=== PATIENT | male | born 1950 | race Caucasian/White ===

== ENCOUNTER 2018-04-29 13:15 | Inpatient (IN) | payer MEDICARE, OTHER, SELFPAY ==
[2018-04-29] VITALS (10 sets, daily range): BP systolic 139–195; BP diastolic 71–118; PULSE 77–106; RESP 16–20; TEMP 36.7–37.1; O2SAT 97–100; BMI 25.0; BMI 25.2
--- NOTE | 2018-04-29 13:49 | DI.RAD.S_ITS ---
PROCEDURE: XR CHEST 1V INDICATIONS: chest pain TECHNIQUE: One view of the chest was acquired. COMPARISON: [facility], CHEST 1 VIEW, 02/02/2018, 17:12. [facility], CHEST 1 VIEW, 12/29/2017, 17:36. [facility], CHEST 1 VIEW, 01/01/2017, 10:48. FINDINGS: Surgical changes and devices: None. Lungs and pleura: No pleural effusions or pneumothorax. Lungs are clear. Mediastinum: Mediastinal contours appear normal. Heart size is normal. Bones and chest wall: No suspicious bony lesions. Overlying soft tissues appear unremarkable. IMPRESSION: Source of chest pain is not seen. Dictated by: Uzair Parra M.D. on 04/29/2018 at 14:18 Approved by: Uzair Parra M.D. on 04/29/2018 at 14:18
--- NOTE | 2018-04-29 13:50 | ED.WEAKNESS ---
HPI - Weakness General Chief complaint: Extremity Problem,Nontraumatic Stated complaint: Muscle cramps, SOB Time Seen by Provider: 04/29/18 13:22 Source: patient and EMS Mode of arrival: EMS Limitations: no limitations History of Present Illness HPI Narrative: 67-year-old male presents to the emergency department today with a chief complaint of muscle cramps and generalized fatigue with weakness that started last night. He was here under similar circumstances a few months ago and transferred to [facility] for non ST elevated [place] and acute kidney injury. He denies any fever or chills but admits to nausea without vomiting. MD Complaint: generalized weakness and lack of energy Onset (ago): hour(s) Duration: constant Location: generalized Migration: none Severity: moderate Related Data Home Medications Medication Instructions Recorded Confirmed oxybutynin chloride 15 mg PO QDAY #0 03/13/17 04/29/18 cholecalciferol (vitamin D3) 1,000 unit PO DAILY #0 08/13/17 04/29/18 [Vitamin D3] aspirin 81 mg PO QDAY #0 01/03/18 04/29/18 amlodipine 10 mg PO DAILY #0 03/04/18 04/29/18 ascorbic acid (vitamin C) 500 mg PO QDAY #0 03/04/18 04/29/18 Glucose: Test Strips 1 strip MISCELLANEOUS DIRECTED 04/29/18 04/29/18 glipizide 2.5 mg PO BID 04/29/18 04/29/18 losartan [Cozaar] 50 mg PO QDAY 04/29/18 04/29/18 Previous Rx's Medication Instructions Recorded duloxetine [Cymbalta] 30 mg PO BID #180 cap 10/25/17 gabapentin [Neurontin] 2 tab PO TID #180 tab 01/20/18 fluticasone 1 spray INTRANASAL BID #16 gm 03/04/18 isosorbide mononitrate 60 mg PO QAM #30 tab 03/04/18 metoprolol succinate ER 200 mg 200 mg PO QDAY #30 tab 04/04/18 tablet,extended release 24 hr Allergies Allergy/AdvReac Type Severity Reaction Status Date / Time latex Allergy Mild RASH/ITCH Verified 04/29/18 13:27 (tape) pollen extracts Allergy Mild SINUS AND Verified 04/29/18 13:27 [POLLEN EXTRACTS] CHEST CONGESTION adhesive tape [ADHESIVE TAPE] AdvReac Unknown ITCHY Verified 04/29/18 13:27 Review of Systems Review of Systems All systems reviewed & are unremarkable except as noted in HPI and below Constitutional Denies chills, Denies fever(s), Denies lethargy and Denies weakness Eyes Denies change in vision, Denies eye discharge, Denies irritation and Denies loss of vision ENT Ears, Nose, Mouth, and Throat: Denies change in voice, Denies neck pain and Denies sore throat Cardiovascular Reports chest pain, Reports chest pain at rest, Denies irregular heart rhythm, Denies lightheadedness, Denies palpitations, Reports dyspnea, Reports dyspnea on exertion and Denies orthopnea Respiratory Denies cough, Reports dyspnea, Reports dyspnea on exertion and Denies wheezing Gastrointestinal Gastrointestinal: Denies abdominal pain, Denies change in bowel habits, Denies diarrhea, Denies nausea and Denies vomiting Genitourinary Denies hematuria, Denies flank pain, Denies urinary incontinence and Denies urinary urgency Musculoskeletal Reports muscle cramps and Denies neck pain Integumentary/Breasts Denies pruritus, Denies erythema, Denies rash and Denies wounds Neurologic Denies confusion, Denies loss of vision and Denies weakness Psychiatric Denies anxiety, Denies confusion, Denies depression, Denies homicidal ideation and Denies suicidal ideation Endocrine Denies palpitations Hematologic/Lymphatic Denies easy bruising Allergic/Immunologic Denies wheezing PFSH Medical History Anxiety (Chronic Unknown) BPH (benign prostatic hyperplasia) (Chronic Unknown) Chronic pain syndrome (Chronic Unknown) Chronic renal insufficiency (Chronic Unknown) Coronary artery disease (Chronic Unknown) Depression (Chronic Unknown) Diabetes (Chronic Unknown) GERD (gastroesophageal reflux disease) (Chronic Unknown) Hyperlipemia (Chronic Unknown) Hypertension (Chronic Unknown) Low back pain (Chronic Unknown) Peripheral neuropathy (Chronic Unknown) Rheumatoid arthritis (Chronic Unknown) History of ETOH abuse (Resolved Unknown) Surgical History History of back surgery (Resolved ~2012) Status post hernia repair Status post knee surgery Family History Mother Stroke Father Cancer Social History Smoking Status: Current every day smoker Exam Narrative Exam Narrative: 67-year-old male in moderate distress, cramping and pain Initial Vital Signs Initial Vital Signs: Vital Signs Temperature 98.2 F 04/29/18 13:24 Pulse Rate 104 H 04/29/18 13:24 Respiratory Rate 20 04/29/18 13:24 Blood Pressure 160/116 H 04/29/18 13:24 Pulse Oximetry 98 04/29/18 13:24 Const General: cooperative, well developed and acute distress Nutritional Appearance: well nourished Orientation: alert, awake, oriented x3 and not confused [facility] Head: normocephalic and atraumatic Ears: external ears normal and TM's normal bilaterally Nose: external nose normal and No nasal discharge Face and sinus: sinuses nontender, face symmetric, no sinus tenderness and No dry mucous membranes Mouth: oral mucosae normal and moist mucous membranes Teeth and gingiva: dentition normal Throat: tonsils normal and uvula midline Neck Neck: normal visual inspection, trachea midline, No lymphadenopathy, No midline deformity and No JVD Lymphatic: No lymphedema Resp Effort & Inspection: normal respiratory effort, able to speak in complete sentences, no respiratory distress and no use of accessory muscles Auscultation: clear to auscultation bilaterally, no rales, no rhonchi and no wheezes GI Inspection: non-distended Palpation: soft, no hepatosplenomegaly, No guarding, No pulsatile mass and No tender Auscultation: normal bowel sounds Back/Spine/Pelvis Back: No CVA tenderness Cervical Spine: cervical ROM normal and No pain with cervical ROM Thoracic/Lumbar Spine: thoracic and lumbar spine normal to inspection Skin General: no rashes or lesions noted, No jaundice and No petechiae Neuro General: alert, oriented x3, gait normal and no focal motor deficits Speech: speech normal Psych Appearance: well kempt Mental Status: mental status grossly normal Attitude: cooperative Thought Content: normal and suicidality Judgment: judgment good Scores HEART Score Heart Score history: Slightly Suspicious Heart Score EKG: Non-Specific repolarization disturbance Heart Score Age: > or = 65 years old Heart Score risk factors: > 3 risk factors or hx of atherosclerotic disease Heart Score troponin: > 3 times normal limit Heart Score Total: 7 Course Orders Ordered: ED Orders 04/29/18 13:49 XR chest 1V Stat EKG-12 Lead Stat 04/29/18 14:05 Complete Blood Count AUTO DIFF Stat Comprehensive Metabolic Panel Stat Lipase Stat T4 Thyroxine Stat Thyroid Stimulating Hormone Stat Troponin with CK Cardiac Panel Stat Heparin Sodium/Dextrose (Heparin Drip) 25,000 unit in 500 mls @ 20.14 mls/hr IV CONT MINA; Protocol Last Admin: 04/29/18 15:02 Dose: Nitroglycerin (Nitrostat) 0.4 mg SL [id number] PRN PRN Reason: Chest Pain Last Admin: 04/29/18 14:56 Dose: 0.4 mg Discontinued Medications Aspirin (Aspirin Chew) 324 mg PO NOW ONE Stop: 04/29/18 13:49 Last Admin: 04/29/18 13:58 Dose: 324 mg Heparin Sodium (Porcine) (Heparin) 5,000 unit 60 unit/kg (5000 unit) IV NOW ONE Stop: 04/29/18 14:47 Last Admin: 04/29/18 14:57 Dose: 5,000 unit Sodium Chloride (Normal Saline 0.9%) 1,000 mls @ 1,000 mls/hr IV BOLUS ONE Stop: 04/29/18 14:49 Last Admin: 04/29/18 13:58 Dose: 1,000 mls/hr Metoprolol Tartrate (Lopressor) 50 mg PO NOW ONE Stop: 04/29/18 14:47 Last Admin: 04/29/18 15:09 Dose: Metoprolol Tartrate (Lopressor) 50 mg PO NOW ONE Stop: 04/29/18 15:05 Last Admin: 04/29/18 15:06 Dose: 50 mg Consultations Consultation #1: Dr. Odom at [facility] Cardiology returns page. Description of HPI, EKG, labs not suggestive of ischmia as etiology of symptoms Consultation #2: Dr. Santos happy to accept patient into OBS Vital Signs - 8 hr 04/29/18 13:24 04/29/18 13:40 04/29/18 14:23 Temperature 98.2 F Pulse Rate 104 H 104 H 100 H Respiratory Rate 20 19 18 Blood Pressure 160/116 H Blood Pressure [Left Arm] 155/79 H 156/71 H Pulse Oximetry 98 100 99 04/29/18 14:56 04/29/18 15:07 04/29/18 15:33 Temperature Pulse Rate 103 H 106 H 102 H Respiratory Rate 20 Blood Pressure 161/72 H 139/73 H Blood Pressure [Left Arm] 195/82 H Pulse Oximetry 100 MDM - Weakness Differential Diagnosis Differential diagnosis: Likely acute myocardial infarction, anemia, hypoglycemia, hypothyroidism, rhabdomyolysis, sepsis, dehydration and other Medical Records Attestation: I reviewed the patient's medical records. Lab Data Attestation: I reviewed the patient's lab results. Result diagrams: 04/29/18 14:05 04/29/18 14:05 Lab Results 04/29/18 04/29/18 04/29/18 Range/Units 14:05 14:05 14:05 WBC 13.2 H (4.5-11.0) X10^3/uL RBC 4.54 (4.5-5.9) X10^6/uL Hgb 15.0 (13.5-17.5) g/dL Hct 42.6 (41-53) % MCV 93.6 (80-100) fL MCH 33.1 (26-34) PG MCHC 35.3 (30-36) % RDW 14.2 (11.6-14.8) % Plt Count 176 (150-400) X10^3/uL Neut % (Auto) 69.6 (50-75) % Lymph % (Auto) 21.9 L (25-40) % [place] % (Auto) 8.2 (3-14) % Eos % (Auto) 0.0 L (2-4) % Baso % (Auto) 0.3 (0-2) % Neut # (Auto) 9200 H (1320-5702) /uL Sodium 132 L (137-145) mmol/L Potassium 4.5 (3.4-5.1) mmol/L Chloride 96 L (98-107) mmol/L Carbon Dioxide 18 L (22-32) mmol/L BUN 42 H (9-20) mg/dL Creatinine 2.20 H (0.66-1.25) mg/dL Estimated GFR 30.2 L (>60) mL/min BUN/Creatinine Ratio 19.1 (6-22) Glucose 121 H (80-110) mg/dL Calcium 8.8 (8.4-10.2) mg/dL Total Bilirubin 2.1 H (0.2-1.3) mg/dL AST 92 H (17-59) IU/L ALT 34 (21-72) IU/L Alkaline Phosphatase 94 (38-126) U/L Total Creatine Kinase 2176 H (55-170) U/L Troponin I 0.187 H* (0.01-0.034) ng/mL Total Protein 7.6 (6.3-8.2) g/dL Albumin 4.5 (3.5-5.0) g/dL Globulin 3.1 (1.7-4.1) g/dL Albumin/Globulin Ratio 1.5 (1.0-2.8) Lipase 76 (23-300) U/L TSH 1.45 (0.47-4.68) uIU/mL Thyroxine (T4) 7.28 (5.5-11.0) ug/dL Imaging Data Chest x-ray: Attestation: I personally reviewed and interpreted this imaging study as follows: Radiologist's impression: PROCEDURE: XR CHEST 1V INDICATIONS: chest pain TECHNIQUE: One view of the chest was acquired. COMPARISON: [facility], CHEST 1 VIEW, 02/02/2018, 17:12. [facility], CHEST 1 VIEW, 12/29/2017, 17:36. [facility], CHEST 1 VIEW, 01/01/2017, 10:48. FINDINGS: Surgical changes and devices: None. Lungs and pleura: No pleural effusions or pneumothorax. Lungs are clear. Mediastinum: Mediastinal contours appear normal. Heart size is normal. Bones and chest wall: No suspicious bony lesions. Overlying soft tissues appear unremarkable. IMPRESSION: Source of chest pain is not seen. Dictated by: Uzair Parra M.D. on 04/29/2018 at 14:18 Approved by: Uzair Parra M.D. on 04/29/2018 at 14:18 ECG Data Attestation: I personally reviewed and interpreted this ECG as follows: Prior ECG tracings: available for review Interpretation: Sinus tachycardia at 1:04 a.m.. Large peaked septal T-waves. No ectopy MDM Narrative Medical decision making narrative: Patient presents under similar symptoms as his last admission, with head to toe muscle cramps and generalized weakness, however bleeding into that admission he had nausea, vomiting and diarrhea but denies any gastroenteritis this time around. His pain is sharp, right anterior and reproducible. Discussion with Cardiology and we share opinion that story suggests etiology other than cardiac event Discharge Plan Departure Patient Disposition: Admitted As Inpatient Clinical Impression: Acute kidney injury, Elevated troponin Admit Date/Time: 04/29/18 16:05 Admit Provider: Lebron Santos
--- NOTE | 2018-04-29 13:53 | ED_ITS ---
HPI - Weakness General Chief complaint: Extremity Problem,Nontraumatic Stated complaint: Muscle cramps, SOB Time Seen by Provider: 04/29/18 13:22 Source: patient and EMS Mode of arrival: EMS Limitations: no limitations History of Present Illness HPI Narrative: 67-year-old male presents to the emergency department today with a chief complaint of muscle cramps and generalized fatigue with weakness that started last night. He was here under similar circumstances a few months ago and transferred to [facility] for non ST elevated [place] and acute kidney injury. He denies any fever or chills but admits to nausea without vomiting. MD Complaint: generalized weakness and lack of energy Onset (ago): hour(s) Duration: constant Location: generalized Migration: none Severity: moderate Related Data Home Medications Medication Instructions Recorded Confirmed oxybutynin chloride 15 mg PO QDAY #0 03/13/17 04/29/18 cholecalciferol (vitamin D3) 1,000 unit PO DAILY #0 08/13/17 04/29/18 [Vitamin D3] aspirin 81 mg PO QDAY #0 01/03/18 04/29/18 amlodipine 10 mg PO DAILY #0 03/04/18 04/29/18 ascorbic acid (vitamin C) 500 mg PO QDAY #0 03/04/18 04/29/18 Glucose: Test Strips 1 strip MISCELLANEOUS DIRECTED 04/29/18 04/29/18 glipizide 2.5 mg PO BID 04/29/18 04/29/18 losartan [Cozaar] 50 mg PO QDAY 04/29/18 04/29/18 Previous Rx's Medication Instructions Recorded duloxetine [Cymbalta] 30 mg PO BID #180 cap 10/25/17 gabapentin [Neurontin] 2 tab PO TID #180 tab 01/20/18 fluticasone 1 spray INTRANASAL BID #16 gm 03/04/18 isosorbide mononitrate 60 mg PO QAM #30 tab 03/04/18 metoprolol succinate ER 200 mg 200 mg PO QDAY #30 tab 04/04/18 tablet,extended release 24 hr Allergies Allergy/AdvReac Type Severity Reaction Status Date / Time latex Allergy Mild RASH/ITCH Verified 04/29/18 13:27 (tape) pollen extracts Allergy Mild SINUS AND Verified 04/29/18 13:27 [POLLEN EXTRACTS] CHEST CONGESTION adhesive tape [ADHESIVE TAPE] AdvReac Unknown ITCHY Verified 04/29/18 13:27 Review of Systems Review of Systems All systems reviewed & are unremarkable except as noted in HPI and below Constitutional Denies chills, Denies fever(s), Denies lethargy and Denies weakness Eyes Denies change in vision, Denies eye discharge, Denies irritation and Denies loss of vision ENT Ears, Nose, Mouth, and Throat: Denies change in voice, Denies neck pain and Denies sore throat Cardiovascular Reports chest pain, Reports chest pain at rest, Denies irregular heart rhythm, Denies lightheadedness, Denies palpitations, Reports dyspnea, Reports dyspnea on exertion and Denies orthopnea Respiratory Denies cough, Reports dyspnea, Reports dyspnea on exertion and Denies wheezing Gastrointestinal Gastrointestinal: Denies abdominal pain, Denies change in bowel habits, Denies diarrhea, Denies nausea and Denies vomiting Genitourinary Denies hematuria, Denies flank pain, Denies urinary incontinence and Denies urinary urgency Musculoskeletal Reports muscle cramps and Denies neck pain Integumentary/Breasts Denies pruritus, Denies erythema, Denies rash and Denies wounds Neurologic Denies confusion, Denies loss of vision and Denies weakness Psychiatric Denies anxiety, Denies confusion, Denies depression, Denies homicidal ideation and Denies suicidal ideation Endocrine Denies palpitations Hematologic/Lymphatic Denies easy bruising Allergic/Immunologic Denies wheezing PFSH Medical History Anxiety (Chronic Unknown) BPH (benign prostatic hyperplasia) (Chronic Unknown) Chronic pain syndrome (Chronic Unknown) Chronic renal insufficiency (Chronic Unknown) Coronary artery disease (Chronic Unknown) Depression (Chronic Unknown) Diabetes (Chronic Unknown) GERD (gastroesophageal reflux disease) (Chronic Unknown) Hyperlipemia (Chronic Unknown) Hypertension (Chronic Unknown) Low back pain (Chronic Unknown) Peripheral neuropathy (Chronic Unknown) Rheumatoid arthritis (Chronic Unknown) History of ETOH abuse (Resolved Unknown) Surgical History History of back surgery (Resolved ~2012) Status post hernia repair Status post knee surgery Family History Mother Stroke Father Cancer Social History Smoking Status: Current every day smoker Exam Narrative Exam Narrative: 67-year-old male in moderate distress, cramping and pain Initial Vital Signs Initial Vital Signs: Vital Signs Temperature 98.2 F 04/29/18 13:24 Pulse Rate 104 H 04/29/18 13:24 Respiratory Rate 20 04/29/18 13:24 Blood Pressure 160/116 H 04/29/18 13:24 Pulse Oximetry 98 04/29/18 13:24 Const General: cooperative, well developed and acute distress Nutritional Appearance: well nourished Orientation: alert, awake, oriented x3 and not confused [facility] Head: normocephalic and atraumatic Ears: external ears normal and TM's normal bilaterally Nose: external nose normal and No nasal discharge Face and sinus: sinuses nontender, face symmetric, no sinus tenderness and No dry mucous membranes Mouth: oral mucosae normal and moist mucous membranes Teeth and gingiva: dentition normal Throat: tonsils normal and uvula midline Neck Neck: normal visual inspection, trachea midline, No lymphadenopathy, No midline deformity and No JVD Lymphatic: No lymphedema Resp Effort & Inspection: normal respiratory effort, able to speak in complete sentences, no respiratory distress and no use of accessory muscles Auscultation: clear to auscultation bilaterally, no rales, no rhonchi and no wheezes GI Inspection: non-distended Palpation: soft, no hepatosplenomegaly, No guarding, No pulsatile mass and No tender Auscultation: normal bowel sounds Back/Spine/Pelvis Back: No CVA tenderness Cervical Spine: cervical ROM normal and No pain with cervical ROM Thoracic/Lumbar Spine: thoracic and lumbar spine normal to inspection Skin General: no rashes or lesions noted, No jaundice and No petechiae Neuro General: alert, oriented x3, gait normal and no focal motor deficits Speech: speech normal Psych Appearance: well kempt Mental Status: mental status grossly normal Attitude: cooperative Thought Content: normal and suicidality Judgment: judgment good Scores HEART Score Heart Score history: Slightly Suspicious Heart Score EKG: Non-Specific repolarization disturbance Heart Score Age: > or = 65 years old Heart Score risk factors: > 3 risk factors or hx of atherosclerotic disease Heart Score troponin: > 3 times normal limit Heart Score Total: 7 Course Orders Ordered: ED Orders 04/29/18 13:49 XR chest 1V Stat EKG-12 Lead Stat 04/29/18 14:05 Complete Blood Count AUTO DIFF Stat Comprehensive Metabolic Panel Stat Lipase Stat T4 Thyroxine Stat Thyroid Stimulating Hormone Stat Troponin with CK Cardiac Panel Stat Heparin Sodium/Dextrose (Heparin Drip) 25,000 unit in 500 mls @ 20.14 mls/hr IV CONT MINA; Protocol Last Admin: 04/29/18 15:02 Dose: Nitroglycerin (Nitrostat) 0.4 mg SL [id number] PRN PRN Reason: Chest Pain Last Admin: 04/29/18 14:56 Dose: 0.4 mg Discontinued Medications Aspirin (Aspirin Chew) 324 mg PO NOW ONE Stop: 04/29/18 13:49 Last Admin: 04/29/18 13:58 Dose: 324 mg Heparin Sodium (Porcine) (Heparin) 5,000 unit 60 unit/kg (5000 unit) IV NOW ONE Stop: 04/29/18 14:47 Last Admin: 04/29/18 14:57 Dose: 5,000 unit Sodium Chloride (Normal Saline 0.9%) 1,000 mls @ 1,000 mls/hr IV BOLUS ONE Stop: 04/29/18 14:49 Last Admin: 04/29/18 13:58 Dose: 1,000 mls/hr Metoprolol Tartrate (Lopressor) 50 mg PO NOW ONE Stop: 04/29/18 14:47 Last Admin: 04/29/18 15:09 Dose: Metoprolol Tartrate (Lopressor) 50 mg PO NOW ONE Stop: 04/29/18 15:05 Last Admin: 04/29/18 15:06 Dose: 50 mg Consultations Consultation #1: Dr. Odom at [facility] Cardiology returns page. Description of HPI , EKG, labs not suggestive of ischmia as etiology of symptoms Consultation #2: Dr. Santos happy to accept patient into OBS Vital Signs - 8 hr 04/29/18 13:24 04/29/18 13:40 04/29/18 14:23 Temperature 98.2 F Pulse Rate 104 H 104 H 100 H Respiratory Rate 20 19 18 Blood Pressure 160/116 H Blood Pressure [Left Arm] 155/79 H 156/71 H Pulse Oximetry 98 100 99 04/29/18 14:56 04/29/18 15:07 04/29/18 15:33 Temperature Pulse Rate 103 H 106 H 102 H Respiratory Rate 20 Blood Pressure 161/72 H 139/73 H Blood Pressure [Left Arm] 195/82 H Pulse Oximetry 100 MDM - Weakness Differential Diagnosis Differential diagnosis: Likely acute myocardial infarction, anemia, hypoglycemia , hypothyroidism, rhabdomyolysis, sepsis, dehydration and other Medical Records Attestation: I reviewed the patient's medical records. Lab Data Attestation: I reviewed the patient's lab results. Result diagrams: 04/29/18 14:05 04/29/18 14:05 Lab Results 04/29/18 04/29/18 04/29/18 Range/Units 14:05 14:05 14:05 WBC 13.2 H (4.5-11.0) X10^3/uL RBC 4.54 (4.5-5.9) X10^6/uL Hgb 15.0 (13.5-17.5) g/dL Hct 42.6 (41-53) % MCV 93.6 (80-100) fL MCH 33.1 (26-34) PG MCHC 35.3 (30-36) % RDW 14.2 (11.6-14.8) % Plt Count 176 (150-400) X10^3/uL Neut % (Auto) 69.6 (50-75) % Lymph % (Auto) 21.9 L (25-40) % [place] % (Auto) 8.2 (3-14) % Eos % (Auto) 0.0 L (2-4) % Baso % (Auto) 0.3 (0-2) % Neut # (Auto) 9200 H (8919-8276) /uL Sodium 132 L (137-145) mmol/L Potassium 4.5 (3.4-5.1) mmol/L Chloride 96 L (98-107) mmol/L Carbon Dioxide 18 L (22-32) mmol/L BUN 42 H (9-20) mg/dL Creatinine 2.20 H (0.66-1.25) mg/dL Estimated GFR 30.2 L (>60) mL/min BUN/Creatinine Ratio 19.1 (6-22) Glucose 121 H (80-110) mg/dL Calcium 8.8 (8.4-10.2) mg/dL Total Bilirubin 2.1 H (0.2-1.3) mg/dL AST 92 H (17-59) IU/L ALT 34 (21-72) IU/L Alkaline Phosphatase 94 (38-126) U/L Total Creatine Kinase 2176 H (55-170) U/L Troponin I 0.187 H* (0.01-0.034) ng/mL Total Protein 7.6 (6.3-8.2) g/dL Albumin 4.5 (3.5-5.0) g/dL Globulin 3.1 (1.7-4.1) g/dL Albumin/Globulin Ratio 1.5 (1.0-2.8) Lipase 76 (23-300) U/L TSH 1.45 (0.47-4.68) uIU/mL Thyroxine (T4) 7.28 (5.5-11.0) ug/dL Imaging Data Chest x-ray: Attestation: I personally reviewed and interpreted this imaging study as follows: Radiologist's impression: PROCEDURE: XR CHEST 1V INDICATIONS: chest pain TECHNIQUE: One view of the chest was acquired. COMPARISON: [facility], CHEST 1 VIEW, 02/02/2018, 17:12. [facility], CHEST 1 VIEW, 12/29/2017, 17:36. [facility], CHEST 1 VIEW, 01/01/2017, 10:48. FINDINGS: Surgical changes and devices: None. Lungs and pleura: No pleural effusions or pneumothorax. Lungs are clear. Mediastinum: Mediastinal contours appear normal. Heart size is normal. Bones and chest wall: No suspicious bony lesions. Overlying soft tissues appear unremarkable. IMPRESSION: Source of chest pain is not seen. Dictated by: Uzair Parra M.D. on 04/29/2018 at 14:18 Approved by: Uzair Parra M.D. on 04/29/2018 at 14:18 ECG Data Attestation: I personally reviewed and interpreted this ECG as follows: Prior ECG tracings: available for review Interpretation: Sinus tachycardia at 1:04 a.m.. Large peaked septal T-waves. No ectopy MDM Narrative Medical decision making narrative: Patient presents under similar symptoms as his last admission, with head to toe muscle cramps and generalized weakness, however bleeding into that admission he had nausea, vomiting and diarrhea but denies any gastroenteritis this time around. His pain is sharp, right anterior and reproducible. Discussion with Cardiology and we share opinion that story suggests etiology other than cardiac event Discharge Plan Departure Patient Disposition: Admitted As Inpatient Clinical Impression: Acute kidney injury, Elevated troponin Admit Date/Time: 04/29/18 16:05 Admit Provider: Lebron Santos
[2018-04-29] MEDS: SODIUM CHLORIDE 0.9% 1,000 ML 1000 ML IV (13:58)
[2018-04-29] MEDS: ASPIRIN 81 MG TAB 324 MG PO (13:58)
--- NOTE | 2018-04-29 14:14 | PC.NURSE ---
Pt reports severe intermittent all over cramping in the legs, arms, and chest. States chest pain feels tight and reports he becomes short of breath at this time. He reports he has had a previous episode of this cramping and was hospitalized for 4 days, but cannot recall his diagnosis at that time.
[2018-04-29 14:21] LABS: Add Manual Diff / Slide Review NO; Basophils Percent Auto 0.3 % (0-2); Hematocrit 42.6 % (41-53); Lymphocytes Percent Auto 21.9 % (25-40); Mean Corpuscular HGB Conc 35.3 % (30-36); Mean Corpuscular Hemoglobin 33.1 PG (26-34); Mean Corpuscular Volume 93.6 fL (80-100); Monocytes Percent Auto 8.2 % (3-14); Neutrophils Absolute Auto 9200 /uL (3000-5900); Neutrophils Percent Auto 69.6 % (50-75); Platelet Count 176 X10^3/uL (150-400); Red Blood Cell Count 4.54 X10^6/uL (4.5-5.9); Red Cell Distribution Width 14.2 % (11.6-14.8); White Blood Cell Count 13.2 X10^3/uL (4.5-11.0)
[2018-04-29 14:27] LABS: Alanine Aminotransferase 34 IU/L (21-72); Albumin 4.5 g/dL (3.5-5.0); Albumin Globulin Ratio 1.5 (1.0-2.8); Alkaline Phosphatase 94 U/L (38-126); Aspartate Aminotransferase 92 IU/L (17-59); BUN Creatinine Ratio 19.1 (6-22); Bilirubin Total 2.1 mg/dL (0.2-1.3); Blood Urea Nitrogen 42 mg/dL (9-20); Calcium 8.8 mg/dL (8.4-10.2); Carbon Dioxide 18 mmol/L (22-32); Chloride 96 mmol/L (98-107); Estimated Glomerular Filt Rate 30.2 mL/min (>60); Globulin 3.1 g/dL (1.7-4.1); Glucose 121 mg/dL (80-110); HEMOLYSIS 36 (0-50); Lipase 76 U/L (23-300); Potassium 4.5 mmol/L (3.4-5.1); Sodium 132 mmol/L (137-145); Total Protein 7.6 g/dL (6.3-8.2)
[2018-04-29 14:33] LABS: Creatine Kinase 2176 U/L (55-170)
[2018-04-29 14:43] LABS: Troponin I 0.187 ng/mL (0.01-0.034)
[2018-04-29 14:47] LABS: T4 Total Thyroxine 7.28 ug/dL (5.5-11.0)
[2018-04-29] MEDS: NITROGLYCERIN 0.4 MG SL TAB SL (14:56)
[2018-04-29] MEDS: HEPARIN 5,000 UNIT/ML VIAL 5000 UNIT IV (14:57)
[2018-04-29 15:01] LABS: Thyroid Stimulating Hormone 1.45 uIU/mL (0.47-4.68)
[2018-04-29] MEDS: METOPROLOL 25 MG TABLET 50 MG PO (15:06)
--- NOTE | 2018-04-29 20:17 | P.HP_ITS ---
History of Present Illness Date Patient Seen: 04/29/18 Time Patient Seen: 20:16 Chief complaint: Acute kidney injury, elevated Troponin Narrative: 67-year-old male presents with nausea intractable and muscle spasms. Symptoms started last night he started having nausea and dry heaves in good. Then developed muscle spasms throughout his whole body finally came into the emergency room today because of worsening symptoms. He was hydrated and given medication for nausea which has improved symptoms but he also complained of some chest pain is troponin was elevated. Patient had a similar presentation a couple of months ago actually ended up having an endoscopy part march at [facility] which was unremarkable. When he was here back in January with the nausea and vomiting we thought at that time it might be hyperemesis syndrome from cannabis but he says he has not had any cannabis for the past week and a half. On his previous hospitalization he had an echo showed moderate aortic stenosis and had a treadmill last about 20 years ago. He does have hypertension and has had difficult time controlling that Patient History Medical History Aortic stenosis (Chronic) Anxiety (Chronic Unknown) BPH (benign prostatic hyperplasia) (Chronic Unknown) Chronic pain syndrome (Chronic Unknown) Chronic renal insufficiency (Chronic Unknown) Depression (Chronic Unknown) Diabetes (Chronic Unknown) GERD (gastroesophageal reflux disease) (Chronic Unknown) Hyperlipemia (Chronic Unknown) Hypertension (Chronic Unknown) Low back pain (Chronic Unknown) Peripheral neuropathy (Chronic Unknown) Rheumatoid arthritis (Chronic Unknown) Coronary artery disease (Suspected Unknown) History of ETOH abuse (Resolved Unknown) Surgical History History of back surgery (Resolved ~2012) Status post hernia repair Status post knee surgery Family & Social History Social History: household members none Prior Living Arrangements House Safety & Behavioral: Feels Safe in Current Yes Environment Been Physically Hurt or No Threatened By a Person Suicidal Ideation Description None Suicide Plan Description No Plan Tobacco & Substance use: Tobacco type cannabis/marijuana Smoking Status Current every day smoker Substance Use Type marijuana Meds Home Medications Medication Instructions Recorded Confirmed Type oxybutynin chloride 15 mg PO QDAY #0 03/13/17 04/29/18 History cholecalciferol (vitamin D3) 1,000 unit PO DAILY #0 08/13/17 04/29/18 History [Vitamin D3] duloxetine [Cymbalta] 30 mg PO BID #180 cap 10/25/17 04/29/18 Rx aspirin 81 mg PO QDAY #0 01/03/18 04/29/18 History gabapentin [Neurontin] 2 tab PO TID #180 tab 01/20/18 04/29/18 Rx amlodipine 10 mg PO DAILY #0 03/04/18 04/29/18 History ascorbic acid (vitamin C) 500 mg PO QDAY #0 03/04/18 04/29/18 History fluticasone 1 spray INTRANASAL BID #16 gm 03/04/18 04/29/18 Rx isosorbide mononitrate 60 mg PO QAM #30 tab 03/04/18 04/29/18 Rx metoprolol succinate ER 200 mg 200 mg PO QDAY #30 tab 04/04/18 04/29/18 Rx tablet,extended release 24 hr Glucose: Test Strips 1 strip MISCELLANEOUS DIRECTED 04/29/18 04/29/18 History glipizide 2.5 mg PO BID 04/29/18 04/29/18 History losartan [Cozaar] 50 mg PO QDAY 04/29/18 04/29/18 History Allergies Allergy/AdvReac Type Severity Reaction Status Date / Time latex Allergy Mild RASH/ITCH Verified 04/29/18 13:27 (tape) pollen extracts Allergy Mild SINUS AND Verified 04/29/18 13:27 [POLLEN EXTRACTS] CHEST CONGESTION adhesive tape [ADHESIVE TAPE] AdvReac Unknown ITCHY Verified 04/29/18 13:27 Review of Systems Review of Systems All systems reviewed & are unremarkable except as noted in HPI and below Exam Vital Signs (past 8 hours): Vital Signs - 8 hr 3 04/29/18 13:24 04/29/18 13:40 04/29/18 14:23 Temperature 98.2 F Pulse Rate 104 H 104 H 100 H Respiratory Rate 20 18 Blood Pressure 160/116 H Blood Pressure [Left Arm] 155/79 H 156/71 H Blood Pressure [Right Arm] Pulse Oximetry 98 100 99 3 04/29/18 14:56 04/29/18 15:07 04/29/18 15:33 Temperature Pulse Rate 103 H 106 H 102 H Respiratory Rate 20 Blood Pressure 161/72 H 139/73 H Blood Pressure [Left Arm] 195/82 H Blood Pressure [Right Arm] Pulse Oximetry 100 3 04/29/18 16:31 Temperature Pulse Rate 83 Respiratory Rate 20 Blood Pressure Blood Pressure [Left Arm] Blood Pressure [Right Arm] 164/118 H Pulse Oximetry 97 Pulse Oximetry 97 Oxygen Delivery Method Room Air Narrative Exam Narrative: Pleasant male no acute distress HEENT exam unremarkable oral mucosa dry Neck is supple Heart regular rhythm He does have a systolic murmur Lungs are clear Abdomen soft nontender bowel sounds present no masses Lower extremities no edema Skin warm and dry Neuro exam awake alert oriented no focal deficits Objective Labs Result Diagrams: 04/29/18 14:05 04/29/18 14:05 Labs: Laboratory Results - last 24 hr 04/29/18 04/29/18 04/29/18 14:05 14:05 14:05 WBC 13.2 H RBC 4.54 Hgb 15.0 Hct 42.6 MCV 93.6 MCH 33.1 MCHC 35.3 RDW 14.2 Plt Count 176 Neut % (Auto) 69.6 Lymph % (Auto) 21.9 L [place] % (Auto) 8.2 Eos % (Auto) 0.0 L Baso % (Auto) 0.3 Neut # (Auto) 9200 H Sodium 132 L Potassium 4.5 Chloride 96 L Carbon Dioxide 18 L BUN 42 H Creatinine 2.20 H Estimated GFR 30.2 L BUN/Creatinine Ratio 19.1 Glucose 121 H Calcium 8.8 Total Bilirubin 2.1 H AST 92 H ALT 34 Alkaline Phosphatase 94 Total Creatine Kinase 2176 H Troponin I 0.187 H* Total Protein 7.6 Albumin 4.5 Globulin 3.1 Albumin/Globulin Ratio 1.5 Lipase 76 TSH 1.45 Thyroxine (T4) 7.28 Assessment & Plan Plan: Assessment/Plan Narrative: One. Elevated troponin and normal EKG questionable chest pain symptoms patient we placed on observation serial troponin will be checked. The elevated troponin might be from the skeletal muscle CPK that is elevated from the cramps 2. Elevated CPK possibly from the severe cramping. Plan to place him on IV fluids repeat check tick CPK the morning 3. Acute kidney injury seems to be most likely pre renal but will check urine for possible signs of rhabdomyolysis 4. Persistent intractable nausea now improved plan to use Zofran as needed 5. Chronic back pain plan to continue his current medications 6. Hypertension somewhat uncontrolled foot plan to put him back on his home blood pressure medications
[2018-04-29] MEDS: SODIUM CHLORIDE 0.9% 1,000 ML 100 ML IV (20:36)
[2018-04-29 20:41] LABS: Troponin I 0.149 ng/mL (0.01-0.034)
[2018-04-29] MEDS: diazePAM 5 MG TABLET PO (20:42)
[2018-04-29 21:16] LABS: WBC Urine None Seen (0-5/HPF)
[2018-04-29 21:18] LABS: Appearance Urine UA CLEAR; Bilirubin Urine UA NEGATIVE (NEGATIVE); Color Urine UA YELLOW; Glucose Urine UA NEGATIVE (Normal); Ketones Urine UA 1+ (NEGATIVE); Leukocyte Esterase Urine UA NEGATIVE (NEGATIVE); Nitrite Urine UA Negative (Negative); Occult Blood Urine UA 3+ (Negative); Protein Urine UA 2+ (Negative); Specific Gravity Urine UA 1.015 (1.000-1.035); Urobilinogen Urine UA 0.2 E.U./dL (0.2)
[2018-04-29 21:31] LABS: Bacteria Urine Occasional (0-1); Granular Casts Urine Few; Hyaline Casts Urine 1-5/LPF; RBC Urine 0-1/HPF (0-5/HPF)
[2018-04-29 21:32] LABS: Amorphous Sediment Urine 1+; Culture Indicated Urine Cult Not Indicated
--- NOTE | 2018-04-29 22:34 | PC.NURSE ---
Pt arrived from the Er at 1645. Has had relatively uneventful evening. Episode of muscle spasms this evening. ] Dr in to see, valioum given for good relief. IV fluids started as per MD orders. Call light w/in reach. Continue with plan of care.
[2018-04-29] MEDS: FLUTICASONE 120 SPRAY/16 GM SPRAY.SUSP NASAL (23:46)
[2018-04-29] MEDS: OXYCODONE IR 5 MG TABLET PO (23:48)
[2018-04-29] MEDS: glipiZIDE 5 MG TABLET 2.5 MG PO (23:50)
[2018-04-29] MEDS: AMLODIPINE 5 MG TABLET 10 MG PO (23:51)
[2018-04-29] MEDS: GABAPENTIN 600 MG TABLET 1200 MG PO (23:55)
[2018-04-30] VITALS (10 sets, daily range): BP systolic 116–160; BP diastolic 62–84; PULSE 63–77; RESP 15–20; TEMP 36.5–37.1; O2SAT 93–99
[2018-04-30] MEDS: diazePAM 5 MG TABLET PO (02:39)
[2018-04-30] MEDS: OXYCODONE IR 5 MG TABLET PO (05:20)
[2018-04-30] MEDS: SODIUM CHLORIDE 0.9% 1,000 ML 100 ML IV ×2 (05:55→16:46)
[2018-04-30 06:06] LABS: BUN Creatinine Ratio 22.4 (6-22); Blood Urea Nitrogen 38 mg/dL (9-20); Calcium 7.8 mg/dL (8.4-10.2); Carbon Dioxide 27 mmol/L (22-32); Chloride 100 mmol/L (98-107); Estimated Glomerular Filt Rate 40.7 mL/min (>60); Glucose 83 mg/dL (80-110); HEMOLYSIS < 15 (0-50); Potassium 3.9 mmol/L (3.4-5.1); Sodium 138 mmol/L (137-145)
[2018-04-30 06:12] LABS: Creatine Kinase 2098 U/L (55-170)
[2018-04-30 06:17] LABS: Troponin I 0.112 ng/mL (0.01-0.034)
[2018-04-30] MEDS: AMLODIPINE 5 MG TABLET 10 MG PO (09:50)
[2018-04-30] MEDS: FLUTICASONE 120 SPRAY/16 GM SPRAY.SUSP NASAL ×2 (09:50→20:28)
[2018-04-30] MEDS: ASPIRIN EC 81 MG TABLET PO (09:50)
[2018-04-30] MEDS: DULOXETINE 30 MG CAPSULE PO (09:50)
[2018-04-30] MEDS: METOPROLOL ER 50 MG TABLET 200 MG PO (09:51)
[2018-04-30] MEDS: ISOSORBIDE MONONITRATE ER 30 MG TABLET 60 MG PO (09:51)
[2018-04-30] MEDS: glipiZIDE 5 MG TABLET 2.5 MG PO ×2 (09:51→20:29)
[2018-04-30] MEDS: GABAPENTIN 600 MG TABLET 1200 MG PO ×3 (09:51→20:28)
[2018-04-30] MEDS: LOSARTAN 50 MG TABLET PO ×2 (09:51→20:30)
--- NOTE | 2018-04-30 13:05 | PM.PN.1 ---
Subjective Date Patient Seen: 04/30/18 Time Patient Seen: 13:06 Interval history: Still having intermittent muscle cramps Exam Vital Signs (past 8 hours): Vital Signs - 8 hr 04/30/18 05:15 04/30/18 07:00 04/30/18 07:35 Temperature 98.7 F 98.4 F Pulse Rate 75 77 Respiratory Rate 16 16 Blood Pressure 160/82 H 160/84 H Pulse Oximetry 96 95 95 Pulse Oximetry 95 Oxygen Delivery Method Room Air Oxygen Flow Rate 0 Narrative Exam Narrative: Resting comfortably HEENT exam unremarkable Lungs are clear Heart regular rhythm Abdomen soft nontender Lower extremities no edema Skin warm and dry Objective Labs Result Diagrams: 04/29/18 14:05 04/30/18 05:13 Labs: Laboratory Results - last 24 hr 04/29/18 04/29/18 04/29/18 14:05 14:05 14:05 WBC 13.2 H RBC 4.54 Hgb 15.0 Hct 42.6 MCV 93.6 MCH 33.1 MCHC 35.3 RDW 14.2 Plt Count 176 Neut % (Auto) 69.6 Lymph % (Auto) 21.9 L [place] % (Auto) 8.2 Eos % (Auto) 0.0 L Baso % (Auto) 0.3 Neut # (Auto) 9200 H Sodium 132 L Potassium 4.5 Chloride 96 L Carbon Dioxide 18 L BUN 42 H Creatinine 2.20 H Estimated GFR 30.2 L BUN/Creatinine Ratio 19.1 Glucose 121 H Calcium 8.8 Total Bilirubin 2.1 H AST 92 H ALT 34 Alkaline Phosphatase 94 Total Creatine Kinase 2176 H Troponin I 0.187 H* Total Protein 7.6 Albumin 4.5 Globulin 3.1 Albumin/Globulin Ratio 1.5 Lipase 76 TSH 1.45 Thyroxine (T4) 7.28 Urine Color Urine Appearance Urine pH Ur Specific [place] Urine Protein Urine Glucose (UA) Urine Ketones Urine Occult Blood Urine Nitrate Urine Bilirubin Urine Urobilinogen Ur Leukocyte Esterase Urine RBC Urine WBC Amorphous Sediment Urine Bacteria Hyaline Casts Granular Casts Ur Culture Indicated? Micro UA Comment 04/29/18 04/29/18 04/30/18 20:10 Unknown 05:13 WBC RBC Hgb Hct MCV MCH MCHC RDW Plt Count Neut % (Auto) Lymph % (Auto) [place] % (Auto) Eos % (Auto) Baso % (Auto) Neut # (Auto) Sodium 138 Potassium 3.9 Chloride 100 Carbon Dioxide 27 BUN 38 H Creatinine 1.70 H Estimated GFR 40.7 L BUN/Creatinine Ratio 22.4 H Glucose 83 Calcium 7.8 L Total Bilirubin AST ALT Alkaline Phosphatase Total Creatine Kinase 2098 H Troponin I 0.149 H* 0.112 H Total Protein Albumin Globulin Albumin/Globulin Ratio Lipase TSH Thyroxine (T4) Urine Color Yellow Urine Appearance Clear Urine pH 5.0 Ur Specific [place] 1.015 Urine Protein 2+ H Urine Glucose (UA) Negative Urine Ketones 1+ H Urine Occult Blood 3+ H Urine Nitrate Negative Urine Bilirubin Negative Urine Urobilinogen 0.2 Ur Leukocyte Esterase Negative Urine RBC 0-1/hpf Urine WBC None seen Amorphous Sediment 1+ Urine Bacteria Occasional (0-1) Hyaline Casts 1-5/lpf Granular Casts Few H Ur Culture Indicated? Cult not indicated Micro UA Comment Not Reportable Assessment & Plan Plan: Assessment/Plan Narrative: One. Elevated troponin and normal EKG questionable chest pain symptoms patient we placed on observation serial troponin will be checked. The elevated troponin might be from the skeletal muscle CPK that is elevated from the cramps. The troponins come back to normal I do not think that he had any ischemic issues this was all probably due to the skeletal muscle enzyme elevation and renal failure. 2. Acute rhabdomyolysis from severe muscle cramping. His CPK over 1999 he had blood noted in the urine without any red cells. Creatinine bumped up to 2.2 baseline about 1.2. Plan to continue saline diuresis with IV normal saline to help clear the CPK. The patient will be changed and patient is he needs further IV therapy to continue resolving the acute kidney failure. 3. Acute kidney injury seems to be most likely due to rhabdomyolysis 4. Persistent intractable nausea now improved plan to use Zofran as needed 5. Chronic back pain plan to continue his current medications 6. Hypertension somewhat uncontrolled. Plan to increase blood pressure medications
--- NOTE | 2018-04-30 16:57 | CM.DANOTE ---
DcP: assessment: case received, EMR reviewed and CM RN Miranda/d/c community planner met with pt. She introduced self and role. DCP template completed with info currently available. Pt is a 67 year old male who admitted yesterday late afternoon to care of hosptitalist team. Payer: Medicare and [facility] PCP: Yogi Cuadra. Dr. Santos is seeing pt, notes pt with similar presentation when last here at in January 2018. Full dx and POC are in process. P: DCPlan team will check in again with pt and follow for d/c issues and options as these become clearer.
[2018-05-01] VITALS (10 sets, daily range): BP systolic 114–152; BP diastolic 61–83; PULSE 55–73; RESP 12–18; TEMP 36.2–37.2; O2SAT 95–98
[2018-05-01] MEDS: SODIUM CHLORIDE 0.9% 1,000 ML 100 ML IV ×2 (01:58→11:48)
[2018-05-01 05:31] LABS: Add Manual Diff / Slide Review NO; Basophils Percent Auto 0.6 % (0-2); Eosinophils Percent Auto 2.3 % (2-4); Hemoglobin 12.8 g/dL (13.5-17.5); Lymphocytes Percent Auto 46.1 % (25-40); Mean Corpuscular HGB Conc 34.6 % (30-36); Mean Corpuscular Hemoglobin 33.4 PG (26-34); Mean Corpuscular Volume 96.4 fL (80-100); Monocytes Percent Auto 8.1 % (3-14); Neutrophils Absolute Auto 3300 /uL (3000-5900); Neutrophils Percent Auto 42.9 % (50-75); Platelet Count 120 X10^3/uL (150-400); Red Blood Cell Count 3.83 X10^6/uL (4.5-5.9); Red Cell Distribution Width 14.2 % (11.6-14.8); White Blood Cell Count 7.6 X10^3/uL (4.5-11.0)
[2018-05-01 05:41] LABS: Alanine Aminotransferase 37 IU/L (21-72); Albumin 3.5 g/dL (3.5-5.0); Albumin Globulin Ratio 1.3 (1.0-2.8); Alkaline Phosphatase 69 U/L (38-126); Aspartate Aminotransferase 75 IU/L (17-59); BUN Creatinine Ratio 22.3 (6-22); Bilirubin Total 0.9 mg/dL (0.2-1.3); Blood Urea Nitrogen 29 mg/dL (9-20); Carbon Dioxide 26 mmol/L (22-32); Chloride 107 mmol/L (98-107); Creatine Kinase 1023 U/L (55-170); Estimated Glomerular Filt Rate 55.4 mL/min (>60); Globulin 2.8 g/dL (1.7-4.1); Glucose 116 mg/dL (80-110); HEMOLYSIS < 15 (0-50); Potassium 4.1 mmol/L (3.4-5.1); Sodium 142 mmol/L (137-145); Total Protein 6.3 g/dL (6.3-8.2)
[2018-05-01 05:51] LABS: Troponin I 0.034 ng/mL (0.01-0.034)
[2018-05-01 05:56] LABS: CKMB % Relative Index 0.4 % (1.5-5.0); Creatine Kinase MB 4.44 ng/mL (<2.37)
--- NOTE | 2018-05-01 08:57 | PM.PN.1 ---
Subjective Date Patient Seen: 05/01/18 Time Patient Seen: 08:57 Interval history: Patient sitting comfortably in a bedside chair having breakfast. He denies any further cramping but continues to have muscle aches. Exam Vital Signs (past 8 hours): Vital Signs - 8 hr 05/01/18 04:00 05/01/18 07:00 05/01/18 08:00 Temperature 98.2 F 97.1 F L Pulse Rate 61 63 Respiratory Rate 16 12 Blood Pressure 140/75 H 151/75 H Pulse Oximetry 98 98 98 Pulse Oximetry 98 Oxygen Delivery Method Room Air Oxygen Flow Rate 0 Const General: cooperative, healthy appearing and comfortable Nutritional Appearance: average body habitus Orientation: alert, awake and oriented x3 HENMT Head: normal to inspection, normocephalic and atraumatic Eyes General: appearance normal, both eyes and all related structures Pupils: PERRL and pupil size bilaterally 2.0 Neck Neck: normal visual inspection Other: No neck vein distention or lymphadenopathy Chest Chest: normal inspection of the chest Resp Effort & Inspection: normal respiratory effort and able to speak in complete sentences Auscultation: clear to auscultation bilaterally Cardio Rate: regular rate Rhythm: regular rhythm Heart Sounds: S1 normal, S2 normal and murmur systolic II/ and at the right sternal border GI Inspection: normal to inspection Palpation: soft Auscultation: normal bowel sounds Other: Nontender Other: Voiding clear natty urine. no dysuria Back/Spine/Pelvis Thoracic/Lumbar Spine: thoracic and lumbar spine normal to inspection Skin General: no rashes or lesions noted, dry skin and warm Neuro General: alert, awake and oriented x3 Cognition: normal cognition Speech: speech normal Gait: normal gait Motor: muscle tone normal throughout Sensory Exam: no sensory deficits noted Extrem General: normal to inspection Other: Good pedal pulses and capillary refill is normal. Psych Appearance: grossly normal Mood: congruent mood Affect: normal affect Attitude: cooperative Thought Process: normal Thought Content: normal Judgment: judgment good Objective Labs Result Diagrams: 05/01/18 05:11 05/01/18 05:11 Labs: Laboratory Results - last 24 hr 05/01/18 05/01/18 05:11 05:11 WBC 7.6 RBC 3.83 L Hgb 12.8 L Hct 37.0 L MCV 96.4 MCH 33.4 MCHC 34.6 RDW 14.2 Plt Count 120 L Neut % (Auto) 42.9 L D Lymph % (Auto) 46.1 H D [place] % (Auto) 8.1 Eos % (Auto) 2.3 Baso % (Auto) 0.6 Neut # (Auto) 3300 Sodium 142 Potassium 4.1 Chloride 107 Carbon Dioxide 26 BUN 29 H Creatinine 1.30 H Estimated GFR 55.4 L BUN/Creatinine Ratio 22.3 H Glucose 116 H Calcium 8.0 L Total Bilirubin 0.9 AST 75 H ALT 37 Alkaline Phosphatase 69 Total Creatine Kinase 1023 H D CK-MB (CK-2) 4.44 H CK-MB (CK-2) Rel Index 0.4 L Troponin I 0.034 Total Protein 6.3 Albumin 3.5 Globulin 2.8 Albumin/Globulin Ratio 1.3 Assessment & Plan Plan: Assessment/Plan Narrative: 1. Elevated troponin and normal EKG: He denies having any chest pain last night or this morning. His troponins are normalizing this morning's was 0.034. Previously elevated troponins might be from the skeletal muscle CPK that is elevated from the cramps. I do not think that he had any ischemic issues and that this was all probably due to the skeletal muscle enzyme elevation and renal failure. 2. Acute rhabdomyolysis from severe muscle cramping. His CPK was over 2000 on admission and is currently 1023. Creatinine initially bumped up to 2.2 over his baseline of about 1.2. Creatinine this morning is 1.3. Magnesium and phosphorus normal. I will give him 1 more day of IV saline diuresis to continue clearing the CPK and myoglobin. He has had approximately 3 L intake over the last 24, with about 3 L output. He has been afebrile, on room air with saturations running in the mid to high 90s. 3. Acute kidney injury seems to be most likely due to rhabdomyolysis. Improving with IV hydration. 4. Persistent intractable nausea: He denies any further nausea and has not required any Zofran. This appears to be resolved. 5. Chronic back pain plan to continue his current medications. 6. Hypertension somewhat uncontrolled. Losartan increased to b.i.d..
[2018-05-01] MEDS: DULOXETINE 30 MG CAPSULE PO ×2 (09:08→20:33)
[2018-05-01] MEDS: AMLODIPINE 5 MG TABLET 10 MG PO (09:08)
[2018-05-01] MEDS: ASPIRIN EC 81 MG TABLET PO (09:08)
[2018-05-01] MEDS: GABAPENTIN 600 MG TABLET 1200 MG PO ×3 (09:09→20:33)
[2018-05-01] MEDS: FLUTICASONE 120 SPRAY/16 GM SPRAY.SUSP NASAL ×2 (09:09→20:32)
[2018-05-01] MEDS: ISOSORBIDE MONONITRATE ER 30 MG TABLET 60 MG PO (09:09)
[2018-05-01] MEDS: LOSARTAN 50 MG TABLET PO (09:09)
[2018-05-01] MEDS: glipiZIDE 5 MG TABLET 2.5 MG PO ×2 (09:09→20:34)
[2018-05-01] MEDS: OXYBUTYNIN 5 MG ER TAB 15 MG PO (09:10)
[2018-05-01] MEDS: METOPROLOL ER 50 MG TABLET 200 MG PO (09:10)
[2018-05-01 09:39] LABS: Magnesium 2.3 mg/dL (1.6-2.3); Phosphorous 3.2 mg/dL (2.3-3.7)
--- NOTE | 2018-05-01 15:57 | CM.DPC ---
DC/Continued:Patient alert and oriented. Stated that he has not had the cramping like before. Discussed home resources, and patient stated that he was independent prior to hospitalization. Stated that he lives alone, but has friends that live in [place] that can check on him, and drive him from the hospital upon discharge. Care management to continue to check progress on patient and plans for discharge. Miranda Hirsch/RN/embedded case manager Discharge Planning/Care Management CM Discharge Assessment Start: 04/30/18 16:55 Freq: Status: Active Protocol: Document 04/30/18 16:55 ITV (Rec: 04/30/18 17:01 ITV [id number]) Discharge Planning Assessment History Provided By Patient Medical Record Comment here in January 2018 with similar presentation Prior Living Arrangements House Household Members none Independent with ADL's Yes Is patient alert and oriented? Yes Review Status In Process Next Review Type Continued Stay Review 04/30/18 16:57 CM Disch. Assessment Note by Radha Soriano DcP: assessment: case received, EMR reviewed and RN Miranda/d/c transit planner met with pt. She introduced self and role. DCP template completed with info currently available. Pt is a 67 year old male who admitted yesterday late afternoon to care of hosptitalist team. Payer: Medicare and [facility] PCP: Yogi Cuadra. Dr. Santos is seeing pt, notes pt with similar presentation when last here at in January 2018. Full dx and POC are in process. P: DCPlan team will check in again with pt and follow for d/c issues and options as these become clearer. Initialized on 04/30/18 16:57 - END OF NOTE
[2018-05-02 05:00] VITALS: BP 147/70; PULSE 61; RESP 16; TEMP 36.8; O2SAT 98
[2018-05-02 06:31] LABS: Add Manual Diff / Slide Review NO; Basophils Percent Auto 0.5 % (0-2); Eosinophils Percent Auto 3.3 % (2-4); Hematocrit 34.3 % (41-53); Lymphocytes Percent Auto 44.6 % (25-40); Mean Corpuscular HGB Conc 34.9 % (30-36); Mean Corpuscular Hemoglobin 33.7 PG (26-34); Mean Corpuscular Volume 96.6 fL (80-100); Monocytes Percent Auto 7.8 % (3-14); Neutrophils Absolute Auto 2800 /uL (3000-5900); Neutrophils Percent Auto 43.8 % (50-75); Platelet Count 109 X10^3/uL (150-400); Red Blood Cell Count 3.55 X10^6/uL (4.5-5.9); Red Cell Distribution Width 13.7 % (11.6-14.8); White Blood Cell Count 6.5 X10^3/uL (4.5-11.0)
[2018-05-02 06:39] LABS: Alanine Aminotransferase 44 IU/L (21-72); Albumin 3.4 g/dL (3.5-5.0); Albumin Globulin Ratio 1.2 (1.0-2.8); Alkaline Phosphatase 64 U/L (38-126); Aspartate Aminotransferase 63 IU/L (17-59); BUN Creatinine Ratio 18.3 (6-22); Bilirubin Total 0.8 mg/dL (0.2-1.3); Blood Urea Nitrogen 22 mg/dL (9-20); Calcium 8.1 mg/dL (8.4-10.2); Carbon Dioxide 24 mmol/L (22-32); Chloride 106 mmol/L (98-107); Estimated Glomerular Filt Rate > 60.0 mL/min (>60); Globulin 2.8 g/dL (1.7-4.1); Glucose 119 mg/dL (80-110); HEMOLYSIS < 15 (0-50); Potassium 4.5 mmol/L (3.4-5.1); Sodium 140 mmol/L (137-145); Total Protein 6.2 g/dL (6.3-8.2)
[2018-05-02 06:48] LABS: Troponin I 0.013 ng/mL (0.01-0.034)
[2018-05-02 09:00] VITALS: BP 160/73; PULSE 72; RESP 16; TEMP 36.2; O2SAT 95
--- NOTE | 2018-05-02 09:49 | P.DS_ITS ---
History of Present Illness Date Patient Seen: 05/02/18 Time Patient Seen: 09:30 Chief complaint: Acute kidney injury, elevated Troponin Narrative: 67-year-old male presents with nausea intractable and muscle spasms. Symptoms started last night he started having nausea and dry heaves in good. Then developed muscle spasms throughout his whole body finally came into the emergency room today because of worsening symptoms. He was hydrated and given medication for nausea which has improved symptoms but he also complained of some chest pain is troponin was elevated. Patient had a similar presentation a couple of months ago actually ended up having an endoscopy part march at [facility] which was unremarkable. When he was here back in January with the nausea and vomiting we thought at that time it might be hyperemesis syndrome from cannabis but he says he has not had any cannabis for the past week and a half. On his previous hospitalization he had an echo showed moderate aortic stenosis and had a treadmill last about 20 years ago. He does have hypertension and has had difficult time controlling that. Discharge Providers Date of admission: 04/30/18 13:04 Primary care physician: Johanny Cuadra DO Discharge provider: CAROLA Redd Summary Discharge Diagnosis: 1. Rhabdomyolysis(acute) 2. Acute kidney injury secondary to 1. 3. Hypertension (chronic) 4. Type 2 diabetes 5. Chronic fibromyalgia 6. Coronary artery disease (chronic) Hospital Course: This is a summary of a 3 day hospitalization for this 67-year- old male patient who came in with initial complaints of intractable nausea and muscle cramps. He initially presented with total CKs greater than 2000 which have been trending down to 740. His troponin I was also elevated at 0.149, and 0.112 but I have subsequently been normal x2. These elevations in troponin is primarily believed to be from his secondary muscle degeneration. Earlier this year he had an echocardiogram which showed LV ejection fraction of 75-80% with a hyperdynamic left ventricle. In December of 2017 he had a pharmacologic stress test which did not show any evidence of ischemia with normal wall motion and left ventricular systolic function. His admission urine showed 3+ occult blood and 2+ protein. He was managed with IV fluid hydration x2 days during which time his CPKs began to decrease and his renal status improved. He has not had any further nausea or cramping since admission. His losartan was increased for management of his chronic hypertension. His diabetes is well in control during this hospitalization. His chronic fibromyalgia and coronary artery disease did not appear to impact this stay. He will be continued on his routine home medications and follow up with his primary care provider in 1 week. Exam Vital Signs (past 8 hours): Vital Signs - 8 hr 3 05/02/18 05:00 05/02/18 09:00 Temperature 98.3 F 97.1 F L Pulse Rate 61 72 Respiratory Rate 16 16 Blood Pressure 147/70 H 160/73 H Pulse Oximetry 98 95 Pulse Oximetry 95 Oxygen Delivery Method Room Air Oxygen Flow Rate 0 Narrative Exam Narrative: General: cooperative, healthy appearing and comfortable Nutritional Appearance: average body habitus Orientation: alert, awake and oriented x3 HENMT Head: normal to inspection, normocephalic and atraumatic Eyes General: appearance normal, both eyes and all related structures Pupils: PERRL and pupil size bilaterally 2.0 Neck Neck: normal visual inspection Other: No neck vein distention or lymphadenopathy Chest Chest: normal inspection of the chest Resp Effort & Inspection: normal respiratory effort and able to speak in complete sentences Auscultation: clear to auscultation bilaterally Cardio Rate: regular rate Rhythm: regular rhythm Heart Sounds: S1 normal, S2 normal and murmur systolic II/ and at the right sternal border GI Inspection: normal to inspection Palpation: soft Auscultation: normal bowel sounds Other: Nontender Other: Voiding clear natty urine. no dysuria Back/Spine/Pelvis Thoracic/Lumbar Spine: thoracic and lumbar spine normal to inspection Skin General: no rashes or lesions noted, dry skin and warm Neuro General: alert, awake and oriented x3 Cognition: normal cognition Speech: speech normal Gait: normal gait Motor: muscle tone normal throughout Sensory Exam: no sensory deficits noted Extrem General: normal to inspection Other: Good pedal pulses and capillary refill is normal. Psych Appearance: grossly normal Mood: congruent mood Affect: normal affect Attitude: cooperative Thought Process: normal Thought Content: normal Judgment: judgment good Objective Labs Result Diagrams: 05/02/18 06:10 05/02/18 06:10 Labs: Laboratory Results - last 24 hr 05/01/18 05/02/18 05/02/18 05:11 06:10 06:10 WBC 6.5 RBC 3.55 L Hgb 12.0 L Hct 34.3 L MCV 96.6 MCH 33.7 MCHC 34.9 RDW 13.7 Plt Count 109 L Neut % (Auto) 43.8 L Lymph % (Auto) 44.[address] [place] % (Auto) 7.8 Eos % (Auto) 3.3 Baso % (Auto) 0.5 Neut # (Auto) 2800 L Sodium 140 Potassium 4.5 Chloride 106 Carbon Dioxide 24 BUN 22 H Creatinine 1.20 Estimated GFR > 60.0 BUN/Creatinine Ratio 18.3 Glucose 119 H Calcium 8.1 L Phosphorus 3.2 Magnesium 2.3 Total Bilirubin 0.8 AST 63 H ALT 44 Alkaline Phosphatase 64 Troponin I 0.013 Total Protein 6.2 L Albumin 3.4 L Globulin 2.8 Albumin/Globulin Ratio 1.2 Discharge Plan Discharge Plan Patient Disposition: Home, Self-Care Provider Discharge Instructions Diet: Carb-consistent/Diabetic Diet comment: Heart healthy/cardiac. Force fluids. Avoid alcoholic/sugar free beverages Activity: As tolerated. Limit heavy exertion for the next 2 weeks. Oxygen: Room air Discharge Data Primary Care Provider: Johanny Cuadra Attending Provider: Lebron Santos Admit Date/Time: 04/30/18 13:04
[2018-05-02] MEDS: OXYBUTYNIN 5 MG ER TAB 15 MG PO (09:50)
[2018-05-02] MEDS: ISOSORBIDE MONONITRATE ER 30 MG TABLET 60 MG PO (09:50)
[2018-05-02] MEDS: ASPIRIN EC 81 MG TABLET PO (09:50)
[2018-05-02] MEDS: AMLODIPINE 5 MG TABLET 10 MG PO (09:50)
[2018-05-02] MEDS: GABAPENTIN 600 MG TABLET 1200 MG PO (09:50)
[2018-05-02] MEDS: DULOXETINE 30 MG CAPSULE PO (09:50)
[2018-05-02 09:51] VITALS: BP 160/73; PULSE 72
[2018-05-02] MEDS: LOSARTAN 50 MG TABLET PO (09:51)
[2018-05-02] MEDS: FLUTICASONE 120 SPRAY/16 GM SPRAY.SUSP NASAL (09:51)
[2018-05-02] MEDS: METOPROLOL ER 50 MG TABLET 200 MG PO (09:51)
[2018-05-02] MEDS: glipiZIDE 5 MG TABLET 2.5 MG PO (09:51)
[2018-05-02 09:56] LABS: Creatine Kinase 740 U/L (55-170)
[2018-05-02 12:05] VITALS: BP 160/78; PULSE 63; RESP 16; TEMP 37.1; O2SAT 98
--- NOTE | 2018-05-02 12:11 | PC.NURSE ---
Pt ready for discharge home. Friend will be driving him home. Pt is dressed and belongings are packed up. Went over d/c instructions with Pt-discussed d/c meds, time of last dose, reviewed info on Rhabdomyalisis, encouraged Pt to drink plenty of water to flush kidneys. Pt denies further questions and is ready to be taken out when his friend arrives to drive him home.
== END 2018-05-02 12:41 | disposition home or self-care (01) | DRG 565 ==
LOC: ED 15:07 → AC 16:08
PROVIDERS: Nurse Practitioner Acute Care; Admitting Provider Internal Medicine; Emergency Provider Emergency Medicine; Family Provider Family Medicine; PCP Family Medicine; Visit Provider Internal Medicine
DX: T79.6XXA Traumatic ischemia of muscle, initial encounter (principal); N17.9 Acute kidney failure, unspecified; I12.9 Hypertensive chronic kidney disease with stage 1 through stage 4 chronic kidney disease, or unspecified chronic kidney disease; E11.22 Type 2 diabetes mellitus with diabetic chronic kidney disease; N18.9 Chronic kidney disease, unspecified; Z79.84 Long term (current) use of oral hypoglycemic drugs
CPT/HCPCS: 36415; 36591; 71045; 80048; 80053; 81001; 82550; 82553; 83690; 83735; 84100; 84436; 84443; 84484; 85025; 93005; 93010; 96360; 99283; 99285; G0378; J1644

== ENCOUNTER → 2018-09-11 11:04 | Outpatient (CLI) | payer MEDICARE, OTHER, SELFPAY ==
[2018-04-29 17:17] VITALS: BMI 25.2
--- NOTE | 2018-09-11 | DI.MRI.S_ITS ---
PROCEDURE: MR CERVICAL SPINE WO CON INDICATIONS: CERVICAL RADICULOPATHY TECHNIQUE: Noncontrast sagittal T1 spin echo and T2 fast spin echo, sagittal STIR, foraminal oblique sagittal T2 fast spin echo, and axial gradient echo or T2 fast spin echo through the cervical spine. COMPARISON: None. FINDINGS: Image quality: Excellent. Alignment and Curvature: There is trace C3-C4, C4-C5, C5-C6 and C6 on C7 retrolisthesis. Bone Marrow: Mild reactive endplate change is noted adjacent to the C3-C4, C4-C5, C5-C6 and C6-C7 discs. Spinal Cord: Visualized spinal cord has normal size and signal. No cerebellar tonsillar herniation. Paraspinous Soft Tissues: No paravertebral masses. Prevertebral soft tissues are normal in thickness. C2-C3: Loss of disc signal and slight loss of disc height. Mild, diffuse disc bulge. Mild bilateral facet hypertrophy. Mild to moderate narrowing of the central canal. Moderate right and severe left neural foraminal narrowing with flattening deformity exiting left C3 nerve root. C3-C4: Loss of disc signal and height. Moderate, diffuse disc bulge. Mild bilateral facet and uncovertebral joint hypertrophy. Severe narrowing of the central canal without deformity cervical spinal cord. Severe bilateral neural foraminal narrowing with flattening deformity exiting C4 nerve roots. C4-C5: Loss of disc signal and height. Moderate, diffuse disc bulge. Mild bilateral facet and uncovertebral joint hypertrophy. Severe narrowing of the central canal with marked flattening deformity of the cervical spinal cord. Severe bilateral neural foraminal narrowing with flattening deformity exiting C5 nerve roots. C5-C6: Loss of disc signal and height. Moderate, diffuse disc bulge. Mild bilateral facet and uncovertebral joint hypertrophy. Severe narrowing of the central canal with marked flattening deformity of the cervical spinal cord. Severe bilateral neural foraminal narrowing with flattening deformity of the exiting C6 nerve roots. C6-C7: Loss of disc signal and height. Moderate, diffuse disc bulge. Mild bilateral facet and uncovertebral joint hypertrophy. Severe central canal narrowing with marked flattening deformity cervical spinal cord. Severe bilateral neural foraminal narrowing with flattening deformity exiting C7 nerve roots. C7-T1: Loss of disc signal. Minimal, diffuse disc bulge. Mild left facet hypertrophy. No central stenosis. Mild left neural foraminal narrowing. No neural impingement. IMPRESSION: 1. Multilevel degenerative disc disease. 2. Multilevel facet arthropathy. 3. Severe C3-C4, C4-C5, C5-C6 and C6-C7 central canal narrowing. No mild to moderate normal C2-C3 central canal narrowing. 4. Severe bilateral C3-C4, C4-C5, C5-C6 and C6-C7 neural foraminal narrowing. Moderate right and severe left C2-C3 neural foraminal narrowing. Mild left C7-T1 neural foraminal narrowing. Dictated by: Connie Gasca MD, PhD on 09/11/2018 at 12:18 Approved by: Connie Gasca MD, PhD on 09/11/2018 at 13:33
== END ==
PROVIDERS: Family Provider Family Medicine; PCP Family Medicine; Visit Provider Psychiatry & Neurology Neurology
DX: M50.11 Cervical disc disorder with radiculopathy, high cervical region (principal); M47.22 Other spondylosis with radiculopathy, cervical region; M48.02 Spinal stenosis, cervical region
CPT/HCPCS: 70543; A9579

== ENCOUNTER → 2018-09-18 16:01 | Outpatient (CLI) | payer MEDICARE, OTHER, SELFPAY ==
[2018-04-29 17:17] VITALS: BMI 25.2
--- NOTE | 2018-09-18 | DI.US.S_ITS ---
PROCEDURE: US CAROTID DOPPLER BI INDICATIONS: MILD COGNITIVE IMPAIRMENT TECHNIQUE: Color and pulse Doppler interrogation was performed of both carotid systems, with image documentation and velocity measurements. COMPARISON: None. FINDINGS: Stenosis calculations are based on SRU (Society of Radiologists in Ultrasound) criteria. Right side: Brachial blood pressure: 119/61 mm Hg. Common carotid artery peak systolic velocity: 93 cm/sec. Internal carotid artery peak systolic velocity: 99 cm/sec. Internal carotid artery end diastolic velocity: 20 cm/sec. External carotid artery peak systolic velocity: 84 cm/sec. ICA/CCA peak systolic ratio: 1.1. Villavicencio scale imaging description: Moderate scattered plaque. Percent internal carotid artery stenosis: Less than 50%. Vertebral artery: Flow direction is antegrade. Left side: Brachial blood pressure: 115/66 mm Hg. Common carotid artery peak systolic velocity: 80 cm/sec. Internal carotid artery peak systolic velocity: 130 cm/sec. Internal carotid artery end diastolic velocity: 29 cm/sec. External carotid artery peak systolic velocity: 67 cm/sec. ICA/CCA peak systolic ratio: 1.6. Villavicencio scale imaging description: Moderate scattered plaque. Percent internal carotid artery stenosis: 50-69% stenosis. Vertebral artery: Flow direction is antegrade. IMPRESSION: 1. 50-69% left internal carotid artery stenosis. 2. Less than 50% right internal carotid artery stenosis. Dictated by: Luis Alfredo Paris [facility] Interpreted: Antoinette Young MD on 09/19/2018 at 9:19 Approved by: Antoinette Young M.D. on 09/19/2018 at 10:30
== END ==
PROVIDERS: Family Provider Family Medicine; PCP Family Medicine; Visit Provider Psychiatry & Neurology Neurology
DX: I65.23 Occlusion and stenosis of bilateral carotid arteries (principal); G31.84 Mild cognitive impairment of uncertain or unknown etiology
CPT/HCPCS: 93880

== ENCOUNTER 2018-09-25 19:53 | Emergency (ER) | payer MEDICARE, OTHER, SELFPAY ==
[2018-04-29 17:17] VITALS: BMI 25.2
[2018-09-25 20:14] VITALS: BP 134/77; PULSE 60; RESP 15; TEMP 37.2; O2SAT 93; BMI 27.5
--- NOTE | 2018-09-25 20:17 | ED_ITS ---
HPI - Extremity Problem General Chief complaint: Extremity Problem,Nontraumatic Stated complaint: rt hand and arm pain, then started in left arm Time Seen by Provider: 09/25/18 20:15 Source: patient Mode of arrival: ambulatory Limitations: no limitations History of Present Illness HPI Narrative: 67-year-old male here for evaluation of left hand and arm swelling and pain. He states that it has been going on the past for 5 days. Approximately 10 days ago he head nerve conduction studies in bilateral upper extremities for evaluation of carpal tunnel syndrome. He states that the studies were done by like drugs placed on the skin. He states that there were no pokes in the skin. He states that soon after he had this symptoms he had swelling and pain and redness to his right hand which lasted only a couple days and then resolved. He states that now he has the symptoms in his left hand and left arm. No fevers. Does have discomfort with closing his left hand secondary to the swelling. No trauma. Has never had anything like this before. Has not tried anything for this prior to arrival. Related Data Home Medications Medication Instructions Recorded Confirmed oxybutynin chloride 15 mg PO QDAY #0 03/13/17 08/06/18 aspirin 81 mg PO QDAY #0 01/03/18 08/06/18 Glucose: Test Strips 1 strip MISCELLANEOUS DIRECTED 04/29/18 08/06/18 Previous Rx's Medication Instructions Recorded isosorbide mononitrate 60 mg PO QAM #30 tab 03/04/18 fluticasone 50 mcg/actuation nasal 1 spray INTRANASAL BID #16 gm 05/09/18 spray,suspension gabapentin [Neurontin] 2 tab PO TID #180 tab 06/26/18 metoprolol succinate ER 200 mg 200 mg PO QDAY #30 tab 07/02/18 tablet,extended release 24 hr duloxetine 30 mg capsule,delayed 30 mg PO BID #180 cap 07/29/18 release glipizide 5 mg tablet 2.5 mg PO BID #30 tab 07/29/18 losartan 50 mg tablet 50 mg PO BID #60 tab 07/30/18 amlodipine 10 mg tablet 10 mg PO DAILY #90 tab 08/06/18 sulfamethoxazole-trimethoprim 1 tab PO BID 7 Days #14 tab 09/25/18 [Bactrim DS] Allergies Allergy/AdvReac Type Severity Reaction Status Date / Time latex Allergy Mild RASH/ITCH Verified 09/25/18 20:14 (tape) pollen extracts Allergy Mild SINUS AND Verified 09/25/18 20:14 [POLLEN EXTRACTS] CHEST CONGESTION adhesive tape [ADHESIVE TAPE] AdvReac Unknown ITCHY Verified 09/25/18 20:14 Review of Systems Constitutional Denies headache(s) ENT Ears, Nose, Mouth, and Throat: Denies headache(s) Cardiovascular Denies chest pain and Denies dyspnea Respiratory Denies dyspnea Gastrointestinal Gastrointestinal: Denies abdominal pain Musculoskeletal Reports myalgias (Left hand left forearm), Reports arthralgias (Left wrist), Reports joint swelling (Left wrist), Reports limited range of motion (Left wrist ), Denies numbness and Reports stiffness (Left hand left wrist) Integumentary/Breasts Comments: Redness the left hand Neurologic Denies headache(s) and Denies numbness Comments: Some tingling to the left fingers Hematologic/Lymphatic Denies easy bleeding and Denies easy bruising PFSH Family History Mother Stroke Father Cancer Social History household members: none Smoking Status: Former smoker Exam Initial Vital Signs Initial Vital Signs: Vital Signs Temperature 99.0 F 09/25/18 20:14 Pulse Rate 60 09/25/18 20:14 Respiratory Rate 15 09/25/18 20:14 Blood Pressure 134/77 09/25/18 20:14 Pulse Oximetry 93 09/25/18 20:14 Const General: cooperative, healthy appearing, comfortable, well developed, well groomed and No acute distress HENMT Head: normal to inspection and normocephalic Resp Effort & Inspection: normal respiratory effort Auscultation: clear to auscultation bilaterally Cardio Rate: regular rate Rhythm: regular rhythm Pulses: radial pulses present on the left Skin Other: Redness to the dorsum of the left hand extending to just proximal to the elbow. Neuro Sensory Exam: no sensory deficits noted Extrem Other: Patient with warmth and redness and swelling to the left hand to include all of the fingers. Does have some limited range of motion left fingers secondary to the swelling. Does have limited range of motion of the left wrist secondary to pain. Left elbow unremarkable. Left shoulder unremarkable. Psych Appearance: grossly normal and well kempt Course Orders Ordered: ED Orders 09/25/18 20:45 Basic Metabolic Panel Stat Complete Blood Count AUTO DIFF Stat Discontinued Medications Trimethoprim/Sulfamethoxazole (Bactrim Ds) 1 tab PO NOW ONE Stop: 09/25/18 21:54 Last Admin: 09/25/18 21:59 Dose: 1 tab Vital Signs - 8 hr 09/25/18 22:03 Pulse Rate 78 Respiratory Rate 15 Blood Pressure [Right Arm] 134/70 Pulse Oximetry 96 MDM - Extremity (Nontraumatic) Lab Data Result diagrams: 09/25/18 20:45 09/25/18 20:45 Lab Results 09/25/18 09/25/18 Range/Units 20:45 20:45 WBC 5.4 (4.5-11.0) X10^3/uL RBC 3.60 L (4.5-5.9) X10^6/uL Hgb 11.5 L (13.5-17.5) g/dL Hct 33.1 L (41-53) % MCV 91.7 (80-100) fL MCH 32.0 (26-34) PG MCHC 34.9 (30-36) % RDW 12.8 (11.6-14.8) % Plt Count 190 (150-400) X10^3/uL Neut % (Auto) 47.2 L (50-75) % Lymph % (Auto) 36.5 (25-40) % [place] % (Auto) 13.0 (3-14) % Eos % (Auto) 2.7 (2-4) % Baso % (Auto) 0.6 (0-2) % Neut # (Auto) 2600 L (2931-7088) /uL Sodium 134 L (137-145) mmol/L Potassium 3.7 (3.4-5.1) mmol/L Chloride 96 L (98-107) mmol/L Carbon Dioxide 24 (22-32) mmol/L BUN 29 H (9-20) mg/dL Creatinine 1.60 H (0.66-1.25) mg/dL Estimated GFR 43.6 L (>60) mL/min BUN/Creatinine Ratio 18.1 (6-22) Glucose 90 (80-110) mg/dL Calcium 8.6 (8.4-10.2) mg/dL MDM Narrative Medical decision making narrative: I was able to discuss the patient's case with his neurologist to perform the nerve conduction studies. She confirmed that there were no needle was placed through the skin. Patient's clinical exam is somewhat concerning for cellulitis on his left wrist. It is unusual that he had the same symptoms in his right wrist just after the nerve conduction studies and the symptoms have completely resolved. He is afebrile. Does not have an elevated white blood cell count. The neurologist seem to think that his symptoms today are unlikely related to the study that he had done several days ago. I will start the patient on antibiotics given his clinical symptoms and the concern for cellulitis. I do not feel that he needs admission to the hospital today for IV antibiotics. He was given the 1st dose of antibiotics here in the emergency department and prescription starts taking tomorrow. He was given return precautions. He expressed understanding and agreement with plan. Discharge Plan Departure Patient Disposition: Home Clinical Impression: Cellulitis Discharge Date/Time: 09/25/18 22:14 Interventions: ED Discharge Assessment Last Done: 09/25/18 22:12 Instructions: DI for Cellulitis -- Adult, How To Perform RICE (Rest, Ice, Compress, Elevate) Activity Restrictions/Additional Instructions: I started you on antibiotics today for concerns that your left hand the swelling may be caused by an infection. It could also potentially just be inflammation. I would recommend you take Tylenol for any pain. I would also recommend you keep your hand elevated and iced as much as possible. Call your neurologist tomorrow for a follow-up. Return to the emergency department for any new symptoms, fevers, worsening pain, worsening redness, worsening swelling or any other concerning symptoms Prescriptions: New sulfamethoxazole-trimethoprim [Bactrim DS] 800-160 mg tablet 1 tab PO BID 7 Days Qty: 14 RF: 0 No Action fluticasone 50 mcg/actuation spray,suspension 1 spray Intranasal BID Qty: 16 RF: 0 amlodipine 10 mg tablet 10 mg PO DAILY Qty: 90 RF: 3 oxybutynin chloride 15 MG tablet extended release 24hr 15 mg PO QDAY Qty: 0 RF: 0 aspirin 81 MG tablet,delayed release (DR/EC) 81 mg PO QDAY Qty: 0 RF: 0 isosorbide mononitrate 60 MG tablet extended release 24 hr 60 mg PO QAM Qty: 30 RF: 10 gabapentin [Neurontin] 600 mg tablet 2 tab PO TID Qty: 180 RF: 2 metoprolol succinate 200 mg tablet extended release 24 hr 200 mg PO QDAY Qty: 30 RF: 3 glipizide 5 mg tablet 2.5 mg PO BID Qty: 30 RF: 3 duloxetine [Cymbalta] 30 mg capsule,delayed release(DR/EC) 30 mg PO BID Qty: 180 RF: 0 losartan 50 mg tablet 50 mg PO BID Qty: 60 RF: 0 Glucose: Test Strips 1 strip miscellaneous DIRECTED RF: 0
[2018-09-25 21:07] LABS: Add Manual Diff / Slide Review NO; Basophils Percent Auto 0.6 % (0-2); Eosinophils Percent Auto 2.7 % (2-4); Hematocrit 33.1 % (41-53); Hemoglobin 11.5 g/dL (13.5-17.5); Lymphocytes Percent Auto 36.5 % (25-40); Mean Corpuscular HGB Conc 34.9 % (30-36); Mean Corpuscular Volume 91.7 fL (80-100); Neutrophils Absolute Auto 2600 /uL (3000-5900); Neutrophils Percent Auto 47.2 % (50-75); Platelet Count 190 X10^3/uL (150-400); Red Cell Distribution Width 12.8 % (11.6-14.8); White Blood Cell Count 5.4 X10^3/uL (4.5-11.0)
[2018-09-25 21:11] LABS: BUN Creatinine Ratio 18.1 (6-22); Blood Urea Nitrogen 29 mg/dL (9-20); Calcium 8.6 mg/dL (8.4-10.2); Carbon Dioxide 24 mmol/L (22-32); Chloride 96 mmol/L (98-107); Estimated Glomerular Filt Rate 43.6 mL/min (>60); Glucose 90 mg/dL (80-110); HEMOLYSIS 25 (0-50); Potassium 3.7 mmol/L (3.4-5.1); Sodium 134 mmol/L (137-145)
[2018-09-25] MEDS: TRIMETH/SULFA 160/800 (DS) TABLET 1 TAB PO (21:59)
[2018-09-25 22:03] VITALS: BP 134/70; PULSE 78; RESP 15; O2SAT 96
== END 2018-09-25 22:14 | disposition home or self-care (01) ==
PROVIDERS: Emergency Provider Emergency Medicine; PCP Family Medicine
DX: L03.114 Cellulitis of left upper limb (principal)
CPT/HCPCS: 36591; 80048; 85025; 99282; 99283

== ENCOUNTER → 2018-09-30 11:49 | Outpatient (CLI) | payer MEDICARE, OTHER, SELFPAY ==
[2018-04-29 17:17] VITALS: BMI 25.2
[2018-09-30 12:40] LABS: Add Manual Diff / Slide Review NO; Basophils Percent Auto 0.6 % (0-2); Eosinophils Percent Auto 3.3 % (2-4); Hematocrit 35.6 % (41-53); Hemoglobin 12.2 g/dL (13.5-17.5); Mean Corpuscular HGB Conc 34.3 % (30-36); Mean Corpuscular Hemoglobin 31.8 PG (26-34); Mean Corpuscular Volume 92.5 fL (80-100); Monocytes Percent Auto 6.6 % (3-14); Neutrophils Absolute Auto 2900 /uL (3000-5900); Neutrophils Percent Auto 49.5 % (50-75); Platelet Count 249 X10^3/uL (150-400); Red Blood Cell Count 3.85 X10^6/uL (4.5-5.9); White Blood Cell Count 5.8 X10^3/uL (4.5-11.0)
[2018-09-30 12:45] LABS: Hemoglobin A1C% w Est Avg Glu 5.9 % (4.0-6.0)
[2018-09-30 13:03] LABS: Appearance Urine UA CLEAR; Bilirubin Urine UA NEGATIVE (NEGATIVE); Color Urine UA YELLOW; Glucose Urine UA NEGATIVE (Normal); Ketones Urine UA NEGATIVE (NEGATIVE); Leukocyte Esterase Urine UA NEGATIVE (NEGATIVE); Nitrite Urine UA NEGATIVE (Negative); Occult Blood Urine UA NEGATIVE (Negative); Protein Urine UA 1+ (Negative); Urobilinogen Urine UA 0.2 E.U./dL (0.2); pH Urine UA 5.5 (4.5-8.0)
[2018-09-30 13:10] LABS: Alanine Aminotransferase 41 IU/L (21-72); Albumin 4.2 g/dL (3.5-5.0); Albumin Globulin Ratio 1.6 (1.0-2.8); Alkaline Phosphatase 112 U/L (38-126); Aspartate Aminotransferase 48 IU/L (17-59); Bilirubin Total 0.5 mg/dL (0.2-1.3); Blood Urea Nitrogen 26 mg/dL (9-20); Carbon Dioxide 25 mmol/L (22-32); Chloride 96 mmol/L (98-107); Cholesterol 183 mg/dL (140-199); Creatine Kinase 636 U/L (55-170); Estimated Glomerular Filt Rate 33.7 mL/min (>60); Globulin 2.6 g/dL (1.7-4.1); Glucose 150 mg/dL (80-110); HDL Cholesterol 41 mg/dL (40-60); HEMOLYSIS < 15 (0-50); LDL Cholesterol Calculated 113 mg/dL (<100); Sodium 138 mmol/L (137-145); Total Protein 6.8 g/dL (6.3-8.2); Triglycerides 143 mg/dL (35-150)
[2018-09-30 13:23] LABS: Thyroid Stimulating Hormone 1.02 uIU/mL (0.47-4.68)
[2018-09-30 13:28] LABS: Potassium 5.5 mmol/L (3.4-5.1)
[2018-10-01 13:44] LABS: Aldolase 6.7 U/L (< 8.2)
== END ==
PROVIDERS: PCP Family Medicine; Visit Provider Internal Medicine Cardiovascular Disease
DX: E78.5 Hyperlipidemia, unspecified (principal); E11.9 Type 2 diabetes mellitus without complications; I10 Essential (primary) hypertension
CPT/HCPCS: 36415; 80053; 80061; 81003; 82085; 82550; 83036; 84443; 85025

== ENCOUNTER → 2018-11-14 13:16 | Outpatient (CLI) | payer MEDICARE, OTHER, SELFPAY ==
[2018-04-29 17:17] VITALS: BMI 25.2
[2018-11-14 13:58] LABS: Appearance Urine UA CLEAR; Bilirubin Urine UA NEGATIVE (NEGATIVE); Color Urine UA YELLOW; Glucose Urine UA NEGATIVE (Negative); Ketones Urine UA NEGATIVE (NEGATIVE); Leukocyte Esterase Urine UA NEGATIVE (NEGATIVE); Nitrite Urine UA NEGATIVE (Negative); Occult Blood Urine UA NEGATIVE (Negative); Protein Urine UA 2+ (Negative); Urobilinogen Urine UA 0.2 E.U./dL (0.2)
[2018-11-14 14:20] LABS: Add Manual Diff / Slide Review NO; Basophils Percent Auto 0.7 % (0-2); Eosinophils Percent Auto 2.7 % (2-4); Hematocrit 37.3 % (41-53); Hemoglobin 12.6 g/dL (13.5-17.5); Lymphocytes Percent Auto 45.2 % (25-40); Mean Corpuscular HGB Conc 33.9 % (30-36); Mean Corpuscular Hemoglobin 31.4 PG (26-34); Mean Corpuscular Volume 92.8 fL (80-100); Monocytes Percent Auto 6.2 % (3-14); Neutrophils Absolute Auto 2700 /uL (1500-7000); Neutrophils Percent Auto 45.2 % (50-75); Platelet Count 213 X10^3/uL (150-400); Red Blood Cell Count 4.02 X10^6/uL (4.5-5.9); Red Cell Distribution Width 14.7 % (11.6-14.8)
[2018-11-14 14:31] LABS: Hemoglobin A1C% w Est Avg Glu 5.6 % (4.0-6.0)
[2018-11-14 14:38] LABS: Blood Urea Nitrogen 24 mg/dL (9-20); Calcium 9.4 mg/dL (8.4-10.2); Carbon Dioxide 22 mmol/L (22-32); Chloride 99 mmol/L (98-107); Estimated Glomerular Filt Rate 46.8 mL/min (>60); Glucose 106 mg/dL (80-110); HEMOLYSIS < 15 (0-50); Potassium 4.7 mmol/L (3.4-5.1); Sodium 135 mmol/L (137-145)
== END ==
PROVIDERS: PCP Family Medicine; Visit Provider Orthopaedic Surgery
DX: M47.12 Other spondylosis with myelopathy, cervical region (principal); E11.42 Type 2 diabetes mellitus with diabetic polyneuropathy
CPT/HCPCS: 36415; 80048; 81003; 83036; 85025; 86850; 86900; 86901

== ENCOUNTER 2018-12-26 14:14 | Emergency (ER) | payer MEDICARE, OTHER, SELFPAY ==
[2018-04-29 17:17] VITALS: BMI 25.2
[2018-12-26 14:21] VITALS: BP 150/87; PULSE 97; RESP 16; TEMP 36.9; O2SAT 98; BMI 25.7
--- NOTE | 2018-12-26 14:27 | ED.CHESTPAIN ---
HPI - Chest Pain General Chief Complaint: Chest Pain Stated Complaint: CHEST PAIN,SHORTNESS OF BREATH,DIZZY Time Seen by Provider: 12/26/18 14:16 Source: patient and old records reviewed Mode of arrival: ambulatory Limitations: no limitations History of Present Illness HPI narrative: This is a 68-year-old male who comes in with complaint of feeling achy all over. Patient states today he had a little bit of chest pain felt sort of lightheadedness. Patient states that he felt a discomfort and cramping in his left calf and is concerned that is going to spread everywhere. He had what he describes or sounds like rhabdomyolysis in the past with started out in a similar situation. Patient states 2 and half weeks ago he had a cervical fusion, Saturday he started having flu-like symptoms with muscle aches all over feeling warm and having a cough. States he was coughing last night. He would drink a lot of fluid which would help with any would have to get up to urinate and that would make him cough again. [place] a little lightheaded. He has continued to have crampy in that left calf he denies any fevers, states he has had greenish productive sputum. He felt short of breath. He denies any swelling in his lower extremities. He has a history of acute kidney injury, he states he has some liver problems secondary to diabetes. Related Data Home Medications Medication Instructions Recorded Confirmed oxybutynin chloride 15 mg PO DAILY #0 03/13/17 12/26/18 aspirin 81 mg PO DAILY #0 01/03/18 12/26/18 Glucose: Test Strips 1 strip MISCELLANEOUS DIRECTED 04/29/18 12/26/18 gabapentin [Neurontin] 1,200 mg PO TID 12/26/18 12/26/18 losartan 50 mg PO DAILY 12/26/18 12/26/18 metoprolol succinate 50 mg PO DAILY 12/26/18 12/26/18 tamsulosin 0.4 mg PO DAILY 12/26/18 12/26/18 Previous Rx's Medication Instructions Recorded isosorbide mononitrate 60 mg PO QAM #30 tab 03/04/18 fluticasone 50 mcg/actuation nasal 1 spray INTRANASAL BID #16 gm 05/09/18 spray,suspension glipizide 5 mg tablet 2.5 mg PO BID #30 tab 07/29/18 amlodipine 10 mg tablet 10 mg PO DAILY #90 tab 08/06/18 duloxetine 30 mg capsule,delayed 30 mg PO BID #180 cap 11/27/18 release lorazepam [Ativan] 0.5 mg PO BID-TID PRN #7 tab 12/26/18 Allergies Allergy/AdvReac Type Severity Reaction Status Date / Time latex Allergy Mild RASH/ITCH Verified 10/14/18 09:18 (tape) pollen extracts Allergy Mild SINUS AND Verified 10/14/18 09:18 [POLLEN EXTRACTS] CHEST CONGESTION adhesive tape [ADHESIVE TAPE] AdvReac Unknown ITCHY Verified 10/14/18 09:18 Review of Systems Review of Systems ROS Unobtainable: All systems reviewed & are unremarkable except as noted in HPI and below Constitutional Reports chills, Denies fever(s), Denies lethargy and Denies weakness Cardiovascular Reports chest pain, Denies diaphoresis, Denies syncope, Denies rapid heart rate, Denies edema, Denies irregular heart rhythm, Reports lightheadedness, Denies palpitations, Denies dyspnea, Denies dyspnea on exertion and Denies orthopnea Respiratory Reports change in phlegm color (Green), Reports cough, Denies dyspnea, Denies dyspnea on exertion, Denies stridor and Denies wheezing Gastrointestinal Gastrointestinal: Denies abdominal pain, Denies change in bowel habits, Denies diarrhea, Denies nausea and Denies vomiting Genitourinary Denies hematuria, Denies flank pain, Reports urinary frequency (But drinking large amounts of fluid), Denies urinary incontinence and Denies urinary urgency Musculoskeletal Reports as per HPI, Reports myalgias, Reports muscle cramps (Left calf), Denies numbness and Denies tingling Integumentary/Breasts Denies rash and Reports other (Healing surgical incision) Neurologic Denies syncope, Denies numbness, Denies tingling, Denies paresthesias and Denies weakness Endocrine Denies palpitations Allergic/Immunologic Denies wheezing FOR[facility]LY [facility] Medical History Anxiety (Chronic Unknown) Aortic stenosis (Chronic) BPH (benign prostatic hyperplasia) (Chronic Unknown) Chronic pain syndrome (Chronic Unknown) Chronic renal insufficiency (Chronic Unknown) Depression (Chronic Unknown) Diabetes (Chronic Unknown) GERD (gastroesophageal reflux disease) (Chronic Unknown) Hyperlipemia (Chronic Unknown) Hypertension (Chronic Unknown) Low back pain (Chronic Unknown) Peripheral neuropathy (Chronic Unknown) Rheumatoid arthritis (Chronic Unknown) Coronary artery disease (Suspected Unknown) History of ETOH abuse (Resolved Unknown) Surgical History S/P cervical spinal fusion (Acute) History of back surgery (Resolved ~2012) Status post hernia repair Status post knee surgery Family History Mother Stroke Father Cancer Social History household members: none Smoking Status: Former smoker Family History Mother Stroke Father Cancer Social History household members: none Smoking Status: Former smoker Exam Narrative Exam Narrative: GEN: well nourished, well appearing male, alert and oriented x 3, patient appears to be in mild distress. HEENT: Atraumatic, pupils are equal round reactive to light, extraocular movements are intact, nares are clear, TMs are clear with no fluid, there is no conjunctival pallor. Throat is clear without any exudates, erythema, tonsillar enlargement or uvular deviation, patient has Hard C-collar in place. HEART: Regular rate and rhythm without murmur, clicks, rubs. LUNGS:Lungs clear to auscultation, no wheezes, rales, crackles, chest moves symmetrically ABD:bowel sounds normal, soft, non-tender, no guarding, rebound, rigidity, no masses noted, no hepatosplenomegaly :No CVA tenderness MSCL: Non-tender, no muscle atrophy, muscles strength 5/5 upper and lower extremities, full range of motion, normal gait. Patient able to stand and move without issue. NEURO:CN 2-12 intact, sensation normal. SKIN: no rash, no signs of infection, healing incision. Initial Vital Signs Initial Vital Signs: Vital Signs Temperature 98.4 F 12/26/18 14:21 Pulse Rate 97 H 12/26/18 14:21 Respiratory Rate 16 12/26/18 14:21 Blood Pressure 150/87 H 12/26/18 14:21 Pulse Oximetry 98 12/26/18 14:21 Course Orders Ordered: ED Orders 12/26/18 14:25 Complete Blood Count AUTO DIFF Stat Comprehensive Metabolic Panel Stat Influenza A and B by PCR Rapid Stat Lipase Stat Partial Thromboplastin Time Stat Prothrombin Time INR Stat Troponin & CK Cardiac Panel Stat 12/26/18 14:29 XR chest 1V Stat 12/26/18 15:24 US periph venous low extrem lt Stat Discontinued Medications Aspirin (Aspirin Chew) 324 mg PO NOW ONE Stop: 12/26/18 14:30 Last Admin: 12/26/18 15:02 Dose: 324 mg Sodium Chloride (Normal Saline 0.9%) 1,000 mls @ 150 mls/hr IV CONT MINA Last Infusion: 12/26/18 17:28 Dose: 0 mls/hr Admin: 12/26/18 15:02 Dose: 150 mls/hr Lorazepam (Ativan) 1 mg IV NOW ONE Stop: 12/26/18 15:24 Last Admin: 12/26/18 15:43 Dose: 1 mg Vital Signs - 8 hr 12/26/18 14:21 12/26/18 15:05 12/26/18 16:43 Temperature 98.4 F Pulse Rate 97 H 88 82 Respiratory Rate 16 18 24 Blood Pressure 150/87 H Blood Pressure [Right Arm] 129/81 111/89 Pulse Oximetry 98 97 98 12/26/18 17:10 Temperature Pulse Rate 83 Respiratory Rate 22 Blood Pressure Blood Pressure [Right Arm] 133/82 Pulse Oximetry 98 MDM - Chest Pain Lab Data Attestation: I reviewed the patient's lab results. Result diagrams: 12/26/18 14:25 12/26/18 14:25 Lab Results 12/26/18 12/26/18 12/26/18 Range/Units 14:25 14:25 14:25 WBC 11.7 H (4.5-11.0) X10^3/uL RBC 3.94 L (4.5-5.9) X10^6/uL Hgb 12.1 L (13.5-17.5) g/dL Hct 35.9 L (41-53) % MCV 91.3 (80-100) fL MCH 30.8 (26-34) PG MCHC 33.7 (30-36) % RDW 15.1 H (11.6-14.8) % Plt Count 222 (150-400) X10^3/uL Neut % (Auto) 56.9 (50-75) % Lymph % (Auto) 32.6 (25-40) % [place] % (Auto) 7.6 (3-14) % Eos % (Auto) 2.4 (2-4) % Baso % (Auto) 0.5 (0-2) % Neut # (Auto) 6700 (3787-9027) /uL Lymph # (Auto) 3800 (1356-3425) /uL [place] # (Auto) 900 (0-900) /uL Eos # (Auto) 300 (0-450) /uL Baso # (Auto) 100 (0-100) /uL PT 11.9 (10.1-12.7) SECONDS INR 1.0 (0.9-1.3) APTT 27 (26.4-36.2) SECONDS Sodium 136 L (137-145) mmol/L Potassium 4.1 (3.4-5.1) mmol/L Chloride 101 (98-107) mmol/L Carbon Dioxide 21 L (22-32) mmol/L BUN 17 (9-20) mg/dL Creatinine 1.40 H (0.66-1.25) mg/dL Estimated GFR 50.7 L (>60) mL/min BUN/Creatinine Ratio 12.1 (6-22) Glucose 153 H (80-110) mg/dL Calcium 9.0 (8.4-10.2) mg/dL Total Bilirubin 1.5 H (0.2-1.3) mg/dL AST 21 (17-59) IU/L ALT 20 L (21-72) IU/L Alkaline Phosphatase 136 H (38-126) U/L Total Creatine Kinase 93 (55-170) U/L CK-MB (CK-2) TNP CK-MB (CK-2) Rel Index TNP Troponin I 0.013 (0.01-0.034) ng/mL Total Protein 7.5 (6.3-8.2) g/dL Albumin 4.3 (3.5-5.0) g/dL Globulin 3.2 (1.7-4.1) g/dL Albumin/Globulin Ratio 1.3 (1.0-2.8) Lipase 25 (23-300) U/L Influenza A & B (PCR) (Negative) 12/26/18 Range/Units 14:25 WBC (4.5-11.0) X10^3/uL RBC (4.5-5.9) X10^6/uL Hgb (13.5-17.5) g/dL Hct (41-53) % MCV (80-100) fL MCH (26-34) PG MCHC (30-36) % RDW (11.6-14.8) % Plt Count (150-400) X10^3/uL Neut % (Auto) (50-75) % Lymph % (Auto) (25-40) % [place] % (Auto) (3-14) % Eos % (Auto) (2-4) % Baso % (Auto) (0-2) % Neut # (Auto) (6441-9439) /uL Lymph # (Auto) (0559-3970) /uL [place] # (Auto) (0-900) /uL Eos # (Auto) (0-450) /uL Baso # (Auto) (0-100) /uL PT (10.1-12.7) SECONDS INR (0.9-1.3) APTT (26.4-36.2) SECONDS Sodium (137-145) mmol/L Potassium (3.4-5.1) mmol/L Chloride (98-107) mmol/L Carbon Dioxide (22-32) mmol/L BUN (9-20) mg/dL Creatinine (0.66-1.25) mg/dL Estimated GFR (>60) mL/min BUN/Creatinine Ratio (6-22) Glucose (80-110) mg/dL Calcium (8.4-10.2) mg/dL Total Bilirubin (0.2-1.3) mg/dL AST (17-59) IU/L ALT (21-72) IU/L Alkaline Phosphatase (38-126) U/L Total Creatine Kinase (55-170) U/L CK-MB (CK-2) CK-MB (CK-2) Rel Index Troponin I (0.01-0.034) ng/mL Total Protein (6.3-8.2) g/dL Albumin (3.5-5.0) g/dL Globulin (1.7-4.1) g/dL Albumin/Globulin Ratio (1.0-2.8) Lipase (23-300) U/L Influenza A & B (PCR) Negative (Negative) Imaging Data Chest x-ray: Radiologist's impression: [address] [address] XRay Report Signed Patient: Hector Harper EMR#: [id number] : 2At:[id number] Age/Sex: 68 / MDate of Service: 12/26/18 Loc: ED Accession Number: [id number] Procedure: XR chest 1V Ordering Provider: Ale Hu D.O. PROCEDURE: XR CHEST 1V INDICATIONS: chest pain, sob, cough TECHNIQUE: One view of the chest was acquired. COMPARISON: [facility], CR, CHEST 1 VIEW, 02/02/2018, 17:12. [facility], CR, XR CHEST 1V, 04/29/2018, 13:54. FINDINGS: Surgical changes and devices: None. Lungs and pleura: Lungs are clear. No pleural effusions or pneumothorax. Mediastinum: Mediastinal contours appear normal. Heart size is normal. Bones and chest wall: No suspicious bony lesions. Overlying soft tissues appear unremarkable. IMPRESSION: Chest without acute cardiopulmonary abnormalities. Dictated by: Mendoza Addison M.D. on 12/26/2018 at 14:47 Approved by: Mendoza Addison M.D. on 12/26/2018 at 14:48 Venous US: Radiologist's impression: [facility] [address] [place] [id number] Ultrasound Report Signed Patient: Hector Harper EMR#: [id number] : 2At:[id number] Age/Sex: 68 / MDate of Service: 12/26/18 Loc: ED Accession Number: [id number] Procedure: US periph venous low extrem lt Ordering Provider: Ale Hu D.O. PROCEDURE: US PERIPH VENOUS LOW EXTREM LT INDICATIONS: LEFT LEG CRAMPING, RECENT NECK SURGERY TECHNIQUE: Real-time imaging, as well as color and pulse Doppler interrogation, were performed of the lower extremity deep veins from the inguinal ligament to the popliteal fossa. COMPARISON: None. FINDINGS: The deep veins are normally compressible, and free of intraluminal thrombus. Color and pulse Doppler demonstrate normal phasic intraluminal flow. There is normal augmentation response to distal compression maneuver. IMPRESSION: No DVT in the left lower extremity. Dictated by: Antoinette Young M.D. on 12/26/2018 at 16:38 Approved by: Antoinette Young M.D. on 12/26/2018 at 16:39 ECG Data Attestation: I personally reviewed and interpreted this ECG as follows: Prior ECG tracings: available for review Interpretation: Sinus tachycardia with a rate of 100 DC of 176 QRS of 99 and QTC of 396. No ST elevation or depression. Patient has prior EKG that appears similar from 04/29/2018 MDM Narrative Medical decision making narrative: Recheck after medication, patient cramping sensation is much better and patient is more comfortable. Patient has slightly elevated white count although no clear signs of infection, hemoglobin is 12. this appears consistent with priors. Patient's electrolytes not show any major abnormalities. Patient's bilirubin is slightly elevated as well alk phos at 1:36 a.m. troponin is at 0.013. Chest Xray shows no acute process. US of lower extremity is negative for DVT. Discussed with patient and plan for d/c home as suspicion for cardiac cause with all over cramping is much less likely, as is PE with negative dvt. Patient does not show any changes consistent with rhabdo on labs work. Discharge Plan Departure Patient Disposition: Home Clinical Impression: Cramps, muscle, general, Elevated bilirubin, Atypical chest pain Discharge Date/Time: 12/26/18 17:50 Interventions: ED Discharge Assessment Last Done: 12/26/18 17:49 Instructions: DI for Atypical Chest Pain Activity Restrictions/Additional Instructions: Follow up with your physician in the next 3-5 days, call Saturday morning for an appointment. Continue your home medication as prescribed. Take ativan 1 tablet every 6-8 hours as needed for muscle cramps/spasm. This medication can make you sleepy do not drive, perform hazards activities or make any major decisions while taking it. Return to ER for fevers greater than 100.4F, shortness of breath, new chest pain, passing out, persistent vomiting, new weakness, numbness, black or bloody stools or other new or concerning symptoms. Prescriptions: New lorazepam [Ativan] 0.5 mg tablet 0.5 mg PO BID-TID PRN (Reason: muscle spasm) Qty: 7 RF: 0 No Action fluticasone 50 mcg/actuation spray,suspension 1 spray Intranasal BID Qty: 16 RF: 0 amlodipine 10 mg tablet 10 mg PO DAILY Qty: 90 RF: 3 oxybutynin chloride 15 MG tablet extended release 24hr 15 mg PO DAILY Qty: 0 RF: 0 aspirin 81 MG tablet,delayed release (DR/EC) 81 mg PO DAILY Qty: 0 RF: 0 isosorbide mononitrate 60 MG tablet extended release 24 hr 60 mg PO QAM Qty: 30 RF: 10 glipizide 5 mg tablet 2.5 mg PO BID Qty: 30 RF: 3 duloxetine [Cymbalta] 30 mg capsule,delayed release(DR/EC) 30 mg PO BID Qty: 180 RF: 0 Glucose: Test Strips 1 strip miscellaneous DIRECTED RF: 0 metoprolol succinate 100 mg tablet extended release 24 hr 50 mg PO DAILY RF: 0 tamsulosin 0.4 mg capsule 0.4 mg PO DAILY RF: 0 losartan 100 mg tablet 50 mg PO DAILY RF: 0 gabapentin [Neurontin] 600 mg tablet 1,200 mg PO TID RF: 0 Referrals: Johanny Cuadra DO [Primary Care Provider] -
--- NOTE | 2018-12-26 14:29 | DI.RAD.S_ITS ---
PROCEDURE: XR CHEST 1V INDICATIONS: chest pain, sob, cough TECHNIQUE: One view of the chest was acquired. COMPARISON: [facility], MATY, CHEST 1 VIEW, 02/02/2018, 17:12. [facility], MATY, XR CHEST 1V, 04/29/2018, 13:54. FINDINGS: Surgical changes and devices: None. Lungs and pleura: Lungs are clear. No pleural effusions or pneumothorax. Mediastinum: Mediastinal contours appear normal. Heart size is normal. Bones and chest wall: No suspicious bony lesions. Overlying soft tissues appear unremarkable. IMPRESSION: Chest without acute cardiopulmonary abnormalities. Dictated by: Mendoza Addison M.D. on 12/26/2018 at 14:47 Approved by: Mendoza Addison M.D. on 12/26/2018 at 14:48
[2018-12-26 14:42] LABS: Add Manual Diff / Slide Review NO; Basophils Absolute Auto 100 /uL (0-100); Basophils Percent Auto 0.5 % (0-2); Eosinophils Absolute Auto 300 /uL (0-450); Eosinophils Percent Auto 2.4 % (2-4); Hematocrit 35.9 % (41-53); Hemoglobin 12.1 g/dL (13.5-17.5); Lymphocytes Absolute Auto 3800 /uL (1100-4500); Lymphocytes Percent Auto 32.6 % (25-40); Mean Corpuscular HGB Conc 33.7 % (30-36); Mean Corpuscular Hemoglobin 30.8 PG (26-34); Mean Corpuscular Volume 91.3 fL (80-100); Monocytes Absolute Auto 900 /uL (0-900); Monocytes Percent Auto 7.6 % (3-14); Neutrophils Absolute Auto 6700 /uL (1500-7000); Neutrophils Percent Auto 56.9 % (50-75); Platelet Count 222 X10^3/uL (150-400); Red Blood Cell Count 3.94 X10^6/uL (4.5-5.9); Red Cell Distribution Width 15.1 % (11.6-14.8); White Blood Cell Count 11.7 X10^3/uL (4.5-11.0)
[2018-12-26 14:44] LABS: Prothrombin Time 11.9 SECONDS (10.1-12.7)
[2018-12-26 14:47] LABS: PTT Partial Thromboplastin Tim 27 SECONDS (26.4-36.2)
[2018-12-26 14:48] LABS: Alanine Aminotransferase 20 IU/L (21-72); Albumin 4.3 g/dL (3.5-5.0); Albumin Globulin Ratio 1.3 (1.0-2.8); Alkaline Phosphatase 136 U/L (38-126); Aspartate Aminotransferase 21 IU/L (17-59); BUN Creatinine Ratio 12.1 (6-22); Bilirubin Total 1.5 mg/dL (0.2-1.3); Blood Urea Nitrogen 17 mg/dL (9-20); Carbon Dioxide 21 mmol/L (22-32); Chloride 101 mmol/L (98-107); Creatine Kinase 93 U/L (55-170); Estimated Glomerular Filt Rate 50.7 mL/min (>60); Globulin 3.2 g/dL (1.7-4.1); Glucose 153 mg/dL (80-110); HEMOLYSIS < 15 (0-50); Lipase 25 U/L (23-300); Potassium 4.1 mmol/L (3.4-5.1); Sodium 136 mmol/L (137-145); Total Protein 7.5 g/dL (6.3-8.2)
[2018-12-26 14:57] LABS: Influenza A and B by PCR Rapid Negative (Negative)
[2018-12-26 14:59] LABS: Troponin I 0.013 ng/mL (0.01-0.034)
[2018-12-26] MEDS: ASPIRIN 81 MG TAB 324 MG PO (15:02)
[2018-12-26] MEDS: SODIUM CHLORIDE 0.9% 1,000 ML 150 ML IV (15:02)
[2018-12-26 15:05] VITALS: BP 129/81; PULSE 88; RESP 18; O2SAT 97
--- NOTE | 2018-12-26 15:26 | ED_ITS ---
HPI - Chest Pain General Chief Complaint: Chest Pain Stated Complaint: CHEST PAIN,SHORTNESS OF BREATH,DIZZY Time Seen by Provider: 12/26/18 14:16 Source: patient and old records reviewed Mode of arrival: ambulatory Limitations: no limitations History of Present Illness HPI narrative: This is a 68-year-old male who comes in with complaint of feeling achy all over. Patient states today he had a little bit of chest pain felt sort of lightheadedness. Patient states that he felt a discomfort and cramping in his left calf and is concerned that is going to spread everywhere. He had what he describes or sounds like rhabdomyolysis in the past with started out in a similar situation. Patient states 2 and half weeks ago he had a cervical fusion, Saturday he started having flu-like symptoms with muscle aches all over feeling warm and having a cough. States he was coughing last night. He would drink a lot of fluid which would help with any would have to get up to urinate and that would make him cough again. [place] a little lightheaded. He has continued to have crampy in that left calf he denies any fevers, states he has had greenish productive sputum. He felt short of breath. He denies any swelling in his lower extremities. He has a history of acute kidney injury, he states he has some liver problems secondary to diabetes. Related Data Home Medications Medication Instructions Recorded Confirmed oxybutynin chloride 15 mg PO DAILY #0 03/13/17 12/26/18 aspirin 81 mg PO DAILY #0 01/03/18 12/26/18 Glucose: Test Strips 1 strip MISCELLANEOUS DIRECTED 04/29/18 12/26/18 gabapentin [Neurontin] 1,200 mg PO TID 12/26/18 12/26/18 losartan 50 mg PO DAILY 12/26/18 12/26/18 metoprolol succinate 50 mg PO DAILY 12/26/18 12/26/18 tamsulosin 0.4 mg PO DAILY 12/26/18 12/26/18 Previous Rx's Medication Instructions Recorded isosorbide mononitrate 60 mg PO QAM #30 tab 03/04/18 fluticasone 50 mcg/actuation nasal 1 spray INTRANASAL BID #16 gm 05/09/18 spray,suspension glipizide 5 mg tablet 2.5 mg PO BID #30 tab 07/29/18 amlodipine 10 mg tablet 10 mg PO DAILY #90 tab 08/06/18 duloxetine 30 mg capsule,delayed 30 mg PO BID #180 cap 11/27/18 release lorazepam [Ativan] 0.5 mg PO BID-TID PRN #7 tab 12/26/18 Allergies Allergy/AdvReac Type Severity Reaction Status Date / Time latex Allergy Mild RASH/ITCH Verified 10/14/18 09:18 (tape) pollen extracts Allergy Mild SINUS AND Verified 10/14/18 09:18 [POLLEN EXTRACTS] CHEST CONGESTION adhesive tape [ADHESIVE TAPE] AdvReac Unknown ITCHY Verified 10/14/18 09:18 Review of Systems Review of Systems ROS Unobtainable: All systems reviewed & are unremarkable except as noted in HPI and below Constitutional Reports chills, Denies fever(s), Denies lethargy and Denies weakness Cardiovascular Reports chest pain, Denies diaphoresis, Denies syncope, Denies rapid heart rate, Denies edema, Denies irregular heart rhythm, Reports lightheadedness, Denies palpitations, Denies dyspnea, Denies dyspnea on exertion and Denies orthopnea Respiratory Reports change in phlegm color (Green), Reports cough, Denies dyspnea, Denies dyspnea on exertion, Denies stridor and Denies wheezing Gastrointestinal Gastrointestinal: Denies abdominal pain, Denies change in bowel habits, Denies diarrhea, Denies nausea and Denies vomiting Genitourinary Denies hematuria, Denies flank pain, Reports urinary frequency (But drinking large amounts of fluid), Denies urinary incontinence and Denies urinary urgency Musculoskeletal Reports as per HPI, Reports myalgias, Reports muscle cramps (Left calf), Denies numbness and Denies tingling Integumentary/Breasts Denies rash and Reports other (Healing surgical incision) Neurologic Denies syncope, Denies numbness, Denies tingling, Denies paresthesias and Denies weakness Endocrine Denies palpitations Allergic/Immunologic Denies wheezing [facility] Medical History Anxiety (Chronic Unknown) Aortic stenosis (Chronic) BPH (benign prostatic hyperplasia) (Chronic Unknown) Chronic pain syndrome (Chronic Unknown) Chronic renal insufficiency (Chronic Unknown) Depression (Chronic Unknown) Diabetes (Chronic Unknown) GERD (gastroesophageal reflux disease) (Chronic Unknown) Hyperlipemia (Chronic Unknown) Hypertension (Chronic Unknown) Low back pain (Chronic Unknown) Peripheral neuropathy (Chronic Unknown) Rheumatoid arthritis (Chronic Unknown) Coronary artery disease (Suspected Unknown) History of ETOH abuse (Resolved Unknown) Surgical History S/P cervical spinal fusion (Acute) History of back surgery (Resolved ~2012) Status post hernia repair Status post knee surgery Family History Mother Stroke Father Cancer Social History household members: none Smoking Status: Former smoker Family History Mother Stroke Father Cancer Social History household members: none Smoking Status: Former smoker Exam Narrative Exam Narrative: GEN: well nourished, well appearing male, alert and oriented x 3, patient appears to be in mild distress. HEENT: Atraumatic, pupils are equal round reactive to light, extraocular movements are intact, nares are clear, TMs are clear with no fluid, there is no conjunctival pallor. Throat is clear without any exudates, erythema, tonsillar enlargement or uvular deviation, patient has Hard C-collar in place. HEART: Regular rate and rhythm without murmur, clicks, rubs. LUNGS:Lungs clear to auscultation, no wheezes, rales, crackles, chest moves symmetrically ABD:bowel sounds normal, soft, non-tender, no guarding, rebound, rigidity, no masses noted, no hepatosplenomegaly :No CVA tenderness MSCL: Non-tender, no muscle atrophy, muscles strength 5/5 upper and lower extremities, full range of motion, normal gait. Patient able to stand and move without issue. NEURO:CN 2-12 intact, sensation normal. SKIN: no rash, no signs of infection, healing incision. Initial Vital Signs Initial Vital Signs: Vital Signs Temperature 98.4 F 12/26/18 14:21 Pulse Rate 97 H 12/26/18 14:21 Respiratory Rate 16 12/26/18 14:21 Blood Pressure 150/87 H 12/26/18 14:21 Pulse Oximetry 98 12/26/18 14:21 Course Orders Ordered: ED Orders 12/26/18 14:25 Complete Blood Count AUTO DIFF Stat Comprehensive Metabolic Panel Stat Influenza A and B by PCR Rapid Stat Lipase Stat Partial Thromboplastin Time Stat Prothrombin Time INR Stat Troponin & CK Cardiac Panel Stat 12/26/18 14:29 XR chest 1V Stat 12/26/18 15:24 US periph venous low extrem lt Stat Discontinued Medications Aspirin (Aspirin Chew) 324 mg PO NOW ONE Stop: 12/26/18 14:30 Last Admin: 12/26/18 15:02 Dose: 324 mg Sodium Chloride (Normal Saline 0.9%) 1,000 mls @ 150 mls/hr IV CONT MINA Last Infusion: 12/26/18 17:28 Dose: 0 mls/hr Admin: 12/26/18 15:02 Dose: 150 mls/hr Lorazepam (Ativan) 1 mg IV NOW ONE Stop: 12/26/18 15:24 Last Admin: 12/26/18 15:43 Dose: 1 mg Vital Signs - 8 hr 12/26/18 14:21 12/26/18 15:05 12/26/18 16:43 Temperature 98.4 F Pulse Rate 97 H 88 82 Respiratory Rate 16 18 24 Blood Pressure 150/87 H Blood Pressure [Right Arm] 129/81 111/89 Pulse Oximetry 98 97 98 12/26/18 17:10 Temperature Pulse Rate 83 Respiratory Rate 22 Blood Pressure Blood Pressure [Right Arm] 133/82 Pulse Oximetry 98 MDM - Chest Pain Lab Data Attestation: I reviewed the patient's lab results. Result diagrams: 12/26/18 14:25 12/26/18 14:25 Lab Results 12/26/18 12/26/18 12/26/18 Range/Units 14:25 14:25 14:25 WBC 11.7 H (4.5-11.0) X10^3/uL RBC 3.94 L (4.5-5.9) X10^6/uL Hgb 12.1 L (13.5-17.5) g/dL Hct 35.9 L (41-53) % MCV 91.3 (80-100) fL MCH 30.8 (26-34) PG MCHC 33.7 (30-36) % RDW 15.1 H (11.6-14.8) % Plt Count 222 (150-400) X10^3/uL Neut % (Auto) 56.9 (50-75) % Lymph % (Auto) 32.6 (25-40) % [place] % (Auto) 7.6 (3-14) % Eos % (Auto) 2.4 (2-4) % Baso % (Auto) 0.5 (0-2) % Neut # (Auto) 6700 (5488-7158) /uL Lymph # (Auto) 3800 (4052-1607) /uL [place] # (Auto) 900 (0-900) /uL Eos # (Auto) 300 (0-450) /uL Baso # (Auto) 100 (0-100) /uL PT 11.9 (10.1-12.7) SECONDS INR 1.0 (0.9-1.3) APTT 27 (26.4-36.2) SECONDS Sodium 136 L (137-145) mmol/L Potassium 4.1 (3.4-5.1) mmol/L Chloride 101 (98-107) mmol/L Carbon Dioxide 21 L (22-32) mmol/L BUN 17 (9-20) mg/dL Creatinine 1.40 H (0.66-1.25) mg/dL Estimated GFR 50.7 L (>60) mL/min BUN/Creatinine Ratio 12.1 (6-22) Glucose 153 H (80-110) mg/dL Calcium 9.0 (8.4-10.2) mg/dL Total Bilirubin 1.5 H (0.2-1.3) mg/dL AST 21 (17-59) IU/L ALT 20 L (21-72) IU/L Alkaline Phosphatase 136 H (38-126) U/L Total Creatine Kinase 93 (55-170) U/L CK-MB (CK-2) TNP CK-MB (CK-2) Rel Index TNP Troponin I 0.013 (0.01-0.034) ng/mL Total Protein 7.5 (6.3-8.2) g/dL Albumin 4.3 (3.5-5.0) g/dL Globulin 3.2 (1.7-4.1) g/dL Albumin/Globulin Ratio 1.3 (1.0-2.8) Lipase 25 (23-300) U/L Influenza A & B (PCR) (Negative) 12/26/18 Range/Units 14:25 WBC (4.5-11.0) X10^3/uL RBC (4.5-5.9) X10^6/uL Hgb (13.5-17.5) g/dL Hct (41-53) % MCV (80-100) fL MCH (26-34) PG MCHC (30-36) % RDW (11.6-14.8) % Plt Count (150-400) X10^3/uL Neut % (Auto) (50-75) % Lymph % (Auto) (25-40) % [place] % (Auto) (3-14) % Eos % (Auto) (2-4) % Baso % (Auto) (0-2) % Neut # (Auto) (7465-0799) /uL Lymph # (Auto) (7430-0489) /uL [place] # (Auto) (0-900) /uL Eos # (Auto) (0-450) /uL Baso # (Auto) (0-100) /uL PT (10.1-12.7) SECONDS INR (0.9-1.3) APTT (26.4-36.2) SECONDS Sodium (137-145) mmol/L Potassium (3.4-5.1) mmol/L Chloride (98-107) mmol/L Carbon Dioxide (22-32) mmol/L BUN (9-20) mg/dL Creatinine (0.66-1.25) mg/dL Estimated GFR (>60) mL/min BUN/Creatinine Ratio (6-22) Glucose (80-110) mg/dL Calcium (8.4-10.2) mg/dL Total Bilirubin (0.2-1.3) mg/dL AST (17-59) IU/L ALT (21-72) IU/L Alkaline Phosphatase (38-126) U/L Total Creatine Kinase (55-170) U/L CK-MB (CK-2) CK-MB (CK-2) Rel Index Troponin I (0.01-0.034) ng/mL Total Protein (6.3-8.2) g/dL Albumin (3.5-5.0) g/dL Globulin (1.7-4.1) g/dL Albumin/Globulin Ratio (1.0-2.8) Lipase (23-300) U/L Influenza A & B (PCR) Negative (Negative) Imaging Data Chest x-ray: Radiologist's impression: [address] [address] XRay Report Signed Patient: Hector Harper EMR#: [id number] : 2At:[id number] Age/Sex: 68 / MDate of Service: 12/26/18 Loc: ED Accession Number: [id number] Procedure: XR chest 1V Ordering Provider: Ale Hu D.O. PROCEDURE: XR CHEST 1V INDICATIONS: chest pain, sob, cough TECHNIQUE: One view of the chest was acquired. COMPARISON: [facility], CR, CHEST 1 VIEW, 02/02/2018, 17:12. [facility], CR, XR CHEST 1V, 04/29/2018, 13:54. FINDINGS: Surgical changes and devices: None. Lungs and pleura: Lungs are clear. No pleural effusions or pneumothorax. Mediastinum: Mediastinal contours appear normal. Heart size is normal. Bones and chest wall: No suspicious bony lesions. Overlying soft tissues appear unremarkable. IMPRESSION: Chest without acute cardiopulmonary abnormalities. Dictated by: Mendoza Addison M.D. on 12/26/2018 at 14:47 Approved by: Mendoza Addison M.D. on 12/26/2018 at 14:48 Venous US: Radiologist's impression: [facility] [address] [place] [id number] Ultrasound Report Signed Patient: Hector Harper EMR#: [id number] : 2At:[id number] Age/Sex: 68 / MDate of Service: 12/26/18 Loc: ED Accession Number: [id number] Procedure: US periph venous low extrem lt Ordering Provider: Ale Hu D.O. PROCEDURE: US PERIPH VENOUS LOW EXTREM LT INDICATIONS: LEFT LEG CRAMPING, RECENT NECK SURGERY TECHNIQUE: Real-time imaging, as well as color and pulse Doppler interrogation, were performed of the lower extremity deep veins from the inguinal ligament to the popliteal fossa. COMPARISON: None. FINDINGS: The deep veins are normally compressible, and free of intraluminal thrombus. Color and pulse Doppler demonstrate normal phasic intraluminal flow. There is normal augmentation response to distal compression maneuver. IMPRESSION: No DVT in the left lower extremity. Dictated by: Antoinette Young M.D. on 12/26/2018 at 16:38 Approved by: Antoinette Young M.D. on 12/26/2018 at 16:39 ECG Data Attestation: I personally reviewed and interpreted this ECG as follows: Prior ECG tracings: available for review Interpretation: Sinus tachycardia with a rate of 100 UT of 176 QRS of 99 and QTC of 396. No ST elevation or depression. Patient has prior EKG that appears similar from 04/29/2018 MDM Narrative Medical decision making narrative: Recheck after medication, patient cramping sensation is much better and patient is more comfortable. Patient has slightly elevated white count although no clear signs of infection, hemoglobin is 12. this appears consistent with priors. Patient's electrolytes not show any major abnormalities. Patient's bilirubin is slightly elevated as well alk phos at 1:36 a.m. troponin is at 0.013. Chest Xray shows no acute process. US of lower extremity is negative for DVT. Discussed with patient and plan for d/c home as suspicion for cardiac cause with all over cramping is much less likely, as is PE with negative dvt. Patient does not show any changes consistent with rhabdo on labs work. Discharge Plan Departure Patient Disposition: Home Clinical Impression: Cramps, muscle, general, Elevated bilirubin, Atypical chest pain Discharge Date/Time: 12/26/18 17:50 Interventions: ED Discharge Assessment Last Done: 12/26/18 17:49 Instructions: DI for Atypical Chest Pain Activity Restrictions/Additional Instructions: Follow up with your physician in the next 3-5 days, call Saturday morning for an appointment. Continue your home medication as prescribed. Take ativan 1 tablet every 6-8 hours as needed for muscle cramps/spasm. This medication can make you sleepy do not drive, perform hazards activities or make any major decisions while taking it. Return to ER for fevers greater than 100.4F, shortness of breath, new chest pain, passing out, persistent vomiting, new weakness, numbness, black or bloody stools or other new or concerning symptoms. Prescriptions: New lorazepam [Ativan] 0.5 mg tablet 0.5 mg PO BID-TID PRN (Reason: muscle spasm) Qty: 7 RF: 0 No Action fluticasone 50 mcg/actuation spray,suspension 1 spray Intranasal BID Qty: 16 RF: 0 amlodipine 10 mg tablet 10 mg PO DAILY Qty: 90 RF: 3 oxybutynin chloride 15 MG tablet extended release 24hr 15 mg PO DAILY Qty: 0 RF: 0 aspirin 81 MG tablet,delayed release (DR/EC) 81 mg PO DAILY Qty: 0 RF: 0 isosorbide mononitrate 60 MG tablet extended release 24 hr 60 mg PO QAM Qty: 30 RF: 10 glipizide 5 mg tablet 2.5 mg PO BID Qty: 30 RF: 3 duloxetine [Cymbalta] 30 mg capsule,delayed release(DR/EC) 30 mg PO BID Qty: 180 RF: 0 Glucose: Test Strips 1 strip miscellaneous DIRECTED RF: 0 metoprolol succinate 100 mg tablet extended release 24 hr 50 mg PO DAILY RF: 0 tamsulosin 0.4 mg capsule 0.4 mg PO DAILY RF: 0 losartan 100 mg tablet 50 mg PO DAILY RF: 0 gabapentin [Neurontin] 600 mg tablet 1,200 mg PO TID RF: 0 Referrals: Johanny Cuadra DO [Primary Care Provider] -
[2018-12-26] MEDS: LORazepam 2 MG/ML SYRINGE 1 MG IV (15:43)
[2018-12-26 16:43] VITALS: BP 111/89; PULSE 82; RESP 24; O2SAT 98
[2018-12-26 17:10] VITALS: BP 133/82; PULSE 83; RESP 22; O2SAT 98
== END 2018-12-26 17:50 | disposition home or self-care (01) ==
PROVIDERS: Emergency Provider Emergency Medicine; PCP Family Medicine
DX: R25.2 Cramp and spasm (principal); R17 Unspecified jaundice; R07.89 Other chest pain
CPT/HCPCS: 36591; 71045; 80053; 82550; 83690; 84484; 85025; 85610; 85730; 87400; 93005; 93041; 93971; 96361; 96374; 99284; 99285; J2060

== ENCOUNTER → 2018-12-30 11:33 | Outpatient (CLI) | payer MEDICARE, OTHER, SELFPAY ==
[2018-04-29 17:17] VITALS: BMI 25.2
--- NOTE | 2018-12-30 11:36 | DI.ECHO.S_ITS ---
[facility] +---------+ Hospital +---------+ : : [address] : : : : [id number] : : : : Phone: [phone]+ Echocardiogram Report + + :Name: BHASKAR QUIÑONES Study Date: 12/30/2018 Height: 72 in : :[facility] Weight: 189 lb : : Gender: Male BSA: 2.1 m2 : :: 1950 Age: 68 yrs BP: 140/68 mmHg: :Reason For Study: Aortic Stenosis : :Ordering Physician: Bhargavi : :Jarrett Performed By: Gloria Joel : :Referring: BHARGAVI NICHOLS : + + Interpretation Summary The left ventricle is normal in size. Left ventricular ejection fraction is estimated to be 65 +/- 5%. The right ventricle is normal in size and function. The aortic valve is moderately calcified. A bicuspid aortic valve cannot be excluded. Leaflet mobility is moderately reduced. The peak aortic velocity is 2.75 m/sec. The aortic valve mean gradient is 16 mmHg. The peak aortic velocity on the previous exam was 3.5 m/sec. sev ratio: 0.41 There is no hemodynamically significant valvular aortic stenosis. There is mild to moderate aortic stenosis. There is mild aortic regurgitation. Compared to the prior echo study, there has been no change in the severity of aortic regurgitation. The ascending aorta is moderately enlarged. Asc Aorta Diam: 4.5 cm. In dec 2017, it was 4.4 cm. Procedure: A two-dimensional transthoracic echocardiogram with color flow and Doppler was performed. The study quality was technically adequate. Comparison is made with the echocardiogram of 12/30/2017. The patient was in normal sinus rhythm during the exam. Left Ventricle: The left ventricle is normal in size. Left ventricular wall thickness is borderline increased. A false chord is noted (normal variant). Left ventricular ejection fraction is estimated to be 65 +/- 5%. Septal motion is consistent with conduction abnormality. MV E/A: 0.85. Right Ventricle: The right ventricle is normal in size and function. Atria: Both atria are normal in size. The left atrium has mildly decreased in size since the prior echo exam. The interatrial septum is intact with no evidence for an atrial septal defect. Mitral Valve: The mitral valve leaflets appear mildly thickened, but open well. There is mild mitral annular calcification. There is trace mitral regurgitation. Aortic Valve: The aortic valve is moderately calcified. A bicuspid aortic valve cannot be excluded. Leaflet mobility is moderately reduced. The peak aortic velocity is 2.75 m/sec. The aortic valve mean gradient is 16 mmHg. The calculated aortic valve area is 1.9 cm2. The peak aortic velocity on the previous exam was 3.5 m/sec. There is no hemodynamically significant valvular aortic stenosis. There is mild to moderate aortic stenosis. There is mild aortic regurgitation. Compared to the prior echo study, there has been no change in the severity of aortic regurgitation. Tricuspid Valve: The tricuspid valve is normal in structure and function. There is a trace or physiologic amount of tricuspid regurgitation. Pulmonary artery pressures cannot be estimated because of the lack of a measurable TR jet velocity. Pulmonic Valve: The pulmonic valve is not well seen, but is grossly normal. There is a trace or physiologic amount of pulmonic regurgitation. Great Vessels: The aortic root is mildly dilated. There is aortic root sclerosis/calcification. The ascending aorta is moderately enlarged. The IVC is of normal diameter and collapses greater than 50% with a sniff. This suggests a low right atrial pressure of 3 mm Hg. Pericardium/ Pleura There is a trivial to small pericardial effusion noted. There is no pleural effusion. MMode/2D Measurements & Calculations LVIDd: 5.6 cm LVOT diam: 2.4 cm LVIDs: 2.9 cm Ao root diam: 4.0 cm FS: 47.4 % asc Aorta Diam: 4.5 cm IVSd: 0.85 cm LVPWd: 1.1 cm LV parikh. diameter/BSA (cm/m^2): 2.7 LV sys. diameter/BSA (cm/m^2): 1.4 LA A2 area: 20.9 cm2 RA long axis: 4.9 cm LA A4 area: 13.8 cm2 RA area: 13.1 cm2 LA length (vol): 5.0 cm RA vol: 29.6 ml LA vol: 49.0 ml RA : 14.2 ml/m2 LA vol index: 23.5 ml/m2 TAPSE: 2.9 cm Doppler Measurements & Calculations Ao V2 max: 275.2 cm/sec LVOT Max Alex: 108.5 cm/sec Ao V2 mean: 181.4 cm/sec LV V1 max P.7 mmHg Ao max P.3 mmHg LV V1 VTI: 24.5 cm Ao mean P.6 mmHg ROBERTO(I,D): 1.9 cm2 Ao V2 VTI: 60.4 cm ROBERTO(V,D): 1.9 cm2 sev ratio: 0.41 ROBERTO indexed to BSA (cm^2/m^2): 0.92 MV E max alex: 75.6 cm/sec PA V2 max: 73.1 cm/sec MV A max alex: 88.5 cm/sec PA V2 mean: 50.8 cm/sec MV E/A: 0.85 PA mean P.1 mmHg MV dec time: 0.22 sec PA pr(Accel): 4.1 mmHg SV(LVOT): 115.2 ml Reading Physician:JONATHON
== END ==
PROVIDERS: PCP Family Medicine; Visit Provider Internal Medicine Cardiovascular Disease
DX: I35.2 Nonrheumatic aortic (valve) stenosis with insufficiency (principal)
CPT/HCPCS: 93306

== ENCOUNTER → 2019-03-27 07:28 | Outpatient (CLI) | payer MEDICARE, OTHER, SELFPAY ==
[2018-04-29 17:17] VITALS: BMI 25.2
[2019-03-27 08:33] LABS: Alanine Aminotransferase 29 IU/L (21-72); Albumin 4.5 g/dL (3.5-5.0); Albumin Globulin Ratio 1.6 (1.0-2.8); Alkaline Phosphatase 86 U/L (38-126); Aspartate Aminotransferase 40 IU/L (17-59); BUN Creatinine Ratio 14.3 (6-22); Bilirubin Total 1.1 mg/dL (0.2-1.3); Blood Urea Nitrogen 20 mg/dL (9-20); Calcium 9.5 mg/dL (8.4-10.2); Carbon Dioxide 25 mmol/L (22-32); Chloride 99 mmol/L (98-107); Estimated Glomerular Filt Rate 50.7 mL/min (>60); Globulin 2.9 g/dL (1.7-4.1); Glucose 141 mg/dL (80-110); HEMOLYSIS < 15 (0-50); Hemoglobin A1C% w Est Avg Glu 5.5 % (4.0-6.0); Potassium 4.2 mmol/L (3.4-5.1); Sodium 137 mmol/L (137-145); Total Protein 7.4 g/dL (6.3-8.2)
== END ==
PROVIDERS: Family Provider Student in an Organized Health Care Education/Training Program; PCP Family Medicine; Visit Provider Family Medicine
DX: E11.9 Type 2 diabetes mellitus without complications (principal); I10 Essential (primary) hypertension
CPT/HCPCS: 36415; 80053; 83036

== ENCOUNTER 2019-03-31 14:30 | Outpatient (RCR) | payer MEDICARE, OTHER, SELFPAY ==
[2018-04-29 17:17] VITALS: BMI 25.2
--- NOTE | 2018-12-30 16:58 | PT.OTN ---
Current Diagnoses Radiculopathy, cervical region (12/30/18) Arthrodesis status (12/30/18) Physical Therapy Treatment Note PT-OP-A Visit Information Start: 12/18/18 08:14 Freq: Status: Active Protocol: Document 12/30/18 09:47 SAK (Rec: 12/30/18 10:37 SAK [id number]) Out-Patient Physical Therapy Visit Information Visit Information Visit Type Treatment Note Visit Start Time 09:45 Visit Stop Time 10:35 Total Visit Minutes 50 Visit Number 2 Number of DIAMOND DRILLER HELPER Visits 0 PT-OP-B Current Condition Start: 12/18/18 08:14 Freq: Status: Active Protocol: Document 12/18/18 09:49 SAK (Rec: 12/18/18 10:00 SAK [id number]) Current Condition History of Current Condition Onset Date 12/08/18 Current Complaints pain, decreased ROM and strength of cervical spine History of Current Condition C2-5 spine surgery cleaned up and put in 4 spacers due to pain and crepitus in neck. Reports off pain med 2 days after surgery. Anticipating right shoulder surgery. Wearing rigid collar. Future Testing and Treatments Planned Goes back to surgeon Jan 07. Anticipating surgery for right shoulder in near future. Treatment Goals Patient/Caregiver Goals Regain functional use of his neck including ability to turn head for safe driving, move in all directions without pain Prior Functional Status Baseline Function- ADL's Independent Baseline Function- Mobility Independent Baseline Function- Recreation/Hobbies hiking independent Current Functional Impairments (Reported) Functional Limitations- ADL's painful Functional Limitations- Mobility/Gait slow, guarded Functional Limitations- Recreation/ limited Hobbies Personal Factors Other Personal Factors That May Effect history chronic pain Therapy/Recovery PT-OP-C Subjective Start: 12/18/18 08:14 Freq: Status: Active Protocol: Document 12/30/18 09:47 SAK (Rec: 12/30/18 16:58 SAK [id number]) OP-PT Subjective Patient Comments Patient Comments Reports has had a cold and been coughing. Reports doctor told him he could have difficulty with swallowing after his cervical surgery and he states he is. Receptive to speech therapy as recommended by PT. PT-OP-F Manual Assessment Start: 12/18/18 08:14 Freq: Status: Active Protocol: Document 12/18/18 09:49 SAK (Rec: 12/19/18 12:32 [facility] [id number]) Manual Assessments Soft Tissue Assessment Soft Tissue Mobility Assessment Decreased mobility left cervical spine, upper trap musculature. Joint Mobility Assessment Joint Mobility Assessment deferred due to surgery PT-OP-H Neuro Start: 12/18/18 08:14 Freq: Status: Active Protocol: Document 12/18/18 09:49 SAK (Rec: 12/19/18 12:32 [facility] [id number]) Sensation Evaluation Gross Sensation Sensation Description Numbness Tingling PT-OP-J Posture/Palpation/Skin Start: 12/18/18 08:14 Freq: Status: Active Protocol: Document 12/18/18 09:49 [facility] (Rec: 12/19/18 13:07 [facility] [id number]) Posture Evaluation Position Sitting Head/C-Spine Posture Extended Forward Head T-Spine Posture Increased Kyphosis Comments Posture Comments wearing rigid cervical collar. Palpation Assessment Location cervical spine Palpation Findings Soft Tissue Tightness Muscle Guarding Tenderness Palpation Details right cervical spine and upper traps Skin Assessment Incisional Assessment Incision Appearance/Comments healing well, no signs or symptoms of infection PT-OP-K Range of Motion Start: 12/18/18 08:14 Freq: Status: Active Protocol: Document 12/18/18 09:49 [facility] (Rec: 12/19/18 13:07 [facility] [id number]) Cervical Spine Range of Motion Cervical Spine Active Testing Position Sitting Flexion 35 Extension 10 Rotation Left 15 Rotation Right 15 Lateral Flexion Left 10 Lateral Flexion Right 10 ROM Limitations Soft Tissue Tightness PT-OP-M Strength Start: 12/18/18 08:14 Freq: Status: Active Protocol: Document 12/18/18 09:49 [facility] (Rec: 12/19/18 13:07 [facility] [id number]) Cervical Spine Strength Cervical Spine Manual Muscle Testing Reason Not Measured Orthopedic Precautions Shoulder Strength Shoulder Manual Muscle Testing coleen Reason Not Measured Orthopedic Precautions PT-OP-Q Treatments Start: 12/18/18 08:14 Freq: Status: Active Protocol: Document 12/30/18 09:47 [facility] (Rec: 12/30/18 16:58 [facility] [id number]) Therapeutic Exercises Supine Exercises shld blade squeeze Reps/Minutes 5x sh shrugs Reps/Minutes 5x sh ER/IR Reps/Minutes 10x shoulder hor ab/ad Reps/Minutes 10x chest press Resistance 0 Reps/Minutes 10x postural isometric Reps/Minutes 10x Manual Therapy Treatment Soft Tissue Mobilization manual pec stretch] Mobilization Type Sustained Pressure Intensity/Depth Moderate Body Position Hooklying upper traps, rhomboids, levator scap Mobilization Type Myofascial Release Rolling Sustained Pressure Intensity/Depth Moderate Body Position Hooklying Self-Care/Home Management Treatment Education Patient Education Body Mechanics Home Exercise Program Joint Protection Posture Other Education updated handout PT-OP-R Modalities Start: 12/18/18 08:14 Freq: Status: Active Protocol: Document 12/30/18 09:47 [facility] (Rec: 12/30/18 16:58 [facility] [id number]) Hot Pack/Cold Pack Treatment cervical spine Location hot pack 5 min beginning of session, ice pack 10 min at end of session Patient Position Hooklying Treatment Duration (minutes) 15 Patient Tolerance Good PT-OP-T Assessment and Plan Start: 12/18/18 08:14 Freq: Status: Active Protocol: Document 12/30/18 09:47 [facility] (Rec: 12/30/18 16:58 [facility] [id number]) Physical Therapy Assessment Goals Three Industrial Maintenance Electrician Goal (LTG) Improve soft tissue mobility in cervical spine to WNL LTG Duration 3 months Two Impairment decreased strength cervical spine Industrial Maintenance Electrician Goal (LTG) Improve cervical spine strength to WNL to improve patient's function LTG Duration 3 months One Impairment limited cervical ROM Industrial Maintenance Electrician Goal (LTG) Cervical spine ROM WNL to allow patient to turn adequately for driving and ADL 's LTG Duration 3 months Assessment Summary Assessment Good tolerance for ther ex with mod cues to perform in pain-free ROM slow, controlled speed. Physical Therapy Plan Frequency and Duration Frequency of Treatment 2x/Week Duration of Treatment 3 months Plan of Care Start Date 12/18/18 Plan of Care End Date 03/17/19 Therapeutic Interventions Therapeutic Interventions Aquatic Therapy Home Exercise Program Manual Therapy Neuromuscular Re-education Patient/Caregiver Education Self-Care/Home Management Soft Tissue Mobilization Taping Therapeutic Activities Therapeutic Exercises Modalities Cold Pack/Ice Massage Electric Stimulation Hot Packs Next Visit Focus/Plan Next Note Type Treatment Note Next Visit Plan Continue PT with emphasis on postural strengthening per physician order.
--- NOTE | 2019-01-06 11:03 | PT.OTN ---
Current Diagnoses Radiculopathy, cervical region (01/06/19) Arthrodesis status (01/06/19) Physical Therapy Treatment Note PT-OP-A Visit Information Start: 12/18/18 08:14 Freq: Status: Active Protocol: Document 01/06/19 09:56 SAK (Rec: 01/06/19 10:31 SAK [id number]) Out-Patient Physical Therapy Visit Information Visit Information Visit Type Treatment Note Visit Start Time 09:45 Visit Stop Time 10:35 Total Visit Minutes 50 Visit Number 3 PT-OP-B Current Condition Start: 12/18/18 08:14 Freq: Status: Active Protocol: Document 12/18/18 09:49 SAK (Rec: 12/18/18 10:00 SAK [id number]) Current Condition History of Current Condition Onset Date 12/08/18 Current Complaints pain, decreased ROM and strength of cervical spine History of Current Condition C2-5 spine surgery cleaned up and put in 4 spacers due to pain and crepitus in neck. Reports off pain med 2 days after surgery. Anticipating right shoulder surgery. Wearing rigid collar. Future Testing and Treatments Planned Goes back to surgeon Jan 07. Anticipating surgery for right shoulder in near future. Treatment Goals Patient/Caregiver Goals Regain functional use of his neck including ability to turn head for safe driving, move in all directions without pain Prior Functional Status Baseline Function- ADL's Independent Baseline Function- Mobility Independent Baseline Function- Recreation/Hobbies hiking independent Current Functional Impairments (Reported) Functional Limitations- ADL's painful Functional Limitations- Mobility/Gait slow, guarded Functional Limitations- Recreation/ limited Hobbies Personal Factors Other Personal Factors That May Effect history chronic pain Therapy/Recovery PT-OP-C Subjective Start: 12/18/18 08:14 Freq: Status: Active Protocol: Document 01/06/19 09:56 SAK (Rec: 01/06/19 10:31 SAK [id number]) OP-PT Subjective Patient Comments Patient Comments Massage last session got to my nerve in my neck on the right More difficulty doing shoulder shrugs since. PT-OP-F Manual Assessment Start: 12/18/18 08:14 Freq: Status: Active Protocol: Document 12/18/18 09:49 SAK (Rec: 12/19/18 12:32 [facility] [id number]) Manual Assessments Soft Tissue Assessment Soft Tissue Mobility Assessment Decreased mobility left cervical spine, upper trap musculature. Joint Mobility Assessment Joint Mobility Assessment deferred due to surgery PT-OP-H Neuro Start: 12/18/18 08:14 Freq: Status: Active Protocol: Document 12/18/18 09:49 [facility] (Rec: 12/19/18 12:32 [facility] [id number]) Sensation Evaluation Gross Sensation Sensation Description Numbness Tingling PT-OP-J Posture/Palpation/Skin Start: 12/18/18 08:14 Freq: Status: Active Protocol: Document 12/18/18 09:49 [facility] (Rec: 12/19/18 13:07 [facility] [id number]) Posture Evaluation Position Sitting Head/C-Spine Posture Extended Forward Head T-Spine Posture Increased Kyphosis Comments Posture Comments wearing rigid cervical collar. Palpation Assessment Location cervical spine Palpation Findings Soft Tissue Tightness Muscle Guarding Tenderness Palpation Details right cervical spine and upper traps Skin Assessment Incisional Assessment Incision Appearance/Comments healing well, no signs or symptoms of infection PT-OP-K Range of Motion Start: 12/18/18 08:14 Freq: Status: Active Protocol: Document 12/18/18 09:49 [facility] (Rec: 12/19/18 13:07 [facility] [id number]) Cervical Spine Range of Motion Cervical Spine Active Testing Position Sitting Flexion 35 Extension 10 Rotation Left 15 Rotation Right 15 Lateral Flexion Left 10 Lateral Flexion Right 10 ROM Limitations Soft Tissue Tightness PT-OP-M Strength Start: 12/18/18 08:14 Freq: Status: Active Protocol: Document 12/18/18 09:49 [facility] (Rec: 12/19/18 13:07 [facility] [id number]) Cervical Spine Strength Cervical Spine Manual Muscle Testing Reason Not Measured Orthopedic Precautions Shoulder Strength Shoulder Manual Muscle Testing coleen Reason Not Measured Orthopedic Precautions PT-OP-Q Treatments Start: 12/18/18 08:14 Freq: Status: Active Protocol: Document 01/06/19 09:56 SAK (Rec: 01/06/19 10:31 [facility] [id number]) Cardio Equipment Recumbent Stepper (Sci-Fit) Duration (Minutes) 5 Resistance 1 Other No UE's Therapeutic Exercises Supine Exercises bicep curl Reps/Minutes 10x serratus punch Reps/Minutes 10x shld blade squeeze Reps/Minutes 5x sh shrugs Reps/Minutes 5x sh ER/IR Reps/Minutes 10x shoulder hor ab/ad Reps/Minutes 10x chest press Resistance 0 Reps/Minutes 10x postural isometric Reps/Minutes 10x Standing Exercises wall posture Reps/Minutes 3 min Comments cues for gentle correction Manual Therapy Treatment Soft Tissue Mobilization manual pec stretch] Mobilization Type Sustained Pressure Intensity/Depth Moderate Body Position Hooklying upper traps, rhomboids, levator scap Mobilization Type Myofascial Release Rolling Intensity/Depth gentle Body Position Hooklying Self-Care/Home Management Treatment Education Patient Education Body Mechanics Joint Protection Pain Management Posture PT-OP-R Modalities Start: 12/18/18 08:14 Freq: Status: Active Protocol: Document 01/06/19 09:56 SAK (Rec: 01/06/19 11:02 [facility] [id number]) Hot Pack/Cold Pack Treatment cervical spine Patient Position Hooklying Comments coleen upper traps and periscapular area. PT-OP-T Assessment and Plan Start: 12/18/18 08:14 Freq: Status: Active Protocol: Document 01/06/19 09:56 [facility] (Rec: 01/06/19 11:02 [facility] [id number]) Physical Therapy Assessment Goals Three Senior Living Goal (LTG) Improve soft tissue mobility in cervical spine to WNL LTG Duration 3 months Two Impairment decreased strength cervical spine Chief Of Police Goal (LTG) Improve cervical spine strength to WNL to improve patient's function LTG Duration 3 months One Impairment limited cervical ROM Senior Living Goal (LTG) Cervical spine ROM WNL to allow patient to turn adequately for driving and ADL 's LTG Duration 3 months Assessment Summary Assessment Patient needs moderate postural cues, including cues to prevent overcorrection with standing postural isometric/ wall posture; better tolerance supine at this time. Physical Therapy Plan Frequency and Duration Frequency of Treatment 2x/Week Duration of Treatment 3 months Plan of Care Start Date 12/18/18 Plan of Care End Date 03/17/19 Next Visit Focus/Plan Next Note Type Treatment Note Next Visit Plan add shuttle balance on easiest setting to facilitate postural muscles, gentle progression of ex as tolerated .
--- NOTE | 2019-01-06 11:03 | PT.OTN ---
Current Diagnoses Radiculopathy, cervical region (01/06/19) Arthrodesis status (01/06/19) Physical Therapy Treatment Note PT-OP-A Visit Information Start: 12/18/18 08:14 Freq: Status: Active Protocol: Document 01/06/19 09:56 SAK (Rec: 01/06/19 10:31 SAK [id number]) Out-Patient Physical Therapy Visit Information Visit Information Visit Type Treatment Note Visit Start Time 09:45 Visit Stop Time 10:35 Total Visit Minutes 50 Visit Number 3 PT-OP-B Current Condition Start: 12/18/18 08:14 Freq: Status: Active Protocol: Document 12/18/18 09:49 SAK (Rec: 12/18/18 10:00 SAK [id number]) Current Condition History of Current Condition Onset Date 12/08/18 Current Complaints pain, decreased ROM and strength of cervical spine History of Current Condition C2-5 spine surgery cleaned up and put in 4 spacers due to pain and crepitus in neck. Reports off pain med 2 days after surgery. Anticipating right shoulder surgery. Wearing rigid collar. Future Testing and Treatments Planned Goes back to surgeon Jan 07. Anticipating surgery for right shoulder in near future. Treatment Goals Patient/Caregiver Goals Regain functional use of his neck including ability to turn head for safe driving, move in all directions without pain Prior Functional Status Baseline Function- ADL's Independent Baseline Function- Mobility Independent Baseline Function- Recreation/Hobbies hiking independent Current Functional Impairments (Reported) Functional Limitations- ADL's painful Functional Limitations- Mobility/Gait slow, guarded Functional Limitations- Recreation/ limited Hobbies Personal Factors Other Personal Factors That May Effect history chronic pain Therapy/Recovery PT-OP-C Subjective Start: 12/18/18 08:14 Freq: Status: Active Protocol: Document 01/06/19 09:56 SAK (Rec: 01/06/19 10:31 SAK [id number]) OP-PT Subjective Patient Comments Patient Comments Massage last session got to my nerve in my neck on the right More difficulty doing shoulder shrugs since. PT-OP-F Manual Assessment Start: 12/18/18 08:14 Freq: Status: Active Protocol: Document 12/18/18 09:49 SAK (Rec: 12/19/18 12:32 [facility] [id number]) Manual Assessments Soft Tissue Assessment Soft Tissue Mobility Assessment Decreased mobility left cervical spine, upper trap musculature. Joint Mobility Assessment Joint Mobility Assessment deferred due to surgery PT-OP-H Neuro Start: 12/18/18 08:14 Freq: Status: Active Protocol: Document 12/18/18 09:49 [facility] (Rec: 12/19/18 12:32 [facility] [id number]) Sensation Evaluation Gross Sensation Sensation Description Numbness Tingling PT-OP-J Posture/Palpation/Skin Start: 12/18/18 08:14 Freq: Status: Active Protocol: Document 12/18/18 09:49 [facility] (Rec: 12/19/18 13:07 [facility] [id number]) Posture Evaluation Position Sitting Head/C-Spine Posture Extended Forward Head T-Spine Posture Increased Kyphosis Comments Posture Comments wearing rigid cervical collar. Palpation Assessment Location cervical spine Palpation Findings Soft Tissue Tightness Muscle Guarding Tenderness Palpation Details right cervical spine and upper traps Skin Assessment Incisional Assessment Incision Appearance/Comments healing well, no signs or symptoms of infection PT-OP-K Range of Motion Start: 12/18/18 08:14 Freq: Status: Active Protocol: Document 12/18/18 09:49 [facility] (Rec: 12/19/18 13:07 [facility] [id number]) Cervical Spine Range of Motion Cervical Spine Active Testing Position Sitting Flexion 35 Extension 10 Rotation Left 15 Rotation Right 15 Lateral Flexion Left 10 Lateral Flexion Right 10 ROM Limitations Soft Tissue Tightness PT-OP-M Strength Start: 12/18/18 08:14 Freq: Status: Active Protocol: Document 12/18/18 09:49 [facility] (Rec: 12/19/18 13:07 [facility] [id number]) Cervical Spine Strength Cervical Spine Manual Muscle Testing Reason Not Measured Orthopedic Precautions Shoulder Strength Shoulder Manual Muscle Testing coleen Reason Not Measured Orthopedic Precautions PT-OP-Q Treatments Start: 12/18/18 08:14 Freq: Status: Active Protocol: Document 01/06/19 09:56 SAK (Rec: 01/06/19 10:31 [facility] [id number]) Cardio Equipment Recumbent Stepper (Sci-Fit) Duration (Minutes) 5 Resistance 1 Other No UE's Therapeutic Exercises Supine Exercises bicep curl Reps/Minutes 10x serratus punch Reps/Minutes 10x shld blade squeeze Reps/Minutes 5x sh shrugs Reps/Minutes 5x sh ER/IR Reps/Minutes 10x shoulder hor ab/ad Reps/Minutes 10x chest press Resistance 0 Reps/Minutes 10x postural isometric Reps/Minutes 10x Standing Exercises wall posture Reps/Minutes 3 min Comments cues for gentle correction Manual Therapy Treatment Soft Tissue Mobilization manual pec stretch] Mobilization Type Sustained Pressure Intensity/Depth Moderate Body Position Hooklying upper traps, rhomboids, levator scap Mobilization Type Myofascial Release Rolling Intensity/Depth gentle Body Position Hooklying Self-Care/Home Management Treatment Education Patient Education Body Mechanics Joint Protection Pain Management Posture PT-OP-R Modalities Start: 12/18/18 08:14 Freq: Status: Active Protocol: Document 01/06/19 09:56 SAK (Rec: 01/06/19 11:02 [facility] [id number]) Hot Pack/Cold Pack Treatment cervical spine Patient Position Hooklying Comments coleen upper traps and periscapular area. PT-OP-T Assessment and Plan Start: 12/18/18 08:14 Freq: Status: Active Protocol: Document 01/06/19 09:56 [facility] (Rec: 01/06/19 11:02 [facility] [id number]) Physical Therapy Assessment Goals Three Assisted Goal (LTG) Improve soft tissue mobility in cervical spine to WNL LTG Duration 3 months Two Impairment decreased strength cervical spine Operator Catalyst Concentration Goal (LTG) Improve cervical spine strength to WNL to improve patient's function LTG Duration 3 months One Impairment limited cervical ROM Assisted Goal (LTG) Cervical spine ROM WNL to allow patient to turn adequately for driving and ADL 's LTG Duration 3 months Assessment Summary Assessment Patient needs moderate postural cues, including cues to prevent overcorrection with standing postural isometric/ wall posture; better tolerance supine at this time. Physical Therapy Plan Frequency and Duration Frequency of Treatment 2x/Week Duration of Treatment 3 months Plan of Care Start Date 12/18/18 Plan of Care End Date 03/17/19 Next Visit Focus/Plan Next Note Type Treatment Note Next Visit Plan add shuttle balance on easiest setting to facilitate postural muscles, gentle progression of ex as tolerated .
--- NOTE | 2019-01-09 10:15 | PT.OTN ---
Current Diagnoses Radiculopathy, cervical region (01/08/19) Arthrodesis status (01/08/19) Physical Therapy Treatment Note PT-OP-A Visit Information Start: 12/18/18 08:14 Freq: Status: Active Protocol: Document 01/08/19 10:28 SAK (Rec: 01/08/19 10:40 SAK [id number]) Out-Patient Physical Therapy Visit Information Visit Information Visit Type Treatment Note Visit Start Time 09:45 Visit Stop Time 10:35 Total Visit Minutes 50 Visit Number 4 PT-OP-B Current Condition Start: 12/18/18 08:14 Freq: Status: Active Protocol: Document 12/18/18 09:49 SAK (Rec: 12/18/18 10:00 SAK [id number]) Current Condition History of Current Condition Onset Date 12/08/18 Current Complaints pain, decreased ROM and strength of cervical spine History of Current Condition C2-5 spine surgery cleaned up and put in 4 spacers due to pain and crepitus in neck. Reports off pain med 2 days after surgery. Anticipating right shoulder surgery. Wearing rigid collar. Future Testing and Treatments Planned Goes back to surgeon Jan 07. Anticipating surgery for right shoulder in near future. Treatment Goals Patient/Caregiver Goals Regain functional use of his neck including ability to turn head for safe driving, move in all directions without pain Prior Functional Status Baseline Function- ADL's Independent Baseline Function- Mobility Independent Baseline Function- Recreation/Hobbies hiking independent Current Functional Impairments (Reported) Functional Limitations- ADL's painful Functional Limitations- Mobility/Gait slow, guarded Functional Limitations- Recreation/ limited Hobbies Personal Factors Other Personal Factors That May Effect history chronic pain Therapy/Recovery PT-OP-C Subjective Start: 12/18/18 08:14 Freq: Status: Active Protocol: Document 01/08/19 10:28 SAK (Rec: 01/08/19 10:40 SAK [id number]) OP-PT Subjective Patient Comments Patient Comments No new c/o, nerve has calmed down, easier lifting UE's. PT-OP-F Manual Assessment Start: 12/18/18 08:14 Freq: Status: Active Protocol: Document 12/18/18 09:49 SAK (Rec: 12/19/18 12:32 SAK [email or web address]) Manual Assessments Soft Tissue Assessment Soft Tissue Mobility Assessment Decreased mobility left cervical spine, upper trap musculature. Joint Mobility Assessment Joint Mobility Assessment deferred due to surgery PT-OP-H Neuro Start: 12/18/18 08:14 Freq: Status: Active Protocol: Document 12/18/18 09:49 [facility] (Rec: 12/19/18 12:32 [facility] [email or web address]) Sensation Evaluation Gross Sensation Sensation Description Numbness Tingling PT-OP-J Posture/Palpation/Skin Start: 12/18/18 08:14 Freq: Status: Active Protocol: Document 12/18/18 09:49 [facility] (Rec: 12/19/18 13:07 [facility] [id number]) Posture Evaluation Position Sitting Head/C-Spine Posture Extended Forward Head T-Spine Posture Increased Kyphosis Comments Posture Comments wearing rigid cervical collar. Palpation Assessment Location cervical spine Palpation Findings Soft Tissue Tightness Muscle Guarding Tenderness Palpation Details right cervical spine and upper traps Skin Assessment Incisional Assessment Incision Appearance/Comments healing well, no signs or symptoms of infection PT-OP-K Range of Motion Start: 12/18/18 08:14 Freq: Status: Active Protocol: Document 12/18/18 09:49 [facility] (Rec: 12/19/18 13:07 [facility] [id number]) Cervical Spine Range of Motion Cervical Spine Active Testing Position Sitting Flexion 35 Extension 10 Rotation Left 15 Rotation Right 15 Lateral Flexion Left 10 Lateral Flexion Right 10 ROM Limitations Soft Tissue Tightness PT-OP-M Strength Start: 12/18/18 08:14 Freq: Status: Active Protocol: Document 12/18/18 09:49 [facility] (Rec: 12/19/18 13:07 [facility] [id number]) Cervical Spine Strength Cervical Spine Manual Muscle Testing Reason Not Measured Orthopedic Precautions Shoulder Strength Shoulder Manual Muscle Testing coleen Reason Not Measured Orthopedic Precautions PT-OP-Q Treatments Start: 12/18/18 08:14 Freq: Status: Active Protocol: Document 01/08/19 10:28 [facility] (Rec: 01/08/19 10:40 [facility] [id number]) Cardio Equipment Recumbent Stepper (Sci-Fit) Duration (Minutes) 6 Resistance 1 Other No UE's Treadmill Duration (Minutes) 10 Speed 1.3 Therapeutic Exercises Supine Exercises shoulder flex Reps/Minutes 10x bicep curl Reps/Minutes 10x serratus punch Reps/Minutes 10x shld blade squeeze Reps/Minutes 5x sh shrugs Reps/Minutes 5x sh ER/IR Reps/Minutes 10x shoulder hor ab/ad Reps/Minutes 10x chest press Resistance 0 Reps/Minutes 10x postural isometric Reps/Minutes 10x Standing Exercises rows, shoulder ext Resistance 0 Reps/Minutes 10x Manual Therapy Treatment Soft Tissue Mobilization manual pec stretch] Mobilization Type Sustained Pressure Intensity/Depth Moderate Body Position Hooklying upper traps, rhomboids, levator scap Mobilization Type Myofascial Release Rolling Intensity/Depth gentle Body Position Hooklying Self-Care/Home Management Treatment Education Patient Education Body Mechanics Joint Protection Pain Management Posture PT-OP-R Modalities Start: 12/18/18 08:14 Freq: Status: Active Protocol: Document 01/08/19 10:28 SAK (Rec: 01/08/19 10:40 SAK [id number]) Hot Pack/Cold Pack Treatment cervical spine Patient Position Hooklying Comments coleen upper traps and periscapular area. PT-OP-T Assessment and Plan Start: 12/18/18 08:14 Freq: Status: Active Protocol: Document 01/08/19 10:28 SAK (Rec: 01/08/19 10:40 [facility] [id number]) Physical Therapy Assessment Goals Three Special Needs Librarian Goal (LTG) Improve soft tissue mobility in cervical spine to WNL LTG Duration 3 months Two Impairment decreased strength cervical spine Special Needs Librarian Goal (LTG) Improve cervical spine strength to WNL to improve patient's function LTG Duration 3 months One Impairment limited cervical ROM Fci Goal (LTG) Cervical spine ROM WNL to allow patient to turn adequately for driving and ADL 's LTG Duration 3 months Assessment Summary Assessment Less pain, improved exercise tolerance, improving postural awareness. Physical Therapy Plan Frequency and Duration Frequency of Treatment 2x/Week Duration of Treatment 3 months Plan of Care Start Date 12/18/18 Plan of Care End Date 03/17/19 Therapeutic Interventions Therapeutic Interventions Aquatic Therapy Home Exercise Program Manual Therapy Neuromuscular Re-education Patient/Caregiver Education Self-Care/Home Management Soft Tissue Mobilization Taping Therapeutic Activities Therapeutic Exercises Modalities Cold Pack/Ice Massage Electric Stimulation Hot Packs Next Visit Focus/Plan Next Note Type Treatment Note Next Visit Plan Continue to progress ther ex for postural strengthening and stabilization.
--- NOTE | 2019-01-13 15:25 | PT.OTN ---
Current Diagnoses Radiculopathy, cervical region (01/13/19) Arthrodesis status (01/13/19) Physical Therapy Treatment Note PT-OP-A Visit Information Start: 12/18/18 08:14 Freq: Status: Active Protocol: Document 01/13/19 15:15 SA (Rec: 01/13/19 15:25 SA [email or web address]) Out-Patient Physical Therapy Visit Information Visit Information Visit Type Treatment Note Visit Start Time 14:30 Visit Stop Time 15:20 Total Visit Minutes 50 Visit Number 5 PT-OP-B Current Condition Start: 12/18/18 08:14 Freq: Status: Active Protocol: Document 12/18/18 09:49 SAK (Rec: 12/18/18 10:00 SAK [id number]) Current Condition History of Current Condition Onset Date 12/08/18 Current Complaints pain, decreased ROM and strength of cervical spine History of Current Condition C2-5 spine surgery cleaned up and put in 4 spacers due to pain and crepitus in neck. Reports off pain med 2 days after surgery. Anticipating right shoulder surgery. Wearing rigid collar. Future Testing and Treatments Planned Goes back to surgeon Jan 07. Anticipating surgery for right shoulder in near future. Treatment Goals Patient/Caregiver Goals Regain functional use of his neck including ability to turn head for safe driving, move in all directions without pain Prior Functional Status Baseline Function- ADL's Independent Baseline Function- Mobility Independent Baseline Function- Recreation/Hobbies hiking independent Current Functional Impairments (Reported) Functional Limitations- ADL's painful Functional Limitations- Mobility/Gait slow, guarded Functional Limitations- Recreation/ limited Hobbies Personal Factors Other Personal Factors That May Effect history chronic pain Therapy/Recovery PT-OP-C Subjective Start: 12/18/18 08:14 Freq: Status: Active Protocol: Document 01/13/19 15:15 SA (Rec: 01/13/19 15:25 SA [id number]) OP-PT Subjective Patient Comments Patient Comments Pt reports he had appointment with surgeon this AM, note in chart for MFR, Thoracic TENS, no collar at night and follow up in 6 weeks. Pt reports feeling pretty good with no new nerve pain. PT-OP-F Manual Assessment Start: 12/18/18 08:14 Freq: Status: Active Protocol: Document 12/18/18 09:49 SAK (Rec: 12/19/18 12:32 SAK [email or web address]) Manual Assessments Soft Tissue Assessment Soft Tissue Mobility Assessment Decreased mobility left cervical spine, upper trap musculature. Joint Mobility Assessment Joint Mobility Assessment deferred due to surgery PT-OP-H Neuro Start: 12/18/18 08:14 Freq: Status: Active Protocol: Document 12/18/18 09:49 SAK (Rec: 12/19/18 12:32 [facility] [id number]) Sensation Evaluation Gross Sensation Sensation Description Numbness Tingling PT-OP-J Posture/Palpation/Skin Start: 12/18/18 08:14 Freq: Status: Active Protocol: Document 12/18/18 09:49 [facility] (Rec: 12/19/18 13:07 [facility] [id number]) Posture Evaluation Position Sitting Head/C-Spine Posture Extended Forward Head T-Spine Posture Increased Kyphosis Comments Posture Comments wearing rigid cervical collar. Palpation Assessment Location cervical spine Palpation Findings Soft Tissue Tightness Muscle Guarding Tenderness Palpation Details right cervical spine and upper traps Skin Assessment Incisional Assessment Incision Appearance/Comments healing well, no signs or symptoms of infection PT-OP-K Range of Motion Start: 12/18/18 08:14 Freq: Status: Active Protocol: Document 12/18/18 09:49 [facility] (Rec: 12/19/18 13:07 [facility] [id number]) Cervical Spine Range of Motion Cervical Spine Active Testing Position Sitting Flexion 35 Extension 10 Rotation Left 15 Rotation Right 15 Lateral Flexion Left 10 Lateral Flexion Right 10 ROM Limitations Soft Tissue Tightness PT-OP-M Strength Start: 12/18/18 08:14 Freq: Status: Active Protocol: Document 12/18/18 09:49 [facility] (Rec: 12/19/18 13:07 [facility] [id number]) Cervical Spine Strength Cervical Spine Manual Muscle Testing Reason Not Measured Orthopedic Precautions Shoulder Strength Shoulder Manual Muscle Testing coleen Reason Not Measured Orthopedic Precautions PT-OP-Q Treatments Start: 12/18/18 08:14 Freq: Status: Active Protocol: Document 01/13/19 15:15 SA (Rec: 01/13/19 15:25 SA [id number]) Cardio Equipment Recumbent Stepper (Sci-Fit) Duration (Minutes) 8 Resistance 2 Other No UE's Gym Equipment Shuttle Balance chains green Details standing bal 2 min, shallow squats x 10 Comments emphasis on postural stabilization Therapeutic Exercises Supine Exercises shoulder flex Reps/Minutes 10x bicep curl Reps/Minutes 10x serratus punch Reps/Minutes 10x shld blade squeeze Reps/Minutes 5x sh shrugs Reps/Minutes 10x sh ER/IR Reps/Minutes 10x shoulder hor ab/ad Reps/Minutes 10x chest press Reps/Minutes 10x postural isometric Reps/Minutes 10x Standing Exercises rows, shoulder ext Reps/Minutes 10x wall posture Reps/Minutes 2 min Manual Therapy Treatment Soft Tissue Mobilization Interscap/Thoracic paraspinals Mobilization Type Myofascial Release Rolling Strumming Sustained Pressure Intensity/Depth Moderate Body Position Sitting manual pec stretch] Mobilization Type Sustained Pressure Intensity/Depth Moderate Body Position Hooklying PT-OP-R Modalities Start: 12/18/18 08:14 Freq: Status: Active Protocol: Document 01/13/19 15:15 SA (Rec: 01/13/19 15:25 SA [email or web address]) Electric Stimulation Electric Stimulation IFC Body Location Thoracic/Interscap Duration (Minutes) 15 Intensity 15 Contraction Type Normal Target/Sweep Sweep Patient Position Sidelying Comments Pt has TENS unit at home, not as strong as our E-stim PT-OP-T Assessment and Plan Start: 12/18/18 08:14 Freq: Status: Active Protocol: Document 01/13/19 15:15 SA (Rec: 01/13/19 15:25 SA [email or web address]) Physical Therapy Assessment Assessment Summary Assessment Pt presents with rounded shoulder posture, but improving ability to self correct posture. Decreasing symptoms overall with consistency with HEP. Physical Therapy Plan Next Visit Focus/Plan Next Note Type Treatment Note Next Visit Plan Progress postural training and strengthening program, E- stim and thoracic STM as needed.
--- NOTE | 2019-02-03 12:15 | PT.OTN ---
Current Diagnoses Radiculopathy, cervical region (02/03/19) Arthrodesis status (02/03/19) Physical Therapy Treatment Note PT-OP-A Visit Information Start: 12/18/18 08:14 Freq: Status: Active Protocol: Document 02/03/19 09:07 EA (Rec: 02/03/19 09:46 EA [id number]) Out-Patient Physical Therapy Visit Information Visit Information Visit Type Treatment Note Visit Start Time 08:15 Visit Stop Time 09:00 Visit Number 6 PT-OP-B Current Condition Start: 12/18/18 08:14 Freq: Status: Active Protocol: Document 12/18/18 09:49 SAK (Rec: 12/18/18 10:00 SAK [id number]) Current Condition History of Current Condition Onset Date 12/08/18 Current Complaints pain, decreased ROM and strength of cervical spine History of Current Condition C2-5 spine surgery cleaned up and put in 4 spacers due to pain and crepitus in neck. Reports off pain med 2 days after surgery. Anticipating right shoulder surgery. Wearing rigid collar. Future Testing and Treatments Planned Goes back to surgeon Jan 07. Anticipating surgery for right shoulder in near future. Treatment Goals Patient/Caregiver Goals Regain functional use of his neck including ability to turn head for safe driving, move in all directions without pain Prior Functional Status Baseline Function- ADL's Independent Baseline Function- Mobility Independent Baseline Function- Recreation/Hobbies hiking independent Current Functional Impairments (Reported) Functional Limitations- ADL's painful Functional Limitations- Mobility/Gait slow, guarded Functional Limitations- Recreation/ limited Hobbies Personal Factors Other Personal Factors That May Effect history chronic pain Therapy/Recovery PT-OP-C Subjective Start: 12/18/18 08:14 Freq: Status: Active Protocol: Document 02/03/19 09:07 EA (Rec: 02/03/19 09:46 EA [id number]) OP-PT Subjective Patient Comments Patient Comments Pt reports right shoulder and arm tingling and pain to right mid back at scap angle. PT-OP-F Manual Assessment Start: 12/18/18 08:14 Freq: Status: Active Protocol: Document 12/18/18 09:49 SAK (Rec: 12/19/18 12:32 SAK [id number]) Manual Assessments Soft Tissue Assessment Soft Tissue Mobility Assessment Decreased mobility left cervical spine, upper trap musculature. Joint Mobility Assessment Joint Mobility Assessment deferred due to surgery PT-OP-H Neuro Start: 12/18/18 08:14 Freq: Status: Active Protocol: Document 12/18/18 09:49 SAK (Rec: 12/19/18 12:32 SAK [email or web address]) Sensation Evaluation Gross Sensation Sensation Description Numbness Tingling PT-OP-J Posture/Palpation/Skin Start: 12/18/18 08:14 Freq: Status: Active Protocol: Document 12/18/18 09:49 SAK (Rec: 12/19/18 13:07 SAK [id number]) Posture Evaluation Position Sitting Head/C-Spine Posture Extended Forward Head T-Spine Posture Increased Kyphosis Comments Posture Comments wearing rigid cervical collar. Palpation Assessment Location cervical spine Palpation Findings Soft Tissue Tightness Muscle Guarding Tenderness Palpation Details right cervical spine and upper traps Skin Assessment Incisional Assessment Incision Appearance/Comments healing well, no signs or symptoms of infection PT-OP-K Range of Motion Start: 12/18/18 08:14 Freq: Status: Active Protocol: Document 12/18/18 09:49 SAK (Rec: 12/19/18 13:07 SAK [id number]) Cervical Spine Range of Motion Cervical Spine Active Testing Position Sitting Flexion 35 Extension 10 Rotation Left 15 Rotation Right 15 Lateral Flexion Left 10 Lateral Flexion Right 10 ROM Limitations Soft Tissue Tightness PT-OP-M Strength Start: 12/18/18 08:14 Freq: Status: Active Protocol: Document 12/18/18 09:49 SAK (Rec: 12/19/18 13:07 SAK [id number]) Cervical Spine Strength Cervical Spine Manual Muscle Testing Reason Not Measured Orthopedic Precautions Shoulder Strength Shoulder Manual Muscle Testing coleen Reason Not Measured Orthopedic Precautions PT-OP-Q Treatments Start: 12/18/18 08:14 Freq: Status: Active Protocol: Document 02/03/19 09:07 EA (Rec: 02/03/19 09:46 EA [id number]) Therapeutic Exercises Supine Exercises shoulder flex Reps/Minutes 10x bicep curl Reps/Minutes 10x serratus punch Reps/Minutes 10x shld blade squeeze Reps/Minutes 5x sh shrugs Reps/Minutes 10x sh ER/IR Reps/Minutes 10x shoulder hor ab/ad Reps/Minutes 10x chest press Reps/Minutes 10x postural isometric Reps/Minutes 10x Standing Exercises rows, shoulder ext Reps/Minutes 10x wall posture Reps/Minutes 2 min Manual Therapy Treatment Soft Tissue Mobilization Interscap/Thoracic paraspinals Mobilization Type Myofascial Release Rolling Strumming Sustained Pressure Intensity/Depth Moderate Body Position Sitting manual pec stretch] Mobilization Type Sustained Pressure Intensity/Depth Moderate Body Position Hooklying upper traps, rhomboids, levator scap Mobilization Type Myofascial Release Rolling Intensity/Depth gentle Body Position Hooklying PT-OP-R Modalities Start: 12/18/18 08:14 Freq: Status: Active Protocol: Document 02/03/19 09:07 EA (Rec: 02/03/19 09:46 EA [id number]) Hot Pack/Cold Pack Treatment cervical spine Patient Position Hooklying Patient Tolerance Good Comments coleen upper traps and periscapular area. PT-OP-T Assessment and Plan Start: 12/18/18 08:14 Freq: Status: Active Protocol: Document 02/03/19 09:07 EA (Rec: 02/03/19 09:46 EA [id number]) Physical Therapy Assessment Assessment Summary Assessment In coordinated movement with all shoulder mobility accompanied with right scapula angle discomfort; in addition scap winging is noted with fwd shoulder motion. Consider shoulder stab exercise next session. Physical Therapy Plan Next Visit Focus/Plan Next Note Type Treatment Note
--- NOTE | 2019-02-09 16:05 | PT.OTN ---
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 Reports off pain med 2 days after surgery. Anticipating right shoulder surgery. Wearing rigid collar. Future Testing and Treatments Planned Goes back to surgeon Jan 07. Anticipating surgery for right shoulder in near future. Treatment Goals Patient/Caregiver Goals Regain functional use of his neck including ability to turn head for safe driving, move in all directions without pain Prior Functional Status Baseline Function- ADL's Independent Baseline Function- Mobility Independent Baseline Function- Recreation/Hobbies hiking independent Current Functional Impairments (Reported) Functional Limitations- ADL's painful Functional Limitations- Mobility/Gait slow, guarded Functional Limitations- Recreation/ limited Hobbies Personal Factors Other Personal Factors That May Effect history chronic pain Therapy/Recovery PT-OP-C Subjective Start: 12/18/18 08:14 Freq: Status: Active Protocol: Document 02/05/19 11:15 SAK (Rec: 02/09/19 16:05 SAK [id number]) OP-PT Subjective Patient Comments Patient Comments States he is trying to take a little bit longer walks. PT-OP-F Manual Assessment Start: 12/18/18 08:14 Freq: Status: Active Protocol: Document 12/18/18 09:49 SAK (Rec: 12/19/18 12:32 SAK [id number]) Manual Assessments Soft Tissue Assessment Soft Tissue Mobility Assessment Decreased mobility left cervical spine, upper trap musculature. Joint Mobility Assessment Joint Mobility Assessment deferred due to surgery PT-OP-H Neuro Start: 12/18/18 08:14 Freq: Status: Active Protocol: Document 12/18/18 09:49 [facility] (Rec: 12/19/18 12:32 [facility] [id number]) Sensation Evaluation Gross Sensation Sensation Description Numbness Tingling PT-OP-J Posture/Palpation/Skin Start: 12/18/18 08:14 Freq: Status: Active Protocol: Document 12/18/18 09:49 [facility] (Rec: 12/19/18 13:07 [facility] [id number]) Posture Evaluation Position Sitting Head/C-Spine Posture Extended Forward Head T-Spine Posture Increased Kyphosis Comments Posture Comments wearing rigid cervical collar. Palpation Assessment Location cervical spine Palpation Findings Soft Tissue Tightness Muscle Guarding Tenderness Palpation Details right cervical spine and upper traps Skin Assessment Incisional Assessment Incision Appearance/Comments healing well, no signs or symptoms of infection PT-OP-K Range of Motion Start: 12/18/18 08:14 Freq: Status: Active Protocol: Document 12/18/18 09:49 [facility] (Rec: 12/19/18 13:07 [facility] [id number]) Cervical Spine Range of Motion Cervical Spine Active Testing Position Sitting Flexion 35 Extension 10 Rotation Left 15 Rotation Right 15 Lateral Flexion Left 10 Lateral Flexion Right 10 ROM Limitations Soft Tissue Tightness PT-OP-M Strength Start: 12/18/18 08:14 Freq: Status: Active Protocol: Document 12/18/18 09:49 [facility] (Rec: 12/19/18 13:07 [facility] [id number]) Cervical Spine Strength Cervical Spine Manual Muscle Testing Reason Not Measured Orthopedic Precautions Shoulder Strength Shoulder Manual Muscle Testing coleen Reason Not Measured Orthopedic Precautions PT-OP-Q Treatments Start: 12/18/18 08:14 Freq: Status: Active Protocol: Document 02/05/19 11:15 [facility] (Rec: 02/09/19 16:05 [facility] [id number]) Cardio Equipment Recumbent Stepper (Sci-Fit) Duration (Minutes) 8 Resistance 2 Other No UE's Treadmill Duration (Minutes) 10 Speed 1.3 Gym Equipment Shuttle Balance chains green Details standing bal 2 min, shallow squats x 10 Comments emphasis on postural stabilization Therapeutic Exercises Supine Exercises shoulder flex Reps/Minutes 10x serratus punch Reps/Minutes 10x sh ER/IR Reps/Minutes 10x chest press Reps/Minutes 10x postural isometric Reps/Minutes 10x Sitting Exercises scapular clocks Reps/Minutes 5 min Comments verbal and manual cues Standing Exercises rows, shoulder ext Reps/Minutes 10x Manual Therapy Treatment Soft Tissue Mobilization Interscap/Thoracic paraspinals Mobilization Type Myofascial Release Rolling Strumming Sustained Pressure Intensity/Depth Moderate Body Position Sitting manual pec stretch] Mobilization Type Sustained Pressure Intensity/Depth Moderate Body Position Hooklying upper traps, rhomboids, levator scap Mobilization Type Myofascial Release Rolling Intensity/Depth gentle Body Position Hooklying PT-OP-R Modalities Start: 12/18/18 08:14 Freq: Status: Active Protocol: Document 02/05/19 11:15 [facility] (Rec: 02/09/19 16:05 [facility] [id number]) Hot Pack/Cold Pack Treatment cervical spine Location trial ice Patient Position Hooklying Patient Tolerance Good Comments coleen upper traps and periscapular area. PT-OP-T Assessment and Plan Start: 12/18/18 08:14 Freq: Status: Active Protocol: Document 02/05/19 11:15 [facility] (Rec: 02/09/19 16:05 [facility] [id number]) Physical Therapy Assessment Goals Three Lawn Mower Operator Goal (LTG) Improve soft tissue mobility in cervical spine to WNL LTG Duration 3 months Two Impairment decreased strength cervical spine Usp Goal (LTG) Improve cervical spine strength to WNL to improve patient's function LTG Duration 3 months One Impairment limited cervical ROM Lawn Mower Operator Goal (LTG) Cervical spine ROM WNL to allow patient to turn adequately for driving and ADL 's LTG Duration 3 months Assessment Summary Assessment Poor scapular stabilization, improves with manual and verbal cues and repetition Physical Therapy Plan Frequency and Duration Frequency of Treatment 2x/Week Duration of Treatment 3 months Plan of Care Start Date 12/18/18 Plan of Care End Date 03/17/19 Therapeutic Interventions Therapeutic Interventions Aquatic Therapy Home Exercise Program Manual Therapy Neuromuscular Re-education Patient/Caregiver Education Self-Care/Home Management Soft Tissue Mobilization Taping Therapeutic Activities Therapeutic Exercises Modalities Cold Pack/Ice Massage Electric Stimulation Hot Packs Next Visit Focus/Plan Next Note Type Treatment Note Next Visit Plan Further scapular stabilization ex as tolerated, postural correction ex, gentle progression of activity level.
--- NOTE | 2019-02-10 14:51 | PT.OTN ---
Current Diagnoses Radiculopathy, cervical region (02/10/19) Arthrodesis status (02/10/19) Physical Therapy Treatment Note PT-OP-A Visit Information Start: 12/18/18 08:14 Freq: Status: Active Protocol: Document 02/10/19 09:53 SAK (Rec: 02/10/19 10:31 SAK [id number]) Out-Patient Physical Therapy Visit Information Visit Information Visit Type Treatment Note Visit Start Time 09:45 Visit Stop Time 10:40 Total Visit Minutes 55 Visit Number 8 Number of TYPE CUTTER Visits 0 Precautions Precautions cervical collar at all times except bedtime PT-OP-B Current Condition Start: 12/18/18 08:14 Freq: Status: Active Protocol: Document 12/18/18 09:49 SAK (Rec: 12/18/18 10:00 SAK [id number]) Current Condition History of Current Condition Onset Date 12/08/18 Current Complaints pain, decreased ROM and strength of cervical spine History of Current Condition C2-5 spine surgery cleaned up and put in 4 spacers due to pain and crepitus in neck. Reports off pain med 2 days after surgery. Anticipating right shoulder surgery. Wearing rigid collar. Future Testing and Treatments Planned Goes back to surgeon Jan 07. Anticipating surgery for right shoulder in near future. Treatment Goals Patient/Caregiver Goals Regain functional use of his neck including ability to turn head for safe driving, move in all directions without pain Prior Functional Status Baseline Function- ADL's Independent Baseline Function- Mobility Independent Baseline Function- Recreation/Hobbies hiking independent Current Functional Impairments (Reported) Functional Limitations- ADL's painful Functional Limitations- Mobility/Gait slow, guarded Functional Limitations- Recreation/ limited Hobbies Personal Factors Other Personal Factors That May Effect history chronic pain Therapy/Recovery PT-OP-C Subjective Start: 12/18/18 08:14 Freq: Status: Active Protocol: Document 02/10/19 09:53 SAK (Rec: 02/10/19 10:31 SAK [id number]) OP-PT Subjective Patient Comments Patient Comments Finley kinesiotape was helpful, a lot less pain PT-OP-F Manual Assessment Start: 12/18/18 08:14 Freq: Status: Active Protocol: Document 12/18/18 09:49 SAK (Rec: 12/19/18 12:32 SAK [id number]) Manual Assessments Soft Tissue Assessment Soft Tissue Mobility Assessment Decreased mobility left cervical spine, upper trap musculature. Joint Mobility Assessment Joint Mobility Assessment deferred due to surgery PT-OP-H Neuro Start: 12/18/18 08:14 Freq: Status: Active Protocol: Document 12/18/18 09:49 [facility] (Rec: 12/19/18 12:32 [facility] [id number]) Sensation Evaluation Gross Sensation Sensation Description Numbness Tingling PT-OP-J Posture/Palpation/Skin Start: 12/18/18 08:14 Freq: Status: Active Protocol: Document 12/18/18 09:49 [facility] (Rec: 12/19/18 13:07 [facility] [id number]) Posture Evaluation Position Sitting Head/C-Spine Posture Extended Forward Head T-Spine Posture Increased Kyphosis Comments Posture Comments wearing rigid cervical collar. Palpation Assessment Location cervical spine Palpation Findings Soft Tissue Tightness Muscle Guarding Tenderness Palpation Details right cervical spine and upper traps Skin Assessment Incisional Assessment Incision Appearance/Comments healing well, no signs or symptoms of infection PT-OP-K Range of Motion Start: 12/18/18 08:14 Freq: Status: Active Protocol: Document 12/18/18 09:49 [facility] (Rec: 12/19/18 13:07 [facility] [id number]) Cervical Spine Range of Motion Cervical Spine Active Testing Position Sitting Flexion 35 Extension 10 Rotation Left 15 Rotation Right 15 Lateral Flexion Left 10 Lateral Flexion Right 10 ROM Limitations Soft Tissue Tightness PT-OP-M Strength Start: 12/18/18 08:14 Freq: Status: Active Protocol: Document 12/18/18 09:49 [facility] (Rec: 12/19/18 13:07 [facility] [id number]) Cervical Spine Strength Cervical Spine Manual Muscle Testing Reason Not Measured Orthopedic Precautions Shoulder Strength Shoulder Manual Muscle Testing coleen Reason Not Measured Orthopedic Precautions PT-OP-Q Treatments Start: 12/18/18 08:14 Freq: Status: Active Protocol: Document 02/10/19 09:53 [facility] (Rec: 02/10/19 10:31 [facility] [id number]) Cardio Equipment Treadmill Duration (Minutes) 10 Speed 1.8 Gym Equipment Shuttle Balance chains red Details standing bal Comments emphasis on postural alignment , core stab Therapeutic Exercises Supine Exercises shoulder hor ab Reps/Minutes 10x Comments end-range stretch shoulder flex Reps/Minutes 10x Comments end range stretch after 10 bicep curl Reps/Minutes 10x serratus punch Reps/Minutes 10x chest press Reps/Minutes 10x Sitting Exercises scapular clocks Reps/Minutes 5 min Comments verbal and manual cues Standing Exercises rows, shoulder ext Resistance L1 TB Reps/Minutes 10x Manual Therapy Treatment Taping 1 Body Location between scapula for postural correction, lower trap facil Type of Tape Kinesio Tape Comments 4 I strips PT-OP-R Modalities Start: 12/18/18 08:14 Freq: Status: Active Protocol: Document 02/10/19 09:53 [facility] (Rec: 02/10/19 10:31 [facility] [id number]) Hot Pack/Cold Pack Treatment cervical spine Location trial ice Patient Position Hooklying Patient Tolerance Good Comments coleen upper traps and periscapular area. PT-OP-T Assessment and Plan Start: 12/18/18 08:14 Freq: Status: Active Protocol: Document 02/10/19 09:53 [facility] (Rec: 02/10/19 14:51 [facility] [id number]) Physical Therapy Assessment Goals Three Group Home Goal (LTG) Improve soft tissue mobility in cervical spine to WNL LTG Duration 3 months Two Impairment decreased strength cervical spine Group Home Goal (LTG) Improve cervical spine strength to WNL to improve patient's function LTG Duration 3 months One Impairment limited cervical ROM Group Home Goal (LTG) Cervical spine ROM WNL to allow patient to turn adequately for driving and ADL 's LTG Duration 3 months Assessment Summary Assessment Patient pleased with use of kinesiotape and states he has been using the photos I took of him last session as motivation for postural correction. Decreased pain today with increase tolerance for activity. Physical Therapy Plan Frequency and Duration Frequency of Treatment 2x/Week Duration of Treatment 3 months Plan of Care Start Date 12/18/18 Plan of Care End Date 03/17/19 Therapeutic Interventions Therapeutic Interventions Aquatic Therapy Home Exercise Program Manual Therapy Neuromuscular Re-education Patient/Caregiver Education Self-Care/Home Management Soft Tissue Mobilization Taping Therapeutic Activities Therapeutic Exercises Modalities Cold Pack/Ice Massage Electric Stimulation Hot Packs Next Visit Focus/Plan Next Note Type Treatment Note Next Visit Plan Continue PT forscapular stabilization ex as tolerated, postural correction ex, gentle progression of activity level as tolerated.
--- NOTE | 2019-02-13 15:18 | PT.OTN ---
Current Diagnoses Radiculopathy, cervical region (02/12/19) Arthrodesis status (02/12/19) Physical Therapy Treatment Note PT-OP-A Visit Information Start: 12/18/18 08:14 Freq: Status: Active Protocol: Document 02/12/19 09:45 SAK (Rec: 02/13/19 15:17 SAK [id number]) Out-Patient Physical Therapy Visit Information Visit Information Visit Type Treatment Note Visit Start Time 09:45 Visit Stop Time 10:40 Total Visit Minutes 55 Visit Number 9 Number of CARD GRINDER Visits 0 Evaluation Information Evaluation Date 12/18/18 Precautions Precautions cervical collar at all times except bedtime PT-OP-B Current Condition Start: 12/18/18 08:14 Freq: Status: Active Protocol: Document 12/18/18 09:49 SAK (Rec: 12/18/18 10:00 SAK [id number]) Current Condition History of Current Condition Onset Date 12/08/18 Current Complaints pain, decreased ROM and strength of cervical spine History of Current Condition C2-5 spine surgery cleaned up and put in 4 spacers due to pain and crepitus in neck. Reports off pain med 2 days after surgery. Anticipating right shoulder surgery. Wearing rigid collar. Future Testing and Treatments Planned Goes back to surgeon Jan 07. Anticipating surgery for right shoulder in near future. Treatment Goals Patient/Caregiver Goals Regain functional use of his neck including ability to turn head for safe driving, move in all directions without pain Prior Functional Status Baseline Function- ADL's Independent Baseline Function- Mobility Independent Baseline Function- Recreation/Hobbies hiking independent Current Functional Impairments (Reported) Functional Limitations- ADL's painful Functional Limitations- Mobility/Gait slow, guarded Functional Limitations- Recreation/ limited Hobbies Personal Factors Other Personal Factors That May Effect history chronic pain Therapy/Recovery PT-OP-C Subjective Start: 12/18/18 08:14 Freq: Status: Active Protocol: Document 02/12/19 09:45 SAK (Rec: 02/13/19 15:17 SAK [id number]) OP-PT Subjective Patient Comments Patient Comments No tingling into UE's, less pain with kinesiotape. States he is paying a lot more attention to his posture after PT took photos against posture grid and sent copies home for reference. PT-OP-F Manual Assessment Start: 12/18/18 08:14 Freq: Status: Active Protocol: Document 12/18/18 09:49 [facility] (Rec: 12/19/18 12:32 [facility] [id number]) Manual Assessments Soft Tissue Assessment Soft Tissue Mobility Assessment Decreased mobility left cervical spine, upper trap musculature. Joint Mobility Assessment Joint Mobility Assessment deferred due to surgery PT-OP-H Neuro Start: 12/18/18 08:14 Freq: Status: Active Protocol: Document 12/18/18 09:49 SAK (Rec: 12/19/18 12:32 [facility] [id number]) Sensation Evaluation Gross Sensation Sensation Description Numbness Tingling PT-OP-J Posture/Palpation/Skin Start: 12/18/18 08:14 Freq: Status: Active Protocol: Document 12/18/18 09:49 [facility] (Rec: 12/19/18 13:07 [facility] [id number]) Posture Evaluation Position Sitting Head/C-Spine Posture Extended Forward Head T-Spine Posture Increased Kyphosis Comments Posture Comments wearing rigid cervical collar. Palpation Assessment Location cervical spine Palpation Findings Soft Tissue Tightness Muscle Guarding Tenderness Palpation Details right cervical spine and upper traps Skin Assessment Incisional Assessment Incision Appearance/Comments healing well, no signs or symptoms of infection PT-OP-K Range of Motion Start: 12/18/18 08:14 Freq: Status: Active Protocol: Document 12/18/18 09:49 [facility] (Rec: 12/19/18 13:07 [facility] [id number]) Cervical Spine Range of Motion Cervical Spine Active Testing Position Sitting Flexion 35 Extension 10 Rotation Left 15 Rotation Right 15 Lateral Flexion Left 10 Lateral Flexion Right 10 ROM Limitations Soft Tissue Tightness PT-OP-M Strength Start: 12/18/18 08:14 Freq: Status: Active Protocol: Document 12/18/18 09:49 [facility] (Rec: 12/19/18 13:07 [facility] [id number]) Cervical Spine Strength Cervical Spine Manual Muscle Testing Reason Not Measured Orthopedic Precautions Shoulder Strength Shoulder Manual Muscle Testing coleen Reason Not Measured Orthopedic Precautions PT-OP-Q Treatments Start: 12/18/18 08:14 Freq: Status: Active Protocol: Document 02/12/19 09:45 [facility]AK (Rec: 02/13/19 15:17 SAK [id number]) Cardio Equipment Treadmill Duration (Minutes) 10 Speed 2.0 Gym Equipment Shuttle Balance chains red Details standing bal Comments emphasis on postural alignment , core stab Therapeutic Exercises Supine Exercises shoulder hor ab Reps/Minutes 10x Comments end-range stretch shoulder flex Reps/Minutes 10x Comments end range stretch after 10 serratus punch Resistance 1# weights Reps/Minutes 10x chest press Resistance 2# Reps/Minutes 10x Sitting Exercises wrist flex,ext, forearm pron/sup Equipment Used 1# weights Reps/Minutes 10x overhead press Resistance 1# weights Reps/Minutes 10x scapular clocks Reps/Minutes 5 min Comments verbal and manual cues Standing Exercises shld ext Equipment Used wand Reps/Minutes 10x bicep curl Equipment Used 1# Reps/Minutes 10x2 rows, shoulder ext Resistance L1 TB Reps/Minutes 10x Manual Therapy Treatment Soft Tissue Mobilization Interscap/Thoracic paraspinals Mobilization Type Myofascial Release Rolling Strumming Sustained Pressure Intensity/Depth Moderate Body Position Sitting manual pec stretch] Mobilization Type Sustained Pressure Intensity/Depth Moderate Body Position Hooklying upper traps, rhomboids, levator scap Mobilization Type Myofascial Release Rolling Intensity/Depth gentle Body Position Hooklying Taping 1 Body Location between scapula for postural correction, lower trap facil Type of Tape Kinesio Tape Comments 4 I strips PT-OP-R Modalities Start: 12/18/18 08:14 Freq: Status: Active Protocol: Document 02/12/19 09:45 [facility] (Rec: 02/13/19 15:17 [facility] [id number]) Hot Pack/Cold Pack Treatment cervical spine Location trial ice Patient Position Hooklying Patient Tolerance Good Comments coleen upper traps and periscapular area. PT-OP-T Assessment and Plan Start: 12/18/18 08:14 Freq: Status: Active Protocol: Document 02/12/19 09:45 [facility] (Rec: 02/13/19 15:17 [facility] [id number]) Physical Therapy Assessment Goals Three Assisted Goal (LTG) Improve soft tissue mobility in cervical spine to WNL LTG Duration 3 months Two Impairment decreased strength cervical spine Assisted Goal (LTG) Improve cervical spine strength to WNL to improve patient's function LTG Duration 3 months One Impairment limited cervical ROM Nude Model Goal (LTG) Cervical spine ROM WNL to allow patient to turn adequately for driving and ADL 's LTG Duration 3 months Assessment Summary Assessment Good progress, decreased pain, demetria increased ther ex. Kinesiotape facil for postural correction helpful. Physical Therapy Plan Frequency and Duration Frequency of Treatment 2x/Week Duration of Treatment 3 months Plan of Care Start Date 12/18/18 Plan of Care End Date 03/17/19 Therapeutic Interventions Therapeutic Interventions Aquatic Therapy Home Exercise Program Manual Therapy Neuromuscular Re-education Patient/Caregiver Education Self-Care/Home Management Soft Tissue Mobilization Taping Therapeutic Activities Therapeutic Exercises Modalities Cold Pack/Ice Massage Electric Stimulation Hot Packs Next Visit Focus/Plan Next Note Type Treatment Note Next Visit Plan Continue PT forscapular stabilization ex as tolerated, postural correction ex, gentle progression of activity level as tolerated.
--- NOTE | 2019-02-17 16:28 | PT.OTN ---
Current Diagnoses Radiculopathy, cervical region (02/17/19) Arthrodesis status (02/17/19) Physical Therapy Treatment Note PT-OP-A Visit Information Start: 12/18/18 08:14 Freq: Status: Active Protocol: Document 02/17/19 11:15 SAK (Rec: 02/17/19 12:02 SAK [id number]) Out-Patient Physical Therapy Visit Information Visit Information Visit Type Treatment Note Visit Start Time 11:15 Visit Stop Time 12:10 Total Visit Minutes 55 Visit Number 10 Number of MEDICAL TRANSPORT SPECIALIST Visits 0 Evaluation Information Evaluation Date 12/18/18 Precautions Precautions cervical collar at all times except bedtime PT-OP-B Current Condition Start: 12/18/18 08:14 Freq: Status: Active Protocol: Document 12/18/18 09:49 SAK (Rec: 12/18/18 10:00 SAK [id number]) Current Condition History of Current Condition Onset Date 12/08/18 Current Complaints pain, decreased ROM and strength of cervical spine History of Current Condition C2-5 spine surgery cleaned up and put in 4 spacers due to pain and crepitus in neck. Reports off pain med 2 days after surgery. Anticipating right shoulder surgery. Wearing rigid collar. Future Testing and Treatments Planned Goes back to surgeon Jan 07. Anticipating surgery for right shoulder in near future. Treatment Goals Patient/Caregiver Goals Regain functional use of his neck including ability to turn head for safe driving, move in all directions without pain Prior Functional Status Baseline Function- ADL's Independent Baseline Function- Mobility Independent Baseline Function- Recreation/Hobbies hiking independent Current Functional Impairments (Reported) Functional Limitations- ADL's painful Functional Limitations- Mobility/Gait slow, guarded Functional Limitations- Recreation/ limited Hobbies Personal Factors Other Personal Factors That May Effect history chronic pain Therapy/Recovery PT-OP-C Subjective Start: 12/18/18 08:14 Freq: Status: Active Protocol: Document 02/12/19 09:45 SAK (Rec: 02/13/19 15:17 SAK [id number]) OP-PT Subjective Patient Comments Patient Comments No tingling into UE's, less pain with kinesiotape. States he is paying a lot more attention to his posture after PT took photos against posture grid and sent copies home for reference. PT-OP-F Manual Assessment Start: 12/18/18 08:14 Freq: Status: Active Protocol: Document 12/18/18 09:49 [facility] (Rec: 12/19/18 12:32 [facility] [id number]) Manual Assessments Soft Tissue Assessment Soft Tissue Mobility Assessment Decreased mobility left cervical spine, upper trap musculature. Joint Mobility Assessment Joint Mobility Assessment deferred due to surgery PT-OP-H Neuro Start: 12/18/18 08:14 Freq: Status: Active Protocol: Document 12/18/18 09:49 [facility] (Rec: 12/19/18 12:32 [facility] [id number]) Sensation Evaluation Gross Sensation Sensation Description Numbness Tingling PT-OP-J Posture/Palpation/Skin Start: 12/18/18 08:14 Freq: Status: Active Protocol: Document 12/18/18 09:49 [facility] (Rec: 12/19/18 13:07 [facility] [id number]) Posture Evaluation Position Sitting Head/C-Spine Posture Extended Forward Head T-Spine Posture Increased Kyphosis Comments Posture Comments wearing rigid cervical collar. Palpation Assessment Location cervical spine Palpation Findings Soft Tissue Tightness Muscle Guarding Tenderness Palpation Details right cervical spine and upper traps Skin Assessment Incisional Assessment Incision Appearance/Comments healing well, no signs or symptoms of infection PT-OP-K Range of Motion Start: 12/18/18 08:14 Freq: Status: Active Protocol: Document 12/18/18 09:49 [facility] (Rec: 12/19/18 13:07 [facility] [id number]) Cervical Spine Range of Motion Cervical Spine Active Testing Position Sitting Flexion 35 Extension 10 Rotation Left 15 Rotation Right 15 Lateral Flexion Left 10 Lateral Flexion Right 10 ROM Limitations Soft Tissue Tightness PT-OP-M Strength Start: 12/18/18 08:14 Freq: Status: Active Protocol: Document 12/18/18 09:49 [facility] (Rec: 12/19/18 13:07 [facility] [id number]) Cervical Spine Strength Cervical Spine Manual Muscle Testing Reason Not Measured Orthopedic Precautions Shoulder Strength Shoulder Manual Muscle Testing coleen Reason Not Measured Orthopedic Precautions PT-OP-Q Treatments Start: 12/18/18 08:14 Freq: Status: Active Protocol: Document 02/17/19 11:15 [facility] (Rec: 02/17/19 12:02 [facility] [id number]) Cardio Equipment Treadmill Duration (Minutes) 10 Speed 2.0 Gym Equipment Shuttle Balance chains red Details standing bal Comments emphasis on postural alignment , core stab Therapeutic Exercises Supine Exercises shoulder hor ab Reps/Minutes 10x Comments end-range stretch shoulder flex Reps/Minutes 10x Comments end range stretch after 10 serratus punch Resistance 1# weights Reps/Minutes 2x10 shoulder hor ab/ad Reps/Minutes 10x chest press Resistance 2# Reps/Minutes 10x Sitting Exercises scapular clocks Reps/Minutes 5 min Comments verbal and manual cues Standing Exercises shoulder add Resistance L1 TB Reps/Minutes 10x shoulder ER Resistance L1 TB Reps/Minutes 10x shld ext Equipment Used wand Reps/Minutes 10x bicep curl Equipment Used 1# Reps/Minutes 10x2 rows, shoulder ext Resistance L1 TB Reps/Minutes 10x wall posture Reps/Minutes 2 min Manual Therapy Treatment Soft Tissue Mobilization Interscap/Thoracic paraspinals Mobilization Type Myofascial Release Rolling Strumming Sustained Pressure Intensity/Depth Moderate Body Position Sitting manual pec stretch] Mobilization Type Sustained Pressure Intensity/Depth Moderate Body Position Hooklying upper traps, rhomboids, levator scap Mobilization Type Myofascial Release Rolling Intensity/Depth gentle Body Position Hooklying Taping 1 Body Location between scapula for postural correction, lower trap facil Type of Tape Kinesio Tape Comments 4 I strips PT-OP-R Modalities Start: 12/18/18 08:14 Freq: Status: Active Protocol: Document 02/17/19 11:15 [facility] (Rec: 02/17/19 12:02 [facility] [id number]) Hot Pack/Cold Pack Treatment cervical spine Location MH Patient Position Hooklying Patient Tolerance Good Comments coleen upper traps and periscapular area. PT-OP-T Assessment and Plan Start: 12/18/18 08:14 Freq: Status: Active Protocol: Document 02/17/19 11:15 [facility] (Rec: 02/17/19 12:02 [facility] [id number]) Physical Therapy Assessment Goals Three Shelter Goal (LTG) Improve soft tissue mobility in cervical spine to WNL LTG Duration 3 months Two Impairment decreased strength cervical spine Landscaping Specialist Goal (LTG) Improve cervical spine strength to WNL to improve patient's function LTG Duration 3 months One Impairment limited cervical ROM Landscaping Specialist Goal (LTG) Cervical spine ROM WNL to allow patient to turn adequately for driving and ADL 's LTG Duration 3 months Assessment Summary Assessment Treatment focused highly on scapular control and stabilization, postural correction with ther ex for the same. Manual cues at scapula to facilitate more normal movement. Physical Therapy Plan Frequency and Duration Frequency of Treatment 2x/Week Duration of Treatment 3 months Plan of Care Start Date 12/18/18 Plan of Care End Date 03/17/19 Therapeutic Interventions Therapeutic Interventions Aquatic Therapy Home Exercise Program Manual Therapy Neuromuscular Re-education Patient/Caregiver Education Self-Care/Home Management Soft Tissue Mobilization Taping Therapeutic Activities Therapeutic Exercises Modalities Cold Pack/Ice Massage Electric Stimulation Hot Packs Next Visit Focus/Plan Next Note Type Treatment Note Next Visit Plan Gentle progression of ther ex as tolerated. Add gentle cervical damian
--- NOTE | 2019-02-19 13:15 | PT.OTN ---
Current Diagnoses Radiculopathy, cervical region (02/19/19) Arthrodesis status (02/19/19) Physical Therapy Treatment Note PT-OP-A Visit Information Start: 12/18/18 08:14 Freq: Status: Active Protocol: Document 02/19/19 11:14 SAK (Rec: 02/19/19 11:48 SAK [id number]) Out-Patient Physical Therapy Visit Information Visit Information Visit Type Progress Note Visit Start Time 11:15 Visit Stop Time 12:10 Total Visit Minutes 55 Visit Number 11 Number of LAN ADMINISTRATOR Visits 0 Evaluation Information Evaluation Date 12/18/18 Precautions Precautions cervical collar at all times except bedtime PT-OP-B Current Condition Start: 12/18/18 08:14 Freq: Status: Active Protocol: Document 12/18/18 09:49 SAK (Rec: 12/18/18 10:00 SAK [id number]) Current Condition History of Current Condition Onset Date 12/08/18 Current Complaints pain, decreased ROM and strength of cervical spine History of Current Condition C2-5 spine surgery cleaned up and put in 4 spacers due to pain and crepitus in neck. Reports off pain med 2 days after surgery. Anticipating right shoulder surgery. Wearing rigid collar. Future Testing and Treatments Planned Goes back to surgeon Jan 07. Anticipating surgery for right shoulder in near future. Treatment Goals Patient/Caregiver Goals Regain functional use of his neck including ability to turn head for safe driving, move in all directions without pain Prior Functional Status Baseline Function- ADL's Independent Baseline Function- Mobility Independent Baseline Function- Recreation/Hobbies hiking independent Current Functional Impairments (Reported) Functional Limitations- ADL's painful Functional Limitations- Mobility/Gait slow, guarded Functional Limitations- Recreation/ limited Hobbies Personal Factors Other Personal Factors That May Effect history chronic pain Therapy/Recovery PT-OP-C Subjective Start: 12/18/18 08:14 Freq: Status: Active Protocol: Document 02/19/19 11:14 SAK (Rec: 02/19/19 11:48 SAK [id number]) OP-PT Subjective Patient Comments Patient Comments No new c/o. Sees his doctor just prior to PT. Reports some continued swallowing difficulties. PT-OP-F Manual Assessment Start: 12/18/18 08:14 Freq: Status: Active Protocol: Document 12/18/18 09:49 SAK (Rec: 12/19/18 12:32 [facility] [id number]) Manual Assessments Soft Tissue Assessment Soft Tissue Mobility Assessment Decreased mobility left cervical spine, upper trap musculature. Joint Mobility Assessment Joint Mobility Assessment deferred due to surgery PT-OP-H Neuro Start: 12/18/18 08:14 Freq: Status: Active Protocol: Document 12/18/18 09:49 SAK (Rec: 12/19/18 12:32 [facility] [email or web address]) Sensation Evaluation Gross Sensation Sensation Description Numbness Tingling PT-OP-J Posture/Palpation/Skin Start: 12/18/18 08:14 Freq: Status: Active Protocol: Document 12/18/18 09:49 SAK (Rec: 12/19/18 13:07 [facility] [id number]) Posture Evaluation Position Sitting Head/C-Spine Posture Extended Forward Head T-Spine Posture Increased Kyphosis Comments Posture Comments wearing rigid cervical collar. Palpation Assessment Location cervical spine Palpation Findings Soft Tissue Tightness Muscle Guarding Tenderness Palpation Details right cervical spine and upper traps Skin Assessment Incisional Assessment Incision Appearance/Comments healing well, no signs or symptoms of infection PT-OP-K Range of Motion Start: 12/18/18 08:14 Freq: Status: Active Protocol: Document 02/19/19 11:14 SAK (Rec: 02/19/19 13:15 [facility] [id number]) Cervical Spine Range of Motion Cervical Spine Active Testing Position Sitting Flexion 45 Extension 10 Rotation Left 25 Rotation Right 30 Lateral Flexion Left 10 Lateral Flexion Right 10 ROM Limitations Soft Tissue Tightness Pain PT-OP-M Strength Start: 12/18/18 08:14 Freq: Status: Active Protocol: Document 02/19/19 11:14 SAK (Rec: 02/19/19 13:15 [facility] [id number]) Scapula Strength Scapula Manual Muscle Testing Right Elevation (C4) 4 Good Adduction 4- Good- Abduction 3+ Fair+ Depression 3+ Fair+ Left Elevation (C4) 4 Good Adduction 4 Good Abduction 4 Good Depression 4 Good Elbow/Forearm Strength Elbow and Forearm Manual Muscle Testing Right Flexion (C6) 4- Good- Extension (C7) 4- Good- Left Flexion (C6) 4 Good Extension (C7) 4 Good PT-OP-Q Treatments Start: 12/18/18 08:14 Freq: Status: Active Protocol: Document 02/19/19 11:14 SAK (Rec: 02/19/19 11:48 [facility] [id number]) Cardio Equipment Treadmill Duration (Minutes) 10 Speed 2.0 Gym Equipment Shuttle Balance chains red Details standing bal Comments emphasis on postural alignment , core stab Therapeutic Exercises Supine Exercises isometric cervical Supine Exercise Name ext, SB Resistance gentle manual Comments cues for gentle, pain-free shoulder hor ab Reps/Minutes 10x Comments end-range stretch shoulder flex Reps/Minutes 10x Comments end range stretch after 10 serratus punch Resistance 1# weights Reps/Minutes 2x10 Sitting Exercises scapular clocks Reps/Minutes 5 min Comments verbal and manual cues Standing Exercises Sh ER Resistance L1 TB Reps/Minutes 10x shoulder add Resistance L2 TB Reps/Minutes 10x shoulder ER Resistance L2 TB Reps/Minutes 10x shld ext Equipment Used wand Reps/Minutes 10x bicep curl Equipment Used 1# Reps/Minutes 10x2 rows, shoulder ext Resistance L2 TB Reps/Minutes 10x Manual Therapy Treatment Soft Tissue Mobilization SCM Mobilization Type Myofascial Release Rolling Strumming manual pec stretch] Mobilization Type Sustained Pressure Intensity/Depth Moderate Body Position Hooklying upper traps, rhomboids, levator scap Mobilization Type Myofascial Release Rolling Intensity/Depth gentle Body Position Hooklying Taping 1 Body Location between scapula for postural correction, lower trap facil Type of Tape Kinesio Tape Comments 4 I strips PT-OP-R Modalities Start: 12/18/18 08:14 Freq: Status: Active Protocol: Document 02/19/19 11:14 [facility] (Rec: 02/19/19 13:15 [facility] [id number]) Hot Pack/Cold Pack Treatment cervical spine Location ice pack Patient Position Hooklying Patient Tolerance Good Comments coleen upper traps and periscapular area. PT-OP-T Assessment and Plan Start: 12/18/18 08:14 Freq: Status: Active Protocol: Document 02/19/19 11:14 [facility] (Rec: 02/19/19 11:48 [facility] [id number]) Physical Therapy Assessment Goals Four Impairment poor scapular strength and stabilization right, dec coleen UE strength Short Term Goal (STG) Instruct in HEP for purposes of strengthening and scapular stabilization 02/19/19: ongoing stabilization STG Duration 4 wks Fpc Goal (LTG) Improve UE strength to at least 4+/5 to allow full functional use of UE's LTG Duration 3 months Three Weld Engineer Goal (LTG) Improve soft tissue mobility in cervical spine to WNL 02/19/19: good goal progress LTG Duration 3 months Two Impairment decreased strength cervical spine Fpc Goal (LTG) Improve cervical spine strength to WNL to improve patient's function 02/19/19: goal progress LTG Duration 3 months One Impairment limited cervical ROM Weld Engineer Goal (LTG) Cervical spine ROM WNL to allow patient to turn adequately for driving and ADL 's 02/19/19: awaiting removal of cervical collar per physician order LTG Duration 3 months Assessment Summary Assessment Feel patient would benefit from speech therapy evaluation due to ongoing swallowing difficulty. Awaiting removal of cervical collar before beginning cervical ROM ex. Patient postural alignment improving though easily slips into poor postural habits; kinesiotape helpful for this as well as assisting in right shoulder stabilization; since initiating use of kinesiotape patient reports no more tingling down right UE. He has been highly motivated and compliant with HEP. Would benefit from further PT to help patient to continue rehab s/p cervical surgery and regain full functional use of his neck and shoulders. Physical Therapy Plan Frequency and Duration Frequency of Treatment 2x/Week Duration of Treatment 3 months Plan of Care Start Date 12/18/18 Plan of Care End Date 03/17/19 Therapeutic Interventions Therapeutic Interventions Aquatic Therapy Home Exercise Program Manual Therapy Neuromuscular Re-education Patient/Caregiver Education Self-Care/Home Management Soft Tissue Mobilization Taping Therapeutic Activities Therapeutic Exercises Modalities Cold Pack/Ice Massage Electric Stimulation Hot Packs Next Visit Focus/Plan Next Note Type Treatment Note Next Visit Plan Gentle progression of ther ex as tolerated. Add gentle cervical ROM if approved by physician.
--- NOTE | 2019-02-24 12:12 | PT.OTN ---
Current Diagnoses Radiculopathy, cervical region (02/24/19) Arthrodesis status (02/24/19) Physical Therapy Treatment Note PT-OP-A Visit Information Start: 12/18/18 08:14 Freq: Status: Active Protocol: Document 02/24/19 11:26 SAK (Rec: 02/24/19 12:12 SAK [id number]) Out-Patient Physical Therapy Visit Information Visit Information Visit Type Progress Note Visit Start Time 11:15 Visit Stop Time 12:10 Total Visit Minutes 55 Visit Number 11 Number of [employer] REP Visits 0 Evaluation Information Evaluation Date 12/18/18 Precautions Precautions no further cervical collar PT-OP-B Current Condition Start: 12/18/18 08:14 Freq: Status: Active Protocol: Document 12/18/18 09:49 SAK (Rec: 12/18/18 10:00 SAK [id number]) Current Condition History of Current Condition Onset Date 12/08/18 Current Complaints pain, decreased ROM and strength of cervical spine History of Current Condition C2-5 spine surgery cleaned up and put in 4 spacers due to pain and crepitus in neck. Reports off pain med 2 days after surgery. Anticipating right shoulder surgery. Wearing rigid collar. Future Testing and Treatments Planned Goes back to surgeon Jan 07. Anticipating surgery for right shoulder in near future. Treatment Goals Patient/Caregiver Goals Regain functional use of his neck including ability to turn head for safe driving, move in all directions without pain Prior Functional Status Baseline Function- ADL's Independent Baseline Function- Mobility Independent Baseline Function- Recreation/Hobbies hiking independent Current Functional Impairments (Reported) Functional Limitations- ADL's painful Functional Limitations- Mobility/Gait slow, guarded Functional Limitations- Recreation/ limited Hobbies Personal Factors Other Personal Factors That May Effect history chronic pain Therapy/Recovery PT-OP-C Subjective Start: 12/18/18 08:14 Freq: Status: Active Protocol: Document 02/24/19 11:26 SAK (Rec: 02/24/19 12:12 SAK [id number]) OP-PT Subjective Patient Comments Patient Comments REports doctor said to take the gloves off, no restrictions PT-OP-F Manual Assessment Start: 12/18/18 08:14 Freq: Status: Active Protocol: Document 12/18/18 09:49 SAK (Rec: 12/19/18 12:32 [facility] [id number]) Manual Assessments Soft Tissue Assessment Soft Tissue Mobility Assessment Decreased mobility left cervical spine, upper trap musculature. Joint Mobility Assessment Joint Mobility Assessment deferred due to surgery PT-OP-H Neuro Start: 12/18/18 08:14 Freq: Status: Active Protocol: Document 12/18/18 09:49 SAK (Rec: 12/19/18 12:32 SAK [id number]) Sensation Evaluation Gross Sensation Sensation Description Numbness Tingling PT-OP-J Posture/Palpation/Skin Start: 12/18/18 08:14 Freq: Status: Active Protocol: Document 12/18/18 09:49 SAK (Rec: 12/19/18 13:07 [facility] [id number]) Posture Evaluation Position Sitting Head/C-Spine Posture Extended Forward Head T-Spine Posture Increased Kyphosis Comments Posture Comments wearing rigid cervical collar. Palpation Assessment Location cervical spine Palpation Findings Soft Tissue Tightness Muscle Guarding Tenderness Palpation Details right cervical spine and upper traps Skin Assessment Incisional Assessment Incision Appearance/Comments healing well, no signs or symptoms of infection PT-OP-K Range of Motion Start: 12/18/18 08:14 Freq: Status: Active Protocol: Document 02/19/19 11:14 [facility] (Rec: 02/19/19 13:15 [facility] [id number]) Cervical Spine Range of Motion Cervical Spine Active Testing Position Sitting Flexion 45 Extension 10 Rotation Left 25 Rotation Right 30 Lateral Flexion Left 10 Lateral Flexion Right 10 ROM Limitations Soft Tissue Tightness Pain PT-OP-M Strength Start: 12/18/18 08:14 Freq: Status: Active Protocol: Document 02/19/19 11:14 [facility] (Rec: 02/19/19 13:15 [facility] [id number]) Scapula Strength Scapula Manual Muscle Testing Right Elevation (C4) 4 Good Adduction 4- Good- Abduction 3+ Fair+ Depression 3+ Fair+ Left Elevation (C4) 4 Good Adduction 4 Good Abduction 4 Good Depression 4 Good Elbow/Forearm Strength Elbow and Forearm Manual Muscle Testing Right Flexion (C6) 4- Good- Extension (C7) 4- Good- Left Flexion (C6) 4 Good Extension (C7) 4 Good PT-OP-Q Treatments Start: 12/18/18 08:14 Freq: Status: Active Protocol: Document 02/24/19 11:26 SAK (Rec: 02/24/19 12:12 [facility] [id number]) Cardio Equipment Recumbent Stepper (Sci-Fit) Duration (Minutes) 10 Resistance 2 Other UE's and LE's Gym Equipment Cable Column (Body Solid) Lat pull Resistance 20# Reps/Time 10x Therapeutic Exercises Supine Exercises shoulder hor ab Reps/Minutes 10x Comments end-range stretch serratus punch Resistance 2# weights Reps/Minutes 2x10 Sidelying Exercises reach and roll Reps/Minutes 10x Comments verbal and manual cues Standing Exercises hi rows Equipment Used L2 TB Reps/Minutes 10x PNF D2 Resistance L1 TB Reps/Minutes 10x Comments encouraging gentle cervical ROM follow hand tricep ext Equipment Used L2 TB Reps/Minutes 10x Sh ER Resistance L2 TB Reps/Minutes 10x shoulder add Resistance L2 TB Reps/Minutes 10x shld ext Equipment Used wand Reps/Minutes 10x bicep curl Equipment Used L2 TB Reps/Minutes 10x rows, shoulder ext Resistance L2 TB Reps/Minutes 10x Manual Therapy Treatment Taping 1 Body Location between scapula for postural correction, lower trap facil Type of Tape Kinesio Tape Comments 4 I strips PT-OP-R Modalities Start: 12/18/18 08:14 Freq: Status: Active Protocol: Document 02/24/19 11:26 [facility] (Rec: 02/24/19 12:12 [facility] [id number]) Hot Pack/Cold Pack Treatment cervical spine Location ice pack Patient Position Hooklying Patient Tolerance Good Comments coleen upper traps and periscapular area. PT-OP-T Assessment and Plan Start: 12/18/18 08:14 Freq: Status: Active Protocol: Document 02/24/19 11:26 [facility] (Rec: 02/24/19 12:12 [facility] [id number]) Physical Therapy Assessment Goals Four Impairment poor scapular strength and stabilization right, dec coleen UE strength Short Term Goal (STG) Instruct in HEP for purposes of strengthening and scapular stabilization 02/19/19: ongoing stabilization STG Duration 4 wks [facility] Goal (LTG) Improve UE strength to at least 4+/5 to allow full functional use of UE's LTG Duration 3 months Three [facility] Goal (LTG) Improve soft tissue mobility in cervical spine to WNL 02/19/19: good goal progress LTG Duration 3 months Two Impairment decreased strength cervical spine [facility] Goal (LTG) Improve cervical spine strength to WNL to improve patient's function 02/19/19: goal progress LTG Duration 3 months One Impairment limited cervical ROM [facility] Goal (LTG) Cervical spine ROM WNL to allow patient to turn adequately for driving and ADL 's 02/19/19: awaiting removal of cervical collar per physician order LTG Duration 3 months Assessment Summary Assessment Good exercise tolerance, denied increase in pain with progression of ther ex. Improving scapular control Physical Therapy Plan Frequency and Duration Frequency of Treatment 2x/Week Duration of Treatment 3 months Plan of Care Start Date 12/18/18 Plan of Care End Date 03/17/19 Therapeutic Interventions Therapeutic Interventions Aquatic Therapy Home Exercise Program Manual Therapy Neuromuscular Re-education Patient/Caregiver Education Self-Care/Home Management Soft Tissue Mobilization Taping Therapeutic Activities Therapeutic Exercises Modalities Cold Pack/Ice Massage Electric Stimulation Hot Packs Next Visit Focus/Plan Next Note Type Treatment Note Next Visit Plan Evaluate response to last session and progress as tolerated per physician order.
--- NOTE | 2019-02-24 12:16 | PT.OTRE ---
Current Diagnoses Radiculopathy, cervical region (02/24/19) Arthrodesis status (02/24/19) Past Medical History (Last Reviewed 12/26/18 @ 16:17 by Ale Hu DO) Anxiety (Chronic Unknown) Aortic stenosis (Chronic) BPH (benign prostatic hyperplasia) (Chronic Unknown) Chronic pain syndrome (Chronic Unknown) Chronic renal insufficiency (Chronic Unknown) Depression (Chronic Unknown) Diabetes (Chronic Unknown) GERD (gastroesophageal reflux disease) (Chronic Unknown) Hyperlipemia (Chronic Unknown) Hypertension (Chronic Unknown) Low back pain (Chronic Unknown) Peripheral neuropathy (Chronic Unknown) Rheumatoid arthritis (Chronic Unknown) Coronary artery disease (Suspected Unknown) History of ETOH abuse (Resolved Unknown) Surgical History (Last Updated 12/26/18 @ 16:17 by Ale Hu DO) S/P cervical spinal fusion (Acute) History of back surgery (Resolved ~2012) Status post hernia repair Status post knee surgery Provider Visit Care Team Role Provider Type Hector Marquez orthopedic surgeon Non-Staff Specialty: Orthopedic Surgery Address: [address] [place] [address], [id number] Email: Johanny Cuadra DO Primary Care Provider Physician Specialty: Family Practice Address: [address] [place] [address], [facility] Email: [email or web address] Hector Marquez MD Attending Provider Non-Staff Specialty: Orthopedic Surgery Address: [address] [place] [address], [id number] Email: Physical Therapy Re-Evaluation PT-OP-A Visit Information Start: 12/18/18 08:14 Freq: Status: Active Protocol: Document 02/24/19 11:26 [facility] (Rec: 02/24/19 12:12 SAK [id number]) Out-Patient Physical Therapy Visit Information Visit Information Visit Type Progress Note Visit Start Time 11:15 Visit Stop Time 12:10 Total Visit Minutes 55 Visit Number 11 Number of [employer] Visits 0 Evaluation Information Evaluation Date 12/18/18 Precautions Precautions no further cervical collar PT-OP-B Current Condition Start: 12/18/18 08:14 Freq: Status: Active Protocol: Document 12/18/18 09:49 [facility] (Rec: 12/18/18 10:00 [facility] [id number]) Current Condition History of Current Condition Onset Date 12/08/18 Current Complaints pain, decreased ROM and strength of cervical spine History of Current Condition C2-5 spine surgery cleaned up and put in 4 spacers due to pain and crepitus in neck. Reports off pain med 2 days after surgery. Anticipating right shoulder surgery. Wearing rigid collar. Future Testing and Treatments Planned Goes back to surgeon Jan 07. Anticipating surgery for right shoulder in near future. Treatment Goals Patient/Caregiver Goals Regain functional use of his neck including ability to turn head for safe driving, move in all directions without pain Prior Functional Status Baseline Function- ADL's Independent Baseline Function- Mobility Independent Baseline Function- Recreation/Hobbies hiking independent Current Functional Impairments (Reported) Functional Limitations- ADL's painful Functional Limitations- Mobility/Gait slow, guarded Functional Limitations- Recreation/ limited Hobbies Personal Factors Other Personal Factors That May Effect history chronic pain Therapy/Recovery PT-OP-C Subjective Start: 12/18/18 08:14 Freq: Status: Active Protocol: Document 02/24/19 11:26 [facility] (Rec: 02/24/19 12:12 [facility] [id number]) OP-PT Subjective Patient Comments Patient Comments REports doctor said to take the gloves off, no restrictions PT-OP-F Manual Assessment Start: 12/18/18 08:14 Freq: Status: Active Protocol: Document 12/18/18 09:49 [facility] (Rec: 12/19/18 12:32 [facility] [id number]) Manual Assessments Soft Tissue Assessment Soft Tissue Mobility Assessment Decreased mobility left cervical spine, upper trap musculature. Joint Mobility Assessment Joint Mobility Assessment deferred due to surgery PT-OP-H Neuro Start: 12/18/18 08:14 Freq: Status: Active Protocol: Document 12/18/18 09:49 [facility] (Rec: 12/19/18 12:32 [facility] [id number]) Sensation Evaluation Gross Sensation Sensation Description Numbness Tingling PT-OP-J Posture/Palpation/Skin Start: 12/18/18 08:14 Freq: Status: Active Protocol: Document 12/18/18 09:49 [facility] (Rec: 12/19/18 13:07 [facility] [id number]) Posture Evaluation Position Sitting Head/C-Spine Posture Extended Forward Head T-Spine Posture Increased Kyphosis Comments Posture Comments wearing rigid cervical collar. Palpation Assessment Location cervical spine Palpation Findings Soft Tissue Tightness Muscle Guarding Tenderness Palpation Details right cervical spine and upper traps Skin Assessment Incisional Assessment Incision Appearance/Comments healing well, no signs or symptoms of infection PT-OP-K Range of Motion Start: 12/18/18 08:14 Freq: Status: Active Protocol: Document 02/19/19 11:14 [facility] (Rec: 02/19/19 13:15 [facility] [id number]) Cervical Spine Range of Motion Cervical Spine Active Testing Position Sitting Flexion 45 Extension 10 Rotation Left 25 Rotation Right 30 Lateral Flexion Left 10 Lateral Flexion Right 10 ROM Limitations Soft Tissue Tightness Pain PT-OP-M Strength Start: 12/18/18 08:14 Freq: Status: Active Protocol: Document 02/19/19 11:14 [facility] (Rec: 02/19/19 13:15 [facility] [id number]) Scapula Strength Scapula Manual Muscle Testing Right Elevation (C4) 4 Good Adduction 4- Good- Abduction 3+ Fair+ Depression 3+ Fair+ Left Elevation (C4) 4 Good Adduction 4 Good Abduction 4 Good Depression 4 Good Elbow/Forearm Strength Elbow and Forearm Manual Muscle Testing Right Flexion (C6) 4- Good- Extension (C7) 4- Good- Left Flexion (C6) 4 Good Extension (C7) 4 Good PT-OP-Q Treatments Start: 12/18/18 08:14 Freq: Status: Active Protocol: Document 02/24/19 11:26 SAK (Rec: 02/24/19 12:12 [facility] [id number]) Cardio Equipment Recumbent Stepper (Sci-Fit) Duration (Minutes) 10 Resistance 2 Other UE's and LE's Gym Equipment Cable Column (Body Solid) Lat pull Resistance 20# Reps/Time 10x Therapeutic Exercises Supine Exercises shoulder hor ab Reps/Minutes 10x Comments end-range stretch serratus punch Resistance 2# weights Reps/Minutes 2x10 Sidelying Exercises reach and roll Reps/Minutes 10x Comments verbal and manual cues Standing Exercises hi rows Equipment Used L2 TB Reps/Minutes 10x PNF D2 Resistance L1 TB Reps/Minutes 10x Comments encouraging gentle cervical ROM follow hand tricep ext Equipment Used L2 TB Reps/Minutes 10x Sh ER Resistance L2 TB Reps/Minutes 10x shoulder add Resistance L2 TB Reps/Minutes 10x shld ext Equipment Used wand Reps/Minutes 10x bicep curl Equipment Used L2 TB Reps/Minutes 10x rows, shoulder ext Resistance L2 TB Reps/Minutes 10x Manual Therapy Treatment Taping 1 Body Location between scapula for postural correction, lower trap facil Type of Tape Kinesio Tape Comments 4 I strips PT-OP-R Modalities Start: 12/18/18 08:14 Freq: Status: Active Protocol: Document 02/24/19 11:26 [facility] (Rec: 02/24/19 12:12 [facility] [id number]) Hot Pack/Cold Pack Treatment cervical spine Location ice pack Patient Position Hooklying Patient Tolerance Good Comments coleen upper traps and periscapular area. PT-OP-T Assessment and Plan Start: 12/18/18 08:14 Freq: Status: Active Protocol: Document 02/24/19 11:26 [facility] (Rec: 02/24/19 12:12 [facility] [id number]) Physical Therapy Assessment Goals Four Impairment poor scapular strength and stabilization right, dec coleen UE strength Short Term Goal (STG) Instruct in HEP for purposes of strengthening and scapular stabilization 02/19/19: ongoing stabilization STG Duration 4 wks Intermediate Goal (LTG) Improve UE strength to at least 4+/5 to allow full functional use of UE's LTG Duration 3 months Three Manager Applied Goal (LTG) Improve soft tissue mobility in cervical spine to WNL 02/19/19: good goal progress LTG Duration 3 months Two Impairment decreased strength cervical spine Manager Applied Goal (LTG) Improve cervical spine strength to WNL to improve patient's function 02/19/19: goal progress LTG Duration 3 months One Impairment limited cervical ROM Manager Applied Goal (LTG) Cervical spine ROM WNL to allow patient to turn adequately for driving and ADL 's 02/19/19: awaiting removal of cervical collar per physician order LTG Duration 3 months Assessment Summary Assessment Good exercise tolerance, denied increase in pain with progression of ther ex. Improving scapular control Physical Therapy Plan Frequency and Duration Frequency of Treatment 2x/Week Duration of Treatment 3 months Plan of Care Start Date 12/18/18 Plan of Care End Date 03/17/19 Therapeutic Interventions Therapeutic Interventions Aquatic Therapy Home Exercise Program Manual Therapy Neuromuscular Re-education Patient/Caregiver Education Self-Care/Home Management Soft Tissue Mobilization Taping Therapeutic Activities Therapeutic Exercises Modalities Cold Pack/Ice Massage Electric Stimulation Hot Packs Next Visit Focus/Plan Next Note Type Treatment Note Next Visit Plan Evaluate response to last session and progress as tolerated per physician order.
--- NOTE | 2019-02-24 12:16 | PT.OPPOC ---
Current Diagnoses Radiculopathy, cervical region (02/24/19) Arthrodesis status (02/24/19) Provider Visit Care Team Role Provider Type Hector Marquez orthopedic surgeon Non-Staff Specialty: Orthopedic Surgery Address: [address] [place] [address], [address] Email: Johanny Cuadra DO Primary Care Provider Physician Specialty: Family Practice Address: [address] [place] [address], [address] Email: [email or web address] Hector Marquez MD Attending Provider Non-Staff Specialty: Orthopedic Surgery Address: [address] [place] [address], [id number] Email: Plan Of Care PT-OP-T Assessment and Plan Start: 12/18/18 08:14 Freq: Status: Active Protocol: Document 02/24/19 11:26 SAK (Rec: 02/24/19 12:12 [facility] [id number]) Physical Therapy Assessment Goals Four Impairment poor scapular strength and stabilization right, dec coleen UE strength Short Term Goal (STG) Instruct in HEP for purposes of strengthening and scapular stabilization 02/19/19: ongoing stabilization STG Duration 4 wks [facility] Goal (LTG) Improve UE strength to at least 4+/5 to allow full functional use of UE's LTG Duration 3 months Three Combustion Analyst Goal (LTG) Improve soft tissue mobility in cervical spine to WNL 02/19/19: good goal progress LTG Duration 3 months Two Impairment decreased strength cervical spine [facility]fp Goal (LTG) Improve cervical spine strength to WNL to improve patient's function 02/19/19: goal progress LTG Duration 3 months One Impairment limited cervical ROM [facility]fp Goal (LTG) Cervical spine ROM WNL to allow patient to turn adequately for driving and ADL 's 02/19/19: awaiting removal of cervical collar per physician order LTG Duration 3 months Assessment Summary Assessment Good exercise tolerance, denied increase in pain with progression of ther ex. Improving scapular control Physical Therapy Plan Frequency and Duration Frequency of Treatment 2x/Week Duration of Treatment 3 months Plan of Care Start Date 12/18/18 Plan of Care End Date 03/17/19 Therapeutic Interventions Therapeutic Interventions Aquatic Therapy Home Exercise Program Manual Therapy Neuromuscular Re-education Patient/Caregiver Education Self-Care/Home Management Soft Tissue Mobilization Taping Therapeutic Activities Therapeutic Exercises Modalities Cold Pack/Ice Massage Electric Stimulation Hot Packs Next Visit Focus/Plan Next Note Type Treatment Note Next Visit Plan Evaluate response to last session and progress as tolerated per physician order. Plan of Care Dates Plan of Care Start Date 12/18/18 Plan of Care End Date 03/17/19 Please Sign and Return: I have reviewed this Plan of Care and certify that the skilled therapy services above are required to meet the patient?s needs. Physician Signature Date Printed Name and Credentials Clinical Instructor Signature Printed Name and Credentials
--- NOTE | 2019-02-24 16:26 | PT.OPPOC ---
Late entry for 12/18/18, POC not sent) Current Diagnoses Radiculopathy, cervical region (02/24/19) Arthrodesis status (02/24/19) Provider Visit Care Team Role Provider Type Hector Marquez orthopedic surgeon Non-Staff Specialty: Orthopedic Surgery Address: [address] [place] [address], [address] Email: Johanny Cuadra DO Primary Care Provider Physician Specialty: Family Practice Address: [address] [place] [address], [address] Email: [email or web address] Hector Marquez MD Attending Provider Non-Staff Specialty: Orthopedic Surgery Address: [address] [place] [address], [address] Email: Plan Of Care PT-OP-T Assessment and Plan Start: 12/18/18 08:14 Freq: Status: Active Protocol: Document 02/24/19 11:26 [facility] (Rec: 02/24/19 12:12 [facility] [id number]) Physical Therapy Assessment Goals Four Impairment poor scapular strength and stabilization right, dec coleen UE strength Short Term Goal (STG) Instruct in HEP for purposes of strengthening and scapular stabilization STG Duration 4 wks Usp Goal (LTG) Improve UE strength to at least 4+/5 to allow full functional use of UE's LTG Duration 3 months Three [employer] Instructor Goal (LTG) Improve soft tissue mobility in cervical spine to WNL LTG Duration 3 months Two Impairment decreased strength cervical spine Usp Goal (LTG) Improve cervical spine strength to WNL to improve patient's function LTG Duration 3 months One Impairment limited cervical ROM Usp Goal (LTG) Cervical spine ROM WNL to allow patient to turn adequately for driving and ADL 's LTG Duration 3 months Assessment Summary Assessment Patient presents to PT s/p cervical spine surgery 2 wks ago, wearing rigid cervical collar. Will benefit from PT for ROM, strengthening, and spinal stabilization per physician order to help him return to normal activities. Physical Therapy Plan Frequency and Duration Frequency of Treatment 2x/Week Duration of Treatment 3 months Plan of Care Start Date 12/18/18 Plan of Care End Date 03/17/19 Therapeutic Interventions Therapeutic Interventions Aquatic Therapy Home Exercise Program Manual Therapy Neuromuscular Re-education Patient/Caregiver Education Self-Care/Home Management Soft Tissue Mobilization Taping Therapeutic Activities Therapeutic Exercises Modalities Cold Pack/Ice Massage Electric Stimulation Hot Packs Next Visit Focus/Plan Next Note Type Treatment Note Next Visit Plan Evaluate response to last session and progress as tolerated per physician order. Plan of Care Dates Plan of Care Start Date 12/18/18 Plan of Care End Date 03/17/19 Please Sign and Return: I have reviewed this Plan of Care and certify that the skilled therapy services above are required to meet the patient?s needs. Physician Signature Date Printed Name and Credentials Clinical Instructor Signature Printed Name and Credentials
--- NOTE | 2019-02-26 10:56 | PT.OTN ---
Current Diagnoses Radiculopathy, cervical region (02/26/19) Arthrodesis status (02/26/19) Physical Therapy Treatment Note PT-OP-A Visit Information Start: 12/18/18 08:14 Freq: Status: Active Protocol: Document 02/26/19 09:02 SAK (Rec: 02/26/19 09:50 SAK [id number]) Out-Patient Physical Therapy Visit Information Visit Information Visit Type Progress Note Visit Start Time 09:00 Visit Stop Time 09:55 Total Visit Minutes 55 Visit Number 13 Number of TEST DECK SUPERVISOR Visits 0 Evaluation Information Evaluation Date 12/18/18 Precautions Precautions no further cervical collar PT-OP-B Current Condition Start: 12/18/18 08:14 Freq: Status: Active Protocol: Document 12/18/18 09:49 SAK (Rec: 12/18/18 10:00 SAK [id number]) Current Condition History of Current Condition Onset Date 12/08/18 Current Complaints pain, decreased ROM and strength of cervical spine History of Current Condition C2-5 spine surgery cleaned up and put in 4 spacers due to pain and crepitus in neck. Reports off pain med 2 days after surgery. Anticipating right shoulder surgery. Wearing rigid collar. Future Testing and Treatments Planned Goes back to surgeon Jan 07. Anticipating surgery for right shoulder in near future. Treatment Goals Patient/Caregiver Goals Regain functional use of his neck including ability to turn head for safe driving, move in all directions without pain Prior Functional Status Baseline Function- ADL's Independent Baseline Function- Mobility Independent Baseline Function- Recreation/Hobbies hiking independent Current Functional Impairments (Reported) Functional Limitations- ADL's painful Functional Limitations- Mobility/Gait slow, guarded Functional Limitations- Recreation/ limited Hobbies Personal Factors Other Personal Factors That May Effect history chronic pain Therapy/Recovery PT-OP-C Subjective Start: 12/18/18 08:14 Freq: Status: Active Protocol: Document 02/26/19 09:02 SAK (Rec: 02/26/19 09:50 SAK [id number]) OP-PT Subjective Patient Comments Patient Comments stiff, but no increase in pain PT-OP-F Manual Assessment Start: 12/18/18 08:14 Freq: Status: Active Protocol: Document 12/18/18 09:49 SAK (Rec: 12/19/18 12:32 [facility] [id number]) Manual Assessments Soft Tissue Assessment Soft Tissue Mobility Assessment Decreased mobility left cervical spine, upper trap musculature. Joint Mobility Assessment Joint Mobility Assessment deferred due to surgery PT-OP-H Neuro Start: 12/18/18 08:14 Freq: Status: Active Protocol: Document 12/18/18 09:49 SAK (Rec: 12/19/18 12:32 [facility] [id number]) Sensation Evaluation Gross Sensation Sensation Description Numbness Tingling PT-OP-J Posture/Palpation/Skin Start: 12/18/18 08:14 Freq: Status: Active Protocol: Document 12/18/18 09:49 SAK (Rec: 12/19/18 13:07 [facility] [id number]) Posture Evaluation Position Sitting Head/C-Spine Posture Extended Forward Head T-Spine Posture Increased Kyphosis Comments Posture Comments wearing rigid cervical collar. Palpation Assessment Location cervical spine Palpation Findings Soft Tissue Tightness Muscle Guarding Tenderness Palpation Details right cervical spine and upper traps Skin Assessment Incisional Assessment Incision Appearance/Comments healing well, no signs or symptoms of infection PT-OP-K Range of Motion Start: 12/18/18 08:14 Freq: Status: Active Protocol: Document 02/19/19 11:14 [facility] (Rec: 02/19/19 13:15 [facility] [id number]) Cervical Spine Range of Motion Cervical Spine Active Testing Position Sitting Flexion 45 Extension 10 Rotation Left 25 Rotation Right 30 Lateral Flexion Left 10 Lateral Flexion Right 10 ROM Limitations Soft Tissue Tightness Pain PT-OP-M Strength Start: 12/18/18 08:14 Freq: Status: Active Protocol: Document 02/19/19 11:14 [facility] (Rec: 02/19/19 13:15 [facility] [id number]) Scapula Strength Scapula Manual Muscle Testing Right Elevation (C4) 4 Good Adduction 4- Good- Abduction 3+ Fair+ Depression 3+ Fair+ Left Elevation (C4) 4 Good Adduction 4 Good Abduction 4 Good Depression 4 Good Elbow/Forearm Strength Elbow and Forearm Manual Muscle Testing Right Flexion (C6) 4- Good- Extension (C7) 4- Good- Left Flexion (C6) 4 Good Extension (C7) 4 Good PT-OP-Q Treatments Start: 12/18/18 08:14 Freq: Status: Active Protocol: Document 02/26/19 09:02 SAK (Rec: 02/26/19 09:50 [facility] [id number]) Cardio Equipment Recumbent Stepper (Sci-Fit) Duration (Minutes) 10 Resistance 2 Other UE's and LE's Gym Equipment Cable Column (Body Solid) Lat pull Resistance 20# Reps/Time 10x Therapeutic Exercises Supine Exercises shoulder hor ab Resistance 2# Reps/Minutes 10x Comments end-range stretch shoulder flex Resistance 2# Reps/Minutes 10x Comments end range stretch after 10 serratus punch Resistance 2# weights Reps/Minutes 2x10 Sidelying Exercises reach and roll Reps/Minutes 10x Comments verbal and manual cues Sitting Exercises pulleys shoulder ab Reps/Minutes 10x pulleys shoulder fle Reps/Minutes 10x Standing Exercises damian cervical ext, SB Equipment Used ball against wall Reps/Minutes 5x hi rows Equipment Used L2 TB Reps/Minutes 10x PNF D2 Resistance L2 TB Reps/Minutes 10x Comments encouraging gentle cervical ROM follow hand shoulder add Resistance L2 TB Reps/Minutes 10x shoulder ER Resistance L2 TB Reps/Minutes 10x rows, shoulder ext Resistance L2 TB Reps/Minutes 10x Manual Therapy Treatment Soft Tissue Mobilization manual pec stretch] Mobilization Type Sustained Pressure Intensity/Depth Moderate Body Position Hooklying upper traps, rhomboids, levator scap Mobilization Type Myofascial Release Rolling Intensity/Depth gentle Body Position Hooklying Self-Care/Home Management Treatment Education Patient Education Home Exercise Program Other Education updated written handout PT-OP-R Modalities Start: 12/18/18 08:14 Freq: Status: Active Protocol: Document 02/26/19 09:02 [facility] (Rec: 02/26/19 09:50 [facility] [id number]) Hot Pack/Cold Pack Treatment cervical spine Location ice pack Patient Position Hooklying Patient Tolerance Good Comments coleen upper traps and periscapular area. PT-OP-T Assessment and Plan Start: 12/18/18 08:14 Freq: Status: Active Protocol: Document 02/26/19 09:02 [facility] (Rec: 02/26/19 09:50 [facility] [id number]) Physical Therapy Assessment Goals Four Impairment poor scapular strength and stabilization right, dec coleen UE strength Short Term Goal (STG) Instruct in HEP for purposes of strengthening and scapular stabilization 02/19/19: ongoing stabilization STG Duration 4 wks Usp Goal (LTG) Improve UE strength to at least 4+/5 to allow full functional use of UE's LTG Duration 3 months Three Padded Products Inspector Trimmer Goal (LTG) Improve soft tissue mobility in cervical spine to WNL 02/19/19: good goal progress LTG Duration 3 months Two Impairment decreased strength cervical spine Padded Products Inspector Trimmer Goal (LTG) Improve cervical spine strength to WNL to improve patient's function 02/19/19: goal progress LTG Duration 3 months One Impairment limited cervical ROM Padded Products Inspector Trimmer Goal (LTG) Cervical spine ROM WNL to allow patient to turn adequately for driving and ADL 's 02/19/19: awaiting removal of cervical collar per physician order LTG Duration 3 months Assessment Summary Assessment verbal and manual cues for scapular control. Emphasis on gentle cervical contraction with isometrics. Good progress Physical Therapy Plan Frequency and Duration Frequency of Treatment 2x/Week Duration of Treatment 3 months Plan of Care Start Date 12/18/18 Plan of Care End Date 03/17/19 Therapeutic Interventions Therapeutic Interventions Aquatic Therapy Home Exercise Program Manual Therapy Neuromuscular Re-education Patient/Caregiver Education Self-Care/Home Management Soft Tissue Mobilization Taping Therapeutic Activities Therapeutic Exercises Modalities Cold Pack/Ice Massage Electric Stimulation Hot Packs Next Visit Focus/Plan Next Note Type Treatment Note Next Visit Plan Evaluate response to last session and progress as tolerated per physician order.
--- NOTE | 2019-03-03 15:34 | PT.OTN ---
Current Diagnoses Radiculopathy, cervical region (03/03/19) Arthrodesis status (03/03/19) Physical Therapy Treatment Note PT-OP-A Visit Information Start: 12/18/18 08:14 Freq: Status: Active Protocol: Document 03/03/19 09:00 SAK (Rec: 03/03/19 09:45 SAK [id number]) Out-Patient Physical Therapy Visit Information Visit Information Visit Type Progress Note Visit Start Time 09:00 Visit Stop Time 09:55 Total Visit Minutes 55 Visit Number 13 Number of FIRM ADMINISTRATOR Visits 0 Evaluation Information Evaluation Date 12/18/18 Precautions Precautions no further cervical collar PT-OP-B Current Condition Start: 12/18/18 08:14 Freq: Status: Active Protocol: Document 12/18/18 09:49 SAK (Rec: 12/18/18 10:00 SAK [id number]) Current Condition History of Current Condition Onset Date 12/08/18 Current Complaints pain, decreased ROM and strength of cervical spine History of Current Condition C2-5 spine surgery cleaned up and put in 4 spacers due to pain and crepitus in neck. Reports off pain med 2 days after surgery. Anticipating right shoulder surgery. Wearing rigid collar. Future Testing and Treatments Planned Goes back to surgeon Jan 07. Anticipating surgery for right shoulder in near future. Treatment Goals Patient/Caregiver Goals Regain functional use of his neck including ability to turn head for safe driving, move in all directions without pain Prior Functional Status Baseline Function- ADL's Independent Baseline Function- Mobility Independent Baseline Function- Recreation/Hobbies hiking independent Current Functional Impairments (Reported) Functional Limitations- ADL's painful Functional Limitations- Mobility/Gait slow, guarded Functional Limitations- Recreation/ limited Hobbies Personal Factors Other Personal Factors That May Effect history chronic pain Therapy/Recovery PT-OP-C Subjective Start: 12/18/18 08:14 Freq: Status: Active Protocol: Document 03/03/19 09:00 SAK (Rec: 03/03/19 09:45 SAK [id number]) OP-PT Subjective Patient Comments Patient Comments woke up 02/27/19 with increased neck stiffness, then low back started hurting. No ex for a few days, states was unable to lift right arm up overhead or tie flies comfortably. States he didn't put cervical collar back on as recommended if symptoms increased. PT-OP-F Manual Assessment Start: 12/18/18 08:14 Freq: Status: Active Protocol: Document 12/18/18 09:49 SAK (Rec: 12/19/18 12:32 [facility] [id number]) Manual Assessments Soft Tissue Assessment Soft Tissue Mobility Assessment Decreased mobility left cervical spine, upper trap musculature. Joint Mobility Assessment Joint Mobility Assessment deferred due to surgery PT-OP-H Neuro Start: 12/18/18 08:14 Freq: Status: Active Protocol: Document 12/18/18 09:49 SAK (Rec: 12/19/18 12:32 [facility] [id number]) Sensation Evaluation Gross Sensation Sensation Description Numbness Tingling PT-OP-J Posture/Palpation/Skin Start: 12/18/18 08:14 Freq: Status: Active Protocol: Document 12/18/18 09:49 SAK (Rec: 12/19/18 13:07 [facility] [id number]) Posture Evaluation Position Sitting Head/C-Spine Posture Extended Forward Head T-Spine Posture Increased Kyphosis Comments Posture Comments wearing rigid cervical collar. Palpation Assessment Location cervical spine Palpation Findings Soft Tissue Tightness Muscle Guarding Tenderness Palpation Details right cervical spine and upper traps Skin Assessment Incisional Assessment Incision Appearance/Comments healing well, no signs or symptoms of infection PT-OP-K Range of Motion Start: 12/18/18 08:14 Freq: Status: Active Protocol: Document 02/19/19 11:14 SAK (Rec: 02/19/19 13:15 [facility] [id number]) Cervical Spine Range of Motion Cervical Spine Active Testing Position Sitting Flexion 45 Extension 10 Rotation Left 25 Rotation Right 30 Lateral Flexion Left 10 Lateral Flexion Right 10 ROM Limitations Soft Tissue Tightness Pain PT-OP-M Strength Start: 12/18/18 08:14 Freq: Status: Active Protocol: Document 02/19/19 11:14 SAK (Rec: 02/19/19 13:15 SAK [id number]) Scapula Strength Scapula Manual Muscle Testing Right Elevation (C4) 4 Good Adduction 4- Good- Abduction 3+ Fair+ Depression 3+ Fair+ Left Elevation (C4) 4 Good Adduction 4 Good Abduction 4 Good Depression 4 Good Elbow/Forearm Strength Elbow and Forearm Manual Muscle Testing Right Flexion (C6) 4- Good- Extension (C7) 4- Good- Left Flexion (C6) 4 Good Extension (C7) 4 Good PT-OP-Q Treatments Start: 12/18/18 08:14 Freq: Status: Active Protocol: Document 03/03/19 09:00 [facility] (Rec: 03/03/19 09:45 [facility] [id number]) Cardio Equipment Recumbent Stepper (Sci-Fit) Duration (Minutes) 10 Resistance 2 Other UE's and LE's Treadmill Duration (Minutes) 10 Speed 2.0 Therapeutic Exercises Supine Exercises cervical rotation Reps/Minutes 5x shoulder hor ab Reps/Minutes 10x Comments end-range stretch shoulder flex Reps/Minutes 10x Comments end range stretch after 10 serratus punch Reps/Minutes 2x10 Sidelying Exercises reach and roll Reps/Minutes 10x Comments verbal and manual cues Sitting Exercises pulleys shoulder ab Reps/Minutes 10x pulleys shoulder fle Reps/Minutes 10x Standing Exercises rows, shoulder ext Resistance manual Reps/Minutes 10x Manual Therapy Treatment Soft Tissue Mobilization SCM Mobilization Type Myofascial Release Rolling Strumming Interscap/Thoracic paraspinals Mobilization Type Myofascial Release Rolling Strumming Sustained Pressure Intensity/Depth Moderate Body Position Sidelying manual pec stretch] Mobilization Type Sustained Pressure Intensity/Depth Moderate Body Position Hooklying upper traps, rhomboids, levator scap Mobilization Type Myofascial Release Rolling Intensity/Depth gentle Body Position Hooklying Taping 1 Body Location between scapula for postural correction, lower trap facil Type of Tape Kinesio Tape Comments 4 I strips Self-Care/Home Management Treatment Education Other Education ease off of resistance but continue with HEP PT-OP-R Modalities Start: 12/18/18 08:14 Freq: Status: Active Protocol: Document 03/03/19 09:00 [facility] (Rec: 03/03/19 09:45 [facility] [id number]) Hot Pack/Cold Pack Treatment cervical spine Location ice pack Patient Position Hooklying Patient Tolerance Good Comments coleen upper traps and periscapular area. PT-OP-T Assessment and Plan Start: 12/18/18 08:14 Freq: Status: Active Protocol: Document 03/03/19 09:00 [facility] (Rec: 03/03/19 09:45 [facility] [id number]) Physical Therapy Assessment Goals Four Impairment poor scapular strength and stabilization right, dec coleen UE strength Short Term Goal (STG) Instruct in HEP for purposes of strengthening and scapular stabilization 02/19/19: ongoing stabilization STG Duration 4 wks Assisted Goal (LTG) Improve UE strength to at least 4+/5 to allow full functional use of UE's LTG Duration 3 months Three Manager Port Goal (LTG) Improve soft tissue mobility in cervical spine to WNL 02/19/19: good goal progress LTG Duration 3 months Two Impairment decreased strength cervical spine Assisted Goal (LTG) Improve cervical spine strength to WNL to improve patient's function 02/19/19: goal progress LTG Duration 3 months One Impairment limited cervical ROM Manager Port Goal (LTG) Cervical spine ROM WNL to allow patient to turn adequately for driving and ADL 's 02/19/19: awaiting removal of cervical collar per physician order LTG Duration 3 months Assessment Summary Assessment Eliminated isometrics, dec resistance for modifications to ex due to increased soreness. Poor scapular control limiting factor in recovery. Physical Therapy Plan Frequency and Duration Frequency of Treatment 2x/Week Duration of Treatment 3 months Plan of Care Start Date 12/18/18 Plan of Care End Date 03/17/19 Therapeutic Interventions Therapeutic Interventions Aquatic Therapy Home Exercise Program Manual Therapy Neuromuscular Re-education Patient/Caregiver Education Self-Care/Home Management Soft Tissue Mobilization Taping Therapeutic Activities Therapeutic Exercises Modalities Cold Pack/Ice Massage Electric Stimulation Hot Packs Next Visit Focus/Plan Next Note Type Treatment Note Next Visit Plan assess response to today's session, gentle ther ex progression as demetria, manual therapy and modalities as needed for pain.
--- NOTE | 2019-03-05 14:27 | PT.OTN ---
Current Diagnoses Radiculopathy, cervical region (03/05/19) Arthrodesis status (03/05/19) Physical Therapy Treatment Note PT-OP-A Visit Information Start: 12/18/18 08:14 Freq: Status: Active Protocol: Document 03/05/19 09:00 SAK (Rec: 03/05/19 09:46 SAK [id number]) Out-Patient Physical Therapy Visit Information Visit Information Visit Type Treatment Note Visit Start Time 09:00 Visit Stop Time 09:55 Total Visit Minutes 55 Visit Number 15 Number of TABLEAU ADMINISTRATOR Visits 0 Evaluation Information Evaluation Date 12/18/18 Precautions Precautions no further cervical collar PT-OP-B Current Condition Start: 12/18/18 08:14 Freq: Status: Active Protocol: Document 12/18/18 09:49 SAK (Rec: 12/18/18 10:00 SAK [id number]) Current Condition History of Current Condition Onset Date 12/08/18 Current Complaints pain, decreased ROM and strength of cervical spine History of Current Condition C2-5 spine surgery cleaned up and put in 4 spacers due to pain and crepitus in neck. Reports off pain med 2 days after surgery. Anticipating right shoulder surgery. Wearing rigid collar. Future Testing and Treatments Planned Goes back to surgeon Jan 07. Anticipating surgery for right shoulder in near future. Treatment Goals Patient/Caregiver Goals Regain functional use of his neck including ability to turn head for safe driving, move in all directions without pain Prior Functional Status Baseline Function- ADL's Independent Baseline Function- Mobility Independent Baseline Function- Recreation/Hobbies hiking independent Current Functional Impairments (Reported) Functional Limitations- ADL's painful Functional Limitations- Mobility/Gait slow, guarded Functional Limitations- Recreation/ limited Hobbies Personal Factors Other Personal Factors That May Effect history chronic pain Therapy/Recovery PT-OP-C Subjective Start: 12/18/18 08:14 Freq: Status: Active Protocol: Document 03/05/19 09:00 SAK (Rec: 03/05/19 09:46 SAK [id number]) OP-PT Subjective Patient Comments Patient Comments right scapular muscles lit up in middle of night with tingling into his hand. PT-OP-F Manual Assessment Start: 12/18/18 08:14 Freq: Status: Active Protocol: Document 12/18/18 09:49 SAK (Rec: 12/19/18 12:32 SAK [id number]) Manual Assessments Soft Tissue Assessment Soft Tissue Mobility Assessment Decreased mobility left cervical spine, upper trap musculature. Joint Mobility Assessment Joint Mobility Assessment deferred due to surgery PT-OP-H Neuro Start: 12/18/18 08:14 Freq: Status: Active Protocol: Document 12/18/18 09:49 SAK (Rec: 12/19/18 12:32 [facility] [id number]) Sensation Evaluation Gross Sensation Sensation Description Numbness Tingling PT-OP-J Posture/Palpation/Skin Start: 12/18/18 08:14 Freq: Status: Active Protocol: Document 12/18/18 09:49 SAK (Rec: 12/19/18 13:07 [facility] [id number]) Posture Evaluation Position Sitting Head/C-Spine Posture Extended Forward Head T-Spine Posture Increased Kyphosis Comments Posture Comments wearing rigid cervical collar. Palpation Assessment Location cervical spine Palpation Findings Soft Tissue Tightness Muscle Guarding Tenderness Palpation Details right cervical spine and upper traps Skin Assessment Incisional Assessment Incision Appearance/Comments healing well, no signs or symptoms of infection PT-OP-K Range of Motion Start: 12/18/18 08:14 Freq: Status: Active Protocol: Document 02/19/19 11:14 [facility] (Rec: 02/19/19 13:15 [facility] [id number]) Cervical Spine Range of Motion Cervical Spine Active Testing Position Sitting Flexion 45 Extension 10 Rotation Left 25 Rotation Right 30 Lateral Flexion Left 10 Lateral Flexion Right 10 ROM Limitations Soft Tissue Tightness Pain PT-OP-M Strength Start: 12/18/18 08:14 Freq: Status: Active Protocol: Document 02/19/19 11:14 [facility] (Rec: 02/19/19 13:15 [facility] [id number]) Scapula Strength Scapula Manual Muscle Testing Right Elevation (C4) 4 Good Adduction 4- Good- Abduction 3+ Fair+ Depression 3+ Fair+ Left Elevation (C4) 4 Good Adduction 4 Good Abduction 4 Good Depression 4 Good Elbow/Forearm Strength Elbow and Forearm Manual Muscle Testing Right Flexion (C6) 4- Good- Extension (C7) 4- Good- Left Flexion (C6) 4 Good Extension (C7) 4 Good PT-OP-Q Treatments Start: 12/18/18 08:14 Freq: Status: Active Protocol: Document 03/05/19 09:00 SAK (Rec: 03/05/19 09:46 [facility] [id number]) Therapeutic Exercises Supine Exercises isometric hold Equipment Used holding 45 cm ball Reps/Minutes 2 min arm circles Reps/Minutes 10x Comments small shoulder hor ab Reps/Minutes 10x Comments end-range stretch shoulder flex Reps/Minutes 10x Comments end range stretch after 10 serratus punch Reps/Minutes 2x10 Sidelying Exercises scapular clocks Reps/Minutes 10x Comments verbal and manual cues reach and roll Reps/Minutes 10x Comments verbal and manual cues Manual Therapy Treatment Soft Tissue Mobilization SCM Mobilization Type Myofascial Release Rolling Strumming Interscap/Thoracic paraspinals Mobilization Type Myofascial Release Rolling Strumming Sustained Pressure Intensity/Depth Moderate Body Position Sidelying manual pec stretch] Mobilization Type Sustained Pressure Intensity/Depth Moderate Body Position Hooklying upper traps, rhomboids, levator scap Mobilization Type Myofascial Release Rolling Intensity/Depth gentle Body Position sidelying, supine Taping 1 Body Location between scapula for postural correction, lower trap facil Type of Tape Kinesio Tape Comments 4 I strips PT-OP-R Modalities Start: 12/18/18 08:14 Freq: Status: Active Protocol: Document 03/05/19 09:00 [facility] (Rec: 03/05/19 09:46 [facility] [id number]) Electric Stimulation Electric Stimulation IFC Body Location Thoracic/Intersncap Duration (Minutes) 15 Intensity 15 Contraction Type Normal Target/Sweep Sweep Patient Position Hooklying PT-OP-T Assessment and Plan Start: 12/18/18 08:14 Freq: Status: Active Protocol: Document 03/05/19 09:00 [facility] (Rec: 03/05/19 09:46 [facility] [id number]) Physical Therapy Assessment Goals Four Impairment poor scapular strength and stabilization right, dec coleen UE strength Short Term Goal (STG) Instruct in HEP for purposes of strengthening and scapular stabilization 02/19/19: ongoing stabilization STG Duration 4 wks Shelter Goal (LTG) Improve UE strength to at least 4+/5 to allow full functional use of UE's LTG Duration 3 months Three Shelter Goal (LTG) Improve soft tissue mobility in cervical spine to WNL 02/19/19: good goal progress LTG Duration 3 months Two Impairment decreased strength cervical spine Artillery Officer Goal (LTG) Improve cervical spine strength to WNL to improve patient's function 02/19/19: goal progress LTG Duration 3 months One Impairment limited cervical ROM Shelter Goal (LTG) Cervical spine ROM WNL to allow patient to turn adequately for driving and ADL 's 02/19/19: awaiting removal of cervical collar per physician order LTG Duration 3 months Assessment Summary Assessment responded well to re-taping, ther ex for neuromuscular control scapular reg with decreased symptoms Physical Therapy Plan Frequency and Duration Frequency of Treatment 2x/Week Duration of Treatment 3 months Plan of Care Start Date 12/18/18 Plan of Care End Date 03/17/19 Therapeutic Interventions Therapeutic Interventions Aquatic Therapy Home Exercise Program Manual Therapy Neuromuscular Re-education Patient/Caregiver Education Self-Care/Home Management Soft Tissue Mobilization Taping Therapeutic Activities Therapeutic Exercises Modalities Cold Pack/Ice Massage Electric Stimulation Hot Packs Next Visit Focus/Plan Next Note Type Treatment Note Next Visit Plan continue PT for neuromuscular control, postural correction, strengthening, modalities and manual therapy as needed for pain.
--- NOTE | 2019-03-05 16:48 | PT.OTN ---
Current Diagnoses Radiculopathy, cervical region (03/05/19) Arthrodesis status (03/05/19) Physical Therapy Treatment Note PT-OP-A Visit Information Start: 12/18/18 08:14 Freq: Status: Active Protocol: Document 03/05/19 09:00 SAK (Rec: 03/05/19 09:46 SAK [id number]) Out-Patient Physical Therapy Visit Information Visit Information Visit Type Treatment Note Visit Start Time 09:00 Visit Stop Time 09:55 Total Visit Minutes 55 Visit Number 15 Number of CAR DRIVER Visits 0 Evaluation Information Evaluation Date 12/18/18 Precautions Precautions no further cervical collar PT-OP-B Current Condition Start: 12/18/18 08:14 Freq: Status: Active Protocol: Document 12/18/18 09:49 SAK (Rec: 12/18/18 10:00 SAK [id number]) Current Condition History of Current Condition Onset Date 12/08/18 Current Complaints pain, decreased ROM and strength of cervical spine History of Current Condition C2-5 spine surgery cleaned up and put in 4 spacers due to pain and crepitus in neck. Reports off pain med 2 days after surgery. Anticipating right shoulder surgery. Wearing rigid collar. Future Testing and Treatments Planned Goes back to surgeon Jan 07. Anticipating surgery for right shoulder in near future. Treatment Goals Patient/Caregiver Goals Regain functional use of his neck including ability to turn head for safe driving, move in all directions without pain Prior Functional Status Baseline Function- ADL's Independent Baseline Function- Mobility Independent Baseline Function- Recreation/Hobbies hiking independent Current Functional Impairments (Reported) Functional Limitations- ADL's painful Functional Limitations- Mobility/Gait slow, guarded Functional Limitations- Recreation/ limited Hobbies Personal Factors Other Personal Factors That May Effect history chronic pain Therapy/Recovery PT-OP-C Subjective Start: 12/18/18 08:14 Freq: Status: Active Protocol: Document 03/05/19 09:00 SAK (Rec: 03/05/19 09:46 SAK [id number]) OP-PT Subjective Patient Comments Patient Comments right scapular muscles lit up in middle of night with tingling into his hand. PT-OP-F Manual Assessment Start: 12/18/18 08:14 Freq: Status: Active Protocol: Document 12/18/18 09:49 SAK (Rec: 12/19/18 12:32 SAK [email or web address]) Manual Assessments Soft Tissue Assessment Soft Tissue Mobility Assessment Decreased mobility left cervical spine, upper trap musculature. Joint Mobility Assessment Joint Mobility Assessment deferred due to surgery PT-OP-H Neuro Start: 12/18/18 08:14 Freq: Status: Active Protocol: Document 12/18/18 09:49 SAK (Rec: 12/19/18 12:32 [facility] [email or web address]) Sensation Evaluation Gross Sensation Sensation Description Numbness Tingling PT-OP-J Posture/Palpation/Skin Start: 12/18/18 08:14 Freq: Status: Active Protocol: Document 12/18/18 09:49 SAK (Rec: 12/19/18 13:07 [facility] [id number]) Posture Evaluation Position Sitting Head/C-Spine Posture Extended Forward Head T-Spine Posture Increased Kyphosis Comments Posture Comments wearing rigid cervical collar. Palpation Assessment Location cervical spine Palpation Findings Soft Tissue Tightness Muscle Guarding Tenderness Palpation Details right cervical spine and upper traps Skin Assessment Incisional Assessment Incision Appearance/Comments healing well, no signs or symptoms of infection PT-OP-K Range of Motion Start: 12/18/18 08:14 Freq: Status: Active Protocol: Document 02/19/19 11:14 [facility] (Rec: 02/19/19 13:15 [facility] [id number]) Cervical Spine Range of Motion Cervical Spine Active Testing Position Sitting Flexion 45 Extension 10 Rotation Left 25 Rotation Right 30 Lateral Flexion Left 10 Lateral Flexion Right 10 ROM Limitations Soft Tissue Tightness Pain PT-OP-M Strength Start: 12/18/18 08:14 Freq: Status: Active Protocol: Document 02/19/19 11:14 [facility] (Rec: 02/19/19 13:15 [facility] [id number]) Scapula Strength Scapula Manual Muscle Testing Right Elevation (C4) 4 Good Adduction 4- Good- Abduction 3+ Fair+ Depression 3+ Fair+ Left Elevation (C4) 4 Good Adduction 4 Good Abduction 4 Good Depression 4 Good Elbow/Forearm Strength Elbow and Forearm Manual Muscle Testing Right Flexion (C6) 4- Good- Extension (C7) 4- Good- Left Flexion (C6) 4 Good Extension (C7) 4 Good PT-OP-Q Treatments Start: 12/18/18 08:14 Freq: Status: Active Protocol: Document 03/05/19 09:00 SAK (Rec: 03/05/19 09:46 [facility] [id number]) Therapeutic Exercises Supine Exercises isometric hold Equipment Used holding 45 cm ball Reps/Minutes 2 min Comments set scapula arm circles Reps/Minutes 10x Comments small shoulder hor ab Reps/Minutes 10x Comments end-range stretch shoulder flex Reps/Minutes 10x Comments end range stretch after 10 serratus punch Reps/Minutes 2x10 Sidelying Exercises scapular clocks Reps/Minutes 10x Comments verbal and manual cues reach and roll Reps/Minutes 10x Comments verbal and manual cues Manual Therapy Treatment Soft Tissue Mobilization SCM Mobilization Type Myofascial Release Rolling Strumming Interscap/Thoracic paraspinals Mobilization Type Myofascial Release Rolling Strumming Sustained Pressure Intensity/Depth Moderate Body Position Sidelying manual pec stretch] Mobilization Type Sustained Pressure Intensity/Depth Moderate Body Position Hooklying upper traps, rhomboids, levator scap Mobilization Type Myofascial Release Rolling Sustained Pressure Trigger Point Release Intensity/Depth gentle Body Position sidelying, supine Taping 1 Body Location between scapula for postural correction, lower trap facil Type of Tape Kinesio Tape Comments 4 I strips PT-OP-R Modalities Start: 12/18/18 08:14 Freq: Status: Active Protocol: Document 03/05/19 09:00 [facility] (Rec: 03/05/19 09:46 [facility] [id number]) Electric Stimulation Electric Stimulation IFC Body Location Thoracic/Intersncap Duration (Minutes) 15 Intensity 15 Contraction Type Normal Target/Sweep Sweep Patient Position Hooklying Hot Pack/Cold Pack Treatment cervical spine Location ice pack Patient Position Hooklying Patient Tolerance Good Comments coleen upper traps and periscapular area. PT-OP-T Assessment and Plan Start: 12/18/18 08:14 Freq: Status: Active Protocol: Document 03/05/19 09:00 [facility] (Rec: 03/05/19 09:46 [facility] [id number]) Physical Therapy Assessment Goals Four Impairment poor scapular strength and stabilization right, dec coleen UE strength Short Term Goal (STG) Instruct in HEP for purposes of strengthening and scapular stabilization 02/19/19: ongoing stabilization STG Duration 4 wks Shelter Goal (LTG) Improve UE strength to at least 4+/5 to allow full functional use of UE's LTG Duration 3 months Three Shelter Goal (LTG) Improve soft tissue mobility in cervical spine to WNL 02/19/19: good goal progress LTG Duration 3 months Two Impairment decreased strength cervical spine Shelter Goal (LTG) Improve cervical spine strength to WNL to improve patient's function 02/19/19: goal progress LTG Duration 3 months One Impairment limited cervical ROM Boiler Mechanic Goal (LTG) Cervical spine ROM WNL to allow patient to turn adequately for driving and ADL 's 02/19/19: awaiting removal of cervical collar per physician order LTG Duration 3 months Assessment Summary Assessment responded well to re-taping, ther ex for neuromuscular control scapular reg with decreased symptoms Physical Therapy Plan Frequency and Duration Frequency of Treatment 2x/Week Duration of Treatment 3 months Plan of Care Start Date 12/18/18 Plan of Care End Date 03/17/19 Therapeutic Interventions Therapeutic Interventions Aquatic Therapy Home Exercise Program Manual Therapy Neuromuscular Re-education Patient/Caregiver Education Self-Care/Home Management Soft Tissue Mobilization Taping Therapeutic Activities Therapeutic Exercises Modalities Cold Pack/Ice Massage Electric Stimulation Hot Packs Next Visit Focus/Plan Next Note Type Treatment Note Next Visit Plan continue PT for neuromuscular control, postural correction, strengthening, modalities and manual therapy as needed for pain.
--- NOTE | 2019-03-31 16:20 | PT.OTN ---
Current Diagnoses Radiculopathy, cervical region (03/31/19) Arthrodesis status (03/31/19) Physical Therapy Treatment Note PT-OP-A Visit Information Start: 12/18/18 08:14 Freq: Status: Active Protocol: Document 03/31/19 14:30 GGD (Rec: 03/31/19 16:20 GGD [id number]) Out-Patient Physical Therapy Visit Information Visit Information Visit Type Treatment Note Visit Start Time 14:30 Visit Stop Time 15:30 Total Visit Minutes 60 Visit Number 16 Number of LEAD RELAY TESTER Visits 1 PT-OP-B Current Condition Start: 12/18/18 08:14 Freq: Status: Active Protocol: Document 12/18/18 09:49 SAK (Rec: 12/18/18 10:00 SAK [id number]) Current Condition History of Current Condition Onset Date 12/08/18 Current Complaints pain, decreased ROM and strength of cervical spine History of Current Condition C2-5 spine surgery cleaned up and put in 4 spacers due to pain and crepitus in neck. Reports off pain med 2 days after surgery. Anticipating right shoulder surgery. Wearing rigid collar. Future Testing and Treatments Planned Goes back to surgeon Jan 07. Anticipating surgery for right shoulder in near future. Treatment Goals Patient/Caregiver Goals Regain functional use of his neck including ability to turn head for safe driving, move in all directions without pain Prior Functional Status Baseline Function- ADL's Independent Baseline Function- Mobility Independent Baseline Function- Recreation/Hobbies hiking independent Current Functional Impairments (Reported) Functional Limitations- ADL's painful Functional Limitations- Mobility/Gait slow, guarded Functional Limitations- Recreation/ limited Hobbies Personal Factors Other Personal Factors That May Effect history chronic pain Therapy/Recovery PT-OP-C Subjective Start: 12/18/18 08:14 Freq: Status: Active Protocol: Document 03/31/19 14:30 GGD (Rec: 03/31/19 16:20 GGD [id number]) OP-PT Subjective Patient Comments Patient Comments Pt states he having pain on top of shoulder blade. PT-OP-F Manual Assessment Start: 12/18/18 08:14 Freq: Status: Active Protocol: Document 12/18/18 09:49 SAK (Rec: 12/19/18 12:32 SAK [id number]) Manual Assessments Soft Tissue Assessment Soft Tissue Mobility Assessment Decreased mobility left cervical spine, upper trap musculature. Joint Mobility Assessment Joint Mobility Assessment deferred due to surgery PT-OP-H Neuro Start: 12/18/18 08:14 Freq: Status: Active Protocol: Document 12/18/18 09:49 SAK (Rec: 12/19/18 12:32 [facility] [id number]) Sensation Evaluation Gross Sensation Sensation Description Numbness Tingling PT-OP-J Posture/Palpation/Skin Start: 12/18/18 08:14 Freq: Status: Active Protocol: Document 12/18/18 09:49 SAK (Rec: 12/19/18 13:07 [facility] [id number]) Posture Evaluation Position Sitting Head/C-Spine Posture Extended Forward Head T-Spine Posture Increased Kyphosis Comments Posture Comments wearing rigid cervical collar. Palpation Assessment Location cervical spine Palpation Findings Soft Tissue Tightness Muscle Guarding Tenderness Palpation Details right cervical spine and upper traps Skin Assessment Incisional Assessment Incision Appearance/Comments healing well, no signs or symptoms of infection PT-OP-K Range of Motion Start: 12/18/18 08:14 Freq: Status: Active Protocol: Document 02/19/19 11:14 [facility] (Rec: 02/19/19 13:15 [facility] [id number]) Cervical Spine Range of Motion Cervical Spine Active Testing Position Sitting Flexion 45 Extension 10 Rotation Left 25 Rotation Right 30 Lateral Flexion Left 10 Lateral Flexion Right 10 ROM Limitations Soft Tissue Tightness Pain PT-OP-M Strength Start: 12/18/18 08:14 Freq: Status: Active Protocol: Document 02/19/19 11:14 [facility] (Rec: 02/19/19 13:15 [facility] [id number]) Scapula Strength Scapula Manual Muscle Testing Right Elevation (C4) 4 Good Adduction 4- Good- Abduction 3+ Fair+ Depression 3+ Fair+ Left Elevation (C4) 4 Good Adduction 4 Good Abduction 4 Good Depression 4 Good Elbow/Forearm Strength Elbow and Forearm Manual Muscle Testing Right Flexion (C6) 4- Good- Extension (C7) 4- Good- Left Flexion (C6) 4 Good Extension (C7) 4 Good PT-OP-Q Treatments Start: 12/18/18 08:14 Freq: Status: Active Protocol: Document 03/31/19 14:30 GGD (Rec: 03/31/19 16:20 GGD [id number]) Cardio Equipment Recumbent Stepper (Sci-Fit) Duration (Minutes) 10 Resistance 2 Other UE's and LE's Therapeutic Exercises Supine Exercises arm circles Reps/Minutes 10x Comments small shoulder hor ab Reps/Minutes 10x Comments end-range stretch shoulder flex Reps/Minutes 10x Comments end range stretch after 10 serratus punch Reps/Minutes 2x10 Sidelying Exercises scapular clocks Reps/Minutes 10x Comments verbal and manual cues reach and roll Reps/Minutes 10x Comments verbal and manual cues Manual Therapy Treatment Soft Tissue Mobilization SCM Mobilization Type Myofascial Release Rolling Strumming Interscap/Thoracic paraspinals Mobilization Type Myofascial Release Rolling Strumming Sustained Pressure Intensity/Depth Moderate Body Position Sidelying manual pec stretch] Mobilization Type Sustained Pressure Intensity/Depth Moderate Body Position Hooklying upper traps, rhomboids, levator scap Mobilization Type Myofascial Release Rolling Sustained Pressure Trigger Point Release Intensity/Depth gentle Body Position sidelying, supine Taping 1 Body Location between scapula for postural correction, lower trap facil Type of Tape Kinesio Tape Comments 4 I strips PT-OP-R Modalities Start: 12/18/18 08:14 Freq: Status: Active Protocol: Document 03/31/19 14:30 GGD (Rec: 03/31/19 16:20 GGD [id number]) Electric Stimulation Electric Stimulation IFC Body Location Thoracic/Intersncap Duration (Minutes) 15 Intensity 15 Contraction Type Normal Target/Sweep Sweep Patient Position Hooklying Combined With Heat/Cold Cold Pack PT-OP-T Assessment and Plan Start: 12/18/18 08:14 Freq: Status: Active Protocol: Document 03/31/19 14:30 GGD (Rec: 03/31/19 16:20 GGD [id number]) Physical Therapy Assessment Assessment Summary Assessment Pt had decrease in pain after STM. He had good tolerance the exercise. He did need cues for posture. Physical Therapy Plan Frequency and Duration Frequency of Treatment 2x/Week Duration of Treatment 3 months Plan of Care Start Date 12/18/18 Plan of Care End Date 03/17/19 Next Visit Focus/Plan Next Note Type Treatment Note Next Visit Plan continue PT for neuromuscular control, postural correction, strengthening, modalities and manual therapy as needed for pain.
--- NOTE | 2019-04-21 08:22 | PT.OTN ---
Current Diagnoses Radiculopathy, cervical region (03/31/19) Arthrodesis status (03/31/19) Physical Therapy Treatment Note Pt cancelled 04/23/19 appointment. He has not been seen in the clinic since 03/31/19. His plan of care on 03/17/19. He cancelled or no showed the 5 visits before 03/31/19. He is currently scheduled for 04/23/19. If he does not attend therapy on 04/23/19 then he will need to be discharged.
--- NOTE | 2019-04-23 09:57 | PT.OPDS ---
Current Diagnoses Radiculopathy, cervical region (03/31/19) Arthrodesis status (03/31/19) Provider Visit Care Team Role Provider Type Hector Marquez orthopedic surgeon Non-Staff Specialty: Orthopedic Surgery Address: [address] [place] [address], [id number] Email: Johanny Cuadra DO Primary Care Provider Physician Specialty: Family Practice Address: [address] [place] [address], [id number] Email: [email or web address] Hector Marquez MD Attending Provider Non-Staff Specialty: Orthopedic Surgery Address: [address] [place] [address], [id number] Email: Visit Number Visit Number 16 Discharge Summary PT-OP-B Current Condition Start: 12/18/18 08:14 Freq: Status: Active Protocol: Document 12/18/18 09:49 SAK (Rec: 12/18/18 10:00 SAK [id number]) Current Condition History of Current Condition Onset Date 12/08/18 Current Complaints pain, decreased ROM and strength of cervical spine History of Current Condition C2-5 spine surgery cleaned up and put in 4 spacers due to pain and crepitus in neck. Reports off pain med 2 days after surgery. Anticipating right shoulder surgery. Wearing rigid collar. Future Testing and Treatments Planned Goes back to surgeon Jan 07. Anticipating surgery for right shoulder in near future. Treatment Goals Patient/Caregiver Goals Regain functional use of his neck including ability to turn head for safe driving, move in all directions without pain Prior Functional Status Baseline Function- ADL's Independent Baseline Function- Mobility Independent Baseline Function- Recreation/Hobbies hiking independent Current Functional Impairments (Reported) Functional Limitations- ADL's painful Functional Limitations- Mobility/Gait slow, guarded Functional Limitations- Recreation/ limited Hobbies Personal Factors Other Personal Factors That May Effect history chronic pain Therapy/Recovery PT-OP-C Subjective Start: 12/18/18 08:14 Freq: Status: Active Protocol: Document 03/31/19 14:30 GGD (Rec: 03/31/19 16:20 GGD [id number]) OP-PT Subjective Patient Comments Patient Comments Pt states he having pain on top of shoulder blade. PT-OP-F Manual Assessment Start: 12/18/18 08:14 Freq: Status: Active Protocol: Document 12/18/18 09:49 SAK (Rec: 12/19/18 12:32 SAK [id number]) Manual Assessments Soft Tissue Assessment Soft Tissue Mobility Assessment Decreased mobility left cervical spine, upper trap musculature. Joint Mobility Assessment Joint Mobility Assessment deferred due to surgery PT-OP-H Neuro Start: 12/18/18 08:14 Freq: Status: Active Protocol: Document 12/18/18 09:49 SAK (Rec: 12/19/18 12:32 SAK [id number]) Sensation Evaluation Gross Sensation Sensation Description Numbness Tingling PT-OP-J Posture/Palpation/Skin Start: 12/18/18 08:14 Freq: Status: Active Protocol: Document 12/18/18 09:49 SAK (Rec: 12/19/18 13:07 SAK [id number]) Posture Evaluation Position Sitting Head/C-Spine Posture Extended Forward Head T-Spine Posture Increased Kyphosis Comments Posture Comments wearing rigid cervical collar. Palpation Assessment Location cervical spine Palpation Findings Soft Tissue Tightness Muscle Guarding Tenderness Palpation Details right cervical spine and upper traps Skin Assessment Incisional Assessment Incision Appearance/Comments healing well, no signs or symptoms of infection PT-OP-K Range of Motion Start: 12/18/18 08:14 Freq: Status: Active Protocol: Document 02/19/19 11:14 SAK (Rec: 02/19/19 13:15 SAK [id number]) Cervical Spine Range of Motion Cervical Spine Active Testing Position Sitting Flexion 45 Extension 10 Rotation Left 25 Rotation Right 30 Lateral Flexion Left 10 Lateral Flexion Right 10 ROM Limitations Soft Tissue Tightness Pain PT-OP-M Strength Start: 12/18/18 08:14 Freq: Status: Active Protocol: Document 02/19/19 11:14 SAK (Rec: 02/19/19 13:15 SAK [id number]) Scapula Strength Scapula Manual Muscle Testing Right Elevation (C4) 4 Good Adduction 4- Good- Abduction 3+ Fair+ Depression 3+ Fair+ Left Elevation (C4) 4 Good Adduction 4 Good Abduction 4 Good Depression 4 Good Elbow/Forearm Strength Elbow and Forearm Manual Muscle Testing Right Flexion (C6) 4- Good- Extension (C7) 4- Good- Left Flexion (C6) 4 Good Extension (C7) 4 Good PT-OP-T Assessment and Plan Start: 12/18/18 08:14 Freq: Status: Active Protocol: Document 04/23/19 09:55 DLM (Rec: 04/23/19 09:57 DLM [id number]) Physical Therapy Assessment Goals Four Impairment poor scapular strength and stabilization right, dec coleen UE strength Short Term Goal (STG) Instruct in HEP for purposes of strengthening and scapular stabilization 02/19/19: ongoing stabilization STG Duration 4 wks Hopper Attendant Goal (LTG) Improve UE strength to at least 4+/5 to allow full functional use of UE's LTG Duration 3 months Three Hopper Attendant Goal (LTG) Improve soft tissue mobility in cervical spine to WNL 02/19/19: good goal progress LTG Duration 3 months Two Impairment decreased strength cervical spine Correction Goal (LTG) Improve cervical spine strength to WNL to improve patient's function 02/19/19: goal progress LTG Duration 3 months One Impairment limited cervical ROM Correction Goal (LTG) Cervical spine ROM WNL to allow patient to turn adequately for driving and ADL 's 02/19/19: awaiting removal of cervical collar per physician order LTG Duration 3 months Progress Towards Goals Progress Comments unable to determine status of goals due to lack of attendance Assessment Summary Assessment Pt is no longer attending physical therapy. He has no showed or cancelled his last 3 appointments. He has only attended therapy once on since 03/05/19. Physical Therapy Plan Discharge Physical Therapy Discharge Reasons No Longer Attending PT Discharge Comments Phoned pt and left message informing him of his discharge
== END 2019-05-08 11:32 | disposition home or self-care (01) ==
LOC: PHYS 14:30
PROVIDERS: PCP Family Medicine; Visit Provider Orthopaedic Surgery
DX: M54.12 Radiculopathy, cervical region (principal); Z98.1 Arthrodesis status
CPT/HCPCS: 97010; 97014; 97110; 97140; 97162; 97535; G0283

== ENCOUNTER → 2019-04-03 16:38 | Outpatient (CLI) | payer MEDICARE, OTHER, SELFPAY ==
[2018-04-29 17:17] VITALS: BMI 25.2
[2019-04-03 18:12] LABS: Cholesterol 120 mg/dL (140-199); HDL Cholesterol 54 mg/dL (40-60); LDL Cholesterol Calculated 50 mg/dL (<100); Triglycerides 82 mg/dL (35-150)
== END ==
PROVIDERS: PCP Family Medicine; Visit Provider Family Medicine
DX: E78.5 Hyperlipidemia, unspecified (principal)
CPT/HCPCS: 36415; 80061

== ENCOUNTER → 2019-05-08 13:00 | Outpatient (CLI) | payer MEDICARE, OTHER, SELFPAY ==
[2018-04-29 17:17] VITALS: BMI 25.2
--- NOTE | 2019-05-08 | DI.RAD.S_ITS ---
PROCEDURE: FL BARIUM SWALLOW W SPEECH INDICATIONS: Other dysphagia TECHNIQUE: Examination was conducted in conjunction with speech pathology per standard protocol. In the lateral projection, filming was performed of the patient swallowing. AP projection filming may also be performed with patient swallowing. COMPARISON: None. FINDINGS: Function: The oral preparatory phase appears normal, with proper containment. The subsequent oral propulsive phase, pharyngeal phase, and esophageal phase of swallowing also appear normal with all proffered substances. No laryngotracheal penetration or aspiration. No pathologic vallecular pooling. Morphology: No cricopharyngeal bar is identified. No cervical esophageal webs. No Zenker's diverticulum. No strictures. IMPRESSION: Normal examination. Please also refer to the dedicated speech therapy report which will be independently generated. Dictated by: Uzair Parra M.D. on 05/08/2019 at 14:09 Approved by: Uzair Parra M.D. on 05/08/2019 at 14:09
--- NOTE | 2019-05-08 15:32 | ST.SWALLOW ---
Care Team Visit Care Team Role Provider Type Johanny Cuadra DO Primary Care Provider Physician Specialty: Family Practice Address: [address] [place] [address], [phone] Email: [email or web address] Hector Marquez MD Attending Provider Non-Staff Specialty: Orthopedic Surgery Address: [address] [place] [address], [phone] Email: Modified Barium Swallow Study FILM MASKER Modified Barium Swallow Study Start: 05/08/19 14:09 Freq: Status: Active Protocol: Document 05/08/19 14:09 TLC (Rec: 05/08/19 14:27 TLC [id number]) Modified Barium Swallow Study Total Time Visit Start Time 13:30 Visit Stop Time 13:50 Total Visit Minutes [address] 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 He complains of difficulty swallowing both with liquids and solids and two episodes of choking on solids requiring the Heimleich maneuver. He also reports dysphonia and aphonia after some period of talking. He is currently receiving Physical Therapy for neck pain which radiates down his arms with pain and numbness to the thumbs bilaterally. 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 Lino from on 01/30/18 . Subjective Observations Mr. Harper arrived on time and was cooperative during the test. Patient Positioning Position View Lateral Imaging Lateral View Textures Administered Trials Presented Thin Liquid via Spoon Thin Liquid via Cup Rockwall Liquid via Spoon Honey Liquid via Spoon Pudding Thick Liquid via Spoon Regular Textures Oral Phase Source: MBSIMP (TM) (C) Bolus Specific Scoring Grid Lip Closure No Impairment (WNL) Tongue Control During Bolus Hold No Impairment (WNL) Bolus Prep/Mastication No Impairment (WNL) Bolus Transport/Lingual Motion No Impairment (WNL) Oral Residue Minimal Impairment Additional Oral Phase Observations No labial escape of bolus observed during the test. Tongue control during bolus hold and bolus preparation and mastication were within normal limits. Tongue motions during bolus transport was brisk. A collection of thickened liquids and regular textures resided on the tongue after swallow. Initiation of pharyngeal swallow was mildly impaired with first brisk movement once bolus head reached valleculae. Pharyngeal Phase Source: MBSIMP (TM) (C) Bolus Specific Scoring Grid Soft Palate Elevation No Impairment (WNL) Laryngeal Elevation Mild Impairment Anterior Hyoid Movement No Impairment (WNL) Epiglottic Range of Motion No Impairment (WNL) Vallecular Residue Yes Upper Esophageal Sphincter Opening Mild Impairment Residue in the Pyriform Sinuses Yes Additional Pharyngeal Phase Observations No impairment in soft palate elevation. Early laryngeal elevation was incomplete; however, laryngeal vestibular closure was complete at the height of the swallow. No penetration or aspiration observed during the study. Anterior hyoid excursion and epiglottic movement were complete. Pharyngeal stripping wave was diminished and pharyngoesophageal segment duration of opening was partial in duration resulting in collection of pyriform residue with trial of cookie. Observed trace vallecular residue following consecutive cup sips increasing to a collection of vallecular residue with coating on posterior laryngeal surface of epiglottis as study progressed. No impairments in tongue base retraction observed. A/P View Esophageal Observations Esophageal Function Not observed in A-P position however, no esophageal retention or backflow observed in lateral imaging. Clinical Impressions Findings Mild pharyngeal dysphagia characterized by oral and pharyngeal residue. No penetration or aspiration observed during the study. No significant impairments which explain patient's history of choking. Recommend: continue current diet, small bites/sips and extra swallows to clear residue. Recommend ENT referral given presence of dysphonia. Rehabilitation Potential Excellent Recommendations Diet Liquids Order Thin Diet Order Regular Medication Recommendation As Tolerated Aspiration Precautions Recommended Precautions Alternate Liquids/Solids Small Bites/Sips Double Swallow Treatment Plan Therapy Recommendations Compensatory Strategy Education Additional Therapy Recommendations F/u 1-2x in the outpatient clinic for education/training in strategies Recommended Referrals ENT Consult
== END ==
PROVIDERS: PCP Family Medicine; Visit Provider Orthopaedic Surgery
DX: R13.19 Other dysphagia (principal)
CPT/HCPCS: 74230; 92611

== ENCOUNTER 2019-06-18 12:11 | Outpatient (RCR) | payer MEDICARE, OTHER, SELFPAY ==
[2018-04-29 17:17] VITALS: BMI 25.2
--- NOTE | 2019-06-18 12:30 | ST.OPTN ---
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 Treatment Note FUEL SYSTEM MAINTENANCE SUPERVISOR Treatment Note Start: 06/18/19 15:43 Freq: Status: Active Protocol: Document 06/18/19 15:44 [facility] (Rec: 06/18/19 15:52 [facility] [id number]) Speech Pathology Treatment Note Session Time Visit Start Time 12:30 Visit Stop Time 13:05 Total Visit Minutes 35 Visit Information Visit Number 1 Plan of Care Dates 06/18/19-06/19/19 Insurance Information Medicare Setting Treatment Setting Acute Care Visit Type Note Type Treatment Note Next Note Type Next Note Type Discharge Summary General Information General Information Hector has a hx of dysphagia s/p ACDF surgery at the beginning of the year. He had a Modified Barium Swallow Study on 05/08/19 which revealed mild pharyngeal dysphagia characterized by oral and pharyngeal residue. Curently, Hector reports he has occasional choking with water and implements the following strategies: cuts food into small bites, chews each bite of food well before swallowing. Subjective Identification Type Name Observations/Patient Presentation Hector arrived on time. He was cooperative during the session. Chief Complaint(s) Swallowing Objective Treatment Activities Provided verbal education on general swallowing anatomy and results of MBSS including presence of oral and pharyngeal residue. Discussed recommendations for small bites/sips and slow rate with double swallow as compensatory strategies to be used during meals for patient safety. Discussed potential for exercises; however, I do feel his issues are more related to structural changes related to his ACDF and the focus of treatment is compensatory (vs. rehabilitative). We briefly discussed his chronic throat clearing and vocal changes and for this I recommended he see an ENT for evaluation through laryngoscopy. Assessment Impairments Identified Dysphagia Vocal Quality Progress Towards Goals Good Progress Assessment of Improvement Hector is currently implementing compensatory strategies stated above. He verbalized understanding of recommendations today. No further treatment necessary at this time. Discharge from [facility] Amount of Therapy Recommended No Further Therapy Frequency of Treatment No Further Therapy Therapeutic Contents Client Education Provided Patient/Caregiver Instruction Home Exercise Program Questions/Concerns Therapy Recommendations Discharge from Speech Therapy Suggested Referral ENT
== END 2019-06-24 15:02 | disposition home or self-care (01) ==
LOC: SP 12:11
PROVIDERS: PCP Family Medicine; Visit Provider Orthopaedic Surgery
DX: R13.19 Other dysphagia (principal)
CPT/HCPCS: 92526

== ENCOUNTER → 2019-06-23 06:42 | Outpatient (CLI) | payer MEDICARE, OTHER, SELFPAY ==
[2018-04-29 17:17] VITALS: BMI 25.2
[2019-06-23 07:47] LABS: Appearance Urine UA CLEAR; Bilirubin Urine UA NEGATIVE (NEGATIVE); Color Urine UA YELLOW; Glucose Urine UA NEGATIVE (Negative); Ketones Urine UA NEGATIVE (NEGATIVE); Leukocyte Esterase Urine UA NEGATIVE (NEGATIVE); Nitrite Urine UA NEGATIVE (Negative); Occult Blood Urine UA NEGATIVE (Negative); Protein Urine UA 2+ (Negative); Urobilinogen Urine UA 0.2 E.U./dL (0.2); pH Urine UA 5.5 (4.5-8.0)
[2019-06-23 07:59] LABS: Alanine Aminotransferase 27 IU/L (21-72); Albumin 4.6 g/dL (3.5-5.0); Albumin Globulin Ratio 1.6 (1.0-2.8); Alkaline Phosphatase 83 U/L (38-126); Aspartate Aminotransferase 37 IU/L (17-59); BUN Creatinine Ratio 12.9 (6-22); Bilirubin Total 1.1 mg/dL (0.2-1.3); Blood Urea Nitrogen 18 mg/dL (9-20); Calcium 9.8 mg/dL (8.4-10.2); Carbon Dioxide 29 mmol/L (22-32); Chloride 99 mmol/L (98-107); Cholesterol 115 mg/dL (140-199); Estimated Glomerular Filt Rate 50.7 mL/min (>60); Globulin 2.9 g/dL (1.7-4.1); Glucose 145 mg/dL (80-110); HDL Cholesterol 48 mg/dL (40-60); HEMOLYSIS < 15 (0-50); LDL Cholesterol Calculated 40 mg/dL (<100); Potassium 4.5 mmol/L (3.4-5.1); Sodium 139 mmol/L (137-145); Total Protein 7.5 g/dL (6.3-8.2); Triglycerides 134 mg/dL (35-150)
[2019-06-23 08:00] LABS: Hemoglobin A1C% w Est Avg Glu 5.7 % (4.0-6.0)
[2019-06-23 08:46] LABS: Thyroid Stimulating Hormone 2.81 uIU/mL (0.47-4.68)
[2019-06-23 15:01] LABS: Prostate Specific Antigen Scrn 1.39 ng/mL (0.1-4.0)
== END ==
PROVIDERS: PCP Family Medicine; Visit Provider Family Medicine
DX: E11.9 Type 2 diabetes mellitus without complications (principal); I10 Essential (primary) hypertension; E78.5 Hyperlipidemia, unspecified; Z12.5 Encounter for screening for malignant neoplasm of prostate
CPT/HCPCS: 36415; 80053; 80061; 81003; 83036; 84443; G0103

== ENCOUNTER → 2019-07-09 13:43 | Outpatient (CLI) | payer MEDICARE, OTHER, SELFPAY ==
[2018-04-29 17:17] VITALS: BMI 25.2
--- NOTE | 2019-07-09 | DI.CT.S_ITS ---
PROCEDURE: CT LUMBAR SPINE WO CON INDICATIONS: LOW BACK PAIN TECHNIQUE: Noncontrast 3 mm thick sections acquired from the T12 level to the sacrum. Sagittal and coronal reformats were constructed. For radiation dose reduction, the following was used: automated exposure control. COMPARISON: [facility], CT chest, abdomen and pelvis 02/02/2018. CT, L-SPINE WITHOUT CONTRAST, 02/18/2015, 9:05. FINDINGS: Image quality: Excellent. Bones: Minimal scoliosis and loss of lumbar spine lordosis. Stable appearance of the lumbar spine fixation hardware. Pedicle screws at L3, L4, L5. Intervertebral body spacer at L3-L4 and L4-L5 graft. There is moderate to severe or lumbar spine degenerative change. No acute vertebral body compression fractures. No suspicious lytic or blastic bony lesions. Central spinal caliber is of normal overall caliber. Bone island in the left iliac wing. T12-L1: No bony encroachment of the canal or significant neuroforaminal narrowing. L1-L2: No bony encroachment of the canal or significant neuroforaminal narrowing. L2-L3: Mild broad-based disc bulge. No significant bony encroachment of the canal or neuroforaminal narrowing. Severe intervertebral body space height loss. L3-L4: Intervertebral body spacer at this level. No significant bony encroachment of the canal. Mild bilateral neural foraminal narrowing. L4-L5: Mild right subarticular calcification. Intervertebral body graft at this level. No significant bony encroachment of the canal. Mild bilateral neural foraminal narrowing. L5-S1: Mild broad-based disc bulge. No significant bony encroachment of the canal. Mild bilateral neural foraminal narrowing. Severe intervertebral body space height loss. Soft tissues: No retroperitoneal masses or hematomas. Visualized aorta is normal in caliber. Moderate calcified atherosclerotic plaque. IMPRESSION: 1. No acute fracture or dislocation. Lumbar spine hardware is intact. 2. Moderate to severe or lumbar spine degenerative change which is slightly progressed compared to January 2018. Dictated by: Sohail Roy M.D. on 07/09/2019 at 16:55 Approved by: Sohail Roy M.D. on 07/09/2019 at 17:11
== END ==
PROVIDERS: PCP Family Medicine; Visit Provider Orthopaedic Surgery Orthopaedic Surgery of the Spine
DX: M54.5 Low back pain (principal)
CPT/HCPCS: 72131

== ENCOUNTER 2019-08-05 08:15 | Outpatient (RCR) | payer MEDICARE, OTHER, SELFPAY ==
[2018-04-29 17:17] VITALS: BMI 25.2
--- NOTE | 2019-05-28 08:14 | PT.OIE ---
Current Diagnoses Radiculopathy, cervical region (06/02/19) Low back pain (06/02/19) Past Medical History (Last Reviewed 04/03/19 @ 16:03 by Johanny Cuadra DO) Anxiety (Chronic Unknown) Aortic stenosis (Chronic) BPH (benign prostatic hyperplasia) (Chronic Unknown) Chronic pain syndrome (Chronic Unknown) Chronic renal insufficiency (Chronic Unknown) Depression (Chronic Unknown) Diabetes (Chronic Unknown) GERD (gastroesophageal reflux disease) (Chronic Unknown) Hyperlipemia (Chronic Unknown) Hypertension (Chronic Unknown) Low back pain (Chronic Unknown) Peripheral neuropathy (Chronic Unknown) Rheumatoid arthritis (Chronic Unknown) Coronary artery disease (Suspected Unknown) History of ETOH abuse (Resolved Unknown) Past Surgical History (Last Reviewed 04/03/19 @ 16:03 by Johanny Cuadra DO) S/P cervical spinal fusion (Acute) History of back surgery (Resolved ~2012) Status post hernia repair Status post knee surgery Provider Visit Care Team Role Provider Type Johanny Cuadra DO Attending Provider Physician Primary Care Provider Specialty: [facility] Address: [address] [place] [address] Email: [email or web address] Physical Therapy Initial Evaluation PT-OP-A Visit Information Start: 05/28/19 08:00 Freq: Status: Active Protocol: Document 05/28/19 08:14 [facility] (Rec: 05/28/19 09:02 [facility] [id number]) Out-Patient Physical Therapy Visit Information Visit Information Visit Type Initial Evaluation Visit Start Time 08:20 Visit Stop Time 09:10 Total Visit Minutes 50 Visit Number 1 Number of RETAIL WIRELESS ASSOCIATE Visits 0 Precautions Precautions cervical fusion PT-OP-B Current Condition Start: 05/28/19 08:00 Freq: Status: Active Protocol: Document 05/28/19 08:14 [facility] (Rec: 05/28/19 09:02 [facility] [id number]) Current Condition History of Current Condition Onset Date 2 months Current Complaints increase in neck and right shoulder pain and weakness, LBP History of Current Condition Discharged from physical therapy following surgical fusion in March 2019 due to multiple missed appointments per PT attendance policy while this PT gone on extended vacation. Reports severe increase in pain in right scapular region right as well as an increase in his previous low back pain since therapy discontinued. Seeing Dr. Alma soon to address LBP; states he can't even bend over or take walks especially uphill. Reports increased pain in neck and decreased function of his right UE since last seen in PT. Prior Treatments and Tests cervical spine fusion Future Testing and Treatments Planned Is scheduled to see Dr. Marquez this week regarding LBP.A Treatment Goals Patient/Caregiver Goals Decrease pain, regain functional use of right UE Prior Functional Status Baseline Function- ADL's Independent Baseline Function- Mobility Independent Baseline Function- Gait Independent without device Baseline Function- Work/School disabled Baseline Function- Recreation/Hobbies walking his dog Current Functional Impairments (Reported) Functional Limitations- ADL's independent but painful Functional Limitations- Mobility/Gait independent but limited to short distances due to pain Functional Limitations- Work/School disabled Functional Limitations- Recreation/ has been unable to take his Hobbies dog for walks Personal Factors Other Personal Factors That May Effect cognitive impairment including Therapy/Recovery decreased short term memory since recent c/s fusion surgery PT-OP-C Subjective Start: 05/28/19 08:00 Freq: Status: Active Protocol: Document 05/28/19 08:14 [facility] (Rec: 06/01/19 16:52 [facility] [id number]) Patient Questionnaires Neck Disability Index NDI Score 54 Oswestry Low Back Index Oswestry Score 68 Quick Dash- Upper Extremity Quick Dash UE Score 95 OP-PT Pain Assessment Pain Assessment Grid Paper Pain Assessment Grid Completed Yes Location lumbar spine Intensity 7 right scapula Intensity 7 cervical spine Intensity 2 Pain Behaviors Pain Behaviors Facial Grimacing Guarding Restlessness Wincing PT-OP-K Range of Motion Start: 05/28/19 08:00 Freq: Status: Active Protocol: Document 05/28/19 08:14 [facility] (Rec: 06/01/19 16:52 [facility] [id number]) Cervical Spine Range of Motion Cervical Spine Active Flexion 47 Extension 5 Rotation Left 42 Rotation Right 37 Lateral Flexion Left 12 Lateral Flexion Right 7 ROM Limitations Soft Tissue Tightness Bony Restriction Pain Lumbar Spine Range of Motion Lumbar Spine Active ROM Limitations Soft Tissue Tightness Pain Comments moderate decrease all motions with c/o pain Shoulder Goniometric Range of Motion Shoulder Right Active Shoulder ROM WFL No Testing Position Sitting Flexion 142 Extension 20 Abduction 130 External Rotation at 45 degrees 55 Abduction Internal Rotation Behind Back (text) T10 Left Active Shoulder ROM WFL Yes Internal Rotation Behind Back (text) T7 Shoulder ROM Limitations Comments slow, uncoordinated movement of right shoulder with winging of scapula noted with elevation Elbow/Forearm Range of Motion Elbow/Forearm coleen Elbow/Forearm ROM WFL Yes PT-OP-Q Treatments Start: 05/28/19 08:00 Freq: Status: Active Protocol: Document 05/28/19 08:14 [facility] (Rec: 06/01/19 16:52 [facility] [id number]) Manual Therapy Treatment Taping 1 Body Location between scapula for postural correction, lower trap facil Type of Tape Kinesio Tape Comments I strip PT-OP-R Modalities Start: 05/28/19 08:00 Freq: Status: Active Protocol: Document 05/28/19 08:14 [facility] (Rec: 06/01/19 16:52 [facility] [id number]) Hot Pack/Cold Pack Treatment cervical spine Location ice pack Patient Position Hooklying Comments coleen upper traps and periscapular area. PT-OP-T Assessment and Plan Start: 05/28/19 08:00 Freq: Status: Active Protocol: Document 05/28/19 08:14 [facility] (Rec: 06/01/19 16:52 [facility] [id number]) Physical Therapy Assessment Rehab Potential Rehabilitation Potential Good Evaluation Complexity Number of Personal Factors/Comorbidities 3 or More Number of Body Systems Impaired 3 Clinical Presentation at Evaluation Evolving Impairments Impairments Activity Tolerance Pain Posture Strength Goals Five Impairment QuickDash UE disability index score 95% Short Term Goal (STG) Decrease Quickdash UE disability index score to no greater than 60% STG Duration 06/28/19 Eligibility Manager Goal (LTG) Decrease Quickdash UE disability index score to no greater than 30% including able to reach overhead and behind his back for ADL's and usual daily activities without difficulty LTG Duration 08/28/19 Four Impairment poor scapular strength and stabilization right, dec coleen UE strength Short Term Goal (STG) Instruct in HEP for purposes of strengthening and scapular stabilization STG Duration 06/28/19 Eligibility Manager Goal (LTG) Improve UE strength to at least 4+/5 to allow full functional use of UE's LTG Duration 08/28/19 Three Impairment pain neck, low back, right scapular region 7/10 Short Term Goal (STG) Decrease pain to no greater than 4/10 STG Duration 06/28/19 Eligibility Manager Goal (LTG) Decrease pain LTG Duration 08/28/19 Two Impairment activity tolerance: Neck disability index score 54% Short Term Goal (STG) Decrease NDI to no greater than 40% STG Duration 06/28/19 Eligibility Manager Goal (LTG) Decrease NDI to no greater than 20% with patient able to resume all usual activities LTG Duration 08/28/19 One Impairment activity tolerance: Oswestry disability index score 68% Short Term Goal (STG) Decrease DEBORA to no greater than 50% STG Duration 06/28/19 Eligibility Manager Goal (LTG) Decrease DEBORA to no greater than 20% with patient able to resume all usual activities including going for walks and hikes with dog LTG Duration 08/28/19 Assessment Summary Assessment Patient presents with worsening symptoms of neck pain and shoulder girdle pain as well as LBP with high scores on 3 disability index scores. Is tolerating minimal activity due to the pain as well as signs and symptoms of nerve damage causing right UE weakness and dysfunction including discoordinated movements and poor scapular control. Would benefit from both land and aquatic-based PT to address his impairments and help him return to an active lifestyle. Physical Therapy Plan Frequency and Duration Frequency of Treatment 2x/Week Duration of Treatment 2 months Plan of Care Start Date 05/28/19 Plan of Care End Date 07/29/19 Therapeutic Interventions Therapeutic Interventions Aquatic Therapy Home Exercise Program Manual Therapy Neuromuscular Re-education Patient/Caregiver Education Self-Care/Home Management Soft Tissue Mobilization Taping Therapeutic Activities Therapeutic Exercises Modalities Cold Pack/Ice Massage Hot Packs Next Visit Focus/Plan Next Note Type Treatment Note Next Visit Plan Therapeutic exercises for neuromuscular control, postural correction, strengthening, and 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 Modalities and manual therapy as needed for pain.
--- NOTE | 2019-05-28 08:15 | PT.OPPOC ---
Current Diagnoses Radiculopathy, cervical region (06/02/19) Low back pain (06/02/19) Provider Visit Care Team Role Provider Type Johanny Cuadra DO Attending Provider Physician Primary Care Provider Specialty: Family Practice Address: [address] [place] [address], [id number] Email: [email or web address] Plan Of Care PT-OP-T Assessment and Plan Start: 05/28/19 08:00 Freq: Status: Active Protocol: Document 05/28/19 08:14 SAK (Rec: 06/01/19 16:52 SAK [id number]) Physical Therapy Assessment Rehab Potential Rehabilitation Potential Good Evaluation Complexity Number of Personal Factors/Comorbidities 3 or More Number of Body Systems Impaired 3 Clinical Presentation at Evaluation Evolving Impairments Impairments Activity Tolerance Pain Posture Strength Goals Five Impairment QuickDash UE disability index score 95% Short Term Goal (STG) Decrease Quickdash UE disability index score to no greater than 60% STG Duration 06/28/19 Penitentiary Goal (LTG) Decrease Quickdash UE disability index score to no greater than 30% including able to reach overhead and behind his back for ADL's and usual daily activities without difficulty LTG Duration 08/28/19 Four Impairment poor scapular strength and stabilization right, dec coleen UE strength Short Term Goal (STG) Instruct in HEP for purposes of strengthening and scapular stabilization STG Duration 06/28/19 Penitentiary Goal (LTG) Improve UE strength to at least 4+/5 to allow full functional use of UE's LTG Duration 08/28/19 Three Impairment pain neck, low back, right scapular region 7/10 Short Term Goal (STG) Decrease pain to no greater than 4/10 STG Duration 06/28/19 Forest Fire Specialist Supervisor Goal (LTG) Decrease pain LTG Duration 08/28/19 Two Impairment activity tolerance: Neck disability index score 54% Short Term Goal (STG) Decrease NDI to no greater than 40% STG Duration 06/28/19 Forest Fire Specialist Supervisor Goal (LTG) Decrease NDI to no greater than 20% with patient able to resume all usual activities LTG Duration 08/28/19 One Impairment activity tolerance: Oswestry disability index score 68% Short Term Goal (STG) Decrease DEBORA to no greater than 50% STG Duration 06/28/19 Forest Fire Specialist Supervisor Goal (LTG) Decrease DEBORA to no greater than 20% with patient able to resume all usual activities including going for walks and hikes with dog LTG Duration 08/28/19 Assessment Summary Assessment Patient presents with worsening symptoms of neck pain and shoulder girdle pain as well as LBP with high scores on 3 disability index scores. Is tolerating minimal activity due to the pain as well as signs and symptoms of nerve damage causing right UE weakness and dysfunction including discoordinated movements and poor scapular control. Would benefit from both land and aquatic-based PT to address his impairments and help him return to an active lifestyle. Physical Therapy Plan Frequency and Duration Frequency of Treatment 2x/Week Duration of Treatment 2 months Plan of Care Start Date 05/28/19 Plan of Care End Date 07/29/19 Therapeutic Interventions Therapeutic Interventions Aquatic Therapy Home Exercise Program Manual Therapy Neuromuscular Re-education Patient/Caregiver Education Self-Care/Home Management Soft Tissue Mobilization Taping Therapeutic Activities Therapeutic Exercises Modalities Cold Pack/Ice Massage Hot Packs Next Visit Focus/Plan Next Note Type Treatment Note Next Visit Plan Therapeutic exercises for neuromuscular control, postural correction, strengthening, and 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 Modalities and manual therapy as needed for pain. Plan of Care Dates Plan of Care Start Date 05/28/19 Plan of Care End Date 07/29/19 Please Sign and Return: I have reviewed this Plan of Care and certify that the skilled therapy services above are required to meet the patient?s needs. Physician Signature Date Printed Name and Credentials Clinical Instructor Signature Printed Name and Credentials
--- NOTE | 2019-06-04 08:14 | PT.OTN ---
Current Diagnoses Radiculopathy, cervical region (06/02/19) Low back pain (06/02/19) Physical Therapy Treatment Note PT-OP-A Visit Information Start: 05/28/19 08:00 Freq: Status: Active Protocol: Document 06/02/19 09:45 SAK (Rec: 06/04/19 08:14 SAK [id number]) Out-Patient Physical Therapy Visit Information Visit Information Visit Type Treatment Note Visit Start Time 09:45 Visit Stop Time 10:40 Total Visit Minutes 55 Visit Number 2 Number of DENT REMOVER Visits 0 Precautions Precautions cervical fusion PT-OP-B Current Condition Start: 05/28/19 08:00 Freq: Status: Active Protocol: Document 05/28/19 08:14 SAK (Rec: 05/28/19 09:02 SAK [id number]) Current Condition History of Current Condition Onset Date 2 months Current Complaints increase in neck and right shoulder pain and weakness, LBP History of Current Condition Discharged from physical therapy following surgical fusion in March 2019 due to multiple missed appointments per PT attendance policy while this PT gone on extended vacation. Reports severe increase in pain in right scapular region right as well as an increase in his previous low back pain since therapy discontinued. Seeing Dr. Marquez soon to address LBP; states he can't even bend over or take walks especially uphill. Reports increased pain in neck and decreased function of his right UE since last seen in PT. Prior Treatments and Tests cervical spine fusion Future Testing and Treatments Planned Is scheduled to see Dr. Marquez this week regarding LBP.A Treatment Goals Patient/Caregiver Goals Decrease pain, regain functional use of right UE Prior Functional Status Baseline Function- ADL's Independent Baseline Function- Mobility Independent Baseline Function- Gait Independent without device Baseline Function- Work/School disabled Baseline Function- Recreation/Hobbies walking his dog Current Functional Impairments (Reported) Functional Limitations- ADL's independent but painful Functional Limitations- Mobility/Gait independent but limited to short distances due to pain Functional Limitations- Work/School disabled Functional Limitations- Recreation/ has been unable to take his Hobbies dog for walks Personal Factors Other Personal Factors That May Effect cognitive impairment including Therapy/Recovery decreased short term memory since recent c/s fusion surgery PT-OP-C Subjective Start: 05/28/19 08:00 Freq: Status: Active Protocol: Document 06/02/19 09:45 SAK (Rec: 06/04/19 08:14 [facility] [id number]) OP-PT Subjective Patient Comments Patient Comments Tape helpful, went to pool on own 1x. PT-OP-K Range of Motion Start: 05/28/19 08:00 Freq: Status: Active Protocol: Document 05/28/19 08:14 SAK (Rec: 06/01/19 16:52 SAK [id number]) Cervical Spine Range of Motion Cervical Spine Active Flexion 47 Extension 5 Rotation Left 42 Rotation Right 37 Lateral Flexion Left 12 Lateral Flexion Right 7 ROM Limitations Soft Tissue Tightness Bony Restriction Pain Lumbar Spine Range of Motion Lumbar Spine Active ROM Limitations Soft Tissue Tightness Pain Comments moderate decrease all motions with c/o pain Shoulder Goniometric Range of Motion Shoulder Right Active Shoulder ROM WFL No Testing Position Sitting Flexion 142 Extension 20 Abduction 130 External Rotation at 45 degrees 55 Abduction Internal Rotation Behind Back (text) T10 Left Active Shoulder ROM WFL Yes Internal Rotation Behind Back (text) T7 Shoulder ROM Limitations Comments slow, uncoordinated movement of right shoulder with winging of scapula noted with elevation Elbow/Forearm Range of Motion Elbow/Forearm ocleen Elbow/Forearm ROM WFL Yes PT-OP-Q Treatments Start: 05/28/19 08:00 Freq: Status: Active Protocol: Document 06/02/19 09:45 [facility] (Rec: 06/04/19 08:14 [facility] [id number]) Therapeutic Exercises Supine Exercises isometric hold Equipment Used holding 45 cm ball Reps/Minutes 2 min Comments set scapula shoulder hor ab Reps/Minutes 10x Comments end-range stretch after 10 shoulder flex Reps/Minutes 10x Comments end range stretch after 10 serratus punch Reps/Minutes 2x10 sh ER/IR Reps/Minutes 10x Sitting Exercises scapular clocks Reps/Minutes 5 min Comments verbal and manual cues Standing Exercises Sh ER Resistance L1 TB Reps/Minutes 10x shld ext Reps/Minutes 10x rows, shoulder ext Resistance L1 TB Reps/Minutes 10x Manual Therapy Treatment Soft Tissue Mobilization manual pec stretch] Mobilization Type Sustained Pressure Intensity/Depth Moderate Body Position Hooklying upper traps, rhomboids, levator scap Mobilization Type Myofascial Release Rolling Sustained Pressure Trigger Point Release Intensity/Depth gentle Body Position sidelying, supine Taping 1 Body Location between scapula for postural correction, lower trap facil Type of Tape Kinesio Tape Comments I strip Self-Care/Home Management Treatment Education Patient Education Home Exercise Program Pain Management Posture PT-OP-R Modalities Start: 05/28/19 08:00 Freq: Status: Active Protocol: Document 06/02/19 09:45 [facility] (Rec: 06/04/19 08:14 [facility] [id number]) Hot Pack/Cold Pack Treatment cervical spine Location ice pack Patient Position Hooklying Comments coleen upper traps and periscapular area. PT-OP-T Assessment and Plan Start: 05/28/19 08:00 Freq: Status: Active Protocol: Document 06/02/19 09:45 [facility] (Rec: 06/04/19 08:14 [facility] [id number]) Physical Therapy Assessment Goals Five Impairment QuickDash UE disability index score 95% Short Term Goal (STG) Decrease Quickdash UE disability index score to no greater than 60% STG Duration 06/28/19 Intermediate Goal (LTG) Decrease Quickdash UE disability index score to no greater than 30% including able to reach overhead and behind his back for ADL's and usual daily activities without difficulty LTG Duration 08/28/19 Four Impairment poor scapular strength and stabilization right, dec coleen UE strength Short Term Goal (STG) Instruct in HEP for purposes of strengthening and scapular stabilization STG Duration 06/28/19 Scrap Breaker Goal (LTG) Improve UE strength to at least 4+/5 to allow full functional use of UE's LTG Duration 08/28/19 Three Impairment pain neck, low back, right scapular region 710 Short Term Goal (STG) Decrease pain to no greater than 4/10 STG Duration 06/28/19 Scrap Breaker Goal (LTG) Decrease pain LTG Duration 08/28/19 Two Impairment activity tolerance: Neck disability index score 54% Short Term Goal (STG) Decrease NDI to no greater than 40% STG Duration 06/28/19 Scrap Breaker Goal (LTG) Decrease NDI to no greater than 20% with patient able to resume all usual activities LTG Duration 08/28/19 One Impairment activity tolerance: Oswestry disability index score 68% Short Term Goal (STG) Decrease DEBORA to no greater than 50% STG Duration 06/28/19 Intermediate Goal (LTG) Decrease DEBORA to no greater than 20% with patient able to resume all usual activities including going for walks and hikes with dog LTG Duration 08/28/19 Assessment Summary Assessment requires moderate cues for scapular movement and stabilization with all ther ex . Decreased pain with kinesiotape, manual treatment, ice. Physical Therapy Plan Frequency and Duration Frequency of Treatment 2x/Week Duration of Treatment 2 months Plan of Care Start Date 05/28/19 Plan of Care End Date 07/29/19 Therapeutic Interventions Therapeutic Interventions Aquatic Therapy Home Exercise Program Manual Therapy Neuromuscular Re-education Patient/Caregiver Education Self-Care/Home Management Soft Tissue Mobilization Taping Therapeutic Activities Therapeutic Exercises Modalities Cold Pack/Ice Massage Hot Packs Next Visit Focus/Plan Next Note Type Treatment Note Next Visit Plan Continue gentle ther ex progression, manual therapy and modalities as needed for pain.
--- NOTE | 2019-06-04 09:53 | PT.OTN ---
Current Diagnoses Radiculopathy, cervical region (06/04/19) Low back pain (06/04/19) Physical Therapy Treatment Note PT-OP-A Visit Information Start: 05/28/19 08:00 Freq: Status: Active Protocol: Document 06/04/19 09:01 SAK (Rec: 06/04/19 09:51 [facility] [id number]) Out-Patient Physical Therapy Visit Information Visit Information Visit Type Treatment Note Visit Start Time 09:45 Visit Stop Time 10:40 Total Visit Minutes 55 Visit Number 3 Number of WRAPPER CASER Visits 0 Precautions Precautions cervical fusion PT-OP-B Current Condition Start: 05/28/19 08:00 Freq: Status: Active Protocol: Document 05/28/19 08:14 SAK (Rec: 05/28/19 09:02 SAK [id number]) Current Condition History of Current Condition Onset Date 2 months Current Complaints increase in neck and right shoulder pain and weakness, LBP History of Current Condition Discharged from physical therapy following surgical fusion in March 2019 due to multiple missed appointments per PT attendance policy while this PT gone on extended vacation. Reports severe increase in pain in right scapular region right as well as an increase in his previous low back pain since therapy discontinued. Seeing Dr. Marquez soon to address LBP; states he can't even bend over or take walks especially uphill. Reports increased pain in neck and decreased function of his right UE since last seen in PT. Prior Treatments and Tests cervical spine fusion Future Testing and Treatments Planned Is scheduled to see Dr. Marquez this week regarding LBP.A Treatment Goals Patient/Caregiver Goals Decrease pain, regain functional use of right UE Prior Functional Status Baseline Function- ADL's Independent Baseline Function- Mobility Independent Baseline Function- Gait Independent without device Baseline Function- Work/School disabled Baseline Function- Recreation/Hobbies walking his dog Current Functional Impairments (Reported) Functional Limitations- ADL's independent but painful Functional Limitations- Mobility/Gait independent but limited to short distances due to pain Functional Limitations- Work/School disabled Functional Limitations- Recreation/ has been unable to take his Hobbies dog for walks Personal Factors Other Personal Factors That May Effect cognitive impairment including Therapy/Recovery decreased short term memory since recent c/s fusion surgery PT-OP-C Subjective Start: 05/28/19 08:00 Freq: Status: Active Protocol: Document 06/04/19 09:01 SAK (Rec: 06/04/19 09:51 [facility] [id number]) OP-PT Subjective Patient Comments Patient Comments Reports improved sleep last night, relates this to kinesiotape of shoulder. PT-OP-K Range of Motion Start: 05/28/19 08:00 Freq: Status: Active Protocol: Document 05/28/19 08:14 [facility] (Rec: 06/01/19 16:52 [facility] [id number]) Cervical Spine Range of Motion Cervical Spine Active Flexion 47 Extension 5 Rotation Left 42 Rotation Right 37 Lateral Flexion Left 12 Lateral Flexion Right 7 ROM Limitations Soft Tissue Tightness Bony Restriction Pain Lumbar Spine Range of Motion Lumbar Spine Active ROM Limitations Soft Tissue Tightness Pain Comments moderate decrease all motions with c/o pain Shoulder Goniometric Range of Motion Shoulder Right Active Shoulder ROM WFL No Testing Position Sitting Flexion 142 Extension 20 Abduction 130 External Rotation at 45 degrees 55 Abduction Internal Rotation Behind Back (text) T10 Left Active Shoulder ROM WFL Yes Internal Rotation Behind Back (text) T7 Shoulder ROM Limitations Comments slow, uncoordinated movement of right shoulder with winging of scapula noted with elevation Elbow/Forearm Range of Motion Elbow/Forearm coleen Elbow/Forearm ROM WFL Yes PT-OP-Q Treatments Start: 05/28/19 08:00 Freq: Status: Active Protocol: Document 06/04/19 09:01 [facility] (Rec: 06/04/19 09:51 [facility] [id number]) Cardio Equipment Recumbent Stepper (Sci-Fit) Duration (Minutes) 8 Resistance 2.0 Seat Position 13 Therapeutic Exercises Supine Exercises shoulder hor ab Reps/Minutes 10x Comments end-range stretch after 10 shoulder flex Reps/Minutes 10x Comments end range stretch after 10 serratus punch Reps/Minutes 2x10 sh ER/IR Reps/Minutes 10x Sitting Exercises pulleys shoulder ab Reps/Minutes 10x pulleys shoulder fle Reps/Minutes 10x Standing Exercises Body blade Standing Exercise Name coleen, unil (elbows bent) Reps/Minutes 30, 30 Sh ER Resistance L1 TB Reps/Minutes 10x rows, shoulder ext Resistance L1 TB Reps/Minutes 10x wall posture Reps/Minutes 2 min Manual Therapy Treatment Soft Tissue Mobilization manual pec stretch] Mobilization Type Sustained Pressure Intensity/Depth Moderate Body Position Hooklying upper traps, rhomboids, levator scap Mobilization Type Myofascial Release Rolling Sustained Pressure Trigger Point Release Intensity/Depth gentle Body Position sidelying, supine Taping 1 Body Location between scapula for postural correction, lower trap facil Type of Tape Kinesio Tape Comments I strip Self-Care/Home Management Treatment Education Patient Education Home Exercise Program Pain Management Posture PT-OP-R Modalities Start: 05/28/19 08:00 Freq: Status: Active Protocol: Document 06/04/19 09:01 [facility] (Rec: 06/04/19 09:51 [facility] [id number]) Electric Stimulation Electric Stimulation IFC Body Location Thoracic/Intersncap Duration (Minutes) 15 Intensity 15 Contraction Type Normal Target/Sweep Sweep Patient Position Hooklying Combined With Heat/Cold Cold Pack PT-OP-T Assessment and Plan Start: 05/28/19 08:00 Freq: Status: Active Protocol: Document 06/04/19 09:01 [facility] (Rec: 06/04/19 09:51 [facility] [id number]) Physical Therapy Assessment Goals Five Impairment QuickDash UE disability index score 95% Short Term Goal (STG) Decrease Quickdash UE disability index score to no greater than 60% STG Duration 06/28/19 [facility] Goal (LTG) Decrease Quickdash UE disability index score to no greater than 30% including able to reach overhead and behind his back for ADL's and usual daily activities without difficulty LTG Duration 08/28/19 Four Impairment poor scapular strength and stabilization right, dec coleen UE strength Short Term Goal (STG) Instruct in HEP for purposes of strengthening and scapular stabilization STG Duration 06/28/19 Masonry Installer Goal (LTG) Improve UE strength to at least 4+/5 to allow full functional use of UE's LTG Duration 08/28/19 Three Impairment pain neck, low back, right scapular region 7/10 Short Term Goal (STG) Decrease pain to no greater than 4/10 STG Duration 06/28/19 [facility]sp Goal (LTG) Decrease pain LTG Duration 08/28/19 Two Impairment activity tolerance: Neck disability index score 54% Short Term Goal (STG) Decrease NDI to no greater than 40% STG Duration 06/28/19 [facility] Goal (LTG) Decrease NDI to no greater than 20% with patient able to resume all usual activities LTG Duration 08/28/19 One Impairment activity tolerance: Oswestry disability index score 68% Short Term Goal (STG) Decrease DEBORA to no greater than 50% STG Duration 06/28/19 [facility]sp Goal (LTG) Decrease DEBORA to no greater than 20% with patient able to resume all usual activities including going for walks and hikes with dog LTG Duration 08/28/19 Assessment Summary Assessment Improved exercise tolerance, tape still intact. Decreased pain with treatment. Physical Therapy Plan Frequency and Duration Frequency of Treatment 2x/Week Duration of Treatment 2 months Plan of Care Start Date 05/28/19 Plan of Care End Date 07/29/19 Therapeutic Interventions Therapeutic Interventions Aquatic Therapy Home Exercise Program Manual Therapy Neuromuscular Re-education Patient/Caregiver Education Self-Care/Home Management Soft Tissue Mobilization Taping Therapeutic Activities Therapeutic Exercises Modalities Cold Pack/Ice Massage Hot Packs Next Visit Focus/Plan Next Note Type Treatment Note
--- NOTE | 2019-06-11 11:54 | PT.OTN ---
Current Diagnoses Radiculopathy, cervical region (06/11/19) Low back pain (06/11/19) Physical Therapy Treatment Note PT-OP-A Visit Information Start: 05/28/19 08:00 Freq: Status: Active Protocol: Document 06/11/19 08:22 [facility] (Rec: 06/11/19 09:05 [facility] [id number]) Out-Patient Physical Therapy Visit Information Visit Information Visit Type Treatment Note Visit Start Time 08:15 Visit Stop Time 09:10 Total Visit Minutes 55 Visit Number 4 Number of GAGE DESIGNER Visits 0 Evaluation Information Evaluation Date 12/18/18 Precautions Precautions cervical fusion PT-OP-B Current Condition Start: 05/28/19 08:00 Freq: Status: Active Protocol: Document 05/28/19 08:14 [facility] (Rec: 05/28/19 09:02 [facility] [id number]) Current Condition History of Current Condition Onset Date 2 months Current Complaints increase in neck and right shoulder pain and weakness, LBP History of Current Condition Discharged from physical therapy following surgical fusion in March 2019 due to multiple missed appointments per PT attendance policy while this PT gone on extended vacation. Reports severe increase in pain in right scapular region right as well as an increase in his previous low back pain since therapy discontinued. Seeing Dr. Marquez soon to address LBP; states he can't even bend over or take walks especially uphill. Reports increased pain in neck and decreased function of his right UE since last seen in PT. Prior Treatments and Tests cervical spine fusion Future Testing and Treatments Planned Is scheduled to see Dr. Marquez this week regarding LBP.A Treatment Goals Patient/Caregiver Goals Decrease pain, regain functional use of right UE Prior Functional Status Baseline Function- ADL's Independent Baseline Function- Mobility Independent Baseline Function- Gait Independent without device Baseline Function- Work/School disabled Baseline Function- Recreation/Hobbies walking his dog Current Functional Impairments (Reported) Functional Limitations- ADL's independent but painful Functional Limitations- Mobility/Gait independent but limited to short distances due to pain Functional Limitations- Work/School disabled Functional Limitations- Recreation/ has been unable to take his Hobbies dog for walks Personal Factors Other Personal Factors That May Effect cognitive impairment including Therapy/Recovery decreased short term memory since recent c/s fusion surgery PT-OP-C Subjective Start: 05/28/19 08:00 Freq: Status: Active Protocol: Document 06/11/19 08:22 [facility] (Rec: 06/11/19 09:05 [facility] [id number]) OP-PT Subjective Patient Comments Patient Comments Increased pain without tape. Compliant to HEP except painful without the tape past couple days. PT-OP-K Range of Motion Start: 05/28/19 08:00 Freq: Status: Active Protocol: Document 05/28/19 08:14 [facility] (Rec: 06/01/19 16:52 [facility] [id number]) Cervical Spine Range of Motion Cervical Spine Active Flexion 47 Extension 5 Rotation Left 42 Rotation Right 37 Lateral Flexion Left 12 Lateral Flexion Right 7 ROM Limitations Soft Tissue Tightness Bony Restriction Pain Lumbar Spine Range of Motion Lumbar Spine Active ROM Limitations Soft Tissue Tightness Pain Comments moderate decrease all motions with c/o pain Shoulder Goniometric Range of Motion Shoulder Right Active Shoulder ROM WFL No Testing Position Sitting Flexion 142 Extension 20 Abduction 130 External Rotation at 45 degrees 55 Abduction Internal Rotation Behind Back (text) T10 Left Active Shoulder ROM WFL Yes Internal Rotation Behind Back (text) T7 Shoulder ROM Limitations Comments slow, uncoordinated movement of right shoulder with winging of scapula noted with elevation Elbow/Forearm Range of Motion Elbow/Forearm coleen Elbow/Forearm ROM WFL Yes PT-OP-Q Treatments Start: 05/28/19 08:00 Freq: Status: Active Protocol: Document 06/11/19 08:22 [facility] (Rec: 06/11/19 09:05 [facility] [id number]) Cardio Equipment Recumbent Stepper (Sci-Fit) Duration (Minutes) 8 Resistance 2.0 Seat Position 13 Gym Equipment Cable Column (Body Solid) Lat pull Resistance 20# Reps/Time 10x Therapeutic Exercises Supine Exercises shoulder hor ab Resistance 1# Reps/Minutes 10x Comments end-range stretch after 10 shoulder flex Resistance 1# Reps/Minutes 10x Comments end range stretch after 10 serratus punch Reps/Minutes 2x10 Sitting Exercises shoulder flex Side bilateral Reps/Minutes 5x Comments manual cues for right scapula pulleys shoulder ab Reps/Minutes 10x pulleys shoulder fle Reps/Minutes 10x scapular clocks Reps/Minutes 5 min Comments verbal and manual cues Standing Exercises Body blade Standing Exercise Name coleen, unil (elbows bent) Reps/Minutes 30, 30 Sh ER Resistance L1 TB Reps/Minutes 10x rows, shoulder ext Resistance L1 TB Reps/Minutes 10x wall posture Reps/Minutes 2 min Manual Therapy Treatment Soft Tissue Mobilization manual pec stretch] Mobilization Type Sustained Pressure Intensity/Depth Moderate Body Position Hooklying upper traps, rhomboids, levator scap Mobilization Type Myofascial Release Rolling Sustained Pressure Trigger Point Release Intensity/Depth gentle Body Position sidelying, supine Taping 1 Body Location between scapula for postural correction, lower trap facil Type of Tape Kinesio Tape Comments I strip PT-OP-R Modalities Start: 05/28/19 08:00 Freq: Status: Active Protocol: Document 06/04/19 09:01 [facility] (Rec: 06/04/19 09:51 [facility] [id number]) Electric Stimulation Electric Stimulation IFC Body Location Thoracic/Intersncap Duration (Minutes) 15 Intensity 15 Contraction Type Normal Target/Sweep Sweep Patient Position Hooklying Combined With Heat/Cold Cold Pack PT-OP-T Assessment and Plan Start: 05/28/19 08:00 Freq: Status: Active Protocol: Document 06/11/19 08:22 [facility] (Rec: 06/11/19 09:05 [facility] [id number]) Physical Therapy Assessment Goals Five Impairment QuickDash UE disability index score 95% Short Term Goal (STG) Decrease Quickdash UE disability index score to no greater than 60% STG Duration 06/28/19 Long-Term Goal (LTG) Decrease Quickdash UE disability index score to no greater than 30% including able to reach overhead and behind his back for ADL's and usual daily activities without difficulty LTG Duration 08/28/19 Four Impairment poor scapular strength and stabilization right, dec coleen UE strength Short Term Goal (STG) Instruct in HEP for purposes of strengthening and scapular stabilization STG Duration 06/28/19 Candy Rolling Machine Operator Goal (LTG) Improve UE strength to at least 4+/5 to allow full functional use of UE's LTG Duration 08/28/19 Three Impairment pain neck, low back, right scapular region 7/10 Short Term Goal (STG) Decrease pain to no greater than 4/10 STG Duration 06/28/19 Candy Rolling Machine Operator Goal (LTG) Decrease pain LTG Duration 08/28/19 Two Impairment activity tolerance: Neck disability index score 54% Short Term Goal (STG) Decrease NDI to no greater than 40% STG Duration 06/28/19 Candy Rolling Machine Operator Goal (LTG) Decrease NDI to no greater than 20% with patient able to resume all usual activities LTG Duration 08/28/19 One Impairment activity tolerance: Oswestry disability index score 68% Short Term Goal (STG) Decrease DEBORA to no greater than 50% STG Duration 06/28/19 Long-Term Goal (LTG) Decrease DEBORA to no greater than 20% with patient able to resume all usual activities including going for walks and hikes with dog LTG Duration 08/28/19 Assessment Summary Assessment Improving scapular control with right shoulder elevation, assisted with kinesiotape. REsponds well to verbal and manual cues. Physical Therapy Plan Frequency and Duration Frequency of Treatment 2x/Week Duration of Treatment 2 months Plan of Care Start Date 05/28/19 Plan of Care End Date 07/29/19 Therapeutic Interventions Therapeutic Interventions Aquatic Therapy Home Exercise Program Manual Therapy Neuromuscular Re-education Patient/Caregiver Education Self-Care/Home Management Soft Tissue Mobilization Taping Therapeutic Activities Therapeutic Exercises Modalities Cold Pack/Ice Massage Hot Packs Next Visit Focus/Plan Next Note Type Treatment Note Next Visit Plan Trial prone ther ex for scapular strengthening.
--- NOTE | 2019-06-16 09:43 | PT.OTN ---
Current Diagnoses Radiculopathy, cervical region (06/15/19) Low back pain (06/15/19) Physical Therapy Treatment Note PT-OP-A Visit Information Start: 05/28/19 08:00 Freq: Status: Active Protocol: Document 06/15/19 11:30 [facility] (Rec: 06/16/19 09:42 [facility] [id number]) Out-Patient Physical Therapy Visit Information Visit Information Visit Type Aquatic Treatment Note Visit Start Time 11:30 Visit Stop Time 12:15 Total Visit Minutes 45 Visit Number 5 Number of EXECUTIVE HOUSEKEEPER Visits 0 Evaluation Information Evaluation Date 05/28/19 Precautions Precautions cervical fusion PT-OP-B Current Condition Start: 05/28/19 08:00 Freq: Status: Active Protocol: Document 05/28/19 08:14 [facility] (Rec: 05/28/19 09:02 [facility] [id number]) Current Condition History of Current Condition Onset Date 2 months Current Complaints increase in neck and right shoulder pain and weakness, LBP History of Current Condition Discharged from physical therapy following surgical fusion in March 2019 due to multiple missed appointments per PT attendance policy while this PT gone on extended vacation. Reports severe increase in pain in right scapular region right as well as an increase in his previous low back pain since therapy discontinued. Seeing Dr. Marquez soon to address LBP; states he can't even bend over or take walks especially uphill. Reports increased pain in neck and decreased function of his right UE since last seen in PT. Prior Treatments and Tests cervical spine fusion Future Testing and Treatments Planned Is scheduled to see Dr. Marquez this week regarding LBP.A Treatment Goals Patient/Caregiver Goals Decrease pain, regain functional use of right UE Prior Functional Status Baseline Function- ADL's Independent Baseline Function- Mobility Independent Baseline Function- Gait Independent without device Baseline Function- Work/School disabled Baseline Function- Recreation/Hobbies walking his dog Current Functional Impairments (Reported) Functional Limitations- ADL's independent but painful Functional Limitations- Mobility/Gait independent but limited to short distances due to pain Functional Limitations- Work/School disabled Functional Limitations- Recreation/ has been unable to take his Hobbies dog for walks Personal Factors Other Personal Factors That May Effect cognitive impairment including Therapy/Recovery decreased short term memory since recent c/s fusion surgery PT-OP-C Subjective Start: 05/28/19 08:00 Freq: Status: Active Protocol: Document 06/15/19 11:30 [facility] (Rec: 06/16/19 09:42 [facility] [id number]) OP-PT Subjective Patient Comments Patient Comments Good compliance to HEP PT-OP-K Range of Motion Start: 05/28/19 08:00 Freq: Status: Active Protocol: Document 05/28/19 08:14 [facility] (Rec: 06/01/19 16:52 [facility] [id number]) Cervical Spine Range of Motion Cervical Spine Active Flexion 47 Extension 5 Rotation Left 42 Rotation Right 37 Lateral Flexion Left 12 Lateral Flexion Right 7 ROM Limitations Soft Tissue Tightness Bony Restriction Pain Lumbar Spine Range of Motion Lumbar Spine Active ROM Limitations Soft Tissue Tightness Pain Comments moderate decrease all motions with c/o pain Shoulder Goniometric Range of Motion Shoulder Right Active Shoulder ROM WFL No Testing Position Sitting Flexion 142 Extension 20 Abduction 130 External Rotation at 45 degrees 55 Abduction Internal Rotation Behind Back (text) T10 Left Active Shoulder ROM WFL Yes Internal Rotation Behind Back (text) T7 Shoulder ROM Limitations Comments slow, uncoordinated movement of right shoulder with winging of scapula noted with elevation Elbow/Forearm Range of Motion Elbow/Forearm coleen Elbow/Forearm ROM WFL Yes PT-OP-Q Treatments Start: 05/28/19 08:00 Freq: Status: Active Protocol: Document 06/11/19 08:22 [facility] (Rec: 06/11/19 09:05 [facility] [id number]) Cardio Equipment Recumbent Stepper (Sci-Fit) Duration (Minutes) 8 Resistance 2.0 Seat Position 13 Gym Equipment Cable Column (Body Solid) Lat pull Resistance 20# Reps/Time 10x Therapeutic Exercises Supine Exercises shoulder hor ab Resistance 1# Reps/Minutes 10x Comments end-range stretch after 10 shoulder flex Resistance 1# Reps/Minutes 10x Comments end range stretch after 10 serratus punch Reps/Minutes 2x10 Sitting Exercises shoulder flex Side bilateral Reps/Minutes 5x Comments manual cues for right scapula pulleys shoulder ab Reps/Minutes 10x pulleys shoulder fle Reps/Minutes 10x scapular clocks Reps/Minutes 5 min Comments verbal and manual cues Standing Exercises Body blade Standing Exercise Name coleen, unil (elbows bent) Reps/Minutes 30, 30 Sh ER Resistance L1 TB Reps/Minutes 10x rows, shoulder ext Resistance L1 TB Reps/Minutes 10x wall posture Reps/Minutes 2 min Manual Therapy Treatment Soft Tissue Mobilization manual pec stretch] Mobilization Type Sustained Pressure Intensity/Depth Moderate Body Position Hooklying upper traps, rhomboids, levator scap Mobilization Type Myofascial Release Rolling Sustained Pressure Trigger Point Release Intensity/Depth gentle Body Position sidelying, supine Taping 1 Body Location between scapula for postural correction, lower trap facil Type of Tape Kinesio Tape Comments I strip PT-OP-R Modalities Start: 05/28/19 08:00 Freq: Status: Active Protocol: Document 06/04/19 09:01 [facility] (Rec: 06/04/19 09:51 [facility] [id number]) Electric Stimulation Electric Stimulation IFC Body Location Thoracic/Intersncap Duration (Minutes) 15 Intensity 15 Contraction Type Normal Target/Sweep Sweep Patient Position Hooklying Combined With Heat/Cold Cold Pack PT-OP-S Aquatic Treatment Start: 05/28/19 08:00 Freq: Status: Active Protocol: Document 06/15/19 11:30 [facility] (Rec: 06/16/19 09:42 [facility] [id number]) Aquatics Treatment Pool Entry/Exit Pool Entry/Exit Method Stairs Assistance Independent Water Walking sideways with shoulder stab Comments with elbows bent at 90 deg Sideways Water Level Chest Level Level of Assistance Verbal Cues Comments with shoulder ab/ad backward with reverse breastroke UE's Water Level Chest Level Level of Assistance Verbal Cues forward with breastroke UE's Water Level Chest Level Level of Assistance Verbal Cues [place] Activities [place] Activities Bicycle Bicycle Backwards [place] Other Activities with emphasis on UE movements, scapular stab also forward bicycle holding barbell down/back behind buttocks pendulums side, fwd/bck Equipment flotation belt, long barbell, large barbells Manual Techniques Aquatic Joint Mobilizations supine gentle mid thoracic PA' s Aquatic Massage periscapular region PT-OP-T Assessment and Plan Start: 05/28/19 08:00 Freq: Status: Active Protocol: Document 06/15/19 11:30 [facility] (Rec: 06/16/19 09:42 [facility] [id number]) Physical Therapy Assessment Goals Five Impairment QuickDash UE disability index score 95% Short Term Goal (STG) Decrease Quickdash UE disability index score to no greater than 60% STG Duration 06/28/19 Long-Term Goal (LTG) Decrease Quickdash UE disability index score to no greater than 30% including able to reach overhead and behind his back for ADL's and usual daily activities without difficulty LTG Duration 08/28/19 Four Impairment poor scapular strength and stabilization right, dec coleen UE strength Short Term Goal (STG) Instruct in HEP for purposes of strengthening and scapular stabilization STG Duration 06/28/19 Occupational Health Nurse Goal (LTG) Improve UE strength to at least 4+/5 to allow full functional use of UE's LTG Duration 08/28/19 Three Impairment pain neck, low back, right scapular region 05/20 Short Term Goal (STG) Decrease pain to no greater than 4/10 STG Duration 06/28/19 Occupational Health Nurse Goal (LTG) Decrease pain LTG Duration 08/28/19 Two Impairment activity tolerance: Neck disability index score 54% Short Term Goal (STG) Decrease NDI to no greater than 40% STG Duration 06/28/19 Long-Term Goal (LTG) Decrease NDI to no greater than 20% with patient able to resume all usual activities LTG Duration 08/28/19 One Impairment activity tolerance: Oswestry disability index score 68% Short Term Goal (STG) Decrease DEBORA to no greater than 50% STG Duration 06/28/19 Occupational Health Nurse Goal (LTG) Decrease DEBORA to no greater than 20% with patient able to resume all usual activities including going for walks and hikes with dog LTG Duration 08/28/19 Assessment Summary Assessment good tolerance for aquatic therapy session today, verbal and manual cues for right scapular stabilization Physical Therapy Plan Frequency and Duration Frequency of Treatment 2x/Week Duration of Treatment 2 months Plan of Care Start Date 05/28/19 Plan of Care End Date 07/29/19 Therapeutic Interventions Therapeutic Interventions Aquatic Therapy Home Exercise Program Manual Therapy Neuromuscular Re-education Patient/Caregiver Education Self-Care/Home Management Soft Tissue Mobilization Taping Therapeutic Activities Therapeutic Exercises Modalities Cold Pack/Ice Massage Hot Packs Next Visit Focus/Plan Next Note Type Treatment Note Next Visit Plan Trial prone ther ex for scapular strengthening and stabilization. Re-tape with kinesiotape.
--- NOTE | 2019-06-24 08:14 | PT.OTN ---
Current Diagnoses Radiculopathy, cervical region (06/24/19) Low back pain (06/24/19) Physical Therapy Treatment Note PT-OP-A Visit Information Start: 05/28/19 08:00 Freq: Status: Active Protocol: Document 06/24/19 08:14 SAK (Rec: 06/24/19 09:01 SAK [id number]) Out-Patient Physical Therapy Visit Information Visit Information Visit Type Treatment Note Visit Start Time 08:15 Visit Stop Time 09:10 Total Visit Minutes 55 Visit Number 6 Evaluation Information Evaluation Date 05/28/19 Precautions Precautions cervical fusion PT-OP-B Current Condition Start: 05/28/19 08:00 Freq: Status: Active Protocol: Document 05/28/19 08:14 SAK (Rec: 05/28/19 09:02 SAK [id number]) Current Condition History of Current Condition Onset Date 2 months Current Complaints increase in neck and right shoulder pain and weakness, LBP History of Current Condition Discharged from physical therapy following surgical fusion in March 2019 due to multiple missed appointments per PT attendance policy while this PT gone on extended vacation. Reports severe increase in pain in right scapular region right as well as an increase in his previous low back pain since therapy discontinued. Seeing Dr. Marquez soon to address LBP; states he can't even bend over or take walks especially uphill. Reports increased pain in neck and decreased function of his right UE since last seen in PT. Prior Treatments and Tests cervical spine fusion Future Testing and Treatments Planned Is scheduled to see Dr. Marquez this week regarding LBP.A Treatment Goals Patient/Caregiver Goals Decrease pain, regain functional use of right UE Prior Functional Status Baseline Function- ADL's Independent Baseline Function- Mobility Independent Baseline Function- Gait Independent without device Baseline Function- Work/School disabled Baseline Function- Recreation/Hobbies walking his dog Current Functional Impairments (Reported) Functional Limitations- ADL's independent but painful Functional Limitations- Mobility/Gait independent but limited to short distances due to pain Functional Limitations- Work/School disabled Functional Limitations- Recreation/ has been unable to take his Hobbies dog for walks Personal Factors Other Personal Factors That May Effect cognitive impairment including Therapy/Recovery decreased short term memory since recent c/s fusion surgery PT-OP-C Subjective Start: 05/28/19 08:00 Freq: Status: Active Protocol: Document 06/24/19 08:14 SAK (Rec: 08/14/19 08:19 [facility] [id number]) OP-PT Subjective Patient Comments Patient Comments Feels he is making progress, putting pillow under right arm for support as recommended helpful PT-OP-K Range of Motion Start: 05/28/19 08:00 Freq: Status: Active Protocol: Document 05/28/19 08:14 [facility] (Rec: 06/01/19 16:52 [facility] [id number]) Cervical Spine Range of Motion Cervical Spine Active Flexion 47 Extension 5 Rotation Left 42 Rotation Right 37 Lateral Flexion Left 12 Lateral Flexion Right 7 ROM Limitations Soft Tissue Tightness Bony Restriction Pain Lumbar Spine Range of Motion Lumbar Spine Active ROM Limitations Soft Tissue Tightness Pain Comments moderate decrease all motions with c/o pain Shoulder Goniometric Range of Motion Shoulder Right Active Shoulder ROM WFL No Testing Position Sitting Flexion 142 Extension 20 Abduction 130 External Rotation at 45 degrees 55 Abduction Internal Rotation Behind Back (text) T10 Left Active Shoulder ROM WFL Yes Internal Rotation Behind Back (text) T7 Shoulder ROM Limitations Comments slow, uncoordinated movement of right shoulder with winging of scapula noted with elevation Elbow/Forearm Range of Motion Elbow/Forearm coleen Elbow/Forearm ROM WFL Yes PT-OP-Q Treatments Start: 05/28/19 08:00 Freq: Status: Active Protocol: Document 06/24/19 08:14 [facility] (Rec: 06/24/19 09:01 [facility] [id number]) Cardio Equipment Recumbent Stepper (Sci-Fit) Duration (Minutes) 10 Resistance 2.0 Seat Position 13 Gym Equipment Cable Column (Body Solid) Lat pull Resistance 20# Reps/Time 10x Therapeutic Exercises Supine Exercises shoulder hor ab Resistance 1# Reps/Minutes 10x Comments end-range stretch after 10 shoulder flex Resistance 1# Reps/Minutes 10x Comments end range stretch after 10 serratus punch Resistance 1# Reps/Minutes 2x10 Prone Exercises Shldd ext Reps/Minutes 10x Shlld hor ab Reps/Minutes 10x Sitting Exercises shoulder flex Side bilateral Reps/Minutes 5x Comments manual cues for right scapula pulleys shoulder ab Reps/Minutes 10x pulleys shoulder fle Reps/Minutes 10x scapular clocks Reps/Minutes 5 min Comments verbal and manual cues Standing Exercises Sh ER Resistance L2 Reps/Minutes 10x rows, shoulder ext Resistance L2 TB Reps/Minutes 10x wall posture Reps/Minutes 2 min Manual Therapy Treatment Soft Tissue Mobilization manual pec stretch] Mobilization Type Sustained Pressure Intensity/Depth Moderate Body Position Hooklying upper traps, rhomboids, levator scap Mobilization Type Myofascial Release Rolling Sustained Pressure Trigger Point Release Intensity/Depth gentle Body Position sidelying, supine Taping 1 Body Location between scapula for postural correction, lower trap facil Type of Tape Kinesio Tape Comments I strip PT-OP-R Modalities Start: 05/28/19 08:00 Freq: Status: Active Protocol: Document 06/24/19 08:14 [facility] (Rec: 06/26/19 15:22 [facility] [id number]) Electric Stimulation Electric Stimulation IFC Body Location Thoracic/Intersncap Duration (Minutes) 15 Intensity 15 Contraction Type Normal Target/Sweep Sweep Patient Position Hooklying Combined With Heat/Cold Cold Pack PT-OP-S Aquatic Treatment Start: 05/28/19 08:00 Freq: Status: Active Protocol: Document 06/15/19 11:30 [facility] (Rec: 06/16/19 09:42 [facility] [id number]) Aquatics Treatment Pool Entry/Exit Pool Entry/Exit Method Stairs Assistance Independent Water Walking sideways with shoulder stab Comments with elbows bent at 90 deg Sideways Water Level Chest Level Level of Assistance Verbal Cues Comments with shoulder ab/ad backward with reverse breastroke UE's Water Level Chest Level Level of Assistance Verbal Cues forward with breastroke UE's Water Level Chest Level Level of Assistance Verbal Cues [place] Activities [place] Activities Bicycle Bicycle Backwards [place] Other Activities with emphasis on UE movements, scapular stab also forward bicycle holding barbell down/back behind buttocks pendulums side, fwd/bck Equipment flotation belt, long barbell, large barbells Manual Techniques Aquatic Joint Mobilizations supine gentle mid thoracic PA' s Aquatic Massage periscapular region PT-OP-T Assessment and Plan Start: 05/28/19 08:00 Freq: Status: Active Protocol: Document 06/24/19 08:14 [facility] (Rec: 06/24/19 09:01 [facility] [id number]) Physical Therapy Assessment Goals Five Impairment QuickDash UE disability index score 95% Short Term Goal (STG) Decrease Quickdash UE disability index score to no greater than 60% STG Duration 06/28/19 Counterintelligence Agent Goal (LTG) Decrease Quickdash UE disability index score to no greater than 30% including able to reach overhead and behind his back for ADL's and usual daily activities without difficulty LTG Duration 08/28/19 Four Impairment poor scapular strength and stabilization right, dec coleen UE strength Short Term Goal (STG) Instruct in HEP for purposes of strengthening and scapular stabilization STG Duration 06/28/19 Shelter Goal (LTG) Improve UE strength to at least 4+/5 to allow full functional use of UE's LTG Duration 08/28/19 Three Impairment pain neck, low back, right scapular region 05/20 Short Term Goal (STG) Decrease pain to no greater than 4/10 STG Duration 06/28/19 Counterintelligence Agent Goal (LTG) Decrease pain LTG Duration 08/28/19 Two Impairment activity tolerance: Neck disability index score 54% Short Term Goal (STG) Decrease NDI to no greater than 40% STG Duration 06/28/19 Shelter Goal (LTG) Decrease NDI to no greater than 20% with patient able to resume all usual activities LTG Duration 08/28/19 One Impairment activity tolerance: Oswestry disability index score 68% Short Term Goal (STG) Decrease DEBORA to no greater than 50% STG Duration 06/28/19 Shelter Goal (LTG) Decrease DEBORA to no greater than 20% with patient able to resume all usual activities including going for walks and hikes with dog LTG Duration 08/28/19 Assessment Summary Assessment Good tolerance for progression to L2 TB and addition of prone ther ex. Decreased symptoms. Physical Therapy Plan Frequency and Duration Frequency of Treatment 2x/Week Duration of Treatment 2 months Plan of Care Start Date 05/28/19 Plan of Care End Date 07/29/19 Next Visit Focus/Plan Next Note Type Treatment Note Next Visit Plan Continue progression of ther ex, manual therapy, modalities PRN, aquatic therapy to decrease pain and improve function s/p cervical fusion
--- NOTE | 2019-06-29 15:42 | PT.OTN ---
Current Diagnoses Radiculopathy, cervical region (06/24/19) Low back pain (06/24/19) Physical Therapy Treatment Note PT-OP-A Visit Information Start: 05/28/19 08:00 Freq: Status: Active Protocol: Document 06/29/19 12:15 LJ (Rec: 06/29/19 15:42 LJ [id number]) Out-Patient Physical Therapy Visit Information Visit Information Visit Type Aquatic Treatment Note Visit Start Time 12:15 Visit Stop Time 13:00 Total Visit Minutes 45 Visit Number 7 Number of SKIP PITMAN Visits 1 Precautions Precautions cervical fusion PT-OP-B Current Condition Start: 05/28/19 08:00 Freq: Status: Active Protocol: Document 05/28/19 08:14 SAK (Rec: 05/28/19 09:02 SAK [id number]) Current Condition History of Current Condition Onset Date 2 months Current Complaints increase in neck and right shoulder pain and weakness, LBP History of Current Condition Discharged from physical therapy following surgical fusion in March 2019 due to multiple missed appointments per PT attendance policy while this PT gone on extended vacation. Reports severe increase in pain in right scapular region right as well as an increase in his previous low back pain since therapy discontinued. Seeing Dr. Marquez soon to address LBP; states he can't even bend over or take walks especially uphill. Reports increased pain in neck and decreased function of his right UE since last seen in PT. Prior Treatments and Tests cervical spine fusion Future Testing and Treatments Planned Is scheduled to see Dr. Marquez this week regarding LBP.A Treatment Goals Patient/Caregiver Goals Decrease pain, regain functional use of right UE Prior Functional Status Baseline Function- ADL's Independent Baseline Function- Mobility Independent Baseline Function- Gait Independent without device Baseline Function- Work/School disabled Baseline Function- Recreation/Hobbies walking his dog Current Functional Impairments (Reported) Functional Limitations- ADL's independent but painful Functional Limitations- Mobility/Gait independent but limited to short distances due to pain Functional Limitations- Work/School disabled Functional Limitations- Recreation/ has been unable to take his Hobbies dog for walks Personal Factors Other Personal Factors That May Effect cognitive impairment including Therapy/Recovery decreased short term memory since recent c/s fusion surgery PT-OP-C Subjective Start: 05/28/19 08:00 Freq: Status: Active Protocol: Document 06/29/19 12:15 LJ (Rec: 06/29/19 15:42 LJ [id number]) OP-PT Subjective Patient Comments Patient Comments Arrived 45 min early to warm up prior to therapy PT-OP-K Range of Motion Start: 05/28/19 08:00 Freq: Status: Active Protocol: Document 05/28/19 08:14 SAK (Rec: 06/01/19 16:52 SAK [id number]) Cervical Spine Range of Motion Cervical Spine Active Flexion 47 Extension 5 Rotation Left 42 Rotation Right 37 Lateral Flexion Left 12 Lateral Flexion Right 7 ROM Limitations Soft Tissue Tightness Bony Restriction Pain Lumbar Spine Range of Motion Lumbar Spine Active ROM Limitations Soft Tissue Tightness Pain Comments moderate decrease all motions with c/o pain Shoulder Goniometric Range of Motion Shoulder Right Active Shoulder ROM WFL No Testing Position Sitting Flexion 142 Extension 20 Abduction 130 External Rotation at 45 degrees 55 Abduction Internal Rotation Behind Back (text) T10 Left Active Shoulder ROM WFL Yes Internal Rotation Behind Back (text) T7 Shoulder ROM Limitations Comments slow, uncoordinated movement of right shoulder with winging of scapula noted with elevation Elbow/Forearm Range of Motion Elbow/Forearm coleen Elbow/Forearm ROM WFL Yes PT-OP-Q Treatments Start: 05/28/19 08:00 Freq: Status: Active Protocol: Document 06/24/19 08:14 [facility]IQUIS (Rec: 06/24/19 09:01 SAK [id number]) Cardio Equipment Recumbent Stepper (Sci-Fit) Duration (Minutes) 10 Resistance 2.0 Seat Position 13 Gym Equipment Cable Column (Body Solid) Lat pull Resistance 20# Reps/Time 10x Therapeutic Exercises Supine Exercises shoulder hor ab Resistance 1# Reps/Minutes 10x Comments end-range stretch after 10 shoulder flex Resistance 1# Reps/Minutes 10x Comments end range stretch after 10 serratus punch Resistance 1# Reps/Minutes 2x10 Prone Exercises Shldd ext Reps/Minutes 10x Shlld hor ab Reps/Minutes 10x Sitting Exercises shoulder flex Side bilateral Reps/Minutes 5x Comments manual cues for right scapula pulleys shoulder ab Reps/Minutes 10x pulleys shoulder fle Reps/Minutes 10x scapular clocks Reps/Minutes 5 min Comments verbal and manual cues Standing Exercises Sh ER Resistance L2 Reps/Minutes 10x rows, shoulder ext Resistance L2 TB Reps/Minutes 10x wall posture Reps/Minutes 2 min Manual Therapy Treatment Soft Tissue Mobilization manual pec stretch] Mobilization Type Sustained Pressure Intensity/Depth Moderate Body Position Hooklying upper traps, rhomboids, levator scap Mobilization Type Myofascial Release Rolling Sustained Pressure Trigger Point Release Intensity/Depth gentle Body Position sidelying, supine Taping 1 Body Location between scapula for postural correction, lower trap facil Type of Tape Kinesio Tape Comments I strip PT-OP-R Modalities Start: 05/28/19 08:00 Freq: Status: Active Protocol: Document 06/24/19 08:14 SAK (Rec: 06/26/19 15:22 SAK [id number]) Electric Stimulation Electric Stimulation IFC Body Location Thoracic/Intersncap Duration (Minutes) 15 Intensity 15 Contraction Type Normal Target/Sweep Sweep Patient Position Hooklying Combined With Heat/Cold Cold Pack PT-OP-S Aquatic Treatment Start: 05/28/19 08:00 Freq: Status: Active Protocol: Document 06/29/19 12:15 [facility] (Rec: 06/29/19 15:42 FLORENCIA [id number]) Aquatics Treatment Pool Entry/Exit Pool Entry/Exit Method Stairs Assistance Independent Water Walking sideways with shoulder stab Comments with elbows bent at 90 deg Sideways Water Level Chest Level Level of Assistance Verbal Cues Comments with shoulder ab/ad backward with reverse breastroke UE's Water Level Chest Level Level of Assistance Verbal Cues forward with breastroke UE's Water Level Chest Level Level of Assistance Verbal Cues Upper Extremity Exercises ab,ad,fl,ex, hor ab/ad Body Position Standing Water Level Chest Level Equipment sm hand bells Reps/Duration [address] Comments emphasis on scap stabilization Upper Extremity Stretches pec stretch Body Position Standing Water Level Chest Level Equipment UE paddles Reps/Duration 10 each side Comments scap contract while turning body wall angles with chin retraction Body Position Standing Water Level Neck Level Reps/Duration x10 Comments sm movement [place] Activities [place] Activities Bicycle [place] Hip Abduction/Adduction Other Activities with emphasis on UE movements, scapular stab Equipment floatation belt Manual Techniques Aquatic Joint Mobilizations supine gentle mid thoracic PA' s Aquatic Massage periscapular region PT-OP-T Assessment and Plan Start: 05/28/19 08:00 Freq: Status: Active Protocol: Document 06/29/19 12:15 [facility]ORENC[facility] (Rec: 06/29/19 15:42 LJ [id number]) Physical Therapy Assessment Goals Five Impairment QuickDash UE disability index score 95% Short Term Goal (STG) Decrease Quickdash UE disability index score to no greater than 60% STG Duration 06/28/19 Penitentiary Goal (LTG) Decrease Quickdash UE disability index score to no greater than 30% including able to reach overhead and behind his back for ADL's and usual daily activities without difficulty LTG Duration 08/28/19 Four Impairment poor scapular strength and stabilization right, dec coleen UE strength Short Term Goal (STG) Instruct in HEP for purposes of strengthening and scapular stabilization STG Duration 06/28/19 Electroencephalographic Technologist Goal (LTG) Improve UE strength to at least 4+/5 to allow full functional use of UE's LTG Duration 08/28/19 Three Impairment pain neck, low back, right scapular region 05/20 Short Term Goal (STG) Decrease pain to no greater than 4/10 STG Duration 06/28/19 Electroencephalographic Technologist Goal (LTG) Decrease pain LTG Duration 08/28/19 Two Impairment activity tolerance: Neck disability index score 54% Short Term Goal (STG) Decrease NDI to no greater than 40% STG Duration 06/28/19 Electroencephalographic Technologist Goal (LTG) Decrease NDI to no greater than 20% with patient able to resume all usual activities LTG Duration 08/28/19 One Impairment activity tolerance: Oswestry disability index score 68% Short Term Goal (STG) Decrease DEBORA to no greater than 50% STG Duration 06/28/19 Electroencephalographic Technologist Goal (LTG) Decrease DEBORA to no greater than 20% with patient able to resume all usual activities including going for walks and hikes with dog LTG Duration 08/28/19 Assessment Summary Assessment Pt with good scap control during exercises. Req'd cueing initially. Good tolerance for new stretches and addition of hand bells Physical Therapy Plan Frequency and Duration Frequency of Treatment 2x/Week Duration of Treatment 2 months Plan of Care Start Date 05/28/19 Plan of Care End Date 07/29/19 Therapeutic Interventions Therapeutic Interventions Aquatic Therapy Home Exercise Program Manual Therapy Neuromuscular Re-education Patient/Caregiver Education Self-Care/Home Management Soft Tissue Mobilization Taping Therapeutic Activities Therapeutic Exercises Modalities Cold Pack/Ice Massage Hot Packs Next Visit Focus/Plan Next Note Type Treatment Note Next Visit Plan Continue progression of ther ex, manual therapy, modalities PRN, aquatic therapy to decrease pain and improve function s/p cervical fusion
--- NOTE | 2019-07-02 09:04 | PT.OTN ---
Current Diagnoses Radiculopathy, cervical region (07/02/19) Low back pain (07/02/19) Physical Therapy Treatment Note PT-OP-A Visit Information Start: 05/28/19 08:00 Freq: Status: Active Protocol: Document 07/02/19 08:15 SAK (Rec: 07/02/19 09:03 SAK [id number]) Out-Patient Physical Therapy Visit Information Visit Information Visit Type Treatment Note Visit Start Time 08:15 Visit Stop Time 09:14 Total Visit Minutes 59 Visit Number 8 Evaluation Information Evaluation Date 05/28/19 Precautions Precautions cervical fusion PT-OP-B Current Condition Start: 05/28/19 08:00 Freq: Status: Active Protocol: Document 05/28/19 08:14 SAK (Rec: 05/28/19 09:02 SAK [id number]) Current Condition History of Current Condition Onset Date 2 months Current Complaints increase in neck and right shoulder pain and weakness, LBP History of Current Condition Discharged from physical therapy following surgical fusion in March 2019 due to multiple missed appointments per PT attendance policy while this PT gone on extended vacation. Reports severe increase in pain in right scapular region right as well as an increase in his previous low back pain since therapy discontinued. Seeing Dr. Marquez soon to address LBP; states he can't even bend over or take walks especially uphill. Reports increased pain in neck and decreased function of his right UE since last seen in PT. Prior Treatments and Tests cervical spine fusion Future Testing and Treatments Planned Is scheduled to see Dr. Marquez this week regarding LBP.A Treatment Goals Patient/Caregiver Goals Decrease pain, regain functional use of right UE Prior Functional Status Baseline Function- ADL's Independent Baseline Function- Mobility Independent Baseline Function- Gait Independent without device Baseline Function- Work/School disabled Baseline Function- Recreation/Hobbies walking his dog Current Functional Impairments (Reported) Functional Limitations- ADL's independent but painful Functional Limitations- Mobility/Gait independent but limited to short distances due to pain Functional Limitations- Work/School disabled Functional Limitations- Recreation/ has been unable to take his Hobbies dog for walks Personal Factors Other Personal Factors That May Effect cognitive impairment including Therapy/Recovery decreased short term memory since recent c/s fusion surgery PT-OP-C Subjective Start: 05/28/19 08:00 Freq: Status: Active Protocol: Document 07/02/19 08:15 SAK (Rec: 08/22/19 09:03 [facility] [id number]) OP-PT Subjective Patient Comments Patient Comments Reports sees Dr. Fernando tolentino am. Feeling less pain, improved motion in neck. PT-OP-K Range of Motion Start: 05/28/19 08:00 Freq: Status: Active Protocol: Document 05/28/19 08:14 SAK (Rec: 06/01/19 16:52 [facility] [id number]) Cervical Spine Range of Motion Cervical Spine Active Flexion 47 Extension 5 Rotation Left 42 Rotation Right 37 Lateral Flexion Left 12 Lateral Flexion Right 7 ROM Limitations Soft Tissue Tightness Bony Restriction Pain Lumbar Spine Range of Motion Lumbar Spine Active ROM Limitations Soft Tissue Tightness Pain Comments moderate decrease all motions with c/o pain Shoulder Goniometric Range of Motion Shoulder Right Active Shoulder ROM WFL No Testing Position Sitting Flexion 142 Extension 20 Abduction 130 External Rotation at 45 degrees 55 Abduction Internal Rotation Behind Back (text) T10 Left Active Shoulder ROM WFL Yes Internal Rotation Behind Back (text) T7 Shoulder ROM Limitations Comments slow, uncoordinated movement of right shoulder with winging of scapula noted with elevation Elbow/Forearm Range of Motion Elbow/Forearm coleen Elbow/Forearm ROM WFL Yes PT-OP-Q Treatments Start: 05/28/19 08:00 Freq: Status: Active Protocol: Document 07/02/19 08:15 CHIQUIS (Rec: 07/02/19 09:03 [facility] [id number]) Cardio Equipment Recumbent Stepper (Sci-Fit) Duration (Minutes) 10 Resistance 2.0 Seat Position 13 Gym Equipment Cable Column (Body Solid) Lat pull Resistance 20# Reps/Time 10x Therapeutic Exercises Supine Exercises shoulder hor ab Resistance 1# Reps/Minutes 10x Comments end-range stretch after 10 shoulder flex Resistance 1# Reps/Minutes 10x Comments end range stretch after 10 Prone Exercises Shldd ext Reps/Minutes 10x Shlld hor ab Reps/Minutes 10x Sitting Exercises shoulder flex Side bilateral Reps/Minutes 5x Comments manual cues for right scapula pulleys shoulder ab Reps/Minutes 10x pulleys shoulder fle Reps/Minutes 10x scapular clocks Reps/Minutes 5 min Comments verbal and manual cues Standing Exercises Body blade Standing Exercise Name coleen, unil (elbows bent) Reps/Minutes 30, 30 rows, shoulder ext Resistance L2 TB Reps/Minutes 10x wall posture Reps/Minutes 2 min Manual Therapy Treatment Soft Tissue Mobilization manual pec stretch] Mobilization Type Sustained Pressure Intensity/Depth Moderate Body Position Hooklying upper traps, rhomboids, levator scap Mobilization Type Myofascial Release Rolling Sustained Pressure Trigger Point Release Intensity/Depth gentle Body Position sidelying, supine Taping 1 Body Location between scapula for postural correction, lower trap facil Type of Tape Kinesio Tape Comments I strip PT-OP-R Modalities Start: 05/28/19 08:00 Freq: Status: Active Protocol: Document 07/02/19 08:15 SAK (Rec: 07/02/19 09:03 SAK [id number]) Electric Stimulation Electric Stimulation IFC Body Location Thoracic/Intersncap Duration (Minutes) 15 Intensity 15 Contraction Type Normal Target/Sweep Sweep Patient Position Hooklying Combined With Heat/Cold Cold Pack PT-OP-S Aquatic Treatment Start: 05/28/19 08:00 Freq: Status: Active Protocol: Document 06/29/19 12:15 LJ (Rec: 06/29/19 15:42 LJ [id number]) Aquatics Treatment Pool Entry/Exit Pool Entry/Exit Method Stairs Assistance Independent Water Walking sideways with shoulder stab Comments with elbows bent at 90 deg Sideways Water Level Chest Level Level of Assistance Verbal Cues Comments with shoulder ab/ad backward with reverse breastroke UE's Water Level Chest Level Level of Assistance Verbal Cues forward with breastroke UE's Water Level Chest Level Level of Assistance Verbal Cues Upper Extremity Exercises ab,ad,fl,ex, hor ab/ad Body Position Standing Water Level Chest Level Equipment sm hand bells Reps/Duration [address] Comments emphasis on scap stabilization Upper Extremity Stretches pec stretch Body Position Standing Water Level Chest Level Equipment UE paddles Reps/Duration 10 each side Comments scap contract while turning body wall angles with chin retraction Body Position Standing Water Level Neck Level Reps/Duration x10 Comments sm movement [place]ons Activities [place]ons Activities Bicycle Cross [place] Hip Abduction/Adduction Other Activities with emphasis on UE movements, scapular stab Equipment floatation belt Manual Techniques Aquatic Joint Mobilizations supine gentle mid thoracic PA' s Aquatic Massage periscapular region PT-OP-T Assessment and Plan Start: 05/28/19 08:00 Freq: Status: Active Protocol: Document 07/02/19 08:15 SAK (Rec: 07/02/19 09:03 SAK [id number]) Physical Therapy Assessment Goals Five Impairment QuickDash UE disability index score 95% Short Term Goal (STG) Decrease Quickdash UE disability index score to no greater than 60% STG Duration 06/28/19 Residential Goal (LTG) Decrease Quickdash UE disability index score to no greater than 30% including able to reach overhead and behind his back for ADL's and usual daily activities without difficulty LTG Duration 08/28/19 Four Impairment poor scapular strength and stabilization right, dec coleen UE strength Short Term Goal (STG) Instruct in HEP for purposes of strengthening and scapular stabilization STG Duration 06/28/19 Waterway Traffic Checker Goal (LTG) Improve UE strength to at least 4+/5 to allow full functional use of UE's LTG Duration 08/28/19 Three Impairment pain neck, low back, right scapular region 05/20 Short Term Goal (STG) Decrease pain to no greater than 4/10 STG Duration 06/28/19 Waterway Traffic Checker Goal (LTG) Decrease pain LTG Duration 08/28/19 Two Impairment activity tolerance: Neck disability index score 54% Short Term Goal (STG) Decrease NDI to no greater than 40% STG Duration 06/28/19 Residential Goal (LTG) Decrease NDI to no greater than 20% with patient able to resume all usual activities LTG Duration 08/28/19 One Impairment activity tolerance: Oswestry disability index score 68% Short Term Goal (STG) Decrease DEBORA to no greater than 50% STG Duration 06/28/19 Waterway Traffic Checker Goal (LTG) Decrease DEBORA to no greater than 20% with patient able to resume all usual activities including going for walks and hikes with dog LTG Duration 08/28/19 Assessment Summary Assessment Mod cues for head/neck positioning; tendency toward forward head. Took pictures for patient reference during wall posture exercise Physical Therapy Plan Frequency and Duration Frequency of Treatment 2x/Week Duration of Treatment 2 months Plan of Care Start Date 05/28/19 Plan of Care End Date 07/29/19 Therapeutic Interventions Therapeutic Interventions Aquatic Therapy Home Exercise Program Manual Therapy Neuromuscular Re-education Patient/Caregiver Education Self-Care/Home Management Soft Tissue Mobilization Taping Therapeutic Activities Therapeutic Exercises Modalities Cold Pack/Ice Massage Hot Packs Next Visit Focus/Plan Next Note Type Treatment Note Next Visit Plan Continue PT per POC pending outcome of appointment with Dr Sylvester King today.
--- NOTE | 2019-07-06 15:12 | PT.OTN ---
Current Diagnoses Radiculopathy, cervical region (07/06/19) Low back pain (07/06/19) Physical Therapy Treatment Note PT-OP-A Visit Information Start: 05/28/19 08:00 Freq: Status: Active Protocol: Document 07/06/19 11:30 LJ (Rec: 07/06/19 15:12 LJ [id number]) Out-Patient Physical Therapy Visit Information Visit Information Visit Type Aquatic Treatment Note Visit Start Time 11:30 Visit Stop Time 12:15 Total Visit Minutes 45 Visit Number 9 Number of SPECIAL POPULATION PARAPROFESSIONAL Visits 1 Precautions Precautions cervical fusion PT-OP-B Current Condition Start: 05/28/19 08:00 Freq: Status: Active Protocol: Document 05/28/19 08:14 SAK (Rec: 05/28/19 09:02 SAK [id number]) Current Condition History of Current Condition Onset Date 2 months Current Complaints increase in neck and right shoulder pain and weakness, LBP History of Current Condition Discharged from physical therapy following surgical fusion in March 2019 due to multiple missed appointments per PT attendance policy while this PT gone on extended vacation. Reports severe increase in pain in right scapular region right as well as an increase in his previous low back pain since therapy discontinued. Seeing Dr. Marquez soon to address LBP; states he can't even bend over or take walks especially uphill. Reports increased pain in neck and decreased function of his right UE since last seen in PT. Prior Treatments and Tests cervical spine fusion Future Testing and Treatments Planned Is scheduled to see Dr. Marquez this week regarding LBP.A Treatment Goals Patient/Caregiver Goals Decrease pain, regain functional use of right UE Prior Functional Status Baseline Function- ADL's Independent Baseline Function- Mobility Independent Baseline Function- Gait Independent without device Baseline Function- Work/School disabled Baseline Function- Recreation/Hobbies walking his dog Current Functional Impairments (Reported) Functional Limitations- ADL's independent but painful Functional Limitations- Mobility/Gait independent but limited to short distances due to pain Functional Limitations- Work/School disabled Functional Limitations- Recreation/ has been unable to take his Hobbies dog for walks Personal Factors Other Personal Factors That May Effect cognitive impairment including Therapy/Recovery decreased short term memory since recent c/s fusion surgery PT-OP-C Subjective Start: 05/28/19 08:00 Freq: Status: Active Protocol: Document 07/06/19 11:30 LJ (Rec: 07/06/19 15:12 LJ [email or web address]) OP-PT Subjective Patient Comments Patient Comments Went fishing on the weekend and is sore from that PT-OP-K Range of Motion Start: 05/28/19 08:00 Freq: Status: Active Protocol: Document 05/28/19 08:14 SAK (Rec: 06/01/19 16:52 SAK [id number]) Cervical Spine Range of Motion Cervical Spine Active Flexion 47 Extension 5 Rotation Left 42 Rotation Right 37 Lateral Flexion Left 12 Lateral Flexion Right 7 ROM Limitations Soft Tissue Tightness Bony Restriction Pain Lumbar Spine Range of Motion Lumbar Spine Active ROM Limitations Soft Tissue Tightness Pain Comments moderate decrease all motions with c/o pain Shoulder Goniometric Range of Motion Shoulder Right Active Shoulder ROM WFL No Testing Position Sitting Flexion 142 Extension 20 Abduction 130 External Rotation at 45 degrees 55 Abduction Internal Rotation Behind Back (text) T10 Left Active Shoulder ROM WFL Yes Internal Rotation Behind Back (text) T7 Shoulder ROM Limitations Comments slow, uncoordinated movement of right shoulder with winging of scapula noted with elevation Elbow/Forearm Range of Motion Elbow/Forearm coleen Elbow/Forearm ROM WFL Yes PT-OP-Q Treatments Start: 05/28/19 08:00 Freq: Status: Active Protocol: Document 07/02/19 08:15 SAK (Rec: 07/02/19 09:03 SAK [id number]) Cardio Equipment Recumbent Stepper (Sci-Fit) Duration (Minutes) 10 Resistance 2.0 Seat Position 13 Gym Equipment Cable Column (Body Solid) Lat pull Resistance 20# Reps/Time 10x Therapeutic Exercises Supine Exercises shoulder hor ab Resistance 1# Reps/Minutes 10x Comments end-range stretch after 10 shoulder flex Resistance 1# Reps/Minutes 10x Comments end range stretch after 10 Prone Exercises Shldd ext Reps/Minutes 10x Shlld hor ab Reps/Minutes 10x Sitting Exercises shoulder flex Side bilateral Reps/Minutes 5x Comments manual cues for right scapula pulleys shoulder ab Reps/Minutes 10x pulleys shoulder fle Reps/Minutes 10x scapular clocks Reps/Minutes 5 min Comments verbal and manual cues Standing Exercises Body blade Standing Exercise Name coleen, unil (elbows bent) Reps/Minutes 30, 30 rows, shoulder ext Resistance L2 TB Reps/Minutes 10x wall posture Reps/Minutes 2 min Manual Therapy Treatment Soft Tissue Mobilization manual pec stretch] Mobilization Type Sustained Pressure Intensity/Depth Moderate Body Position Hooklying upper traps, rhomboids, levator scap Mobilization Type Myofascial Release Rolling Sustained Pressure Trigger Point Release Intensity/Depth gentle Body Position sidelying, supine Taping 1 Body Location between scapula for postural correction, lower trap facil Type of Tape Kinesio Tape Comments I strip PT-OP-R Modalities Start: 05/28/19 08:00 Freq: Status: Active Protocol: Document 07/02/19 08:15 SAK (Rec: 07/02/19 09:03 SAK [id number]) Electric Stimulation Electric Stimulation IFC Body Location Thoracic/Intersncap Duration (Minutes) 15 Intensity 15 Contraction Type Normal Target/Sweep Sweep Patient Position Hooklying Combined With Heat/Cold Cold Pack PT-OP-S Aquatic Treatment Start: 05/28/19 08:00 Freq: Status: Active Protocol: Document 07/06/19 11:30 LJ (Rec: 07/06/19 15:12 LJ [id number]) Aquatics Treatment Pool Entry/Exit Pool Entry/Exit Method Stairs Assistance Independent Water Walking sideways with shoulder stab Comments with elbows bent at 90 deg Sideways Water Level Chest Level Level of Assistance Verbal Cues Comments with shoulder ab/ad backward with reverse breastroke UE's Water Level Chest Level Level of Assistance Verbal Cues forward with breastroke UE's Water Level Chest Level Level of Assistance Verbal Cues Upper Extremity Exercises forward punch Body Position Standing Water Level Chest Level Equipment stretch cords Reps/Duration 15 bilat Comments cues for posture IR/ER Body Position Standing Water Level Chest Level Equipment stretch cords Reps/Duration 15 Comments cues for shoulder retraction lat pull downs Body Position Standing Water Level Chest Level Equipment stretch cords Reps/Duration 15 Comments cues for scap stab and posture ab,ad,fl,ex, hor ab/ad Body Position Standing Water Level Chest Level Equipment UE paddles Reps/Duration [address] Comments emphasis on scap stabilization Upper Extremity Stretches upper traps, cervical spine Body Position Standing Water Level Neck Level Comments small ROM all directions pec stretch Body Position Standing Water Level Chest Level Equipment UE paddles Reps/Duration 10 each side Comments scap contract while turning body wall angles with chin retraction Body Position Standing Water Level Neck Level Reps/Duration x10 Comments larger movement PT-OP-T Assessment and Plan Start: 05/28/19 08:00 Freq: Status: Active Protocol: Document 07/06/19 11:30 FLORENCIA (Rec: 07/06/19 15:12 FLORENCIA [email or web address]) Physical Therapy Assessment Goals Five Impairment QuickDash UE disability index score 95% Short Term Goal (STG) Decrease Quickdash UE disability index score to no greater than 60% STG Duration 06/28/19 Cafeteria Clerk Goal (LTG) Decrease Quickdash UE disability index score to no greater than 30% including able to reach overhead and behind his back for ADL's and usual daily activities without difficulty LTG Duration 08/28/19 Four Impairment poor scapular strength and stabilization right, dec coleen UE strength Short Term Goal (STG) Instruct in HEP for purposes of strengthening and scapular stabilization STG Duration 06/28/19 Intermediate Goal (LTG) Improve UE strength to at least 4+/5 to allow full functional use of UE's LTG Duration 08/28/19 Three Impairment pain neck, low back, right scapular region 05/20 Short Term Goal (STG) Decrease pain to no greater than 4/10 STG Duration 06/28/19 Intermediate Goal (LTG) Decrease pain LTG Duration 08/28/19 Two Impairment activity tolerance: Neck disability index score 54% Short Term Goal (STG) Decrease NDI to no greater than 40% STG Duration 06/28/19 Intermediate Goal (LTG) Decrease NDI to no greater than 20% with patient able to resume all usual activities LTG Duration 08/28/19 One Impairment activity tolerance: Oswestry disability index score 68% Short Term Goal (STG) Decrease DEBORA to no greater than 50% STG Duration 06/28/19 Cafeteria Clerk Goal (LTG) Decrease DEBORA to no greater than 20% with patient able to resume all usual activities including going for walks and hikes with dog LTG Duration 08/28/19 Assessment Summary Assessment Cues for posture but pt was able to self correct. Toward end of tx pt experienced foot and calf cramping and spent the rest of session trying to release cramps. Pt tolerated new exercises well and reported he enjoyed them. Physical Therapy Plan Frequency and Duration Frequency of Treatment 2x/Week Duration of Treatment 2 months Plan of Care Start Date 05/28/19 Plan of Care End Date 07/29/19 Therapeutic Interventions Therapeutic Interventions Aquatic Therapy Home Exercise Program Manual Therapy Neuromuscular Re-education Patient/Caregiver Education Self-Care/Home Management Soft Tissue Mobilization Taping Therapeutic Activities Therapeutic Exercises Modalities Cold Pack/Ice Massage Hot Packs Next Visit Focus/Plan Next Note Type Treatment Note Next Visit Plan Continue PT per POC.
--- NOTE | 2019-07-09 11:59 | PT.OTN ---
Current Diagnoses Radiculopathy, cervical region (07/09/19) Low back pain (07/09/19) Physical Therapy Treatment Note PT-OP-A Visit Information Start: 05/28/19 08:00 Freq: Status: Active Protocol: Document 07/09/19 08:15 SAK (Rec: 07/09/19 08:48 SAK [id number]) Out-Patient Physical Therapy Visit Information Visit Information Visit Type Treatment Note Visit Start Time 08:16 Visit Stop Time 09:14 Total Visit Minutes 58 Visit Number 10 Number of PIPE CAULKER Visits 0 Precautions Precautions no further cervical collar PT-OP-B Current Condition Start: 05/28/19 08:00 Freq: Status: Active Protocol: Document 05/28/19 08:14 SAK (Rec: 05/28/19 09:02 SAK [id number]) Current Condition History of Current Condition Onset Date 2 months Current Complaints increase in neck and right shoulder pain and weakness, LBP History of Current Condition Discharged from physical therapy following surgical fusion in March 2019 due to multiple missed appointments per PT attendance policy while this PT gone on extended vacation. Reports severe increase in pain in right scapular region right as well as an increase in his previous low back pain since therapy discontinued. Seeing Dr. Marquez soon to address LBP; states he can't even bend over or take walks especially uphill. Reports increased pain in neck and decreased function of his right UE since last seen in PT. Prior Treatments and Tests cervical spine fusion Future Testing and Treatments Planned Is scheduled to see Dr. Marquez this week regarding LBP.A Treatment Goals Patient/Caregiver Goals Decrease pain, regain functional use of right UE Prior Functional Status Baseline Function- ADL's Independent Baseline Function- Mobility Independent Baseline Function- Gait Independent without device Baseline Function- Work/School disabled Baseline Function- Recreation/Hobbies walking his dog Current Functional Impairments (Reported) Functional Limitations- ADL's independent but painful Functional Limitations- Mobility/Gait independent but limited to short distances due to pain Functional Limitations- Work/School disabled Functional Limitations- Recreation/ has been unable to take his Hobbies dog for walks Personal Factors Other Personal Factors That May Effect cognitive impairment including Therapy/Recovery decreased short term memory since recent c/s fusion surgery PT-OP-C Subjective Start: 05/28/19 08:00 Freq: Status: Active Protocol: Document 07/09/19 08:15 SAK (Rec: 07/09/19 08:48 [facility] [id number]) OP-PT Subjective Patient Comments Patient Comments No new c/o. Feeling stronger, having CT of low back today. PT-OP-K Range of Motion Start: 05/28/19 08:00 Freq: Status: Active Protocol: Document 05/28/19 08:14 [facility] (Rec: 06/01/19 16:52 [facility] [id number]) Cervical Spine Range of Motion Cervical Spine Active Flexion 47 Extension 5 Rotation Left 42 Rotation Right 37 Lateral Flexion Left 12 Lateral Flexion Right 7 ROM Limitations Soft Tissue Tightness,Bony Restriction,Pain Lumbar Spine Range of Motion Lumbar Spine Active ROM Limitations Soft Tissue Tightness,Pain Comments moderate decrease all motions with c/o pain Shoulder Goniometric Range of Motion Shoulder Right Active Shoulder ROM WFL No Testing Position Sitting Flexion 142 Extension 20 Abduction 130 External Rotation at 45 degrees 55 Abduction Internal Rotation Behind Back (text) T10 Left Active Shoulder ROM WFL Yes Internal Rotation Behind Back (text) T7 Shoulder ROM Limitations Comments slow, uncoordinated movement of right shoulder with winging of scapula noted with elevation Elbow/Forearm Range of Motion Elbow/Forearm coleen Elbow/Forearm ROM WFL Yes PT-OP-Q Treatments Start: 05/28/19 08:00 Freq: Status: Active Protocol: Document 07/09/19 08:15 [facility] (Rec: 07/09/19 08:48 [facility] [id number]) Cardio Equipment Recumbent Stepper (Sci-Fit) Duration (Minutes) 10 Resistance 2.0 Seat Position 13 Gym Equipment Cable Column (Body Solid) lat machine scap inf glide Resistance 20# Reps/Time 10x Lat pull Resistance 20# Reps/Time 10x Therapeutic Exercises Supine Exercises cervical rotation Reps/Minutes 5x shoulder hor ab Resistance 1# Reps/Minutes 10x Comments end-range stretch after 10 shoulder flex Resistance 1# Reps/Minutes 10x Comments end range stretch after 10 Prone Exercises Shldd ext Reps/Minutes 10x Shlld hor ab Reps/Minutes 10x Standing Exercises horizontal ab Resistance L1 TB Reps/Minutes 10x Body blade Standing Exercise Name coleen, unil (elbows bent) Reps/Minutes 30, 30 shoulder ER Resistance L2 TB Reps/Minutes 10x rows, shoulder ext Resistance L2 TB Reps/Minutes 10x Manual Therapy Treatment Soft Tissue Mobilization manual pec stretch] Mobilization Type Sustained Pressure Intensity/Depth Moderate Body Position Hooklying upper traps, rhomboids, levator scap Mobilization Type Myofascial Release,Rolling, Sustained Pressure,Trigger Point Release Intensity/Depth gentle Body Position sidelying, supine Taping 1 Body Location between scapula for postural correction, lower trap facil Type of Tape Kinesio Tape Comments I strip PT-OP-R Modalities Start: 05/28/19 08:00 Freq: Status: Active Protocol: Document 07/09/19 08:15 SAK (Rec: 07/09/19 08:48 SAK [id number]) Electric Stimulation Electric Stimulation IFC Body Location Thoracic/Intersncap Duration (Minutes) 15 Intensity 15 Contraction Type Normal Target/Sweep Sweep Patient Position Hooklying Combined With Heat/Cold Cold Pack PT-OP-S Aquatic Treatment Start: 05/28/19 08:00 Freq: Status: Active Protocol: Document 07/06/19 11:30 LJ (Rec: 07/06/19 15:12 LJ [id number]) Aquatics Treatment Pool Entry/Exit Pool Entry/Exit Method Stairs Assistance Independent Water Walking sideways with shoulder stab Comments with elbows bent at 90 deg Sideways Water Level Chest Level Level of Assistance Verbal Cues Comments with shoulder ab/ad backward with reverse breastroke UE's Water Level Chest Level Level of Assistance Verbal Cues forward with breastroke UE's Water Level Chest Level Level of Assistance Verbal Cues Upper Extremity Exercises forward punch Body Position Standing Water Level Chest Level Equipment stretch cords Reps/Duration 15 bilat Comments cues for posture IR/ER Body Position Standing Water Level Chest Level Equipment stretch cords Reps/Duration 15 Comments cues for shoulder retraction lat pull downs Body Position Standing Water Level Chest Level Equipment stretch cords Reps/Duration 15 Comments cues for scap stab and posture ab,ad,fl,ex, hor ab/ad Body Position Standing Water Level Chest Level Equipment UE paddles Reps/Duration [address] Comments emphasis on scap stabilization Upper Extremity Stretches upper traps, cervical spine Body Position Standing Water Level Neck Level Comments small ROM all directions pec stretch Body Position Standing Water Level Chest Level Equipment UE paddles Reps/Duration 10 each side Comments scap contract while turning body wall angles with chin retraction Body Position Standing Water Level Neck Level Reps/Duration x10 Comments larger movement PT-OP-T Assessment and Plan Start: 05/28/19 08:00 Freq: Status: Active Protocol: Document 07/09/19 08:15 SAK (Rec: 07/09/19 08:48 [facility] [id number]) Physical Therapy Assessment Goals Five Impairment QuickDash UE disability index score 95% Short Term Goal (STG) Decrease Quickdash UE disability index score to no greater than 60% STG Duration 06/28/19 Nursing Home Goal (LTG) Decrease Quickdash UE disability index score to no greater than 30% including able to reach overhead and behind his back for ADL's and usual daily activities without difficulty LTG Duration 08/28/19 Four Impairment poor scapular strength and stabilization right, dec coleen UE strength Short Term Goal (STG) Instruct in HEP for purposes of strengthening and scapular stabilization STG Duration 06/28/19 Photograph Mounter Goal (LTG) Improve UE strength to at least 4+/5 to allow full functional use of UE's LTG Duration 08/28/19 Three Impairment pain neck, low back, right scapular region 05/20 Short Term Goal (STG) Decrease pain to no greater than 4/10 STG Duration 06/28/19 Photograph Mounter Goal (LTG) Decrease pain LTG Duration 08/28/19 Two Impairment activity tolerance: Neck disability index score 54% Short Term Goal (STG) Decrease NDI to no greater than 40% STG Duration 06/28/19 Photograph Mounter Goal (LTG) Decrease NDI to no greater than 20% with patient able to resume all usual activities LTG Duration 08/28/19 One Impairment activity tolerance: Oswestry disability index score 68% Short Term Goal (STG) Decrease DEBORA to no greater than 50% STG Duration 06/28/19 Nursing Home Goal (LTG) Decrease DEBORA to no greater than 20% with patient able to resume all usual activities including going for walks and hikes with dog LTG Duration 08/28/19 Assessment Summary Assessment Improving scapular control, frequent cues for chin tuck for postural alignment with all ther ex. Physical Therapy Plan Frequency and Duration Frequency of Treatment 2x/Week Duration of Treatment 2 months Plan of Care Start Date 05/28/19 Plan of Care End Date 07/29/19 Therapeutic Interventions Therapeutic Interventions Aquatic Therapy,Home Exercise Program,Manual Therapy, Neuromuscular Re-education, Patient/Caregiver Education, Self-Care/Home Management,Soft Tissue Mobilization,Taping, Therapeutic Activities, Therapeutic Exercises Modalities Cold Pack/Ice Massage,Hot Packs Next Visit Focus/Plan Next Note Type Treatment Note
--- NOTE | 2019-07-16 09:13 | PT.OTN ---
Current Diagnoses Radiculopathy, cervical region (07/16/19) Low back pain (07/16/19) Physical Therapy Treatment Note PT-OP-A Visit Information Start: 05/28/19 08:00 Freq: Status: Active Protocol: Document 07/16/19 08:18 SAK (Rec: 07/16/19 09:05 [facility] [id number]) Out-Patient Physical Therapy Visit Information Visit Information Visit Type Treatment Note Visit Start Time 08:13 Visit Stop Time 09:14 Total Visit Minutes 62 Visit Number 11 Number of RADIO STATION MANAGER Visits 0 Precautions Precautions no further cervical collar PT-OP-B Current Condition Start: 05/28/19 08:00 Freq: Status: Active Protocol: Document 05/28/19 08:14 SAK (Rec: 05/28/19 09:02 SAK [id number]) Current Condition History of Current Condition Onset Date 2 months Current Complaints increase in neck and right shoulder pain and weakness, LBP History of Current Condition Discharged from physical therapy following surgical fusion in March 2019 due to multiple missed appointments per PT attendance policy while this PT gone on extended vacation. Reports severe increase in pain in right scapular region right as well as an increase in his previous low back pain since therapy discontinued. Seeing Dr. Marquez soon to address LBP; states he can't even bend over or take walks especially uphill. Reports increased pain in neck and decreased function of his right UE since last seen in PT. Prior Treatments and Tests cervical spine fusion Future Testing and Treatments Planned Is scheduled to see Dr. Marquez this week regarding LBP.A Treatment Goals Patient/Caregiver Goals Decrease pain, regain functional use of right UE Prior Functional Status Baseline Function- ADL's Independent Baseline Function- Mobility Independent Baseline Function- Gait Independent without device Baseline Function- Work/School disabled Baseline Function- Recreation/Hobbies walking his dog Current Functional Impairments (Reported) Functional Limitations- ADL's independent but painful Functional Limitations- Mobility/Gait independent but limited to short distances due to pain Functional Limitations- Work/School disabled Functional Limitations- Recreation/ has been unable to take his Hobbies dog for walks Personal Factors Other Personal Factors That May Effect cognitive impairment including Therapy/Recovery decreased short term memory since recent c/s fusion surgery PT-OP-C Subjective Start: 05/28/19 08:00 Freq: Status: Active Protocol: Document 07/16/19 08:18 [facility] (Rec: 07/16/19 09:05 [facility] [id number]) OP-PT Subjective Patient Comments Patient Comments Feels right shoulder improving . Sees Dr. King regarding LBP this afternoon. PT-OP-K Range of Motion Start: 05/28/19 08:00 Freq: Status: Active Protocol: Document 05/28/19 08:14 [facility] (Rec: 06/01/19 16:52 [facility] [id number]) Cervical Spine Range of Motion Cervical Spine Active Flexion 47 Extension 5 Rotation Left 42 Rotation Right 37 Lateral Flexion Left 12 Lateral Flexion Right 7 ROM Limitations Soft Tissue Tightness,Bony Restriction,Pain Lumbar Spine Range of Motion Lumbar Spine Active ROM Limitations Soft Tissue Tightness,Pain Comments moderate decrease all motions with c/o pain Shoulder Goniometric Range of Motion Shoulder Right Active Shoulder ROM WFL No Testing Position Sitting Flexion 142 Extension 20 Abduction 130 External Rotation at 45 degrees 55 Abduction Internal Rotation Behind Back (text) T10 Left Active Shoulder ROM WFL Yes Internal Rotation Behind Back (text) T7 Shoulder ROM Limitations Comments slow, uncoordinated movement of right shoulder with winging of scapula noted with elevation Elbow/Forearm Range of Motion Elbow/Forearm coleen Elbow/Forearm ROM WFL Yes PT-OP-Q Treatments Start: 05/28/19 08:00 Freq: Status: Active Protocol: Document 07/16/19 08:18 [facility] (Rec: 07/16/19 09:05 [facility] [id number]) Cardio Equipment Recumbent Stepper (Sci-Fit) Duration (Minutes) 10 Resistance 2.0 Seat Position 13 Gym Equipment Cable Column (Body Solid) lat machine scap inf glide Resistance 30# Reps/Time 10x Lat pull Resistance 30# Reps/Time 10x Therapeutic Exercises Prone Exercises Shlld hor ab Resistance 1# Reps/Minutes 10x Sitting Exercises shoulder abd Resistance 1# Reps/Minutes 10x overhead press Resistance 1#, 2# weights Reps/Minutes 10x2 Standing Exercises horizontal ab Resistance L2 TB Reps/Minutes 10x Body blade Standing Exercise Name unil, elbows bent Reps/Minutes 30, 30 Comments fwd/bck, IR/ER Sh ER Resistance L2 TB Reps/Minutes 10x rows, shoulder ext Resistance L2 TB Reps/Minutes 10x Manual Therapy Treatment Taping 1 Body Location between scapula for postural correction, lower trap facil Type of Tape Kinesio Tape Comments I strips: 3 squares long (2), 6 squares long (2) PT-OP-R Modalities Start: 05/28/19 08:00 Freq: Status: Active Protocol: Document 07/16/19 08:18 SAK (Rec: 07/16/19 09:13 SAK [id number]) Electric Stimulation Electric Stimulation IFC Body Location right scap Duration (Minutes) 15 Intensity 15 Contraction Type Normal Target/Sweep Sweep Patient Position Hooklying Combined With Heat/Cold Cold Pack PT-OP-S Aquatic Treatment Start: 05/28/19 08:00 Freq: Status: Active Protocol: Document 07/06/19 11:30 LJ (Rec: 07/06/19 15:12 LJ [id number]) Aquatics Treatment Pool Entry/Exit Pool Entry/Exit Method Stairs Assistance Independent Water Walking sideways with shoulder stab Comments with elbows bent at 90 deg Sideways Water Level Chest Level Level of Assistance Verbal Cues Comments with shoulder ab/ad backward with reverse breastroke UE's Water Level Chest Level Level of Assistance Verbal Cues forward with breastroke UE's Water Level Chest Level Level of Assistance Verbal Cues Upper Extremity Exercises forward punch Body Position Standing Water Level Chest Level Equipment stretch cords Reps/Duration 15 bilat Comments cues for posture IR/ER Body Position Standing Water Level Chest Level Equipment stretch cords Reps/Duration 15 Comments cues for shoulder retraction lat pull downs Body Position Standing Water Level Chest Level Equipment stretch cords Reps/Duration 15 Comments cues for scap stab and posture ab,ad,fl,ex, hor ab/ad Body Position Standing Water Level Chest Level Equipment UE paddles Reps/Duration [address] Comments emphasis on scap stabilization Upper Extremity Stretches upper traps, cervical spine Body Position Standing Water Level Neck Level Comments small ROM all directions pec stretch Body Position Standing Water Level Chest Level Equipment UE paddles Reps/Duration 10 each side Comments scap contract while turning body wall angles with chin retraction Body Position Standing Water Level Neck Level Reps/Duration x10 Comments larger movement PT-OP-T Assessment and Plan Start: 05/28/19 08:00 Freq: Status: Active Protocol: Document 07/16/19 08:18 SAK (Rec: 07/16/19 09:05 SAK [id number]) Physical Therapy Assessment Goals Five Impairment QuickDash UE disability index score 95% Short Term Goal (STG) Decrease Quickdash UE disability index score to no greater than 60% STG Duration 06/28/19 Fish Hatchery Specialist Goal (LTG) Decrease Quickdash UE disability index score to no greater than 30% including able to reach overhead and behind his back for ADL's and usual daily activities without difficulty LTG Duration 08/28/19 Four Impairment poor scapular strength and stabilization right, dec coleen UE strength Short Term Goal (STG) Instruct in HEP for purposes of strengthening and scapular stabilization STG Duration 06/28/19 Fish Hatchery Specialist Goal (LTG) Improve UE strength to at least 4+/5 to allow full functional use of UE's LTG Duration 08/28/19 Three Impairment pain neck, low back, right scapular region 05/20 Short Term Goal (STG) Decrease pain to no greater than 4/10 STG Duration 06/28/19 Fish Hatchery Specialist Goal (LTG) Decrease pain LTG Duration 08/28/19 Two Impairment activity tolerance: Neck disability index score 54% Short Term Goal (STG) Decrease NDI to no greater than 40% STG Duration 06/28/19 Detention Goal (LTG) Decrease NDI to no greater than 20% with patient able to resume all usual activities LTG Duration 08/28/19 One Impairment activity tolerance: Oswestry disability index score 68% Short Term Goal (STG) Decrease DEBORA to no greater than 50% STG Duration 06/28/19 Detention Goal (LTG) Decrease DEBORA to no greater than 20% with patient able to resume all usual activities including going for walks and hikes with dog LTG Duration 08/28/19 Assessment Summary Assessment Tolerated progression of ex well, scapular control continues to improve right with patient reporting less pain. Fatigued with ex progression. Physical Therapy Plan Frequency and Duration Frequency of Treatment 2x/Week Duration of Treatment 2 months Plan of Care Start Date 05/28/19 Plan of Care End Date 07/29/19 Therapeutic Interventions Therapeutic Interventions Aquatic Therapy,Home Exercise Program,Manual Therapy, Neuromuscular Re-education, Patient/Caregiver Education, Self-Care/Home Management,Soft Tissue Mobilization,Taping, Therapeutic Activities, Therapeutic Exercises Modalities Cold Pack/Ice Massage,Hot Packs
--- NOTE | 2019-07-23 14:41 | PT-OP ANOTE ---
DNS for PT appointment
--- NOTE | 2019-07-27 16:25 | PT.OTN ---
Current Diagnoses Radiculopathy, cervical region (07/27/19) Low back pain (07/27/19) Physical Therapy Treatment Note PT-OP-A Visit Information Start: 05/28/19 08:00 Freq: Status: Active Protocol: Document 07/27/19 15:01 [facility] (Rec: 07/27/19 15:09 [facility] [id number]) Out-Patient Physical Therapy Visit Information Visit Information Visit Type Aquatic Treatment Note Visit Start Time 12:30 Visit Stop Time 13:15 Total Visit Minutes 45 Visit Number 12 Number of CAN VACUUM TESTER Visits 0 Evaluation Information Evaluation Date 05/28/19 Precautions Precautions no further cervical collar PT-OP-B Current Condition Start: 05/28/19 08:00 Freq: Status: Active Protocol: Document 05/28/19 08:14 [facility] (Rec: 05/28/19 09:02 [facility] [id number]) Current Condition History of Current Condition Onset Date 2 months Current Complaints increase in neck and right shoulder pain and weakness, LBP History of Current Condition Discharged from physical therapy following surgical fusion in March 2019 due to multiple missed appointments per PT attendance policy while this PT gone on extended vacation. Reports severe increase in pain in right scapular region right as well as an increase in his previous low back pain since therapy discontinued. Seeing Dr. Marquez soon to address LBP; states he can't even bend over or take walks especially uphill. Reports increased pain in neck and decreased function of his right UE since last seen in PT. Prior Treatments and Tests cervical spine fusion Future Testing and Treatments Planned Is scheduled to see Dr. Marquez this week regarding LBP.A Treatment Goals Patient/Caregiver Goals Decrease pain, regain functional use of right UE Prior Functional Status Baseline Function- ADL's Independent Baseline Function- Mobility Independent Baseline Function- Gait Independent without device Baseline Function- Work/School disabled Baseline Function- Recreation/Hobbies walking his dog Current Functional Impairments (Reported) Functional Limitations- ADL's independent but painful Functional Limitations- Mobility/Gait independent but limited to short distances due to pain Functional Limitations- Work/School disabled Functional Limitations- Recreation/ has been unable to take his Hobbies dog for walks Personal Factors Other Personal Factors That May Effect cognitive impairment including Therapy/Recovery decreased short term memory since recent c/s fusion surgery PT-OP-C Subjective Start: 05/28/19 08:00 Freq: Status: Active Protocol: Document 07/27/19 15:01 [facility] (Rec: 07/27/19 15:09 [facility] [id number]) OP-PT Subjective Patient Comments Patient Comments Sees Dr. King again in October , consider further fusion T-S. PT-OP-K Range of Motion Start: 05/28/19 08:00 Freq: Status: Active Protocol: Document 05/28/19 08:14 [facility] (Rec: 06/01/19 16:52 [facility] [id number]) Cervical Spine Range of Motion Cervical Spine Active Flexion 47 Extension 5 Rotation Left 42 Rotation Right 37 Lateral Flexion Left 12 Lateral Flexion Right 7 ROM Limitations Soft Tissue Tightness,Bony Restriction,Pain Lumbar Spine Range of Motion Lumbar Spine Active ROM Limitations Soft Tissue Tightness,Pain Comments moderate decrease all motions with c/o pain Shoulder Goniometric Range of Motion Shoulder Right Active Shoulder ROM WFL No Testing Position Sitting Flexion 142 Extension 20 Abduction 130 External Rotation at 45 degrees 55 Abduction Internal Rotation Behind Back (text) T10 Left Active Shoulder ROM WFL Yes Internal Rotation Behind Back (text) T7 Shoulder ROM Limitations Comments slow, uncoordinated movement of right shoulder with winging of scapula noted with elevation Elbow/Forearm Range of Motion Elbow/Forearm coleen Elbow/Forearm ROM WFL Yes PT-OP-Q Treatments Start: 05/28/19 08:00 Freq: Status: Active Protocol: Document 07/16/19 08:18 [facility] (Rec: 07/16/19 09:05 [facility] [id number]) Cardio Equipment Recumbent Stepper (Sci-Fit) Duration (Minutes) 10 Resistance 2.0 Seat Position 13 Gym Equipment Cable Column (Body Solid) lat machine scap inf glide Resistance 30# Reps/Time 10x Lat pull Resistance 30# Reps/Time 10x Therapeutic Exercises Prone Exercises Shlld hor ab Resistance 1# Reps/Minutes 10x Sitting Exercises shoulder abd Resistance 1# Reps/Minutes 10x overhead press Resistance 1#, 2# weights Reps/Minutes 10x2 Standing Exercises horizontal ab Resistance L2 TB Reps/Minutes 10x Body blade Standing Exercise Name unil, elbows bent Reps/Minutes 30, 30 Comments fwd/bck, IR/ER Sh ER Resistance L2 TB Reps/Minutes 10x rows, shoulder ext Resistance L2 TB Reps/Minutes 10x Manual Therapy Treatment Taping 1 Body Location between scapula for postural correction, lower trap facil Type of Tape Kinesio Tape Comments I strips: 3 squares long (2), 6 squares long (2) PT-OP-R Modalities Start: 05/28/19 08:00 Freq: Status: Active Protocol: Document 07/16/19 08:18 [facility] (Rec: 07/16/19 09:13 [facility] [id number]) Electric Stimulation Electric Stimulation IFC Body Location right scap Duration (Minutes) 15 Intensity 15 Contraction Type Normal Target/Sweep Sweep Patient Position Hooklying Combined With Heat/Cold Cold Pack PT-OP-S Aquatic Treatment Start: 05/28/19 08:00 Freq: Status: Active Protocol: Document 07/27/19 15:01 [facility] (Rec: 07/27/19 15:09 [facility] [id number]) Aquatics Treatment Pool Entry/Exit Pool Entry/Exit Method Stairs Assistance Independent Water Walking march kick Water Level Chest Level Walking Equipment UE paddles Level of Assistance Verbal Cues Comments UE held stationary march Water Level Chest Level Walking Equipment UE paddles Level of Assistance Verbal Cues Comments UE held stationary sideways with shoulder stab Walking Equipment UE paddles Comments with elbows bent at 90 deg Sideways Water Level Chest Level Walking Equipment UE paddles Level of Assistance Verbal Cues Comments paddles held stationary backward with reverse breastroke UE's Water Level Chest Level Walking Equipment UE paddles Level of Assistance Verbal Cues Comments UE held stationary forward with breastroke UE's Water Level Chest Level Walking Equipment UE paddles Level of Assistance Verbal Cues Comments UE held stationary Upper Extremity Exercises D1 PNF Details with visual tracking Body Position Standing Water Level Chest Level IR/ER Body Position Standing Water Level Chest Level Equipment stretch cords Reps/Duration 15 Comments cues for shoulder retraction ab,ad,fl,ex, hor ab/ad Body Position Standing Water Level Chest Level Equipment UE paddles Reps/Duration [address] Comments emphasis on scap stabilization Upper Extremity Stretches upper traps, cervical spine Body Position Standing Water Level Neck Level Comments small ROM all directions pec stretch Details walk with UE drag Body Position Standing [place] Activities [place] Activities Bicycle,Cross Country,Hip Abduction/Adduction Other Activities with emphasis on UE movements, scapular stab Equipment floatation belt Other Deep water pull downs Body Position Standing Water Level [place] Equipment small barbells Reps/Duration 10x PT-OP-T Assessment and Plan Start: 05/28/19 08:00 Freq: Status: Active Protocol: Document 07/27/19 15:01 [facility] (Rec: 07/27/19 15:09 [facility] [id number]) Physical Therapy Assessment Goals Five Impairment QuickDash UE disability index score 95% Short Term Goal (STG) Decrease Quickdash UE disability index score to no greater than 60% STG Duration 06/28/19 [facility] Living Goal (LTG) Decrease Quickdash UE disability index score to no greater than 30% including able to reach overhead and behind his back for ADL's and usual daily activities without difficulty LTG Duration 08/28/19 Four Impairment poor scapular strength and stabilization right, dec coleen UE strength Short Term Goal (STG) Instruct in HEP for purposes of strengthening and scapular stabilization STG Duration 06/28/19 [facility] Living Goal (LTG) Improve UE strength to at least 4+/5 to allow full functional use of UE's LTG Duration 08/28/19 Three Impairment pain neck, low back, right scapular region 7/10 Short Term Goal (STG) Decrease pain to no greater than 4/10 STG Duration 06/28/19 [facility] Living Goal (LTG) Decrease pain LTG Duration 08/28/19 Two Impairment activity tolerance: Neck disability index score 54% Short Term Goal (STG) Decrease NDI to no greater than 40% STG Duration 06/28/19 [facility] Specialist Goal (LTG) Decrease NDI to no greater than 20% with patient able to resume all usual activities LTG Duration 08/28/19 One Impairment activity tolerance: Oswestry disability index score 68% Short Term Goal (STG) Decrease DEBORA to no greater than 50% STG Duration 06/28/19 Seo Specialist Goal (LTG) Decrease DEBORA to no greater than 20% with patient able to resume all usual activities including going for walks and hikes with dog LTG Duration 08/28/19 Assessment Summary Assessment [place] to progress aquatic ex with addition of paddles for resistance, UE PNF with cervical rotation. Physical Therapy Plan Frequency and Duration Frequency of Treatment 2x/Week Duration of Treatment 2 months Plan of Care Start Date 05/28/19 Plan of Care End Date 07/29/19 Therapeutic Interventions Therapeutic Interventions Aquatic Therapy,Home Exercise Program,Manual Therapy, Neuromuscular Re-education, Patient/Caregiver Education, Self-Care/Home Management,Soft Tissue Mobilization,Taping, Therapeutic Activities, Therapeutic Exercises Modalities Cold Pack/Ice Massage,Hot Packs Next Visit Focus/Plan Next Note Type Treatment Note Next Visit Plan Continue to progress as tolerated with ROM, strengthening, stabilization.
--- NOTE | 2019-07-30 08:15 | PT.OTN ---
Current Diagnoses Radiculopathy, cervical region (07/30/19) Low back pain (07/30/19) Physical Therapy Treatment Note PT-OP-A Visit Information Start: 05/28/19 08:00 Freq: Status: Active Protocol: Document 07/30/19 08:16 [facility] (Rec: 07/30/19 09:04 [facility] [id number]) Out-Patient Physical Therapy Visit Information Visit Information Visit Type Re-Evaluation Visit Start Time 08:15 Visit Stop Time 09:11 Total Visit Minutes 56 Visit Number 13 Number of [employer] Visits 0 Evaluation Information Evaluation Date 05/28/19 Precautions Precautions no further cervical collar PT-OP-B Current Condition Start: 05/28/19 08:00 Freq: Status: Active Protocol: Document 05/28/19 08:14 [facility] (Rec: 05/28/19 09:02 [facility] [id number]) Current Condition History of Current Condition Onset Date 2 months Current Complaints increase in neck and right shoulder pain and weakness, LBP History of Current Condition Discharged from physical therapy following surgical fusion in March 2019 due to multiple missed appointments per PT attendance policy while this PT gone on extended vacation. Reports severe increase in pain in right scapular region right as well as an increase in his previous low back pain since therapy discontinued. Seeing Dr. Marquez soon to address LBP; states he can't even bend over or take walks especially uphill. Reports increased pain in neck and decreased function of his right UE since last seen in PT. Prior Treatments and Tests cervical spine fusion Future Testing and Treatments Planned Is scheduled to see Dr. Marquez this week regarding LBP.A Treatment Goals Patient/Caregiver Goals Decrease pain, regain functional use of right UE Prior Functional Status Baseline Function- ADL's Independent Baseline Function- Mobility Independent Baseline Function- Gait Independent without device Baseline Function- Work/School disabled Baseline Function- Recreation/Hobbies walking his dog Current Functional Impairments (Reported) Functional Limitations- ADL's independent but painful Functional Limitations- Mobility/Gait independent but limited to short distances due to pain Functional Limitations- Work/School disabled Functional Limitations- Recreation/ has been unable to take his Hobbies dog for walks Personal Factors Other Personal Factors That May Effect cognitive impairment including Therapy/Recovery decreased short term memory since recent c/s fusion surgery PT-OP-C Subjective Start: 05/28/19 08:00 Freq: Status: Active Protocol: Document 07/30/19 08:16 [facility] (Rec: 07/30/19 09:04 [facility] [id number]) OP-PT Subjective Patient Comments Patient Comments Reports an exercise in aquatic PT last session work up some muscles in a good way. States he avoids doing any activities that might increase his LBP such as gardening, mowing lawn, riding bike. Nerve pain right scapula improved but still spikes up to a 6. Left wrist pain persists with patient reports poorly functional without use of brace; may request order for PT or order to address wrist. PT-OP-K Range of Motion Start: 05/28/19 08:00 Freq: Status: Active Protocol: Document 07/30/19 08:16 [facility] (Rec: 07/30/19 09:04 [facility] [id number]) Cervical Spine Range of Motion Cervical Spine Active Flexion 54 Extension 27 Rotation Left 58 Rotation Right 54 Lateral Flexion Left 14 Lateral Flexion Right 20 ROM Limitations Soft Tissue Tightness,Bony Restriction,Pain Lumbar Spine Range of Motion Lumbar Spine Active Testing Position Standing Flexion 40 Extension 0 Rotation Left 15 Rotation Right 25 Lateral Flexion Left 28 Lateral Flexion Right 34 ROM Limitations Soft Tissue Tightness,Pain Comments pain endraing Shoulder Goniometric Range of Motion Shoulder Right Active Shoulder ROM WFL No Testing Position Sitting Flexion 154 Extension 32 Abduction 142 External Rotation at 45 degrees 55 Abduction Internal Rotation Behind Back (text) T9 Left Active Shoulder ROM WFL Yes Internal Rotation Behind Back (text) T7 PT-OP-Q Treatments Start: 05/28/19 08:00 Freq: Status: Active Protocol: Document 07/30/19 08:16 [facility] (Rec: 07/30/19 09:04 [facility] [id number]) Cardio Equipment Recumbent Stepper (Sci-Fit) Duration (Minutes) 10 Resistance 2.0 Seat Position 13 Therapeutic Exercises Supine Exercises TrA with ball squeeze Reps/Minutes 10x TrA Reps/Minutes 10x cervical rotation Reps/Minutes 5x shoulder hor ab Resistance 1# Reps/Minutes 10x Comments end-range stretch after 10 shoulder flex Resistance 1# Reps/Minutes 10x Comments end range stretch after 10 serratus punch Resistance 1# Reps/Minutes 2x10 Prone Exercises Shldd ext Reps/Minutes 10x Shlld hor ab Resistance 1# Reps/Minutes 10x Manual Therapy Treatment Other Other Manual Treatments reassessment: ROM, strength PT-OP-R Modalities Start: 05/28/19 08:00 Freq: Status: Active Protocol: Document 07/30/19 08:16 [facility] (Rec: 07/30/19 09:04 [facility] [id number]) Electric Stimulation Electric Stimulation IFC Body Location right scap Duration (Minutes) 15 Intensity 15 Contraction Type Normal Target/Sweep Sweep Patient Position Hooklying Combined With Heat/Cold Hot Pack PT-OP-S Aquatic Treatment Start: 05/28/19 08:00 Freq: Status: Active Protocol: Document 07/27/19 15:01 [facility] (Rec: 07/27/19 15:09 [facility] [id number]) Aquatics Treatment Pool Entry/Exit Pool Entry/Exit Method Stairs Assistance Independent Water Walking january kick Water Level Chest Level Walking Equipment UE paddles Level of Assistance Verbal Cues Comments UE held stationary march Water Level Chest Level Walking Equipment UE paddles Level of Assistance Verbal Cues Comments UE held stationary sideways with shoulder stab Walking Equipment UE paddles Comments with elbows bent at 90 deg Sideways Water Level Chest Level Walking Equipment UE paddles Level of Assistance Verbal Cues Comments paddles held stationary backward with reverse breastroke UE's Water Level Chest Level Walking Equipment UE paddles Level of Assistance Verbal Cues Comments UE held stationary forward with breastroke UE's Water Level Chest Level Walking Equipment UE paddles Level of Assistance Verbal Cues Comments UE held stationary Upper Extremity Exercises D1 PNF Details with visual tracking Body Position Standing Water Level Chest Level IR/ER Body Position Standing Water Level Chest Level Equipment stretch cords Reps/Duration 15 Comments cues for shoulder retraction ab,ad,fl,ex, hor ab/ad Body Position Standing Water Level Chest Level Equipment UE paddles Reps/Duration [address] Comments emphasis on scap stabilization Upper Extremity Stretches upper traps, cervical spine Body Position Standing Water Level Neck Level Comments small ROM all directions pec stretch Details walk with UE drag Body Position Standing [place] Activities [place] Activities Bicycle,Cross [place],Hip Abduction/Adduction Other Activities with emphasis on UE movements, scapular stab Equipment floatation belt Other Deep water pull downs Body Position Standing Water Level [place] Equipment small barbells Reps/Duration 10x PT-OP-T Assessment and Plan Start: 05/28/19 08:00 Freq: Status: Active Protocol: Document 07/30/19 08:16 [facility] (Rec: 07/27/19 15:09 [facility] [id number]) Physical Therapy Assessment Goals Five Impairment QuickDash UE disability index score 95% Short Term Goal (STG) Decrease Quickdash UE disability index score to no greater than 60% 07/30/19: good goal progress STG Duration [facility] Goal (LTG) Decrease Quickdash UE disability index score to no greater than 30% including able to reach overhead and behind his back for ADL's and usual daily activities without difficulty 07/30/19: good goal progress LTG Duration 08/28/19 Four Impairment poor scapular strength and stabilization right, dec coleen UE strength Short Term Goal (STG) Instruct in HEP for purposes of strengthening and scapular stabilization 07/30/19:Tolerating continued progression of ther ex STG Duration GOAL MET Disability Rater Goal (LTG) Improve UE strength to at least 4+/5 to allow full functional use of UE's 07/30/19: good progress LTG Duration 08/28/19 Three Impairment pain neck, low back, right scapular region 05/20 Short Term Goal (STG) Decrease pain to no greater than 4/10 07/30/19: neck pain 3/10, scapular pain 3-6/10, LBP 3-7/ 10 STG Duration 06/28/19 Nursing Home Goal (LTG) Decrease pain to no greater than 2/10 07/30/19: neck pain 3/10, scapular pain 3-6/10, LBP 3-7/ 10 LTG Duration 08/28/19 Two Impairment activity tolerance: Neck disability index score 54% Short Term Goal (STG) Decrease NDI to no greater than 40% 07/30/19: decreased to 42% STG Duration 06/28/19 Disability Rater Goal (LTG) Decrease NDI to no greater than 20% with patient able to resume all usual activities LTG Duration 08/28/19 One Impairment activity tolerance: Oswestry disability index score 68% Short Term Goal (STG) Decrease DEBORA to no greater than 50% 07/30/19: DEBORA STG Duration 06/28/19 Disability Rater Goal (LTG) Decrease DEBORA to no greater than 20% with patient able to resume all usual activities including going for walks and hikes with dog LTG Duration 08/28/19 Assessment Summary Assessment Patient continues to progress with shoulder and scapular strength and stabilization, decreased neck pain, and increased range of motion in cervical spine. Increasing focus on LBP as it remains limiting factor, though pain decreases after PT. Would benefit from further PT to help him fully achieve the above goals and return to a more active lifestyle. He is highly motivated. Physical Therapy Plan Frequency and Duration Frequency of Treatment 2x/Week Duration of Treatment 2 months Plan of Care Start Date 07/30/19 Plan of Care End Date 08/28/19 Therapeutic Interventions Therapeutic Interventions Aquatic Therapy,Home Exercise Program,Manual Therapy, Neuromuscular Re-education, Patient/Caregiver Education, Self-Care/Home Management,Soft Tissue Mobilization,Taping, Therapeutic Activities, Therapeutic Exercises Modalities Cold Pack/Ice Massage,Hot Packs Next Visit Focus/Plan Next Note Type Treatment Note Next Visit Plan Continue to progress as tolerated with ROM, strengthening, stabilization; land and aquatic-based Pain management with manual therapy and modalities as indicated
--- NOTE | 2019-07-30 09:34 | PT.OTRE ---
Current Diagnoses Radiculopathy, cervical region (07/30/19) Low back pain (07/30/19) Past Medical History (Last Reviewed 04/03/19 @ 16:03 by Johanny Cuadra DO) Anxiety (Chronic Unknown) Aortic stenosis (Chronic) BPH (benign prostatic hyperplasia) (Chronic Unknown) Chronic pain syndrome (Chronic Unknown) Chronic renal insufficiency (Chronic Unknown) Coronary artery disease (Suspected Unknown) Depression (Chronic Unknown) Diabetes (Chronic Unknown) GERD (gastroesophageal reflux disease) (Chronic Unknown) History of ETOH abuse (Resolved Unknown) Hyperlipemia (Chronic Unknown) Hypertension (Chronic Unknown) Low back pain (Chronic Unknown) Peripheral neuropathy (Chronic Unknown) Rheumatoid arthritis (Chronic Unknown) Surgical History (Last Reviewed 04/03/19 @ 16:03 by Johanny Cuadra DO) History of back surgery (Resolved ~2012) S/P cervical spinal fusion (Acute) Status post hernia repair Status post knee surgery Visit Care Team Role Provider Type Johanny Cuadra DO Attending Provider Physician Primary Care Provider Specialty: [facility] Address: [address] [place] [address], [address], [facility] Email: [email or web address] Physical Therapy Re-Evaluation PT-OP-A Visit Information Start: 05/28/19 08:00 Freq: Status: Active Protocol: Document 07/30/19 08:16 [facility]IQUIS (Rec: 07/30/19 09:04 [facility] [id number]) Out-Patient Physical Therapy Visit Information Visit Information Visit Type Re-Evaluation Visit Start Time 08:15 Visit Stop Time 09:11 Total Visit Minutes 56 Visit Number 13 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 Reports severe increase in pain in right scapular region right as well as an increase in his previous low back pain since therapy discontinued. Seeing Dr. Marquez soon to address LBP; states he can't even bend over or take walks especially uphill. Reports increased pain in neck and decreased function of his right UE since last seen in PT. Prior Treatments and Tests cervical spine fusion Future Testing and Treatments Planned Is scheduled to see Dr. Marquez this week regarding LBP.A Treatment Goals Patient/Caregiver Goals Decrease pain, regain functional use of right UE Prior Functional Status Baseline Function- ADL's Independent Baseline Function- Mobility Independent Baseline Function- Gait Independent without device Baseline Function- Work/School disabled Baseline Function- Recreation/Hobbies walking his dog Current Functional Impairments (Reported) Functional Limitations- ADL's independent but painful Functional Limitations- Mobility/Gait independent but limited to short distances due to pain Functional Limitations- Work/School disabled Functional Limitations- Recreation/ has been unable to take his Hobbies dog for walks Personal Factors Other Personal Factors That May Effect cognitive impairment including Therapy/Recovery decreased short term memory since recent c/s fusion surgery PT-OP-C Subjective Start: 05/28/19 08:00 Freq: Status: Active Protocol: Document 07/30/19 08:16 [facility] (Rec: 07/30/19 09:04 [facility] [id number]) OP-PT Subjective Patient Comments Patient Comments Reports an exercise in aquatic PT last session work up some muscles in a good way. States he avoids doing any activities that might increase his LBP such as gardening, mowing lawn, riding bike. Nerve pain right scapula improved but still spikes up to a 6. Left wrist pain persists with patient reports poorly functional without use of brace; may request order for PT or order to address wrist. PT-OP-K Range of Motion Start: 05/28/19 08:00 Freq: Status: Active Protocol: Document 07/30/19 08:16 [facility] (Rec: 07/30/19 09:04 [facility] [id number]) Cervical Spine Range of Motion Cervical Spine Active Flexion 54 Extension 27 Rotation Left 58 Rotation Right 54 Lateral Flexion Left 14 Lateral Flexion Right 20 ROM Limitations Soft Tissue Tightness,Bony Restriction,Pain Lumbar Spine Range of Motion Lumbar Spine Active Testing Position Standing Flexion 40 Extension 0 Rotation Left 15 Rotation Right 25 Lateral Flexion Left 28 Lateral Flexion Right 34 ROM Limitations Soft Tissue Tightness,Pain Comments pain endraing Shoulder Goniometric Range of Motion Shoulder Measured in Degrees Right Active Shoulder ROM WFL No Testing Position Sitting Flexion 154 Extension 32 Abduction 142 External Rotation at 45 degrees 55 Abduction Internal Rotation Behind Back (text) T9 Left Active Shoulder ROM WFL Yes Internal Rotation Behind Back (text) T7 PT-OP-Q Treatments Start: 05/28/19 08:00 Freq: Status: Active Protocol: Document 07/30/19 08:16 [facility] (Rec: 07/30/19 09:04 [facility] [id number]) Cardio Equipment Recumbent Stepper (Sci-Fit) Duration (Minutes) 10 Resistance 2.0 Seat Position 13 Therapeutic Exercises Supine Exercises TrA with ball squeeze Reps/Minutes 10x TrA Reps/Minutes 10x cervical rotation Reps/Minutes 5x shoulder hor ab Resistance 1# Reps/Minutes 10x Comments end-range stretch after 10 shoulder flex Resistance 1# Reps/Minutes 10x Comments end range stretch after 10 serratus punch Resistance 1# Reps/Minutes 2x10 Prone Exercises Shldd ext Reps/Minutes 10x Shlld hor ab Resistance 1# Reps/Minutes 10x Manual Therapy Treatment Other Other Manual Treatments reassessment: ROM, strength PT-OP-R Modalities Start: 05/28/19 08:00 Freq: Status: Active Protocol: Document 07/30/19 08:16 [facility] (Rec: 07/30/19 09:04 [facility] [id number]) Electric Stimulation Electric Stimulation IFC Body Location right scap Duration (Minutes) 15 Intensity 15 Contraction Type Normal Target/Sweep Sweep Patient Position Hooklying Combined With Heat/Cold Hot Pack PT-OP-T Assessment and Plan Start: 05/28/19 08:00 Freq: Status: Active Protocol: Document 07/30/19 08:16 [facility] (Rec: 07/27/19 15:09 [facility] [id number]) Physical Therapy Assessment Goals Five Impairment QuickDash UE disability index score 95% Short Term Goal (STG) Decrease Quickdash UE disability index score to no greater than 60% 07/30/19: good goal progress STG Duration MET Focuser Goal (LTG) Decrease Quickdash UE disability index score to no greater than 30% including able to reach overhead and behind his back for ADL's and usual daily activities without difficulty 07/30/19: good goal progress LTG Duration 08/28/19 Four Impairment poor scapular strength and stabilization right, dec coleen UE strength Short Term Goal (STG) Instruct in HEP for purposes of strengthening and scapular stabilization 07/30/19:Tolerating continued progression of ther ex STG Duration GOAL MET Jail Goal (LTG) Improve UE strength to at least 4+/5 to allow full functional use of UE's 07/30/19: good progress LTG Duration 08/28/19 Three Impairment pain neck, low back, right scapular region 05/20 Short Term Goal (STG) Decrease pain to no greater than 4/10 07/30/19: neck pain 3/10, scapular pain 3-6/10, LBP 3-7/ 10 STG Duration 06/28/19 Jail Goal (LTG) Decrease pain to no greater than 2/10 07/30/19: neck pain 3/10, scapular pain 3-6/10, LBP 3-7/ 10 LTG Duration 08/28/19 Two Impairment activity tolerance: Neck disability index score 54% Short Term Goal (STG) Decrease NDI to no greater than 40% 07/30/19: decreased to 42% STG Duration 06/28/19 Focuser Goal (LTG) Decrease NDI to no greater than 20% with patient able to resume all usual activities LTG Duration 08/28/19 One Impairment activity tolerance: Oswestry disability index score 68% Short Term Goal (STG) Decrease DEBORA to no greater than 50% 07/30/19: DEBORA STG Duration 06/28/19 Focuser Goal (LTG) Decrease DEBORA to no greater than 20% with patient able to resume all usual activities including going for walks and hikes with dog LTG Duration 08/28/19 Assessment Summary Assessment Patient continues to progress with shoulder and scapular strength and stabilization, decreased neck pain, and increased range of motion in cervical spine. Increasing focus on LBP as it remains limiting factor, though pain decreases after PT. Would benefit from further PT to help him fully achieve the above goals and return to a more active lifestyle. He is highly motivated. Physical Therapy Plan Frequency and Duration Frequency of Treatment 2x/Week Duration of Treatment 2 months Plan of Care Start Date 07/30/19 Plan of Care End Date 08/28/19 Therapeutic Interventions Therapeutic Interventions Aquatic Therapy,Home Exercise Program,Manual Therapy, Neuromuscular Re-education, Patient/Caregiver Education, Self-Care/Home Management,Soft Tissue Mobilization,Taping, Therapeutic Activities, Therapeutic Exercises Modalities Cold Pack/Ice Massage,Hot Packs Next Visit Focus/Plan Next Note Type Treatment Note Next Visit Plan Continue to progress as tolerated with ROM, strengthening, stabilization; land and aquatic-based Pain management with manual therapy and modalities as indicated
--- NOTE | 2019-08-03 13:15 | PT.OTN ---
Current Diagnoses Radiculopathy, cervical region (08/03/19) Low back pain (08/03/19) Physical Therapy Treatment Note PT-OP-A Visit Information Start: 05/28/19 08:00 Freq: Status: Active Protocol: Document 08/03/19 12:30 CLB (Rec: 08/03/19 15:48 CLB [id number]) Out-Patient Physical Therapy Visit Information Visit Information Visit Type Aquatic Treatment Note Visit Start Time 12:30 Visit Stop Time 13:15 Total Visit Minutes 45 Visit Number 14 Number of FORENSIC SOCIAL WORKER Visits 1 PT-OP-B Current Condition Start: 05/28/19 08:00 Freq: Status: Active Protocol: Document 05/28/19 08:14 SAK (Rec: 05/28/19 09:02 SAK [id number]) Current Condition History of Current Condition Onset Date 2 months Current Complaints increase in neck and right shoulder pain and weakness, LBP History of Current Condition Discharged from physical therapy following surgical fusion in March 2019 due to multiple missed appointments per PT attendance policy while this PT gone on extended vacation. Reports severe increase in pain in right scapular region right as well as an increase in his previous low back pain since therapy discontinued. Seeing Dr. Marquez soon to address LBP; states he can't even bend over or take walks especially uphill. Reports increased pain in neck and decreased function of his right UE since last seen in PT. Prior Treatments and Tests cervical spine fusion Future Testing and Treatments Planned Is scheduled to see Dr. Marquez this week regarding LBP.A Treatment Goals Patient/Caregiver Goals Decrease pain, regain functional use of right UE Prior Functional Status Baseline Function- ADL's Independent Baseline Function- Mobility Independent Baseline Function- Gait Independent without device Baseline Function- Work/School disabled Baseline Function- Recreation/Hobbies walking his dog Current Functional Impairments (Reported) Functional Limitations- ADL's independent but painful Functional Limitations- Mobility/Gait independent but limited to short distances due to pain Functional Limitations- Work/School disabled Functional Limitations- Recreation/ has been unable to take his Hobbies dog for walks Personal Factors Other Personal Factors That May Effect cognitive impairment including Therapy/Recovery decreased short term memory since recent c/s fusion surgery PT-OP-C Subjective Start: 05/28/19 08:00 Freq: Status: Active Protocol: Document 08/03/19 12:30 CLB (Rec: 08/03/19 15:48 CLB [id number]) OP-PT Subjective Patient Comments Patient Comments Pt reports not doing much over the weekend and he is very stiff today. PT-OP-K Range of Motion Start: 05/28/19 08:00 Freq: Status: Active Protocol: Document 07/30/19 08:16 SAK (Rec: 07/30/19 09:04 SAK [id number]) Cervical Spine Range of Motion Cervical Spine Active Flexion 54 Extension 27 Rotation Left 58 Rotation Right 54 Lateral Flexion Left 14 Lateral Flexion Right 20 ROM Limitations Soft Tissue Tightness,Bony Restriction,Pain Lumbar Spine Range of Motion Lumbar Spine Active Testing Position Standing Flexion 40 Extension 0 Rotation Left 15 Rotation Right 25 Lateral Flexion Left 28 Lateral Flexion Right 34 ROM Limitations Soft Tissue Tightness,Pain Comments pain endraing Shoulder Goniometric Range of Motion Shoulder Right Active Shoulder ROM WFL No Testing Position Sitting Flexion 154 Extension 32 Abduction 142 External Rotation at 45 degrees 55 Abduction Internal Rotation Behind Back (text) T9 Left Active Shoulder ROM WFL Yes Internal Rotation Behind Back (text) T7 PT-OP-Q Treatments Start: 05/28/19 08:00 Freq: Status: Active Protocol: Document 07/30/19 08:16 SAK (Rec: 07/30/19 09:04 SAK [id number]) Cardio Equipment Recumbent Stepper (Sci-Fit) Duration (Minutes) 10 Resistance 2.0 Seat Position 13 Therapeutic Exercises Supine Exercises TrA with ball squeeze Reps/Minutes 10x TrA Reps/Minutes 10x cervical rotation Reps/Minutes 5x shoulder hor ab Resistance 1# Reps/Minutes 10x Comments end-range stretch after 10 shoulder flex Resistance 1# Reps/Minutes 10x Comments end range stretch after 10 serratus punch Resistance 1# Reps/Minutes 2x10 Prone Exercises Shldd ext Reps/Minutes 10x Shlld hor ab Resistance 1# Reps/Minutes 10x Manual Therapy Treatment Other Other Manual Treatments reassessment: ROM, strength PT-OP-R Modalities Start: 05/28/19 08:00 Freq: Status: Active Protocol: Document 07/30/19 08:16 SAK (Rec: 07/30/19 09:04 SAK [id number]) Electric Stimulation Electric Stimulation IFC Body Location right scap Duration (Minutes) 15 Intensity 15 Contraction Type Normal Target/Sweep Sweep Patient Position Hooklying Combined With Heat/Cold Hot Pack PT-OP-S Aquatic Treatment Start: 05/28/19 08:00 Freq: Status: Active Protocol: Document 08/03/19 12:30 CLB (Rec: 08/03/19 15:48 CLB [id number]) Aquatics Treatment Pool Entry/Exit Pool Entry/Exit Method Stairs Assistance Independent Water Walking march kick Water Level Chest Level Walking Equipment UE paddles Level of Assistance Verbal Cues Comments UE held stationary january Water Level Chest Level Walking Equipment UE paddles Level of Assistance Verbal Cues Comments UE held stationary sideways with shoulder stab Walking Equipment UE paddles Comments with elbows bent at 90 deg Sideways Water Level Chest Level Walking Equipment UE paddles Level of Assistance Verbal Cues Comments paddles held stationary backward with reverse breastroke UE's Water Level Chest Level Walking Equipment UE paddles Level of Assistance Verbal Cues Comments UE held stationary forward with breastroke UE's Water Level Chest Level Walking Equipment UE paddles Level of Assistance Verbal Cues Comments UE held stationary Upper Extremity Exercises D1 PNF Details with visual tracking Body Position Standing Water Level Chest Level forward punch Body Position Standing Water Level Chest Level Equipment stretch cords Reps/Duration 15 bilat Comments cues for posture IR/ER Body Position Standing Water Level Chest Level Equipment stretch cords Reps/Duration 15 Comments cues for shoulder retraction lat pull downs Body Position Standing Water Level Chest Level Equipment stretch cords Reps/Duration 15 Comments cues for scap stab and posture ab,ad,fl,ex, hor ab/ad Body Position Standing Water Level Chest Level Equipment UE paddles Reps/Duration [address] Comments emphasis on scap stabilization Upper Extremity Stretches upper traps, cervical spine Body Position Standing Water Level Neck Level Comments small ROM all directions [place] Activities [place] Activities Bicycle,Cross Country,Hip Abduction/Adduction Other Activities with emphasis on UE movements, scapular stab Equipment floatation belt Other Deep water pull downs Body Position Standing Water Level [place] Equipment small barbells Reps/Duration 10x PT-OP-T Assessment and Plan Start: 05/28/19 08:00 Freq: Status: Active Protocol: Document 08/03/19 12:30 CLB (Rec: 08/03/19 15:48 CLB [id number]) Physical Therapy Assessment Goals Five Impairment QuickDash UE disability index score 95% Short Term Goal (STG) Decrease Quickdash UE disability index score to no greater than 60% 07/30/19: good goal progress STG Duration MET Marketing Information Analyst Goal (LTG) Decrease Quickdash UE disability index score to no greater than 30% including able to reach overhead and behind his back for ADL's and usual daily activities without difficulty 07/30/19: good goal progress LTG Duration 08/28/19 Four Impairment poor scapular strength and stabilization right, dec coleen UE strength Short Term Goal (STG) Instruct in HEP for purposes of strengthening and scapular stabilization 07/30/19:Tolerating continued progression of ther ex STG Duration GOAL MET Marketing Information Analyst Goal (LTG) Improve UE strength to at least 4+/5 to allow full functional use of UE's 07/30/19: good progress LTG Duration 08/28/19 Three Impairment pain neck, low back, right scapular region 05/20 Short Term Goal (STG) Decrease pain to no greater than 4/10 07/30/19: neck pain 3/10, scapular pain 3-6/10, LBP 3-7/ 10 STG Duration 06/28/19 Senior Care Goal (LTG) Decrease pain to no greater than 2/10 07/30/19: neck pain 3/10, scapular pain 3-6/10, LBP 3-7/ 10 LTG Duration 08/28/19 Two Impairment activity tolerance: Neck disability index score 54% Short Term Goal (STG) Decrease NDI to no greater than 40% 07/30/19: decreased to 42% STG Duration 06/28/19 Marketing Information Analyst Goal (LTG) Decrease NDI to no greater than 20% with patient able to resume all usual activities LTG Duration 08/28/19 One Impairment activity tolerance: Oswestry disability index score 68% Short Term Goal (STG) Decrease DEBORA to no greater than 50% 07/30/19: DEBORA STG Duration 06/28/19 Senior Care Goal (LTG) Decrease DEBORA to no greater than 20% with patient able to resume all usual activities including going for walks and hikes with dog LTG Duration 08/28/19 Assessment Summary Assessment Pt arrived to pool early to loosen up before tx session. Pt had increased pain on lower back with deep water hip abd/ add requiring cues for small pain free movements. Physical Therapy Plan Frequency and Duration Frequency of Treatment 2x/Week Duration of Treatment 2 months Plan of Care Start Date 07/30/19 Plan of Care End Date 08/28/19 Next Visit Focus/Plan Next Visit Plan Continue to progress as tolerated with ROM, strengthening, stabilization; land and aquatic-based Pain management with manual therapy and modalities as indicated
--- NOTE | 2019-08-05 17:26 | PT.OTN ---
Current Diagnoses Radiculopathy, cervical region (08/05/19) Low back pain (08/05/19) Physical Therapy Treatment Note PT-OP-A Visit Information Start: 05/28/19 08:00 Freq: Status: Active Protocol: Document 08/05/19 17:01 LJ (Rec: 08/05/19 17:26 LJ [id number]) Out-Patient Physical Therapy Visit Information Visit Information Visit Type Treatment Note Visit Start Time 08:15 Visit Stop Time 09:00 Total Visit Minutes 45 Visit Number 15 Number of TUBE TURNER Visits 2 PT-OP-B Current Condition Start: 05/28/19 08:00 Freq: Status: Active Protocol: Document 05/28/19 08:14 SAK (Rec: 05/28/19 09:02 SAK [id number]) Current Condition History of Current Condition Onset Date 2 months Current Complaints increase in neck and right shoulder pain and weakness, LBP History of Current Condition Discharged from physical therapy following surgical fusion in March 2019 due to multiple missed appointments per PT attendance policy while this PT gone on extended vacation. Reports severe increase in pain in right scapular region right as well as an increase in his previous low back pain since therapy discontinued. Seeing Dr. Marquez soon to address LBP; states he can't even bend over or take walks especially uphill. Reports increased pain in neck and decreased function of his right UE since last seen in PT. Prior Treatments and Tests cervical spine fusion Future Testing and Treatments Planned Is scheduled to see Dr. Marquez this week regarding LBP.A Treatment Goals Patient/Caregiver Goals Decrease pain, regain functional use of right UE Prior Functional Status Baseline Function- ADL's Independent Baseline Function- Mobility Independent Baseline Function- Gait Independent without device Baseline Function- Work/School disabled Baseline Function- Recreation/Hobbies walking his dog Current Functional Impairments (Reported) Functional Limitations- ADL's independent but painful Functional Limitations- Mobility/Gait independent but limited to short distances due to pain Functional Limitations- Work/School disabled Functional Limitations- Recreation/ has been unable to take his Hobbies dog for walks Personal Factors Other Personal Factors That May Effect cognitive impairment including Therapy/Recovery decreased short term memory since recent c/s fusion surgery PT-OP-C Subjective Start: 05/28/19 08:00 Freq: Status: Active Protocol: Document 08/05/19 17:01 LJ (Rec: 08/05/19 17:26 LJ [email or web address]) OP-PT Subjective Patient Comments Patient Comments Pt came in with wrist brace on LLE. States he was opening a jar and strained his wrist too much and now his elbow hurts. PT-OP-K Range of Motion Start: 05/28/19 08:00 Freq: Status: Active Protocol: Document 07/30/19 08:16 SAK (Rec: 07/30/19 09:04 SAK [id number]) Cervical Spine Range of Motion Cervical Spine Active Flexion 54 Extension 27 Rotation Left 58 Rotation Right 54 Lateral Flexion Left 14 Lateral Flexion Right 20 ROM Limitations Soft Tissue Tightness,Bony Restriction,Pain Lumbar Spine Range of Motion Lumbar Spine Active Testing Position Standing Flexion 40 Extension 0 Rotation Left 15 Rotation Right 25 Lateral Flexion Left 28 Lateral Flexion Right 34 ROM Limitations Soft Tissue Tightness,Pain Comments pain endraing Shoulder Goniometric Range of Motion Shoulder Right Active Shoulder ROM WFL No Testing Position Sitting Flexion 154 Extension 32 Abduction 142 External Rotation at 45 degrees 55 Abduction Internal Rotation Behind Back (text) T9 Left Active Shoulder ROM WFL Yes Internal Rotation Behind Back (text) T7 PT-OP-Q Treatments Start: 05/28/19 08:00 Freq: Status: Active Protocol: Document 08/05/19 17:01 FLORENCIA (Rec: 08/05/19 17:26 [email or web address]) Cardio Equipment Recumbent Stepper (Sci-Fit) Duration (Minutes) 10 Resistance 2.0 Seat Position 13 Therapeutic Exercises Supine Exercises bridges w/level 1 band Reps/Minutes 10 Comments cues for segmental lifting and lowering shoulder hor ab Resistance 1# Reps/Minutes 10x Comments end-range stretch after 10 Sidelying Exercises clamshells w/ levle 1 band Reps/Minutes 10 bilat Comments pt fatigued-unable to do another set reach and roll Reps/Minutes 10x Comments verbal and manual cues Standing Exercises lat pull down with level 2 band Reps/Minutes 12 bilat Comments wt shifting to opp leg w/toe touch balance stnading opposite arm leg lift Reps/Minutes 12 bilat Comments against wall lifting opposite UE and LE off wall PT-OP-R Modalities Start: 05/28/19 08:00 Freq: Status: Active Protocol: Document 07/30/19 08:16 SAK (Rec: 07/30/19 09:04 SAK [id number]) Electric Stimulation Electric Stimulation IFC Body Location right scap Duration (Minutes) 15 Intensity 15 Contraction Type Normal Target/Sweep Sweep Patient Position Hooklying Combined With Heat/Cold Hot Pack PT-OP-S Aquatic Treatment Start: 05/28/19 08:00 Freq: Status: Active Protocol: Document 08/03/19 12:30 CLB (Rec: 08/03/19 15:48 CLB [id number]) Aquatics Treatment Pool Entry/Exit Pool Entry/Exit Method Stairs Assistance Independent Water Walking march kick Water Level Chest Level Walking Equipment UE paddles Level of Assistance Verbal Cues Comments UE held stationary march Water Level Chest Level Walking Equipment UE paddles Level of Assistance Verbal Cues Comments UE held stationary sideways with shoulder stab Walking Equipment UE paddles Comments with elbows bent at 90 deg Sideways Water Level Chest Level Walking Equipment UE paddles Level of Assistance Verbal Cues Comments paddles held stationary backward with reverse breastroke UE's Water Level Chest Level Walking Equipment UE paddles Level of Assistance Verbal Cues Comments UE held stationary forward with breastroke UE's Water Level Chest Level Walking Equipment UE paddles Level of Assistance Verbal Cues Comments UE held stationary Upper Extremity Exercises D1 PNF Details with visual tracking Body Position Standing Water Level Chest Level forward punch Body Position Standing Water Level Chest Level Equipment stretch cords Reps/Duration 15 bilat Comments cues for posture IR/ER Body Position Standing Water Level Chest Level Equipment stretch cords Reps/Duration 15 Comments cues for shoulder retraction lat pull downs Body Position Standing Water Level Chest Level Equipment stretch cords Reps/Duration 15 Comments cues for scap stab and posture ab,ad,fl,ex, hor ab/ad Body Position Standing Water Level Chest Level Equipment UE paddles Reps/Duration [address] Comments emphasis on scap stabilization Upper Extremity Stretches upper traps, cervical spine Body Position Standing Water Level Neck Level Comments small ROM all directions [place] Activities [place] Activities Bicycle,Cross Country,Hip Abduction/Adduction Other Activities with emphasis on UE movements, scapular stab Equipment floatation belt Other Deep water pull downs Body Position Standing Water Level [place] Equipment small barbells Reps/Duration 10x PT-OP-T Assessment and Plan Start: 05/28/19 08:00 Freq: Status: Active Protocol: Document 08/05/19 17:01 LJ (Rec: 08/05/19 17:26 LJ [id number]) Physical Therapy Assessment Goals Five Impairment QuickDash UE disability index score 95% Short Term Goal (STG) Decrease Quickdash UE disability index score to no greater than 60% 07/30/19: good goal progress STG Duration MET Retirement Goal (LTG) Decrease Quickdash UE disability index score to no greater than 30% including able to reach overhead and behind his back for ADL's and usual daily activities without difficulty 07/30/19: good goal progress LTG Duration 08/28/19 Four Impairment poor scapular strength and stabilization right, dec coleen UE strength Short Term Goal (STG) Instruct in HEP for purposes of strengthening and scapular stabilization 07/30/19:Tolerating continued progression of ther ex STG Duration GOAL MET Ramp Manager Goal (LTG) Improve UE strength to at least 4+/5 to allow full functional use of UE's 07/30/19: good progress LTG Duration 08/28/19 Three Impairment pain neck, low back, right scapular region 05/20 Short Term Goal (STG) Decrease pain to no greater than 4/10 07/30/19: neck pain 3/10, scapular pain 3-6/10, LBP 3-7/ 10 STG Duration 06/28/19 Retirement Goal (LTG) Decrease pain to no greater than 2/10 07/30/19: neck pain 3/10, scapular pain 3-6/10, LBP 3-7/ 10 LTG Duration 08/28/19 Two Impairment activity tolerance: Neck disability index score 54% Short Term Goal (STG) Decrease NDI to no greater than 40% 07/30/19: decreased to 42% STG Duration 06/28/19 Retirement Goal (LTG) Decrease NDI to no greater than 20% with patient able to resume all usual activities LTG Duration 08/28/19 One Impairment activity tolerance: Oswestry disability index score 68% Short Term Goal (STG) Decrease DEBORA to no greater than 50% 07/30/19: DEBORA STG Duration 06/28/19 Retirement Goal (LTG) Decrease DEBORA to no greater than 20% with patient able to resume all usual activities including going for walks and hikes with dog LTG Duration 08/28/19 Assessment Summary Assessment Pt fatigued with bridging and clamshell exercises. Showed significant difficulty with banance, strength and coordination with standing opposite leg arm lifting off wall and lat pulldown Physical Therapy Plan Frequency and Duration Frequency of Treatment 2x/Week Duration of Treatment 2 months Plan of Care Start Date 07/30/19 Plan of Care End Date 08/28/19 Therapeutic Interventions Therapeutic Interventions Aquatic Therapy,Home Exercise Program,Manual Therapy, Neuromuscular Re-education, Patient/Caregiver Education, Self-Care/Home Management,Soft Tissue Mobilization,Taping, Therapeutic Activities, Therapeutic Exercises Modalities Cold Pack/Ice Massage,Hot Packs Next Visit Focus/Plan Next Visit Plan Continue to progress as tolerated with ROM, strengthening, coordination, and stabilization; land and aquatic-based Pain management with manual therapy and modalities as indicated
--- NOTE | 2019-10-05 07:58 | PT.OPDS ---
Current Diagnoses Radiculopathy, cervical region (08/05/19) Low back pain (08/05/19) Visit Care Team Role Provider Type Johanny Cuadra DO Attending Provider Physician Primary Care Provider Specialty: Family Practice Address: [address] [place] [address], [address], [facility] Email: [email or web address] Visit Number Visit Number 15 Discharge Summary PT-OP-B Current Condition Start: 05/28/19 08:00 Freq: Status: Active Protocol: Document 05/28/19 08:14 SAK (Rec: 05/28/19 09:02 SAK [id number]) Current Condition History of Current Condition Onset Date 2 months Current Complaints increase in neck and right shoulder pain and weakness, LBP History of Current Condition Discharged from physical therapy following surgical fusion in March 2019 due to multiple missed appointments per PT attendance policy while this PT gone on extended vacation. Reports severe increase in pain in right scapular region right as well as an increase in his previous low back pain since therapy discontinued. Seeing Dr. Marquez soon to address LBP; states he can't even bend over or take walks especially uphill. Reports increased pain in neck and decreased function of his right UE since last seen in PT. Prior Treatments and Tests cervical spine fusion Future Testing and Treatments Planned Is scheduled to see Dr. Marquez this week regarding LBP.A Treatment Goals Patient/Caregiver Goals Decrease pain, regain functional use of right UE Prior Functional Status Baseline Function- ADL's Independent Baseline Function- Mobility Independent Baseline Function- Gait Independent without device Baseline Function- Work/School disabled Baseline Function- Recreation/Hobbies walking his dog Current Functional Impairments (Reported) Functional Limitations- ADL's independent but painful Functional Limitations- Mobility/Gait independent but limited to short distances due to pain Functional Limitations- Work/School disabled Functional Limitations- Recreation/ has been unable to take his Hobbies dog for walks Personal Factors Other Personal Factors That May Effect cognitive impairment including Therapy/Recovery decreased short term memory since recent c/s fusion surgery PT-OP-C Subjective Start: 05/28/19 08:00 Freq: Status: Active Protocol: Document 08/05/19 17:01 LJ (Rec: 08/05/19 17:26 LJ [id number]) OP-PT Subjective Patient Comments Patient Comments Pt came in with wrist brace on LLE. States he was opening a jar and strained his wrist too much and now his elbow hurts. PT-OP-K Range of Motion Start: 05/28/19 08:00 Freq: Status: Active Protocol: Document 07/30/19 08:16 [facility] (Rec: 07/30/19 09:04 [facility] [id number]) Cervical Spine Range of Motion Cervical Spine Active Flexion 54 Extension 27 Rotation Left 58 Rotation Right 54 Lateral Flexion Left 14 Lateral Flexion Right 20 ROM Limitations Soft Tissue Tightness,Bony Restriction,Pain Lumbar Spine Range of Motion Lumbar Spine Active Testing Position Standing Flexion 40 Extension 0 Rotation Left 15 Rotation Right 25 Lateral Flexion Left 28 Lateral Flexion Right 34 ROM Limitations Soft Tissue Tightness,Pain Comments pain endraing Shoulder Goniometric Range of Motion Shoulder Right Active Shoulder ROM WFL No Testing Position Sitting Flexion 154 Extension 32 Abduction 142 External Rotation at 45 degrees 55 Abduction Internal Rotation Behind Back (text) T9 Left Active Shoulder ROM WFL Yes Internal Rotation Behind Back (text) T7 PT-OP-T Assessment and Plan Start: 05/28/19 08:00 Freq: Status: Active Protocol: Document 10/05/19 07:56 [facility] (Rec: 10/05/19 07:58 [facility] [id number]) Physical Therapy Plan Discharge Physical Therapy Discharge Reasons No Longer Attending PT
== END 2019-10-13 12:35 ==
LOC: PHYS 08:15
PROVIDERS: PCP Family Medicine; Visit Provider Family Medicine
DX: M54.12 Radiculopathy, cervical region (principal); M54.5 Low back pain
CPT/HCPCS: 95992; 97010; 97014; 97110; 97112; 97113; 97140; 97162; 97535; G0283

== ENCOUNTER → 2019-12-21 09:32 | Outpatient (CLI) | payer MEDICARE, OTHER, SELFPAY ==
[2018-04-29 17:17] VITALS: BMI 25.2
[2019-12-21 10:39] LABS: Hematocrit 33.3 % (41-53); Hemoglobin 11.3 g/dL (13.5-17.5); Mean Corpuscular HGB Conc 34.1 % (30-36); Mean Corpuscular Hemoglobin 31.5 PG (26-34); Mean Corpuscular Volume 92.5 fL (80-100); Platelet Count 150 X10^3/uL (150-400); Red Cell Distribution Width 13.4 % (11.6-14.8); White Blood Cell Count 4.9 X10^3/uL (4.5-11.0)
[2019-12-21 10:43] LABS: Hemoglobin A1C% w Est Avg Glu 5.9 % (4.0-6.0)
[2019-12-21 11:16] LABS: Alanine Aminotransferase 36 IU/L (<50); Albumin 4.3 g/dL (3.5-5.0); Albumin Globulin Ratio 1.6 (1.0-2.8); Alkaline Phosphatase 90 U/L (38-126); Aspartate Aminotransferase 44 IU/L (17-59); BUN Creatinine Ratio 27.5 (6-22); Bilirubin Total 0.5 mg/dL (0.2-1.3); Blood Urea Nitrogen 33 mg/dL (9-20); Calcium 9.3 mg/dL (8.4-10.2); Carbon Dioxide 27 mmol/L (22-32); Chloride 99 mmol/L (98-107); Cholesterol 131 mg/dL (140-199); Estimated Glomerular Filt Rate > 60.0 mL/min (>60); Globulin 2.7 g/dL (1.7-4.1); Glucose 144 mg/dL (80-110); HDL Cholesterol 70 mg/dL (40-60); HEMOLYSIS < 15 (0-50); LDL Cholesterol Calculated 49 mg/dL (<100); Potassium 5.5 mmol/L (3.4-5.1); Sodium 135 mmol/L (137-145); Triglycerides 58 mg/dL (35-150)
[2019-12-21 11:19] LABS: Rheumatoid Factor 17.8 IU/mL (<12.0)
[2019-12-21 11:54] LABS: Neutrophils Absolute Manual 2009 /uL (3000-5900); RBC Morphology Normal Morphology; Total Cells Counted 100
== END ==
PROVIDERS: PCP Family Medicine; Referring Provider Nurse Practitioner; Visit Provider Nurse Practitioner
DX: Z51.81 Encounter for therapeutic drug level monitoring (principal); I10 Essential (primary) hypertension; E11.42 Type 2 diabetes mellitus with diabetic polyneuropathy; I77.810 Thoracic aortic ectasia; Q23.1 Congenital insufficiency of aortic valve; I65.23 Occlusion and stenosis of bilateral carotid arteries
CPT/HCPCS: 36415; 80053; 80061; 83036; 85025; 86430

== ENCOUNTER → 2019-12-25 06:57 | Outpatient (CLI) | payer MEDICARE, OTHER, SELFPAY ==
[2018-04-29 17:17] VITALS: BMI 25.2
[2019-12-25 08:28] LABS: BUN Creatinine Ratio 21.8 (6-22); Blood Urea Nitrogen 24 mg/dL (9-20); Calcium 9.2 mg/dL (8.4-10.2); Carbon Dioxide 26 mmol/L (22-32); Chloride 101 mmol/L (98-107); Estimated Glomerular Filt Rate > 60.0 mL/min (>60); Glucose 154 mg/dL (80-110); HEMOLYSIS < 15 (0-50); Potassium 4.5 mmol/L (3.4-5.1); Sodium 135 mmol/L (137-145)
== END ==
PROVIDERS: PCP Family Medicine; Referring Provider Nurse Practitioner; Visit Provider Nurse Practitioner
DX: I10 Essential (primary) hypertension (principal)
CPT/HCPCS: 36415; 80048

== ENCOUNTER 2019-12-28 15:15 | Outpatient (RCR) | payer MEDICARE, OTHER, SELFPAY ==
[2018-04-29 17:17] VITALS: BMI 25.2
--- NOTE | 2019-10-05 09:07 | PT.OIE ---
Current Diagnoses Radiculopathy, cervical region (10/12/19) Low back pain (10/12/19) Past Medical History (Last Reviewed 04/03/19 @ 16:03 by Johanny Cuadra DO) Anxiety (Chronic Unknown) Aortic stenosis (Chronic) BPH (benign prostatic hyperplasia) (Chronic Unknown) Chronic pain syndrome (Chronic Unknown) Chronic renal insufficiency (Chronic Unknown) Coronary artery disease (Suspected Unknown) Depression (Chronic Unknown) Diabetes (Chronic Unknown) GERD (gastroesophageal reflux disease) (Chronic Unknown) History of ETOH abuse (Resolved Unknown) Hyperlipemia (Chronic Unknown) Hypertension (Chronic Unknown) Low back pain (Chronic Unknown) Peripheral neuropathy (Chronic Unknown) Rheumatoid arthritis (Chronic Unknown) Past Surgical History (Last Reviewed 04/03/19 @ 16:03 by Johanny Cuadra DO) History of back surgery (Resolved ~2012) S/P cervical spinal fusion (Acute) Status post hernia repair Status post knee surgery Visit Care Team Role Provider Type Johanny Cuadra DO Attending Provider Physician Primary Care Provider Specialty: [facility] Address: [address] [place] [address], [address], [facility] Email: [email or web address] Physical Therapy Initial Evaluation PT-OP-A Visit Information Start: 10/05/19 09:06 Freq: Status: Active Protocol: Document 10/05/19 09:07 [facility] (Rec: 10/07/19 09:12 [facility] [id number]) Out-Patient Physical Therapy Visit Information Visit Information Visit Type Initial Evaluation Visit Start Time 09:00 Visit Stop Time 09:45 Total Visit Minutes 45 Visit Number 1 Number of TREE TOPPER Visits 0 Evaluation Information Evaluation Date 10/05/19 Precautions Precautions prior lumbar and cervical fusions PT-OP-B Current Condition Start: 10/05/19 09:06 Freq: Status: Active Protocol: Document 10/05/19 09:07 [facility] (Rec: 10/05/19 09:43 SAK [id number]) Current Condition History of Current Condition Onset Date years Current Complaints LBP History of Current Condition Patient reports he took a break from PT due to having a hard time attending PT consistently. Reports neck has recovered well, but returns to PT with c/o LBP. Reports severe pain especially with standing, walking, prolonged sitting. Only decreases with laying down. Reports also sharp pain into left scapular region. Is anticipating lumbar surgery. Prior Treatments and Tests Spinal fusion, LBP, cervical fusion Future Testing and Treatments Planned Sees Dr. King 10/16/19 to discuss back surgery Treatment Goals Patient/Caregiver Goals Decrease pain, be able to do usual activities without pain. Prior Functional Status Baseline Function- ADL's Independent Baseline Function- Mobility Independent Baseline Function- Gait independent, no pain Baseline Function- Recreation/Hobbies fishing without pain Current Functional Impairments (Reported) Functional Limitations- ADL's painful Functional Limitations- Mobility/Gait decreased distance, painful Functional Limitations- Recreation/ Painful to sit and tie flies, Hobbies fish PT-OP-C Subjective Start: 10/05/19 09:06 Freq: Status: Active Protocol: Document 10/05/19 09:07 [facility] (Rec: 10/12/19 14:11 [facility] [id number]) Patient Questionnaires Neck Disability Index Neck Disability Index Impairment 40 to 59% Impaired (Score 20- 29) Oswestry Low Back Index Oswestry Score 58 OP-PT Pain Assessment Pain Assessment Grid Paper Pain Assessment Grid Completed Yes Location bilateral lumbar spine Description Aching,Burning,Pressure, Radiating,Tender,Tightness Frequency Frequent Pain Aggravating Factors Activity,Standing,Sitting, Bending,Lifting Pain Alleviating Factors Inactivity,Lying Supine,Aqua Therapy PT-OP-G Mobility & Gait Start: 10/05/19 09:06 Freq: Status: Active Protocol: Document 10/05/19 09:07 [facility] (Rec: 10/12/19 14:11 [facility] [id number]) OP Mobility Evaluation Bed Mobility Rolling log roll reviewed Functional Movements Lifting and Carrying not tested today due to high pain level Squats poor body mechanics PT-OP-J Posture/Palpation/Skin Start: 10/05/19 09:06 Freq: Status: Active Protocol: Document 10/05/19 09:07 [facility] (Rec: 10/12/19 14:11 [facility] [id number]) Posture Evaluation Position Sitting Head/C-Spine Posture C-Spine Flattened T-Spine Posture Increased Kyphosis L-Spine Posture Increased Lordosis Shoulder Posture (L) Rounded,(R) Rounded,(L) Forward,(R) Forward,(R) Elevated Scapula Posture (R) Protracted,(R) Elevated Palpation Assessment Location cervical spine Palpation Findings Soft Tissue Tightness, Tenderness Palpation Details decreased muscle bulk left thoracolumbar spine as compared to right. PT-OP-K Range of Motion Start: 10/05/19 09:06 Freq: Status: Active Protocol: Document 10/05/19 09:07 [facility] (Rec: 10/12/19 14:11 [facility] [id number]) Lumbar Spine Range of Motion Lumbar Spine Active Testing Position Standing ROM Limitations Soft Tissue Tightness,Pain Comments moderate decrease all motions with c/o pain Hip Goniometric Range of Motion Hip coleen Hip ROM WFL No Testing Position Supine Flexion w/Knee Flexed 100 Straight Leg Raise 55 Extension 0 Internal Rotation 20 External Rotation 45 Hip ROM Limitations Hip ROM Limitations Soft Tissue Tightness,Muscle Weakness PT-OP-L Special Tests Start: 10/05/19 09:06 Freq: Status: Active Protocol: Document 10/05/19 09:07 [facility] (Rec: 10/12/19 14:11 [facility] [id number]) Special Tests Lumbar Spine Special Tests Straight Leg Raise Test Results negative Prone Press Up Test Results negative Slump Test Results negative PT-OP-M Strength Start: 10/05/19 09:06 Freq: Status: Active Protocol: Document 10/05/19 09:07 [facility] (Rec: 10/12/19 14:11 [facility] [id number]) Trunk Strength Trunk Manual Muscle Testing Flexion 4- Good- Extension 4- Good- Hip Strength Hip Manual Muscle Testing Right Flexion (L2) 4- Good- Extension (S1) 3+ Fair+ Abduction 4 Good External Rotation 3+ Fair+ Internal Rotation 4- Good- Left Flexion (L2) 4- Good- Extension (S1) 3+ Fair+ Abduction 4- Good- External Rotation 3+ Fair+ Internal Rotation 4- Good- Knee Strength Knee Manual Muscle Testing coleen Flexion (S2) 5 Normal Extension (L3) 4 Good Ankle/Foot Strength Ankle and Foot Manual Muscle Testing Right Dorsiflexion (L4) 4- Good- Plantarflexion (S1) 4 Good Left Dorsiflexion (L4) 4 Good Plantarflexion (S1) 4 Good PT-OP-Q Treatments Start: 10/05/19 09:06 Freq: Status: Active Protocol: Document 10/05/19 09:07 [facility] (Rec: 10/12/19 14:11 [facility] [id number]) Self-Care/Home Management Treatment Education Patient Education Body Mechanics,Home Exercise Program,Posture PT-OP-T Assessment and Plan Start: 10/05/19 09:06 Freq: Status: Active Protocol: Document 10/05/19 09:07 [facility] (Rec: 10/07/19 09:47 [facility] [id number]) Physical Therapy Assessment Rehab Potential Rehabilitation Potential Good Evaluation Complexity Number of Personal Factors/Comorbidities 1-2 Number of Body Systems Impaired 3 Clinical Presentation at Evaluation Evolving Impairments Impairments Activity Tolerance,Pain, Posture,Strength Goals Three Impairment LBP 7/10 Short Term Goal (STG) Decrease LBP to no greater than 5/10 with usual activities STG Duration 11/16/19 Residential Goal (LTG) Decrease LBP to no greater than 3/10 with usual activities LTG Duration 01/05/10 Two Impairment decreased activity tolerance Oswestry 58% Short Term Goal (STG) Decrease Oswestry Score to no greater than 45% STG Duration 11/16/19 Residential Goal (LTG) Decrease Osweestry Score to no greater than 25% LTG Duration 01/05/20 One Impairment weakness LE's and core Short Term Goal (STG) Patient able to tolerate 45 min land-based exercises for the purpose of strengthening and core stabilization without an increase in pain or c/o excess fatigue STG Duration 11/16/19 Educational Speech Language Clinician Goal (LTG) Patient to be independent and compliant with HEP LTG Duration 01/05/20 Assessment Summary Assessment Patient presents with function -limiting LBP with weakness throughout his core and LE's. His functional activity tolerance has decreased as a result. He would benefit from physical therapy for strengthening, pain management , manual therapy and modalities as needed to decrease his pain, improve his strength and core stabilization, and return him to a more active lifestyle including the ability to do his household tasks, sit and tie flies and the ability to return to fishing. Physical Therapy Plan Frequency and Duration Frequency of Treatment 2x/Week Duration of Treatment 12 wks Plan of Care Start Date 10/05/19 Therapeutic Interventions Therapeutic Interventions Aquatic Therapy,Home Exercise Program,Manual Therapy, Neuromuscular Re-education, Patient/Caregiver Education, Self-Care/Home Management,Soft Tissue Mobilization,Taping, Therapeutic Activities, Therapeutic Exercises Modalities Cold Pack/Ice Massage,Electric Stimulation,Hot Packs, Ultrasound Next Visit Focus/Plan Next Note Type Treatment Note Next Visit Plan Review HEP, progress with ther ex for core stabilization, strengthening, flexibility
--- NOTE | 2019-10-05 09:07 | PT.OPPOC ---
Current Diagnoses Radiculopathy, cervical region (10/12/19) Low back pain (10/12/19) Visit Care Team Role Provider Type Johanny Cuadra DO Attending Provider Physician Primary Care Provider Specialty: Family Practice Address: [address] [place] [address], [address], [address] Email: [email or web address] Plan Of Care PT-OP-T Assessment and Plan Start: 10/05/19 09:06 Freq: Status: Active Protocol: Document 10/05/19 09:07 CHIQUIS (Rec: 10/07/19 09:47 [facility] [id number]) Physical Therapy Assessment Rehab Potential Rehabilitation Potential Good Evaluation Complexity Number of Personal Factors/Comorbidities 1-2 Number of Body Systems Impaired 3 Clinical Presentation at Evaluation Evolving Impairments Impairments Activity Tolerance,Pain, Posture,Strength Goals Three Impairment LBP 7/10 Short Term Goal (STG) Decrease LBP to no greater than 5/10 with usual activities STG Duration 11/16/19 Bridal Stylist Sales Consultant Goal (LTG) Decrease LBP to no greater than 3/10 with usual activities LTG Duration 01/05/10 Two Impairment decreased activity tolerance Oswestry 58% Short Term Goal (STG) Decrease Oswestry Score to no greater than 45% STG Duration 11/16/19 Bridal Stylist Sales Consultant Goal (LTG) Decrease Osweestry Score to no greater than 25% LTG Duration 01/05/20 One Impairment weakness LE's and core Short Term Goal (STG) Patient able to tolerate 45 min land-based exercises for the purpose of strengthening and core stabilization without an increase in pain or c/o excess fatigue STG Duration 11/16/19 Prison Goal (LTG) Patient to be independent and compliant with HEP LTG Duration 01/05/20 Assessment Summary Assessment Patient presents with function -limiting LBP with weakness throughout his core and LE's. His functional activity tolerance has decreased as a result. He would benefit from physical therapy for strengthening, pain management , manual therapy and modalities as needed to decrease his pain, improve his strength and core stabilization, and return him to a more active lifestyle including the ability to do his household tasks, sit and tie flies and the ability to return to fishing. Physical Therapy Plan Frequency and Duration Frequency of Treatment 2x/Week Duration of Treatment 12 wks Plan of Care Start Date 10/05/19 Therapeutic Interventions Therapeutic Interventions Aquatic Therapy,Home Exercise Program,Manual Therapy, Neuromuscular Re-education, Patient/Caregiver Education, Self-Care/Home Management,Soft Tissue Mobilization,Taping, Therapeutic Activities, Therapeutic Exercises Modalities Cold Pack/Ice Massage,Electric Stimulation,Hot Packs, Ultrasound Next Visit Focus/Plan Next Note Type Treatment Note Next Visit Plan Review HEP, progress with ther ex for core stabilization, strengthening, flexibility Plan of Care Dates Plan of Care Start Date 10/05/19 Plan of Care End Date 08/28/19
--- NOTE | 2019-10-12 14:23 | PT.OTN ---
Current Diagnoses Radiculopathy, cervical region (10/12/19) Low back pain (10/12/19) Physical Therapy Treatment Note PT-OP-A Visit Information Start: 10/05/19 09:06 Freq: Status: Active Protocol: Document 10/07/19 09:00 [facility] (Rec: 10/12/19 14:23 [facility] [id number]) Out-Patient Physical Therapy Visit Information Visit Information Visit Type Treatment Note Visit Start Time 09:00 Visit Stop Time 09:45 Total Visit Minutes 45 Visit Number 20 Evaluation Information Evaluation Date 10/05/19 Precautions Precautions prior lumbar and cervical fusions PT-OP-B Current Condition Start: 10/05/19 09:06 Freq: Status: Active Protocol: Document 10/05/19 09:07 SAK (Rec: 10/05/19 09:43 SAK [id number]) Current Condition History of Current Condition Onset Date years Current Complaints LBP History of Current Condition Patient reports he took a break from PT due to having a hard time attending PT consistently. Reports neck has recovered well, but returns to PT with c/o LBP. Reports severe pain especially with standing, walking, prolonged sitting. Only decreases with laying down. Reports also sharp pain into left scapular region. Is anticipating lumbar surgery. Prior Treatments and Tests Spinal fusion, LBP, cervical fusion Future Testing and Treatments Planned Sees Dr. King 10/16/19 to discuss back surgery Treatment Goals Patient/Caregiver Goals Decrease pain, be able to do usual activities without pain. Prior Functional Status Baseline Function- ADL's Independent Baseline Function- Mobility Independent Baseline Function- Gait independent, no pain Baseline Function- Recreation/Hobbies fishing without pain Current Functional Impairments (Reported) Functional Limitations- ADL's painful Functional Limitations- Mobility/Gait decreased distance, painful Functional Limitations- Recreation/ Painful to sit and tie flies, Hobbies fish PT-OP-C Subjective Start: 10/05/19 09:06 Freq: Status: Active Protocol: Document 10/07/19 09:00 SAK (Rec: 10/12/19 14:23 [facility] [id number]) OP-PT Subjective Patient Comments Patient Comments No new c/o. Reports he has an apppointment with Dr. King next week 10/16/19. PT-OP-G Mobility & Gait Start: 10/05/19 09:06 Freq: Status: Active Protocol: Document 10/05/19 09:07 [facility] (Rec: 10/12/19 14:11 [facility] [id number]) OP Mobility Evaluation Bed Mobility Rolling log roll reviewed Functional Movements Lifting and Carrying not tested today due to high pain level Squats poor body mechanics PT-OP-J Posture/Palpation/Skin Start: 10/05/19 09:06 Freq: Status: Active Protocol: Document 10/05/19 09:07 [facility] (Rec: 10/12/19 14:11 [facility] [id number]) Posture Evaluation Position Sitting Head/C-Spine Posture C-Spine Flattened T-Spine Posture Increased Kyphosis L-Spine Posture Increased Lordosis Shoulder Posture (L) Rounded,(R) Rounded,(L) Forward,(R) Forward,(R) Elevated Scapula Posture (R) Protracted,(R) Elevated Palpation Assessment Location cervical spine Palpation Findings Soft Tissue Tightness, Tenderness Palpation Details decreased muscle bulk left thoracolumbar spine as compared to right. PT-OP-K Range of Motion Start: 10/05/19 09:06 Freq: Status: Active Protocol: Document 10/05/19 09:07 [facility] (Rec: 10/12/19 14:11 [facility] [id number]) Lumbar Spine Range of Motion Lumbar Spine Active Testing Position Standing ROM Limitations Soft Tissue Tightness,Pain Comments moderate decrease all motions with c/o pain Hip Goniometric Range of Motion Hip coleen Hip ROM WFL No Testing Position Supine Flexion w/Knee Flexed 100 Straight Leg Raise 55 Extension 0 Internal Rotation 20 External Rotation 45 Hip ROM Limitations Hip ROM Limitations Soft Tissue Tightness,Muscle Weakness PT-OP-L Special Tests Start: 10/05/19 09:06 Freq: Status: Active Protocol: Document 10/05/19 09:07 [facility] (Rec: 10/12/19 14:11 [facility] [id number]) Special Tests Lumbar Spine Special Tests Straight Leg Raise Test Results negative Prone Press Up Test Results negative Slump Test Results negative PT-OP-M Strength Start: 10/05/19 09:06 Freq: Status: Active Protocol: Document 10/05/19 09:07 [facility] (Rec: 10/12/19 14:11 [facility] [id number]) Trunk Strength Trunk Manual Muscle Testing Flexion 4- Good- Extension 4- Good- Hip Strength Hip Manual Muscle Testing Right Flexion (L2) 4- Good- Extension (S1) 3+ Fair+ Abduction 4 Good External Rotation 3+ Fair+ Internal Rotation 4- Good- Left Flexion (L2) 4- Good- Extension (S1) 3+ Fair+ Abduction 4- Good- External Rotation 3+ Fair+ Internal Rotation 4- Good- Knee Strength Knee Manual Muscle Testing coleen Flexion (S2) 5 Normal Extension (L3) 4 Good Ankle/Foot Strength Ankle and Foot Manual Muscle Testing Right Dorsiflexion (L4) 4- Good- Plantarflexion (S1) 4 Good Left Dorsiflexion (L4) 4 Good Plantarflexion (S1) 4 Good PT-OP-Q Treatments Start: 10/05/19 09:06 Freq: Status: Active Protocol: Document 10/07/19 09:00 [facility] (Rec: 10/12/19 14:23 [facility] [id number]) Cardio Equipment Recumbent Stepper (Sci-Fit) Duration (Minutes) 10 Resistance 1 Seat Position 13 Gym Equipment Shuttle Recovery Bilateral Squats Resistance 62 Shuttle Recovery Platform Stable Shuttle Balance chains green Details standing bal 2 min Comments emphasis on postural stabilization Sport Cord forward Cord/Resistance green Reps/Duration 5x Therapeutic Exercises Supine Exercises pec stretch Reps/Minutes 2x30 SKTC Reps/Minutes 2x30 HS stretch Reps/Minutes 2 x 30 Comments manual Prone Exercises plank Reps/Minutes 5x5 Sidelying Exercises clamshells w/ levle 1 band Reps/Minutes 10 bilat Comments pt fatigued-unable to do another set Neuro Re-Education Treatment Movement Re-Education Movement Re-education Activities sit to and from stand with neutral spine PT-OP-T Assessment and Plan Start: 10/05/19 09:06 Freq: Status: Active Protocol: Document 10/07/19 09:00 [facility] (Rec: 10/12/19 14:23 [facility] [id number]) Physical Therapy Assessment Goals Three Impairment LBP 7/10 Short Term Goal (STG) Decrease LBP to no greater than 5/10 with usual activities STG Duration 11/16/19 Shore Working Supervisor Goal (LTG) Decrease LBP to no greater than 3/10 with usual activities LTG Duration 01/05/10 Two Impairment decreased activity tolerance Oswestry 58% Short Term Goal (STG) Decrease Oswestry Score to no greater than 45% STG Duration 11/16/19 Usp Goal (LTG) Decrease Osweestry Score to no greater than 25% LTG Duration 01/05/20 One Impairment weakness LE's and core Short Term Goal (STG) Patient able to tolerate 45 min land-based exercises for the purpose of strengthening and core stabilization without an increase in pain or c/o excess fatigue STG Duration 11/16/19 Usp Goal (LTG) Patient to be independent and compliant with HEP LTG Duration 01/05/20 Assessment Summary Assessment Patient demonstrated imroved understanding of neutral postural alignment with functional tasks around the house and community. Will need further review next session to assure retention and follow through. Physical Therapy Plan Frequency and Duration Frequency of Treatment 2x/Week Duration of Treatment 12 wks Plan of Care Start Date 10/05/19 Therapeutic Interventions Therapeutic Interventions Aquatic Therapy,Home Exercise Program,Manual Therapy, Neuromuscular Re-education, Patient/Caregiver Education, Self-Care/Home Management,Soft Tissue Mobilization,Taping, Therapeutic Activities, Therapeutic Exercises Modalities Cold Pack/Ice Massage,Electric Stimulation,Hot Packs, Ultrasound Next Visit Focus/Plan Next Note Type Treatment Note Next Visit Plan Continue to progress as tolerated.
--- NOTE | 2019-10-12 15:36 | PT.OTN ---
Current Diagnoses Radiculopathy, cervical region (10/12/19) Low back pain (10/12/19) Physical Therapy Treatment Note PT-OP-A Visit Information Start: 10/05/19 09:06 Freq: Status: Active Protocol: Document 10/12/19 14:29 SAK (Rec: 10/12/19 15:23 SAK [id number]) Out-Patient Physical Therapy Visit Information Visit Information Visit Type Treatment Note Visit Start Time 14:30 Visit Stop Time 09:45 Total Visit Minutes 45 Visit Number 3 Number of SAS ADMINISTRATOR Visits 0 PT-OP-B Current Condition Start: 10/05/19 09:06 Freq: Status: Active Protocol: Document 10/05/19 09:07 SAK (Rec: 10/05/19 09:43 SAK [id number]) Current Condition History of Current Condition Onset Date years Current Complaints LBP History of Current Condition Patient reports he took a break from PT due to having a hard time attending PT consistently. Reports neck has recovered well, but returns to PT with c/o LBP. Reports severe pain especially with standing, walking, prolonged sitting. Only decreases with laying down. Reports also sharp pain into left scapular region. Is anticipating lumbar surgery. Prior Treatments and Tests Spinal fusion, LBP, cervical fusion Future Testing and Treatments Planned Sees Dr. King 10/16/19 to discuss back surgery Treatment Goals Patient/Caregiver Goals Decrease pain, be able to do usual activities without pain. Prior Functional Status Baseline Function- ADL's Independent Baseline Function- Mobility Independent Baseline Function- Gait independent, no pain Baseline Function- Recreation/Hobbies fishing without pain Current Functional Impairments (Reported) Functional Limitations- ADL's painful Functional Limitations- Mobility/Gait decreased distance, painful Functional Limitations- Recreation/ Painful to sit and tie flies, Hobbies fish PT-OP-C Subjective Start: 10/05/19 09:06 Freq: Status: Active Protocol: Document 10/12/19 14:29 SAK (Rec: 10/12/19 15:23 SAK [id number]) OP-PT Subjective Patient Comments Patient Comments Patient reports had to walk uphill due to forgetting his keys:I found some muscles I haven't had. PT-OP-G Mobility & Gait Start: 10/05/19 09:06 Freq: Status: Active Protocol: Document 10/05/19 09:07 SAK (Rec: 10/12/19 14:11 [facility] [id number]) OP Mobility Evaluation Bed Mobility Rolling log roll reviewed Functional Movements Lifting and Carrying not tested today due to high pain level Squats poor body mechanics PT-OP-J Posture/Palpation/Skin Start: 10/05/19 09:06 Freq: Status: Active Protocol: Document 10/05/19 09:07 [facility] (Rec: 10/12/19 14:11 [facility] [id number]) Posture Evaluation Position Sitting Head/C-Spine Posture C-Spine Flattened T-Spine Posture Increased Kyphosis L-Spine Posture Increased Lordosis Shoulder Posture (L) Rounded,(R) Rounded,(L) Forward,(R) Forward,(R) Elevated Scapula Posture (R) Protracted,(R) Elevated Palpation Assessment Location cervical spine Palpation Findings Soft Tissue Tightness, Tenderness Palpation Details decreased muscle bulk left thoracolumbar spine as compared to right. PT-OP-K Range of Motion Start: 10/05/19 09:06 Freq: Status: Active Protocol: Document 10/05/19 09:07 [facility] (Rec: 10/12/19 14:11 [facility] [id number]) Lumbar Spine Range of Motion Lumbar Spine Active Testing Position Standing ROM Limitations Soft Tissue Tightness,Pain Comments moderate decrease all motions with c/o pain Hip Goniometric Range of Motion Hip coleen Hip ROM WFL No Testing Position Supine Flexion w/Knee Flexed 100 Straight Leg Raise 55 Extension 0 Internal Rotation 20 External Rotation 45 Hip ROM Limitations Hip ROM Limitations Soft Tissue Tightness,Muscle Weakness PT-OP-L Special Tests Start: 10/05/19 09:06 Freq: Status: Active Protocol: Document 10/05/19 09:07 [facility] (Rec: 10/12/19 14:11 [facility] [id number]) Special Tests Lumbar Spine Special Tests Straight Leg Raise Test Results negative Prone Press Up Test Results negative Slump Test Results negative PT-OP-M Strength Start: 10/05/19 09:06 Freq: Status: Active Protocol: Document 10/05/19 09:07 [facility] (Rec: 10/12/19 14:11 [facility] [id number]) Trunk Strength Trunk Manual Muscle Testing Flexion 4- Good- Extension 4- Good- Hip Strength Hip Manual Muscle Testing Right Flexion (L2) 4- Good- Extension (S1) 3+ Fair+ Abduction 4 Good External Rotation 3+ Fair+ Internal Rotation 4- Good- Left Flexion (L2) 4- Good- Extension (S1) 3+ Fair+ Abduction 4- Good- External Rotation 3+ Fair+ Internal Rotation 4- Good- Knee Strength Knee Manual Muscle Testing coleen Flexion (S2) 5 Normal Extension (L3) 4 Good Ankle/Foot Strength Ankle and Foot Manual Muscle Testing Right Dorsiflexion (L4) 4- Good- Plantarflexion (S1) 4 Good Left Dorsiflexion (L4) 4 Good Plantarflexion (S1) 4 Good PT-OP-Q Treatments Start: 10/05/19 09:06 Freq: Status: Active Protocol: Document 10/12/19 14:29 [facility] (Rec: 10/12/19 15:23 [facility] [id number]) Cardio Equipment Recumbent Stepper (Sci-Fit) Duration (Minutes) 10 Resistance 1.5 Seat Position 13 Gym Equipment Shuttle Recovery Unilateral Squats Resistance 50 Shuttle Recovery Platform Stable Bilateral Squats Resistance 62 Shuttle Recovery Platform Stable Shuttle Balance chains red Details standing bal Comments emphasis on postural alignment , core stab Sport Cord sideways Cord/Resistance green Reps/Duration 5x backward Cord/Resistance green Reps/Duration 5x forward Cord/Resistance green Reps/Duration 5x Therapeutic Exercises Supine Exercises DKTC Reps/Minutes 1x30 bicycling Reps/Minutes 3' Comments cues for core stab SKTC Reps/Minutes 2x30 HS stretch Reps/Minutes 2 x 30 Comments manual Neuro Re-Education Treatment Movement Re-Education Movement Re-education Activities seated postural positioning, trial use of pillow, towel roll at back. PT-OP-T Assessment and Plan Start: 10/05/19 09:06 Freq: Status: Active Protocol: Document 10/12/19 14:29 [facility] (Rec: 10/12/19 15:23 [facility] [id number]) Physical Therapy Assessment Goals Three Impairment LBP 7/10 Short Term Goal (STG) Decrease LBP to no greater than 5/10 with usual activities STG Duration 11/16/19 Snf Goal (LTG) Decrease LBP to no greater than 3/10 with usual activities LTG Duration 01/05/10 Two Impairment decreased activity tolerance Oswestry 58% Short Term Goal (STG) Decrease Oswestry Score to no greater than 45% STG Duration 11/16/19 Snf Goal (LTG) Decrease Osweestry Score to no greater than 25% LTG Duration 01/05/20 One Impairment weakness LE's and core Short Term Goal (STG) Patient able to tolerate 45 min land-based exercises for the purpose of strengthening and core stabilization without an increase in pain or c/o excess fatigue STG Duration 11/16/19 Snf Goal (LTG) Patient to be independent and compliant with HEP LTG Duration 01/05/20 Assessment Summary Assessment Continues to demonstrate improvement in postural understanding and core stabilization ability. Physical Therapy Plan Frequency and Duration Frequency of Treatment 2x/Week Duration of Treatment 12 wks Plan of Care Start Date 10/05/19 Plan of Care End Date 01/05/20 Therapeutic Interventions Therapeutic Interventions Aquatic Therapy,Home Exercise Program,Manual Therapy, Neuromuscular Re-education, Patient/Caregiver Education, Self-Care/Home Management,Soft Tissue Mobilization,Taping, Therapeutic Activities, Therapeutic Exercises Modalities Cold Pack/Ice Massage,Electric Stimulation,Hot Packs, Ultrasound Next Visit Focus/Plan Next Note Type Treatment Note Next Visit Plan Continue to progress as tolerated. Emphasis on postural alignment and core stabilization.
--- NOTE | 2019-10-14 16:09 | PT.OTN ---
Current Diagnoses Radiculopathy, cervical region (10/14/19) Low back pain (10/14/19) Physical Therapy Treatment Note PT-OP-A Visit Information Start: 10/05/19 09:06 Freq: Status: Active Protocol: Document 10/14/19 15:22 SAK (Rec: 10/14/19 16:08 [facility] [id number]) Out-Patient Physical Therapy Visit Information Visit Information Visit Type Treatment Note Visit Start Time 15:15 Visit Stop Time 16:02 Total Visit Minutes 47 Visit Number 4 Number of MOBILE UI/UX DESIGNER Visits 0 Evaluation Information Evaluation Date 10/05/19 Precautions Precautions prior lumbar and cervical fusions PT-OP-B Current Condition Start: 10/05/19 09:06 Freq: Status: Active Protocol: Document 10/05/19 09:07 SAK (Rec: 10/05/19 09:43 SAK [id number]) Current Condition History of Current Condition Onset Date years Current Complaints LBP History of Current Condition Patient reports he took a break from PT due to having a hard time attending PT consistently. Reports neck has recovered well, but returns to PT with c/o LBP. Reports severe pain especially with standing, walking, prolonged sitting. Only decreases with laying down. Reports also sharp pain into left scapular region. Is anticipating lumbar surgery. Prior Treatments and Tests Spinal fusion, LBP, cervical fusion Future Testing and Treatments Planned Sees Dr. King 10/16/19 to discuss back surgery Treatment Goals Patient/Caregiver Goals Decrease pain, be able to do usual activities without pain. Prior Functional Status Baseline Function- ADL's Independent Baseline Function- Mobility Independent Baseline Function- Gait independent, no pain Baseline Function- Recreation/Hobbies fishing without pain Current Functional Impairments (Reported) Functional Limitations- ADL's painful Functional Limitations- Mobility/Gait decreased distance, painful Functional Limitations- Recreation/ Painful to sit and tie flies, Hobbies fish PT-OP-C Subjective Start: 10/05/19 09:06 Freq: Status: Active Protocol: Document 10/14/19 15:22 SAK (Rec: 10/14/19 16:08 [facility] [id number]) OP-PT Subjective Patient Comments Patient Comments 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 Poor sleep last night. Sees Dr. King tomorrow am. PT-OP-G Mobility & Gait Start: 10/05/19 09:06 Freq: Status: Active Protocol: Document 10/05/19 09:07 [facility] (Rec: 10/12/19 14:11 [facility] [id number]) OP Mobility Evaluation Bed Mobility Rolling log roll reviewed Functional Movements Lifting and Carrying not tested today due to high pain level Squats poor body mechanics PT-OP-J Posture/Palpation/Skin Start: 10/05/19 09:06 Freq: Status: Active Protocol: Document 10/05/19 09:07 [facility] (Rec: 10/12/19 14:11 [facility] [id number]) Posture Evaluation Position Sitting Head/C-Spine Posture C-Spine Flattened T-Spine Posture Increased Kyphosis L-Spine Posture Increased Lordosis Shoulder Posture (L) Rounded,(R) Rounded,(L) Forward,(R) Forward,(R) Elevated Scapula Posture (R) Protracted,(R) Elevated Palpation Assessment Location cervical spine Palpation Findings Soft Tissue Tightness, Tenderness Palpation Details decreased muscle bulk left thoracolumbar spine as compared to right. PT-OP-K Range of Motion Start: 10/05/19 09:06 Freq: Status: Active Protocol: Document 10/05/19 09:07 [facility] (Rec: 10/12/19 14:11 [facility] [id number]) Lumbar Spine Range of Motion Lumbar Spine Active Testing Position Standing ROM Limitations Soft Tissue Tightness,Pain Comments moderate decrease all motions with c/o pain Hip Goniometric Range of Motion Hip coleen Hip ROM WFL No Testing Position Supine Flexion w/Knee Flexed 100 Straight Leg Raise 55 Extension 0 Internal Rotation 20 External Rotation 45 Hip ROM Limitations Hip ROM Limitations Soft Tissue Tightness,Muscle Weakness PT-OP-L Special Tests Start: 10/05/19 09:06 Freq: Status: Active Protocol: Document 10/05/19 09:07 [facility] (Rec: 10/12/19 14:11 [facility] [id number]) Special Tests Lumbar Spine Special Tests Straight Leg Raise Test Results negative Prone Press Up Test Results negative Slump Test Results negative PT-OP-M Strength Start: 10/05/19 09:06 Freq: Status: Active Protocol: Document 10/05/19 09:07 [facility] (Rec: 10/12/19 14:11 [facility] [id number]) Trunk Strength Trunk Manual Muscle Testing Flexion 4- Good- Extension 4- Good- Hip Strength Hip Manual Muscle Testing Right Flexion (L2) 4- Good- Extension (S1) 3+ Fair+ Abduction 4 Good External Rotation 3+ Fair+ Internal Rotation 4- Good- Left Flexion (L2) 4- Good- Extension (S1) 3+ Fair+ Abduction 4- Good- External Rotation 3+ Fair+ Internal Rotation 4- Good- Knee Strength Knee Manual Muscle Testing coleen Flexion (S2) 5 Normal Extension (L3) 4 Good Ankle/Foot Strength Ankle and Foot Manual Muscle Testing Right Dorsiflexion (L4) 4- Good- Plantarflexion (S1) 4 Good Left Dorsiflexion (L4) 4 Good Plantarflexion (S1) 4 Good PT-OP-Q Treatments Start: 10/05/19 09:06 Freq: Status: Active Protocol: Document 10/14/19 15:22 [facility] (Rec: 10/14/19 16:08 [facility] [id number]) Cardio Equipment Recumbent Stepper (Sci-Fit) Duration (Minutes) 10 Resistance 2.0 Seat Position 13 Gym Equipment Shuttle Recovery Unilateral Squats Resistance 50 Shuttle Recovery Platform Stable Bilateral Squats Resistance 62 Shuttle Recovery Platform Stable Shuttle Balance chains red Details standing bal Comments emphasis on postural alignment , core stab Sport Cord sideways Cord/Resistance green Reps/Duration 5x backward Cord/Resistance green Reps/Duration 5x forward Cord/Resistance green Reps/Duration 5x Therapeutic Exercises Supine Exercises DKTC Reps/Minutes 1x30 bicycling Reps/Minutes 3' Comments cues for core stab pec stretch Reps/Minutes 2x30 SKTC Reps/Minutes 2x30 HS stretch Reps/Minutes 2 x 30 Comments manual Neuro Re-Education Treatment Movement Re-Education Movement Re-education Activities sit to stand and back with neutral lumbar spine. PT-OP-T Assessment and Plan Start: 10/05/19 09:06 Freq: Status: Active Protocol: Document 10/14/19 15:22 [facility] (Rec: 10/14/19 16:08 [facility] [id number]) Physical Therapy Assessment Goals Five Impairment QuickDash UE disability index score 95% Short Term Goal (STG) Decrease Quickdash UE disability index score to no greater than 60% 07/30/19: good goal progress STG Duration MET Manager Labor Relations Goal (LTG) Decrease Quickdash UE disability index score to no greater than 30% including able to reach overhead and behind his back for ADL's and usual daily activities without difficulty 07/30/19: good goal progress LTG Duration 08/28/19 Four Impairment poor scapular strength and stabilization right, dec coleen UE strength Short Term Goal (STG) Instruct in HEP for purposes of strengthening and scapular stabilization 07/30/19:Tolerating continued progression of ther ex STG Duration GOAL MET Fpc Goal (LTG) Improve UE strength to at least 4+/5 to allow full functional use of UE's 07/30/19: good progress LTG Duration 08/28/19 Three Impairment LBP / Short Term Goal (STG) Decrease LBP to no greater than 5/10 with usual activities STG Duration 11/16/19 Fpc Goal (LTG) Decrease LBP to no greater than 3/10 with usual activities LTG Duration 01/05/10 Two Impairment decreased activity tolerance Oswestry 58% Short Term Goal (STG) Decrease Oswestry Score to no greater than 45% STG Duration 11/16/19 Manager Labor Relations Goal (LTG) Decrease Osweestry Score to no greater than 25% LTG Duration 01/05/20 One Impairment weakness LE's and core Short Term Goal (STG) Patient able to tolerate 45 min land-based exercises for the purpose of strengthening and core stabilization without an increase in pain or c/o excess fatigue STG Duration 11/16/19 Fpc Goal (LTG) Patient to be independent and compliant with HEP LTG Duration 01/05/20 Assessment Summary Assessment Patient denies pain with PT ther ex. Needs mod cues for postural alignment and core stab Physical Therapy Plan Frequency and Duration Frequency of Treatment 2x/Week Duration of Treatment 12 wks Plan of Care Start Date 10/05/19 Plan of Care End Date 01/05/20 Therapeutic Interventions Therapeutic Interventions Aquatic Therapy,Home Exercise Program,Manual Therapy, Neuromuscular Re-education, Patient/Caregiver Education, Self-Care/Home Management,Soft Tissue Mobilization,Taping, Therapeutic Activities, Therapeutic Exercises Modalities Cold Pack/Ice Massage,Electric Stimulation,Hot Packs, Ultrasound Next Visit Focus/Plan Next Note Type Treatment Note Next Visit Plan Continue PT pending outcome from physician appointment.
--- NOTE | 2019-10-19 16:53 | PT.OTN ---
Current Diagnoses Radiculopathy, cervical region (10/19/19) Low back pain (10/19/19) Physical Therapy Treatment Note PT-OP-A Visit Information Start: 10/05/19 09:06 Freq: Status: Active Protocol: Document 10/19/19 08:22 SAK (Rec: 10/19/19 09:05 [facility] [id number]) Out-Patient Physical Therapy Visit Information Visit Information Visit Type Treatment Note Visit Start Time 08:15 Visit Stop Time 09:08 Total Visit Minutes 53 Visit Number 5 Number of RAG CUTTING MACHINE TENDER Visits 0 Precautions Precautions prior lumbar and cervical fusions PT-OP-B Current Condition Start: 10/05/19 09:06 Freq: Status: Active Protocol: Document 10/05/19 09:07 SAK (Rec: 10/05/19 09:43 SAK [id number]) Current Condition History of Current Condition Onset Date years Current Complaints LBP History of Current Condition Patient reports he took a break from PT due to having a hard time attending PT consistently. Reports neck has recovered well, but returns to PT with c/o LBP. Reports severe pain especially with standing, walking, prolonged sitting. Only decreases with laying down. Reports also sharp pain into left scapular region. Is anticipating lumbar surgery. Prior Treatments and Tests Spinal fusion, LBP, cervical fusion Future Testing and Treatments Planned Sees Dr. King 10/16/19 to discuss back surgery Treatment Goals Patient/Caregiver Goals Decrease pain, be able to do usual activities without pain. Prior Functional Status Baseline Function- ADL's Independent Baseline Function- Mobility Independent Baseline Function- Gait independent, no pain Baseline Function- Recreation/Hobbies fishing without pain Current Functional Impairments (Reported) Functional Limitations- ADL's painful Functional Limitations- Mobility/Gait decreased distance, painful Functional Limitations- Recreation/ Painful to sit and tie flies, Hobbies fish PT-OP-C Subjective Start: 10/05/19 09:06 Freq: Status: Active Protocol: Document 10/19/19 08:22 SAK (Rec: 10/19/19 09:05 SAK [id number]) OP-PT Subjective Patient Comments Patient Comments Reports increased pain since last Saturday, may have overdone it with HEP at home. Saw Dr. King , paperwork being put in for surgery. PT-OP-G Mobility & Gait Start: 10/05/19 09:06 Freq: Status: Active Protocol: Document 10/05/19 09:07 [facility] (Rec: 10/12/19 14:11 [facility] [id number]) OP Mobility Evaluation Bed Mobility Rolling log roll reviewed Functional Movements Lifting and Carrying not tested today due to high pain level Squats poor body mechanics PT-OP-J Posture/Palpation/Skin Start: 10/05/19 09:06 Freq: Status: Active Protocol: Document 10/05/19 09:07 [facility] (Rec: 10/12/19 14:11 [facility] [id number]) Posture Evaluation Position Sitting Head/C-Spine Posture C-Spine Flattened T-Spine Posture Increased Kyphosis L-Spine Posture Increased Lordosis Shoulder Posture (L) Rounded,(R) Rounded,(L) Forward,(R) Forward,(R) Elevated Scapula Posture (R) Protracted,(R) Elevated Palpation Assessment Location cervical spine Palpation Findings Soft Tissue Tightness, Tenderness Palpation Details decreased muscle bulk left thoracolumbar spine as compared to right. PT-OP-K Range of Motion Start: 10/05/19 09:06 Freq: Status: Active Protocol: Document 10/05/19 09:07 [facility] (Rec: 10/12/19 14:11 [facility] [id number]) Lumbar Spine Range of Motion Lumbar Spine Active Testing Position Standing ROM Limitations Soft Tissue Tightness,Pain Comments moderate decrease all motions with c/o pain Hip Goniometric Range of Motion Hip coleen Hip ROM WFL No Testing Position Supine Flexion w/Knee Flexed 100 Straight Leg Raise 55 Extension 0 Internal Rotation 20 External Rotation 45 Hip ROM Limitations Hip ROM Limitations Soft Tissue Tightness,Muscle Weakness PT-OP-L Special Tests Start: 10/05/19 09:06 Freq: Status: Active Protocol: Document 10/05/19 09:07 [facility] (Rec: 10/12/19 14:11 [facility] [id number]) Special Tests Lumbar Spine Special Tests Straight Leg Raise Test Results negative Prone Press Up Test Results negative Slump Test Results negative PT-OP-M Strength Start: 10/05/19 09:06 Freq: Status: Active Protocol: Document 10/05/19 09:07 [facility] (Rec: 10/12/19 14:11 [facility] [id number]) Trunk Strength Trunk Manual Muscle Testing Flexion 4- Good- Extension 4- Good- Hip Strength Hip Manual Muscle Testing Right Flexion (L2) 4- Good- Extension (S1) 3+ Fair+ Abduction 4 Good External Rotation 3+ Fair+ Internal Rotation 4- Good- Left Flexion (L2) 4- Good- Extension (S1) 3+ Fair+ Abduction 4- Good- External Rotation 3+ Fair+ Internal Rotation 4- Good- Knee Strength Knee Manual Muscle Testing coleen Flexion (S2) 5 Normal Extension (L3) 4 Good Ankle/Foot Strength Ankle and Foot Manual Muscle Testing Right Dorsiflexion (L4) 4- Good- Plantarflexion (S1) 4 Good Left Dorsiflexion (L4) 4 Good Plantarflexion (S1) 4 Good PT-OP-Q Treatments Start: 10/05/19 09:06 Freq: Status: Active Protocol: Document 10/19/19 08:22 [facility] (Rec: 10/19/19 09:05 [facility] [id number]) Cardio Equipment Recumbent Stepper (Sci-Fit) Duration (Minutes) 10 Resistance 1.5 Seat Position 13 Gym Equipment Shuttle Recovery Bilateral Squats Resistance 62 Shuttle Recovery Platform Stable Therapeutic Exercises Supine Exercises LTR Reps/Minutes 10x Comments gentle with manual guidance DKTC Reps/Minutes 1x30 SKTC Reps/Minutes 2x30 Comments manual HS stretch Reps/Minutes 2 x 30 Comments manual Manual Therapy Treatment Soft Tissue Mobilization lumbar spine Mobilization Type Myofascial Release,Strumming Body Position left sidelying PT-OP-T Assessment and Plan Start: 10/05/19 09:06 Freq: Status: Active Protocol: Document 10/19/19 08:22 [facility] (Rec: 10/19/19 09:05 [facility] [id number]) Physical Therapy Assessment Goals Five Impairment QuickDash UE disability index score 95% Short Term Goal (STG) Decrease Quickdash UE disability index score to no greater than 60% 07/30/19: good goal progress STG Duration MET Fdc Goal (LTG) Decrease Quickdash UE disability index score to no greater than 30% including able to reach overhead and behind his back for ADL's and usual daily activities without difficulty 07/30/19: good goal progress LTG Duration 08/28/19 Four Impairment poor scapular strength and stabilization right, dec coleen UE strength Short Term Goal (STG) Instruct in HEP for purposes of strengthening and scapular stabilization 07/30/19:Tolerating continued progression of ther ex STG Duration GOAL MET Fdc Goal (LTG) Improve UE strength to at least 4+/5 to allow full functional use of UE's 07/30/19: good progress LTG Duration 08/28/19 Three Impairment LBP 7/10 Short Term Goal (STG) Decrease LBP to no greater than 5/10 with usual activities STG Duration 11/16/19 Assistant Passenger Locomotive Engineer Goal (LTG) Decrease LBP to no greater than 3/10 with usual activities LTG Duration 01/05/10 Two Impairment decreased activity tolerance Oswestry 58% Short Term Goal (STG) Decrease Oswestry Score to no greater than 45% STG Duration 11/16/19 Fdc Goal (LTG) Decrease Osweestry Score to no greater than 25% LTG Duration 01/05/20 One Impairment weakness LE's and core Short Term Goal (STG) Patient able to tolerate 45 min land-based exercises for the purpose of strengthening and core stabilization without an increase in pain or c/o excess fatigue STG Duration 11/16/19 Fdc Goal (LTG) Patient to be independent and compliant with HEP LTG Duration 01/05/20 Assessment Summary Assessment Decreased exercise tolerance today, guarded movements. Reported decreased pain after treatment. Gait more upright with increased speed after treatment. Physical Therapy Plan Frequency and Duration Frequency of Treatment 2x/Week Duration of Treatment 12 wks Plan of Care Start Date 10/05/19 Plan of Care End Date 01/05/20 Therapeutic Interventions Therapeutic Interventions Aquatic Therapy,Home Exercise Program,Manual Therapy, Neuromuscular Re-education, Patient/Caregiver Education, Self-Care/Home Management,Soft Tissue Mobilization,Taping, Therapeutic Activities, Therapeutic Exercises Modalities Cold Pack/Ice Massage,Electric Stimulation,Hot Packs, Ultrasound Next Visit Focus/Plan Next Note Type Treatment Note Next Visit Plan Increase ther ex component as tolerated, modification to more supine exercises as needed based on symptoms.
--- NOTE | 2019-10-21 10:04 | PT.OTN ---
Current Diagnoses Radiculopathy, cervical region (10/21/19) Low back pain (10/21/19) Physical Therapy Treatment Note PT-OP-A Visit Information Start: 10/05/19 09:06 Freq: Status: Active Protocol: Document 10/21/19 08:14 SAK (Rec: 10/21/19 08:58 SAK [id number]) Out-Patient Physical Therapy Visit Information Visit Information Visit Type Treatment Note Visit Start Time 08:15 Visit Stop Time 09:10 Total Visit Minutes 55 Visit Number 6 Number of RING STAMPER Visits 0 Precautions Precautions prior lumbar and cervical fusions PT-OP-B Current Condition Start: 10/05/19 09:06 Freq: Status: Active Protocol: Document 10/05/19 09:07 SAK (Rec: 10/05/19 09:43 SAK [id number]) Current Condition History of Current Condition Onset Date years Current Complaints LBP History of Current Condition Patient reports he took a break from PT due to having a hard time attending PT consistently. Reports neck has recovered well, but returns to PT with c/o LBP. Reports severe pain especially with standing, walking, prolonged sitting. Only decreases with laying down. Reports also sharp pain into left scapular region. Is anticipating lumbar surgery. Prior Treatments and Tests Spinal fusion, LBP, cervical fusion Future Testing and Treatments Planned Sees Dr. King 10/16/19 to discuss back surgery Treatment Goals Patient/Caregiver Goals Decrease pain, be able to do usual activities without pain. Prior Functional Status Baseline Function- ADL's Independent Baseline Function- Mobility Independent Baseline Function- Gait independent, no pain Baseline Function- Recreation/Hobbies fishing without pain Current Functional Impairments (Reported) Functional Limitations- ADL's painful Functional Limitations- Mobility/Gait decreased distance, painful Functional Limitations- Recreation/ Painful to sit and tie flies, Hobbies fish PT-OP-C Subjective Start: 10/05/19 09:06 Freq: Status: Active Protocol: Document 10/21/19 08:14 SAK (Rec: 10/21/19 08:58 SAK [id number]) OP-PT Subjective Patient Comments Patient Comments [place] better after PT last session, hurting more again this am. States am usually the best for him. PT-OP-G Mobility & Gait Start: 10/05/19 09:06 Freq: Status: Active Protocol: Document 10/05/19 09:07 SAK (Rec: 10/12/19 14:11 [facility] [id number]) OP Mobility Evaluation Bed Mobility Rolling log roll reviewed Functional Movements Lifting and Carrying not tested today due to high pain level Squats poor body mechanics PT-OP-J Posture/Palpation/Skin Start: 10/05/19 09:06 Freq: Status: Active Protocol: Document 10/05/19 09:07 [facility] (Rec: 10/12/19 14:11 [facility] [id number]) Posture Evaluation Position Sitting Head/C-Spine Posture C-Spine Flattened T-Spine Posture Increased Kyphosis L-Spine Posture Increased Lordosis Shoulder Posture (L) Rounded,(R) Rounded,(L) Forward,(R) Forward,(R) Elevated Scapula Posture (R) Protracted,(R) Elevated Palpation Assessment Location cervical spine Palpation Findings Soft Tissue Tightness, Tenderness Palpation Details decreased muscle bulk left thoracolumbar spine as compared to right. PT-OP-K Range of Motion Start: 10/05/19 09:06 Freq: Status: Active Protocol: Document 10/05/19 09:07 [facility] (Rec: 10/12/19 14:11 [facility] [id number]) Lumbar Spine Range of Motion Lumbar Spine Active Testing Position Standing ROM Limitations Soft Tissue Tightness,Pain Comments moderate decrease all motions with c/o pain Hip Goniometric Range of Motion Hip coleen Hip ROM WFL No Testing Position Supine Flexion w/Knee Flexed 100 Straight Leg Raise 55 Extension 0 Internal Rotation 20 External Rotation 45 Hip ROM Limitations Hip ROM Limitations Soft Tissue Tightness,Muscle Weakness PT-OP-L Special Tests Start: 10/05/19 09:06 Freq: Status: Active Protocol: Document 10/05/19 09:07 [facility] (Rec: 10/12/19 14:11 [facility] [id number]) Special Tests Lumbar Spine Special Tests Straight Leg Raise Test Results negative Prone Press Up Test Results negative Slump Test Results negative PT-OP-M Strength Start: 10/05/19 09:06 Freq: Status: Active Protocol: Document 10/05/19 09:07 [facility] (Rec: 10/12/19 14:11 [facility] [id number]) Trunk Strength Trunk Manual Muscle Testing Flexion 4- Good- Extension 4- Good- Hip Strength Hip Manual Muscle Testing Right Flexion (L2) 4- Good- Extension (S1) 3+ Fair+ Abduction 4 Good External Rotation 3+ Fair+ Internal Rotation 4- Good- Left Flexion (L2) 4- Good- Extension (S1) 3+ Fair+ Abduction 4- Good- External Rotation 3+ Fair+ Internal Rotation 4- Good- Knee Strength Knee Manual Muscle Testing coleen Flexion (S2) 5 Normal Extension (L3) 4 Good Ankle/Foot Strength Ankle and Foot Manual Muscle Testing Right Dorsiflexion (L4) 4- Good- Plantarflexion (S1) 4 Good Left Dorsiflexion (L4) 4 Good Plantarflexion (S1) 4 Good PT-OP-Q Treatments Start: 10/05/19 09:06 Freq: Status: Active Protocol: Document 10/21/19 08:14 [facility] (Rec: 10/21/19 08:58 [facility] [id number]) Cardio Equipment Recumbent Stepper (Sci-Fit) Duration (Minutes) 10 Resistance 1.7 Seat Position 13 Treadmill Duration (Minutes) 10 Speed 1.5-1.7 Gym Equipment Shuttle Recovery Unilateral Squats Resistance 50 Shuttle Recovery Platform Stable Bilateral Squats Resistance 62 Shuttle Recovery Platform Stable Shuttle Balance chains red Details standing bal Comments emphasis on postural alignment , core stab Therapeutic Exercises Supine Exercises LTR Reps/Minutes 10x Comments gentle with manual guidance SKTC Reps/Minutes 2x30 Comments manual HS stretch Reps/Minutes 2 x 30 Comments manual Manual Therapy Treatment Taping 1 Body Location thoracolumbar paraspinals Treatment Focus inhibition, pain management Type of Tape kinesiotape Skin Inspection intact Comments 2 I strips PT-OP-T Assessment and Plan Start: 10/05/19 09:06 Freq: Status: Active Protocol: Document 10/21/19 08:14 [facility] (Rec: 10/21/19 08:58 [facility] [id number]) Physical Therapy Assessment Goals Five Impairment QuickDash UE disability index score 95% Short Term Goal (STG) Decrease Quickdash UE disability index score to no greater than 60% 07/30/19: good goal progress STG Duration MET Halfway Goal (LTG) Decrease Quickdash UE disability index score to no greater than 30% including able to reach overhead and behind his back for ADL's and usual daily activities without difficulty 07/30/19: good goal progress LTG Duration 08/28/19 Four Impairment poor scapular strength and stabilization right, dec coleen UE strength Short Term Goal (STG) Instruct in HEP for purposes of strengthening and scapular stabilization 07/30/19:Tolerating continued progression of ther ex STG Duration GOAL MET Director Of Accounts Receivable Goal (LTG) Improve UE strength to at least 4+/5 to allow full functional use of UE's 07/30/19: good progress LTG Duration 08/28/19 Three Impairment LBP 7/10 Short Term Goal (STG) Decrease LBP to no greater than 5/10 with usual activities STG Duration 11/16/19 Director Of Accounts Receivable Goal (LTG) Decrease LBP to no greater than 3/10 with usual activities LTG Duration 01/05/10 Two Impairment decreased activity tolerance Oswestry 58% Short Term Goal (STG) Decrease Oswestry Score to no greater than 45% STG Duration 11/16/19 Director Of Accounts Receivable Goal (LTG) Decrease Osweestry Score to no greater than 25% LTG Duration 01/05/20 One Impairment weakness LE's and core Short Term Goal (STG) Patient able to tolerate 45 min land-based exercises for the purpose of strengthening and core stabilization without an increase in pain or c/o excess fatigue STG Duration 11/16/19 Halfway Goal (LTG) Patient to be independent and compliant with HEP LTG Duration 01/05/20 Assessment Summary Assessment Tolerated increased exercise today and reported gradually a little better throughout session. Trial kinesiotape to thoracolumbar paraspinals today for 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 Physical Therapy Plan Frequency and Duration Frequency of Treatment 2x/Week Duration of Treatment 12 wks Plan of Care Start Date 10/05/19 Plan of Care End Date 01/05/20 Therapeutic Interventions Therapeutic Interventions Aquatic Therapy,Home Exercise Program,Manual Therapy, Neuromuscular Re-education, Patient/Caregiver Education, Self-Care/Home Management,Soft Tissue Mobilization,Taping, Therapeutic Activities, Therapeutic Exercises Modalities Cold Pack/Ice Massage,Electric Stimulation,Hot Packs, Ultrasound Next Visit Focus/Plan Next Note Type Treatment Note Next Visit Plan Continue to progress ther ex as tolerated. Modalities and manual therapy as needed for pain. Assess response to kinesiotape.
--- NOTE | 2019-10-28 16:19 | PT.OTN ---
Current Diagnoses Radiculopathy, cervical region (10/28/19) Low back pain (10/28/19) Physical Therapy Treatment Note PT-OP-A Visit Information Start: 10/05/19 09:06 Freq: Status: Active Protocol: Document 10/28/19 08:12 SAK (Rec: 10/28/19 08:58 SAK [id number]) Out-Patient Physical Therapy Visit Information Visit Information Visit Type Treatment Note Visit Start Time 08:15 Visit Stop Time 09:10 Total Visit Minutes 55 Visit Number 7 Number of FUELER Visits 0 Precautions Precautions prior lumbar and cervical fusions PT-OP-B Current Condition Start: 10/05/19 09:06 Freq: Status: Active Protocol: Document 10/05/19 09:07 SAK (Rec: 10/05/19 09:43 SAK [id number]) Current Condition History of Current Condition Onset Date years Current Complaints LBP History of Current Condition Patient reports he took a break from PT due to having a hard time attending PT consistently. Reports neck has recovered well, but returns to PT with c/o LBP. Reports severe pain especially with standing, walking, prolonged sitting. Only decreases with laying down. Reports also sharp pain into left scapular region. Is anticipating lumbar surgery. Prior Treatments and Tests Spinal fusion, LBP, cervical fusion Future Testing and Treatments Planned Sees Dr. King 10/16/19 to discuss back surgery Treatment Goals Patient/Caregiver Goals Decrease pain, be able to do usual activities without pain. Prior Functional Status Baseline Function- ADL's Independent Baseline Function- Mobility Independent Baseline Function- Gait independent, no pain Baseline Function- Recreation/Hobbies fishing without pain Current Functional Impairments (Reported) Functional Limitations- ADL's painful Functional Limitations- Mobility/Gait decreased distance, painful Functional Limitations- Recreation/ Painful to sit and tie flies, Hobbies fish PT-OP-C Subjective Start: 10/05/19 09:06 Freq: Status: Active Protocol: Document 10/28/19 08:12 SAK (Rec: 10/28/19 08:58 SAK [id number]) OP-PT Subjective Patient Comments Patient Comments Waiting for Medicare to approve surgery. Dr. King states thinking end of November . Reports use of pillow behind his back helped with back pain with tying flies. Hands painful, has referral to channel business manager. Working hard on awareness of postural alignment and positioning. PT-OP-G Mobility & Gait Start: 10/05/19 09:06 Freq: Status: Active Protocol: Document 10/05/19 09:07 SAK (Rec: 10/12/19 14:11 [facility] [id number]) OP Mobility Evaluation Bed Mobility Rolling log roll reviewed Functional Movements Lifting and Carrying not tested today due to high pain level Squats poor body mechanics PT-OP-J Posture/Palpation/Skin Start: 10/05/19 09:06 Freq: Status: Active Protocol: Document 10/05/19 09:07 SAK (Rec: 10/12/19 14:11 [facility] [id number]) Posture Evaluation Position Sitting Head/C-Spine Posture C-Spine Flattened T-Spine Posture Increased Kyphosis L-Spine Posture Increased Lordosis Shoulder Posture (L) Rounded,(R) Rounded,(L) Forward,(R) Forward,(R) Elevated Scapula Posture (R) Protracted,(R) Elevated Palpation Assessment Location cervical spine Palpation Findings Soft Tissue Tightness, Tenderness Palpation Details decreased muscle bulk left thoracolumbar spine as compared to right. PT-OP-K Range of Motion Start: 10/05/19 09:06 Freq: Status: Active Protocol: Document 10/05/19 09:07 [facility] (Rec: 10/12/19 14:11 [facility] [id number]) Lumbar Spine Range of Motion Lumbar Spine Active Testing Position Standing ROM Limitations Soft Tissue Tightness,Pain Comments moderate decrease all motions with c/o pain Hip Goniometric Range of Motion Hip coleen Hip ROM WFL No Testing Position Supine Flexion w/Knee Flexed 100 Straight Leg Raise 55 Extension 0 Internal Rotation 20 External Rotation 45 Hip ROM Limitations Hip ROM Limitations Soft Tissue Tightness,Muscle Weakness PT-OP-L Special Tests Start: 10/05/19 09:06 Freq: Status: Active Protocol: Document 10/05/19 09:07 SAK (Rec: 10/12/19 14:11 [facility] [id number]) Special Tests Lumbar Spine Special Tests Straight Leg Raise Test Results negative Prone Press Up Test Results negative Slump Test Results negative PT-OP-M Strength Start: 10/05/19 09:06 Freq: Status: Active Protocol: Document 10/05/19 09:07 SAK (Rec: 10/12/19 14:11 [facility] [id number]) Trunk Strength Trunk Manual Muscle Testing Flexion 4- Good- Extension 4- Good- Hip Strength Hip Manual Muscle Testing Right Flexion (L2) 4- Good- Extension (S1) 3+ Fair+ Abduction 4 Good External Rotation 3+ Fair+ Internal Rotation 4- Good- Left Flexion (L2) 4- Good- Extension (S1) 3+ Fair+ Abduction 4- Good- External Rotation 3+ Fair+ Internal Rotation 4- Good- Knee Strength Knee Manual Muscle Testing coleen Flexion (S2) 5 Normal Extension (L3) 4 Good Ankle/Foot Strength Ankle and Foot Manual Muscle Testing Right Dorsiflexion (L4) 4- Good- Plantarflexion (S1) 4 Good Left Dorsiflexion (L4) 4 Good Plantarflexion (S1) 4 Good PT-OP-Q Treatments Start: 10/05/19 09:06 Freq: Status: Active Protocol: Document 10/28/19 08:12 [facility] (Rec: 10/28/19 08:58 [facility] [id number]) Cardio Equipment Recumbent Stepper (Sci-Fit) Duration (Minutes) 10 Resistance 1.7 Seat Position 13 Treadmill Duration (Minutes) 10 Speed 1.5-1.7 Gym Equipment Shuttle Recovery Unilateral Squats Resistance 50 Shuttle Recovery Platform Stable Bilateral Squats Resistance 75 Shuttle Recovery Platform Stable Reps/Time 2x10 Shuttle Balance chains red Details standing bal feet parallel, stride Comments emphasis on postural alignment , core stab Therapeutic Exercises Supine Exercises LTR Reps/Minutes 10x Comments gentle with manual guidance SKTC Reps/Minutes 2x30 Comments manual HS stretch Reps/Minutes 2 x 30 Comments manual Manual Therapy Treatment Taping 2 Body Location right scapula Treatment Focus facilitation for scapular stabilization and postural alignment Comments 2 I strips between scapulae, 1 Y strip for lower trap facil (taping last session not helpful for LBP) PT-OP-R Modalities Start: 10/05/19 09:06 Freq: Status: Active Protocol: Document 10/28/19 08:12 [facility] (Rec: 10/28/19 16:07 [facility] [id number]) Hot Pack/Cold Pack Treatment lumbar spine Patient Position Hooklying Treatment Duration (minutes) 15 Patient Tolerance Good PT-OP-T Assessment and Plan Start: 10/05/19 09:06 Freq: Status: Active Protocol: Document 10/28/19 08:12 SAK (Rec: 10/28/19 08:58 [facility] [id number]) Physical Therapy Assessment Goals Five Impairment QuickDash UE disability index score 95% Short Term Goal (STG) Decrease Quickdash UE disability index score to no greater than 60% 07/30/19: good goal progress STG Duration MET Welfare Adviser Goal (LTG) Decrease Quickdash UE disability index score to no greater than 30% including able to reach overhead and behind his back for ADL's and usual daily activities without difficulty 07/30/19: good goal progress LTG Duration 08/28/19 Four Impairment poor scapular strength and stabilization right, dec coleen UE strength Short Term Goal (STG) Instruct in HEP for purposes of strengthening and scapular stabilization 07/30/19:Tolerating continued progression of ther ex STG Duration GOAL MET Retirement Goal (LTG) Improve UE strength to at least 4+/5 to allow full functional use of UE's 07/30/19: good progress LTG Duration 08/28/19 Three Impairment LBP 7/10 Short Term Goal (STG) Decrease LBP to no greater than 5/10 with usual activities STG Duration 11/16/19 Welfare Adviser Goal (LTG) Decrease LBP to no greater than 3/10 with usual activities LTG Duration 01/05/10 Two Impairment decreased activity tolerance Oswestry 58% Short Term Goal (STG) Decrease Oswestry Score to no greater than 45% STG Duration 11/16/19 Retirement Goal (LTG) Decrease Osweestry Score to no greater than 25% LTG Duration 01/05/20 One Impairment weakness LE's and core Short Term Goal (STG) Patient able to tolerate 45 min land-based exercises for the purpose of strengthening and core stabilization without an increase in pain or c/o excess fatigue STG Duration 11/16/19 Retirement Goal (LTG) Patient to be independent and compliant with HEP LTG Duration 01/05/20 Assessment Summary Assessment Kinesiotape to thoracolumbar paraspinals not helpful but requested previous taping for posture and scapular stabilization as has found very helpful. Fair tolerance for ther ex today. Has not gone to pool for independent aquatic exercise due to financial reasons. Physical Therapy Plan Frequency and Duration Frequency of Treatment 2x/Week Duration of Treatment 12 wks Plan of Care Start Date 10/05/19 Plan of Care End Date 01/05/20 Therapeutic Interventions Therapeutic Interventions Aquatic Therapy,Home Exercise Program,Manual Therapy, Neuromuscular Re-education, Patient/Caregiver Education, Self-Care/Home Management,Soft Tissue Mobilization,Taping, Therapeutic Activities, Therapeutic Exercises Modalities Cold Pack/Ice Massage,Electric Stimulation,Hot Packs, Ultrasound Next Visit Focus/Plan Next Note Type Treatment Note Next Visit Plan Progress ther ex as tolerated. Trial manual traction to l/s
--- NOTE | 2019-11-03 12:14 | PT.OTN ---
Current Diagnoses Radiculopathy, cervical region (11/03/19) Low back pain (11/03/19) Physical Therapy Treatment Note PT-OP-A Visit Information Start: 10/05/19 09:06 Freq: Status: Active Protocol: Document 11/03/19 12:06 SAK (Rec: 11/03/19 12:13 SAK [id number]) Out-Patient Physical Therapy Visit Information Visit Information Visit Type Treatment Note Visit Start Time 11:15 Visit Stop Time 12:14 Total Visit Minutes 59 Visit Number 8 Number of MANUFACTURING COORDINATOR Visits 0 Precautions Precautions prior lumbar and cervical fusions PT-OP-B Current Condition Start: 10/05/19 09:06 Freq: Status: Active Protocol: Document 10/05/19 09:07 SAK (Rec: 10/05/19 09:43 SAK [id number]) Current Condition History of Current Condition Onset Date years Current Complaints LBP History of Current Condition Patient reports he took a break from PT due to having a hard time attending PT consistently. Reports neck has recovered well, but returns to PT with c/o LBP. Reports severe pain especially with standing, walking, prolonged sitting. Only decreases with laying down. Reports also sharp pain into left scapular region. Is anticipating lumbar surgery. Prior Treatments and Tests Spinal fusion, LBP, cervical fusion Future Testing and Treatments Planned Sees Dr. King 10/16/19 to discuss back surgery Treatment Goals Patient/Caregiver Goals Decrease pain, be able to do usual activities without pain. Prior Functional Status Baseline Function- ADL's Independent Baseline Function- Mobility Independent Baseline Function- Gait independent, no pain Baseline Function- Recreation/Hobbies fishing without pain Current Functional Impairments (Reported) Functional Limitations- ADL's painful Functional Limitations- Mobility/Gait decreased distance, painful Functional Limitations- Recreation/ Painful to sit and tie flies, Hobbies fish PT-OP-C Subjective Start: 10/05/19 09:06 Freq: Status: Active Protocol: Document 11/03/19 12:06 SAK (Rec: 11/03/19 12:13 SAK [id number]) OP-PT Subjective Patient Comments Patient Comments Reports lumbar surgery will be January 06 PT-OP-G Mobility & Gait Start: 10/05/19 09:06 Freq: Status: Active Protocol: Document 10/05/19 09:07 SAK (Rec: 10/12/19 14:11 SAK [id number]) OP Mobility Evaluation Bed Mobility Rolling log roll reviewed Functional Movements Lifting and Carrying not tested today due to high pain level Squats poor body mechanics PT-OP-J Posture/Palpation/Skin Start: 10/05/19 09:06 Freq: Status: Active Protocol: Document 10/05/19 09:07 [facility] (Rec: 10/12/19 14:11 [facility] [id number]) Posture Evaluation Position Sitting Head/C-Spine Posture C-Spine Flattened T-Spine Posture Increased Kyphosis L-Spine Posture Increased Lordosis Shoulder Posture (L) Rounded,(R) Rounded,(L) Forward,(R) Forward,(R) Elevated Scapula Posture (R) Protracted,(R) Elevated Palpation Assessment Location cervical spine Palpation Findings Soft Tissue Tightness, Tenderness Palpation Details decreased muscle bulk left thoracolumbar spine as compared to right. PT-OP-K Range of Motion Start: 10/05/19 09:06 Freq: Status: Active Protocol: Document 10/05/19 09:07 [facility] (Rec: 10/12/19 14:11 [facility] [id number]) Lumbar Spine Range of Motion Lumbar Spine Active Testing Position Standing ROM Limitations Soft Tissue Tightness,Pain Comments moderate decrease all motions with c/o pain Hip Goniometric Range of Motion Hip coleen Hip ROM WFL No Testing Position Supine Flexion w/Knee Flexed 100 Straight Leg Raise 55 Extension 0 Internal Rotation 20 External Rotation 45 Hip ROM Limitations Hip ROM Limitations Soft Tissue Tightness,Muscle Weakness PT-OP-L Special Tests Start: 10/05/19 09:06 Freq: Status: Active Protocol: Document 10/05/19 09:07 [facility] (Rec: 10/12/19 14:11 [facility] [id number]) Special Tests Lumbar Spine Special Tests Straight Leg Raise Test Results negative Prone Press Up Test Results negative Slump Test Results negative PT-OP-M Strength Start: 10/05/19 09:06 Freq: Status: Active Protocol: Document 10/05/19 09:07 [facility] (Rec: 10/12/19 14:11 [facility] [id number]) Trunk Strength Trunk Manual Muscle Testing Flexion 4- Good- Extension 4- Good- Hip Strength Hip Manual Muscle Testing Right Flexion (L2) 4- Good- Extension (S1) 3+ Fair+ Abduction 4 Good External Rotation 3+ Fair+ Internal Rotation 4- Good- Left Flexion (L2) 4- Good- Extension (S1) 3+ Fair+ Abduction 4- Good- External Rotation 3+ Fair+ Internal Rotation 4- Good- Knee Strength Knee Manual Muscle Testing coleen Flexion (S2) 5 Normal Extension (L3) 4 Good Ankle/Foot Strength Ankle and Foot Manual Muscle Testing Right Dorsiflexion (L4) 4- Good- Plantarflexion (S1) 4 Good Left Dorsiflexion (L4) 4 Good Plantarflexion (S1) 4 Good PT-OP-Q Treatments Start: 10/05/19 09:06 Freq: Status: Active Protocol: Document 11/03/19 12:06 [facility] (Rec: 11/03/19 12:13 [facility] [id number]) Cardio Equipment Recumbent Stepper (Sci-Fit) Duration (Minutes) 12 Resistance 2.0 Seat Position 13 Gym Equipment Shuttle Recovery Unilateral Squats Resistance 50 Shuttle Recovery Platform Stable Bilateral Squats Resistance 75 Shuttle Recovery Platform Stable Reps/Time 2x10 Shuttle Balance chains red Details standing bal feet parallel, stride Comments emphasis on postural alignment , core stab Sport Cord sideways Cord/Resistance green Reps/Duration 5x backward Cord/Resistance green Reps/Duration 5x forward Cord/Resistance green Reps/Duration 5x Therapeutic Exercises Supine Exercises piriformis stretch Reps/Minutes 2x30 SKTC Reps/Minutes 2x30 Comments manual HS stretch Reps/Minutes 2 x 30 Comments manual Standing Exercises rows, shoulder ext Resistance L2 TB Reps/Minutes 10x Manual Therapy Treatment Taping 2 Body Location right scapula Treatment Focus facilitation for scapular stabilization and postural alignment Comments 2 I strips between scapulae, 1 Y strip for lower trap facil (taping last session not helpful for LBP) PT-OP-R Modalities Start: 10/05/19 09:06 Freq: Status: Active Protocol: Document 11/03/19 12:06 [facility] (Rec: 11/03/19 12:13 [facility] [id number]) Hot Pack/Cold Pack Treatment lumbar spine Patient Position Hooklying Treatment Duration (minutes) 15 Patient Tolerance Good PT-OP-T Assessment and Plan Start: 10/05/19 09:06 Freq: Status: Active Protocol: Document 11/03/19 12:06 [facility] (Rec: 11/03/19 12:13 [facility] [id number]) Physical Therapy Assessment Goals Five Impairment QuickDash UE disability index score 95% Short Term Goal (STG) Decrease Quickdash UE disability index score to no greater than 60% 9/19/19: good goal progress STG Duration MET Halfway Goal (LTG) Decrease Quickdash UE disability index score to no greater than 30% including able to reach overhead and behind his back for ADL's and usual daily activities without difficulty 07/30/19: good goal progress LTG Duration 08/28/19 Four Impairment poor scapular strength and stabilization right, dec coleen UE strength Short Term Goal (STG) Instruct in HEP for purposes of strengthening and scapular stabilization 07/30/19:Tolerating continued progression of ther ex STG Duration GOAL MET Aircraft Shipping Checker Goal (LTG) Improve UE strength to at least 4+/5 to allow full functional use of UE's 07/30/19: good progress LTG Duration 08/28/19 Three Impairment LBP 7/10 Short Term Goal (STG) Decrease LBP to no greater than 5/10 with usual activities STG Duration 11/16/19 Halfway Goal (LTG) Decrease LBP to no greater than 3/10 with usual activities LTG Duration 01/05/10 Two Impairment decreased activity tolerance Oswestry 58% Short Term Goal (STG) Decrease Oswestry Score to no greater than 45% STG Duration 11/16/19 Aircraft Shipping Checker Goal (LTG) Decrease Osweestry Score to no greater than 25% LTG Duration 01/05/20 One Impairment weakness LE's and core Short Term Goal (STG) Patient able to tolerate 45 min land-based exercises for the purpose of strengthening and core stabilization without an increase in pain or c/o excess fatigue STG Duration 11/16/19 Halfway Goal (LTG) Patient to be independent and compliant with HEP LTG Duration 01/05/20 Assessment Summary Assessment Patient reported minimal pain today, able to progress with ther ex. No manual traction today due to no need. Discussed probable discharge within a few visits prior to his back surgery, with anticipated PT after surgery. Physical Therapy Plan Frequency and Duration Frequency of Treatment 2x/Week Duration of Treatment 12 wks Plan of Care Start Date 10/05/19 Plan of Care End Date 01/05/20 Therapeutic Interventions Therapeutic Interventions Aquatic Therapy,Home Exercise Program,Manual Therapy, Neuromuscular Re-education, Patient/Caregiver Education, Self-Care/Home Management,Soft Tissue Mobilization,Taping, Therapeutic Activities, Therapeutic Exercises Modalities Cold Pack/Ice Massage,Electric Stimulation,Hot Packs, Ultrasound Next Visit Focus/Plan Next Note Type Treatment Note Next Visit Plan Continue to progress with ther ex as tolerated with emphasis on core stabilization. Modalities and manual therapy as indicated. Consider 1 aquatic therapy session to review patient program in preparation for discharge. Discuss POC further.
--- NOTE | 2019-11-06 15:58 | PT.OTN ---
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 Reports neck has recovered well, but returns to PT with c/o LBP. Reports severe pain especially with standing, walking, prolonged sitting. Only decreases with laying down. Reports also sharp pain into left scapular region. Is anticipating lumbar surgery. Prior Treatments and Tests Spinal fusion, LBP, cervical fusion Future Testing and Treatments Planned Sees Dr. King 10/16/19 to discuss back surgery Treatment Goals Patient/Caregiver Goals Decrease pain, be able to do usual activities without pain. Prior Functional Status Baseline Function- ADL's Independent Baseline Function- Mobility Independent Baseline Function- Gait independent, no pain Baseline Function- Recreation/Hobbies fishing without pain Current Functional Impairments (Reported) Functional Limitations- ADL's painful Functional Limitations- Mobility/Gait decreased distance, painful Functional Limitations- Recreation/ Painful to sit and tie flies, Hobbies fish PT-OP-C Subjective Start: 10/05/19 09:06 Freq: Status: Active Protocol: Document 11/06/19 12:30 LJ (Rec: 11/06/19 15:58 LJ [id number]) OP-PT Subjective Patient Comments Patient Comments Pt arrived at 11:12 and began standing stretches. Got out of pool for several minutes then returned. Pt states he intends to visit the pool on his own and would like some exercises to do on his own in the pool. PT-OP-G Mobility & Gait Start: 10/05/19 09:06 Freq: Status: Active Protocol: Document 10/05/19 09:07 [facility] (Rec: 10/12/19 14:11 [facility] [id number]) OP Mobility Evaluation Bed Mobility Rolling log roll reviewed Functional Movements Lifting and Carrying not tested today due to high pain level Squats poor body mechanics PT-OP-J Posture/Palpation/Skin Start: 10/05/19 09:06 Freq: Status: Active Protocol: Document 10/05/19 09:07 [facility] (Rec: 10/12/19 14:11 [facility] [id number]) Posture Evaluation Position Sitting Head/C-Spine Posture C-Spine Flattened T-Spine Posture Increased Kyphosis L-Spine Posture Increased Lordosis Shoulder Posture (L) Rounded,(R) Rounded,(L) Forward,(R) Forward,(R) Elevated Scapula Posture (R) Protracted,(R) Elevated Palpation Assessment Location cervical spine Palpation Findings Soft Tissue Tightness, Tenderness Palpation Details decreased muscle bulk left thoracolumbar spine as compared to right. PT-OP-K Range of Motion Start: 10/05/19 09:06 Freq: Status: Active Protocol: Document 10/05/19 09:07 [facility] (Rec: 10/12/19 14:11 [facility] [id number]) Lumbar Spine Range of Motion Lumbar Spine Active Testing Position Standing ROM Limitations Soft Tissue Tightness,Pain Comments moderate decrease all motions with c/o pain Hip Goniometric Range of Motion Hip coleen Hip ROM WFL No Testing Position Supine Flexion w/Knee Flexed 100 Straight Leg Raise 55 Extension 0 Internal Rotation 20 External Rotation 45 Hip ROM Limitations Hip ROM Limitations Soft Tissue Tightness,Muscle Weakness PT-OP-L Special Tests Start: 10/05/19 09:06 Freq: Status: Active Protocol: Document 10/05/19 09:07 [facility] (Rec: 10/12/19 14:11 [facility] [id number]) Special Tests Lumbar Spine Special Tests Straight Leg Raise Test Results negative Prone Press Up Test Results negative Slump Test Results negative PT-OP-M Strength Start: 10/05/19 09:06 Freq: Status: Active Protocol: Document 10/05/19 09:07 SAK (Rec: 10/12/19 14:11 [facility] [id number]) Trunk Strength Trunk Manual Muscle Testing Flexion 4- Good- Extension 4- Good- Hip Strength Hip Manual Muscle Testing Right Flexion (L2) 4- Good- Extension (S1) 3+ Fair+ Abduction 4 Good External Rotation 3+ Fair+ Internal Rotation 4- Good- Left Flexion (L2) 4- Good- Extension (S1) 3+ Fair+ Abduction 4- Good- External Rotation 3+ Fair+ Internal Rotation 4- Good- Knee Strength Knee Manual Muscle Testing coleen Flexion (S2) 5 Normal Extension (L3) 4 Good Ankle/Foot Strength Ankle and Foot Manual Muscle Testing Right Dorsiflexion (L4) 4- Good- Plantarflexion (S1) 4 Good Left Dorsiflexion (L4) 4 Good Plantarflexion (S1) 4 Good PT-OP-Q Treatments Start: 10/05/19 09:06 Freq: Status: Active Protocol: Document 11/03/19 12:06 [facility] (Rec: 11/03/19 12:13 SAK [id number]) Cardio Equipment Recumbent Stepper (Sci-Fit) Duration (Minutes) 12 Resistance 2.0 Seat Position 13 Gym Equipment Shuttle Recovery Unilateral Squats Resistance 50 Shuttle Recovery Platform Stable Bilateral Squats Resistance 75 Shuttle Recovery Platform Stable Reps/Time 2x10 Shuttle Balance chains red Details standing bal feet parallel, stride Comments emphasis on postural alignment , core stab Sport Cord sideways Cord/Resistance green Reps/Duration 5x backward Cord/Resistance green Reps/Duration 5x forward Cord/Resistance green Reps/Duration 5x Therapeutic Exercises Supine Exercises piriformis stretch Reps/Minutes 2x30 SKTC Reps/Minutes 2x30 Comments manual HS stretch Reps/Minutes 2 x 30 Comments manual Standing Exercises rows, shoulder ext Resistance L2 TB Reps/Minutes 10x Manual Therapy Treatment Taping 2 Body Location right scapula Treatment Focus facilitation for scapular stabilization and postural alignment Comments 2 I strips between scapulae, 1 Y strip for lower trap facil (taping last session not helpful for LBP) PT-OP-R Modalities Start: 10/05/19 09:06 Freq: Status: Active Protocol: Document 11/03/19 12:06 [facility] (Rec: 11/03/19 12:13 SAK [id number]) Hot Pack/Cold Pack Treatment lumbar spine Patient Position Hooklying Treatment Duration (minutes) 15 Patient Tolerance Good PT-OP-S Aquatic Treatment Start: 10/05/19 09:06 Freq: Status: Active Protocol: Document 11/06/19 12:30 LJ (Rec: 11/06/19 15:58 LJ [id number]) Aquatics Treatment Pool Entry/Exit Pool Entry/Exit Method Stairs Assistance Independent Water Walking Backwards Water Level Chest Level Comments forward BS Coleman Water Level Chest Level Gregory January Water Level Chest Level Comments arms HABD/ADD january Water Level Chest Level Level of Assistance Verbal Cues Comments UE reverse BS sideways with shoulder stab Comments with elbows bent at 90 deg Sideways Water Level Chest Level Level of Assistance Verbal Cues Comments ab/ad arms backward with reverse breastroke UE's Water Level Chest Level Level of Assistance Verbal Cues forward with breastroke UE's Water Level Chest Level Level of Assistance Verbal Cues Upper Extremity Exercises Unilateral pull downs Body Position Standing Water Level Chest Level Equipment Large Noodle Reps/Duration 12x2 bilat Comments cues for core stabilization lat pull downs Body Position Standing Water Level Chest Level Equipment Large Noodle Reps/Duration 15x2 Comments cues for scap stab and posture Upper Extremity Stretches pec stretch Details walk with UE drag Body Position Standing Harvard Activities Harvard Activities Bicycle,Cross [place],Hip Abduction/Adduction Other Activities pendulum forward backward rolls plank flutter kick Equipment floatation belt, med BBs Manual Techniques Aquatic Manual Traction Deep water hang #4, sm Blue float 6 min PT-OP-T Assessment and Plan Start: 10/05/19 09:06 Freq: Status: Active Protocol: Document 11/06/19 12:30 [facility] (Rec: 11/06/19 15:58 [facility] [id number]) Physical Therapy Assessment Rehab Potential Rehabilitation Potential Good Impairments Impairments Activity Tolerance,Pain, Posture,Strength Goals Five Impairment QuickDash UE disability index score 95% Short Term Goal (STG) Decrease Quickdash UE disability index score to no greater than 60% 07/30/19: good goal progress STG Duration MET Bobbin Sorter Goal (LTG) Decrease Quickdash UE disability index score to no greater than 30% including able to reach overhead and behind his back for ADL's and usual daily activities without difficulty 07/30/19: good goal progress LTG Duration 08/28/19 Four Impairment poor scapular strength and stabilization right, dec coleen UE strength Short Term Goal (STG) Instruct in HEP for purposes of strengthening and scapular stabilization 07/30/19:Tolerating continued progression of ther ex STG Duration GOAL MET Skilled Nursing Goal (LTG) Improve UE strength to at least 4+/5 to allow full functional use of UE's 07/30/19: good progress LTG Duration 08/28/19 Three Impairment LBP 7/10 Short Term Goal (STG) Decrease LBP to no greater than 5/10 with usual activities STG Duration 11/16/19 Bobbin Sorter Goal (LTG) Decrease LBP to no greater than 3/10 with usual activities LTG Duration 01/05/10 Two Impairment decreased activity tolerance Oswestry 58% Short Term Goal (STG) Decrease Oswestry Score to no greater than 45% STG Duration 11/16/19 Skilled Nursing Goal (LTG) Decrease Osweestry Score to no greater than 25% LTG Duration 01/05/20 One Impairment weakness LE's and core Short Term Goal (STG) Patient able to tolerate 45 min land-based exercises for the purpose of strengthening and core stabilization without an increase in pain or c/o excess fatigue STG Duration 11/16/19 Bobbin Sorter Goal (LTG) Patient to be independent and compliant with HEP LTG Duration 01/05/20 Assessment Summary Assessment Pt kvng was challenged with some of the walking exercises and required several cues for coordination. Able to perform deep water exercises w/o complaint of pain. Physical Therapy Plan Frequency and Duration Frequency of Treatment 2x/Week Duration of Treatment 12 wks Plan of Care Start Date 10/05/19 Plan of Care End Date 01/05/20 Therapeutic Interventions Therapeutic Interventions Aquatic Therapy,Home Exercise Program,Manual Therapy, Neuromuscular Re-education, Patient/Caregiver Education, Self-Care/Home Management,Soft Tissue Mobilization,Taping, Therapeutic Activities, Therapeutic Exercises Modalities Cold Pack/Ice Massage,Electric Stimulation,Hot Packs, Ultrasound Next Visit Focus/Plan Next Note Type Treatment Note Next Visit Plan Continue to progress with ther ex as tolerated with emphasis on core stabilization. Modalities and manual therapy as indicated. Provide aquatic HEP for independent pool exercise. Discuss POC further.
--- NOTE | 2019-11-09 16:45 | PT.OTN ---
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 Reports neck has recovered well, but returns to PT with c/o LBP. Reports severe pain especially with standing, walking, prolonged sitting. Only decreases with laying down. Reports also sharp pain into left scapular region. Is anticipating lumbar surgery. Prior Treatments and Tests Spinal fusion, LBP, cervical fusion Future Testing and Treatments Planned Sees Dr. King 10/16/19 to discuss back surgery Treatment Goals Patient/Caregiver Goals Decrease pain, be able to do usual activities without pain. Prior Functional Status Baseline Function- ADL's Independent Baseline Function- Mobility Independent Baseline Function- Gait independent, no pain Baseline Function- Recreation/Hobbies fishing without pain Current Functional Impairments (Reported) Functional Limitations- ADL's painful Functional Limitations- Mobility/Gait decreased distance, painful Functional Limitations- Recreation/ Painful to sit and tie flies, Hobbies fish PT-OP-C Subjective Start: 10/05/19 09:06 Freq: Status: Active Protocol: Document 11/09/19 08:13 SAK (Rec: 11/09/19 09:00 SAK [id number]) OP-PT Subjective Patient Comments Patient Comments Patient reports aquatic therapy went well, plans to do aquatic exercise on his own. Reports feeling stronger, improved compliance to HEP. States LBP sometimes still takes his breath away. PT-OP-G Mobility & Gait Start: 10/05/19 09:06 Freq: Status: Active Protocol: Document 10/05/19 09:07 [facility] (Rec: 10/12/19 14:11 [facility] [id number]) OP Mobility Evaluation Bed Mobility Rolling log roll reviewed Functional Movements Lifting and Carrying not tested today due to high pain level Squats poor body mechanics PT-OP-J Posture/Palpation/Skin Start: 10/05/19 09:06 Freq: Status: Active Protocol: Document 10/05/19 09:07 [facility] (Rec: 10/12/19 14:11 [facility] [id number]) Posture Evaluation Position Sitting Head/C-Spine Posture C-Spine Flattened T-Spine Posture Increased Kyphosis L-Spine Posture Increased Lordosis Shoulder Posture (L) Rounded,(R) Rounded,(L) Forward,(R) Forward,(R) Elevated Scapula Posture (R) Protracted,(R) Elevated Palpation Assessment Location cervical spine Palpation Findings Soft Tissue Tightness, Tenderness Palpation Details decreased muscle bulk left thoracolumbar spine as compared to right. PT-OP-K Range of Motion Start: 10/05/19 09:06 Freq: Status: Active Protocol: Document 10/05/19 09:07 [facility] (Rec: 10/12/19 14:11 [facility] [id number]) Lumbar Spine Range of Motion Lumbar Spine Active Testing Position Standing ROM Limitations Soft Tissue Tightness,Pain Comments moderate decrease all motions with c/o pain Hip Goniometric Range of Motion Hip coleen Hip ROM WFL No Testing Position Supine Flexion w/Knee Flexed 100 Straight Leg Raise 55 Extension 0 Internal Rotation 20 External Rotation 45 Hip ROM Limitations Hip ROM Limitations Soft Tissue Tightness,Muscle Weakness PT-OP-L Special Tests Start: 10/05/19 09:06 Freq: Status: Active Protocol: Document 10/05/19 09:07 [facility] (Rec: 10/12/19 14:11 [facility] [id number]) Special Tests Lumbar Spine Special Tests Straight Leg Raise Test Results negative Prone Press Up Test Results negative Slump Test Results negative PT-OP-M Strength Start: 10/05/19 09:06 Freq: Status: Active Protocol: Document 10/05/19 09:07 [facility] (Rec: 10/12/19 14:11 [facility] [id number]) Trunk Strength Trunk Manual Muscle Testing Flexion 4- Good- Extension 4- Good- Hip Strength Hip Manual Muscle Testing Right Flexion (L2) 4- Good- Extension (S1) 3+ Fair+ Abduction 4 Good External Rotation 3+ Fair+ Internal Rotation 4- Good- Left Flexion (L2) 4- Good- Extension (S1) 3+ Fair+ Abduction 4- Good- External Rotation 3+ Fair+ Internal Rotation 4- Good- Knee Strength Knee Manual Muscle Testing coleen Flexion (S2) 5 Normal Extension (L3) 4 Good Ankle/Foot Strength Ankle and Foot Manual Muscle Testing Right Dorsiflexion (L4) 4- Good- Plantarflexion (S1) 4 Good Left Dorsiflexion (L4) 4 Good Plantarflexion (S1) 4 Good PT-OP-Q Treatments Start: 10/05/19 09:06 Freq: Status: Active Protocol: Document 11/09/19 08:13 [facility]AK (Rec: 11/09/19 09:00 [facility]AK [id number]) Cardio Equipment Recumbent Stepper (Sci-Fit) Duration (Minutes) 10 Resistance 2.0 Seat Position 13 Gym Equipment Shuttle Recovery Unilateral Squats Resistance 62 Shuttle Recovery Platform Stable Bilateral Squats Resistance 87 Shuttle Recovery Platform Stable Reps/Time 2x10 Shuttle Balance chains red Details standing bal feet parallel, stride, side/side Comments emphasis on postural alignment , core stab Sport Cord backward Cord/Resistance green Reps/Duration 5x forward Cord/Resistance green Reps/Duration 5x Therapeutic Exercises Supine Exercises SKTC Reps/Minutes 2x30 Comments manual HS stretch Reps/Minutes 2 x 30 Comments manual Standing Exercises sidestepping Resistance L2 TB Reps/Minutes 10x Comments emphasis on core stabilization Manual Therapy Treatment Taping 2 Body Location right scapula Treatment Focus facilitation for scapular stabilization and postural alignment Comments 2 I strips between scapulae, 1 Y strip for lower trap facil (taping last session not helpful for LBP) PT-OP-R Modalities Start: 10/05/19 09:06 Freq: Status: Active Protocol: Document 11/09/19 08:13 [facility] (Rec: 11/09/19 16:45 [facility]AK [id number]) Hot Pack/Cold Pack Treatment lumbar spine Patient Position Hooklying Treatment Duration (minutes) 15 Patient Tolerance Good PT-OP-S Aquatic Treatment Start: 10/05/19 09:06 Freq: Status: Active Protocol: Document 11/06/19 12:30 [facility] (Rec: 11/06/19 15:58 [facility] [id number]) Aquatics Treatment Pool Entry/Exit Pool Entry/Exit Method Stairs Assistance Independent Water Walking Backwards Water Level Chest Level Comments forward BS [place] Water Level Chest Level [place] January Water Level Chest Level Comments arms HABD/ADD january Water Level Chest Level Level of Assistance Verbal Cues Comments UE reverse BS sideways with shoulder stab Comments with elbows bent at 90 deg Sideways Water Level Chest Level Level of Assistance Verbal Cues Comments ab/ad arms backward with reverse breastroke UE's Water Level Chest Level Level of Assistance Verbal Cues forward with breastroke UE's Water Level Chest Level Level of Assistance Verbal Cues Upper Extremity Exercises Unilateral pull downs Body Position Standing Water Level Chest Level Equipment Large Noodle Reps/Duration 12x2 bilat Comments cues for core stabilization lat pull downs Body Position Standing Water Level Chest Level Equipment Large Noodle Reps/Duration 15x2 Comments cues for scap stab and posture Upper Extremity Stretches pec stretch Details walk with UE drag Body Position Standing [place] Activities [place] Activities Bicycle,Cross [place],Hip Abduction/Adduction Other Activities pendulum forward backward rolls plank flutter kick Equipment floatation belt, med BBs Manual Techniques Aquatic Manual Traction Deep water hang #4, sm Blue float 6 min PT-OP-T Assessment and Plan Start: 10/05/19 09:06 Freq: Status: Active Protocol: Document 11/09/19 08:13 [facility] (Rec: 11/09/19 09:00 [facility] [id number]) Physical Therapy Assessment Goals Five Impairment QuickDash UE disability index score 95% Short Term Goal (STG) Decrease Quickdash UE disability index score to no greater than 60% 07/30/19: good goal progress STG Duration MET Swift Tender Goal (LTG) Decrease Quickdash UE disability index score to no greater than 30% including able to reach overhead and behind his back for ADL's and usual daily activities without difficulty 07/30/19: good goal progress LTG Duration 08/28/19 Four Impairment poor scapular strength and stabilization right, dec coleen UE strength Short Term Goal (STG) Instruct in HEP for purposes of strengthening and scapular stabilization 07/30/19:Tolerating continued progression of ther ex STG Duration GOAL MET Swift Tender Goal (LTG) Improve UE strength to at least 4+/5 to allow full functional use of UE's 07/30/19: good progress LTG Duration 08/28/19 Three Impairment LBP 7/10 Short Term Goal (STG) Decrease LBP to no greater than 5/10 with usual activities STG Duration 11/16/19 Swift Tender Goal (LTG) Decrease LBP to no greater than 3/10 with usual activities LTG Duration 01/05/10 Two Impairment decreased activity tolerance Oswestry 58% Short Term Goal (STG) Decrease Oswestry Score to no greater than 45% STG Duration 11/16/19 [facility] Goal (LTG) Decrease Osweestry Score to no greater than 25% LTG Duration 01/05/20 One Impairment weakness LE's and core Short Term Goal (STG) Patient able to tolerate 45 min land-based exercises for the purpose of strengthening and core stabilization without an increase in pain or c/o excess fatigue STG Duration 11/16/19 Swift Tender Goal (LTG) Patient to be independent and compliant with HEP LTG Duration 01/05/20 Assessment Summary Assessment Improving activity tolerance overall though reports back pain persists, will be having surgery in December. Agreeable to transition to independent aquatic ex program and HEP within a few visits. Anticipate furthre PT after his surgery. Physical Therapy Plan Frequency and Duration Frequency of Treatment 2x/Week Duration of Treatment 12 wks Plan of Care Start Date 10/05/19 Plan of Care End Date 01/05/20 Therapeutic Interventions Therapeutic Interventions Aquatic Therapy,Home Exercise Program,Manual Therapy, Neuromuscular Re-education, Patient/Caregiver Education, Self-Care/Home Management,Soft Tissue Mobilization,Taping, Therapeutic Activities, Therapeutic Exercises Modalities Cold Pack/Ice Massage,Electric Stimulation,Hot Packs, Ultrasound Next Visit Focus/Plan Next Note Type Treatment Note Next Visit Plan Continue to progress with ther ex as tolerated with emphasis on core stabilization. Modalities and manual therapy as indicated.
--- NOTE | 2019-11-17 12:09 | PT.OTN ---
Current Diagnoses Radiculopathy, cervical region (11/17/19) Low back pain (11/17/19) Physical Therapy Treatment Note PT-OP-A Visit Information Start: 10/05/19 09:06 Freq: Status: Active Protocol: Document 11/17/19 08:08 [facility]AK (Rec: 11/17/19 09:00 SAK [id number]) Out-Patient Physical Therapy Visit Information Visit Information Visit Type Treatment Note Visit Start Time 08:05 Visit Stop Time 09:05 Total Visit Minutes 60 Visit Number 10 Number of CHAIN HOIST OPERATOR Visits 0 Precautions Precautions prior lumbar and cervical fusions PT-OP-B Current Condition Start: 10/05/19 09:06 Freq: Status: Active Protocol: Document 10/05/19 09:07 [facility]AK (Rec: 10/05/19 09:43 SAK [id number]) Current Condition History of Current Condition Onset Date years Current Complaints LBP History of Current Condition Patient reports he took a break from PT due to having a hard time attending PT consistently. Reports neck has recovered well, but returns to PT with c/o LBP. Reports severe pain especially with standing, walking, prolonged sitting. Only decreases with laying down. Reports also sharp pain into left scapular region. Is anticipating lumbar surgery. Prior Treatments and Tests Spinal fusion, LBP, cervical fusion Future Testing and Treatments Planned Sees Dr. King 10/16/19 to discuss back surgery Treatment Goals Patient/Caregiver Goals Decrease pain, be able to do usual activities without pain. Prior Functional Status Baseline Function- ADL's Independent Baseline Function- Mobility Independent Baseline Function- Gait independent, no pain Baseline Function- Recreation/Hobbies fishing without pain Current Functional Impairments (Reported) Functional Limitations- ADL's painful Functional Limitations- Mobility/Gait decreased distance, painful Functional Limitations- Recreation/ Painful to sit and tie flies, Hobbies fish PT-OP-C Subjective Start: 10/05/19 09:06 Freq: Status: Active Protocol: Document 11/17/19 08:08 [facility] (Rec: 11/17/19 09:00 [facility]AK [id number]) OP-PT Subjective Patient Comments Patient Comments Reports since having his flu shot 11/10/20 his back blew up, body was achy, stomache upset, nerve lateral lower leg painful. States LBP 7-8/10, difficulty tying shoes this am , poor sleep. Pressure pain in LB. PT-OP-G Mobility & Gait Start: 10/05/19 09:06 Freq: Status: Active Protocol: Document 10/05/19 09:07 [facility] (Rec: 10/12/19 14:11 [facility] [id number]) OP Mobility Evaluation Bed Mobility Rolling log roll reviewed Functional Movements Lifting and Carrying not tested today due to high pain level Squats poor body mechanics PT-OP-J Posture/Palpation/Skin Start: 10/05/19 09:06 Freq: Status: Active Protocol: Document 10/05/19 09:07 [facility] (Rec: 10/12/19 14:11 [facility] [id number]) Posture Evaluation Position Sitting Head/C-Spine Posture C-Spine Flattened T-Spine Posture Increased Kyphosis L-Spine Posture Increased Lordosis Shoulder Posture (L) Rounded,(R) Rounded,(L) Forward,(R) Forward,(R) Elevated Scapula Posture (R) Protracted,(R) Elevated Palpation Assessment Location cervical spine Palpation Findings Soft Tissue Tightness, Tenderness Palpation Details decreased muscle bulk left thoracolumbar spine as compared to right. PT-OP-K Range of Motion Start: 10/05/19 09:06 Freq: Status: Active Protocol: Document 10/05/19 09:07 [facility] (Rec: 10/12/19 14:11 [facility] [id number]) Lumbar Spine Range of Motion Lumbar Spine Active Testing Position Standing ROM Limitations Soft Tissue Tightness,Pain Comments moderate decrease all motions with c/o pain Hip Goniometric Range of Motion Hip coleen Hip ROM WFL No Testing Position Supine Flexion w/Knee Flexed 100 Straight Leg Raise 55 Extension 0 Internal Rotation 20 External Rotation 45 Hip ROM Limitations Hip ROM Limitations Soft Tissue Tightness,Muscle Weakness PT-OP-L Special Tests Start: 10/05/19 09:06 Freq: Status: Active Protocol: Document 10/05/19 09:07 [facility] (Rec: 10/12/19 14:11 [facility] [id number]) Special Tests Lumbar Spine Special Tests Straight Leg Raise Test Results negative Prone Press Up Test Results negative Slump Test Results negative PT-OP-M Strength Start: 10/05/19 09:06 Freq: Status: Active Protocol: Document 10/05/19 09:07 [facility] (Rec: 10/12/19 14:11 [facility] [id number]) Trunk Strength Trunk Manual Muscle Testing Flexion 4- Good- Extension 4- Good- Hip Strength Hip Manual Muscle Testing Right Flexion (L2) 4- Good- Extension (S1) 3+ Fair+ Abduction 4 Good External Rotation 3+ Fair+ Internal Rotation 4- Good- Left Flexion (L2) 4- Good- Extension (S1) 3+ Fair+ Abduction 4- Good- External Rotation 3+ Fair+ Internal Rotation 4- Good- Knee Strength Knee Manual Muscle Testing coleen Flexion (S2) 5 Normal Extension (L3) 4 Good Ankle/Foot Strength Ankle and Foot Manual Muscle Testing Right Dorsiflexion (L4) 4- Good- Plantarflexion (S1) 4 Good Left Dorsiflexion (L4) 4 Good Plantarflexion (S1) 4 Good PT-OP-Q Treatments Start: 10/05/19 09:06 Freq: Status: Active Protocol: Document 11/17/19 08:08 [facility] (Rec: 11/17/19 09:00 [facility] [id number]) Cardio Equipment Recumbent Stepper (Sci-Fit) Duration (Minutes) 4 Resistance 1.0 Seat Position 13 Therapeutic Exercises Supine Exercises piriformis stretch Reps/Minutes 2x30 LTR Reps/Minutes 10x Comments gentle with manual guidance pec stretch Reps/Minutes 2x30 SKTC Reps/Minutes 2x30 Comments manual HS stretch Reps/Minutes 2 x 30 Comments manual TrA with ball squeeze Reps/Minutes 10x TrA Reps/Minutes 10x shoulder hor ab Reps/Minutes 10x Comments end-range stretch after 10 Manual Therapy Treatment Soft Tissue Mobilization lumbar spine Mobilization Type Myofascial Release,Strumming Body Position left sidelying Manual Traction Lumbar Body Position Hooklying Reps/Duration 5 min, strap PT-OP-R Modalities Start: 10/05/19 09:06 Freq: Status: Active Protocol: Document 11/17/19 08:08 [facility] (Rec: 11/17/19 09:00 [facility] [id number]) Hot Pack/Cold Pack Treatment lumbar spine Patient Position Hooklying Treatment Duration (minutes) 15 Patient Tolerance Good PT-OP-S Aquatic Treatment Start: 10/05/19 09:06 Freq: Status: Active Protocol: Document 11/06/19 12:30 [facility] (Rec: 11/06/19 15:58 [facility] [id number]) Aquatics Treatment Pool Entry/Exit Pool Entry/Exit Method Stairs Assistance Independent Water Walking Backwards Water Level Chest Level Comments forward BS [place] Water Level Chest Level [place] January Water Level Chest Level Comments arms HABD/ADD january Water Level Chest Level Level of Assistance Verbal Cues Comments UE reverse BS sideways with shoulder stab Comments with elbows bent at 90 deg Sideways Water Level Chest Level Level of Assistance Verbal Cues Comments ab/ad arms backward with reverse breastroke UE's Water Level Chest Level Level of Assistance Verbal Cues forward with breastroke UE's Water Level Chest Level Level of Assistance Verbal Cues Upper Extremity Exercises Unilateral pull downs Body Position Standing Water Level Chest Level Equipment Large Noodle Reps/Duration 12x2 bilat Comments cues for core stabilization lat pull downs Body Position Standing Water Level Chest Level Equipment Large Noodle Reps/Duration 15x2 Comments cues for scap stab and posture Upper Extremity Stretches pec stretch Details walk with UE drag Body Position Standing [place] Activities [place] Activities Bicycle,Cross [place],Hip Abduction/Adduction Other Activities pendulum forward backward rolls plank flutter kick Equipment floatation belt, med BBs Manual Techniques Aquatic Manual Traction Deep water hang #4, sm Blue float 6 min PT-OP-T Assessment and Plan Start: 10/05/19 09:06 Freq: Status: Active Protocol: Document 11/17/19 08:08 [facility] (Rec: 11/17/19 09:00 [facility] [id number]) Physical Therapy Assessment Impairments Impairments Activity Tolerance,Pain, Posture,Strength Goals Five Impairment QuickDash UE disability index score 95% Short Term Goal (STG) Decrease Quickdash UE disability index score to no greater than 60% 07/30/19: good goal progress STG Duration MET In Store Banker Goal (LTG) Decrease Quickdash UE disability index score to no greater than 30% including able to reach overhead and behind his back for ADL's and usual daily activities without difficulty 07/30/19: good goal progress LTG Duration 08/28/19 Four Impairment poor scapular strength and stabilization right, dec coleen UE strength Short Term Goal (STG) Instruct in HEP for purposes of strengthening and scapular stabilization 07/30/19:Tolerating continued progression of ther ex STG Duration GOAL MET Residential Goal (LTG) Improve UE strength to at least 4+/5 to allow full functional use of UE's 07/30/19: good progress LTG Duration 08/28/19 Three Impairment LBP 05/20 Short Term Goal (STG) Decrease LBP to no greater than 5/10 with usual activities STG Duration 11/16/19 Residential Goal (LTG) Decrease LBP to no greater than 3/10 with usual activities LTG Duration 01/05/10 Two Impairment decreased activity tolerance Oswestry 58% Short Term Goal (STG) Decrease Oswestry Score to no greater than 45% STG Duration 11/16/19 In Store Banker Goal (LTG) Decrease Osweestry Score to no greater than 25% LTG Duration 01/05/20 One Impairment weakness LE's and core Short Term Goal (STG) Patient able to tolerate 45 min land-based exercises for the purpose of strengthening and core stabilization without an increase in pain or c/o excess fatigue STG Duration 11/16/19 In Store Banker Goal (LTG) Patient to be independent and compliant with HEP LTG Duration 01/05/20 Assessment Summary Assessment Patient demonstrated poor tolerance to ther ex today; appears to have developed flu symtoms following shot with overall pain. Encouraged to continue with moist heat and gentle exercise at home. Physical Therapy Plan Frequency and Duration Frequency of Treatment 2x/Week Duration of Treatment 12 wks Plan of Care Start Date 10/05/19 Plan of Care End Date 01/05/20 Therapeutic Interventions Therapeutic Interventions Aquatic Therapy,Home Exercise Program,Manual Therapy, Neuromuscular Re-education, Patient/Caregiver Education, Self-Care/Home Management,Soft Tissue Mobilization,Taping, Therapeutic Activities, Therapeutic Exercises Modalities Cold Pack/Ice Massage,Electric Stimulation,Hot Packs, Ultrasound Next Visit Focus/Plan Next Note Type Treatment Note Next Visit Plan Progress as tolerated. Further manual traction if indicated; patient had good response today.
--- NOTE | 2019-11-23 10:07 | PT.OTN ---
Current Diagnoses Radiculopathy, cervical region (11/23/19) Low back pain (11/23/19) Physical Therapy Treatment Note PT-OP-A Visit Information Start: 10/05/19 09:06 Freq: Status: Active Protocol: Document 11/23/19 08:17 SAK (Rec: 11/23/19 08:45 SAK [id number]) Out-Patient Physical Therapy Visit Information Visit Information Visit Type Treatment Note Visit Start Time 08:15 Visit Stop Time 09:15 Total Visit Minutes 60 Visit Number 11 Number of CHIROPRACTIC TEACHER Visits 0 Precautions Precautions prior lumbar and cervical fusions PT-OP-B Current Condition Start: 10/05/19 09:06 Freq: Status: Active Protocol: Document 10/05/19 09:07 SAK (Rec: 10/05/19 09:43 SAK [id number]) Current Condition History of Current Condition Onset Date years Current Complaints LBP History of Current Condition Patient reports he took a break from PT due to having a hard time attending PT consistently. Reports neck has recovered well, but returns to PT with c/o LBP. Reports severe pain especially with standing, walking, prolonged sitting. Only decreases with laying down. Reports also sharp pain into left scapular region. Is anticipating lumbar surgery. Prior Treatments and Tests Spinal fusion, LBP, cervical fusion Future Testing and Treatments Planned Sees Dr. King 10/16/19 to discuss back surgery Treatment Goals Patient/Caregiver Goals Decrease pain, be able to do usual activities without pain. Prior Functional Status Baseline Function- ADL's Independent Baseline Function- Mobility Independent Baseline Function- Gait independent, no pain Baseline Function- Recreation/Hobbies fishing without pain Current Functional Impairments (Reported) Functional Limitations- ADL's painful Functional Limitations- Mobility/Gait decreased distance, painful Functional Limitations- Recreation/ Painful to sit and tie flies, Hobbies fish PT-OP-C Subjective Start: 10/05/19 09:06 Freq: Status: Active Protocol: Document 11/23/19 08:17 SAK (Rec: 11/23/19 08:45 SAK [id number]) OP-PT Subjective Patient Comments Patient Comments I was in good shape when I left here, not doing well today. Decreased tolerance to sitting. Reports he liked the manual traction trialed last session. PT-OP-G Mobility & Gait Start: 10/05/19 09:06 Freq: Status: Active Protocol: Document 10/05/19 09:07 [facility] (Rec: 10/12/19 14:11 [facility] [id number]) OP Mobility Evaluation Bed Mobility Rolling log roll reviewed Functional Movements Lifting and Carrying not tested today due to high pain level Squats poor body mechanics PT-OP-J Posture/Palpation/Skin Start: 10/05/19 09:06 Freq: Status: Active Protocol: Document 10/05/19 09:07 [facility] (Rec: 10/12/19 14:11 [facility] [id number]) Posture Evaluation Position Sitting Head/C-Spine Posture C-Spine Flattened T-Spine Posture Increased Kyphosis L-Spine Posture Increased Lordosis Shoulder Posture (L) Rounded,(R) Rounded,(L) Forward,(R) Forward,(R) Elevated Scapula Posture (R) Protracted,(R) Elevated Palpation Assessment Location cervical spine Palpation Findings Soft Tissue Tightness, Tenderness Palpation Details decreased muscle bulk left thoracolumbar spine as compared to right. PT-OP-K Range of Motion Start: 10/05/19 09:06 Freq: Status: Active Protocol: Document 10/05/19 09:07 [facility] (Rec: 10/12/19 14:11 [facility] [id number]) Lumbar Spine Range of Motion Lumbar Spine Active Testing Position Standing ROM Limitations Soft Tissue Tightness,Pain Comments moderate decrease all motions with c/o pain Hip Goniometric Range of Motion Hip coleen Hip ROM WFL No Testing Position Supine Flexion w/Knee Flexed 100 Straight Leg Raise 55 Extension 0 Internal Rotation 20 External Rotation 45 Hip ROM Limitations Hip ROM Limitations Soft Tissue Tightness,Muscle Weakness PT-OP-L Special Tests Start: 10/05/19 09:06 Freq: Status: Active Protocol: Document 10/05/19 09:07 [facility] (Rec: 10/12/19 14:11 [facility] [id number]) Special Tests Lumbar Spine Special Tests Straight Leg Raise Test Results negative Prone Press Up Test Results negative Slump Test Results negative PT-OP-M Strength Start: 10/05/19 09:06 Freq: Status: Active Protocol: Document 10/05/19 09:07 [facility] (Rec: 10/12/19 14:11 [facility] [id number]) Trunk Strength Trunk Manual Muscle Testing Flexion 4- Good- Extension 4- Good- Hip Strength Hip Manual Muscle Testing Right Flexion (L2) 4- Good- Extension (S1) 3+ Fair+ Abduction 4 Good External Rotation 3+ Fair+ Internal Rotation 4- Good- Left Flexion (L2) 4- Good- Extension (S1) 3+ Fair+ Abduction 4- Good- External Rotation 3+ Fair+ Internal Rotation 4- Good- Knee Strength Knee Manual Muscle Testing coleen Flexion (S2) 5 Normal Extension (L3) 4 Good Ankle/Foot Strength Ankle and Foot Manual Muscle Testing Right Dorsiflexion (L4) 4- Good- Plantarflexion (S1) 4 Good Left Dorsiflexion (L4) 4 Good Plantarflexion (S1) 4 Good PT-OP-Q Treatments Start: 10/05/19 09:06 Freq: Status: Active Protocol: Document 11/23/19 08:17 SAK (Rec: 11/23/19 08:45 SAK [id number]) Cardio Equipment Recumbent Stepper (Sci-Fit) Duration (Minutes) 7 Resistance 2.0 Seat Position 13 Treadmill Duration (Minutes) 5 Speed 1.9 Gym Equipment Shuttle Recovery Unilateral Squats Resistance 62 Shuttle Recovery Platform Stable Bilateral Squats Resistance 87 Shuttle Recovery Platform Stable Reps/Time 2x10 Shuttle Balance chains red Details standing bal feet parallel, stride, side/side Comments emphasis on postural alignment , core stab Therapeutic Exercises Supine Exercises piriformis stretch Reps/Minutes 2x30 LTR Reps/Minutes 10x Comments gentle with manual guidance pec stretch Reps/Minutes 2x30 SKTC Reps/Minutes 2x30 Comments manual Standing Exercises HC stretch Equipment Used ORLIN Reps/Minutes 2x hip flex stretch Reps/Minutes 2x Comments stair lunge HS stretch Reps/Minutes 2x Manual Therapy Treatment Manual Traction Lumbar Body Position Hooklying Reps/Duration 10 min, strap PT-OP-R Modalities Start: 10/05/19 09:06 Freq: Status: Active Protocol: Document 11/23/19 08:17 SAK (Rec: 11/23/19 08:45 [facility] [id number]) Hot Pack/Cold Pack Treatment lumbar spine Patient Position Hooklying Treatment Duration (minutes) 15 Patient Tolerance Good PT-OP-S Aquatic Treatment Start: 10/05/19 09:06 Freq: Status: Active Protocol: Document 11/06/19 12:30 LJ (Rec: 11/06/19 15:58 LJ [id number]) Aquatics Treatment Pool Entry/Exit Pool Entry/Exit Method Stairs Assistance Independent Water Walking Backwards Water Level Chest Level Comments forward BS [place] Water Level Chest Level [place] January Water Level Chest Level Comments arms HABD/ADD january Water Level Chest Level Level of Assistance Verbal Cues Comments UE reverse BS sideways with shoulder stab Comments with elbows bent at 90 deg Sideways Water Level Chest Level Level of Assistance Verbal Cues Comments ab/ad arms backward with reverse breastroke UE's Water Level Chest Level Level of Assistance Verbal Cues forward with breastroke UE's Water Level Chest Level Level of Assistance Verbal Cues Upper Extremity Exercises Unilateral pull downs Body Position Standing Water Level Chest Level Equipment Large Noodle Reps/Duration 12x2 bilat Comments cues for core stabilization lat pull downs Body Position Standing Water Level Chest Level Equipment Large Noodle Reps/Duration 15x2 Comments cues for scap stab and posture Upper Extremity Stretches pec stretch Details walk with UE drag Body Position Standing [place] Activities [place] Activities Bicycle,Cross [place],Hip Abduction/Adduction Other Activities pendulum forward backward rolls plank flutter kick Equipment floatation belt, med BBs Manual Techniques Aquatic Manual Traction Deep water hang #4, sm Blue float 6 min PT-OP-T Assessment and Plan Start: 10/05/19 09:06 Freq: Status: Active Protocol: Document 11/23/19 08:17 SAK (Rec: 11/23/19 08:45 [facility] [id number]) Physical Therapy Assessment Impairments Impairments Activity Tolerance,Pain, Posture,Strength Goals Five Impairment QuickDash UE disability index score 95% Short Term Goal (STG) Decrease Quickdash UE disability index score to no greater than 60% 07/30/19: good goal progress STG Duration MET Detention Goal (LTG) Decrease Quickdash UE disability index score to no greater than 30% including able to reach overhead and behind his back for ADL's and usual daily activities without difficulty 07/30/19: good goal progress LTG Duration 08/28/19 Four Impairment poor scapular strength and stabilization right, dec coleen UE strength Short Term Goal (STG) Instruct in HEP for purposes of strengthening and scapular stabilization 07/30/19:Tolerating continued progression of ther ex STG Duration GOAL MET Detention Goal (LTG) Improve UE strength to at least 4+/5 to allow full functional use of UE's 07/30/19: good progress LTG Duration 08/28/19 Three Impairment LBP 05/20 Short Term Goal (STG) Decrease LBP to no greater than 5/10 with usual activities STG Duration 11/16/19 Firmware Architect Goal (LTG) Decrease LBP to no greater than 3/10 with usual activities LTG Duration 01/05/10 Two Impairment decreased activity tolerance Oswestry 58% Short Term Goal (STG) Decrease Oswestry Score to no greater than 45% STG Duration 11/16/19 Firmware Architect Goal (LTG) Decrease Osweestry Score to no greater than 25% LTG Duration 01/05/20 One Impairment weakness LE's and core Short Term Goal (STG) Patient able to tolerate 45 min land-based exercises for the purpose of strengthening and core stabilization without an increase in pain or c/o excess fatigue STG Duration 11/16/19 Detention Goal (LTG) Patient to be independent and compliant with HEP LTG Duration 01/05/20 Physical Therapy Plan Frequency and Duration Frequency of Treatment 2x/Week Duration of Treatment 12 wks Plan of Care Start Date 10/05/19 Plan of Care End Date 01/05/20 Therapeutic Interventions Therapeutic Interventions Aquatic Therapy,Home Exercise Program,Manual Therapy, Neuromuscular Re-education, Patient/Caregiver Education, Self-Care/Home Management,Soft Tissue Mobilization,Taping, Therapeutic Activities, Therapeutic Exercises Modalities Cold Pack/Ice Massage,Electric Stimulation,Hot Packs, Ultrasound Next Visit Focus/Plan Next Note Type Treatment Note Next Visit Plan Progress strengthening and core stabilization as possible . Patient to restart aquatic exercise as previously instructed.
--- NOTE | 2019-12-07 15:16 | PT.OTN ---
Current Diagnoses Radiculopathy, cervical region (12/07/19) Low back pain (12/07/19) Physical Therapy Treatment Note PT-OP-A Visit Information Start: 10/05/19 09:06 Freq: Status: Active Protocol: Document 12/07/19 14:15 LJ (Rec: 12/07/19 15:15 LJ [id number]) Out-Patient Physical Therapy Visit Information Visit Information Visit Type Treatment Note Visit Start Time 14:15 Visit Stop Time 15:00 Total Visit Minutes 45 Visit Number 12 Number of LEADER WRITER Visits 1 Precautions Precautions prior lumbar and cervical fusions PT-OP-B Current Condition Start: 10/05/19 09:06 Freq: Status: Active Protocol: Document 10/05/19 09:07 SAK (Rec: 10/05/19 09:43 SAK [id number]) Current Condition History of Current Condition Onset Date years Current Complaints LBP History of Current Condition Patient reports he took a break from PT due to having a hard time attending PT consistently. Reports neck has recovered well, but returns to PT with c/o LBP. Reports severe pain especially with standing, walking, prolonged sitting. Only decreases with laying down. Reports also sharp pain into left scapular region. Is anticipating lumbar surgery. Prior Treatments and Tests Spinal fusion, LBP, cervical fusion Future Testing and Treatments Planned Sees Dr. King 10/16/19 to discuss back surgery Treatment Goals Patient/Caregiver Goals Decrease pain, be able to do usual activities without pain. Prior Functional Status Baseline Function- ADL's Independent Baseline Function- Mobility Independent Baseline Function- Gait independent, no pain Baseline Function- Recreation/Hobbies fishing without pain Current Functional Impairments (Reported) Functional Limitations- ADL's painful Functional Limitations- Mobility/Gait decreased distance, painful Functional Limitations- Recreation/ Painful to sit and tie flies, Hobbies fish PT-OP-C Subjective Start: 10/05/19 09:06 Freq: Status: Active Protocol: Document 12/07/19 14:15 LJ (Rec: 12/07/19 15:15 LJ [id number]) OP-PT Subjective Patient Comments Patient Comments Pt arrived 45 min early. Stated he looked at the clock wrong. Pt speaking of how much weight he has lost. Also complaining of how poor his balance is. As he was walking into the gym he lost his balance x2 and self recovered. PT-OP-G Mobility & Gait Start: 10/05/19 09:06 Freq: Status: Active Protocol: Document 10/05/19 09:07 [facility] (Rec: 10/12/19 14:11 [facility] [id number]) OP Mobility Evaluation Bed Mobility Rolling log roll reviewed Functional Movements Lifting and Carrying not tested today due to high pain level Squats poor body mechanics PT-OP-J Posture/Palpation/Skin Start: 10/05/19 09:06 Freq: Status: Active Protocol: Document 10/05/19 09:07 [facility] (Rec: 10/12/19 14:11 [facility] [id number]) Posture Evaluation Position Sitting Head/C-Spine Posture C-Spine Flattened T-Spine Posture Increased Kyphosis L-Spine Posture Increased Lordosis Shoulder Posture (L) Rounded,(R) Rounded,(L) Forward,(R) Forward,(R) Elevated Scapula Posture (R) Protracted,(R) Elevated Palpation Assessment Location cervical spine Palpation Findings Soft Tissue Tightness, Tenderness Palpation Details decreased muscle bulk left thoracolumbar spine as compared to right. PT-OP-K Range of Motion Start: 10/05/19 09:06 Freq: Status: Active Protocol: Document 10/05/19 09:07 [facility] (Rec: 10/12/19 14:11 [facility] [id number]) Lumbar Spine Range of Motion Lumbar Spine Active Testing Position Standing ROM Limitations Soft Tissue Tightness,Pain Comments moderate decrease all motions with c/o pain Hip Goniometric Range of Motion Hip coleen Hip ROM WFL No Testing Position Supine Flexion w/Knee Flexed 100 Straight Leg Raise 55 Extension 0 Internal Rotation 20 External Rotation 45 Hip ROM Limitations Hip ROM Limitations Soft Tissue Tightness,Muscle Weakness PT-OP-L Special Tests Start: 10/05/19 09:06 Freq: Status: Active Protocol: Document 10/05/19 09:07 [facility] (Rec: 10/12/19 14:11 [facility] [id number]) Special Tests Lumbar Spine Special Tests Straight Leg Raise Test Results negative Prone Press Up Test Results negative Slump Test Results negative PT-OP-M Strength Start: 10/05/19 09:06 Freq: Status: Active Protocol: Document 10/05/19 09:07 SAK (Rec: 10/12/19 14:11 [facility] [id number]) Trunk Strength Trunk Manual Muscle Testing Flexion 4- Good- Extension 4- Good- Hip Strength Hip Manual Muscle Testing Right Flexion (L2) 4- Good- Extension (S1) 3+ Fair+ Abduction 4 Good External Rotation 3+ Fair+ Internal Rotation 4- Good- Left Flexion (L2) 4- Good- Extension (S1) 3+ Fair+ Abduction 4- Good- External Rotation 3+ Fair+ Internal Rotation 4- Good- Knee Strength Knee Manual Muscle Testing coleen Flexion (S2) 5 Normal Extension (L3) 4 Good Ankle/Foot Strength Ankle and Foot Manual Muscle Testing Right Dorsiflexion (L4) 4- Good- Plantarflexion (S1) 4 Good Left Dorsiflexion (L4) 4 Good Plantarflexion (S1) 4 Good PT-OP-Q Treatments Start: 10/05/19 09:06 Freq: Status: Active Protocol: Document 12/07/19 14:15 [facility] (Rec: 12/07/19 15:15 LJ [id number]) Cardio Equipment Recumbent Stepper (Sci-Fit) Duration (Minutes) 10 Resistance 2.0 Seat Position 15 Treadmill Duration (Minutes) 5 Speed 1.8 Gym Equipment Shuttle Balance chains red Details standing bal feet parallel, stride, side/side Comments emphasis on postural alignment , core stab Therapeutic Exercises Standing Exercises hip extension Side bilateral Equipment Used #3 band Reps/Minutes 8 hip abduction Side bilateral Equipment Used #3 band Reps/Minutes 12 Comments pt fatigued and needed rest break. Continued to perform in seated position PT-OP-R Modalities Start: 10/05/19 09:06 Freq: Status: Active Protocol: Document 11/23/19 08:17 SAK (Rec: 11/23/19 08:45 SAK [id number]) Hot Pack/Cold Pack Treatment lumbar spine Patient Position Hooklying Treatment Duration (minutes) 15 Patient Tolerance Good PT-OP-S Aquatic Treatment Start: 10/05/19 09:06 Freq: Status: Active Protocol: Document 11/06/19 12:30 LJ (Rec: 11/06/19 15:58 LJ [id number]) Aquatics Treatment Pool Entry/Exit Pool Entry/Exit Method Stairs Assistance Independent Water Walking Backwards Water Level Chest Level Comments forward [place] Water Level Chest Level [place] January Water Level Chest Level Comments arms HABD/ADD [place] Water Level Chest Level Level of Assistance Verbal Cues Comments UE reverse BS sideways with shoulder stab Comments with elbows bent at 90 deg Sideways Water Level Chest Level Level of Assistance Verbal Cues Comments ab/ad arms backward with reverse breastroke UE's Water Level Chest Level Level of Assistance Verbal Cues forward with breastroke UE's Water Level Chest Level Level of Assistance Verbal Cues Upper Extremity Exercises Unilateral pull downs Body Position Standing Water Level Chest Level Equipment Large Noodle Reps/Duration 12x2 bilat Comments cues for core stabilization lat pull downs Body Position Standing Water Level Chest Level Equipment Large Noodle Reps/Duration 15x2 Comments cues for scap stab and posture Upper Extremity Stretches pec stretch Details walk with UE drag Body Position Standing [place] Activities [place] Activities Bicycle,Cross [place],Hip Abduction/Adduction Other Activities pendulum forward backward rolls plank flutter kick Equipment floatation belt, med BBs Manual Techniques Aquatic Manual Traction Deep water hang #4, sm Blue float 6 min PT-OP-T Assessment and Plan Start: 10/05/19 09:06 Freq: Status: Active Protocol: Document 12/07/19 14:15 [facility] (Rec: 12/07/19 15:15 [facility] [id number]) Physical Therapy Assessment Impairments Impairments Activity Tolerance,Balance, Coordination,Gait,Pain,Posture ,Strength Other Impairments possible cognition Goals Five Impairment QuickDash UE disability index score 95% Short Term Goal (STG) Decrease Quickdash UE disability index score to no greater than 60% 07/30/19: good goal progress STG Duration MET Halfway Goal (LTG) Decrease Quickdash UE disability index score to no greater than 30% including able to reach overhead and behind his back for ADL's and usual daily activities without difficulty 07/30/19: good goal progress LTG Duration 08/28/19 Four Impairment poor scapular strength and stabilization right, dec coleen UE strength Short Term Goal (STG) Instruct in HEP for purposes of strengthening and scapular stabilization 07/30/19:Tolerating continued progression of ther ex STG Duration GOAL MET Halfway Goal (LTG) Improve UE strength to at least 4+/5 to allow full functional use of UE's 07/30/19: good progress LTG Duration 08/28/19 Three Impairment LBP 7/10 Short Term Goal (STG) Decrease LBP to no greater than 5/10 with usual activities STG Duration 11/16/19 Halfway Goal (LTG) Decrease LBP to no greater than 3/10 with usual activities LTG Duration 01/05/10 Two Impairment decreased activity tolerance Oswestry 58% Short Term Goal (STG) Decrease Oswestry Score to no greater than 45% STG Duration 11/16/19 Lead Generation Specialist Goal (LTG) Decrease Osweestry Score to no greater than 25% LTG Duration 01/05/20 One Impairment weakness LE's and core Short Term Goal (STG) Patient able to tolerate 45 min land-based exercises for the purpose of strengthening and core stabilization without an increase in pain or c/o excess fatigue STG Duration 11/16/19 Halfway Goal (LTG) Patient to be independent and compliant with HEP LTG Duration 01/05/20 Assessment Summary Assessment Pt had poor tolerance for exercises today. Also appeared to be confused as he repeatedly said he had sessions set up in the pool. HE performed poorly on the treadmill losing his balance multiple times and unable to continue consistant foot placement. HE fatigued with the band exercises after several repetitions. Physical Therapy Plan Frequency and Duration Frequency of Treatment 2x/Week Duration of Treatment 12 wks Plan of Care Start Date 10/05/19 Plan of Care End Date 01/05/20 Therapeutic Interventions Therapeutic Interventions Aquatic Therapy,Home Exercise Program,Manual Therapy, Neuromuscular Re-education, Patient/Caregiver Education, Self-Care/Home Management,Soft Tissue Mobilization,Taping, Therapeutic Activities, Therapeutic Exercises Modalities Cold Pack/Ice Massage,Electric Stimulation,Hot Packs, Ultrasound
--- NOTE | 2019-12-24 09:02 | PT.OTN ---
Current Diagnoses Radiculopathy, cervical region (12/24/19) Low back pain (12/24/19) Physical Therapy Treatment Note PT-OP-A Visit Information Start: 10/05/19 09:06 Freq: Status: Active Protocol: Document 12/24/19 08:16 HH (Rec: 12/24/19 09:02 HH [id number]) Out-Patient Physical Therapy Visit Information Visit Information Visit Type Treatment Note Visit Start Time 08:16 Visit Stop Time 09:00 Total Visit Minutes 44 Visit Number 13 Number of MACHINE TOOL DESIGNER Visits 0 PT-OP-B Current Condition Start: 10/05/19 09:06 Freq: Status: Active Protocol: Document 10/05/19 09:07 SAK (Rec: 10/05/19 09:43 SAK [id number]) Current Condition History of Current Condition Onset Date years Current Complaints LBP History of Current Condition Patient reports he took a break from PT due to having a hard time attending PT consistently. Reports neck has recovered well, but returns to PT with c/o LBP. Reports severe pain especially with standing, walking, prolonged sitting. Only decreases with laying down. Reports also sharp pain into left scapular region. Is anticipating lumbar surgery. Prior Treatments and Tests Spinal fusion, LBP, cervical fusion Future Testing and Treatments Planned Sees Dr. King 10/16/19 to discuss back surgery Treatment Goals Patient/Caregiver Goals Decrease pain, be able to do usual activities without pain. Prior Functional Status Baseline Function- ADL's Independent Baseline Function- Mobility Independent Baseline Function- Gait independent, no pain Baseline Function- Recreation/Hobbies fishing without pain Current Functional Impairments (Reported) Functional Limitations- ADL's painful Functional Limitations- Mobility/Gait decreased distance, painful Functional Limitations- Recreation/ Painful to sit and tie flies, Hobbies fish PT-OP-C Subjective Start: 10/05/19 09:06 Freq: Status: Active Protocol: Document 12/24/19 08:16 HH (Rec: 12/24/19 09:02 HH [id number]) OP-PT Subjective Patient Comments Patient Comments Saniya been doing all my exercises. I only feel stiff in the morning but it gets better once i start moving more. My surgery is going to be on the and they have to adjust my BP medication since my HR is only 41. I havent been going to the pool 2 times a week. PT-OP-G Mobility & Gait Start: 10/05/19 09:06 Freq: Status: Active Protocol: Document 10/05/19 09:07 [facility] (Rec: 10/12/19 14:11 [facility] [id number]) OP Mobility Evaluation Bed Mobility Rolling log roll reviewed Functional Movements Lifting and Carrying not tested today due to high pain level Squats poor body mechanics PT-OP-J Posture/Palpation/Skin Start: 10/05/19 09:06 Freq: Status: Active Protocol: Document 10/05/19 09:07 [facility] (Rec: 10/12/19 14:11 [facility] [id number]) Posture Evaluation Position Sitting Head/C-Spine Posture C-Spine Flattened T-Spine Posture Increased Kyphosis L-Spine Posture Increased Lordosis Shoulder Posture (L) Rounded,(R) Rounded,(L) Forward,(R) Forward,(R) Elevated Scapula Posture (R) Protracted,(R) Elevated Palpation Assessment Location cervical spine Palpation Findings Soft Tissue Tightness, Tenderness Palpation Details decreased muscle bulk left thoracolumbar spine as compared to right. PT-OP-K Range of Motion Start: 10/05/19 09:06 Freq: Status: Active Protocol: Document 10/05/19 09:07 [facility] (Rec: 10/12/19 14:11 [facility] [id number]) Lumbar Spine Range of Motion Lumbar Spine Active Testing Position Standing ROM Limitations Soft Tissue Tightness,Pain Comments moderate decrease all motions with c/o pain Hip Goniometric Range of Motion Hip coleen Hip ROM WFL No Testing Position Supine Flexion w/Knee Flexed 100 Straight Leg Raise 55 Extension 0 Internal Rotation 20 External Rotation 45 Hip ROM Limitations Hip ROM Limitations Soft Tissue Tightness,Muscle Weakness PT-OP-L Special Tests Start: 10/05/19 09:06 Freq: Status: Active Protocol: Document 10/05/19 09:07 [facility] (Rec: 10/12/19 14:11 [facility] [id number]) Special Tests Lumbar Spine Special Tests Straight Leg Raise Test Results negative Prone Press Up Test Results negative Slump Test Results negative PT-OP-M Strength Start: 10/05/19 09:06 Freq: Status: Active Protocol: Document 10/05/19 09:07 SAK (Rec: 10/12/19 14:11 [facility] [id number]) Trunk Strength Trunk Manual Muscle Testing Flexion 4- Good- Extension 4- Good- Hip Strength Hip Manual Muscle Testing Right Flexion (L2) 4- Good- Extension (S1) 3+ Fair+ Abduction 4 Good External Rotation 3+ Fair+ Internal Rotation 4- Good- Left Flexion (L2) 4- Good- Extension (S1) 3+ Fair+ Abduction 4- Good- External Rotation 3+ Fair+ Internal Rotation 4- Good- Knee Strength Knee Manual Muscle Testing coleen Flexion (S2) 5 Normal Extension (L3) 4 Good Ankle/Foot Strength Ankle and Foot Manual Muscle Testing Right Dorsiflexion (L4) 4- Good- Plantarflexion (S1) 4 Good Left Dorsiflexion (L4) 4 Good Plantarflexion (S1) 4 Good PT-OP-Q Treatments Start: 10/05/19 09:06 Freq: Status: Active Protocol: Document 12/24/19 08:16 HH (Rec: 12/24/19 09:02 HH [id number]) Cardio Equipment Recumbent Stepper (Sci-Fit) Duration (Minutes) 10 Resistance 2.0 Seat Position 15 Treadmill Duration (Minutes) 5 Speed 1.8 Gym Equipment Shuttle Recovery Unilateral Squats Resistance R= 62, L =50 Shuttle Recovery Platform Stable Reps/Time 8 x2 Therapeutic Exercises Supine Exercises bridge Reps/Minutes 8 x2 SLR Supine Exercise Name R= full SLR, L= with knee bend Reps/Minutes 6 x 2 Comments cues on engagement of abdominal LTR Reps/Minutes 10x Comments gentle with manual guidance Standing Exercises HS stretch Reps/Minutes 4 mins PT-OP-R Modalities Start: 10/05/19 09:06 Freq: Status: Active Protocol: Document 11/23/19 08:17 SAK (Rec: 11/23/19 08:45 SAK [id number]) Hot Pack/Cold Pack Treatment lumbar spine Patient Position Hooklying Treatment Duration (minutes) 15 Patient Tolerance Good PT-OP-S Aquatic Treatment Start: 10/05/19 09:06 Freq: Status: Active Protocol: Document 11/06/19 12:30 LJ (Rec: 11/06/19 15:58 LJ [id number]) Aquatics Treatment Pool Entry/Exit Pool Entry/Exit Method Stairs Assistance Independent Water Walking Backwards Water Level Chest Level Comments forward BS [place] Water Level Chest Level [place] March Water Level Chest Level Comments arms HABD/ADD march Water Level Chest Level Level of Assistance Verbal Cues Comments UE reverse BS sideways with shoulder stab Comments with elbows bent at 90 deg Sideways Water Level Chest Level Level of Assistance Verbal Cues Comments ab/ad arms backward with reverse breastroke UE's Water Level Chest Level Level of Assistance Verbal Cues forward with breastroke UE's Water Level Chest Level Level of Assistance Verbal Cues Upper Extremity Exercises Unilateral pull downs Body Position Standing Water Level Chest Level Equipment Large Noodle Reps/Duration 12x2 bilat Comments cues for core stabilization lat pull downs Body Position Standing Water Level Chest Level Equipment Large Noodle Reps/Duration 15x2 Comments cues for scap stab and posture Upper Extremity Stretches pec stretch Details walk with UE drag Body Position Standing [place] Activities [place] Activities Bicycle,Cross Country,Hip Abduction/Adduction Other Activities pendulum forward backward rolls plank flutter kick Equipment floatation belt, med BBs Manual Techniques Aquatic Manual Traction Deep water hang #4, sm Blue float 6 min PT-OP-T Assessment and Plan Start: 10/05/19 09:06 Freq: Status: Active Protocol: Document 12/24/19 08:16 (Rec: 12/24/19 09:02 [id number]) Physical Therapy Assessment Goals Five Impairment QuickDash UE disability index score 95% Short Term Goal (STG) Decrease Quickdash UE disability index score to no greater than 60% 07/30/19: good goal progress STG Duration MET Media Intern Goal (LTG) Decrease Quickdash UE disability index score to no greater than 30% including able to reach overhead and behind his back for ADL's and usual daily activities without difficulty 07/30/19: good goal progress LTG Duration 08/28/19 Four Impairment poor scapular strength and stabilization right, dec coleen UE strength Short Term Goal (STG) Instruct in HEP for purposes of strengthening and scapular stabilization 07/30/19:Tolerating continued progression of ther ex STG Duration GOAL MET Media Intern Goal (LTG) Improve UE strength to at least 4+/5 to allow full functional use of UE's 07/30/19: good progress LTG Duration 08/28/19 Three Impairment LBP 7/10 Short Term Goal (STG) Decrease LBP to no greater than 5/10 with usual activities STG Duration 11/16/19 Media Intern Goal (LTG) Decrease LBP to no greater than 3/10 with usual activities LTG Duration 01/05/10 Two Impairment decreased activity tolerance Oswestry 58% Short Term Goal (STG) Decrease Oswestry Score to no greater than 45% STG Duration 11/16/19 Assisted Goal (LTG) Decrease Osweestry Score to no greater than 25% LTG Duration 01/05/20 One Impairment weakness LE's and core Short Term Goal (STG) Patient able to tolerate 45 min land-based exercises for the purpose of strengthening and core stabilization without an increase in pain or c/o excess fatigue STG Duration 11/16/19 Media Intern Goal (LTG) Patient to be independent and compliant with HEP LTG Duration 01/05/20 Assessment Summary Assessment Pt requested to measure his HR today. Resting =51 and after TM = 65, after leg press = 65. Pt demetria tx well today and feel improved overall mobility afterwards. Pt's last appt is 12/28 before his 3rd back sx. Physical Therapy Plan Next Visit Focus/Plan Next Note Type Treatment Note Next Visit Plan Progress strengthening and core stabilization as possible . Patient to restart aquatic exercise as previously instructed.
--- NOTE | 2019-12-28 16:25 | PT.OTN ---
Current Diagnoses Radiculopathy, cervical region (12/28/19) Low back pain (12/28/19) Physical Therapy Treatment Note PT-OP-A Visit Information Start: 10/05/19 09:06 Freq: Status: Active Protocol: Document 12/28/19 15:15 SAK (Rec: 12/28/19 16:12 SAK [id number]) Out-Patient Physical Therapy Visit Information Visit Information Visit Type Treatment Note Visit Start Time 15:16 Visit Stop Time 16:04 Total Visit Minutes 48 Visit Number 14 Number of BUSINESS APPLICATIONS DEVELOPER Visits 0 Precautions Precautions prior lumbar and cervical fusions PT-OP-B Current Condition Start: 10/05/19 09:06 Freq: Status: Active Protocol: Document 10/05/19 09:07 SAK (Rec: 10/05/19 09:43 SAK [id number]) Current Condition History of Current Condition Onset Date years Current Complaints LBP History of Current Condition Patient reports he took a break from PT due to having a hard time attending PT consistently. Reports neck has recovered well, but returns to PT with c/o LBP. Reports severe pain especially with standing, walking, prolonged sitting. Only decreases with laying down. Reports also sharp pain into left scapular region. Is anticipating lumbar surgery. Prior Treatments and Tests Spinal fusion, LBP, cervical fusion Future Testing and Treatments Planned Sees Dr. King 10/16/19 to discuss back surgery Treatment Goals Patient/Caregiver Goals Decrease pain, be able to do usual activities without pain. Prior Functional Status Baseline Function- ADL's Independent Baseline Function- Mobility Independent Baseline Function- Gait independent, no pain Baseline Function- Recreation/Hobbies fishing without pain Current Functional Impairments (Reported) Functional Limitations- ADL's painful Functional Limitations- Mobility/Gait decreased distance, painful Functional Limitations- Recreation/ Painful to sit and tie flies, Hobbies fish PT-OP-C Subjective Start: 10/05/19 09:06 Freq: Status: Active Protocol: Document 12/28/19 15:15 SAK (Rec: 12/28/19 16:12 SAK [id number]) OP-PT Subjective Patient Comments Patient Comments Just diagnosed with RA, started on medication, halved BP medication, HR has still been. Hasn't been back to the pool because c/o not clean enough, has not discussed with pool staff. Back surgery scheduled 01/06/20. Agreeable to discharge from PT this date , anticipating PT after his back surgery. PT-OP-G Mobility & Gait Start: 10/05/19 09:06 Freq: Status: Active Protocol: Document 10/05/19 09:07 [facility] (Rec: 10/12/19 14:11 [facility] [id number]) OP Mobility Evaluation Bed Mobility Rolling log roll reviewed Functional Movements Lifting and Carrying not tested today due to high pain level Squats poor body mechanics PT-OP-J Posture/Palpation/Skin Start: 10/05/19 09:06 Freq: Status: Active Protocol: Document 10/05/19 09:07 [facility] (Rec: 10/12/19 14:11 [facility] [id number]) Posture Evaluation Position Sitting Head/C-Spine Posture C-Spine Flattened T-Spine Posture Increased Kyphosis L-Spine Posture Increased Lordosis Shoulder Posture (L) Rounded,(R) Rounded,(L) Forward,(R) Forward,(R) Elevated Scapula Posture (R) Protracted,(R) Elevated Palpation Assessment Location cervical spine Palpation Findings Soft Tissue Tightness, Tenderness Palpation Details decreased muscle bulk left thoracolumbar spine as compared to right. PT-OP-K Range of Motion Start: 10/05/19 09:06 Freq: Status: Active Protocol: Document 10/05/19 09:07 [facility] (Rec: 10/12/19 14:11 [facility] [id number]) Lumbar Spine Range of Motion Lumbar Spine Active Testing Position Standing ROM Limitations Soft Tissue Tightness,Pain Comments moderate decrease all motions with c/o pain Hip Goniometric Range of Motion Hip coleen Hip ROM WFL No Testing Position Supine Flexion w/Knee Flexed 100 Straight Leg Raise 55 Extension 0 Internal Rotation 20 External Rotation 45 Hip ROM Limitations Hip ROM Limitations Soft Tissue Tightness,Muscle Weakness PT-OP-L Special Tests Start: 10/05/19 09:06 Freq: Status: Active Protocol: Document 10/05/19 09:07 SAK (Rec: 10/12/19 14:11 [facility] [id number]) Special Tests Lumbar Spine Special Tests Straight Leg Raise Test Results negative Prone Press Up Test Results negative Slump Test Results negative PT-OP-M Strength Start: 10/05/19 09:06 Freq: Status: Active Protocol: Document 10/05/19 09:07 SAK (Rec: 10/12/19 14:11 [facility] [id number]) Trunk Strength Trunk Manual Muscle Testing Flexion 4- Good- Extension 4- Good- Hip Strength Hip Manual Muscle Testing Right Flexion (L2) 4- Good- Extension (S1) 3+ Fair+ Abduction 4 Good External Rotation 3+ Fair+ Internal Rotation 4- Good- Left Flexion (L2) 4- Good- Extension (S1) 3+ Fair+ Abduction 4- Good- External Rotation 3+ Fair+ Internal Rotation 4- Good- Knee Strength Knee Manual Muscle Testing coleen Flexion (S2) 5 Normal Extension (L3) 4 Good Ankle/Foot Strength Ankle and Foot Manual Muscle Testing Right Dorsiflexion (L4) 4- Good- Plantarflexion (S1) 4 Good Left Dorsiflexion (L4) 4 Good Plantarflexion (S1) 4 Good PT-OP-Q Treatments Start: 10/05/19 09:06 Freq: Status: Active Protocol: Document 12/28/19 15:15 SAK (Rec: 12/28/19 16:12 SAK [id number]) Cardio Equipment Recumbent Stepper (Sci-Fit) Duration (Minutes) 10 Resistance 2.0 Seat Position 15 Treadmill Duration (Minutes) 5 Speed 1.8 Gym Equipment Shuttle Recovery Unilateral Squats Resistance R= 62, L =50 Shuttle Recovery Platform Stable Reps/Time 8 x2 Shuttle Balance chains red Details standing bal feet parallel, stride, side/side Comments emphasis on postural alignment , core stab Therapeutic Exercises Supine Exercises SKTC Reps/Minutes 2x30 Comments manual HS stretch Reps/Minutes 2 x 30 Comments manual Manual Therapy Treatment Other Other Manual Treatments MMT coleen LE's PT-OP-R Modalities Start: 10/05/19 09:06 Freq: Status: Active Protocol: Document 11/23/19 08:17 SAK (Rec: 11/23/19 08:45 SAK [id number]) Hot Pack/Cold Pack Treatment lumbar spine Patient Position Hooklying Treatment Duration (minutes) 15 Patient Tolerance Good PT-OP-S Aquatic Treatment Start: 10/05/19 09:06 Freq: Status: Active Protocol: Document 11/06/19 12:30 [facility] (Rec: 11/06/19 15:58 LJ [id number]) Aquatics Treatment Pool Entry/Exit Pool Entry/Exit Method Stairs Assistance Independent Water Walking Backwards Water Level Chest Level Comments forward BS [place] Water Level Chest Level [place] January Water Level Chest Level Comments arms HABD/ADD march Water Level Chest Level Level of Assistance Verbal Cues Comments UE reverse BS sideways with shoulder stab Comments with elbows bent at 90 deg Sideways Water Level Chest Level Level of Assistance Verbal Cues Comments ab/ad arms backward with reverse breastroke UE's Water Level Chest Level Level of Assistance Verbal Cues forward with breastroke UE's Water Level Chest Level Level of Assistance Verbal Cues Upper Extremity Exercises Unilateral pull downs Body Position Standing Water Level Chest Level Equipment Large Noodle Reps/Duration 12x2 bilat Comments cues for core stabilization lat pull downs Body Position Standing Water Level Chest Level Equipment Large Noodle Reps/Duration 15x2 Comments cues for scap stab and posture Upper Extremity Stretches pec stretch Details walk with UE drag Body Position Standing [place] Activities [place] Activities Bicycle,Cross [place],Hip Abduction/Adduction Other Activities pendulum forward backward rolls plank flutter kick Equipment floatation belt, med BBs Manual Techniques Aquatic Manual Traction Deep water hang #4, sm Blue float 6 min PT-OP-T Assessment and Plan Start: 10/05/19 09:06 Freq: Status: Active Protocol: Document 12/28/19 15:15 [facility] (Rec: 12/28/19 16:12 [facility] [id number]) Physical Therapy Assessment Impairments Impairments Activity Tolerance,Balance, Coordination,Gait,Pain,Posture ,Strength Other Impairments possible cognition Goals Five Impairment QuickDash UE disability index score 95% Short Term Goal (STG) Decrease Quickdash UE disability index score to no greater than 60% 07/30/19: good goal progress STG Duration MET Skilled Nursing Goal (LTG) Decrease Quickdash UE disability index score to no greater than 30% including able to reach overhead and behind his back for ADL's and usual daily activities without difficulty 07/30/19: good goal progress LTG Duration 08/28/19 Four Impairment poor scapular strength and stabilization right, dec coleen UE strength Short Term Goal (STG) Instruct in HEP for purposes of strengthening and scapular stabilization 07/30/19:Tolerating continued progression of ther ex STG Duration GOAL MET Skilled Nursing Goal (LTG) Improve UE strength to at least 4+/5 to allow full functional use of UE's 07/30/19: good progress LTG Duration 08/28/19 Three Impairment LBP 7/10 Short Term Goal (STG) Decrease LBP to no greater than 5/10 with usual activities STG Duration 11/16/19 District Administrator Goal (LTG) Decrease LBP to no greater than 3/10 with usual activities LTG Duration 01/05/10 Two Impairment decreased activity tolerance Oswestry 58% Short Term Goal (STG) Decrease Oswestry Score to no greater than 45% STG Duration 11/16/19 Skilled Nursing Goal (LTG) Decrease Osweestry Score to no greater than 25% LTG Duration 01/05/20 One Impairment weakness LE's and core Short Term Goal (STG) Patient able to tolerate 45 min land-based exercises for the purpose of strengthening and core stabilization without an increase in pain or c/o excess fatigue STG Duration 11/16/19 District Administrator Goal (LTG) Patient to be independent and compliant with HEP LTG Duration 01/05/20 Assessment Summary Assessment Patient tolerated treatment well, pain variable and intermittant, increases with sittting with coleen LBP with radiation into buttocks. Compliant with HEP. Will continue until his surgery. Ready for discharge from PT at this time. Physical Therapy Plan Frequency and Duration Frequency of Treatment 2x/Week Duration of Treatment 12 wks Plan of Care Start Date 10/05/19 Plan of Care End Date 01/05/20 Therapeutic Interventions Therapeutic Interventions Aquatic Therapy,Home Exercise Program,Manual Therapy, Neuromuscular Re-education, Patient/Caregiver Education, Self-Care/Home Management,Soft Tissue Mobilization,Taping, Therapeutic Activities, Therapeutic Exercises Modalities Cold Pack/Ice Massage,Electric Stimulation,Hot Packs, Ultrasound Discharge Physical Therapy Discharge Reasons Goals Met Discharge Comments Indep with HEP Having back surgery
--- NOTE | 2020-02-15 10:18 | PT.OPPOC ---
Physical, Occupational & Speech Therapy At [facility] Current Diagnoses Radiculopathy, cervical region (12/28/19) Low back pain (12/28/19) Visit Care Team Role Provider Type Johanny Cuadra DO Attending Provider Physician Primary Care Provider Specialty: Family Practice Address: [address] [place] [address], [address], [facility] Email: [email or web address] Plan of Care Dates Plan of Care Start Date 11/17/19 Plan of Care End Date 01/05/20 Electronically Signed by: Simin Mahan, PT 02/15/20 1018 Please Sign and Return: I have reviewed this Plan of Care and certify that the skilled therapy services above are required to meet the patient?s needs. Physician Signature Date Printed Name and Credentials Clinical Instructor Signature Printed Name and Credentials
== END 2019-12-29 09:36 | disposition home or self-care (01) ==
LOC: PHYS 15:15
PROVIDERS: PCP Family Medicine; Visit Provider Family Medicine
DX: M54.5 Low back pain (principal); M54.12 Radiculopathy, cervical region
CPT/HCPCS: 97010; 97110; 97112; 97113; 97140; 97162; 97535

== ENCOUNTER 2020-01-06 06:15 | Inpatient (IN) | payer MEDICARE, OTHER, SELFPAY ==
[2018-04-29 17:17] VITALS: BMI 25.2
[2019-12-23 08:35] VITALS: BMI 24.9
[2020-01-06] VITALS (29 sets, daily range): BP systolic 113–178; BP diastolic 47–86; PULSE 59–98; RESP 5–95; TEMP 36.2–37.3; O2SAT 2–100; BMI 23.6
--- NOTE | 2020-01-06 | DI.RAD.S_ITS ---
PROCEDURE: XR LUMBAR SPINE 2-3V INDICATIONS: L2-3 , L5-S1 TLIF TECHNIQUE: 4 views of the lumbar spine were acquired. COMPARISON: [facility], CT, CT LUMBAR SPINE WO CON, 07/09/2019, 14:31. [facility], CR, L-SPINE 2-3 VIEWS, 03/15/2017, 8:46. [facility], CR, L-SPINE 2-3 VIEWS, 05/16/2016, 10:11. FINDINGS: Bones: There has been revision spine fusion along the lumbosacral spine with prior fusion extending from L3-L5 and current fusion extending from L2-S1. Interbody cage disc prosthesis devices are seen at L5 S1 and L2-L3. Alignment is normal. Soft tissues: Overlying bowel gas pattern is normal. No suspicious soft tissue calcifications. IMPRESSION: Normal alignment established after revision spine fusion comprise the transverse pedicle screws and vertical fixation rods crossing from L2-S1 with interbody disc prosthesis devices as discussed (cage type L2-L3 and L5-S1, and interbody prosthesis (non-cage type) at L4-L5). Dictated by: Uzair Parra M.D. on 01/06/2020 at 14:32 Approved by: Uzair Parra M.D. on 01/06/2020 at 14:36
[2020-01-06] MEDS: LACTATED RINGERS 1,000 ML 42 ML IV ×3 (06:47→11:06)
--- NOTE | 2020-01-06 07:44 | PM.PREOP ---
Pre-operative Note Interval Note History & Physical reviewed/Exam performed by Physician: Yes Changes to H&P: No
[2020-01-06] MEDS: CEFAZOLIN 2 GM/100 ML FROZ.PIGGY IV ×2 (08:02→17:45)
[2020-01-06] MEDS: ACETAMINOPHEN IV 1,000 MG/100 ML VIAL 400 MG IV (08:05)
--- NOTE | 2020-01-06 08:31 | SUR.OPER ---
Prone on spine table, head in foam head support, padded chest and pelvic supports, gel pad at knees, lower legs supported by pillows; nipples, genitalia and toes free of pressure, arms secured on foam padded arm boards at <90 degrees abduction. Tape over blanket at thigh secured to table.
[2020-01-06] MEDS: BUPIVACAINE 0.25% W/ EPI 30 ML VIAL INJ (08:40)
[2020-01-06] MEDS: BUPIVACAINE LIPOSOME 266 MG/20 ML VIAL INJ (08:41)
--- NOTE | 2020-01-06 13:20 | P.OP_ITS ---
Operative Date/Time/Diagnoses Date of procedure: 01/06/20 Time of procedure: 07:51 Pre-op diagnosis: 1. L2-3, L3-4, L4-5, L5-S1 spinal stenosis 2. Hx of L3-4, L4-5 lumbar fusion 3. Lumbar spondylosis with radiculopathy Post-op diagnosis: same Procedure & Clinicians Procedure: 1. L2-3, L5-S1 posterolateral and posterior interbody fusion 2. L2-3, L5-S1 posterior interbody cage placement 3. L3-4. L4-5 posterior segmental instrumentation removal 4. L3-4, L4-5 revision laminectomy with exploration of fusion 5. L2-3, L3-4, L4-5, L5-S1 posterior segmental instrumentation with pedicle screw placement 6. L4-5 posterolatearl fusion 7. [place] of bone marrow from iliac crest through a separate incision 8. Utilization of microsurgical technique and operating microscope Same procedure as scheduled: Yes Indications: Patient has been having chronic back pain and worsening lumbar radiculopathy. Patient had a prior fusion with [facility] which progressively worsening back pain and leg pain and weakness. Patient failed multiple conservative management with worsening pain weakness and numbness in her lower extremity. Patient has been having difficulty performing activity of daily living. After discussing risks benefits of treatment options, patient elected proceed with surgery. Surgeon: Lashonda Cain [employer] Manager: Savita Severino Click Yes if Unassisted: No Anesthesia Type: General Operative Notes Closure Type: primary Specimen(s): none sent Prosthetic devices, grafts, tissues, transplants, or devices: Globus revolve screws, Rise cages Applied: catheter Estimated Blood Loss (mL): 500 Blood products transfused: none Procedure in detail: Patient was seen in the preoperative area. Risks and benefits of the surgery was discussed with the patient. Informed consent was obtained from the patient and placed in the chart. Surgical site was marked. Patient was taken to the operative room. General anesthesia was administered. Prophylactic antibiotic was given to the patient less than 30 min before the incision was made. Patient was placed into a prone position on the Solitario table. Patient's back was then prepped and draped in the sterile fashion. Time- out was performed at this time. Using patient's previous scar incision was made over the L2-3, L3-4, L4-5, L5-S1 interval on the right side. Fascia was incised in line with skin incision. Patient's previously placed hardware over the L3-4 L4-5 level was identified by dissecting down to the level the hardware using a Bovie and a Hwang. The locking caps which was removed using globus screwdriver. The locking mellissa was then brandie tino from the t[place]ips of the pedicle screws using a José Miguel. The pedicle screws were then removed using the screwdriver. The screws were found to have good purchase. The Globus and MARS retractors was then placed into the wound and docked onto the L2 and L5 lamina using C-arm guidance. Using microsurgical technique and operating microscope a laminectomy facetectomy was performed by removing the L2 and L5 lamina and the L2-3 and L5-S1 facet. The disc space at L2-3 L5-S1 level was identified next. And a total diskectomy was performed at L2-3 L5-S1 level. The endplates were decorticated using a rasp and shaver. The total diskectomy and decortication was performed at L2-3 L5-S1 level in order to to accomplish a L2-3 L5-S1 interbody fusion. The local bone from the laminectomy and facetect raymond was saved for local bone grafting. After the total diskectomy and decortication was completed, Bio4 bone graft material was combined with local bone that was harvested earlier. At this time, a separate skin is incision was made over the iliac crest. A Jamshidi needle was inserted into the iliac crest through a separate skin incision. 5 cc of bone marrow aspiration was obtained through the separate skin incision using a Jamshidi needle from the iliac crest. The bone marrow aspiration was combined with local bone and the via cell bone grafting material. The bone grafting material was placed into the [] interbody space along with a expandable cage. The cage was expanded to its maximum height using the torque limiting screwdriver. At this time a mirror image incision was made on the left side. The fascia was incised in line with the skin incision. Patient's previously placed hardware on the left side was then removed in the same fashion as it was on the right side. The hardware was also found to have good purchase. The fusion mass on the left side was exposed by performing a left-sided hemilaminectomy at L3-4, L4-5 level. The hemilaminectomy was performed using the Kerrison rongeur to undercut the lamina as well removing additional epidural scar tissue for purpose of decompressing the epidural space. The fusion mass was explored. The L3-4 level was found to have solid fusion with no motion and the L4-5 level was found have visible motion indicating pseudoarthrosis. Globus MARS retractor was inserted and docked onto the L2-3 L4-5 L5-S1 posterolateral gutter. Using the power drill, posterior-lateral decortication was performed at L2-3 L4-5 L5-S1 level until bleeding cortical bone was identified. The remaining bone grafting material was placed into the L2-3 L4-5 L5-S1 posterior lateral gutter he order to accomplish posterolateral fusion at the L2-3 L4-5 L5-S1 level. Using the double C-arm technique, pedicle screws were placed into the L2-L3-L4-L5 and S1 pedicles bilaterally. This was done by placing the Jamshidi needle into the pedicles, then placing the guidewires over the Jamshidi needle, and finally placing the cannulated screws over the guidewires bilaterally. After the pedicle screws were placed, 2 titanium rods was locked into the heads of the pedicle screws using locking caps and torque limiting screwdriver. After all the hardware was placed, and confirmed with AP and lateral C-arm imaging, the wound was then irrigated with sterile normal saline and packed with Ray-Frantz gauze for 3 min to accomplish hemostasis. After the gauze was removed the deep fascia was closed with #1 Vicryl suture. The subcutaneous layer was closed with 2-0 Vicryl. The skin was closed with skin giovanni. Patient tolerated the procedure well. There were no complications. Complications: none Post-operative Condition: stable Disposition: PACU Plan for aftercare: Admit to inpatient hospital
--- NOTE | 2020-01-06 14:08 | SUR.PHASEI ---
verbal report to Dr. marsh at bedside
--- NOTE | 2020-01-06 14:18 | SUR.PHASEI ---
patient open eyes to loud verbal stimuli, no response to instructions to open mouth. Dr. Dorsey at bedside will continue LMA until patient more awake and responding to verbal instructions. Tolerating LMA with gag or caugh at this time.
[2020-01-06] MEDS: HYDROMORPHONE 2 MG INJ IV (14:39)
[2020-01-06] MEDS: SODIUM CHLORIDE 0.9% 1,000 ML 100 ML IV (17:41)
[2020-01-06] MEDS: HYDROMORPHONE 0.5 MG INJ IV (18:21)
--- NOTE | 2020-01-06 20:22 | PC.NURSE ---
Patient's skin is mostly dry except for bleeding out of wound on lower back. Confined to bed still since it's post op day 0 and he is heavily medicated. Able to move slightly but in severe pain. Is presenting with signs of sleep apnea but oxygen is staying mostly above 94. Was given dinner but expressed no interest in food.
--- NOTE | 2020-01-06 20:35 | PC.NURSE ---
Addendum entered by Justyna Marks R.N. 01/06/20 23:47: Dressing inspected and reinforced due to sanguinous drainage and peeling off from movement. No active bleeding noted. Original Note: Sejal shift note: Received patient from PACU S/P posterior spinal fusion, awake, and cooperative. Received on O2 at 2L via NC. SCD in place. Drainage noted to lower back, marked. Oriented to room, environment, and plan of care. Discussed importance of mobility restrictions. High fall risk precautions, call light within reach.
[2020-01-06] MEDS: OXYCODONE IR 5 MG TABLET 10 MG PO (22:44)
[2020-01-06] MEDS: SENNOSIDES 8.6 MG TABLET 17.2 MG PO (22:47)
[2020-01-06] MEDS: DOCUSATE 100 MG CAPSULE PO (22:49)
[2020-01-06] MEDS: DULOXETINE 30 MG CAPSULE PO (22:50)
[2020-01-06] MEDS: GABAPENTIN 600 MG TABLET 1800 MG PO (22:51)
[2020-01-06] MEDS: METOPROLOL ER 50 MG TABLET PO (22:55)
[2020-01-06] MEDS: glipiZIDE 5 MG TABLET 2.5 MG PO (23:01)
[2020-01-07] VITALS (16 sets, daily range): BP systolic 73–134; BP diastolic 40–72; PULSE 67–86; RESP 14–20; TEMP 36.8–38.7; O2SAT 94–100
[2020-01-07] MEDS: CEFAZOLIN 2 GM/100 ML FROZ.PIGGY IV
[2020-01-07] MEDS: hydrOXYzine pamoate 25 MG CAPSULE PO ×4 (00:01→19:03)
[2020-01-07] MEDS: HYDROMORPHONE 0.5 MG INJ IV ×3 (00:01→22:08)
[2020-01-07] MEDS: ACETAMINOPHEN 325 MG TABLET 650 MG PO ×2 (01:17→06:31)
[2020-01-07] MEDS: OXYCODONE IR 5 MG TABLET 10 MG PO ×4 (03:32→12:07)
[2020-01-07] MEDS: SODIUM CHLORIDE 0.9% 1,000 ML 100 ML IV (05:15)
[2020-01-07] MEDS: ISOSORBIDE MONONITRATE ER 30 MG TABLET PO (06:31)
[2020-01-07 07:06] LABS: Hemoglobin 7.7 g/dL (13.5-17.5)
[2020-01-07 07:07] LABS: Hematocrit 22.1 % (41-53)
[2020-01-07] MEDS: METOPROLOL ER 50 MG TABLET PO (09:21)
[2020-01-07] MEDS: GABAPENTIN 600 MG TABLET 1800 MG PO ×2 (09:21→22:04)
[2020-01-07] MEDS: DOCUSATE 100 MG CAPSULE PO ×2 (09:22→22:04)
[2020-01-07] MEDS: ATORVASTATIN 20 MG TABLET PO (09:22)
[2020-01-07] MEDS: AMLODIPINE 5 MG TABLET PO (09:22)
[2020-01-07] MEDS: glipiZIDE 5 MG TABLET 2.5 MG PO ×2 (09:22→22:07)
[2020-01-07] MEDS: DULOXETINE 30 MG CAPSULE PO ×2 (09:23→22:07)
[2020-01-07] MEDS: OXYBUTYNIN 5 MG ER TAB PO (09:46)
--- NOTE | 2020-01-07 11:20 | PC.NURSE ---
Day shift: Per ILEANA Catherine Pt to get the rest of IV fluids (750ml) at 500ml/hr for low BP. Pt tolerating well. Pt asleep in bed. No s/s of pain or discomfort. Bed alarm is on and call light in reach.
--- NOTE | 2020-01-07 11:25 | PT.IIE ---
Current Diagnoses Other spondylosis with radiculopathy, lumbosacral region (01/06/20) Spinal stenosis, lumbar region without neurogenic claudication (01/06/20) Arthrodesis status (01/06/20) Surgery Performed Operation Date: 01/06/20 07:45 Actual Procedures p L2-3, L5-S1 TLIf, L3-5 HWR, L2-S1 PSF instrumentation - Lashonda Cain MD Surgical History (Last Updated 12/23/19 @ 09:54 by Myra Sow RN) History of back surgery (Resolved ~2012) History of surgery (Acute) History of surgical removal of skin lesion (Acute) Hx of cholecystectomy (Acute) S/P cervical spinal fusion (Acute) Status post hernia repair Status post knee surgery Medical History (Last Updated 12/28/19 @ 09:53 by Cesar Bar DO) Anxiety (Chronic Unknown) Aortic stenosis (Chronic) Ascending aorta dilatation (Acute) Bilateral carotid artery disease (Acute ~09/2018) Bilateral carpal tunnel syndrome (Acute) BPH (benign prostatic hyperplasia) (Chronic Unknown) Chronic back pain (Acute) Chronic kidney disease (Acute) Chronic pain syndrome (Chronic Unknown) Chronic renal insufficiency (Chronic Unknown) Coronary artery disease (Suspected Unknown) Depression (Chronic Unknown) Diabetes (Chronic Unknown) GERD (gastroesophageal reflux disease) (Chronic Unknown) History of ETOH abuse (Resolved Unknown) Hyperlipemia (Chronic Unknown) Hypertension (Chronic Unknown) Low back pain (Chronic Unknown) Pancreatitis (Acute) Peripheral neuropathy (Chronic Unknown) Rheumatoid arthritis (Chronic Unknown) Rheumatoid arthritis (Acute) Physical Therapy Inpatient Evaluation/Re-Eval M1 PT/OT-IP Prior Functional Status Start: 01/07/20 08:29 Freq: NEEDED Status: Active Protocol: Document 01/07/20 10:55 AW (Rec: 01/07/20 11:25 AW [id number]) Medical Review Prior Functional Status Medical History Reviewed Yes Diet/Fluid Consistency Regular Communication WFL. Able to make needs known Mobility and Gait Pt occasionally uses a single trekking pole to assist with balance. He is otherwise independent with mobility but reports a 100 yard limitation in ambulation distance due to pain. Activities of Daily Living and IADL's Independent Prior Functional Level (Other details) Pt reports no falls in the past year. Social History Household Members none Living Arrangements House Number of Floors (Floors) One Floor Number of Stairs To Enter/Railing? 2 DUYEN without railing but pt is able to contact the house siding for support. Home Environment High Toilet,Tub/Shower Home Equipment Front Wheel Walker,Straight Cane,Shower Seat without Backrest Additional Social History Comment Pt lives alone and tends to sleep on a couch. He has a dog and neighbors who check on him regularly but he has no daily assistance. M2 PT-IP Current Condition Start: 01/07/20 08:29 Freq: NEEDED Status: Active Protocol: Document 01/07/20 10:55 AW (Rec: 01/07/20 11:25 AW [id number]) Physical Therapy Current Condition Current Condition Evaluation Date 01/07/20 Treatment Diagnosis L2-L5 TLIF, impaired mobility Onset Date 01/06/20 Precautions Lumbar Precautions Log Roll,No Twisting,Limit Bending,Lifting Restriction of 10 lbs,Gait Belt above Incisional Area Weight Bearing Status Weight Bearing Status Full Weight Bearing M3 PT-IP Subjective Start: 01/07/20 08:29 Freq: NEEDED Status: Active Protocol: Document 01/07/20 10:55 AW (Rec: 01/07/20 11:25 AW [id number]) Subjective Physical Therapy Visit Type Type Initial Evaluation Visit Start Time 09:51 Visit Stop Time 10:22 Total Visit Minutes 31 Number of VISUAL COMMUNICATIONS INSTRUCTOR Visits 0 Physical Therapy Visit Comments Patient Comments Pt willing to mobilize with PT Patient Goals Pt hopes to return to active lifestyle, fishing. Therapy Pain Assessment Pain When Pain Assessed During Mobility Location back Intensity 4 Scale Used Numeric (1 - 10) Pain Management Techniques Distraction,Re-positioning, Timing of Activity with Medications M4 PT-IP Mobility and Gait Start: 01/07/20 08:29 Freq: NEEDED Status: Active Protocol: Document 01/07/20 10:55 AW (Rec: 01/07/20 11:25 AW [id number]) PT-Bed Mobility Assessment Rolling Type of Rolling Log Rolling Level of Assist Standby Assistance Supine to Sit Supine to Sit Standby Assistance,1 Person Assistance Scooting Scooting to Edge of Bed Standby Assistance PT-Transfer Assessment Sit to and From Stand Sit to and from Stand Standby Assistance Equipment Transfer Assistive Device Gait Belt,Front Wheeled Walker Orthotic/Prosthetic Devices or Brace: No Transfers Transfer Destination Chair Transfer Technique pt ambulated with FWW Transfer Ability Level of Assist Standby Assistance Comments Mobility Comments Pt sitting up in bed upon PT arrival. He completed log roll to his right side from a flattened bed and supine to sit SBA with good attention to maintaining neutral posture. He completed sit to stand with FWW SBA and ambulated in the carvajal before returning to the room where he transferred to the chair SBA. Pt dressing had copious drainage. RN inspected the site and is aware. Pt was positioned in the chair with call light and needs within reach, CAN FILLING AND CLOSING MACHINE TENDER attending. Discussed need for chair alarm with CAN FILLING AND CLOSING MACHINE TENDER but none were available. Door was left open. Gait Assessment Gait Gait Assistance Required: Contact Guard Assist Distance (Feet) 75 Able to Maintain Weight Bearing Status Yes During Gait Assistive Devices Assistive Device Gait Belt,Front Wheeled Walker Orthotic/Prosthetic Devices or Brace: No Gait Deviations General Gait Pattern Antalgic,Decreased Stride Length,Decreased Feet Clearance,Flexed Trunk,Step-to Gait Factors Limiting Gait Function Factors Limiting Gait Function Decreased Sensation,Decreased Strength,Difficulty Following Directions,Limited Range of Motion,Pain,Poor Safety Awareness Comments Gait Comments After donning pt's own shoes with orthotics, pt ambulated in the halls with FWW CGA, requiring cues to avoid twisting. He was unable to recall all of his back precautions and required frequent reorientation to same . Pt moved slowly but deliberately. Stair Climbing Assessment Comments Stair Climbing Comments Not assessed. PT-Balance Assessment Sitting Balance and Reactions Static Sitting Balance Ability Good Dynamic Sitting Balance Ability Good Standing Balance and Reactions Static Standing Balance Ability Good Dynamic Standing Balance Ability Good Device Used FWW M5 PT-IP Objective Assessments Start: 01/07/20 08:29 Freq: NEEDED Status: Active Protocol: Document 01/07/20 10:55 AW (Rec: 01/07/20 11:25 AW [id number]) Orientation Orientation/Cognition Level of Alertness Alert Orientation Name,Day of Week,Place, Situation Language Function Ability No Deficits Noted Safety Awareness Decreased Safety Awareness Memory Description Short Term Impaired Comments Pt unable to recall all of his back precautions in spite of previous spine surgery and reminders of same. Recommend possible cognitive testing Gross Range of Motion Lower Extremity ROM Assessment Within Functional Limits Strength Lower Extremity Strength Assessment Bilaterally Impaired Hip 4-/5 Knee 4/5 Ankle 4-/5 Coordination Assessment Gross Coordination Gross Coordination WNL Sensation Assessment Sensation Gross Sensation Right LE Impaired,Left LE Impaired Comments Sensation Comments Diabetic neuropathy affecting bilateral lower legs in gaiter distribution. Pt reports extremely dull sensation especially in dorsal and plantar feet. Muscle Tone Muscle Tone WNL No M6 PT-IP Treatment Start: 01/07/20 08:29 Freq: NEEDED Status: Active Protocol: Document 01/07/20 10:55 AW (Rec: 01/07/20 11:25 AW [id number]) Physical Therapy Treatment Education Education Provided Precautions,Weight Bearing Status,Post-Op Packet,Safety Other Treatments Other Treatment Performed Provided education on role of PT, plan of care, spinal precautions, and safe use of FWW. M7 PT-IP Assessment and Plan Start: 01/07/20 08:29 Freq: NEEDED Status: Active Protocol: Document 01/07/20 10:55 AW (Rec: 01/07/20 11:25 AW [id number]) PT Summary Assessment and Plan Potential Rehabilitation Potential Good Status of Condition at Evaluation Evolving Summary Impairments Pain,ROM,Strength,Sensation, Cognition,Bed Mobility, Transfers,Gait,Activity Tolerance Assessment Summary Kirk is a 69 yo man seen for PT evaluation on POD1 following L2-5 TLIF. At baseline, he reports independence with functional mobility, occasionally using a single trekking pole for balance. He has been limited to ~100 yards ambulation distance due to increasing back pain. On evaluation, pt required SBA to CGA for all mobilities and frequent reorientation to spinal precautions - especially related to twisting. Pt has no assistance at home and this therapist has some concern about his safety at home mostly due to possible cognitive involvement. Will continue to assess for safety. Goals Bed Mobility Goal Independent Transfer Goal Independent,Front Wheeled Walker Gait Goal Independent,Front Wheel Walker Gait Distance 250 Other Goals - up/down 2 steps with unilateral rail independent Days to Meet Goals 3 Frequency of Treatment Frequency Of Treatment Twice a Day Treatment Plan Physical Therapy Treatment Plan Bed Mobility Training,Transfer Training,Gait Training, Therapeutic Exercise,Balance Retraining,Post Op Education, Discharge Planning,Hot or Cold Pack,Neuromuscular Re-ed, Coordination Retraining,Manual Therapy Other Recommendations and Next Treatment review spinal precautions, Focus assess safety on stairs. Recommendations To Nursing Amount of Assist Needed Standby Assistance Discharge Recommendations PT Discharge Recommendations Home with Assistance Transportation Needs at Discharge Private Vehicle
--- NOTE | 2020-01-07 13:19 | P.PN_ITS ---
Subjective Subjective Date Patient Seen: 01/07/20 Time Patient Seen: 07:00 Interval history: POD #1 s/p L2-3, L5-S1 TLIf, L3-5 HWR, L2-S1 PSF instrumentation with Dr. Cain H/H 7.7/22.9 BP 82/50, asymptomatic Patient complains of moderate pain in lower back. Pain controlled with oxycodone 10mg and tylenol. Muscle spasms controlled with vistaril. Mobilizing with PT, r ecommends home health. Voiding with avalos cathether, hx of BPH. Denies fever, chills, dizziness, chest pain, shortness of breath Exam Vital Signs (past 8 hours): /- 01/07/20 06:28 01/07/20 06:31 01/07/20 06:32 Temperature 99.9 F H 99.9 F H Pulse Rate 75 Respiratory Rate Blood Pressure 111/57 L Pulse Oximetry 01/07/20 07:54 01/07/20 08:16 01/07/20 10:39 Temperature 98.4 F Pulse Rate 67 77 Respiratory Rate 16 Blood Pressure 126/60 82/50 L Pulse Oximetry 98 100 01/07/20 10:44 01/07/20 10:50 01/07/20 12:09 Temperature 99.0 F Pulse Rate 82 78 73 Respiratory Rate 16 Blood Pressure 73/40 L 102/60 113/57 L Pulse Oximetry 94 Oxygen Delivery Method Nasal Cannula Oxygen Flow Rate 0 Narrative Exam Narrative: 69 yo M is sitting comfortably in bed, in no apparent distress. A&Ox3. Dressing saturated, serosanguineous. Unable to express drainage from wound. Incision dry, well approximated with giovanni. Able to actively dorsiflex/plantar flex BL. Sensory function grossly intact to light touch in LE BL. Dorsalis pedis 2+ BL. Calves warm, soft, compressible, non tender to palpation. Objective Labs Result Diagrams: 01/07/20 06:43 Labs: Laboratory Results - last 24 hr 01/07/20 06:43 Hgb 7.7 L Hct 22.1 L Assessment & Plan Post-op Postoperative Procedures: Procedures Operation Date: 01/06/20 07:45 Actual Procedures Side Surgeon p L2-3, L5-S1 TLIf, L3-5 HWR, L2-S1 PSF instrumentation Lashonda Cain MD Postoperative plan narrative: Hypotension - Bolus 500 mL NS (total 750 mL), ordered H/H for tomorrow AM Replaced cover site dressing Pain management - scheduled tylenol, added order for oxycodone 5mg PRN (attempt to step down meds) Continue SCDs Continue mobilizing with PT Likely discharge home tomorrow with home health assistance Time Spent With Patient Time with patient: less than 15 minutes
--- NOTE | 2020-01-07 14:00 | OT.IP.EVAL ---
Current Diagnoses Other spondylosis with radiculopathy, lumbosacral region (01/06/20) Spinal stenosis, lumbar region without neurogenic claudication (01/06/20) Arthrodesis status (01/06/20) Surgery Performed Operation Date: 01/06/20 07:45 Actual Procedures p L2-3, L5-S1 TLIf, L3-5 HWR, L2-S1 PSF instrumentation - Lashonda Cain MD Past Medical History (Last Updated 12/28/19 @ 09:53 by Cesar Bar DO) Anxiety (Chronic Unknown) Aortic stenosis (Chronic) Ascending aorta dilatation (Acute) Bilateral carotid artery disease (Acute ~09/2018) Bilateral carpal tunnel syndrome (Acute) BPH (benign prostatic hyperplasia) (Chronic Unknown) Chronic back pain (Acute) Chronic kidney disease (Acute) Chronic pain syndrome (Chronic Unknown) Chronic renal insufficiency (Chronic Unknown) Coronary artery disease (Suspected Unknown) Depression (Chronic Unknown) Diabetes (Chronic Unknown) GERD (gastroesophageal reflux disease) (Chronic Unknown) History of ETOH abuse (Resolved Unknown) Hyperlipemia (Chronic Unknown) Hypertension (Chronic Unknown) Low back pain (Chronic Unknown) Pancreatitis (Acute) Peripheral neuropathy (Chronic Unknown) Rheumatoid arthritis (Chronic Unknown) Rheumatoid arthritis (Acute) Surgical History (Last Updated 12/23/19 @ 09:54 by Myra Sow RN) History of back surgery (Resolved ~2012) History of surgery (Acute) History of surgical removal of skin lesion (Acute) Hx of cholecystectomy (Acute) S/P cervical spinal fusion (Acute) Status post hernia repair Status post knee surgery Occupational Therapy Inpatient Evaluation/Re-Eval M1 PT/OT-IP Prior Functional Status Start: 01/07/20 08:29 Freq: NEEDED Status: Active Protocol: Document 01/07/20 14:00 HEAVENLY (Rec: 01/07/20 15:14 PJMarcellus [id number]) Medical Review Prior Functional Status Medical History Reviewed Yes Diet/Fluid Consistency Regular Communication WFL. Able to make needs known Mobility and Gait Pt states he occasionally uses a single trekking pole to assist with balance. He is otherwise independent with mobility but reports a 100 yard limitation in ambulation distance due to pain. Activities of Daily Living and IADL's Pt lives alone and states he is independent with all ADLS including caring for his large dog (Labrador). He reports that he has 30% short term memory loss based on testing done at 2 years ago. He states all his bills are paid automatically and his medications are bubble packed. He denies any difficulties with hot meal preparation and states he still drives (days only). Prior Functional Level (Other details) Pt reports no falls in the past year. He reports supportive neighbors can assist with meals, grocery shopping and transport after d/c. Social History Household Members none Living Arrangements House Number of Floors (Floors) One Floor Number of Stairs To Enter/Railing? 2 stairs to enter, no rails Home Environment High Toilet,Tub/Shower Home Equipment Four Wheel Walker,Straight Cane,Long Handled Shoe Horn, Television News Reporter Employment Status Retired Additional Social History Comment Friend is caring for dog while pt here. M2 OT-IP Current Condition Start: 01/07/20 14:35 Freq: Status: Active Protocol: Document 01/07/20 14:00 PJ (Rec: 01/07/20 15:14 [email or web address] [id number]) Occupational Therapy Current Condition Current Condition Evaluation Date 01/07/20 Treatment Diagnosis decreased self care, mobility s/p L3-5 lami's with PLIF Diagnosis Onset Date 01/06/20 Post Operative Precautions Lumbar Precautions Log Roll,No Twisting,Limit Bending,Lifting Restriction of 10 lbs,Gait Belt above Incisional Area Other Precautions monitor orthostatics, pt hypotensive 01/07/20 EOB 93/55 HR 81 EOB 5 min- 105/50 HR 79 EOB 12 min-87/44 HR 81 standing- 78/41 HR 103 M3 OT- IP Subjective and Pain Start: 01/07/20 14:35 Freq: Status: Active Protocol: Document 01/07/20 14:00 PJM (Rec: 01/07/20 15:14 PJ [id number]) OT- Subjective Occupational Therapy Visit Type Type Initial Evaluation Visit Start Time 13:05 Visit Stop Time 14:00 Total Visit Minutes 55 Notes Pt's friend, Jb, here at end of session. Occupational Therapy Visit Comments Patient Comments I can't remember those rules. I don't have any been if I don't move. Patient/Caregiver Goals to go home and see his dog, be able to walk on the beach and fish OT Pain Assessment Pain When Pain Assessed After Treatment Pain Present Pain Present Pain Reported Location back Intensity 5 Description Aching,Acute,With Movement Pain Behaviors Facial Grimacing,Guarding Management Techniques Distraction,Re-positioning, Timing of Activity with Medications M4 OT- IP ADL's Start: 01/07/20 14:35 Freq: Status: Active Protocol: Document 01/07/20 14:00 PJM (Rec: 01/07/20 15:14 PJ [id number]) OT [id number] General Evaluation Self-Feeding Ability Independent OT ADL-Grooming Comments OT Grooming Comments did not occur this session, to be assessed OT ADL-Oral Care Comments Oral Care Comments did not occur this session OT ADL-Dressing General Eval Upper Body Dressing Ability Standby Assistance Lower Body Dressing Ability Minimal Assistance Areas Needing Assistance Socks Assistive Devices Dressing Assistive Devices Long Handled Shoe Horn,Television News Reporter ,Sock Aid Comments OT Dressing Comments Began education re: use of saw tailer and sock aid for lower body dressing within lumbar precautions. Sock aid provided ; pt has saw tailer and long shoe horn. Pt's sandals with orthotics are difficult to apply due to multiple straps. OT ADL-Toileting General Evaluation Toileting Ability Total Assistance Comments OT Toileting Comments avalos still in place OT ADL-Bathing Comments OT Bathing Comments Began education re: bathroom safety equipment. Pt had planned to sit on round wooden kitchen stool in tub shower combo. Provided education re: potential safety issues with this plan. Recommend shower seat and pt's friend, Jb, will borrow one from [employer] tomorrow. M5 OT- IP IADL's Start: 01/07/20 14:35 Freq: Status: Active Protocol: Document 01/07/20 14:00 PJM (Rec: 01/07/20 15:14 PJ [id number]) OT-Instrumental Activities of Daily Living Deficits IADL Deficits Identified Deficits Home Safety Awareness Awareness of Need for Assistance at Home Decreased Awareness Home Safety Comments Pt has significant short term memory deficits that could interfere with home safety and driving. Medication Management Medication Management Comments Pt states meds are bubble packed. Recommend close supervision for any post op pain medications. Discussed with Alan Money Management Money Management Comments Pt states he has his bills paid automatically. Recommend supervision Meal Preparation Meal Preparation Comments Pt states he does not use microwave often. Provided education re: use of timer to remind pt to shit stove off. Recommend home health OT followup for further safety assessment. Prosthetic Aides Teacher Prosthetic Aides Teacher Comments Pt will need assist until MD approves increased activity Driving Driving Comments Pt's short term memory deficits raise some concern about driving safety. M6 OT- IP Functional Cognition Start: 01/07/20 14:35 Freq: Status: Active Protocol: Document 01/07/20 14:00 PJM (Rec: 01/07/20 15:14 PJM [id number]) Cognitive Factors Limiting Selfcare Function Cognitive Ability Level of Alertness Alert Patient Orientation Name,Month,Year,Place, Situation Attention Span Ability Capable of Focused Attention, Capable of Sustained Attention Ability to Follow Commands Able to Follow One Step Commands Memory Description Short Term Impaired Safety Awareness Decreased Recall of Precautions,Decreased Ability to Apply Precautions, Underestimates Need for Assistance Problem Solving Ability Unable to Identify Errors, Needs Assist to Identify Solutions Executive Function Ability Unable to Remember Details Cognitive Comments Cognitive Assessment Comments Pt has significant short term memory deficits and unable to recall lumbar precautions despite previous education by P.T. Posted several large signs in room to remind pt of precautions including one on bedside table. OT- Vision and Hearing OT- Hearing Assessment OT- Hearing Assessment WFL OT- Vision Assessment Visual Acuity WFL,Glasses For Reading Vision Assessment Comments Pt states he lost his prescription glasses and now is using reading glasses only. M7 OT- IP Mobility and Balance Start: 01/07/20 14:35 Freq: Status: Active Protocol: Document 01/07/20 14:00 PJM (Rec: 01/07/20 15:14 PJ [id number]) OT- Bed Mobility Assessment Rolling Level of Assistance Contact Guard Assistance Supine to Sit Supine to Sit Assist Standby Assistance Scooting Scooting to Edge of Bed Standby Assistance OT-Transfer Assessment Sit to and From Stand Sit to and from Stand Contact Guard Assistance Comments Mobility Comments did not transfer pt to bed due to hypotension OT- Gait Assessment Comments Gait Ability Comments did not occur this session due to hypotension OT- Balance Assessment Sitting Balance and Reactions Static Sitting Balance Ability Good Dynamic Sitting Balance Ability Good M8 OT- IP Objective Assessments Start: 01/07/20 14:35 Freq: Status: Active Protocol: Document 01/07/20 14:00 PJM (Rec: 01/07/20 15:14 PJ [id number]) OT Gross Range of Motion Upper Extremity Range of Motion Assessment Within Functional Limits OT Strength Upper Extremity Strength Assessment Within Functional Limits OT- Coordination Assessment Comments Coordination Comments Pt has hx of B carpal tunnel syndrome and normally wears leather L wrist cock up splint. Pt unable to wear splint at present due to IV in dorsum of hand. Pt has sensory deficits in thumb, index, middle fingers of both hands which interferes with fine dexterity . OT-Muscle Tone Assessment Muscle Tone WNL Yes OT Sensation Assessment Comments Summary Comments Median nerve distribution numbness in fingertips of B hands. Edema Edema Absent M9 OT- IP Assessment and Plan Start: 01/07/20 14:35 Freq: Status: Active Protocol: Document 01/07/20 14:00 PJM (Rec: 01/07/20 15:14 PJM [id number]) OT Summary Assessment and Plan Potential Analytic Complexity at Evaluation Low Summary OT Impairments Balance,Functional Cognition, Functional Mobility,Grooming, Dressing,Toileting,Bathing, Toilet Transfers,Shower Transfers,Activity Tolerance Assessment Summary Low complexity OT assessment completed on this 69 yr old male admitted for L3-5 lami's with PLIF with significant post op anemia and orthostatic hypotension. PMHX includes significant short term memory deficits and pt not able to recall lumbar spine precautions. Multiple signs posted in pt's room as prompts for precautions. Pt's primary performance deficit at present is decreased activity tolerance limited by orthostatic hypotension. He was unable to ambulate this afternoon due to low BP. Pt's cognitive deficits interfere with safe completion of mobility and self care tasks. Pt also has performance deficits in lower body dressing, bathing, toileting and standing grooming. Note that pt lives alone. Pt currently needs assist during all waking hours to recall and follow lumbar precautions. Will provide OT services here to address the goals below. Recommend SNF at present for safety as pt needs much repetition of new information for learning. If pt makes significant improvement in his ability to recall and follow spine precautions, he may be able to d/c home with HH OT/PT and intermittent daily assist from supportive neighbors. Goals Grooming Goal Independent Dressing Goal Independent,Long Handled Shoe Horn,Television News Reporter,Sock Aid Toileting Goal Independent Bathing Goal Standby Assistance,Long Handled Sponge or [place] Toilet Transfer Goal Independent,ADA High Toilet Shower Transfer Goal Standby Assistance,Tub/Shower Combination,Shower Chair Patient/Caregiver Education Goal Demonstrate Post-Op Precautions,Demonstrate Energy Conservation and Pacing, Caregiver Independent Assisting Patient OT-Other Goals Grooming to be done standing at sink with good body mechanics and safety awareness . Days to Meet Goals 5 Frequency of Treatment Frequency Of Treatment Once a Day Treatment Plan OT Treatment Plan ADL Training,Functional Cognition Training,Functional Mobility,Patient/Family Education,Discharge Planning Discharge Recommendations OT Discharge Recommendations SNF Rehab Other Discharge Recommendations vs home with HH OT/PT and assist from neighbors pending progress here Home Equipment Needs shower seat Transportation Needs at Discharge Wheelchair/Cabulance
--- NOTE | 2020-01-07 14:05 | CM.IDA ---
Initial DCP Assessment Note: Pt is a 69 yo male, resident of [facility]. Pt is POD#1 from spinal surgery w/ Dr Cain. PCP: Cesar Bar Payer: BERNICE/Chele Reviewed chart, spoke w/ Isabell PT. Pt has been cleared to return home from a functional standpoint, although concern has been documented about pt's difficulty in following precautions, possible cognitive deficit (see notes from PT/OT). Met w/pt to explain SW role and review DCP. Pt is noticeably groggy, continues to shut his eyes but is A+O for our conversation. Pt states he feels grateful to be a part of his [facility] where people have offered meals, to assist w/ his lab, check in on him and assist w/transport to doctor's/therapy appts as needed. Discussed home health and pt was not against this idea but wondered if he needed it ? This AUTOMATIC CHIEF suggested continued collaboration between DC planning team and therapy team, need for home health could be discussed upon DC, likely tomorrow. Pt agreeable and appreciative of the visit. Later discussed DCP w/ OT Elizabeth and Bhavik Tate PA; pt will stay the night as an observation status, plan will be home tomorrow, likely w/HH if pt agreeable. ROBERT Henao Discharge Planning/Care Management Protocol: Document 01/07/20 14:00 MAIKEL (Rec: 01/07/20 14:05 [id number]) Discharge Planning Assessment Assigned Vitreo Retinal Surgeon ROBERT Copeland DPOA/Assigned Designee Name True Abreu, friend , Kane (Friend) Contact Information [phone], Advance Directives? Yes Advance Directives on File No History Provided By Patient,Medical Record Prior Living Arrangements House Household Members none Type of transporation used prior to Drives own vehicle admit Independent with ADL's Yes Is patient alert and oriented? No: Mild dementia, short term memory loss Barriers to Discharge Yes Comment Short term memory loss Discharge Plan Home Transportation Arrangement Friend Additional Comment R/o HH upon DC Whiteboard Updated in Patient Room with Yes name and ext. # of Vitreo Retinal Surgeon Review Status In Process
[2020-01-07] MEDS: ACETAMINOPHEN 325 MG TABLET 975 MG PO ×2 (14:37→22:03)
--- NOTE | 2020-01-07 14:51 | PT.IPTN ---
Current Diagnoses Other spondylosis with radiculopathy, lumbosacral region (01/06/20) Spinal stenosis, lumbar region without neurogenic claudication (01/06/20) Arthrodesis status (01/06/20) Surgery Performed Operation Date: 01/06/20 07:45 Actual Procedures p L2-3, L5-S1 TLIf, L3-5 HWR, L2-S1 PSF instrumentation - Lashonda Cain MD Physical Therapy Treatment Note M2 PT-IP Current Condition Start: 01/07/20 08:29 Freq: NEEDED Status: Active Protocol: Document 01/07/20 10:55 AW (Rec: 01/07/20 11:25 AW [id number]) Physical Therapy Current Condition Current Condition Evaluation Date 01/07/20 Treatment Diagnosis L2-L5 TLIF, impaired mobility Onset Date 01/06/20 Precautions Lumbar Precautions Log Roll,No Twisting,Limit Bending,Lifting Restriction of 10 lbs,Gait Belt above Incisional Area Weight Bearing Status Weight Bearing Status Full Weight Bearing M3 PT-IP Subjective Start: 01/07/20 08:29 Freq: NEEDED Status: Active Protocol: Document 01/07/20 14:37 AW (Rec: 01/07/20 14:51 AW [id number]) Subjective Physical Therapy Visit Type Type Treatment Note Visit Start Time 13:55 Visit Stop Time 14:15 Total Visit Minutes 20 Number of SOW FARM BARN TECHNICIAN Visits 0 Physical Therapy Visit Comments Patient Comments Pt willing to mobilize with PT Therapy Pain Assessment Pain When Pain Assessed At Rest Pain Present Pain Present Pain Reported Location Bilateral Hand Intensity 4 Scale Used Numeric (1 - 10) Pain Management Techniques Timing of Activity with Medications M4 PT-IP Mobility and Gait Start: 01/07/20 08:29 Freq: NEEDED Status: Active Protocol: Document 01/07/20 14:37 AW (Rec: 01/07/20 14:51 AW [id number]) PT-Bed Mobility Assessment Rolling Type of Rolling Log Rolling Level of Assist Standby Assistance Sit to Supine Sit to Supine Standby Assistance Scooting Scooting to Edge of Bed Standby Assistance PT-Transfer Assessment Sit to and From Stand Sit to and from Stand Standby Assistance Equipment Transfer Assistive Device Gait Belt,Front Wheeled Walker Comments Mobility Comments Pt sitting up EOB with OT upon PT arrival. Supine BP prior to PT arrival was 105/50 HR 79 . BP sitting EOB was 93/55 HR 81 with pt reporting mild dizziness. Dizzy sensation increased in standing with pt reporting reduction in peripheral vision - BP 78/41 HR 103. Pt was assisted to sit EOB and then completed sit to supine with log roll SBA. Pt was able to sequence sit to supine appropriately. After 3 minutes supine, pt's BP was 87 /44 HR 81. Gait Assessment Comments Gait Comments Unsafe to ambulate at this time due to symptomatic hypotension. Stair Climbing Assessment Comments Stair Climbing Comments Not assessed. M5 PT-IP Objective Assessments Start: 01/07/20 08:29 Freq: NEEDED Status: Active Protocol: Document 01/07/20 10:55 AW (Rec: 01/07/20 11:25 AW [id number]) Orientation Orientation/Cognition Level of Alertness Alert Orientation Name,Day of Week,Place, Situation Language Function Ability No Deficits Noted Safety Awareness Decreased Safety Awareness Memory Description Short Term Impaired Comments Pt unable to recall all of his back precautions in spite of previous spine surgery and reminders of same. Recommend possible cognitive testing Gross Range of Motion Lower Extremity ROM Assessment Within Functional Limits Strength Lower Extremity Strength Assessment Bilaterally Impaired Hip 4-/5 Knee 4/5 Ankle 4-/5 Coordination Assessment Gross Coordination Gross Coordination WNL Sensation Assessment Sensation Gross Sensation Right LE Impaired,Left LE Impaired Comments Sensation Comments Diabetic neuropathy affecting bilateral lower legs in gaiter distribution. Pt reports extremely dull sensation especially in dorsal and plantar feet. Muscle Tone Muscle Tone WNL No M6 PT-IP Treatment Start: 01/07/20 08:29 Freq: NEEDED Status: Active Protocol: Document 01/07/20 14:37 AW (Rec: 01/07/20 14:51 AW [id number]) Physical Therapy Treatment Education Education Provided Precautions,Safety Other Treatments Other Treatment Performed Pt's friend, Jb, arrived to visit during PT treatment. Discussed the possibility of Jb going to [facility] in the morning to procure a shower seat for Kirk. Jb agreed he could do so. Continued to educate pt on spinal precautions but he was unable to recall any of them. Signs were posted around the room spelling out all precautions but pt indicated he was trying to remember the precautions without looking at the signs. PT encouraged the pt to use the signs as reminders as often as needed. M7 PT-IP Assessment and Plan Start: 01/07/20 08:29 Freq: NEEDED Status: Active Protocol: Document 01/07/20 14:37 AW (Rec: 01/07/20 14:51 AW [id number]) PT Summary Assessment and Plan Summary Impairments Pain,ROM,Strength,Sensation, Cognition,Bed Mobility, Transfers,Gait,Activity Tolerance Progress Towards Goals Slow Progress due to Medical Issues Assessment Summary Treatment limited this afternoon secondary to symptomatic hypotension. Pt's friend, Jb, states he will go to [facility] in the morning to procure a shower seat for the pt. Pt was frustrated with his inability to recall his spinal precautions; PT encouraged him to use signs posted around his environment to remind himself. Conversation with OT revealed that the pt has had cognition testing at that was suggestive of early onset dementia. PT strongly recommends home health at discharge for this pt in order to continue educating on spinal precautions and memory aids to assist in remembering them. Goals Bed Mobility Goal Independent Transfer Goal Independent,Front Wheeled Walker Gait Goal Independent,Front Wheel Walker Gait Distance 250 Other Goals - up/down 2 steps with unilateral rail independent Days to Meet Goals 3 Frequency of Treatment Frequency Of Treatment Twice a Day Treatment Plan Physical Therapy Treatment Plan Bed Mobility Training,Transfer Training,Gait Training, Therapeutic Exercise,Balance Retraining,Post Op Education, Discharge Planning,Hot or Cold Pack,Neuromuscular Re-ed, Coordination Retraining,Manual Therapy Other Recommendations and Next Treatment review spinal precautions and Focus encourage use of signs posted around the room, assess safety on stairs, progress gait distance Recommendations To Nursing Amount of Assist Needed Standby Assistance Discharge Recommendations PT Discharge Recommendations Home with Assistance,Home Health
[2020-01-07] MEDS: TAMSULOSIN 0.4 MG CAPSULE 0.8 MG PO (18:12)
--- NOTE | 2020-01-07 20:10 | PC.NURSE ---
Pt slept most of evening shift. HH from 0643 was low (7.7, 22.1). BP has been low (102/58 taken at 1930). Other vitals within normal range. Last BS was 115 taken at 1940. Has not yet ambulated during this shift, but ambulated during morning shift. I&Os stable.
[2020-01-07] MEDS: SENNOSIDES 8.6 MG TABLET 17.2 MG PO (22:04)
--- NOTE | 2020-01-07 23:47 | PC.NURSE ---
Sejal shift note: Patient alert and oriented, cooperative. Up out of bed to chair, shadow to dressing, unchanged from start of shift. Adequate pain control with ordered meds. Declined Metoprolol at HS due to low BP, oncoming RN aware. BP 102/58, hr 80, NO dizziness. High fall risk precautions, calls appropriately for staff assistance.
[2020-01-08] VITALS (15 sets, daily range): BP systolic 108–136; BP diastolic 52–78; PULSE 62–79; RESP 12–18; TEMP 36.4–38; O2SAT 95–100
[2020-01-08] MEDS: OXYCODONE IR 10 MG TABLET PO ×3 (03:20→14:58)
[2020-01-08] MEDS: HYDROMORPHONE 0.5 MG INJ IV (04:41)
--- NOTE | 2020-01-08 05:00 | PC.NURSE ---
Patient awoke to pain in his fingers. C/O pain 10/10. Percolone 10 mg given, repositioned, reinforced dressing. Patient able to rest for a while. Then again C/O pain 10/10, gave dilaudid, repositioned, placed ice to lumbar area, and to right foot. Had hands elevated, also tried hands lowered.
[2020-01-08 06:48] LABS: Hemoglobin 6.9 g/dL (13.5-17.5)
[2020-01-08 06:49] LABS: Hematocrit 20.1 % (41-53)
--- NOTE | 2020-01-08 08:03 | PC.NURSE ---
Attempting to reach Dr. Cain. Got disconnected from person I was asking to have Dr. Cain contact me at the hospital for critical lab value and pain 08/20 Attempted call again, and was able to reach person, who gave me to Darius who stated he will relay message to Dr. Cain regarding pain 08/20, and critical lab value today H6.07/31.1. States will have him call here and speak with day nurse Trudy.
[2020-01-08] MEDS: ISOSORBIDE MONONITRATE ER 30 MG TABLET PO (08:09)
[2020-01-08] MEDS: ACETAMINOPHEN 325 MG TABLET 975 MG PO ×3 (08:09→20:41)
[2020-01-08] MEDS: AMLODIPINE 5 MG TABLET PO (08:10)
[2020-01-08] MEDS: ATORVASTATIN 20 MG TABLET PO (08:10)
[2020-01-08] MEDS: DOCUSATE 100 MG CAPSULE PO ×2 (08:10→20:42)
[2020-01-08] MEDS: DULOXETINE 30 MG CAPSULE PO ×2 (08:10→20:42)
[2020-01-08] MEDS: glipiZIDE 5 MG TABLET 2.5 MG PO ×2 (08:11→20:41)
[2020-01-08] MEDS: GABAPENTIN 600 MG TABLET 1800 MG PO ×2 (08:11→20:42)
[2020-01-08] MEDS: hydrOXYzine pamoate 25 MG CAPSULE PO ×2 (08:12→14:58)
[2020-01-08] MEDS: METOPROLOL ER 50 MG TABLET PO ×2 (08:18→20:42)
[2020-01-08] MEDS: OXYBUTYNIN 5 MG ER TAB PO (08:18)
--- NOTE | 2020-01-08 12:00 | OT.IPNOTE ---
Pt getting blood transfusion and therefore check on pt tomorrow for OT treatment.
--- NOTE | 2020-01-08 12:27 | PC.NURSE ---
Capillary refill <2, pt denies SOB, O2 RA=95%, skin pink; blood transfusing; VSS Pt reports 5/10 pain to bl hands/wrists R>L; PO medication administered;c/m/s to blle positive; PPP; Barton draining to gravity
--- NOTE | 2020-01-08 12:56 | PT-IP ANOTE ---
Attempted to treat patient several times this am. Informed by nursing that he is receiving a blood transfusion and would be best to see pt after this is done. Transfusion performed late morning. Will check with pt in the pm.
--- NOTE | 2020-01-08 15:05 | PM.PN.1 ---
Subjective Subjective Date Patient Seen: 01/08/20 Time Patient Seen: 15:05 Interval history: POD #2 s/p L2-3, L5-S1 TLIF, L3-5 HWR, L2-S1 PSF instrumentation with Dr. Cain. Patient hypotensive with H/H today of 6.9/20.2. 2 units of PRBC ordered. Has not mobilized today due to this. Pain has been moderate, pain medications not given due to hypotension. Exam Vital Signs (past 8 hours): - 01/08/20 07:30 01/08/20 08:18 01/08/20 11:10 Temperature 97.6 F 99.7 F H Pulse Rate 75 74 70 Respiratory Rate 14 14 Blood Pressure 123/58 L 123/58 L 119/53 L Pulse Oximetry 98 01/08/20 11:31 01/08/20 11:39 01/08/20 12:00 Temperature 99.1 F 98.8 F Pulse Rate 67 67 74 Respiratory Rate 16 15 Blood Pressure 121/57 L 121/57 L 113/58 L Pulse Oximetry 97 01/08/20 14:48 Temperature Pulse Rate 65 Respiratory Rate 12 Blood Pressure 132/78 Pulse Oximetry Oxygen Delivery Method Nasal Cannula Oxygen Flow Rate 0 Narrative Exam Narrative: 69 year old male in bed in moderate discomfort. Alert and oriented. Patient being transfused with first unit of PRBC at time of exam. Dressing overlying lumbar spine removed. Some saturation of underlying 4x4s without penetration to outer layers of the dressing. Moderate bruising about the right incision with underlying fluctuance consistent with postop hematoma. 4/5 throughout BLE. Sensation intact to light touch except at lateral surface of distal right foot. Objective Labs Result Diagrams: 01/08/20 06:00 Labs: Laboratory Results - last 24 hr 01/08/20 01/08/20 06:00 09:05 Hgb 6.9 L* Hct 20.1 L* Blood Type B Positive Antibody Screen Negative Crossmatch See Detail Assessment & Plan Assessment & Plan narrative: Patient with postoperative anemia secondary to blood loss, with possible hematoma formation. Patient has no changes in his neurologic exam at this time. Only anticoagulation is ASA which was discontinued 7 days preop. Discussed with Dr. Cain whose recommendation it to trend H/H. 2 units PRBC ordered today with H/H to follow. Will trend H/H daily. He may continue to work with PT as his hypotension resolves. No changes to pain management at this time. Likely discharge to home with home health when medically stable.
--- NOTE | 2020-01-08 15:11 | PT.IPTN ---
Current Diagnoses Other spondylosis with radiculopathy, lumbosacral region (01/06/20) Spinal stenosis, lumbar region without neurogenic claudication (01/06/20) Arthrodesis status (01/06/20) Surgery Performed Operation Date: 01/06/20 07:45 Actual Procedures p L2-3, L5-S1 TLIf, L3-5 HWR, L2-S1 PSF instrumentation - Lashonda Cain MD Physical Therapy Treatment Note M2 PT-IP Current Condition Start: 01/07/20 08:29 Freq: NEEDED Status: Active Protocol: Document 01/08/20 14:26 NFW (Rec: 01/08/20 15:11 NF [id number]) Physical Therapy Current Condition Precautions Lumbar Precautions Log Roll,No Twisting,Limit Bending,Lifting Restriction of 10 lbs,Gait Belt above Incisional Area Weight Bearing Status Weight Bearing Status Full Weight Bearing M3 PT-IP Subjective Start: 01/07/20 08:29 Freq: NEEDED Status: Active Protocol: Document 01/08/20 14:26 NFW (Rec: 01/08/20 15:11 NFW [id number]) Subjective Physical Therapy Visit Type Type Treatment Note Visit Start Time 14:26 Visit Stop Time 14:56 Total Visit Minutes 30 Number of SCENERY BUILDER Visits 0 Physical Therapy Visit Comments Patient Comments Pt anxious to move. Currently receiving blood infusion. Pt does appear groggy. Required repetition of instructions as he would fade and fall asleep . Therapy Pain Assessment Pain When Pain Assessed At Rest Pain Present Pain Present Pain Reported M4 PT-IP Mobility and Gait Start: 01/07/20 08:29 Freq: NEEDED Status: Active Protocol: Document 01/08/20 14:26 NFW (Rec: 01/08/20 15:11 NFW [id number]) PT-Bed Mobility Assessment Rolling Type of Rolling Log Rolling Level of Assist Standby Assistance Supine to Sit Supine to Sit Contact Guard Assistance,1 Person Assistance Scooting Scooting to Edge of Bed Contact Guard Assistance PT-Transfer Assessment Sit to and From Stand Sit to and from Stand Contact Guard Assistance,1 Person Assistance,Use of Upper Extremities Equipment Transfer Assistive Device Gait Belt,Front Wheeled Walker Orthotic/Prosthetic Devices or Brace: No Transfers Transfer Destination Chair Transfer Technique pt ambulated with FWW Transfer Ability Level of Assist Contact Guard Assistance,1 Person Assistance Comments Mobility Comments Had pt log roll to right several times for nursing to check incision and change bandaging. Supine BP 132/78, pulse 65, O2 98. Sitting BP dropped to 73/65, pulse 84. Had pt remaining sitting for 3 minutes. BP rechecked at 117 /59, pulse 70. Pt transfered to chair with FWW, CGA. BP 133/63, pulse 70. No complaints of dizziness. His main concern is pain in his right ankle. Gait Assessment Gait Gait Assistance Required: Contact Guard Assist Distance (Feet) 5 Able to Maintain Weight Bearing Status Yes During Gait Assistive Devices Assistive Device Gait Belt,Front Wheeled Walker Orthotic/Prosthetic Devices or Brace: No Comments Gait Comments Limited activity to transfer from bed to chair by request of nursing. Pt receiving second blood infusion. Stair Climbing Assessment Comments Stair Climbing Comments Not assessed. PT-Balance Assessment Sitting Balance and Reactions Static Sitting Balance Ability Good Dynamic Sitting Balance Ability Good Standing Balance and Reactions Static Standing Balance Ability Good Device Used FWW M5 PT-IP Objective Assessments Start: 01/07/20 08:29 Freq: NEEDED Status: Active Protocol: Document 01/07/20 10:55 AW (Rec: 01/07/20 11:25 AW [id number]) Orientation Orientation/Cognition Level of Alertness Alert Orientation Name,Day of Week,Place, Situation Language Function Ability No Deficits Noted Safety Awareness Decreased Safety Awareness Memory Description Short Term Impaired Comments Pt unable to recall all of his back precautions in spite of previous spine surgery and reminders of same. Recommend possible cognitive testing Gross Range of Motion Lower Extremity ROM Assessment Within Functional Limits Strength Lower Extremity Strength Assessment Bilaterally Impaired Hip 4-/5 Knee 4/5 Ankle 4-/5 Coordination Assessment Gross Coordination Gross Coordination WNL Sensation Assessment Sensation Gross Sensation Right LE Impaired,Left LE Impaired Comments Sensation Comments Diabetic neuropathy affecting bilateral lower legs in gaiter distribution. Pt reports extremely dull sensation especially in dorsal and plantar feet. Muscle Tone Muscle Tone WNL No M6 PT-IP Treatment Start: 01/07/20 08:29 Freq: NEEDED Status: Active Protocol: Document 01/08/20 14:26 NFW (Rec: 01/08/20 15:11 NFW [id number]) Physical Therapy Treatment Education Education Provided Precautions,Safety M7 PT-IP Assessment and Plan Start: 01/07/20 08:29 Freq: NEEDED Status: Active Protocol: Document 01/08/20 14:26 NFW (Rec: 01/08/20 15:11 NFW [id number]) PT Summary Assessment and Plan Potential Rehabilitation Potential Good Status of Condition at Evaluation Evolving Summary Impairments Pain,ROM,Strength,Sensation, Cognition,Bed Mobility, Transfers,Gait,Activity Tolerance Assessment Summary Pt groggy throughout treatment but willing to follow through with treatment. In the process of receiving second blood transfusion. Required CGA with transfers due to BP drops, grogginess, pain in right foot and increase pain in LB rated at 7/10. Goals Bed Mobility Goal Independent Transfer Goal Independent,Front Wheeled Walker Gait Goal Independent,Front Wheel Walker Gait Distance 250 Other Goals - up/down 2 steps with unilateral rail independent Days to Meet Goals 3 Treatment Plan Physical Therapy Treatment Plan Bed Mobility Training,Transfer Training,Gait Training, Therapeutic Exercise,Balance Retraining,Post Op Education, Discharge Planning,Hot or Cold Pack,Neuromuscular Re-ed, Coordination Retraining,Manual Therapy Other Recommendations and Next Treatment Continual review of spinal Focus precautions. Recommendations To Nursing Amount of Assist Needed Standby Assistance,1 Person Assist Discharge Recommendations PT Discharge Recommendations Home with Assistance,Home Health
[2020-01-08] MEDS: TAMSULOSIN 0.4 MG CAPSULE 0.8 MG PO (18:09)
[2020-01-08 20:33] LABS: Hematocrit 24.6 % (41-53); Hemoglobin 8.6 g/dL (13.5-17.5)
[2020-01-08] MEDS: SENNOSIDES 8.6 MG TABLET 17.2 MG PO (20:42)
[2020-01-08] MEDS: SODIUM CHLORIDE 0.9% 1,000 ML 100 ML IV (22:25)
[2020-01-09] VITALS (9 sets, daily range): BP systolic 123–155; BP diastolic 66–80; PULSE 67–78; RESP 16–20; TEMP 36.9–37.3; O2SAT 96–99
[2020-01-09] MEDS: OXYCODONE IR 10 MG TABLET PO ×2 (00:52→12:48)
[2020-01-09] MEDS: OXYCODONE IR 5 MG TABLET PO ×3 (04:03→19:28)
[2020-01-09 05:49] LABS: Hemoglobin 8.8 g/dL (13.5-17.5)
[2020-01-09] MEDS: ISOSORBIDE MONONITRATE ER 30 MG TABLET PO (07:05)
--- NOTE | 2020-01-09 08:49 | PM.PNPO.1 ---
Subjective Subjective Date Patient Seen: 01/09/20 Time Patient Seen: 08:49 Interval history: Pain moderate. Denies fever chills. Patient does live alone. Exam Vital Signs (past 8 hours): - 01/09/20 04:00 Temperature 99.2 F Pulse Rate 73 Respiratory Rate 18 Blood Pressure 154/73 H Pulse Oximetry 98 Oxygen Delivery Method Room Air Oxygen Flow Rate 0 Narrative Exam Narrative: 69-year-old male resting comfortably in bed in no apparent distress. Mild swelling generally about the incision. The dressing is clean, dry and intact. Sensation grossly intact to light touch bilateral lower extremities. Motor functions intact bilateral lower extremities. Both legs are warm and dry. Objective Labs Result Diagrams: 01/09/20 05:30 Labs: Laboratory Results - last 24 hr 01/08/20 01/08/20 01/09/20 09:05 20:24 05:30 Hgb 8.6 L 8.8 L Hct 24.6 L 25.0 L Blood Type B Positive Antibody Screen Negative Crossmatch See Detail Assessment & Plan Post-op Postoperative Procedures: Procedures Operation Date: 01/06/20 07:45 Actual Procedures Side Surgeon p L2-3, L5-S1 TLIf, L3-5 HWR, L2-S1 PSF instrumentation Lashonda Cain MD Postop day 3 status post lumbar fusion. Patient was hypotensive and had postop anemia secondary to blood loss during surgery. Received 2 units of packed red blood cells yesterday. Patient overall improving. Mobilize with physical therapy. Limit bending, twisting, lifting. If patient remains stable likely discharge home tomorrow.
[2020-01-09] MEDS: ACETAMINOPHEN 325 MG TABLET 975 MG PO ×3 (09:15→21:23)
[2020-01-09] MEDS: hydrOXYzine pamoate 25 MG CAPSULE PO (09:16)
[2020-01-09] MEDS: DULOXETINE 30 MG CAPSULE PO ×2 (09:17→21:24)
[2020-01-09] MEDS: GABAPENTIN 600 MG TABLET 1800 MG PO ×2 (09:17→21:23)
[2020-01-09] MEDS: METOPROLOL ER 50 MG TABLET PO ×2 (09:17→22:14)
[2020-01-09] MEDS: DOCUSATE 100 MG CAPSULE PO ×2 (09:17→21:25)
[2020-01-09] MEDS: ATORVASTATIN 20 MG TABLET PO (09:17)
[2020-01-09] MEDS: AMLODIPINE 5 MG TABLET PO (09:17)
[2020-01-09] MEDS: glipiZIDE 5 MG TABLET 2.5 MG PO ×2 (09:17→21:25)
[2020-01-09] MEDS: HYDROMORPHONE 0.5 MG INJ IV (09:22)
[2020-01-09] MEDS: OXYBUTYNIN 5 MG ER TAB PO (09:31)
--- NOTE | 2020-01-09 09:33 | PT.IPTN ---
Current Diagnoses Other spondylosis with radiculopathy, lumbosacral region (01/06/20) Spinal stenosis, lumbar region without neurogenic claudication (01/06/20) Arthrodesis status (01/06/20) Surgery Performed Operation Date: 01/06/20 07:45 Actual Procedures p L2-3, L5-S1 TLIf, L3-5 HWR, L2-S1 PSF instrumentation - Lashonda Cain MD Physical Therapy Treatment Note M2 PT-IP Current Condition Start: 01/07/20 08:29 Freq: NEEDED Status: Active Protocol: Document 01/08/20 14:26 NFW (Rec: 01/08/20 15:11 NFW [id number]) Physical Therapy Current Condition Precautions Lumbar Precautions Log Roll,No Twisting,Limit Bending,Lifting Restriction of 10 lbs,Gait Belt above Incisional Area Weight Bearing Status Weight Bearing Status Full Weight Bearing M3 PT-IP Subjective Start: 01/07/20 08:29 Freq: NEEDED Status: Active Protocol: Document 01/09/20 09:33 AB (Rec: 01/09/20 13:23 AB [id number]) Subjective Physical Therapy Visit Type Type Treatment Note Visit Start Time 09:33 Visit Stop Time 10:09 Total Visit Minutes 36 Number of AUTOMATIC CORN GRINDER OPERATOR Visits 0 Physical Therapy Visit Comments Patient Comments pt agreeable to do PT Therapy Pain Assessment Pain When Pain Assessed At Rest Pain Present Pain Present Pain Reported Location Bilateral Hand Intensity 9 Scale Used Numeric (1 - 10) Pain Management Techniques Distraction,Re-positioning, Timing of Activity with Medications M4 PT-IP Mobility and Gait Start: 01/07/20 08:29 Freq: NEEDED Status: Active Protocol: Document 01/09/20 09:33 AB (Rec: 01/09/20 13:23 AB [id number]) PT-Bed Mobility Assessment Rolling Type of Rolling Log Rolling Level of Assist Standby Assistance Supine to Sit Supine to Sit Standby Assistance Scooting Scooting to Edge of Bed Standby Assistance PT-Transfer Assessment Sit to and From Stand Sit to and from Stand Minimal Assistance,1 Person Assistance,Use of Upper Extremities Equipment Transfer Assistive Device Gait Belt,Front Wheeled Walker Orthotic/Prosthetic Devices or Brace: No Transfers Transfer Destination Chair Transfer Technique ambulated using FWW Transfer Ability Level of Assist Minimal Assistance,1 Person Assistance,Use of Upper Extremities Comments Mobility Comments pt agreed to do PT. completed supine to sit log roll SBA. completed sit to stand min A and cues. ambulated in room using FWW~ 10 ft min A and cues and requested to put his shoes and underwear on. instructed pt to sit on the chair. completed stand to sit min A and cues for controlle descent. assisted pt with donning of brief/shoes. was able to maintain standing min A using FWW for support while assisted with brief management . pt agreed to do more ambulation and completed in room ~ 40 ft using FWW min A and cues. pt presents with very slow tasha, step to gait. agreed to sit up on chair. positioned on chair. call light and table placed within reach. Gait Assessment Gait Gait Assistance Required: Minimum Assistance,Maximum Assistance Distance (Feet) 40 Able to Maintain Weight Bearing Status Yes During Gait Assistive Devices Assistive Device Gait Belt,Front Wheeled Walker Orthotic/Prosthetic Devices or Brace: No Gait Deviations General Gait Pattern Antalgic,Decreased Stride Length,Decreased Feet Clearance Factors Limiting Gait Function Factors Limiting Gait Function Decreased Activity Tolerance, Decreased Strength,Difficulty Following Directions,Limited Range of Motion,Pain,Poor Balance,Poor Safety Awareness PT-Balance Assessment Sitting Balance and Reactions Static Sitting Balance Ability Good Dynamic Sitting Balance Ability Good Standing Balance and Reactions Static Standing Balance Ability Fair Dynamic Standing Balance Ability Fair Device Used FWW M5 PT-IP Objective Assessments Start: 01/07/20 08:29 Freq: NEEDED Status: Active Protocol: Document 01/07/20 10:55 AW (Rec: 01/07/20 11:25 AW [id number]) Orientation Orientation/Cognition Level of Alertness Alert Orientation Name,Day of Week,Place, Situation Language Function Ability No Deficits Noted Safety Awareness Decreased Safety Awareness Memory Description Short Term Impaired Comments Pt unable to recall all of his back precautions in spite of previous spine surgery and reminders of same. Recommend possible cognitive testing Gross Range of Motion Lower Extremity ROM Assessment Within Functional Limits Strength Lower Extremity Strength Assessment Bilaterally Impaired Hip 4-/5 Knee 4/5 Ankle 4-/5 Coordination Assessment Gross Coordination Gross Coordination WNL Sensation Assessment Sensation Gross Sensation Right LE Impaired,Left LE Impaired Comments Sensation Comments Diabetic neuropathy affecting bilateral lower legs in gaiter distribution. Pt reports extremely dull sensation especially in dorsal and plantar feet. Muscle Tone Muscle Tone WNL No M6 PT-IP Treatment Start: 01/07/20 08:29 Freq: NEEDED Status: Active Protocol: Document 01/09/20 09:33 AB (Rec: 01/09/20 13:23 AB [id number]) Physical Therapy Treatment Education Education Provided Precautions,Safety M7 PT-IP Assessment and Plan Start: 01/07/20 08:29 Freq: NEEDED Status: Active Protocol: Document 01/09/20 09:33 AB (Rec: 01/09/20 13:23 AB [id number]) PT Summary Assessment and Plan Potential Rehabilitation Potential Good Summary Impairments Pain,ROM,Strength,Balance, Coordination,Sensation,Tone, Cognition,Bed Mobility, Transfers,Gait,Activity Tolerance Progress Towards Goals Slow Progress due to Pain Assessment Summary pt requiring min A with mobility and will need assistance at home. pt lives alone and stated that he has friend/neighbors that's lined up to assist him. d/c plan depending on progress. will continue to assess progress. Goals Bed Mobility Goal Independent Transfer Goal Independent,Front Wheeled Walker Gait Goal Independent,Front Wheel Walker Gait Distance 250 Other Goals - up/down 2 steps with SPC Days to Meet Goals 3 Frequency of Treatment Frequency Of Treatment Twice a Day Treatment Plan Physical Therapy Treatment Plan Bed Mobility Training,Transfer Training,Gait Training, Therapeutic Exercise,Balance Retraining,Post Op Education, Discharge Planning,Hot or Cold Pack,Neuromuscular Re-ed, Coordination Retraining,Manual Therapy Other Recommendations and Next Treatment Continual review of spinal Focus precautions. Recommendations To Nursing Amount of Assist Needed 1 Person Assist Discharge Recommendations PT Discharge Recommendations Home with Assistance,Home Health
--- NOTE | 2020-01-09 14:04 | PT.IPTN ---
Current Diagnoses Other spondylosis with radiculopathy, lumbosacral region (01/06/20) Spinal stenosis, lumbar region without neurogenic claudication (01/06/20) Arthrodesis status (01/06/20) Surgery Performed Operation Date: 01/06/20 07:45 Actual Procedures p L2-3, L5-S1 TLIf, L3-5 HWR, L2-S1 PSF instrumentation - Lashonda Cain MD Physical Therapy Treatment Note M2 PT-IP Current Condition Start: 01/07/20 08:29 Freq: NEEDED Status: Active Protocol: Document 01/08/20 14:26 NFW (Rec: 01/08/20 15:11 NFW [id number]) Physical Therapy Current Condition Precautions Lumbar Precautions Log Roll,No Twisting,Limit Bending,Lifting Restriction of 10 lbs,Gait Belt above Incisional Area Weight Bearing Status Weight Bearing Status Full Weight Bearing M3 PT-IP Subjective Start: 01/07/20 08:29 Freq: NEEDED Status: Active Protocol: Document 01/09/20 13:34 KS (Rec: 01/09/20 15:39 KS [id number]) Subjective Physical Therapy Visit Type Type Treatment Note Visit Start Time 13:34 Visit Stop Time 14:04 Total Visit Minutes 30 Number of BODY SERVICE TEAM MEMBER Visits 1 Physical Therapy Visit Comments Patient Comments pt agreeable to do PT Therapy Pain Assessment Pain When Pain Assessed At Rest Pain Present Pain Present Pain Reported M4 PT-IP Mobility and Gait Start: 01/07/20 08:29 Freq: NEEDED Status: Active Protocol: Document 01/09/20 13:34 KS (Rec: 01/09/20 15:39 KS [id number]) PT-Bed Mobility Assessment Rolling Type of Rolling Log Rolling Level of Assist Standby Assistance Supine to Sit Supine to Sit Standby Assistance Scooting Scooting to Edge of Bed Standby Assistance PT-Transfer Assessment Sit to and From Stand Sit to and from Stand Contact Guard Assistance,1 Person Assistance,Use of Upper Extremities Equipment Transfer Assistive Device Gait Belt,Front Wheeled Walker Orthotic/Prosthetic Devices or Brace: No Transfers Transfer Destination Chair Transfer Technique ambulated using FWW Transfer Ability Level of Assist Contact Guard Assistance,1 Person Assistance,Use of Upper Extremities Comments Mobility Comments Pt in bed upon arrival from therapy and willing to participate. Pts BP sup:116/61 . Pt performed logroll to R side SBA needing cues to roll fully on side to avoid twisting. SBA for sidelying<> sit EOB. Pt then stoof w/ FWW and ambulated to toilet, after using bathroom pts BP was 127 /63 in standing. PT then ambulated ~[address] and reported slight dizziness and needed 1 min standing rest break, but then stated dizziness had gone away. Pt demonstrated proper use of FWW and was CGA during ambulation . Pt ambulated slow w/ decreased stride length. Pt returned to room and sat EOB CGA, pt then had visitor arrive and stood back up from bed CGA and transfered to chair w/ FWW, stand<>sit CGA w / cues to reach back for chair and slowly lower down. Pt left in room w/ all needs in reach. Gait Assessment Gait Gait Assistance Required: Contact Guard Assist,1 Person Assist Distance (Feet) 80 Able to Maintain Weight Bearing Status Yes During Gait Assistive Devices Assistive Device Gait Belt,Front Wheeled Walker Orthotic/Prosthetic Devices or Brace: No Gait Deviations General Gait Pattern Antalgic,Decreased Stride Length,Decreased Feet Clearance Factors Limiting Gait Function Factors Limiting Gait Function Decreased Activity Tolerance, Decreased Strength,Difficulty Following Directions,Limited Range of Motion,Pain,Poor Balance,Poor Safety Awareness Comments Gait Comments Please refer to mobility section for details. Stair Climbing Assessment Comments Stair Climbing Comments Not assessed. PT-Balance Assessment Sitting Balance and Reactions Static Sitting Balance Ability Good Dynamic Sitting Balance Ability Good Standing Balance and Reactions Static Standing Balance Ability Fair Dynamic Standing Balance Ability Fair Device Used FWW M5 PT-IP Objective Assessments Start: 01/07/20 08:29 Freq: NEEDED Status: Active Protocol: Document 01/07/20 10:55 AW (Rec: 01/07/20 11:25 AW [id number]) Orientation Orientation/Cognition Level of Alertness Alert Orientation Name,Day of Week,Place, Situation Language Function Ability No Deficits Noted Safety Awareness Decreased Safety Awareness Memory Description Short Term Impaired Comments Pt unable to recall all of his back precautions in spite of previous spine surgery and reminders of same. Recommend possible cognitive testing Gross Range of Motion Lower Extremity ROM Assessment Within Functional Limits Strength Lower Extremity Strength Assessment Bilaterally Impaired Hip 4-/5 Knee 4/5 Ankle 4-/5 Coordination Assessment Gross Coordination Gross Coordination WNL Sensation Assessment Sensation Gross Sensation Right LE Impaired,Left LE Impaired Comments Sensation Comments Diabetic neuropathy affecting bilateral lower legs in gaiter distribution. Pt reports extremely dull sensation especially in dorsal and plantar feet. Muscle Tone Muscle Tone WNL No M6 PT-IP Treatment Start: 01/07/20 08:29 Freq: NEEDED Status: Active Protocol: Document 01/09/20 13:34 KS (Rec: 01/09/20 15:39 KS [id number]) Physical Therapy Treatment Education Education Provided Precautions,Safety M7 PT-IP Assessment and Plan Start: 01/07/20 08:29 Freq: NEEDED Status: Active Protocol: Document 01/09/20 13:34 KS (Rec: 01/09/20 15:39 KS [id number]) PT Summary Assessment and Plan Potential Rehabilitation Potential Good Summary Impairments Pain,ROM,Strength,Balance, Coordination,Sensation,Tone, Cognition,Bed Mobility, Transfers,Gait,Activity Tolerance Assessment Summary Pt is SBA to CGA for bed mobility and min cues for proper log roll. CGA for sit<> stand and ambulation w/ FWW. Pts BP stable, but reported slight dizziness after ~60 ft ambulation, which subside after 1 min standing rest break. Did not assess stairs today d/t pts reported dizziness. Goals Bed Mobility Goal Independent Transfer Goal Independent,Front Wheeled Walker Gait Goal Independent,Front Wheel Walker Gait Distance 250 Other Goals - up/down 2 steps with SPC Days to Meet Goals 3 Frequency of Treatment Frequency Of Treatment Twice a Day Treatment Plan Physical Therapy Treatment Plan Bed Mobility Training,Transfer Training,Gait Training, Therapeutic Exercise,Balance Retraining,Post Op Education, Discharge Planning,Hot or Cold Pack,Neuromuscular Re-ed, Coordination Retraining,Manual Therapy Other Recommendations and Next Treatment Continual review of spinal Focus precautions, further ambulation, stair traning. Recommendations To Nursing Amount of Assist Needed 1 Person Assist Discharge Recommendations PT Discharge Recommendations Home with Assistance,Home Health
--- NOTE | 2020-01-09 14:52 | OT.IP.TRT ---
Current Diagnoses Other spondylosis with radiculopathy, lumbosacral region (01/06/20) Spinal stenosis, lumbar region without neurogenic claudication (01/06/20) Arthrodesis status (01/06/20) Surgery Performed Operation Date: 01/06/20 07:45 Actual Procedures p L2-3, L5-S1 TLIf, L3-5 HWR, L2-S1 PSF instrumentation - Lashonda Cain MD Occupational Therapy Treatment Note M2 OT-IP Current Condition Start: 01/07/20 14:35 Freq: Status: Active Protocol: Document 01/07/20 14:00 PJM (Rec: 01/07/20 15:14 PJM [id number]) Occupational Therapy Current Condition Current Condition Evaluation Date 01/07/20 Treatment Diagnosis decreased self care, mobility s/p L3-5 lami's with PLIF Diagnosis Onset Date 01/06/20 Post Operative Precautions Lumbar Precautions Log Roll,No Twisting,Limit Bending,Lifting Restriction of 10 lbs,Gait Belt above Incisional Area Other Precautions monitor orthostatics, pt hypotensive 01/07/20 EOB 93/55 HR 81 EOB 5 min- 105/50 HR 79 EOB 12 min-87/44 HR 81 standing- 78/41 HR 103 M3 OT- IP Subjective and Pain Start: 01/07/20 14:35 Freq: Status: Active Protocol: Document 01/09/20 18:02 CGR (Rec: 01/09/20 18:09 CGR [id number]) OT- Subjective Occupational Therapy Visit Type Type Treatment Note Visit Start Time 11:40 Visit Stop Time 11:51 Total Visit Minutes 30 Notes Second treatment [id number] OT Pain Assessment Pain When Pain Assessed During Mobility Pain Present Pain Present Denied Pain M4 OT- IP ADL's Start: 01/07/20 14:35 Freq: Status: Active Protocol: Document 01/09/20 18:02 CGR (Rec: 01/09/20 18:09 CGR [id number]) OT [id number] Comments OT Self-Feeding Comments Not meal time OT ADL-Grooming General Evaluation Grooming Ability Standby Assistance Areas Needing Assistance Combing/Brushing Hair,Face Washing Comments OT Grooming Comments In first session pt performed seated in bed OT ADL-Oral Care General Eval Oral Care Ability Standby Assistance Areas of Assistance Brushing Teeth,Retrieving/Set- Up of Items Comments Oral Care Comments In first session pt performed seated in bed OT ADL-Dressing General Eval Lower Body Dressing Ability Minimal Assistance Areas Needing Assistance Socks Comments OT Dressing Comments Pt needed mod VC for use of equipment to perform LB dressing OT ADL-Toileting General Evaluation Toileting Ability Standby Assistance Devices Toileting Assistive Devices Grab Bars,Raised Toilet Seat OT ADL-Bathing Comments OT Bathing Comments Not performed in this session. M5 OT- IP IADL's Start: 01/07/20 14:35 Freq: Status: Active Protocol: Document 01/07/20 14:00 PJM (Rec: 01/07/20 15:14 [facility] [id number]) OT-Instrumental Activities of Daily Living Deficits IADL Deficits Identified Deficits Home Safety Awareness Awareness of Need for Assistance at Home Decreased Awareness Home Safety Comments Pt has significant short term memory deficits that could interfere with home safety and driving. Medication Management Medication Management Comments Pt states meds are bubble packed. Recommend close supervision for any post op pain medications. Discussed with Alan Money Management Money Management Comments Pt states he has his bills paid automatically. Recommend supervision Meal Preparation Meal Preparation Comments Pt states he does not use microwave often. Provided education re: use of timer to remind pt to shit stove off. Recommend home health OT followup for further safety assessment. 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 M6 OT- IP Functional Cognition Start: 01/07/20 14:35 Freq: Status: Active Protocol: Document 01/07/20 14:00 PJ (Rec: 01/07/20 15:14 [facility] [id number]) Cognitive Factors Limiting Selfcare Function Cognitive Ability Level of Alertness Alert Patient Orientation Name,Month,Year,Place, Situation Attention Span Ability Capable of Focused Attention, Capable of Sustained Attention Ability to Follow Commands Able to Follow One Step Commands Memory Description Short Term Impaired Safety Awareness Decreased Recall of Precautions,Decreased Ability to Apply Precautions, Underestimates Need for Assistance Problem Solving Ability Unable to Identify Errors, Needs Assist to Identify Solutions Executive Function Ability Unable to Remember Details Cognitive Comments Cognitive Assessment Comments Pt has significant short term memory deficits and unable to recall lumbar precautions despite previous education by P.T. Posted several large signs in room to remind pt of precautions including one on bedside table. OT- Vision and Hearing OT- Hearing Assessment OT- Hearing Assessment WFL OT- Vision Assessment Visual Acuity WFL,Glasses For Reading Vision Assessment Comments Pt states he lost his prescription glasses and now is using reading glasses only. M7 OT- IP Mobility and Balance Start: 01/07/20 14:35 Freq: Status: Active Protocol: Document 01/09/20 18:02 CGR (Rec: 01/09/20 18:09 CGR [id number]) OT- Bed Mobility Assessment Rolling Type of Rolling Roll to Left Level of Assistance Standby Assistance Sit to Supine Sit to Supine Assist Standby Assistance Scooting Scooting Up and Down in Bed Standby Assistance OT-Transfer Assessment Sit to and From Stand Sit to and from Stand Standby Assistance Transfers Transfer Ability Standby Assistance Technique Transfer Destination Bed,Chair Transfer Technique Stand Step Pivot Devices Transfer Assistive Devices Gait Belt,Front Wheeled Walker OT- Balance Assessment Sitting Balance and Reactions Static Sitting Balance Ability Good Dynamic Sitting Balance Ability Fair M8 OT- IP Objective Assessments Start: 01/07/20 14:35 Freq: Status: Active Protocol: Document 01/07/20 14:00 PJM (Rec: 01/07/20 15:14 PJM [id number]) OT Gross Range of Motion Upper Extremity Range of Motion Assessment Within Functional Limits OT Strength Upper Extremity Strength Assessment Within Functional Limits OT- Coordination Assessment Comments Coordination Comments Pt has hx of B carpal tunnel syndrome and normally wears leather L wrist cock up splint . Pt unable to wear it at present due to IV in dorsum of hand. Pt has sensory deficits in thumb, index, middle fingers of both hands which interferes with fine dexterity . OT-Muscle Tone Assessment Muscle Tone WNL Yes OT Sensation Assessment Comments Summary Comments Median nerve distribution numbness in fingertips of B hands. Edema Edema Absent M9 OT- IP Assessment and Plan Start: 01/07/20 14:35 Freq: Status: Active Protocol: Document 01/09/20 18:02 CGR (Rec: 01/09/20 18:09 CGR [id number]) OT Summary Assessment and Plan Potential Rehabilitation Potential Good Analytic Complexity at Evaluation Low Summary OT Impairments Balance,Functional Cognition, Functional Mobility,Grooming, Dressing,Toileting,Bathing, Toilet Transfers,Shower Transfers,Activity Tolerance Progress Towards Goals Slow Progress due to Cognition Assessment Summary Pt is s/p back sx with hx of STM deficits. Pt is able to recall 1/3 back precautions when asked wtihout looking at his sheet. Pt needed mod VC to use dressing equipment for LB dressing. Pt appears to have fair safety awareness but poor recall of precautions. Pt will benefit from continued OT services as repetition is likely to assist with his ability to recall precautions and use of equipment. Goals Grooming Goal Independent Dressing Goal Independent,Long Handled Shoe Horn,Plant Operator Helper,Sock Aid Toileting Goal Independent Bathing Goal Standby Assistance,Long Handled Sponge or Mullan Toilet Transfer Goal Independent,ADA High Toilet Shower Transfer Goal Standby Assistance,Tub/Shower Combination,Shower Chair Patient/Caregiver Education Goal Demonstrate Post-Op Precautions,Demonstrate Energy Conservation and Pacing, Caregiver Independent Assisting Patient OT-Other Goals Grooming to be done standing at sink with good body mechanics and safety awareness . Days to Meet Goals 5 Frequency of Treatment Frequency Of Treatment Once a Day Treatment Plan OT Treatment Plan ADL Training,Functional Cognition Training,Functional Mobility,Patient/Family Education,Discharge Planning Other Treatment Recommendations and Next shower Treatment Focus Discharge Recommendations OT Discharge Recommendations SNF Rehab Other Discharge Recommendations vs home with HH OT/PT and assist from neighbors pending progress here Home Equipment Needs shower seat Transportation Needs at Discharge Wheelchair/Cabulance
--- NOTE | 2020-01-09 15:31 | PC.NURSE ---
Addendum entered by Franchesca Jose R.N. 01/09/20 15:36: entered note on wrong patient; disregard Original Note: Patient BP in the low 100s; per discussion w/ and patient--MS contin is a new prescription which he filled just prior to being admitted. MD notified and MS contin Decreased to 15mg TID- see new orders. Also per MD hold Metoprolol for SBP<100. Discussed with oncoming RN. Patient remains on 2 L NC and has brought patiet's CPAP now in room.
--- NOTE | 2020-01-09 15:55 | CM.DPNOTE ---
DCP continued: CM/RN met with patient and disscussed HH as an option for going home patient stated he would be open to HH services and CM/Rn gave patient the medicaid preferred list to review. Patient chose [facility]. CM/RN called and left message for [facility] and faxed clinicals for them to review. Face to face is needed. [place] RN
[2020-01-09] MEDS: TAMSULOSIN 0.4 MG CAPSULE 0.8 MG PO (16:15)
[2020-01-09] MEDS: SENNOSIDES 8.6 MG TABLET 17.2 MG PO (21:25)
--- NOTE | 2020-01-09 23:19 | PC.NURSE ---
EVENING SHIFT Report received, care assumed. Pt. answers all orientation questions appropriately; however, he does make strange statement (ie, asking if his eye color has changed, insisting that another patient's visitor is his friend Jb); I can't determine whether he's trying to be funny or whether he's confused. Sometimes c/o pain, has difficult rating the pain. Got OOB to bathroom but declined to sit up in chair. Has dressing covering incision(s) of lower back. Significant bruising, firm to touch, around dressing. Refused SCD's throughout shift. Education provided.
[2020-01-10] MEDS: OXYCODONE IR 10 MG TABLET PO (03:06)
[2020-01-10 04:10] VITALS: BP 136/70; PULSE 68; RESP 16; TEMP 36.9; O2SAT 96
[2020-01-10 05:45] LABS: Hematocrit 26.8 % (41-53); Hemoglobin 9.4 g/dL (13.5-17.5)
[2020-01-10] MEDS: OXYCODONE IR 5 MG TABLET PO ×2 (06:25→13:35)
[2020-01-10] MEDS: ISOSORBIDE MONONITRATE ER 30 MG TABLET PO (06:26)
[2020-01-10 07:26] VITALS: BP 180/92; PULSE 66; RESP 16; TEMP 37; O2SAT 96
[2020-01-10 08:00] VITALS: BP 149/78; PULSE 66; TEMP 37.1
--- NOTE | 2020-01-10 08:25 | P.DS_ITS ---
History of Present Illness History of Present Illness Date Patient Seen: 01/10/20 Time Patient Seen: 08:25 Chief complaint: Translaminar Interbody Fusion/Laminotomy Narrative: Postop day 4 L2-3, L5-S1 TLIf, L3-5 HWR, L2-S1 PSF instrumentation with Dr. Cain. Patient had transfusion 2 units red cells for postoperative acute blood loss anemia. Stabilized on the floor. Work with physical therapy. Cleared for home discharge with home health. Feeling well today. Vital signs stable. Pain control Discharge Providers Provider Date of admission: 01/06/20 06:15 Discharge Date: 01/10/20 Primary care physician: Cesar Bar DO Consults: 01/06/20 16:26 Consult to Occupational Therapy Evaluate & Treat Comment: Physician Instructions: Evaluate and treat Consult to Physical Therapy Evaluate & Treat Comment: Physician Instructions: Evaluate and Treat 01/10/20 08:24 Consult to Home Health Routine Comment: Reason For Exam: Home health PT OT status post spine surgery. Discharge provider: Corrina Rowan MD Summary Hospital Course Discharge Diagnosis: Chronic back pain s/p L2-3, L5-S1 TLIf, L3-5 HWR, L2-S1 PSF instrumentation Acute blood loss anemia Hospital Course: Patient was admitted to the hospital postoperatively. On postop day 1 he had acute blood loss anemia he received 2 units of transfused cells. His hemoglobin increased appropriately for the transfusion. Pain was controlled on oral medications. Was able to ambulate with physical therapy. Vital signs were stable. Pain was controlled tolerating oral diet and worked well with physical therapy before discharge. Was cleared for home [facility] on postoperative day 4. Status at Discharge Cognitive/behavioral status at discharge: oriented Functional status at discharge: uses cane/walker Overall status at discharge: patient is progressing back to baseline Time Spent with Patient Time spent: Less than 30 minutes Time spent discussing smoking cessation with patient: 3 to 10 minutes Exam Vital Signs (past 8 hours): - 01/10/20 04:10 01/10/20 07:26 01/10/20 08:00 Temperature 98.5 F 98.6 F 98.7 F Pulse Rate 68 66 66 Respiratory Rate 16 16 Blood Pressure 136/70 180/92 H 149/78 H Pulse Oximetry 96 96 Oxygen Delivery Method Room Air Oxygen Flow Rate 0 Narrative Exam Narrative: Alert oriented male in no acute distress. Sitting up in bed eating breakfast Respiratory breathing unlabored on room air Cardiac exam regular rate rhythm Musculoskeletal exam moving all extremities. 5/5 dorsiflexion plantar flexion. Calf soft. Sensation grossly intact. Lumbar incisions with clean and dry dressings. Mild ecchymosis lumbar. No redness Objective Labs Result Diagrams: 01/10/20 05:35 Labs: Laboratory Results - last 24 hr 01/10/20 05:35 Hgb 9.4 L Hct 26.8 L Discharge Plan Discharge Plan Patient Disposition: Home Health Service Discharge orders & Medications Prescriptions: New acetaminophen 325 mg Tablet 975 mg PO TID Qty: 40 RF: 0 docusate sodium [DOK] 100 mg Capsule 100 mg PO BID Qty: 40 RF: 0 hydroxyzine pamoate 25 mg Capsule 25 mg PO Q4HR PRN (Reason: Nausea And Vomiting) Qty: 20 RF: 0 oxycodone 10 mg tablet 10 mg PO Q4H PRN (Reason: pain) Qty: 42 RF: 0 Continued gabapentin 600 mg tablet See Rx Instructions .ROUTE .COMPLEX Qty: 180 RF: 1 amlodipine 10 mg tablet See Rx Instructions .ROUTE .COMPLEX Qty: 90 RF: 1 glipizide 5 mg tablet See Rx Instructions .ROUTE .COMPLEX Qty: 90 RF: 1 isosorbide mononitrate 60 mg tablet extended release 24 hr See Rx Instructions .ROUTE .COMPLEX Qty: 90 RF: 1 oxybutynin chloride 15 mg tablet extended release 24hr See Rx Instructions .ROUTE .COMPLEX Qty: 90 RF: 1 duloxetine 30 mg capsule,delayed release(DR/EC) See Rx Instructions .ROUTE .COMPLEX Qty: 90 RF: 1 atorvastatin 20 mg tablet 20 mg PO DAILY RF: 0 Glucose: Test Strips 1 strip miscellaneous DIRECTED RF: 0 metoprolol succinate 100 mg tablet extended release 24 hr 50 mg PO BID RF: 0 tamsulosin 0.4 mg capsule 0.8 mg PO QPM RF: 0 Discontinued aspirin 81 MG tablet,delayed release (DR/EC) 81 mg PO DAILY Qty: 0 RF: 0 Follow up/Referrals: Lashonda Cain MD [Physician] - Diet/Activity/Treatments Diet: Diet as Tolerated Activity: No bending, lifting, or twisting. Cold/Heat Therapy: Ice packs as needed. Skin/Wound/Dressing Care Report to your healthcare provider any signs of infection, such as:: chills, fever, night sweats, unusual drainage and unusual redness Dressing: Dressing is to remain in place until your 2 week postop visit. Please call the office if this becomes saturated or soiled. Visit Report/Discharge Packet Instructions: DI for Transforaminal Lumbar Interbody Fusion Discharge Data Primary Care Provider: Cesar Bar VTE Deep Vein Thrombosis/Pulmonary Embolism Present on Admission: No
[2020-01-10] MEDS: DULOXETINE 30 MG CAPSULE PO (09:41)
[2020-01-10] MEDS: METOPROLOL ER 50 MG TABLET PO (09:41)
[2020-01-10] MEDS: ACETAMINOPHEN 325 MG TABLET 975 MG PO (09:42)
[2020-01-10] MEDS: OXYBUTYNIN 5 MG ER TAB PO (09:42)
[2020-01-10] MEDS: AMLODIPINE 5 MG TABLET PO (09:42)
[2020-01-10] MEDS: glipiZIDE 5 MG TABLET 2.5 MG PO (09:42)
[2020-01-10] MEDS: ATORVASTATIN 20 MG TABLET PO (09:42)
[2020-01-10] MEDS: GABAPENTIN 600 MG TABLET 1800 MG PO (09:42)
--- NOTE | 2020-01-10 10:07 | CM.DPC ---
DCP cONT: Patient is to be discharged home today, with [facility]. Called [facility] and let them know that discharge was happening today, H&P was already sent. Let them know that patient would need P.T/O.T. Faxed face sheet, face to face, orders, and DC summary to [facility]. P: Patient is discharging home with [facility]. Miranda Hirsch RN/Customer Solutions Architect
--- NOTE | 2020-01-10 11:30 | PT.IPTN ---
Current Diagnoses Other spondylosis with radiculopathy, lumbosacral region (01/06/20) Spinal stenosis, lumbar region without neurogenic claudication (01/06/20) Arthrodesis status (01/06/20) Surgery Performed Operation Date: 01/06/20 07:45 Actual Procedures p L2-3, L5-S1 TLIf, L3-5 HWR, L2-S1 PSF instrumentation - Lashonda Cain MD Physical Therapy Treatment Note M2 PT-IP Current Condition Start: 01/07/20 08:29 Freq: NEEDED Status: Active Protocol: Document 01/08/20 14:26 NFW (Rec: 01/08/20 15:11 NFW [id number]) Physical Therapy Current Condition Precautions Lumbar Precautions Log Roll,No Twisting,Limit Bending,Lifting Restriction of 10 lbs,Gait Belt above Incisional Area Weight Bearing Status Weight Bearing Status Full Weight Bearing M3 PT-IP Subjective Start: 01/07/20 08:29 Freq: NEEDED Status: Active Protocol: Document 01/10/20 11:52 AW (Rec: 01/10/20 12:05 AW [id number]) Subjective Physical Therapy Visit Type Type Treatment Note Visit Start Time 09:58 Visit Stop Time 10:22 Total Visit Minutes 24 Number of COAT PADDER Visits 0 Physical Therapy Visit Comments Patient Comments Pt willing to participate with PT Therapy Pain Assessment Pain When Pain Assessed During Mobility Pain Present Pain Present Pain Reported Location back Intensity 5 Scale Used Numeric (1 - 10) M4 PT-IP Mobility and Gait Start: 01/07/20 08:29 Freq: NEEDED Status: Active Protocol: Document 01/10/20 11:52 AW (Rec: 01/10/20 12:05 AW [id number]) PT-Bed Mobility Assessment Rolling Type of Rolling Roll to Left Level of Assist Standby Assistance Supine to Sit Supine to Sit Standby Assistance Scooting Scooting to Edge of Bed Standby Assistance PT-Transfer Assessment Sit to and From Stand Sit to and from Stand Standby Assistance,Use of Upper Extremities Equipment Transfer Assistive Device Gait Belt,Front Wheeled Walker Orthotic/Prosthetic Devices or Brace: No Transfers Transfer Destination Bed Transfer Technique Stand Step Pivot Transfer Ability Level of Assist Standby Assistance,Use of Upper Extremities Comments Mobility Comments Pt sitting up in bed upon PT arrival. He completed supine to sit SBA with good sequencing and good attention to spinal precautions. After gait training, pt returned to bed SBA Gait Assessment Gait Gait Assistance Required: Standby Assistance Distance (Feet) 210 Able to Maintain Weight Bearing Status Yes During Gait Assistive Devices Assistive Device Gait Belt,Front Wheeled Walker Orthotic/Prosthetic Devices or Brace: No Gait Deviations General Gait Pattern Antalgic,Decreased Stride Length,Decreased Feet Clearance Factors Limiting Gait Function Factors Limiting Gait Function Decreased Activity Tolerance, Decreased Strength,Difficulty Following Directions,Limited Range of Motion,Pain,Poor Balance,Poor Safety Awareness Comments Gait Comments Pt ambulated in the halls with FWW and no need for reminders to avoid twisting, requiring no more than SBA Stair Climbing Assessment Evaluation Level of Assist On Stairs Standby Assistance,Contact Guard Assistance Devices Stair Climbing Assistive Devices Left Railing Technique/Endurance Stair Climbing Direction Ascend and Descend Stair Climbing Technique Step to Step Number of Steps Climbed 3 Stair Climbing Set # Repetitions (reps) 2 Comments Stair Climbing Comments Pt navigated stairs using light touch on left rail ascending to mimic home environment. Cued pt for leading with stronger leg (L) ascending and weaker leg descending. M5 PT-IP Objective Assessments Start: 01/07/20 08:29 Freq: NEEDED Status: Active Protocol: Document 01/07/20 10:55 AW (Rec: 01/07/20 11:25 AW [id number]) Orientation Orientation/Cognition Level of Alertness Alert Orientation Name,Day of Week,Place, Situation Language Function Ability No Deficits Noted Safety Awareness Decreased Safety Awareness Memory Description Short Term Impaired Comments Pt unable to recall all of his back precautions in spite of previous spine surgery and reminders of same. Recommend possible cognitive testing Gross Range of Motion Lower Extremity ROM Assessment Within Functional Limits Strength Lower Extremity Strength Assessment Bilaterally Impaired Hip 4-/5 Knee 4/5 Ankle 4-/5 Coordination Assessment Gross Coordination Gross Coordination WNL Sensation Assessment Sensation Gross Sensation Right LE Impaired,Left LE Impaired Comments Sensation Comments Diabetic neuropathy affecting bilateral lower legs in gaiter distribution. Pt reports extremely dull sensation especially in dorsal and plantar feet. Muscle Tone Muscle Tone WNL No M6 PT-IP Treatment Start: 01/07/20 08:29 Freq: NEEDED Status: Active Protocol: Document 01/10/20 11:52 AW (Rec: 01/10/20 12:05 AW [id number]) Physical Therapy Treatment Education Education Provided Precautions,Safety Other Treatments Other Treatment Performed Pt able to recall all spinal precautions today. M7 PT-IP Assessment and Plan Start: 01/07/20 08:29 Freq: NEEDED Status: Active Protocol: Document 01/10/20 11:52 AW (Rec: 01/10/20 12:05 AW [id number]) PT Summary Assessment and Plan Potential Rehabilitation Potential Good Status of Condition at Evaluation Stable Summary Impairments Pain,ROM,Strength,Balance, Coordination,Sensation,Tone, Cognition,Bed Mobility, Transfers,Gait,Activity Tolerance Progress Towards Goals Progressing Toward Goals Assessment Summary Pt was SBA for all mobilities and able to recall all spinal precautions without external cues this date. Goals Bed Mobility Goal Independent Transfer Goal Independent,Front Wheeled Walker Gait Goal Independent,Front Wheel Walker Gait Distance 250 Other Goals - up/down 2 steps with SPC Days to Meet Goals 1 Frequency of Treatment Frequency Of Treatment Twice a Day Treatment Plan Physical Therapy Treatment Plan Bed Mobility Training,Transfer Training,Gait Training, Therapeutic Exercise,Balance Retraining,Post Op Education, Discharge Planning,Hot or Cold Pack,Neuromuscular Re-ed, Coordination Retraining,Manual Therapy Other Recommendations and Next Treatment Continual review of spinal Focus precautions, further ambulation, stair traning. Recommendations To Nursing Amount of Assist Needed Standby Assistance Discharge Recommendations PT Discharge Recommendations Home with Assistance,Home Health
[2020-01-10 12:00] VITALS: BP 157/82; PULSE 71; TEMP 37.2
--- NOTE | 2020-01-10 14:28 | PC.NURSE ---
Discharge Pt states pain controlled with oxy and tylenol this shift. up with SBA. Some issues remembering spinal precautions but able to move with FWW. Dressing was clean and dry but reinforced to make intact. PIV removed without issue. D/c instructions provided to pt and friends who came to pick him up. Discussion with SW and provided pt senior resources book. Pt aware to contact Dr Cain with any additional questions as well as for f/u apt. left in w/c with [employer] escort and states he took all belongings with him.
--- NOTE | 2020-01-13 15:28 | CM.DPC ---
DCP Cont: Received a call from Renetta at [facility] stating that she had received a signed F2F Encounter form dated 01/07/20 but she did not have any visit notes to match that date. She asked that I fax the 01/07/20 progress note to her at fax # [phone]. Progress note faxed and confirmation scanned in. Janis Mendoza, Care Client Server Developer
== END 2020-01-10 13:55 | disposition home health service (06) | DRG 454 ==
PROVIDERS: Physician Assistant; Physician Assistant Medical; Physician Assistant Surgical; Admitting Provider Orthopaedic Surgery Orthopaedic Surgery of the Spine; PCP Family Medicine; Referring Provider Orthopaedic Surgery Orthopaedic Surgery of the Spine; Visit Provider Orthopaedic Surgery Orthopaedic Surgery of the Spine
PROC: 0SG00AJ Fusion of Lumbar Vertebral Joint with Interbody Fusion Device, Posterior Approach, Anterior Column, Open Approach (ICD-10-PCS; principal; 2020-01-06 07:45)
DX: M47.27 Other spondylosis with radiculopathy, lumbosacral region (principal); M96.0 Pseudarthrosis after fusion or arthrodesis; D62 Acute posthemorrhagic anemia; I95.9 Hypotension, unspecified; M48.061 Spinal stenosis, lumbar region without neurogenic claudication; I25.10 Atherosclerotic heart disease of native coronary artery without angina pectoris; E11.9 Type 2 diabetes mellitus without complications; E78.5 Hyperlipidemia, unspecified; I35.0 Nonrheumatic aortic (valve) stenosis; Z87.891 Personal history of nicotine dependence; Z79.84 Long term (current) use of oral hypoglycemic drugs; Z98.1 Arthrodesis status
CPT/HCPCS: 36415; 36430; 72100; 76000; 82962; 85014; 85018; 86850; 86900; 86901; 94760; 97116; 97161; 97165; 97530; 97535; C1776; P9016; C9290; J0131; J0330; J0690; J1170; J2704; J3010

== ENCOUNTER 2020-02-10 17:32 | Emergency (ER) | payer MEDICARE, OTHER, SELFPAY ==
[2020-01-06 18:24] VITALS: BMI 23.6
[2020-02-10 17:41] VITALS: BP 144/70; PULSE 66; RESP 17; TEMP 36.5; O2SAT 99; BMI 23.6
[2020-02-10 18:06] VITALS: BP 130/65; PULSE 70; RESP 18; O2SAT 97
--- NOTE | 2020-02-10 18:06 | ED.MALEGU ---
HPI - Male Genitourinary <CAROLA Velázquez - Last Filed: 02/10/20 20:51> General Chief complaint: Urogenital-Male Stated complaint: thinks blocked kidney Time Seen by Provider: 02/10/20 17:42 Source: patient Mode of arrival: Wheelchair Limitations: no limitations History of Present Illness HPI Narrative: This is a 69-year-old male, former smoker, who presents to ED with chief complain of blocked kidney. Patient reports 10/10 right flank pain for last 2 days and no urine output after he voided once when he woke up this morning. Patient reports at that time his urine looked clear yellow without hematuria. Patient reports he is unable to find comfortable position and pain aggravates with standing and sitting. Patient reports pain was so severe that he could barely walk coming into ED. Patient has been hydrating well and had drank about 64 oz of water and 4 cups of coffee. Patient denies fever and chills but felt nauseous and vomited once before coming into ED. Patient reports decreased appetite today. Patient's sees at [facility] urology clinic for urinary dribbles but denies known BPH. Patient also states he had lumbar fusion surgery done in 01/06/20 by due to severe lumbar arthritis. Patient had follow-up after back surgery about 2 weeks ago. Patient reports he had postsurgical swelling on the right side lumbar region and according to Dr. Bar's report the patient informed some dark fluid has drained by surgeon and he felt better. Patient has been taking Advil for discomfort after he had dental procedure done for dental abscess. Related Data Home Medications Medication Instructions Recorded Confirmed Glucose: Test Strips 1 strip MISCELLANEOUS DIRECTED 04/29/18 02/10/20 atorvastatin 20 mg tablet 20 mg PO DAILY 04/03/19 02/10/20 metoprolol succinate 100 mg 50 mg PO BID tab 04/03/19 02/10/20 tablet,extended release 24 hr tamsulosin 0.8 mg PO QPM 12/23/19 02/10/20 Previous Rx's Medication Instructions Recorded amlodipine 10 mg tablet See Rx Instructions .ROUTE 12/07/19 .COMPLEX #90 tablet duloxetine 30 mg capsule,delayed See Rx Instructions .ROUTE 12/07/19 release .COMPLEX #90 cap glipizide 5 mg tablet See Rx Instructions .ROUTE 12/07/19 .COMPLEX #90 tablet isosorbide mononitrate 60 mg See Rx Instructions .ROUTE 12/07/19 tablet,extended release 24 hr .COMPLEX #90 tablet oxybutynin chloride 15 mg See Rx Instructions .ROUTE 12/07/19 tablet,extended release 24 hr .COMPLEX #90 tablet acetaminophen 975 mg PO TID #40 tab 01/08/20 acetaminophen 500 mg PO Q6H PRN #30 cap 01/10/20 hydroxyzine pamoate 25 mg PO Q4HR PRN #20 cap 01/10/20 gabapentin 600 mg tablet See Rx Instructions .ROUTE 02/08/20 .COMPLEX #180 tablet lidocaine 1 patch TOP DAILY #30 each 02/10/20 tramadol 50 mg PO BID PRN #7 tab 02/10/20 Allergies Allergy/AdvReac Type Severity Reaction Status Date / Time latex Allergy Mild RASH/ITCH Verified 02/10/20 08:56 (tape) pollen extracts Allergy Mild SINUS AND Verified 02/10/20 08:56 [POLLEN EXTRACTS] CHEST CONGESTION adhesive tape [ADHESIVE TAPE] AdvReac Unknown ITCHY Verified 02/10/20 08:56 Review of Systems <CAROLA Velázquez - Last Filed: 02/10/20 20:51> Review of Systems Narrative: General: Denies fever, chills, fatigue, malaise, sweats. HEENT: Denies sinus pain, ear pain, sore throat, difficulty swallowing, dizziness. Respiratory: Denies dyspnea, cough, wheezing, hemoptysis, sputum. Cardiovascular: Denies chest pain, palpitations, orthopnea, edema. Gastrointestinal: Denies (+) nausea, (+) vomiting x1, abdominal pain, diarrhea, constipation, melena. : See HPI Musculoskeletal: Denies weakness, joint pain, (+) right flank pain or bony pain. Skin: Denies rash, skin lesions, or other. Neurologic: Denies weakness, headache, numbness, change in speech, confusion, seizures, incoordination. Psychiatric: No concerning psychosocial issues. 12-point review of systems is negative except for those stated above. Patient History <CAROLA Velázquez - Last Filed: 02/10/20 20:51> Medical History Anxiety (Chronic Unknown) Aortic stenosis (Chronic) Ascending aorta dilatation (Acute) Bilateral carotid artery disease (Acute ~09/2018) Bilateral carpal tunnel syndrome (Acute) BPH (benign prostatic hyperplasia) (Chronic Unknown) Cervical somatic dysfunction (Acute) Chronic back pain (Acute) Chronic kidney disease (Acute) Chronic pain syndrome (Chronic Unknown) Chronic renal insufficiency (Chronic Unknown) Coronary artery disease (Suspected Unknown) Depression (Chronic Unknown) Diabetes (Chronic Unknown) Edema of left lower extremity (Acute) GERD (gastroesophageal reflux disease) (Chronic Unknown) History of ETOH abuse (Resolved Unknown) Hyperlipemia (Chronic Unknown) Hypertension (Chronic Unknown) Low back pain (Chronic Unknown) Moderate right ankle sprain (Acute) Pancreatitis (Acute) Peripheral neuropathy (Chronic Unknown) Rheumatoid arthritis (Chronic Unknown) Rheumatoid arthritis (Acute) Seroma after procedure (Acute) Somatic dysfunction of right lower extremity (Acute) Stiff neck (Acute) Surgical History History of back surgery (Resolved ~2012) History of surgery (Acute) History of surgical removal of skin lesion (Acute) Hx of cholecystectomy (Acute) S/P cervical spinal fusion (Acute) Status post hernia repair Status post knee surgery Family History Mother Stroke Father Cancer Social History household members: none Smoking Status: Former smoker alcohol intake: current Smoking Status: Former smoker alcohol intake frequency: holidays/special occasions only Substance Use Type: marijuana Exam <CAROLA Velázquez - Last Filed: 02/10/20 20:51> Narrative Exam Narrative: GEN: Alert, oriented x 3, pale appearing and well nourished, and in moderate distress from pain. Head: Normal cephalic, atraumatic. No scalp or temporal tenderness, palpable mass or rash. EYES: Pupils are equal, round, and reactive to light and accommodation. Extraocular muscles are intact bilaterally. There is no subconjunctival hemorrhage, exudate and sclera non-icteric. ENT: Hearing grossly intact. Nose without bleeding, purulent discharge. Mucous membrane moist, no mucosal lesion. Throat without erythema, tonsillar hypertrophy or exudate. Uvula in midline, airway patent. Neck: Trachea in midline. No JVD, non-tender without lymphadenopathy. No masses or thyroid megaly. Supple, non-tender and no meningeal signs. CARDIAC: Normal regular rate and rhythm with murmurs. No gallops, or rubs. No chest wall tenderness. No peripheral edema, cyanosis or pallor. Capillary refill is less than 2 seconds. RESPIRATORY: Lungs are clear to auscultate bilaterally. No cough, wheezes, rales, or rhonchi. No stridor, respiratory distress, increase work of breathing, or accessary muscle used. ABD: Abdomen soft, nontender and non-distended. No guarding or rebound tenderness to palpate. Bowel sounds are normal in all 4 quadrants. There is no palpable masses or organomegaly. EXT: Full painless ROM of all extremities with no loss of sensation, strength, effusion or edema. SKIN: Warm, dry,mildy pale for patient. No erythema, lesions or rash over visible areas. BACK: Nontender without deformity or crepitance. To vertical post up incisions in bilateral paraspinal region. Right surgical site in lumbar recent with mild swelling with fluctuance. No erythema, warmth to palpate. No purulent discharge noted and surgical site appears to be clean, dry intact. Right flank pain tenderness to percuss NEUROLOGICAL: Alert and oriented to place, time and person. Sensation and motor function intact bilaterally. No facial droops, dysphasia. PSYCHIATRIC: Good judgement and reason, without hallucinations, abnormal affect or abnormal behaviors during the examination. Initial Vital Signs Initial Vital Signs: Vital Signs Temperature 97.7 F 02/10/20 17:41 Pulse Rate 66 02/10/20 17:41 Respiratory Rate 17 02/10/20 17:41 Blood Pressure 144/70 H 02/10/20 17:41 Pulse Oximetry 99 02/10/20 17:41 <Jesús Hooper DO - Last Filed: 02/10/20 23:00> Initial Vital Signs Initial Vital Signs: Vital Signs Temperature 97.7 F 02/10/20 17:41 Pulse Rate 66 02/10/20 17:41 Respiratory Rate 17 02/10/20 17:41 Blood Pressure 144/70 H 02/10/20 17:41 Pulse Oximetry 99 02/10/20 17:41 Scores <CAROLA Velázquez - Last Filed: 02/10/20 20:51> GCS Jackson coma scale eye opening: Spontaneous Salvador coma scale verbal response: Orientated Salvador coma scale motor response: Obey commands Jackson coma scale total score: 15 Course <Brian SommerCarineEdCAROLA morris - Last Filed: 02/10/20 20:51> Orders Ordered: ED Orders 02/10/20 18:00 C-Reactive Protein Quant Stat Complete Blood Count AUTO DIFF Stat Comprehensive Metabolic Panel Stat Erythrocyte Sedimentation Rate Stat Lactate (Lactic Acid) Stat 02/10/20 18:12 CT abdomen pelvis w con Stat Discontinued Medications Sodium Chloride (Normal Saline 0.9%) 500 mls @ 1,000 mls/hr IV BOLUS ONE Stop: 02/10/20 18:52 Last Admin: 02/10/20 19:03 Dose: 1,000 mls/hr Documented by: LORE Lidocaine (Lidoderm) 1 each TOP NOW ONE Stop: 02/10/20 20:27 Morphine Sulfate (Morphine) 4 mg IV NOW ONE Stop: 02/10/20 18:24 Last Admin: 02/10/20 18:30 Dose: 4 mg Documented by: GEN Ondansetron HCl (Zofran) 4 mg IV NOW ONE Stop: 02/10/20 18:24 Last Admin: 02/10/20 18:30 Dose: 4 mg Documented by: GNE Reevaluation(s) Reevaluation #1: The patient reports pain improved after the Morphine. Receiving IVF infusion, reports unable to provide urine at this time. Time: 19:10 Vital Signs Vital signs: Vital Signs - 8 hr 02/10/20 17:41 02/10/20 18:06 02/10/20 21:00 Temperature 97.7 F Pulse Rate 66 70 62 Respiratory Rate 17 18 18 Blood Pressure 144/70 H 129/64 Blood Pressure [Right Arm] 130/65 Pulse Oximetry 99 97 99 <Jesús Hooper DO - Last Filed: 02/10/20 23:00> Orders Ordered: ED Orders 02/10/20 18:00 C-Reactive Protein Quant Stat Complete Blood Count AUTO DIFF Stat Comprehensive Metabolic Panel Stat Erythrocyte Sedimentation Rate Stat Lactate (Lactic Acid) Stat 02/10/20 18:12 CT abdomen pelvis w con Stat Discontinued Medications Sodium Chloride (Normal Saline 0.9%) 500 mls @ 1,000 mls/hr IV BOLUS ONE Stop: 02/10/20 18:52 Last Admin: 02/10/20 19:03 Dose: 1,000 mls/hr Documented by: LORE Lidocaine (Lidoderm) 1 each TOP NOW ONE Stop: 02/10/20 20:27 Morphine Sulfate (Morphine) 4 mg IV NOW ONE Stop: 02/10/20 18:24 Last Admin: 02/10/20 18:30 Dose: 4 mg Documented by: GEN Ondansetron HCl (Zofran) 4 mg IV NOW ONE Stop: 02/10/20 18:24 Last Admin: 02/10/20 18:30 Dose: 4 mg Documented by: GEN Vital Signs Vital signs: Vital Signs - 8 hr 02/10/20 17:41 02/10/20 18:06 02/10/20 21:00 Temperature 97.7 F Pulse Rate 66 70 62 Respiratory Rate 17 18 18 Blood Pressure 144/70 H 129/64 Blood Pressure [Right Arm] 130/65 Pulse Oximetry 99 97 99 MDM - Male Genitourinary <CAROLA Velázquez - Last Filed: 02/10/20 20:51> Differential Diagnosis Differential diagnosis: Likely other (Kidney infection, kidney stone, seroma on left lumbar surgical site, bleeding on left lumbar surgical site, infection on left lumbar surgical site.) Medical Records Attestation: I reviewed the patient's medical records. Lab Data Attestation: I reviewed the patient's lab results. Result diagrams: 02/10/20 18:00 02/10/20 18:00 Labs: Lab Results 02/10/20 02/10/20 02/10/20 Range/Units 18:00 18:00 18:00 WBC 5.9 (4.5-11.0) X10^3/uL RBC 3.48 L (4.5-5.9) X10^6/uL Hgb 10.2 L (13.5-17.5) g/dL Hct 30.6 L (41-53) % MCV 87.9 (80-100) fL MCH 29.4 (26-34) PG MCHC 33.5 (30-36) % RDW 14.6 (11.6-14.8) % Plt Count 209 (150-400) X10^3/uL Neut % (Auto) 48.9 L (50-75) % Lymph % (Auto) 42.2 H (25-40) % [place] % (Auto) 6.7 (3-14) % Eos % (Auto) 1.7 L (2-4) % Baso % (Auto) 0.5 (0-2) % Neut # (Auto) 2900 (5817-9942) /uL Lymph # (Auto) 2500 (9285-3121) /uL [place] # (Auto) 400 (0-900) /uL Eos # (Auto) 100 (0-450) /uL Baso # (Auto) 0 (0-100) /uL ESR 41 H (0-15) MM/HR Sodium 134 L (137-145) mmol/L Potassium 4.1 (3.4-5.1) mmol/L Chloride 101 (98-107) mmol/L Carbon Dioxide 24 (22-32) mmol/L BUN 21 H (9-20) mg/dL Creatinine 1.05 (0.66-1.25) mg/dL Estimated GFR > 60.0 (>60) mL/min BUN/Creatinine Ratio 20.0 (6-22) Glucose 149 H (80-110) mg/dL Lactate 1.4 (0.7-2.1) mmol/L Calcium 9.3 (8.4-10.2) mg/dL Total Bilirubin 0.4 (0.2-1.3) mg/dL AST 34 (17-59) IU/L ALT 23 (<50) IU/L Alkaline Phosphatase 136 H (38-126) U/L C-Reactive Protein < 0.5 (<1.0) mg/dL Total Protein 7.5 (6.3-8.2) g/dL Albumin 4.2 (3.5-5.0) g/dL Globulin 3.3 (1.7-4.1) g/dL Albumin/Globulin Ratio 1.3 (1.0-2.8) Urine Dip Bedside Urine Glucose Negative Bedside Urine Bilirubin - Negative Bedside Urine Ketone - Negative Urine Specific Leland 1.015 Bedside Urine Occult Blood - Negative Bedside Urine pH 6.0 Bedside Urine Protein ++ 100 Bedside Urine Urobilinogen - Negative Bedside Urine Nitrite - Negative Bedside Urine Leukocytes - Negative Esterase Imaging Data CT scan - abdomen/pelvis: Radiologist's Impression: [address] [address] [address] Scan Report Signed Patient: Hector Harper EMR#: [id number] : 2Acct:[id number] Age/Sex: 69 / MDate of Service: 02/10/20 Loc: ED Accession Number: [id number] Procedure: CT abdomen pelvis w con Ordering Provider: Brian Schrader PROCEDURE: CT ABDOMEN PELVIS W CON INDICATIONS: c/o R low back/flank pain, s/p lumbar fusion op 01/10/20 TECHNIQUE: After the administration of intravenous contrast, 5 mm thick sections acquired from the diaphragm to the symphysis. 5 mm coronal and sagittal reformats were acquired. For radiation dose reduction, the following was used: automated exposure control, adjustment of mA and/or kV according to patient size. COMPARISON: [facility], CT, ANGIO CHEST ABDOMEN PELVIS, 02/02/2018, 17:46. [facility], CT, CT LUMBAR SPINE WO CON, 07/09/2019, 14:31. [facility], CT, ABDOMEN/PELVIS WITH CONTRAST, 04/12/2016, 20:32. FINDINGS: Image quality: Excellent. ABDOMEN: Lung bases: Lung bases are clear. Heart size is normal. Solid organs: Liver is normal in size and enhancement. Gallbladder has been removed. Biliary system is non dilated. Pancreas enhances normally. Spleen is normal in size and enhancement. No adrenal nodules. Kidneys demonstrate normal size and enhancement, without hydronephrosis. Bilateral renal cysts are present. Peritoneum and bowel: Bowel loops demonstrate normal wall thickness and caliber. No free fluid or air. Moderate stool is present. Nodes and vessels: No retroperitoneal or mesenteric adenopathy by size criteria. Aorta and inferior vena cava are normal in size. Miscellaneous: No ventral hernias. PELVIS: Genitourinary: Bladder wall thickness is normal. Miscellaneous: No inguinal hernias or adenopathy. Bones: No suspicious bony lesions. No vertebral body compression fractures. Posterior lumbar fusion is present from L2-S1. There is mild adjacent prominence of the paraspinous soft tissues. There is inflammatory change within the subcutaneous fat. A focal fluid collection with rim enhancement is identified from the level of L3-S1 measuring 14 mm AP by 49 mm transverse by 117 mm craniocaudal. IMPRESSION: 1. L2-S1 lumbar fusion with mild prominence of the paraspinous soft tissues. In addition, rim enhancing fluid is noted within the subcutaneous fat as above. While this could represent a postoperative seroma, given surrounding inflammatory change in rim-enhancing, subcutaneous abscess should be considered. Dictated by: Leena Cadena M.D. on 02/10/2020 at 19:02 Approved by: Leena Cadena M.D. on 02/10/2020 at 19:12 [facility] Narrative Medical decision making narrative: This is a 69-year-old male who presents to ED with right flank pain for 2 days with nausea and vomiting times once. He denies fever, chills. Patient had lumbar fusion in L2-3, L5-S1 posterolateral and posterioral interbody fusion and posterior interbody cage placement, L4-5 post lateral fusion, revision of laminectomy, L2-3 through L5-S1 posterior segment instrumentation with pedicle screw placement secondary to chronic low back pain and worsening lumbar radiculopathy by Dr. Cain on 01/06/20. The patient developed seroma around 2 weeks after postop and this has been drained by orthopedic surgeon and his symptoms remove approved. Patient is afebrile with a normotensive and non tachycardia while in ED. patient denied fever or chills. Lumbar spine surgical site has mild swelling and fluctuance but without warmth or redness. Patient's pain is slightly lateral to surgical incision site right flank region. Patient states he was unable to void after initial urine output this morning. Patient had just over 300 mL urine in bladder scanner before void. No leukocytosis today. ESR was 41 and slightly increased, given patient had recent surgical procedure this is expected. Normal CRP and Normal lactate level. Chemistry test were unremarkable with normal kidney function exam mildly elevated alkaline phosphatase of 136 and serum glucose level of 149. Patient received normal saline infusion of 500 mL. He was able to provide urine sample and voided about 350 mL. No indications of infection with negative urine nitrite and urine leukocyte esterase but 2+ urine protein. Patient has history of decreased kidney function in the past. CT scan of abdomen pelvis with IV contrast was obtained to rule out kidney stone versus postsurgical abscess in lumbar region. CT scan does not show kidney stones. Incidental findings of bilateral renal cyst without hydronephrosis. L2 through S1 lumbar fusion with mild prominence of paraspinous soft tissue with rim enhancing fluid is noted in the subcutaneous fat which is likely from inflammatory changes and there is also a focal fluid collection with rim enhancement in L3-S1 region. This could be another seroma but given surrounding inflammatory changes in rim enhancing it was reported to consider subcutaneous abscess. However, patient has normal vital signs with no leukocytosis, normal CRP, with mildly elevated ESR after recent back surgery, it is likely patient developing another seroma. At 2019, Dr Rowan was contacted and discussed the findings and consulted. She recommended that Patient to decreased activity next couple of days and to use cool packs on affected site and to monitor worsening symptoms. Patient advised to continue to use NSAID and discharged to home with prepack of tramadol for some severe pain. Patient provided lidocaine patch on affected site for 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 Return precautions were discussed with the patient and advised to follow with the back surgeon for sooner follow-up scheduled appointment in 2 weeks. Patient verbalized understanding and in agreement with the treatment plan. <Jesús Hooper, DO - Last Filed: 02/10/20 23:00> Lab Data Labs: Lab Results 02/10/20 02/10/20 02/10/20 Range/Units 18:00 18:00 18:00 WBC 5.9 (4.5-11.0) X10^3/uL RBC 3.48 L (4.5-5.9) X10^6/uL Hgb 10.2 L (13.5-17.5) g/dL Hct 30.6 L (41-53) % MCV 87.9 (80-100) fL MCH 29.4 (26-34) PG MCHC 33.5 (30-36) % RDW 14.6 (11.6-14.8) % Plt Count 209 (150-400) X10^3/uL Neut % (Auto) 48.9 L (50-75) % Lymph % (Auto) 42.2 H (25-40) % [place] % (Auto) 6.7 (3-14) % Eos % (Auto) 1.7 L (2-4) % Baso % (Auto) 0.5 (0-2) % Neut # (Auto) 2900 (1284-3455) /uL Lymph # (Auto) 2500 (3246-4809) /uL [place] # (Auto) 400 (0-900) /uL Eos # (Auto) 100 (0-450) /uL Baso # (Auto) 0 (0-100) /uL ESR 41 H (0-15) MM/HR Sodium 134 L (137-145) mmol/L Potassium 4.1 (3.4-5.1) mmol/L Chloride 101 (98-107) mmol/L Carbon Dioxide 24 (22-32) mmol/L BUN 21 H (9-20) mg/dL Creatinine 1.05 (0.66-1.25) mg/dL Estimated GFR > 60.0 (>60) mL/min BUN/Creatinine Ratio 20.0 (6-22) Glucose 149 H (80-110) mg/dL Lactate 1.4 (0.7-2.1) mmol/L Calcium 9.3 (8.4-10.2) mg/dL Total Bilirubin 0.4 (0.2-1.3) mg/dL AST 34 (17-59) IU/L ALT 23 (<50) IU/L Alkaline Phosphatase 136 H (38-126) U/L C-Reactive Protein < 0.5 (<1.0) mg/dL Total Protein 7.5 (6.3-8.2) g/dL Albumin 4.2 (3.5-5.0) g/dL Globulin 3.3 (1.7-4.1) g/dL Albumin/Globulin Ratio 1.3 (1.0-2.8) Urine Dip Bedside Urine Glucose Negative Bedside Urine Bilirubin - Negative Bedside Urine Ketone - Negative Urine Specific Leland 1.015 Bedside Urine Occult Blood - Negative Bedside Urine pH 6.0 Bedside Urine Protein ++ 100 Bedside Urine Urobilinogen - Negative Bedside Urine Nitrite - Negative Bedside Urine Leukocytes - Negative Esterase Discharge Plan Departure Patient Disposition: Home Clinical Impression: Seroma after procedure Right lumbar pain Qualifiers: Chronicity: acute Sciatica presence: without sciatica Qualified Code(s): M54.5 - Low back pain Discharge Date/Time: 02/10/20 21:00 Instructions: DI for Low Back Pain Activity Restrictions/Additional Instructions: You have been diagnosed with [postsurgical right side low back pain, flank pain. Seroma development in right-sided lumbar region. There is no indication of significant infection per today's blood test. You do not have fever and vital signs are within normal limits. Urine test does not indicate infection. You were medicated with morphine and Zofran while in ED which helped your symptoms. CT scan shows no kidney stones, no urine packed up in kidney. It shows some inflammatory changes in the with right-sided lumbar region and fluid collection within the subcutaneous fat which is likely a postoperative seroma at this time.]. What to do: *Take your medications as directed. Please use lidocaine patch for pain which stays on for 12 hours and off for 12 hours. You can remove the current lidocaine patch at 8:00 a.m. tomorrow. Please continue to take Advil 400 mg up to 3 times a day as needed for pain with food. You can take 650-1000 mg Tylenol to 3 times a day as needed for discomfort. For severe pain you can take tramadol as needed scan cause drowsiness so please take precautions not to drive, drink alcohol or operate heavy equipments. He can cause constipation as well. *Follow up with your primary care provider/Dr. Cain in 2-3 days, call for an appointment. Let them know you were seen in the ED and that we asked you to be seen in follow up. *Return to ED if you have any new, worsening, or concerning symptoms, such as [fever, increasing pain, drainage from surgical site, warmth/redness developing on surgical site, chest pain, breathing difficulty, unable to tolerate fluids, difficulty with urination or any acute concerns]. Prescriptions: New lidocaine 5 % adhesive patch,medicated 1 patch TOP DAILY Qty: 30 RF: 0 tramadol 50 mg tablet 50 mg PO BID PRN (Reason: pain) Qty: 7 RF: 0 No Action amlodipine 10 mg tablet See Rx Instructions .ROUTE .COMPLEX Qty: 90 RF: 1 glipizide 5 mg tablet See Rx Instructions .ROUTE .COMPLEX Qty: 90 RF: 1 isosorbide mononitrate 60 mg tablet extended release 24 hr See Rx Instructions .ROUTE .COMPLEX Qty: 90 RF: 1 oxybutynin chloride 15 mg tablet extended release 24hr See Rx Instructions .ROUTE .COMPLEX Qty: 90 RF: 1 duloxetine 30 mg capsule,delayed release(DR/EC) See Rx Instructions .ROUTE .COMPLEX Qty: 90 RF: 1 gabapentin 600 mg tablet See Rx Instructions .ROUTE .COMPLEX Qty: 180 RF: 1 atorvastatin 20 mg tablet 20 mg PO DAILY RF: 0 Glucose: Test Strips 1 strip miscellaneous DIRECTED RF: 0 metoprolol succinate 100 mg tablet extended release 24 hr 50 mg PO BID RF: 0 tamsulosin 0.4 mg capsule 0.8 mg PO QPM RF: 0 acetaminophen 325 mg Tablet 975 mg PO TID Qty: 40 RF: 0 hydroxyzine pamoate 25 mg Capsule 25 mg PO Q4HR PRN (Reason: Nausea And Vomiting) Qty: 20 RF: 0 acetaminophen 500 mg capsule 500 mg PO Q6H PRN (Reason: pain) Qty: 30 RF: 0 Referrals: Lashonda Cain MD [Physician] - Cesar Bar DO [Primary Care Provider] - <Jesús Hooper DO - Last Filed: 02/10/20 23:00> Cosign ED Attending Harriet Attestation: I was immediately available in the department for consultation. This documentation has been reviewed and I agree with assessment and plan. Supervised by Jesús Hooper DO
[2020-02-10 18:12] LABS: Add Manual Diff / Slide Review NO; Basophils Absolute Auto 0 /uL (0-100); Basophils Percent Auto 0.5 % (0-2); Eosinophils Absolute Auto 100 /uL (0-450); Eosinophils Percent Auto 1.7 % (2-4); Hematocrit 30.6 % (41-53); Hemoglobin 10.2 g/dL (13.5-17.5); Lymphocytes Absolute Auto 2500 /uL (1100-4500); Lymphocytes Percent Auto 42.2 % (25-40); Mean Corpuscular HGB Conc 33.5 % (30-36); Mean Corpuscular Hemoglobin 29.4 PG (26-34); Mean Corpuscular Volume 87.9 fL (80-100); Monocytes Absolute Auto 400 /uL (0-900); Monocytes Percent Auto 6.7 % (3-14); Neutrophils Absolute Auto 2900 /uL (1500-7000); Neutrophils Percent Auto 48.9 % (50-75); Platelet Count 209 X10^3/uL (150-400); Red Blood Cell Count 3.48 X10^6/uL (4.5-5.9); Red Cell Distribution Width 14.6 % (11.6-14.8); White Blood Cell Count 5.9 X10^3/uL (4.5-11.0)
--- NOTE | 2020-02-10 18:12 | DI.CT.S_ITS ---
PROCEDURE: CT ABDOMEN PELVIS W CON INDICATIONS: c/o R low back/flank pain, s/p lumbar fusion op 01/10/20 TECHNIQUE: After the administration of intravenous contrast, 5 mm thick sections acquired from the diaphragm to the symphysis. 5 mm coronal and sagittal reformats were acquired. For radiation dose reduction, the following was used: automated exposure control, adjustment of mA and/or kV according to patient size. COMPARISON: [facility], CT, ANGIO CHEST ABDOMEN PELVIS, 02/02/2018, 17:46. [facility], CT, CT LUMBAR SPINE WO CON, 07/09/2019, 14:31. [facility], CT, ABDOMEN/PELVIS WITH CONTRAST, 04/12/2016, 20:32. FINDINGS: Image quality: Excellent. ABDOMEN: Lung bases: Lung bases are clear. Heart size is normal. Solid organs: Liver is normal in size and enhancement. Gallbladder has been removed. Biliary system is non dilated. Pancreas enhances normally. Spleen is normal in size and enhancement. No adrenal nodules. Kidneys demonstrate normal size and enhancement, without hydronephrosis. Bilateral renal cysts are present. Peritoneum and bowel: Bowel loops demonstrate normal wall thickness and caliber. No free fluid or air. Moderate stool is present. Nodes and vessels: No retroperitoneal or mesenteric adenopathy by size criteria. Aorta and inferior vena cava are normal in size. Miscellaneous: No ventral hernias. PELVIS: Genitourinary: Bladder wall thickness is normal. Miscellaneous: No inguinal hernias or adenopathy. Bones: No suspicious bony lesions. No vertebral body compression fractures. Posterior lumbar fusion is present from L2-S1. There is mild adjacent prominence of the paraspinous soft tissues. There is inflammatory change within the subcutaneous fat. A focal fluid collection with rim enhancement is identified from the level of L3-S1 measuring 14 mm AP by 49 mm transverse by 117 mm craniocaudal. IMPRESSION: 1. L2-S1 lumbar fusion with mild prominence of the paraspinous soft tissues. In addition, rim enhancing fluid is noted within the subcutaneous fat as above. While this could represent a postoperative seroma, given surrounding inflammatory change in rim-enhancing, subcutaneous abscess should be considered. Dictated by: Leena Cadena M.D. on 02/10/2020 at 19:02 Approved by: Leena Cadena M.D. on 02/10/2020 at 19:12
[2020-02-10 18:30] LABS: Lactate (Lactic Acid) 1.4 mmol/L (0.7-2.1)
[2020-02-10] MEDS: ONDANSETRON 4 MG/2 ML INJ IV (18:30)
[2020-02-10] MEDS: MORPHINE 4 MG/ML INJ IV (18:30)
[2020-02-10 18:34] LABS: Alanine Aminotransferase 23 IU/L (<50); Albumin 4.2 g/dL (3.5-5.0); Albumin Globulin Ratio 1.3 (1.0-2.8); Alkaline Phosphatase 136 U/L (38-126); Aspartate Aminotransferase 34 IU/L (17-59); Bilirubin Total 0.4 mg/dL (0.2-1.3); Blood Urea Nitrogen 21 mg/dL (9-20); Calcium 9.3 mg/dL (8.4-10.2); Carbon Dioxide 24 mmol/L (22-32); Chloride 101 mmol/L (98-107); Estimated Glomerular Filt Rate > 60.0 mL/min (>60); Globulin 3.3 g/dL (1.7-4.1); Glucose 149 mg/dL (80-110); HEMOLYSIS < 15 (0-50); Potassium 4.1 mmol/L (3.4-5.1); Sodium 134 mmol/L (137-145); Total Protein 7.5 g/dL (6.3-8.2)
[2020-02-10 18:49] LABS: C-Reactive Protein Quant < 0.5 mg/dL (<1.0)
[2020-02-10 18:53] LABS: Erythrocyte Sedimentation Rate 41 MM/HR (0-15)
[2020-02-10] MEDS: SODIUM CHLORIDE 0.9% 500 ML 1000 ML IV (19:03)
[2020-02-10 21:00] VITALS: BP 129/64; PULSE 62; RESP 18; O2SAT 99
--- NOTE | 2020-03-01 13:18 | PC.NURSE ---
Per Stefan BENNETT, patient's Normal Saline IV stopped at 1950 on 02/10/2020 with 1000mL infused
== END 2020-02-10 21:00 | disposition home or self-care (01) ==
PROVIDERS: Emergency Provider Nurse Practitioner Family; PCP Family Medicine
DX: M96.843 Postprocedural seroma of a musculoskeletal structure following other procedure (principal); M54.5 Low back pain; R10.9 Unspecified abdominal pain
CPT/HCPCS: 36415; 51798; 74177; 80053; 81003; 83605; 85025; 85651; 86140; 96361; 96374; 96375; 99284; J2270; J2405; Q9967

== ENCOUNTER 2020-02-16 11:02 | Emergency (ER) | payer MEDICARE, OTHER, SELFPAY ==
[2020-01-06 18:24] VITALS: BMI 23.6
[2020-02-16] VITALS (8 sets, daily range): BP systolic 139–184; BP diastolic 68–99; PULSE 54–62; RESP 16–18; TEMP 36.9; O2SAT 97–98; BMI 23.0
--- NOTE | 2020-02-16 11:32 | ED_ITS ---
HPI - Back Pain/Injury <CAROLA Velázquez - Last Filed: 02/16/20 18:31> General Chief Complaint: Back Pain/Injury Stated Complaint: low back pain x30 days Time Seen by Provider: 02/16/20 11:08 Source: patient Limitations: no limitations History of Present Illness HPI Narrative: This is a 69-year-old male, former smoker, who presents to ED with chief complain of right flank/low back pain. Patient reports his pain is 20/10 and constant throbbing and aching pain. Patient denies fever, chills, vomiting but has been dry heaving due to severe pain. Patient reports he could hardly walk due to severe back pain. Patient denies urinary symptoms such as urgency, dysuria, hematuria. Patient was evaluated by his PCP, Dr. Bar and ED on 02/10/20 and patient had surgery lumbar fusion and revision of previous back surgery secondary to severe lumbar arthritis on 01/06/[address] Cain. He had follow-up appointment 2 weeks after the surgery and he had postsurgical swelling on right side lumbar region according to Dr. Bar's EHR and had drained seroma. Patient reports he has been taking Tylenol 1500 mg to 3 times a day for his pain. Patient is not currently taking antibiotic medication. Patient has a history of atypical chest pain, acute kidney injury, hypertension, depression, opioid type dependence in remission, NSTEMI, anxiety, controlled type 2 diabetes mellitus, alcohol abuse, CAD, rheumatoid arthritis, GERD. When patient was evaluated on 02/10/2020 in ED patient had lab tests done including CRP and ESR, CBC , CMP, abdomen/pelvis CT with IV contrast, urine test. There was no leukocytosis but slightly elevated of ESR of 41 with normal CRP. Urine did not exhibit signs of infection. CT test showed L2 through S1 lumbar fusion with mild prominence of paraspinous soft tissue. It was noted rim enhancing fluid within the subcutaneous fat indicating inflammatory changes and a focal fluid collection with rim enhancement in L3-S1 region. Patient was discharged to home with instruction of decrease physical activity for next few days and use cool pack on affected site with strict return precautions indicating infection or increasing pain. Patient reports attempted to contact Dr. Cain at [facility] orthopedic office but was unable to hear back from Dr. Cain. Related Data Home Medications Medication Instructions Recorded Confirmed Glucose: Test Strips 1 strip MISCELLANEOUS DIRECTED 04/29/18 02/10/20 atorvastatin 20 mg tablet 20 mg PO DAILY 04/03/19 02/10/20 metoprolol succinate 100 mg 50 mg PO BID tab 04/03/19 02/10/20 tablet,extended release 24 hr tamsulosin 0.8 mg PO QPM 12/23/19 02/10/20 Previous Rx's Medication Instructions Recorded amlodipine 10 mg tablet See Rx Instructions .ROUTE 12/07/19 .COMPLEX #90 tablet duloxetine 30 mg capsule,delayed See Rx Instructions .ROUTE 12/07/19 release .COMPLEX #90 cap glipizide 5 mg tablet See Rx Instructions .ROUTE 12/07/19 .COMPLEX #90 tablet isosorbide mononitrate 60 mg See Rx Instructions .ROUTE 12/07/19 tablet,extended release 24 hr .COMPLEX #90 tablet oxybutynin chloride 15 mg See Rx Instructions .ROUTE 12/07/19 tablet,extended release 24 hr .COMPLEX #90 tablet acetaminophen 975 mg PO TID #40 tab 01/08/20 acetaminophen 500 mg PO Q6H PRN #30 cap 01/10/20 hydroxyzine pamoate 25 mg PO Q4HR PRN #20 cap 01/10/20 gabapentin 600 mg tablet See Rx Instructions .ROUTE 02/08/20 .COMPLEX #180 tablet lidocaine 1 patch TOP DAILY #30 each 02/10/20 tramadol 50 mg PO BID PRN #7 tab 02/10/20 methylprednisolone [Medrol (Ptaric)] See Rx Instructions .ROUTE 02/16/20 .COMPLEX #21 each omeprazole 20 mg PO DAILY 14 Days #14 cap 02/16/20 oxycodone-acetaminophen [Percocet] 1 tab PO Q6H PRN #14 tab 02/16/20 Allergies Allergy/AdvReac Type Severity Reaction Status Date / Time latex Allergy Mild RASH/ITCH Verified 02/16/20 11:14 (tape) pollen extracts Allergy Mild SINUS AND Verified 02/16/20 11:14 [POLLEN EXTRACTS] CHEST CONGESTION adhesive tape [ADHESIVE TAPE] AdvReac Unknown ITCHY Verified 02/16/20 11:14 Review of Systems <CAROLA Velázquez - Last Filed: 02/16/20 18:31> Review of Systems Narrative: General: Denies fever, chills, fatigue, malaise, sweats. HEENT: Denies sinus pain, ear pain, sore throat, difficulty swallowing, dizziness. Respiratory: Denies dyspnea, cough, wheezing, hemoptysis, sputum. Cardiovascular: Denies chest pain, palpitations, orthopnea, edema. Gastrointestinal: Denies (+) nausea, vomiting, abdominal pain, diarrhea, constipation, melena. : Denies dysuria, frequency, incontinence, hematuria, urinary retention. Musculoskeletal: See HPI Skin: Denies rash, skin lesions, or other. Neurologic: Denies weakness, headache, numbness, change in speech, confusion, seizures, incoordination. Psychiatric: No concerning psychosocial issues. 12-point review of systems is negative except for those stated above. Patient History <CAROLA Velázquez - Last Filed: 02/16/20 18:31> Medical History Anxiety (Chronic Unknown) Aortic stenosis (Chronic) Ascending aorta dilatation (Acute) Bilateral carotid artery disease (Acute ~09/2018) Bilateral carpal tunnel syndrome (Acute) BPH (benign prostatic hyperplasia) (Chronic Unknown) Cervical somatic dysfunction (Acute) Chronic back pain (Acute) Chronic kidney disease (Acute) Chronic pain syndrome (Chronic Unknown) Chronic renal insufficiency (Chronic Unknown) Coronary artery disease (Suspected Unknown) Depression (Chronic Unknown) Diabetes (Chronic Unknown) Edema of left lower extremity (Acute) GERD (gastroesophageal reflux disease) (Chronic Unknown) History of ETOH abuse (Resolved Unknown) Hyperlipemia (Chronic Unknown) Hypertension (Chronic Unknown) Low back pain (Chronic Unknown) Moderate right ankle sprain (Acute) Pancreatitis (Acute) Peripheral neuropathy (Chronic Unknown) Rheumatoid arthritis (Chronic Unknown) Rheumatoid arthritis (Acute) Seroma after procedure (Acute) Somatic dysfunction of right lower extremity (Acute) Stiff neck (Acute) Surgical History History of back surgery (Resolved ~2012) History of surgery (Acute) History of surgical removal of skin lesion (Acute) Hx of cholecystectomy (Acute) S/P cervical spinal fusion (Acute) Status post hernia repair Status post knee surgery Family History Mother Stroke Father Cancer Social History household members: none Smoking Status: Former smoker alcohol intake: current Smoking Status: Former smoker alcohol intake frequency: holidays/special occasions only Alcohol type: beer and wine Substance Use Type: marijuana Exam <CAROLA Velázquez - Last Filed: 02/16/20 18:31> Narrative Exam Narrative: GEN: Alert, oriented x 3, thin appearing and in moderate distress. Head: Normal cephalic, atraumatic. No scalp or temporal tenderness, palpable mass or rash. EYES: Pupils are equal, round, and reactive to light and accommodation. Extraocular muscles are intact bilaterally. There is no subconjunctival hemorrhage, exudate and sclera non-icteric. ENT: Bilateral auditory canals and tympanic membranes clear. Hearing grossly intact. Nose without bleeding, purulent discharge or deviation. Facial sinuses nontender to palpate. Mucous membrane moist, . Throat without erythema, tonsillar hypertrophy or exudate. Uvula in midline, airway patent. Neck: Trachea in midline. No JVD, non-tender without lymphadenopathy. No masses or thyroid megaly. Supple, non-tender and no meningeal signs. CARDIAC: Normal regular rate and rhythm without murmurs, gallops, or rubs. No chest wall tenderness. No peripheral edema, cyanosis or pallor. Capillary refill is less than 2 seconds. RESPIRATORY: Lungs are clear to auscultate bilaterally. No cough, wheezes, rales, or rhonchi. No stridor, respiratory distress, increase work of breathing, or accessary muscle used. ABD: Abdomen soft, nontender and non-distended. No guarding or rebound tenderness to palpate. Bowel sounds are normal in all 4 quadrants. There is no palpable masses or organomegaly. EXT: No loss of sensation, strength in bilateral lower extremities equal, effusion or edema. SKIN: Warm, dry, mildly pale color for patient. No erythema, lesions or rash over visible areas. BACK: Vertical postop incision in bilateral paraspinal region intact without drainage, redness, warmth to touch. Tender to palpate right flank region. Mild swelling and fluctuance to right lumbar region. No deformity or crepitance. NEUROLOGICAL: Alert and oriented to place, time and person. Sensation and motor function intact bilaterally. No facial droops, dysphasia. PSYCHIATRIC: Good judgement and reason, without hallucinations, abnormal affect or abnormal behaviors during the examination. Initial Vital Signs Initial Vital Signs: Vital Signs Temperature 98.4 F 02/16/20 11:04 Pulse Rate 56 L 02/16/20 11:04 Respiratory Rate 16 02/16/20 11:04 Blood Pressure 184/81 H 02/16/20 11:04 Pulse Oximetry 97 02/16/20 11:04 <Ale Hu DO - Last Filed: 02/19/20 19:14> Initial Vital Signs Initial Vital Signs: Vital Signs Temperature 98.4 F 02/16/20 11:04 Pulse Rate 56 L 02/16/20 11:04 Respiratory Rate 16 02/16/20 11:04 Blood Pressure 184/81 H 02/16/20 11:04 Pulse Oximetry 97 02/16/20 11:04 Scores <CAROLA Velázquez - Last Filed: 02/16/20 18:31> GCS [place] coma scale eye opening: Spontaneous [place] coma scale verbal response: Orientated [place] coma scale motor response: Obey commands [place] coma scale total score: 15 Course <CAROLA Velázquez - Last Filed: 02/16/20 18:31> Orders Ordered: Discontinued Medications Hydromorphone HCl (Dilaudid) 1 mg IV NOW ONE Stop: 02/16/20 12:27 Last Admin: 02/16/20 12:59 Dose: 1 mg Documented by: PATELSENKalpana Hydromorphone HCl (Dilaudid) 0.5 mg IV NOW ONE Stop: 02/16/20 16:35 Last Admin: 02/16/20 16:49 Dose: 0.5 mg Documented by: PATELSENKalpana Sodium Chloride (Normal Saline 0.9%) 500 mls @ 1,000 mls/hr IV BOLUS ONE Stop: 02/16/20 12:55 Last Infusion: 02/16/20 13:48 Dose: 0 mls/hr Documented by: Admin: 02/16/20 12:59 Dose: 1,000 mls/hr Documented by: PATELSENKalpana Morphine Sulfate (Morphine) 4 mg IV NOW ONE Stop: 02/16/20 11:48 Last Admin: 02/16/20 12:10 Dose: 4 mg Documented by: PATELSENKalpana Ondansetron HCl (Zofran) 4 mg IV NOW ONE Stop: 02/16/20 11:48 Last Admin: 02/16/20 12:10 Dose: 4 mg Documented by: PHILL Oxycodone/Acetaminophen (Percocet 5/325) 1 tab PO NOW ONE Stop: 02/16/20 17:54 Last Admin: 02/16/20 18:02 Dose: 1 tab Documented by: TYLER Prednisone (Deltasone) 40 mg PO NOW ONE Stop: 02/16/20 17:54 Last Admin: 02/16/20 18:02 Dose: 40 mg Documented by: TYLER Reevaluation(s) Reevaluation #1: Improved back pain after the Dilaudid Time: 13:20 Reevaluation #2: Returned from MRI. Pain about 710. Able to void w/o difficulty-light, clear urine Time: 15:20 Reevaluation #3: Medicated the patient with 0.5 mg of Dilaudid before ambulation. Patient ambulated around nursing carvajal with a walker in stable gait. Time: 17:07 Consultations Consultation #1: Dr. Camacho and Dr. Cain with physical, lab and MRI/CT findings and recommendation Time: 16:55 Vital Signs Vital signs: Vital Signs - 8 hr 02/16/20 11:04 02/16/20 11:40 02/16/20 13:10 Temperature 98.4 F Pulse Rate 56 L 57 L 60 Respiratory Rate 16 18 18 Blood Pressure 184/81 H Blood Pressure [Right Arm] 171/79 H 139/68 Pulse Oximetry 97 98 98 02/16/20 15:22 02/16/20 15:30 02/16/20 16:00 Temperature Pulse Rate 62 Respiratory Rate 18 Blood Pressure Blood Pressure [Right Arm] 147/74 H 145/69 H 149/70 H Pulse Oximetry 98 02/16/20 16:30 02/16/20 18:18 Temperature Pulse Rate 54 L Respiratory Rate Blood Pressure 154/99 H Blood Pressure [Right Arm] 173/78 H Pulse Oximetry 97 <Ale Hu DO - Last Filed: 02/19/20 19:14> Orders Ordered: Discontinued Medications Hydromorphone HCl (Dilaudid) 1 mg IV NOW ONE Stop: 02/16/20 12:27 Last Admin: 02/16/20 12:59 Dose: 1 mg Documented by: PHILL Hydromorphone HCl (Dilaudid) 0.5 mg IV NOW ONE Stop: 02/16/20 16:35 Last Admin: 02/16/20 16:49 Dose: 0.5 mg Documented by: PHILL Sodium Chloride (Normal Saline 0.9%) 500 mls @ 1,000 mls/hr IV BOLUS ONE Stop: 02/16/20 12:55 Last Infusion: 02/16/20 13:48 Dose: 0 mls/hr Documented by: Admin: 02/16/20 12:59 Dose: 1,000 mls/hr Documented by: PHILL Morphine Sulfate (Morphine) 4 mg IV NOW ONE Stop: 02/16/20 11:48 Last Admin: 02/16/20 12:10 Dose: 4 mg Documented by: PHILL Ondansetron HCl (Zofran) 4 mg IV NOW ONE Stop: 02/16/20 11:48 Last Admin: 02/16/20 12:10 Dose: 4 mg Documented by: PHILL Oxycodone/Acetaminophen (Percocet 5/325) 1 tab PO NOW ONE Stop: 02/16/20 17:54 Last Admin: 02/16/20 18:02 Dose: 1 tab Documented by: TYLER Prednisone (Deltasone) 40 mg PO NOW ONE Stop: 02/16/20 17:54 Last Admin: 02/16/20 18:02 Dose: 40 mg Documented by: TYLER Vital Signs Vital signs: Vital Signs - 8 hr 02/16/20 11:04 02/16/20 11:40 02/16/20 13:10 Temperature 98.4 F Pulse Rate 56 L 57 L 60 Respiratory Rate 16 18 18 Blood Pressure 184/81 H Blood Pressure [Right Arm] 171/79 H 139/68 Pulse Oximetry 97 98 98 02/16/20 15:22 02/16/20 15:30 02/16/20 16:00 Temperature Pulse Rate 62 Respiratory Rate 18 Blood Pressure Blood Pressure [Right Arm] 147/74 H 145/69 H 149/70 H Pulse Oximetry 98 02/16/20 16:30 02/16/20 18:18 Temperature Pulse Rate 54 L Respiratory Rate Blood Pressure 154/99 H Blood Pressure [Right Arm] 173/78 H Pulse Oximetry 97 MDM - Back Pain/Injury <Brian Novoa-Oralexnadra, SIZING END BANDER - Last Filed: 02/16/20 18:31> Differential Diagnosis Differential diagnosis: Likely other (Lumbar postop abscess, seroma, postop pain, kidney infection) Medical Records Attestation: I reviewed the patient's medical records. Lab Data Attestation: I reviewed the patient's lab results. Result diagrams: 02/16/20 11:30 02/16/20 11:30 Labs: Lab Results 02/16/20 02/16/20 02/16/20 Range/Units 11:30 11:30 11:30 WBC 5.8 (4.5-11.0) X10^3/uL RBC 3.57 L (4.5-5.9) X10^6/uL Hgb 10.6 L (13.5-17.5) g/dL Hct 31.2 L (41-53) % MCV 87.5 (80-100) fL MCH 29.8 (26-34) PG MCHC 34.1 (30-36) % RDW 14.8 (11.6-14.8) % Plt Count 212 (150-400) X10^3/uL Neut % (Auto) 54.9 (50-75) % Lymph % (Auto) 39.3 (25-40) % [place] % (Auto) 4.4 (3-14) % Eos % (Auto) 1.0 L (2-4) % Baso % (Auto) 0.4 (0-2) % Neut # (Auto) 3200 (4261-3929) /uL Lymph # (Auto) 2300 (2950-0920) /uL [place] # (Auto) 300 (0-900) /uL Eos # (Auto) 100 (0-450) /uL Baso # (Auto) 0 (0-100) /uL ESR 35 H (0-15) MM/HR Sodium 132 L (137-145) mmol/L Potassium 4.6 (3.4-5.1) mmol/L Chloride 97 L (98-107) mmol/L Carbon Dioxide 26 (22-32) mmol/L BUN 29 H (9-20) mg/dL Creatinine 1.06 (0.66-1.25) mg/dL Estimated GFR > 60.0 (>60) mL/min BUN/Creatinine Ratio 27.4 H (6-22) Glucose 156 H (80-110) mg/dL Lactate (0.7-2.1) mmol/L Calcium 9.3 (8.4-10.2) mg/dL C-Reactive Protein < 0.5 (<1.0) mg/dL Procalcitonin < 0.05 (<0.5) ng/mL 02/16/20 Range/Units 11:30 WBC (4.5-11.0) X10^3/uL RBC (4.5-5.9) X10^6/uL Hgb (13.5-17.5) g/dL Hct (41-53) % MCV (80-100) fL MCH (26-34) PG MCHC (30-36) % RDW (11.6-14.8) % Plt Count (150-400) X10^3/uL Neut % (Auto) (50-75) % Lymph % (Auto) (25-40) % [place] % (Auto) (3-14) % Eos % (Auto) (2-4) % Baso % (Auto) (0-2) % Neut # (Auto) (0254-2100) /uL Lymph # (Auto) (4776-9903) /uL [place] # (Auto) (0-900) /uL Eos # (Auto) (0-450) /uL Baso # (Auto) (0-100) /uL ESR (0-15) MM/HR Sodium (137-145) mmol/L Potassium (3.4-5.1) mmol/L Chloride (98-107) mmol/L Carbon Dioxide (22-32) mmol/L BUN (9-20) mg/dL Creatinine (0.66-1.25) mg/dL Estimated GFR (>60) mL/min BUN/Creatinine Ratio (6-22) Glucose (80-110) mg/dL Lactate 1.0 (0.7-2.1) mmol/L Calcium (8.4-10.2) mg/dL C-Reactive Protein (<1.0) mg/dL Procalcitonin (<0.5) ng/mL Urine Dip Bedside Urine Glucose Negative Bedside Urine Bilirubin - Negative Bedside Urine Ketone - Negative Urine Specific [place] 1.020 Bedside Urine Occult Blood - Negative Bedside Urine pH 6.5 Bedside Urine Protein +++ 300 Bedside Urine Urobilinogen - Negative Bedside Urine Nitrite - Negative Bedside Urine Leukocytes - Negative Esterase Imaging Data MRI-Lumbar w/ and w/o contrast: Radiologist's Impression: [address] [address] Magnetic Resonance Report Signed Patient: Hector Harper EMR#: [id number] : 2Acct:[id number] Age/Sex: 69 / MDate of Service: 02/16/20 Loc: ED Accession Number: [id number] Procedure: MR lumbar spine wo/w con Ordering Provider: Brian Schrader PROCEDURE: MR LUMBAR SPINE WO/W CON INDICATIONS: s/p lumbar fusion surgery end of Dec 31, pain and swelling TECHNIQUE: Noncontrast sagittal T1 spin echo and T2 fast spin echo, sagittal STIR, axial T1 and T2 fast spin echo through the lumbar spine. In cases with scoliosis, additional coronal T2 fast spin echo may be performed. After the administration of contrast, sagittal and axial T1 spin echo with fat saturation through the lumbar spine. COMPARISON: [facility], CT, CT LUMBAR SPINE WO CON, 07/09/2019, 14:31. [facility], CR, XR LUMBAR SPINE 2-3V, 01/06/2020, 9:22. [facility], CT, CT ABDOMEN PELVIS W CON, 02/10/2020, 18:15. FINDINGS: Image quality: Excellent. Alignment and curvature: There is normal bony alignment. Marrow: Marrow is of normal overall signal. Scattered foci are seen, which are hyperintense on T1-weighted and T2-weighted imaging, which are most consistent with benign vertebral body hemangiomas. No acute vertebral body compression fractures. No suspicious marrow enhancement. Spinal cord: Conus medullaris terminates at the L1 level. Visualized spinal cord demonstrates normal signal, without suspicious enhancement. Paraspinous soft tissues: No paravertebral masses are seen. Rim-enhancing fluid collections are seen within the postoperative subcutaneous fat on both sides. The larger of these is seen on the right side and measures 11.5 cm craniocaudal, with a maximum axial extent of 1.1 x 3.4 cm. There is a smaller left-sided rim-enhancing fluid collection seen that measures 5.7 cm craniocaudal by 1.8 x 0.5 cm in greatest axial dimension. Postoperative changes are seen, with bilateral pedicle screws seen from L2-S1. The L2 screws are superiorly angulated, with the tips seen near the superior endplates, which are better seen on the recent prior CT examination. Vertical fixation rods are seen. Disc spacers are seen at the postoperative region. There is associated susceptibility artifact. There has been removal of portions of the posterior elements. T12-L1: No significant abnormality is seen. L1-L2: The disc height and disc signal are relatively well-preserved. Mild generalized disc bulge is seen. Moderate facet joint hypertrophy is seen. Moderate bilateral neural foraminal narrowing is seen. Mild central canal narrowing is seen. These degenerative changes appear more prominent than on the prior CT. L2-L3: Moderate to severe loss of disc height is seen. Moderate generalized disc bulge is seen. Moderate facet joint hypertrophy is seen. Moderate bilateral neural foraminal narrowing is seen. Moderate central canal narrowing is seen. L3-L4: Moderate loss of disc height is seen. Mild to moderate disc bulge is seen. There is moderate right-sided and at least moderate left-sided neural foraminal narrowing seen. The central canal is widely patent. L4-L5: Moderate loss of disc height is seen. Moderate disc bulge is seen, with a mild central disc protrusion. Moderate bilateral neural foraminal narrowing is seen. The central canal is widely patent. L5-S1: Mild to moderate loss of disc height and disc signal are seen. Moderate disc seen, which is eccentric the right. The central disc protrusion, as on series 5 image 32. Moderate bilateral neural foraminal narrowing is seen. Moderate central canal narrowing is seen. IMPRESSION: Rim-enhancing fluid collections can be seen within the subcutaneous fat posteriorly on both sides, right larger than left and most likely be related to benign postoperative fluid collections such as seromas. Differential diagnosis would also include abscess. Please correlate with patient presentation, laboratory values, and physical examination findings. Extensive lumbosacral postoperative changes are seen, with pedicle screws extending L2-S1. Extensive degenerative changes are noted. Dictated by: Vikas Adam M.D. on 02/16/2020 at 14:22 Approved by: Vikas Adam M.D. on 02/16/2020 at 14:33 MDM Narrative Medical decision making narrative: This is a 69-year-old gentleman who return to ED with severe right-sided low back pain. He was in ED 1 week ago with same chief complain and discharged to home with small dose of tramadol and advised to take Tylenol/Motrin and cool pack for seroma and strict return precautions. Patient had lumbar fusion, revision of laminectomy, and addict pedicle screw from L2-3 thru L5-S1 in 01/06/[address] Cain. Patient developed post-op seroma which was drained. Patient denies fever, chills, vomiting but nausea from severe pain. Patient reports constant ache in throbbing pain in right lumbar region adjacent to postop incision site and rates as 20/10. Patient reports limited range of motion and ambulation due to pain. Postop site on low back without erythema, warmth, drainage. There is small swelling on right lumbar reg ion with fluctuance. Repeated blood test and there is no leukocytosis. ESR was 35 from 45 a week ago. Normal CRP which was < 0.5 and negative procalcitonin of <0.05 with normal lactate of 1.0. Patient is afebrile. No obvious signs of infection per urine test. MRI test was obtained to rule out postop abscess or bleed and it again indicates rim enhancing fluid collection within the subcutaneous fat posteriorly in both site which is worse on right most likely due to benign postoperative fluid collection such as seroma. There is extensive lumbosacral postoperative changes with pedicle screws extending L2 through S1. There is also extensive degenerative changes noted. Patient was medicated a few times with morphine 4 mg, Dilaudid 1 mg and repeated with 0.5 mg IV. Patient was able to ambulate from room 11 and around the nursing carvajal with a walker in stable gait. Dr. Buchanan and Dr. Cain was consulted over the phone with physical findings, lab test and imaging tests. Since patient was able to ambulate without much difficulty with a walker and is able to get help at home and patient is willing to follow up with Dr. Cain out patiently. He was recommended to discharge patient with pain medication and Medrol pack. 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 before discharged to home. Patient discharged to home with Medrol pack to start tomorrow, oxycodone as needed pain medication. Patient advised to use Tylenol and ibuprofen as first- line 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 Patient also discharged to home with omeprazole to protect GI with steroids and and states. Patient was discharged to home with lidocaine patch from previous visit and advised continue to use this medication. Patient advised to follow-up with Dr. Bar and Dr. Cain and patient verbalized understanding and in agreement with the treatment plan after return precautions discussed. <Ale Hu, DO - Last Filed: 02/19/20 19:14> Lab Data Attestation: I reviewed the patient's lab results. Labs: Lab Results 02/16/20 02/16/20 02/16/20 Range/Units 11:30 11:30 11:30 WBC 5.8 (4.5-11.0) X10^3/uL RBC 3.57 L (4.5-5.9) X10^6/uL Hgb 10.6 L (13.5-17.5) g/dL Hct 31.2 L (41-53) % MCV 87.5 (80-100) fL MCH 29.8 (26-34) PG MCHC 34.1 (30-36) % RDW 14.8 (11.6-14.8) % Plt Count 212 (150-400) X10^3/uL Neut % (Auto) 54.9 (50-75) % Lymph % (Auto) 39.3 (25-40) % [place] % (Auto) 4.4 (3-14) % Eos % (Auto) 1.0 L (2-4) % Baso % (Auto) 0.4 (0-2) % Neut # (Auto) 3200 (5165-2863) /uL Lymph # (Auto) 2300 (8931-5318) /uL [place] # (Auto) 300 (0-900) /uL Eos # (Auto) 100 (0-450) /uL Baso # (Auto) 0 (0-100) /uL ESR 35 H (0-15) MM/HR Sodium 132 L (137-145) mmol/L Potassium 4.6 (3.4-5.1) mmol/L Chloride 97 L (98-107) mmol/L Carbon Dioxide 26 (22-32) mmol/L BUN 29 H (9-20) mg/dL Creatinine 1.06 (0.66-1.25) mg/dL Estimated GFR > 60.0 (>60) mL/min BUN/Creatinine Ratio 27.4 H (6-22) Glucose 156 H (80-110) mg/dL Lactate (0.7-2.1) mmol/L Calcium 9.3 (8.4-10.2) mg/dL C-Reactive Protein < 0.5 (<1.0) mg/dL Procalcitonin < 0.05 (<0.5) ng/mL 02/16/20 Range/Units 11:30 WBC (4.5-11.0) X10^3/uL RBC (4.5-5.9) X10^6/uL Hgb (13.5-17.5) g/dL Hct (41-53) % MCV (80-100) fL MCH (26-34) PG MCHC (30-36) % RDW (11.6-14.8) % Plt Count (150-400) X10^3/uL Neut % (Auto) (50-75) % Lymph % (Auto) (25-40) % [place] % (Auto) (3-14) % Eos % (Auto) (2-4) % Baso % (Auto) (0-2) % Neut # (Auto) (2132-5324) /uL Lymph # (Auto) (5415-4415) /uL [place] # (Auto) (0-900) /uL Eos # (Auto) (0-450) /uL Baso # (Auto) (0-100) /uL ESR (0-15) MM/HR Sodium (137-145) mmol/L Potassium (3.4-5.1) mmol/L Chloride (98-107) mmol/L Carbon Dioxide (22-32) mmol/L BUN (9-20) mg/dL Creatinine (0.66-1.25) mg/dL Estimated GFR (>60) mL/min BUN/Creatinine Ratio (6-22) Glucose (80-110) mg/dL Lactate 1.0 (0.7-2.1) mmol/L Calcium (8.4-10.2) mg/dL C-Reactive Protein (<1.0) mg/dL Procalcitonin (<0.5) ng/mL Urine Dip Bedside Urine Glucose Negative Bedside Urine Bilirubin - Negative Bedside Urine Ketone - Negative Urine Specific [place] 1.020 Bedside Urine Occult Blood - Negative Bedside Urine pH 6.5 Bedside Urine Protein +++ 300 Bedside Urine Urobilinogen - Negative Bedside Urine Nitrite - Negative Bedside Urine Leukocytes - Negative Esterase MDM Narrative Medical decision making narrative: Patient case was discussed. MRI was ordered. ESR is elevated, CRP is not. Patient ambulated through department several times and was visualized by myself. Dr. Buchanan and patient's personal surgeon Dr. Cain were consulted and will follow up with patient for fluid collection but not highly suspicious of for infection at this time. Discharge Plan Departure Patient Disposition: Home Clinical Impression: Seroma Low back pain Qualifiers: Chronicity: unspecified Back pain laterality: right Sciatica presence: without sciatica Qualified Code(s): M54.5 - Low back pain Discharge Date/Time: 02/16/20 18:18 Instructions: DI for Low Back Pain Activity Restrictions/Additional Instructions: You have been diagnosed with [right lumbar pain. Lab test and MRI tests are reassuring today. There is no indication of significant infection. MRI test without much changes from [address] test[address] You were medicated with several doses of narcotic IV/oral medications while in ED and prednisone 40 mg while in ED.]. What to do: *Take your medications as directed. Please start your Medrol pack tomorrow titrating dose. You can take Tylenol 650 mg 3 to 4 times a day as needed for discomfort. You should have lidocaine patch from previous visit. Please use this. Ibuprofen 400 mg up to 3 times a day as needed for pain and please take this with food to decrease GI upset and to prevent stomach ulcer. Oxycodone 1 tab up to 3 times a day as needed for severe pain and this is narcotic medication so please take precaution not driving, drinking alcohol or operating heavy equipments. Please take omeprazole daily to protect your stomach while your taking steroids and ibuprofen/Motrin. Oxycodone, Medrol pack, omeprazole have been transmitted to [facility]. *Follow up with your primary care provider/Dr. Cain in 2-3 days, call for an appointment. Please contact [facility]opedic office tomorrow. Let them know you were seen in the ED and that we asked you to be seen in follow up. *Return to ED if you have any new, worsening, or concerning symptoms, such as [severe pain, weakness/tingling/numbness to lower extremities, fever/redness/ warmth, drainage from her back, incontinence, numbness to her groin or any acute concerns]. Prescriptions: New methylprednisolone [Medrol (Patric)] 4 mg tablets,dose pack See Rx Instructions .ROUTE .COMPLEX Qty: 21 RF: 0 omeprazole 20 mg capsule,delayed release(DR/EC) 20 mg PO DAILY 14 Days Qty: 14 RF: 0 oxycodone-acetaminophen [Percocet] 5-325 mg tablet 1 tab PO Q6H PRN (Reason: pain) Qty: 14 RF: 0 No Action amlodipine 10 mg tablet See Rx Instructions .ROUTE .COMPLEX Qty: 90 RF: 1 glipizide 5 mg tablet See Rx Instructions .ROUTE .COMPLEX Qty: 90 RF: 1 isosorbide mononitrate 60 mg tablet extended release 24 hr See Rx Instructions .ROUTE .COMPLEX Qty: 90 RF: 1 oxybutynin chloride 15 mg tablet extended release 24hr See Rx Instructions .ROUTE .COMPLEX Qty: 90 RF: 1 duloxetine 30 mg capsule,delayed release(DR/EC) See Rx Instructions .ROUTE .COMPLEX Qty: 90 RF: 1 gabapentin 600 mg tablet See Rx Instructions .ROUTE .COMPLEX Qty: 180 RF: 1 atorvastatin 20 mg tablet 20 mg PO DAILY RF: 0 Glucose: Test Strips 1 strip miscellaneous DIRECTED RF: 0 metoprolol succinate 100 mg tablet extended release 24 hr 50 mg PO BID RF: 0 lidocaine 5 % adhesive patch,medicated 1 patch TOP DAILY Qty: 30 RF: 0 tramadol 50 mg tablet 50 mg PO BID PRN (Reason: pain) Qty: 7 RF: 0 tamsulosin 0.4 mg capsule 0.8 mg PO QPM RF: 0 acetaminophen 325 mg Tablet 975 mg PO TID Qty: 40 RF: 0 hydroxyzine pamoate 25 mg Capsule 25 mg PO Q4HR PRN (Reason: Nausea And Vomiting) Qty: 20 RF: 0 acetaminophen 500 mg capsule 500 mg PO Q6H PRN (Reason: pain) Qty: 30 RF: 0 Referrals: Lashonda Cain MD [Physician] - Cesar Bar DO [Primary Care Provider] -
[2020-02-16 11:46] LABS: Add Manual Diff / Slide Review NO; Basophils Absolute Auto 0 /uL (0-100); Basophils Percent Auto 0.4 % (0-2); Eosinophils Absolute Auto 100 /uL (0-450); Hematocrit 31.2 % (41-53); Hemoglobin 10.6 g/dL (13.5-17.5); Lymphocytes Absolute Auto 2300 /uL (1100-4500); Lymphocytes Percent Auto 39.3 % (25-40); Mean Corpuscular HGB Conc 34.1 % (30-36); Mean Corpuscular Hemoglobin 29.8 PG (26-34); Mean Corpuscular Volume 87.5 fL (80-100); Monocytes Absolute Auto 300 /uL (0-900); Monocytes Percent Auto 4.4 % (3-14); Neutrophils Absolute Auto 3200 /uL (1500-7000); Neutrophils Percent Auto 54.9 % (50-75); Platelet Count 212 X10^3/uL (150-400); Red Blood Cell Count 3.57 X10^6/uL (4.5-5.9); Red Cell Distribution Width 14.8 % (11.6-14.8); White Blood Cell Count 5.8 X10^3/uL (4.5-11.0)
--- NOTE | 2020-02-16 11:48 | DI.MRI.S_ITS ---
PROCEDURE: MR LUMBAR SPINE WO/W CON INDICATIONS: s/p lumbar fusion surgery end of Dec 31, pain and swelling TECHNIQUE: Noncontrast sagittal T1 spin echo and T2 fast spin echo, sagittal STIR, axial T1 and T2 fast spin echo through the lumbar spine. In cases with scoliosis, additional coronal T2 fast spin echo may be performed. After the administration of contrast, sagittal and axial T1 spin echo with fat saturation through the lumbar spine. COMPARISON: [facility], CT, CT LUMBAR SPINE WO CON, 07/09/2019, 14:31. [facility], CR, XR LUMBAR SPINE 2-3V, 01/06/2020, 9:22. [facility], CT, CT ABDOMEN PELVIS W CON, 02/10/2020, 18:15. FINDINGS: Image quality: Excellent. Alignment and curvature: There is normal bony alignment. Marrow: Marrow is of normal overall signal. Scattered foci are seen, which are hyperintense on T1-weighted and T2-weighted imaging, which are most consistent with benign vertebral body hemangiomas. No acute vertebral body compression fractures. No suspicious marrow enhancement. Spinal cord: Conus medullaris terminates at the L1 level. Visualized spinal cord demonstrates normal signal, without suspicious enhancement. Paraspinous soft tissues: No paravertebral masses are seen. Rim-enhancing fluid collections are seen within the postoperative subcutaneous fat on both sides. The larger of these is seen on the right side and measures 11.5 cm craniocaudal, with a maximum axial extent of 1.1 x 3.4 cm. There is a smaller left-sided rim-enhancing fluid collection seen that measures 5.7 cm craniocaudal by 1.8 x 0.5 cm in greatest axial dimension. Postoperative changes are seen, with bilateral pedicle screws seen from L2-S1. The L2 screws are superiorly angulated, with the tips seen near the superior endplates, which are better seen on the recent prior CT examination. Vertical fixation rods are seen. Disc spacers are seen at the postoperative region. There is associated susceptibility artifact. There has been removal of portions of the posterior elements. T12-L1: No significant abnormality is seen. L1-L2: The disc height and disc signal are relatively well-preserved. Mild generalized disc bulge is seen. Moderate facet joint hypertrophy is seen. Moderate bilateral neural foraminal narrowing is seen. Mild central canal narrowing is seen. These degenerative changes appear more prominent than on the prior CT. L2-L3: Moderate to severe loss of disc height is seen. Moderate generalized disc bulge is seen. Moderate facet joint hypertrophy is seen. Moderate bilateral neural foraminal narrowing is seen. Moderate central canal narrowing is seen. L3-L4: Moderate loss of disc height is seen. Mild to moderate disc bulge is seen. There is moderate right-sided and at least moderate left-sided neural foraminal narrowing seen. The central canal is widely patent. L4-L5: Moderate loss of disc height is seen. Moderate disc bulge is seen, with a mild central disc protrusion. Moderate bilateral neural foraminal narrowing is seen. The central canal is widely patent. L5-S1: Mild to moderate loss of disc height and disc signal are seen. Moderate disc seen, which is eccentric the right. The central disc protrusion, as on series 5 image 32. Moderate bilateral neural foraminal narrowing is seen. Moderate central canal narrowing is seen. IMPRESSION: Rim-enhancing fluid collections can be seen within the subcutaneous fat posteriorly on both sides, right larger than left and most likely be related to benign postoperative fluid collections such as seromas. Differential diagnosis would also include abscess. Please correlate with patient presentation, laboratory values, and physical examination findings. Extensive lumbosacral postoperative changes are seen, with pedicle screws extending L2-S1. Extensive degenerative changes are noted. Dictated by: Vikas Adam M.D. on 02/16/2020 at 14:22 Approved by: Vikas Adam M.D. on 02/16/2020 at 14:33
[2020-02-16 12:06] LABS: BUN Creatinine Ratio 27.4 (6-22); Blood Urea Nitrogen 29 mg/dL (9-20); Calcium 9.3 mg/dL (8.4-10.2); Carbon Dioxide 26 mmol/L (22-32); Chloride 97 mmol/L (98-107); Estimated Glomerular Filt Rate > 60.0 mL/min (>60); Glucose 156 mg/dL (80-110); HEMOLYSIS < 15 (0-50); Potassium 4.6 mmol/L (3.4-5.1); Sodium 132 mmol/L (137-145)
[2020-02-16 12:07] LABS: C-Reactive Protein Quant < 0.5 mg/dL (<1.0)
[2020-02-16] MEDS: MORPHINE 4 MG/ML INJ IV (12:10)
[2020-02-16] MEDS: ONDANSETRON 4 MG/2 ML INJ IV (12:10)
[2020-02-16 12:14] LABS: Erythrocyte Sedimentation Rate 35 MM/HR (0-15)
[2020-02-16 12:19] LABS: Procalcitonin < 0.05 ng/mL (<0.5)
[2020-02-16] MEDS: SODIUM CHLORIDE 0.9% 500 ML 1000 ML IV (12:59)
[2020-02-16] MEDS: HYDROMORPHONE 1 MG INJ IV (12:59)
[2020-02-16] MEDS: HYDROMORPHONE 0.5 MG INJ IV (16:49)
--- NOTE | 2020-02-16 17:03 | PC.NURSE ---
tolerated well, with steady gait.
[2020-02-16] MEDS: OXYCODONE/ACETAMINOPHEN 5/325 TABLET 1 TAB PO (18:02)
[2020-02-16] MEDS: predniSONE 20 MG TABLET 40 MG PO (18:02)
== END 2020-02-16 18:18 | disposition home or self-care (01) ==
PROVIDERS: Emergency Provider Nurse Practitioner Family; PCP Family Medicine
DX: L76.34 Postprocedural seroma of skin and subcutaneous tissue following other procedure (principal); M54.5 Low back pain
CPT/HCPCS: 36415; 72158; 80048; 81003; 83605; 84145; 85025; 85651; 86140; 96361; 96374; 96375; 96376; 99284; J1170; J2270; J2405

== ENCOUNTER → 2020-02-23 06:51 | Outpatient (CLI) | payer MEDICARE, OTHER, SELFPAY ==
[2020-01-06 18:24] VITALS: BMI 23.6
[2020-02-23 08:08] LABS: Hematocrit 32.7 % (41-53); Hemoglobin 11.1 g/dL (13.5-17.5); Mean Corpuscular Hemoglobin 30.5 PG (26-34); Mean Corpuscular Volume 89.8 fL (80-100); Platelet Count 209 X10^3/uL (150-400); Red Blood Cell Count 3.64 X10^6/uL (4.5-5.9); Red Cell Distribution Width 15.8 % (11.6-14.8); White Blood Cell Count 9.1 X10^3/uL (4.5-11.0)
[2020-02-23 08:28] LABS: Alanine Aminotransferase 27 IU/L (<50); Albumin 4.3 g/dL (3.5-5.0); Albumin Globulin Ratio 1.4 (1.0-2.8); Alkaline Phosphatase 161 U/L (38-126); Aspartate Aminotransferase 32 IU/L (17-59); BUN Creatinine Ratio 20.9 (6-22); Bilirubin Total 0.4 mg/dL (0.2-1.3); Blood Urea Nitrogen 23 mg/dL (9-20); Calcium 9.2 mg/dL (8.4-10.2); Carbon Dioxide 29 mmol/L (22-32); Chloride 100 mmol/L (98-107); Cholesterol 138 mg/dL (140-199); Estimated Glomerular Filt Rate > 60.0 mL/min (>60); Globulin 3.1 g/dL (1.7-4.1); Glucose 154 mg/dL (80-110); HDL Cholesterol 70 mg/dL (40-60); HEMOLYSIS < 15 (0-50); LDL Cholesterol Calculated 50 mg/dL (<100); Potassium 4.2 mmol/L (3.4-5.1); Sodium 137 mmol/L (137-145); Total Protein 7.4 g/dL (6.3-8.2); Triglycerides 89 mg/dL (35-150)
[2020-02-23 08:30] LABS: Hemoglobin A1C% w Est Avg Glu 6.1 % (4.0-6.0)
[2020-02-23 08:43] LABS: Vitamin D 25 Hydroxy (D3) 26.3 ng/mL (30.0-100.0)
[2020-02-23 08:57] LABS: TSH w/ Reflex to FT4 3.62 uIU/mL (0.47-4.68)
[2020-02-23 08:58] LABS: Prostate Specific Antigen 1.28 ng/mL (0.10-4.00)
[2020-02-23 09:05] LABS: Neutrophils Absolute Manual 5369 /uL (3000-5900); Total Cells Counted 100
[2020-02-23 09:06] LABS: RBC Morphology Normal Morphology
== END ==
PROVIDERS: PCP Family Medicine; Referring Provider Family Medicine; Visit Provider Family Medicine
DX: Z12.5 Encounter for screening for malignant neoplasm of prostate (principal); Z13.29 Encounter for screening for other suspected endocrine disorder; E11.9 Type 2 diabetes mellitus without complications; E55.9 Vitamin D deficiency, unspecified
CPT/HCPCS: 36415; 80053; 80061; 82306; 83036; 84153; 84443; 85025; G0103

== ENCOUNTER → 2020-05-04 11:24 | Outpatient (CLI) | payer MEDICARE, OTHER, SELFPAY ==
[2020-01-06 18:24] VITALS: BMI 23.6
--- NOTE | 2020-05-04 11:31 | DI.CT.S_ITS ---
PROCEDURE: CT LUMBAR SPINE WO CON INDICATIONS: SPINAL STENOSIS TECHNIQUE: Noncontrast 3 mm thick sections acquired from the T12 level to the sacrum. Sagittal and coronal reformats were constructed. For radiation dose reduction, the following was used: automated exposure control. COMPARISON: [facility], CR, XR LUMBAR SPINE 2-3V, 01/06/2020, 9:22. FINDINGS: There are postsurgical changes of L2-S1 posterior fixation by means of bilateral rods and pedicle screws, along with interbody devices at the operative levels. There is no abnormal lucency surrounding the hardware to indicate loosening. Hardware is intact with no evidence of fracture. There is otherwise no evidence of an acute complicating hardware feature. Vertebral body heights are normal. There is no listhesis. There straightening of usual lordosis at the operative levels. Prevertebral and paraspinous soft tissues are within normal limits. T12-L1: No spinal canal or neural foraminal stenosis. No significant degenerative changes. L1-L2: Calcified thickening of the ligamentum flavum combined with trace foraminal disc bulge a to produce mild bilateral neural foraminal stenosis. L2-L3: Disc bulge and a superimposed broad-based posterior disc protrusion flatten and indent the ventral thecal sac. There is no osseous spinal canal stenosis. Foraminal components of the disc bulge combined with neural foraminal height loss to produce moderate bilateral foraminal stenosis. L3-L4: Disc bulge flattens the ventral thecal sac. There is no osseous spinal canal stenosis. Posterior osteophytic ridging and calcified disc material are present within the neural foramina bilaterally, contribute to mild left and moderate neural foraminal stenosis. L4-L5: Shallow calcified disc bulge and posterior osteophytic ridging flatten the ventral thecal sac. The spinal canal is widely decompressed by laminectomies. Foraminal components of the disc bulge and facet hypertrophy combine to produce mild neuroforaminal narrowing on the right. There is no neural foraminal stenosis on the left, status post wide partial facetectomy. L5-S1: Diffuse disc bulge and a superimposed broad-based posterior disc protrusion with calcified annulus flattens the ventral thecal sac. There is no definite evidence of significant there appears to be at least mild subarticular zone stenosis bilaterally. Foraminal components of the disc bulge and facet hypertrophy combine to produce mild bilateral neural foraminal stenosis. IMPRESSION: 1. Status post L2-S1 posterior fixation with no acute pelvic and hardware feature. No definite evidence of osseous spinal canal stenosis, although there is probable at least mild subarticular zone stenosis at L5-S1 due to disc material. Very degrees of neural foraminal stenosis up to moderate. Dictated by: Keith Raya M.D. on 05/04/2020 at 12:45 Approved by: Keith Raya M.D. on 05/04/2020 at 12:53
== END ==
PROVIDERS: PCP Family Medicine; Referring Provider Orthopaedic Surgery Orthopaedic Surgery of the Spine; Visit Provider Orthopaedic Surgery Orthopaedic Surgery of the Spine
DX: M48.061 Spinal stenosis, lumbar region without neurogenic claudication (principal); M51.27 Other intervertebral disc displacement, lumbosacral region; M51.26 Other intervertebral disc displacement, lumbar region; Z98.1 Arthrodesis status
CPT/HCPCS: 72131

== ENCOUNTER → 2020-06-10 06:31 | Outpatient (CLI) | payer MEDICARE, OTHER, SELFPAY ==
[2020-01-06 18:24] VITALS: BMI 23.6
[2020-06-10 08:05] LABS: Hemoglobin A1C% w Est Avg Glu 6.5 % (4.0-6.0)
[2020-06-10 08:14] LABS: Alanine Aminotransferase 34 IU/L (<50); Albumin 4.2 g/dL (3.5-5.0); Albumin Globulin Ratio 1.6 (1.0-2.8); Alkaline Phosphatase 97 U/L (38-126); Aspartate Aminotransferase 55 IU/L (17-59); BUN Creatinine Ratio 27.6 (6-22); Bilirubin Total 0.7 mg/dL (0.2-1.3); Blood Urea Nitrogen 35 mg/dL (9-20); Calcium 9.5 mg/dL (8.4-10.2); Carbon Dioxide 28 mmol/L (22-32); Chloride 102 mmol/L (98-107); Cholesterol 114 mg/dL (140-199); Estimated Glomerular Filt Rate 56.6 mL/min (>60); Globulin 2.7 g/dL (1.7-4.1); Glucose 149 mg/dL (80-110); HDL Cholesterol 64 mg/dL (40-60); HEMOLYSIS < 15 (0-50); LDL Cholesterol Calculated 39 mg/dL (<100); Sodium 136 mmol/L (137-145); Total Protein 6.9 g/dL (6.3-8.2); Triglycerides 55 mg/dL (35-150)
== END ==
PROVIDERS: PCP Family Medicine; Referring Provider Family Medicine; Visit Provider Family Medicine
DX: E11.9 Type 2 diabetes mellitus without complications (principal); I10 Essential (primary) hypertension; Z51.81 Encounter for therapeutic drug level monitoring
CPT/HCPCS: 36415; 80053; 80061; 83036

== ENCOUNTER 2020-08-23 07:15 | Emergency (ER) | payer MEDICARE, OTHER, SELFPAY ==
[2020-01-06 18:24] VITALS: BMI 23.6
[2020-08-23 07:38] VITALS: BP 153/82; PULSE 77; RESP 15; TEMP 36.8; O2SAT 96; BMI 23.7
--- NOTE | 2020-08-23 07:48 | DI.RAD.S_ITS ---
PROCEDURE: XR FOOT RT MIN 3V INDICATIONS: foot and ankle pain TECHNIQUE: 3 views of the foot were acquired. COMPARISON: [facility] [place], [place], XR ANKLE 3+ VIEWS RIGHT, 01/28/2020, 9:20. [facility], CR, XR ANKLE RT MIN 3V, 08/23/2020, 8:11. FINDINGS: Bones: No acute fractures or dislocations. 2 small corticated ossicles are demonstrated distal to the medial and lateral malleoli compatible with prior avulsion injuries. 2 surgical screws are redemonstrated within the visualized distal tibia anteriorly. There is mild to moderate degeneration of the tibiotalar joint. Mild degeneration is demonstrated at the 1st metatarsophalangeal joint. No suspicious bony lesions. Soft tissues: There is a probable small tibiotalar joint effusion. Achilles tendon intact. Scattered vascular calcifications are noted. There is mild soft tissue swelling dorsally in the forefoot. Periarticular soft tissue swelling is also demonstrated at the ankle. IMPRESSION: 1. No definite acute fracture or dislocation. 2. 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 3. Probable small tibiotalar joint effusion. Dictated by: Leena Cadena M.D. on 08/23/2020 at 8:56 Approved by: Leena Cadena M.D. on 08/23/2020 at 8:59
--- NOTE | 2020-08-23 07:48 | DI.RAD.S_ITS ---
PROCEDURE: XR ANKLE RT MIN 3V INDICATIONS: foot and ankle pain TECHNIQUE: 3 views of the ankle were acquired. COMPARISON: [facility] With [facility], , ANKLE 3 VIEWS RIGHT, 09/04/2016, 13:27. FINDINGS: Bones: No acute fractures or dislocations. There are 2 surgical screws redemonstrated within the anterior tibia distally. These appear intact and unchanged in alignment without new suspicious lucencies. Ankle mortise is normally aligned. There is mild to moderate degeneration along the tibiotalar joint with osteophytosis and subchondral sclerosis. No suspicious bony lesions. Soft tissues: There is periarticular soft tissue swelling. Achilles tendon appears intact. IMPRESSION: 1. No acute fracture or dislocation. 2. Mley-fk-xlufeiwu degeneration along the tibiotalar joint. Dictated by: Leena Cadena M.D. on 08/23/2020 at 8:52 Approved by: Leena Cadena M.D. on 08/23/2020 at 8:56
--- NOTE | 2020-08-23 08:45 | ED_ITS ---
HPI - Extremity Injury (Lower) General Chief Complaint: Extremity Injury, Lower Stated Complaint: 'ankle has blown out again' can't walk/sleep Time Seen by Provider: 08/23/20 08:19 Source: patient Mode of arrival: Wheelchair Limitations: no limitations History of Present Illness HPI Narrative: No known injury. Patient has chronic right ankle foot pain since December 2019. Patient states the ankle foot was strained after his low back surgery. Since then has had problems with off and on swelling of the ankle and foot. Uses a walker at home. Getting physical therapy for lower back as well as ankle. dr gutierrez was [facility] and continues to follow him. No immediate orthopedic surgeon following for the ankle. Surgery was done at [facility] years ago. Patient drove himself here Related Data Home Medications Medication Instructions Recorded Confirmed Glucose: Test Strips 1 strip MISCELLANEOUS DIRECTED 04/29/18 08/10/20 atorvastatin 20 mg tablet 20 mg PO DAILY 04/03/19 08/10/20 metoprolol succinate 100 mg 50 mg PO BID tab 04/03/19 08/10/20 tablet,extended release 24 hr aspirin 81 mg tablet,delayed 81 mg PO DAILY 05/20/20 08/10/20 release Previous Rx's Medication Instructions Recorded oxybutynin chloride 15 mg See Rx Instructions .ROUTE 12/07/19 tablet,extended release 24 hr .COMPLEX #90 tablet acetaminophen 975 mg PO TID #40 tab 01/08/20 hydroxyzine pamoate 25 mg PO Q4HR PRN #20 cap 01/10/20 lidocaine 1 patch TOP DAILY #30 each 02/10/20 duloxetine 30 mg capsule,delayed See Rx Instructions .ROUTE 05/19/20 release .COMPLEX #90 capsule amlodipine 10 mg tablet See Rx Instructions .ROUTE 06/08/20 .COMPLEX #90 tablet glipizide 5 mg tablet See Rx Instructions .ROUTE 06/08/20 .COMPLEX #90 tablet isosorbide mononitrate 60 mg See Rx Instructions .ROUTE 06/08/20 tablet,extended release 24 hr .COMPLEX #90 tablet tamsulosin 0.4 mg capsule 0.8 mg PO QPM #90 cap 06/08/20 gabapentin 600 mg tablet See Rx Instructions .ROUTE 07/04/20 .COMPLEX #540 tab cyclobenzaprine 10 mg tablet 10 mg PO BID PRN #60 tab 07/07/20 tadalafil 10 mg tablet 10 mg PO DAILY PRN #15 tab 08/16/20 hydrocodone-acetaminophen [[place]] 1 tab PO Q8H PRN #14 tab 08/23/20 ondansetron 4 mg PO Q8H PRN #10 tab 08/23/20 Allergies Allergy/AdvReac Type Severity Reaction Status Date / Time latex Allergy Mild RASH/ITCH Verified 08/10/20 07:51 (tape) pollen extracts Allergy Mild SINUS AND Verified 08/10/20 07:51 [POLLEN EXTRACTS] CHEST CONGESTION adhesive tape [ADHESIVE TAPE] AdvReac Unknown ITCHY Verified 08/10/20 07:51 Review of Systems Review of Systems Narrative: GENERAL: Denies chills, fatigue, malaise, fever, sweats. HEENT: Denies sinus pain, ear pain, sore throat, difficulty swallowing RESPIRATORY: Denies dyspnea, cough CARDIOVASCULAR: Denies chest pain, palpitations, edema, GASTROINTESTINAL: Denies nausea, vomiting, abdominal pain, diarrhea, constipation, melena. : Denies dysuria, frequency, hematuria MUSCULOSKELETAL: denies muscle complains of bony pain SKIN: Denies rash, skin lesions NEUROLOGIC: Denies weakness, headache, numbness, change in speech, confusion PSYCHIATRIC: No SI or HI or hallucinations ROS Unobtainable: All systems reviewed & are unremarkable except as noted in HPI and below Patient History Medical History Ankle fracture (Acute) Anxiety (Chronic Unknown) Aortic stenosis (Chronic) Ascending aorta dilatation (Acute) Bilateral carotid artery disease (Acute ~09/2018) Bilateral carpal tunnel syndrome (Acute) BPH (benign prostatic hyperplasia) (Chronic Unknown) BPH w urinary obs/LUTS (Acute) Cervical somatic dysfunction (Acute) Chronic back pain (Acute) Chronic kidney disease (Acute) Chronic pain syndrome (Chronic Unknown) Chronic renal insufficiency (Chronic Unknown) Coronary artery disease (Suspected Unknown) Depression (Chronic Unknown) Diabetes (Chronic Unknown) Diabetic neuropathy associated with type 2 diabetes mellitus (Acute) Edema of left lower extremity (Acute) Enlarged prostate (Acute) Erectile dysfunction (Acute) Erectile dysfunction (Acute) GERD (gastroesophageal reflux disease) (Chronic Unknown) History of ETOH abuse (Resolved Unknown) Hyperlipemia (Chronic Unknown) Hypertension (Chronic Unknown) Leg cramps, sleep related (Acute) Low back pain (Chronic Unknown) Lumbar back pain with radiculopathy affecting right lower extremity (Acute) Moderate right ankle sprain (Acute) Nonallopathic lesion of lumbar region, not elsewhere classified (Acute) Pancreatitis (Acute) Pelvic somatic dysfunction (Acute) Peripheral neuropathy (Chronic Unknown) Rheumatoid arthritis (Chronic Unknown) Rheumatoid arthritis (Acute) Sacral region somatic dysfunction (Acute) Salivary gland swelling (Acute) Seasonal allergic rhinitis (Acute) Seroma after procedure (Acute) Somatic dysfunction of right lower extremity (Acute) Stiff neck (Acute) Urine retention (Acute) Surgical History History of back surgery (Resolved ~2012) History of surgery (Acute) History of surgical removal of skin lesion (Acute) Hx of cholecystectomy (Acute) S/P cervical spinal fusion (Acute) Status post hernia repair Status post knee surgery Vasectomy status (Acute) Family History Mother Stroke Father Cancer Social History household members: none Smoking Status: Former smoker alcohol intake: current Smoking Status: Former smoker alcohol intake frequency: holidays/special occasions only Alcohol type: beer and wine Substance Use Type: marijuana Exam Narrative Exam Narrative: GENERAL: patient appears stated age. Well-nourished, well- developed patient, in no distress, not toxic not dyspneic HEAD: Normocephalic. EXTREMITIES: Examination right lower extremity. Nontender proximal tib-fib. There is circumferential edema of the ankle and top of the foot. This is chronic. No skin breakdown. No erythema. No induration. Light touch intact to foot and toes. Diffuse tenderness of the ankle. Limited range of motion due to pain. Wiggles toes. Patient uses a walker. NEURO: AOx4. SKIN: Warm and dry PSYCH: Not anxious, is cooperative Initial Vital Signs Initial Vital Signs: Vital Signs Temperature 98.2 F 08/23/20 07:38 Pulse Rate 77 08/23/20 07:38 Respiratory Rate 15 08/23/20 07:38 Blood Pressure 153/82 H 08/23/20 07:38 Pulse Oximetry 96 08/23/20 07:38 Procedures Orthopedic Splinting/Casting Injury #1: Side: right Lower Extremity Injury Location: ankle Lower Extremity Immobilizer: AirCast Other Orthopedic Equipment: crutches Post splinting neuro exam: intact Post splinting vascular exam: intact Placed by: Nursing Course Orders Ordered: ED Orders 08/23/20 07:48 XR ankle RT min 3V Stat XR foot RT min 3V Stat Reevaluation(s) Reevaluation #1: Reviewed x-rays with patient. Needs to follow up with Orthopedics. Referral given. Crutches and splint for ankle given. Patient drove here. Reviewed renal function and avoiding NSAIDs. Time: 09:07 Vital Signs Vital signs: Vital Signs - 8 hr 08/23/20 07:38 Temperature 98.2 F Pulse Rate 77 Respiratory Rate 15 Blood Pressure 153/82 H Pulse Oximetry 96 MDM - Extremity Injury (Lower) Imaging Data X-ray right ankle: Radiologist's Impression: [address] [address] XRay Report Signed Patient: Hector Harper EMR#: [id number] : 2Acct:[id number] Age/Sex: 69 / MDate of Service: 08/23/20 Loc: ED Accession Number: [id number] Procedure: XR ankle RT min 3V Ordering Provider: Ray Bruno MD PROCEDURE: XR ANKLE RT MIN 3V INDICATIONS: foot and ankle pain TECHNIQUE: 3 views of the ankle were acquired. COMPARISON: [facility], , ANKLE 3 VIEWS RIGHT, 09/04/2016, 13:27. FINDINGS: Bones: No acute fractures or dislocations. There are 2 surgical screws redemonstrated within the anterior tibia distally. These appear intact and unchanged in alignment without new suspicious lucencies. Ankle mortise is normally aligned. There is mild to moderate degeneration along the tibiotalar joint with osteophytosis and subchondral sclerosis. No suspicious bony lesions. Soft tissues: There is periarticular soft tissue swelling. Achilles tendon appears intact. IMPRESSION: 1. No acute fracture or dislocation. 2. Mgdl-hg-gzgppawi degeneration along the tibiotalar joint. Dictated by: Leena Cadena M.D. on 08/23/2020 at 8:52 Approved by: Leena Cadena M.D. on 08/23/2020 at 8:56 X-ray right foot: Radiologist's Impression: [address] [address] XRay Report Signed Patient: Hector Harper EMR#: [id number] : 2Acct:[id number] Age/Sex: 69 / MDate of Service: 08/23/20 Loc: ED Accession Number: [id number] Procedure: XR foot RT min 3V Ordering Provider: Ray Bruno MD PROCEDURE: XR FOOT RT MIN 3V INDICATIONS: foot and ankle pain TECHNIQUE: 3 views of the foot were acquired. COMPARISON: [facility], CR, XR ANKLE 3+ VIEWS RIGHT, 01/28/2020, 9:20. [facility], CR, XR ANKLE RT MIN 3V, 08/23/2020, 8:11. FINDINGS: Bones: No acute fractures or dislocations. 2 small corticated ossicles are demonstrated distal to the medial and lateral malleoli compatible with prior avulsion injuries. 2 surgical screws are redemonstrated within the visualized distal tibia anteriorly. There is mild to moderate degeneration of the tibiotalar joint. Mild degeneration is demonstrated at the 1st metatarsophalangeal joint. No suspicious bony lesions. Soft tissues: There is a probable small tibiotalar joint effusion. Achilles tendon intact. Scattered vascular calcifications are noted. There is mild soft tissue swelling dorsally in the forefoot. Periarticular soft tissue swelling is also demonstrated at the ankle. IMPRESSION: 1. No definite acute fracture or dislocation. 2. 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 3. Probable small tibiotalar joint effusion. Dictated by: Leena Cadena M.D. on 08/23/2020 at 8:56 Approved by: Leena Cadena M.D. on 08/23/2020 at 8:59 [facility] Narrative Medical decision making narrative: Appropriate for discharge home. Patient does have physical therapy as well as primary care following for his chronic pain. As well as [facility]. Not toxic Discharge Plan Departure Patient Disposition: Home Clinical Impression: Ankle pain, chronic Qualifiers: Laterality: right Qualified Code(s): M25.571 - Pain in right ankle and joints of right foot Discharge Date/Time: 08/23/20 09:50 Instructions: How to Use Crutches, DI for Ankle Pain Activity Restrictions/Additional Instructions: Call provide orthopedic office today for office recheck of your ankle. Continue physical therapy. No operating machinery with prescribed pain medication. Use splint and crutches when ambulating/walking. Return if worse or if any questions or concerns. Prescriptions: New hydrocodone-acetaminophen [[place]] 7.5-325 mg tablet 1 tab PO Q8H PRN (Reason: pain) Qty: 14 RF: 0 ondansetron 4 mg tablet,disintegrating 4 mg PO Q8H PRN (Reason: nausea and vomiting) Qty: 10 RF: 0 No Action oxybutynin chloride 15 mg tablet extended release 24hr See Rx Instructions .ROUTE .COMPLEX Qty: 90 RF: 1 duloxetine 30 mg capsule,delayed release(DR/EC) See Rx Instructions .ROUTE .COMPLEX Qty: 90 RF: 0 aspirin [Adult Aspirin Regimen] 81 mg tablet,delayed release (DR/EC) 81 mg PO DAILY RF: 0 amlodipine 10 mg tablet See Rx Instructions .ROUTE .COMPLEX Qty: 90 RF: 1 isosorbide mononitrate 60 mg tablet extended release 24 hr See Rx Instructions .ROUTE .COMPLEX Qty: 90 RF: 1 glipizide 5 mg tablet See Rx Instructions .ROUTE .COMPLEX Qty: 90 RF: 1 tamsulosin 0.4 mg capsule 0.8 mg PO QPM Qty: 90 RF: 1 gabapentin 600 mg tablet See Rx Instructions .ROUTE .COMPLEX Qty: 540 RF: 1 tadalafil 10 mg tablet 10 mg PO DAILY PRN (Reason: sexual activity) Qty: 15 RF: 0 atorvastatin 20 mg tablet 20 mg PO DAILY RF: 0 cyclobenzaprine 10 mg tablet 10 mg PO BID PRN (Reason: muscle spasm) Qty: 60 RF: 0 Glucose: Test Strips 1 strip miscellaneous DIRECTED RF: 0 metoprolol succinate 100 mg tablet extended release 24 hr 50 mg PO BID RF: 0 lidocaine 5 % adhesive patch,medicated 1 patch TOP DAILY Qty: 30 RF: 0 acetaminophen 325 mg Tablet 975 mg PO TID Qty: 40 RF: 0 hydroxyzine pamoate 25 mg Capsule 25 mg PO Q4HR PRN (Reason: Nausea And Vomiting) Qty: 20 RF: 0 Referrals: Darion Lofton DPM [Physician] - Cesar Bar DO [Primary Care Provider] -
[2020-08-23 09:40] VITALS: BP 168/76; PULSE 79; RESP 16; O2SAT 97
== END 2020-08-23 09:50 | disposition home or self-care (01) ==
PROVIDERS: Emergency Provider Emergency Medicine; PCP Family Medicine
DX: M25.571 Pain in right ankle and joints of right foot (principal)
CPT/HCPCS: 73610; 73630; 99283

== ENCOUNTER → 2020-09-02 08:02 | Outpatient (CLI) | payer MEDICARE, OTHER, SELFPAY ==
[2020-01-06 18:24] VITALS: BMI 23.6
--- NOTE | 2020-09-02 08:04 | DI.MRI.S_ITS ---
PROCEDURE: MR FOOT RT WO CON INDICATIONS: pain TECHNIQUE: Noncontrast sagittal T1 spin echo and T2 fast spin echo with fat saturation, long-axis T1 spin echo and T2 fast spin echo with fat saturation, short-axis T1 spin echo and T2 fast spin echo with fat saturation through the forefoot. COMPARISON: [facility], CR, XR ANKLE RT MIN 3V, 08/23/2020, 8:11. FINDINGS: Image quality: Diagnostic. Susceptibility artifacts are noted in distal tibial shaft from surgical hardware. Bones and joints: Significant susceptibility artifacts are noted in distal tibial shaft partially limits evaluation. Osteoarthritic changes are noted in tibiotalar joint and subtalar joint. Edema is likely present in visualized distal tibia and fibular as well as adjacent talus. No discrete fracture line is seen. Suggestion of small osteochondral lesion is noted involving medial periphery of talar dome weight-bearing portion measures 1.2 x 0.5 x 0.5 cm in size. There is also suggestion of osteochondral lesion in lateral periphery of talar dome weight-bearing portion measures 6 x 4 x 4 mm in size. No other area of abnormal marrow signal is seen. Soft tissue swelling and edema surrounding ankle joint is seen extending to dorsal aspect of midfoot and hindfoot. There is moderate amount of tibiotalar joint effusion. Suggestion of intra-articular loose body in anterior aspect of tibiotalar joint measures 1 x 0.6 cm in size is seen. Soft tissues: There is suggestion of posterior tibialis tendinosis at the level of medial malleolus. Rest of the flexor tendons and extensor tendons are intact. Peroneus tendons are intact. Achilles tendon is intact. Deltoid ligament and the spring ligament complex are grossly intact. There is suggestion of moderate grade sprain/partial-thickness tear involving anterior and posterior talofibular ligaments and calcaneofibular ligament. Anterior and posterior tibial fibular ligaments are intact. Lisfranc ligament and joint is intact. Plantar aponeurosis is within normal limits. 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 IMPRESSION: 1. Diffuse ankle soft tissue swelling extending to dorsal aspect of hindfoot and midfoot. 2. Post fixation changes seen in distal tibial shaft with [address]. There is suggestion of edema throughout visualized distal tibia and fibular as well as talus. No discrete fracture line is seen. Finding likely represent stress related changes. New line 3. Osteoarthritic changes in tibiotalar joint with suggestion of osteochondral lesions involving medial and lateral periphery of talar dome weight-bearing portion. Moderate amount of joint effusion with suggestion of anterior intra-articular loose body as above. 4. Tendinosis involving posterior tibialis tendon at the level of medial malleolus. Rest of the ankle tendons are intact. 5. Sprain/moderate grade partial-thickness tear involving lateral ankle ligaments as above. Dictated by: Marek Sands M.D. on 09/02/2020 at 9:45 Approved by: Marek Sands M.D. on 09/02/2020 at 10:36
== END ==
PROVIDERS: PCP Family Medicine; Referring Provider Family Medicine; Visit Provider Family Medicine
DX: M25.571 Pain in right ankle and joints of right foot (principal); S93.491A Sprain of other ligament of right ankle, initial encounter; M79.89 Other specified soft tissue disorders; M25.461 Effusion, right knee; G89.29 Other chronic pain
CPT/HCPCS: 73718

== ENCOUNTER 2020-09-08 08:15 | Outpatient (RCR) | payer MEDICARE, OTHER, SELFPAY ==
[2018-04-29 17:17] VITALS: BMI 25.2
[2020-01-06 18:24] VITALS: BMI 23.6
--- NOTE | 2020-05-17 17:12 | PT.OIE ---
Current Diagnoses Post-traumatic osteoarthritis, right ankle and foot (05/17/20) Other spondylosis with radiculopathy, lumbosacral region (05/17/20) Spinal stenosis, lumbar region without neurogenic claudication (05/17/20) Abnormal posture (05/17/20) Weakness (05/17/20) Past Medical History (Last Updated 03/04/20 @ 10:08 by Cesar Bar DO) Anxiety (Chronic Unknown) Aortic stenosis (Chronic) Ascending aorta dilatation (Acute) Bilateral carotid artery disease (Acute ~09/2018) Bilateral carpal tunnel syndrome (Acute) BPH (benign prostatic hyperplasia) (Chronic Unknown) Cervical somatic dysfunction (Acute) Chronic back pain (Acute) Chronic kidney disease (Acute) Chronic pain syndrome (Chronic Unknown) Chronic renal insufficiency (Chronic Unknown) Coronary artery disease (Suspected Unknown) Depression (Chronic Unknown) Diabetes (Chronic Unknown) Edema of left lower extremity (Acute) GERD (gastroesophageal reflux disease) (Chronic Unknown) History of ETOH abuse (Resolved Unknown) Hyperlipemia (Chronic Unknown) Hypertension (Chronic Unknown) Low back pain (Chronic Unknown) Lumbar back pain with radiculopathy affecting right lower extremity (Acute) Moderate right ankle sprain (Acute) Nonallopathic lesion of lumbar region, not elsewhere classified (Acute) Pancreatitis (Acute) Peripheral neuropathy (Chronic Unknown) Rheumatoid arthritis (Chronic Unknown) Rheumatoid arthritis (Acute) Salivary gland swelling (Acute) Seroma after procedure (Acute) Somatic dysfunction of right lower extremity (Acute) Stiff neck (Acute) Past Surgical History (Last Reviewed 02/16/20 @ 14:00 by CAROLA Velázquez) History of back surgery (Resolved ~2012) History of surgery (Acute) History of surgical removal of skin lesion (Acute) Hx of cholecystectomy (Acute) S/P cervical spinal fusion (Acute) Status post hernia repair Status post knee surgery Visit Care Team Role Provider Type Cesar Bar DO Primary Care Provider Physician Specialty: Family Practice Address: [address] [place] [address], [id number] Email: Lashonda Cain MD Attending Provider Physician Referring Provider Specialty: Orthopedic Surgery Address: [address] [place] [address], [id number] Email: [email or web address] Therapy Initial Evaluation PT-OP-A Visit Information Start: 05/17/20 08:18 Freq: Status: Active Protocol: Document 05/17/20 08:58 [facility] (Rec: 05/17/20 09:42 [facility] [id number]) Out-Patient Physical Therapy Visit Information Visit Information Visit Type Initial Evaluation Visit Start Time 09:00 Visit Stop Time 09:57 Total Visit Minutes 57 Visit Number 1 Evaluation Information Evaluation Date 05/17/20 Precautions Precautions PMH: peripheral neuropathy, RA , HTN, DM, anxiety, chronic back pain, depression, memory dysfunction PT-OP-B Current Condition Start: 05/17/20 08:18 Freq: Status: Active Protocol: Document 05/17/20 08:58 [facility] (Rec: 05/17/20 09:42 [facility] [id number]) Current Condition History of Current Condition Onset Date 01/06/20 Current Complaints Perisistent, function-limiting LBP s/p surgeryt. History of Current Condition Extensive lumbar surgery with fusion, required 2 transfusions of blood during recovery. 4 days in hospital, discharged home with home health. To ER 2x due to severe pain. Had seroma drained. Saw Dr. Cain 1 week ago, CT showed everything looked good. See him again in July. Reports disappointment; haven't been able to do the things he wants to do. Pain low at rest, increases with activity to high level at least 8/10. Doing dishes painful. Sitting in car painful. Usual ADL's painful. Blood pressure under control. Trying to go for walks but very limited distance due to pain. Hasn't been able to do other exercises. States he recently helped a neighbor with tiling his floor because he needed money. Wearing back brace most of the time when up; extends into thoracic spine in back. Rheumatology referral but hasn 't gone yet. Patient states he injured his right foot/ ankle while in hospital for surgery when he was assisted up in bed. Has been using heat for some pain control. Denies N/T in LE's. 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 Prior Treatments and Tests Procedure: 1. L2-3, L5-S1 posterolateral and posterior interbody fusion 2. L2-3, L5-S1 posterior interbody cage placement 3. L3-4. L4-5 posterior segmental instrumentation removal 4. L3-4, L4-5 revision laminectomy with exploration of fusion 5. L2-3, L3-4, L4-5, L5-S1 posterior segmental instrumentation with pedicle screw placement 6. L4-5 posterolatearl fusion 7. [place] of bone marrow from iliac crest through a separate incision 8. Utilization of microsurgical technique and operating microscope CT after surgery normal post- op changes. Wearing LSO brace. Future Testing and Treatments Planned Aquatic PT and land-based PT recommended, aquatic PT not open at this time due to Covid19; not opening until Phase 3 in [facility]. Treatment Goals Patient/Caregiver Goals Resume being able to take usual walks and do usual activities without pain. long term goal is to be able to kayak again. PT-OP-C Subjective Start: 05/17/20 08:18 Freq: Status: Active Protocol: Document 05/17/20 08:58 [facility] (Rec: 05/17/20 17:00 [facility] [id number]) Patient Questionnaires Oswestry Low Back Index Oswestry Score 58 OP-PT Pain Assessment Pain Assessment Grid Paper Pain Assessment Grid Completed Yes Location back Pain Location Details lumbar spine, buttocks coleen Intensity 8 Scale Used Numeric (0 - 10) Description Aching,Burning,Pressure,Tender ,With Movement Pain Aggravating Factors Activity Pain Alleviating Factors Inactivity PT-OP-G Mobility & Gait Start: 05/17/20 08:18 Freq: Status: Active Protocol: Document 05/17/20 08:58 [facility] (Rec: 05/17/20 17:00 [facility] [id number]) OP Mobility Evaluation Bed Mobility Rolling indep Supine to and from Sit indep with log roll Transfers Sit to Stand independent with use of hands OP Gait Assessment Gait Gait Assistance Required: Independent Distance (Feet) 100 Assistive Devices Assistive Device None Gait Deviations General Gait Pattern Antalgic,Decreased Stride Length,Decreased Feet Clearance,Flexed Trunk Factors Limiting Gait Function Factors Limiting Gait Function Decreased Activity Tolerance, Decreased Strength,Pain PT-OP-J Posture/Palpation/Skin Start: 05/17/20 08:18 Freq: Status: Active Protocol: Document 05/17/20 08:58 [facility] (Rec: 05/17/20 17:00 [facility] [id number]) Posture Evaluation Position Sitting Head/C-Spine Posture Forward Head T-Spine Posture Increased Kyphosis L-Spine Posture Flattened Shoulder Posture (L) Rounded,(R) Rounded Scapula Posture (L) Protracted,(R) Protracted Palpation Assessment Location cervical spine Palpation Location bilateral lumbar spine Palpation Findings Muscle Guarding,Tenderness Skin Assessment Incisional Assessment Incision Appearance/Comments well healed, no signs of symptoms of infection, good scar mobility PT-OP-K Range of Motion Start: 05/17/20 08:18 Freq: Status: Active Protocol: Document 05/17/20 08:58 [facility] (Rec: 05/17/20 17:00 [facility] [id number]) Lumbar Spine Range of Motion Lumbar Spine Active Comments deferred to do spinal precautions, high pain level Hip Goniometric Range of Motion Hip coleen Hip ROM WFL No Testing Position Supine Straight Leg Raise 55 Extension 0 Internal Rotation 25 External Rotation 60 Hip ROM Limitations Hip ROM Limitations Soft Tissue Tightness Knee Goniometric Range of Motion Knee coleen Knee ROM WFL Yes Ankle and Foot Goniometric Range of Motion Ankle and Foot coleen Ankle/Foot ROM WFL Yes PT-OP-L Special Tests Start: 05/17/20 08:18 Freq: Status: Active Protocol: Document 05/17/20 08:58 [facility] (Rec: 05/17/20 17:00 [facility] [id number]) Special Tests Lumbar Spine Special Tests Straight Leg Raise Comments unable, painful PT-OP-M Strength Start: 05/17/20 08:18 Freq: Status: Active Protocol: Document 05/17/20 08:58 [facility] (Rec: 05/17/20 17:00 [facility] [id number]) Hip Strength Hip Manual Muscle Testing coleen Comments deferred due to high pain level Knee Strength Knee Manual Muscle Testing coleen Flexion (S2) 4 Good Extension (L3) 4 Good Ankle/Foot Strength Ankle and Foot Manual Muscle Testing Right Dorsiflexion (L4) 4- Good- Plantarflexion (S1) 4- Good- Comments painful Left Dorsiflexion (L4) 4+ Good+ Plantarflexion (S1) 4+ Good+ Toe Strength Toe Manual Muscle Testing Right Great Toe Flexion 4- Good- Extension 4- Good- Left Great Toe Flexion 5 Normal Extension 5 Normal PT-OP-Q Treatments Start: 05/17/20 08:18 Freq: Status: Active Protocol: Document 05/17/20 08:58 [facility] (Rec: 05/17/20 17:00 [facility] [id number]) Self-Care/Home Management Treatment Education Patient Education Home Exercise Program,Pain Management Other Education bring prior HEP handouts PT-OP-R Modalities Start: 05/17/20 08:18 Freq: Status: Active Protocol: Document 05/17/20 08:58 [facility] (Rec: 05/17/20 17:00 [facility] [id number]) Hot Pack/Cold Pack Treatment lumbar spine Patient Position Hooklying Treatment Duration (minutes) 15 Patient Tolerance Good PT-OP-T Assessment and Plan Start: 05/17/20 08:18 Freq: Status: Active Protocol: Document 05/17/20 08:58 [facility] (Rec: 05/17/20 17:11 [facility] [id number]) Physical Therapy Assessment Rehab Potential Rehabilitation Potential Good Evaluation Complexity Number of Personal Factors/Comorbidities 1-2 Number of Body Systems Impaired 3 Clinical Presentation at Evaluation Evolving Impairments Impairments Activity Tolerance,Pain, Posture,ROM,Strength Goals Four Impairment Decreased flexibility in bilateral hips Senior Care Goal (LTG) Improve PSLR to at least 75 degrees, hip ER to 70 and hip IR to 45 to improve overall function LTG Duration 08/15/20 Three Impairment LBP 8/10 Short Term Goal (STG) Decrease LBP to no greater than 5/10 with usual ADL's in the home STG Duration 06/24/20 Program Clinician Goal (LTG) Decrease LBP to no greater than 3/10 with usual activities including walks with his dog of at least 1 mile LTG Duration 08/15/20 Two Impairment decreased activity tolerance Oswestry 58% Short Term Goal (STG) Decrease Oswestry Score to no greater than 45% STG Duration 06/24/20 Senior Care Goal (LTG) Improve activity tolerance as evidenced by a decrease Oswestry Score to no greater than 25% LTG Duration 08/15/20 One Impairment weakness LE's and core Short Term Goal (STG) Patient able to tolerate 45 min land-based exercises for the purpose of strengthening and core stabilization without an increase in pain or c/o excess fatigue STG Duration 06/24/20 Senior Care Goal (LTG) Patient to be independent and compliant with HEP and aquatic exercise program 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 LTG Duration 08/15/20 Assessment Summary Assessment Patient presents with function -limiting pain following extensive lumbar spine surgery . Additionally he c/o right ankle pain due to twisting injury that he reports he sustained during a transfer while hospitalized. He would benefit from physical therapy to help him improve his strength and core stabilization, ROM, activity tolerance to help him return to a more active lifestyle he previously enjoyed. He has benefited highly from aquatic therapy in the past but currently we are not providing aquatic therapy until Phase III re-opening in [facility]. We will do exclusively land-based PT until then Physical Therapy Plan Frequency and Duration Frequency of Treatment 2x/Week Duration of Treatment 12 weeks Plan of Care Start Date 05/17/20 Plan of Care End Date 08/15/20 Therapeutic Interventions Therapeutic Interventions Aquatic Therapy,Home Exercise Program,Manual Therapy, Neuromuscular Re-education, Patient/Caregiver Education, Self-Care/Home Management,Soft Tissue Mobilization,Taping, Therapeutic Activities, Therapeutic Exercises Modalities Cold Pack/Ice Massage,Electric Stimulation,Hot Packs Next Visit Focus/Plan Next Note Type Treatment Note Next Visit Plan Review HEP, progress ther ex with emphasis on core stabilization, LE strengthening to help patient return to prior level of function.
--- NOTE | 2020-05-17 17:12 | PT.OPPOC ---
Physical, Occupational & Speech Therapy At [facility] Current Diagnoses Post-traumatic osteoarthritis, right ankle and foot (05/17/20) Other spondylosis with radiculopathy, lumbosacral region (05/17/20) Spinal stenosis, lumbar region without neurogenic claudication (05/17/20) Abnormal posture (05/17/20) Weakness (05/17/20) Visit Care Team Role Provider Type Cesar Bar DO Primary Care Provider Physician Specialty: Family Practice Address: [address] [place] [address], [id number] Email: Lashonda Cain MD Attending Provider Physician Referring Provider Specialty: Orthopedic Surgery Address: [address] [place] [address], [phone] Email: [email or web address] Plan Of Care PT-OP-T Assessment and Plan Start: 05/17/20 08:18 Freq: Status: Active Protocol: Document 05/17/20 08:58 [facility] (Rec: 05/17/20 17:11 [facility] [id number]) Physical Therapy Assessment Rehab Potential Rehabilitation Potential Good Evaluation Complexity Number of Personal Factors/Comorbidities 1-2 Number of Body Systems Impaired 3 Clinical Presentation at Evaluation Evolving Impairments Impairments Activity Tolerance,Pain, Posture,ROM,Strength Goals Four Impairment Decreased flexibility in bilateral hips Lumber Grader Goal (LTG) Improve PSLR to at least 75 degrees, hip ER to 70 and hip IR to 45 to improve overall function LTG Duration 08/15/20 Three Impairment LBP 8/10 Short Term Goal (STG) Decrease LBP to no greater than 5/10 with usual ADL's in the home STG Duration 06/24/20 Correction Goal (LTG) Decrease LBP to no greater than 3/10 with usual activities including walks with his dog of at least 1 mile LTG Duration 08/15/20 Two Impairment decreased activity tolerance Oswestry 58% Short Term Goal (STG) Decrease Oswestry Score to no greater than 45% STG Duration 06/24/20 Correction Goal (LTG) Improve activity tolerance as evidenced by a decrease Oswestry Score to no greater than 25% LTG Duration 08/15/20 One Impairment weakness LE's and core Short Term Goal (STG) Patient able to tolerate 45 min land-based exercises for the purpose of strengthening and core stabilization without an increase in pain or c/o excess fatigue STG Duration 06/24/20 Correction Goal (LTG) Patient to be independent and compliant with HEP and aquatic exercise program for 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 LTG Duration 08/15/20 Assessment Summary Assessment Patient presents with function -limiting pain following extensive lumbar spine surgery . Additionally he c/o right ankle pain due to twisting injury that he reports he sustained during a transfer while hospitalized. He would benefit from physical therapy to help him improve his strength and core stabilization, ROM, activity tolerance to help him return to a more active lifestyle he previously enjoyed. He has benefited highly from aquatic therapy in the past but currently we are not providing aquatic therapy until Phase III re-opening in [facility]. We will do exclusively land-based PT until then Physical Therapy Plan Frequency and Duration Frequency of Treatment 2x/Week Duration of Treatment 12 weeks Plan of Care Start Date 05/17/20 Plan of Care End Date 08/15/20 Therapeutic Interventions Therapeutic Interventions Aquatic Therapy,Home Exercise Program,Manual Therapy, Neuromuscular Re-education, Patient/Caregiver Education, Self-Care/Home Management,Soft Tissue Mobilization,Taping, Therapeutic Activities, Therapeutic Exercises Modalities Cold Pack/Ice Massage,Electric Stimulation,Hot Packs Next Visit Focus/Plan Next Note Type Treatment Note Next Visit Plan Review HEP, progress ther ex with emphasis on core stabilization, LE strengthening to help patient return to prior level of function. Plan of Care Dates Plan of Care Start Date 05/17/20 Plan of Care End Date 08/15/20 Electronically Signed by: Simin Mahan, PT 05/17/20 2640 Please Sign and Return: I have reviewed this Plan of Care and certify that the skilled therapy services above are required to meet the patient?s needs. Physician Signature Date Printed Name and Credentials Clinical Instructor Signature Printed Name and Credentials
--- NOTE | 2020-05-19 09:00 | PT.OTN ---
Current Diagnoses Post-traumatic osteoarthritis, right ankle and foot (05/19/20) Other spondylosis with radiculopathy, lumbosacral region (05/19/20) Spinal stenosis, lumbar region without neurogenic claudication (05/19/20) Abnormal posture (05/19/20) Weakness (05/19/20) Physical Therapy Treatment Note PT-OP-A Visit Information Start: 05/17/20 08:18 Freq: Status: Active Protocol: Document 05/19/20 08:14 SP (Rec: 05/19/20 09:01 SP [id number]) Out-Patient Physical Therapy Visit Information Visit Information Visit Type Treatment Note Visit Start Time 08:15 Visit Stop Time 09:00 Total Visit Minutes 45 Visit Number 2 Number of WELDING LEAD BURNER Visits 1 PT-OP-B Current Condition Start: 05/17/20 08:18 Freq: Status: Active Protocol: Document 05/17/20 08:58 SAK (Rec: 05/17/20 09:42 SAK [id number]) Current Condition History of Current Condition Onset Date 01/06/20 Current Complaints Perisistent, function-limiting LBP s/p surgeryt. History of Current Condition Extensive lumbar surgery with fusion, required 2 transfusions of blood during recovery. 4 days in hospital, discharged home with home health. To ER 2x due to severe pain. Had seroma drained. Saw Dr. Cain 1 week ago, CT showed everything looked good. See him again in July. Reports disappointment; haven't been able to do the things he wants to do. Pain low at rest, increases with activity to high level at least 8/10. Doing dishes painful. Sitting in car painful. Usual ADL's painful. Blood pressure under control. Trying to go for walks but very limited distance due to pain. Hasn't been able to do other exercises. States he recently helped a neighbor with tiling his floor because he needed money. Wearing back brace most of the time when up; extends into thoracic spine in back. Rheumatology referral but hasn 't gone yet. Patient states he injured his right foot/ ankle while in hospital for surgery when he was assisted up in bed. Has been using heat for some pain control. Denies N/T in LE's. 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 Prior Treatments and Tests Procedure: 1. L2-3, L5-S1 posterolateral and posterior interbody fusion 2. L2-3, L5-S1 posterior interbody cage placement 3. L3-4. L4-5 posterior segmental instrumentation removal 4. L3-4, L4-5 revision laminectomy with exploration of fusion 5. L2-3, L3-4, L4-5, L5-S1 posterior segmental instrumentation with pedicle screw placement 6. L4-5 posterolatearl fusion 7. [place] of bone marrow from iliac crest through a separate incision 8. Utilization of microsurgical technique and operating microscope CT after surgery normal post- op changes. Wearing LSO brace. Future Testing and Treatments Planned Aquatic PT and land-based PT recommended, aquatic PT not open at this time due to Covid19; not opening until Phase 3 in [facility]. Treatment Goals Patient/Caregiver Goals Resume being able to take usual walks and do usual activities without pain. 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 PT-OP-C Subjective Start: 05/17/20 08:18 Freq: Status: Active Protocol: Document 05/19/20 08:14 SP (Rec: 05/19/20 09:01 SP [id number]) OP-PT Subjective Patient Comments Patient Comments Pt arrived back brace donned, report LBP today, started some of his exercises and walked . 25 miles yesterday before fatigued and stopped when felt per PT discussion. Little sore but feel is helping. Pt brought copies of [place] [employer] land and pool, in chart. PT-OP-G Mobility & Gait Start: 05/17/20 08:18 Freq: Status: Active Protocol: Document 05/17/20 08:58 [facility] (Rec: 05/17/20 17:00 [facility] [id number]) OP Mobility Evaluation Bed Mobility Rolling indep Supine to and from Sit indep with log roll Transfers Sit to Stand independent with use of hands OP Gait Assessment Gait Gait Assistance Required: Independent Distance (Feet) 100 Assistive Devices Assistive Device None Gait Deviations General Gait Pattern Antalgic,Decreased Stride Length,Decreased Feet Clearance,Flexed Trunk Factors Limiting Gait Function Factors Limiting Gait Function Decreased Activity Tolerance, Decreased Strength,Pain PT-OP-J Posture/Palpation/Skin Start: 05/17/20 08:18 Freq: Status: Active Protocol: Document 05/17/20 08:58 [facility] (Rec: 05/17/20 17:00 [facility] [id number]) Posture Evaluation Position Sitting Head/C-Spine Posture Forward Head T-Spine Posture Increased Kyphosis L-Spine Posture Flattened Shoulder Posture (L) Rounded,(R) Rounded Scapula Posture (L) Protracted,(R) Protracted Palpation Assessment Location cervical spine Palpation Location bilateral lumbar spine Palpation Findings Muscle Guarding,Tenderness Skin Assessment Incisional Assessment Incision Appearance/Comments well healed, no signs of symptoms of infection, good scar mobility PT-OP-K Range of Motion Start: 05/17/20 08:18 Freq: Status: Active Protocol: Document 05/17/20 08:58 [facility] (Rec: 05/17/20 17:00 [facility] [id number]) Lumbar Spine Range of Motion Lumbar Spine Active Comments deferred to do spinal precautions, high pain level Hip Goniometric Range of Motion Hip coleen Hip ROM WFL No Testing Position Supine Straight Leg Raise 55 Extension 0 Internal Rotation 25 External Rotation 60 Hip ROM Limitations Hip ROM Limitations Soft Tissue Tightness Knee Goniometric Range of Motion Knee coleen Knee ROM WFL Yes Ankle and Foot Goniometric Range of Motion Ankle and Foot coleen Ankle/Foot ROM WFL Yes PT-OP-L Special Tests Start: 05/17/20 08:18 Freq: Status: Active Protocol: Document 05/17/20 08:58 [facility] (Rec: 05/17/20 17:00 [facility] [id number]) Special Tests Lumbar Spine Special Tests Straight Leg Raise Comments unable, painful PT-OP-M Strength Start: 05/17/20 08:18 Freq: Status: Active Protocol: Document 05/17/20 08:58 [facility] (Rec: 05/17/20 17:00 [facility] [id number]) Hip Strength Hip Manual Muscle Testing coleen Comments deferred due to high pain level Knee Strength Knee Manual Muscle Testing coleen Flexion (S2) 4 Good Extension (L3) 4 Good Ankle/Foot Strength Ankle and Foot Manual Muscle Testing Right Dorsiflexion (L4) 4- Good- Plantarflexion (S1) 4- Good- Comments painful Left Dorsiflexion (L4) 4+ Good+ Plantarflexion (S1) 4+ Good+ Toe Strength Toe Manual Muscle Testing Right Great Toe Flexion 4- Good- Extension 4- Good- Left Great Toe Flexion 5 Normal Extension 5 Normal PT-OP-Q Treatments Start: 05/17/20 08:18 Freq: Status: Active Protocol: Document 05/19/20 08:14 SP (Rec: 05/19/20 09:01 SP [id number]) Cardio Equipment Recumbent Elliptical (Biodex) Duration (Minutes) 6 Resistance 3 Seat Position 10 Therapeutic Exercises Supine Exercises bicycling Supine Exercise Name modified sequencial alternating january Reps/Minutes x10 SKTC Reps/Minutes 2x30 Comments instruction self HS stretch Reps/Minutes 2 x 30 Comments instruction self TrA with ball squeeze Supine Exercise Name small blue ball Reps/Minutes 10x TrA Reps/Minutes 10x isometric hold Supine Exercise Name hip abd Resistance L2 band Reps/Minutes x10 Standing Exercises rows, shoulder ext Resistance L2 TB Reps/Minutes 10x PT-OP-R Modalities Start: 05/17/20 08:18 Freq: Status: Active Protocol: Document 05/17/20 08:58 SAK (Rec: 05/17/20 17:00 SAK [id number]) Hot Pack/Cold Pack Treatment lumbar spine Patient Position Hooklying Treatment Duration (minutes) 15 Patient Tolerance Good PT-OP-T Assessment and Plan Start: 05/17/20 08:18 Freq: Status: Active Protocol: Document 05/19/20 08:14 SP (Rec: 05/19/20 09:01 SP [id number]) Physical Therapy Assessment Goals Five Impairment QuickDash UE disability index score 95% Short Term Goal (STG) Decrease Quickdash UE disability index score to no greater than 60% 07/30/19: good goal progress STG Duration MET Material Manager Goal (LTG) Decrease Quickdash UE disability index score to no greater than 30% including able to reach overhead and behind his back for ADL's and usual daily activities without difficulty 07/30/19: good goal progress LTG Duration 08/28/19 Four Impairment Decreased flexibility in bilateral hips Intermediate Goal (LTG) Improve PSLR to at least 75 degrees, hip ER to 70 and hip IR to 45 to improve overall function LTG Duration 08/15/20 Three Impairment LBP 8/ Short Term Goal (STG) Decrease LBP to no greater than 5/10 with usual ADL's in the home STG Duration 06/24/20 Intermediate Goal (LTG) Decrease LBP to no greater than 3/10 with usual activities including walks with his dog of at least 1 mile LTG Duration 08/15/20 Two Impairment decreased activity tolerance Oswestry 58% Short Term Goal (STG) Decrease Oswestry Score to no greater than 45% STG Duration 06/24/20 Material Manager Goal (LTG) Improve activity tolerance as evidenced by a decrease Oswestry Score to no greater than 25% LTG Duration 08/15/20 One Impairment weakness LE's and core Short Term Goal (STG) Patient able to tolerate 45 min land-based exercises for the purpose of strengthening and core stabilization without an increase in pain or c/o excess fatigue STG Duration 06/24/20 Material Manager Goal (LTG) Patient to be independent and compliant with HEP and aquatic exercise program for the purposes of [facility] fitness and 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 LTG Duration 08/15/20 Assessment Summary Assessment Pt tolerant to biodex warm up, supine and standing ther ex and flexibility HEP review cuing required for set up, posture and proper form to facilitate spinal stabilization and decrease LB recruitment. Pt unable to perform bridge at this time, modified core march with one LE contact table due to bilateral to uncomfortable to LB. Pt reported positive feedback to tx today. Physical Therapy Plan Frequency and Duration Frequency of Treatment 2x/Week Duration of Treatment 12 weeks Plan of Care Start Date 05/17/20 Plan of Care End Date 08/15/20 Therapeutic Interventions Therapeutic Interventions Aquatic Therapy,Home Exercise Program,Manual Therapy, Neuromuscular Re-education, Patient/Caregiver Education, Self-Care/Home Management,Soft Tissue Mobilization,Taping, Therapeutic Activities, Therapeutic Exercises Modalities Cold Pack/Ice Massage,Electric Stimulation,Hot Packs Next Visit Focus/Plan Next Note Type Treatment Note Next Visit Plan Assess response to last tx. Next tx assess use of upright bike for home use if tolerant. Review HEP, progress ther ex with emphasis on core stabilization, LE strengthening to help patient return to prior level of function.
--- NOTE | 2020-05-23 10:07 | PT-OP ANOTE ---
Pt cancelled early am left messate, feeling under the weather.
--- NOTE | 2020-06-02 07:39 | PT-OP ANOTE ---
Pt cancelled same day appt 0501: stated feeling under the weather, has been coughing and decreased clear voice, has lab work ordered this week and appt with PCP follow up. May cancel next appt as well 06/06/20 depending on how feeling. TECHNICAL DATA ANALYST recommended to call >24 hr in advance.
--- NOTE | 2020-06-06 08:30 | PT-OP ANOTE ---
Pt did not show for today's appt, voicemail has not been set up so couldn't leave a message regarding missed appt and next is 06/09 with his primary PT. Discussed with his PT, Simin conversations with patient prior to today of missed previous appts but that sounded like medical concerns but recommended cancelling >24 hrs in advance if couldn't attend.
--- NOTE | 2020-06-09 16:16 | PT.OTN ---
Current Diagnoses Post-traumatic osteoarthritis, right ankle and foot (06/09/20) Other spondylosis with radiculopathy, lumbosacral region (06/09/20) Spinal stenosis, lumbar region without neurogenic claudication (06/09/20) Abnormal posture (06/09/20) Weakness (06/09/20) Physical Therapy Treatment Note PT-OP-A Visit Information Start: 05/17/20 08:18 Freq: Status: Active Protocol: Document 06/09/20 15:16 [facility] (Rec: 06/09/20 16:06 [facility] [id number]) Out-Patient Physical Therapy Visit Information Visit Information Visit Type Treatment Note Visit Start Time 15:17 Visit Stop Time 16:14 Total Visit Minutes 57 Visit Number 3 Precautions Precautions PMH: peripheral neuropathy, RA , HTN, DM, anxiety, chronic back pain, depression, memory dysfunction PT-OP-B Current Condition Start: 05/17/20 08:18 Freq: Status: Active Protocol: Document 05/17/20 08:58 SAK (Rec: 05/17/20 09:42 SAK [id number]) Current Condition History of Current Condition Onset Date 01/06/20 Current Complaints Perisistent, function-limiting LBP s/p surgeryt. History of Current Condition Extensive lumbar surgery with fusion, required 2 transfusions of blood during recovery. 4 days in hospital, discharged home with home health. To ER 2x due to severe pain. Had seroma drained. Saw Dr. Cain 1 week ago, CT showed everything looked good. See him again in July. Reports disappointment; haven't been able to do the things he wants to do. Pain low at rest, increases with activity to high level at least 8/10. Doing dishes painful. Sitting in car painful. Usual ADL's painful. Blood pressure under control. Trying to go for walks but very limited distance due to pain. Hasn't been able to do other exercises. States he recently helped a neighbor with tiling his floor because he needed money. Wearing back brace most of the time when up; extends into thoracic spine in back. Rheumatology referral but hasn 't gone yet. Patient states he injured his right foot/ ankle while in hospital for surgery when he was assisted up in bed. Has been using heat for some pain control. Denies N/T in LE's. 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 Prior Treatments and Tests Procedure: 1. L2-3, L5-S1 posterolateral and posterior interbody fusion 2. L2-3, L5-S1 posterior interbody cage placement 3. L3-4. L4-5 posterior segmental instrumentation removal 4. L3-4, L4-5 revision laminectomy with exploration of fusion 5. L2-3, L3-4, L4-5, L5-S1 posterior segmental instrumentation with pedicle screw placement 6. L4-5 posterolatearl fusion 7. [place] of bone marrow from iliac crest through a separate incision 8. Utilization of microsurgical technique and operating microscope CT after surgery normal post- op changes. Wearing LSO brace. Future Testing and Treatments Planned Aquatic PT and land-based PT recommended, aquatic PT not open at this time due to Covid19; not opening until Phase 3 in [facility]. Treatment Goals Patient/Caregiver Goals Resume being able to take usual walks and do usual activities without pain. senior care goal is to be able to kayak again. PT-OP-C Subjective Start: 05/17/20 08:18 Freq: Status: Active Protocol: Document 06/09/20 15:16 [facility] (Rec: 06/09/20 16:06 [facility] [id number]) OP-PT Subjective Patient Comments Patient Comments Can't sleep, doesn't see Dr. King until July 21. Can 't do lap at park, has to go from bench to bench. Constant pain 6-05/20. Sees Dr. Bar next Saturday. PT-OP-G Mobility & Gait Start: 05/17/20 08:18 Freq: Status: Active Protocol: Document 05/17/20 08:58 [facility] (Rec: 05/17/20 17:00 [facility] [id number]) OP Mobility Evaluation Bed Mobility Rolling indep Supine to and from Sit indep with log roll Transfers Sit to Stand independent with use of hands OP Gait Assessment Gait Gait Assistance Required: Independent Distance (Feet) 100 Assistive Devices Assistive Device None Gait Deviations General Gait Pattern Antalgic,Decreased Stride Length,Decreased Feet Clearance,Flexed Trunk Factors Limiting Gait Function Factors Limiting Gait Function Decreased Activity Tolerance, Decreased Strength,Pain PT-OP-J Posture/Palpation/Skin Start: 05/17/20 08:18 Freq: Status: Active Protocol: Document 05/17/20 08:58 [facility] (Rec: 05/17/20 17:00 [facility] [id number]) Posture Evaluation Position Sitting Head/C-Spine Posture Forward Head T-Spine Posture Increased Kyphosis L-Spine Posture Flattened Shoulder Posture (L) Rounded,(R) Rounded Scapula Posture (L) Protracted,(R) Protracted Palpation Assessment Location cervical spine Palpation Location bilateral lumbar spine Palpation Findings Muscle Guarding,Tenderness Skin Assessment Incisional Assessment Incision Appearance/Comments well healed, no signs of symptoms of infection, good scar mobility PT-OP-K Range of Motion Start: 05/17/20 08:18 Freq: Status: Active Protocol: Document 05/17/20 08:58 [facility] (Rec: 05/17/20 17:00 [facility] [id number]) Lumbar Spine Range of Motion Lumbar Spine Active Comments deferred to do spinal precautions, high pain level Hip Goniometric Range of Motion Hip coleen Hip ROM WFL No Testing Position Supine Straight Leg Raise 55 Extension 0 Internal Rotation 25 External Rotation 60 Hip ROM Limitations Hip ROM Limitations Soft Tissue Tightness Knee Goniometric Range of Motion Knee coleen Knee ROM WFL Yes Ankle and Foot Goniometric Range of Motion Ankle and Foot coleen Ankle/Foot ROM WFL Yes PT-OP-L Special Tests Start: 05/17/20 08:18 Freq: Status: Active Protocol: Document 05/17/20 08:58 [facility] (Rec: 05/17/20 17:00 [facility] [id number]) Special Tests Lumbar Spine Special Tests Straight Leg Raise Comments unable, painful PT-OP-M Strength Start: 05/17/20 08:18 Freq: Status: Active Protocol: Document 05/17/20 08:58 [facility] (Rec: 05/17/20 17:00 [facility] [id number]) Hip Strength Hip Manual Muscle Testing coleen Comments deferred due to high pain level Knee Strength Knee Manual Muscle Testing coleen Flexion (S2) 4 Good Extension (L3) 4 Good Ankle/Foot Strength Ankle and Foot Manual Muscle Testing Right Dorsiflexion (L4) 4- Good- Plantarflexion (S1) 4- Good- Comments painful Left Dorsiflexion (L4) 4+ Good+ Plantarflexion (S1) 4+ Good+ Toe Strength Toe Manual Muscle Testing Right Great Toe Flexion 4- Good- Extension 4- Good- Left Great Toe Flexion 5 Normal Extension 5 Normal PT-OP-Q Treatments Start: 05/17/20 08:18 Freq: Status: Active Protocol: Document 06/09/20 15:16 [facility] (Rec: 06/09/20 16:06 [facility]AK [id number]) Cardio Equipment Recumbent Stepper (Sci-Fit) Duration (Minutes) 10 Resistance 2.0 Seat Position 14 Gym Equipment Shuttle Recovery Bilateral Squats Resistance 75 Shuttle Recovery Platform Stable Reps/Time 2x10 Therapeutic Exercises Supine Exercises bicycling Supine Exercise Name modified sequencial alternating march Reps/Minutes x10 SKTC Reps/Minutes 2x30 HS stretch Reps/Minutes 2 x 30 Comments manual TrA with ball squeeze Supine Exercise Name small blue ball Reps/Minutes 10x isometric hold Supine Exercise Name hip abd Resistance L2 band Reps/Minutes x10 Manual Therapy Treatment Soft Tissue Mobilization lumbar spine Body Location coleen lumbar paraspinals Mobilization Type Myofascial Release,Strumming Body Position left sidelying PT-OP-R Modalities Start: 05/17/20 08:18 Freq: Status: Active Protocol: Document 05/17/20 08:58 [facility] (Rec: 05/17/20 17:00 [facility] [id number]) Hot Pack/Cold Pack Treatment lumbar spine Patient Position Hooklying Treatment Duration (minutes) 15 Patient Tolerance Good PT-OP-T Assessment and Plan Start: 05/17/20 08:18 Freq: Status: Active Protocol: Document 06/09/20 15:16 [facility] (Rec: 06/09/20 16:06 [facility] [id number]) Physical Therapy Assessment Goals Five Impairment QuickDash UE disability index score 95% Short Term Goal (STG) Decrease Quickdash UE disability index score to no greater than 60% 07/30/19: good goal progress STG Duration MET Prison Goal (LTG) Decrease Quickdash UE disability index score to no greater than 30% including able to reach overhead and behind his back for ADL's and usual daily activities without difficulty 07/30/19: good goal progress LTG Duration 08/28/19 Four Impairment Decreased flexibility in bilateral hips Prison Goal (LTG) Improve PSLR to at least 75 degrees, hip ER to 70 and hip IR to 45 to improve overall function LTG Duration 08/15/20 Three Impairment LBP 06/20 Short Term Goal (STG) Decrease LBP to no greater than 5/10 with usual ADL's in the home STG Duration 06/24/20 Insurance Claims Processor Goal (LTG) Decrease LBP to no greater than 3/10 with usual activities including walks with his dog of at least 1 mile LTG Duration 08/15/20 Two Impairment decreased activity tolerance Oswestry 58% Short Term Goal (STG) Decrease Oswestry Score to no greater than 45% STG Duration 06/24/20 Insurance Claims Processor Goal (LTG) Improve activity tolerance as evidenced by a decrease Oswestry Score to no greater than 25% LTG Duration 08/15/20 One Impairment weakness LE's and core Short Term Goal (STG) Patient able to tolerate 45 min land-based exercises for the purpose of strengthening and core stabilization without an increase in pain or c/o excess fatigue STG Duration 06/24/20 Insurance Claims Processor Goal (LTG) Patient to be independent and compliant with HEP and aquatic exercise program for the purposes of correction fitness and 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 LTG Duration 08/15/20 Assessment Summary Assessment Patient reporting high pain levels, tolerated gentle ther ex well with emphasis on postural alignment and core stabilization with all activities. Continue to educate on pain neuroscience, high potential for increased stress above and below areas of spinal fusion. Education for dep breathing, muscle relaxation. Decreased muscle tension after sesion. Physical Therapy Plan Frequency and Duration Frequency of Treatment 2x/Week Duration of Treatment 12 weeks Plan of Care Start Date 05/17/20 Plan of Care End Date 08/15/20 Therapeutic Interventions Therapeutic Interventions Aquatic Therapy,Home Exercise Program,Manual Therapy, Neuromuscular Re-education, Patient/Caregiver Education, Self-Care/Home Management,Soft Tissue Mobilization,Taping, Therapeutic Activities, Therapeutic Exercises Modalities Cold Pack/Ice Massage,Electric Stimulation,Hot Packs Next Visit Focus/Plan Next Note Type Treatment Note Next Visit Plan Continue ther ex, if recumbant elliptical tolerated ok 10 min today, try upright exercise bike.
--- NOTE | 2020-06-13 10:35 | PT.OTN ---
Current Diagnoses Post-traumatic osteoarthritis, right ankle and foot (06/13/20) Other spondylosis with radiculopathy, lumbosacral region (06/13/20) Spinal stenosis, lumbar region without neurogenic claudication (06/13/20) Abnormal posture (06/13/20) Weakness (06/13/20) Physical Therapy Treatment Note PT-OP-A Visit Information Start: 05/17/20 08:18 Freq: Status: Active Protocol: Document 06/13/20 09:52 SP (Rec: 06/13/20 10:36 SP [id number]) Out-Patient Physical Therapy Visit Information Visit Information Visit Type Treatment Note Visit Note SENIOR MASTER SCHEDULER brought pt back late. Visit Start Time 09:52 Visit Stop Time 10:35 Total Visit Minutes 43 Visit Number 4 Number of SENIOR MASTER SCHEDULER Visits 1 PT-OP-B Current Condition Start: 05/17/20 08:18 Freq: Status: Active Protocol: Document 05/17/20 08:58 SAK (Rec: 05/17/20 09:42 SAK [id number]) Current Condition History of Current Condition Onset Date 01/06/20 Current Complaints Perisistent, function-limiting LBP s/p surgeryt. History of Current Condition Extensive lumbar surgery with fusion, required 2 transfusions of blood during recovery. 4 days in hospital, discharged home with home health. To ER 2x due to severe pain. Had seroma drained. Saw Dr. Cain 1 week ago, CT showed everything looked good. See him again in July. Reports disappointment; haven't been able to do the things he wants to do. Pain low at rest, increases with activity to high level at least 8/10. Doing dishes painful. Sitting in car painful. Usual ADL's painful. Blood pressure under control. Trying to go for walks but very limited distance due to pain. Hasn't been able to do other exercises. States he recently helped a neighbor with tiling his floor because he needed money. Wearing back brace most of the time when up; extends into thoracic spine in back. Rheumatology referral but hasn 't gone yet. Patient states he injured his right foot/ ankle while in hospital for surgery when he was assisted up in bed. Has been using heat for some pain control. Denies N/T in LE's. 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 Prior Treatments and Tests Procedure: 1. L2-3, L5-S1 posterolateral and posterior interbody fusion 2. L2-3, L5-S1 posterior interbody cage placement 3. L3-4. L4-5 posterior segmental instrumentation removal 4. L3-4, L4-5 revision laminectomy with exploration of fusion 5. L2-3, L3-4, L4-5, L5-S1 posterior segmental instrumentation with pedicle screw placement 6. L4-5 posterolatearl fusion 7. [place] of bone marrow from iliac crest through a separate incision 8. Utilization of microsurgical technique and operating microscope CT after surgery normal post- op changes. Wearing LSO brace. Future Testing and Treatments Planned Aquatic PT and land-based PT recommended, aquatic PT not open at this time due to Covid19; not opening until Phase 3 in [facility]. Treatment Goals Patient/Caregiver Goals Resume being able to take usual walks and do usual activities without pain. senior living goal is to be able to kayak again. PT-OP-C Subjective Start: 05/17/20 08:18 Freq: Status: Active Protocol: Document 06/13/20 09:52 SP (Rec: 06/13/20 10:36 SP [id number]) OP-PT Subjective Patient Comments Patient Comments Pt stated having electrifying R more than L LB SI area most when laying down to long and rolling when starts and at times getting up to fast. Has seen Dr Cain to help with pain mgt with follow up next week, will see Dr Bar tomorrow. PT-OP-G Mobility & Gait Start: 05/17/20 08:18 Freq: Status: Active Protocol: Document 05/17/20 08:58 [facility] (Rec: 05/17/20 17:00 [facility] [id number]) OP Mobility Evaluation Bed Mobility Rolling indep Supine to and from Sit indep with log roll Transfers Sit to Stand independent with use of hands OP Gait Assessment Gait Gait Assistance Required: Independent Distance (Feet) 100 Assistive Devices Assistive Device None Gait Deviations General Gait Pattern Antalgic,Decreased Stride Length,Decreased Feet Clearance,Flexed Trunk Factors Limiting Gait Function Factors Limiting Gait Function Decreased Activity Tolerance, Decreased Strength,Pain PT-OP-J Posture/Palpation/Skin Start: 05/17/20 08:18 Freq: Status: Active Protocol: Document 05/17/20 08:58 [facility] (Rec: 05/17/20 17:00 [facility] [id number]) Posture Evaluation Position Sitting Head/C-Spine Posture Forward Head T-Spine Posture Increased Kyphosis L-Spine Posture Flattened Shoulder Posture (L) Rounded,(R) Rounded Scapula Posture (L) Protracted,(R) Protracted Palpation Assessment Location cervical spine Palpation Location bilateral lumbar spine Palpation Findings Muscle Guarding,Tenderness Skin Assessment Incisional Assessment Incision Appearance/Comments well healed, no signs of symptoms of infection, good scar mobility PT-OP-K Range of Motion Start: 05/17/20 08:18 Freq: Status: Active Protocol: Document 05/17/20 08:58 [facility] (Rec: 05/17/20 17:00 [facility] [id number]) Lumbar Spine Range of Motion Lumbar Spine Active Comments deferred to do spinal precautions, high pain level Hip Goniometric Range of Motion Hip coleen Hip ROM WFL No Testing Position Supine Straight Leg Raise 55 Extension 0 Internal Rotation 25 External Rotation 60 Hip ROM Limitations Hip ROM Limitations Soft Tissue Tightness Knee Goniometric Range of Motion Knee coleen Knee ROM WFL Yes Ankle and Foot Goniometric Range of Motion Ankle and Foot coleen Ankle/Foot ROM WFL Yes PT-OP-L Special Tests Start: 05/17/20 08:18 Freq: Status: Active Protocol: Document 05/17/20 08:58 [facility] (Rec: 05/17/20 17:00 [facility] [id number]) Special Tests Lumbar Spine Special Tests Straight Leg Raise Comments unable, painful PT-OP-M Strength Start: 05/17/20 08:18 Freq: Status: Active Protocol: Document 05/17/20 08:58 [facility] (Rec: 05/17/20 17:00 [facility] [id number]) Hip Strength Hip Manual Muscle Testing coleen Comments deferred due to high pain level Knee Strength Knee Manual Muscle Testing coleen Flexion (S2) 4 Good Extension (L3) 4 Good Ankle/Foot Strength Ankle and Foot Manual Muscle Testing Right Dorsiflexion (L4) 4- Good- Plantarflexion (S1) 4- Good- Comments painful Left Dorsiflexion (L4) 4+ Good+ Plantarflexion (S1) 4+ Good+ Toe Strength Toe Manual Muscle Testing Right Great Toe Flexion 4- Good- Extension 4- Good- Left Great Toe Flexion 5 Normal Extension 5 Normal PT-OP-Q Treatments Start: 05/17/20 08:18 Freq: Status: Active Protocol: Document 06/13/20 09:52 SP (Rec: 06/13/20 10:36 SP [id number]) Therapeutic Exercises Supine Exercises SKTC Reps/Minutes 3x30 Comments review with instructoin on self HS stretch Reps/Minutes 2 x 30 Comments review with instruction on self Standing Exercises self STMS all wall piriformis/glut med Comments instruction on self STM at wall Manual Therapy Treatment Soft Tissue Mobilization lumbar spine Body Location Glut med, piriformis, proximal HS Mobilization Type Myofascial Release,Strumming Intensity/Depth Moderate Body Position Prone Comments R more than L tightness PT-OP-R Modalities Start: 05/17/20 08:18 Freq: Status: Active Protocol: Document 05/17/20 08:58 SAK (Rec: 05/17/20 17:00 SAK [id number]) Hot Pack/Cold Pack Treatment lumbar spine Patient Position Hooklying Treatment Duration (minutes) 15 Patient Tolerance Good PT-OP-T Assessment and Plan Start: 05/17/20 08:18 Freq: Status: Active Protocol: Document 06/13/20 09:52 SP (Rec: 06/13/20 10:36 SP [id number]) Physical Therapy Assessment Goals Five Impairment QuickDash UE disability index score 95% Short Term Goal (STG) Decrease Quickdash UE disability index score to no greater than 60% 07/30/19: good goal progress STG Duration MET Fdc Goal (LTG) Decrease Quickdash UE disability index score to no greater than 30% including able to reach overhead and behind his back for ADL's and usual daily activities without difficulty 07/30/19: good goal progress LTG Duration 08/28/19 Four Impairment Decreased flexibility in bilateral hips Rehabilitation Aide Goal (LTG) Improve PSLR to at least 75 degrees, hip ER to 70 and hip IR to 45 to improve overall function LTG Duration 08/15/20 Three Impairment LBP 8/10 Short Term Goal (STG) Decrease LBP to no greater than 5/10 with usual ADL's in the home STG Duration 06/24/20 Fdc Goal (LTG) Decrease LBP to no greater than 3/10 with usual activities including walks with his dog of at least 1 mile LTG Duration 08/15/20 Two Impairment decreased activity tolerance Oswestry 58% Short Term Goal (STG) Decrease Oswestry Score to no greater than 45% STG Duration 06/24/20 Fdc Goal (LTG) Improve activity tolerance as evidenced by a decrease Oswestry Score to no greater than 25% LTG Duration 08/15/20 One Impairment weakness LE's and core Short Term Goal (STG) Patient able to tolerate 45 min land-based exercises for the purpose of strengthening and core stabilization without an increase in pain or c/o excess fatigue STG Duration 06/24/20 Rehabilitation Aide Goal (LTG) Patient to be independent and compliant with HEP and aquatic exercise program for the purposes of press tender long goods fitness and 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 LTG Duration 08/15/20 Assessment Summary Assessment Tx focused on decreased pain, review HEP flexibility and instruction of self STMs of PF and gluts at wall to allow for funcitonal mobilty with decreased electrifying pain with good results, no pain leaving. I feel so much more loosened up. Physical Therapy Plan Frequency and Duration Frequency of Treatment 2x/Week Duration of Treatment 12 weeks Plan of Care Start Date 05/17/20 Plan of Care End Date 08/15/20 Therapeutic Interventions Therapeutic Interventions Aquatic Therapy,Home Exercise Program,Manual Therapy, Neuromuscular Re-education, Patient/Caregiver Education, Self-Care/Home Management,Soft Tissue Mobilization,Taping, Therapeutic Activities, Therapeutic Exercises Modalities Cold Pack/Ice Massage,Electric Stimulation,Hot Packs Next Visit Focus/Plan Next Note Type Treatment Note Next Visit Plan Assess reponse to last tx: flexibillity focus and decreased pain: stretching and ball wall self STMs. Continue ther ex, if recumbant elliptical tolerated ok 10 min today, try upright exercise bike.
--- NOTE | 2020-06-17 08:15 | PT.OTN ---
Current Diagnoses Post-traumatic osteoarthritis, right ankle and foot (06/17/20) Other spondylosis with radiculopathy, lumbosacral region (06/17/20) Spinal stenosis, lumbar region without neurogenic claudication (06/17/20) Abnormal posture (06/17/20) Weakness (06/17/20) Physical Therapy Treatment Note PT-OP-A Visit Information Start: 05/17/20 08:18 Freq: Status: Active Protocol: Document 06/17/20 07:31 SP (Rec: 06/17/20 08:18 SP [id number]) Out-Patient Physical Therapy Visit Information Visit Information Visit Type Treatment Note Visit Start Time 07:32 Visit Stop Time 08:15 Total Visit Minutes 43 Visit Number 5 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 History of Current Condition Extensive lumbar surgery with fusion, required 2 transfusions of blood during recovery. 4 days in hospital, discharged home with home health. To ER 2x due to severe pain. Had seroma drained. Saw Dr. Cain 1 week ago, CT showed everything looked good. See him again in July. Reports disappointment; haven't been able to do the things he wants to do. Pain low at rest, increases with activity to high level at least 8/10. Doing dishes painful. Sitting in car painful. Usual ADL's painful. Blood pressure under control. Trying to go for walks but very limited distance due to pain. Hasn't been able to do other exercises. States he recently helped a neighbor with tiling his floor because he needed money. Wearing back brace most of the time when up; extends into thoracic spine in back. Rheumatology referral but hasn 't gone yet. Patient states he injured his right foot/ ankle while in hospital for surgery when he was assisted up in bed. Has been using heat for some pain control. Denies N/T in LE's. 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 Prior Treatments and Tests Procedure: 1. L2-3, L5-S1 posterolateral and posterior interbody fusion 2. L2-3, L5-S1 posterior interbody cage placement 3. L3-4. L4-5 posterior segmental instrumentation removal 4. L3-4, L4-5 revision laminectomy with exploration of fusion 5. L2-3, L3-4, L4-5, L5-S1 posterior segmental instrumentation with pedicle screw placement 6. L4-5 posterolatearl fusion 7. [place] of bone marrow from iliac crest through a separate incision 8. Utilization of microsurgical technique and operating microscope CT after surgery normal post- op changes. Wearing LSO brace. Future Testing and Treatments Planned Aquatic PT and land-based PT recommended, aquatic PT not open at this time due to Covid19; not opening until Phase 3 in [facility]. Treatment Goals Patient/Caregiver Goals Resume being able to take usual walks and do usual activities without pain. 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 PT-OP-C Subjective Start: 05/17/20 08:18 Freq: Status: Active Protocol: Document 06/17/20 07:31 SP (Rec: 06/17/20 08:18 SP [id number]) OP-PT Subjective Patient Comments Patient Comments Pt reported back feeling good mostly tightness and sleeping better. He saw Dr Bar and perscribed muscle relaxers. The ball rolling to posterior hip has helped alot. Also his shoulder had been hurting and is now gone not expect but pleased. Is walking up/down inclines in [facility] approx 1 miles. PT-OP-G Mobility & Gait Start: 05/17/20 08:18 Freq: Status: Active Protocol: Document 05/17/20 08:58 [facility] (Rec: 05/17/20 17:00 [facility] [id number]) OP Mobility Evaluation Bed Mobility Rolling indep Supine to and from Sit indep with log roll Transfers Sit to Stand independent with use of hands OP Gait Assessment Gait Gait Assistance Required: Independent Distance (Feet) 100 Assistive Devices Assistive Device None Gait Deviations General Gait Pattern Antalgic,Decreased Stride Length,Decreased Feet Clearance,Flexed Trunk Factors Limiting Gait Function Factors Limiting Gait Function Decreased Activity Tolerance, Decreased Strength,Pain PT-OP-J Posture/Palpation/Skin Start: 05/17/20 08:18 Freq: Status: Active Protocol: Document 05/17/20 08:58 [facility] (Rec: 05/17/20 17:00 [facility] [id number]) Posture Evaluation Position Sitting Head/C-Spine Posture Forward Head T-Spine Posture Increased Kyphosis L-Spine Posture Flattened Shoulder Posture (L) Rounded,(R) Rounded Scapula Posture (L) Protracted,(R) Protracted Palpation Assessment Location cervical spine Palpation Location bilateral lumbar spine Palpation Findings Muscle Guarding,Tenderness Skin Assessment Incisional Assessment Incision Appearance/Comments well healed, no signs of symptoms of infection, good scar mobility PT-OP-K Range of Motion Start: 05/17/20 08:18 Freq: Status: Active Protocol: Document 05/17/20 08:58 [facility] (Rec: 05/17/20 17:00 [facility] [id number]) Lumbar Spine Range of Motion Lumbar Spine Active Comments deferred to do spinal precautions, high pain level Hip Goniometric Range of Motion Hip coleen Hip ROM WFL No Testing Position Supine Straight Leg Raise 55 Extension 0 Internal Rotation 25 External Rotation 60 Hip ROM Limitations Hip ROM Limitations Soft Tissue Tightness Knee Goniometric Range of Motion Knee coleen Knee ROM WFL Yes Ankle and Foot Goniometric Range of Motion Ankle and Foot coleen Ankle/Foot ROM WFL Yes PT-OP-L Special Tests Start: 05/17/20 08:18 Freq: Status: Active Protocol: Document 05/17/20 08:58 [facility] (Rec: 05/17/20 17:00 [facility] [id number]) Special Tests Lumbar Spine Special Tests Straight Leg Raise Comments unable, painful PT-OP-M Strength Start: 05/17/20 08:18 Freq: Status: Active Protocol: Document 05/17/20 08:58 [facility] (Rec: 05/17/20 17:00 [facility] [id number]) Hip Strength Hip Manual Muscle Testing coleen Comments deferred due to high pain level Knee Strength Knee Manual Muscle Testing coleen Flexion (S2) 4 Good Extension (L3) 4 Good Ankle/Foot Strength Ankle and Foot Manual Muscle Testing Right Dorsiflexion (L4) 4- Good- Plantarflexion (S1) 4- Good- Comments painful Left Dorsiflexion (L4) 4+ Good+ Plantarflexion (S1) 4+ Good+ Toe Strength Toe Manual Muscle Testing Right Great Toe Flexion 4- Good- Extension 4- Good- Left Great Toe Flexion 5 Normal Extension 5 Normal PT-OP-Q Treatments Start: 05/17/20 08:18 Freq: Status: Active Protocol: Document 06/17/20 07:31 SP (Rec: 06/17/20 08:18 SP [id number]) Cardio Equipment Bicycle (Upright) Duration (Minutes) 8 Resistance 4 Seat Position 4 Gym Equipment Shuttle Balance chains red Reps/Duration 4 min Comments WBOS, NBOS: slight head turns Therapeutic Exercises Sidelying Exercises seated SKTC stretch Side bilateral Reps/Minutes 30 sec x2 Standing Exercises sit to stands timed Reps/Minutes 5 reps in 44.19 sec band walk Resistance Lv 1 band Reps/Minutes 10 ft Neuro Re-Education Treatment Balance Activities high knee stepping Details cued COG over MATTHEW Surface stable floor Equipment mirror for support Comments Min A for balance PT-OP-R Modalities Start: 05/17/20 08:18 Freq: Status: Active Protocol: Document 05/17/20 08:58 SAK (Rec: 05/17/20 17:00 SAK [id number]) Hot Pack/Cold Pack Treatment lumbar spine Patient Position Hooklying Treatment Duration (minutes) 15 Patient Tolerance Good PT-OP-T Assessment and Plan Start: 05/17/20 08:18 Freq: Status: Active Protocol: Document 06/17/20 07:31 SP (Rec: 06/17/20 08:18 SP [id number]) Physical Therapy Assessment Goals Five Impairment QuickDash UE disability index score 95% Short Term Goal (STG) Decrease Quickdash UE disability index score to no greater than 60% 07/30/19: good goal progress STG Duration MET Furnishings Conservator Goal (LTG) Decrease Quickdash UE disability index score to no greater than 30% including able to reach overhead and behind his back for ADL's and usual daily activities without difficulty 07/30/19: good goal progress LTG Duration 08/28/19 Four Impairment Decreased flexibility in bilateral hips Half-Way Goal (LTG) Improve PSLR to at least 75 degrees, hip ER to 70 and hip IR to 45 to improve overall function LTG Duration 08/15/20 Three Impairment LBP 8 Short Term Goal (STG) Decrease LBP to no greater than 5/10 with usual ADL's in the home STG Duration 06/24/20 Half-Way Goal (LTG) Decrease LBP to no greater than 3/10 with usual activities including walks with his dog of at least 1 mile LTG Duration 08/15/20 Two Impairment decreased activity tolerance Oswestry 58% Short Term Goal (STG) Decrease Oswestry Score to no greater than 45% STG Duration 06/24/20 Furnishings Conservator Goal (LTG) Improve activity tolerance as evidenced by a decrease Oswestry Score to no greater than 25% LTG Duration 08/15/20 One Impairment weakness LE's and core Short Term Goal (STG) Patient able to tolerate 45 min land-based exercises for the purpose of strengthening and core stabilization without an increase in pain or c/o excess fatigue STG Duration 06/24/20 Half-Way Goal (LTG) Patient to be independent and compliant with HEP and aquatic exercise program for 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 LTG Duration 08/15/20 Assessment Summary Assessment Tx focused on hip strengthening and balance with COG over MATTHEW with upright posture cuing, responded well with my R> L hips are weak but therapy has been helping my back stronger. Physical Therapy Plan Frequency and Duration Frequency of Treatment 2x/Week Duration of Treatment 12 weeks Plan of Care Start Date 05/17/20 Plan of Care End Date 08/15/20 Therapeutic Interventions Therapeutic Interventions Aquatic Therapy,Home Exercise Program,Manual Therapy, Neuromuscular Re-education, Patient/Caregiver Education, Self-Care/Home Management,Soft Tissue Mobilization,Taping, Therapeutic Activities, Therapeutic Exercises Modalities Cold Pack/Ice Massage,Electric Stimulation,Hot Packs Next Visit Focus/Plan Next Note Type Treatment Note Next Visit Plan Assess reponse to last tx: flexibillity focus and decreased pain: stretching and ball wall self STMs. Continue ther ex, if recumbant elliptical tolerated ok 10 min today, try upright exercise bike.
--- NOTE | 2020-06-20 08:15 | PT.OTN ---
Current Diagnoses Post-traumatic osteoarthritis, right ankle and foot (06/20/20) Other spondylosis with radiculopathy, lumbosacral region (06/20/20) Spinal stenosis, lumbar region without neurogenic claudication (06/20/20) Abnormal posture (06/20/20) Weakness (06/20/20) Physical Therapy Treatment Note PT-OP-A Visit Information Start: 05/17/20 08:18 Freq: Status: Active Protocol: Document 06/20/20 07:32 SP (Rec: 06/20/20 08:34 SP [id number]) Out-Patient Physical Therapy Visit Information Visit Information Visit Type Treatment Note Visit Start Time 07:32 Visit Stop Time 08:15 Total Visit Minutes 43 Visit 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 History of Current Condition Extensive lumbar surgery with fusion, required 2 transfusions of blood during recovery. 4 days in hospital, discharged home with home health. To ER 2x due to severe pain. Had seroma drained. Saw Dr. Cain 1 week ago, CT showed everything looked good. See him again in July. Reports disappointment; haven't been able to do the things he wants to do. Pain low at rest, increases with activity to high level at least 8/10. Doing dishes painful. Sitting in car painful. Usual ADL's painful. Blood pressure under control. Trying to go for walks but very limited distance due to pain. Hasn't been able to do other exercises. States he recently helped a neighbor with tiling his floor because he needed money. Wearing back brace most of the time when up; extends into thoracic spine in back. Rheumatology referral but hasn 't gone yet. Patient states he injured his right foot/ ankle while in hospital for surgery when he was assisted up in bed. Has been using heat for some pain control. Denies N/T in LE's. 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 Prior Treatments and Tests Procedure: 1. L2-3, L5-S1 posterolateral and posterior interbody fusion 2. L2-3, L5-S1 posterior interbody cage placement 3. L3-4. L4-5 posterior segmental instrumentation removal 4. L3-4, L4-5 revision laminectomy with exploration of fusion 5. L2-3, L3-4, L4-5, L5-S1 posterior segmental instrumentation with pedicle screw placement 6. L4-5 posterolatearl fusion 7. [employer] of bone marrow from iliac crest through a separate incision 8. Utilization of microsurgical technique and operating microscope CT after surgery normal post- op changes. Wearing LSO brace. Future Testing and Treatments Planned Aquatic PT and land-based PT recommended, aquatic PT not open at this time due to Covid19; not opening until Phase [address] [facility]. Treatment Goals Patient/Caregiver Goals Resume being able to take usual walks and do usual activities without pain. 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 PT-OP-C Subjective Start: 05/17/20 08:18 Freq: Status: Active Protocol: Document 06/20/20 07:32 SP (Rec: 06/20/20 08:34 SP [id number]) OP-PT Subjective Patient Comments Patient Comments Pt reports B gluts were sore later in day after last tx and into the weekend but a good thing, working muscles haven't use in a while. PT-OP-G Mobility & Gait Start: 05/17/20 08:18 Freq: Status: Active Protocol: Document 05/17/20 08:58 SAK (Rec: 05/17/20 17:00 SAK [id number]) OP Mobility Evaluation Bed Mobility Rolling indep Supine to and from Sit indep with log roll Transfers Sit to Stand independent with use of hands OP Gait Assessment Gait Gait Assistance Required: Independent Distance (Feet) 100 Assistive Devices Assistive Device None Gait Deviations General Gait Pattern Antalgic,Decreased Stride Length,Decreased Feet Clearance,Flexed Trunk Factors Limiting Gait Function Factors Limiting Gait Function Decreased Activity Tolerance, Decreased Strength,Pain PT-OP-J Posture/Palpation/Skin Start: 05/17/20 08:18 Freq: Status: Active Protocol: Document 05/17/20 08:58 SAK (Rec: 05/17/20 17:00 SAK [id number]) Posture Evaluation Position Sitting Head/C-Spine Posture Forward Head T-Spine Posture Increased Kyphosis L-Spine Posture Flattened Shoulder Posture (L) Rounded,(R) Rounded Scapula Posture (L) Protracted,(R) Protracted Palpation Assessment Location cervical spine Palpation Location bilateral lumbar spine Palpation Findings Muscle Guarding,Tenderness Skin Assessment Incisional Assessment Incision Appearance/Comments well healed, no signs of symptoms of infection, good scar mobility PT-OP-K Range of Motion Start: 05/17/20 08:18 Freq: Status: Active Protocol: Document 05/17/20 08:58 [facility] (Rec: 05/17/20 17:00 [facility] [id number]) Lumbar Spine Range of Motion Lumbar Spine Active Comments deferred to do spinal precautions, high pain level Hip Goniometric Range of Motion Hip coleen Hip ROM WFL No Testing Position Supine Straight Leg Raise 55 Extension 0 Internal Rotation 25 External Rotation 60 Hip ROM Limitations Hip ROM Limitations Soft Tissue Tightness Knee Goniometric Range of Motion Knee coleen Knee ROM WFL Yes Ankle and Foot Goniometric Range of Motion Ankle and Foot coleen Ankle/Foot ROM WFL Yes PT-OP-L Special Tests Start: 05/17/20 08:18 Freq: Status: Active Protocol: Document 05/17/20 08:58 [facility] (Rec: 05/17/20 17:00 [facility] [id number]) Special Tests Lumbar Spine Special Tests Straight Leg Raise Comments unable, painful PT-OP-M Strength Start: 05/17/20 08:18 Freq: Status: Active Protocol: Document 05/17/20 08:58 [facility] (Rec: 05/17/20 17:00 [facility] [id number]) Hip Strength Hip Manual Muscle Testing coleen Comments deferred due to high pain level Knee Strength Knee Manual Muscle Testing coleen Flexion (S2) 4 Good Extension (L3) 4 Good Ankle/Foot Strength Ankle and Foot Manual Muscle Testing Right Dorsiflexion (L4) 4- Good- Plantarflexion (S1) 4- Good- Comments painful Left Dorsiflexion (L4) 4+ Good+ Plantarflexion (S1) 4+ Good+ Toe Strength Toe Manual Muscle Testing Right Great Toe Flexion 4- Good- Extension 4- Good- Left Great Toe Flexion 5 Normal Extension 5 Normal PT-OP-Q Treatments Start: 05/17/20 08:18 Freq: Status: Active Protocol: Document 06/20/20 07:32 SP (Rec: 06/20/20 08:34 SP [id number]) Cardio Equipment Treadmill Duration (Minutes) 7 Speed 1.7 Incline 0-2% Other good stride, occasional cuing for more space between feet for balance [employer] Equipment Shuttle Balance chains red Reps/Duration 4 min Comments WBOS, NBOS: slight head turns, EC approx 8 sec; stagger stance COG over MATTHEW and wt shift only Neuro Re-Education Treatment Balance Activities SLS Surface stable Reps/Duration 6 sec on R, 4 sec on L Comments cued elevated ribcage, level pelvis, glut facilitation for improved COG over MATTHEW on stationary leg high knee stepping Details over hurdles Surface floor and uneven oval cushions Equipment mirror for support Comments CGA-Min A for balance recovery with and without walking stick to assimulate beach uneven ground on walks (walks dog on leash why used 1 stick) cued slow pacing and foot clearance PT-OP-R Modalities Start: 05/17/20 08:18 Freq: Status: Active Protocol: Document 05/17/20 08:58 SAK (Rec: 05/17/20 17:00 SAK [id number]) Hot Pack/Cold Pack Treatment lumbar spine Patient Position Hooklying Treatment Duration (minutes) 15 Patient Tolerance Good PT-OP-T Assessment and Plan Start: 05/17/20 08:18 Freq: Status: Active Protocol: Document 06/20/20 07:32 SP (Rec: 06/20/20 08:34 SP [id number]) Physical Therapy Assessment Goals Five Impairment QuickDash UE disability index score 95% Short Term Goal (STG) Decrease Quickdash UE disability index score to no greater than 60% 07/30/19: good goal progress STG Duration MET Fdc Goal (LTG) Decrease Quickdash UE disability index score to no greater than 30% including able to reach overhead and behind his back for ADL's and usual daily activities without difficulty 07/30/19: good goal progress LTG Duration 08/28/19 Four Impairment Decreased flexibility in bilateral hips Fdc Goal (LTG) Improve PSLR to at least 75 degrees, hip ER to 70 and hip IR to 45 to improve overall function LTG Duration 08/15/20 Three Impairment LBP 06/20 Short Term Goal (STG) Decrease LBP to no greater than 5/10 with usual ADL's in the home STG Duration 06/24/20 Bindery Operator Goal (LTG) Decrease LBP to no greater than 3/10 with usual activities including walks with his dog of at least 1 mile LTG Duration 08/15/20 Two Impairment decreased activity tolerance Oswestry 58% Short Term Goal (STG) Decrease Oswestry Score to no greater than 45% STG Duration 06/24/20 Bindery Operator Goal (LTG) Improve activity tolerance as evidenced by a decrease Oswestry Score to no greater than 25% LTG Duration 08/15/20 One Impairment weakness LE's and core Short Term Goal (STG) Patient able to tolerate 45 min land-based exercises for the purpose of strengthening and core stabilization without an increase in pain or c/o excess fatigue STG Duration 06/24/20 Bindery Operator Goal (LTG) Patient to be independent and compliant with HEP and aquatic exercise program 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 LTG Duration 08/15/20 Assessment Summary Assessment Tx focused on glut facilitation while incorporating balance to assist safety during walks with dog on uneven terrain and back health. Educated slow pacing, upright posture and safety use of walking stick while improving LE strength. Physical Therapy Plan Frequency and Duration Frequency of Treatment 2x/Week Duration of Treatment 12 weeks Plan of Care Start Date 05/17/20 Plan of Care End Date 08/15/20 Therapeutic Interventions Therapeutic Interventions Aquatic Therapy,Home Exercise Program,Manual Therapy, Neuromuscular Re-education, Patient/Caregiver Education, Self-Care/Home Management,Soft Tissue Mobilization,Taping, Therapeutic Activities, Therapeutic Exercises Modalities Cold Pack/Ice Massage,Electric Stimulation,Hot Packs Next Visit Focus/Plan Next Note Type Treatment Note Next Visit Plan Assess reponse to last tx: Balance, dynamic strengthening ang balance with uneven surfaces today. Next tx reassess for with stretching and ball wall self STMs and continue strengthening, functional activities.
--- NOTE | 2020-06-23 08:12 | PT-OP ANOTE ---
cancelled PT appointment due to reported injury per front office staff, no details known
--- NOTE | 2020-06-27 08:18 | PT.OTN ---
Current Diagnoses Post-traumatic osteoarthritis, right ankle and foot (06/27/20) Other spondylosis with radiculopathy, lumbosacral region (06/27/20) Spinal stenosis, lumbar region without neurogenic claudication (06/27/20) Abnormal posture (06/27/20) Weakness (06/27/20) Physical Therapy Treatment Note PT-OP-A Visit Information Start: 05/17/20 08:18 Freq: Status: Active Protocol: Document 06/27/20 07:33 SP (Rec: 06/27/20 08:27 SP [id number]) Out-Patient Physical Therapy Visit Information Visit Information Visit Type Treatment Note Visit Start Time 07:33 Visit Stop Time 08:18 Total Visit Minutes 46 Visit Number 7 Number of PICKING BELT OPERATOR Visits 4 PT-OP-B Current Condition Start: 05/17/20 08:18 Freq: Status: Active Protocol: Document 05/17/20 08:58 SAK (Rec: 05/17/20 09:42 SAK [id number]) Current Condition History of Current Condition Onset Date 01/06/20 Current Complaints Perisistent, function-limiting LBP s/p surgeryt. History of Current Condition Extensive lumbar surgery with fusion, required 2 transfusions of blood during recovery. 4 days in hospital, discharged home with home health. To ER 2x due to severe pain. Had seroma drained. Saw Dr. Cain 1 week ago, CT showed everything looked good. See him again in July. Reports disappointment; haven't been able to do the things he wants to do. Pain low at rest, increases with activity to high level at least 8/10. Doing dishes painful. Sitting in car painful. Usual ADL's painful. Blood pressure under control. Trying to go for walks but very limited distance due to pain. Hasn't been able to do other exercises. States he recently helped a neighbor with tiling his floor because he needed money. Wearing back brace most of the time when up; extends into thoracic spine in back. Rheumatology referral but hasn 't gone yet. Patient states he injured his right foot/ ankle while in hospital for surgery when he was assisted up in bed. Has been using heat for some pain control. Denies N/T in LE's. 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 Prior Treatments and Tests Procedure: 1. L2-3, L5-S1 posterolateral and posterior interbody fusion 2. L2-3, L5-S1 posterior interbody cage placement 3. L3-4. L4-5 posterior segmental instrumentation removal 4. L3-4, L4-5 revision laminectomy with exploration of fusion 5. L2-3, L3-4, L4-5, L5-S1 posterior segmental instrumentation with pedicle screw placement 6. L4-5 posterolatearl fusion 7. [employer] of bone marrow from iliac crest through a separate incision 8. Utilization of microsurgical technique and operating microscope CT after surgery normal post- op changes. Wearing LSO brace. Future Testing and Treatments Planned Aquatic PT and land-based PT recommended, aquatic PT not open at this time due to Covid19; not opening until Phase 3 in [facility]. Treatment Goals Patient/Caregiver Goals Resume being able to take usual walks and do usual activities without pain. rn long term care goal is to be able to kayak again. PT-OP-C Subjective Start: 05/17/20 08:18 Freq: Status: Active Protocol: Document 06/27/20 07:33 SP (Rec: 06/27/20 08:27 SP [id number]) OP-PT Subjective Patient Comments Patient Comments Pt reported has been thinking about last tx on the balance shuttle and very suprised how bad his balance is and notices same at home if trying to stand on one leg and if closes his eyes someone would have to be there to catch me because I think I'd fall. I do alot of stretching with HS and LB to help decrease tightness has which helps but doesn't take care of it all. PT-OP-G Mobility & Gait Start: 05/17/20 08:18 Freq: Status: Active Protocol: Document 05/17/20 08:58 [facility] (Rec: 05/17/20 17:00 SAK [id number]) OP Mobility Evaluation Bed Mobility Rolling indep Supine to and from Sit indep with log roll Transfers Sit to Stand independent with use of hands OP Gait Assessment Gait Gait Assistance Required: Independent Distance (Feet) 100 Assistive Devices Assistive Device None Gait Deviations General Gait Pattern Antalgic,Decreased Stride Length,Decreased Feet Clearance,Flexed Trunk Factors Limiting Gait Function Factors Limiting Gait Function Decreased Activity Tolerance, Decreased Strength,Pain PT-OP-J Posture/Palpation/Skin Start: 05/17/20 08:18 Freq: Status: Active Protocol: Document 05/17/20 08:58 [facility] (Rec: 05/17/20 17:00 [facility] [id number]) Posture Evaluation Position Sitting Head/C-Spine Posture Forward Head T-Spine Posture Increased Kyphosis L-Spine Posture Flattened Shoulder Posture (L) Rounded,(R) Rounded Scapula Posture (L) Protracted,(R) Protracted Palpation Assessment Location cervical spine Palpation Location bilateral lumbar spine Palpation Findings Muscle Guarding,Tenderness Skin Assessment Incisional Assessment Incision Appearance/Comments well healed, no signs of symptoms of infection, good scar mobility PT-OP-K Range of Motion Start: 05/17/20 08:18 Freq: Status: Active Protocol: Document 05/17/20 08:58 [facility] (Rec: 05/17/20 17:00 [facility] [id number]) Lumbar Spine Range of Motion Lumbar Spine Active Comments deferred to do spinal precautions, high pain level Hip Goniometric Range of Motion Hip coleen Hip ROM WFL No Testing Position Supine Straight Leg Raise 55 Extension 0 Internal Rotation 25 External Rotation 60 Hip ROM Limitations Hip ROM Limitations Soft Tissue Tightness Knee Goniometric Range of Motion Knee coleen Knee ROM WFL Yes Ankle and Foot Goniometric Range of Motion Ankle and Foot coleen Ankle/Foot ROM WFL Yes PT-OP-L Special Tests Start: 05/17/20 08:18 Freq: Status: Active Protocol: Document 05/17/20 08:58 [facility] (Rec: 05/17/20 17:00 [facility] [id number]) Special Tests Lumbar Spine Special Tests Straight Leg Raise Comments unable, painful PT-OP-M Strength Start: 05/17/20 08:18 Freq: Status: Active Protocol: Document 05/17/20 08:58 [facility] (Rec: 05/17/20 17:00 [facility] [id number]) Hip Strength Hip Manual Muscle Testing coleen Comments deferred due to high pain level Knee Strength Knee Manual Muscle Testing coleen Flexion (S2) 4 Good Extension (L3) 4 Good Ankle/Foot Strength Ankle and Foot Manual Muscle Testing Right Dorsiflexion (L4) 4- Good- Plantarflexion (S1) 4- Good- Comments painful Left Dorsiflexion (L4) 4+ Good+ Plantarflexion (S1) 4+ Good+ Toe Strength Toe Manual Muscle Testing Right Great Toe Flexion 4- Good- Extension 4- Good- Left Great Toe Flexion 5 Normal Extension 5 Normal PT-OP-Q Treatments Start: 05/17/20 08:18 Freq: Status: Active Protocol: Document 06/27/20 07:33 SP (Rec: 06/27/20 08:27 SP [id number]) Therapeutic Exercises Supine Exercises piriformis stretch Side right Reps/Minutes 2x30 HS stretch Side right Reps/Minutes 2 x 30 Comments review with instruction on self TrA Supine Exercise Name PPT Reps/Minutes 5 sec multiple Comments cued tuck tailbone, core facilitation to decrease lumbar arch Sidelying Exercises clamshells w/ levle 1 band Reps/Minutes 10 bilat Comments pt fatigued-unable to do another set Sitting Exercises self STMS rolling stick/roller Sitting Exercise Name HS, calves, quads ITB PT-OP-R Modalities Start: 05/17/20 08:18 Freq: Status: Active Protocol: Document 05/17/20 08:58 SAK (Rec: 05/17/20 17:00 SAK [id number]) Hot Pack/Cold Pack Treatment lumbar spine Patient Position Hooklying Treatment Duration (minutes) 15 Patient Tolerance Good PT-OP-T Assessment and Plan Start: 05/17/20 08:18 Freq: Status: Active Protocol: Document 06/27/20 07:33 SP (Rec: 06/27/20 08:27 SP [id number]) Physical Therapy Assessment Goals Five Impairment QuickDash UE disability index score 95% Short Term Goal (STG) Decrease Quickdash UE disability index score to no greater than 60% 07/30/19: good goal progress STG Duration MET Nurse Consultant Goal (LTG) Decrease Quickdash UE disability index score to no greater than 30% including able to reach overhead and behind his back for ADL's and usual daily activities without difficulty 07/30/19: good goal progress LTG Duration 08/28/19 Four Impairment Decreased flexibility in bilateral hips Fdc Goal (LTG) Improve PSLR to at least 75 degrees, hip ER to 70 and hip IR to 45 to improve overall function LTG Duration 08/15/20 Three Impairment LBP 8 Short Term Goal (STG) Decrease LBP to no greater than 5/10 with usual ADL's in the home STG Duration 06/24/20 Nurse Consultant Goal (LTG) Decrease LBP to no greater than 3/10 with usual activities including walks with his dog of at least 1 mile LTG Duration 08/15/20 Two Impairment decreased activity tolerance Oswestry 58% Short Term Goal (STG) Decrease Oswestry Score to no greater than 45% STG Duration 06/24/20 Nurse Consultant Goal (LTG) Improve activity tolerance as evidenced by a decrease Oswestry Score to no greater than 25% LTG Duration 08/15/20 One Impairment weakness LE's and core Short Term Goal (STG) Patient able to tolerate 45 min land-based exercises for the purpose of strengthening and core stabilization without an increase in pain or c/o excess fatigue STG Duration 06/24/20 Nurse Consultant Goal (LTG) Patient to be independent and compliant with HEP and aquatic exercise program for 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 LTG Duration 08/15/20 Assessment Summary Assessment Pt tolerated introduction of hs rolling with stick but felt foam roller was more effective. Needed to WB on fists for more support (no wrist brace donned today and in past tx's). Then R hip and hs stretching to increase length with good result feedback. Pt difficult activating trans ab and PPT, spent extra time on performance to decrease LS arch in supine. Pt reported feels better end of tx. Physical Therapy Plan Frequency and Duration Frequency of Treatment 2x/Week Duration of Treatment 12 weeks Plan of Care Start Date 05/17/20 Plan of Care End Date 08/15/20 Therapeutic Interventions Therapeutic Interventions Aquatic Therapy,Home Exercise Program,Manual Therapy, Neuromuscular Re-education, Patient/Caregiver Education, Self-Care/Home Management,Soft Tissue Mobilization,Taping, Therapeutic Activities, Therapeutic Exercises Modalities Cold Pack/Ice Massage,Electric Stimulation,Hot Packs Next Visit Focus/Plan Next Note Type Treatment Note Next Visit Plan Assess reponse to last tx: stretching, self STMs to HS, LB to decreased LB tightness and reivew PPT and trans ab to decrease LB recruitment. Next tx core, R hip strengthening and functional activities.
--- NOTE | 2020-07-05 16:30 | PT.OTN ---
Current Diagnoses Post-traumatic osteoarthritis, right ankle and foot (07/05/20) Other spondylosis with radiculopathy, lumbosacral region (07/05/20) Spinal stenosis, lumbar region without neurogenic claudication (07/05/20) Abnormal posture (07/05/20) Weakness (07/05/20) Physical Therapy Treatment Note PT-OP-A Visit Information Start: 05/17/20 08:18 Freq: Status: Active Protocol: Document 07/05/20 08:14 [facility] (Rec: 07/05/20 09:01 [facility] [id number]) Out-Patient Physical Therapy Visit Information Visit Information Visit Type Treatment Note Visit Start Time 08:15 Visit Stop Time 09:00 Total Visit Minutes 45 Visit Number 8 Number of DOORSHAKER Visits 5 PT-OP-B Current Condition Start: 05/17/20 08:18 Freq: Status: Active Protocol: Document 05/17/20 08:58 [facility] (Rec: 05/17/20 09:42 [facility]AK [id number]) Current Condition History of Current Condition Onset Date 01/06/20 Current Complaints Perisistent, function-limiting LBP s/p surgeryt. History of Current Condition Extensive lumbar surgery with fusion, required 2 transfusions of blood during recovery. 4 days in hospital, discharged home with home health. To ER 2x due to severe pain. Had seroma drained. Saw Dr. Cain 1 week ago, CT showed everything looked good. See him again in July. Reports disappointment; haven't been able to do the things he wants to do. Pain low at rest, increases with activity to high level at least 8/10. Doing dishes painful. Sitting in car painful. Usual ADL's painful. Blood pressure under control. Trying to go for walks but very limited distance due to pain. Hasn't been able to do other exercises. States he recently helped a neighbor with tiling his floor because he needed money. Wearing back brace most of the time when up; extends into thoracic spine in back. Rheumatology referral but hasn 't gone yet. Patient states he injured his right foot/ ankle while in hospital for surgery when he was assisted up in bed. Has been using heat for some pain control. Denies N/T in LE's. 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 Prior Treatments and Tests Procedure: 1. L2-3, L5-S1 posterolateral and posterior interbody fusion 2. L2-3, L5-S1 posterior interbody cage placement 3. L3-4. L4-5 posterior segmental instrumentation removal 4. L3-4, L4-5 revision laminectomy with exploration of fusion 5. L2-3, L3-4, L4-5, L5-S1 posterior segmental instrumentation with pedicle screw placement 6. L4-5 posterolatearl fusion 7. [place] of bone marrow from iliac crest through a separate incision 8. Utilization of microsurgical technique and operating microscope CT after surgery normal post- op changes. Wearing LSO brace. Future Testing and Treatments Planned Aquatic PT and land-based PT recommended, aquatic PT not open at this time due to Covid19; not opening until Phase 3 in [facility]. Treatment Goals Patient/Caregiver Goals Resume being able to take usual walks and do usual activities without pain. 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 PT-OP-C Subjective Start: 05/17/20 08:18 Freq: Status: Active Protocol: Document 07/05/20 08:14 [facility] (Rec: 07/05/20 09:01 [facility] [id number]) OP-PT Subjective Patient Comments Patient Comments Stiff this am, trying to do more stretching at home. Still very concerned about his balance. PT-OP-G Mobility & Gait Start: 05/17/20 08:18 Freq: Status: Active Protocol: Document 05/17/20 08:58 [facility] (Rec: 05/17/20 17:00 [facility] [id number]) OP Mobility Evaluation Bed Mobility Rolling indep Supine to and from Sit indep with log roll Transfers Sit to Stand independent with use of hands OP Gait Assessment Gait Gait Assistance Required: Independent Distance (Feet) 100 Assistive Devices Assistive Device None Gait Deviations General Gait Pattern Antalgic,Decreased Stride Length,Decreased Feet Clearance,Flexed Trunk Factors Limiting Gait Function Factors Limiting Gait Function Decreased Activity Tolerance, Decreased Strength,Pain PT-OP-J Posture/Palpation/Skin Start: 05/17/20 08:18 Freq: Status: Active Protocol: Document 05/17/20 08:58 [facility] (Rec: 05/17/20 17:00 [facility] [id number]) Posture Evaluation Position Sitting Head/C-Spine Posture Forward Head T-Spine Posture Increased Kyphosis L-Spine Posture Flattened Shoulder Posture (L) Rounded,(R) Rounded Scapula Posture (L) Protracted,(R) Protracted Palpation Assessment Location cervical spine Palpation Location bilateral lumbar spine Palpation Findings Muscle Guarding,Tenderness Skin Assessment Incisional Assessment Incision Appearance/Comments well healed, no signs of symptoms of infection, good scar mobility PT-OP-K Range of Motion Start: 05/17/20 08:18 Freq: Status: Active Protocol: Document 05/17/20 08:58 [facility] (Rec: 05/17/20 17:00 [facility] [id number]) Lumbar Spine Range of Motion Lumbar Spine Active Comments deferred to do spinal precautions, high pain level Hip Goniometric Range of Motion Hip coleen Hip ROM WFL No Testing Position Supine Straight Leg Raise 55 Extension 0 Internal Rotation 25 External Rotation 60 Hip ROM Limitations Hip ROM Limitations Soft Tissue Tightness Knee Goniometric Range of Motion Knee coleen Knee ROM WFL Yes Ankle and Foot Goniometric Range of Motion Ankle and Foot coleen Ankle/Foot ROM WFL Yes PT-OP-L Special Tests Start: 05/17/20 08:18 Freq: Status: Active Protocol: Document 05/17/20 08:58 [facility] (Rec: 05/17/20 17:00 [facility] [id number]) Special Tests Lumbar Spine Special Tests Straight Leg Raise Comments unable, painful PT-OP-M Strength Start: 05/17/20 08:18 Freq: Status: Active Protocol: Document 05/17/20 08:58 [facility] (Rec: 05/17/20 17:00 [facility] [id number]) Hip Strength Hip Manual Muscle Testing coleen Comments deferred due to high pain level Knee Strength Knee Manual Muscle Testing coleen Flexion (S2) 4 Good Extension (L3) 4 Good Ankle/Foot Strength Ankle and Foot Manual Muscle Testing Right Dorsiflexion (L4) 4- Good- Plantarflexion (S1) 4- Good- Comments painful Left Dorsiflexion (L4) 4+ Good+ Plantarflexion (S1) 4+ Good+ Toe Strength Toe Manual Muscle Testing Right Great Toe Flexion 4- Good- Extension 4- Good- Left Great Toe Flexion 5 Normal Extension 5 Normal PT-OP-Q Treatments Start: 05/17/20 08:18 Freq: Status: Active Protocol: Document 07/05/20 08:14 [facility] (Rec: 07/05/20 09:01 [facility] [id number]) Cardio Equipment Recumbent Stepper (Sci-Fit) Duration (Minutes) 10 Resistance 3.0 Seat Position 13 Gym Equipment Shuttle Recovery Bilateral Squats Resistance 75 Shuttle Recovery Platform Stable Reps/Time 2x10 Shuttle Balance chains red Details bal and wt shift Reps/Duration 5 min Comments emphasis on core activation and stabilization Therapeutic Exercises Supine Exercises piriformis stretch Side right Reps/Minutes 2x30 Comments raquetball for muscle release HS stretch Side right Reps/Minutes 2 x 30 TrA Supine Exercise Name PPT Reps/Minutes 5 sec multiple Comments cued tuck tailbone, core facilitation to decrease lumbar arch Manual Therapy Treatment Soft Tissue Mobilization hamstrings Comments foam roller Neuro Re-Education Treatment Balance Activities Eyes closed Reps/Duration 2 min SLS Surface stable Reps/Duration 6 sec on R, 4 sec on L Comments cued elevated ribcage, level pelvis, glut facilitation for improved COG over MATTHEW on stationary leg PT-OP-R Modalities Start: 05/17/20 08:18 Freq: Status: Active Protocol: Document 05/17/20 08:58 [facility] (Rec: 05/17/20 17:00 [facility] [id number]) Hot Pack/Cold Pack Treatment lumbar spine Patient Position Hooklying Treatment Duration (minutes) 15 Patient Tolerance Good PT-OP-T Assessment and Plan Start: 05/17/20 08:18 Freq: Status: Active Protocol: Document 07/05/20 08:14 [facility] (Rec: 07/05/20 09:01 [facility] [id number]) Physical Therapy Assessment Goals Five Impairment QuickDash UE disability index score 95% Short Term Goal (STG) Decrease Quickdash UE disability index score to no greater than 60% 07/30/19: good goal progress STG Duration MET Life Consultant Goal (LTG) Decrease Quickdash UE disability index score to no greater than 30% including able to reach overhead and behind his back for ADL's and usual daily activities without difficulty 07/30/19: good goal progress LTG Duration 08/28/19 Four Impairment Decreased flexibility in bilateral hips Shelter Goal (LTG) Improve PSLR to at least 75 degrees, hip ER to 70 and hip IR to 45 to improve overall function LTG Duration 08/15/20 Three Impairment LBP 8/ Short Term Goal (STG) Decrease LBP to no greater than 5/10 with usual ADL's in the home STG Duration 06/24/20 Life Consultant Goal (LTG) Decrease LBP to no greater than 3/10 with usual activities including walks with his dog of at least 1 mile LTG Duration 08/15/20 Two Impairment decreased activity tolerance Oswestry 58% Short Term Goal (STG) Decrease Oswestry Score to no greater than 45% STG Duration 06/24/20 Shelter Goal (LTG) Improve activity tolerance as evidenced by a decrease Oswestry Score to no greater than 25% LTG Duration 08/15/20 One Impairment weakness LE's and core Short Term Goal (STG) Patient able to tolerate 45 min land-based exercises for the purpose of strengthening and core stabilization without an increase in pain or c/o excess fatigue STG Duration 06/24/20 Life Consultant Goal (LTG) Patient to be independent and compliant with HEP and aquatic exercise program for the purposes of residential fitness and 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 LTG Duration 08/15/20 Assessment Summary Assessment Decreased pain and stiffness after treatment, refused hot pack reporting no need. Patient needs moderate cues for core muscle activation. Physical Therapy Plan Frequency and Duration Frequency of Treatment 2x/Week Duration of Treatment 12 weeks Plan of Care Start Date 05/17/20 Plan of Care End Date 08/15/20 Therapeutic Interventions Therapeutic Interventions Aquatic Therapy,Home Exercise Program,Manual Therapy, Neuromuscular Re-education, Patient/Caregiver Education, Self-Care/Home Management,Soft Tissue Mobilization,Taping, Therapeutic Activities, Therapeutic Exercises Modalities Cold Pack/Ice Massage,Electric Stimulation,Hot Packs Next Visit Focus/Plan Next Note Type Treatment Note Next Visit Plan Continue progression of core and LE strengthening and stabilization
--- NOTE | 2020-07-07 09:02 | PT.OTN ---
Current Diagnoses Post-traumatic osteoarthritis, right ankle and foot (07/07/20) Other spondylosis with radiculopathy, lumbosacral region (07/07/20) Spinal stenosis, lumbar region without neurogenic claudication (07/07/20) Abnormal posture (07/07/20) Weakness (07/07/20) Physical Therapy Treatment Note PT-OP-A Visit Information Start: 05/17/20 08:18 Freq: Status: Active Protocol: Document 07/07/20 08:14 [facility] (Rec: 07/07/20 09:02 [facility] [id number]) Out-Patient Physical Therapy Visit Information Visit Information Visit Type Treatment Note Visit Start Time 08:15 Visit Stop Time 09:12 Total Visit Minutes 57 Visit Number 9 Number of MEDIUM CYCLE SALESPERSON Visits 0 Evaluation Information Evaluation Date 05/17/20 Precautions Precautions PMH: peripheral neuropathy, RA , HTN, DM, anxiety, chronic back pain, depression, memory dysfunction PT-OP-B Current Condition Start: 05/17/20 08:18 Freq: Status: Active Protocol: Document 05/17/20 08:58 [facility] (Rec: 05/17/20 09:42 [facility] [id number]) Current Condition History of Current Condition Onset Date 01/06/20 Current Complaints Perisistent, function-limiting LBP s/p surgeryt. History of Current Condition Extensive lumbar surgery with fusion, required 2 transfusions of blood during recovery. 4 days in hospital, discharged home with home health. To ER 2x due to severe pain. Had seroma drained. Saw Dr. Cain 1 week ago, CT showed everything looked good. See him again in July. Reports disappointment; haven't been able to do the things he wants to do. Pain low at rest, increases with activity to high level at least 8/10. Doing dishes painful. Sitting in car painful. Usual ADL's painful. Blood pressure under control. Trying to go for walks but very limited distance due to pain. Hasn't been able to do other exercises. States he recently helped a neighbor with tiling his floor because he needed money. Wearing back brace most of the time when up; extends into thoracic spine in back. Rheumatology referral but hasn 't gone yet. Patient states he injured his right foot/ ankle while in hospital for surgery when he was assisted up in bed. Has been using heat for some pain control. Denies N/T in LE's. 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 Prior Treatments and Tests Procedure: 1. L2-3, L5-S1 posterolateral and posterior interbody fusion 2. L2-3, L5-S1 posterior interbody cage placement 3. L3-4. L4-5 posterior segmental instrumentation removal 4. L3-4, L4-5 revision laminectomy with exploration of fusion 5. L2-3, L3-4, L4-5, L5-S1 posterior segmental instrumentation with pedicle screw placement 6. L4-5 posterolatearl fusion 7. [place] of bone marrow from iliac crest through a separate incision 8. Utilization of microsurgical technique and operating microscope CT after surgery normal post- op changes. Wearing LSO brace. Future Testing and Treatments Planned Aquatic PT and land-based PT recommended, aquatic PT not open at this time due to Covid19; not opening until Phase 3 in [facility]. Treatment Goals Patient/Caregiver Goals Resume being able to take usual walks and do usual activities without pain. correction goal is to be able to kayak again. PT-OP-C Subjective Start: 05/17/20 08:18 Freq: Status: Active Protocol: Document 07/07/20 08:14 [facility] (Rec: 07/07/20 09:02 [facility] [id number]) OP-PT Subjective Patient Comments Patient Comments Having a hard time straightening up PT-OP-G Mobility & Gait Start: 05/17/20 08:18 Freq: Status: Active Protocol: Document 05/17/20 08:58 [facility] (Rec: 05/17/20 17:00 [facility] [id number]) OP Mobility Evaluation Bed Mobility Rolling indep Supine to and from Sit indep with log roll Transfers Sit to Stand independent with use of hands OP Gait Assessment Gait Gait Assistance Required: Independent Distance (Feet) 100 Assistive Devices Assistive Device None Gait Deviations General Gait Pattern Antalgic,Decreased Stride Length,Decreased Feet Clearance,Flexed Trunk Factors Limiting Gait Function Factors Limiting Gait Function Decreased Activity Tolerance, Decreased Strength,Pain PT-OP-J Posture/Palpation/Skin Start: 05/17/20 08:18 Freq: Status: Active Protocol: Document 05/17/20 08:58 [facility] (Rec: 05/17/20 17:00 [facility] [id number]) Posture Evaluation Position Sitting Head/C-Spine Posture Forward Head T-Spine Posture Increased Kyphosis L-Spine Posture Flattened Shoulder Posture (L) Rounded,(R) Rounded Scapula Posture (L) Protracted,(R) Protracted Palpation Assessment Location cervical spine Palpation Location bilateral lumbar spine Palpation Findings Muscle Guarding,Tenderness Skin Assessment Incisional Assessment Incision Appearance/Comments well healed, no signs of symptoms of infection, good scar mobility PT-OP-K Range of Motion Start: 05/17/20 08:18 Freq: Status: Active Protocol: Document 05/17/20 08:58 [facility] (Rec: 05/17/20 17:00 [facility] [id number]) Lumbar Spine Range of Motion Lumbar Spine Active Comments deferred to do spinal precautions, high pain level Hip Goniometric Range of Motion Hip coleen Hip ROM WFL No Testing Position Supine Straight Leg Raise 55 Extension 0 Internal Rotation 25 External Rotation 60 Hip ROM Limitations Hip ROM Limitations Soft Tissue Tightness Knee Goniometric Range of Motion Knee coleen Knee ROM WFL Yes Ankle and Foot Goniometric Range of Motion Ankle and Foot coleen Ankle/Foot ROM WFL Yes PT-OP-L Special Tests Start: 05/17/20 08:18 Freq: Status: Active Protocol: Document 05/17/20 08:58 [facility] (Rec: 05/17/20 17:00 [facility] [id number]) Special Tests Lumbar Spine Special Tests Straight Leg Raise Comments unable, painful PT-OP-M Strength Start: 05/17/20 08:18 Freq: Status: Active Protocol: Document 05/17/20 08:58 [facility] (Rec: 05/17/20 17:00 [facility] [id number]) Hip Strength Hip Manual Muscle Testing coleen Comments deferred due to high pain level Knee Strength Knee Manual Muscle Testing coleen Flexion (S2) 4 Good Extension (L3) 4 Good Ankle/Foot Strength Ankle and Foot Manual Muscle Testing Right Dorsiflexion (L4) 4- Good- Plantarflexion (S1) 4- Good- Comments painful Left Dorsiflexion (L4) 4+ Good+ Plantarflexion (S1) 4+ Good+ Toe Strength Toe Manual Muscle Testing Right Great Toe Flexion 4- Good- Extension 4- Good- Left Great Toe Flexion 5 Normal Extension 5 Normal PT-OP-Q Treatments Start: 05/17/20 08:18 Freq: Status: Active Protocol: Document 07/07/20 08:14 [facility] (Rec: 07/07/20 09:02 [facility] [id number]) Cardio Equipment Recumbent Stepper (Sci-Fit) Duration (Minutes) 10 Resistance 3.0 Seat Position 13 Therapeutic Exercises Supine Exercises TrA with glut and quad set Reps/Minutes 10x2 TrA with glut set Reps/Minutes 10x Comments with breath bridge Reps/Minutes 8 x2 Comments segmental piriformis stretch Side right Reps/Minutes 2x30 Comments raquetball for muscle release SKTC Reps/Minutes 3x30 Comments review with instructoin on self HS stretch Side right Reps/Minutes 2 x 30 TrA Supine Exercise Name PPT Reps/Minutes 5 sec multiple Comments cued tuck tailbone, core facilitation to decrease lumbar arch Self-Care/Home Management Treatment Education Patient Education Home Exercise Program,Posture Other Education Reviewed muscle activation, correct TrA activation due to patient difficulty. Used pictures of patient for postural education. PT-OP-R Modalities Start: 05/17/20 08:18 Freq: Status: Active Protocol: Document 05/17/20 08:58 [facility] (Rec: 05/17/20 17:00 [facility] [id number]) Hot Pack/Cold Pack Treatment lumbar spine Patient Position Hooklying Treatment Duration (minutes) 15 Patient Tolerance Good PT-OP-T Assessment and Plan Start: 05/17/20 08:18 Freq: Status: Active Protocol: Document 07/07/20 08:14 [facility] (Rec: 07/07/20 09:02 [facility] [id number]) Physical Therapy Assessment Goals Five Impairment QuickDash UE disability index score 95% Short Term Goal (STG) Decrease Quickdash UE disability index score to no greater than 60% 07/30/19: good goal progress STG Duration MET Alf Goal (LTG) Decrease Quickdash UE disability index score to no greater than 30% including able to reach overhead and behind his back for ADL's and usual daily activities without difficulty 07/30/19: good goal progress LTG Duration 08/28/19 Four Impairment Decreased flexibility in bilateral hips Alf Goal (LTG) Improve PSLR to at least 75 degrees, hip ER to 70 and hip IR to 45 to improve overall function LTG Duration 08/15/20 Three Impairment LBP 8 Short Term Goal (STG) Decrease LBP to no greater than 5/10 with usual ADL's in the home STG Duration 06/24/20 Mail Manager Goal (LTG) Decrease LBP to no greater than 3/10 with usual activities including walks with his dog of at least 1 mile LTG Duration 08/15/20 Two Impairment decreased activity tolerance Oswestry 58% Short Term Goal (STG) Decrease Oswestry Score to no greater than 45% STG Duration 06/24/20 Mail Manager Goal (LTG) Improve activity tolerance as evidenced by a decrease Oswestry Score to no greater than 25% LTG Duration 08/15/20 One Impairment weakness LE's and core Short Term Goal (STG) Patient able to tolerate 45 min land-based exercises for the purpose of strengthening and core stabilization without an increase in pain or c/o excess fatigue STG Duration 06/24/20 Mail Manager Goal (LTG) Patient to be independent and compliant with HEP and aquatic exercise program for the purposes of retirement fitness and 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 LTG Duration 08/15/20 Assessment Summary Assessment Patient having difficulty with correct TrA activation, improved with intense focus and addition of breath for muscle activation. Use of photos helpful for postural education with much improvement by the end of session. Physical Therapy Plan Frequency and Duration Frequency of Treatment 2x/Week Duration of Treatment 12 weeks Plan of Care Start Date 05/17/20 Plan of Care End Date 08/15/20 Therapeutic Interventions Therapeutic Interventions Aquatic Therapy,Home Exercise Program,Manual Therapy, Neuromuscular Re-education, Patient/Caregiver Education, Self-Care/Home Management,Soft Tissue Mobilization,Taping, Therapeutic Activities, Therapeutic Exercises Modalities Cold Pack/Ice Massage,Electric Stimulation,Hot Packs Next Visit Focus/Plan Next Note Type Treatment Note Next Visit Plan Continue progression of core and LE strengthening and stabilization
--- NOTE | 2020-07-12 09:01 | PT.OTN ---
Current Diagnoses Post-traumatic osteoarthritis, right ankle and foot (07/12/20) Other spondylosis with radiculopathy, lumbosacral region (07/12/20) Spinal stenosis, lumbar region without neurogenic claudication (07/12/20) Abnormal posture (07/12/20) Weakness (07/12/20) Physical Therapy Treatment Note PT-OP-A Visit Information Start: 05/17/20 08:18 Freq: Status: Active Protocol: Document 07/12/20 08:18 [facility] (Rec: 07/12/20 09:00 SAK [id number]) Out-Patient Physical Therapy Visit Information Visit Information Visit Type Treatment Note Visit Start Time 08:15 Visit Stop Time 09:00 Total Visit Minutes 45 Visit Number 10 Number of ADMISSIONS CLINICIAN Visits 0 Evaluation Information Evaluation Date 05/17/20 Precautions Precautions PMH: peripheral neuropathy, RA , HTN, DM, anxiety, chronic back pain, depression, memory dysfunction PT-OP-B Current Condition Start: 05/17/20 08:18 Freq: Status: Active Protocol: Document 05/17/20 08:58 [facility] (Rec: 05/17/20 09:42 [facility] [id number]) Current Condition History of Current Condition Onset Date 01/06/20 Current Complaints Perisistent, function-limiting LBP s/p surgeryt. History of Current Condition Extensive lumbar surgery with fusion, required 2 transfusions of blood during recovery. 4 days in hospital, discharged home with home health. To ER 2x due to severe pain. Had seroma drained. Saw Dr. Cain 1 week ago, CT showed everything looked good. See him again in July. Reports disappointment; haven't been able to do the things he wants to do. Pain low at rest, increases with activity to high level at least 8/10. Doing dishes painful. Sitting in car painful. Usual ADL's painful. Blood pressure under control. Trying to go for walks but very limited distance due to pain. Hasn't been able to do other exercises. States he recently helped a neighbor with tiling his floor because he needed money. Wearing back brace most of the time when up; extends into thoracic spine in back. Rheumatology referral but hasn 't gone yet. Patient states he injured his right foot/ ankle while in hospital for surgery when he was assisted up in bed. Has been using heat for some pain control. Denies N/T in LE's. 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 Prior Treatments and Tests Procedure: 1. L2-3, L5-S1 posterolateral and posterior interbody fusion 2. L2-3, L5-S1 posterior interbody cage placement 3. L3-4. L4-5 posterior segmental instrumentation removal 4. L3-4, L4-5 revision laminectomy with exploration of fusion 5. L2-3, L3-4, L4-5, L5-S1 posterior segmental instrumentation with pedicle screw placement 6. L4-5 posterolatearl fusion 7. [place] of bone marrow from iliac crest through a separate incision 8. Utilization of microsurgical technique and operating microscope CT after surgery normal post- op changes. Wearing LSO brace. Future Testing and Treatments Planned Aquatic PT and land-based PT recommended, aquatic PT not open at this time due to Covid19; not opening until Phase 3 in [facility]. Treatment Goals Patient/Caregiver Goals Resume being able to take usual walks and do usual activities without pain. long term care social worker goal is to be able to kayak again. PT-OP-C Subjective Start: 05/17/20 08:18 Freq: Status: Active Protocol: Document 07/12/20 08:18 [facility] (Rec: 07/12/20 09:00 [facility] [id number]) OP-PT Subjective Patient Comments Patient Comments Reports he battled cramping in his whole body last need, hardly slept. Possibly related to [employer]. PT-OP-G Mobility & Gait Start: 05/17/20 08:18 Freq: Status: Active Protocol: Document 05/17/20 08:58 [facility] (Rec: 05/17/20 17:00 [facility] [id number]) OP Mobility Evaluation Bed Mobility Rolling indep Supine to and from Sit indep with log roll Transfers Sit to Stand independent with use of hands OP Gait Assessment Gait Gait Assistance Required: Independent Distance (Feet) 100 Assistive Devices Assistive Device None Gait Deviations General Gait Pattern Antalgic,Decreased Stride Length,Decreased Feet Clearance,Flexed Trunk Factors Limiting Gait Function Factors Limiting Gait Function Decreased Activity Tolerance, Decreased Strength,Pain PT-OP-J Posture/Palpation/Skin Start: 05/17/20 08:18 Freq: Status: Active Protocol: Document 05/17/20 08:58 [facility] (Rec: 05/17/20 17:00 [facility] [id number]) Posture Evaluation Position Sitting Head/C-Spine Posture Forward Head T-Spine Posture Increased Kyphosis L-Spine Posture Flattened Shoulder Posture (L) Rounded,(R) Rounded Scapula Posture (L) Protracted,(R) Protracted Palpation Assessment Location cervical spine Palpation Location bilateral lumbar spine Palpation Findings Muscle Guarding,Tenderness Skin Assessment Incisional Assessment Incision Appearance/Comments well healed, no signs of symptoms of infection, good scar mobility PT-OP-K Range of Motion Start: 05/17/20 08:18 Freq: Status: Active Protocol: Document 05/17/20 08:58 [facility] (Rec: 05/17/20 17:00 [facility] [id number]) Lumbar Spine Range of Motion Lumbar Spine Active Comments deferred to do spinal precautions, high pain level Hip Goniometric Range of Motion Hip coleen Hip ROM WFL No Testing Position Supine Straight Leg Raise 55 Extension 0 Internal Rotation 25 External Rotation 60 Hip ROM Limitations Hip ROM Limitations Soft Tissue Tightness Knee Goniometric Range of Motion Knee coleen Knee ROM WFL Yes Ankle and Foot Goniometric Range of Motion Ankle and Foot coleen Ankle/Foot ROM WFL Yes PT-OP-L Special Tests Start: 05/17/20 08:18 Freq: Status: Active Protocol: Document 05/17/20 08:58 [facility] (Rec: 05/17/20 17:00 [facility] [id number]) Special Tests Lumbar Spine Special Tests Straight Leg Raise Comments unable, painful PT-OP-M Strength Start: 05/17/20 08:18 Freq: Status: Active Protocol: Document 05/17/20 08:58 [facility] (Rec: 05/17/20 17:00 [facility] [id number]) Hip Strength Hip Manual Muscle Testing coleen Comments deferred due to high pain level Knee Strength Knee Manual Muscle Testing coleen Flexion (S2) 4 Good Extension (L3) 4 Good Ankle/Foot Strength Ankle and Foot Manual Muscle Testing Right Dorsiflexion (L4) 4- Good- Plantarflexion (S1) 4- Good- Comments painful Left Dorsiflexion (L4) 4+ Good+ Plantarflexion (S1) 4+ Good+ Toe Strength Toe Manual Muscle Testing Right Great Toe Flexion 4- Good- Extension 4- Good- Left Great Toe Flexion 5 Normal Extension 5 Normal PT-OP-Q Treatments Start: 05/17/20 08:18 Freq: Status: Active Protocol: Document 07/12/20 08:18 [facility] (Rec: 07/12/20 09:00 [facility] [id number]) Cardio Equipment Recumbent Stepper (Sci-Fit) Duration (Minutes) 10 Resistance 3.0 Seat Position 13 Gym Equipment Shuttle Recovery Bilateral Squats Resistance 75 Shuttle Recovery Platform Stable Reps/Time 2x10 Shuttle Balance chains red Details bal and wt shift Reps/Duration 5 min Comments emphasis on core activation and stabilization Sport Cord forward Cord/Resistance green Reps/Duration 6x Comments ues for upright posture, core muscle activation, gluteal activation Therapeutic Exercises Supine Exercises TrA with glut and quad set Reps/Minutes 10x2 TrA with glut set Reps/Minutes 10x Comments with breath SKTC Reps/Minutes 3x30 Comments review with instructoin on self HS stretch Side bilateral Reps/Minutes 2 x 30 Sitting Exercises piriformis stretch Reps/Minutes 2x 30 Standing Exercises HC stretch Equipment Used ORLIN Reps/Minutes 2x Self-Care/Home Management Treatment Education Patient Education Body Mechanics Other Education body mechanics for wood activities, lifting PT-OP-R Modalities Start: 05/17/20 08:18 Freq: Status: Active Protocol: Document 05/17/20 08:58 [facility] (Rec: 05/17/20 17:00 [facility] [id number]) Hot Pack/Cold Pack Treatment lumbar spine Patient Position Hooklying Treatment Duration (minutes) 15 Patient Tolerance Good PT-OP-T Assessment and Plan Start: 05/17/20 08:18 Freq: Status: Active Protocol: Document 07/12/20 08:18 [facility] (Rec: 07/12/20 09:00 [facility] [id number]) Physical Therapy Assessment Goals Five Impairment QuickDash UE disability index score 95% Short Term Goal (STG) Decrease Quickdash UE disability index score to no greater than 60% 07/30/19: good goal progress STG Duration MET Snf Goal (LTG) Decrease Quickdash UE disability index score to no greater than 30% including able to reach overhead and behind his back for ADL's and usual daily activities without difficulty 07/30/19: good goal progress LTG Duration 08/28/19 Four Impairment Decreased flexibility in bilateral hips Snf Goal (LTG) Improve PSLR to at least 75 degrees, hip ER to 70 and hip IR to 45 to improve overall function LTG Duration 08/15/20 Three Impairment LBP 8/10 Short Term Goal (STG) Decrease LBP to no greater than 5/10 with usual ADL's in the home STG Duration 06/24/20 Snf Goal (LTG) Decrease LBP to no greater than 3/10 with usual activities including walks with his dog of at least 1 mile LTG Duration 08/15/20 Two Impairment decreased activity tolerance Oswestry 58% Short Term Goal (STG) Decrease Oswestry Score to no greater than 45% STG Duration 06/24/20 Leadership Development Instructor Goal (LTG) Improve activity tolerance as evidenced by a decrease Oswestry Score to no greater than 25% LTG Duration 08/15/20 One Impairment weakness LE's and core Short Term Goal (STG) Patient able to tolerate 45 min land-based exercises for the purpose of strengthening and core stabilization without an increase in pain or c/o excess fatigue STG Duration 06/24/20 Leadership Development Instructor Goal (LTG) Patient to be independent and compliant with HEP and aquatic exercise program for the purposes of [facility] fitness and 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 LTG Duration 08/15/20 Assessment Summary Assessment Patient needed body mechanics re-education for lifting as was doing improperly with wood project at home. Improved postural correction today but needs cues. Physical Therapy Plan Frequency and Duration Frequency of Treatment 2x/Week Duration of Treatment 12 weeks Plan of Care Start Date 05/17/20 Plan of Care End Date 08/15/20 Therapeutic Interventions Therapeutic Interventions Aquatic Therapy,Home Exercise Program,Manual Therapy, Neuromuscular Re-education, Patient/Caregiver Education, Self-Care/Home Management,Soft Tissue Mobilization,Taping, Therapeutic Activities, Therapeutic Exercises Modalities Cold Pack/Ice Massage,Electric Stimulation,Hot Packs Next Visit Focus/Plan Next Note Type Treatment Note Next Visit Plan Incoroporate gentle yoga per patient request.
--- NOTE | 2020-07-12 12:10 | PT.OPPN ---
Current Diagnoses Post-traumatic osteoarthritis, right ankle and foot (07/12/20) Other spondylosis with radiculopathy, lumbosacral region (07/12/20) Spinal stenosis, lumbar region without neurogenic claudication (07/12/20) Abnormal posture (07/12/20) Weakness (07/12/20) Physical Therapy Progress Note PT-OP-A Visit Information Start: 05/17/20 08:18 Freq: Status: Active Protocol: Document 07/12/20 08:18 [facility] (Rec: 07/12/20 09:00 SAK [id number]) Out-Patient Physical Therapy Visit Information Visit Information Visit Type Treatment Note Visit Start Time 08:15 Visit Stop Time 09:00 Total Visit Minutes 45 Visit Number 10 Number of PHYSICIAN SCRIBE Visits 0 Evaluation Information Evaluation Date 05/17/20 Precautions Precautions PMH: peripheral neuropathy, RA , HTN, DM, anxiety, chronic back pain, depression, memory dysfunction PT-OP-B Current Condition Start: 05/17/20 08:18 Freq: Status: Active Protocol: Document 05/17/20 08:58 [facility] (Rec: 05/17/20 09:42 [facility] [id number]) Current Condition History of Current Condition Onset Date 01/06/20 Current Complaints Perisistent, function-limiting LBP s/p surgeryt. History of Current Condition Extensive lumbar surgery with fusion, required 2 transfusions of blood during recovery. 4 days in hospital, discharged home with home health. To ER 2x due to severe pain. Had seroma drained. Saw Dr. Cain 1 week ago, CT showed everything looked good. See him again in July. Reports disappointment; haven't been able to do the things he wants to do. Pain low at rest, increases with activity to high level at least 8/10. Doing dishes painful. Sitting in car painful. Usual ADL's painful. Blood pressure under control. Trying to go for walks but very limited distance due to pain. Hasn't been able to do other exercises. States he recently helped a neighbor with tiling his floor because he needed money. Wearing back brace most of the time when up; extends into thoracic spine in back. Rheumatology referral but hasn 't gone yet. Patient states he injured his right foot/ ankle while in hospital for surgery when he was assisted up in bed. Has been using heat for some pain control. Denies N/T in LE's. 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 Prior Treatments and Tests Procedure: 1. L2-3, L5-S1 posterolateral and posterior interbody fusion 2. L2-3, L5-S1 posterior interbody cage placement 3. L3-4. L4-5 posterior segmental instrumentation removal 4. L3-4, L4-5 revision laminectomy with exploration of fusion 5. L2-3, L3-4, L4-5, L5-S1 posterior segmental instrumentation with pedicle screw placement 6. L4-5 posterolatearl fusion 7. [place] of bone marrow from iliac crest through a separate incision 8. Utilization of microsurgical technique and operating microscope CT after surgery normal post- op changes. Wearing LSO brace. Future Testing and Treatments Planned Aquatic PT and land-based PT recommended, aquatic PT not open at this time due to Covid19; not opening until Phase 3 in [facility]. Treatment Goals Patient/Caregiver Goals Resume being able to take usual walks and do usual activities without pain. 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 PT-OP-C Subjective Start: 05/17/20 08:18 Freq: Status: Active Protocol: Document 07/12/20 08:18 [facility] (Rec: 07/12/20 09:00 [facility] [id number]) OP-PT Subjective Patient Comments Patient Comments Reports he battled cramping in his whole body last need, hardly slept. Possibly related to [employer]. PT-OP-G Mobility & Gait Start: 05/17/20 08:18 Freq: Status: Active Protocol: Document 05/17/20 08:58 [facility] (Rec: 05/17/20 17:00 [facility] [id number]) OP Mobility Evaluation Bed Mobility Rolling indep Supine to and from Sit indep with log roll Transfers Sit to Stand independent with use of hands OP Gait Assessment Gait Gait Assistance Required: Independent Distance (Feet) 100 Assistive Devices Assistive Device None Gait Deviations General Gait Pattern Antalgic,Decreased Stride Length,Decreased Feet Clearance,Flexed Trunk Factors Limiting Gait Function Factors Limiting Gait Function Decreased Activity Tolerance, Decreased Strength,Pain PT-OP-J Posture/Palpation/Skin Start: 05/17/20 08:18 Freq: Status: Active Protocol: Document 05/17/20 08:58 [facility] (Rec: 05/17/20 17:00 [facility] [id number]) Posture Evaluation Position Sitting Head/C-Spine Posture Forward Head T-Spine Posture Increased Kyphosis L-Spine Posture Flattened Shoulder Posture (L) Rounded,(R) Rounded Scapula Posture (L) Protracted,(R) Protracted Palpation Assessment Location cervical spine Palpation Location bilateral lumbar spine Palpation Findings Muscle Guarding,Tenderness Skin Assessment Incisional Assessment Incision Appearance/Comments well healed, no signs of symptoms of infection, good scar mobility PT-OP-K Range of Motion Start: 05/17/20 08:18 Freq: Status: Active Protocol: Document 05/17/20 08:58 [facility] (Rec: 05/17/20 17:00 [facility] [id number]) Lumbar Spine Range of Motion Lumbar Spine Active Comments deferred to do spinal precautions, high pain level Hip Goniometric Range of Motion Hip Measured in Degrees coleen Hip ROM WFL No Testing Position Supine Straight Leg Raise 55 Extension 0 Internal Rotation 25 External Rotation 60 Hip ROM Limitations Hip ROM Limitations Soft Tissue Tightness Knee Goniometric Range of Motion Knee Measured in Degrees coleen Knee ROM WFL Yes Ankle and Foot Goniometric Range of Motion Ankle and Foot Measured in Degrees coleen Ankle/Foot ROM WFL Yes PT-OP-L Special Tests Start: 05/17/20 08:18 Freq: Status: Active Protocol: Document 05/17/20 08:58 [facility] (Rec: 05/17/20 17:00 [facility] [id number]) Special Tests Lumbar Spine Special Tests Straight Leg Raise Comments unable, painful PT-OP-M Strength Start: 05/17/20 08:18 Freq: Status: Active Protocol: Document 05/17/20 08:58 [facility] (Rec: 05/17/20 17:00 [facility] [id number]) Hip Strength Hip Manual Muscle Testing coleen Comments deferred due to high pain level Knee Strength Knee Manual Muscle Testing coleen Flexion (S2) 4 Good Extension (L3) 4 Good Ankle/Foot Strength Ankle and Foot Manual Muscle Testing Right Dorsiflexion (L4) 4- Good- Plantarflexion (S1) 4- Good- Comments painful Left Dorsiflexion (L4) 4+ Good+ Plantarflexion (S1) 4+ Good+ Toe Strength Toe Manual Muscle Testing Right Great Toe Flexion 4- Good- Extension 4- Good- Left Great Toe Flexion 5 Normal Extension 5 Normal PT-OP-T Assessment and Plan Start: 05/17/20 08:18 Freq: Status: Active Protocol: Document 07/12/20 08:18 [facility] (Rec: 07/12/20 09:00 SAK [id number]) Physical Therapy Assessment Goals Five Impairment QuickDash UE disability index score 95% Short Term Goal (STG) Decrease Quickdash UE disability index score to no greater than 60% 07/30/19: good goal progress STG Duration MET Payroll Associate Goal (LTG) Decrease Quickdash UE disability index score to no greater than 30% including able to reach overhead and behind his back for ADL's and usual daily activities without difficulty 07/30/19: good goal progress LTG Duration 08/28/19 Four Impairment Decreased flexibility in bilateral hips Payroll Associate Goal (LTG) Improve PSLR to at least 75 degrees, hip ER to 70 and hip IR to 45 to improve overall function 07/12/20: good goal progress LTG Duration 08/15/20 Three Impairment LBP 06/20 Short Term Goal (STG) Decrease LBP to no greater than 5/10 with usual ADL's in the home 07/12/20 good goal progress STG Duration 06/24/20 Group Home Goal (LTG) Decrease LBP to no greater than 3/10 with usual activities including walks with his dog of at least 1 mile LTG Duration 08/15/20 Two Impairment decreased activity tolerance Oswestry 58% Short Term Goal (STG) Decrease Oswestry Score to no greater than 45% 07/12/20: good goal progress STG Duration 06/24/20 Payroll Associate Goal (LTG) Improve activity tolerance as evidenced by a decrease Oswestry Score to no greater than 25% LTG Duration 08/15/20 One Impairment weakness LE's and core Short Term Goal (STG) Patient able to tolerate 45 min land-based exercises for the purpose of strengthening and core stabilization without an increase in pain or c/o excess fatigue 07/12/20: good goal progress STG Duration 06/24/20 Payroll Associate Goal (LTG) Patient to be independent and compliant with HEP and aquatic exercise program for the purposes of [facility] fitness and 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 LTG Duration 08/15/20 Assessment Summary Assessment Patient needed body mechanics re-education for lifting as was doing improperly with wood project at home. Improved postural correction today but needs cues. Physical Therapy Plan Frequency and Duration Frequency of Treatment 2x/Week Duration of Treatment 12 weeks Plan of Care Start Date 05/17/20 Plan of Care End Date 08/15/20 Therapeutic Interventions Therapeutic Interventions Aquatic Therapy,Home Exercise Program,Manual Therapy, Neuromuscular Re-education, Patient/Caregiver Education, Self-Care/Home Management,Soft Tissue Mobilization,Taping, Therapeutic Activities, Therapeutic Exercises Modalities Cold Pack/Ice Massage,Electric Stimulation,Hot Packs Next Visit Focus/Plan Next Note Type Treatment Note Next Visit Plan Incoroporate gentle yoga per patient request.
--- NOTE | 2020-07-14 09:05 | PT.OTN ---
Current Diagnoses Post-traumatic osteoarthritis, right ankle and foot (07/14/20) Other spondylosis with radiculopathy, lumbosacral region (07/14/20) Spinal stenosis, lumbar region without neurogenic claudication (07/14/20) Abnormal posture (07/14/20) Weakness (07/14/20) Physical Therapy Treatment Note PT-OP-A Visit Information Start: 05/17/20 08:18 Freq: Status: Active Protocol: Document 07/14/20 08:17 [facility] (Rec: 07/14/20 08:40 [facility] [id number]) Out-Patient Physical Therapy Visit Information Visit Information Visit Type Treatment Note Visit Start Time 08:15 Visit Stop Time 09:00 Total Visit Minutes 45 Visit Number 11 Number of ACCESSIONER Visits 0 Evaluation Information Evaluation Date 05/17/20 Precautions Precautions PMH: peripheral neuropathy, RA , HTN, DM, anxiety, chronic back pain, depression, memory dysfunction PT-OP-B Current Condition Start: 05/17/20 08:18 Freq: Status: Active Protocol: Document 05/17/20 08:58 [facility] (Rec: 05/17/20 09:42 [facility] [id number]) Current Condition History of Current Condition Onset Date 01/06/20 Current Complaints Perisistent, function-limiting LBP s/p surgeryt. History of Current Condition Extensive lumbar surgery with fusion, required 2 transfusions of blood during recovery. 4 days in hospital, discharged home with home health. To ER 2x due to severe pain. Had seroma drained. Saw Dr. Cain 1 week ago, CT showed everything looked good. See him again in July. Reports disappointment; haven't been able to do the things he wants to do. Pain low at rest, increases with activity to high level at least 8/10. Doing dishes painful. Sitting in car painful. Usual ADL's painful. Blood pressure under control. Trying to go for walks but very limited distance due to pain. Hasn't been able to do other exercises. States he recently helped a neighbor with tiling his floor because he needed money. Wearing back brace most of the time when up; extends into thoracic spine in back. Rheumatology referral but hasn 't gone yet. Patient states he injured his right foot/ ankle while in hospital for surgery when he was assisted up in bed. Has been using heat for some pain control. Denies N/T in LE's. 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 Prior Treatments and Tests Procedure: 1. L2-3, L5-S1 posterolateral and posterior interbody fusion 2. L2-3, L5-S1 posterior interbody cage placement 3. L3-4. L4-5 posterior segmental instrumentation removal 4. L3-4, L4-5 revision laminectomy with exploration of fusion 5. L2-3, L3-4, L4-5, L5-S1 posterior segmental instrumentation with pedicle screw placement 6. L4-5 posterolatearl fusion 7. [place] of bone marrow from iliac crest through a separate incision 8. Utilization of microsurgical technique and operating microscope CT after surgery normal post- op changes. Wearing LSO brace. Future Testing and Treatments Planned Aquatic PT and land-based PT recommended, aquatic PT not open at this time due to Covid19; not opening until Phase 3 in [facility]. Treatment Goals Patient/Caregiver Goals Resume being able to take usual walks and do usual activities without pain. 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 PT-OP-C Subjective Start: 05/17/20 08:18 Freq: Status: Active Protocol: Document 07/14/20 08:17 [facility] (Rec: 07/14/20 08:40 [facility] [id number]) OP-PT Subjective Patient Comments Patient Comments Saw Dr. Calhoun yesterday, had his ankle worked on. PT-OP-G Mobility & Gait Start: 05/17/20 08:18 Freq: Status: Active Protocol: Document 05/17/20 08:58 [facility] (Rec: 05/17/20 17:00 [facility] [id number]) OP Mobility Evaluation Bed Mobility Rolling indep Supine to and from Sit indep with log roll Transfers Sit to Stand independent with use of hands OP Gait Assessment Gait Gait Assistance Required: Independent Distance (Feet) 100 Assistive Devices Assistive Device None Gait Deviations General Gait Pattern Antalgic,Decreased Stride Length,Decreased Feet Clearance,Flexed Trunk Factors Limiting Gait Function Factors Limiting Gait Function Decreased Activity Tolerance, Decreased Strength,Pain PT-OP-J Posture/Palpation/Skin Start: 05/17/20 08:18 Freq: Status: Active Protocol: Document 05/17/20 08:58 [facility] (Rec: 05/17/20 17:00 [facility] [id number]) Posture Evaluation Position Sitting Head/C-Spine Posture Forward Head T-Spine Posture Increased Kyphosis L-Spine Posture Flattened Shoulder Posture (L) Rounded,(R) Rounded Scapula Posture (L) Protracted,(R) Protracted Palpation Assessment Location cervical spine Palpation Location bilateral lumbar spine Palpation Findings Muscle Guarding,Tenderness Skin Assessment Incisional Assessment Incision Appearance/Comments well healed, no signs of symptoms of infection, good scar mobility PT-OP-K Range of Motion Start: 05/17/20 08:18 Freq: Status: Active Protocol: Document 05/17/20 08:58 [facility] (Rec: 05/17/20 17:00 [facility] [id number]) Lumbar Spine Range of Motion Lumbar Spine Active Comments deferred to do spinal precautions, high pain level Hip Goniometric Range of Motion Hip coleen Hip ROM WFL No Testing Position Supine Straight Leg Raise 55 Extension 0 Internal Rotation 25 External Rotation 60 Hip ROM Limitations Hip ROM Limitations Soft Tissue Tightness Knee Goniometric Range of Motion Knee coleen Knee ROM WFL Yes Ankle and Foot Goniometric Range of Motion Ankle and Foot coleen Ankle/Foot ROM WFL Yes PT-OP-L Special Tests Start: 05/17/20 08:18 Freq: Status: Active Protocol: Document 05/17/20 08:58 [facility] (Rec: 05/17/20 17:00 [facility] [id number]) Special Tests Lumbar Spine Special Tests Straight Leg Raise Comments unable, painful PT-OP-M Strength Start: 05/17/20 08:18 Freq: Status: Active Protocol: Document 05/17/20 08:58 [facility] (Rec: 05/17/20 17:00 [facility] [id number]) Hip Strength Hip Manual Muscle Testing colene Comments deferred due to high pain level Knee Strength Knee Manual Muscle Testing coleen Flexion (S2) 4 Good Extension (L3) 4 Good Ankle/Foot Strength Ankle and Foot Manual Muscle Testing Right Dorsiflexion (L4) 4- Good- Plantarflexion (S1) 4- Good- Comments painful Left Dorsiflexion (L4) 4+ Good+ Plantarflexion (S1) 4+ Good+ Toe Strength Toe Manual Muscle Testing Right Great Toe Flexion 4- Good- Extension 4- Good- Left Great Toe Flexion 5 Normal Extension 5 Normal PT-OP-Q Treatments Start: 05/17/20 08:18 Freq: Status: Active Protocol: Document 07/14/20 08:17 [facility] (Rec: 07/14/20 08:40 [facility] [id number]) Cardio Equipment Recumbent Stepper (Sci-Fit) Duration (Minutes) 8 Resistance 3.0 Seat Position 13 Gym Equipment Sport Cord sideways Cord/Resistance green Reps/Duration 5x backward Cord/Resistance green Reps/Duration 5x forward Cord/Resistance green Reps/Duration 6x Comments ues for upright posture, core muscle activation, gluteal activation Therapeutic Exercises Sitting Exercises TrA with LE unweighting Reps/Minutes 5x ea Comments push through opposite leg SKTC Reps/Minutes 2x30 IT band stretch Equipment Used stool Reps/Minutes 2x30 HS stretch Equipment Used stool Reps/Minutes 2x30 piriformis stretch Reps/Minutes 2x 30 Standing Exercises HC stretch Equipment Used ORLIN Reps/Minutes 2x hip flex stretch Reps/Minutes 2x Comments stair lunge Self-Care/Home Management Treatment Education Patient Education Home Exercise Program Other Education emphasis on stretches he can do [place] plus standing lunge stretch PT-OP-R Modalities Start: 05/17/20 08:18 Freq: Status: Active Protocol: Document 05/17/20 08:58 [facility] (Rec: 05/17/20 17:00 [facility] [id number]) Hot Pack/Cold Pack Treatment lumbar spine Patient Position Hooklying Treatment Duration (minutes) 15 Patient Tolerance Good PT-OP-T Assessment and Plan Start: 05/17/20 08:18 Freq: Status: Active Protocol: Document 07/14/20 08:17 [facility] (Rec: 07/14/20 08:40 [facility] [id number]) Physical Therapy Assessment Goals Five Impairment QuickDash UE disability index score 95% Short Term Goal (STG) Decrease Quickdash UE disability index score to no greater than 60% 07/30/19: good goal progress STG Duration MET Supervisor Maintenance And Custodians Goal (LTG) Decrease Quickdash UE disability index score to no greater than 30% including able to reach overhead and behind his back for ADL's and usual daily activities without difficulty 07/30/19: good goal progress LTG Duration 08/28/19 Four Impairment Decreased flexibility in bilateral hips Supervisor Maintenance And Custodians Goal (LTG) Improve PSLR to at least 75 degrees, hip ER to 70 and hip IR to 45 to improve overall function 07/12/20: good goal progress LTG Duration 08/15/20 Three Impairment LBP 06/20 Short Term Goal (STG) Decrease LBP to no greater than 5/10 with usual ADL's in the home 07/12/20 good goal progress STG Duration 06/24/20 Half-Way Goal (LTG) Decrease LBP to no greater than 3/10 with usual activities including walks with his dog of at least 1 mile LTG Duration 08/15/20 Two Impairment decreased activity tolerance Oswestry 58% Short Term Goal (STG) Decrease Oswestry Score to no greater than 45% 07/12/20: good goal progress STG Duration 06/24/20 Half-Way Goal (LTG) Improve activity tolerance as evidenced by a decrease Oswestry Score to no greater than 25% LTG Duration 08/15/20 One Impairment weakness LE's and core Short Term Goal (STG) Patient able to tolerate 45 min land-based exercises for the purpose of strengthening and core stabilization without an increase in pain or c/o excess fatigue 07/12/20: good goal progress STG Duration 06/24/20 Half-Way Goal (LTG) Patient to be independent and compliant with HEP and aquatic exercise program for the purposes of fdc fitness and 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 LTG Duration 08/15/20 Assessment Summary Assessment Patient demonstrated good understanding of seated ex, states he found helpful for being able towork into his day . Physical Therapy Plan Frequency and Duration Frequency of Treatment 2x/Week Duration of Treatment 12 weeks Plan of Care Start Date 05/17/20 Plan of Care End Date 08/15/20 Therapeutic Interventions Therapeutic Interventions Aquatic Therapy,Home Exercise Program,Manual Therapy, Neuromuscular Re-education, Patient/Caregiver Education, Self-Care/Home Management,Soft Tissue Mobilization,Taping, Therapeutic Activities, Therapeutic Exercises Modalities Cold Pack/Ice Massage,Electric Stimulation,Hot Packs Next Visit Focus/Plan Next Note Type Treatment Note Next Visit Plan Continue PT to improve core strength, flexibility, decrease pain, improve activity tolerance.
--- NOTE | 2020-08-02 09:00 | PT.OTN ---
Current Diagnoses Post-traumatic osteoarthritis, right ankle and foot (08/02/20) Other spondylosis with radiculopathy, lumbosacral region (08/02/20) Spinal stenosis, lumbar region without neurogenic claudication (08/02/20) Abnormal posture (08/02/20) Weakness (08/02/20) Physical Therapy Treatment Note PT-OP-A Visit Information Start: 05/17/20 08:18 Freq: Status: Active Protocol: Document 08/02/20 08:20 [facility] (Rec: 08/02/20 10:08 [facility] [id number]) Out-Patient Physical Therapy Visit Information Visit Information Visit Type Treatment Note Visit Start Time 08:20 Visit Stop Time 09:00 Total Visit Minutes 40 Visit Number 12 Number of JAVA USER INTERFACE DEVELOPER Visits 1 PT-OP-B Current Condition Start: 05/17/20 08:18 Freq: Status: Active Protocol: Document 05/17/20 08:58 [facility] (Rec: 05/17/20 09:42 [facility] [id number]) Current Condition History of Current Condition Onset Date 01/06/20 Current Complaints Perisistent, function-limiting LBP s/p surgeryt. History of Current Condition Extensive lumbar surgery with fusion, required 2 transfusions of blood during recovery. 4 days in hospital, discharged home with home health. To ER 2x due to severe pain. Had seroma drained. Saw Dr. Cain 1 week ago, CT showed everything looked good. See him again in July. Reports disappointment; haven't been able to do the things he wants to do. Pain low at rest, increases with activity to high level at least 8/10. Doing dishes painful. Sitting in car painful. Usual ADL's painful. Blood pressure under control. Trying to go for walks but very limited distance due to pain. Hasn't been able to do other exercises. States he recently helped a neighbor with tiling his floor because he needed money. Wearing back brace most of the time when up; extends into thoracic spine in back. Rheumatology referral but hasn 't gone yet. Patient states he injured his right foot/ ankle while in hospital for surgery when he was assisted up in bed. Has been using heat for some pain control. Denies N/T in LE's. 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 Prior Treatments and Tests Procedure: 1. L2-3, L5-S1 posterolateral and posterior interbody fusion 2. L2-3, L5-S1 posterior interbody cage placement 3. L3-4. L4-5 posterior segmental instrumentation removal 4. L3-4, L4-5 revision laminectomy with exploration of fusion 5. L2-3, L3-4, L4-5, L5-S1 posterior segmental instrumentation with pedicle screw placement 6. L4-5 posterolatearl fusion 7. [place] of bone marrow from iliac crest through a separate incision 8. Utilization of microsurgical technique and operating microscope CT after surgery normal post- op changes. Wearing LSO brace. Future Testing and Treatments Planned Aquatic PT and land-based PT recommended, aquatic PT not open at this time due to Covid19; not opening until Phase 3 in [facility]. Treatment Goals Patient/Caregiver Goals Resume being able to take usual walks and do usual activities without pain. 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 PT-OP-C Subjective Start: 05/17/20 08:18 Freq: Status: Active Protocol: Document 08/02/20 08:20 [facility] (Rec: 08/02/20 10:08 [facility] [id number]) OP-PT Subjective Patient Comments Patient Comments Pt arrived very lathargic, guarding L wrist, reported woke up this am with extreme pain and applied old wrist brace for comfort. R ankle hurting alot today to WB through a PT-OP-G Mobility & Gait Start: 05/17/20 08:18 Freq: Status: Active Protocol: Document 05/17/20 08:58 [facility] (Rec: 05/17/20 17:00 [facility] [id number]) OP Mobility Evaluation Bed Mobility Rolling indep Supine to and from Sit indep with log roll Transfers Sit to Stand independent with use of hands OP Gait Assessment Gait Gait Assistance Required: Independent Distance (Feet) 100 Assistive Devices Assistive Device None Gait Deviations General Gait Pattern Antalgic,Decreased Stride Length,Decreased Feet Clearance,Flexed Trunk Factors Limiting Gait Function Factors Limiting Gait Function Decreased Activity Tolerance, Decreased Strength,Pain PT-OP-J Posture/Palpation/Skin Start: 05/17/20 08:18 Freq: Status: Active Protocol: Document 05/17/20 08:58 [facility] (Rec: 05/17/20 17:00 [facility] [id number]) Posture Evaluation Position Sitting Head/C-Spine Posture Forward Head T-Spine Posture Increased Kyphosis L-Spine Posture Flattened Shoulder Posture (L) Rounded,(R) Rounded Scapula Posture (L) Protracted,(R) Protracted Palpation Assessment Location cervical spine Palpation Location bilateral lumbar spine Palpation Findings Muscle Guarding,Tenderness Skin Assessment Incisional Assessment Incision Appearance/Comments well healed, no signs of symptoms of infection, good scar mobility PT-OP-K Range of Motion Start: 05/17/20 08:18 Freq: Status: Active Protocol: Document 05/17/20 08:58 [facility] (Rec: 05/17/20 17:00 [facility] [id number]) Lumbar Spine Range of Motion Lumbar Spine Active Comments deferred to do spinal precautions, high pain level Hip Goniometric Range of Motion Hip coleen Hip ROM WFL No Testing Position Supine Straight Leg Raise 55 Extension 0 Internal Rotation 25 External Rotation 60 Hip ROM Limitations Hip ROM Limitations Soft Tissue Tightness Knee Goniometric Range of Motion Knee coleen Knee ROM WFL Yes Ankle and Foot Goniometric Range of Motion Ankle and Foot coleen Ankle/Foot ROM WFL Yes PT-OP-L Special Tests Start: 05/17/20 08:18 Freq: Status: Active Protocol: Document 05/17/20 08:58 [facility] (Rec: 05/17/20 17:00 [facility] [id number]) Special Tests Lumbar Spine Special Tests Straight Leg Raise Comments unable, painful PT-OP-M Strength Start: 05/17/20 08:18 Freq: Status: Active Protocol: Document 05/17/20 08:58 [facility] (Rec: 05/17/20 17:00 [facility] [id number]) Hip Strength Hip Manual Muscle Testing coleen Comments deferred due to high pain level Knee Strength Knee Manual Muscle Testing coleen Flexion (S2) 4 Good Extension (L3) 4 Good Ankle/Foot Strength Ankle and Foot Manual Muscle Testing Right Dorsiflexion (L4) 4- Good- Plantarflexion (S1) 4- Good- Comments painful Left Dorsiflexion (L4) 4+ Good+ Plantarflexion (S1) 4+ Good+ Toe Strength Toe Manual Muscle Testing Right Great Toe Flexion 4- Good- Extension 4- Good- Left Great Toe Flexion 5 Normal Extension 5 Normal PT-OP-Q Treatments Start: 05/17/20 08:18 Freq: Status: Active Protocol: Document 08/02/20 08:20 [facility] (Rec: 08/02/20 10:08 [facility] [id number]) Cardio Equipment Recumbent Stepper (Sci-Fit) Duration (Minutes) 8 Resistance 3.0 Seat Position 11 Gym Equipment Sport Cord sideways Cord/Resistance green Reps/Duration 5x Comments cues for upright posture, core muscle activation, gluteal activation backward Cord/Resistance green Reps/Duration 5x Comments cues for upright posture, core muscle activation, gluteal activation forward Cord/Resistance green Reps/Duration 6x Comments cues for upright posture, core muscle activation, gluteal activation Therapeutic Exercises Supine Exercises PPT tailbone tuck Reps/Minutes 5 sec hold x10 TrA with ball squeeze Supine Exercise Name small blue ball Reps/Minutes 5 sec hold x5 PT-OP-R Modalities Start: 05/17/20 08:18 Freq: Status: Active Protocol: Document 05/17/20 08:58 [facility] (Rec: 05/17/20 17:00 [facility] [id number]) Hot Pack/Cold Pack Treatment lumbar spine Patient Position Hooklying Treatment Duration (minutes) 15 Patient Tolerance Good PT-OP-T Assessment and Plan Start: 05/17/20 08:18 Freq: Status: Active Protocol: Document 08/02/20 08:20 [facility] (Rec: 08/02/20 10:08 [facility] [id number]) Physical Therapy Assessment Goals Five Impairment QuickDash UE disability index score 95% Short Term Goal (STG) Decrease Quickdash UE disability index score to no greater than 60% 07/30/19: good goal progress STG Duration MET [facility] Goal (LTG) Decrease Quickdash UE disability index score to no greater than 30% including able to reach overhead and behind his back for ADL's and usual daily activities without difficulty 07/30/19: good goal progress LTG Duration 08/28/19 Four Impairment Decreased flexibility in bilateral hips [facility] Goal (LTG) Improve PSLR to at least 75 degrees, hip ER to 70 and hip IR to 45 to improve overall function 07/12/20: good goal progress LTG Duration 08/15/20 Three Impairment LBP 8 Short Term Goal (STG) Decrease LBP to no greater than 5/10 with usual ADL's in the home 07/12/20 good goal progress STG Duration 06/24/20 Permanent Waver Goal (LTG) Decrease LBP to no greater than 3/10 with usual activities including walks with his dog of at least 1 mile LTG Duration 08/15/20 Two Impairment decreased activity tolerance Oswestry 58% Short Term Goal (STG) Decrease Oswestry Score to no greater than 45% 07/12/20: good goal progress STG Duration 06/24/20 [facility] Goal (LTG) Improve activity tolerance as evidenced by a decrease Oswestry Score to no greater than 25% LTG Duration 08/15/20 One Impairment weakness LE's and core Short Term Goal (STG) Patient able to tolerate 45 min land-based exercises for the purpose of strengthening and core stabilization without an increase in pain or c/o excess fatigue 07/12/20: good goal progress STG Duration 06/24/20 Permanent Waver Goal (LTG) Patient to be independent and compliant with HEP and aquatic exercise program for the purposes of senior care fitness and 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 LTG Duration 08/15/20 Assessment Summary Assessment Pt arrived with L wrist pain and donned wrist stabilier brace had to help, holding over chest, provided bandaging for sling to allow L arm relax during standing exericises to give comfort, good results and improved posture. Pt also reported R ankle pain during WB so modified reps during standing sport cord today. Pt over recruiting TA in standing, cuing required for posterior pelvic tilt tailbone tuck initially, moved to supine to further reinforce small range/ engagement application then adding TA then adductor slow layering together sequencially with good results. Discussed not over global glut, abdominal firing and posture is important awareness to decrease LBP over recruitment with response wow I didn't realize how much I was over using and still not aware of posture as much as thinks is. Physical Therapy Plan Frequency and Duration Frequency of Treatment 2x/Week Duration of Treatment 12 weeks Plan of Care Start Date 05/17/20 Plan of Care End Date 08/15/20 Therapeutic Interventions Therapeutic Interventions Aquatic Therapy,Home Exercise Program,Manual Therapy, Neuromuscular Re-education, Patient/Caregiver Education, Self-Care/Home Management,Soft Tissue Mobilization,Taping, Therapeutic Activities, Therapeutic Exercises Modalities Cold Pack/Ice Massage,Electric Stimulation,Hot Packs Next Visit Focus/Plan Next Note Type Treatment Note Next Visit Plan Assess response to last tx: PPT, TA, posture and modifications due to L wrist and R ankle pain today. Continue PT to improve core strength, flexibility, decrease pain, improve activity tolerance.
--- NOTE | 2020-08-04 09:05 | PT.OTN ---
Addendum entered and electronically signed by Hoa Ba, REFINING ENGINEER 08/04/20 09:25: PN pre POC exp 08/15/20. Original Note: Current Diagnoses Post-traumatic osteoarthritis, right ankle and foot (08/04/20) Other spondylosis with radiculopathy, lumbosacral region (08/04/20) Spinal stenosis, lumbar region without neurogenic claudication (08/04/20) Abnormal posture (08/04/20) Weakness (08/04/20) Physical Therapy Treatment Note PT-OP-A Visit Information Start: 05/17/20 08:18 Freq: Status: Active Protocol: Document 08/04/20 08:19 SP (Rec: 08/04/20 09:24 SP [id number]) Out-Patient Physical Therapy Visit Information Visit Information Visit Type Treatment Note Visit Start Time 08:19 Visit Stop Time 09:05 Total Visit Minutes 46 Visit Number 13 Number of REFINING ENGINEER Visits 2 PT-OP-B Current Condition Start: 05/17/20 08:18 Freq: Status: Active Protocol: Document 05/17/20 08:58 SAK (Rec: 05/17/20 09:42 SAK [id number]) Current Condition History of Current Condition Onset Date 01/06/20 Current Complaints Perisistent, function-limiting LBP s/p surgeryt. History of Current Condition Extensive lumbar surgery with fusion, required 2 transfusions of blood during recovery. 4 days in hospital, discharged home with home health. To ER 2x due to severe pain. Had seroma drained. Saw Dr. Cain 1 week ago, CT showed everything looked good. See him again in July. Reports disappointment; haven't been able to do the things he wants to do. Pain low at rest, increases with activity to high level at least 8/10. Doing dishes painful. Sitting in car painful. Usual ADL's painful. Blood pressure under control. Trying to go for walks but very limited distance due to pain. Hasn't been able to do other exercises. States he recently helped a neighbor with tiling his floor because he needed money. Wearing back brace most of the time when up; extends into thoracic spine in back. Rheumatology referral but hasn 't gone yet. Patient states he injured his right foot/ ankle while in hospital for surgery when he was assisted up in bed. Has been using heat for some pain control. Denies N/T in LE's. 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 Prior Treatments and Tests Procedure: 1. L2-3, L5-S1 posterolateral and posterior interbody fusion 2. L2-3, L5-S1 posterior interbody cage placement 3. L3-4. L4-5 posterior segmental instrumentation removal 4. L3-4, L4-5 revision laminectomy with exploration of fusion 5. L2-3, L3-4, L4-5, L5-S1 posterior segmental instrumentation with pedicle screw placement 6. L4-5 posterolatearl fusion 7. [place] of bone marrow from iliac crest through a separate incision 8. Utilization of microsurgical technique and operating microscope CT after surgery normal post- op changes. Wearing LSO brace. Future Testing and Treatments Planned Aquatic PT and land-based PT recommended, aquatic PT not open at this time due to Covid19; not opening until Phase 3 in [facility]. Treatment Goals Patient/Caregiver Goals Resume being able to take usual walks and do usual activities without pain. [facility] goal is to be able to kayak again. PT-OP-C Subjective Start: 05/17/20 08:18 Freq: Status: Active Protocol: Document 08/04/20 08:19 SP (Rec: 08/04/20 09:24 SP [id number]) OP-PT Subjective Patient Comments Patient Comments Pt reported feeling and moving alot better today. He stated filled a muscle relaxer prescription and stronger tylenol 500 cc for assistance with pain and is making a big difference. Sees Dr Bar about Aug 17 then 3 Wed in row. PT-OP-G Mobility & Gait Start: 05/17/20 08:18 Freq: Status: Active Protocol: Document 05/17/20 08:58 SAK (Rec: 05/17/20 17:00 SAK [id number]) OP Mobility Evaluation Bed Mobility Rolling indep Supine to and from Sit indep with log roll Transfers Sit to Stand independent with use of hands OP Gait Assessment Gait Gait Assistance Required: Independent Distance (Feet) 100 Assistive Devices Assistive Device None Gait Deviations General Gait Pattern Antalgic,Decreased Stride Length,Decreased Feet Clearance,Flexed Trunk Factors Limiting Gait Function Factors Limiting Gait Function Decreased Activity Tolerance, Decreased Strength,Pain PT-OP-J Posture/Palpation/Skin Start: 05/17/20 08:18 Freq: Status: Active Protocol: Document 05/17/20 08:58 [facility] (Rec: 05/17/20 17:00 [facility] [id number]) Posture Evaluation Position Sitting Head/C-Spine Posture Forward Head T-Spine Posture Increased Kyphosis L-Spine Posture Flattened Shoulder Posture (L) Rounded,(R) Rounded Scapula Posture (L) Protracted,(R) Protracted Palpation Assessment Location cervical spine Palpation Location bilateral lumbar spine Palpation Findings Muscle Guarding,Tenderness Skin Assessment Incisional Assessment Incision Appearance/Comments well healed, no signs of symptoms of infection, good scar mobility PT-OP-K Range of Motion Start: 05/17/20 08:18 Freq: Status: Active Protocol: Document 05/17/20 08:58 [facility] (Rec: 05/17/20 17:00 [facility] [id number]) Lumbar Spine Range of Motion Lumbar Spine Active Comments deferred to do spinal precautions, high pain level Hip Goniometric Range of Motion Hip coleen Hip ROM WFL No Testing Position Supine Straight Leg Raise 55 Extension 0 Internal Rotation 25 External Rotation 60 Hip ROM Limitations Hip ROM Limitations Soft Tissue Tightness Knee Goniometric Range of Motion Knee coleen Knee ROM WFL Yes Ankle and Foot Goniometric Range of Motion Ankle and Foot coleen Ankle/Foot ROM WFL Yes PT-OP-L Special Tests Start: 05/17/20 08:18 Freq: Status: Active Protocol: Document 05/17/20 08:58 [facility] (Rec: 05/17/20 17:00 [facility] [id number]) Special Tests Lumbar Spine Special Tests Straight Leg Raise Comments unable, painful PT-OP-M Strength Start: 05/17/20 08:18 Freq: Status: Active Protocol: Document 05/17/20 08:58 [facility] (Rec: 05/17/20 17:00 [facility] [id number]) Hip Strength Hip Manual Muscle Testing coleen Comments deferred due to high pain level Knee Strength Knee Manual Muscle Testing coleen Flexion (S2) 4 Good Extension (L3) 4 Good Ankle/Foot Strength Ankle and Foot Manual Muscle Testing Right Dorsiflexion (L4) 4- Good- Plantarflexion (S1) 4- Good- Comments painful Left Dorsiflexion (L4) 4+ Good+ Plantarflexion (S1) 4+ Good+ Toe Strength Toe Manual Muscle Testing Right Great Toe Flexion 4- Good- Extension 4- Good- Left Great Toe Flexion 5 Normal Extension 5 Normal PT-OP-Q Treatments Start: 05/17/20 08:18 Freq: Status: Active Protocol: Document 08/04/20 08:19 SP (Rec: 08/04/20 09:24 SP [id number]) Cardio Equipment Recumbent Bicycle Duration (Minutes) 8 Resistance 8 x 2 Min>6 x3 min >7 3 min Seat Position 7 Gym Equipment Shuttle Balance chains red Details WBOS, NBOS Reps/Duration 5 min Comments emphasis on core activation and stabilization, cuing for body corrections alignment btn BLE 1. COG over MATTHEW 2. wt shift 3. head turns 4. EC Neuro Re-Education Treatment Balance Activities uneven obstacle course Equipment hurdles, oval cushions, bal beam Comments CGA- low Min A Assist as needed for LOB Cued glut and core facilitation COG over MATTHEW pre step for stability/safety. Eyes closed Details NBOS, stagger, tandem (EO only in PT) see HO. Equipment back to corner, chair front Comments 1. COG over MATTHEW foot triangle BLE 2. head turns 3. EC PT-OP-R Modalities Start: 05/17/20 08:18 Freq: Status: Active Protocol: Document 05/17/20 08:58 SAK (Rec: 05/17/20 17:00 SAK [id number]) Hot Pack/Cold Pack Treatment lumbar spine Patient Position Hooklying Treatment Duration (minutes) 15 Patient Tolerance Good PT-OP-T Assessment and Plan Start: 05/17/20 08:18 Freq: Status: Active Protocol: Document 08/04/20 08:19 SP (Rec: 08/04/20 09:24 SP [id number]) Physical Therapy Assessment Goals Five Impairment QuickDash UE disability index score 95% Short Term Goal (STG) Decrease Quickdash UE disability index score to no greater than 60% 07/30/19: good goal progress STG Duration MET Human Resources Trainer Goal (LTG) Decrease Quickdash UE disability index score to no greater than 30% including able to reach overhead and behind his back for ADL's and usual daily activities without difficulty 07/30/19: good goal progress LTG Duration 08/28/19 Four Impairment Decreased flexibility in bilateral hips Fdc Goal (LTG) Improve PSLR to at least 75 degrees, hip ER to 70 and hip IR to 45 to improve overall function 07/12/20: good goal progress LTG Duration 08/15/20 Three Impairment LBP 8 Short Term Goal (STG) Decrease LBP to no greater than 5/10 with usual ADL's in the home 07/12/20 good goal progress STG Duration 06/24/20 Human Resources Trainer Goal (LTG) Decrease LBP to no greater than 3/10 with usual activities including walks with his dog of at least 1 mile LTG Duration 08/15/20 Two Impairment decreased activity tolerance Oswestry 58% Short Term Goal (STG) Decrease Oswestry Score to no greater than 45% 07/12/20: good goal progress STG Duration 06/24/20 Human Resources Trainer Goal (LTG) Improve activity tolerance as evidenced by a decrease Oswestry Score to no greater than 25% LTG Duration 08/15/20 One Impairment weakness LE's and core Short Term Goal (STG) Patient able to tolerate 45 min land-based exercises for the purpose of strengthening and core stabilization without an increase in pain or c/o excess fatigue 07/12/20: good goal progress STG Duration 06/24/20 Human Resources Trainer Goal (LTG) Patient to be independent and compliant with HEP and aquatic exercise program for the purposes of group home fitness and 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 LTG Duration 08/15/20 Assessment Summary Assessment Pt responded well to last tx and reported did have to fill meds to assist pain control with good results. Just muscle soreness pre PT today upon arrival. Tx focused on glut/ core stabilization and posture COG over MATTHEW between BLE. Progressed with uneven surfaces and added level surface HEP safe corner at home after performed in PT. Educated tandem EO only in PT due to LOB requiring Min A for safe recovery, pt understood and agreed. PRovided handouts for self recall and set up. Pt responded well to tx I feel like got a good core and hip work out, no pain. I am seeing gains of strength able to do more activities at home, walking inclines easier while walking the dog. Instructed patient to perform stretching if needed later, didn't have time in tx. Physical Therapy Plan Frequency and Duration Frequency of Treatment 2x/Week Duration of Treatment 12 weeks Plan of Care Start Date 05/17/20 Plan of Care End Date 08/15/20 Therapeutic Interventions Therapeutic Interventions Aquatic Therapy,Home Exercise Program,Manual Therapy, Neuromuscular Re-education, Patient/Caregiver Education, Self-Care/Home Management,Soft Tissue Mobilization,Taping, Therapeutic Activities, Therapeutic Exercises Modalities Cold Pack/Ice Massage,Electric Stimulation,Hot Packs Next Visit Focus/Plan Next Note Type Treatment Note Next Visit Plan Assess response to last tx: Shuttle bal, uneven obstacle course, added balance stance to HEP. Continue PT to improve core strength, flexibility, decrease pain, improve activity tolerance.
--- NOTE | 2020-08-09 09:05 | PT.OTN ---
Current Diagnoses Post-traumatic osteoarthritis, right ankle and foot (08/09/20) Other spondylosis with radiculopathy, lumbosacral region (08/09/20) Spinal stenosis, lumbar region without neurogenic claudication (08/09/20) Abnormal posture (08/09/20) Weakness (08/09/20) Physical Therapy Treatment Note PT-OP-A Visit Information Start: 05/17/20 08:18 Freq: Status: Active Protocol: Document 08/09/20 08:12 SAK (Rec: 08/09/20 09:03 SAK [id number]) Out-Patient Physical Therapy Visit Information Visit Information Visit Type Treatment Note Visit Start Time 08:15 Visit Stop Time 09:02 Total Visit Minutes 47 Visit Number 13 Number of HEBREW TEACHER Visits 0 PT-OP-B Current Condition Start: 05/17/20 08:18 Freq: Status: Active Protocol: Document 05/17/20 08:58 SAK (Rec: 05/17/20 09:42 SAK [id number]) Current Condition History of Current Condition Onset Date 01/06/20 Current Complaints Perisistent, function-limiting LBP s/p surgeryt. History of Current Condition Extensive lumbar surgery with fusion, required 2 transfusions of blood during recovery. 4 days in hospital, discharged home with home health. To ER 2x due to severe pain. Had seroma drained. Saw Dr. Cain 1 week ago, CT showed everything looked good. See him again in July. Reports disappointment; haven't been able to do the things he wants to do. Pain low at rest, increases with activity to high level at least 8/10. Doing dishes painful. Sitting in car painful. Usual ADL's painful. Blood pressure under control. Trying to go for walks but very limited distance due to pain. Hasn't been able to do other exercises. States he recently helped a neighbor with tiling his floor because he needed money. Wearing back brace most of the time when up; extends into thoracic spine in back. Rheumatology referral but hasn 't gone yet. Patient states he injured his right foot/ ankle while in hospital for surgery when he was assisted up in bed. Has been using heat for some pain control. Denies N/T in LE's. 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 Prior Treatments and Tests Procedure: 1. L2-3, L5-S1 posterolateral and posterior interbody fusion 2. L2-3, L5-S1 posterior interbody cage placement 3. L3-4. L4-5 posterior segmental instrumentation removal 4. L3-4, L4-5 revision laminectomy with exploration of fusion 5. L2-3, L3-4, L4-5, L5-S1 posterior segmental instrumentation with pedicle screw placement 6. L4-5 posterolatearl fusion 7. [place] of bone marrow from iliac crest through a separate incision 8. Utilization of microsurgical technique and operating microscope CT after surgery normal post- op changes. Wearing LSO brace. Future Testing and Treatments Planned Aquatic PT and land-based PT recommended, aquatic PT not open at this time due to Covid19; not opening until Phase 3 in [facility]. Treatment Goals Patient/Caregiver Goals Resume being able to take usual walks and do usual activities without pain. [facility] goal is to be able to kayak again. PT-OP-C Subjective Start: 05/17/20 08:18 Freq: Status: Active Protocol: Document 08/09/20 08:12 [facility] (Rec: 08/09/20 09:03 [facility] [id number]) OP-PT Subjective Patient Comments Patient Comments Didn't take muscle relaxant today, doesn't want to hide symptoms PT-OP-G Mobility & Gait Start: 05/17/20 08:18 Freq: Status: Active Protocol: Document 05/17/20 08:58 [facility] (Rec: 05/17/20 17:00 [facility] [id number]) OP Mobility Evaluation Bed Mobility Rolling indep Supine to and from Sit indep with log roll Transfers Sit to Stand independent with use of hands OP Gait Assessment Gait Gait Assistance Required: Independent Distance (Feet) 100 Assistive Devices Assistive Device None Gait Deviations General Gait Pattern Antalgic,Decreased Stride Length,Decreased Feet Clearance,Flexed Trunk Factors Limiting Gait Function Factors Limiting Gait Function Decreased Activity Tolerance, Decreased Strength,Pain PT-OP-J Posture/Palpation/Skin Start: 05/17/20 08:18 Freq: Status: Active Protocol: Document 05/17/20 08:58 [facility] (Rec: 05/17/20 17:00 [facility] [id number]) Posture Evaluation Position Sitting Head/C-Spine Posture Forward Head T-Spine Posture Increased Kyphosis L-Spine Posture Flattened Shoulder Posture (L) Rounded,(R) Rounded Scapula Posture (L) Protracted,(R) Protracted Palpation Assessment Location cervical spine Palpation Location bilateral lumbar spine Palpation Findings Muscle Guarding,Tenderness Skin Assessment Incisional Assessment Incision Appearance/Comments well healed, no signs of symptoms of infection, good scar mobility PT-OP-K Range of Motion Start: 05/17/20 08:18 Freq: Status: Active Protocol: Document 05/17/20 08:58 [facility] (Rec: 05/17/20 17:00 [facility] [id number]) Lumbar Spine Range of Motion Lumbar Spine Active Comments deferred to do spinal precautions, high pain level Hip Goniometric Range of Motion Hip coleen Hip ROM WFL No Testing Position Supine Straight Leg Raise 55 Extension 0 Internal Rotation 25 External Rotation 60 Hip ROM Limitations Hip ROM Limitations Soft Tissue Tightness Knee Goniometric Range of Motion Knee coleen Knee ROM WFL Yes Ankle and Foot Goniometric Range of Motion Ankle and Foot coleen Ankle/Foot ROM WFL Yes PT-OP-L Special Tests Start: 05/17/20 08:18 Freq: Status: Active Protocol: Document 05/17/20 08:58 [facility] (Rec: 05/17/20 17:00 [facility] [id number]) Special Tests Lumbar Spine Special Tests Straight Leg Raise Comments unable, painful PT-OP-M Strength Start: 05/17/20 08:18 Freq: Status: Active Protocol: Document 05/17/20 08:58 [facility] (Rec: 05/17/20 17:00 [facility] [id number]) Hip Strength Hip Manual Muscle Testing coleen Comments deferred due to high pain level Knee Strength Knee Manual Muscle Testing coleen Flexion (S2) 4 Good Extension (L3) 4 Good Ankle/Foot Strength Ankle and Foot Manual Muscle Testing Right Dorsiflexion (L4) 4- Good- Plantarflexion (S1) 4- Good- Comments painful Left Dorsiflexion (L4) 4+ Good+ Plantarflexion (S1) 4+ Good+ Toe Strength Toe Manual Muscle Testing Right Great Toe Flexion 4- Good- Extension 4- Good- Left Great Toe Flexion 5 Normal Extension 5 Normal PT-OP-Q Treatments Start: 05/17/20 08:18 Freq: Status: Active Protocol: Document 08/09/20 08:12 [facility] (Rec: 08/09/20 09:03 [facility] [id number]) Cardio Equipment Recumbent Bicycle Duration (Minutes) 8 Resistance 6x3', 7x3', 8x4', 6x1' Seat Position 7 Gym Equipment Shuttle Balance chains red Details WBOS, NBOS Reps/Duration 5 min Comments emphasis on core activation and stabilization, cuing for body corrections alignment btn BLE 1. COG over MATTHEW 2. wt shift 3. head turns 4. EC Therapeutic Exercises Supine Exercises PPT tailbone tuck Reps/Minutes 5 sec hold x10 SKTC Reps/Minutes 3x30 Comments review with instructoin on self Neuro Re-Education Treatment Balance Activities uneven obstacle course Equipment hurdles, oval cushions, bal beam Comments CGA- low Min A Assist as needed for LOB Cued glut and core facilitation COG over MATTHEW pre step for stability/safety. Eyes closed Details NBOS, stagger, tandem (EO only in PT) see HO. Equipment back to corner, chair front Comments 1. COG over MATTHEW foot triangle BLE 2. head turns 3. EC PT-OP-R Modalities Start: 05/17/20 08:18 Freq: Status: Active Protocol: Document 05/17/20 08:58 [facility] (Rec: 05/17/20 17:00 [facility] [id number]) Hot Pack/Cold Pack Treatment lumbar spine Patient Position Hooklying Treatment Duration (minutes) 15 Patient Tolerance Good PT-OP-T Assessment and Plan Start: 05/17/20 08:18 Freq: Status: Active Protocol: Document 08/09/20 08:12 [facility] (Rec: 08/09/20 09:03 [facility] [id number]) Physical Therapy Assessment Goals Five Impairment QuickDash UE disability index score 95% Short Term Goal (STG) Decrease Quickdash UE disability index score to no greater than 60% 07/30/19: good goal progress STG Duration MET [facility] Goal (LTG) Decrease Quickdash UE disability index score to no greater than 30% including able to reach overhead and behind his back for ADL's and usual daily activities without difficulty 07/30/19: good goal progress LTG Duration 08/28/19 Four Impairment Decreased flexibility in bilateral hips Administration Physician Goal (LTG) Improve PSLR to at least 75 degrees, hip ER to 70 and hip IR to 45 to improve overall function 07/12/20: good goal progress LTG Duration 08/15/20 Three Impairment LBP 06/20 Short Term Goal (STG) Decrease LBP to no greater than 5/10 with usual ADL's in the home 07/12/20 good goal progress STG Duration 06/24/20 Administration Physician Goal (LTG) Decrease LBP to no greater than 3/10 with usual activities including walks with his dog of at least 1 mile LTG Duration 08/15/20 Two Impairment decreased activity tolerance Oswestry 58% Short Term Goal (STG) Decrease Oswestry Score to no greater than 45% 07/12/20: good goal progress STG Duration 06/24/20 Administration Physician Goal (LTG) Improve activity tolerance as evidenced by a decrease Oswestry Score to no greater than 25% LTG Duration 08/15/20 One Impairment weakness LE's and core Short Term Goal (STG) Patient able to tolerate 45 min land-based exercises for the purpose of strengthening and core stabilization without an increase in pain or c/o excess fatigue 07/12/20: good goal progress STG Duration 06/24/20 [facility]sp Goal (LTG) Patient to be independent and compliant with HEP and aquatic exercise program for the purposes of [facility] fitness and 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 LTG Duration 08/15/20 Assessment Summary Assessment Manuela PT session well, some fatigue but no increase in pain. Continue to emphasize neutral alignment, core stab, gluteal activation. Physical Therapy Plan Frequency and Duration Frequency of Treatment 2x/Week Duration of Treatment 12 weeks Plan of Care Start Date 05/17/20 Plan of Care End Date 08/15/20 Therapeutic Interventions Therapeutic Interventions Aquatic Therapy,Home Exercise Program,Manual Therapy, Neuromuscular Re-education, Patient/Caregiver Education, Self-Care/Home Management,Soft Tissue Mobilization,Taping, Therapeutic Activities, Therapeutic Exercises Modalities Cold Pack/Ice Massage,Electric Stimulation,Hot Packs Next Visit Focus/Plan Next Note Type Re-Evaluation Next Visit Plan Continue to progress ther ex with core stab, facilitation of postural correction, flexibility.
--- NOTE | 2020-08-11 11:00 | PT.OTRE ---
Current Diagnoses Post-traumatic osteoarthritis, right ankle and foot (08/11/20) Other spondylosis with radiculopathy, lumbosacral region (08/11/20) Spinal stenosis, lumbar region without neurogenic claudication (08/11/20) Abnormal posture (08/11/20) Weakness (08/11/20) Past Medical History (Last Updated 08/10/20 @ 09:09 by Emily Gudino MD) Ankle fracture (Acute) Anxiety (Chronic Unknown) Aortic stenosis (Chronic) Ascending aorta dilatation (Acute) Bilateral carotid artery disease (Acute ~09/2018) Bilateral carpal tunnel syndrome (Acute) BPH (benign prostatic hyperplasia) (Chronic Unknown) BPH w urinary obs/LUTS (Acute) Cervical somatic dysfunction (Acute) Chronic back pain (Acute) Chronic kidney disease (Acute) Chronic pain syndrome (Chronic Unknown) Chronic renal insufficiency (Chronic Unknown) Coronary artery disease (Suspected Unknown) Depression (Chronic Unknown) Diabetes (Chronic Unknown) Diabetic neuropathy associated with type 2 diabetes mellitus (Acute) Edema of left lower extremity (Acute) Enlarged prostate (Acute) Erectile dysfunction (Acute) Erectile dysfunction (Acute) GERD (gastroesophageal reflux disease) (Chronic Unknown) History of ETOH abuse (Resolved Unknown) Hyperlipemia (Chronic Unknown) Hypertension (Chronic Unknown) Leg cramps, sleep related (Acute) Low back pain (Chronic Unknown) Lumbar back pain with radiculopathy affecting right lower extremity (Acute) Moderate right ankle sprain (Acute) Nonallopathic lesion of lumbar region, not elsewhere classified (Acute) Pancreatitis (Acute) Pelvic somatic dysfunction (Acute) Peripheral neuropathy (Chronic Unknown) Rheumatoid arthritis (Chronic Unknown) Rheumatoid arthritis (Acute) Sacral region somatic dysfunction (Acute) Salivary gland swelling (Acute) Seasonal allergic rhinitis (Acute) Seroma after procedure (Acute) Somatic dysfunction of right lower extremity (Acute) Stiff neck (Acute) Urine retention (Acute) Surgical History (Last Reviewed 08/10/20 @ 09:08 by Emily Gudino MD) History of back surgery (Resolved ~2012) History of surgery (Acute) History of surgical removal of skin lesion (Acute) Hx of cholecystectomy (Acute) S/P cervical spinal fusion (Acute) Status post hernia repair Status post knee surgery Vasectomy status (Acute) Visit Care Team Role Provider Type Cesar Bar DO Primary Care Provider Physician Specialty: [facility] Practice Address: [address] [place] [address], [id number] Email: Lashonda Cain MD Attending Provider Physician Referring Provider Specialty: Orthopedic Surgery Address: [address] [place] [address], [place], [address] Email: [email or web address] Re-Evaluation PT-OP-A Visit Information Start: 05/17/20 08:18 Freq: Status: Active Protocol: Document 08/11/20 08:15 SAK (Rec: 08/11/20 09:00 SAK [id number]) Out-Patient Physical Therapy Visit Information Visit Information Visit Type Treatment Note Visit Start Time 08:00 Visit Stop Time 09:00 Total Visit Minutes 60 Visit Number 14 Number of STRESS TEST TECHNICIAN Visits 0 PT-OP-B Current Condition Start: 05/17/20 08:18 Freq: Status: Active Protocol: Document 05/17/20 08:58 SAK (Rec: 05/17/20 09:42 SAK [id number]) Current Condition History of Current Condition Onset Date 01/06/20 Current Complaints Perisistent, function-limiting LBP s/p surgeryt. History of Current Condition Extensive lumbar surgery with fusion, required 2 transfusions of blood during recovery. 4 days in hospital, discharged home with home health. To ER 2x due to severe pain. Had seroma drained. Saw Dr. Cain 1 week ago, CT showed everything looked good. See him again in July. Reports disappointment; haven't been able to do the things he wants to do. Pain low at rest, increases with activity to high level at least 8/10. Doing dishes painful. Sitting in car painful. Usual ADL's painful. Blood pressure under control. Trying to go for walks but very limited distance due to pain. Hasn't been able to do other exercises. States he recently helped a neighbor with tiling his floor because he needed money. Wearing back brace most of the time when up; extends into thoracic spine in back. Rheumatology referral but hasn 't gone yet. Patient states he injured his right foot/ ankle while in hospital for surgery when he was assisted up in bed. Has been using heat for some pain control. Denies N/T in LE's. 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 Prior Treatments and Tests Procedure: 1. L2-3, L5-S1 posterolateral and posterior interbody fusion 2. L2-3, L5-S1 posterior interbody cage placement 3. L3-4. L4-5 posterior segmental instrumentation removal 4. L3-4, L4-5 revision laminectomy with exploration of fusion 5. L2-3, L3-4, L4-5, L5-S1 posterior segmental instrumentation with pedicle screw placement 6. L4-5 posterolatearl fusion 7. [place] of bone marrow from iliac crest through a separate incision 8. Utilization of microsurgical technique and operating microscope CT after surgery normal post- op changes. Wearing LSO brace. Future Testing and Treatments Planned Aquatic PT and land-based PT recommended, aquatic PT not open at this time due to Covid19; not opening until Phase 3 in [facility]. Treatment Goals Patient/Caregiver Goals Resume being able to take usual walks and do usual activities without pain. USP goal is to be able to kayak again. PT-OP-C Subjective Start: 05/17/20 08:18 Freq: Status: Active Protocol: Document 08/09/20 08:12 [facility] (Rec: 08/09/20 09:03 [facility] [id number]) OP-PT Subjective Patient Comments Patient Comments Didn't take muscle relaxant today, doesn't want to hide symptoms PT-OP-G Mobility & Gait Start: 05/17/20 08:18 Freq: Status: Active Protocol: Document 05/17/20 08:58 [facility] (Rec: 05/17/20 17:00 [facility] [id number]) OP Mobility Evaluation Bed Mobility Rolling indep Supine to and from Sit indep with log roll Transfers Sit to Stand independent with use of hands OP Gait Assessment Gait Gait Assistance Required: Independent Distance (Feet) 100 Assistive Devices Assistive Device None Gait Deviations General Gait Pattern Antalgic,Decreased Stride Length,Decreased Feet Clearance,Flexed Trunk Factors Limiting Gait Function Factors Limiting Gait Function Decreased Activity Tolerance, Decreased Strength,Pain PT-OP-J Posture/Palpation/Skin Start: 05/17/20 08:18 Freq: Status: Active Protocol: Document 05/17/20 08:58 [facility] (Rec: 05/17/20 17:00 [facility] [id number]) Posture Evaluation Position Sitting Head/C-Spine Posture Forward Head T-Spine Posture Increased Kyphosis L-Spine Posture Flattened Shoulder Posture (L) Rounded,(R) Rounded Scapula Posture (L) Protracted,(R) Protracted Palpation Assessment Location cervical spine Palpation Location bilateral lumbar spine Palpation Findings Muscle Guarding,Tenderness Skin Assessment Incisional Assessment Incision Appearance/Comments well healed, no signs of symptoms of infection, good scar mobility PT-OP-K Range of Motion Start: 05/17/20 08:18 Freq: Status: Active Protocol: Document 05/17/20 08:58 [facility] (Rec: 05/17/20 17:00 [facility] [id number]) Lumbar Spine Range of Motion Lumbar Spine Active Comments deferred to do spinal precautions, high pain level Hip Goniometric Range of Motion Hip Measured in Degrees coleen Hip ROM WFL No Testing Position Supine Straight Leg Raise 55 Extension 0 Internal Rotation 25 External Rotation 60 Hip ROM Limitations Hip ROM Limitations Soft Tissue Tightness Knee Goniometric Range of Motion Knee Measured in Degrees coleen Knee ROM WFL Yes Ankle and Foot Goniometric Range of Motion Ankle and Foot Measured in Degrees coleen Ankle/Foot ROM WFL Yes PT-OP-L Special Tests Start: 05/17/20 08:18 Freq: Status: Active Protocol: Document 05/17/20 08:58 [facility] (Rec: 05/17/20 17:00 [facility] [id number]) Special Tests Lumbar Spine Special Tests Straight Leg Raise Comments unable, painful PT-OP-M Strength Start: 05/17/20 08:18 Freq: Status: Active Protocol: Document 05/17/20 08:58 [facility] (Rec: 05/17/20 17:00 [facility] [id number]) Hip Strength Hip Manual Muscle Testing coleen Comments deferred due to high pain level Knee Strength Knee Manual Muscle Testing coleen Flexion (S2) 4 Good Extension (L3) 4 Good Ankle/Foot Strength Ankle and Foot Manual Muscle Testing Right Dorsiflexion (L4) 4- Good- Plantarflexion (S1) 4- Good- Comments painful Left Dorsiflexion (L4) 4+ Good+ Plantarflexion (S1) 4+ Good+ Toe Strength Toe Manual Muscle Testing Right Great Toe Flexion 4- Good- Extension 4- Good- Left Great Toe Flexion 5 Normal Extension 5 Normal PT-OP-Q Treatments Start: 05/17/20 08:18 Freq: Status: Active Protocol: Document 08/11/20 08:15 [facility] (Rec: 08/11/20 09:00 [facility] [id number]) Cardio Equipment Recumbent Stepper (Sci-Fit) Duration (Minutes) 15 Resistance 3.0 Seat Position 11 Gym Equipment Shuttle Balance chains red Details WBOS, NBOS Reps/Duration 5 min Comments emphasis on core activation and stabilization, cuing for body corrections alignment btn BLE 1. COG over MATTHEW 2. wt shift 3. head turns 4. EC Therapeutic Exercises Supine Exercises lat stretch Reps/Minutes 2x30 pec stretch Reps/Minutes 2x30 Sitting Exercises HS stretch Reps/Minutes 2x30 Comments cues for erect posture Standing Exercises wall posture Reps/Minutes 5x Comments cues for abdominal activation, ribs down, shoulders down and back, chin tuc HC stretch Equipment Used ORLIN Reps/Minutes 2x30 passive, 10x active Neuro Re-Education Treatment Balance Activities uneven obstacle course Details CG to min assist, LOB x 6; with assist patient able to step off safely Equipment hurdles, oval cushions, bal beam, boxes, pods Comments CGA- low Min A Assist as needed for LOB Cued glut and core facilitation COG over MATTHEW pre step for stability/safety. Eyes closed Details NBOS, stagger, tandem (EO only in PT) see HO. Equipment back to corner, chair front Comments 1. COG over MATTHEW foot triangle BLE 2. head turns 3. EC PT-OP-R Modalities Start: 05/17/20 08:18 Freq: Status: Active Protocol: Document 05/17/20 08:58 [facility] (Rec: 05/17/20 17:00 [facility] [id number]) Hot Pack/Cold Pack Treatment lumbar spine Patient Position Hooklying Treatment Duration (minutes) 15 Patient Tolerance Good PT-OP-T Assessment and Plan Start: 05/17/20 08:18 Freq: Status: Active Protocol: Document 08/11/20 08:15 [facility] (Rec: 08/11/20 09:00 [facility] [id number]) Physical Therapy Assessment Goals Six Impairment balance dysfunction SLS 4 sec, tandem 12sesc Group Home Goal (LTG) Patient will improve SLS to 10 sec coleen and tandem stand to at least 20 sec to improve safety witn mobility Five Impairment QuickDash UE disability index score 95% Short Term Goal (STG) Decrease Quickdash UE disability index score to no greater than 60% 07/30/19: good goal progress STG Duration MET Striper Goal (LTG) Decrease Quickdash UE disability index score to no greater than 30% including able to reach overhead and behind his back for ADL's and usual daily activities without difficulty 07/30/19: good goal progress 08/11/20: decreased to 43%. LTG Duration 08/28/19 Four Impairment Decreased flexibility in bilateral hips Group Home Goal (LTG) Improve PSLR to at least 75 degrees, hip ER to 70 and hip IR to 45 to improve overall function 07/12/20: good goal progress 08/11/20: PSLR increased to 65, ER to 60, IR to 30. LTG Duration 09/10/20 Three Impairment LBP 06/20 Short Term Goal (STG) Decrease LBP to no greater than 5/10 with usual ADL's in the home 07/12/20 good goal progress STG Duration goal met 08/11/20 Striper Goal (LTG) Decrease LBP to no greater than 3/10 with usual activities including walks with his dog of at least 1 mile 08/11/20: currently 3/10, occasional exacerbation with walks but patient reports improving. LTG Duration 09/10/20 Two Impairment decreased activity tolerance Oswestry 58% Short Term Goal (STG) Decrease Oswestry Score to no greater than 45% 07/12/20: good goal progress STG Duration goal met 08/11/20 Striper Goal (LTG) Improve activity tolerance as evidenced by a decrease Oswestry Score to no greater than25% 08/11/20: good progress, decreased to 26% LTG Duration 09/10/20 One Impairment weakness LE's and core Short Term Goal (STG) Patient able to tolerate 45 min land-based exercises for the purpose of strengthening and core stabilization without an increase in pain or c/o excess fatigue 07/12/20: good goal progress STG Duration goal met 08/11/20 Group Home Goal (LTG) Patient to be independent and compliant with HEP and aquatic exercise program for the 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 08/11/20: continue to progress HEP, unable to do aquatic therapy due to pandemic. LTG Duration 09/10/20 Assessment Summary Assessment Patient making good progress toward all PT goals. Updated goals include new goal for balance due to patient c/o. Patient highly motivated with more challenging obstacle course today, reported feeling muscles I haven't felt in a long time, and demonstrates improving core activation with all functional tasks. Cues for postural awareness and correction; has difficulty with wall posture ex. Recommend continued skilled PT to help patient fully achieve his goals and return to his prior level of function. Physical Therapy Plan Frequency and Duration Frequency of Treatment 2x/Week Duration of Treatment 4 weeks. Plan of Care Start Date 08/11/20 Plan of Care End Date 09/10/20 Therapeutic Interventions Therapeutic Interventions Aquatic Therapy,Home Exercise Program,Manual Therapy, Neuromuscular Re-education, Patient/Caregiver Education, Self-Care/Home Management,Soft Tissue Mobilization,Taping, Therapeutic Activities, Therapeutic Exercises Modalities Cold Pack/Ice Massage,Electric Stimulation,Hot Packs Next Visit Focus/Plan Next Note Type Treatment Note Next Visit Plan Continue to progress ther ex with core stab, facilitation of postural correction, flexibility, balance retraining.
--- NOTE | 2020-08-11 11:01 | PT.OPPOC ---
Physical, Occupational & Speech Therapy At [facility] Current Diagnoses Post-traumatic osteoarthritis, right ankle and foot (08/11/20) Other spondylosis with radiculopathy, lumbosacral region (08/11/20) Spinal stenosis, lumbar region without neurogenic claudication (08/11/20) Abnormal posture (08/11/20) Weakness (08/11/20) Visit Care Team Role Provider Type Cesar Bar DO Primary Care Provider Physician Specialty: Family Practice Address: [address] [place] [address], [id number] Email: Lashonda Cain MD Attending Provider Physician Referring Provider Specialty: Orthopedic Surgery Address: [address] [place] [address], [phone] Email: [email or web address] PT-OP-T Assessment and Plan Start: 05/17/20 08:18 Freq: Status: Active Protocol: Document 08/11/20 08:15 SAK (Rec: 08/11/20 09:00 SAK [id number]) Physical Therapy Assessment Goals Six Impairment balance dysfunction SLS 4 sec, tandem 12sesc [facility]iary Goal (LTG) Patient will improve SLS to 10 sec coleen and tandem stand to at least 20 sec to improve safety witn mobility Five Impairment QuickDash UE disability index score 95% Short Term Goal (STG) Decrease Quickdash UE disability index score to no greater than 60% 07/30/19: good goal progress STG Duration MET [facility] Goal (LTG) Decrease Quickdash UE disability index score to no greater than 30% including able to reach overhead and behind his back for ADL's and usual daily activities without difficulty 07/30/19: good goal progress 08/11/20: decreased to 43%. LTG Duration 08/28/19 Four Impairment Decreased flexibility in bilateral hips [facility]itentiary Goal (LTG) Improve PSLR to at least 75 degrees, hip ER to 70 and hip IR to 45 to improve overall function 07/12/20: good goal progress 08/11/20: PSLR increased to 65, ER to 60, IR to 30. LTG Duration 09/10/20 Three Impairment LBP 8/10 Short Term Goal (STG) Decrease LBP to no greater than 5/10 with usual ADL's in the home 07/12/20 good goal progress STG Duration goal met 08/11/20 Information Technology Security Analyst Goal (LTG) Decrease LBP to no greater than 3/10 with usual activities including walks with his dog of at least 1 mile 08/11/20: currently 3/10, occasional exacerbation with walks but patient reports improving. LTG Duration 09/10/20 Two Impairment decreased activity tolerance Oswestry 58% Short Term Goal (STG) Decrease Oswestry Score to no greater than 45% 07/12/20: good goal progress STG Duration goal met 08/11/20 Penitentiary Goal (LTG) Improve activity tolerance as evidenced by a decrease Oswestry Score to no greater than25% 08/11/20: good progress, decreased to 26% LTG Duration 09/10/20 One Impairment weakness LE's and core Short Term Goal (STG) Patient able to tolerate 45 min land-based exercises for the purpose of strengthening and core stabilization without an increase in pain or c/o excess fatigue 07/12/20: good goal progress STG Duration goal met 08/11/20 [facility]iary Goal (LTG) Patient to be independent and compliant with HEP and aquatic exercise program for the purposes of skilled nursing fitness and 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 08/11/20: continue to progress HEP, unable to do aquatic therapy due to pandemic. LTG Duration 09/10/20 Assessment Summary Assessment Patient making good progress toward all PT goals. Updated goals include new goal for balance due to patient c/o. Patient highly motivated with more challenging obstacle course today, reported feeling muscles I haven't felt in a long time, and demonstrates improving core activation with all functional tasks. Cues for postural awareness and correction; has difficulty with wall posture ex. Recommend continued skilled PT to help patient fully achieve his goals and return to his prior level of function. Physical Therapy Plan Frequency and Duration Frequency of Treatment 2x/Week Duration of Treatment 4 weeks. Plan of Care Start Date 08/11/20 Plan of Care End Date 09/10/20 Therapeutic Interventions Therapeutic Interventions Aquatic Therapy,Home Exercise Program,Manual Therapy, Neuromuscular Re-education, Patient/Caregiver Education, Self-Care/Home Management,Soft Tissue Mobilization,Taping, Therapeutic Activities, Therapeutic Exercises Modalities Cold Pack/Ice Massage,Electric Stimulation,Hot Packs Next Visit Focus/Plan Next Note Type Treatment Note Next Visit Plan Continue to progress ther ex with core stab, facilitation of postural correction, flexibility, balance retraining. Plan of Care Dates Plan of Care Start Date 08/11/20 Plan of Care End Date 09/10/20 Electronically Signed by: Simin Mahan, PT 08/11/20 1101 Please Sign and Return: I have reviewed this Plan of Care and certify that the skilled therapy services above are required to meet the patient?s needs. Physician Signature Date Printed Name and Credentials Clinical Instructor Signature Printed Name and Credentials
--- NOTE | 2020-08-17 10:08 | PT.OTN ---
Current Diagnoses Post-traumatic osteoarthritis, right ankle and foot (08/17/20) Other spondylosis with radiculopathy, lumbosacral region (08/17/20) Spinal stenosis, lumbar region without neurogenic claudication (08/17/20) Abnormal posture (08/17/20) Weakness (08/17/20) Physical Therapy Treatment Note PT-OP-A Visit Information Start: 05/17/20 08:18 Freq: Status: Active Protocol: Document 08/17/20 09:05 [facility] (Rec: 08/17/20 09:52 [facility] [id number]) Out-Patient Physical Therapy Visit Information Visit Information Visit Type Treatment Note Visit Start Time 09:00 Visit Stop Time 09:45 Total Visit Minutes 60 Visit Number 15 Number of CONING MACHINE OPERATOR Visits 0 PT-OP-B Current Condition Start: 05/17/20 08:18 Freq: Status: Active Protocol: Document 05/17/20 08:58 [facility] (Rec: 05/17/20 09:42 [facility] [id number]) Current Condition History of Current Condition Onset Date 01/06/20 Current Complaints Perisistent, function-limiting LBP s/p surgeryt. History of Current Condition Extensive lumbar surgery with fusion, required 2 transfusions of blood during recovery. 4 days in hospital, discharged home with home health. To ER 2x due to severe pain. Had seroma drained. Saw Dr. Cain 1 week ago, CT showed everything looked good. See him again in July. Reports disappointment; haven't been able to do the things he wants to do. Pain low at rest, increases with activity to high level at least 8/10. Doing dishes painful. Sitting in car painful. Usual ADL's painful. Blood pressure under control. Trying to go for walks but very limited distance due to pain. Hasn't been able to do other exercises. States he recently helped a neighbor with tiling his floor because he needed money. Wearing back brace most of the time when up; extends into thoracic spine in back. Rheumatology referral but hasn 't gone yet. Patient states he injured his right foot/ ankle while in hospital for surgery when he was assisted up in bed. Has been using heat for some pain control. Denies N/T in LE's. 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 Prior Treatments and Tests Procedure: 1. L2-3, L5-S1 posterolateral and posterior interbody fusion 2. L2-3, L5-S1 posterior interbody cage placement 3. L3-4. L4-5 posterior segmental instrumentation removal 4. L3-4, L4-5 revision laminectomy with exploration of fusion 5. L2-3, L3-4, L4-5, L5-S1 posterior segmental instrumentation with pedicle screw placement 6. L4-5 posterolatearl fusion 7. [place] of bone marrow from iliac crest through a separate incision 8. Utilization of microsurgical technique and operating microscope CT after surgery normal post- op changes. Wearing LSO brace. Future Testing and Treatments Planned Aquatic PT and land-based PT recommended, aquatic PT not open at this time due to Covid19; not opening until Phase 3 in [facility]. Treatment Goals Patient/Caregiver Goals Resume being able to take usual walks and do usual activities without pain. halfway goal is to be able to kayak again. PT-OP-C Subjective Start: 05/17/20 08:18 Freq: Status: Active Protocol: Document 08/17/20 09:05 [facility] (Rec: 08/17/20 09:52 [facility] [id number]) OP-PT Subjective Patient Comments Patient Comments Ready for a workout PT-OP-G Mobility & Gait Start: 05/17/20 08:18 Freq: Status: Active Protocol: Document 05/17/20 08:58 [facility] (Rec: 05/17/20 17:00 [facility] [id number]) OP Mobility Evaluation Bed Mobility Rolling indep Supine to and from Sit indep with log roll Transfers Sit to Stand independent with use of hands OP Gait Assessment Gait Gait Assistance Required: Independent Distance (Feet) 100 Assistive Devices Assistive Device None Gait Deviations General Gait Pattern Antalgic,Decreased Stride Length,Decreased Feet Clearance,Flexed Trunk Factors Limiting Gait Function Factors Limiting Gait Function Decreased Activity Tolerance, Decreased Strength,Pain PT-OP-J Posture/Palpation/Skin Start: 05/17/20 08:18 Freq: Status: Active Protocol: Document 05/17/20 08:58 [facility] (Rec: 05/17/20 17:00 [facility] [id number]) Posture Evaluation Position Sitting Head/C-Spine Posture Forward Head T-Spine Posture Increased Kyphosis L-Spine Posture Flattened Shoulder Posture (L) Rounded,(R) Rounded Scapula Posture (L) Protracted,(R) Protracted Palpation Assessment Location cervical spine Palpation Location bilateral lumbar spine Palpation Findings Muscle Guarding,Tenderness Skin Assessment Incisional Assessment Incision Appearance/Comments well healed, no signs of symptoms of infection, good scar mobility PT-OP-K Range of Motion Start: 05/17/20 08:18 Freq: Status: Active Protocol: Document 05/17/20 08:58 [facility] (Rec: 05/17/20 17:00 [facility] [id number]) Lumbar Spine Range of Motion Lumbar Spine Active Comments deferred to do spinal precautions, high pain level Hip Goniometric Range of Motion Hip coleen Hip ROM WFL No Testing Position Supine Straight Leg Raise 55 Extension 0 Internal Rotation 25 External Rotation 60 Hip ROM Limitations Hip ROM Limitations Soft Tissue Tightness Knee Goniometric Range of Motion Knee coleen Knee ROM WFL Yes Ankle and Foot Goniometric Range of Motion Ankle and Foot coleen Ankle/Foot ROM WFL Yes PT-OP-L Special Tests Start: 05/17/20 08:18 Freq: Status: Active Protocol: Document 05/17/20 08:58 [facility] (Rec: 05/17/20 17:00 [facility] [id number]) Special Tests Lumbar Spine Special Tests Straight Leg Raise Comments unable, painful PT-OP-M Strength Start: 05/17/20 08:18 Freq: Status: Active Protocol: Document 05/17/20 08:58 [facility] (Rec: 05/17/20 17:00 [facility] [id number]) Hip Strength Hip Manual Muscle Testing coleen Comments deferred due to high pain level Knee Strength Knee Manual Muscle Testing coleen Flexion (S2) 4 Good Extension (L3) 4 Good Ankle/Foot Strength Ankle and Foot Manual Muscle Testing Right Dorsiflexion (L4) 4- Good- Plantarflexion (S1) 4- Good- Comments painful Left Dorsiflexion (L4) 4+ Good+ Plantarflexion (S1) 4+ Good+ Toe Strength Toe Manual Muscle Testing Right Great Toe Flexion 4- Good- Extension 4- Good- Left Great Toe Flexion 5 Normal Extension 5 Normal PT-OP-Q Treatments Start: 05/17/20 08:18 Freq: Status: Active Protocol: Document 08/17/20 09:05 [facility] (Rec: 08/17/20 09:52 [facility] [id number]) Cardio Equipment Recumbent Stepper (Sci-Fit) Duration (Minutes) 15 Resistance 3.0 Seat Position 11 Therapeutic Exercises Standing Exercises modified side plank Reps/Minutes 5x ea Comments counter modified bird dog Reps/Minutes 5x 10 Comments holding treadmill bar wall posture Reps/Minutes 5x Comments cues for abdominal activation, ribs down, shoulders down and back, chin tuc HC stretch Equipment Used ORLIN Reps/Minutes 2x30 passive, 10x active Gait Training Gait Activity 1 Description level surface Device Used none Level of Assistance verbal cues Distance/Duration 100' Treatment Focus upright posture, core and gluteal activation Comments mackey bag on head after wall posture exercise Neuro Re-Education Treatment Balance Activities uneven obstacle course Details CG to min assist, LOB x 6; with assist patient able to step off safely Equipment hurdles, oval cushions, bal beam, boxes, pods Comments CGA- low Min A Assist as needed for LOB Cued glut and core facilitation COG over MATTHEW pre step for stability/safety. SLS Surface stable Reps/Duration 6 sec on R, 4 sec on L Comments cued elevated ribcage, level pelvis, glut facilitation for improved COG over MATTHEW on stationary leg mirror for visual feedback PT-OP-R Modalities Start: 05/17/20 08:18 Freq: Status: Active Protocol: Document 05/17/20 08:58 [facility] (Rec: 05/17/20 17:00 [facility] [id number]) Hot Pack/Cold Pack Treatment lumbar spine Patient Position Hooklying Treatment Duration (minutes) 15 Patient Tolerance Good PT-OP-T Assessment and Plan Start: 05/17/20 08:18 Freq: Status: Active Protocol: Document 08/17/20 09:05 [facility] (Rec: 08/17/20 09:52 [facility] [id number]) Physical Therapy Assessment Goals Six Impairment balance dysfunction SLS 4 sec, tandem 12sesc Regional Coordinator Goal (LTG) Patient will improve SLS to 10 sec coleen and tandem stand to at least 20 sec to improve safety witn mobility Five Impairment QuickDash UE disability index score 95% Short Term Goal (STG) Decrease Quickdash UE disability index score to no greater than 60% 07/30/19: good goal progress STG Duration MET Alf Goal (LTG) Decrease Quickdash UE disability index score to no greater than 30% including able to reach overhead and behind his back for ADL's and usual daily activities without difficulty 07/30/19: good goal progress 08/11/20: decreased to 43%. LTG Duration 08/28/19 Four Impairment Decreased flexibility in bilateral hips Alf Goal (LTG) Improve PSLR to at least 75 degrees, hip ER to 70 and hip IR to 45 to improve overall function 07/12/20: good goal progress 08/11/20: PSLR increased to 65, ER to 60, IR to 30. LTG Duration 09/10/20 Three Impairment LBP 06/20 Short Term Goal (STG) Decrease LBP to no greater than 5/10 with usual ADL's in the home 07/12/20 good goal progress STG Duration goal met 08/11/20 Alf Goal (LTG) Decrease LBP to no greater than 3/10 with usual activities including walks with his dog of at least 1 mile 08/11/20: currently 3/, occasional exacerbation with walks but patient reports improving. LTG Duration 09/10/20 Two Impairment decreased activity tolerance Oswestry 58% Short Term Goal (STG) Decrease Oswestry Score to no greater than 45% 07/12/20: good goal progress STG Duration goal met 08/11/20 Alf Goal (LTG) Improve activity tolerance as evidenced by a decrease Oswestry Score to no greater than25% 08/11/20: good progress, decreased to 26% LTG Duration 09/10/20 One Impairment weakness LE's and core Short Term Goal (STG) Patient able to tolerate 45 min land-based exercises for the purpose of strengthening and core stabilization without an increase in pain or c/o excess fatigue 07/12/20: good goal progress STG Duration goal met 08/11/20 Regional Coordinator Goal (LTG) Patient to be independent and compliant with HEP and aquatic exercise program for the purposes of fdc fitness and 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 08/11/20: continue to progress HEP, unable to do aquatic therapy due to pandemic. LTG Duration 09/10/20 Assessment Summary Assessment With single leg stance and modified bird dog, patient unable to stabilize adequately through core and hip; verbal, manual, and visual cues used for correction. Physical Therapy Plan Frequency and Duration Frequency of Treatment 2x/Week Duration of Treatment 4 weeks. Plan of Care Start Date 08/11/20 Plan of Care End Date 09/10/20 Therapeutic Interventions Therapeutic Interventions Aquatic Therapy,Home Exercise Program,Manual Therapy, Neuromuscular Re-education, Patient/Caregiver Education, Self-Care/Home Management,Soft Tissue Mobilization,Taping, Therapeutic Activities, Therapeutic Exercises Modalities Cold Pack/Ice Massage,Electric Stimulation,Hot Packs Next Visit Focus/Plan Next Note Type Treatment Note Next Visit Plan Continue to progress ther ex with core stab, facilitation of postural correction, flexibility, balance retraining. Add lunges. Issue written instructions for modified side plank and bird dog if able to perform after further instruction and review .
--- NOTE | 2020-08-23 08:07 | PT-OP ANOTE ---
Patient cancelled due to in ER, reason not known at this time
--- NOTE | 2020-08-30 08:59 | PT.OTN ---
Current Diagnoses Post-traumatic osteoarthritis, right ankle and foot (08/30/20) Other spondylosis with radiculopathy, lumbosacral region (08/30/20) Spinal stenosis, lumbar region without neurogenic claudication (08/30/20) Abnormal posture (08/30/20) Weakness (08/30/20) Physical Therapy Treatment Note PT-OP-A Visit Information Start: 05/17/20 08:18 Freq: Status: Active Protocol: Document 08/30/20 08:17 [facility] (Rec: 08/30/20 08:57 [facility] [id number]) Out-Patient Physical Therapy Visit Information Visit Information Visit Type Treatment Note Visit Start Time 08:15 Total Visit Minutes 60 Visit Number 17 Number of DIGITAL CAMERA TECHNICIAN Visits 0 PT-OP-B Current Condition Start: 05/17/20 08:18 Freq: Status: Active Protocol: Document 05/17/20 08:58 [facility] (Rec: 05/17/20 09:42 [facility] [id number]) Current Condition History of Current Condition Onset Date 01/06/20 Current Complaints Perisistent, function-limiting LBP s/p surgeryt. History of Current Condition Extensive lumbar surgery with fusion, required 2 transfusions of blood during recovery. 4 days in hospital, discharged home with home health. To ER 2x due to severe pain. Had seroma drained. Saw Dr. Cain 1 week ago, CT showed everything looked good. See him again in July. Reports disappointment; haven't been able to do the things he wants to do. Pain low at rest, increases with activity to high level at least 8/10. Doing dishes painful. Sitting in car painful. Usual ADL's painful. Blood pressure under control. Trying to go for walks but very limited distance due to pain. Hasn't been able to do other exercises. States he recently helped a neighbor with tiling his floor because he needed money. Wearing back brace most of the time when up; extends into thoracic spine in back. Rheumatology referral but hasn 't gone yet. Patient states he injured his right foot/ ankle while in hospital for surgery when he was assisted up in bed. Has been using heat for some pain control. Denies N/T in LE's. 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 Prior Treatments and Tests Procedure: 1. L2-3, L5-S1 posterolateral and posterior interbody fusion 2. L2-3, L5-S1 posterior interbody cage placement 3. L3-4. L4-5 posterior segmental instrumentation removal 4. L3-4, L4-5 revision laminectomy with exploration of fusion 5. L2-3, L3-4, L4-5, L5-S1 posterior segmental instrumentation with pedicle screw placement 6. L4-5 posterolatearl fusion 7. [place] of bone marrow from iliac crest through a separate incision 8. Utilization of microsurgical technique and operating microscope CT after surgery normal post- op changes. Wearing LSO brace. Future Testing and Treatments Planned Aquatic PT and land-based PT recommended, aquatic PT not open at this time due to Covid19; not opening until Phase 3 in [facility]. Treatment Goals Patient/Caregiver Goals Resume being able to take usual walks and do usual activities without pain. alf goal is to be able to kayak again. PT-OP-C Subjective Start: 05/17/20 08:18 Freq: Status: Active Protocol: Document 08/30/20 08:17 [facility] (Rec: 08/30/20 08:57 [facility] [id number]) OP-PT Subjective Patient Comments Patient Comments No MRI scheduled yet, continues use of crutches and wearing boot, NWB right LE. Sees Dr. Bar tomorrow. PT-OP-G Mobility & Gait Start: 05/17/20 08:18 Freq: Status: Active Protocol: Document 05/17/20 08:58 [facility] (Rec: 05/17/20 17:00 [facility] [id number]) OP Mobility Evaluation Bed Mobility Rolling indep Supine to and from Sit indep with log roll Transfers Sit to Stand independent with use of hands OP Gait Assessment Gait Gait Assistance Required: Independent Distance (Feet) 100 Assistive Devices Assistive Device None Gait Deviations General Gait Pattern Antalgic,Decreased Stride Length,Decreased Feet Clearance,Flexed Trunk Factors Limiting Gait Function Factors Limiting Gait Function Decreased Activity Tolerance, Decreased Strength,Pain PT-OP-J Posture/Palpation/Skin Start: 05/17/20 08:18 Freq: Status: Active Protocol: Document 05/17/20 08:58 [facility] (Rec: 05/17/20 17:00 [facility] [id number]) Posture Evaluation Position Sitting Head/C-Spine Posture Forward Head T-Spine Posture Increased Kyphosis L-Spine Posture Flattened Shoulder Posture (L) Rounded,(R) Rounded Scapula Posture (L) Protracted,(R) Protracted Palpation Assessment Location cervical spine Palpation Location bilateral lumbar spine Palpation Findings Muscle Guarding,Tenderness Skin Assessment Incisional Assessment Incision Appearance/Comments well healed, no signs of symptoms of infection, good scar mobility PT-OP-K Range of Motion Start: 05/17/20 08:18 Freq: Status: Active Protocol: Document 05/17/20 08:58 [facility] (Rec: 05/17/20 17:00 [facility] [id number]) Lumbar Spine Range of Motion Lumbar Spine Active Comments deferred to do spinal precautions, high pain level Hip Goniometric Range of Motion Hip coleen Hip ROM WFL No Testing Position Supine Straight Leg Raise 55 Extension 0 Internal Rotation 25 External Rotation 60 Hip ROM Limitations Hip ROM Limitations Soft Tissue Tightness Knee Goniometric Range of Motion Knee coleen Knee ROM WFL Yes Ankle and Foot Goniometric Range of Motion Ankle and Foot coleen Ankle/Foot ROM WFL Yes PT-OP-L Special Tests Start: 05/17/20 08:18 Freq: Status: Active Protocol: Document 05/17/20 08:58 [facility] (Rec: 05/17/20 17:00 [facility] [id number]) Special Tests Lumbar Spine Special Tests Straight Leg Raise Comments unable, painful PT-OP-M Strength Start: 05/17/20 08:18 Freq: Status: Active Protocol: Document 05/17/20 08:58 [facility] (Rec: 05/17/20 17:00 [facility] [id number]) Hip Strength Hip Manual Muscle Testing coleen Comments deferred due to high pain level Knee Strength Knee Manual Muscle Testing coleen Flexion (S2) 4 Good Extension (L3) 4 Good Ankle/Foot Strength Ankle and Foot Manual Muscle Testing Right Dorsiflexion (L4) 4- Good- Plantarflexion (S1) 4- Good- Comments painful Left Dorsiflexion (L4) 4+ Good+ Plantarflexion (S1) 4+ Good+ Toe Strength Toe Manual Muscle Testing Right Great Toe Flexion 4- Good- Extension 4- Good- Left Great Toe Flexion 5 Normal Extension 5 Normal PT-OP-Q Treatments Start: 05/17/20 08:18 Freq: Status: Active Protocol: Document 08/30/20 08:17 [facility] (Rec: 08/30/20 08:57 [facility] [id number]) Therapeutic Exercises Sitting Exercises LAQ Reps/Minutes 10x2 Comments With roll under knees, small bridge to neutral spine pull down Sitting Exercise Name facing away from bands Resistance L2 TB Reps/Minutes 10x hip ab/ER Resistance L2 TB Reps/Minutes 10x glut set Reps/Minutes 10x ball squeeze Reps/Minutes 10x shoulder extension Resistance L2 TB Reps/Minutes 10x2 row Resistance L2 TB Reps/Minutes 10x2 Self-Care/Home Management Treatment Education Other Education importance of continuing with HEP with modifications to sitting and supine as done today. Add pull down with theraband. PT-OP-R Modalities Start: 05/17/20 08:18 Freq: Status: Active Protocol: Document 08/30/20 08:17 [facility] (Rec: 08/30/20 08:59 [facility] [id number]) Hot Pack/Cold Pack Treatment right foot/ankle Patient Position Hooklying Treatment Duration (minutes) 10 Comments cryocuff lumbar spine Patient Position Hooklying Treatment Duration (minutes) 15 Patient Tolerance Good Comments hot pack PT-OP-T Assessment and Plan Start: 05/17/20 08:18 Freq: Status: Active Protocol: Document 08/30/20 08:17 [facility] (Rec: 08/30/20 08:57 [facility] [id number]) Physical Therapy Assessment Goals Six Impairment balance dysfunction SLS 4 sec, tandem 12sesc Pecan Cleaner Goal (LTG) Patient will improve SLS to 10 sec coleen and tandem stand to at least 20 sec to improve safety witn mobility Five Impairment QuickDash UE disability index score 95% Short Term Goal (STG) Decrease Quickdash UE disability index score to no greater than 60% 07/30/19: good goal progress STG Duration MET Pecan [employer]er Goal (LTG) Decrease Quickdash UE disability index score to no greater than 30% including able to reach overhead and behind his back for ADL's and usual daily activities without difficulty 07/30/19: good goal progress 08/11/20: decreased to 43%. LTG Duration 08/28/19 Four Impairment Decreased flexibility in bilateral hips Senior Living Goal (LTG) Improve PSLR to at least 75 degrees, hip ER to 70 and hip IR to 45 to improve overall function 07/12/20: good goal progress 08/11/20: PSLR increased to 65, ER to 60, IR to 30. LTG Duration 09/10/20 Three Impairment LBP 06/20 Short Term Goal (STG) Decrease LBP to no greater than 5/10 with usual ADL's in the home 07/12/20 good goal progress STG Duration goal met 08/11/20 Senior Living Goal (LTG) Decrease LBP to no greater than 3/10 with usual activities including walks with his dog of at least 1 mile 08/11/20: currently 3/10, occasional exacerbation with walks but patient reports improving. LTG Duration 09/10/20 Two Impairment decreased activity tolerance Oswestry 58% Short Term Goal (STG) Decrease Oswestry Score to no greater than 45% 07/12/20: good goal progress STG Duration goal met 08/11/20 Pecan Cleaner Goal (LTG) Improve activity tolerance as evidenced by a decrease Oswestry Score to no greater than25% 08/11/20: good progress, decreased to 26% LTG Duration 09/10/20 One Impairment weakness LE's and core Short Term Goal (STG) Patient able to tolerate 45 min land-based exercises for the purpose of strengthening and core stabilization without an increase in pain or c/o excess fatigue 07/12/20: good goal progress STG Duration goal met 08/11/20 Pecan [employer]er Goal (LTG) Patient to be independent and compliant with HEP and aquatic exercise program 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 08/11/20: continue to progress HEP, unable to do aquatic therapy due to pandemic. LTG Duration 09/10/20 Assessment Summary Assessment Demonstrated good understanding of modified HEP for sitting and supine. Good core activation with combination SAQ and mini bridge. Patient awaiting approval for MRI for right ankle. Physical Therapy Plan Frequency and Duration Frequency of Treatment 2x/Week Duration of Treatment 4 weeks. Plan of Care Start Date 08/11/20 Plan of Care End Date 09/10/20 Therapeutic Interventions Therapeutic Interventions Aquatic Therapy,Home Exercise Program,Manual Therapy, Neuromuscular Re-education, Patient/Caregiver Education, Self-Care/Home Management,Soft Tissue Mobilization,Taping, Therapeutic Activities, Therapeutic Exercises Modalities Cold Pack/Ice Massage,Electric Stimulation,Hot Packs Next Visit Focus/Plan Next Note Type Treatment Note Next Visit Plan Continue progression of core exercises in modified position , to continue strengthening and stabilization especially for back protection with modified gait due to foot/ ankle injury.
--- NOTE | 2020-09-01 08:58 | PT.OTN ---
Current Diagnoses Post-traumatic osteoarthritis, right ankle and foot (09/01/20) Other spondylosis with radiculopathy, lumbosacral region (09/01/20) Spinal stenosis, lumbar region without neurogenic claudication (09/01/20) Abnormal posture (09/01/20) Weakness (09/01/20) Physical Therapy Treatment Note PT-OP-A Visit Information Start: 05/17/20 08:18 Freq: Status: Active Protocol: Document 09/01/20 08:14 [facility] (Rec: 09/01/20 08:55 [facility] [id number]) Out-Patient Physical Therapy Visit Information Visit Information Visit Type Treatment Note Visit Start Time 08:15 Visit Stop Time 09:15 Total Visit Minutes 60 Visit Number 18 Number of GEOGRAPHY INSTRUCTOR Visits 0 Evaluation Information Evaluation Date 05/17/20 Precautions Precautions PMH: peripheral neuropathy, RA , HTN, DM, anxiety, chronic back pain, depression, memory dysfunction PT-OP-B Current Condition Start: 05/17/20 08:18 Freq: Status: Active Protocol: Document 05/17/20 08:58 [facility] (Rec: 05/17/20 09:42 [facility] [id number]) Current Condition History of Current Condition Onset Date 01/06/20 Current Complaints Perisistent, function-limiting LBP s/p surgeryt. History of Current Condition Extensive lumbar surgery with fusion, required 2 transfusions of blood during recovery. 4 days in hospital, discharged home with home health. To ER 2x due to severe pain. Had seroma drained. Saw Dr. Cain 1 week ago, CT showed everything looked good. See him again in July. Reports disappointment; haven't been able to do the things he wants to do. Pain low at rest, increases with activity to high level at least 8/10. Doing dishes painful. Sitting in car painful. Usual ADL's painful. Blood pressure under control. Trying to go for walks but very limited distance due to pain. Hasn't been able to do other exercises. States he recently helped a neighbor with tiling his floor because he needed money. Wearing back brace most of the time when up; extends into thoracic spine in back. Rheumatology referral but hasn 't gone yet. Patient states he injured his right foot/ ankle while in hospital for surgery when he was assisted up in bed. Has been using heat for some pain control. Denies N/T in LE's. 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 Prior Treatments and Tests Procedure: 1. L2-3, L5-S1 posterolateral and posterior interbody fusion 2. L2-3, L5-S1 posterior interbody cage placement 3. L3-4. L4-5 posterior segmental instrumentation removal 4. L3-4, L4-5 revision laminectomy with exploration of fusion 5. L2-3, L3-4, L4-5, L5-S1 posterior segmental instrumentation with pedicle screw placement 6. L4-5 posterolatearl fusion 7. [facility] of bone marrow from iliac crest through a separate incision 8. Utilization of microsurgical technique and operating microscope CT after surgery normal post- op changes. Wearing LSO brace. Future Testing and Treatments Planned Aquatic PT and land-based PT recommended, aquatic PT not open at this time due to Covid19; not opening until Phase 3 in [facility]. Treatment Goals Patient/Caregiver Goals Resume being able to take usual walks and do usual activities without pain. 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 PT-OP-C Subjective Start: 05/17/20 08:18 Freq: Status: Active Protocol: Document 09/01/20 08:14 [facility] (Rec: 09/01/20 08:55 [facility] [id number]) OP-PT Subjective Patient Comments Patient Comments No new c/o, saw Dr. Bar yesterday for dry needling, decreased pain Has MRI tomorrow. PT-OP-G Mobility & Gait Start: 05/17/20 08:18 Freq: Status: Active Protocol: Document 05/17/20 08:58 [facility] (Rec: 05/17/20 17:00 [facility] [id number]) OP Mobility Evaluation Bed Mobility Rolling indep Supine to and from Sit indep with log roll Transfers Sit to Stand independent with use of hands OP Gait Assessment Gait Gait Assistance Required: Independent Distance (Feet) 100 Assistive Devices Assistive Device None Gait Deviations General Gait Pattern Antalgic,Decreased Stride Length,Decreased Feet Clearance,Flexed Trunk Factors Limiting Gait Function Factors Limiting Gait Function Decreased Activity Tolerance, Decreased Strength,Pain PT-OP-J Posture/Palpation/Skin Start: 05/17/20 08:18 Freq: Status: Active Protocol: Document 05/17/20 08:58 [facility] (Rec: 05/17/20 17:00 [facility] [id number]) Posture Evaluation Position Sitting Head/C-Spine Posture Forward Head T-Spine Posture Increased Kyphosis L-Spine Posture Flattened Shoulder Posture (L) Rounded,(R) Rounded Scapula Posture (L) Protracted,(R) Protracted Palpation Assessment Location cervical spine Palpation Location bilateral lumbar spine Palpation Findings Muscle Guarding,Tenderness Skin Assessment Incisional Assessment Incision Appearance/Comments well healed, no signs of symptoms of infection, good scar mobility PT-OP-K Range of Motion Start: 05/17/20 08:18 Freq: Status: Active Protocol: Document 05/17/20 08:58 [facility] (Rec: 05/17/20 17:00 [facility] [id number]) Lumbar Spine Range of Motion Lumbar Spine Active Comments deferred to do spinal precautions, high pain level Hip Goniometric Range of Motion Hip coleen Hip ROM WFL No Testing Position Supine Straight Leg Raise 55 Extension 0 Internal Rotation 25 External Rotation 60 Hip ROM Limitations Hip ROM Limitations Soft Tissue Tightness Knee Goniometric Range of Motion Knee coleen Knee ROM WFL Yes Ankle and Foot Goniometric Range of Motion Ankle and Foot coleen Ankle/Foot ROM WFL Yes PT-OP-L Special Tests Start: 05/17/20 08:18 Freq: Status: Active Protocol: Document 05/17/20 08:58 [facility] (Rec: 05/17/20 17:00 [facility] [id number]) Special Tests Lumbar Spine Special Tests Straight Leg Raise Comments unable, painful PT-OP-M Strength Start: 05/17/20 08:18 Freq: Status: Active Protocol: Document 05/17/20 08:58 [facility] (Rec: 05/17/20 17:00 [facility] [id number]) Hip Strength Hip Manual Muscle Testing coleen Comments deferred due to high pain level Knee Strength Knee Manual Muscle Testing coleen Flexion (S2) 4 Good Extension (L3) 4 Good Ankle/Foot Strength Ankle and Foot Manual Muscle Testing Right Dorsiflexion (L4) 4- Good- Plantarflexion (S1) 4- Good- Comments painful Left Dorsiflexion (L4) 4+ Good+ Plantarflexion (S1) 4+ Good+ Toe Strength Toe Manual Muscle Testing Right Great Toe Flexion 4- Good- Extension 4- Good- Left Great Toe Flexion 5 Normal Extension 5 Normal PT-OP-Q Treatments Start: 05/17/20 08:18 Freq: Status: Active Protocol: Document 09/01/20 08:14 [facility] (Rec: 09/01/20 08:55 [facility] [id number]) Cardio Equipment Upper Body Ergometer (UBE) Duration (Minutes) 6 RPM 90 Seat Position 10 Height 3 Therapeutic Exercises Supine Exercises bridge Reps/Minutes 10x2 Comments knees on foam roller pec stretch Reps/Minutes 2x30 Sitting Exercises sh ER with ball squeeze Resistance L2 TB, ball Reps/Minutes 10x crunch Comments with neutral spine, hip hinge pull down Sitting Exercise Name facing away from bands Resistance L2 TB Reps/Minutes 10x hip ab/ER Resistance L2 TB Reps/Minutes 10x ball squeeze Reps/Minutes 10x shoulder extension Resistance L2 TB Reps/Minutes 10x2 row Resistance L2 TB Reps/Minutes 10x2 Comments lo and hi rows PT-OP-R Modalities Start: 05/17/20 08:18 Freq: Status: Active Protocol: Document 09/01/20 08:14 [facility] (Rec: 09/01/20 08:58 [facility] [id number]) Hot Pack/Cold Pack Treatment right foot/ankle Patient Position Hooklying Treatment Duration (minutes) 10 Comments cryocuff lumbar spine Patient Position Hooklying Treatment Duration (minutes) 15 Patient Tolerance Good Comments hot pack PT-OP-T Assessment and Plan Start: 05/17/20 08:18 Freq: Status: Active Protocol: Document 09/01/20 08:14 [facility] (Rec: 09/01/20 08:55 [facility] [id number]) Physical Therapy Assessment Impairments Impairments Activity Tolerance,Pain, Posture,ROM,Strength Assessment Summary Assessment Continue to progress with modified ex for core strengthening, no c/o increased back pain with crutch walking. Needed review on neutral postural alignment and correct use of crutches. Physical Therapy Plan Frequency and Duration Frequency of Treatment 2x/Week Duration of Treatment 4 weeks. Plan of Care Start Date 08/11/20 Plan of Care End Date 09/10/20 Therapeutic Interventions Therapeutic Interventions Aquatic Therapy,Home Exercise Program,Manual Therapy, Neuromuscular Re-education, Patient/Caregiver Education, Self-Care/Home Management,Soft Tissue Mobilization,Taping, Therapeutic Activities, Therapeutic Exercises Modalities Cold Pack/Ice Massage,Electric Stimulation,Hot Packs Next Visit Focus/Plan Next Note Type Treatment Note Next Visit Plan Continue progression of core exercises in modified position , to continue strengthening and stabilization especially for back protection with modified gait due to foot/ ankle injury.
--- NOTE | 2020-09-06 08:59 | PT.OTN ---
Current Diagnoses Post-traumatic osteoarthritis, right ankle and foot (09/06/20) Other spondylosis with radiculopathy, lumbosacral region (09/06/20) Spinal stenosis, lumbar region without neurogenic claudication (09/06/20) Abnormal posture (09/06/20) Weakness (09/06/20) Physical Therapy Treatment Note PT-OP-A Visit Information Start: 05/17/20 08:18 Freq: Status: Active Protocol: Document 09/06/20 08:15 [facility] (Rec: 09/06/20 08:59 [facility] [id number]) Out-Patient Physical Therapy Visit Information Visit Information Visit Type Treatment Note Visit Start Time 08:15 Visit Stop Time 09:13 Total Visit Minutes 58 Visit Number [id number] Number of UNIVERSITY DEMONSTRATOR Visits 0 Precautions Precautions PMH: peripheral neuropathy, RA , HTN, DM, anxiety, chronic back pain, depression, memory dysfunction PT-OP-B Current Condition Start: 05/17/20 08:18 Freq: Status: Active Protocol: Document 05/17/20 08:58 SAK (Rec: 05/17/20 09:42 SAK [id number]) Current Condition History of Current Condition Onset Date 01/06/20 Current Complaints Perisistent, function-limiting LBP s/p surgeryt. History of Current Condition Extensive lumbar surgery with fusion, required 2 transfusions of blood during recovery. 4 days in hospital, discharged home with home health. To ER 2x due to severe pain. Had seroma drained. Saw Dr. Cain 1 week ago, CT showed everything looked good. See him again in July. Reports disappointment; haven't been able to do the things he wants to do. Pain low at rest, increases with activity to high level at least 8/10. Doing dishes painful. Sitting in car painful. Usual ADL's painful. Blood pressure under control. Trying to go for walks but very limited distance due to pain. Hasn't been able to do other exercises. States he recently helped a neighbor with tiling his floor because he needed money. Wearing back brace most of the time when up; extends into thoracic spine in back. Rheumatology referral but hasn 't gone yet. Patient states he injured his right foot/ ankle while in hospital for surgery when he was assisted up in bed. Has been using heat for some pain control. Denies N/T in LE's. 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 Prior Treatments and Tests Procedure: 1. L2-3, L5-S1 posterolateral and posterior interbody fusion 2. L2-3, L5-S1 posterior interbody cage placement 3. L3-4. L4-5 posterior segmental instrumentation removal 4. L3-4, L4-5 revision laminectomy with exploration of fusion 5. L2-3, L3-4, L4-5, L5-S1 posterior segmental instrumentation with pedicle screw placement 6. L4-5 posterolatearl fusion 7. [place] of bone marrow from iliac crest through a separate incision 8. Utilization of microsurgical technique and operating microscope CT after surgery normal post- op changes. Wearing LSO brace. Future Testing and Treatments Planned Aquatic PT and land-based PT recommended, aquatic PT not open at this time due to Covid19; not opening until Phase 3 in [facility]. Treatment Goals Patient/Caregiver Goals Resume being able to take usual walks and do usual activities without pain. alf goal is to be able to kayak again. PT-OP-C Subjective Start: 05/17/20 08:18 Freq: Status: Active Protocol: Document 09/06/20 08:15 [facility] (Rec: 09/06/20 08:59 [facility] [id number]) OP-PT Subjective Patient Comments Patient Comments Had MRI, no results yet. Not wearing boot, using crutches, or cane due to late for PT. Reports pain decreased in ankle but still has. Continueal, low grade irritation in low back due to limping. PT-OP-G Mobility & Gait Start: 05/17/20 08:18 Freq: Status: Active Protocol: Document 05/17/20 08:58 [facility] (Rec: 05/17/20 17:00 [facility] [id number]) OP Mobility Evaluation Bed Mobility Rolling indep Supine to and from Sit indep with log roll Transfers Sit to Stand independent with use of hands OP Gait Assessment Gait Gait Assistance Required: Independent Distance (Feet) 100 Assistive Devices Assistive Device None Gait Deviations General Gait Pattern Antalgic,Decreased Stride Length,Decreased Feet Clearance,Flexed Trunk Factors Limiting Gait Function Factors Limiting Gait Function Decreased Activity Tolerance, Decreased Strength,Pain PT-OP-J Posture/Palpation/Skin Start: 05/17/20 08:18 Freq: Status: Active Protocol: Document 05/17/20 08:58 [facility] (Rec: 05/17/20 17:00 [facility] [id number]) Posture Evaluation Position Sitting Head/C-Spine Posture Forward Head T-Spine Posture Increased Kyphosis L-Spine Posture Flattened Shoulder Posture (L) Rounded,(R) Rounded Scapula Posture (L) Protracted,(R) Protracted Palpation Assessment Location cervical spine Palpation Location bilateral lumbar spine Palpation Findings Muscle Guarding,Tenderness Skin Assessment Incisional Assessment Incision Appearance/Comments well healed, no signs of symptoms of infection, good scar mobility PT-OP-K Range of Motion Start: 05/17/20 08:18 Freq: Status: Active Protocol: Document 05/17/20 08:58 [facility] (Rec: 05/17/20 17:00 [facility] [id number]) Lumbar Spine Range of Motion Lumbar Spine Active Comments deferred to do spinal precautions, high pain level Hip Goniometric Range of Motion Hip coleen Hip ROM WFL No Testing Position Supine Straight Leg Raise 55 Extension 0 Internal Rotation 25 External Rotation 60 Hip ROM Limitations Hip ROM Limitations Soft Tissue Tightness Knee Goniometric Range of Motion Knee coleen Knee ROM WFL Yes Ankle and Foot Goniometric Range of Motion Ankle and Foot coleen Ankle/Foot ROM WFL Yes PT-OP-L Special Tests Start: 05/17/20 08:18 Freq: Status: Active Protocol: Document 05/17/20 08:58 [facility] (Rec: 05/17/20 17:00 [facility] [id number]) Special Tests Lumbar Spine Special Tests Straight Leg Raise Comments unable, painful PT-OP-M Strength Start: 05/17/20 08:18 Freq: Status: Active Protocol: Document 05/17/20 08:58 [facility] (Rec: 05/17/20 17:00 [facility] [id number]) Hip Strength Hip Manual Muscle Testing coleen Comments deferred due to high pain level Knee Strength Knee Manual Muscle Testing coleen Flexion (S2) 4 Good Extension (L3) 4 Good Ankle/Foot Strength Ankle and Foot Manual Muscle Testing Right Dorsiflexion (L4) 4- Good- Plantarflexion (S1) 4- Good- Comments painful Left Dorsiflexion (L4) 4+ Good+ Plantarflexion (S1) 4+ Good+ Toe Strength Toe Manual Muscle Testing Right Great Toe Flexion 4- Good- Extension 4- Good- Left Great Toe Flexion 5 Normal Extension 5 Normal PT-OP-Q Treatments Start: 05/17/20 08:18 Freq: Status: Active Protocol: Document 09/06/20 08:15 [facility] (Rec: 09/06/20 08:59 [facility] [id number]) Cardio Equipment Upper Body Ergometer (UBE) Duration (Minutes) 10 RPM 60 Seat Position 10 Height 3 Therapeutic Exercises Supine Exercises bridge Reps/Minutes 10x2 Comments knees on foam roller SLR Resistance 2# left, walking boot right Reps/Minutes 6 x 2 Comments cues on engagement of abdominals, bend knee as needed pec stretch Reps/Minutes 2x30 Sidelying Exercises hip abd Reps/Minutes 8x Comments to fatigue Sitting Exercises sh ER with ball squeeze Resistance L2 TB, ball Reps/Minutes 10x crunch Sitting Exercise Name seated lean back Comments with neutral spine, hip hinge, ball between knees LAQ Reps/Minutes 10x2 Comments With roll under knees, small bridge to neutral spine pull down Sitting Exercise Name facing away from bands Resistance L2 TB Reps/Minutes 10x hip ab/ER Resistance L2 TB Reps/Minutes 10x shoulder extension Resistance L2 TB Reps/Minutes 10x2 row Resistance L2 TB Reps/Minutes 10x2 Comments lo and hi rows piriformis stretch Reps/Minutes 2x 30 pulleys shoulder ab Reps/Minutes 10x pulleys shoulder fle Reps/Minutes 10x wrist flex,ext, forearm pron/sup Equipment Used 1# weights Reps/Minutes 10x overhead press Resistance 1#, 2# weights Reps/Minutes 10x2 PT-OP-R Modalities Start: 05/17/20 08:18 Freq: Status: Active Protocol: Document 09/06/20 08:15 [facility] (Rec: 09/06/20 08:59 [facility] [id number]) Hot Pack/Cold Pack Treatment right foot/ankle Patient Position Hooklying Treatment Duration (minutes) 10 Comments cryocuff lumbar spine Patient Position Hooklying Treatment Duration (minutes) 15 Patient Tolerance Good Comments hot pack PT-OP-T Assessment and Plan Start: 05/17/20 08:18 Freq: Status: Active Protocol: Document 09/06/20 08:15 [facility] (Rec: 09/06/20 08:59 [facility] [id number]) Physical Therapy Assessment Goals Six Impairment balance dysfunction SLS 4 sec, tandem 12sesc Maintainer Operator Goal (LTG) Patient will improve SLS to 10 sec coleen and tandem stand to at least 20 sec to improve safety witn mobility Five Impairment QuickDash UE disability index score 95% Short Term Goal (STG) Decrease Quickdash UE disability index score to no greater than 60% 07/30/19: good goal progress STG Duration MET Maintainer Operator Goal (LTG) Decrease Quickdash UE disability index score to no greater than 30% including able to reach overhead and behind his back for ADL's and usual daily activities without difficulty 07/30/19: good goal progress 08/11/20: decreased to 43%. LTG Duration 08/28/19 Four Impairment Decreased flexibility in bilateral hips Residential Goal (LTG) Improve PSLR to at least 75 degrees, hip ER to 70 and hip IR to 45 to improve overall function 07/12/20: good goal progress 08/11/20: PSLR increased to 65, ER to 60, IR to 30. LTG Duration 09/10/20 Three Impairment LBP 8/10 Short Term Goal (STG) Decrease LBP to no greater than 5/10 with usual ADL's in the home 07/12/20 good goal progress STG Duration goal met 08/11/20 Maintainer Operator Goal (LTG) Decrease LBP to no greater than 3/10 with usual activities including walks with his dog of at least 1 mile 08/11/20: currently 3/10, occasional exacerbation with walks but patient reports improving. LTG Duration 09/10/20 Two Impairment decreased activity tolerance Oswestry 58% Short Term Goal (STG) Decrease Oswestry Score to no greater than 45% 07/12/20: good goal progress STG Duration goal met 08/11/20 Residential Goal (LTG) Improve activity tolerance as evidenced by a decrease Oswestry Score to no greater than25% 08/11/20: good progress, decreased to 26% LTG Duration 09/10/20 One Impairment weakness LE's and core Short Term Goal (STG) Patient able to tolerate 45 min land-based exercises for the purpose of strengthening and core stabilization without an increase in pain or c/o excess fatigue 07/12/20: good goal progress STG Duration goal met 08/11/20 Residential Goal (LTG) Patient to be independent and compliant with HEP and aquatic exercise program for the 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 08/11/20: continue to progress HEP, unable to do aquatic therapy due to pandemic. LTG Duration 09/10/20 Assessment Summary Assessment use of ball squeeze for increased abdominal activation with all seated exercises with good tolerance. Cues for correct form and ankle protection with SLR, S/L hip abduction. Awaiting results of MRI, patient may benefit from PT for ankle pending results and physician recomendation. Physical Therapy Plan Frequency and Duration Frequency of Treatment 2x/Week Duration of Treatment 4 weeks. Plan of Care Start Date 08/11/20 Plan of Care End Date 09/10/20 Therapeutic Interventions Therapeutic Interventions Aquatic Therapy,Home Exercise Program,Manual Therapy, Neuromuscular Re-education, Patient/Caregiver Education, Self-Care/Home Management,Soft Tissue Mobilization,Taping, Therapeutic Activities, Therapeutic Exercises Modalities Cold Pack/Ice Massage,Electric Stimulation,Hot Packs Next Visit Focus/Plan Next Note Type Treatment Note Next Visit Plan Continue progression of core exercises in modified position , to continue strengthening and stabilization especially for back protection with modified gait due to foot/ ankle injury.
--- NOTE | 2020-09-08 08:59 | PT.OTN ---
Current Diagnoses Post-traumatic osteoarthritis, right ankle and foot (09/08/20) Other spondylosis with radiculopathy, lumbosacral region (09/08/20) Spinal stenosis, lumbar region without neurogenic claudication (09/08/20) Abnormal posture (09/08/20) Weakness (09/08/20) Physical Therapy Treatment Note PT-OP-A Visit Information Start: 05/17/20 08:18 Freq: Status: Active Protocol: Document 09/08/20 08:13 [facility] (Rec: 09/08/20 08:59 [facility] [id number]) Out-Patient Physical Therapy Visit Information Visit Information Visit Type Treatment Note Visit Start Time 08:15 Visit Stop Time 09:13 Total Visit Minutes 58 Visit Number 20 Evaluation Information Evaluation Date 05/17/20 Precautions Precautions PMH: peripheral neuropathy, RA , HTN, DM, anxiety, chronic back pain, depression, memory dysfunction PT-OP-B Current Condition Start: 05/17/20 08:18 Freq: Status: Active Protocol: Document 05/17/20 08:58 [facility] (Rec: 05/17/20 09:42 [facility] [id number]) Current Condition History of Current Condition Onset Date 01/06/20 Current Complaints Perisistent, function-limiting LBP s/p surgeryt. History of Current Condition Extensive lumbar surgery with fusion, required 2 transfusions of blood during recovery. 4 days in hospital, discharged home with home health. To ER 2x due to severe pain. Had seroma drained. Saw Dr. Cain 1 week ago, CT showed everything looked good. See him again in July. Reports disappointment; haven't been able to do the things he wants to do. Pain low at rest, increases with activity to high level at least 8/10. Doing dishes painful. Sitting in car painful. Usual ADL's painful. Blood pressure under control. Trying to go for walks but very limited distance due to pain. Hasn't been able to do other exercises. States he recently helped a neighbor with tiling his floor because he needed money. Wearing back brace most of the time when up; extends into thoracic spine in back. Rheumatology referral but hasn 't gone yet. Patient states he injured his right foot/ ankle while in hospital for surgery when he was assisted up in bed. Has been using heat for some pain control. Denies N/T in LE's. 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 Prior Treatments and Tests Procedure: 1. L2-3, L5-S1 posterolateral and posterior interbody fusion 2. L2-3, L5-S1 posterior interbody cage placement 3. L3-4. L4-5 posterior segmental instrumentation removal 4. L3-4, L4-5 revision laminectomy with exploration of fusion 5. L2-3, L3-4, L4-5, L5-S1 posterior segmental instrumentation with pedicle screw placement 6. L4-5 posterolatearl fusion 7. [place] of bone marrow from iliac crest through a separate incision 8. Utilization of microsurgical technique and operating microscope CT after surgery normal post- op changes. Wearing LSO brace. Future Testing and Treatments Planned Aquatic PT and land-based PT recommended, aquatic PT not open at this time due to Covid19; not opening until Phase 3 in [facility]. Treatment Goals Patient/Caregiver Goals Resume being able to take usual walks and do usual activities without pain. [facility] goal is to be able to kayak again. PT-OP-C Subjective Start: 05/17/20 08:18 Freq: Status: Active Protocol: Document 09/08/20 08:13 [facility] (Rec: 09/08/20 08:59 [facility] [id number]) OP-PT Subjective Patient Comments Patient Comments Staill waiting to get MRI results from Dr. Cain. Patient wearing walking boot, using 1 crutch. PT-OP-G Mobility & Gait Start: 05/17/20 08:18 Freq: Status: Active Protocol: Document 05/17/20 08:58 [facility] (Rec: 05/17/20 17:00 [facility] [id number]) OP Mobility Evaluation Bed Mobility Rolling indep Supine to and from Sit indep with log roll Transfers Sit to Stand independent with use of hands OP Gait Assessment Gait Gait Assistance Required: Independent Distance (Feet) 100 Assistive Devices Assistive Device None Gait Deviations General Gait Pattern Antalgic,Decreased Stride Length,Decreased Feet Clearance,Flexed Trunk Factors Limiting Gait Function Factors Limiting Gait Function Decreased Activity Tolerance, Decreased Strength,Pain PT-OP-J Posture/Palpation/Skin Start: 05/17/20 08:18 Freq: Status: Active Protocol: Document 05/17/20 08:58 [facility] (Rec: 05/17/20 17:00 [facility] [id number]) Posture Evaluation Position Sitting Head/C-Spine Posture Forward Head T-Spine Posture Increased Kyphosis L-Spine Posture Flattened Shoulder Posture (L) Rounded,(R) Rounded Scapula Posture (L) Protracted,(R) Protracted Palpation Assessment Location cervical spine Palpation Location bilateral lumbar spine Palpation Findings Muscle Guarding,Tenderness Skin Assessment Incisional Assessment Incision Appearance/Comments well healed, no signs of symptoms of infection, good scar mobility PT-OP-K Range of Motion Start: 05/17/20 08:18 Freq: Status: Active Protocol: Document 05/17/20 08:58 [facility] (Rec: 05/17/20 17:00 [facility] [id number]) Lumbar Spine Range of Motion Lumbar Spine Active Comments deferred to do spinal precautions, high pain level Hip Goniometric Range of Motion Hip coleen Hip ROM WFL No Testing Position Supine Straight Leg Raise 55 Extension 0 Internal Rotation 25 External Rotation 60 Hip ROM Limitations Hip ROM Limitations Soft Tissue Tightness Knee Goniometric Range of Motion Knee coleen Knee ROM WFL Yes Ankle and Foot Goniometric Range of Motion Ankle and Foot coleen Ankle/Foot ROM WFL Yes PT-OP-L Special Tests Start: 05/17/20 08:18 Freq: Status: Active Protocol: Document 05/17/20 08:58 [facility] (Rec: 05/17/20 17:00 [facility] [id number]) Special Tests Lumbar Spine Special Tests Straight Leg Raise Comments unable, painful PT-OP-M Strength Start: 05/17/20 08:18 Freq: Status: Active Protocol: Document 05/17/20 08:58 [facility] (Rec: 05/17/20 17:00 [facility] [id number]) Hip Strength Hip Manual Muscle Testing coleen Comments deferred due to high pain level Knee Strength Knee Manual Muscle Testing coleen Flexion (S2) 4 Good Extension (L3) 4 Good Ankle/Foot Strength Ankle and Foot Manual Muscle Testing Right Dorsiflexion (L4) 4- Good- Plantarflexion (S1) 4- Good- Comments painful Left Dorsiflexion (L4) 4+ Good+ Plantarflexion (S1) 4+ Good+ Toe Strength Toe Manual Muscle Testing Right Great Toe Flexion 4- Good- Extension 4- Good- Left Great Toe Flexion 5 Normal Extension 5 Normal PT-OP-Q Treatments Start: 05/17/20 08:18 Freq: Status: Active Protocol: Document 09/08/20 08:13 [facility] (Rec: 09/08/20 08:59 [facility] [id number]) Cardio Equipment Upper Body Ergometer (UBE) Duration (Minutes) 10 RPM 60 Seat Position 10 Height 3 Therapeutic Exercises Supine Exercises hip flexor stretch Reps/Minutes 2x 30 bridge Reps/Minutes 10x2 Comments knees on foam roller SLR Resistance 2# left, walking boot right Reps/Minutes 6 x 2 Comments cues on engagement of abdominals, bend knee as needed pec stretch Reps/Minutes 2x30 Sitting Exercises sh ER with ball squeeze Resistance L2 TB, ball Reps/Minutes 10x crunch Sitting Exercise Name seated lean back Comments with neutral spine, hip hinge, ball between knees LAQ Reps/Minutes 10x2 Comments With roll under knees, small bridge to neutral spine pull down Sitting Exercise Name facing away from bands Resistance L2 TB Reps/Minutes 10x hip ab/ER Resistance L2 TB Reps/Minutes 10x shoulder extension Resistance L2 TB Reps/Minutes 10x2 Comments with ball squeeze row Resistance L2 TB Reps/Minutes 10x2 Comments lo and hi rows PT-OP-R Modalities Start: 05/17/20 08:18 Freq: Status: Active Protocol: Document 09/08/20 08:13 [facility] (Rec: 09/08/20 08:59 [facility] [id number]) Hot Pack/Cold Pack Treatment right foot/ankle Patient Position Hooklying Treatment Duration (minutes) 10 Comments cryocuff lumbar spine Patient Position Hooklying Treatment Duration (minutes) 15 Patient Tolerance Good Comments hot pack PT-OP-T Assessment and Plan Start: 05/17/20 08:18 Freq: Status: Active Protocol: Document 09/08/20 08:13 [facility] (Rec: 09/08/20 08:59 [facility] [id number]) Physical Therapy Assessment Goals Six Impairment balance dysfunction SLS 4 sec, tandem 12sesc Wire Winder Goal (LTG) Patient will improve SLS to 10 sec coleen and tandem stand to at least 20 sec to improve safety witn mobility Five Impairment QuickDash UE disability index score 95% Short Term Goal (STG) Decrease Quickdash UE disability index score to no greater than 60% 07/30/19: good goal progress STG Duration MET Snf Goal (LTG) Decrease Quickdash UE disability index score to no greater than 30% including able to reach overhead and behind his back for ADL's and usual daily activities without difficulty 07/30/19: good goal progress 08/11/20: decreased to 43%. LTG Duration 08/28/19 Four Impairment Decreased flexibility in bilateral hips Wire Winder Goal (LTG) Improve PSLR to at least 75 degrees, hip ER to 70 and hip IR to 45 to improve overall function 07/12/20: good goal progress 08/11/20: PSLR increased to 65, ER to 60, IR to 30. LTG Duration 09/10/20 Three Impairment LBP 06/20 Short Term Goal (STG) Decrease LBP to no greater than 5/10 with usual ADL's in the home 07/12/20 good goal progress STG Duration goal met 08/11/20 Snf Goal (LTG) Decrease LBP to no greater than 3/10 with usual activities including walks with his dog of at least 1 mile 08/11/20: currently 3/10, occasional exacerbation with walks but patient reports improving. LTG Duration 09/10/20 Two Impairment decreased activity tolerance Oswestry 58% Short Term Goal (STG) Decrease Oswestry Score to no greater than 45% 07/12/20: good goal progress STG Duration goal met 08/11/20 Wire Winder Goal (LTG) Improve activity tolerance as evidenced by a decrease Oswestry Score to no greater than25% 08/11/20: good progress, decreased to 26% LTG Duration 09/10/20 One Impairment weakness LE's and core Short Term Goal (STG) Patient able to tolerate 45 min land-based exercises for the purpose of strengthening and core stabilization without an increase in pain or c/o excess fatigue 07/12/20: good goal progress STG Duration goal met 08/11/20 Wire Winder Goal (LTG) Patient to be independent and compliant with HEP and aquatic exercise program for the purposes of fci fitness and 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 08/11/20: continue to progress HEP, unable to do aquatic therapy due to pandemic. LTG Duration 09/10/20 Assessment Summary Assessment Good tolerance for core ex modified due to foot injury. Updated HEP handout. Rready for discharge from PT for low back. Anticipate PT for foot/ ankle soon. Physical Therapy Plan Frequency and Duration Frequency of Treatment 2x/Week Duration of Treatment 4 weeks. Plan of Care Start Date 08/11/20 Plan of Care End Date 09/10/20 Therapeutic Interventions Therapeutic Interventions Aquatic Therapy,Home Exercise Program,Manual Therapy, Neuromuscular Re-education, Patient/Caregiver Education, Self-Care/Home Management,Soft Tissue Mobilization,Taping, Therapeutic Activities, Therapeutic Exercises Modalities Cold Pack/Ice Massage,Electric Stimulation,Hot Packs Discharge Physical Therapy Discharge Reasons Goals Met
--- NOTE | 2020-09-08 14:20 | PT.OTN ---
Current Diagnoses Post-traumatic osteoarthritis, right ankle and foot (09/08/20) Other spondylosis with radiculopathy, lumbosacral region (09/08/20) Spinal stenosis, lumbar region without neurogenic claudication (09/08/20) Abnormal posture (09/08/20) Weakness (09/08/20) Physical Therapy Treatment Note PT-OP-A Visit Information Start: 05/17/20 08:18 Freq: Status: Active Protocol: Document 09/08/20 08:13 [facility] (Rec: 09/08/20 08:59 [facility] [id number]) Out-Patient Physical Therapy Visit Information Visit Information Visit Type Treatment Note Visit Start Time 08:15 Visit Stop Time 09:13 Total Visit Minutes 58 Visit Number 20 Evaluation Information Evaluation Date 05/17/20 Precautions Precautions PMH: peripheral neuropathy, RA , HTN, DM, anxiety, chronic back pain, depression, memory dysfunction PT-OP-B Current Condition Start: 05/17/20 08:18 Freq: Status: Active Protocol: Document 05/17/20 08:58 [facility] (Rec: 05/17/20 09:42 [facility] [id number]) Current Condition History of Current Condition Onset Date 01/06/20 Current Complaints Perisistent, function-limiting LBP s/p surgeryt. History of Current Condition Extensive lumbar surgery with fusion, required 2 transfusions of blood during recovery. 4 days in hospital, discharged home with home health. To ER 2x due to severe pain. Had seroma drained. Saw Dr. Cain 1 week ago, CT showed everything looked good. See him again in July. Reports disappointment; haven't been able to do the things he wants to do. Pain low at rest, increases with activity to high level at least 8/10. Doing dishes painful. Sitting in car painful. Usual ADL's painful. Blood pressure under control. Trying to go for walks but very limited distance due to pain. Hasn't been able to do other exercises. States he recently helped a neighbor with tiling his floor because he needed money. Wearing back brace most of the time when up; extends into thoracic spine in back. Rheumatology referral but hasn 't gone yet. Patient states he injured his right foot/ ankle while in hospital for surgery when he was assisted up in bed. Has been using heat for some pain control. Denies N/T in LE's. 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 Prior Treatments and Tests Procedure: 1. L2-3, L5-S1 posterolateral and posterior interbody fusion 2. L2-3, L5-S1 posterior interbody cage placement 3. L3-4. L4-5 posterior segmental instrumentation removal 4. L3-4, L4-5 revision laminectomy with exploration of fusion 5. L2-3, L3-4, L4-5, L5-S1 posterior segmental instrumentation with pedicle screw placement 6. L4-5 posterolatearl fusion 7. [place] of bone marrow from iliac crest through a separate incision 8. Utilization of microsurgical technique and operating microscope CT after surgery normal post- op changes. Wearing LSO brace. Future Testing and Treatments Planned Aquatic PT and land-based PT recommended, aquatic PT not open at this time due to Covid19; not opening until Phase 3 in [facility]. Treatment Goals Patient/Caregiver Goals Resume being able to take usual walks and do usual activities without pain. longterm goal is to be able to kayak again. PT-OP-C Subjective Start: 05/17/20 08:18 Freq: Status: Active Protocol: Document 09/08/20 08:13 [facility] (Rec: 09/08/20 08:59 [facility] [id number]) OP-PT Subjective Patient Comments Patient Comments Staill waiting to get MRI results from Dr. Cain. Patient wearing walking boot, using 1 crutch. PT-OP-G Mobility & Gait Start: 05/17/20 08:18 Freq: Status: Active Protocol: Document 05/17/20 08:58 [facility] (Rec: 05/17/20 17:00 [facility] [id number]) OP Mobility Evaluation Bed Mobility Rolling indep Supine to and from Sit indep with log roll Transfers Sit to Stand independent with use of hands OP Gait Assessment Gait Gait Assistance Required: Independent Distance (Feet) 100 Assistive Devices Assistive Device None Gait Deviations General Gait Pattern Antalgic,Decreased Stride Length,Decreased Feet Clearance,Flexed Trunk Factors Limiting Gait Function Factors Limiting Gait Function Decreased Activity Tolerance, Decreased Strength,Pain PT-OP-J Posture/Palpation/Skin Start: 05/17/20 08:18 Freq: Status: Active Protocol: Document 05/17/20 08:58 [facility] (Rec: 05/17/20 17:00 [facility] [id number]) Posture Evaluation Position Sitting Head/C-Spine Posture Forward Head T-Spine Posture Increased Kyphosis L-Spine Posture Flattened Shoulder Posture (L) Rounded,(R) Rounded Scapula Posture (L) Protracted,(R) Protracted Palpation Assessment Location cervical spine Palpation Location bilateral lumbar spine Palpation Findings Muscle Guarding,Tenderness Skin Assessment Incisional Assessment Incision Appearance/Comments well healed, no signs of symptoms of infection, good scar mobility PT-OP-K Range of Motion Start: 05/17/20 08:18 Freq: Status: Active Protocol: Document 05/17/20 08:58 [facility] (Rec: 05/17/20 17:00 [facility] [id number]) Lumbar Spine Range of Motion Lumbar Spine Active Comments deferred to do spinal precautions, high pain level Hip Goniometric Range of Motion Hip coleen Hip ROM WFL No Testing Position Supine Straight Leg Raise 55 Extension 0 Internal Rotation 25 External Rotation 60 Hip ROM Limitations Hip ROM Limitations Soft Tissue Tightness Knee Goniometric Range of Motion Knee coleen Knee ROM WFL Yes Ankle and Foot Goniometric Range of Motion Ankle and Foot coleen Ankle/Foot ROM WFL Yes PT-OP-L Special Tests Start: 05/17/20 08:18 Freq: Status: Active Protocol: Document 05/17/20 08:58 [facility] (Rec: 05/17/20 17:00 [facility] [id number]) Special Tests Lumbar Spine Special Tests Straight Leg Raise Comments unable, painful PT-OP-M Strength Start: 05/17/20 08:18 Freq: Status: Active Protocol: Document 05/17/20 08:58 [facility] (Rec: 05/17/20 17:00 [facility] [id number]) Hip Strength Hip Manual Muscle Testing coleen Comments deferred due to high pain level Knee Strength Knee Manual Muscle Testing coleen Flexion (S2) 4 Good Extension (L3) 4 Good Ankle/Foot Strength Ankle and Foot Manual Muscle Testing Right Dorsiflexion (L4) 4- Good- Plantarflexion (S1) 4- Good- Comments painful Left Dorsiflexion (L4) 4+ Good+ Plantarflexion (S1) 4+ Good+ Toe Strength Toe Manual Muscle Testing Right Great Toe Flexion 4- Good- Extension 4- Good- Left Great Toe Flexion 5 Normal Extension 5 Normal PT-OP-Q Treatments Start: 05/17/20 08:18 Freq: Status: Active Protocol: Document 09/08/20 08:13 [facility] (Rec: 09/08/20 08:59 [facility] [id number]) Cardio Equipment Upper Body Ergometer (UBE) Duration (Minutes) 10 RPM 60 Seat Position 10 Height 3 Therapeutic Exercises Supine Exercises hip flexor stretch Reps/Minutes 2x 30 bridge Reps/Minutes 10x2 Comments knees on foam roller SLR Resistance 2# left, walking boot right Reps/Minutes 6 x 2 Comments cues on engagement of abdominals, bend knee as needed pec stretch Reps/Minutes 2x30 Sitting Exercises sh ER with ball squeeze Resistance L2 TB, ball Reps/Minutes 10x crunch Sitting Exercise Name seated lean back Comments with neutral spine, hip hinge, ball between knees LAQ Reps/Minutes 10x2 Comments With roll under knees, small bridge to neutral spine pull down Sitting Exercise Name facing away from bands Resistance L2 TB Reps/Minutes 10x hip ab/ER Resistance L2 TB Reps/Minutes 10x shoulder extension Resistance L2 TB Reps/Minutes 10x2 Comments with ball squeeze row Resistance L2 TB Reps/Minutes 10x2 Comments lo and hi rows PT-OP-R Modalities Start: 05/17/20 08:18 Freq: Status: Active Protocol: Document 09/08/20 08:13 [facility] (Rec: 09/08/20 08:59 [facility] [id number]) Hot Pack/Cold Pack Treatment right foot/ankle Patient Position Hooklying Treatment Duration (minutes) 10 Comments cryocuff lumbar spine Patient Position Hooklying Treatment Duration (minutes) 15 Patient Tolerance Good Comments hot pack PT-OP-T Assessment and Plan Start: 05/17/20 08:18 Freq: Status: Active Protocol: Document 09/08/20 08:13 [facility] (Rec: 09/08/20 08:59 [facility] [id number]) Physical Therapy Assessment Goals Six Impairment balance dysfunction SLS 4 sec, tandem 12sesc Infusion Nurse Goal (LTG) Patient will improve SLS to 10 sec coleen and tandem stand to at least 20 sec to improve safety witn mobility LTG Duration goal abandoned due to foot/ ankle injury Five Impairment QuickDash UE disability index score 95% Short Term Goal (STG) Decrease Quickdash UE disability index score to no greater than 60% 07/30/19: good goal progress STG Duration MET Infusion Nurse Goal (LTG) Decrease Quickdash UE disability index score to no greater than 30% including able to reach overhead and behind his back for ADL's and usual daily activities without difficulty 07/30/19: good goal progress 08/11/20: decreased to 43%. LTG Duration Goal met Four Impairment Decreased flexibility in bilateral hips Residential Goal (LTG) Improve PSLR to at least 75 degrees, hip ER to 70 and hip IR to 45 to improve overall function 07/12/20: good goal progress 08/11/20: PSLR increased to 65, ER to 60, IR to 30. LTG Duration Goal met Three Impairment LBP 06/20 Short Term Goal (STG) Decrease LBP to no greater than 5/10 with usual ADL's in the home 07/12/20 good goal progress STG Duration goal met 08/11/20 Residential Goal (LTG) Decrease LBP to no greater than 3/10 with usual activities including walks with his dog of at least 1 mile 08/11/20: currently 3/10, occasional exacerbation with walks but patient reports improving. LTG Duration goal met Two Impairment decreased activity tolerance Oswestry 58% Short Term Goal (STG) Decrease Oswestry Score to no greater than 45% 07/12/20: good goal progress STG Duration goal met 08/11/20 Infusion Nurse Goal (LTG) Improve activity tolerance as evidenced by a decrease Oswestry Score to no greater than25% 08/11/20: good progress, decreased to 26% LTG Duration goal met One Impairment weakness LE's and core Short Term Goal (STG) Patient able to tolerate 45 min land-based exercises for the purpose of strengthening and core stabilization without an increase in pain or c/o excess fatigue 07/12/20: good goal progress STG Duration goal met 08/11/20 Infusion Nurse Goal (LTG) Patient to be independent and compliant with HEP and aquatic exercise program for the purposes of technician terminal and repeater fitness and 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 08/11/20: continue to progress HEP, unable to do aquatic therapy due to pandemic. LTG Duration goal met except no aquatic PT available. Assessment Summary Assessment Good tolerance for core ex modified due to foot injury. Updated HEP handout. Rready for discharge from PT for low back. Anticipate PT for foot/ ankle soon. Physical Therapy Plan Frequency and Duration Frequency of Treatment 2x/Week Duration of Treatment 4 weeks. Plan of Care Start Date 08/11/20 Plan of Care End Date 10/31/20 Therapeutic Interventions Therapeutic Interventions Aquatic Therapy,Home Exercise Program,Manual Therapy, Neuromuscular Re-education, Patient/Caregiver Education, Self-Care/Home Management,Soft Tissue Mobilization,Taping, Therapeutic Activities, Therapeutic Exercises Modalities Cold Pack/Ice Massage,Electric Stimulation,Hot Packs Discharge Physical Therapy Discharge Reasons Goals Met
== END 2020-09-23 13:18 | disposition home or self-care (01) ==
LOC: PHYS 08:15
PROVIDERS: PCP Family Medicine; Referring Provider Orthopaedic Surgery Orthopaedic Surgery of the Spine; Visit Provider Orthopaedic Surgery Orthopaedic Surgery of the Spine
DX: M47.27 Other spondylosis with radiculopathy, lumbosacral region (principal); M19.171 Post-traumatic osteoarthritis, right ankle and foot; M48.061 Spinal stenosis, lumbar region without neurogenic claudication; R53.1 Weakness; R29.3 Abnormal posture
CPT/HCPCS: 97010; 97110; 97112; 97140; 97162; 97535

== ENCOUNTER 2020-09-20 10:47 | Emergency (ER) | payer MEDICARE, OTHER, SELFPAY ==
[2020-01-06 18:24] VITALS: BMI 23.6
[2020-09-20] VITALS (10 sets, daily range): BP systolic 129–162; BP diastolic 62–83; PULSE 52–87; RESP 16; TEMP 37; O2SAT 96–99; BMI 23.7
--- NOTE | 2020-09-20 11:06 | ED.LOWEXIN ---
HPI - Extremity Injury (Lower) General Chief Complaint: Extremity Injury, Lower Stated Complaint: BLOOD INFECTION Time Seen by Provider: 09/20/20 10:54 Source: patient Mode of arrival: Wheelchair Limitations: no limitations History of Present Illness HPI Narrative: 69-year-old male with multiple chronic orthopedic issues was sent over from his primary doctor's office for potential concern of a cellulitis/septic joint of his right knee. Patient states that for the past several days he has had increasing pain in his right knee. He went to his primary doctor today for an evaluation. He was stated that his knee was warm and tender and red and there was concern for an infection so he was sent to the emergency department for further evaluation. Patient states that his knee does hurt. He has had a prior medial compartment replacement. Also has had issues with his right ankle in no seem to be baseline for him. He also has left wrist issues and neck issues which are baseline for him as well. No fevers. No new traumas. Related Data Home Medications Medication Instructions Recorded Confirmed Glucose: Test Strips 1 strip MISCELLANEOUS DIRECTED 04/29/18 09/20/20 atorvastatin 20 mg tablet 20 mg PO DAILY 04/03/19 09/20/20 metoprolol succinate 100 mg 50 mg PO BID tab 04/03/19 09/20/20 tablet,extended release 24 hr aspirin 81 mg tablet,delayed 81 mg PO DAILY 05/20/20 09/20/20 release Previous Rx's Medication Instructions Recorded oxybutynin chloride 15 mg See Rx Instructions .ROUTE 12/07/19 tablet,extended release 24 hr .COMPLEX #90 tablet acetaminophen 975 mg PO TID #40 tab 01/08/20 hydroxyzine pamoate 25 mg PO Q4HR PRN #20 cap 01/10/20 lidocaine 1 patch TOP DAILY #30 each 02/10/20 amlodipine 10 mg tablet See Rx Instructions .ROUTE 06/08/20 .COMPLEX #90 tablet glipizide 5 mg tablet See Rx Instructions .ROUTE 06/08/20 .COMPLEX #90 tablet isosorbide mononitrate 60 mg See Rx Instructions .ROUTE 06/08/20 tablet,extended release 24 hr .COMPLEX #90 tablet gabapentin 600 mg tablet See Rx Instructions .ROUTE 07/04/20 .COMPLEX #540 tab tadalafil 10 mg tablet 10 mg PO DAILY PRN #15 tab 08/16/20 hydrocodone-acetaminophen [Parksley] 1 tab PO Q8H PRN #14 tab 08/23/20 ondansetron 4 mg PO Q8H PRN #10 tab 08/23/20 cyclobenzaprine 10 mg tablet 10 mg PO BID PRN #60 tab 08/24/20 duloxetine 30 mg capsule,delayed See Rx Instructions .ROUTE 08/25/20 release .COMPLEX #90 capsule tamsulosin 0.4 mg capsule 0.8 mg PO QPM #90 cap 08/25/20 cephalexin [Keflex] 500 mg PO QID 7 Days #28 cap 09/20/20 Allergies Allergy/AdvReac Type Severity Reaction Status Date / Time latex Allergy Mild RASH/ITCH Verified 09/20/20 10:00 (tape) pollen extracts Allergy Mild SINUS AND Verified 09/20/20 10:00 [POLLEN EXTRACTS] CHEST CONGESTION adhesive tape [ADHESIVE TAPE] AdvReac Unknown ITCHY Verified 09/20/20 10:00 Review of Systems Constitutional Constitutional: Denies fever(s) ENT Ears, Nose, Mouth, and Throat: Denies vertigo, Denies dizziness and Denies disequilibrium Cardiovascular Cardiovascular: Denies chest pain and Denies dyspnea Respiratory Respiratory: Denies dyspnea Gastrointestinal Gastrointestinal: Denies abdominal pain Musculoskeletal Comments: Right knee pain Integumentary/Breasts Comments: Redness the right knee Neurologic Neurologic: Denies confusion, Denies vertigo, Denies dizziness and Denies disequilibrium Psychiatric Psychiatric: Denies confusion Hematologic/Lymphatic Hematologic/Lymphatic: Denies easy bleeding and Denies easy bruising Allergic/Immunologic Allergic/Immunologic: Denies urticaria Patient History Medical History Acute ankle pain (Acute) Ankle fracture (Acute) Anxiety (Chronic Unknown) Aortic stenosis (Chronic) Ascending aorta dilatation (Acute) Bilateral carotid artery disease (Acute ~09/2018) Bilateral carpal tunnel syndrome (Acute) BPH (benign prostatic hyperplasia) (Chronic Unknown) BPH w urinary obs/LUTS (Acute) Cervical somatic dysfunction (Acute) Chronic back pain (Acute) Chronic kidney disease (Acute) Chronic pain syndrome (Chronic Unknown) Chronic renal insufficiency (Chronic Unknown) Coronary artery disease (Suspected Unknown) Depression (Chronic Unknown) Diabetes (Chronic Unknown) Diabetic neuropathy associated with type 2 diabetes mellitus (Acute) Edema of left lower extremity (Acute) Enlarged prostate (Acute) Erectile dysfunction (Acute) Erectile dysfunction (Acute) GERD (gastroesophageal reflux disease) (Chronic Unknown) History of ETOH abuse (Resolved Unknown) Hyperlipemia (Chronic Unknown) Hypertension (Chronic Unknown) Leg cramps, sleep related (Acute) Low back pain (Chronic Unknown) Lumbar back pain with radiculopathy affecting right lower extremity (Acute) Moderate right ankle sprain (Acute) Nonallopathic lesion of lumbar region, not elsewhere classified (Acute) Pancreatitis (Acute) Pelvic somatic dysfunction (Acute) Peripheral neuropathy (Chronic Unknown) Rheumatoid arthritis (Chronic Unknown) Rheumatoid arthritis (Acute) Sacral region somatic dysfunction (Acute) Salivary gland swelling (Acute) Seasonal allergic rhinitis (Acute) Segmental and somatic dysfunction of rib cage (Acute) Seroma after procedure (Acute) Somatic dysfunction of right lower extremity (Acute) Stiff neck (Acute) Urine retention (Acute) Surgical History History of back surgery (Resolved ~2012) History of surgery (Acute) History of surgical removal of skin lesion (Acute) Hx of cholecystectomy (Acute) S/P cervical spinal fusion (Acute) Status post hernia repair Status post knee surgery Vasectomy status (Acute) Family History Mother Stroke Father Cancer Social History household members: none Smoking Status: Former smoker alcohol intake: current Smoking Status: Former smoker alcohol intake frequency: holidays/special occasions only Alcohol type: beer and wine Substance Use Type: marijuana Exam Initial Vital Signs Initial Vital Signs: Vital Signs Temperature 98.6 F 09/20/20 10:56 Pulse Rate 67 09/20/20 10:56 Respiratory Rate 16 09/20/20 10:56 Blood Pressure 129/63 09/20/20 10:56 Pulse Oximetry 98 09/20/20 10:56 Const General: cooperative, comfortable and well developed Limitations: mental status not altered HENMT Head: normal to inspection and normocephalic Resp Effort & Inspection: normal respiratory effort Cardio Rate: regular rate Skin Other: Patient has somewhat dark skin so it is difficult to completely evaluate erythema the right knee however does appear to be more red compared to the left. There are no open sores. Neuro General: patient alert, patient awake and patient oriented x3 Sensory Exam: no sensory deficits noted Extrem Other: Patient has a well-healed surgical scar to his right knee consistent with stated history. Same with his right ankle. The right knee does have an effusion compared to the left. It is tender to palpation and just about every area that I touch to include anterior lateral medial and posterior. He has discomfort with bending his knee secondary to pain. Psych Appearance: grossly normal and well kempt Procedures Joint Aspiration Joint Asp./Inject. 1: Time Out Performed: Yes Side of body: right Joint Aspirated: knee Ultrasound Guidance: No Skin Prep: Povidone-Iodine1% Local Anesthetic: lidocaine 1% and with bicarb Amount of anesthesia used (mL): 3 Needle Size Used: 18G Total fluid obtained (mL): 0 Patient Tolerated Procedure: Well Complications: unable to obtain fluid Course Orders Ordered: ED Orders 09/20/20 11:05 XR knee RT 3V Stat 09/20/20 11:25 Basic Metabolic Panel Stat C-Reactive Protein Quant Stat Complete Blood Count AUTO DIFF Stat Erythrocyte Sedimentation Rate Stat Lactate (Lactic Acid) Stat Procalcitonin Stat Uric Acid Stat 09/20/20 11:39 Blood Culture Stat 09/20/20 13:43 Cell Count w Diff Body Fluid Stat 09/20/20 13:45 Body Fluid Culture Stat 09/20/20 14:20 Consult to Orthopedic Surgery Stat Discontinued Medications Lidocaine/Sodium Bicarbonate (Buffered Lidocaine 10 Ml Syr) 10 ml INJ NOW ONE Stop: 09/20/20 12:42 Last Admin: 09/20/20 12:51 Dose: 10 ml Documented by: WING Vital Signs Vital signs: Vital Signs - 8 hr 09/20/20 10:56 09/20/20 12:51 09/20/20 13:58 Temperature 98.6 F Pulse Rate 67 87 55 L Respiratory Rate 16 16 Blood Pressure 129/63 134/83 Pulse Oximetry 98 99 96 09/20/20 13:59 09/20/20 14:00 09/20/20 14:05 Temperature Pulse Rate 52 L 59 L Respiratory Rate Blood Pressure 130/62 Pulse Oximetry 96 97 09/20/20 14:30 09/20/20 14:31 09/20/20 15:00 Temperature Pulse Rate 53 L 53 L 55 L Respiratory Rate Blood Pressure 162/72 H 141/69 H Pulse Oximetry 97 97 98 09/20/20 18:05 Temperature Pulse Rate 60 Respiratory Rate 16 Blood Pressure 155/72 H Pulse Oximetry 96 MDM - Extremity Injury (Lower) Lab Data Attestation: I reviewed the patient's lab results. Result diagrams: 09/20/20 11:09/20/20 11:25 Labs: Lab Results 09/20/20 09/20/20 09/20/20 Range/Units 11: 11:25 11:25 WBC 6.7 (4.5-11.0) X10^3/uL RBC 3.57 L (4.5-5.9) X10^6/uL Hgb 10.8 L (13.5-17.5) g/dL Hct 32.3 L (41-53) % MCV 90.3 (80-100) fL MCH 30.3 (26-34) PG MCHC 33.5 (30-36) % RDW 13.9 (11.6-14.8) % Plt Count 199 (150-400) X10^3/uL Neut % (Auto) 58.8 (50-75) % Lymph % (Auto) 30.5 (25-40) % [place] % (Auto) 8.1 (3-14) % Eos % (Auto) 2.1 (2-4) % Baso % (Auto) 0.5 (0-2) % Neut # (Auto) 3900 (0141-9781) /uL Lymph # (Auto) 2000 (1156-5294) /uL [place] # (Auto) 500 (0-900) /uL Eos # (Auto) 100 (0-450) /uL Baso # (Auto) 0 (0-100) /uL ESR 58 H (0-15) MM/HR Sodium 135 L (137-145) mmol/L Potassium 4.3 (3.4-5.1) mmol/L Chloride 101 (98-107) mmol/L Carbon Dioxide 28 (22-32) mmol/L BUN 39 H (9-20) mg/dL Creatinine 1.17 (0.66-1.25) mg/dL Estimated GFR > 60.0 (>60) mL/min BUN/Creatinine Ratio 33.3 H (6-22) Glucose 149 H (80-110) mg/dL Lactate (0.7-2.1) mmol/L Uric Acid 8.2 (3.5-8.5) mg/dL Calcium 9.1 (8.4-10.2) mg/dL C-Reactive Protein 5.3 H (<1.0) mg/dL Procalcitonin < 0.05 (<0.5) ng/mL Fluid Color Fluid Appearance Fluid RBC /uL Fld Tot Nucleated Cell /uL Body Fluid Clot 09/20/20 09/20/20 09/20/20 Range/Units 11:25 11:25 13:43 WBC (4.5-11.0) X10^3/uL RBC (4.5-5.9) X10^6/uL Hgb (13.5-17.5) g/dL Hct (41-53) % MCV (80-100) fL MCH (26-34) PG MCHC (30-36) % RDW (11.6-14.8) % Plt Count (150-400) X10^3/uL Neut % (Auto) (50-75) % Lymph % (Auto) (25-40) % [place] % (Auto) (3-14) % Eos % (Auto) (2-4) % Baso % (Auto) (0-2) % Neut # (Auto) (0204-2745) /uL Lymph # (Auto) (2067-3505) /uL [place] # (Auto) (0-900) /uL Eos # (Auto) (0-450) /uL Baso # (Auto) (0-100) /uL ESR (0-15) MM/HR Sodium (137-145) mmol/L Potassium (3.4-5.1) mmol/L Chloride (98-107) mmol/L Carbon Dioxide (22-32) mmol/L BUN (9-20) mg/dL Creatinine (0.66-1.25) mg/dL Estimated GFR (>60) mL/min BUN/Creatinine Ratio (6-22) Glucose (80-110) mg/dL Lactate 0.8 (0.7-2.1) mmol/L Uric Acid Cancelled (3.5-8.5) mg/dL Calcium (8.4-10.2) mg/dL C-Reactive Protein (<1.0) mg/dL Procalcitonin (<0.5) ng/mL Fluid Color Colorless Fluid Appearance Slightly cloudy Fluid RBC 1094 /uL Fld Tot Nucleated Cell 346 /uL Body Fluid Clot No clots present Imaging Data Extremity x-ray #1: Radiologist's Impression: [address] [address] XRay Report Signed Patient: Hector Harper EMR#: [id number] : 2Acct:[id number] Age/Sex: 69 / MDate of Service: 09/20/20 Loc: ED Accession Number: [id number] Procedure: XR knee RT 3V Ordering Provider: Orion Francois D.O. PROCEDURE: XR KNEE RT 3V INDICATIONS: past arthroplasty, possible infection TECHNIQUE: 3 views of the knee were acquired. COMPARISON: None. FINDINGS: Bones: Patient is status post prior medial femoral tibial compartment arthroplasty. Increased lucency along lateral periphery of prosthesis within proximal tibia is seen, loosening or infection cannot be excluded. No other area of abnormal density. No acute fracture or dislocation. No suspicious bony lesions. Soft tissues: No significant joint effusion. Thickened distal quadriceps tendon is. No suspicious soft tissue calcifications. IMPRESSION: 1. Prior medial femoral tibial compartment arthroplasty. Questionable increased lucency along lateral periphery of proximal tibial prosthesis, loosening or infection cannot be excluded. No acute fracture or dislocation. 2. No significant joint effusion. Distal quadriceps tendon thickening and anterior right knee soft tissue swelling. Dictated by: Marek Sands M.D. on 09/20/2020 at 10:34 Approved by: Marek Sands M.D. on 09/20/2020 at 10:37 MDM Narrative Medical decision making narrative: Patient was seen in the emergency department by Dr. López. I was unable to obtain any synovial fluid however his joint was aspirated by Dr. lópez and a small amount of fluid was obtained. It was sent for cell count and culture. There was a delay in getting the results secondary to maintenance on the machine that is needed to run the test results. The patient was kept updated regarding timeframes. I did discuss the results of the synovial fluid with Dr. lópez. He feels that it is unlikely that this is a septic joint. Patient does have a red warm skin over the joint so we will treat him as a cellulitis. Informed the patient he did need to follow-up with orthopedics since there were 2 attempts at obtaining synovial fluid another concern is potentially causing infection of the knee. He was given contact information regarding this. He was given antibiotics. Patient was given return precautions. He expressed understanding and agreement. Discharge Plan Departure Patient Disposition: Home Clinical Impression: Cellulitis Qualifiers: Site of cellulitis: extremity Site of cellulitis of extremity: lower extremity Laterality: right Qualified Code(s): L03.115 - Cellulitis of right lower limb Instructions: Cellulitis Activity Restrictions/Additional Instructions: Recommend you take the antibiotics as directed. Contact your primary provider for follow-up. I did discuss your case today with Dr. López and he did see you in the emergency department. He was the orthopedic surgeon who performed the knee tap. He would like you to contact his office at the [facility] at [phone] for a follow-up. Return to the emergency department for any new or worsening symptoms Prescriptions: New cephalexin [Keflex] 500 mg capsule 500 mg PO QID 7 Days Qty: 28 RF: 0 No Action oxybutynin chloride 15 mg tablet extended release 24hr See Rx Instructions .ROUTE .COMPLEX Qty: 90 RF: 1 aspirin [Adult Aspirin Regimen] 81 mg tablet,delayed release (DR/EC) 81 mg PO DAILY RF: 0 amlodipine 10 mg tablet See Rx Instructions .ROUTE .COMPLEX Qty: 90 RF: 1 isosorbide mononitrate 60 mg tablet extended release 24 hr See Rx Instructions .ROUTE .COMPLEX Qty: 90 RF: 1 glipizide 5 mg tablet See Rx Instructions .ROUTE .COMPLEX Qty: 90 RF: 1 gabapentin 600 mg tablet See Rx Instructions .ROUTE .COMPLEX Qty: 540 RF: 1 tadalafil 10 mg tablet 10 mg PO DAILY PRN (Reason: sexual activity) Qty: 15 RF: 0 tamsulosin 0.4 mg capsule 0.8 mg PO QPM Qty: 90 RF: 1 duloxetine 30 mg capsule,delayed release(DR/EC) See Rx Instructions .ROUTE .COMPLEX Qty: 90 RF: 0 atorvastatin 20 mg tablet 20 mg PO DAILY RF: 0 cyclobenzaprine 10 mg tablet 10 mg PO BID PRN (Reason: muscle spasm) Qty: 60 RF: 0 Glucose: Test Strips 1 strip miscellaneous DIRECTED RF: 0 metoprolol succinate 100 mg tablet extended release 24 hr 50 mg PO BID RF: 0 lidocaine 5 % adhesive patch,medicated 1 patch TOP DAILY Qty: 30 RF: 0 hydrocodone-acetaminophen [Parks[place]] 7.5-325 mg tablet 1 tab PO Q8H PRN (Reason: pain) Qty: 14 RF: 0 ondansetron 4 mg tablet,disintegrating 4 mg PO Q8H PRN (Reason: nausea and vomiting) Qty: 10 RF: 0 acetaminophen 325 mg Tablet 975 mg PO TID Qty: 40 RF: 0 hydroxyzine pamoate 25 mg Capsule 25 mg PO Q4HR PRN (Reason: Nausea And Vomiting) Qty: 20 RF: 0 Referrals: Cesar Bar DO [Primary Care Provider] -
[2020-09-20 11:39] LABS: Add Manual Diff / Slide Review NO; Basophils Absolute Auto 0 /uL (0-100); Basophils Percent Auto 0.5 % (0-2); Eosinophils Absolute Auto 100 /uL (0-450); Eosinophils Percent Auto 2.1 % (2-4); Hematocrit 32.3 % (41-53); Hemoglobin 10.8 g/dL (13.5-17.5); Lymphocytes Absolute Auto 2000 /uL (1100-4500); Lymphocytes Percent Auto 30.5 % (25-40); Mean Corpuscular HGB Conc 33.5 % (30-36); Mean Corpuscular Hemoglobin 30.3 PG (26-34); Mean Corpuscular Volume 90.3 fL (80-100); Monocytes Absolute Auto 500 /uL (0-900); Monocytes Percent Auto 8.1 % (3-14); Neutrophils Absolute Auto 3900 /uL (1500-7000); Neutrophils Percent Auto 58.8 % (50-75); Platelet Count 199 X10^3/uL (150-400); Red Blood Cell Count 3.57 X10^6/uL (4.5-5.9); Red Cell Distribution Width 13.9 % (11.6-14.8); White Blood Cell Count 6.7 X10^3/uL (4.5-11.0)
[2020-09-20 11:46] LABS: Lactate (Lactic Acid) 0.8 mmol/L (0.7-2.1)
[2020-09-20 11:49] LABS: BUN Creatinine Ratio 33.3 (6-22); Blood Urea Nitrogen 39 mg/dL (9-20); C-Reactive Protein Quant 5.3 mg/dL (<1.0); Calcium 9.1 mg/dL (8.4-10.2); Carbon Dioxide 28 mmol/L (22-32); Chloride 101 mmol/L (98-107); Estimated Glomerular Filt Rate > 60.0 mL/min (>60); Glucose 149 mg/dL (80-110); HEMOLYSIS < 15 (0-50); Potassium 4.3 mmol/L (3.4-5.1); Sodium 135 mmol/L (137-145); Uric Acid 8.2 mg/dL (3.5-8.5)
[2020-09-20 12:01] LABS: Procalcitonin < 0.05 ng/mL (<0.5)
[2020-09-20 12:10] LABS: Erythrocyte Sedimentation Rate 58 MM/HR (0-15)
[2020-09-20] MEDS: LIDO 1%/SOD BICARB 8.4% (10ML) 10 ML SYRINGE INJ (12:51)
[2020-09-20 17:38] LABS: Body Fluid Red Blood Cells 1094 /uL; Body Fluid Tot Nucleated Cells 346 /uL
[2020-09-20 17:49] LABS: Body Fluid Appearance SLIGHTLY CLOUDY; Body Fluid Clotted? NO CLOTS PRESENT; Body Fluid Color COLORLESS
[2020-09-20] MEDS: IBUPROFEN 400 MG TABLET 800 MG PO (18:44)
[2020-09-20] MEDS: cephALEXin 250 MG CAPSULE 500 MG PO (18:44)
[2020-09-20 18:52] LABS: Eosinophils Body Fluid 0 %; Mononuclear WBC Body Fluid 82 %; Other Cells Body Fluid 16 %; Polynuclear WBC Body Fluid 2 %
== END 2020-09-20 18:55 | disposition home or self-care (01) ==
PROVIDERS: Emergency Provider Emergency Medicine; Family Provider Family Medicine; PCP Family Medicine
DX: L03.115 Cellulitis of right lower limb (principal)
CPT/HCPCS: 20610; 36415; 73562; 80048; 83605; 84145; 84550; 85025; 85651; 86140; 87040; 87070; 87075; 89051; 99284

== ENCOUNTER 2021-02-01 14:30 | Outpatient (RCR) | payer MEDICARE, OTHER, SELFPAY ==
[2020-01-06 18:24] VITALS: BMI 23.6
--- NOTE | 2020-09-28 15:13 | PT.OIE ---
Current Diagnoses Other chronic pain (09/28/20) Pain in unspecified ankle and joints of unspecified foot (09/28/20) Difficulty in walking, not elsewhere classified (09/28/20) Past Medical History (Last Updated 09/23/20 @ 09:03 by Cesar Bar DO) Acute ankle pain Ankle fracture Anxiety (Unknown) Aortic stenosis Ascending aorta dilatation Bilateral carotid artery disease (~09/2018) Bilateral carpal tunnel syndrome BPH (benign prostatic hyperplasia) (Unknown) BPH w urinary obs/LUTS Cervical somatic dysfunction Chronic back pain Chronic kidney disease Chronic pain syndrome (Unknown) Chronic renal insufficiency (Unknown) Coronary artery disease (Unknown) Depression (Unknown) Diabetes (Unknown) Diabetic neuropathy associated with type 2 diabetes mellitus Edema of left lower extremity Enlarged prostate Erectile dysfunction Erectile dysfunction GERD (gastroesophageal reflux disease) (Unknown) History of ETOH abuse (Unknown) Hyperlipemia (Unknown) Hypertension (Unknown) Leg cramps, sleep related Low back pain (Unknown) Lumbar back pain with radiculopathy affecting right lower extremity Moderate right ankle sprain Nonallopathic lesion of lumbar region, not elsewhere classified Pain in knee region after replacement of knee joint Pancreatitis Pelvic somatic dysfunction Peripheral neuropathy (Unknown) Rheumatoid arthritis (Unknown) Rheumatoid arthritis Sacral region somatic dysfunction Salivary gland swelling Seasonal allergic rhinitis Segmental and somatic dysfunction of abdomen and other regions Segmental and somatic dysfunction of rib cage Seroma after procedure Somatic dysfunction of lower extremity Somatic dysfunction of right lower extremity Stiff neck Swelling of knee joint, right Urine retention Past Surgical History (Last Reviewed 08/23/20 @ 09:13 by Ray Bruno MD) History of back surgery (~2012) History of surgery History of surgical removal of skin lesion Hx of cholecystectomy S/P cervical spinal fusion Status post hernia repair Status post knee surgery Vasectomy status Visit Care Team Role Provider Type Cesar Bar DO Attending Provider Physician Family Provider Primary Care Provider Referring Provider Specialty: Family Practice Address: [address] [place] [address], [facility] Email: Physical Therapy Initial Evaluation PT-OP-A Visit Information Start: 09/28/20 08:18 Freq: Status: Active Protocol: Document 09/28/20 09:01 [facility] (Rec: 09/28/20 09:54 [facility] [id number]) Out-Patient Physical Therapy Visit Information Visit Information Visit Type Initial Evaluation Visit Start Time 09:00 Visit Stop Time 10:05 Total Visit Minutes 65 Visit Number 1 Evaluation Information Evaluation Date 09/28/20 Precautions Precautions PMH: prior right distal tib/ fib fracture with ORIF, partial right TKA, carpal tunnel, lumbar surgery, cervical surgery, cellulitis right knee PT-OP-B Current Condition Start: 09/28/20 08:18 Freq: Status: Active Protocol: Document 09/28/20 09:01 [facility] (Rec: 09/28/20 09:54 [facility] [id number]) Current Condition History of Current Condition Onset Date 3 months Current Complaints acute onset right foot and ankle History of Current Condition No known cause for onset pain, using axillary crutches, has had to severely limit his activity. Patient has complicated medical history with neck surgery, back surgery, carpal tunnel syndrome, right knee pain. Was being seen for rehab of lumbar spine surgery recently, completed that rehab but has had this ongoing right ankle/ foot pain. Physician hasn't reviewed his MRI of his foot taken one month ago because when seen last week having severe right knee pain and went to ER. Diagnosed with cellulitis, finishing antibiotics today, pain decreased but persists. Prior distal tib/fib fracture requiring ORIF right ankle 1994. Prior Treatments and Tests MRI 09/05/20: posterior tibialis tendinosis, sinus tarsi syndrome Treatment Goals Patient/Caregiver Goals Decrease pain and swelling and be able to ambulate without assitive devicde Prior Functional Status Baseline Function- ADL's Independent Baseline Function- Mobility Independent Baseline Function- Gait independent no device Baseline Function- Recreation/Hobbies going to the beach with dog for walks, fishing Current Functional Impairments (Reported) Functional Limitations- ADL's has to use crutches Functional Limitations- Mobility/Gait limited due to use of crutches Functional Limitations- Work/School retired/disabled Functional Limitations- Recreation/ unable to take walks or go Hobbies fishing due to ankle dysfunction Personal Factors Other Personal Factors That May Effect multiple comorbidities Therapy/Recovery PT-OP-C Subjective Start: 09/28/20 08:18 Freq: Status: Active Protocol: Document 09/28/20 09:01 [facility] (Rec: 09/28/20 09:54 [facility] [id number]) OP-PT Pain Assessment Location foot and ankle Pain Location Details right Intensity 6 Scale Used Numeric (0 - 10) Description Aching,Burning,Pressure,With Movement Frequency Frequent Pain Aggravating Factors Changing Position,Standing, Walking Pain Alleviating Factors None Other Pain Alleviating Factors dry needling by Dr. Bar Pain Behaviors Pain Behaviors Facial Grimacing,Guarding, Wincing PT-OP-F Manual Assessment Start: 09/28/20 08:18 Freq: Status: Active Protocol: Document 09/28/20 09:01 [facility] (Rec: 09/28/20 12:57 [facility] [id number]) Manual Assessments Joint Mobility Assessment Joint Mobility Assessment unable to assess due to high pain level PT-OP-G Mobility & Gait Start: 09/28/20 08:18 Freq: Status: Active Protocol: Document 09/28/20 09:01 [facility] (Rec: 09/28/20 12:57 [facility] [id number]) OP Gait Assessment Gait Gait Assistance Required: Independent Assistive Devices Assistive Device Axillary Crutches Gait Deviations General Gait Pattern Within Normal Limits Factors Limiting Gait Function Factors Limiting Gait Function Pain PT-OP-H Neuro Start: 09/28/20 08:18 Freq: Status: Active Protocol: Document 09/28/20 09:01 [facility] (Rec: 09/28/20 12:57 [facility] [id number]) Sensation Evaluation Gross Sensation Gross Sensation WNL PT-OP-J Posture/Palpation/Skin Start: 09/28/20 08:18 Freq: Status: Active Protocol: Document 09/28/20 09:01 [facility] (Rec: 09/28/20 12:57 [facility] [id number]) Skin Assessment Edema Assessment right foot and ankle Edema Type Pitting Edema Degree 3+ Edema Appearance Taut Subjective Edema Description Pain,Tightness Circumference Measurement 4 Location 10 cm proximal malleoli Comments left 24.8, right 27.1 3 Location 5 cm proximal malleoli Comments left 23.3, right 25.2 2 Location malleolar Comments left 28.0, right 34.2 1 Location midfoot Comments left 24.4, right 24.8 PT-OP-K Range of Motion Start: 09/28/20 08:18 Freq: Status: Active Protocol: Document 09/28/20 09:01 [facility] (Rec: 09/28/20 12:57 [facility] [id number]) Knee Goniometric Range of Motion Knee coleen Knee ROM WFL Yes Ankle and Foot Goniometric Range of Motion Ankle and Foot Right Ankle/Foot ROM WFL No Testing Position Sitting Dorsiflexion with Knee Flexed 0 Plantarflexion 35 Inversion 25 Eversion 30 Left Ankle/Foot ROM WFL Yes Ankle and Foot ROM Limitations ROM Limitations Pain,Swelling PT-OP-M Strength Start: 09/28/20 08:18 Freq: Status: Active Protocol: Document 09/28/20 09:01 [facility] (Rec: 09/28/20 12:57 [facility] [id number]) Ankle/Foot Strength Ankle and Foot Manual Muscle Testing Left Dorsiflexion (L4) 5 Normal Plantarflexion (S1) 5 Normal Inversion 5 Normal Eversion (S1) 5 Normal Right Comments not tested due to pain PT-OP-Q Treatments Start: 09/28/20 08:18 Freq: Status: Active Protocol: Document 09/28/20 09:01 [facility] (Rec: 09/28/20 10:28 [facility] [id number]) Manual Therapy Treatment Taping 2 Body Location right foot and ankle Treatment Focus pain reduction, edema reduction, inhibition of posterior tibialis, arch sup Type of Tape Kinesio Tape Comments 2 fan strips for redema reduction, 1 Y strip for posterior tibialis inhibition, 1 I strip for arch support Self-Care/Home Management Treatment Education Patient Education Pain Management Other Education edema management; ice, elevate , don't fold socks over as they were today, wear compression stockings (patient has) Lymphedema Treatment Manual Lymphatic Drainage Location right ankle Duration 5 min Comments for edema reduction PT-OP-R Modalities Start: 09/28/20 08:18 Freq: Status: Active Protocol: Document 09/28/20 09:01 [facility] (Rec: 09/28/20 10:28 [facility] [id number]) Electric Stimulation Electric Stimulation IFC Body Location right foot/ankle Duration (Minutes) 10 Intensity 65 Target/Sweep Sweep High/Low High Patient Position Hooklying Combined With Heat/Cold Cold Pack Comments cryocuff PT-OP-T Assessment and Plan Start: 09/28/20 08:18 Freq: Status: Active Protocol: Document 09/28/20 09:01 [facility] (Rec: 09/28/20 10:28 [facility] [id number]) Physical Therapy Assessment Rehab Potential Rehabilitation Potential Good Evaluation Complexity Number of Personal Factors/Comorbidities 3 or More Number of Body Systems Impaired 4 or More Clinical Presentation at Evaluation Evolving Impairments Impairments Edema,Functional Activities, Gait,Pain Goals Three Impairment gait dysfunction; requires use of crutches, unable to tolerate wt.-bearing Short Term Goal (STG) Decrease pain sufficient to allow patient to ambulate with full weight-bearing for short houshold distances with no increase in pain and no limp STG Duration 11/25/20 Longterm Goal (LTG) Patient able to ambulate without assistive device all usual distances without an increase in pain and no limp LTG Duration 01/06/21 Two Impairment moderate edema right foot/ ankle Short Term Goal (STG) Decrease edema right foot and ankle by at least 2 cm circumferential measurements STG Duration 10/30/20 Ergonomics Consultant Goal (LTG) Decrease swelling right foot and ankle to mild, with patient to demonstrate appropriate self-management to include elevation, ice, and use of compression. LTG Duration 01/06/21 One Impairment pain right foot/ankle 6/10 Short Term Goal (STG) Decrease pain to no greater than 4/10 right foot/ankle Longterm Goal (LTG) Patient able to tolerate usual activities including ADL's and IADl's without pain greater than 2/10 on pain scale LTG Duration 01/06/21 Assessment Summary Assessment Patient presents with function -limiting pain right foot and ankle with unknown cause. Patient has history of prior tib/fib fracture with ORIF fixation. MRI showed: 1. Diffuse ankle soft tissue swelling extending to dorsal aspect of hindfoot and midfoot . 2. Post fixation changes seen in distal tibial shaft with [address]. There is suggestion of edema throughout visualized distal tibia and fibular as well as talus. No discrete fracture line is seen. Finding likely represent stress related changes. New line 3. 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 Moderate amount of joint effusion with suggestion of anterior intra-articular loose body as above. 4. Tendinosis involving posterior tibialis tendon at the level of medial malleolus. Rest of the ankle tendons are intact. 5. Sprain/moderate grade partial-thickness tear involving lateral ankle ligaments as above. Feel patient will benefit from physical therapy to decrease his pain and swelling, and improve his ability to ambulate and do all other usual weight-bearing activities and return to his prior level of function as able. Physical Therapy Plan Frequency and Duration Frequency of Treatment 2x/wk Duration of Treatment 12 weeks Plan of Care Start Date 09/28/20 Plan of Care End Date 12/27/20 Therapeutic Interventions Therapeutic Interventions Gait Training,Home Exercise Program,Manual Therapy,Patient /Caregiver Education,Self-Care /Home Management,Taping, Therapeutic Activities, Therapeutic Exercises Modalities Cold Pack/Ice Massage,Electric Stimulation,Hot Packs, Infrared Therapy,Iontophoresis Other Therapeutic Interventions No ultrasound due to pins from prior fracture Next Visit Focus/Plan Next Note Type Treatment Note Next Visit Plan Cold laser, MLD, gentle ther ex as tolerated, kinesiotape, IFES with ice, continue patient education for self- management.
--- NOTE | 2020-09-28 15:13 | PT.OPPOC ---
Physical, Occupational & Speech Therapy At [facility] Current Diagnoses Other chronic pain (09/28/20) Pain in unspecified ankle and joints of unspecified foot (09/28/20) Difficulty in walking, not elsewhere classified (09/28/20) Visit Care Team Role Provider Type Cesar Bar DO Attending Provider Physician Family Provider Primary Care Provider Referring Provider Specialty: [facility] Practice Address: [address] [place] [address], [facility] Email: Plan Of Care PT-OP-T Assessment and Plan Start: 09/28/20 08:18 Freq: Status: Active Protocol: Document 09/28/20 09:01 [facility] (Rec: 09/28/20 10:28 [facility] [id number]) Physical Therapy Assessment Rehab Potential Rehabilitation Potential Good Evaluation Complexity Number of Personal Factors/Comorbidities 3 or More Number of Body Systems Impaired 4 or More Clinical Presentation at Evaluation Evolving Impairments Impairments Edema,Functional Activities, Gait,Pain Goals Three Impairment gait dysfunction; requires use of crutches, unable to tolerate wt.-bearing Short Term Goal (STG) Decrease pain sufficient to allow patient to ambulate with full weight-bearing for short houshold distances with no increase in pain and no limp STG Duration 11/25/20 Long-Term Goal (LTG) Patient able to ambulate without assistive device all usual distances without an increase in pain and no limp LTG Duration 01/06/21 Two Impairment moderate edema right foot/ ankle Short Term Goal (STG) Decrease edema right foot and ankle by at least 2 cm circumferential measurements STG Duration 10/30/20 Mail Officer Goal (LTG) Decrease swelling right foot and ankle to mild, with patient to demonstrate appropriate self-management to include elevation, ice, and use of compression. LTG Duration 01/06/21 One Impairment pain right foot/ankle 6/10 Short Term Goal (STG) Decrease pain to no greater than 4/10 right foot/ankle Long-Term Goal (LTG) Patient able to tolerate usual activities including ADL's and IADl's without pain greater than 2/10 on pain scale LTG Duration 01/06/21 Assessment Summary Assessment Patient presents with function -limiting pain right foot and ankle with unknown cause. Patient has history of prior tib/fib fracture with ORIF fixation. MRI showed: 1. Diffuse ankle soft tissue swelling extending to dorsal aspect of hindfoot and midfoot . 2. Post fixation changes seen in distal tibial shaft with [address]. There is suggestion of edema throughout visualized distal tibia and fibular as well as talus. No discrete fracture line is seen. Finding likely represent stress related changes. New line 3. 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 Moderate amount of joint effusion with suggestion of anterior intra-articular loose body as above. 4. Tendinosis involving posterior tibialis tendon at the level of medial malleolus. Rest of the ankle tendons are intact. 5. Sprain/moderate grade partial-thickness tear involving lateral ankle ligaments as above. Feel patient will benefit from physical therapy to decrease his pain and swelling, and improve his ability to ambulate and do all other usual weight-bearing activities and return to his prior level of function as able. Physical Therapy Plan Frequency and Duration Frequency of Treatment 2x/wk Duration of Treatment 12 weeks Plan of Care Start Date 09/28/20 Plan of Care End Date 12/27/20 Therapeutic Interventions Therapeutic Interventions Gait Training,Home Exercise Program,Manual Therapy,Patient /Caregiver Education,Self-Care /Home Management,Taping, Therapeutic Activities, Therapeutic Exercises Modalities Cold Pack/Ice Massage,Electric Stimulation,Hot Packs, Infrared Therapy,Iontophoresis Other Therapeutic Interventions No ultrasound due to pins from prior fracture Next Visit Focus/Plan Next Note Type Treatment Note Next Visit Plan Cold laser, MLD, gentle ther ex as tolerated, kinesiotape, IFES with ice, continue patient education for self- management. Plan of Care Dates Plan of Care Start Date 09/28/20 Plan of Care End Date 12/27/20 Electronically Signed by: Simin Mahan, PT 09/28/20 7330 Please Sign and Return: I have reviewed this Plan of Care and certify that the skilled therapy services above are required to meet the patient?s needs. Physician Signature Date Printed Name and Credentials Clinical Instructor Signature Printed Name and Credentials
--- NOTE | 2020-09-30 14:26 | PT.OTN ---
Current Diagnoses Other chronic pain (09/30/20) Pain in unspecified ankle and joints of unspecified foot (09/30/20) Difficulty in walking, not elsewhere classified (09/30/20) Physical Therapy Treatment Note PT-OP-A Visit Information Start: 09/28/20 08:18 Freq: Status: Active Protocol: Document 09/30/20 13:58 MA (Rec: 09/30/20 14:09 MA [email or web address]) Out-Patient Physical Therapy Visit Information Visit Information Visit Type Treatment Note Visit Start Time 13:10 Visit Stop Time 13:58 Total Visit Minutes 48 Visit Number 2 Number of RADIATION TECHNICIAN Visits 1 PT-OP-B Current Condition Start: 09/28/20 08:18 Freq: Status: Active Protocol: Document 09/28/20 09:01 SAK (Rec: 09/28/20 09:54 SAK [id number]) Current Condition History of Current Condition Onset Date 3 months Current Complaints acute onset right foot and ankle History of Current Condition No known cause for onset pain, using axillary crutches, has had to severely limit his activity. Patient has complicated medical history with neck surgery, back surgery, carpal tunnel syndrome, right knee pain. Was being seen for rehab of lumbar spine surgery recently, completed that rehab but has had this ongoing right ankle/ foot pain. Physician hasn't reviewed his MRI of his foot taken one month ago because when seen last week having severe right knee pain and went to ER. Diagnosed with cellulitis, finishing antibiotics today, pain decreased but persists. Prior distal tib/fib fracture requiring ORIF right ankle 1994. Prior Treatments and Tests MRI 09/05/20: posterior tibialis tendinosis, sinus tarsi syndrome Treatment Goals Patient/Caregiver Goals Decrease pain and swelling and be able to ambulate without assitive devicde Prior Functional Status Baseline Function- ADL's Independent Baseline Function- Mobility Independent Baseline Function- Gait independent no device Baseline Function- Recreation/Hobbies going to the beach with dog for walks, fishing Current Functional Impairments (Reported) Functional Limitations- ADL's has to use crutches Functional Limitations- Mobility/Gait limited due to use of crutches Functional Limitations- Work/School retired/disabled Functional Limitations- Recreation/ unable to take walks or go Hobbies fishing due to ankle dysfunction Personal Factors Other Personal Factors That May Effect multiple comorbidities Therapy/Recovery PT-OP-C Subjective Start: 09/28/20 08:18 Freq: Status: Active Protocol: Document 09/30/20 13:58 MA (Rec: 09/30/20 14:09 MA [email or web address]) OP-PT Subjective Patient Comments Patient Comments Pt states taping helped the swelling go down. He has been standing with light pressure on foot while cooking and doing dishes. PT-OP-F Manual Assessment Start: 09/28/20 08:18 Freq: Status: Active Protocol: Document 09/28/20 09:01 SAK (Rec: 09/28/20 12:57 SAK [id number]) Manual Assessments Joint Mobility Assessment Joint Mobility Assessment unable to assess due to high pain level PT-OP-G Mobility & Gait Start: 09/28/20 08:18 Freq: Status: Active Protocol: Document 09/28/20 09:01 SAK (Rec: 09/28/20 12:57 SAK [id number]) OP Gait Assessment Gait Gait Assistance Required: Independent Assistive Devices Assistive Device Axillary Crutches Gait Deviations General Gait Pattern Within Normal Limits Factors Limiting Gait Function Factors Limiting Gait Function Pain PT-OP-H Neuro Start: 09/28/20 08:18 Freq: Status: Active Protocol: Document 09/28/20 09:01 SAK (Rec: 09/28/20 12:57 [facility] [id number]) Sensation Evaluation Gross Sensation Gross Sensation WNL PT-OP-J Posture/Palpation/Skin Start: 09/28/20 08:18 Freq: Status: Active Protocol: Document 09/28/20 09:01 SAK (Rec: 09/28/20 12:57 SAK [id number]) Skin Assessment Edema Assessment right foot and ankle Edema Type Pitting Edema Degree 3+ Edema Appearance Taut Subjective Edema Description Pain,Tightness Circumference Measurement 4 Location 10 cm proximal malleoli Comments left 24.8, right 27.1 3 Location 5 cm proximal malleoli Comments left 23.3, right 25.2 2 Location malleolar Comments left 28.0, right 34.2 1 Location midfoot Comments left 24.4, right 24.8 PT-OP-K Range of Motion Start: 09/28/20 08:18 Freq: Status: Active Protocol: Document 09/28/20 09:01 SAK (Rec: 09/28/20 12:57 SAK [id number]) Knee Goniometric Range of Motion Knee coleen Knee ROM WFL Yes Ankle and Foot Goniometric Range of Motion Ankle and Foot Right Ankle/Foot ROM WFL No Testing Position Sitting Dorsiflexion with Knee Flexed 0 Plantarflexion 35 Inversion 25 Eversion 30 Left Ankle/Foot ROM WFL Yes Ankle and Foot ROM Limitations ROM Limitations Pain,Swelling PT-OP-M Strength Start: 09/28/20 08:18 Freq: Status: Active Protocol: Document 09/28/20 09:01 SAK (Rec: 09/28/20 12:57 SAK [id number]) Ankle/Foot Strength Ankle and Foot Manual Muscle Testing Left Dorsiflexion (L4) 5 Normal Plantarflexion (S1) 5 Normal Inversion 5 Normal Eversion (S1) 5 Normal Right Comments not tested due to pain PT-OP-Q Treatments Start: 09/28/20 08:18 Freq: Status: Active Protocol: Document 09/30/20 13:58 MA (Rec: 09/30/20 14:09 MA [email or web address]) Therapeutic Exercises Supine Exercises Ankle Pumps Side right Reps/Minutes 10x Comments decreased ROM due to swelling Manual Therapy Treatment Taping 2 Body Location right foot and ankle Treatment Focus pain reduction, edema reduction, inhibition of posterior tibialis, arch sup Type of Tape Kinesio Tape Comments 2 fan strips for redema reduction, 1 Y strip for posterior tibialis inhibition, 1 I strip for arch support PT-OP-R Modalities Start: 09/28/20 08:18 Freq: Status: Active Protocol: Document 09/30/20 13:58 MA (Rec: 09/30/20 14:09 MA [email or web address]) Electric Stimulation Electric Stimulation IFC Body Location right foot/ankle Duration (Minutes) 10 Intensity 46 Target/Sweep Sweep High/Low High Patient Position Hooklying Combined With Heat/Cold Cold Pack Comments Cold pack around ankle Infrared Treatment Treatment Cold Laser Duration (Minutes) 6 Body Position Supine Comments Pulsed Other Unlisted Modality Treatment Cold Laser Parameters pulsed PT-OP-T Assessment and Plan Start: 09/28/20 08:18 Freq: Status: Active Protocol: Document 09/30/20 13:58 MA (Rec: 09/30/20 14:09 MA [email or web address]) Physical Therapy Assessment Goals Three Impairment gait dysfunction; requires use of crutches, unable to tolerate wt.-bearing Short Term Goal (STG) Decrease pain sufficient to allow patient to ambulate with full weight-bearing for short houshold distances with no increase in pain and no limp STG Duration 11/25/20 Underground Production Foreperson Goal (LTG) Patient able to ambulate without assistive device all usual distances without an increase in pain and no limp LTG Duration 01/06/21 Two Impairment moderate edema right foot/ ankle Short Term Goal (STG) Decrease edema right foot and ankle by at least 2 cm circumferential measurements STG Duration 10/30/20 Longterm Goal (LTG) Decrease swelling right foot and ankle to mild, with patient to demonstrate appropriate self-management to include elevation, ice, and use of compression. LTG Duration 01/06/21 One Impairment pain right foot/ankle 6/10 Short Term Goal (STG) Decrease pain to no greater than 4/10 right foot/ankle Underground Production Foreperson Goal (LTG) Patient able to tolerate usual activities including ADL's and IADl's without pain greater than 2/10 on pain scale LTG Duration 01/06/21 Assessment Summary Assessment Taped pt for continued decrease of edema in R ankle. Cold jorge luis and IFC R ankle for pain management and edema control Physical Therapy Plan Frequency and Duration Frequency of Treatment 2x/wk Duration of Treatment 12 weeks Plan of Care Start Date 09/28/20 Plan of Care End Date 12/27/20 Therapeutic Interventions Therapeutic Interventions Gait Training,Home Exercise Program,Manual Therapy,Patient /Caregiver Education,Self-Care /Home Management,Taping, Therapeutic Activities, Therapeutic Exercises Modalities Cold Pack/Ice Massage,Electric Stimulation,Hot Packs, Infrared Therapy,Iontophoresis Other Therapeutic Interventions No ultrasound due to pins from prior fracture Next Visit Focus/Plan Next Note Type Treatment Note Next Visit Plan Cold laser, MLD, gentle ther ex as tolerated, kinesiotape, IFES with ice, continue patient education for self- management.
--- NOTE | 2020-10-04 13:31 | PT.OTN ---
Current Diagnoses Other chronic pain (10/04/20) Pain in unspecified ankle and joints of unspecified foot (10/04/20) Difficulty in walking, not elsewhere classified (10/04/20) Physical Therapy Treatment Note PT-OP-A Visit Information Start: 09/28/20 08:18 Freq: Status: Active Protocol: Document 10/04/20 13:18 MA (Rec: 10/04/20 13:31 MA [email or web address]) Out-Patient Physical Therapy Visit Information Visit Information Visit Type Treatment Note Visit Start Time 12:14 Visit Stop Time 13:15 Total Visit Minutes 61 Visit Number 3 Number of RECOVERY ASSISTANT Visits 2 PT-OP-B Current Condition Start: 09/28/20 08:18 Freq: Status: Active Protocol: Document 09/28/20 09:01 SAK (Rec: 09/28/20 09:54 SAK [id number]) Current Condition History of Current Condition Onset Date 3 months Current Complaints acute onset right foot and ankle History of Current Condition No known cause for onset pain, using axillary crutches, has had to severely limit his activity. Patient has complicated medical history with neck surgery, back surgery, carpal tunnel syndrome, right knee pain. Was being seen for rehab of lumbar spine surgery recently, completed that rehab but has had this ongoing right ankle/ foot pain. Physician hasn't reviewed his MRI of his foot taken one month ago because when seen last week having severe right knee pain and went to ER. Diagnosed with cellulitis, finishing antibiotics today, pain decreased but persists. Prior distal tib/fib fracture requiring ORIF right ankle 1994. Prior Treatments and Tests MRI 09/05/20: posterior tibialis tendinosis, sinus tarsi syndrome Treatment Goals Patient/Caregiver Goals Decrease pain and swelling and be able to ambulate without assitive devicde Prior Functional Status Baseline Function- ADL's Independent Baseline Function- Mobility Independent Baseline Function- Gait independent no device Baseline Function- Recreation/Hobbies going to the beach with dog for walks, fishing Current Functional Impairments (Reported) Functional Limitations- ADL's has to use crutches Functional Limitations- Mobility/Gait limited due to use of crutches Functional Limitations- Work/School retired/disabled Functional Limitations- Recreation/ unable to take walks or go Hobbies fishing due to ankle dysfunction Personal Factors Other Personal Factors That May Effect multiple comorbidities Therapy/Recovery PT-OP-C Subjective Start: 09/28/20 08:18 Freq: Status: Active Protocol: Document 10/04/20 13:18 MA (Rec: 10/04/20 13:31 MA [email or web address]) OP-PT Subjective Patient Comments Patient Comments Pt arrived with cane instead of crutches stating the crutches were hurting his shoulders so he switched on Saturday to the cane. PT-OP-F Manual Assessment Start: 09/28/20 08:18 Freq: Status: Active Protocol: Document 09/28/20 09:01 SAK (Rec: 09/28/20 12:57 [facility] [id number]) Manual Assessments Joint Mobility Assessment Joint Mobility Assessment unable to assess due to high pain level PT-OP-G Mobility & Gait Start: 09/28/20 08:18 Freq: Status: Active Protocol: Document 09/28/20 09:01 SAK (Rec: 09/28/20 12:57 [facility] [id number]) OP Gait Assessment Gait Gait Assistance Required: Independent Assistive Devices Assistive Device Axillary Crutches Gait Deviations General Gait Pattern Within Normal Limits Factors Limiting Gait Function Factors Limiting Gait Function Pain PT-OP-H Neuro Start: 09/28/20 08:18 Freq: Status: Active Protocol: Document 09/28/20 09:01 SAK (Rec: 09/28/20 12:57 [facility] [id number]) Sensation Evaluation Gross Sensation Gross Sensation WNL PT-OP-J Posture/Palpation/Skin Start: 09/28/20 08:18 Freq: Status: Active Protocol: Document 09/28/20 09:01 SAK (Rec: 09/28/20 12:57 [facility] [id number]) Skin Assessment Edema Assessment right foot and ankle Edema Type Pitting Edema Degree 3+ Edema Appearance Taut Subjective Edema Description Pain,Tightness Circumference Measurement 4 Location 10 cm proximal malleoli Comments left 24.8, right 27.1 3 Location 5 cm proximal malleoli Comments left 23.3, right 25.2 2 Location malleolar Comments left 28.0, right 34.2 1 Location midfoot Comments left 24.4, right 24.8 PT-OP-K Range of Motion Start: 09/28/20 08:18 Freq: Status: Active Protocol: Document 09/28/20 09:01 SAK (Rec: 09/28/20 12:57 SAK [id number]) Knee Goniometric Range of Motion Knee coleen Knee ROM WFL Yes Ankle and Foot Goniometric Range of Motion Ankle and Foot Right Ankle/Foot ROM WFL No Testing Position Sitting Dorsiflexion with Knee Flexed 0 Plantarflexion 35 Inversion 25 Eversion 30 Left Ankle/Foot ROM WFL Yes Ankle and Foot ROM Limitations ROM Limitations Pain,Swelling PT-OP-M Strength Start: 09/28/20 08:18 Freq: Status: Active Protocol: Document 09/28/20 09:01 [facility] (Rec: 09/28/20 12:57 [facility] [id number]) Ankle/Foot Strength Ankle and Foot Manual Muscle Testing Left Dorsiflexion (L4) 5 Normal Plantarflexion (S1) 5 Normal Inversion 5 Normal Eversion (S1) 5 Normal Right Comments not tested due to pain PT-OP-Q Treatments Start: 09/28/20 08:18 Freq: Status: Active Protocol: Document 10/04/20 13:18 MA (Rec: 10/04/20 13:31 MA [email or web address]) Therapeutic Exercises Supine Exercises Ankle Pumps Side right Reps/Minutes 10x Comments decreased ROM due to swelling Manual Therapy Treatment Taping 2 Body Location right foot and ankle Treatment Focus pain reduction, edema reduction, inhibition of posterior tibialis, arch sup Type of Tape Kinesio Tape Comments 2 fan strips for redema reduction, 1 Y strip for posterior tibialis inhibition, 1 I strip for arch support PT-OP-R Modalities Start: 09/28/20 08:18 Freq: Status: Active Protocol: Document 10/04/20 13:18 MA (Rec: 10/04/20 13:31 MA [email or web address]) Electric Stimulation Electric Stimulation IFC Body Location right foot/ankle Duration (Minutes) 10 Intensity 65 Target/Sweep Sweep High/Low High Patient Position Hooklying Combined With Heat/Cold Cold Pack Comments Cold pack around ankle Infrared Treatment Treatment Cold Laser Duration (Minutes) 6 Body Position Supine Comments Pulsed PT-OP-T Assessment and Plan Start: 09/28/20 08:18 Freq: Status: Active Protocol: Document 10/04/20 13:18 MA (Rec: 10/04/20 13:31 MA [email or web address]) Physical Therapy Assessment Goals Three Impairment gait dysfunction; requires use of crutches, unable to tolerate wt.-bearing Short Term Goal (STG) Decrease pain sufficient to allow patient to ambulate with full weight-bearing for short houshold distances with no increase in pain and no limp STG Duration 11/25/20 Snf Goal (LTG) Patient able to ambulate without assistive device all usual distances without an increase in pain and no limp LTG Duration 01/06/21 Two Impairment moderate edema right foot/ ankle Short Term Goal (STG) Decrease edema right foot and ankle by at least 2 cm circumferential measurements STG Duration 10/30/20 Patient Relations Liaison Goal (LTG) Decrease swelling right foot and ankle to mild, with patient to demonstrate appropriate self-management to include elevation, ice, and use of compression. LTG Duration 01/06/21 One Impairment pain right foot/ankle 6/10 Short Term Goal (STG) Decrease pain to no greater than 4/10 right foot/ankle Patient Relations Liaison Goal (LTG) Patient able to tolerate usual activities including ADL's and IADl's without pain greater than 2/10 on pain scale LTG Duration 01/06/21 Assessment Summary Assessment Pt continues to have swelling concentrating mainly around medial malleolus. Cold laser applied to 4 spots around medial and lateral malleoli. Pt able to DF L 12, R 3 degrees; PF L 35, R26 degrees. Instructed pt to continue ankle pumps and icing at home. Pt would continue to benefit from skilled therapy to decrease swelling and increase ankle ROM. Physical Therapy Plan Frequency and Duration Frequency of Treatment 2x/wk Duration of Treatment 12 weeks Plan of Care Start Date 09/28/20 Plan of Care End Date 12/27/20 Therapeutic Interventions Therapeutic Interventions Gait Training,Home Exercise Program,Manual Therapy,Patient /Caregiver Education,Self-Care /Home Management,Taping, Therapeutic Activities, Therapeutic Exercises Modalities Cold Pack/Ice Massage,Electric Stimulation,Hot Packs, Infrared Therapy,Iontophoresis Other Therapeutic Interventions No ultrasound due to pins from prior fracture Next Visit Focus/Plan Next Note Type Treatment Note Next Visit Plan Practice gait with cane. Cold laser, MLD, gentle ther ex as tolerated, kinesiotape, IFES with ice, continue patient education for self- management.
--- NOTE | 2020-10-10 12:16 | PT.OTN ---
Current Diagnoses Other chronic pain (10/10/20) Pain in unspecified ankle and joints of unspecified foot (10/10/20) Difficulty in walking, not elsewhere classified (10/10/20) Physical Therapy Treatment Note PT-OP-A Visit Information Start: 09/28/20 08:18 Freq: Status: Active Protocol: Document 10/10/20 08:22 SAK (Rec: 10/10/20 08:36 SAK [id number]) Out-Patient Physical Therapy Visit Information Visit Information Visit Type Treatment Note Visit Start Time 08:15 Visit Stop Time 09:08 Total Visit Minutes 57 Visit Number 4 Number of SHANK TURNER Visits 3 PT-OP-B Current Condition Start: 09/28/20 08:18 Freq: Status: Active Protocol: Document 09/28/20 09:01 SAK (Rec: 09/28/20 09:54 SAK [id number]) Current Condition History of Current Condition Onset Date 3 months Current Complaints acute onset right foot and ankle History of Current Condition No known cause for onset pain, using axillary crutches, has had to severely limit his activity. Patient has complicated medical history with neck surgery, back surgery, carpal tunnel syndrome, right knee pain. Was being seen for rehab of lumbar spine surgery recently, completed that rehab but has had this ongoing right ankle/ foot pain. Physician hasn't reviewed his MRI of his foot taken one month ago because when seen last week having severe right knee pain and went to ER. Diagnosed with cellulitis, finishing antibiotics today, pain decreased but persists. Prior distal tib/fib fracture requiring ORIF right ankle 1994. Prior Treatments and Tests MRI 09/05/20: posterior tibialis tendinosis, sinus tarsi syndrome Treatment Goals Patient/Caregiver Goals Decrease pain and swelling and be able to ambulate without assitive devicde Prior Functional Status Baseline Function- ADL's Independent Baseline Function- Mobility Independent Baseline Function- Gait independent no device Baseline Function- Recreation/Hobbies going to the beach with dog for walks, fishing Current Functional Impairments (Reported) Functional Limitations- ADL's has to use crutches Functional Limitations- Mobility/Gait limited due to use of crutches Functional Limitations- Work/School retired/disabled Functional Limitations- Recreation/ unable to take walks or go Hobbies fishing due to ankle dysfunction Personal Factors Other Personal Factors That May Effect multiple comorbidities Therapy/Recovery PT-OP-C Subjective Start: 09/28/20 08:18 Freq: Status: Active Protocol: Document 10/10/20 08:22 SAK (Rec: 10/10/20 08:36 [facility] [id number]) OP-PT Subjective Patient Comments Patient Comments Patient reports he doesn't trust his right ankle, pain variable. Swelling some improved but persists. PT-OP-F Manual Assessment Start: 09/28/20 08:18 Freq: Status: Active Protocol: Document 09/28/20 09:01 [facility] (Rec: 09/28/20 12:57 [facility] [id number]) Manual Assessments Joint Mobility Assessment Joint Mobility Assessment unable to assess due to high pain level PT-OP-G Mobility & Gait Start: 09/28/20 08:18 Freq: Status: Active Protocol: Document 09/28/20 09:01 [facility] (Rec: 09/28/20 12:57 [facility] [id number]) OP Gait Assessment Gait Gait Assistance Required: Independent Assistive Devices Assistive Device Axillary Crutches Gait Deviations General Gait Pattern Within Normal Limits Factors Limiting Gait Function Factors Limiting Gait Function Pain PT-OP-H Neuro Start: 09/28/20 08:18 Freq: Status: Active Protocol: Document 09/28/20 09:01 [facility] (Rec: 09/28/20 12:57 [facility] [id number]) Sensation Evaluation Gross Sensation Gross Sensation WNL PT-OP-J Posture/Palpation/Skin Start: 09/28/20 08:18 Freq: Status: Active Protocol: Document 09/28/20 09:01 [facility] (Rec: 09/28/20 12:57 [facility] [id number]) Skin Assessment Edema Assessment right foot and ankle Edema Type Pitting Edema Degree 3+ Edema Appearance Taut Subjective Edema Description Pain,Tightness Circumference Measurement 4 Location 10 cm proximal malleoli Comments left 24.8, right 27.1 3 Location 5 cm proximal malleoli Comments left 23.3, right 25.2 2 Location malleolar Comments left 28.0, right 34.2 1 Location midfoot Comments left 24.4, right 24.8 PT-OP-K Range of Motion Start: 09/28/20 08:18 Freq: Status: Active Protocol: Document 09/28/20 09:01 SAK (Rec: 09/28/20 12:57 [facility] [id number]) Knee Goniometric Range of Motion Knee coleen Knee ROM WFL Yes Ankle and Foot Goniometric Range of Motion Ankle and Foot Right Ankle/Foot ROM WFL No Testing Position Sitting Dorsiflexion with Knee Flexed 0 Plantarflexion 35 Inversion 25 Eversion 30 Left Ankle/Foot ROM WFL Yes Ankle and Foot ROM Limitations ROM Limitations Pain,Swelling PT-OP-M Strength Start: 09/28/20 08:18 Freq: Status: Active Protocol: Document 09/28/20 09:01 [facility] (Rec: 09/28/20 12:57 [facility] [id number]) Ankle/Foot Strength Ankle and Foot Manual Muscle Testing Left Dorsiflexion (L4) 5 Normal Plantarflexion (S1) 5 Normal Inversion 5 Normal Eversion (S1) 5 Normal Right Comments not tested due to pain PT-OP-Q Treatments Start: 09/28/20 08:18 Freq: Status: Active Protocol: Document 10/10/20 08:22 [facility] (Rec: 10/10/20 08:36 [facility] [id number]) Cardio Equipment Recumbent Elliptical (Meiyou) Duration (Minutes) 10 Resistance 1 Seat Position 10 Other 5 min UE's and LE's, 5 min LE' s only Gym Equipment Shuttle Balance chains red Details WBOS Reps/Duration 1 min Comments balance front/back Therapeutic Exercises Supine Exercises Ankle Pumps Side right Reps/Minutes 10x Manual Therapy Treatment Taping 2 Body Location right foot and ankle Treatment Focus pain reduction, edema reduction, inhibition of posterior tibialis, arch sup Type of Tape Kinesio Tape Comments 2 fan strips for redema reduction, 1 Y strip for posterior tibialis inhibition, 1 I strip for arch support PT-OP-R Modalities Start: 09/28/20 08:18 Freq: Status: Active Protocol: Document 10/10/20 08:22 [facility] (Rec: 10/10/20 08:36 [facility] [id number]) Electric Stimulation Electric Stimulation IFC Body Location right foot/ankle Duration (Minutes) 10 Intensity 65 Target/Sweep Sweep High/Low High Patient Position Hooklying Combined With Heat/Cold Cold Pack Comments Cold pack around ankle Infrared Treatment Treatment Cold Laser Duration (Minutes) 6 Body Position Supine Comments Pulsed PT-OP-T Assessment and Plan Start: 09/28/20 08:18 Freq: Status: Active Protocol: Document 10/10/20 08:22 [facility] (Rec: 10/10/20 08:36 SAK [id number]) Physical Therapy Assessment Goals Three Impairment gait dysfunction; requires use of crutches, unable to tolerate wt.-bearing Short Term Goal (STG) Decrease pain sufficient to allow patient to ambulate with full weight-bearing for short houshold distances with no increase in pain and no limp STG Duration 11/25/20 Prison Goal (LTG) Patient able to ambulate without assistive device all usual distances without an increase in pain and no limp LTG Duration 01/06/21 Two Impairment moderate edema right foot/ ankle Short Term Goal (STG) Decrease edema right foot and ankle by at least 2 cm circumferential measurements STG Duration 10/30/20 Chief Electrician Goal (LTG) Decrease swelling right foot and ankle to mild, with patient to demonstrate appropriate self-management to include elevation, ice, and use of compression. LTG Duration 01/06/21 One Impairment pain right foot/ankle 6/10 Short Term Goal (STG) Decrease pain to no greater than 4/10 right foot/ankle Prison Goal (LTG) Patient able to tolerate usual activities including ADL's and IADl's without pain greater than 2/10 on pain scale LTG Duration 01/06/21 Assessment Summary Assessment Improved swelling noted today, pain variable throughout the day, increases with increase in weight-bearing. Denied increase in pain with Biodex or shuttle balance. Physical Therapy Plan Frequency and Duration Frequency of Treatment 2x/wk Duration of Treatment 12 weeks Plan of Care Start Date 09/28/20 Plan of Care End Date 12/27/20 Therapeutic Interventions Therapeutic Interventions Gait Training,Home Exercise Program,Manual Therapy,Patient /Caregiver Education,Self-Care /Home Management,Taping, Therapeutic Activities, Therapeutic Exercises Modalities Cold Pack/Ice Massage,Electric Stimulation,Hot Packs, Infrared Therapy,Iontophoresis Other Therapeutic Interventions No ultrasound due to pins from prior fracture Next Visit Focus/Plan Next Note Type Treatment Note Next Visit Plan Add BAPS board. Continue PT per POC
--- NOTE | 2020-10-13 10:59 | PT.OTN ---
Current Diagnoses Other chronic pain (10/13/20) Pain in unspecified ankle and joints of unspecified foot (10/13/20) Difficulty in walking, not elsewhere classified (10/13/20) Physical Therapy Treatment Note PT-OP-A Visit Information Start: 09/28/20 08:18 Freq: Status: Active Protocol: Document 10/13/20 08:12 SAK (Rec: 10/13/20 08:31 SAK [id number]) Out-Patient Physical Therapy Visit Information Visit Information Visit Type Treatment Note Visit Start Time 08:15 Visit Stop Time 09:12 Total Visit Minutes 57 Visit Number 5 Number of ELECTRIC BLASTING CAP ASSEMBLER Visits 0 PT-OP-B Current Condition Start: 09/28/20 08:18 Freq: Status: Active Protocol: Document 09/28/20 09:01 SAK (Rec: 09/28/20 09:54 SAK [id number]) Current Condition History of Current Condition Onset Date 3 months Current Complaints acute onset right foot and ankle History of Current Condition No known cause for onset pain, using axillary crutches, has had to severely limit his activity. Patient has complicated medical history with neck surgery, back surgery, carpal tunnel syndrome, right knee pain. Was being seen for rehab of lumbar spine surgery recently, completed that rehab but has had this ongoing right ankle/ foot pain. Physician hasn't reviewed his MRI of his foot taken one month ago because when seen last week having severe right knee pain and went to ER. Diagnosed with cellulitis, finishing antibiotics today, pain decreased but persists. Prior distal tib/fib fracture requiring ORIF right ankle 1994. Prior Treatments and Tests MRI 09/05/20: posterior tibialis tendinosis, sinus tarsi syndrome Treatment Goals Patient/Caregiver Goals Decrease pain and swelling and be able to ambulate without assitive devicde Prior Functional Status Baseline Function- ADL's Independent Baseline Function- Mobility Independent Baseline Function- Gait independent no device Baseline Function- Recreation/Hobbies going to the beach with dog for walks, fishing Current Functional Impairments (Reported) Functional Limitations- ADL's has to use crutches Functional Limitations- Mobility/Gait limited due to use of crutches Functional Limitations- Work/School retired/disabled Functional Limitations- Recreation/ unable to take walks or go Hobbies fishing due to ankle dysfunction Personal Factors Other Personal Factors That May Effect multiple comorbidities Therapy/Recovery PT-OP-C Subjective Start: 09/28/20 08:18 Freq: Status: Active Protocol: Document 10/13/20 08:12 SAK (Rec: 10/13/20 08:31 [facility] [id number]) OP-PT Subjective Patient Comments Patient Comments Reports decreased pain after last session, thinks laser helpful. Has been doing more walking. Patient Reported Progress Improving PT-OP-F Manual Assessment Start: 09/28/20 08:18 Freq: Status: Active Protocol: Document 09/28/20 09:01 SAK (Rec: 09/28/20 12:57 [facility] [id number]) Manual Assessments Joint Mobility Assessment Joint Mobility Assessment unable to assess due to high pain level PT-OP-G Mobility & Gait Start: 09/28/20 08:18 Freq: Status: Active Protocol: Document 09/28/20 09:01 SAK (Rec: 09/28/20 12:57 [facility] [id number]) OP Gait Assessment Gait Gait Assistance Required: Independent Assistive Devices Assistive Device Axillary Crutches Gait Deviations General Gait Pattern Within Normal Limits Factors Limiting Gait Function Factors Limiting Gait Function Pain PT-OP-H Neuro Start: 09/28/20 08:18 Freq: Status: Active Protocol: Document 09/28/20 09:01 [facility] (Rec: 09/28/20 12:57 [facility] [id number]) Sensation Evaluation Gross Sensation Gross Sensation WNL PT-OP-J Posture/Palpation/Skin Start: 09/28/20 08:18 Freq: Status: Active Protocol: Document 09/28/20 09:01 SAK (Rec: 09/28/20 12:57 [facility] [id number]) Skin Assessment Edema Assessment right foot and ankle Edema Type Pitting Edema Degree 3+ Edema Appearance Taut Subjective Edema Description Pain,Tightness Circumference Measurement 4 Location 10 cm proximal malleoli Comments left 24.8, right 27.1 3 Location 5 cm proximal malleoli Comments left 23.3, right 25.2 2 Location malleolar Comments left 28.0, right 34.2 1 Location midfoot Comments left 24.4, right 24.8 PT-OP-K Range of Motion Start: 09/28/20 08:18 Freq: Status: Active Protocol: Document 09/28/20 09:01 SAK (Rec: 09/28/20 12:57 [facility] [id number]) Knee Goniometric Range of Motion Knee coleen Knee ROM WFL Yes Ankle and Foot Goniometric Range of Motion Ankle and Foot Right Ankle/Foot ROM WFL No Testing Position Sitting Dorsiflexion with Knee Flexed 0 Plantarflexion 35 Inversion 25 Eversion 30 Left Ankle/Foot ROM WFL Yes Ankle and Foot ROM Limitations ROM Limitations Pain,Swelling PT-OP-M Strength Start: 09/28/20 08:18 Freq: Status: Active Protocol: Document 09/28/20 09:01 [facility] (Rec: 09/28/20 12:57 [facility] [id number]) Ankle/Foot Strength Ankle and Foot Manual Muscle Testing Left Dorsiflexion (L4) 5 Normal Plantarflexion (S1) 5 Normal Inversion 5 Normal Eversion (S1) 5 Normal Right Comments not tested due to pain PT-OP-Q Treatments Start: 09/28/20 08:18 Freq: Status: Active Protocol: Document 10/13/20 08:12 [facility] (Rec: 10/13/20 08:31 [facility] [id number]) Cardio Equipment Recumbent Elliptical (Evolver) Duration (Minutes) 10 Resistance 1 Seat Position 10 Other 5 min UE's and LE's, 5 min LE' s only Gym Equipment Shuttle Balance chains red Details WBOS Reps/Duration 3 min Comments balance and weight shift front /back Therapeutic Exercises Supine Exercises ankle inv/ev Reps/Minutes 10x Ankle Pumps Side right Reps/Minutes 10x Sitting Exercises BAPS Sitting Exercise Name df/pf/inv/ev Equipment Used L4 Manual Therapy Treatment Taping 2 Body Location right foot and ankle Treatment Focus pain reduction, edema reduction, inhibition of posterior tibialis, arch sup Type of Tape Kinesio Tape Comments 2 fan strips for redema reduction, 1 Y strip for posterior tibialis inhibition, 1 I strip for arch support PT-OP-R Modalities Start: 09/28/20 08:18 Freq: Status: Active Protocol: Document 10/13/20 08:12 [facility] (Rec: 10/13/20 08:31 [facility] [id number]) Electric Stimulation Electric Stimulation IFC Body Location right foot/ankle Duration (Minutes) 10 Intensity 65 Target/Sweep Sweep High/Low High Patient Position Hooklying Combined With Heat/Cold Cold Pack Comments Cold pack around ankle Infrared Treatment Treatment Cold Laser Duration (Minutes) 6 Body Position Supine Continuous/Pulsed pulsed Program or Protocal Pulsed chronic joint pain and stiffness PT-OP-T Assessment and Plan Start: 09/28/20 08:18 Freq: Status: Active Protocol: Document 10/13/20 08:12 [facility] (Rec: 10/13/20 08:31 [facility] [id number]) Physical Therapy Assessment Goals Three Impairment gait dysfunction; requires use of crutches, unable to tolerate wt.-bearing Short Term Goal (STG) Decrease pain sufficient to allow patient to ambulate with full weight-bearing for short houshold distances with no increase in pain and no limp STG Duration 11/25/20 Prison Goal (LTG) Patient able to ambulate without assistive device all usual distances without an increase in pain and no limp LTG Duration 01/06/21 Two Impairment moderate edema right foot/ ankle Short Term Goal (STG) Decrease edema right foot and ankle by at least 2 cm circumferential measurements STG Duration 10/30/20 Plant Control Operator Goal (LTG) Decrease swelling right foot and ankle to mild, with patient to demonstrate appropriate self-management to include elevation, ice, and use of compression. LTG Duration 01/06/21 One Impairment pain right foot/ankle 6/10 Short Term Goal (STG) Decrease pain to no greater than 4/10 right foot/ankle Plant Control Operator Goal (LTG) Patient able to tolerate usual activities including ADL's and IADl's without pain greater than 2/10 on pain scale LTG Duration 01/06/21 Assessment Summary Assessment Decrease in pain, patient able to walk on some uneven ground Physical Therapy Plan Frequency and Duration Frequency of Treatment 2x/wk Duration of Treatment 12 weeks Plan of Care Start Date 09/28/20 Plan of Care End Date 12/27/20 Therapeutic Interventions Therapeutic Interventions Gait Training,Home Exercise Program,Manual Therapy,Patient /Caregiver Education,Self-Care /Home Management,Taping, Therapeutic Activities, Therapeutic Exercises Modalities Cold Pack/Ice Massage,Electric Stimulation,Hot Packs, Infrared Therapy,Iontophoresis Other Therapeutic Interventions No ultrasound due to pins from prior fracture Next Visit Focus/Plan Next Note Type Treatment Note Next Visit Plan Continue to gently introduce closed chain exercises as tolerated.
--- NOTE | 2020-10-17 11:54 | PT.OTN ---
Current Diagnoses Other chronic pain (10/17/20) Pain in unspecified ankle and joints of unspecified foot (10/17/20) Difficulty in walking, not elsewhere classified (10/17/20) Physical Therapy Treatment Note PT-OP-A Visit Information Start: 09/28/20 08:18 Freq: Status: Active Protocol: Document 10/17/20 08:12 [facility] (Rec: 10/17/20 09:01 [facility] [id number]) Out-Patient Physical Therapy Visit Information Visit Information Visit Type Treatment Note Visit Start Time 08:15 Visit Stop Time 09:04 Total Visit Minutes 49 Visit Number 6 Number of SILK SCREEN REPAIRER Visits 0 PT-OP-B Current Condition Start: 09/28/20 08:18 Freq: Status: Active Protocol: Document 09/28/20 09:01 SAK (Rec: 09/28/20 09:54 SAK [id number]) Current Condition History of Current Condition Onset Date 3 months Current Complaints acute onset right foot and ankle History of Current Condition No known cause for onset pain, using axillary crutches, has had to severely limit his activity. Patient has complicated medical history with neck surgery, back surgery, carpal tunnel syndrome, right knee pain. Was being seen for rehab of lumbar spine surgery recently, completed that rehab but has had this ongoing right ankle/ foot pain. Physician hasn't reviewed his MRI of his foot taken one month ago because when seen last week having severe right knee pain and went to ER. Diagnosed with cellulitis, finishing antibiotics today, pain decreased but persists. Prior distal tib/fib fracture requiring ORIF right ankle 1994. Prior Treatments and Tests MRI 09/05/20: posterior tibialis tendinosis, sinus tarsi syndrome Treatment Goals Patient/Caregiver Goals Decrease pain and swelling and be able to ambulate without assitive devicde Prior Functional Status Baseline Function- ADL's Independent Baseline Function- Mobility Independent Baseline Function- Gait independent no device Baseline Function- Recreation/Hobbies going to the beach with dog for walks, fishing Current Functional Impairments (Reported) Functional Limitations- ADL's has to use crutches Functional Limitations- Mobility/Gait limited due to use of crutches Functional Limitations- Work/School retired/disabled Functional Limitations- Recreation/ unable to take walks or go Hobbies fishing due to ankle dysfunction Personal Factors Other Personal Factors That May Effect multiple comorbidities Therapy/Recovery PT-OP-C Subjective Start: 09/28/20 08:18 Freq: Status: Active Protocol: Document 10/17/20 08:12 [facility] (Rec: 10/17/20 09:01 [facility] [id number]) OP-PT Subjective Patient Comments Patient Comments Increase in pain to point patient has put walking boot back on, having more difficulty walking. Increase in pain started Dec 4, missed appointment with Dr. Bar. ( overslept). Possibly due to increase in walking or standing, went to grocery store. PT-OP-F Manual Assessment Start: 09/28/20 08:18 Freq: Status: Active Protocol: Document 09/28/20 09:01 [facility] (Rec: 09/28/20 12:57 [facility] [id number]) Manual Assessments Joint Mobility Assessment Joint Mobility Assessment unable to assess due to high pain level PT-OP-G Mobility & Gait Start: 09/28/20 08:18 Freq: Status: Active Protocol: Document 09/28/20 09:01 [facility] (Rec: 09/28/20 12:57 [facility] [id number]) OP Gait Assessment Gait Gait Assistance Required: Independent Assistive Devices Assistive Device Axillary Crutches Gait Deviations General Gait Pattern Within Normal Limits Factors Limiting Gait Function Factors Limiting Gait Function Pain PT-OP-H Neuro Start: 09/28/20 08:18 Freq: Status: Active Protocol: Document 09/28/20 09:01 [facility] (Rec: 09/28/20 12:57 [facility] [id number]) Sensation Evaluation Gross Sensation Gross Sensation WNL PT-OP-J Posture/Palpation/Skin Start: 09/28/20 08:18 Freq: Status: Active Protocol: Document 09/28/20 09:01 [facility] (Rec: 09/28/20 12:57 [facility] [id number]) Skin Assessment Edema Assessment right foot and ankle Edema Type Pitting Edema Degree 3+ Edema Appearance Taut Subjective Edema Description Pain,Tightness Circumference Measurement 4 Location 10 cm proximal malleoli Comments left 24.8, right 27.1 3 Location 5 cm proximal malleoli Comments left 23.3, right 25.2 2 Location malleolar Comments left 28.0, right 34.2 1 Location midfoot Comments left 24.4, right 24.8 PT-OP-K Range of Motion Start: 09/28/20 08:18 Freq: Status: Active Protocol: Document 09/28/20 09:01 [facility] (Rec: 09/28/20 12:57 [facility] [id number]) Knee Goniometric Range of Motion Knee coleen Knee ROM WFL Yes Ankle and Foot Goniometric Range of Motion Ankle and Foot Right Ankle/Foot ROM WFL No Testing Position Sitting Dorsiflexion with Knee Flexed 0 Plantarflexion 35 Inversion 25 Eversion 30 Left Ankle/Foot ROM WFL Yes Ankle and Foot ROM Limitations ROM Limitations Pain,Swelling PT-OP-M Strength Start: 09/28/20 08:18 Freq: Status: Active Protocol: Document 09/28/20 09:01 [facility] (Rec: 09/28/20 12:57 [facility] [id number]) Ankle/Foot Strength Ankle and Foot Manual Muscle Testing Left Dorsiflexion (L4) 5 Normal Plantarflexion (S1) 5 Normal Inversion 5 Normal Eversion (S1) 5 Normal Right Comments not tested due to pain PT-OP-Q Treatments Start: 09/28/20 08:18 Freq: Status: Active Protocol: Document 10/17/20 08:12 [facility] (Rec: 10/17/20 09:01 [facility] [id number]) Manual Therapy Treatment Soft Tissue Mobilization right ankle Mobilization Type Manual Lymphatic Drainage Comments for edema reduction Taping 2 Body Location right foot and ankle Treatment Focus pain reduction, edema reduction, inhibition of posterior tibialis, arch sup Type of Tape Kinesio Tape Comments 2 fan strips for redema reduction, 1 Y strip for posterior tibialis inhibition, 1 I strip for arch support Self-Care/Home Management Treatment Education Patient Education Pain Management Other Education decrease activity level PT-OP-R Modalities Start: 09/28/20 08:18 Freq: Status: Active Protocol: Document 10/17/20 08:12 [facility] (Rec: 10/17/20 09:01 [facility] [id number]) Electric Stimulation Electric Stimulation IFC Body Location right foot/ankle Duration (Minutes) 10 Intensity 65 Target/Sweep Sweep High/Low High Patient Position Hooklying Combined With Heat/Cold Hot Pack Infrared Treatment Treatment Cold Laser Duration (Minutes) 6 Body Position Supine Continuous/Pulsed pulsed Program or Protocal Pulsed chronic joint pain and stiffness PT-OP-T Assessment and Plan Start: 09/28/20 08:18 Freq: Status: Active Protocol: Document 10/17/20 08:12 [facility] (Rec: 10/17/20 09:01 [facility] [id number]) Physical Therapy Assessment Goals Three Impairment gait dysfunction; requires use of crutches, unable to tolerate wt.-bearing Short Term Goal (STG) Decrease pain sufficient to allow patient to ambulate with full weight-bearing for short houshold distances with no increase in pain and no limp STG Duration 11/25/20 Senior Living Goal (LTG) Patient able to ambulate without assistive device all usual distances without an increase in pain and no limp LTG Duration 01/06/21 Two Impairment moderate edema right foot/ ankle Short Term Goal (STG) Decrease edema right foot and ankle by at least 2 cm circumferential measurements STG Duration 10/30/20 Ged Instructor Goal (LTG) Decrease swelling right foot and ankle to mild, with patient to demonstrate appropriate self-management to include elevation, ice, and use of compression. LTG Duration 01/06/21 One Impairment pain right foot/ankle 6/10 Short Term Goal (STG) Decrease pain to no greater than 4/10 right foot/ankle Ged Instructor Goal (LTG) Patient able to tolerate usual activities including ADL's and IADl's without pain greater than 2/10 on pain scale LTG Duration 01/06/21 Assessment Summary Assessment Appears patient may have overdone standing and walking, increased pain past few days, missed appointment with Dr. Bar but sees him tomorrow. urged to progress activity more slowly. Physical Therapy Plan Frequency and Duration Frequency of Treatment 2x/wk Duration of Treatment 12 weeks Plan of Care Start Date 09/28/20 Plan of Care End Date 12/27/20 Therapeutic Interventions Therapeutic Interventions Gait Training,Home Exercise Program,Manual Therapy,Patient /Caregiver Education,Self-Care /Home Management,Taping, Therapeutic Activities, Therapeutic Exercises Modalities Cold Pack/Ice Massage,Electric Stimulation,Hot Packs, Infrared Therapy,Iontophoresis Other Therapeutic Interventions No ultrasound due to pins from prior fracture Next Visit Focus/Plan Next Note Type Treatment Note Next Visit Plan Continue PT with manual techniques and modalities as needed for pain and swelling, gentle ther ex. Continue to encourage patient to progress activity more slowly when feeling good.
--- NOTE | 2020-10-20 15:59 | PT.OTN ---
Current Diagnoses Other chronic pain (10/20/20) Pain in unspecified ankle and joints of unspecified foot (10/20/20) Difficulty in walking, not elsewhere classified (10/20/20) Physical Therapy Treatment Note PT-OP-A Visit Information Start: 09/28/20 08:18 Freq: Status: Active Protocol: Document 10/20/20 08:11 [facility] (Rec: 10/20/20 08:22 [facility] [id number]) Out-Patient Physical Therapy Visit Information Visit Information Visit Type Treatment Note Visit Start Time 08:15 Visit Stop Time 09:03 Total Visit Minutes 48 Visit Number 7 Number of OIL SPREADER OPERATOR Visits 0 PT-OP-B Current Condition Start: 09/28/20 08:18 Freq: Status: Active Protocol: Document 09/28/20 09:01 [facility] (Rec: 09/28/20 09:54 [facility] [id number]) Current Condition History of Current Condition Onset Date 3 months Current Complaints acute onset right foot and ankle History of Current Condition No known cause for onset pain, using axillary crutches, has had to severely limit his activity. Patient has complicated medical history with neck surgery, back surgery, carpal tunnel syndrome, right knee pain. Was being seen for rehab of lumbar spine surgery recently, completed that rehab but has had this ongoing right ankle/ foot pain. Physician hasn't reviewed his MRI of his foot taken one month ago because when seen last week having severe right knee pain and went to ER. Diagnosed with cellulitis, finishing antibiotics today, pain decreased but persists. Prior distal tib/fib fracture requiring ORIF right ankle 1994. Prior Treatments and Tests MRI 09/05/20: posterior tibialis tendinosis, sinus tarsi syndrome Treatment Goals Patient/Caregiver Goals Decrease pain and swelling and be able to ambulate without assitive devicde Prior Functional Status Baseline Function- ADL's Independent Baseline Function- Mobility Independent Baseline Function- Gait independent no device Baseline Function- Recreation/Hobbies going to the beach with dog for walks, fishing Current Functional Impairments (Reported) Functional Limitations- ADL's has to use crutches Functional Limitations- Mobility/Gait limited due to use of crutches Functional Limitations- Work/School retired/disabled Functional Limitations- Recreation/ unable to take walks or go Hobbies fishing due to ankle dysfunction Personal Factors Other Personal Factors That May Effect multiple comorbidities Therapy/Recovery PT-OP-C Subjective Start: 09/28/20 08:18 Freq: Status: Active Protocol: Document 10/20/20 08:11 [facility]AK (Rec: 10/20/20 15:57 [facility] [id number]) OP-PT Subjective Patient Comments Patient Comments Patient reports woke late, no time to put on walking boot. Sees Dr. Bar tomorrow. Also c/o pain distal right thigh and knee unknown reason. Denies fall or other injury. Reports increase in warmth. PT-OP-F Manual Assessment Start: 09/28/20 08:18 Freq: Status: Active Protocol: Document 09/28/20 09:01 [facility] (Rec: 09/28/20 12:57 [facility] [id number]) Manual Assessments Joint Mobility Assessment Joint Mobility Assessment unable to assess due to high pain level PT-OP-G Mobility & Gait Start: 09/28/20 08:18 Freq: Status: Active Protocol: Document 09/28/20 09:01 [facility] (Rec: 09/28/20 12:57 [facility] [id number]) OP Gait Assessment Gait Gait Assistance Required: Independent Assistive Devices Assistive Device Axillary Crutches Gait Deviations General Gait Pattern Within Normal Limits Factors Limiting Gait Function Factors Limiting Gait Function Pain PT-OP-H Neuro Start: 09/28/20 08:18 Freq: Status: Active Protocol: Document 09/28/20 09:01 [facility] (Rec: 09/28/20 12:57 [facility] [id number]) Sensation Evaluation Gross Sensation Gross Sensation WNL PT-OP-J Posture/Palpation/Skin Start: 09/28/20 08:18 Freq: Status: Active Protocol: Document 09/28/20 09:01 [facility] (Rec: 09/28/20 12:57 [facility] [id number]) Skin Assessment Edema Assessment right foot and ankle Edema Type Pitting Edema Degree 3+ Edema Appearance Taut Subjective Edema Description Pain,Tightness Circumference Measurement 4 Location 10 cm proximal malleoli Comments left 24.8, right 27.1 3 Location 5 cm proximal malleoli Comments left 23.3, right 25.2 2 Location malleolar Comments left 28.0, right 34.2 1 Location midfoot Comments left 24.4, right 24.8 PT-OP-K Range of Motion Start: 09/28/20 08:18 Freq: Status: Active Protocol: Document 09/28/20 09:01 [facility] (Rec: 09/28/20 12:57 [facility] [id number]) Knee Goniometric Range of Motion Knee coleen Knee ROM WFL Yes Ankle and Foot Goniometric Range of Motion Ankle and Foot Right Ankle/Foot ROM WFL No Testing Position Sitting Dorsiflexion with Knee Flexed 0 Plantarflexion 35 Inversion 25 Eversion 30 Left Ankle/Foot ROM WFL Yes Ankle and Foot ROM Limitations ROM Limitations Pain,Swelling PT-OP-M Strength Start: 09/28/20 08:18 Freq: Status: Active Protocol: Document 09/28/20 09:01 [facility] (Rec: 09/28/20 12:57 [facility] [id number]) Ankle/Foot Strength Ankle and Foot Manual Muscle Testing Left Dorsiflexion (L4) 5 Normal Plantarflexion (S1) 5 Normal Inversion 5 Normal Eversion (S1) 5 Normal Right Comments not tested due to pain PT-OP-Q Treatments Start: 09/28/20 08:18 Freq: Status: Active Protocol: Document 10/20/20 08:11 [facility] (Rec: 10/20/20 08:22 [facility] [id number]) Therapeutic Exercises Supine Exercises ankle inv/ev Resistance right Reps/Minutes 10x Ankle Pumps Side right Reps/Minutes 10x Manual Therapy Treatment Soft Tissue Mobilization right ankle Mobilization Type Manual Lymphatic Drainage Comments for edema reduction Taping 2 Comments Not done due to patient seeing Dr. Bar tomorrow PT-OP-R Modalities Start: 09/28/20 08:18 Freq: Status: Active Protocol: Document 10/20/20 08:11 [facility] (Rec: 10/20/20 08:22 [facility] [id number]) Electric Stimulation Electric Stimulation IFC Body Location right foot/ankle Duration (Minutes) 10 Intensity 65 Target/Sweep Sweep High/Low High Patient Position Hooklying Combined With Heat/Cold Cold Pack Infrared Treatment Treatment Cold Laser Duration (Minutes) 6 Body Position Supine Continuous/Pulsed pulsed Program or Protocal Pulsed chronic joint pain and stiffness PT-OP-T Assessment and Plan Start: 09/28/20 08:18 Freq: Status: Active Protocol: Document 10/20/20 08:11 [facility] (Rec: 10/20/20 08:22 [facility] [id number]) Physical Therapy Assessment Goals Three Impairment gait dysfunction; requires use of crutches, unable to tolerate wt.-bearing Short Term Goal (STG) Decrease pain sufficient to allow patient to ambulate with full weight-bearing for short houshold distances with no increase in pain and no limp STG Duration 11/25/20 Planning Aide Goal (LTG) Patient able to ambulate without assistive device all usual distances without an increase in pain and no limp LTG Duration 01/06/21 Two Impairment moderate edema right foot/ ankle Short Term Goal (STG) Decrease edema right foot and ankle by at least 2 cm circumferential measurements STG Duration 10/30/20 Planning Aide Goal (LTG) Decrease swelling right foot and ankle to mild, with patient to demonstrate appropriate self-management to include elevation, ice, and use of compression. LTG Duration 01/06/21 One Impairment pain right foot/ankle 6/10 Short Term Goal (STG) Decrease pain to no greater than 4/10 right foot/ankle Usp Goal (LTG) Patient able to tolerate usual activities including ADL's and IADl's without pain greater than 2/10 on pain scale LTG Duration 01/06/21 Assessment Summary Assessment Increased swelling in ankle today, patient did not wear walking boot due to waking late, time constraints. Using crutches today. No kinesiotape due to seeing Dr. Bar tomorrow. Decreased pain after treatment, but edema persists. Fit with size G Tubigrip for compression at ankle to decreased edema as patient unable to afford purchasing compression stocking as recommended. Right knee mildly warm, no redness or swelling. Tender to palpation distal right thigh and knee. Physical Therapy Plan Frequency and Duration Frequency of Treatment 2x/wk Duration of Treatment 12 weeks Plan of Care Start Date 09/28/20 Plan of Care End Date 12/27/20 Therapeutic Interventions Therapeutic Interventions Gait Training,Home Exercise Program,Manual Therapy,Patient /Caregiver Education,Self-Care /Home Management,Taping, Therapeutic Activities, Therapeutic Exercises Modalities Cold Pack/Ice Massage,Electric Stimulation,Hot Packs, Infrared Therapy,Iontophoresis Other Therapeutic Interventions No ultrasound due to pins from prior fracture Next Visit Focus/Plan Next Note Type Treatment Note Next Visit Plan Continue PT per POC, nding any further recommendations from Dr. Bar after patient sees tomorrow.
--- NOTE | 2020-10-24 10:10 | PT.OTN ---
Current Diagnoses Other chronic pain (10/24/20) Pain in unspecified ankle and joints of unspecified foot (10/24/20) Difficulty in walking, not elsewhere classified (10/24/20) Physical Therapy Treatment Note PT-OP-A Visit Information Start: 09/28/20 08:18 Freq: Status: Active Protocol: Document 10/24/20 08:16 SAK (Rec: 10/24/20 08:32 SAK [id number]) Out-Patient Physical Therapy Visit Information Visit Information Visit Type Treatment Note Visit Start Time 08:15 Visit Stop Time 09:09 Total Visit Minutes 54 Visit Number 7 Number of ANESTHESIA TECHNICIAN Visits 0 PT-OP-B Current Condition Start: 09/28/20 08:18 Freq: Status: Active Protocol: Document 09/28/20 09:01 SAK (Rec: 09/28/20 09:54 SAK [id number]) Current Condition History of Current Condition Onset Date 3 months Current Complaints acute onset right foot and ankle History of Current Condition No known cause for onset pain, using axillary crutches, has had to severely limit his activity. Patient has complicated medical history with neck surgery, back surgery, carpal tunnel syndrome, right knee pain. Was being seen for rehab of lumbar spine surgery recently, completed that rehab but has had this ongoing right ankle/ foot pain. Physician hasn't reviewed his MRI of his foot taken one month ago because when seen last week having severe right knee pain and went to ER. Diagnosed with cellulitis, finishing antibiotics today, pain decreased but persists. Prior distal tib/fib fracture requiring ORIF right ankle 1994. Prior Treatments and Tests MRI 09/05/20: posterior tibialis tendinosis, sinus tarsi syndrome Treatment Goals Patient/Caregiver Goals Decrease pain and swelling and be able to ambulate without assitive devicde Prior Functional Status Baseline Function- ADL's Independent Baseline Function- Mobility Independent Baseline Function- Gait independent no device Baseline Function- Recreation/Hobbies going to the beach with dog for walks, fishing Current Functional Impairments (Reported) Functional Limitations- ADL's has to use crutches Functional Limitations- Mobility/Gait limited due to use of crutches Functional Limitations- Work/School retired/disabled Functional Limitations- Recreation/ unable to take walks or go Hobbies fishing due to ankle dysfunction Personal Factors Other Personal Factors That May Effect multiple comorbidities Therapy/Recovery PT-OP-C Subjective Start: 09/28/20 08:18 Freq: Status: Active Protocol: Document 10/24/20 08:16 [facility] (Rec: 10/24/20 08:32 [facility] [id number]) OP-PT Subjective Patient Comments Patient Comments Can't get the swelling to stay down. Was decreased after appointment seeing Dr. Bar, but didn't stay down; as soon as upright. Feels better after PT sessions also though he had a bad reaction to the Tubigrip and couldn't wear. Dr. Bar's note reports patient will be starting on another round of Keflex due to not feeling cellulitis fully gone but patient doesn't have a memory of this. Patient to check with pharmacy to get antibiotic prescription. Agreeable to consult with Huyen at [facility] regarding a compression stocking for his right foot and ankle ( previously has said he has one , but nothing he has worn to PT has been an actual compression stocking). PT-OP-F Manual Assessment Start: 09/28/20 08:18 Freq: Status: Active Protocol: Document 09/28/20 09:01 [facility] (Rec: 09/28/20 12:57 [facility] [id number]) Manual Assessments Joint Mobility Assessment Joint Mobility Assessment unable to assess due to high pain level PT-OP-G Mobility & Gait Start: 09/28/20 08:18 Freq: Status: Active Protocol: Document 09/28/20 09:01 [facility] (Rec: 09/28/20 12:57 [facility] [id number]) OP Gait Assessment Gait Gait Assistance Required: Independent Assistive Devices Assistive Device Axillary Crutches Gait Deviations General Gait Pattern Within Normal Limits Factors Limiting Gait Function Factors Limiting Gait Function Pain PT-OP-H Neuro Start: 09/28/20 08:18 Freq: Status: Active Protocol: Document 09/28/20 09:01 [facility] (Rec: 09/28/20 12:57 [facility] [id number]) Sensation Evaluation Gross Sensation Gross Sensation WNL PT-OP-J Posture/Palpation/Skin Start: 09/28/20 08:18 Freq: Status: Active Protocol: Document 09/28/20 09:01 [facility] (Rec: 09/28/20 12:57 [facility] [id number]) Skin Assessment Edema Assessment right foot and ankle Edema Type Pitting Edema Degree 3+ Edema Appearance Taut Subjective Edema Description Pain,Tightness Circumference Measurement 4 Location 10 cm proximal malleoli Comments left 24.8, right 27.1 3 Location 5 cm proximal malleoli Comments left 23.3, right 25.2 2 Location malleolar Comments left 28.0, right 34.2 1 Location midfoot Comments left 24.4, right 24.8 PT-OP-K Range of Motion Start: 09/28/20 08:18 Freq: Status: Active Protocol: Document 09/28/20 09:01 [facility] (Rec: 09/28/20 12:57 [facility] [id number]) Knee Goniometric Range of Motion Knee coleen Knee ROM WFL Yes Ankle and Foot Goniometric Range of Motion Ankle and Foot Right Ankle/Foot ROM WFL No Testing Position Sitting Dorsiflexion with Knee Flexed 0 Plantarflexion 35 Inversion 25 Eversion 30 Left Ankle/Foot ROM WFL Yes Ankle and Foot ROM Limitations ROM Limitations Pain,Swelling PT-OP-M Strength Start: 09/28/20 08:18 Freq: Status: Active Protocol: Document 09/28/20 09:01 [facility] (Rec: 09/28/20 12:57 [facility] [id number]) Ankle/Foot Strength Ankle and Foot Manual Muscle Testing Left Dorsiflexion (L4) 5 Normal Plantarflexion (S1) 5 Normal Inversion 5 Normal Eversion (S1) 5 Normal Right Comments not tested due to pain PT-OP-Q Treatments Start: 09/28/20 08:18 Freq: Status: Active Protocol: Document 10/24/20 08:16 [facility] (Rec: 10/24/20 08:32 [facility] [id number]) Therapeutic Exercises Sitting Exercises BAPS Sitting Exercise Name df/pf/inv/ev Equipment Used L3 Manual Therapy Treatment Soft Tissue Mobilization right ankle Mobilization Type Manual Lymphatic Drainage Comments for edema reduction Taping 2 Body Location right foot and ankle Treatment Focus pain reduction, edema reduction, inhibition of posterior tibialis, arch sup Type of Tape Kinesio Tape Comments Not done due to patient seeing Dr. Bar tomorrow PT-OP-R Modalities Start: 09/28/20 08:18 Freq: Status: Active Protocol: Document 10/24/20 08:16 [facility] (Rec: 10/24/20 08:32 [facility] [id number]) Electric Stimulation Electric Stimulation IFC Body Location right foot/ankle Duration (Minutes) 10 Intensity 65 Target/Sweep Sweep High/Low High Patient Position Hooklying Combined With Heat/Cold Cold Pack Comments cryocuff Infrared Treatment Treatment Cold Laser Duration (Minutes) 6 Body Position Supine Continuous/Pulsed pulsed Program or Protocal Pulsed chronic joint pain and stiffness Comments 6 locations right foot/ankle PT-OP-T Assessment and Plan Start: 09/28/20 08:18 Freq: Status: Active Protocol: Document 10/24/20 08:16 [facility] (Rec: 10/24/20 08:32 [facility] [id number]) Physical Therapy Assessment Goals Three Impairment gait dysfunction; requires use of crutches, unable to tolerate wt.-bearing Short Term Goal (STG) Decrease pain sufficient to allow patient to ambulate with full weight-bearing for short houshold distances with no increase in pain and no limp STG Duration 11/25/20 Shelter Goal (LTG) Patient able to ambulate without assistive device all usual distances without an increase in pain and no limp LTG Duration 01/06/21 Two Impairment moderate edema right foot/ ankle Short Term Goal (STG) Decrease edema right foot and ankle by at least 2 cm circumferential measurements STG Duration 10/30/20 Energy And Sustainability Manager Goal (LTG) Decrease swelling right foot and ankle to mild, with patient to demonstrate appropriate self-management to include elevation, ice, and use of compression. LTG Duration 01/06/21 One Impairment pain right foot/ankle 6/10 Short Term Goal (STG) Decrease pain to no greater than 4/10 right foot/ankle Energy And Sustainability Manager Goal (LTG) Patient able to tolerate usual activities including ADL's and IADl's without pain greater than 2/10 on pain scale LTG Duration 01/06/21 Assessment Summary Assessment Decreased edema, increased ROM and decreased pain after PT sessions but not maintained; patient requires the use of compression stocking. He agrees to go to [facility] today to obtain compression stocking. Physical Therapy Plan Frequency and Duration Frequency of Treatment 2x/wk Duration of Treatment 12 weeks Plan of Care Start Date 09/28/20 Plan of Care End Date 12/27/20 Therapeutic Interventions Therapeutic Interventions Gait Training,Home Exercise Program,Manual Therapy,Patient /Caregiver Education,Self-Care /Home Management,Taping, Therapeutic Activities, Therapeutic Exercises Modalities Cold Pack/Ice Massage,Electric Stimulation,Hot Packs, Infrared Therapy,Iontophoresis Other Therapeutic Interventions No ultrasound due to pins from prior fracture Next Visit Focus/Plan Next Note Type Treatment Note Next Visit Plan Patient to consult with [facility] regartding compression stocking. Gentle ther ex, manual techniques, modalities to decrease pain and imnprove his mobility and function
--- NOTE | 2020-10-27 10:57 | PT.OTN ---
Current Diagnoses Other chronic pain (10/27/20) Pain in unspecified ankle and joints of unspecified foot (10/27/20) Difficulty in walking, not elsewhere classified (10/27/20) Physical Therapy Treatment Note PT-OP-A Visit Information Start: 09/28/20 08:18 Freq: Status: Active Protocol: Document 10/27/20 08:11 SAK (Rec: 10/27/20 08:19 SAK [id number]) Out-Patient Physical Therapy Visit Information Visit Information Visit Type Treatment Note Visit Start Time 08:15 Visit Stop Time 09:09 Total Visit Minutes 54 Visit Number 8 Number of MANAGER LAND Visits 0 PT-OP-B Current Condition Start: 09/28/20 08:18 Freq: Status: Active Protocol: Document 09/28/20 09:01 SAK (Rec: 09/28/20 09:54 SAK [id number]) Current Condition History of Current Condition Onset Date 3 months Current Complaints acute onset right foot and ankle History of Current Condition No known cause for onset pain, using axillary crutches, has had to severely limit his activity. Patient has complicated medical history with neck surgery, back surgery, carpal tunnel syndrome, right knee pain. Was being seen for rehab of lumbar spine surgery recently, completed that rehab but has had this ongoing right ankle/ foot pain. Physician hasn't reviewed his MRI of his foot taken one month ago because when seen last week having severe right knee pain and went to ER. Diagnosed with cellulitis, finishing antibiotics today, pain decreased but persists. Prior distal tib/fib fracture requiring ORIF right ankle 1994. Prior Treatments and Tests MRI 09/05/20: posterior tibialis tendinosis, sinus tarsi syndrome Treatment Goals Patient/Caregiver Goals Decrease pain and swelling and be able to ambulate without assitive devicde Prior Functional Status Baseline Function- ADL's Independent Baseline Function- Mobility Independent Baseline Function- Gait independent no device Baseline Function- Recreation/Hobbies going to the beach with dog for walks, fishing Current Functional Impairments (Reported) Functional Limitations- ADL's has to use crutches Functional Limitations- Mobility/Gait limited due to use of crutches Functional Limitations- Work/School retired/disabled Functional Limitations- Recreation/ unable to take walks or go Hobbies fishing due to ankle dysfunction Personal Factors Other Personal Factors That May Effect multiple comorbidities Therapy/Recovery PT-OP-C Subjective Start: 09/28/20 08:18 Freq: Status: Active Protocol: Document 10/27/20 08:11 SAK (Rec: 10/27/20 08:19 [facility] [id number]) OP-PT Subjective Patient Comments Patient Comments Tried to get compression stocking, will do right after PT today. Swelling has been down in AM past couple days but increases as soon as he stands or walks. PT-OP-F Manual Assessment Start: 09/28/20 08:18 Freq: Status: Active Protocol: Document 09/28/20 09:01 SAK (Rec: 09/28/20 12:57 [facility] [id number]) Manual Assessments Joint Mobility Assessment Joint Mobility Assessment unable to assess due to high pain level PT-OP-G Mobility & Gait Start: 09/28/20 08:18 Freq: Status: Active Protocol: Document 09/28/20 09:01 SAK (Rec: 09/28/20 12:57 [facility] [id number]) OP Gait Assessment Gait Gait Assistance Required: Independent Assistive Devices Assistive Device Axillary Crutches Gait Deviations General Gait Pattern Within Normal Limits Factors Limiting Gait Function Factors Limiting Gait Function Pain PT-OP-H Neuro Start: 09/28/20 08:18 Freq: Status: Active Protocol: Document 09/28/20 09:01 SAK (Rec: 09/28/20 12:57 [facility] [id number]) Sensation Evaluation Gross Sensation Gross Sensation WNL PT-OP-J Posture/Palpation/Skin Start: 09/28/20 08:18 Freq: Status: Active Protocol: Document 09/28/20 09:01 SAK (Rec: 09/28/20 12:57 [facility] [id number]) Skin Assessment Edema Assessment right foot and ankle Edema Type Pitting Edema Degree 3+ Edema Appearance Taut Subjective Edema Description Pain,Tightness Circumference Measurement 4 Location 10 cm proximal malleoli Comments left 24.8, right 27.1 3 Location 5 cm proximal malleoli Comments left 23.3, right 25.2 2 Location malleolar Comments left 28.0, right 34.2 1 Location midfoot Comments left 24.4, right 24.8 PT-OP-K Range of Motion Start: 09/28/20 08:18 Freq: Status: Active Protocol: Document 09/28/20 09:01 SAK (Rec: 09/28/20 12:57 [facility] [id number]) Knee Goniometric Range of Motion Knee coleen Knee ROM WFL Yes Ankle and Foot Goniometric Range of Motion Ankle and Foot Right Ankle/Foot ROM WFL No Testing Position Sitting Dorsiflexion with Knee Flexed 0 Plantarflexion 35 Inversion 25 Eversion 30 Left Ankle/Foot ROM WFL Yes Ankle and Foot ROM Limitations ROM Limitations Pain,Swelling PT-OP-M Strength Start: 09/28/20 08:18 Freq: Status: Active Protocol: Document 09/28/20 09:01 [facility] (Rec: 09/28/20 12:57 [facility] [id number]) Ankle/Foot Strength Ankle and Foot Manual Muscle Testing Left Dorsiflexion (L4) 5 Normal Plantarflexion (S1) 5 Normal Inversion 5 Normal Eversion (S1) 5 Normal Right Comments not tested due to pain PT-OP-Q Treatments Start: 09/28/20 08:18 Freq: Status: Active Protocol: Document 10/27/20 08:11 [facility] (Rec: 10/27/20 08:19 [facility] [id number]) Therapeutic Exercises Sitting Exercises BAPS Sitting Exercise Name df/pf/inv/ev Equipment Used L3 Manual Therapy Treatment Soft Tissue Mobilization right ankle Mobilization Type Manual Lymphatic Drainage Comments for edema reduction Taping 2 Body Location right foot and ankle Treatment Focus pain reduction, edema reduction, inhibition of posterior tibialis, arch sup Type of Tape Kinesio Tape Comments Not done due to patient seeing Dr. Bar tomorrow PT-OP-R Modalities Start: 09/28/20 08:18 Freq: Status: Active Protocol: Document 10/27/20 08:11 [facility] (Rec: 10/27/20 08:19 [facility] [id number]) Electric Stimulation Electric Stimulation IFC Body Location right foot/ankle Duration (Minutes) 10 Intensity 65 Target/Sweep Sweep High/Low High Patient Position Hooklying Combined With Heat/Cold Cold Pack Comments cryocuff Infrared Treatment Treatment Cold Laser Duration (Minutes) 6 Body Position Supine Continuous/Pulsed pulsed Program or Protocal Pulsed chronic joint pain and stiffness Comments 6 locations right foot/ankle PT-OP-T Assessment and Plan Start: 09/28/20 08:18 Freq: Status: Active Protocol: Document 10/27/20 08:11 [facility] (Rec: 10/27/20 08:19 [facility] [id number]) Physical Therapy Assessment Goals Three Impairment gait dysfunction; requires use of crutches, unable to tolerate wt.-bearing Short Term Goal (STG) Decrease pain sufficient to allow patient to ambulate with full weight-bearing for short houshold distances with no increase in pain and no limp STG Duration 11/25/20 Skilled Nursing Goal (LTG) Patient able to ambulate without assistive device all usual distances without an increase in pain and no limp LTG Duration 01/06/21 Two Impairment moderate edema right foot/ ankle Short Term Goal (STG) Decrease edema right foot and ankle by at least 2 cm circumferential measurements STG Duration 10/30/20 Medical Technologist Blood Bank Goal (LTG) Decrease swelling right foot and ankle to mild, with patient to demonstrate appropriate self-management to include elevation, ice, and use of compression. LTG Duration 01/06/21 One Impairment pain right foot/ankle 6/10 Short Term Goal (STG) Decrease pain to no greater than 4/10 right foot/ankle Medical Technologist Blood Bank Goal (LTG) Patient able to tolerate usual activities including ADL's and IADl's without pain greater than 2/10 on pain scale LTG Duration 01/06/21 Assessment Summary Assessment Decreased edema and pain, still wearing walking boot. Going to get compression stocking right after PT today; was wearing Tricofix and tubigrip as issued by PT but demonstrates good understanding of need for compression stocking. Physical Therapy Plan Frequency and Duration Frequency of Treatment 2x/wk Duration of Treatment 12 weeks Plan of Care Start Date 09/28/20 Plan of Care End Date 12/27/20 Therapeutic Interventions Therapeutic Interventions Gait Training,Home Exercise Program,Manual Therapy,Patient /Caregiver Education,Self-Care /Home Management,Taping, Therapeutic Activities, Therapeutic Exercises Modalities Cold Pack/Ice Massage,Electric Stimulation,Hot Packs, Infrared Therapy,Iontophoresis Other Therapeutic Interventions No ultrasound due to pins from prior fracture Next Visit Focus/Plan Next Note Type Treatment Note Next Visit Plan Patient to get compression stocking today; evaluate response. Continue gentle ther ex, manual techniques, and modalities to address PT goals.
--- NOTE | 2020-10-31 10:15 | PT.OTN ---
Current Diagnoses Other chronic pain (10/31/20) Pain in unspecified ankle and joints of unspecified foot (10/31/20) Difficulty in walking, not elsewhere classified (10/31/20) Physical Therapy Treatment Note PT-OP-A Visit Information Start: 09/28/20 08:18 Freq: Status: Active Protocol: Document 10/31/20 11:14 MA (Rec: 10/31/20 11:29 MA [id number]) Out-Patient Physical Therapy Visit Information Visit Information Visit Type Treatment Note Visit Start Time 09:25 Visit Stop Time 10:10 Total Visit Minutes 45 Visit Number 9 Number of [employer] SPECIALIST Visits 1 PT-OP-B Current Condition Start: 09/28/20 08:18 Freq: Status: Active Protocol: Document 09/28/20 09:01 SAK (Rec: 09/28/20 09:54 SAK [id number]) Current Condition History of Current Condition Onset Date 3 months Current Complaints acute onset right foot and ankle History of Current Condition No known cause for onset pain, using axillary crutches, has had to severely limit his activity. Patient has complicated medical history with neck surgery, back surgery, carpal tunnel syndrome, right knee pain. Was being seen for rehab of lumbar spine surgery recently, completed that rehab but has had this ongoing right ankle/ foot pain. Physician hasn't reviewed his MRI of his foot taken one month ago because when seen last week having severe right knee pain and went to ER. Diagnosed with cellulitis, finishing antibiotics today, pain decreased but persists. Prior distal tib/fib fracture requiring ORIF right ankle 1994. Prior Treatments and Tests MRI 09/05/20: posterior tibialis tendinosis, sinus tarsi syndrome Treatment Goals Patient/Caregiver Goals Decrease pain and swelling and be able to ambulate without assitive devicde Prior Functional Status Baseline Function- ADL's Independent Baseline Function- Mobility Independent Baseline Function- Gait independent no device Baseline Function- Recreation/Hobbies going to the beach with dog for walks, fishing Current Functional Impairments (Reported) Functional Limitations- ADL's has to use crutches Functional Limitations- Mobility/Gait limited due to use of crutches Functional Limitations- Work/School retired/disabled Functional Limitations- Recreation/ unable to take walks or go Hobbies fishing due to ankle dysfunction Personal Factors Other Personal Factors That May Effect multiple comorbidities Therapy/Recovery PT-OP-C Subjective Start: 09/28/20 08:18 Freq: Status: Active Protocol: Document 10/31/20 11:14 MA (Rec: 10/31/20 11:29 MA [id number]) OP-PT Subjective Patient Comments Patient Comments Compression stocking ordered, but will not arrive until Nov 13. Saturday visit with showed no tears or breaks on MRI. Sees 11/02 again and hopes he will do acupuncture again. PT-OP-F Manual Assessment Start: 09/28/20 08:18 Freq: Status: Active Protocol: Document 09/28/20 09:01 SAK (Rec: 09/28/20 12:57 SAK [id number]) Manual Assessments Joint Mobility Assessment Joint Mobility Assessment unable to assess due to high pain level PT-OP-G Mobility & Gait Start: 09/28/20 08:18 Freq: Status: Active Protocol: Document 09/28/20 09:01 SAK (Rec: 09/28/20 12:57 SAK [id number]) OP Gait Assessment Gait Gait Assistance Required: Independent Assistive Devices Assistive Device Axillary Crutches Gait Deviations General Gait Pattern Within Normal Limits Factors Limiting Gait Function Factors Limiting Gait Function Pain PT-OP-H Neuro Start: 09/28/20 08:18 Freq: Status: Active Protocol: Document 09/28/20 09:01 SAK (Rec: 09/28/20 12:57 SAK [id number]) Sensation Evaluation Gross Sensation Gross Sensation WNL PT-OP-J Posture/Palpation/Skin Start: 09/28/20 08:18 Freq: Status: Active Protocol: Document 09/28/20 09:01 SAK (Rec: 09/28/20 12:57 SAK [id number]) Skin Assessment Edema Assessment right foot and ankle Edema Type Pitting Edema Degree 3+ Edema Appearance Taut Subjective Edema Description Pain,Tightness Circumference Measurement 4 Location 10 cm proximal malleoli Comments left 24.8, right 27.1 3 Location 5 cm proximal malleoli Comments left 23.3, right 25.2 2 Location malleolar Comments left 28.0, right 34.2 1 Location midfoot Comments left 24.4, right 24.8 PT-OP-K Range of Motion Start: 09/28/20 08:18 Freq: Status: Active Protocol: Document 09/28/20 09:01 SAK (Rec: 09/28/20 12:57 [facility] [id number]) Knee Goniometric Range of Motion Knee coleen Knee ROM WFL Yes Ankle and Foot Goniometric Range of Motion Ankle and Foot Right Ankle/Foot ROM WFL No Testing Position Sitting Dorsiflexion with Knee Flexed 0 Plantarflexion 35 Inversion 25 Eversion 30 Left Ankle/Foot ROM WFL Yes Ankle and Foot ROM Limitations ROM Limitations Pain,Swelling PT-OP-M Strength Start: 09/28/20 08:18 Freq: Status: Active Protocol: Document 09/28/20 09:01 [facility] (Rec: 09/28/20 12:57 [facility] [id number]) Ankle/Foot Strength Ankle and Foot Manual Muscle Testing Left Dorsiflexion (L4) 5 Normal Plantarflexion (S1) 5 Normal Inversion 5 Normal Eversion (S1) 5 Normal Right Comments not tested due to pain PT-OP-Q Treatments Start: 09/28/20 08:18 Freq: Status: Active Protocol: Document 10/31/20 11:14 MA (Rec: 10/31/20 11:29 MA [email or web address]) Therapeutic Exercises Supine Exercises Ankle Pumps Side bilateral Reps/Minutes 10x Comments decreased ROM due to swelling Sitting Exercises BAPS Sitting Exercise Name df/pf/inv/ev Equipment Used BOSU Comments bosu used today due to BAPS unavailable Manual Therapy Treatment Soft Tissue Mobilization right ankle Body Location R ankle and plantar fascia Mobilization Type Rolling,Sustained Pressure, Trigger Point Release Intensity/Depth Deep Body Position Supine Comments R posterior tibialis, gastroc, plantar fascia. Added using a tennis ball under arch of foot while seated to HEP PT-OP-R Modalities Start: 09/28/20 08:18 Freq: Status: Active Protocol: Document 10/31/20 11:14 MA (Rec: 10/31/20 11:29 MA [email or web address]) Hot Pack/Cold Pack Treatment right foot/ankle Location R medial/lateral distal malleolus and up posterior tib Patient Position Hooklying Treatment Duration (minutes) 10 Comments Ice Massage PT-OP-T Assessment and Plan Start: 09/28/20 08:18 Freq: Status: Active Protocol: Document 10/31/20 11:14 MA (Rec: 10/31/20 11:29 MA [email or web address]) Physical Therapy Assessment Goals Three Impairment gait dysfunction; requires use of crutches, unable to tolerate wt.-bearing Short Term Goal (STG) Decrease pain sufficient to allow patient to ambulate with full weight-bearing for short houshold distances with no increase in pain and no limp STG Duration 11/25/20 [facility] Goal (LTG) Patient able to ambulate without assistive device all usual distances without an increase in pain and no limp LTG Duration 01/06/21 Two Impairment moderate edema right foot/ ankle Short Term Goal (STG) Decrease edema right foot and ankle by at least 2 cm circumferential measurements STG Duration 10/30/20 [employer] Worker Goal (LTG) Decrease swelling right foot and ankle to mild, with patient to demonstrate appropriate self-management to include elevation, ice, and use of compression. LTG Duration 01/06/21 One Impairment pain right foot/ankle 6/10 Short Term Goal (STG) Decrease pain to no greater than 4/10 right foot/ankle Campaign Worker Goal (LTG) Patient able to tolerate usual activities including ADL's and IADl's without pain greater than 2/10 on pain scale LTG Duration 01/06/21 Assessment Summary Assessment Pt arrived wearing walking boot and using crutches. Open wound medial ankle- pt states it's due to scratching where the tape was. Pt had some pain /soreness when initially starting PF/DF on bosu today. Pain decreased as muscles stretched out with movement. Added rolling of plantar fascia over tennis ball to HEP due to complaints of pain under foot with good results. R calf warm to touch today. Performed ice massage over areas with swelling since cold laser is under maintenance. Physical Therapy Plan Frequency and Duration Frequency of Treatment 2x/wk Duration of Treatment 12 weeks Plan of Care Start Date 09/28/20 Plan of Care End Date 12/27/20 Therapeutic Interventions Therapeutic Interventions Gait Training,Home Exercise Program,Manual Therapy,Patient /Caregiver Education,Self-Care /Home Management,Taping, Therapeutic Activities, Therapeutic Exercises Modalities Cold Pack/Ice Massage,Electric Stimulation,Hot Packs, Infrared Therapy,Iontophoresis Other Therapeutic Interventions No ultrasound due to pins from prior fracture Next Visit Focus/Plan Next Note Type Treatment Note Next Visit Plan Evaluate reponse to compression stocking when pt receives it. Continue gentle ther ex, manual techniques, and modalities to address PT goals.
--- NOTE | 2020-11-08 08:42 | PT-OP ANOTE ---
DNS for 8:15 PT appointment
--- NOTE | 2020-11-08 15:13 | PT.OTN ---
Current Diagnoses Other chronic pain (11/08/20) Pain in unspecified ankle and joints of unspecified foot (11/08/20) Difficulty in walking, not elsewhere classified (11/08/20) Physical Therapy Treatment Note PT-OP-A Visit Information Start: 09/28/20 08:18 Freq: Status: Active Protocol: Document 11/08/20 11:18 SAK (Rec: 11/08/20 12:02 SAK [id number]) Out-Patient Physical Therapy Visit Information Visit Information Visit Type Treatment Note Visit Start Time 11:18 Visit Stop Time 12:12 Total Visit Minutes 54 Visit Number 10 PT-OP-B Current Condition Start: 09/28/20 08:18 Freq: Status: Active Protocol: Document 09/28/20 09:01 SAK (Rec: 09/28/20 09:54 SAK [id number]) Current Condition History of Current Condition Onset Date 3 months Current Complaints acute onset right foot and ankle History of Current Condition No known cause for onset pain, using axillary crutches, has had to severely limit his activity. Patient has complicated medical history with neck surgery, back surgery, carpal tunnel syndrome, right knee pain. Was being seen for rehab of lumbar spine surgery recently, completed that rehab but has had this ongoing right ankle/ foot pain. Physician hasn't reviewed his MRI of his foot taken one month ago because when seen last week having severe right knee pain and went to ER. Diagnosed with cellulitis, finishing antibiotics today, pain decreased but persists. Prior distal tib/fib fracture requiring ORIF right ankle 1994. Prior Treatments and Tests MRI 09/05/20: posterior tibialis tendinosis, sinus tarsi syndrome Treatment Goals Patient/Caregiver Goals Decrease pain and swelling and be able to ambulate without assitive devicde Prior Functional Status Baseline Function- ADL's Independent Baseline Function- Mobility Independent Baseline Function- Gait independent no device Baseline Function- Recreation/Hobbies going to the beach with dog for walks, fishing Current Functional Impairments (Reported) Functional Limitations- ADL's has to use crutches Functional Limitations- Mobility/Gait limited due to use of crutches Functional Limitations- Work/School retired/disabled Functional Limitations- Recreation/ unable to take walks or go Hobbies fishing due to ankle dysfunction Personal Factors Other Personal Factors That May Effect multiple comorbidities Therapy/Recovery PT-OP-C Subjective Start: 09/28/20 08:18 Freq: Status: Active Protocol: Document 11/08/20 11:18 [facility] (Rec: 11/08/20 12:02 [facility] [id number]) OP-PT Subjective Patient Comments Patient Comments Swelling down, pain down 2-3/ 10, trying to walk without walking boot or crutches. Feels weak. Doing ankle ROM. States his back has been cranky from walking with crutches so trying to take it easy walking without device or boot. PT-OP-F Manual Assessment Start: 09/28/20 08:18 Freq: Status: Active Protocol: Document 09/28/20 09:01 [facility] (Rec: 09/28/20 12:57 [facility] [id number]) Manual Assessments Joint Mobility Assessment Joint Mobility Assessment unable to assess due to high pain level PT-OP-G Mobility & Gait Start: 09/28/20 08:18 Freq: Status: Active Protocol: Document 09/28/20 09:01 [facility] (Rec: 09/28/20 12:57 [facility] [id number]) OP Gait Assessment Gait Gait Assistance Required: Independent Assistive Devices Assistive Device Axillary Crutches Gait Deviations General Gait Pattern Within Normal Limits Factors Limiting Gait Function Factors Limiting Gait Function Pain PT-OP-H Neuro Start: 09/28/20 08:18 Freq: Status: Active Protocol: Document 09/28/20 09:01 [facility] (Rec: 09/28/20 12:57 [facility] [id number]) Sensation Evaluation Gross Sensation Gross Sensation WNL PT-OP-J Posture/Palpation/Skin Start: 09/28/20 08:18 Freq: Status: Active Protocol: Document 09/28/20 09:01 [facility] (Rec: 09/28/20 12:57 [facility] [id number]) Skin Assessment Edema Assessment right foot and ankle Edema Type Pitting Edema Degree 3+ Edema Appearance Taut Subjective Edema Description Pain,Tightness Circumference Measurement 4 Location 10 cm proximal malleoli Comments left 24.8, right 27.1 3 Location 5 cm proximal malleoli Comments left 23.3, right 25.2 2 Location malleolar Comments left 28.0, right 34.2 1 Location midfoot Comments left 24.4, right 24.8 PT-OP-K Range of Motion Start: 09/28/20 08:18 Freq: Status: Active Protocol: Document 09/28/20 09:01 [facility] (Rec: 09/28/20 12:57 [facility] [id number]) Knee Goniometric Range of Motion Knee coleen Knee ROM WFL Yes Ankle and Foot Goniometric Range of Motion Ankle and Foot Right Ankle/Foot ROM WFL No Testing Position Sitting Dorsiflexion with Knee Flexed 0 Plantarflexion 35 Inversion 25 Eversion 30 Left Ankle/Foot ROM WFL Yes Ankle and Foot ROM Limitations ROM Limitations Pain,Swelling PT-OP-M Strength Start: 09/28/20 08:18 Freq: Status: Active Protocol: Document 09/28/20 09:01 [facility] (Rec: 09/28/20 12:57 [facility] [id number]) Ankle/Foot Strength Ankle and Foot Manual Muscle Testing Left Dorsiflexion (L4) 5 Normal Plantarflexion (S1) 5 Normal Inversion 5 Normal Eversion (S1) 5 Normal Right Comments not tested due to pain PT-OP-Q Treatments Start: 09/28/20 08:18 Freq: Status: Active Protocol: Document 11/08/20 11:18 [facility] (Rec: 11/08/20 12:02 [facility] [id number]) Cardio Equipment Recumbent Elliptical (BiodAlmashopping) Duration (Minutes) 10 Resistance 1 Seat Position 11 Other 5 min UE's and LE's, 5 min LE' s only Therapeutic Exercises Sitting Exercises BAPS Sitting Exercise Name df/pf/inv/ev Equipment Used L3 Gait Training Gait Activity 1 Description level surface Device Used none Level of Assistance verbal cues Distance/Duration 50x2 Treatment Focus upright posture, small steps Manual Therapy Treatment Soft Tissue Mobilization right ankle Body Location R ankle and plantar fascia Mobilization Type Rolling,Sustained Pressure, Trigger Point Release Intensity/Depth Deep Body Position Supine Comments R posterior tibialis, gastroc, plantar fascia. Added using a tennis ball under arch of foot while seated to HEP PT-OP-R Modalities Start: 09/28/20 08:18 Freq: Status: Active Protocol: Document 11/08/20 11:18 [facility] (Rec: 11/08/20 12:02 [facility] [id number]) Electric Stimulation Electric Stimulation IFC Body Location right foot/ankle Duration (Minutes) 10 Intensity 65 Target/Sweep Sweep High/Low High Patient Position Hooklying Combined With Heat/Cold Cold Pack Comments cryocuff PT-OP-T Assessment and Plan Start: 09/28/20 08:18 Freq: Status: Active Protocol: Document 11/08/20 11:18 [facility] (Rec: 11/08/20 12:02 SAK [id number]) Physical Therapy Assessment Goals Three Impairment gait dysfunction; requires use of crutches, unable to tolerate wt.-bearing Short Term Goal (STG) Decrease pain sufficient to allow patient to ambulate with full weight-bearing for short houshold distances with no increase in pain and no limp STG Duration 11/25/20 [employer] Worker Goal (LTG) Patient able to ambulate without assistive device all usual distances without an increase in pain and no limp LTG Duration 01/06/21 Two Impairment moderate edema right foot/ ankle Short Term Goal (STG) Decrease edema right foot and ankle by at least 2 cm circumferential measurements STG Duration 10/30/20 [employer] Work[employer] Goal (LTG) Decrease swelling right foot and ankle to mild, with patient to demonstrate appropriate self-management to include elevation, ice, and use of compression. LTG Duration 01/06/21 One Impairment pain right foot/ankle 6/10 Short Term Goal (STG) Decrease pain to no greater than 4/10 right foot/ankle [employer] Worker Goal (LTG) Patient able to tolerate usual activities including ADL's and IADl's without pain greater than 2/10 on pain scale LTG Duration 01/06/21 Physical Therapy Plan Frequency and Duration Frequency of Treatment 2x/wk Duration of Treatment 12 weeks Plan of Care Start Date 09/28/20 Plan of Care End Date 12/27/20 Therapeutic Interventions Therapeutic Interventions Gait Training,Home Exercise Program,Manual Therapy,Patient /Caregiver Education,Self-Care /Home Management,Taping, Therapeutic Activities, Therapeutic Exercises Modalities Cold Pack/Ice Massage,Electric Stimulation,Hot Packs, Infrared Therapy,Iontophoresis Other Therapeutic Interventions No ultrasound due to pins from prior fracture Next Visit Focus/Plan Next Note Type Treatment Note
--- NOTE | 2020-11-08 16:39 | PT.OPPN ---
Current Diagnoses Other chronic pain (11/08/20) Pain in unspecified ankle and joints of unspecified foot (11/08/20) Difficulty in walking, not elsewhere classified (11/08/20) Physical Therapy Progress Note PT-OP-A Visit Information Start: 09/28/20 08:18 Freq: Status: Active Protocol: Document 11/08/20 11:18 SAK (Rec: 11/08/20 12:02 SAK [id number]) Out-Patient Physical Therapy Visit Information Visit Information Visit Type Treatment Note Visit Start Time 11:18 Visit Stop Time 12:12 Total Visit Minutes 54 Visit Number 10 PT-OP-B Current Condition Start: 09/28/20 08:18 Freq: Status: Active Protocol: Document 09/28/20 09:01 SAK (Rec: 09/28/20 09:54 SAK [id number]) Current Condition History of Current Condition Onset Date 3 months Current Complaints acute onset right foot and ankle History of Current Condition No known cause for onset pain, using axillary crutches, has had to severely limit his activity. Patient has complicated medical history with neck surgery, back surgery, carpal tunnel syndrome, right knee pain. Was being seen for rehab of lumbar spine surgery recently, completed that rehab but has had this ongoing right ankle/ foot pain. Physician hasn't reviewed his MRI of his foot taken one month ago because when seen last week having severe right knee pain and went to ER. Diagnosed with cellulitis, finishing antibiotics today, pain decreased but persists. Prior distal tib/fib fracture requiring ORIF right ankle 1994. Prior Treatments and Tests MRI 09/05/20: posterior tibialis tendinosis, sinus tarsi syndrome Treatment Goals Patient/Caregiver Goals Decrease pain and swelling and be able to ambulate without assitive devicde Prior Functional Status Baseline Function- ADL's Independent Baseline Function- Mobility Independent Baseline Function- Gait independent no device Baseline Function- Recreation/Hobbies going to the beach with dog for walks, fishing Current Functional Impairments (Reported) Functional Limitations- ADL's has to use crutches Functional Limitations- Mobility/Gait limited due to use of crutches Functional Limitations- Work/School retired/disabled Functional Limitations- Recreation/ unable to take walks or go Hobbies fishing due to ankle dysfunction Personal Factors Other Personal Factors That May Effect multiple comorbidities Therapy/Recovery PT-OP-C Subjective Start: 09/28/20 08:18 Freq: Status: Active Protocol: Document 11/08/20 11:18 [facility] (Rec: 11/08/20 12:02 [facility] [id number]) OP-PT Subjective Patient Comments Patient Comments Swelling down, pain down 2-3/ 10, trying to walk without walking boot or crutches. Feels weak. Doing ankle ROM. States his back has been cranky from walking with crutches so trying to take it easy walking without device or boot. PT-OP-F Manual Assessment Start: 09/28/20 08:18 Freq: Status: Active Protocol: Document 09/28/20 09:01 [facility] (Rec: 09/28/20 12:57 [facility] [id number]) Manual Assessments Joint Mobility Assessment Joint Mobility Assessment unable to assess due to high pain level PT-OP-G Mobility & Gait Start: 09/28/20 08:18 Freq: Status: Active Protocol: Document 09/28/20 09:01 [facility] (Rec: 09/28/20 12:57 [facility] [id number]) OP Gait Assessment Gait Gait Assistance Required: Independent Assistive Devices Assistive Device Axillary Crutches Gait Deviations General Gait Pattern Within Normal Limits Factors Limiting Gait Function Factors Limiting Gait Function Pain PT-OP-H Neuro Start: 09/28/20 08:18 Freq: Status: Active Protocol: Document 09/28/20 09:01 [facility] (Rec: 09/28/20 12:57 [facility] [id number]) Sensation Evaluation Gross Sensation Gross Sensation WNL PT-OP-J Posture/Palpation/Skin Start: 09/28/20 08:18 Freq: Status: Active Protocol: Document 09/28/20 09:01 [facility] (Rec: 09/28/20 12:57 [facility] [id number]) Skin Assessment Edema Assessment right foot and ankle Edema Type Pitting Edema Degree 3+ Edema Appearance Taut Subjective Edema Description Pain,Tightness Circumference Measurement 4 Location 10 cm proximal malleoli Comments left 24.8, right 27.1 3 Location 5 cm proximal malleoli Comments left 23.3, right 25.2 2 Location malleolar Comments left 28.0, right 34.2 1 Location midfoot Comments left 24.4, right 24.8 PT-OP-K Range of Motion Start: 09/28/20 08:18 Freq: Status: Active Protocol: Document 09/28/20 09:01 [facility] (Rec: 09/28/20 12:57 [facility] [id number]) Knee Goniometric Range of Motion Knee Measured in Degrees coleen Knee ROM WFL Yes Ankle and Foot Goniometric Range of Motion Ankle and Foot Measured in Degrees Right Ankle/Foot ROM WFL No Testing Position Sitting Dorsiflexion with Knee Flexed 0 Plantarflexion 35 Inversion 25 Eversion 30 Left Ankle/Foot ROM WFL Yes Ankle and Foot ROM Limitations ROM Limitations Pain,Swelling PT-OP-M Strength Start: 09/28/20 08:18 Freq: Status: Active Protocol: Document 09/28/20 09:01 [facility] (Rec: 09/28/20 12:57 [facility] [id number]) Ankle/Foot Strength Ankle and Foot Manual Muscle Testing Left Dorsiflexion (L4) 5 Normal Plantarflexion (S1) 5 Normal Inversion 5 Normal Eversion (S1) 5 Normal Right Comments not tested due to pain PT-OP-T Assessment and Plan Start: 09/28/20 08:18 Freq: Status: Active Protocol: Document 11/08/20 11:18 [facility] (Rec: 11/08/20 12:02 [facility] [id number]) Physical Therapy Assessment Goals Three Impairment gait dysfunction; requires use of crutches, unable to tolerate wt.-bearing Short Term Goal (STG) Decrease pain sufficient to allow patient to ambulate with full weight-bearing for short houshold distances with no increase in pain and no limp 11/08/20: good goal progress, mostly achieved, ambulating today with no device, short distances, mild limp. Slow, careful gait. STG Duration 11/25/20 [place]agger Goal (LTG) Patient able to ambulate without assistive device all usual distances without an increase in pain and no limp 11/08/20: not able to ambulate usual distances at this time, has just weaned off using his walking boot and assistive device. LTG Duration 01/06/21 Two Impairment moderate edema right foot/ ankle Short Term Goal (STG) Decrease edema right foot and ankle by at least 2 cm circumferential measurements 11/08/20: good goal progress, and patient has ordered compression stockings STG Duration 10/30/20 Penitentiary Goal (LTG) Decrease swelling right foot and ankle to mild, with patient to demonstrate appropriate self-management to include elevation, ice, and use of compression. 11/08/20: good goal progress. LTG Duration 01/06/21 One Impairment pain right foot/ankle 6/10 Short Term Goal (STG) Decrease pain to no greater than 4/10 right foot/ankle 11/08/20: goal met STG Duration MET Shagger Goal (LTG) Patient able to tolerate usual activities including ADL's and IADl's without pain greater than 2/10 on pain scale 11/08/20: pain 4/10 at this time. LTG Duration 01/06/21 Assessment Summary Assessment Patient demonstrates good progress with decreased swelling and pain, improved function with ability to ambulate short distances slowly and carefully without use of assistive device or walking boot. Will benefit from further PT to help him fully achieve his PT goals and return to [facility]. Physical Therapy Plan Frequency and Duration Frequency of Treatment 2x/wk Duration of Treatment 12 weeks Plan of Care Start Date 09/28/20 Plan of Care End Date 12/27/20 Therapeutic Interventions Therapeutic Interventions Gait Training,Home Exercise Program,Manual Therapy,Patient /Caregiver Education,Self-Care /Home Management,Taping, Therapeutic Activities, Therapeutic Exercises Modalities Cold Pack/Ice Massage,Electric Stimulation,Hot Packs, Infrared Therapy,Iontophoresis Other Therapeutic Interventions No ultrasound due to pins from prior fracture Next Visit Focus/Plan Next Note Type Treatment Note
--- NOTE | 2020-11-10 16:47 | PT.OTN ---
Current Diagnoses Other chronic pain (11/10/20) Pain in unspecified ankle and joints of unspecified foot (11/10/20) Difficulty in walking, not elsewhere classified (11/10/20) Physical Therapy Treatment Note PT-OP-A Visit Information Start: 09/28/20 08:18 Freq: Status: Active Protocol: Document 11/10/20 11:16 SAK (Rec: 11/10/20 11:44 SAK [id number]) Out-Patient Physical Therapy Visit Information Visit Information Visit Type Treatment Note Visit Start Time 11:15 Visit Stop Time 12:09 Total Visit Minutes 54 Visit Number 11 PT-OP-B Current Condition Start: 09/28/20 08:18 Freq: Status: Active Protocol: Document 09/28/20 09:01 SAK (Rec: 09/28/20 09:54 SAK [id number]) Current Condition History of Current Condition Onset Date 3 months Current Complaints acute onset right foot and ankle History of Current Condition No known cause for onset pain, using axillary crutches, has had to severely limit his activity. Patient has complicated medical history with neck surgery, back surgery, carpal tunnel syndrome, right knee pain. Was being seen for rehab of lumbar spine surgery recently, completed that rehab but has had this ongoing right ankle/ foot pain. Physician hasn't reviewed his MRI of his foot taken one month ago because when seen last week having severe right knee pain and went to ER. Diagnosed with cellulitis, finishing antibiotics today, pain decreased but persists. Prior distal tib/fib fracture requiring ORIF right ankle 1994. Prior Treatments and Tests MRI 09/05/20: posterior tibialis tendinosis, sinus tarsi syndrome Treatment Goals Patient/Caregiver Goals Decrease pain and swelling and be able to ambulate without assitive devicde Prior Functional Status Baseline Function- ADL's Independent Baseline Function- Mobility Independent Baseline Function- Gait independent no device Baseline Function- Recreation/Hobbies going to the beach with dog for walks, fishing Current Functional Impairments (Reported) Functional Limitations- ADL's has to use crutches Functional Limitations- Mobility/Gait limited due to use of crutches Functional Limitations- Work/School retired/disabled Functional Limitations- Recreation/ unable to take walks or go Hobbies fishing due to ankle dysfunction Personal Factors Other Personal Factors That May Effect multiple comorbidities Therapy/Recovery PT-OP-C Subjective Start: 09/28/20 08:18 Freq: Status: Active Protocol: Document 11/10/20 11:16 SAK (Rec: 11/10/20 11:44 SAK [id number]) OP-PT Subjective Patient Comments Patient Comments Patient reports had dry needling on both feet and low back yesterday, feeling better today. PT-OP-F Manual Assessment Start: 09/28/20 08:18 Freq: Status: Active Protocol: Document 09/28/20 09:01 SAK (Rec: 09/28/20 12:57 [facility] [id number]) Manual Assessments Joint Mobility Assessment Joint Mobility Assessment unable to assess due to high pain level PT-OP-G Mobility & Gait Start: 09/28/20 08:18 Freq: Status: Active Protocol: Document 09/28/20 09:01 SAK (Rec: 09/28/20 12:57 [facility] [id number]) OP Gait Assessment Gait Gait Assistance Required: Independent Assistive Devices Assistive Device Axillary Crutches Gait Deviations General Gait Pattern Within Normal Limits Factors Limiting Gait Function Factors Limiting Gait Function Pain PT-OP-H Neuro Start: 09/28/20 08:18 Freq: Status: Active Protocol: Document 09/28/20 09:01 [facility] (Rec: 09/28/20 12:57 [facility] [id number]) Sensation Evaluation Gross Sensation Gross Sensation WNL PT-OP-J Posture/Palpation/Skin Start: 09/28/20 08:18 Freq: Status: Active Protocol: Document 09/28/20 09:01 SAK (Rec: 09/28/20 12:57 [facility] [id number]) Skin Assessment Edema Assessment right foot and ankle Edema Type Pitting Edema Degree 3+ Edema Appearance Taut Subjective Edema Description Pain,Tightness Circumference Measurement 4 Location 10 cm proximal malleoli Comments left 24.8, right 27.1 3 Location 5 cm proximal malleoli Comments left 23.3, right 25.2 2 Location malleolar Comments left 28.0, right 34.2 1 Location midfoot Comments left 24.4, right 24.8 PT-OP-K Range of Motion Start: 09/28/20 08:18 Freq: Status: Active Protocol: Document 09/28/20 09:01 SAK (Rec: 09/28/20 12:57 [facility] [id number]) Knee Goniometric Range of Motion Knee coleen Knee ROM WFL Yes Ankle and Foot Goniometric Range of Motion Ankle and Foot Right Ankle/Foot ROM WFL No Testing Position Sitting Dorsiflexion with Knee Flexed 0 Plantarflexion 35 Inversion 25 Eversion 30 Left Ankle/Foot ROM WFL Yes Ankle and Foot ROM Limitations ROM Limitations Pain,Swelling PT-OP-M Strength Start: 09/28/20 08:18 Freq: Status: Active Protocol: Document 09/28/20 09:01 [facility] (Rec: 09/28/20 12:57 [facility] [id number]) Ankle/Foot Strength Ankle and Foot Manual Muscle Testing Left Dorsiflexion (L4) 5 Normal Plantarflexion (S1) 5 Normal Inversion 5 Normal Eversion (S1) 5 Normal Right Comments not tested due to pain PT-OP-Q Treatments Start: 09/28/20 08:18 Freq: Status: Active Protocol: Document 11/10/20 11:16 [facility] (Rec: 11/10/20 11:44 [facility] [id number]) Cardio Equipment Recumbent Elliptical ([place]) Duration (Minutes) 10 Resistance 1 Seat Position 11 Other LE's only Gym Equipment Shuttle Recovery Bilateral Squats Resistance 50 Shuttle Recovery Platform Stable Reps/Time 2x10 Therapeutic Exercises Sitting Exercises BAPS Sitting Exercise Name df/pf/inv/ev Equipment Used L4 Reps/Minutes 10x ea Gait Training Gait Activity 1 Description level surface Device Used none Level of Assistance verbal cues Distance/Duration 50x2 Treatment Focus upright posture, small steps Manual Therapy Treatment Soft Tissue Mobilization right ankle Body Location R ankle and plantar fascia Mobilization Type Rolling,Sustained Pressure, Trigger Point Release Intensity/Depth Deep Body Position Supine Comments R posterior tibialis, gastroc, plantar fascia. Added using a tennis ball under arch of foot while seated to HEP Self-Care/Home Management Treatment Education Other Education gradual progression of activity, walking. PT-OP-R Modalities Start: 09/28/20 08:18 Freq: Status: Active Protocol: Document 11/10/20 11:16 [facility] (Rec: 11/10/20 11:44 [facility] [id number]) Electric Stimulation Electric Stimulation IFC Body Location right foot/ankle Duration (Minutes) 10 Intensity 65 Target/Sweep Sweep High/Low High Patient Position Hooklying Combined With Heat/Cold Cold Pack Comments cryocuff PT-OP-T Assessment and Plan Start: 09/28/20 08:18 Freq: Status: Active Protocol: Document 11/10/20 11:16 [facility] (Rec: 11/10/20 11:44 [facility] [id number]) Physical Therapy Assessment Goals Three Impairment gait dysfunction; requires use of crutches, unable to tolerate wt.-bearing Short Term Goal (STG) Decrease pain sufficient to allow patient to ambulate with full weight-bearing for short houshold distances with no increase in pain and no limp 11/08/20: good goal progress, mostly achieved, ambulating today with no device, short distances, mild limp. Slow, careful gait. STG Duration 11/25/20 [facility]entiary Goal (LTG) Patient able to ambulate without assistive device all usual distances without an increase in pain and no limp 11/08/20: not able to ambulate usual distances at this time, has just weaned off using his walking boot and assistive device. LTG Duration 01/06/21 Two Impairment moderate edema right foot/ ankle Short Term Goal (STG) Decrease edema right foot and ankle by at least 2 cm circumferential measurements 11/08/20: good goal progress, and patient has ordered compression stockings STG Duration 10/30/20 [facility]her [employer] [place] Goal (LTG) Decrease swelling right foot and ankle to mild, with patient to demonstrate appropriate self-management to include elevation, ice, and use of compression. 11/08/20: good goal progress. LTG Duration 01/06/21 One Impairment pain right foot/ankle 6/10 Short Term Goal (STG) Decrease pain to no greater than 4/10 right foot/ankle 11/08/20: goal met STG Duration MET [facility]iary Goal (LTG) Patient able to tolerate usual activities including ADL's and IADl's without pain greater than 2/10 on pain scale 11/08/20: pain 4/10 at this time. LTG Duration 01/06/21 Progress Towards Goals Progress Towards Goals Progressing Toward Goals Assessment Summary Assessment Able to progress to L4 on BAPS , good tolerance for shuttle leg press with 50#. Physical Therapy Plan Frequency and Duration Frequency of Treatment 2x/wk Duration of Treatment 12 weeks Plan of Care Start Date 09/28/20 Plan of Care End Date 12/27/20 Therapeutic Interventions Therapeutic Interventions Gait Training,Home Exercise Program,Manual Therapy,Patient /Caregiver Education,Self-Care /Home Management,Taping, Therapeutic Activities, Therapeutic Exercises Modalities Cold Pack/Ice Massage,Electric Stimulation,Hot Packs, Infrared Therapy,Iontophoresis Other Therapeutic Interventions No ultrasound due to pins from prior fracture Next Visit Focus/Plan Next Note Type Treatment Note Next Visit Plan Gradual progression of ankle ROM, strengthening, gait training, balance retraining.
--- NOTE | 2020-11-15 11:54 | PT.OTN ---
Current Diagnoses Other chronic pain (11/15/20) Pain in unspecified ankle and joints of unspecified foot (11/15/20) Difficulty in walking, not elsewhere classified (11/15/20) Physical Therapy Treatment Note PT-OP-A Visit Information Start: 09/28/20 08:18 Freq: Status: Active Protocol: Document 11/15/20 09:43 SAK (Rec: 11/15/20 10:12 SAK [id number]) Out-Patient Physical Therapy Visit Information Visit Information Visit Type Treatment Note Visit Start Time 09:45 Visit Stop Time 10:40 Total Visit Minutes 55 Visit Number 12 PT-OP-B Current Condition Start: 09/28/20 08:18 Freq: Status: Active Protocol: Document 09/28/20 09:01 SAK (Rec: 09/28/20 09:54 SAK [id number]) Current Condition History of Current Condition Onset Date 3 months Current Complaints acute onset right foot and ankle History of Current Condition No known cause for onset pain, using axillary crutches, has had to severely limit his activity. Patient has complicated medical history with neck surgery, back surgery, carpal tunnel syndrome, right knee pain. Was being seen for rehab of lumbar spine surgery recently, completed that rehab but has had this ongoing right ankle/ foot pain. Physician hasn't reviewed his MRI of his foot taken one month ago because when seen last week having severe right knee pain and went to ER. Diagnosed with cellulitis, finishing antibiotics today, pain decreased but persists. Prior distal tib/fib fracture requiring ORIF right ankle 1994. Prior Treatments and Tests MRI 09/05/20: posterior tibialis tendinosis, sinus tarsi syndrome Treatment Goals Patient/Caregiver Goals Decrease pain and swelling and be able to ambulate without assitive devicde Prior Functional Status Baseline Function- ADL's Independent Baseline Function- Mobility Independent Baseline Function- Gait independent no device Baseline Function- Recreation/Hobbies going to the beach with dog for walks, fishing Current Functional Impairments (Reported) Functional Limitations- ADL's has to use crutches Functional Limitations- Mobility/Gait limited due to use of crutches Functional Limitations- Work/School retired/disabled Functional Limitations- Recreation/ unable to take walks or go Hobbies fishing due to ankle dysfunction Personal Factors Other Personal Factors That May Effect multiple comorbidities Therapy/Recovery PT-OP-C Subjective Start: 09/28/20 08:18 Freq: Status: Active Protocol: Document 11/15/20 09:43 SAK (Rec: 11/15/20 10:12 [facility] [id number]) OP-PT Subjective Patient Comments Patient Comments arch sore up to 02/18. Getting compression stocking today after PT. PT-OP-F Manual Assessment Start: 09/28/20 08:18 Freq: Status: Active Protocol: Document 09/28/20 09:01 SAK (Rec: 09/28/20 12:57 [facility] [id number]) Manual Assessments Joint Mobility Assessment Joint Mobility Assessment unable to assess due to high pain level PT-OP-G Mobility & Gait Start: 09/28/20 08:18 Freq: Status: Active Protocol: Document 09/28/20 09:01 SAK (Rec: 09/28/20 12:57 [facility] [id number]) OP Gait Assessment Gait Gait Assistance Required: Independent Assistive Devices Assistive Device Axillary Crutches Gait Deviations General Gait Pattern Within Normal Limits Factors Limiting Gait Function Factors Limiting Gait Function Pain PT-OP-H Neuro Start: 09/28/20 08:18 Freq: Status: Active Protocol: Document 09/28/20 09:01 [facility] (Rec: 09/28/20 12:57 [facility] [id number]) Sensation Evaluation Gross Sensation Gross Sensation WNL PT-OP-J Posture/Palpation/Skin Start: 09/28/20 08:18 Freq: Status: Active Protocol: Document 09/28/20 09:01 SAK (Rec: 09/28/20 12:57 [facility] [id number]) Skin Assessment Edema Assessment right foot and ankle Edema Type Pitting Edema Degree 3+ Edema Appearance Taut Subjective Edema Description Pain,Tightness Circumference Measurement 4 Location 10 cm proximal malleoli Comments left 24.8, right 27.1 3 Location 5 cm proximal malleoli Comments left 23.3, right 25.2 2 Location malleolar Comments left 28.0, right 34.2 1 Location midfoot Comments left 24.4, right 24.8 PT-OP-K Range of Motion Start: 09/28/20 08:18 Freq: Status: Active Protocol: Document 09/28/20 09:01 SAK (Rec: 09/28/20 12:57 [facility] [id number]) Knee Goniometric Range of Motion Knee coleen Knee ROM WFL Yes Ankle and Foot Goniometric Range of Motion Ankle and Foot Right Ankle/Foot ROM WFL No Testing Position Sitting Dorsiflexion with Knee Flexed 0 Plantarflexion 35 Inversion 25 Eversion 30 Left Ankle/Foot ROM WFL Yes Ankle and Foot ROM Limitations ROM Limitations Pain,Swelling PT-OP-M Strength Start: 09/28/20 08:18 Freq: Status: Active Protocol: Document 09/28/20 09:01 [facility] (Rec: 09/28/20 12:57 [facility] [id number]) Ankle/Foot Strength Ankle and Foot Manual Muscle Testing Left Dorsiflexion (L4) 5 Normal Plantarflexion (S1) 5 Normal Inversion 5 Normal Eversion (S1) 5 Normal Right Comments not tested due to pain PT-OP-Q Treatments Start: 09/28/20 08:18 Freq: Status: Active Protocol: Document 11/15/20 09:43 [facility] (Rec: 11/15/20 10:12 [facility] [id number]) Cardio Equipment Recumbent Elliptical ([place]) Duration (Minutes) 10 Resistance 2 Seat Position 11 Other LE's only Gym Equipment Shuttle Recovery Bilateral Squats Resistance 50 Shuttle Recovery Platform Stable Reps/Time 2x10 Therapeutic Exercises Sitting Exercises BAPS Sitting Exercise Name df/pf/inv/ev Equipment Used L4 Reps/Minutes 10x ea Standing Exercises sidestepping Reps/Minutes 10'x2 Comments small steps Gait Training Gait Activity 1 Description level surface Device Used none Level of Assistance verbal cues Distance/Duration 50x2 Treatment Focus upright posture, small steps Manual Therapy Treatment Soft Tissue Mobilization right ankle Body Location R ankle and plantar fascia Mobilization Type Rolling,Sustained Pressure, Trigger Point Release Intensity/Depth Deep Body Position Supine Comments R posterior tibialis, gastroc, plantar fascia. PT-OP-R Modalities Start: 09/28/20 08:18 Freq: Status: Active Protocol: Document 11/15/20 09:43 SAK (Rec: 11/15/20 10:12 [facility] [id number]) Electric Stimulation Electric Stimulation IFC Body Location right foot/ankle Duration (Minutes) 10 Intensity 65 Target/Sweep Sweep High/Low High Patient Position Hooklying Combined With Heat/Cold Cold Pack Comments cryocuff PT-OP-T Assessment and Plan Start: 09/28/20 08:18 Freq: Status: Active Protocol: Document 11/15/20 09:43 [facility] (Rec: 11/15/20 10:12 [facility] [id number]) Physical Therapy Assessment Goals Three Impairment gait dysfunction; requires use of crutches, unable to tolerate wt.-bearing Short Term Goal (STG) Decrease pain sufficient to allow patient to ambulate with full weight-bearing for short houshold distances with no increase in pain and no limp 11/08/20: good goal progress, mostly achieved, ambulating today with no device, short distances, mild limp. Slow, careful gait. STG Duration 11/25/20 [employer] Goal (LTG) Patient able to ambulate without assistive device all usual distances without an increase in pain and no limp 11/08/20: not able to ambulate usual distances at this time, has just weaned off using his walking boot and assistive device. LTG Duration 01/06/21 Two Impairment moderate edema right foot/ ankle Short Term Goal (STG) Decrease edema right foot and ankle by at least 2 cm circumferential measurements 11/08/20: good goal progress, and patient has ordered compression stockings STG Duration 10/30/20 [facility] Goal (LTG) Decrease swelling right foot and ankle to mild, with patient to demonstrate appropriate self-management to include elevation, ice, and use of compression. 11/08/20: good goal progress. LTG Duration 01/06/21 One Impairment pain right foot/ankle 6/10 Short Term Goal (STG) Decrease pain to no greater than 4/10 right foot/ankle 11/08/20: goal met STG Duration MET [facility] Goal (LTG) Patient able to tolerate usual activities including ADL's and IADl's without pain greater than 2/10 on pain scale 11/08/20: pain 4/10 at this time. LTG Duration 01/06/21 Progress Towards Goals Progress Towards Goals Progressing Toward Goals Assessment Summary Assessment Progressed to level 2 on Sci- Fit, tolerating gradual increase in walking. Added sidestepping for closed chain ex. Physical Therapy Plan Frequency and Duration Frequency of Treatment 2x/wk Duration of Treatment 12 weeks Plan of Care Start Date 09/28/20 Plan of Care End Date 12/27/20 Therapeutic Interventions Therapeutic Interventions Gait Training,Home Exercise Program,Manual Therapy,Patient /Caregiver Education,Self-Care /Home Management,Taping, Therapeutic Activities, Therapeutic Exercises Modalities Cold Pack/Ice Massage,Electric Stimulation,Hot Packs, Infrared Therapy,Iontophoresis Other Therapeutic Interventions No ultrasound due to pins from prior fracture Next Visit Focus/Plan Next Note Type Progress Note Next Visit Plan Add shuttle balance with chains green. Assess response to compression stocking. Continue PT per POC.
--- NOTE | 2020-11-17 16:17 | PT.OTN ---
Current Diagnoses Other chronic pain (11/17/20) Pain in unspecified ankle and joints of unspecified foot (11/17/20) Difficulty in walking, not elsewhere classified (11/17/20) Physical Therapy Treatment Note PT-OP-A Visit Information Start: 09/28/20 08:18 Freq: Status: Active Protocol: Document 11/17/20 10:33 SAK (Rec: 11/17/20 11:15 [facility] [id number]) Out-Patient Physical Therapy Visit Information Visit Information Visit Type Treatment Note Visit Note 11 min late Visit Start Time 10:41 Visit Stop Time 11:25 Total Visit Minutes 44 Visit Number 13 PT-OP-B Current Condition Start: 09/28/20 08:18 Freq: Status: Active Protocol: Document 09/28/20 09:01 SAK (Rec: 09/28/20 09:54 [facility]AK [id number]) Current Condition History of Current Condition Onset Date 3 months Current Complaints acute onset right foot and ankle History of Current Condition No known cause for onset pain, using axillary crutches, has had to severely limit his activity. Patient has complicated medical history with neck surgery, back surgery, carpal tunnel syndrome, right knee pain. Was being seen for rehab of lumbar spine surgery recently, completed that rehab but has had this ongoing right ankle/ foot pain. Physician hasn't reviewed his MRI of his foot taken one month ago because when seen last week having severe right knee pain and went to ER. Diagnosed with cellulitis, finishing antibiotics today, pain decreased but persists. Prior distal tib/fib fracture requiring ORIF right ankle 1994. Prior Treatments and Tests MRI 09/05/20: posterior tibialis tendinosis, sinus tarsi syndrome Treatment Goals Patient/Caregiver Goals Decrease pain and swelling and be able to ambulate without assitive devicde Prior Functional Status Baseline Function- ADL's Independent Baseline Function- Mobility Independent Baseline Function- Gait independent no device Baseline Function- Recreation/Hobbies going to the beach with dog for walks, fishing Current Functional Impairments (Reported) Functional Limitations- ADL's has to use crutches Functional Limitations- Mobility/Gait limited due to use of crutches Functional Limitations- Work/School retired/disabled Functional Limitations- Recreation/ unable to take walks or go Hobbies fishing due to ankle dysfunction Personal Factors Other Personal Factors That May Effect multiple comorbidities Therapy/Recovery PT-OP-C Subjective Start: 09/28/20 08:18 Freq: Status: Active Protocol: Document 11/17/20 10:33 SAK (Rec: 11/17/20 11:15 [facility] [id number]) OP-PT Subjective Patient Comments Patient Comments Got compression stocking, couldn't tolerate due to itching his skin, reports increase in swelling due to irritation of skin, was scratching upper guillaume. States worst swelling he's had for quite awhile. Agreed to contact compression sock fitter to problem-solve. PT-OP-F Manual Assessment Start: 09/28/20 08:18 Freq: Status: Active Protocol: Document 09/28/20 09:01 [facility] (Rec: 09/28/20 12:57 [facility] [id number]) Manual Assessments Joint Mobility Assessment Joint Mobility Assessment unable to assess due to high pain level PT-OP-G Mobility & Gait Start: 09/28/20 08:18 Freq: Status: Active Protocol: Document 09/28/20 09:01 [facility] (Rec: 09/28/20 12:57 [facility] [id number]) OP Gait Assessment Gait Gait Assistance Required: Independent Assistive Devices Assistive Device Axillary Crutches Gait Deviations General Gait Pattern Within Normal Limits Factors Limiting Gait Function Factors Limiting Gait Function Pain PT-OP-H Neuro Start: 09/28/20 08:18 Freq: Status: Active Protocol: Document 09/28/20 09:01 [facility] (Rec: 09/28/20 12:57 [facility] [id number]) Sensation Evaluation Gross Sensation Gross Sensation WNL PT-OP-J Posture/Palpation/Skin Start: 09/28/20 08:18 Freq: Status: Active Protocol: Document 09/28/20 09:01 [facility] (Rec: 09/28/20 12:57 [facility] [id number]) Skin Assessment Edema Assessment right foot and ankle Edema Type Pitting Edema Degree 3+ Edema Appearance Taut Subjective Edema Description Pain,Tightness Circumference Measurement 4 Location 10 cm proximal malleoli Comments left 24.8, right 27.1 3 Location 5 cm proximal malleoli Comments left 23.3, right 25.2 2 Location malleolar Comments left 28.0, right 34.2 1 Location midfoot Comments left 24.4, right 24.8 PT-OP-K Range of Motion Start: 09/28/20 08:18 Freq: Status: Active Protocol: Document 09/28/20 09:01 [facility] (Rec: 09/28/20 12:57 [facility] [id number]) Knee Goniometric Range of Motion Knee coleen Knee ROM WFL Yes Ankle and Foot Goniometric Range of Motion Ankle and Foot Right Ankle/Foot ROM WFL No Testing Position Sitting Dorsiflexion with Knee Flexed 0 Plantarflexion 35 Inversion 25 Eversion 30 Left Ankle/Foot ROM WFL Yes Ankle and Foot ROM Limitations ROM Limitations Pain,Swelling PT-OP-M Strength Start: 09/28/20 08:18 Freq: Status: Active Protocol: Document 09/28/20 09:01 [facility] (Rec: 09/28/20 12:57 [facility] [id number]) Ankle/Foot Strength Ankle and Foot Manual Muscle Testing Left Dorsiflexion (L4) 5 Normal Plantarflexion (S1) 5 Normal Inversion 5 Normal Eversion (S1) 5 Normal Right Comments not tested due to pain PT-OP-Q Treatments Start: 09/28/20 08:18 Freq: Status: Active Protocol: Document 11/17/20 10:33 [facility] (Rec: 11/17/20 11:15 [facility] [id number]) Cardio Equipment Recumbent Elliptical ([employer]) Duration (Minutes) 10 Resistance 2-4 Seat Position 11 Other LE's only Gym Equipment Shuttle Recovery Bilateral Squats Resistance 62 Shuttle Recovery Platform Stable Reps/Time 2x10 Shuttle Balance chains blue Details bal and weight shift: fwd/bck, side Comments EO Therapeutic Exercises Standing Exercises HC stretch Side right Equipment Used ORLIN Reps/Minutes 2x30 passive sidestepping Reps/Minutes 10'x2 Comments small steps Gait Training Gait Activity 1 Description level surface Device Used none Level of Assistance verbal cues Distance/Duration 50x2 Treatment Focus upright posture, small steps, heel/toe gait Manual Therapy Treatment Soft Tissue Mobilization right ankle Comments no time due to patient late PT-OP-R Modalities Start: 09/28/20 08:18 Freq: Status: Active Protocol: Document 11/17/20 10:33 [facility] (Rec: 11/17/20 11:15 [facility] [id number]) Electric Stimulation Electric Stimulation IFC Body Location right foot/ankle Duration (Minutes) 10 Intensity 65 Target/Sweep Sweep High/Low High Patient Position Hooklying Combined With Heat/Cold Cold Pack Comments cryocuff PT-OP-T Assessment and Plan Start: 09/28/20 08:18 Freq: Status: Active Protocol: Document 11/17/20 10:33 SAK (Rec: 11/17/20 11:15 [facility]AK [id number]) Physical Therapy Assessment Goals Three Impairment gait dysfunction; requires use of crutches, unable to tolerate wt.-bearing Short Term Goal (STG) Decrease pain sufficient to allow patient to ambulate with full weight-bearing for short houshold distances with no increase in pain and no limp 11/08/20: good goal progress, mostly achieved, ambulating today with no device, short distances, mild limp. Slow, careful gait. STG Duration 11/25/20 [employer] Goal (LTG) Patient able to ambulate without assistive device all usual distances without an increase in pain and no limp 11/08/20: not able to ambulate usual distances at this time, has just weaned off using his walking boot and assistive device. LTG Duration 01/06/21 Two Impairment moderate edema right foot/ ankle Short Term Goal (STG) Decrease edema right foot and ankle by at least 2 cm circumferential measurements 11/08/20: good goal progress, and patient has ordered compression stockings STG Duration 10/30/20 [facility] Goal (LTG) Decrease swelling right foot and ankle to mild, with patient to demonstrate appropriate self-management to include elevation, ice, and use of compression. 11/08/20: good goal progress. LTG Duration 01/06/21 One Impairment pain right foot/ankle 6/10 Short Term Goal (STG) Decrease pain to no greater than 4/10 right foot/ankle 11/08/20: goal met STG Duration MET [employer] Goal (LTG) Patient able to tolerate usual activities including ADL's and IADl's without pain greater than 2/10 on pain scale 11/08/20: pain 4/10 at this time. LTG Duration 01/06/21 Progress Towards Goals Progress Towards Goals Progressing Toward Goals Assessment Summary Assessment Treatment modified due to patient late. Was able to increase resistance of leg press and add shuttle balance today. Poor tolerance for compression sock with itching irritation and increased swelling per patient report. Physical Therapy Plan Frequency and Duration Frequency of Treatment 2x/wk Duration of Treatment 12 weeks Plan of Care Start Date 09/28/20 Plan of Care End Date 12/27/20 Therapeutic Interventions Therapeutic Interventions Gait Training,Home Exercise Program,Manual Therapy,Patient /Caregiver Education,Self-Care /Home Management,Taping, Therapeutic Activities, Therapeutic Exercises Modalities Cold Pack/Ice Massage,Electric Stimulation,Hot Packs, Infrared Therapy,Iontophoresis Other Therapeutic Interventions No ultrasound due to pins from prior fracture Next Visit Focus/Plan Next Note Type Progress Note Next Visit Plan Add shuttle balance with chains green. Assess response to compression stocking. Continue PT per POC.
--- NOTE | 2020-11-21 10:32 | PT.OTN ---
Current Diagnoses Other chronic pain (11/21/20) Pain in unspecified ankle and joints of unspecified foot (11/21/20) Difficulty in walking, not elsewhere classified (11/21/20) Physical Therapy Treatment Note PT-OP-A Visit Information Start: 09/28/20 08:18 Freq: Status: Active Protocol: Document 11/21/20 09:32 MA (Rec: 11/21/20 10:31 MA [id number]) Out-Patient Physical Therapy Visit Information Visit Information Visit Type Treatment Note Visit Start Time 09:30 Visit Stop Time 10:23 Total Visit Minutes 53 Visit Number 14 Number of LOSS PREVENTION RESEARCH ENGINEER Visits 1 Precautions Precautions PMH: prior right distal tib/ fib fracture with ORIF, partial right TKA, carpal tunnel, lumbar surgery, cervical surgery, cellulitis right knee PT-OP-B Current Condition Start: 09/28/20 08:18 Freq: Status: Active Protocol: Document 09/28/20 09:01 SAK (Rec: 09/28/20 09:54 SAK [id number]) Current Condition History of Current Condition Onset Date 3 months Current Complaints acute onset right foot and ankle History of Current Condition No known cause for onset pain, using axillary crutches, has had to severely limit his activity. Patient has complicated medical history with neck surgery, back surgery, carpal tunnel syndrome, right knee pain. Was being seen for rehab of lumbar spine surgery recently, completed that rehab but has had this ongoing right ankle/ foot pain. Physician hasn't reviewed his MRI of his foot taken one month ago because when seen last week having severe right knee pain and went to ER. Diagnosed with cellulitis, finishing antibiotics today, pain decreased but persists. Prior distal tib/fib fracture requiring ORIF right ankle 1994. Prior Treatments and Tests MRI 09/05/20: posterior tibialis tendinosis, sinus tarsi syndrome Treatment Goals Patient/Caregiver Goals Decrease pain and swelling and be able to ambulate without assitive devicde Prior Functional Status Baseline Function- ADL's Independent Baseline Function- Mobility Independent Baseline Function- Gait independent no device Baseline Function- Recreation/Hobbies going to the beach with dog for walks, fishing Current Functional Impairments (Reported) Functional Limitations- ADL's has to use crutches Functional Limitations- Mobility/Gait limited due to use of crutches Functional Limitations- Work/School retired/disabled Functional Limitations- Recreation/ unable to take walks or go Hobbies fishing due to ankle dysfunction Personal Factors Other Personal Factors That May Effect multiple comorbidities Therapy/Recovery PT-OP-C Subjective Start: 09/28/20 08:18 Freq: Status: Active Protocol: Document 11/21/20 09:32 MA (Rec: 11/21/20 10:31 MA [id number]) OP-PT Subjective Patient Comments Patient Comments Pt states I am allergic to the compression stocking. PT-OP-F Manual Assessment Start: 09/28/20 08:18 Freq: Status: Active Protocol: Document 09/28/20 09:01 SAK (Rec: 09/28/20 12:57 SAK [id number]) Manual Assessments Joint Mobility Assessment Joint Mobility Assessment unable to assess due to high pain level PT-OP-G Mobility & Gait Start: 09/28/20 08:18 Freq: Status: Active Protocol: Document 09/28/20 09:01 SAK (Rec: 09/28/20 12:57 SAK [id number]) OP Gait Assessment Gait Gait Assistance Required: Independent Assistive Devices Assistive Device Axillary Crutches Gait Deviations General Gait Pattern Within Normal Limits Factors Limiting Gait Function Factors Limiting Gait Function Pain PT-OP-H Neuro Start: 09/28/20 08:18 Freq: Status: Active Protocol: Document 09/28/20 09:01 SAK (Rec: 09/28/20 12:57 [facility] [id number]) Sensation Evaluation Gross Sensation Gross Sensation WNL PT-OP-J Posture/Palpation/Skin Start: 09/28/20 08:18 Freq: Status: Active Protocol: Document 09/28/20 09:01 SAK (Rec: 09/28/20 12:57 [facility] [id number]) Skin Assessment Edema Assessment right foot and ankle Edema Type Pitting Edema Degree 3+ Edema Appearance Taut Subjective Edema Description Pain,Tightness Circumference Measurement 4 Location 10 cm proximal malleoli Comments left 24.8, right 27.1 3 Location 5 cm proximal malleoli Comments left 23.3, right 25.2 2 Location malleolar Comments left 28.0, right 34.2 1 Location midfoot Comments left 24.4, right 24.8 PT-OP-K Range of Motion Start: 09/28/20 08:18 Freq: Status: Active Protocol: Document 09/28/20 09:01 SAK (Rec: 09/28/20 12:57 [facility] [id number]) Knee Goniometric Range of Motion Knee coleen Knee ROM WFL Yes Ankle and Foot Goniometric Range of Motion Ankle and Foot Right Ankle/Foot ROM WFL No Testing Position Sitting Dorsiflexion with Knee Flexed 0 Plantarflexion 35 Inversion 25 Eversion 30 Left Ankle/Foot ROM WFL Yes Ankle and Foot ROM Limitations ROM Limitations Pain,Swelling PT-OP-M Strength Start: 09/28/20 08:18 Freq: Status: Active Protocol: Document 09/28/20 09:01 [facility] (Rec: 09/28/20 12:57 [facility] [id number]) Ankle/Foot Strength Ankle and Foot Manual Muscle Testing Left Dorsiflexion (L4) 5 Normal Plantarflexion (S1) 5 Normal Inversion 5 Normal Eversion (S1) 5 Normal Right Comments not tested due to pain PT-OP-Q Treatments Start: 09/28/20 08:18 Freq: Status: Active Protocol: Document 11/21/20 09:32 MA (Rec: 11/21/20 10:31 MA [id number]) Cardio Equipment Recumbent Elliptical (Bouf) Duration (Minutes) 10 Resistance 2-4 Seat Position 11 Other LE's only Gym Equipment Shuttle Recovery Bilateral Squats Resistance 62 Shuttle Recovery Platform Stable Reps/Time 2x10 Shuttle Balance chains blue Details bal and weight shift: fwd/bck, side Comments EO; Blue for balance, red for fwd/bkwd Therapeutic Exercises Supine Exercises ankle inv/ev Resistance right Reps/Minutes 10x Ankle Pumps Side bilateral Reps/Minutes 5x Standing Exercises HC stretch Side right Equipment Used ORLIN Reps/Minutes 2x30 passive Gait Training Gait Activity 1 Description level surface Device Used none Level of Assistance verbal cues Distance/Duration 50x2 Treatment Focus upright posture, small steps, heel/toe gait Manual Therapy Treatment Soft Tissue Mobilization right ankle Body Location R ankle and plantar fascia Mobilization Type Rolling,Sustained Pressure, Trigger Point Release Intensity/Depth Deep Body Position Supine Comments R posterior tibialis, gastroc, plantar fascia. PT-OP-R Modalities Start: 09/28/20 08:18 Freq: Status: Active Protocol: Document 11/21/20 10:32 MA (Rec: 11/21/20 10:32 MA [id number]) Electric Stimulation Electric Stimulation IFC Body Location right foot/ankle Duration (Minutes) 10 Intensity 65 Target/Sweep Sweep High/Low High Patient Position Hooklying Combined With Heat/Cold Cold Pack Comments Intensity at 35 today - cryocuff PT-OP-T Assessment and Plan Start: 09/28/20 08:18 Freq: Status: Active Protocol: Document 11/21/20 09:32 MA (Rec: 11/21/20 10:31 MA [id number]) Physical Therapy Assessment Goals Three Impairment gait dysfunction; requires use of crutches, unable to tolerate wt.-bearing Short Term Goal (STG) Decrease pain sufficient to allow patient to ambulate with full weight-bearing for short houshold distances with no increase in pain and no limp 11/08/20: good goal progress, mostly achieved, ambulating today with no device, short distances, mild limp. Slow, careful gait. STG Duration 11/25/20 Animal Nutrition Consultant Goal (LTG) Patient able to ambulate without assistive device all usual distances without an increase in pain and no limp 11/08/20: not able to ambulate usual distances at this time, has just weaned off using his walking boot and assistive device. LTG Duration 01/06/21 Two Impairment moderate edema right foot/ ankle Short Term Goal (STG) Decrease edema right foot and ankle by at least 2 cm circumferential measurements 11/08/20: good goal progress, and patient has ordered compression stockings STG Duration 10/30/20 Intermediate Goal (LTG) Decrease swelling right foot and ankle to mild, with patient to demonstrate appropriate self-management to include elevation, ice, and use of compression. 11/08/20: good goal progress. LTG Duration 01/06/21 One Impairment pain right foot/ankle 6/10 Short Term Goal (STG) Decrease pain to no greater than 4/10 right foot/ankle 11/08/20: goal met STG Duration MET Intermediate Goal (LTG) Patient able to tolerate usual activities including ADL's and IADl's without pain greater than 2/10 on pain scale 11/08/20: pain 4/10 at this time. LTG Duration 01/06/21 Assessment Summary Assessment Pt has been wearing his ski socks for compression since he is allergic to compression stocking. He arrived limping off of RLE, but after stretching on ORLIN and working on anterior/posterior weight shifts on [employer] [place], pt was able to have better R ankle ROM during gait work. Worked on heel strike and increasing RLE stance time during gait training today. Physical Therapy Plan Frequency and Duration Frequency of Treatment 2x/wk Duration of Treatment 12 weeks Plan of Care Start Date 09/28/20 Plan of Care End Date 12/27/20 Therapeutic Interventions Therapeutic Interventions Gait Training,Home Exercise Program,Manual Therapy,Patient /Caregiver Education,Self-Care /Home Management,Taping, Therapeutic Activities, Therapeutic Exercises Modalities Cold Pack/Ice Massage,Electric Stimulation,Hot Packs, Infrared Therapy,Iontophoresis Other Therapeutic Interventions No ultrasound due to pins from prior fracture Next Visit Focus/Plan Next Note Type Treatment Note Next Visit Plan Continue working on balance, increasing stance time on RLE and ending session with IFC.
--- NOTE | 2020-11-29 14:23 | PT.OTN ---
Current Diagnoses Other chronic pain (11/29/20) Pain in unspecified ankle and joints of unspecified foot (11/29/20) Difficulty in walking, not elsewhere classified (11/29/20) Physical Therapy Treatment Note PT-OP-A Visit Information Start: 09/28/20 08:18 Freq: Status: Active Protocol: Document 11/29/20 10:28 SAK (Rec: 11/29/20 11:18 SAK [id number]) Out-Patient Physical Therapy Visit Information Visit Information Visit Type Treatment Note Visit Start Time 10:30 Visit Stop Time 11:25 Total Visit Minutes 55 Visit Number 15 Number of CLINICAL INFORMATICS PHYSICIAN Visits 0 Precautions Precautions PMH: prior right distal tib/ fib fracture with ORIF, partial right TKA, carpal tunnel, lumbar surgery, cervical surgery, cellulitis right knee PT-OP-B Current Condition Start: 09/28/20 08:18 Freq: Status: Active Protocol: Document 09/28/20 09:01 CHIQUIS (Rec: 09/28/20 09:54 SAK [id number]) Current Condition History of Current Condition Onset Date 3 months Current Complaints acute onset right foot and ankle History of Current Condition No known cause for onset pain, using axillary crutches, has had to severely limit his activity. Patient has complicated medical history with neck surgery, back surgery, carpal tunnel syndrome, right knee pain. Was being seen for rehab of lumbar spine surgery recently, completed that rehab but has had this ongoing right ankle/ foot pain. Physician hasn't reviewed his MRI of his foot taken one month ago because when seen last week having severe right knee pain and went to ER. Diagnosed with cellulitis, finishing antibiotics today, pain decreased but persists. Prior distal tib/fib fracture requiring ORIF right ankle 1994. Prior Treatments and Tests MRI 09/05/20: posterior tibialis tendinosis, sinus tarsi syndrome Treatment Goals Patient/Caregiver Goals Decrease pain and swelling and be able to ambulate without assitive devicde Prior Functional Status Baseline Function- ADL's Independent Baseline Function- Mobility Independent Baseline Function- Gait independent no device Baseline Function- Recreation/Hobbies going to the beach with dog for walks, fishing Current Functional Impairments (Reported) Functional Limitations- ADL's has to use crutches Functional Limitations- Mobility/Gait limited due to use of crutches Functional Limitations- Work/School retired/disabled Functional Limitations- Recreation/ unable to take walks or go Hobbies fishing due to ankle dysfunction Personal Factors Other Personal Factors That May Effect multiple comorbidities Therapy/Recovery PT-OP-C Subjective Start: 09/28/20 08:18 Freq: Status: Active Protocol: Document 11/29/20 10:28 [facility] (Rec: 11/29/20 11:18 [facility] [id number]) OP-PT Subjective Patient Comments Patient Comments Walked about 1/2 mile yesterday, toward the end felt ankle lock up. Limping a bit more today. Has started doing some self-massage for his ankle as has been done with PT. PT-OP-F Manual Assessment Start: 09/28/20 08:18 Freq: Status: Active Protocol: Document 09/28/20 09:01 [facility] (Rec: 09/28/20 12:57 [facility] [id number]) Manual Assessments Joint Mobility Assessment Joint Mobility Assessment unable to assess due to high pain level PT-OP-G Mobility & Gait Start: 09/28/20 08:18 Freq: Status: Active Protocol: Document 09/28/20 09:01 [facility] (Rec: 09/28/20 12:57 [facility] [id number]) OP Gait Assessment Gait Gait Assistance Required: Independent Assistive Devices Assistive Device Axillary Crutches Gait Deviations General Gait Pattern Within Normal Limits Factors Limiting Gait Function Factors Limiting Gait Function Pain PT-OP-H Neuro Start: 09/28/20 08:18 Freq: Status: Active Protocol: Document 09/28/20 09:01 [facility] (Rec: 09/28/20 12:57 [facility] [id number]) Sensation Evaluation Gross Sensation Gross Sensation WNL PT-OP-J Posture/Palpation/Skin Start: 09/28/20 08:18 Freq: Status: Active Protocol: Document 09/28/20 09:01 [facility] (Rec: 09/28/20 12:57 [facility] [id number]) Skin Assessment Edema Assessment right foot and ankle Edema Type Pitting Edema Degree 3+ Edema Appearance Taut Subjective Edema Description Pain,Tightness Circumference Measurement 4 Location 10 cm proximal malleoli Comments left 24.8, right 27.1 3 Location 5 cm proximal malleoli Comments left 23.3, right 25.2 2 Location malleolar Comments left 28.0, right 34.2 1 Location midfoot Comments left 24.4, right 24.8 PT-OP-K Range of Motion Start: 09/28/20 08:18 Freq: Status: Active Protocol: Document 09/28/20 09:01 [facility] (Rec: 09/28/20 12:57 [facility] [id number]) Knee Goniometric Range of Motion Knee coleen Knee ROM WFL Yes Ankle and Foot Goniometric Range of Motion Ankle and Foot Right Ankle/Foot ROM WFL No Testing Position Sitting Dorsiflexion with Knee Flexed 0 Plantarflexion 35 Inversion 25 Eversion 30 Left Ankle/Foot ROM WFL Yes Ankle and Foot ROM Limitations ROM Limitations Pain,Swelling PT-OP-M Strength Start: 09/28/20 08:18 Freq: Status: Active Protocol: Document 09/28/20 09:01 [facility] (Rec: 09/28/20 12:57 [facility] [id number]) Ankle/Foot Strength Ankle and Foot Manual Muscle Testing Left Dorsiflexion (L4) 5 Normal Plantarflexion (S1) 5 Normal Inversion 5 Normal Eversion (S1) 5 Normal Right Comments not tested due to pain PT-OP-Q Treatments Start: 09/28/20 08:18 Freq: Status: Active Protocol: Document 11/29/20 10:28 SAK (Rec: 11/29/20 11:18 [facility] [id number]) Cardio Equipment Recumbent Elliptical ([employer]) Duration (Minutes) 10 Resistance 2-4 Seat Position 11 Other LE's only Gym Equipment Shuttle Balance chains blue Details bal and weight shift: fwd/bck, side Comments EO; Blue for balance, red for fwd/bkwd Therapeutic Exercises Sitting Exercises ankle df, inv, ev Side right Resistance L2 TB Reps/Minutes 10x ea Comments issued written handout BAPS Sitting Exercise Name df/pf/inv/ev Equipment Used L4 Reps/Minutes 10x ea Standing Exercises tandem stand Equipment Used corner, chair Reps/Minutes 5 min HC stretch Side right Equipment Used ORLIN Reps/Minutes 2x30 passive Manual Therapy Treatment Soft Tissue Mobilization right ankle Body Location R ankle and plantar fascia Mobilization Type Rolling,Sustained Pressure, Trigger Point Release Intensity/Depth Deep Body Position Supine Comments R posterior tibialis, gastroc, plantar fascia. PT-OP-R Modalities Start: 09/28/20 08:18 Freq: Status: Active Protocol: Document 11/29/20 10:28 SAK (Rec: 11/29/20 11:18 [facility] [id number]) Electric Stimulation Electric Stimulation IFC Body Location right foot/ankle Duration (Minutes) 10 Intensity 65 Target/Sweep Sweep High/Low High Patient Position Hooklying Combined With Heat/Cold Cold Pack Comments Intensity at 35 today - cryocuff PT-OP-T Assessment and Plan Start: 09/28/20 08:18 Freq: Status: Active Protocol: Document 11/29/20 10:28 [facility] (Rec: 11/29/20 11:18 [facility] [id number]) Physical Therapy Assessment Goals Three Impairment gait dysfunction; requires use of crutches, unable to tolerate wt.-bearing Short Term Goal (STG) Decrease pain sufficient to allow patient to ambulate with full weight-bearing for short houshold distances with no increase in pain and no limp 11/08/20: good goal progress, mostly achieved, ambulating today with no device, short distances, mild limp. Slow, careful gait. STG Duration 11/25/20 Engineer Second Assistant Goal (LTG) Patient able to ambulate without assistive device all usual distances without an increase in pain and no limp 11/08/20: not able to ambulate usual distances at this time, has just weaned off using his walking boot and assistive device. LTG Duration 01/06/21 Two Impairment moderate edema right foot/ ankle Short Term Goal (STG) Decrease edema right foot and ankle by at least 2 cm circumferential measurements 11/08/20: good goal progress, and patient has ordered compression stockings STG Duration 10/30/20 Skilled Nursing Goal (LTG) Decrease swelling right foot and ankle to mild, with patient to demonstrate appropriate self-management to include elevation, ice, and use of compression. 11/08/20: good goal progress. LTG Duration 01/06/21 One Impairment pain right foot/ankle 6/10 Short Term Goal (STG) Decrease pain to no greater than 4/10 right foot/ankle 11/08/20: goal met STG Duration MET Skilled Nursing Goal (LTG) Patient able to tolerate usual activities including ADL's and IADl's without pain greater than 2/10 on pain scale 11/08/20: pain 4/10 at this time. LTG Duration 01/06/21 Assessment Summary Assessment Decreased swelling, improved ankle mobility and gait today. Patient reported when I came in today I didn't feel like I could hardly walk, feel much better now, good day! Demonstrated good understanding of theraband and tandem stand additions to HEP Physical Therapy Plan Frequency and Duration Frequency of Treatment 2x/wk Duration of Treatment 12 weeks Plan of Care Start Date 09/28/20 Plan of Care End Date 12/27/20 Therapeutic Interventions Therapeutic Interventions Gait Training,Home Exercise Program,Manual Therapy,Patient /Caregiver Education,Self-Care /Home Management,Taping, Therapeutic Activities, Therapeutic Exercises Modalities Cold Pack/Ice Massage,Electric Stimulation,Hot Packs, Infrared Therapy,Iontophoresis Other Therapeutic Interventions No ultrasound due to pins from prior fracture Next Visit Focus/Plan Next Note Type Treatment Note Next Visit Plan Continue working on balance, increasing stance time on RLE and ending session with IFC and cryocuff
--- NOTE | 2020-12-01 09:24 | PT.OTN ---
Current Diagnoses Other chronic pain (12/01/20) Pain in unspecified ankle and joints of unspecified foot (12/01/20) Difficulty in walking, not elsewhere classified (12/01/20) Physical Therapy Treatment Note PT-OP-A Visit Information Start: 09/28/20 08:18 Freq: Status: Active Protocol: Document 12/01/20 08:15 SP (Rec: 12/01/20 09:23 SP [id number]) Out-Patient Physical Therapy Visit Information Visit Information Visit Type Treatment Note Visit Start Time 08:15 Visit Stop Time 09:24 Total Visit Minutes 49 Visit Number 16 Number of DRAFTER (CAD) ELECTRICAL Visits 1 PT-OP-B Current Condition Start: 09/28/20 08:18 Freq: Status: Active Protocol: Document 09/28/20 09:01 SAK (Rec: 09/28/20 09:54 SAK [id number]) Current Condition History of Current Condition Onset Date 3 months Current Complaints acute onset right foot and ankle History of Current Condition No known cause for onset pain, using axillary crutches, has had to severely limit his activity. Patient has complicated medical history with neck surgery, back surgery, carpal tunnel syndrome, right knee pain. Was being seen for rehab of lumbar spine surgery recently, completed that rehab but has had this ongoing right ankle/ foot pain. Physician hasn't reviewed his MRI of his foot taken one month ago because when seen last week having severe right knee pain and went to ER. Diagnosed with cellulitis, finishing antibiotics today, pain decreased but persists. Prior distal tib/fib fracture requiring ORIF right ankle 1994. Prior Treatments and Tests MRI 09/05/20: posterior tibialis tendinosis, sinus tarsi syndrome Treatment Goals Patient/Caregiver Goals Decrease pain and swelling and be able to ambulate without assitive devicde Prior Functional Status Baseline Function- ADL's Independent Baseline Function- Mobility Independent Baseline Function- Gait independent no device Baseline Function- Recreation/Hobbies going to the beach with dog for walks, fishing Current Functional Impairments (Reported) Functional Limitations- ADL's has to use crutches Functional Limitations- Mobility/Gait limited due to use of crutches Functional Limitations- Work/School retired/disabled Functional Limitations- Recreation/ unable to take walks or go Hobbies fishing due to ankle dysfunction Personal Factors Other Personal Factors That May Effect multiple comorbidities Therapy/Recovery PT-OP-C Subjective Start: 09/28/20 08:18 Freq: Status: Active Protocol: Document 12/01/20 08:15 SP (Rec: 12/01/20 09:23 SP [id number]) OP-PT Subjective Patient Comments Patient Comments Pt stated ankle swollen after had his coffee. At times has brief shooting range up med/ lat tib/fib f/b during IV/ DF range unsure why. PT-OP-F Manual Assessment Start: 09/28/20 08:18 Freq: Status: Active Protocol: Document 09/28/20 09:01 SAK (Rec: 09/28/20 12:57 SAK [id number]) Manual Assessments Joint Mobility Assessment Joint Mobility Assessment unable to assess due to high pain level PT-OP-G Mobility & Gait Start: 09/28/20 08:18 Freq: Status: Active Protocol: Document 09/28/20 09:01 SAK (Rec: 09/28/20 12:57 SAK [id number]) OP Gait Assessment Gait Gait Assistance Required: Independent Assistive Devices Assistive Device Axillary Crutches Gait Deviations General Gait Pattern Within Normal Limits Factors Limiting Gait Function Factors Limiting Gait Function Pain PT-OP-H Neuro Start: 09/28/20 08:18 Freq: Status: Active Protocol: Document 09/28/20 09:01 SAK (Rec: 09/28/20 12:57 SAK [id number]) Sensation Evaluation Gross Sensation Gross Sensation WNL PT-OP-J Posture/Palpation/Skin Start: 09/28/20 08:18 Freq: Status: Active Protocol: Document 09/28/20 09:01 SAK (Rec: 09/28/20 12:57 SAK [id number]) Skin Assessment Edema Assessment right foot and ankle Edema Type Pitting Edema Degree 3+ Edema Appearance Taut Subjective Edema Description Pain,Tightness Circumference Measurement 4 Location 10 cm proximal malleoli Comments left 24.8, right 27.1 3 Location 5 cm proximal malleoli Comments left 23.3, right 25.2 2 Location malleolar Comments left 28.0, right 34.2 1 Location midfoot Comments left 24.4, right 24.8 PT-OP-K Range of Motion Start: 09/28/20 08:18 Freq: Status: Active Protocol: Document 09/28/20 09:01 SAK (Rec: 09/28/20 12:57 SAK [id number]) Knee Goniometric Range of Motion Knee coleen Knee ROM WFL Yes Ankle and Foot Goniometric Range of Motion Ankle and Foot Right Ankle/Foot ROM WFL No Testing Position Sitting Dorsiflexion with Knee Flexed 0 Plantarflexion 35 Inversion 25 Eversion 30 Left Ankle/Foot ROM WFL Yes Ankle and Foot ROM Limitations ROM Limitations Pain,Swelling PT-OP-M Strength Start: 09/28/20 08:18 Freq: Status: Active Protocol: Document 09/28/20 09:01 SAK (Rec: 09/28/20 12:57 [facility] [id number]) Ankle/Foot Strength Ankle and Foot Manual Muscle Testing Left Dorsiflexion (L4) 5 Normal Plantarflexion (S1) 5 Normal Inversion 5 Normal Eversion (S1) 5 Normal Right Comments not tested due to pain PT-OP-Q Treatments Start: 09/28/20 08:18 Freq: Status: Active Protocol: Document 12/01/20 08:15 SP (Rec: 12/01/20 09:23 SP [id number]) Cardio Equipment Recumbent Elliptical (Biodex) Duration (Minutes) 10 Resistance 4 Seat Position 11 Other LE's only, SPM Gym Equipment Shuttle Balance chains red Details WBOS Reps/Duration 4 min Comments balance and weight shift front /back, added head turns CG- low min assist, EO 10 sec unsteady Min A hover hands Therapeutic Exercises Sitting Exercises ankle df, inv, ev Sitting Exercise Name HEP review Side right Resistance L2 TB Reps/Minutes 10x ea Comments cued slow controlled movement BAPS Sitting Exercise Name df/pf/inv/ev/CW/CCW Equipment Used L4 Reps/Minutes 10x ea, added CW/ CCW x3 each Comments cued keep 1st MTP contact on board Manual Therapy Treatment Soft Tissue Mobilization right ankle Body Location R ankle and plantar fascia Mobilization Type Myofascial Release,Other Intensity/Depth Deep Body Position Supine Comments R anterior tibialis, peroneals , extensor digitorium, extensor hallucis longus. PT-OP-R Modalities Start: 09/28/20 08:18 Freq: Status: Active Protocol: Document 12/01/20 08:15 SP (Rec: 12/01/20 09:23 SP [id number]) Electric Stimulation Electric Stimulation IFC Body Location right foot/ankle Duration (Minutes) 10 Intensity 36 Target/Sweep Sweep High/Low High Patient Position Hooklying Combined With Heat/Cold Cold Pack Comments Intensity at 36 today w/ cryocuff *Pt states has neuropathy and cant really feel much. PT-OP-T Assessment and Plan Start: 09/28/20 08:18 Freq: Status: Active Protocol: Document 12/01/20 08:15 SP (Rec: 12/01/20 09:23 SP [id number]) Physical Therapy Assessment Goals Six Impairment balance dysfunction SLS 4 sec, tandem 12sesc Longterm Goal (LTG) Patient will improve SLS to 10 sec coleen and tandem stand to at least 20 sec to improve safety witn mobility LTG Duration goal abandoned due to foot/ ankle injury Five Impairment QuickDash UE disability index score 95% Short Term Goal (STG) Decrease Quickdash UE disability index score to no greater than 60% 07/30/19: good goal progress STG Duration MET Manager Medical Writing Goal (LTG) Decrease Quickdash UE disability index score to no greater than 30% including able to reach overhead and behind his back for ADL's and usual daily activities without difficulty 07/30/19: good goal progress 08/11/20: decreased to 43%. LTG Duration Goal met Four Impairment Decreased flexibility in bilateral hips Manager Medical Writing Goal (LTG) Improve PSLR to at least 75 degrees, hip ER to 70 and hip IR to 45 to improve overall function 07/12/20: good goal progress 08/11/20: PSLR increased to 65, ER to 60, IR to 30. LTG Duration Goal met Three Impairment gait dysfunction; requires use of crutches, unable to tolerate wt.-bearing Short Term Goal (STG) Decrease pain sufficient to allow patient to ambulate with full weight-bearing for short houshold distances with no increase in pain and no limp 11/08/20: good goal progress, mostly achieved, ambulating today with no device, short distances, mild limp. Slow, careful gait. STG Duration 11/25/20 Manager Medical Writing Goal (LTG) Patient able to ambulate without assistive device all usual distances without an increase in pain and no limp 11/08/20: not able to ambulate usual distances at this time, has just weaned off using his walking boot and assistive device. LTG Duration 01/06/21 Two Impairment moderate edema right foot/ ankle Short Term Goal (STG) Decrease edema right foot and ankle by at least 2 cm circumferential measurements 11/08/20: good goal progress, and patient has ordered compression stockings STG Duration 10/30/20 Manager Medical Writing Goal (LTG) Decrease swelling right foot and ankle to mild, with patient to demonstrate appropriate self-management to include elevation, ice, and use of compression. 11/08/20: good goal progress. LTG Duration 01/06/21 One Impairment pain right foot/ankle 6/10 Short Term Goal (STG) Decrease pain to no greater than 4/10 right foot/ankle 11/08/20: goal met STG Duration MET Longterm Goal (LTG) Patient able to tolerate usual activities including ADL's and IADl's without pain greater than 2/10 on pain scale 11/08/20: pain 4/10 at this time. LTG Duration 01/06/21 Assessment Summary Assessment Pt tolerated tx well, extra time spend on quality slow ankle movement for muscular control and increased ROM. Adjusted Tb positioning and good more focused movement in tarsals, good feedback. Manual retro grade and IFC/ cryocuff combo end of tx for swelling assist. Physical Therapy Plan Frequency and Duration Frequency of Treatment 2x/wk Duration of Treatment 12 weeks Plan of Care Start Date 09/28/20 Plan of Care End Date 12/27/20 Therapeutic Interventions Therapeutic Interventions Gait Training,Home Exercise Program,Manual Therapy,Patient /Caregiver Education,Self-Care /Home Management,Taping, Therapeutic Activities, Therapeutic Exercises Modalities Cold Pack/Ice Massage,Electric Stimulation,Hot Packs, Infrared Therapy,Iontophoresis Other Therapeutic Interventions No ultrasound due to pins from prior fracture Next Visit Focus/Plan Next Note Type Treatment Note Next Visit Plan Continue working on balance, increasing stance time on RLE and ending session with IFC and cryocuff
--- NOTE | 2020-12-06 09:15 | PT.OTN ---
Current Diagnoses Other chronic pain (12/06/20) Pain in unspecified ankle and joints of unspecified foot (12/06/20) Difficulty in walking, not elsewhere classified (12/06/20) Physical Therapy Treatment Note PT-OP-A Visit Information Start: 09/28/20 08:18 Freq: Status: Active Protocol: Document 12/06/20 08:20 LD (Rec: 12/06/20 12:23 LD [id number]) Out-Patient Physical Therapy Visit Information Visit Information Visit Type Treatment Note Visit Note COTY Felton Led the treatment with supervision of YAMILA Camara . Visit Start Time 08:20 Visit Stop Time 09:15 Total Visit Minutes 55 Visit Number 17 Number of RESPIRATORY THERAPIST ASSISTANT Visits 2 PT-OP-B Current Condition Start: 09/28/20 08:18 Freq: Status: Active Protocol: Document 09/28/20 09:01 SAK (Rec: 09/28/20 09:54 SAK [id number]) Current Condition History of Current Condition Onset Date 3 months Current Complaints acute onset right foot and ankle History of Current Condition No known cause for onset pain, using axillary crutches, has had to severely limit his activity. Patient has complicated medical history with neck surgery, back surgery, carpal tunnel syndrome, right knee pain. Was being seen for rehab of lumbar spine surgery recently, completed that rehab but has had this ongoing right ankle/ foot pain. Physician hasn't reviewed his MRI of his foot taken one month ago because when seen last week having severe right knee pain and went to ER. Diagnosed with cellulitis, finishing antibiotics today, pain decreased but persists. Prior distal tib/fib fracture requiring ORIF right ankle 1994. Prior Treatments and Tests MRI 09/05/20: posterior tibialis tendinosis, sinus tarsi syndrome Treatment Goals Patient/Caregiver Goals Decrease pain and swelling and be able to ambulate without assitive devicde Prior Functional Status Baseline Function- ADL's Independent Baseline Function- Mobility Independent Baseline Function- Gait independent no device Baseline Function- Recreation/Hobbies going to the beach with dog for walks, fishing Current Functional Impairments (Reported) Functional Limitations- ADL's has to use crutches Functional Limitations- Mobility/Gait limited due to use of crutches Functional Limitations- Work/School retired/disabled Functional Limitations- Recreation/ unable to take walks or go Hobbies fishing due to ankle dysfunction Personal Factors Other Personal Factors That May Effect multiple comorbidities Therapy/Recovery PT-OP-C Subjective Start: 09/28/20 08:18 Freq: Status: Active Protocol: Document 12/06/20 08:20 LD (Rec: 12/06/20 12:23 LD [id number]) OP-PT Subjective Patient Comments Patient Comments Pt reports ankle is doing better, decreased swelling with increased mobility with therapy and Dr Crain Is performing self manual and HEP , noticing gains in ROM incline, decline and stability in walking on the sand in the [facility]. Patient Reported Progress Improving PT-OP-F Manual Assessment Start: 09/28/20 08:18 Freq: Status: Active Protocol: Document 09/28/20 09:01 SAK (Rec: 09/28/20 12:57 SAK [id number]) Manual Assessments Joint Mobility Assessment Joint Mobility Assessment unable to assess due to high pain level PT-OP-G Mobility & Gait Start: 09/28/20 08:18 Freq: Status: Active Protocol: Document 09/28/20 09:01 SAK (Rec: 09/28/20 12:57 [facility] [id number]) OP Gait Assessment Gait Gait Assistance Required: Independent Assistive Devices Assistive Device Axillary Crutches Gait Deviations General Gait Pattern Within Normal Limits Factors Limiting Gait Function Factors Limiting Gait Function Pain PT-OP-H Neuro Start: 09/28/20 08:18 Freq: Status: Active Protocol: Document 09/28/20 09:01 SAK (Rec: 09/28/20 12:57 [facility] [id number]) Sensation Evaluation Gross Sensation Gross Sensation WNL PT-OP-J Posture/Palpation/Skin Start: 09/28/20 08:18 Freq: Status: Active Protocol: Document 09/28/20 09:01 SAK (Rec: 09/28/20 12:57 SAK [id number]) Skin Assessment Edema Assessment right foot and ankle Edema Type Pitting Edema Degree 3+ Edema Appearance Taut Subjective Edema Description Pain,Tightness Circumference Measurement 4 Location 10 cm proximal malleoli Comments left 24.8, right 27.1 3 Location 5 cm proximal malleoli Comments left 23.3, right 25.2 2 Location malleolar Comments left 28.0, right 34.2 1 Location midfoot Comments left 24.4, right 24.8 PT-OP-K Range of Motion Start: 09/28/20 08:18 Freq: Status: Active Protocol: Document 09/28/20 09:01 SAK (Rec: 09/28/20 12:57 SAK [id number]) Knee Goniometric Range of Motion Knee coleen Knee ROM WFL Yes Ankle and Foot Goniometric Range of Motion Ankle and Foot Right Ankle/Foot ROM WFL No Testing Position Sitting Dorsiflexion with Knee Flexed 0 Plantarflexion 35 Inversion 25 Eversion 30 Left Ankle/Foot ROM WFL Yes Ankle and Foot ROM Limitations ROM Limitations Pain,Swelling PT-OP-M Strength Start: 09/28/20 08:18 Freq: Status: Active Protocol: Document 09/28/20 09:01 SAK (Rec: 09/28/20 12:57 SAK [id number]) Ankle/Foot Strength Ankle and Foot Manual Muscle Testing Left Dorsiflexion (L4) 5 Normal Plantarflexion (S1) 5 Normal Inversion 5 Normal Eversion (S1) 5 Normal Right Comments not tested due to pain PT-OP-Q Treatments Start: 09/28/20 08:18 Freq: Status: Active Protocol: Document 12/06/20 08:20 LD (Rec: 12/06/20 12:23 LD [id number]) Cardio Equipment Recumbent Elliptical ([employer]) Duration (Minutes) 10 Resistance 4 Seat Position 11 Other LE's only, SPM Gym Equipment Shuttle Balance chains red Details WBOS, NBOS, Stagger Reps/Duration 5 min Comments balance, weight shift front/ back, added head turns, CG- low min assist, EO 7 sec staggered w/ L foot in back, 5 sec w/ R foot in back unsteady Min A. Therapeutic Exercises Standing Exercises tandem stand Standing Exercise Name HEP reiew Equipment Used corner, chair Reps/Minutes 5 min Comments tandem unsteady -> staggered safe for home Manual Therapy Treatment Soft Tissue Mobilization right ankle Body Location R ankle Mobilization Type Myofascial Release,Other Intensity/Depth Deep Body Position Supine Comments R anterior tibialis, extensor digitorium, extensor hallucis longus. PT-OP-R Modalities Start: 09/28/20 08:18 Freq: Status: Active Protocol: Document 12/06/20 08:20 LD (Rec: 12/06/20 12:23 LD [id number]) Electric Stimulation Electric Stimulation Biphasic [place] Body Location R upper calf and guillaume Duration (Minutes) 10 Intensity 76 soleus, 82 ant fib Contraction Type Reciprocal Target/Sweep Target Cycle 10/10 Ramp 2.0 Patient Position Hooklying Combined With Heat/Cold Cold Pack Comments Muscle facilitation to increase ROM dorsiflexion. w/ crycuff. PT-OP-T Assessment and Plan Start: 09/28/20 08:18 Freq: Status: Active Protocol: Document 12/06/20 08:20 LD (Rec: 12/06/20 12:23 LD [id number]) Physical Therapy Assessment Goals Six Impairment balance dysfunction SLS 4 sec, tandem 12sesc [employer] Job [employer]les Goal (LTG) Patient will improve SLS to 10 sec coleen and tandem stand to at least 20 sec to improve safety witn mobility LTG Duration goal abandoned due to foot/ ankle injury Five Impairment QuickDash UE disability index score 95% Short Term Goal (STG) Decrease Quickdash UE disability index score to no greater than 60% 07/30/19: good goal progress STG Duration MET [employer] Job Titles Goal (LTG) Decrease Quickdash UE disability index score to no greater than 30% including able to reach overhead and behind his back for ADL's and usual daily activities without difficulty 07/30/19: good goal progress 08/11/20: decreased to 43%. LTG Duration Goal met Four Impairment Decreased flexibility in bilateral hips [facility] Goal (LTG) Improve PSLR to at least 75 degrees, hip ER to 70 and hip IR to 45 to improve overall function 07/12/20: good goal progress 08/11/20: PSLR increased to 65, ER to 60, IR to 30. LTG Duration Goal met Three Impairment gait dysfunction; requires use of crutches, unable to tolerate wt.-bearing Short Term Goal (STG) Decrease pain sufficient to allow patient to ambulate with full weight-bearing for short houshold distances with no increase in pain and no limp 11/08/20: good goal progress, mostly achieved, ambulating today with no device, short distances, mild limp. Slow, careful gait. STG Duration 11/25/20 [facility] Goal (LTG) Patient able to ambulate without assistive device all usual distances without an increase in pain and no limp 11/08/20: not able to ambulate usual distances at this time, has just weaned off using his walking boot and assistive device. LTG Duration 01/06/21 Two Impairment moderate edema right foot/ ankle Short Term Goal (STG) Decrease edema right foot and ankle by at least 2 cm circumferential measurements 11/08/20: good goal progress, and patient has ordered compression stockings STG Duration 10/30/20 Non [employer]fit Job Titles Goal (LTG) Decrease swelling right foot and ankle to mild, with patient to demonstrate appropriate self-management to include elevation, ice, and use of compression. 11/08/20: good goal progress. LTG Duration 01/06/21 One Impairment pain right foot/ankle 6/10 Short Term Goal (STG) Decrease pain to no greater than 4/10 right foot/ankle 11/08/20: goal met STG Duration MET [facility] Goal (LTG) Patient able to tolerate usual activities including ADL's and IADl's without pain greater than 2/10 on pain scale 11/08/20: pain 4/10 at this time. LTG Duration 01/06/21 Progress Towards Goals Progress Towards Goals Progressing Toward Goals Assessment Summary Assessment Pt noted and is ready for discharge, 2 appts left. Pt challenged by staggered stance w/ eyes closed on shuttle balance. Decrease of swelling in ankle after doing self massage at home and from Dr. Shen. Great feedback with active DF and PF, [place]er Estim, feels better movement in dorsiflexion after ambulating. Physical Therapy Plan Frequency and Duration Frequency of Treatment 2x/wk Duration of Treatment 12 weeks Plan of Care Start Date 09/28/20 Plan of Care End Date 12/27/20 Therapeutic Interventions Therapeutic Interventions Gait Training,Home Exercise Program,Manual Therapy,Patient /Caregiver Education,Self-Care /Home Management,Taping, Therapeutic Activities, Therapeutic Exercises Modalities Cold Pack/Ice Massage,Electric Stimulation,Hot Packs, Infrared Therapy,Iontophoresis Other Therapeutic Interventions No ultrasound due to pins from prior fracture Next Visit Focus/Plan Next Note Type Treatment Note Next Visit Plan Continue working on balance, increasing stance time on RLE and ending session with [place]er Estim and cryocuff if needed/preferred.
--- NOTE | 2020-12-12 16:34 | PT.OTN ---
Current Diagnoses Other chronic pain (12/08/20) Pain in unspecified ankle and joints of unspecified foot (12/08/20) Difficulty in walking, not elsewhere classified (12/08/20) Physical Therapy Treatment Note PT-OP-A Visit Information Start: 09/28/20 08:18 Freq: Status: Active Protocol: Document 12/08/20 08:15 LD (Rec: 12/08/20 09:02 LD [id number]) Out-Patient Physical Therapy Visit Information Visit Information Visit Type Treatment Note Visit Note COTY Felton led/co treat tx w/ supervision of PT Simin. Visit Start Time 08:15 Visit Stop Time 09:10 Total Visit Minutes 55 Visit Number 18 Number of [employer]OL [employer] Visits 3 PT-OP-B Current Condition Start: 09/28/20 08:18 Freq: Status: Active Protocol: Document 09/28/20 09:01 SAK (Rec: 09/28/20 09:54 SAK [id number]) Current Condition History of Current Condition Onset Date 3 months Current Complaints acute onset right foot and ankle History of Current Condition No known cause for onset pain, using axillary crutches, has had to severely limit his activity. Patient has complicated medical history with neck surgery, back surgery, carpal tunnel syndrome, right knee pain. Was being seen for rehab of lumbar spine surgery recently, completed that rehab but has had this ongoing right ankle/ foot pain. Physician hasn't reviewed his MRI of his foot taken one month ago because when seen last week having severe right knee pain and went to ER. Diagnosed with cellulitis, finishing antibiotics today, pain decreased but persists. Prior distal tib/fib fracture requiring ORIF right ankle 1994. Prior Treatments and Tests MRI 09/05/20: posterior tibialis tendinosis, sinus tarsi syndrome Treatment Goals Patient/Caregiver Goals Decrease pain and swelling and be able to ambulate without assitive devicde Prior Functional Status Baseline Function- ADL's Independent Baseline Function- Mobility Independent Baseline Function- Gait independent no device Baseline Function- Recreation/Hobbies going to the beach with dog for walks, fishing Current Functional Impairments (Reported) Functional Limitations- ADL's has to use crutches Functional Limitations- Mobility/Gait limited due to use of crutches Functional Limitations- Work/School retired/disabled Functional Limitations- Recreation/ unable to take walks or go Hobbies fishing due to ankle dysfunction Personal Factors Other Personal Factors That May Effect multiple comorbidities Therapy/Recovery PT-OP-C Subjective Start: 09/28/20 08:18 Freq: Status: Active Protocol: Document 12/08/20 08:15 LD (Rec: 12/08/20 09:02 LD [id number]) OP-PT Subjective Patient Comments Patient Comments Pt reports ankle mobility is contiuously improving, no pain or swelling, 'I feel like I can trust my right ankle more' . Patient Reported Progress Improving PT-OP-F Manual Assessment Start: 09/28/20 08:18 Freq: Status: Active Protocol: Document 09/28/20 09:01 SAK (Rec: 09/28/20 12:57 SAK [id number]) Manual Assessments Joint Mobility Assessment Joint Mobility Assessment unable to assess due to high pain level PT-OP-G Mobility & Gait Start: 09/28/20 08:18 Freq: Status: Active Protocol: Document 09/28/20 09:01 SAK (Rec: 09/28/20 12:57 SAK [id number]) OP Gait Assessment Gait Gait Assistance Required: Independent Assistive Devices Assistive Device Axillary Crutches Gait Deviations General Gait Pattern Within Normal Limits Factors Limiting Gait Function Factors Limiting Gait Function Pain PT-OP-H Neuro Start: 09/28/20 08:18 Freq: Status: Active Protocol: Document 09/28/20 09:01 SAK (Rec: 09/28/20 12:57 [facility] [id number]) Sensation Evaluation Gross Sensation Gross Sensation WNL PT-OP-J Posture/Palpation/Skin Start: 09/28/20 08:18 Freq: Status: Active Protocol: Document 09/28/20 09:01 SAK (Rec: 09/28/20 12:57 SAK [id number]) Skin Assessment Edema Assessment right foot and ankle Edema Type Pitting Edema Degree 3+ Edema Appearance Taut Subjective Edema Description Pain,Tightness Circumference Measurement 4 Location 10 cm proximal malleoli Comments left 24.8, right 27.1 3 Location 5 cm proximal malleoli Comments left 23.3, right 25.2 2 Location malleolar Comments left 28.0, right 34.2 1 Location midfoot Comments left 24.4, right 24.8 PT-OP-K Range of Motion Start: 09/28/20 08:18 Freq: Status: Active Protocol: Document 09/28/20 09:01 [facility] (Rec: 09/28/20 12:57 [facility] [id number]) Knee Goniometric Range of Motion Knee coleen Knee ROM WFL Yes Ankle and Foot Goniometric Range of Motion Ankle and Foot Right Ankle/Foot ROM WFL No Testing Position Sitting Dorsiflexion with Knee Flexed 0 Plantarflexion 35 Inversion 25 Eversion 30 Left Ankle/Foot ROM WFL Yes Ankle and Foot ROM Limitations ROM Limitations Pain,Swelling PT-OP-M Strength Start: 09/28/20 08:18 Freq: Status: Active Protocol: Document 09/28/20 09:01 [facility] (Rec: 09/28/20 12:57 [facility] [id number]) Ankle/Foot Strength Ankle and Foot Manual Muscle Testing Left Dorsiflexion (L4) 5 Normal Plantarflexion (S1) 5 Normal Inversion 5 Normal Eversion (S1) 5 Normal Right Comments not tested due to pain PT-OP-Q Treatments Start: 09/28/20 08:18 Freq: Status: Active Protocol: Document 12/08/20 08:15 LD (Rec: 12/08/20 09:02 LD [id number]) Cardio Equipment Recumbent Elliptical (Biodex) Duration (Minutes) 10 Resistance 4 Seat Position 11 Gym Equipment Shuttle Balance chains red Details WBOS, NBOS, Stagger Reps/Duration 5 min Comments Balance, head turns, eyes closed, CG-low min A, EO 14 sec staggered w/ L foot in back, 10 sec w/ R foot in back , w/ better control low min A. Therapeutic Exercises Standing Exercises Gastroc stretch Side right Reps/Minutes 2x30 sec tandem stand Standing Exercise Name HEP reiew Side bilateral Equipment Used corner, chair Reps/Minutes 5 min Comments tandem is improving, able to hold for 20 sec R foot behind, 30 sec L behind Manual Therapy Treatment Soft Tissue Mobilization right ankle Body Location R ankle Mobilization Type Myofascial Release,Other Intensity/Depth Deep Body Position Supine Comments R anterior tibialis, extensor digitorium, extensor hallucis longus. PT-OP-R Modalities Start: 09/28/20 08:18 Freq: Status: Active Protocol: Document 12/08/20 08:15 LD (Rec: 12/08/20 09:02 LD [id number]) Electric Stimulation Electric Stimulation Biphasic Citizen Of [place] Body Location R upper calf and guillaume Duration (Minutes) 10 Intensity 72 soleus, 88 ant fib Contraction Type Reciprocal Target/Sweep Target Cycle 10/10 Ramp 2.0 Patient Position Hooklying Combined With Heat/Cold Cold Pack Comments Muscle facilitation to increase ROM dorsiflexion. w/ crycuff. PT-OP-T Assessment and Plan Start: 09/28/20 08:18 Freq: Status: Active Protocol: Document 12/08/20 08:15 LD (Rec: 12/08/20 09:02 LD [id number]) Physical Therapy Assessment Rehab Potential Rehabilitation Potential Good Evaluation Complexity Number of Personal Factors/Comorbidities 3 or More Number of Body Systems Impaired 4 or More Clinical Presentation at Evaluation Evolving Impairments Impairments Edema,Functional Activities, Gait,Pain Goals Six Impairment balance dysfunction SLS 4 sec, tandem 12sesc Loading Inspector Goal (LTG) Patient will improve SLS to 10 sec coleen and tandem stand to at least 20 sec to improve safety witn mobility LTG Duration goal abandoned due to foot/ ankle injury Five Impairment QuickDash UE disability index score 95% Short Term Goal (STG) Decrease Quickdash UE disability index score to no greater than 60% 07/30/19: good goal progress STG Duration MET Loading Inspector Goal (LTG) Decrease Quickdash UE disability index score to no greater than 30% including able to reach overhead and behind his back for ADL's and usual daily activities without difficulty 07/30/19: good goal progress 08/11/20: decreased to 43%. LTG Duration Goal met Four Impairment Decreased flexibility in bilateral hips Loading Inspector Goal (LTG) Improve PSLR to at least 75 degrees, hip ER to 70 and hip IR to 45 to improve overall function 07/12/20: good goal progress 08/11/20: PSLR increased to 65, ER to 60, IR to 30. LTG Duration Goal met Three Impairment gait dysfunction; requires use of crutches, unable to tolerate wt.-bearing Short Term Goal (STG) Decrease pain sufficient to allow patient to ambulate with full weight-bearing for short houshold distances with no increase in pain and no limp 11/08/20: good goal progress, mostly achieved, ambulating today with no device, short distances, mild limp. Slow, careful gait. STG Duration 11/25/20 Loading Inspector Goal (LTG) Patient able to ambulate without assistive device all usual distances without an increase in pain and no limp 11/08/20: not able to ambulate usual distances at this time, has just weaned off using his walking boot and assistive device. LTG Duration 01/06/21 Two Impairment moderate edema right foot/ ankle Short Term Goal (STG) Decrease edema right foot and ankle by at least 2 cm circumferential measurements 11/08/20: good goal progress, and patient has ordered compression stockings STG Duration 10/30/20 Loading Inspector Goal (LTG) Decrease swelling right foot and ankle to mild, with patient to demonstrate appropriate self-management to include elevation, ice, and use of compression. 11/08/20: good goal progress. LTG Duration 01/06/21 One Impairment pain right foot/ankle 6/10 Short Term Goal (STG) Decrease pain to no greater than 4/10 right foot/ankle 11/08/20: goal met STG Duration MET Group Home Goal (LTG) Patient able to tolerate usual activities including ADL's and IADl's without pain greater than 2/10 on pain scale 11/08/20: pain 4/10 at this time. LTG Duration 01/06/21 Progress Towards Goals Progress Towards Goals Progressing Toward Goals Assessment Summary Assessment Pt balance is improving, more controlled on shuttle balance and tandem corner. Improved ankle mobility and gait. Pt noted that weight shift is almost the same on each side, '45% on R and 55% on L'. No additional increase in swelling. Physical Therapy Plan Frequency and Duration Frequency of Treatment 2x/wk Duration of Treatment 12 weeks Plan of Care Start Date 09/28/20 Plan of Care End Date 12/27/20 Therapeutic Interventions Therapeutic Interventions Gait Training,Home Exercise Program,Manual Therapy,Patient /Caregiver Education,Self-Care /Home Management,Taping, Therapeutic Activities, Therapeutic Exercises Modalities Cold Pack/Ice Massage,Electric Stimulation,Hot Packs, Infrared Therapy,Iontophoresis Other Therapeutic Interventions No ultrasound due to pins from prior fracture Next Visit Focus/Plan Next Note Type Treatment Note Next Visit Plan Continue working on balance, increasing stance time on RLE and ending session with Citizen [place] Estim and cryocuff.
--- NOTE | 2020-12-13 09:12 | PT.OTN ---
Current Diagnoses Other chronic pain (12/13/20) Pain in unspecified ankle and joints of unspecified foot (12/13/20) Difficulty in walking, not elsewhere classified (12/13/20) Physical Therapy Treatment Note PT-OP-A Visit Information Start: 09/28/20 08:18 Freq: Status: Active Protocol: Document 12/13/20 08:15 LD (Rec: 12/13/20 09:31 LD [id number]) Out-Patient Physical Therapy Visit Information Visit Information Visit Type Treatment Note Visit Note COTY Felton co-led tx w/ supervision of YAMILA Camara. 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 Patient has complicated medical history with neck surgery, back surgery, carpal tunnel syndrome, right knee pain. Was being seen for rehab of lumbar spine surgery recently, completed that rehab but has had this ongoing right ankle/ foot pain. Physician hasn't reviewed his MRI of his foot taken one month ago because when seen last week having severe right knee pain and went to ER. Diagnosed with cellulitis, finishing antibiotics today, pain decreased but persists. Prior distal tib/fib fracture requiring ORIF right ankle 1994. Prior Treatments and Tests MRI 09/05/20: posterior tibialis tendinosis, sinus tarsi syndrome Treatment Goals Patient/Caregiver Goals Decrease pain and swelling and be able to ambulate without assitive devicde Prior Functional Status Baseline Function- ADL's Independent Baseline Function- Mobility Independent Baseline Function- Gait independent no device Baseline Function- Recreation/Hobbies going to the beach with dog for walks, fishing Current Functional Impairments (Reported) Functional Limitations- ADL's has to use crutches Functional Limitations- Mobility/Gait limited due to use of crutches Functional Limitations- Work/School retired/disabled Functional Limitations- Recreation/ unable to take walks or go Hobbies fishing due to ankle dysfunction Personal Factors Other Personal Factors That May Effect multiple comorbidities Therapy/Recovery PT-OP-C Subjective Start: 09/28/20 08:18 Freq: Status: Active Protocol: Document 12/13/20 08:15 LD (Rec: 12/13/20 09:31 LD [id number]) OP-PT Subjective Patient Comments Patient Comments Pt reports that he has a knot medial top R ankle, has to dissipate before walking. States had a difficult time walking the beach, usually walks a mile around the [place] but couldn't do it. Pt noted is on the waiting list for self aquatic exercises at the pool until therapy can return. Patient Reported Progress Improving PT-OP-F Manual Assessment Start: 09/28/20 08:18 Freq: Status: Active Protocol: Document 09/28/20 09:01 [facility] (Rec: 09/28/20 12:57 [facility] [id number]) Manual Assessments Joint Mobility Assessment Joint Mobility Assessment unable to assess due to high pain level PT-OP-G Mobility & Gait Start: 09/28/20 08:18 Freq: Status: Active Protocol: Document 09/28/20 09:01 SAK (Rec: 09/28/20 12:57 [facility] [id number]) OP Gait Assessment Gait Gait Assistance Required: Independent Assistive Devices Assistive Device Axillary Crutches Gait Deviations General Gait Pattern Within Normal Limits Factors Limiting Gait Function Factors Limiting Gait Function Pain PT-OP-H Neuro Start: 09/28/20 08:18 Freq: Status: Active Protocol: Document 09/28/20 09:01 SAK (Rec: 09/28/20 12:57 [facility] [id number]) Sensation Evaluation Gross Sensation Gross Sensation WNL PT-OP-J Posture/Palpation/Skin Start: 09/28/20 08:18 Freq: Status: Active Protocol: Document 09/28/20 09:01 SAK (Rec: 09/28/20 12:57 SAK [id number]) Skin Assessment Edema Assessment right foot and ankle Edema Type Pitting Edema Degree 3+ Edema Appearance Taut Subjective Edema Description Pain,Tightness Circumference Measurement 4 Location 10 cm proximal malleoli Comments left 24.8, right 27.1 3 Location 5 cm proximal malleoli Comments left 23.3, right 25.2 2 Location malleolar Comments left 28.0, right 34.2 1 Location midfoot Comments left 24.4, right 24.8 PT-OP-K Range of Motion Start: 09/28/20 08:18 Freq: Status: Active Protocol: Document 09/28/20 09:01 SAK (Rec: 09/28/20 12:57 SAK [id number]) Knee Goniometric Range of Motion Knee coleen Knee ROM WFL Yes Ankle and Foot Goniometric Range of Motion Ankle and Foot Right Ankle/Foot ROM WFL No Testing Position Sitting Dorsiflexion with Knee Flexed 0 Plantarflexion 35 Inversion 25 Eversion 30 Left Ankle/Foot ROM WFL Yes Ankle and Foot ROM Limitations ROM Limitations Pain,Swelling PT-OP-M Strength Start: 09/28/20 08:18 Freq: Status: Active Protocol: Document 09/28/20 09:01 [facility] (Rec: 09/28/20 12:57 [facility] [id number]) Ankle/Foot Strength Ankle and Foot Manual Muscle Testing Left Dorsiflexion (L4) 5 Normal Plantarflexion (S1) 5 Normal Inversion 5 Normal Eversion (S1) 5 Normal Right Comments not tested due to pain PT-OP-Q Treatments Start: 09/28/20 08:18 Freq: Status: Active Protocol: Document 12/13/20 08:15 LD (Rec: 12/13/20 09:31 LD [id number]) Cardio Equipment Recumbent Elliptical (BiodFlashtalking) Duration (Minutes) 10 Resistance 5 Seat Position 11 Other 782 SPM Gym Equipment Shuttle Balance chains red Details WBOS, NBOS, Stagger Reps/Duration 5 min Comments Balance, head turns, EC. EC staggered: L- 17'' R- 13'' Therapeutic Exercises Sitting Exercises self STMS rolling stick/roller Sitting Exercise Name calves Side right Equipment Used roller Reps/Minutes 5 min Comments Released knot in mid calf while roll/rock/pin MWM PF/DF. Good response. Standing Exercises tandem stand Standing Exercise Name HEP review Side bilateral Equipment Used corner, chair Reps/Minutes 5 min Comments tandem improving, 24 sec R foot behind w/recovery, 30 sec L behind-unsteady Manual Therapy Treatment Joint Mobilizations Posterior [place] Joint Talocrural, talocalcaneal jts, PA of med/ lat malleolus Direction Posterior Grade I Body Position Sitting Reps/Duration 3 min Comments Posterior glide of tibia and fibula, med/ lat rotation calcaneous and cuboids. Taping Calcaneous Body Location R calcaneous Treatment Focus Heel support and pain relief Type of Tape Yaneht Skin Inspection intact and normal flesh color Comments instructed to remove if any adverse affects: redness, tingling, etc. otherwise can wear in shower until next tx. When removingn gentle for skin remain intact. PT-OP-R Modalities Start: 09/28/20 08:18 Freq: Status: Active Protocol: Document 12/13/20 08:15 LD (Rec: 12/13/20 09:31 LD [id number]) Electric Stimulation Electric Stimulation Biphasic [place] Body Location R upper calf and guillaume Duration (Minutes) 10 Intensity 66 soleus, 70 ant fib Contraction Type Reciprocal Target/Sweep Target Cycle 10/10 Ramp 2.0 Patient Position Hooklying Combined With Heat/Cold Cold Pack Comments Muscle facilitation to increase ROM dorsiflexion. w/ crycuff. PT-OP-T Assessment and Plan Start: 09/28/20 08:18 Freq: Status: Active Protocol: Document 12/13/20 08:15 LD (Rec: 12/13/20 09:31 LD [id number]) Physical Therapy Assessment Goals Six Impairment balance dysfunction SLS 4 sec, tandem 12sesc Custodial Goal (LTG) Patient will improve SLS to 10 sec coleen and tandem stand to at least 20 sec to improve safety witn mobility LTG Duration goal abandoned due to foot/ ankle injury Five Impairment QuickDash UE disability index score 95% Short Term Goal (STG) Decrease Quickdash UE disability index score to no greater than 60% 07/30/19: good goal progress STG Duration MET Automotive Leasing Sales Representative Goal (LTG) Decrease Quickdash UE disability index score to no greater than 30% including able to reach overhead and behind his back for ADL's and usual daily activities without difficulty 07/30/19: good goal progress 08/11/20: decreased to 43%. LTG Duration Goal met Four Impairment Decreased flexibility in bilateral hips Custodial Goal (LTG) Improve PSLR to at least 75 degrees, hip ER to 70 and hip IR to 45 to improve overall function 07/12/20: good goal progress 08/11/20: PSLR increased to 65, ER to 60, IR to 30. LTG Duration Goal met Three Impairment gait dysfunction; requires use of crutches, unable to tolerate wt.-bearing Short Term Goal (STG) Decrease pain sufficient to allow patient to ambulate with full weight-bearing for short houshold distances with no increase in pain and no limp 11/08/20: good goal progress, mostly achieved, ambulating today with no device, short distances, mild limp. Slow, careful gait. STG Duration 11/25/20 Automotive Leasing Sales Representative Goal (LTG) Patient able to ambulate without assistive device all usual distances without an increase in pain and no limp 11/08/20: not able to ambulate usual distances at this time, has just weaned off using his walking boot and assistive device. LTG Duration 01/06/21 Two Impairment moderate edema right foot/ ankle Short Term Goal (STG) Decrease edema right foot and ankle by at least 2 cm circumferential measurements 11/08/20: good goal progress, and patient has ordered compression stockings STG Duration 10/30/20 Automotive Leasing Sales Representative Goal (LTG) Decrease swelling right foot and ankle to mild, with patient to demonstrate appropriate self-management to include elevation, ice, and use of compression. 11/08/20: good goal progress. LTG Duration 01/06/21 One Impairment pain right foot/ankle 6/10 Short Term Goal (STG) Decrease pain to no greater than 4/10 right foot/ankle 11/08/20: goal met STG Duration MET Custodial Goal (LTG) Patient able to tolerate usual activities including ADL's and IADl's without pain greater than 2/10 on pain scale 11/08/20: pain 4/10 at this time. LTG Duration 01/06/21 Assessment Summary Assessment Pt presented w/ posterior and inferior calcaneal fat pad irritation at distal achilles attachment today. Challenged by tandem corner, balance and stability improved after posterior glides R ankle to increase DF and educating pt self STM, rolling stick R calf to release tension. Great feedback from patient on rolling stick. Provided R calcaneous taping for support and pain relief. Ended tx estim w/ cryocuff. Physical Therapy Plan Frequency and Duration Frequency of Treatment 2x/wk Duration of Treatment 12 weeks Plan of Care Start Date 09/28/20 Plan of Care End Date 12/27/20 Therapeutic Interventions Therapeutic Interventions Gait Training,Home Exercise Program,Manual Therapy,Patient /Caregiver Education,Self-Care /Home Management,Taping, Therapeutic Activities, Therapeutic Exercises Modalities Cold Pack/Ice Massage,Electric Stimulation,Hot Packs, Infrared Therapy,Iontophoresis Other Therapeutic Interventions No ultrasound due to pins from prior fracture Next Visit Focus/Plan Next Note Type Treatment Note Next Visit Plan Assess response to taping, self STM. Next tx assess posterior glide of ankle mobility using TB in standing anchored in door. Continue working on balance, increasing stance time on RLE and ending session with Filipino Estim and cryocuff.
--- NOTE | 2020-12-15 08:08 | PT-OP ANOTE ---
cancelled PT due to not feeling well
--- NOTE | 2020-12-20 16:34 | PT.OTN ---
Current Diagnoses Other chronic pain (12/20/20) Pain in unspecified ankle and joints of unspecified foot (12/20/20) Difficulty in walking, not elsewhere classified (12/20/20) Physical Therapy Treatment Note PT-OP-A Visit Information Start: 09/28/20 08:18 Freq: Status: Active Protocol: Document 12/20/20 08:18 SAK (Rec: 12/20/20 08:44 SAK [id number]) Out-Patient Physical Therapy Visit Information Visit Information Visit Type Treatment Note Visit Start Time 08:15 Visit Stop Time 09:12 Total Visit Minutes 57 Visit Number 20 Number of CORRESPONDENCE COORDINATOR Visits 0 Evaluation Information Evaluation Date 09/28/20 Precautions Precautions PMH: prior right distal tib/ fib fracture with ORIF, partial right TKA, carpal tunnel, lumbar surgery, cervical surgery, cellulitis right knee PT-OP-B Current Condition Start: 09/28/20 08:18 Freq: Status: Active Protocol: Document 09/28/20 09:01 SAK (Rec: 09/28/20 09:54 SAK [id number]) Current Condition History of Current Condition Onset Date 3 months Current Complaints acute onset right foot and ankle History of Current Condition No known cause for onset pain, using axillary crutches, has had to severely limit his activity. Patient has complicated medical history with neck surgery, back surgery, carpal tunnel syndrome, right knee pain. Was being seen for rehab of lumbar spine surgery recently, completed that rehab but has had this ongoing right ankle/ foot pain. Physician hasn't reviewed his MRI of his foot taken one month ago because when seen last week having severe right knee pain and went to ER. Diagnosed with cellulitis, finishing antibiotics today, pain decreased but persists. Prior distal tib/fib fracture requiring ORIF right ankle 1994. Prior Treatments and Tests MRI 09/05/20: posterior tibialis tendinosis, sinus tarsi syndrome Treatment Goals Patient/Caregiver Goals Decrease pain and swelling and be able to ambulate without assitive devicde Prior Functional Status Baseline Function- ADL's Independent Baseline Function- Mobility Independent Baseline Function- Gait independent no device Baseline Function- Recreation/Hobbies going to the beach with dog for walks, fishing Current Functional Impairments (Reported) Functional Limitations- ADL's has to use crutches Functional Limitations- Mobility/Gait limited due to use of crutches Functional Limitations- Work/School retired/disabled Functional Limitations- Recreation/ unable to take walks or go Hobbies fishing due to ankle dysfunction Personal Factors Other Personal Factors That May Effect multiple comorbidities Therapy/Recovery PT-OP-C Subjective Start: 09/28/20 08:18 Freq: Status: Active Protocol: Document 12/20/20 08:18 [facility] (Rec: 12/20/20 08:44 [facility] [id number]) OP-PT Subjective Patient Comments Patient Comments Reports he feels very stiff in am, has do do exercises every day to loosen up. Was sick with the crud last week. Feeling fine today. Patient Reported Progress Improving OP-PT Pain Assessment Location foot and ankle Pain Location Details right Intensity 6 Scale Used Numeric (0 - 10) Description Aching,Burning,Pressure,With Movement Frequency Frequent Pain Aggravating Factors Changing Position,Standing, Walking Pain Alleviating Factors None Other Pain Alleviating Factors dry needling by Dr. Bar PT-OP-F Manual Assessment Start: 09/28/20 08:18 Freq: Status: Active Protocol: Document 09/28/20 09:01 [facility] (Rec: 09/28/20 12:57 [facility] [id number]) Manual Assessments Joint Mobility Assessment Joint Mobility Assessment unable to assess due to high pain level PT-OP-G Mobility & Gait Start: 09/28/20 08:18 Freq: Status: Active Protocol: Document 09/28/20 09:01 [facility] (Rec: 09/28/20 12:57 [facility] [id number]) OP Gait Assessment Gait Gait Assistance Required: Independent Assistive Devices Assistive Device Axillary Crutches Gait Deviations General Gait Pattern Within Normal Limits Factors Limiting Gait Function Factors Limiting Gait Function Pain PT-OP-H Neuro Start: 09/28/20 08:18 Freq: Status: Active Protocol: Document 09/28/20 09:01 [facility] (Rec: 09/28/20 12:57 [facility] [id number]) Sensation Evaluation Gross Sensation Gross Sensation WNL PT-OP-J Posture/Palpation/Skin Start: 09/28/20 08:18 Freq: Status: Active Protocol: Document 09/28/20 09:01 [facility] (Rec: 09/28/20 12:57 [facility] [id number]) Skin Assessment Edema Assessment right foot and ankle Edema Type Pitting Edema Degree 3+ Edema Appearance Taut Subjective Edema Description Pain,Tightness Circumference Measurement 4 Location 10 cm proximal malleoli Comments left 24.8, right 27.1 3 Location 5 cm proximal malleoli Comments left 23.3, right 25.2 2 Location malleolar Comments left 28.0, right 34.2 1 Location midfoot Comments left 24.4, right 24.8 PT-OP-K Range of Motion Start: 09/28/20 08:18 Freq: Status: Active Protocol: Document 09/28/20 09:01 [facility] (Rec: 09/28/20 12:57 [facility] [id number]) Knee Goniometric Range of Motion Knee coleen Knee ROM WFL Yes Ankle and Foot Goniometric Range of Motion Ankle and Foot Right Ankle/Foot ROM WFL No Testing Position Sitting Dorsiflexion with Knee Flexed 0 Plantarflexion 35 Inversion 25 Eversion 30 Left Ankle/Foot ROM WFL Yes Ankle and Foot ROM Limitations ROM Limitations Pain,Swelling PT-OP-M Strength Start: 09/28/20 08:18 Freq: Status: Active Protocol: Document 09/28/20 09:01 [facility] (Rec: 09/28/20 12:57 [facility] [id number]) Ankle/Foot Strength Ankle and Foot Manual Muscle Testing Left Dorsiflexion (L4) 5 Normal Plantarflexion (S1) 5 Normal Inversion 5 Normal Eversion (S1) 5 Normal Right Comments not tested due to pain PT-OP-Q Treatments Start: 09/28/20 08:18 Freq: Status: Active Protocol: Document 12/20/20 08:18 [facility] (Rec: 12/20/20 08:44 [facility] [id number]) Cardio Equipment Recumbent Elliptical (Biodex) Duration (Minutes) 10 Resistance 5 Seat Position 11 Other 782 [employer] Gym Equipment Shuttle Balance chains red Details WBOS, NBOS, Stagger Reps/Duration 5 min Comments Balance, head turns, EC. EC staggered: L- 17'' R- 13'' Manual Therapy Treatment Joint Mobilizations Posterior Noti Joint Talocrural, talocalcaneal jts, PA of med/ lat malleolus Direction Posterior Grade I Body Position Sitting Reps/Duration 3 min Comments Posterior glide of tibia and fibula, med/ lat rotation calcaneous and cuboids. PT-OP-R Modalities Start: 09/28/20 08:18 Freq: Status: Active Protocol: Document 12/20/20 08:18 [facility] (Rec: 12/20/20 16:34 [facility] [id number]) Electric Stimulation Electric Stimulation Biphasic Cypriot Body Location R upper calf and guillaume Duration (Minutes) 10 Intensity 66 soleus, 70 ant fib Contraction Type Reciprocal Target/Sweep Target Cycle 10 Ramp 2.0 Patient Position Hooklying Combined With Heat/Cold Cold Pack Comments Muscle facilitation to increase ROM dorsiflexion. w/ crycuff. PT-OP-T Assessment and Plan Start: 09/28/20 08:18 Freq: Status: Active Protocol: Document 12/20/20 08:18 [facility] (Rec: 12/20/20 08:44 [facility] [id number]) Physical Therapy Assessment Goals Six Impairment balance dysfunction SLS 4 sec, tandem 12sesc Fpc Goal (LTG) Patient will improve SLS to 10 sec coleen and tandem stand to at least 20 sec to improve safety witn mobility LTG Duration goal abandoned due to foot/ ankle injury Five Impairment QuickDash UE disability index score 95% Short Term Goal (STG) Decrease Quickdash UE disability index score to no greater than 60% 07/30/19: good goal progress STG Duration MET Fpc Goal (LTG) Decrease Quickdash UE disability index score to no greater than 30% including able to reach overhead and behind his back for ADL's and usual daily activities without difficulty 07/30/19: good goal progress 08/11/20: decreased to 43%. LTG Duration Goal met Four Impairment Decreased flexibility in bilateral hips Fpc Goal (LTG) Improve PSLR to at least 75 degrees, hip ER to 70 and hip IR to 45 to improve overall function 07/12/20: good goal progress 08/11/20: PSLR increased to 65, ER to 60, IR to 30. LTG Duration Goal met Three Impairment gait dysfunction; requires use of crutches, unable to tolerate wt.-bearing Short Term Goal (STG) Decrease pain sufficient to allow patient to ambulate with full weight-bearing for short houshold distances with no increase in pain and no limp 11/08/20: good goal progress, mostly achieved, ambulating today with no device, short distances, mild limp. Slow, careful gait. STG Duration 11/25/20 Fpc Goal (LTG) Patient able to ambulate without assistive device all usual distances without an increase in pain and no limp 11/08/20: not able to ambulate usual distances at this time, has just weaned off using his walking boot and assistive device. LTG Duration 01/06/21 Two Impairment moderate edema right foot/ ankle Short Term Goal (STG) Decrease edema right foot and ankle by at least 2 cm circumferential measurements 11/08/20: good goal progress, and patient has ordered compression stockings STG Duration 10/30/20 Fpc Goal (LTG) Decrease swelling right foot and ankle to mild, with patient to demonstrate appropriate self-management to include elevation, ice, and use of compression. 11/08/20: good goal progress. LTG Duration 01/06/21 One Impairment pain right foot/ankle 6/10 Short Term Goal (STG) Decrease pain to no greater than 4/10 right foot/ankle 11/08/20: goal met STG Duration MET Fpc Goal (LTG) Patient able to tolerate usual activities including ADL's and IADl's without pain greater than 2/10 on pain scale 11/08/20: pain 4/10 at this time. LTG Duration 01/06/21 Assessment Summary Assessment No kinesiotape today as patient reports not helpful. Very stiff in am but improved with ther ex and manual techniques today. Improving activity tolerance. Swelling continues to be an issue, poor tolerance for compression but patient now able to do self- massage for edema reduction. Continues to improve with PT intervention Physical Therapy Plan Frequency and Duration Frequency of Treatment 2x/wk Duration of Treatment 12 weeks Plan of Care Start Date 09/28/20 Plan of Care End Date 12/27/20 Therapeutic Interventions Therapeutic Interventions Gait Training,Home Exercise Program,Manual Therapy,Patient /Caregiver Education,Self-Care /Home Management,Taping, Therapeutic Activities, Therapeutic Exercises Modalities Cold Pack/Ice Massage,Electric Stimulation,Hot Packs, Infrared Therapy,Iontophoresis Other Therapeutic Interventions No ultrasound due to pins from prior fracture Next Visit Focus/Plan Next Note Type Re-Evaluation Next Visit Plan Continue PT for strengthening, gait, balance, ROM.
--- NOTE | 2020-12-20 16:42 | PT.OPPN ---
Current Diagnoses Other chronic pain (12/20/20) Pain in unspecified ankle and joints of unspecified foot (12/20/20) Difficulty in walking, not elsewhere classified (12/20/20) Physical Therapy Progress Note PT-OP-A Visit Information Start: 09/28/20 08:18 Freq: Status: Active Protocol: Document 12/20/20 08:18 SAK (Rec: 12/20/20 08:44 SAK [id number]) Out-Patient Physical Therapy Visit Information Visit Information Visit Type Treatment Note Visit Start Time 08:15 Visit Stop Time 09:12 Total Visit Minutes 57 Visit Number 20 Number of SCRIPT WRITER Visits 0 Evaluation Information Evaluation Date 09/28/20 Precautions Precautions PMH: prior right distal tib/ fib fracture with ORIF, partial right TKA, carpal tunnel, lumbar surgery, cervical surgery, cellulitis right knee PT-OP-B Current Condition Start: 09/28/20 08:18 Freq: Status: Active Protocol: Document 09/28/20 09:01 SAK (Rec: 09/28/20 09:54 SAK [id number]) Current Condition History of Current Condition Onset Date 3 months Current Complaints acute onset right foot and ankle History of Current Condition No known cause for onset pain, using axillary crutches, has had to severely limit his activity. Patient has complicated medical history with neck surgery, back surgery, carpal tunnel syndrome, right knee pain. Was being seen for rehab of lumbar spine surgery recently, completed that rehab but has had this ongoing right ankle/ foot pain. Physician hasn't reviewed his MRI of his foot taken one month ago because when seen last week having severe right knee pain and went to ER. Diagnosed with cellulitis, finishing antibiotics today, pain decreased but persists. Prior distal tib/fib fracture requiring ORIF right ankle 1994. Prior Treatments and Tests MRI 09/05/20: posterior tibialis tendinosis, sinus tarsi syndrome Treatment Goals Patient/Caregiver Goals Decrease pain and swelling and be able to ambulate without assitive devicde Prior Functional Status Baseline Function- ADL's Independent Baseline Function- Mobility Independent Baseline Function- Gait independent no device Baseline Function- Recreation/Hobbies going to the beach with dog for walks, fishing Current Functional Impairments (Reported) Functional Limitations- ADL's has to use crutches Functional Limitations- Mobility/Gait limited due to use of crutches Functional Limitations- Work/School retired/disabled Functional Limitations- Recreation/ unable to take walks or go Hobbies fishing due to ankle dysfunction Personal Factors Other Personal Factors That May Effect multiple comorbidities Therapy/Recovery PT-OP-C Subjective Start: 09/28/20 08:18 Freq: Status: Active Protocol: Document 12/20/20 08:18 [facility] (Rec: 12/20/20 08:44 [facility] [id number]) OP-PT Subjective Patient Comments Patient Comments Reports he feels very stiff in am, has do do exercises every day to loosen up. Was sick with the crud last week. Feeling fine today. Patient Reported Progress Improving OP-PT Pain Assessment Location foot and ankle Pain Location Details right Intensity 6 Scale Used Numeric (0 - 10) Description Aching,Burning,Pressure,With Movement Frequency Frequent Pain Aggravating Factors Changing Position,Standing, Walking Pain Alleviating Factors None Other Pain Alleviating Factors dry needling by Dr. Bar PT-OP-F Manual Assessment Start: 09/28/20 08:18 Freq: Status: Active Protocol: Document 09/28/20 09:01 [facility] (Rec: 09/28/20 12:57 [facility] [id number]) Manual Assessments Joint Mobility Assessment Joint Mobility Assessment unable to assess due to high pain level PT-OP-G Mobility & Gait Start: 09/28/20 08:18 Freq: Status: Active Protocol: Document 09/28/20 09:01 [facility] (Rec: 09/28/20 12:57 [facility] [id number]) OP Gait Assessment Gait Gait Assistance Required: Independent Assistive Devices Assistive Device Axillary Crutches Gait Deviations General Gait Pattern Within Normal Limits Factors Limiting Gait Function Factors Limiting Gait Function Pain PT-OP-H Neuro Start: 09/28/20 08:18 Freq: Status: Active Protocol: Document 09/28/20 09:01 [facility] (Rec: 09/28/20 12:57 [facility] [id number]) Sensation Evaluation Gross Sensation Gross Sensation WNL PT-OP-J Posture/Palpation/Skin Start: 09/28/20 08:18 Freq: Status: Active Protocol: Document 09/28/20 09:01 [facility] (Rec: 09/28/20 12:57 [facility] [id number]) Skin Assessment Edema Assessment right foot and ankle Edema Type Pitting Edema Degree 3+ Edema Appearance Taut Subjective Edema Description Pain,Tightness Circumference Measurement 4 Location 10 cm proximal malleoli Comments left 24.8, right 27.1 3 Location 5 cm proximal malleoli Comments left 23.3, right 25.2 2 Location malleolar Comments left 28.0, right 34.2 1 Location midfoot Comments left 24.4, right 24.8 PT-OP-K Range of Motion Start: 09/28/20 08:18 Freq: Status: Active Protocol: Document 09/28/20 09:01 [facility] (Rec: 09/28/20 12:57 [facility] [id number]) Knee Goniometric Range of Motion Knee Measured in Degrees coleen Knee ROM WFL Yes Ankle and Foot Goniometric Range of Motion Ankle and Foot Measured in Degrees Right Ankle/Foot ROM WFL No Testing Position Sitting Dorsiflexion with Knee Flexed 0 Plantarflexion 35 Inversion 25 Eversion 30 Left Ankle/Foot ROM WFL Yes Ankle and Foot ROM Limitations ROM Limitations Pain,Swelling PT-OP-M Strength Start: 09/28/20 08:18 Freq: Status: Active Protocol: Document 09/28/20 09:01 [facility] (Rec: 09/28/20 12:57 [facility] [id number]) Ankle/Foot Strength Ankle and Foot Manual Muscle Testing Left Dorsiflexion (L4) 5 Normal Plantarflexion (S1) 5 Normal Inversion 5 Normal Eversion (S1) 5 Normal Right Comments not tested due to pain PT-OP-T Assessment and Plan Start: 09/28/20 08:18 Freq: Status: Active Protocol: Document 12/20/20 08:18 [facility] (Rec: 12/20/20 08:44 [facility] [id number]) Physical Therapy Assessment Goals Six Impairment balance dysfunction SLS 4 sec, tandem 12sesc [employer] Goal (LTG) Patient will improve SLS to 10 sec coleen and tandem stand to at least 20 sec to improve safety witn mobility LTG Duration goal abandoned due to foot/ ankle injury Five Impairment QuickDash UE disability index score 95% Short Term Goal (STG) Decrease Quickdash UE disability index score to no greater than 60% 07/30/19: good goal progress STG Duration MET [employer] Goal (LTG) Decrease Quickdash UE disability index score to no greater than 30% including able to reach overhead and behind his back for ADL's and usual daily activities without difficulty 07/30/19: good goal progress 08/11/20: decreased to 43%. LTG Duration Goal met Four Impairment Decreased flexibility in bilateral hips Fdc Goal (LTG) Improve PSLR to at least 75 degrees, hip ER to 70 and hip IR to 45 to improve overall function 07/12/20: good goal progress 08/11/20: PSLR increased to 65, ER to 60, IR to 30. LTG Duration Goal met Three Impairment gait dysfunction; requires use of crutches, unable to tolerate wt.-bearing Short Term Goal (STG) Decrease pain sufficient to allow patient to ambulate with full weight-bearing for short houshold distances with no increase in pain and no limp 11/08/20: good goal progress, mostly achieved, ambulating today with no device, short distances, mild limp. Slow, careful gait. STG Duration 11/25/20 Fdc Goal (LTG) Patient able to ambulate without assistive device all usual distances without an increase in pain and no limp 11/08/20: not able to ambulate usual distances at this time, has just weaned off using his walking boot and assistive device. 12/20/20: good progress, now not ambulating with boot or assistive device. Has been able to resume ambulation [place] LTG Duration 01/06/21 Two Impairment moderate edema right foot/ ankle Short Term Goal (STG) Decrease edema right foot and ankle by at least 2 cm circumferential measurements 11/08/20: good goal progress, and patient has ordered compression stockings STG Duration 10/30/20 Fdc Goal (LTG) Decrease swelling right foot and ankle to mild, with patient to demonstrate appropriate self-management to include elevation, ice, and use of compression. 11/08/20: good goal progress. 12/20/20: patient unable to tolerate compression stocking but is using ice and elevation as well as self-massage as instructed. Mostly achieved LTG Duration 01/06/21 One Impairment pain right foot/ankle 6/10 Short Term Goal (STG) Decrease pain to no greater than 4/10 right foot/ankle 11/08/20: goal met STG Duration MET Fdc Goal (LTG) Patient able to tolerate usual activities including ADL's and IADl's without pain greater than 2/10 on pain scale 11/08/20: pain 4/10 at this time. 12/20/20: pain 3-4/10 LTG Duration 01/06/21 Assessment Summary Assessment No kinesiotape today as patient reports not helpful. Very stiff in am but improved with ther ex and manual techniques today. Improving activity tolerance. Swelling continues to be an issue, poor tolerance for compression but patient now able to do self- massage for edema reduction. Continues to improve with PT intervention Physical Therapy Plan Frequency and Duration Frequency of Treatment 2x/wk Duration of Treatment 12 weeks Plan of Care Start Date 09/28/20 Plan of Care End Date 12/27/20 Therapeutic Interventions Therapeutic Interventions Gait Training,Home Exercise Program,Manual Therapy,Patient /Caregiver Education,Self-Care /Home Management,Taping, Therapeutic Activities, Therapeutic Exercises Modalities Cold Pack/Ice Massage,Electric Stimulation,Hot Packs, Infrared Therapy,Iontophoresis Other Therapeutic Interventions No ultrasound due to pins from prior fracture Next Visit Focus/Plan Next Note Type Re-Evaluation Next Visit Plan Continue PT for strengthening, gait, balance, ROM.
--- NOTE | 2020-12-22 13:41 | PT.OTN ---
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 Evaluation Information Evaluation Date 09/28/20 Precautions Precautions PMH: prior right distal tib/ fib fracture with ORIF, partial right TKA, carpal tunnel, lumbar surgery, cervical surgery, cellulitis right knee PT-OP-B Current Condition Start: 09/28/20 08:18 Freq: Status: Active Protocol: Document 09/28/20 09:01 [facility] (Rec: 09/28/20 09:54 [facility] [id number]) Current Condition History of Current Condition Onset Date 3 months Current Complaints acute onset right foot and ankle History of Current Condition No known cause for onset pain, using axillary crutches, has had to severely limit his activity. Patient has complicated medical history with neck surgery, back surgery, carpal tunnel syndrome, right knee pain. Was being seen for rehab of lumbar spine surgery recently, completed that rehab but has had this ongoing right ankle/ foot pain. Physician hasn't reviewed his MRI of his foot taken one month ago because when seen last week having severe right knee pain and went to ER. Diagnosed with cellulitis, finishing antibiotics today, pain decreased but persists. Prior distal tib/fib fracture requiring ORIF right ankle 1994. Prior Treatments and Tests MRI 09/05/20: posterior tibialis tendinosis, sinus tarsi syndrome Treatment Goals Patient/Caregiver Goals Decrease pain and swelling and be able to ambulate without assitive devicde Prior Functional Status Baseline Function- ADL's Independent Baseline Function- Mobility Independent Baseline Function- Gait independent no device Baseline Function- Recreation/Hobbies going to the beach with dog for walks, fishing Current Functional Impairments (Reported) Functional Limitations- ADL's has to use crutches Functional Limitations- Mobility/Gait limited due to use of crutches Functional Limitations- Work/School retired/disabled Functional Limitations- Recreation/ unable to take walks or go Hobbies fishing due to ankle dysfunction Personal Factors Other Personal Factors That May Effect multiple comorbidities Therapy/Recovery PT-OP-C Subjective Start: 09/28/20 08:18 Freq: Status: Active Protocol: Document 12/22/20 08:14 [facility] (Rec: 12/22/20 09:02 [facility] [id number]) OP-PT Subjective Patient Comments Patient Comments No new c/o, reports he is starting the day by doing ankle exercises and self- massaging. States he couldn't hardly walk on his heel yesterday morning, gradually went away. Missed his dry needling appointment yesterday ; slelpt through it. PT-OP-F Manual Assessment Start: 09/28/20 08:18 Freq: Status: Active Protocol: Document 09/28/20 09:01 [facility] (Rec: 09/28/20 12:57 [facility] [id number]) Manual Assessments Joint Mobility Assessment Joint Mobility Assessment unable to assess due to high pain level PT-OP-G Mobility & Gait Start: 09/28/20 08:18 Freq: Status: Active Protocol: Document 09/28/20 09:01 [facility] (Rec: 09/28/20 12:57 [facility] [id number]) OP Gait Assessment Gait Gait Assistance Required: Independent Assistive Devices Assistive Device Axillary Crutches Gait Deviations General Gait Pattern Within Normal Limits Factors Limiting Gait Function Factors Limiting Gait Function Pain PT-OP-H Neuro Start: 09/28/20 08:18 Freq: Status: Active Protocol: Document 09/28/20 09:01 [facility] (Rec: 09/28/20 12:57 [facility] [id number]) Sensation Evaluation Gross Sensation Gross Sensation WNL PT-OP-J Posture/Palpation/Skin Start: 09/28/20 08:18 Freq: Status: Active Protocol: Document 09/28/20 09:01 [facility] (Rec: 09/28/20 12:57 [facility] [id number]) Skin Assessment Edema Assessment right foot and ankle Edema Type Pitting Edema Degree 3+ Edema Appearance Taut Subjective Edema Description Pain,Tightness Circumference Measurement 4 Location 10 cm proximal malleoli Comments left 24.8, right 27.1 3 Location 5 cm proximal malleoli Comments left 23.3, right 25.2 2 Location malleolar Comments left 28.0, right 34.2 1 Location midfoot Comments left 24.4, right 24.8 PT-OP-K Range of Motion Start: 09/28/20 08:18 Freq: Status: Active Protocol: Document 09/28/20 09:01 [facility] (Rec: 09/28/20 12:57 [facility] [id number]) Knee Goniometric Range of Motion Knee coleen Knee ROM WFL Yes Ankle and Foot Goniometric Range of Motion Ankle and Foot Right Ankle/Foot ROM WFL No Testing Position Sitting Dorsiflexion with Knee Flexed 0 Plantarflexion 35 Inversion 25 Eversion 30 Left Ankle/Foot ROM WFL Yes Ankle and Foot ROM Limitations ROM Limitations Pain,Swelling PT-OP-M Strength Start: 09/28/20 08:18 Freq: Status: Active Protocol: Document 12/22/20 08:14 [facility] (Rec: 12/22/20 09:02 [facility] [id number]) Ankle/Foot Strength Ankle and Foot Manual Muscle Testing Left Dorsiflexion (L4) 5 Normal Plantarflexion (S1) 5 Normal Inversion 5 Normal Eversion (S1) 5 Normal Right Comments not tested due to pain PT-OP-Q Treatments Start: 09/28/20 08:18 Freq: Status: Active Protocol: Document 12/22/20 08:14 [facility] (Rec: 12/22/20 09:02 [facility] [id number]) Cardio Equipment Recumbent Elliptical (Biodex) Duration (Minutes) 10 Resistance 5 Seat Position 11 Gym Equipment Shuttle Balance chains red Details WBOS, NBOS, Stagger Reps/Duration 5 min Comments Balance, head turns, EC. EC staggered: Therapeutic Exercises Sitting Exercises BAPS Sitting Exercise Name df/pf/inv/ev/CW/CCW Equipment Used L4 Comments cued keep 1st MTP contact on board Manual Therapy Treatment Joint Mobilizations Posterior [place] Joint Talocrural, talocalcaneal jts, PA of med/ lat malleolus Direction Posterior Grade I Body Position Sitting Reps/Duration 3 min Comments Posterior glide of tibia and fibula, med/ lat rotation calcaneous and cuboids. PT-OP-R Modalities Start: 09/28/20 08:18 Freq: Status: Active Protocol: Document 12/22/20 08:14 [facility] (Rec: 12/22/20 09:02 [facility] [id number]) Electric Stimulation Electric Stimulation Biphasic [place] Body Location R upper calf and guillaume Duration (Minutes) 10 Intensity 66 soleus, 70 ant fib Contraction Type Reciprocal Target/Sweep Target Cycle 10 Ramp 2.0 Patient Position Hooklying Combined With Heat/Cold Cold Pack Comments Muscle facilitation to increase ROM dorsiflexion. w/ crycuff. PT-OP-T Assessment and Plan Start: 09/28/20 08:18 Freq: Status: Active Protocol: Document 12/22/20 08:14 [facility] (Rec: 12/22/20 09:02 [facility] [id number]) Physical Therapy Assessment Goals Six Impairment balance dysfunction SLS 4 sec, tandem 12sesc Longterm Goal (LTG) Patient will improve SLS to 10 sec coleen and tandem stand to at least 20 sec to improve safety witn mobility LTG Duration goal abandoned due to foot/ ankle injury Five Impairment QuickDash UE disability index score 95% Short Term Goal (STG) Decrease Quickdash UE disability index score to no greater than 60% 07/30/19: good goal progress STG Duration MET Longterm Goal (LTG) Decrease Quickdash UE disability index score to no greater than 30% including able to reach overhead and behind his back for ADL's and usual daily activities without difficulty 07/30/19: good goal progress 08/11/20: decreased to 43%. LTG Duration Goal met Four Impairment Decreased flexibility in bilateral hips Longterm Goal (LTG) Improve PSLR to at least 75 degrees, hip ER to 70 and hip IR to 45 to improve overall function 07/12/20: good goal progress 08/11/20: PSLR increased to 65, ER to 60, IR to 30. LTG Duration Goal met Three Impairment gait dysfunction; requires use of crutches, unable to tolerate wt.-bearing Short Term Goal (STG) Decrease pain sufficient to allow patient to ambulate with full weight-bearing for short houshold distances with no increase in pain and no limp 11/08/20: good goal progress, mostly achieved, ambulating today with no device, short distances, mild limp. Slow, careful gait. STG Duration 11/25/20 Biochemistry Technician Goal (LTG) Patient able to ambulate without assistive device all usual distances without an increase in pain and no limp 11/08/20: not able to ambulate usual distances at this time, has just weaned off using his walking boot and assistive device. 12/20/20: good progress, now not ambulating with boot or assistive device. Has been able to resume ambulation on gently uneven surface [place] LTG Duration 01/06/21 Two Impairment moderate edema right foot/ ankle Short Term Goal (STG) Decrease edema right foot and ankle by at least 2 cm circumferential measurements 11/08/20: good goal progress, and patient has ordered compression stockings STG Duration 10/30/20 Longterm Goal (LTG) Decrease swelling right foot and ankle to mild, with patient to demonstrate appropriate self-management to include elevation, ice, and use of compression. 11/08/20: good goal progress. 12/20/20: patient unable to tolerate compression stocking but is using ice and elevation as well as self-massage as instructed. Mostly achieved LTG Duration 01/06/21 One Impairment pain right foot/ankle 6/10 Short Term Goal (STG) Decrease pain to no greater than 4/10 right foot/ankle 11/08/20: goal met STG Duration MET Biochemistry Technician Goal (LTG) Patient able to tolerate usual activities including ADL's and IADl's without pain greater than 2/10 on pain scale 11/08/20: pain 4/10 at this time. 12/20/20: pain 3-4/10 LTG Duration 01/06/21
--- NOTE | 2020-12-27 09:35 | PT.OTRE ---
Current Diagnoses Other chronic pain (12/27/20) Pain in unspecified ankle and joints of unspecified foot (12/27/20) Difficulty in walking, not elsewhere classified (12/27/20) Past Medical History (Last Updated 12/07/20 @ 17:35 by Cesar Bar DO) Acute ankle pain Ankle fracture Anxiety (Unknown) Aortic stenosis Ascending aorta dilatation Bilateral carotid artery disease (~09/2018) Bilateral carpal tunnel syndrome BPH (benign prostatic hyperplasia) (Unknown) BPH w urinary obs/LUTS Cervical somatic dysfunction Chronic back pain Chronic kidney disease Chronic pain of right ankle Chronic pain syndrome (Unknown) Chronic renal insufficiency (Unknown) Coronary artery disease (Unknown) Cranial somatic dysfunction Depression (Unknown) Diabetes (Unknown) Diabetic neuropathy associated with type 2 diabetes mellitus Edema of left lower extremity Enlarged prostate Erectile dysfunction Erectile dysfunction GERD (gastroesophageal reflux disease) (Unknown) History of ETOH abuse (Unknown) Hyperlipemia (Unknown) Hypertension (Unknown) Leg cramps, sleep related Low back pain (Unknown) Lumbar back pain with radiculopathy affecting right lower extremity Moderate right ankle sprain Nonallopathic lesion of lumbar region, not elsewhere classified Pain in knee region after replacement of knee joint Pancreatitis Pelvic somatic dysfunction Peripheral neuropathy (Unknown) Plantar fasciitis of left foot Rheumatoid arthritis (Unknown) Rheumatoid arthritis Right ankle swelling Sacral region somatic dysfunction Salivary gland swelling Seasonal allergic rhinitis Segmental and somatic dysfunction of abdomen and other regions Segmental and somatic dysfunction of rib cage Seroma after procedure Somatic dysfunction of lower extremity Somatic dysfunction of right lower extremity Stiff neck Swelling of knee joint, right Thoracic region somatic dysfunction Urine retention Surgical History (Last Reviewed 08/23/20 @ 09:13 by Ray Bruno MD) History of back surgery (~2012) History of surgery History of surgical removal of skin lesion Hx of cholecystectomy S/P cervical spinal fusion Status post hernia repair Status post knee surgery Vasectomy status Visit Care Team Role Provider Type Cesar Bar DO Attending Provider Physician Family Provider Primary Care Provider Referring Provider Specialty: Family Practice Address: [address] [place] [address], [facility] Email: Physical Therapy Re-Evaluation PT-OP-A Visit Information Start: 09/28/20 08:18 Freq: Status: Active Protocol: Document 12/27/20 08:17 [facility] (Rec: 12/27/20 08:31 [facility]AK [id number]) Out-Patient Physical Therapy Visit Information Visit Information Visit Type Treatment Note Visit Start Time 08:15 Visit Stop Time 09:12 Total Visit Minutes 57 Visit Number 22 Number of [employer] Visits 0 Evaluation Information Evaluation Date 09/28/20 Precautions Precautions PMH: prior right distal tib/ fib fracture with ORIF, partial right TKA, carpal tunnel, lumbar surgery, cervical surgery, cellulitis right knee PT-OP-B Current Condition Start: 09/28/20 08:18 Freq: Status: Active Protocol: Document 09/28/20 09:01 [facility] (Rec: 09/28/20 09:54 [facility] [id number]) Current Condition History of Current Condition Onset Date 3 months Current Complaints acute onset right foot and ankle History of Current Condition No known cause for onset pain, using axillary crutches, has had to severely limit his activity. Patient has complicated medical history with neck surgery, back surgery, carpal tunnel syndrome, right knee pain. Was being seen for rehab of lumbar spine surgery recently, completed that rehab but has had this ongoing right ankle/ foot pain. Physician hasn't reviewed his MRI of his foot taken one month ago because when seen last week having severe right knee pain and went to ER. Diagnosed with cellulitis, finishing antibiotics today, pain decreased but persists. Prior distal tib/fib fracture requiring ORIF right ankle 1994. Prior Treatments and Tests MRI 09/05/20: posterior tibialis tendinosis, sinus tarsi syndrome Treatment Goals Patient/Caregiver Goals Decrease pain and swelling and be able to ambulate without assitive devicde Prior Functional Status Baseline Function- ADL's Independent Baseline Function- Mobility Independent Baseline Function- Gait independent no device Baseline Function- Recreation/Hobbies going to the beach with dog for walks, fishing Current Functional Impairments (Reported) Functional Limitations- ADL's has to use crutches Functional Limitations- Mobility/Gait limited due to use of crutches Functional Limitations- Work/School retired/disabled Functional Limitations- Recreation/ unable to take walks or go Hobbies fishing due to ankle dysfunction Personal Factors Other Personal Factors That May Effect multiple comorbidities Therapy/Recovery PT-OP-C Subjective Start: 09/28/20 08:18 Freq: Status: Active Protocol: Document 12/27/20 08:17 [facility] (Rec: 12/27/20 08:31 [facility] [id number]) OP-PT Subjective Patient Comments Patient Comments Reports his heel pain is the most limiting at this time; pain is sharp and worst with weight-bearing. Doesn't see Dr. Bar until next month. PT-OP-F Manual Assessment Start: 09/28/20 08:18 Freq: Status: Active Protocol: Document 09/28/20 09:01 [facility] (Rec: 09/28/20 12:57 [facility] [id number]) Manual Assessments Joint Mobility Assessment Joint Mobility Assessment unable to assess due to high pain level PT-OP-G Mobility & Gait Start: 09/28/20 08:18 Freq: Status: Active Protocol: Document 09/28/20 09:01 [facility] (Rec: 09/28/20 12:57 [facility] [id number]) OP Gait Assessment Gait Gait Assistance Required: Independent Assistive Devices Assistive Device Axillary Crutches Gait Deviations General Gait Pattern Within Normal Limits Factors Limiting Gait Function Factors Limiting Gait Function Pain PT-OP-H Neuro Start: 09/28/20 08:18 Freq: Status: Active Protocol: Document 09/28/20 09:01 [facility] (Rec: 09/28/20 12:57 [facility] [id number]) Sensation Evaluation Gross Sensation Gross Sensation WNL PT-OP-J Posture/Palpation/Skin Start: 09/28/20 08:18 Freq: Status: Active Protocol: Document 09/28/20 09:01 [facility] (Rec: 09/28/20 12:57 [facility] [id number]) Skin Assessment Edema Assessment right foot and ankle Edema Type Pitting Edema Degree 3+ Edema Appearance Taut Subjective Edema Description Pain,Tightness Circumference Measurement 4 Location 10 cm proximal malleoli Comments left 24.8, right 27.1 3 Location 5 cm proximal malleoli Comments left 23.3, right 25.2 2 Location malleolar Comments left 28.0, right 34.2 1 Location midfoot Comments left 24.4, right 24.8 PT-OP-K Range of Motion Start: 09/28/20 08:18 Freq: Status: Active Protocol: Document 09/28/20 09:01 [facility] (Rec: 09/28/20 12:57 [facility] [id number]) Knee Goniometric Range of Motion Knee Measured in Degrees coleen Knee ROM WFL Yes Ankle and Foot Goniometric Range of Motion Ankle and Foot Measured in Degrees Right Ankle/Foot ROM WFL No Testing Position Sitting Dorsiflexion with Knee Flexed 0 Plantarflexion 35 Inversion 25 Eversion 30 Left Ankle/Foot ROM WFL Yes Ankle and Foot ROM Limitations ROM Limitations Pain,Swelling PT-OP-M Strength Start: 09/28/20 08:18 Freq: Status: Active Protocol: Document 12/22/20 08:14 [facility] (Rec: 12/22/20 09:02 [facility] [id number]) Ankle/Foot Strength Ankle and Foot Manual Muscle Testing Left Dorsiflexion (L4) 5 Normal Plantarflexion (S1) 5 Normal Inversion 5 Normal Eversion (S1) 5 Normal Right Comments not tested due to pain PT-OP-Q Treatments Start: 09/28/20 08:18 Freq: Status: Active Protocol: Document 12/27/20 08:17 [facility] (Rec: 12/27/20 08:31 [facility] [id number]) Cardio Equipment Recumbent Elliptical (Recochem) Duration (Minutes) 10 Resistance 5 Seat Position 11 Therapeutic Exercises Sitting Exercises short foot Reps/Minutes 10x2 BAPS Sitting Exercise Name df/pf/inv/ev/CW/CCW Equipment Used L4 Comments cued keep 1st MTP contact on board Standing Exercises soleus stretch Reps/Minutes 2x30 Comments ORLIN Gastroc stretch Side right Reps/Minutes 2x30 sec Comments ORLIN Manual Therapy Treatment Soft Tissue Mobilization plantar fascia Mobilization Type Strumming Intensity/Depth Deep Joint Mobilizations Posterior [place] Joint Talocrural, talocalcaneal jts, PA of med/ lat malleolus Direction Posterior Grade I Body Position Sitting Reps/Duration 3 min Comments Posterior glide of tibia and fibula, med/ lat rotation calcaneous and cuboids. Taping 2 Body Location right foot and ankle Type of Tape kinesiotape Comments I strip: heel to base of toes, and from heel proximal to calf 50% stretch I strip: arch support 50-75% stretch PT-OP-R Modalities Start: 09/28/20 08:18 Freq: Status: Active Protocol: Document 12/27/20 08:17 [facility] (Rec: 12/27/20 08:31 [facility] [id number]) Electric Stimulation Electric Stimulation Biphasic [place] Body Location R upper calf and guillaume Duration (Minutes) 10 Intensity 66 soleus, 70 ant fib Contraction Type Reciprocal Target/Sweep Target Cycle 10/10 Ramp 2.0 Patient Position Hooklying Combined With Heat/Cold Cold Pack Comments Muscle facilitation to increase ROM dorsiflexion. w/ crycuff. PT-OP-T Assessment and Plan Start: 09/28/20 08:18 Freq: Status: Active Protocol: Document 12/27/20 08:17 [facility] (Rec: 12/27/20 08:31 [facility] [id number]) Physical Therapy Assessment Goals Six Impairment balance dysfunction SLS 4 sec, tandem 12sesc Usp Goal (LTG) Patient will improve SLS to 10 sec coleen and tandem stand to at least 20 sec to improve safety witn mobility LTG Duration goal abandoned due to foot/ ankle injury Five Impairment QuickDash UE disability index score 95% Short Term Goal (STG) Decrease Quickdash UE disability index score to no greater than 60% 07/30/19: good goal progress STG Duration MET Usp Goal (LTG) Decrease Quickdash UE disability index score to no greater than 30% including able to reach overhead and behind his back for ADL's and usual daily activities without difficulty 07/30/19: good goal progress 08/11/20: decreased to 43%. LTG Duration Goal met Four Impairment Decreased flexibility in bilateral hips Usp Goal (LTG) Improve PSLR to at least 75 degrees, hip ER to 70 and hip IR to 45 to improve overall function 07/12/20: good goal progress 08/11/20: PSLR increased to 65, ER to 60, IR to 30. LTG Duration Goal met Three Impairment gait dysfunction; requires use of crutches, unable to tolerate wt.-bearing Short Term Goal (STG) Decrease pain sufficient to allow patient to ambulate with full weight-bearing for short houshold distances with no increase in pain and no limp 11/08/20: good goal progress, mostly achieved, ambulating today with no device, short distances, mild limp. Slow, careful gait. 12/27/20: Good progress after warm-up exercises in am able to ambulate with mild limp though recent exacerbation of heel pain right limiting. No use of assistive device though encouraged at this time due to heel pain. STG Duration 01/25/21 Usp Goal (LTG) Patient able to ambulate without assistive device all usual distances without an increase in pain and no limp 11/08/20: not able to ambulate usual distances at this time, has just weaned off using his walking boot and assistive device. 12/27/20: good progress, now not ambulating with boot or assistive device. Has been able to resume ambulation [place] Again more recently limited by heel pain. LTG Duration 02/25/21 Two Impairment moderate edema right foot/ ankle Short Term Goal (STG) Decrease edema right foot and ankle by at least 2 cm circumferential measurements 11/08/20: good goal progress, and patient has ordered compression stockings STG Duration 01/25/21 Usp Goal (LTG) Decrease swelling right foot and ankle to mild, with patient to demonstrate appropriate self-management to include elevation, ice, and use of compression. 11/08/20: good goal progress. 12/27/20: patient unable to tolerate compression stocking but is using ice and elevation as well as self-massage as instructed. Mostly achieved LTG Duration 02/25/21 One Impairment pain right foot/ankle 6/10 Short Term Goal (STG) Decrease pain to no greater than 4/10 right foot/ankle 11/08/20: goal met STG Duration MET Usp Goal (LTG) Patient able to tolerate usual activities including ADL's and IADl's without pain greater than 2/10 on pain scale 11/08/20: pain 4/10 at this time. 12/27/20: pain 3-4/10 LTG Duration 02/25/21 Assessment Summary Assessment Kirk has been making good progress with improving strength, ROM, gait. No longer using an assistive device and has been able to ambulate on mildly uneven ground. Unfortunately over the past week reporting limited due to heel pain right . Appears to be due to some plantar fascitis so increased emphasis on manual techniques, laser, and kinesiotape to that region of his foot. Biomechanics of foot limited by prior fracture and pinning. Swelling has been variable with patient demonstrating improving ability to self- manage, though incorrectly wearing tubigrip on his foot and ankle today which pushed swelling into his foot; reviewed correct use with patient demonstrating good understanding. He tolerated treatment well, decreased plantar fascia tension after manual treatment. Physical Therapy Plan Frequency and Duration Frequency of Treatment 2x/wk Duration of Treatment 12 weeks Plan of Care Start Date 12/27/20 Plan of Care End Date 02/25/21 Therapeutic Interventions Therapeutic Interventions Gait Training,Home Exercise Program,Manual Therapy,Patient /Caregiver Education,Self-Care /Home Management,Taping, Therapeutic Activities, Therapeutic Exercises Modalities Cold Pack/Ice Massage,Electric Stimulation,Hot Packs, Infrared Therapy,Iontophoresis Other Therapeutic Interventions No ultrasound due to pins from prior fracture Next Visit Focus/Plan Next Note Type Treatment Note Next Visit Plan Assess response to modification of treatment today. Continue to progress with pain and edema management , ROM, strengthening, and gait training right ankle.
--- NOTE | 2020-12-29 17:17 | PT.OTN ---
Current Diagnoses Other chronic pain (12/29/20) Pain in unspecified ankle and joints of unspecified foot (12/29/20) Difficulty in walking, not elsewhere classified (12/29/20) Physical Therapy Treatment Note PT-OP-A Visit Information Start: 09/28/20 08:18 Freq: Status: Active Protocol: Document 12/29/20 08:15 SAK (Rec: 12/29/20 09:03 SAK [id number]) Out-Patient Physical Therapy Visit Information Visit Information Visit Type Treatment Note Visit Start Time 08:15 Visit Stop Time 09:10 Total Visit Minutes 55 Visit Number 22 Number of BALL HOLDER Visits 0 Evaluation Information Evaluation Date 09/28/20 Precautions Precautions PMH: prior right distal tib/ fib fracture with ORIF, partial right TKA, carpal tunnel, lumbar surgery, cervical surgery, cellulitis right knee PT-OP-B Current Condition Start: 09/28/20 08:18 Freq: Status: Active Protocol: Document 09/28/20 09:01 SAK (Rec: 09/28/20 09:54 SAK [id number]) Current Condition History of Current Condition Onset Date 3 months Current Complaints acute onset right foot and ankle History of Current Condition No known cause for onset pain, using axillary crutches, has had to severely limit his activity. Patient has complicated medical history with neck surgery, back surgery, carpal tunnel syndrome, right knee pain. Was being seen for rehab of lumbar spine surgery recently, completed that rehab but has had this ongoing right ankle/ foot pain. Physician hasn't reviewed his MRI of his foot taken one month ago because when seen last week having severe right knee pain and went to ER. Diagnosed with cellulitis, finishing antibiotics today, pain decreased but persists. Prior distal tib/fib fracture requiring ORIF right ankle 1994. Prior Treatments and Tests MRI 09/05/20: posterior tibialis tendinosis, sinus tarsi syndrome Treatment Goals Patient/Caregiver Goals Decrease pain and swelling and be able to ambulate without assitive devicde Prior Functional Status Baseline Function- ADL's Independent Baseline Function- Mobility Independent Baseline Function- Gait independent no device Baseline Function- Recreation/Hobbies going to the beach with dog for walks, fishing Current Functional Impairments (Reported) Functional Limitations- ADL's has to use crutches Functional Limitations- Mobility/Gait limited due to use of crutches Functional Limitations- Work/School retired/disabled Functional Limitations- Recreation/ unable to take walks or go Hobbies fishing due to ankle dysfunction Personal Factors Other Personal Factors That May Effect multiple comorbidities Therapy/Recovery PT-OP-C Subjective Start: 09/28/20 08:18 Freq: Status: Active Protocol: Document 12/29/20 08:15 [facility] (Rec: 12/29/20 09:03 [facility] [id number]) OP-PT Subjective Patient Comments Patient Comments Reports felt better after PT last session, but increased pain after being a good [employer] and retrieving a woman's keys from down a berm, had increased heel pain. I didn't think about icing my ankle after that. PT-OP-F Manual Assessment Start: 09/28/20 08:18 Freq: Status: Active Protocol: Document 09/28/20 09:01 [facility] (Rec: 09/28/20 12:57 [facility] [id number]) Manual Assessments Joint Mobility Assessment Joint Mobility Assessment unable to assess due to high pain level PT-OP-G Mobility & Gait Start: 09/28/20 08:18 Freq: Status: Active Protocol: Document 09/28/20 09:01 [facility] (Rec: 09/28/20 12:57 [facility] [id number]) OP Gait Assessment Gait Gait Assistance Required: Independent Assistive Devices Assistive Device Axillary Crutches Gait Deviations General Gait Pattern Within Normal Limits Factors Limiting Gait Function Factors Limiting Gait Function Pain PT-OP-H Neuro Start: 09/28/20 08:18 Freq: Status: Active Protocol: Document 09/28/20 09:01 [facility] (Rec: 09/28/20 12:57 [facility] [id number]) Sensation Evaluation Gross Sensation Gross Sensation WNL PT-OP-J Posture/Palpation/Skin Start: 09/28/20 08:18 Freq: Status: Active Protocol: Document 09/28/20 09:01 [facility] (Rec: 09/28/20 12:57 [facility] [id number]) Skin Assessment Edema Assessment right foot and ankle Edema Type Pitting Edema Degree 3+ Edema Appearance Taut Subjective Edema Description Pain,Tightness Circumference Measurement 4 Location 10 cm proximal malleoli Comments left 24.8, right 27.1 3 Location 5 cm proximal malleoli Comments left 23.3, right 25.2 2 Location malleolar Comments left 28.0, right 34.2 1 Location midfoot Comments left 24.4, right 24.8 PT-OP-K Range of Motion Start: 09/28/20 08:18 Freq: Status: Active Protocol: Document 09/28/20 09:01 [facility] (Rec: 09/28/20 12:57 [facility] [id number]) Knee Goniometric Range of Motion Knee coleen Knee ROM WFL Yes Ankle and Foot Goniometric Range of Motion Ankle and Foot Right Ankle/Foot ROM WFL No Testing Position Sitting Dorsiflexion with Knee Flexed 0 Plantarflexion 35 Inversion 25 Eversion 30 Left Ankle/Foot ROM WFL Yes Ankle and Foot ROM Limitations ROM Limitations Pain,Swelling PT-OP-M Strength Start: 09/28/20 08:18 Freq: Status: Active Protocol: Document 12/22/20 08:14 [facility] (Rec: 12/22/20 09:02 [facility] [id number]) Ankle/Foot Strength Ankle and Foot Manual Muscle Testing Left Dorsiflexion (L4) 5 Normal Plantarflexion (S1) 5 Normal Inversion 5 Normal Eversion (S1) 5 Normal Right Comments not tested due to pain PT-OP-Q Treatments Start: 09/28/20 08:18 Freq: Status: Active Protocol: Document 12/29/20 08:15 SAK (Rec: 12/29/20 09:03 [facility] [id number]) Cardio Equipment Recumbent Elliptical ([employer]) Duration (Minutes) 10 Resistance 5 Seat Position 11 Therapeutic Exercises Supine Exercises ankle inv/ev Resistance right Reps/Minutes 10x Sitting Exercises short foot Reps/Minutes 10x2 Standing Exercises soleus stretch Reps/Minutes 2x30 Comments ORLIN Gastroc stretch Side right Reps/Minutes 2x30 sec Comments ORLIN Manual Therapy Treatment Soft Tissue Mobilization plantar fascia Mobilization Type Strumming Intensity/Depth Deep Joint Mobilizations Posterior [place] Joint Talocrural, talocalcaneal jts, PA of med/ lat malleolus Direction Posterior Grade I Body Position Supine Reps/Duration 3 min Comments Posterior glide of tibia and fibula, med/ lat rotation calcaneous and cuboids. Taping 2 Body Location right foot and ankle Type of Tape kinesiotape Comments I strip: heel to base of toes, and from heel proximal to calf 50% stretch I strip: arch support 50-75% stretch Self-Care/Home Management Treatment Education Patient Education Pain Management Other Education ice after activity or injury PT-OP-R Modalities Start: 09/28/20 08:18 Freq: Status: Active Protocol: Document 12/29/20 08:15 SAK (Rec: 12/29/20 09:03 SAK [id number]) Electric Stimulation Electric Stimulation Biphasic [place] Body Location R upper calf and guillaume Duration (Minutes) 10 Intensity 66 soleus, 70 ant fib Contraction Type Reciprocal Target/Sweep Target Cycle 10/10 Ramp 2.0 Patient Position Hooklying Combined With Heat/Cold Cold Pack Comments Muscle facilitation to increase ROM dorsiflexion. w/ crycuff. PT-OP-T Assessment and Plan Start: 09/28/20 08:18 Freq: Status: Active Protocol: Document 12/29/20 08:15 SAK (Rec: 12/29/20 09:03 SAK [id number]) Physical Therapy Assessment Goals Six Impairment balance dysfunction SLS 4 sec, tandem 12sesc Elevator Service Technician Goal (LTG) Patient will improve SLS to 10 sec coleen and tandem stand to at least 20 sec to improve safety witn mobility LTG Duration goal abandoned due to foot/ ankle injury Five Impairment QuickDash UE disability index score 95% Short Term Goal (STG) Decrease Quickdash UE disability index score to no greater than 60% 07/30/19: good goal progress STG Duration MET Elevator Service Technician Goal (LTG) Decrease Quickdash UE disability index score to no greater than 30% including able to reach overhead and behind his back for ADL's and usual daily activities without difficulty 07/30/19: good goal progress 08/11/20: decreased to 43%. LTG Duration Goal met Four Impairment Decreased flexibility in bilateral hips Halfway Goal (LTG) Improve PSLR to at least 75 degrees, hip ER to 70 and hip IR to 45 to improve overall function 07/12/20: good goal progress 08/11/20: PSLR increased to 65, ER to 60, IR to 30. LTG Duration Goal met Three Impairment gait dysfunction; requires use of crutches, unable to tolerate wt.-bearing Short Term Goal (STG) Decrease pain sufficient to allow patient to ambulate with full weight-bearing for short houshold distances with no increase in pain and no limp 11/08/20: good goal progress, mostly achieved, ambulating today with no device, short distances, mild limp. Slow, careful gait. 12/27/20: Good progress after warm-up exercises in am able to ambulate with mild limp though recent exacerbation of heel pain right limiting. No use of assistive device though encouraged at this time due to heel pain. STG Duration 01/25/21 Halfway Goal (LTG) Patient able to ambulate without assistive device all usual distances without an increase in pain and no limp 11/08/20: not able to ambulate usual distances at this time, has just weaned off using his walking boot and assistive device. 12/27/20: good progress, now not ambulating with boot or assistive device. Has been able to resume ambulation [place] Again more recently limited by heel pain. LTG Duration 02/25/21 Two Impairment moderate edema right foot/ ankle Short Term Goal (STG) Decrease edema right foot and ankle by at least 2 cm circumferential measurements 11/08/20: good goal progress, and patient has ordered compression stockings STG Duration 01/25/21 Halfway Goal (LTG) Decrease swelling right foot and ankle to mild, with patient to demonstrate appropriate self-management to include elevation, ice, and use of compression. 11/08/20: good goal progress. 12/27/20: patient unable to tolerate compression stocking but is using ice and elevation as well as self-massage as instructed. Mostly achieved LTG Duration 02/25/21 One Impairment pain right foot/ankle 6/10 Short Term Goal (STG) Decrease pain to no greater than 4/10 right foot/ankle 11/08/20: goal met STG Duration MET Elevator Service Technician Goal (LTG) Patient able to tolerate usual activities including ADL's and IADl's without pain greater than 2/10 on pain scale 11/08/20: pain 4/10 at this time. 12/27/20: pain 3-4/10 LTG Duration 02/25/21 Assessment Summary Assessment exacerbation after ambulation and scrambling on uneven ground. More sore but swelling improved with better applicaiton of Tubigrip. Decreased pain after treatment . Physical Therapy Plan Frequency and Duration Frequency of Treatment 2x/wk Duration of Treatment 12 weeks Plan of Care Start Date 12/27/20 Plan of Care End Date 02/25/21 Therapeutic Interventions Therapeutic Interventions Gait Training,Home Exercise Program,Manual Therapy,Patient /Caregiver Education,Self-Care /Home Management,Taping, Therapeutic Activities, Therapeutic Exercises Modalities Cold Pack/Ice Massage,Electric Stimulation,Hot Packs, Infrared Therapy,Iontophoresis Other Therapeutic Interventions No ultrasound due to pins from prior fracture Next Visit Focus/Plan Next Note Type Treatment Note Next Visit Plan Review HEP to assure correct performance, continue PT for strengthening, gait, balance. Discuss POC.
--- NOTE | 2021-01-03 11:11 | PT.OTN ---
Current Diagnoses Other chronic pain (01/03/21) Pain in unspecified ankle and joints of unspecified foot (01/03/21) Difficulty in walking, not elsewhere classified (01/03/21) Physical Therapy Treatment Note PT-OP-A Visit Information Start: 09/28/20 08:18 Freq: Status: Active Protocol: Document 01/03/21 08:10 SAK (Rec: 01/03/21 08:39 SAK [id number]) Out-Patient Physical Therapy Visit Information Visit Information Visit Type Treatment Note Visit Start Time 08:15 Visit Stop Time 09:10 Total Visit Minutes 55 Visit Number 24 Number of [employer] Visits 0 Evaluation Information Evaluation Date 09/28/20 Precautions Precautions PMH: prior right distal tib/ fib fracture with ORIF, partial right TKA, carpal tunnel, lumbar surgery, cervical surgery, cellulitis right knee PT-OP-B Current Condition Start: 09/28/20 08:18 Freq: Status: Active Protocol: Document 09/28/20 09:01 SAK (Rec: 09/28/20 09:54 SAK [id number]) Current Condition History of Current Condition Onset Date 3 months Current Complaints acute onset right foot and ankle History of Current Condition No known cause for onset pain, using axillary crutches, has had to severely limit his activity. Patient has complicated medical history with neck surgery, back surgery, carpal tunnel syndrome, right knee pain. Was being seen for rehab of lumbar spine surgery recently, completed that rehab but has had this ongoing right ankle/ foot pain. Physician hasn't reviewed his MRI of his foot taken one month ago because when seen last week having severe right knee pain and went to ER. Diagnosed with cellulitis, finishing antibiotics today, pain decreased but persists. Prior distal tib/fib fracture requiring ORIF right ankle 1994. Prior Treatments and Tests MRI 09/05/20: posterior tibialis tendinosis, sinus tarsi syndrome Treatment Goals Patient/Caregiver Goals Decrease pain and swelling and be able to ambulate without assitive devicde Prior Functional Status Baseline Function- ADL's Independent Baseline Function- Mobility Independent Baseline Function- Gait independent no device Baseline Function- Recreation/Hobbies going to the beach with dog for walks, fishing Current Functional Impairments (Reported) Functional Limitations- ADL's has to use crutches Functional Limitations- Mobility/Gait limited due to use of crutches Functional Limitations- Work/School retired/disabled Functional Limitations- Recreation/ unable to take walks or go Hobbies fishing due to ankle dysfunction Personal Factors Other Personal Factors That May Effect multiple comorbidities Therapy/Recovery PT-OP-C Subjective Start: 09/28/20 08:18 Freq: Status: Active Protocol: Document 01/03/21 08:10 [facility] (Rec: 01/03/21 08:39 [facility] [id number]) OP-PT Subjective Patient Comments Patient Comments No new c/o. No swelling all weekend. Tolerated kinesiotape well, states he feels it helped. Worked hard on stretching, less walking. Pain less, walking with less limp. PT-OP-F Manual Assessment Start: 09/28/20 08:18 Freq: Status: Active Protocol: Document 09/28/20 09:01 [facility] (Rec: 09/28/20 12:57 [facility] [id number]) Manual Assessments Joint Mobility Assessment Joint Mobility Assessment unable to assess due to high pain level PT-OP-G Mobility & Gait Start: 09/28/20 08:18 Freq: Status: Active Protocol: Document 09/28/20 09:01 [facility] (Rec: 09/28/20 12:57 [facility] [id number]) OP Gait Assessment Gait Gait Assistance Required: Independent Assistive Devices Assistive Device Axillary Crutches Gait Deviations General Gait Pattern Within Normal Limits Factors Limiting Gait Function Factors Limiting Gait Function Pain PT-OP-H Neuro Start: 09/28/20 08:18 Freq: Status: Active Protocol: Document 09/28/20 09:01 [facility] (Rec: 09/28/20 12:57 [facility] [id number]) Sensation Evaluation Gross Sensation Gross Sensation WNL PT-OP-J Posture/Palpation/Skin Start: 09/28/20 08:18 Freq: Status: Active Protocol: Document 09/28/20 09:01 [facility] (Rec: 09/28/20 12:57 [facility] [id number]) Skin Assessment Edema Assessment right foot and ankle Edema Type Pitting Edema Degree 3+ Edema Appearance Taut Subjective Edema Description Pain,Tightness Circumference Measurement 4 Location 10 cm proximal malleoli Comments left 24.8, right 27.1 3 Location 5 cm proximal malleoli Comments left 23.3, right 25.2 2 Location malleolar Comments left 28.0, right 34.2 1 Location midfoot Comments left 24.4, right 24.8 PT-OP-K Range of Motion Start: 09/28/20 08:18 Freq: Status: Active Protocol: Document 09/28/20 09:01 SAK (Rec: 09/28/20 12:57 SAK [id number]) Knee Goniometric Range of Motion Knee coleen Knee ROM WFL Yes Ankle and Foot Goniometric Range of Motion Ankle and Foot Right Ankle/Foot ROM WFL No Testing Position Sitting Dorsiflexion with Knee Flexed 0 Plantarflexion 35 Inversion 25 Eversion 30 Left Ankle/Foot ROM WFL Yes Ankle and Foot ROM Limitations ROM Limitations Pain,Swelling PT-OP-M Strength Start: 09/28/20 08:18 Freq: Status: Active Protocol: Document 12/22/20 08:14 SAK (Rec: 12/22/20 09:02 SAK [id number]) Ankle/Foot Strength Ankle and Foot Manual Muscle Testing Left Dorsiflexion (L4) 5 Normal Plantarflexion (S1) 5 Normal Inversion 5 Normal Eversion (S1) 5 Normal Right Comments not tested due to pain PT-OP-Q Treatments Start: 09/28/20 08:18 Freq: Status: Active Protocol: Document 01/03/21 08:10 SAK (Rec: 01/03/21 08:39 SAK [id number]) Cardio Equipment Recumbent Elliptical ([employer]) Duration (Minutes) 10 Resistance 5 Seat Position 11 Therapeutic Exercises Standing Exercises soleus stretch Reps/Minutes 2x30 Comments ORLIN Gastroc stretch Side right Reps/Minutes 2x30 sec Comments ORLIN Manual Therapy Treatment Soft Tissue Mobilization plantar fascia Mobilization Type Strumming Intensity/Depth Deep Joint Mobilizations Posterior [place] Joint Talocrural, talocalcaneal jts, PA of med/ lat malleolus Direction Posterior Grade I Body Position Supine Reps/Duration 3 min Comments Posterior glide of tibia and fibula, med/ lat rotation calcaneous and cuboids. Taping 2 Body Location right foot and ankle Type of Tape kinesiotape Comments I strip: heel to base of toes, and from heel proximal to calf 50% stretch I strip: arch support 50-75% stretch PT-OP-R Modalities Start: 09/28/20 08:18 Freq: Status: Active Protocol: Document 01/03/21 08:10 SAK (Rec: 01/03/21 08:39 SAK [id number]) Electric Stimulation Electric Stimulation Biphasic [facility] Body Location R upper calf and guillaume Duration (Minutes) 10 Intensity 66 soleus, 70 ant fib Contraction Type Reciprocal Target/Sweep Target Cycle 10/10 Ramp 2.0 Patient Position Hooklying Combined With Heat/Cold Cold Pack Comments Muscle facilitation to increase ROM dorsiflexion. w/ crycuff. Infrared Treatment Treatment Cold Laser Duration (Minutes) 6 Body Position Supine Continuous/Pulsed pulsed Program or Protocal Pulsed chronic joint pain and stiffness Comments 6 locations right foot/ankle PT-OP-T Assessment and Plan Start: 09/28/20 08:18 Freq: Status: Active Protocol: Document 01/03/21 08:10 [facility] (Rec: 01/03/21 08:39 [facility] [id number]) Physical Therapy Assessment Goals Six Impairment balance dysfunction SLS 4 sec, tandem 12sesc Fdc Goal (LTG) Patient will improve SLS to 10 sec coleen and tandem stand to at least 20 sec to improve safety witn mobility LTG Duration goal abandoned due to foot/ ankle injury Five Impairment QuickDash UE disability index score 95% Short Term Goal (STG) Decrease Quickdash UE disability index score to no greater than 60% 07/30/19: good goal progress STG Duration MET Target Aircraft Technician Goal (LTG) Decrease Quickdash UE disability index score to no greater than 30% including able to reach overhead and behind his back for ADL's and usual daily activities without difficulty 07/30/19: good goal progress 08/11/20: decreased to 43%. LTG Duration Goal met Four Impairment Decreased flexibility in bilateral hips Target Aircraft Technician Goal (LTG) Improve PSLR to at least 75 degrees, hip ER to 70 and hip IR to 45 to improve overall function 07/12/20: good goal progress 08/11/20: PSLR increased to 65, ER to 60, IR to 30. LTG Duration Goal met Three Impairment gait dysfunction; requires use of crutches, unable to tolerate wt.-bearing Short Term Goal (STG) Decrease pain sufficient to allow patient to ambulate with full weight-bearing for short houshold distances with no increase in pain and no limp 11/08/20: good goal progress, mostly achieved, ambulating today with no device, short distances, mild limp. Slow, careful gait. 12/27/20: Good progress after warm-up exercises in am able to ambulate with mild limp though recent exacerbation of heel pain right limiting. No use of assistive device though encouraged at this time due to heel pain. STG Duration 01/25/21 Target Aircraft Technician Goal (LTG) Patient able to ambulate without assistive device all usual distances without an increase in pain and no limp 11/08/20: not able to ambulate usual distances at this time, has just weaned off using his walking boot and assistive device. 12/27/20: good progress, now not ambulating with boot or assistive device. Has been able to resume ambulation [place] Again more recently limited by heel pain. LTG Duration 02/25/21 Two Impairment moderate edema right foot/ ankle Short Term Goal (STG) Decrease edema right foot and ankle by at least 2 cm circumferential measurements 11/08/20: good goal progress, and patient has ordered compression stockings STG Duration 01/25/21 Fdc Goal (LTG) Decrease swelling right foot and ankle to mild, with patient to demonstrate appropriate self-management to include elevation, ice, and use of compression. 11/08/20: good goal progress. 12/27/20: patient unable to tolerate compression stocking but is using ice and elevation as well as self-massage as instructed. Mostly achieved LTG Duration 02/25/21 One Impairment pain right foot/ankle 6/10 Short Term Goal (STG) Decrease pain to no greater than 4/10 right foot/ankle 11/08/20: goal met STG Duration MET Target Aircraft Technician Goal (LTG) Patient able to tolerate usual activities including ADL's and IADl's without pain greater than 2/10 on pain scale 11/08/20: pain 4/10 at this time. 12/27/20: pain 3-4/10 LTG Duration 02/25/21 Assessment Summary Assessment decreased swelling and pain, excellent compliance to HEP. Kinesiotape helpful Physical Therapy Plan Frequency and Duration Frequency of Treatment 2x/wk Duration of Treatment 12 weeks Plan of Care Start Date 12/27/20 Plan of Care End Date 02/25/21 Therapeutic Interventions Therapeutic Interventions Gait Training,Home Exercise Program,Manual Therapy,Patient /Caregiver Education,Self-Care /Home Management,Taping, Therapeutic Activities, Therapeutic Exercises Modalities Cold Pack/Ice Massage,Electric Stimulation,Hot Packs, Infrared Therapy,Iontophoresis Other Therapeutic Interventions No ultrasound due to pins from prior fracture Next Visit Focus/Plan Next Note Type Treatment Note Next Visit Plan Continue PT through end of month, then see for follow-up in 3-4 weeks to assure continued progress and no further need for PT.
--- NOTE | 2021-01-05 09:15 | PT.OTN ---
Current Diagnoses Other chronic pain (01/05/21) Pain in unspecified ankle and joints of unspecified foot (01/05/21) Difficulty in walking, not elsewhere classified (01/05/21) Physical Therapy Treatment Note PT-OP-A Visit Information Start: 09/28/20 08:18 Freq: Status: Active Protocol: Document 01/05/21 08:15 LD (Rec: 01/05/21 09:52 LD [id number]) Out-Patient Physical Therapy Visit Information Visit Information Visit Type Treatment Note Visit Note COTY Felton led tx w/ supervision of YAMILA Camara. Visit Start Time 08:15 Visit Stop Time 09:15 Total Visit Minutes 60 Visit Number 25 Number of UPHOLSTERY SEWER Visits 1 PT-OP-B Current Condition Start: 09/28/20 08:18 Freq: Status: Active Protocol: Document 09/28/20 09:01 SAK (Rec: 09/28/20 09:54 SAK [id number]) Current Condition History of Current Condition Onset Date 3 months Current Complaints acute onset right foot and ankle History of Current Condition No known cause for onset pain, using axillary crutches, has had to severely limit his activity. Patient has complicated medical history with neck surgery, back surgery, carpal tunnel syndrome, right knee pain. Was being seen for rehab of lumbar spine surgery recently, completed that rehab but has had this ongoing right ankle/ foot pain. Physician hasn't reviewed his MRI of his foot taken one month ago because when seen last week having severe right knee pain and went to ER. Diagnosed with cellulitis, finishing antibiotics today, pain decreased but persists. Prior distal tib/fib fracture requiring ORIF right ankle 1994. Prior Treatments and Tests MRI 09/05/20: posterior tibialis tendinosis, sinus tarsi syndrome Treatment Goals Patient/Caregiver Goals Decrease pain and swelling and be able to ambulate without assitive devicde Prior Functional Status Baseline Function- ADL's Independent Baseline Function- Mobility Independent Baseline Function- Gait independent no device Baseline Function- Recreation/Hobbies going to the beach with dog for walks, fishing Current Functional Impairments (Reported) Functional Limitations- ADL's has to use crutches Functional Limitations- Mobility/Gait limited due to use of crutches Functional Limitations- Work/School retired/disabled Functional Limitations- Recreation/ unable to take walks or go Hobbies fishing due to ankle dysfunction Personal Factors Other Personal Factors That May Effect multiple comorbidities Therapy/Recovery PT-OP-C Subjective Start: 09/28/20 08:18 Freq: Status: Active Protocol: Document 01/05/21 08:15 LD (Rec: 01/05/21 09:52 LD [id number]) OP-PT Subjective Patient Comments Patient Comments Pt reports went to the beach and did some gardening yesterday on an incline with ferns, pain in heal increased. PT-OP-F Manual Assessment Start: 09/28/20 08:18 Freq: Status: Active Protocol: Document 09/28/20 09:01 SAK (Rec: 09/28/20 12:57 SAK [id number]) Manual Assessments Joint Mobility Assessment Joint Mobility Assessment unable to assess due to high pain level PT-OP-G Mobility & Gait Start: 09/28/20 08:18 Freq: Status: Active Protocol: Document 09/28/20 09:01 SAK (Rec: 09/28/20 12:57 SAK [id number]) OP Gait Assessment Gait Gait Assistance Required: Independent Assistive Devices Assistive Device Axillary Crutches Gait Deviations General Gait Pattern Within Normal Limits Factors Limiting Gait Function Factors Limiting Gait Function Pain PT-OP-H Neuro Start: 09/28/20 08:18 Freq: Status: Active Protocol: Document 09/28/20 09:01 SAK (Rec: 09/28/20 12:57 SAK [id number]) Sensation Evaluation Gross Sensation Gross Sensation WNL PT-OP-J Posture/Palpation/Skin Start: 09/28/20 08:18 Freq: Status: Active Protocol: Document 09/28/20 09:01 SAK (Rec: 09/28/20 12:57 SAK [id number]) Skin Assessment Edema Assessment right foot and ankle Edema Type Pitting Edema Degree 3+ Edema Appearance Taut Subjective Edema Description Pain,Tightness Circumference Measurement 4 Location 10 cm proximal malleoli Comments left 24.8, right 27.1 3 Location 5 cm proximal malleoli Comments left 23.3, right 25.2 2 Location malleolar Comments left 28.0, right 34.2 1 Location midfoot Comments left 24.4, right 24.8 PT-OP-K Range of Motion Start: 09/28/20 08:18 Freq: Status: Active Protocol: Document 09/28/20 09:01 SAK (Rec: 09/28/20 12:57 [facility] [id number]) Knee Goniometric Range of Motion Knee coleen Knee ROM WFL Yes Ankle and Foot Goniometric Range of Motion Ankle and Foot Right Ankle/Foot ROM WFL No Testing Position Sitting Dorsiflexion with Knee Flexed 0 Plantarflexion 35 Inversion 25 Eversion 30 Left Ankle/Foot ROM WFL Yes Ankle and Foot ROM Limitations ROM Limitations Pain,Swelling PT-OP-M Strength Start: 09/28/20 08:18 Freq: Status: Active Protocol: Document 12/22/20 08:14 SAK (Rec: 12/22/20 09:02 [facility] [id number]) Ankle/Foot Strength Ankle and Foot Manual Muscle Testing Left Dorsiflexion (L4) 5 Normal Plantarflexion (S1) 5 Normal Inversion 5 Normal Eversion (S1) 5 Normal Right Comments not tested due to pain PT-OP-Q Treatments Start: 09/28/20 08:18 Freq: Status: Active Protocol: Document 01/05/21 08:15 LD (Rec: 01/05/21 09:52 LD [id number]) Cardio Equipment Recumbent Elliptical ([employer]) Duration (Minutes) 10 Resistance 5 Seat Position 11 Gym Equipment Shuttle Balance chains red Details WBOS, NBOS, Stagger Reps/Duration 5 min Comments 1. weight shift f/b 2. weight shift lateral 3. staggered, more challenge w / L LE in front. Therapeutic Exercises Standing Exercises soleus stretch Reps/Minutes 2x30 Comments ORLIN Gastroc stretch Side right Reps/Minutes 2x30 sec Comments ORLIN Manual Therapy Treatment Soft Tissue Mobilization plantar fascia Mobilization Type Strumming Intensity/Depth Deep Body Position Supine Comments Irritation medial base of heel . Joint Mobilizations Posterior [place] Joint Talocrural, talocalcaneal jts, PA of med/ lat malleolus Direction Posterior Grade I Body Position Supine Reps/Duration 3 min Comments Posterior glide of tibia and fibula, med/ lat rotation calcaneous. PT-OP-R Modalities Start: 09/28/20 08:18 Freq: Status: Active Protocol: Document 01/05/21 08:15 LD (Rec: 01/05/21 09:52 LD [id number]) Electric Stimulation Electric Stimulation Biphasic [place] Body Location R upper calf and guillaume Duration (Minutes) 10 Intensity 68 soleus, 76 ant fib Contraction Type Reciprocal Target/Sweep Target Cycle 10/10 Ramp 2.0 Patient Position Hooklying Combined With Heat/Cold Cold Pack Comments Muscle facilitation to increase ROM dorsiflexion. w/ crycuff. PT-OP-T Assessment and Plan Start: 09/28/20 08:18 Freq: Status: Active Protocol: Document 01/05/21 08:15 LD (Rec: 01/05/21 09:52 LD [id number]) Physical Therapy Assessment Goals Six Impairment balance dysfunction SLS 4 sec, tandem 12sesc Senior Living Goal (LTG) Patient will improve SLS to 10 sec coleen and tandem stand to at least 20 sec to improve safety witn mobility LTG Duration goal abandoned due to foot/ ankle injury Five Impairment QuickDash UE disability index score 95% Short Term Goal (STG) Decrease Quickdash UE disability index score to no greater than 60% 07/30/19: good goal progress STG Duration MET Bottoming Room Inspector Goal (LTG) Decrease Quickdash UE disability index score to no greater than 30% including able to reach overhead and behind his back for ADL's and usual daily activities without difficulty 07/30/19: good goal progress 08/11/20: decreased to 43%. LTG Duration Goal met Four Impairment Decreased flexibility in bilateral hips Bottoming Room Inspector Goal (LTG) Improve PSLR to at least 75 degrees, hip ER to 70 and hip IR to 45 to improve overall function 07/12/20: good goal progress 08/11/20: PSLR increased to 65, ER to 60, IR to 30. LTG Duration Goal met Three Impairment gait dysfunction; requires use of crutches, unable to tolerate wt.-bearing Short Term Goal (STG) Decrease pain sufficient to allow patient to ambulate with full weight-bearing for short houshold distances with no increase in pain and no limp 11/08/20: good goal progress, mostly achieved, ambulating today with no device, short distances, mild limp. Slow, careful gait. 12/27/20: Good progress after warm-up exercises in am able to ambulate with mild limp though recent exacerbation of heel pain right limiting. No use of assistive device though encouraged at this time due to heel pain. STG Duration 01/25/21 Bottoming Room Inspector Goal (LTG) Patient able to ambulate without assistive device all usual distances without an increase in pain and no limp 11/08/20: not able to ambulate usual distances at this time, has just weaned off using his walking boot and assistive device. 12/27/20: good progress, now not ambulating with boot or assistive device. Has been able to resume ambulation [place] Again more recently limited by heel pain. LTG Duration 02/25/21 Two Impairment moderate edema right foot/ ankle Short Term Goal (STG) Decrease edema right foot and ankle by at least 2 cm circumferential measurements 11/08/20: good goal progress, and patient has ordered compression stockings STG Duration 01/25/21 Senior Living Goal (LTG) Decrease swelling right foot and ankle to mild, with patient to demonstrate appropriate self-management to include elevation, ice, and use of compression. 11/08/20: good goal progress. 12/27/20: patient unable to tolerate compression stocking but is using ice and elevation as well as self-massage as instructed. Mostly achieved LTG Duration 02/25/21 One Impairment pain right foot/ankle 6/10 Short Term Goal (STG) Decrease pain to no greater than 4/10 right foot/ankle 11/08/20: goal met STG Duration MET Bottoming Room Inspector Goal (LTG) Patient able to tolerate usual activities including ADL's and IADl's without pain greater than 2/10 on pain scale 11/08/20: pain 4/10 at this time. 12/27/20: pain 3-4/10 LTG Duration 02/25/21 Assessment Summary Assessment Tx focus on manual mobility and dynamic strengthening. Pt tolerated shuttle balance well with lateral weight shifting. Pt states Ktape helpful with pain control, prior taping still good intact for plantar fascia support and achilles tendon. 'Tightness in calves is still there, stretching at home helps.' Ended tx w/ estim and cryocuff, with no increasing pain. Physical Therapy Plan Frequency and Duration Frequency of Treatment 2x/wk Duration of Treatment 12 weeks Plan of Care Start Date 12/27/20 Plan of Care End Date 02/25/21 Next Visit Focus/Plan Next Note Type Treatment Note Next Visit Plan Pt will continue HEP on own and follow up in 3 weeks to assure progress and if need for further PT required.
--- NOTE | 2021-02-01 17:22 | PT.OTN ---
Current Diagnoses Other chronic pain (02/01/21) Pain in unspecified ankle and joints of unspecified foot (02/01/21) Difficulty in walking, not elsewhere classified (02/01/21) Physical Therapy Treatment Note PT-OP-A Visit Information Start: 09/28/20 08:18 Freq: Status: Active Protocol: Document 02/01/21 14:25 SAK (Rec: 02/01/21 15:14 SAK [id number]) Out-Patient Physical Therapy Visit Information Visit Information Visit Type Progress Note Visit Start Time 14:30 Visit Stop Time 15:30 Total Visit Minutes 60 Visit Number 26 Number of MILK RECEIVER TANK TRUCK Visits 0 PT-OP-B Current Condition Start: 09/28/20 08:18 Freq: Status: Active Protocol: Document 09/28/20 09:01 SAK (Rec: 09/28/20 09:54 SAK [id number]) Current Condition History of Current Condition Onset Date 3 months Current Complaints acute onset right foot and ankle History of Current Condition No known cause for onset pain, using axillary crutches, has had to severely limit his activity. Patient has complicated medical history with neck surgery, back surgery, carpal tunnel syndrome, right knee pain. Was being seen for rehab of lumbar spine surgery recently, completed that rehab but has had this ongoing right ankle/ foot pain. Physician hasn't reviewed his MRI of his foot taken one month ago because when seen last week having severe right knee pain and went to ER. Diagnosed with cellulitis, finishing antibiotics today, pain decreased but persists. Prior distal tib/fib fracture requiring ORIF right ankle 1994. Prior Treatments and Tests MRI 09/05/20: posterior tibialis tendinosis, sinus tarsi syndrome Treatment Goals Patient/Caregiver Goals Decrease pain and swelling and be able to ambulate without assitive devicde Prior Functional Status Baseline Function- ADL's Independent Baseline Function- Mobility Independent Baseline Function- Gait independent no device Baseline Function- Recreation/Hobbies going to the beach with dog for walks, fishing Current Functional Impairments (Reported) Functional Limitations- ADL's has to use crutches Functional Limitations- Mobility/Gait limited due to use of crutches Functional Limitations- Work/School retired/disabled Functional Limitations- Recreation/ unable to take walks or go Hobbies fishing due to ankle dysfunction Personal Factors Other Personal Factors That May Effect multiple comorbidities Therapy/Recovery PT-OP-C Subjective Start: 09/28/20 08:18 Freq: Status: Active Protocol: Document 02/01/21 14:25 SAK (Rec: 02/01/21 15:14 [facility] [id number]) OP-PT Subjective Patient Comments Patient Comments Saw Dr. Bar this am. States he hasn't been doing well, can 't walk due to pain in his heel and inside of ankle. Some better after dry needling . Dr. Bar recommending patient see Dr. King to consider having screws removed and consider pain medication; patient prefers not to use pain meds as had to work really hard to get off of them previously. Hasn't gone to pool yet; waiting until fully vaccinated and states he had his first shot 2 days ago. Activity very limited at this time, unable to take his dog for a walk, has to sit to vacuum. OP-PT Pain Assessment Location foot and ankle Pain Location Details right Intensity 6 Scale Used Numeric (0 - 10) Description Aching,Burning,Pressure,With Movement Frequency Frequent Pain Aggravating Factors Changing Position,Standing, Walking Pain Alleviating Factors None Other Pain Alleviating Factors dry needling by Dr. Bar PT-OP-F Manual Assessment Start: 09/28/20 08:18 Freq: Status: Active Protocol: Document 09/28/20 09:01 [facility] (Rec: 09/28/20 12:57 [facility] [id number]) Manual Assessments Joint Mobility Assessment Joint Mobility Assessment unable to assess due to high pain level PT-OP-G Mobility & Gait Start: 09/28/20 08:18 Freq: Status: Active Protocol: Document 09/28/20 09:01 [facility] (Rec: 09/28/20 12:57 [facility] [id number]) OP Gait Assessment Gait Gait Assistance Required: Independent Assistive Devices Assistive Device Axillary Crutches Gait Deviations General Gait Pattern Within Normal Limits Factors Limiting Gait Function Factors Limiting Gait Function Pain PT-OP-H Neuro Start: 09/28/20 08:18 Freq: Status: Active Protocol: Document 09/28/20 09:01 [facility] (Rec: 09/28/20 12:57 [facility] [id number]) Sensation Evaluation Gross Sensation Gross Sensation WNL PT-OP-J Posture/Palpation/Skin Start: 09/28/20 08:18 Freq: Status: Active Protocol: Document 09/28/20 09:01 [facility] (Rec: 09/28/20 12:57 [facility] [id number]) Skin Assessment Edema Assessment right foot and ankle Edema Type Pitting Edema Degree 3+ Edema Appearance Taut Subjective Edema Description Pain,Tightness Circumference Measurement 4 Location 10 cm proximal malleoli Comments left 24.8, right 27.1 3 Location 5 cm proximal malleoli Comments left 23.3, right 25.2 2 Location malleolar Comments left 28.0, right 34.2 1 Location midfoot Comments left 24.4, right 24.8 PT-OP-K Range of Motion Start: 09/28/20 08:18 Freq: Status: Active Protocol: Document 09/28/20 09:01 [facility] (Rec: 09/28/20 12:57 [facility] [id number]) Knee Goniometric Range of Motion Knee coleen Knee ROM WFL Yes Ankle and Foot Goniometric Range of Motion Ankle and Foot Right Ankle/Foot ROM WFL No Testing Position Sitting Dorsiflexion with Knee Flexed 0 Plantarflexion 35 Inversion 25 Eversion 30 Left Ankle/Foot ROM WFL Yes Ankle and Foot ROM Limitations ROM Limitations Pain,Swelling PT-OP-M Strength Start: 09/28/20 08:18 Freq: Status: Active Protocol: Document 02/01/21 14:25 [facility] (Rec: 02/01/21 15:14 [facility] [id number]) Ankle/Foot Strength Ankle and Foot Manual Muscle Testing Left Dorsiflexion (L4) 5 Normal Plantarflexion (S1) 5 Normal Inversion 5 Normal Eversion (S1) 5 Normal Right Dorsiflexion (L4) 4- Good- Plantarflexion (S1) 4 Good Inversion 3+ Fair+ Eversion (S1) 3+ Fair+ Comments limited by pain as well as weakness. PT-OP-Q Treatments Start: 09/28/20 08:18 Freq: Status: Active Protocol: Document 02/01/21 14:25 [facility] (Rec: 02/01/21 15:14 [facility] [id number]) Cardio Equipment Recumbent Elliptical ([employer]) Duration (Minutes) 10 Resistance 5 Seat Position 11 Manual Therapy Treatment Taping 2 Body Location right foot and ankle Treatment Focus pain reduction, support Type of Tape kinesiotape Comments I strip: heel to base of toes, and from heel proximal to calf 50% stretch I strip: arch support 50-75% stretch Other Other Manual Treatments MMT, ROM measurements Self-Care/Home Management Treatment Education Patient Education Home Exercise Program,Pain Management PT-OP-R Modalities Start: 09/28/20 08:18 Freq: Status: Active Protocol: Document 02/01/21 14:25 [facility] (Rec: 02/01/21 17:14 [facility] [id number]) Hot Pack/Cold Pack Treatment right foot/ankle Patient Position Hooklying Treatment Duration (minutes) 10 Comments cryocuff Infrared Treatment Treatment Cold Laser Duration (Minutes) 6 Body Position Supine Continuous/Pulsed pulsed Program or Protocal Pulsed chronic joint pain and stiffness Comments 6 locations right foot/ankle PT-OP-T Assessment and Plan Start: 09/28/20 08:18 Freq: Status: Active Protocol: Document 02/01/21 14:25 [facility] (Rec: 02/01/21 15:14 [facility] [id number]) Physical Therapy Assessment Goals Six Impairment balance dysfunction SLS 4 sec, tandem 12sesc Scrap Picker Goal (LTG) Patient will improve SLS to 10 sec coleen and tandem stand to at least 20 sec to improve safety witn mobility LTG Duration goal abandoned due to foot/ ankle injury Five Impairment QuickDash UE disability index score 95% Short Term Goal (STG) Decrease Quickdash UE disability index score to no greater than 60% 07/30/19: good goal progress STG Duration MET Correction Goal (LTG) Decrease Quickdash UE disability index score to no greater than 30% including able to reach overhead and behind his back for ADL's and usual daily activities without difficulty 07/30/19: good goal progress 08/11/20: decreased to 43%. LTG Duration Goal met Four Impairment Decreased flexibility in bilateral hips Scrap Picker Goal (LTG) Improve PSLR to at least 75 degrees, hip ER to 70 and hip IR to 45 to improve overall function 07/12/20: good goal progress 08/11/20: PSLR increased to 65, ER to 60, IR to 30. LTG Duration Goal met Three Impairment gait dysfunction; requires use of crutches, unable to tolerate wt.-bearing Short Term Goal (STG) Decrease pain sufficient to allow patient to ambulate with full weight-bearing for short houshold distances with no increase in pain and no limp 11/08/20: good goal progress, mostly achieved, ambulating today with no device, short distances, mild limp. Slow, careful gait. 12/27/20: Good progress after warm-up exercises in am able to ambulate with mild limp though recent exacerbation of heel pain right limiting. No use of assistive device though encouraged at this time due to heel pain. STG Duration 01/25/21 Correction Goal (LTG) Patient able to ambulate without assistive device all usual distances without an increase in pain and no limp 11/08/20: not able to ambulate usual distances at this time, has just weaned off using his walking boot and assistive device. 12/27/20: good progress, now not ambulating with boot or assistive device. Has been able to resume ambulation [place] Again more recently limited by heel pain. 02/01/21: continues to be limited by heel pain as well as foot pain, going to schedule consult with Dr. King LTG Duration 02/25/21 Two Impairment moderate edema right foot/ ankle Short Term Goal (STG) Decrease edema right foot and ankle by at least 2 cm circumferential measurements 11/08/20: good goal progress, and patient has ordered compression stockings STG Duration goal met Scrap Picker Goal (LTG) Decrease swelling right foot and ankle to mild, with patient to demonstrate appropriate self-management to include elevation, ice, and use of compression. 11/08/20: good goal progress. 12/27/20: patient unable to tolerate compression stocking but is using ice and elevation as well as self-massage as instructed. Mostly achieved LTG Duration goal met One Impairment pain right foot/ankle 6/10 Short Term Goal (STG) Decrease pain to no greater than 4/10 right foot/ankle 11/08/20: goal met STG Duration MET Correction Goal (LTG) Patient able to tolerate usual activities including ADL's and IADl's without pain greater than 2/10 on pain scale 11/08/20: pain 4/10 at this time. 12/27/20: pain 3-4/10 02/01/21: pain has increased to 6/10 LTG Duration 02/25/21 Assessment Summary Assessment Since last seen in PT patient' s pain has increased in his heel and foot. Patient reports compliance to HEP, edema management, icing but tolerating weight-bearing activity poorly. Hasn't gone back to wearing his boot which he may need to consider. He is going to do consult with Dr Sylvester King regarding potential of having screws in foot removed. Encouraged continued HEP, was instructed in self-taping today with kinesiotape as previously benefited. Follow- up appointment in 3-4 weeks. Physical Therapy Plan Frequency and Duration Frequency of Treatment 2x/wk Duration of Treatment 12 weeks Plan of Care Start Date 12/27/20 Plan of Care End Date 02/25/21 Therapeutic Interventions Therapeutic Interventions Gait Training,Home Exercise Program,Manual Therapy,Patient /Caregiver Education,Self-Care /Home Management,Taping, Therapeutic Activities, Therapeutic Exercises Modalities Cold Pack/Ice Massage,Electric Stimulation,Hot Packs, Infrared Therapy,Iontophoresis Other Therapeutic Interventions No ultrasound due to pins from prior fracture Next Visit Focus/Plan Next Note Type Re-Evaluation Next Visit Plan May need to return to regular schedule of 2x/wk if patient continues to do poorly and no medical management helpful.
--- NOTE | 2021-02-21 11:14 | PT-OP ANOTE ---
DNS for PT appointment
--- NOTE | 2021-03-13 11:07 | PT.OTN ---
Current Diagnoses Other chronic pain (02/01/21) Pain in unspecified ankle and joints of unspecified foot (02/01/21) Difficulty in walking, not elsewhere classified (02/01/21) Physical Therapy Treatment Note PT-OP-A Visit Information Start: 09/28/20 08:18 Freq: Status: Active Protocol: Document 03/13/21 11:06 [facility] (Rec: 03/13/21 11:07 [facility] [id number]) Out-Patient Physical Therapy Visit Information Visit Information Visit Type Discharge Summary Visit Note Patient didn't show for last scheduled PT appointment, LVM and have heard nothing further . Will be discharged at this time. PT-OP-B Current Condition Start: 09/28/20 08:18 Freq: Status: Active Protocol: Document 09/28/20 09:01 [facility] (Rec: 09/28/20 09:54 [facility] [id number]) Current Condition History of Current Condition Onset Date 3 months Current Complaints acute onset right foot and ankle History of Current Condition No known cause for onset pain, using axillary crutches, has had to severely limit his activity. Patient has complicated medical history with neck surgery, back surgery, carpal tunnel syndrome, right knee pain. Was being seen for rehab of lumbar spine surgery recently, completed that rehab but has had this ongoing right ankle/ foot pain. Physician hasn't reviewed his MRI of his foot taken one month ago because when seen last week having severe right knee pain and went to ER. Diagnosed with cellulitis, finishing antibiotics today, pain decreased but persists. Prior distal tib/fib fracture requiring ORIF right ankle 1994. Prior Treatments and Tests MRI 09/05/20: posterior tibialis tendinosis, sinus tarsi syndrome Treatment Goals Patient/Caregiver Goals Decrease pain and swelling and be able to ambulate without assitive devicde Prior Functional Status Baseline Function- ADL's Independent Baseline Function- Mobility Independent Baseline Function- Gait independent no device Baseline Function- Recreation/Hobbies going to the beach with dog for walks, fishing Current Functional Impairments (Reported) Functional Limitations- ADL's has to use crutches Functional Limitations- Mobility/Gait limited due to use of crutches Functional Limitations- Work/School retired/disabled Functional Limitations- Recreation/ unable to take walks or go Hobbies fishing due to ankle dysfunction Personal Factors Other Personal Factors That May Effect multiple comorbidities Therapy/Recovery PT-OP-C Subjective Start: 09/28/20 08:18 Freq: Status: Active Protocol: Document 02/01/21 14:25 [facility] (Rec: 02/01/21 15:14 [facility] [id number]) OP-PT Subjective Patient Comments Patient Comments Saw Dr. Bar this am. States he hasn't been doing well, can 't walk due to pain in his heel and inside of ankle. Some better after dry needling . Dr. Bar recommending patient see Dr. King to consider having screws removed and consider pain medication; patient prefers not to use pain meds as had to work really hard to get off of them previously. Hasn't gone to pool yet; waiting until fully vaccinated and states he had his first shot 2 days ago. Activity very limited at this time, unable to take his dog for a walk, has to sit to vacuum. OP-PT Pain Assessment Location foot and ankle Pain Location Details right Intensity 6 Scale Used Numeric (0 - 10) Description Aching,Burning,Pressure,With Movement Frequency Frequent Pain Aggravating Factors Changing Position,Standing, Walking Pain Alleviating Factors None Other Pain Alleviating Factors dry needling by Dr. Bar PT-OP-F Manual Assessment Start: 09/28/20 08:18 Freq: Status: Active Protocol: Document 09/28/20 09:01 [facility] (Rec: 09/28/20 12:57 [facility] [id number]) Manual Assessments Joint Mobility Assessment Joint Mobility Assessment unable to assess due to high pain level PT-OP-G Mobility & Gait Start: 09/28/20 08:18 Freq: Status: Active Protocol: Document 09/28/20 09:01 [facility] (Rec: 09/28/20 12:57 [facility] [id number]) OP Gait Assessment Gait Gait Assistance Required: Independent Assistive Devices Assistive Device Axillary Crutches Gait Deviations General Gait Pattern Within Normal Limits Factors Limiting Gait Function Factors Limiting Gait Function Pain PT-OP-H Neuro Start: 09/28/20 08:18 Freq: Status: Active Protocol: Document 09/28/20 09:01 [facility] (Rec: 09/28/20 12:57 [facility] [id number]) Sensation Evaluation Gross Sensation Gross Sensation WNL PT-OP-J Posture/Palpation/Skin Start: 09/28/20 08:18 Freq: Status: Active Protocol: Document 09/28/20 09:01 [facility] (Rec: 09/28/20 12:57 [facility] [id number]) Skin Assessment Edema Assessment right foot and ankle Edema Type Pitting Edema Degree 3+ Edema Appearance Taut Subjective Edema Description Pain,Tightness Circumference Measurement 4 Location 10 cm proximal malleoli Comments left 24.8, right 27.1 3 Location 5 cm proximal malleoli Comments left 23.3, right 25.2 2 Location malleolar Comments left 28.0, right 34.2 1 Location midfoot Comments left 24.4, right 24.8 PT-OP-K Range of Motion Start: 09/28/20 08:18 Freq: Status: Active Protocol: Document 09/28/20 09:01 [facility] (Rec: 09/28/20 12:57 [facility] [id number]) Knee Goniometric Range of Motion Knee coleen Knee ROM WFL Yes Ankle and Foot Goniometric Range of Motion Ankle and Foot Right Ankle/Foot ROM WFL No Testing Position Sitting Dorsiflexion with Knee Flexed 0 Plantarflexion 35 Inversion 25 Eversion 30 Left Ankle/Foot ROM WFL Yes Ankle and Foot ROM Limitations ROM Limitations Pain,Swelling PT-OP-M Strength Start: 09/28/20 08:18 Freq: Status: Active Protocol: Document 02/01/21 14:25 [facility] (Rec: 02/01/21 15:14 [facility] [id number]) Ankle/Foot Strength Ankle and Foot Manual Muscle Testing Left Dorsiflexion (L4) 5 Normal Plantarflexion (S1) 5 Normal Inversion 5 Normal Eversion (S1) 5 Normal Right Dorsiflexion (L4) 4- Good- Plantarflexion (S1) 4 Good Inversion 3+ Fair+ Eversion (S1) 3+ Fair+ Comments limited by pain as well as weakness. PT-OP-Q Treatments Start: 09/28/20 08:18 Freq: Status: Active Protocol: Document 02/01/21 14:25 [facility] (Rec: 02/01/21 15:14 [facility] [id number]) Cardio Equipment Recumbent Elliptical (Biodex) Duration (Minutes) 10 Resistance 5 Seat Position 11 Manual Therapy Treatment Taping 2 Body Location right foot and ankle Treatment Focus pain reduction, support Type of Tape kinesiotape Comments I strip: heel to base of toes, and from heel proximal to calf 50% stretch I strip: arch support 50-75% stretch Other Other Manual Treatments MMT, ROM measurements Self-Care/Home Management Treatment Education Patient Education Home Exercise Program,Pain Management PT-OP-R Modalities Start: 09/28/20 08:18 Freq: Status: Active Protocol: Document 02/01/21 14:25 [facility] (Rec: 02/01/21 17:14 [facility] [id number]) Hot Pack/Cold Pack Treatment right foot/ankle Patient Position Hooklying Treatment Duration (minutes) 10 Comments cryocuff Infrared Treatment Treatment Cold Laser Duration (Minutes) 6 Body Position Supine Continuous/Pulsed pulsed Program or Protocal Pulsed chronic joint pain and stiffness Comments 6 locations right foot/ankle PT-OP-T Assessment and Plan Start: 09/28/20 08:18 Freq: Status: Active Protocol: Document 03/13/21 11:06 [facility] (Rec: 03/13/21 11:07 [facility] [id number]) Physical Therapy Plan Discharge Physical Therapy Discharge Reasons No Longer Attending PT
== END 2021-03-15 13:41 | disposition home or self-care (01) ==
LOC: PHYS 14:30
PROVIDERS: Family Provider Family Medicine; PCP Family Medicine; Referring Provider Family Medicine; Visit Provider Family Medicine
DX: M25.579 Pain in unspecified ankle and joints of unspecified foot (principal); G89.29 Other chronic pain; R26.2 Difficulty in walking, not elsewhere classified
CPT/HCPCS: 97010; 97014; 97032; 97110; 97112; 97116; 97140; 97162; 97535; G0283

== ENCOUNTER → 2021-02-07 10:15 | Outpatient (CLI) | payer MEDICARE, OTHER, SELFPAY ==
[2020-01-06 18:24] VITALS: BMI 23.6
[2021-02-07 11:12] LABS: Add Manual Diff / Slide Review NO; Basophils Absolute Auto 0 /uL (0-100); Basophils Percent Auto 0.6 % (0-2); Eosinophils Absolute Auto 100 /uL (0-450); Eosinophils Percent Auto 1.8 % (2-4); Hematocrit 33.8 % (41-53); Hemoglobin 11.3 g/dL (13.5-17.5); Lymphocytes Absolute Auto 2900 /uL (1100-4500); Lymphocytes Percent Auto 43.5 % (25-40); Mean Corpuscular HGB Conc 33.5 % (30-36); Mean Corpuscular Hemoglobin 30.7 PG (26-34); Mean Corpuscular Volume 91.5 fL (80-100); Monocytes Absolute Auto 400 /uL (0-900); Monocytes Percent Auto 5.6 % (3-14); Neutrophils Absolute Auto 3200 /uL (1500-7000); Neutrophils Percent Auto 48.5 % (50-75); Platelet Count 189 X10^3/uL (150-400); Red Blood Cell Count 3.69 X10^6/uL (4.5-5.9); Red Cell Distribution Width 14.4 % (11.6-14.8); White Blood Cell Count 6.6 X10^3/uL (4.5-11.0)
[2021-02-07 11:36] LABS: Alanine Aminotransferase 24 IU/L (<50); Albumin 4.2 g/dL (3.5-5.0); Albumin Globulin Ratio 1.6 (1.0-2.8); Alkaline Phosphatase 109 U/L (38-126); Aspartate Aminotransferase 36 IU/L (17-59); BUN Creatinine Ratio 24.4 (6-22); Bilirubin Total 0.4 mg/dL (0.2-1.3); Blood Urea Nitrogen 31 mg/dL (9-20); Calcium 9.4 mg/dL (8.4-10.2); Carbon Dioxide 26 mmol/L (22-32); Chloride 102 mmol/L (98-107); Cholesterol 115 mg/dL (140-199); Estimated Glomerular Filt Rate 56.4 mL/min (>60); Globulin 2.6 g/dL (1.7-4.1); Glucose 139 mg/dL (80-110); HDL Cholesterol 60 mg/dL (40-60); HEMOLYSIS < 15 (0-50); LDL Cholesterol Calculated 44 mg/dL (<100); Potassium 4.9 mmol/L (3.4-5.1); Sodium 135 mmol/L (137-145); Total Protein 6.8 g/dL (6.3-8.2); Triglycerides 56 mg/dL (35-150)
[2021-02-07 11:44] LABS: Hemoglobin A1C% w Est Avg Glu 6.3 % (4.0-6.0)
[2021-02-07 12:06] LABS: Prostate Specific Antigen Scrn 1.69 ng/mL (0.1-4.0)
== END ==
PROVIDERS: Family Provider Family Medicine; PCP Family Medicine; Referring Provider Internal Medicine; Visit Provider Nurse Practitioner
DX: E11.42 Type 2 diabetes mellitus with diabetic polyneuropathy (principal); I10 Essential (primary) hypertension; Z12.5 Encounter for screening for malignant neoplasm of prostate
CPT/HCPCS: 36415; 80053; 80061; 83036; 85025; G0103

== ENCOUNTER → 2021-03-30 15:44 | Outpatient (CLI) | payer MEDICARE, OTHER, SELFPAY ==
[2020-01-06 18:24] VITALS: BMI 23.6
--- NOTE | 2021-03-30 | DI.ECHO.S_ITS ---
[facility] +---------+ [facility] +---------+ : : [address] [address] : : : : [id number] : : : : Phone: [phone]---------+ Echocardiogram Report + + :Name: BHASKAR QUIÑONES Study Date: 03/30/2021 Height: 72 in : :[facility] ReadingLocation: Weight: 175 lb : : Gender: Male BSA: 2.0 m2 : :: 1950 Age: 70 yrs BP: 130/68 mmHg: :Reason For Study: THORACIC AORTIC ECTASIA : :Ordering Physician: MILVIA, : :ANJU Day Performed By: Karina Damico : :Referring: ANJU STEEL : + + Interpretation Summary The left ventricle is normal in size. The ejection fraction is estimated to be 60-65%. There has been no significant change in LVEF since the previous exam. The right ventricle is normal in size and function. A bicuspid aortic valve cannot be excluded. The aortic valve is moderately calcified. The peak aortic velocity is 3.6 m/sec. The aortic valve mean gradient is 28 mmHg. The peak aortic velocity on the previous exam was 2.75 m/sec. 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 Overall moderate aortic stenosis. It has increased from the previous study. There is mild to moderate aortic regurgitation. The ascending aorta is mildly enlarged. Ascending aorta 4.0 cm in diameter. Previously it was 4.5 cm. Likely it was measured more proximally than last time. Consider CT aortogram for true assessment of ascending aorta dilatation. The IVC is of normal diameter and collapses greater than 50% with a sniff. This suggests a low right atrial pressure of 3 mm Hg. Procedure: A two-dimensional transthoracic echocardiogram with color flow and Doppler was performed. The study quality was technically adequate. Comparison is made with the echocardiogram of 12/30/2018. The patient was in sinus bradycardia with heart rates between 50-60 bpm during the exam. Left Ventricle: The left ventricle is normal in size. There is mild concentric left ventricular hypertrophy. There is no thrombus. A false chord is noted (normal variant). The ejection fraction is estimated to be 60-65%. There has been no significant change since the previous exam. Septal motion is consistent with conduction abnormality. Diastolic parameters suggest a relaxation abnormality of the left ventricle, consistent with probable normal filling pressures. Right Ventricle: The right ventricle is normal in size and function. Atria: The left atrial size is normal. Both atria have remained unchanged in size since the prior echo exam. Right atrial size is normal. There is no Doppler evidence for an interatrial shunt. Mitral Valve: The mitral valve leaflets appear mildly thickened, but open well. There is mild to moderate mitral annular calcification. There is trace mitral regurgitation. Aortic Valve: A bicuspid aortic valve cannot be excluded. The aortic valve is moderately calcified. The peak aortic velocity is 3.6 m/sec. The aortic valve mean gradient is 28 mmHg. The peak aortic velocity on the previous exam was 2.75 m/sec. There is mild to moderate aortic regurgitation. Tricuspid Valve: The tricuspid valve is normal. There is mild tricuspid regurgitation. Pulmonary artery pressures cannot be estimated because of the lack of a measurable TR jet velocity but the IVC suggests a CVP of around 3 mmHg. Pulmonic Valve: The pulmonic valve is not well visualized. There is trace pulmonic regurgitation. Great Vessels: The aortic root is normal size. The ascending aorta is mildly enlarged. The IVC is of normal diameter and collapses greater than 50% with a sniff. This suggests a low right atrial pressure of 3 mm Hg. Pericardium/ Pleura There is no pericardial effusion. There is no pleural effusion. MMode/2D Measurements & Calculations LVIDd: 5.0 cm LVOT diam: 2.1 cm LVIDs: 3.0 cm Ao root diam: 3.9 cm FS: 38.8 % asc Aorta Diam: 4.0 cm EPSS: 0.63 cm IVSd: 1.1 cm LVPWd: 1.1 cm LV parikh. diameter/BSA (cm/m^2): 2.5 LV sys. diameter/BSA (cm/m^2): 1.5 LA A2 area: 21.6 cm2 RA long axis: 4.7 cm LA A4 area: 17.0 cm2 RA area: 12.6 cm2 LA length (vol): 4.8 cm RA vol: 29.2 ml LA vol: 65.3 ml RA : 14.5 ml/m2 LA vol index: 32.5 ml/m2 IVC diam: 1.6 cm RVD1 (basal): 2.9 cm TAPSE: 1.9 cm Doppler Measurements & Calculations Ao V2 max: 361.6 cm/sec LVOT Max Alex: 109.8 cm/sec Ao V2 mean: 252.5 cm/sec LV V1 max P.8 mmHg Ao max P.3 mmHg LV V1 VTI: 26.6 cm Ao mean P.3 mmHg ROBERTO(I,D): 1.0 cm2 Ao V2 VTI: 90.8 cm ROBERTO(V,D): 1.1 cm2 sev ratio: 0.29 ROBERTO indexed to BSA (cm^2/m^2): 0.51 AI P1/2t: 645.1 msec AI dec slope: 181.9 cm/sec2 MV E max alex: 74.6 cm/sec PA pr(Accel): 12.2 mmHg MV A max alex: 90.1 cm/sec MV E/A: 0.83 Med Peak E' Alex: 5.3 cm/sec E/E' med: 14.1 Lat Peak E' Alex: 7.4 cm/sec E/E' lat: 10.1 E/e' average: 12.1 MV dec time: 0.21 sec SV(LVOT): 93.9 ml Reading Physician:12:57 PM
== END ==
PROVIDERS: Family Provider Family Medicine; PCP Family Medicine; Referring Provider Nurse Practitioner; Visit Provider Nurse Practitioner
DX: I08.2 Rheumatic disorders of both aortic and tricuspid valves (principal); I77.810 Thoracic aortic ectasia; R01.1 Cardiac murmur, unspecified
CPT/HCPCS: 93306

== ENCOUNTER → 2021-04-07 11:29 | Outpatient (CLI) | payer MEDICARE, OTHER, SELFPAY ==
[2020-01-06 18:24] VITALS: BMI 23.6
[2021-04-07 13:08] LABS: Blood Urea Nitrogen 20 mg/dL (9-20); Calcium 9.6 mg/dL (8.4-10.2); Carbon Dioxide 27 mmol/L (22-32); Chloride 100 mmol/L (98-107); Estimated Glomerular Filt Rate 57.4 mL/min (>60); Glucose 144 mg/dL (80-110); HEMOLYSIS 19 (0-50); Potassium 4.3 mmol/L (3.4-5.1); Sodium 135 mmol/L (137-145)
== END ==
PROVIDERS: Family Provider Family Medicine; PCP Family Medicine; Referring Provider Nurse Practitioner; Visit Provider Nurse Practitioner
DX: I10 Essential (primary) hypertension (principal)
CPT/HCPCS: 36415; 80048

== ENCOUNTER 2021-05-13 14:34 | Emergency (ER) | payer MEDICARE, OTHER, SELFPAY ==
[2021-04-11 08:55] VITALS: BMI 23.6
[2021-05-13] VITALS (44 sets, daily range): BP systolic 184–228; BP diastolic 85–131; PULSE 79–114; RESP 9–37; TEMP 37.3; O2SAT 88–100; BMI 23.0
--- NOTE | 2021-05-13 14:39 | DI.CT.S_ITS ---
PROCEDURE: CT HEAD/BRAIN WO CON INDICATIONS: speech changes, hypertension, generalized weakness TECHNIQUE: Noncontrast 4.5 mm thick angled axial sections acquired from the foramen magnum to the vertex, with coronal and sagittal reformats. For radiation dose reduction, the following was used: automated exposure control, adjustment of mA and/or kV according to patient size. COMPARISON: [facility], CT, HEAD WITHOUT CONTRAST, 02/02/2018, 20:53. FINDINGS: Image quality: Excellent. CSF spaces: Basal cisterns are patent. No extra-axial fluid collections. The ventricles are symmetric in size and shape. Brain: No intracranial bleeds or masses. There is cerebral volume loss for age, with resultant ventricular and sulcal prominence. There are ilme-[id number]-kwkpyugh periventricular and deep white matter chronic small vessel ischemic changes. There is intracranial internal carotid artery atherosclerosis. Skull and face: Calvarium and visualized facial bones appear intact, without suspicious lesions. Sinuses: Visualized sinuses and mastoids are clear. IMPRESSION: 1. Age related volume loss and [id number] small vessel ischemic change. 2. No evidence acute stroke, hemorrhage, or mass. Dictated by: Garry Middleton M.D. on 05/13/2021 at 14:34 Approved by: Garry Middleton M.D. on 05/13/2021 at 14:39
--- NOTE | 2021-05-13 15:05 | DI.RAD.S_ITS ---
PROCEDURE: XR CHEST 1V INDICATIONS: chest pain TECHNIQUE: One view of the chest was acquired. COMPARISON: [facility], CR, XR CHEST 1V, 12/26/2018, 14:35. FINDINGS: Surgical changes and devices: Lower cervical fusion hardware. Lungs and pleura: Lungs are clear. No pleural effusions or pneumothorax. Mediastinum: Mediastinal contours appear normal. Heart size is normal. Bones and chest wall: No suspicious bony lesions. Overlying soft tissues appear unremarkable. IMPRESSION: No evidence acute pulmonary process. Dictated by: Garry Middleton M.D. on 05/13/2021 at 14:50 Approved by: Garry Middleton M.D. on 05/13/2021 at 14:52
--- NOTE | 2021-05-13 15:09 | PC.NURSE ---
patient states that he feel like hes having a hard time getting words out but does not sound like he is slurring. he has neuropathy and has diminished feeling in his right ankle. He has a shake in his right hand but has dynamic flexion and extension in the elbow and shoulder. He says shake started in his wrist started in the EMS on the way here.
[2021-05-13 15:25] LABS: Add Manual Diff / Slide Review NO; Basophils Absolute Auto 0 /uL (0-100); Basophils Percent Auto 0.3 % (0-2); Eosinophils Absolute Auto 0 /uL (0-450); Hematocrit 42.8 % (41-53); Hemoglobin 14.3 g/dL (13.5-17.5); Lymphocytes Absolute Auto 2200 /uL (1100-4500); Lymphocytes Percent Auto 24.6 % (25-40); Mean Corpuscular HGB Conc 33.5 % (30-36); Mean Corpuscular Hemoglobin 30.5 PG (26-34); Mean Corpuscular Volume 91.2 fL (80-100); Monocytes Absolute Auto 400 /uL (0-900); Monocytes Percent Auto 4.6 % (3-14); Neutrophils Absolute Auto 6200 /uL (1500-7000); Neutrophils Percent Auto 70.5 % (50-75); Platelet Count 229 X10^3/uL (150-400); Red Blood Cell Count 4.69 X10^6/uL (4.5-5.9); Red Cell Distribution Width 14.1 % (11.6-14.8); White Blood Cell Count 8.8 X10^3/uL (4.5-11.0)
--- NOTE | 2021-05-13 15:43 | ED.NEUROSD ---
HPI - Neuro Symptoms/Deficit <Sammi Chavo, DO - Last Filed: 05/14/21 14:24> General Chief Complaint: Neuro Symptoms/Deficit Stated Complaint: n/v Time Seen by Provider: 05/13/21 15:29 Source: EMS Mode of arrival: EMS History of Present Illness HPI Narrative: Patient is a 70-year-old male with history of hypertension, non STEMI, rheumatoid arthritis, chronic back pain type 2 diabetes presenting with generalized weakness nausea vomiting mild headache. He is also complaining of some back pain. He feels like both legs are weak. He said yesterday he was doing fine however this morning he woke up and was having severe nausea. He is currently dry heaving not actively vomiting. Complaining of mid low back pain. He is noted to be quite hypertensive. Stating that he could not take his blood pressure medications because he was unable to keep them down. He denies any chest pain or palpitations. On Anticoagulants: No (baby asa) Related Data Home Medications Medication Instructions Recorded Confirmed Glucose: Test Strips 1 strip MISCELLANEOUS DIRECTED 04/29/18 05/10/21 atorvastatin 20 mg tablet 20 mg PO DAILY 04/03/19 05/13/21 aspirin 81 mg tablet,delayed 81 mg PO DAILY 05/20/20 05/13/21 release (Adult Aspirin Regimen) amlodipine 10 mg tablet mg 05/13/21 Previous Rx's Medication Instructions Recorded oxybutynin chloride 15 mg See Rx Instructions .ROUTE 12/07/19 tablet,extended release 24 hr .COMPLEX #90 tablet acetaminophen 325 mg tablet 975 mg PO TID #40 tab 01/08/20 lidocaine 5 % topical patch 1 patch TOP DAILY #30 each 02/10/20 Knee high compression stocking #2 ea 10/26/20 metoprolol succinate 50 mg See Rx Instructions .ROUTE 11/03/20 tablet,extended release 24 hr .COMPLEX #180 tab duloxetine 30 mg capsule,delayed See Rx Instructions .ROUTE 12/19/20 release .COMPLEX #90 cap glipizide 5 mg tablet See Rx Instructions .ROUTE 02/10/21 .COMPLEX #90 tab tamsulosin 0.4 mg capsule See Rx Instructions .ROUTE 02/14/21 .COMPLEX #180 cap amlodipine 10 mg tablet See Rx Instructions .ROUTE 04/07/21 .COMPLEX #90 tab gabapentin 600 mg tablet See Rx Instructions .ROUTE 04/07/21 .COMPLEX #540 tab isosorbide mononitrate 60 mg See Rx Instructions .ROUTE 04/07/21 tablet,extended release 24 hr .COMPLEX #90 tab oxycodone 10 mg tablet 10 mg PO TID PRN #90 tab 04/21/21 Allergies Allergy/AdvReac Type Severity Reaction Status Date / Time latex Allergy Mild RASH/ITCH Verified 05/10/21 08:50 (tape) pollen extracts Allergy Mild SINUS AND Verified 05/10/21 08:50 [POLLEN EXTRACTS] CHEST CONGESTION adhesive tape [ADHESIVE TAPE] AdvReac Unknown ITCHY Verified 05/10/21 08:50 Review of Systems <Sammi Tony DO - Last Filed: 05/14/21 14:24> Constitutional Comments: GENERAL: Denies chills, fatigue, malaise, fever, sweats, travel HEENT: Denies sinus pain, ear pain, sore throat, difficulty swallowing, neck pain RESPIRATORY: Denies dyspnea, cough, wheezing, hemoptysis, sputum. CARDIOVASCULAR: Denies chest pain, palpitations, orthopnea, edema GASTROINTESTINAL: See HPI : Denies dysuria, frequency, incontinence, hematuria, urinary retention, flank pain. MUSCULOSKELETAL: Chronic back pain with back pain SKIN: No rash, no erythema, no pruritus NEUROLOGIC: Denies weakness, dizziness, headache, numbness, change in speech, confusion PSYCHIATRIC: No concerning psychosocial issues. 12 point review of systems is negative except for those stated above and HPI Hematologic/Lymphatic On Anticoagulants: No (baby asa) Patient History <Sammi Tony DO - Last Filed: 05/14/21 14:24> Medical History (Updated 05/14/21 @ 14:24 by Sammi Tony DO) Acute ankle pain Ankle fracture Anxiety (Unknown) Aortic stenosis Ascending aorta dilatation Bilateral carotid artery disease (~09/2018) Bilateral carpal tunnel syndrome BPH (benign prostatic hyperplasia) (Unknown) BPH w urinary obs/LUTS Cervical somatic dysfunction Chronic back pain Chronic kidney disease Chronic pain of right ankle Chronic pain syndrome (Unknown) Chronic renal insufficiency (Unknown) Coronary artery disease (Unknown) Cranial somatic dysfunction Depression (Unknown) Diabetes (Unknown) Diabetic neuropathy associated with type 2 diabetes mellitus Edema of left lower extremity Enlarged prostate Erectile dysfunction Erectile dysfunction GERD (gastroesophageal reflux disease) (Unknown) History of ETOH abuse (Unknown) Hyperlipemia (Unknown) Hypertension (Unknown) Hypertensive crisis Leg cramps, sleep related Low back pain (Unknown) Lumbar back pain with radiculopathy affecting right lower extremity Moderate right ankle sprain Nonallopathic lesion of lumbar region, not elsewhere classified Pain in knee region after replacement of knee joint Pancreatitis Pelvic somatic dysfunction Peripheral neuropathy (Unknown) Plantar fasciitis of left foot Rheumatoid arthritis (Unknown) Rheumatoid arthritis Right ankle swelling Sacral region somatic dysfunction Salivary gland swelling Seasonal allergic rhinitis Segmental and somatic dysfunction of abdomen and other regions Segmental and somatic dysfunction of rib cage Seroma after procedure Sleep initiation dysfunction Somatic dysfunction of lower extremity Somatic dysfunction of right lower extremity Stiff neck Swelling of knee joint, right Thoracic region somatic dysfunction Trigger finger, left ring finger Trigger finger, right ring finger Upper extremity somatic dysfunction Urine retention Surgical History History of back surgery (~2012) History of surgery History of surgical removal of skin lesion Hx of cholecystectomy S/P cervical spinal fusion Status post hernia repair Status post knee surgery Vasectomy status Family History Mother Stroke Father Cancer Social History household members: none Smoking Status: Former smoker alcohol intake: current Smoking Status: Former smoker alcohol intake frequency: holidays/special occasions only Alcohol type: beer and wine Substance Use Type: marijuana Exam <Sammi Tony DO - Last Filed: 05/14/21 14:24> Initial Vital Signs Initial Vital Signs: Vital Signs Temperature 99.2 F 05/13/21 14:49 Pulse Rate 114 H 05/13/21 14:49 Respiratory Rate 14 05/13/21 14:49 Blood Pressure 208/99 H 05/13/21 14:49 Pulse Oximetry 99 05/13/21 14:49 GENERAL: Alert will 70-year-old male dry heaving HEENT: Head atraumatic,EOMI, pupils reactive, face symmetric, [moist] mucous membranes CARDIOVASCULAR: Regular rate and rhythm without murmurs, rubs or gallops. RESPIRATORY: Breath sounds equal bilaterally, no wheezes rales or rhonchi. ABDOMEN: Soft, nontender. Normoactive bowel sounds all 4 quadrants. No guarding or rebound. EXTREMITIES: Normal range of motion, no clubbing or edema. Neurovascularly intact. Distal pedal pulses intact and equal feet are warm. right lower extremity is 1 secondary to repair NEUROLOGICAL: Alert and oriented x4.Normal gait and speech. Bilateral lower extremity weakness within past 7 active motion. 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 Good [id number]. Face is symmetric SKIN: Warm, dry, no laceration, no petechiae, no rashes or lesions. <Jesús Hooper DO - Last Filed: 05/15/21 06:33> Initial Vital Signs Initial Vital Signs: Vital Signs Temperature 99.2 F 05/13/21 14:49 Pulse Rate 114 H 05/13/21 14:49 Respiratory Rate 14 05/13/21 14:49 Blood Pressure 208/99 H 05/13/21 14:49 Pulse Oximetry 99 05/13/21 14:49 Course <Sammi Tony DO - Last Filed: 05/14/21 14:24> Orders Ordered: Discontinued Medications Amlodipine Besylate (Amlodipine 5 Mg Tablet) 7.5 mg PO NOW ONE Stop: 05/13/21 21:04 Last Admin: 05/13/21 21:30 Dose: 7.5 mg Documented by: TISHA Aspirin (Aspirin 81 Mg Chew Tab) 324 mg PO NOW ONE Stop: 05/13/21 18:11 Last Admin: 05/13/21 18:28 Dose: 324 mg Documented by: GEN Heparin Sodium (Porcine) (Heparin 5,000 Unit/Ml Vial) 4,000 unit IV NOW ONE Stop: 05/13/21 18:00 Last Admin: 05/13/21 18:07 Dose: 4,000 unit Documented by: GEN Hydromorphone HCl (Hydromorphone 1 Mg Inj) 1 mg IV NOW ONE Stop: 05/13/21 16:29 Last Admin: 05/13/21 17:09 Dose: 1 mg Documented by: GEN Sodium Chloride (Normal Saline 0.9%) 1,000 mls @ 150 mls/hr IV CONT MINA Last Admin: 05/13/21 15:48 Dose: Not Given Documented by: ELE Sodium Chloride (Normal Saline 0.9%) 1,000 mls @ 1,000 mls/hr IV BOLUS ONE Stop: 05/13/21 16:44 Last Infusion: 05/13/21 17:38 Dose: 0 mls/hr Documented by: Admin: 05/13/21 15:57 Dose: 1,000 mls/hr Documented by: GEN Sodium Chloride (Normal Saline 0.9%) 1,000 mls @ 1,000 mls/hr IV BOLUS ONE Stop: 05/13/21 18:39 Last Infusion: 05/13/21 19:09 Dose: 0 mls/hr Documented by: Admin: 05/13/21 17:42 Dose: 1,000 mls/hr Documented by: GEN Heparin Sodium/Dextrose (Heparin Drip) 25,000 unit in 500 mls @ 18.507 mls/hr IV CONT MINA; Protocol Last Titration: 05/14/21 11:38 Dose: 13.29 units/kg/hr, 20.5 mls/hr Documented by: Titration: 05/14/21 09:30 Dose: 13.94 units/kg/hr, 21.5 mls/hr Documented by: Titration: 05/14/21 06:29 Dose: 13.29 units/kg/hr, 20.5 mls/hr Documented by: Titration: 05/14/21 05:15 Dose: 12.65 units/kg/hr, 19.507 mls/hr Documented by: Admin: 05/13/21 18:10 Dose: 12 units/kg/hr, 18.507 mls/hr Documented by: GEN Nicardipine HCl 25 mg/ Sodium (Chloride) 250 mls @ 50 mls/hr IV TITRATE MINA; Protocol Last Titration: 05/14/21 04:52 Dose: 0 mg/hr, 0 mls/hr Documented by: Titration: 05/14/21 00:45 Dose: 2.5 mg/hr, 25 mls/hr Documented by: Admin: 05/13/21 23:14 Dose: 5 mg/hr, 50 mls/hr Documented by: TISHA Labetalol HCl (Labetalol 20 Mg/4 Ml Syringe) 10 mg IV NOW ONE Stop: 05/13/21 16:23 Last Admin: 05/13/21 16:30 Dose: 10 mg Documented by: GEN Metoclopramide HCl (Metoclopramide 10 Mg/2 Ml Inj) 10 mg IV NOW ONE Stop: 05/13/21 15:45 Last Admin: 05/13/21 15:57 Dose: 10 mg Documented by: GEN Metoprolol Succinate (Metoprolol Er 50 Mg Tablet) 50 mg PO NOW ONE Stop: 05/13/21 21:04 Last Admin: 05/13/21 21:30 Dose: 50 mg Documented by: TISHA Ondansetron HCl (Ondansetron 4 Mg/2 Ml Inj) 4 mg IV NOW ONE Stop: 05/13/21 15:23 Last Admin: 05/13/21 15:23 Dose: Not Given Documented by: ELE Vital Signs Vital signs: Vital Signs - 8 hr 05/14/21 06:30 05/14/21 06:45 05/14/21 07:00 Pulse Rate 76 80 84 Respiratory Rate Blood Pressure 163/79 H 177/86 H Pulse Oximetry 95 98 98 05/14/21 07:15 05/14/21 07:30 05/14/21 07:45 Pulse Rate 95 H 82 90 Respiratory Rate 14 13 Blood Pressure 196/89 H Pulse Oximetry 95 97 97 05/14/21 08:00 05/14/21 08:15 05/14/21 08:30 Pulse Rate 90 91 H 85 Respiratory Rate 21 18 22 Blood Pressure 183/88 H 182/88 H Pulse Oximetry 98 97 95 05/14/21 08:45 05/14/21 09:00 05/14/21 09:15 Pulse Rate 98 H 86 82 Respiratory Rate 23 15 21 Blood Pressure 177/86 H Pulse Oximetry 97 96 95 05/14/21 09:30 05/14/21 09:45 05/14/21 10:00 Pulse Rate 84 101 H 97 H Respiratory Rate 24 Blood Pressure 179/86 H 151/92 H Pulse Oximetry 95 96 96 05/14/21 10:15 05/14/21 10:30 05/14/21 10:45 Pulse Rate 86 81 84 Respiratory Rate 14 24 22 Blood Pressure 170/79 H Pulse Oximetry 97 95 96 05/14/21 11:00 05/14/21 11:15 05/14/21 11:30 Pulse Rate 87 85 91 H Respiratory Rate 23 19 21 Blood Pressure 165/78 H 181/85 H Pulse Oximetry 95 95 94 05/14/21 11:45 05/14/21 12:00 05/14/21 12:15 Pulse Rate 99 H 93 H 97 H Respiratory Rate 16 15 16 Blood Pressure 191/87 H Pulse Oximetry 98 99 98 05/14/21 12:30 05/14/21 12:45 05/14/21 13:00 Pulse Rate 94 H 85 94 H Respiratory Rate 17 23 15 Blood Pressure 190/90 H 171/88 H Pulse Oximetry 93 91 99 <Jesús Hooper, DO - Last Filed: 05/15/21 06:33> Course Course Narrative: Patient received in sign-out from Dr. Tony. I have performed an independent history and physical exam and agree with her assessment. Are currently awaiting call back from facilities regarding transfer due to rising troponin and inability to perform stress testing at our facility Additional Information: patient had rising BP into the 220s. He was given his routine medications and also a round of Labetalol. Decision made to give Nicardipine drip for more tight control BP well controlled and eventually down to the 110s, however it was stopped when he became a bit dizzy when walking to bathroom. Still on wait list for [facility] No beds at [place] No beds at [facility] Orders Ordered: Discontinued Medications Amlodipine Besylate (Amlodipine 5 Mg Tablet) 7.5 mg PO NOW ONE Stop: 05/13/21 21:04 Last Admin: 05/13/21 21:30 Dose: 7.5 mg Documented by: TISHA Aspirin (Aspirin 81 Mg Chew Tab) 324 mg PO NOW ONE Stop: 05/13/21 18:11 Last Admin: 05/13/21 18:28 Dose: 324 mg Documented by: GEN Heparin Sodium (Porcine) (Heparin 5,000 Unit/Ml Vial) 4,000 unit IV NOW ONE Stop: 05/13/21 18:00 Last Admin: 05/13/21 18:07 Dose: 4,000 unit Documented by: GEN Hydromorphone HCl (Hydromorphone 1 Mg Inj) 1 mg IV NOW ONE Stop: 05/13/21 16:29 Last Admin: 05/13/21 17:09 Dose: 1 mg Documented by: GEN Sodium Chloride (Normal Saline 0.9%) 1,000 mls @ 150 mls/hr IV CONT MINA Last Admin: 05/13/21 15:48 Dose: Not Given Documented by: ELE Sodium Chloride (Normal Saline 0.9%) 1,000 mls @ 1,000 mls/hr IV BOLUS ONE Stop: 05/13/21 16:44 Last Infusion: 05/13/21 17:38 Dose: 0 mls/hr Documented by: Admin: 05/13/21 15:57 Dose: 1,000 mls/hr Documented by: GEN Sodium Chloride (Normal Saline 0.9%) 1,000 mls @ 1,000 mls/hr IV BOLUS ONE Stop: 05/13/21 18:39 Last Infusion: 05/13/21 19:09 Dose: 0 mls/hr Documented by: Admin: 05/13/21 17:42 Dose: 1,000 mls/hr Documented by: GEN Heparin Sodium/Dextrose (Heparin Drip) 25,000 unit in 500 mls @ 18.507 mls/hr IV CONT MINA; Protocol Last Titration: 05/14/21 11:38 Dose: 13.29 units/kg/hr, 20.5 mls/hr Documented by: Titration: 05/14/21 09:30 Dose: 13.94 units/kg/hr, 21.5 mls/hr Documented by: Titration: 05/14/21 06:29 Dose: 13.29 units/kg/hr, 20.5 mls/hr Documented by: Titration: 05/14/21 05:15 Dose: 12.65 units/kg/hr, 19.507 mls/hr Documented by: Admin: 05/13/21 18:10 Dose: 12 units/kg/hr, 18.507 mls/hr Documented by: GEN Nicardipine HCl 25 mg/ Sodium (Chloride) 250 mls @ 50 mls/hr IV TITRATE MINA; Protocol Last Titration: 05/14/21 04:52 Dose: 0 mg/hr, 0 mls/hr Documented by: Titration: 05/14/21 00:45 Dose: 2.5 mg/hr, 25 mls/hr Documented by: Admin: 05/13/21 23:14 Dose: 5 mg/hr, 50 mls/hr Documented by: TISHA Labetalol HCl (Labetalol 20 Mg/4 Ml Syringe) 10 mg IV NOW ONE Stop: 05/13/21 16:23 Last Admin: 05/13/21 16:30 Dose: 10 mg Documented by: GEN Metoclopramide HCl (Metoclopramide 10 Mg/2 Ml Inj) 10 mg IV NOW ONE Stop: 05/13/21 15:45 Last Admin: 05/13/21 15:57 Dose: 10 mg Documented by: GEN Metoprolol Succinate (Metoprolol Er 50 Mg Tablet) 50 mg PO NOW ONE Stop: 05/13/21 21:04 Last Admin: 05/13/21 21:30 Dose: 50 mg Documented by: TISHA Ondansetron HCl (Ondansetron 4 Mg/2 Ml Inj) 4 mg IV NOW ONE Stop: 05/13/21 15:23 Last Admin: 05/13/21 15:23 Dose: Not Given Documented by: ELE Vital Signs Vital signs: Vital Signs - 8 hr 05/14/21 06:30 05/14/21 06:45 05/14/21 07:00 Pulse Rate 76 80 84 Respiratory Rate Blood Pressure 163/79 H 177/86 H Pulse Oximetry 95 98 98 05/14/21 07:15 05/14/21 07:30 05/14/21 07:45 Pulse Rate 95 H 82 90 Respiratory Rate 14 13 Blood Pressure 196/89 H Pulse Oximetry 95 97 97 05/14/21 08:00 05/14/21 08:15 05/14/21 08:30 Pulse Rate 90 91 H 85 Respiratory Rate 21 18 22 Blood Pressure 183/88 H 182/88 H Pulse Oximetry 98 97 95 05/14/21 08:45 05/14/21 09:00 05/14/21 09:15 Pulse Rate 98 H 86 82 Respiratory Rate 23 15 21 Blood Pressure 177/86 H Pulse Oximetry 97 96 95 05/14/21 09:30 05/14/21 09:45 05/14/21 10:00 Pulse Rate 84 101 H 97 H Respiratory Rate 24 Blood Pressure 179/86 H 151/92 H Pulse Oximetry 95 96 96 05/14/21 10:15 05/14/21 10:30 05/14/21 10:45 Pulse Rate 86 81 84 Respiratory Rate 14 24 22 Blood Pressure 170/79 H Pulse Oximetry 97 95 96 05/14/21 11:00 05/14/21 11:15 05/14/21 11:30 Pulse Rate 87 85 91 H Respiratory Rate 23 19 21 Blood Pressure 165/78 H 181/85 H Pulse Oximetry 95 95 94 05/14/21 11:45 05/14/21 12:00 05/14/21 12:15 Pulse Rate 99 H 93 H 97 H Respiratory Rate 16 15 16 Blood Pressure 191/87 H Pulse Oximetry 98 99 98 05/14/21 12:30 05/14/21 12:45 05/14/21 13:00 Pulse Rate 94 H 85 94 H Respiratory Rate 17 23 15 Blood Pressure 190/90 H 171/88 H Pulse Oximetry 93 91 99 MDM - Neuro Symptoms/Deficit <Sammi Tony DO - Last Filed: 05/14/21 14:24> Lab Data Result diagrams: 05/14/21 06:05 05/13/21 14:55 Labs: Lab Results 05/13/21 05/13/21 05/13/21 Range/Units 14:55 14:55 14:55 WBC 8.8 (4.5-11.0) X10^3/uL RBC 4.69 (4.5-5.9) X10^6/uL Hgb 14.3 (13.5-17.5) g/dL Hct 42.8 (41-53) % MCV 91.2 (80-100) fL MCH 30.5 (26-34) PG MCHC 33.5 (30-36) % RDW 14.1 (11.6-14.8) % Plt Count 229 (150-400) X10^3/uL Neut % (Auto) 70.5 (50-75) % Lymph % (Auto) 24.6 L (25-40) % [place] % (Auto) 4.6 (3-14) % Eos % (Auto) 0.0 L (2-4) % Baso % (Auto) 0.3 (0-2) % Neut # (Auto) 6200 (9262-6130) /uL Lymph # (Auto) 2200 (6829-9619) /uL [place] # (Auto) 400 (0-900) /uL Eos # (Auto) 0 (0-450) /uL Baso # (Auto) 0 (0-100) /uL APTT (26.4-36.2) SECONDS Sodium 138 (137-145) mmol/L Potassium 4.0 (3.4-5.1) mmol/L Chloride 103 (98-107) mmol/L Carbon Dioxide 18 L (22-32) mmol/L BUN 23 H (9-20) mg/dL Creatinine 1.17 (0.66-1.25) mg/dL Estimated GFR > 60.0 (>60) mL/min BUN/Creatinine Ratio 19.7 (6-22) Glucose 214 H (80-110) mg/dL Lactate 2.4 H (0.7-2.1) mmol/L Calcium 10.5 H (8.4-10.2) mg/dL Total Bilirubin 1.4 H (0.2-1.3) mg/dL AST 46 (17-59) IU/L ALT 26 (<50) IU/L Alkaline Phosphatase 133 H (38-126) U/L Total Creatine Kinase 305 H (55-170) U/L CK-MB (CK-2) 3.66 H (<2.37) ng/mL CK-MB (CK-2) Rel Index 1.2 L (1.5-5.0) % Troponin I 0.064 H (0.01-0.034) ng/mL Total Protein 8.8 H (6.3-8.2) g/dL Albumin 5.0 (3.5-5.0) g/dL Globulin 3.8 (1.7-4.1) g/dL Albumin/Globulin Ratio 1.3 (1.0-2.8) Lipase (23-300) U/L Urine Color Urine Appearance Urine pH (4.5-8.0) Ur Specific [place] (1.000-1.035) Urine Protein (Negative) Urine Glucose (UA) (Negative) g/dL Urine Ketones (NEGATIVE) Urine Occult Blood (Negative) Urine Nitrate (Negative) Urine Bilirubin (NEGATIVE) Urine Urobilinogen (0.2) E.U./dL Ur Leukocyte Esterase (NEGATIVE) Urine RBC (0-5/HPF) Urine WBC (0-5/HPF) Ur Squamous Epith Cells (0-5/HPF) Urine Bacteria (None) Ur Culture Indicated? U Opiates 300ng/mL cut (Negative) Ur Oxycodone Screen (Negative) Urine Methadone Screen (Negative) Ur Barbiturates Screen (Negative) U Tricyclic Antidepress (Negative) Ur Phencyclidine Scrn (Negative) Ur Amphetamines Screen (Negative) U Methamphetamines Scrn (Negative) Ur MDMA Scrn (Ecstasy) (Negative) U Benzodiazepines Scrn (Negative) Urine Cocaine Screen (Negative) U Marijuana (THC) Screen (Negative) SARS-CoV-2 (PCR) (Negative) 05/13/21 05/13/21 05/13/21 Range/Units 14:55 16:00 16:00 WBC (4.5-11.0) X10^3/uL RBC (4.5-5.9) X10^6/uL Hgb (13.5-17.5) g/dL Hct (41-53) % MCV (80-100) fL MCH (26-34) PG MCHC (30-36) % RDW (11.6-14.8) % Plt Count (150-400) X10^3/uL Neut % (Auto) (50-75) % Lymph % (Auto) (25-40) % [place] % (Auto) (3-14) % Eos % (Auto) (2-4) % Baso % (Auto) (0-2) % Neut # (Auto) (7346-0441) /uL Lymph # (Auto) (4556-5784) /uL [place] # (Auto) (0-900) /uL Eos # (Auto) (0-450) /uL Baso # (Auto) (0-100) /uL APTT 28 (26.4-36.2) SECONDS Sodium (137-145) mmol/L Potassium (3.4-5.1) mmol/L Chloride (98-107) mmol/L Carbon Dioxide (22-32) mmol/L BUN (9-20) mg/dL Creatinine (0.66-1.25) mg/dL Estimated GFR (>60) mL/min BUN/Creatinine Ratio (6-22) Glucose (80-110) mg/dL Lactate (0.7-2.1) mmol/L Calcium (8.4-10.2) mg/dL Total Bilirubin (0.2-1.3) mg/dL AST (17-59) IU/L ALT (<50) IU/L Alkaline Phosphatase (38-126) U/L Total Creatine Kinase (55-170) U/L CK-MB (CK-2) (<2.37) ng/mL CK-MB (CK-2) Rel Index (1.5-5.0) % Troponin I (0.01-0.034) ng/mL Total Protein (6.3-8.2) g/dL Albumin (3.5-5.0) g/dL Globulin (1.7-4.1) g/dL Albumin/Globulin Ratio (1.0-2.8) Lipase (23-300) U/L Urine Color Yellow Urine Appearance Clear Urine pH 7.0 (4.5-8.0) Ur Specific [place] 1.015 (1.000-1.035) Urine Protein 3+ H (Negative) Urine Glucose (UA) Trace H (Negative) g/dL Urine Ketones 2+ H (NEGATIVE) Urine Occult Blood 2+ H (Negative) Urine Nitrate Negative (Negative) Urine Bilirubin Negative (NEGATIVE) Urine Urobilinogen 0.2 (0.2) E.U./dL Ur Leukocyte Esterase Negative (NEGATIVE) Urine RBC 1-5/hpf (0-5/HPF) Urine WBC 0-1/hpf (0-5/HPF) Ur Squamous Epith Cells 0-1 /hpf (0-5/HPF) Urine Bacteria None seen (None) Ur Culture Indicated? Cult not indicated U Opiates 300ng/mL cut Negative (Negative) Ur Oxycodone Screen Negative (Negative) Urine Methadone Screen Negative (Negative) Ur Barbiturates Screen Negative (Negative) U Tricyclic Antidepress Negative (Negative) Ur Phencyclidine Scrn Negative (Negative) Ur Amphetamines Screen Negative (Negative) U Methamphetamines Scrn Negative (Negative) Ur MDMA Scrn (Ecstasy) Negative (Negative) U Benzodiazepines Scrn Negative (Negative) Urine Cocaine Screen Negative (Negative) U Marijuana (THC) Screen Positive H (Negative) SARS-CoV-2 (PCR) (Negative) 05/13/21 05/13/21 05/13/21 Range/Units 16:18 17:20 17:20 WBC (4.5-11.0) X10^3/uL RBC (4.5-5.9) X10^6/uL Hgb (13.5-17.5) g/dL Hct (41-53) % MCV (80-100) fL MCH (26-34) PG MCHC (30-36) % RDW (11.6-14.8) % Plt Count (150-400) X10^3/uL Neut % (Auto) (50-75) % Lymph % (Auto) (25-40) % [place] % (Auto) (3-14) % Eos % (Auto) (2-4) % Baso % (Auto) (0-2) % Neut # (Auto) (8326-3374) /uL Lymph # (Auto) (7873-0273) /uL [place] # (Auto) (0-900) /uL Eos # (Auto) (0-450) /uL Baso # (Auto) (0-100) /uL APTT (26.4-36.2) SECONDS Sodium (137-145) mmol/L Potassium (3.4-5.1) mmol/L Chloride (98-107) mmol/L Carbon Dioxide (22-32) mmol/L BUN (9-20) mg/dL Creatinine (0.66-1.25) mg/dL Estimated GFR (>60) mL/min BUN/Creatinine Ratio (6-22) Glucose (80-110) mg/dL Lactate (0.7-2.1) mmol/L Calcium (8.4-10.2) mg/dL Total Bilirubin (0.2-1.3) mg/dL AST (17-59) IU/L ALT (<50) IU/L Alkaline Phosphatase (38-126) U/L Total Creatine Kinase (55-170) U/L CK-MB (CK-2) (<2.37) ng/mL CK-MB (CK-2) Rel Index (1.5-5.0) % Troponin I 0.136 H* (0.01-0.034) ng/mL Total Protein (6.3-8.2) g/dL Albumin (3.5-5.0) g/dL Globulin (1.7-4.1) g/dL Albumin/Globulin Ratio (1.0-2.8) Lipase 122 (23-300) U/L Urine Color Urine Appearance Urine pH (4.5-8.0) Ur Specific [place] (1.000-1.035) Urine Protein (Negative) Urine Glucose (UA) (Negative) g/dL Urine Ketones (NEGATIVE) Urine Occult Blood (Negative) Urine Nitrate (Negative) Urine Bilirubin (NEGATIVE) Urine Urobilinogen (0.2) E.U./dL Ur Leukocyte Esterase (NEGATIVE) Urine RBC (0-5/HPF) Urine WBC (0-5/HPF) Ur Squamous Epith Cells (0-5/HPF) Urine Bacteria (None) Ur Culture Indicated? U Opiates 300ng/mL cut (Negative) Ur Oxycodone Screen (Negative) Urine Methadone Screen (Negative) Ur Barbiturates Screen (Negative) U Tricyclic Antidepress (Negative) Ur Phencyclidine Scrn (Negative) Ur Amphetamines Screen (Negative) U Methamphetamines Scrn (Negative) Ur MDMA Scrn (Ecstasy) (Negative) U Benzodiazepines Scrn (Negative) Urine Cocaine Screen (Negative) U Marijuana (THC) Screen (Negative) SARS-CoV-2 (PCR) Negative (Negative) 05/13/21 05/13/21 05/13/21 Range/Units 17:20 22:15 22:15 WBC (4.5-11.0) X10^3/uL RBC (4.5-5.9) X10^6/uL Hgb 15.2 (13.5-17.5) g/dL Hct 44.7 (41-53) % MCV (80-100) fL MCH (26-34) PG MCHC (30-36) % RDW (11.6-14.8) % Plt Count (150-400) X10^3/uL Neut % (Auto) (50-75) % Lymph % (Auto) (25-40) % [place] % (Auto) (3-14) % Eos % (Auto) (2-4) % Baso % (Auto) (0-2) % Neut # (Auto) (0195-5708) /uL Lymph # (Auto) (8351-1045) /uL [place] # (Auto) (0-900) /uL Eos # (Auto) (0-450) /uL Baso # (Auto) (0-100) /uL APTT (26.4-36.2) SECONDS Sodium (137-145) mmol/L Potassium (3.4-5.1) mmol/L Chloride (98-107) mmol/L Carbon Dioxide (22-32) mmol/L BUN (9-20) mg/dL Creatinine (0.66-1.25) mg/dL Estimated GFR (>60) mL/min BUN/Creatinine Ratio (6-22) Glucose (80-110) mg/dL Lactate 2.6 H (0.7-2.1) mmol/L Calcium (8.4-10.2) mg/dL Total Bilirubin (0.2-1.3) mg/dL AST (17-59) IU/L ALT (<50) IU/L Alkaline Phosphatase (38-126) U/L Total Creatine Kinase (55-170) U/L CK-MB (CK-2) (<2.37) ng/mL CK-MB (CK-2) Rel Index (1.5-5.0) % Troponin I 0.569 H* (0.01-0.034) ng/mL Total Protein (6.3-8.2) g/dL Albumin (3.5-5.0) g/dL Globulin (1.7-4.1) g/dL Albumin/Globulin Ratio (1.0-2.8) Lipase (23-300) U/L Urine Color Urine Appearance Urine pH (4.5-8.0) Ur Specific [place] (1.000-1.035) Urine Protein (Negative) Urine Glucose (UA) (Negative) g/dL Urine Ketones (NEGATIVE) Urine Occult Blood (Negative) Urine Nitrate (Negative) Urine Bilirubin (NEGATIVE) Urine Urobilinogen (0.2) E.U./dL Ur Leukocyte Esterase (NEGATIVE) Urine RBC (0-5/HPF) Urine WBC (0-5/HPF) Ur Squamous Epith Cells (0-5/HPF) Urine Bacteria (None) Ur Culture Indicated? U Opiates 300ng/mL cut (Negative) Ur Oxycodone Screen (Negative) Urine Methadone Screen (Negative) Ur Barbiturates Screen (Negative) U Tricyclic Antidepress (Negative) Ur Phencyclidine Scrn (Negative) Ur Amphetamines Screen (Negative) U Methamphetamines Scrn (Negative) Ur MDMA Scrn (Ecstasy) (Negative) U Benzodiazepines Scrn (Negative) Urine Cocaine Screen (Negative) U Marijuana (THC) Screen (Negative) SARS-CoV-2 (PCR) (Negative) 05/13/21 05/14/21 05/14/21 Range/Units 23:35 06:05 06:05 WBC (4.5-11.0) X10^3/uL RBC (4.5-5.9) X10^6/uL Hgb 14.8 (13.5-17.5) g/dL Hct 43.5 (41-53) % MCV (80-100) fL MCH (26-34) PG MCHC (30-36) % RDW (11.6-14.8) % Plt Count (150-400) X10^3/uL Neut % (Auto) (50-75) % Lymph % (Auto) (25-40) % [place] % (Auto) (3-14) % Eos % (Auto) (2-4) % Baso % (Auto) (0-2) % Neut # (Auto) (0339-0336) /uL Lymph # (Auto) (3116-4601) /uL [place] # (Auto) (0-900) /uL Eos # (Auto) (0-450) /uL Baso # (Auto) (0-100) /uL APTT 44 H D 43 H (26.4-36.2) SECONDS Sodium (137-145) mmol/L Potassium (3.4-5.1) mmol/L Chloride (98-107) mmol/L Carbon Dioxide (22-32) mmol/L BUN (9-20) mg/dL Creatinine (0.66-1.25) mg/dL Estimated GFR (>60) mL/min BUN/Creatinine Ratio (6-22) Glucose (80-110) mg/dL Lactate (0.7-2.1) mmol/L Calcium (8.4-10.2) mg/dL Total Bilirubin (0.2-1.3) mg/dL AST (17-59) IU/L ALT (<50) IU/L Alkaline Phosphatase (38-126) U/L Total Creatine Kinase (55-170) U/L CK-MB (CK-2) (<2.37) ng/mL CK-MB (CK-2) Rel Index (1.5-5.0) % Troponin I (0.01-0.034) ng/mL Total Protein (6.3-8.2) g/dL Albumin (3.5-5.0) g/dL Globulin (1.7-4.1) g/dL Albumin/Globulin Ratio (1.0-2.8) Lipase (23-300) U/L Urine Color Urine Appearance Urine pH (4.5-8.0) Ur Specific [place] (1.000-1.035) Urine Protein (Negative) Urine Glucose (UA) (Negative) g/dL Urine Ketones (NEGATIVE) Urine Occult Blood (Negative) Urine Nitrate (Negative) Urine Bilirubin (NEGATIVE) Urine Urobilinogen (0.2) E.U./dL Ur Leukocyte Esterase (NEGATIVE) Urine RBC (0-5/HPF) Urine WBC (0-5/HPF) Ur Squamous Epith Cells (0-5/HPF) Urine Bacteria (None) Ur Culture Indicated? U Opiates 300ng/mL cut (Negative) Ur Oxycodone Screen (Negative) Urine Methadone Screen (Negative) Ur Barbiturates Screen (Negative) U Tricyclic Antidepress (Negative) Ur Phencyclidine Scrn (Negative) Ur Amphetamines Screen (Negative) U Methamphetamines Scrn (Negative) Ur MDMA Scrn (Ecstasy) (Negative) U Benzodiazepines Scrn (Negative) Urine Cocaine Screen (Negative) U Marijuana (THC) Screen (Negative) SARS-CoV-2 (PCR) (Negative) 05/14/21 05/14/21 Range/Units 08:10 13:00 WBC (4.5-11.0) X10^3/uL RBC (4.5-5.9) X10^6/uL Hgb (13.5-17.5) g/dL Hct (41-53) % MCV (80-100) fL MCH (26-34) PG MCHC (30-36) % RDW (11.6-14.8) % Plt Count (150-400) X10^3/uL Neut % (Auto) (50-75) % Lymph % (Auto) (25-40) % [place] % (Auto) (3-14) % Eos % (Auto) (2-4) % Baso % (Auto) (0-2) % Neut # (Auto) (5081-9404) /uL Lymph # (Auto) (4715-9197) /uL [place] # (Auto) (0-900) /uL Eos # (Auto) (0-450) /uL Baso # (Auto) (0-100) /uL APTT 45 H (26.4-36.2) SECONDS Sodium (137-145) mmol/L Potassium (3.4-5.1) mmol/L Chloride (98-107) mmol/L Carbon Dioxide (22-32) mmol/L BUN (9-20) mg/dL Creatinine (0.66-1.25) mg/dL Estimated GFR (>60) mL/min BUN/Creatinine Ratio (6-22) Glucose (80-110) mg/dL Lactate (0.7-2.1) mmol/L Calcium (8.4-10.2) mg/dL Total Bilirubin (0.2-1.3) mg/dL AST (17-59) IU/L ALT (<50) IU/L Alkaline Phosphatase (38-126) U/L Total Creatine Kinase (55-170) U/L CK-MB (CK-2) (<2.37) ng/mL CK-MB (CK-2) Rel Index (1.5-5.0) % Troponin I 0.637 H* (0.01-0.034) ng/mL Total Protein (6.3-8.2) g/dL Albumin (3.5-5.0) g/dL Globulin (1.7-4.1) g/dL Albumin/Globulin Ratio (1.0-2.8) Lipase (23-300) U/L Urine Color Urine Appearance Urine pH (4.5-8.0) Ur Specific [place] (1.000-1.035) Urine Protein (Negative) Urine Glucose (UA) (Negative) g/dL Urine Ketones (NEGATIVE) Urine Occult Blood (Negative) Urine Nitrate (Negative) Urine Bilirubin (NEGATIVE) Urine Urobilinogen (0.2) E.U./dL Ur Leukocyte Esterase (NEGATIVE) Urine RBC (0-5/HPF) Urine WBC (0-5/HPF) Ur Squamous Epith Cells (0-5/HPF) Urine Bacteria (None) Ur Culture Indicated? U Opiates 300ng/mL cut (Negative) Ur Oxycodone Screen (Negative) Urine Methadone Screen (Negative) Ur Barbiturates Screen (Negative) U Tricyclic Antidepress (Negative) Ur Phencyclidine Scrn (Negative) Ur Amphetamines Screen (Negative) U Methamphetamines Scrn (Negative) Ur MDMA Scrn (Ecstasy) (Negative) U Benzodiazepines Scrn (Negative) Urine Cocaine Screen (Negative) U Marijuana (THC) Screen (Negative) SARS-CoV-2 (PCR) (Negative) Imaging Data Chest x-ray: Radiologist's Impression: PROCEDURE: XR CHEST 1V INDICATIONS: chest pain TECHNIQUE: One view of the chest was acquired. COMPARISON: [facility], CR, XR CHEST 1V, 12/26/2018, 14:35. FINDINGS: Surgical changes and devices: Lower cervical fusion hardware. Lungs and pleura: Lungs are clear. No pleural effusions or pneumothorax. Mediastinum: Mediastinal contours appear normal. Heart size is normal. Bones and chest wall: No suspicious bony lesions. Overlying soft tissues appear unremarkable. IMPRESSION: No evidence acute pulmonary process. Dictated by: Garry Middleton M.D. on 05/13/2021 at 14:50 CT scan - head: Radiologist's Impression: PROCEDURE: CT HEAD/BRAIN WO CON INDICATIONS: speech changes, hypertension, generalized weakness TECHNIQUE: Noncontrast 4.5 mm thick angled axial sections acquired from the foramen magnum to the vertex, with coronal and sagittal reformats. For radiation dose reduction, the following was used: automated exposure control, adjustment of mA and/or kV according to patient size. COMPARISON: [facility], CT, HEAD WITHOUT CONTRAST, 02/02/2018, 20:53. FINDINGS: Image quality: Excellent. CSF spaces: Basal cisterns are patent. No extra-axial fluid collections. The ventricles are symmetric in size and shape. Brain: No intracranial bleeds or masses. There is cerebral volume loss for age, with resultant ventricular and sulcal prominence. There are [id number] periventricular and deep white matter chronic small vessel ischemic changes. There is intracranial internal carotid artery atherosclerosis. Skull and face: Calvarium and visualized facial bones appear intact, without suspicious lesions. Sinuses: Visualized sinuses and mastoids are clear. IMPRESSION: 1. Age related volume loss and [id number] small vessel ischemic change. 2. No evidence acute stroke, hemorrhage, or mass. Dictated by: Garry Middleton M.D. on 05/13/2021 at 14:34 CT scan - abdomen/pelvis: Radiologist's Impression: PROCEDURE: CT ANGIO CHEST ABDOMEN PELVIS INDICATIONS: vomiting HTN, bilateral leg weakness TECHNIQUE: Precontrast 5 mm thick sections acquired from the lung apices to the iliac crests. After the administration of intravenous contrast, 2.5 mm thick sections again acquired from the lung apices to the iliac crests. Maximum intensity projection (MIP) oblique sagittal and coronal reformats were then acquired. For radiation dose reduction, the following was used: automated exposure control. COMPARISON: [facility], CT, ANGIO CHEST ABDOMEN PELVIS, 02/02/2018, 17:46. FINDINGS: Image quality: Excellent. AORTA and its attachments: Unchanged aneurysmal dilatation of the ascending aorta, measuring 4.5 cm. On the previous study it measured 4.6 cm. Classic three-vessel arch anatomy. There is a focal severe left subclavian artery calcified stenosis. The brachiocephalic artery and left common carotid artery are widely patent. No dissection. Descending thoracic aorta is of normal caliber. Abdominal aorta is of normal caliber. No significant stenosis involving the celiac and SMA. The renal arteries appear grossly patent. There is no significant stenosis involving the common iliacs are external iliacs. CHEST: Lungs and pleura: No acute airspace opacities. No pleural effusions or pneumothorax. Central and peripheral airways are patent and normal in caliber. Mediastinum: Heart size is normal. No pericardial effusion. Moderate coronary artery calcifications No mediastinal or hilar adenopathy by size criteria. Central pulmonary arteries are normal in size. Esophagus is normal in caliber. No hiatal hernias. Bones and chest wall: No axillary adenopathy by size criteria. Thyroid gland is unremarkable as visualized . No suspicious bony lesions. No vertebral body compression fractures. ABDOMEN: Vasculature: Celiac trunk and mesenteric arteries are patent. Renal arteries are also patent. Solid organs: Liver is normal in size and enhancement. Mild hepatic steatosis. Gallbladder is surgically absent. Biliary system is non dilated. Again noted is enlargement of the pancreatic head uncinate process with extensive low-density, most likely representing acute pancreatitis. There is edematous change in the body and tail and mild peripancreatic fluid. No free air or abscess cavity. Spleen is normal in size and enhancement. No adrenal nodules. Both kidneys are normal in size and enhancement, without hydronephrosis. Peritoneum and bowel: No free fluid or air. Bowel loops are normal in caliber and wall thickness. Nodes and vessels: No retroperitoneal or mesenteric adenopathy by size criteria. Inferior vena cava is normal in morphology. Miscellaneous: No ventral hernias. PELVIS: Genitourinary: Mild diffuse bladder wall thickening. Prostate is enlarged. Miscellaneous: No inguinal hernias or adenopathy. No ventral hernias. Bones: Remote L4 laminectomy and multilevel posterior lateral mellissa and pedicle screw fixation extending from L2 through S1. IMPRESSION: 1. Stable aneurysmal dilatation of the ascending aorta, measuring 4.5 cm. 2. Severe calcified proximal left subclavian artery stenosis. Question: Does this patient have any subclavian steal symptomatology? 3. Moderate coronary artery calcifications. . 4. Acute pancreatitis. Dictated by: Garry Middleton M.D. on 05/13/2021 at 15:10 Approved by: Garry Middleton M.D. on 05/13/2021 at 15:24 US - abdomen: Radiologist's Impression: PROCEDURE: US ABDOMEN LIMITED INDICATIONS: RUQ PAIN; VOMITING TECHNIQUE: Real-time focused scanning was performed of the abdomen, with image documentation. COMPARISON: None. FINDINGS: Liver is normal in size and echotexture. The main portal vein is normal in caliber and patent. The gallbladder could not be seen due to bowel gas. The common bile duct measures 7 mm, at the upper limits of normal. The pancreas visualized is normal. IMPRESSION: No acute disease found, source of current symptoms is not identified. Enteritis may explain this appearance. Depending on the clinical status follow-up by CT scanning may become necessary. Dictated by: Uzair Parra M.D. on 05/13/2021 at 18:25 ECG Data Interpretation: EKG 1. Normal sinus rhythm rate 108 T-waves do appear peaked the [address] changes no T-wave inversions EKG 2. Persistent peaked T-waves sinus rhythm rate [address] changes MDM Narrative Medical decision making narrative: Patient initially quite hypertensive with nausea vomiting pulsatile area felt in abdomen. CT angio was done which showed stable abdominal aortic aneurysm without dissection. He also has bilateral lower extremity weakness which is not consistent with stroke. Although he has no other focal deficits. Head CT was done and is negative. This may be related to his hypertension. Troponin returned initially indeterminate and then doubled and was positive. No EKG changes. Patient is feeling better after Reglan and Dilaudid. CT did show pancreatitis however lipase is normal slightly elevated bilirubin. Ultrasound does not show acute cholecystitis. She overall does not appear septic. Patient is extremely hypertensive and has been with systolics over 200. He is given 1 dose of labetalol. Troponin could also be a result of hypertensive emergency. Blood pressure responded very minimally to labetalol. Beds throughout the state are extremely limited. Patient is signed out to Dr. Hooper for further evaluation and management 05/14/21-Dr. Tony, I re-evaluated patient this morning. No events overnight. Troponin continues to rise. He continues to be on heparin drip. Apparently nifedipine drip was started for severe hypertension last night however dropped his pressure too low and he did not feel good. He has had no further abdominal pain nausea or vomiting over the evening. His lower extremity weakness has actually improved. He apparently requested a Barton catheter last night. [id number]-Dr. Galindo hospitalist at [facility] updated patient's symptoms test results and happily accepted patient for transfer <Jesús Hooper DO - Last Filed: 05/15/21 06:33> Lab Data Labs: Lab Results 05/13/21 05/13/21 05/13/21 Range/Units 14:55 14:55 14:55 WBC 8.8 (4.5-11.0) X10^3/uL RBC 4.69 (4.5-5.9) X10^6/uL Hgb 14.3 (13.5-17.5) g/dL Hct 42.8 (41-53) % MCV 91.2 (80-100) fL MCH 30.5 (26-34) PG MCHC 33.5 (30-36) % RDW 14.1 (11.6-14.8) % Plt Count 229 (150-400) X10^3/uL Neut % (Auto) 70.5 (50-75) % Lymph % (Auto) 24.6 L (25-40) % [place] % (Auto) 4.6 (3-14) % Eos % (Auto) 0.0 L (2-4) % Baso % (Auto) 0.3 (0-2) % Neut # (Auto) 6200 (0990-8382) /uL Lymph # (Auto) 2200 (1768-0578) /uL [place] # (Auto) 400 (0-900) /uL Eos # (Auto) 0 (0-450) /uL Baso # (Auto) 0 (0-100) /uL APTT (26.4-36.2) SECONDS Sodium 138 (137-145) mmol/L Potassium 4.0 (3.4-5.1) mmol/L Chloride 103 (98-107) mmol/L Carbon Dioxide 18 L (22-32) mmol/L BUN 23 H (9-20) mg/dL Creatinine 1.17 (0.66-1.25) mg/dL Estimated GFR > 60.0 (>60) mL/min BUN/Creatinine Ratio 19.7 (6-22) Glucose 214 H (80-110) mg/dL Lactate 2.4 H (0.7-2.1) mmol/L Calcium 10.5 H (8.4-10.2) mg/dL Total Bilirubin 1.4 H (0.2-1.3) mg/dL AST 46 (17-59) IU/L ALT 26 (<50) IU/L Alkaline Phosphatase 133 H (38-126) U/L Total Creatine Kinase 305 H (55-170) U/L CK-MB (CK-2) 3.66 H (<2.37) ng/mL CK-MB (CK-2) Rel Index 1.2 L (1.5-5.0) % Troponin I 0.064 H (0.01-0.034) ng/mL Total Protein 8.8 H (6.3-8.2) g/dL Albumin 5.0 (3.5-5.0) g/dL Globulin 3.8 (1.7-4.1) g/dL Albumin/Globulin Ratio 1.3 (1.0-2.8) Lipase (23-300) U/L Urine Color Urine Appearance Urine pH (4.5-8.0) Ur Specific [place] (1.000-1.035) Urine Protein (Negative) Urine Glucose (UA) (Negative) g/dL Urine Ketones (NEGATIVE) Urine Occult Blood (Negative) Urine Nitrate (Negative) Urine Bilirubin (NEGATIVE) Urine Urobilinogen (0.2) E.U./dL Ur Leukocyte Esterase (NEGATIVE) Urine RBC (0-5/HPF) Urine WBC (0-5/HPF) Ur Squamous Epith Cells (0-5/HPF) Urine Bacteria (None) Ur Culture Indicated? U Opiates 300ng/mL cut (Negative) Ur Oxycodone Screen (Negative) Urine Methadone Screen (Negative) Ur Barbiturates Screen (Negative) U Tricyclic Antidepress (Negative) Ur Phencyclidine Scrn (Negative) Ur Amphetamines Screen (Negative) U Methamphetamines Scrn (Negative) Ur MDMA Scrn (Ecstasy) (Negative) U Benzodiazepines Scrn (Negative) Urine Cocaine Screen (Negative) U Marijuana (THC) Screen (Negative) SARS-CoV-2 (PCR) (Negative) 05/13/21 05/13/21 05/13/21 Range/Units 14:55 16:00 16:00 WBC (4.5-11.0) X10^3/uL RBC (4.5-5.9) X10^6/uL Hgb (13.5-17.5) g/dL Hct (41-53) % MCV (80-100) fL MCH (26-34) PG MCHC (30-36) % RDW (11.6-14.8) % Plt Count (150-400) X10^3/uL Neut % (Auto) (50-75) % Lymph % (Auto) (25-40) % [place] % (Auto) (3-14) % Eos % (Auto) (2-4) % Baso % (Auto) (0-2) % Neut # (Auto) (3940-0825) /uL Lymph # (Auto) (1792-5081) /uL [place] # (Auto) (0-900) /uL Eos # (Auto) (0-450) /uL Baso # (Auto) (0-100) /uL APTT 28 (26.4-36.2) SECONDS Sodium (137-145) mmol/L Potassium (3.4-5.1) mmol/L Chloride (98-107) mmol/L Carbon Dioxide (22-32) mmol/L BUN (9-20) mg/dL Creatinine (0.66-1.25) mg/dL Estimated GFR (>60) mL/min BUN/Creatinine Ratio (6-22) Glucose (80-110) mg/dL Lactate (0.7-2.1) mmol/L Calcium (8.4-10.2) mg/dL Total Bilirubin (0.2-1.3) mg/dL AST (17-59) IU/L ALT (<50) IU/L Alkaline Phosphatase (38-126) U/L Total Creatine Kinase (55-170) U/L CK-MB (CK-2) (<2.37) ng/mL CK-MB (CK-2) Rel Index (1.5-5.0) % Troponin I (0.01-0.034) ng/mL Total Protein (6.3-8.2) g/dL Albumin (3.5-5.0) g/dL Globulin (1.7-4.1) g/dL Albumin/Globulin Ratio (1.0-2.8) Lipase (23-300) U/L Urine Color Yellow Urine Appearance Clear Urine pH 7.0 (4.5-8.0) Ur Specific [place] 1.015 (1.000-1.035) Urine Protein 3+ H (Negative) Urine Glucose (UA) Trace H (Negative) g/dL Urine Ketones 2+ H (NEGATIVE) Urine Occult Blood 2+ H (Negative) Urine Nitrate Negative (Negative) Urine Bilirubin Negative (NEGATIVE) Urine Urobilinogen 0.2 (0.2) E.U./dL Ur Leukocyte Esterase Negative (NEGATIVE) Urine RBC 1-5/hpf (0-5/HPF) Urine WBC 0-1/hpf (0-5/HPF) Ur Squamous Epith Cells 0-1 /hpf (0-5/HPF) Urine Bacteria None seen (None) Ur Culture Indicated? Cult not indicated U Opiates 300ng/mL cut Negative (Negative) Ur Oxycodone Screen Negative (Negative) Urine Methadone Screen Negative (Negative) Ur Barbiturates Screen Negative (Negative) U Tricyclic Antidepress Negative (Negative) Ur Phencyclidine Scrn Negative (Negative) Ur Amphetamines Screen Negative (Negative) U Methamphetamines Scrn Negative (Negative) Ur MDMA Scrn (Ecstasy) Negative (Negative) U Benzodiazepines Scrn Negative (Negative) Urine Cocaine Screen Negative (Negative) U Marijuana (THC) Screen Positive H (Negative) SARS-CoV-2 (PCR) (Negative) 05/13/21 05/13/21 05/13/21 Range/Units 16:18 17:20 17:20 WBC (4.5-11.0) X10^3/uL RBC (4.5-5.9) X10^6/uL Hgb (13.5-17.5) g/dL Hct (41-53) % MCV (80-100) fL MCH (26-34) PG MCHC (30-36) % RDW (11.6-14.8) % Plt Count (150-400) X10^3/uL Neut % (Auto) (50-75) % Lymph % (Auto) (25-40) % [place] % (Auto) (3-14) % Eos % (Auto) (2-4) % Baso % (Auto) (0-2) % Neut # (Auto) (8242-1664) /uL Lymph # (Auto) (8658-6064) /uL [place] # (Auto) (0-900) /uL Eos # (Auto) (0-450) /uL Baso # (Auto) (0-100) /uL APTT (26.4-36.2) SECONDS Sodium (137-145) mmol/L Potassium (3.4-5.1) mmol/L Chloride (98-107) mmol/L Carbon Dioxide (22-32) mmol/L BUN (9-20) mg/dL Creatinine (0.66-1.25) mg/dL Estimated GFR (>60) mL/min BUN/Creatinine Ratio (6-22) Glucose (80-110) mg/dL Lactate (0.7-2.1) mmol/L Calcium (8.4-10.2) mg/dL Total Bilirubin (0.2-1.3) mg/dL AST (17-59) IU/L ALT (<50) IU/L Alkaline Phosphatase (38-126) U/L Total Creatine Kinase (55-170) U/L CK-MB (CK-2) (<2.37) ng/mL CK-MB (CK-2) Rel Index (1.5-5.0) % Troponin I 0.136 H* (0.01-0.034) ng/mL Total Protein (6.3-8.2) g/dL Albumin (3.5-5.0) g/dL Globulin (1.7-4.1) g/dL Albumin/Globulin Ratio (1.0-2.8) Lipase 122 (23-300) U/L Urine Color Urine Appearance Urine pH (4.5-8.0) Ur Specific [place] (1.000-1.035) Urine Protein (Negative) Urine Glucose (UA) (Negative) g/dL Urine Ketones (NEGATIVE) Urine Occult Blood (Negative) Urine Nitrate (Negative) Urine Bilirubin (NEGATIVE) Urine Urobilinogen (0.2) E.U./dL Ur Leukocyte Esterase (NEGATIVE) Urine RBC (0-5/HPF) Urine WBC (0-5/HPF) Ur Squamous Epith Cells (0-5/HPF) Urine Bacteria (None) Ur Culture Indicated? U Opiates 300ng/mL cut (Negative) Ur Oxycodone Screen (Negative) Urine Methadone Screen (Negative) Ur Barbiturates Screen (Negative) U Tricyclic Antidepress (Negative) Ur Phencyclidine Scrn (Negative) Ur Amphetamines Screen (Negative) U Methamphetamines Scrn (Negative) Ur MDMA Scrn (Ecstasy) (Negative) U Benzodiazepines Scrn (Negative) Urine Cocaine Screen (Negative) U Marijuana (THC) Screen (Negative) SARS-CoV-2 (PCR) Negative (Negative) 05/13/21 05/13/21 05/13/21 Range/Units 17:20 22:15 22:15 WBC (4.5-11.0) X10^3/uL RBC (4.5-5.9) X10^6/uL Hgb 15.2 (13.5-17.5) g/dL Hct 44.7 (41-53) % MCV (80-100) fL MCH (26-34) PG MCHC (30-36) % RDW (11.6-14.8) % Plt Count (150-400) X10^3/uL Neut % (Auto) (50-75) % Lymph % (Auto) (25-40) % [place] % (Auto) (3-14) % Eos % (Auto) (2-4) % Baso % (Auto) (0-2) % Neut # (Auto) (1827-2938) /uL Lymph # (Auto) (4137-2949) /uL [place] # (Auto) (0-900) /uL Eos # (Auto) (0-450) /uL Baso # (Auto) (0-100) /uL APTT (26.4-36.2) SECONDS Sodium (137-145) mmol/L Potassium (3.4-5.1) mmol/L Chloride (98-107) mmol/L Carbon Dioxide (22-32) mmol/L BUN (9-20) mg/dL Creatinine (0.66-1.25) mg/dL Estimated GFR (>60) mL/min BUN/Creatinine Ratio (6-22) Glucose (80-110) mg/dL Lactate 2.6 H (0.7-2.1) mmol/L Calcium (8.4-10.2) mg/dL Total Bilirubin (0.2-1.3) mg/dL AST (17-59) IU/L ALT (<50) IU/L Alkaline Phosphatase (38-126) U/L Total Creatine Kinase (55-170) U/L CK-MB (CK-2) (<2.37) ng/mL CK-MB (CK-2) Rel Index (1.5-5.0) % Troponin I 0.569 H* (0.01-0.034) ng/mL Total Protein (6.3-8.2) g/dL Albumin (3.5-5.0) g/dL Globulin (1.7-4.1) g/dL Albumin/Globulin Ratio (1.0-2.8) Lipase (23-300) U/L Urine Color Urine Appearance Urine pH (4.5-8.0) Ur Specific [place] (1.000-1.035) Urine Protein (Negative) Urine Glucose (UA) (Negative) g/dL Urine Ketones (NEGATIVE) Urine Occult Blood (Negative) Urine Nitrate (Negative) Urine Bilirubin (NEGATIVE) Urine Urobilinogen (0.2) E.U./dL Ur Leukocyte Esterase (NEGATIVE) Urine RBC (0-5/HPF) Urine WBC (0-5/HPF) Ur Squamous Epith Cells (0-5/HPF) Urine Bacteria (None) Ur Culture Indicated? U Opiates 300ng/mL cut (Negative) Ur Oxycodone Screen (Negative) Urine Methadone Screen (Negative) Ur Barbiturates Screen (Negative) U Tricyclic Antidepress (Negative) Ur Phencyclidine Scrn (Negative) Ur Amphetamines Screen (Negative) U Methamphetamines Scrn (Negative) Ur MDMA Scrn (Ecstasy) (Negative) U Benzodiazepines Scrn (Negative) Urine Cocaine Screen (Negative) U Marijuana (THC) Screen (Negative) SARS-CoV-2 (PCR) (Negative) 05/13/21 05/14/21 05/14/21 Range/Units 23:35 06:05 06:05 WBC (4.5-11.0) X10^3/uL RBC (4.5-5.9) X10^6/uL Hgb 14.8 (13.5-17.5) g/dL Hct 43.5 (41-53) % MCV (80-100) fL MCH (26-34) PG MCHC (30-36) % RDW (11.6-14.8) % Plt Count (150-400) X10^3/uL Neut % (Auto) (50-75) % Lymph % (Auto) (25-40) % [place] % (Auto) (3-14) % Eos % (Auto) (2-4) % Baso % (Auto) (0-2) % Neut # (Auto) (6834-3696) /uL Lymph # (Auto) (0428-5887) /uL [place] # (Auto) (0-900) /uL Eos # (Auto) (0-450) /uL Baso # (Auto) (0-100) /uL APTT 44 H D 43 H (26.4-36.2) SECONDS Sodium (137-145) mmol/L Potassium (3.4-5.1) mmol/L Chloride (98-107) mmol/L Carbon Dioxide (22-32) mmol/L BUN (9-20) mg/dL Creatinine (0.66-1.25) mg/dL Estimated GFR (>60) mL/min BUN/Creatinine Ratio (6-22) Glucose (80-110) mg/dL Lactate (0.7-2.1) mmol/L Calcium (8.4-10.2) mg/dL Total Bilirubin (0.2-1.3) mg/dL AST (17-59) IU/L ALT (<50) IU/L Alkaline Phosphatase (38-126) U/L Total Creatine Kinase (55-170) U/L CK-MB (CK-2) (<2.37) ng/mL CK-MB (CK-2) Rel Index (1.5-5.0) % Troponin I (0.01-0.034) ng/mL Total Protein (6.3-8.2) g/dL Albumin (3.5-5.0) g/dL Globulin (1.7-4.1) g/dL Albumin/Globulin Ratio (1.0-2.8) Lipase (23-300) U/L Urine Color Urine Appearance Urine pH (4.5-8.0) Ur Specific [place] (1.000-1.035) Urine Protein (Negative) Urine Glucose (UA) (Negative) g/dL Urine Ketones (NEGATIVE) Urine Occult Blood (Negative) Urine Nitrate (Negative) Urine Bilirubin (NEGATIVE) Urine Urobilinogen (0.2) E.U./dL Ur Leukocyte Esterase (NEGATIVE) Urine RBC (0-5/HPF) Urine WBC (0-5/HPF) Ur Squamous Epith Cells (0-5/HPF) Urine Bacteria (None) Ur Culture Indicated? U Opiates 300ng/mL cut (Negative) Ur Oxycodone Screen (Negative) Urine Methadone Screen (Negative) Ur Barbiturates Screen (Negative) U Tricyclic Antidepress (Negative) Ur Phencyclidine Scrn (Negative) Ur Amphetamines Screen (Negative) U Methamphetamines Scrn (Negative) Ur MDMA Scrn (Ecstasy) (Negative) U Benzodiazepines Scrn (Negative) Urine Cocaine Screen (Negative) U Marijuana (THC) Screen (Negative) SARS-CoV-2 (PCR) (Negative) 05/14/21 05/14/21 Range/Units 08:10 13:00 WBC (4.5-11.0) X10^3/uL RBC (4.5-5.9) X10^6/uL Hgb (13.5-17.5) g/dL Hct (41-53) % MCV (80-100) fL MCH (26-34) PG MCHC (30-36) % RDW (11.6-14.8) % Plt Count (150-400) X10^3/uL Neut % (Auto) (50-75) % Lymph % (Auto) (25-40) % [place] % (Auto) (3-14) % Eos % (Auto) (2-4) % Baso % (Auto) (0-2) % Neut # (Auto) (5128-9424) /uL Lymph # (Auto) (0482-3588) /uL [place] # (Auto) (0-900) /uL Eos # (Auto) (0-450) /uL Baso # (Auto) (0-100) /uL APTT 45 H (26.4-36.2) SECONDS Sodium (137-145) mmol/L Potassium (3.4-5.1) mmol/L Chloride (98-107) mmol/L Carbon Dioxide (22-32) mmol/L BUN (9-20) mg/dL Creatinine (0.66-1.25) mg/dL Estimated GFR (>60) mL/min BUN/Creatinine Ratio (6-22) Glucose (80-110) mg/dL Lactate (0.7-2.1) mmol/L Calcium (8.4-10.2) mg/dL Total Bilirubin (0.2-1.3) mg/dL AST (17-59) IU/L ALT (<50) IU/L Alkaline Phosphatase (38-126) U/L Total Creatine Kinase (55-170) U/L CK-MB (CK-2) (<2.37) ng/mL CK-MB (CK-2) Rel Index (1.5-5.0) % Troponin I 0.637 H* (0.01-0.034) ng/mL Total Protein (6.3-8.2) g/dL Albumin (3.5-5.0) g/dL Globulin (1.7-4.1) g/dL Albumin/Globulin Ratio (1.0-2.8) Lipase (23-300) U/L Urine Color Urine Appearance Urine pH (4.5-8.0) Ur Specific [place] (1.000-1.035) Urine Protein (Negative) Urine Glucose (UA) (Negative) g/dL Urine Ketones (NEGATIVE) Urine Occult Blood (Negative) Urine Nitrate (Negative) Urine Bilirubin (NEGATIVE) Urine Urobilinogen (0.2) E.U./dL Ur Leukocyte Esterase (NEGATIVE) Urine RBC (0-5/HPF) Urine WBC (0-5/HPF) Ur Squamous Epith Cells (0-5/HPF) Urine Bacteria (None) Ur Culture Indicated? U Opiates 300ng/mL cut (Negative) Ur Oxycodone Screen (Negative) Urine Methadone Screen (Negative) Ur Barbiturates Screen (Negative) U Tricyclic Antidepress (Negative) Ur Phencyclidine Scrn (Negative) Ur Amphetamines Screen (Negative) U Methamphetamines Scrn (Negative) Ur MDMA Scrn (Ecstasy) (Negative) U Benzodiazepines Scrn (Negative) Urine Cocaine Screen (Negative) U Marijuana (THC) Screen (Negative) SARS-CoV-2 (PCR) (Negative) Critical Care Time <Sammi Tony, - Last Filed: 05/14/21 14:24> Critical Care Time Attestation: The high probability of a clinically significant, sudden or life threatening deterioration of the [cardiovascular] system(s) required my full and direct attention, intervention and personal management. The aggregate critical care time was [45] minutes. This time is in addition to time spent performing reported procedures but includes the following: [x] Data Review and interpretation [x] Patient assessment and monitoring of vital signs [x] Documentation [x] Medication orders and management Discharge Plan Departure Patient Disposition: [facility] Clinical Impression: Acute non-ST elevation myocardial infarction (NSTEMI), Hypertensive emergency Prescriptions: No Action oxybutynin chloride 15 mg tablet extended release 24hr See Rx Instructions .ROUTE .COMPLEX Qty: 90 RF: 1 aspirin [Adult Aspirin Regimen] 81 mg tablet,delayed release (DR/EC) 81 mg PO DAILY RF: 0 (DME) Knee high compression stocking See Rx Instructions .Route .MEDSUPPLY Qty: 2 RF: 0 metoprolol succinate 50 mg tablet extended release 24 hr See Rx Instructions .ROUTE .COMPLEX Qty: 180 RF: 2 duloxetine 30 mg capsule,delayed release(DR/EC) See Rx Instructions .ROUTE .COMPLEX Qty: 90 RF: 5 glipizide 5 mg tablet See Rx Instructions .ROUTE .COMPLEX Qty: 90 RF: 0 tamsulosin 0.4 mg capsule See Rx Instructions .ROUTE .COMPLEX Qty: 180 RF: 0 amlodipine 10 mg tablet See Rx Instructions .ROUTE .COMPLEX Qty: 90 RF: 0 isosorbide mononitrate 60 mg tablet extended release 24 hr See Rx Instructions .ROUTE .COMPLEX Qty: 90 RF: 0 gabapentin 600 mg tablet See Rx Instructions .ROUTE .COMPLEX Qty: 540 RF: 0 atorvastatin 20 mg tablet 20 mg PO DAILY RF: 0 oxycodone 10 mg tablet 10 mg PO TID PRN (Reason: pain) Qty: 90 RF: 0 Glucose: Test Strips 1 strip miscellaneous DIRECTED RF: 0 lidocaine 5 % adhesive patch,medicated 1 patch TOP DAILY Qty: 30 RF: 0 amlodipine 10 mg tablet RF: 0 acetaminophen 325 mg Tablet 975 mg PO TID Qty: 40 RF: 0 Referrals: Cesar Bar DO [Primary Care Provider] -
[2021-05-13] MEDS: METOCLOPRAMIDE 10 MG/2 ML INJ IV (15:57)
[2021-05-13] MEDS: SODIUM CHLORIDE 0.9% 1,000 ML 1000 ML IV ×2 (15:57→17:42)
[2021-05-13 16:03] LABS: Alanine Aminotransferase 26 IU/L (<50); Albumin Globulin Ratio 1.3 (1.0-2.8); Alkaline Phosphatase 133 U/L (38-126); Aspartate Aminotransferase 46 IU/L (17-59); BUN Creatinine Ratio 19.7 (6-22); Bilirubin Total 1.4 mg/dL (0.2-1.3); Blood Urea Nitrogen 23 mg/dL (9-20); Calcium 10.5 mg/dL (8.4-10.2); Carbon Dioxide 18 mmol/L (22-32); Chloride 103 mmol/L (98-107); Creatine Kinase 305 U/L (55-170); Estimated Glomerular Filt Rate > 60.0 mL/min (>60); Globulin 3.8 g/dL (1.7-4.1); Glucose 214 mg/dL (80-110); HEMOLYSIS < 15 (0-50); Sodium 138 mmol/L (137-145); Total Protein 8.8 g/dL (6.3-8.2)
[2021-05-13 16:04] LABS: Lactate (Lactic Acid) 2.4 mmol/L (0.7-2.1)
[2021-05-13 16:15] LABS: Troponin I 0.064 ng/mL (0.01-0.034)
[2021-05-13 16:19] LABS: Bacteria Urine None Seen
[2021-05-13 16:21] LABS: Appearance Urine UA CLEAR; Bilirubin Urine UA NEGATIVE (NEGATIVE); Color Urine UA YELLOW; Glucose Urine UA TRACE g/dL (Negative); Ketones Urine UA 2+ (NEGATIVE); Leukocyte Esterase Urine UA NEGATIVE (NEGATIVE); Nitrite Urine UA NEGATIVE (Negative); Occult Blood Urine UA 2+ (Negative); Protein Urine UA 3+ (Negative); Specific Gravity Urine UA 1.015 (1.000-1.035); Urobilinogen Urine UA 0.2 E.U./dL (0.2)
[2021-05-13] MEDS: LABETALOL 20 MG/4 ML SYRINGE 10 MG IV (16:30)
[2021-05-13 16:33] LABS: RBC Urine 1-5/HPF (0-5/HPF); WBC Urine 0-1/HPF (0-5/HPF)
[2021-05-13 16:34] LABS: Culture Indicated Urine Cult Not Indicated; Squamous Epithelial Cell Urine 0-1 /HPF (0-5/HPF); UR Morphine/Opiate cutoff 300 Negative (Negative); Ur Creatinine Normal (Normal); Ur Specific Gravity Normal (Normal); Urine Amphetamines Negative (Negative); Urine Barbiturates Negative (Negative); Urine Benzodiazepines Negative (Negative); Urine Cocaine Negative (Negative); Urine MDMA Negative (Negative); Urine Methadone Negative (Negative); Urine Methamphetamines Negative (Negative); Urine Phencyclidine Negative (Negative); Urine Tetrahydrocannabinol Positive (Negative); Urine Tricyclic Antidepressant Negative (Negative); Urine pH Normal (Normal)
[2021-05-13 16:35] LABS: Urine Oxycodone Negative (Negative)
[2021-05-13 16:54] LABS: CKMB % Relative Index 1.2 % (1.5-5.0); Creatine Kinase MB 3.66 ng/mL (<2.37)
--- NOTE | 2021-05-13 17:01 | DI.US.S_ITS ---
PROCEDURE: US ABDOMEN LIMITED INDICATIONS: RUQ PAIN; VOMITING TECHNIQUE: Real-time focused scanning was performed of the abdomen, with image documentation. COMPARISON: None. FINDINGS: Liver is normal in size and echotexture. The main portal vein is normal in caliber and patent. The gallbladder could not be seen due to bowel gas. The common bile duct measures 7 mm, at the upper limits of normal. The pancreas visualized is normal. IMPRESSION: No acute disease found, source of current symptoms is not identified. Enteritis may explain this appearance. Depending on the clinical status follow-up by CT scanning may become necessary. Dictated by: Uzair Parra M.D. on 05/13/2021 at 18:25 Approved by: Uzair Parra M.D. on 05/13/2021 at 18:57
[2021-05-13] MEDS: HYDROMORPHONE 1 MG INJ IV (17:09)
[2021-05-13 17:18] LABS: Reflexed Lactate in 2 Hours Y
[2021-05-13 17:41] LABS: COVID19 - ADMIT (NP swab/PCR) Negative (Negative)
[2021-05-13 17:41] LABS: Lipase 122 U/L (23-300)
[2021-05-13 17:42] LABS: Lactate 2HR (Lactic Acid Rflx) 2.6 mmol/L (0.7-2.1)
[2021-05-13 17:54] LABS: Troponin I 0.136 ng/mL (0.01-0.034)
[2021-05-13] MEDS: HEPARIN 5,000 UNIT/ML VIAL 4000 UNIT IV (18:07)
[2021-05-13] MEDS: HEPARIN DRIP 25,000 UNIT/500 ML IV.SOLN 18.507 UNIT IV (18:10)
[2021-05-13] MEDS: ASPIRIN 81 MG CHEW TAB 324 MG PO (18:28)
[2021-05-13 18:30] LABS: PTT Partial Thromboplastin Tim 28 SECONDS (26.4-36.2)
[2021-05-13] MEDS: METOPROLOL ER 50 MG TABLET PO (21:30)
[2021-05-13] MEDS: AMLODIPINE 5 MG TABLET 7.5 MG PO (21:30)
[2021-05-13 22:46] LABS: Troponin I 0.569 ng/mL (0.01-0.034)
[2021-05-13] MEDS: NICARDIPINE 25 MG in SODIUM CHLORIDE 0.9% 240 ML 50 ML IV (23:14)
[2021-05-13 23:49] LABS: PTT Partial Thromboplastin Tim 44 SECONDS (26.4-36.2)
[2021-05-13 23:50] LABS: Hematocrit 44.7 % (41-53); Hemoglobin 15.2 g/dL (13.5-17.5)
[2021-05-14] VITALS (88 sets, daily range): BP systolic 112–208; BP diastolic 59–102; PULSE 75–124; RESP 12–43; O2SAT 79–100
--- NOTE | 2021-05-14 04:50 | PC.NURSE ---
Pt needed to get up to the commode 3-4 times to have small BM's. On return to bed, pt was diaphoretic, martinez, SBP 112. Nicardipine stopped. Dr Hooper notified.
[2021-05-14 06:13] LABS: Hematocrit 43.5 % (41-53); Hemoglobin 14.8 g/dL (13.5-17.5)
[2021-05-14 06:19] LABS: PTT Partial Thromboplastin Tim 43 SECONDS (26.4-36.2)
[2021-05-14 08:42] LABS: Troponin I 0.637 ng/mL (0.01-0.034)
[2021-05-14 13:18] LABS: PTT Partial Thromboplastin Tim 45 SECONDS (26.4-36.2)
--- NOTE | 2021-05-14 17:05 | PC.NURSE ---
1405 hours: Heaparin drip stopped for transport of Pt.
== END 2021-05-14 14:05 | disposition short-term general hospital (02) ==
PROVIDERS: Emergency Medicine; Emergency Provider Emergency Medicine; Family Provider Family Medicine; PCP Family Medicine
DX: I21.4 Non-ST elevation (NSTEMI) myocardial infarction (principal); I16.1 Hypertensive emergency; R51.9 Headache, unspecified; R53.1 Weakness; M54.5 Low back pain; R07.9 Chest pain, unspecified; Z20.822 Contact with and (suspected) exposure to COVID-19
CPT/HCPCS: 36415; 51702; 51798; 70450; 71045; 71275; 74174; 76705; 80053; 80305; 81001; 82550; 82553; 83605; 83690; 84484; 85014; 85018; 85025; 85730; 87040; 87635; 93005; 96361; 96365; 96366; 96368; 96375; 99285; 99291; 99292; C9803; J1170; J1644; J2765; Q9967

== ENCOUNTER → 2021-07-01 09:13 | Outpatient (CLI) | payer MEDICARE, OTHER, SELFPAY ==
[2021-04-11 08:55] VITALS: BMI 23.6
[2021-07-01 10:26] LABS: COVID19 -Nasal RAPID Negative (Negative)
== END ==
PROVIDERS: Family Provider Family Medicine; PCP Family Medicine; Referring Provider Physician Assistant; Visit Provider Physician Assistant
DX: Z01.812 Encounter for preprocedural laboratory examination (principal); Z20.822 Contact with and (suspected) exposure to COVID-19
CPT/HCPCS: 87635; C9803

== ENCOUNTER → 2021-07-04 07:40 | Outpatient (CLI) | payer MEDICARE, OTHER, SELFPAY ==
[2021-04-11 08:55] VITALS: BMI 23.6
--- NOTE | 2021-07-04 07:41 | DI.NM.S_ITS ---
PROCEDURE: NM SHAVON PERF SPECT REST & STR Rest and exercise myocardial perfusion SPECT with gated imaging and ejection fraction RADIOPHARMACEUTICAL: 10.7 mCi Tc-99m sestamibi IV at rest and 25.5 mCi Tc-99m sestamibi IV at peak exercise. A one day-protocol was performed. INDICATIONS: Essential (primary) hypertension TECHNIQUE: Radiopharmaceutical was injected at peak stress test, and also at rest. SPECT images were obtained. SPECT myocardial perfusion images were displayed in short axis, horizontal long axis, and vertical long axis views. Gated images were reviewed using [employer] software. COMPARISON: None. CARDIAC STRESS: A standard Curt treadmill exercise tolerance test was performed by the patient under the supervision of an attending staff. The patient exercised for 5 minutes and 47 seconds; functional aerobic impairment (INDER) is +19%. Hemodynamic data: There is normal blood pressure and heart rate response to exercise stress. Patient achieved 92% of maximum predicted heart rate at peak exercise. Symptoms: Patient denied chest pain during exercise. EKG: No diagnostic EKG changes of ischemia; no ectopy. FINDINGS: Raw data: There is good myocardial labeling by radiotracer. No significant motion artifacts. Ndzu-cz-[id number] ratio is 0.29 (normal is less than 0.38 for sestamibi tracer, and less than 0.50 for thallium tracer). Left ventricle function: Gated images demonstrate normal left ventricle wall thickening. No segmental wall motion abnormality. No transient ischemic dilation; TID is 0.8 (normal less than 1.3). The left ventricle resting end-diastolic volume is 163 mL. Left ventricle stress ejection fraction is 75%; normal values are above 45%. Myocardial perfusion: There is a fixed inferior wall defect that resolves with prone imaging, suggesting diaphragmatic attenuation artifact than true prior infarction. No ischemia. IMPRESSION: Low risk, probably normal treadmill nuclear stress test 1) No perfusion evidence of ischemia or infarction. There is a fixed inferior wall defect that resolves with prone imaging, suggesting diaphragmatic attenuation artifact than true prior infarction. No ischemia. 2) Enlarged left ventricle (resting EDV 163cc) with normal wall motion and normal systolic function (EF post stress 75%). 3) No ECG evidence of ischemia. 4) No angina during the study. 5) Mildly reduced exercise capacity (6.5 METs, INDER +19%). 6) No prior nuclear stress test available for comparison. Dictated by: Janis Rico MD on 07/04/2021 at 16:40 Approved by: Janis Rico MD on 07/04/2021 at 16:55
== END ==
PROVIDERS: Family Provider Family Medicine; PCP Family Medicine; Referring Provider Nurse Practitioner; Visit Provider Nurse Practitioner
DX: I10 Essential (primary) hypertension (principal); R42 Dizziness and giddiness; R06.00 Dyspnea, unspecified; E78.5 Hyperlipidemia, unspecified; I35.0 Nonrheumatic aortic (valve) stenosis; R01.1 Cardiac murmur, unspecified
CPT/HCPCS: 78452; 93017; A9502

== ENCOUNTER → 2021-10-18 11:26 | Outpatient (CLI) | payer MEDICARE, OTHER, SELFPAY ==
[2021-04-11 08:55] VITALS: BMI 23.6
[2021-10-18 13:56] LABS: COVID19 -Nasal RAPID Negative (Negative)
== END ==
PROVIDERS: Family Provider Family Medicine; PCP Family Medicine; Visit Provider Physician Assistant
DX: Z20.822 Contact with and (suspected) exposure to COVID-19 (principal)
CPT/HCPCS: 87635; C9803

== ENCOUNTER 2021-10-20 06:35 | Day surgery (SDC) | payer MEDICARE, OTHER, SELFPAY ==
[2021-04-11 08:55] VITALS: BMI 23.6
[2021-10-19 08:22] VITALS: BMI 23.6
[2021-10-20] VITALS (14 sets, daily range): BP systolic 110–137; BP diastolic 53–76; PULSE 56–81; RESP 12–32; TEMP 36.6–37.1; O2SAT 93–98; BMI 23.6
--- NOTE | 2021-10-20 | DI.RAD.S_ITS ---
PROCEDURE: XR ANKLE RT 2V INDICATIONS: RIGHT ANKLE FIXATION TECHNIQUE: 3 operative C-arm views of the ankle were acquired. COMPARISON: [facility], , XR ANKLE RT MIN 3V, 08/23/2020, 8:11. FINDINGS: Bones: Imaging utilized for tibiotalar fusion surgery. Surgical hardware intact with no evidence of complications. Soft tissues: Unremarkable IMPRESSION: Imaging utilized during tibiotalar fusion surgery. Dictated by: Garry Middleton M.D. on 10/20/2021 at 11:54 Approved by: Garry Middleton M.D. on 10/20/2021 at 11:55
[2021-10-20] MEDS: LACTATED RINGERS 1,000 ML 42 ML IV ×2 (06:53→08:32)
--- NOTE | 2021-10-20 07:20 | PM.PREOP ---
Pre-operative Note COVID-19 COVID-19 status: Negative Result date/Date tested (Pos, Neg/Pending): 10/18/21 Interval Note History & Physical reviewed/Exam performed by Physician: Yes Changes to H&P: No
[2021-10-20] MEDS: fentaNYL 100 MCG/2 ML INJ 50 MCG IV (07:37)
[2021-10-20] MEDS: MIDAZOLAM 2 MG/2 ML VIAL IV (07:37)
--- NOTE | 2021-10-20 07:39 | SUR.PREOP ---
Block start time 0739[] . Monitoring initiated and maintained throughout procedure. Oxygen and medications given per anesthesiologist instructions. Patient remained stable throughout procedure, no adverse reactions noted. Block end time [0800].
--- NOTE | 2021-10-20 07:41 | SUR.PREOP ---
Versed and fentanyl given for block placement. See MAR.
[2021-10-20] MEDS: CEFAZOLIN 2 GM/20 ML SYRINGE IV (08:17)
--- NOTE | 2021-10-20 08:23 | SUR.OPER ---
Supine on padded OR bed, head on pillow, arms secured on padded arm boards at <90 degrees abduction, legs uncrossed. Right leg positioned on blankets. and secured in place with cloth tape. rolled blanklet postiioned under patient's right hip. safety belt placed on abdomen.
[2021-10-20] MEDS: BUPIVACAINE 0.25% (PF) 30 ML, EPINEPHrine 0.15 MG INJ (08:28)
--- NOTE | 2021-10-20 09:07 | PM.PROC.1 ---
Procedures Date/Time Date of procedure: 10/20/21 Time of procedure: 07:40 Nerve Block Time out performed: Yes Local anesthetic used: other (0.5% Ropivacaine (20ml) and 2% Lidocaine w/ epi (5ml)) Amount of anesthesia used (mL): 25 Nerve blocks: other (Sciatic Popliteal Block, right) Procedure successful: Yes Patient tolerated procedure: well, no complications and other (IV sedation used: Fentanyl 50mcg and midazolam 1mg) Additional comments: Consent signed. Prone position. Routine monitors and O2 per NC. Ultrasound guidance used to visualize sciatic nerve. Local skin wheal with 1% Lido, 25g needle. 22g 100mm Stimex block needle used. Negative aspiration. Total volume 25ml. Patient tolerated well with minimum sedation. Picture placed in chart. s
--- NOTE | 2021-10-20 11:26 | SUR.PHASEI ---
Patient to PACU with Dr Babcock and Reba Rn after general anesthesia and popliteal block. Pt with oral airway, chin lift by Dr Babcock and oral suctioning done by this RN. Pt with clear lungs. Nasal airway placed orally which patient maintained while sleeping until 1121 when patient awoke and removed own airway. Pt calm, clear lungs, denies pain. Leg elevated and ice applied.
--- NOTE | 2021-10-20 11:35 | SUR.PHASEI ---
SBAR report to Treva BENNETT at bedside.
[2021-10-20] MEDS: ACETAMINOPHEN 325 MG TABLET 975 MG PO (12:44)
--- NOTE | 2021-10-20 12:45 | SUR.PHASEII ---
Patient resting. Denies pain but wanted to stop ordered Tylenol for prevention.
--- NOTE | 2021-10-20 13:09 | PM.OP.1 ---
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 He has failed conservative treatment and has persistent pain and limited mobility. He also has neuropathy. He has been indicated for an ankle fusion, open approach. Will do anterior approach remove his 2 retained screws from his prior injury. The risks and benefits of the procedure have been discussed with the patient even opportunity to ask questions. The risks of surgery include but are not limited to infection, malunion, nonunion, persistence of pain, damage to nerves and blood vessels, posttraumatic arthritis, DVT, PE, cardiopulmonary complications and . The patient expressed a thorough understanding of the risks and benefits of surgery and has elected to proceed. Consent was signed. He has received medical optimization and cardiology clearance for surgery. He has no history of blood clots. No history of bleeding or coagulation disorders. During the operation, the services of a physician surgical technology instructor were medically indicated and necessary to provide the exposure of the operative site for the surgical procedure and to maintain the limb in a proper position to carry out the operation safely and efficiently. Without a qualified phlebotomist medical lab assistant being present this would extended the operative procedure and made the procedure technically more difficult to perform. Surgeon: Corrina Rowan Grape Grower: Lottie Wright Anesthesia Type: General, Peripheral nerve block and Local (0.25% Marcaine with epinephrine) Operative Notes Findings: End-stage tibiotalar arthritis with eburnated bone and spurring. Two retained large frag distal tibial screws were removed using the 3 5 screwdriver. Closure Type: primary Specimen(s): none sent Prosthetic devices, grafts, tissues, transplants, or devices: [id number] standard anterior ankle fusion plate. 4.2 locking screws in the talus. 4.5 locking and nonlocking screws in the tibia. One 7.0 headed monster screw outside the plate as a lag screw Estimated Blood Loss (mL): 30 Blood products transfused: none Tourniquet time (min): 66 Procedure in detail: Patient was seen in the preoperative area site of surgery was marked informed consent confirmed. Patient underwent a regional block with the anesthesia team for postoperative pain control. Patient was brought back to the operating room by the anesthesia team positioned supine on operative table. All bony prominences well padded. Well-padded thigh tourniquet was placed. An ipsilateral rolled bump was placed. Blankets were stacked under the operative extremity to elevate it for ease of imaging. General anesthetic was administered. The right lower extremities prepped and draped in the standard sterile fashion. A formal time-out procedure was performed confirming the patient's side and site of surgery administration of appropriate preoperative antibiotics which is 2 g of Ancef. All were in agreement. Implants were in the room accounted for. There was an old anterior incision over the ankle this curved medially at the ankle joint. The standard anterior ankle incision was marked out just lateral to the tibial crest bisecting the medial and lateral malleoli. This incorporated proximal part of the previous scar and a deviated distally in order to facilitate exposure to the level of the talonavicular joint. Esmarch was used for exsanguination the tourniquet raised on the thigh to 250 mmHg. Skin incision was made with a 15 blade. This was taken down through the skin. Care was taken with dissection subcutaneously to protect the superficial peroneal nerve. The retinaculum was opened over the EHL. The EHL was retracted laterally and the tibialis anterior within its sheath medially. Neurovascular bundle was retracted laterally with the EHL. There was copious the scar tissue from previous surgery. The distal tibia and previous hardware was exposed using the Bovie cautery. The 2 retained distal tibial screws were removed using the 3.5 hex head screwdriver. The ankle capsule was entered and the joint exposed. This was severely arthritic with eburnation and osteophytes. An osteotome was used to remove the distal edge of the tibia to help with access to the joint. Rongeur was used to remove additional spurs. At this point the ankle joint distractor was placed. Then the series of curette and osteotomes were used to remove any remaining cartilage from the tibiotalar joint and debrided down to subchondral bone. Next the bur was used to further prepare the bone surfaces to bleeding bone. This was also used to remove prominence at the talus to help with plate apposition. Once the joint surface was thoroughly debrided it was irrigated then drilled using the prep step drill. This was further fish-scaled. At this 0.5 cc of demineralized cortical fibers were placed throughout the joint with excellent fill and compression against the tibial and talar surfaces. The joint was reduced and pinned in place provisionally. This was checked on multiplanar intraoperative fluoroscopy for appropriate alignment. Next a anterior versus curved plate was placed along the joint to assess for a good fit. The standard anterior plate was selected. This was provisionally pinned in place. With the guide for a extra-articular lag screw and it was difficult to utilize the locking towers for the tibial screw holes therefore decision was made to drill for the lag screw 1st toe pin was placed through the posterior wire of the guide this was confirmed across the tibia and into the talus. This was then countersunk drilled and measured for a 65 partially threaded 7.0 headed screw. This was placed across the joint before final tightening the provisional K-wires were removed creating good compression. Next attention was returned to the plate and the guide for the lag screw removed providing access to the talar holes. Talar locking screws were placed 1st into the body of the talus and then into the neck with 4.2 screws. This provided excellent fixation. It was noted that during the screw placement the tourniquet became venous. This was let down and re-exsanguinated and inflated but became venous once again so was let down for the remainder of the case after 66 minutes. A nonlocking screw was placed in the oblong hole of the plate in the tibia this was a 4.5 screw. The remainder of the holes were filled with a locking 4.5 screws in the standard fashion. Final x-rays AP mortise and lateral were taken confirming appropriate alignment compression and screw length. The wound was irrigated. The capsule and retinaculum were closed with 2-0 Vicryl suture. Subcutaneous with 4-0 Monocryl and 3-0 nylon in the skin. Additional local anesthetic was infiltrated. Dressing was placed with Xeroform gauze Webril bulky Moreno dressing ABD pad and a posterior and U splint. Patient was woken from anesthesia and taken to recovery room in good condition. There no immediate complications from this procedure. All counts were correct. Complications: none Post-operative Condition: stable Disposition: PACU Plan for aftercare: Nonweightbearing or touchdown for balance 8 weeks. Elevate above the heart level as much as possible 1st 2 weeks to reduce swelling and help with incision healing. Will have oxycodone for pain control and Zofran for anti nausea. Will continue home gabapentin. Will utilize aspirin 325 mg b.i.d. for DVT prophylaxis. Follow-up in 2 weeks
== END 2021-10-20 13:44 | disposition home or self-care (01) ==
LOC: OR 06:37 → AC 06:39
PROVIDERS: Family Provider Family Medicine; PCP Family Medicine; Referring Provider Family Medicine; Visit Provider Orthopaedic Surgery Foot and Ankle Surgery
PROC: (CPT 27870; principal; 2021-10-20 07:45)
DX: M19.171 Post-traumatic osteoarthritis, right ankle and foot (principal); M25.771 Osteophyte, right ankle; E11.9 Type 2 diabetes mellitus without complications; Z79.84 Long term (current) use of oral hypoglycemic drugs; G62.9 Polyneuropathy, unspecified; I25.10 Atherosclerotic heart disease of native coronary artery without angina pectoris; F41.9 Anxiety disorder, unspecified; F32.9 Major depressive disorder, single episode, unspecified
CPT/HCPCS: 27870; 64450; 73600; 76000; J0171; J0690; J2250; J2405; J2704; J3010

== ENCOUNTER 2021-12-26 16:40 | Inpatient (IN) | payer MEDICARE, OTHER, SELFPAY ==
[2021-04-11 08:55] VITALS: BMI 23.6
[2021-12-26] VITALS (47 sets, daily range): BP systolic 139–259; BP diastolic 62–143; PULSE 90–124; RESP 10–40; TEMP 36.9–37.7; O2SAT 95–99; BMI 23.7; BMI 22.4
--- NOTE | 2021-12-26 16:42 | DI.RAD.S_ITS ---
PROCEDURE: XR ABDOMEN 1V INDICATIONS: severe abdominal pain, N/V TECHNIQUE: One view of the abdomen acquired. COMPARISON: [facility], , ABDOMEN 2 VIEW, 02/03/2018, 10:50. FINDINGS: Surgical changes and devices: Postsurgical changes are seen in the lumbar spine. Cholecystectomy clips are present. Bowel: The colon is mildly distended with air and stool. No dilated small bowel loops are seen. Soft tissues: No suspicious abdominal calcifications. Visualized solid organ contours appear normal in size. Bones: No suspicious bony lesions. IMPRESSION: Moderate colonic stool and colonic gas. No signs of small bowel obstruction. Dictated by: Severiano Guerrero M.D. on 12/26/2021 at 17:05 Approved by: Severiano Guerrero M.D. on 12/26/2021 at 17:07
--- NOTE | 2021-12-26 16:43 | DI.RAD.S_ITS ---
PROCEDURE: XR CHEST 1V INDICATIONS: chest / abdominal pain TECHNIQUE: One view of the chest was acquired. COMPARISON: [facility], CR, XR CHEST 1V, 05/13/2021, 15:10. FINDINGS: Surgical changes and devices: Cervical and lumbar spinal fixation hardware are partially imaged. Lungs and pleura: Lungs are clear. No pleural effusions or pneumothorax. Mediastinum: Mediastinal contours appear normal. Heart size is normal. Moderate aortic atherosclerotic calcifications. Bones and chest wall: No suspicious bony lesions. Overlying soft tissues appear unremarkable. No free air is seen into the diaphragm. IMPRESSION: No acute cardiopulmonary abnormality. Dictated by: Severiano Guerrero M.D. on 12/26/2021 at 17:04 Approved by: Severiano Guerrero M.D. on 12/26/2021 at 17:05
--- NOTE | 2021-12-26 16:54 | ED.NAVMDI ---
HPI - Nausea/Vomiting/Diarrhea General Chief complaint: Hypertension Stated complaint: Abd pain & SOB Time Seen by Provider: 12/26/21 16:42 History of Present Illness HPI Narrative: 71-year-old male former smoker with extensive cardiac history including a recent NSTEMI in May, hypertension, hyperlipidemia presents with relatively sudden onset of generalized abdominal pain nausea vomiting that is been gradually worsening since about noon. He denies any obvious provocation or palliation. Denies any chest pain it is not dizzy nor weak or lightheaded. He states that he has not had access to his medications in about 6 weeks due to insurance issues. He denies any headache or blurred vision. He denies chest pain or shortness of breath. He denies any fever or chills. EMS was activated and had given some Zofran and Phenergan and route with little success. On arrival his blood pressures in the 250s over 130s while actively vomiting. Related Data Home Medications Medication Instructions Recorded Confirmed acetaminophen 325 mg capsule 975 mg PO TID PRN 12/26/21 12/26/21 (Tylenol) duloxetine 30 mg capsule,delayed 30 mg PO BID 12/26/21 12/26/21 release isosorbide mononitrate 60 mg 60 mg PO DAILY 12/26/21 12/26/21 tablet,extended release 24 hr Previous Rx's Medication Instructions Recorded aspirin 81 mg tablet,delayed 81 mg PO DAILY #90 tab 11/29/21 release amlodipine 10 mg tablet See Rx Instructions .ROUTE 12/26/21 .COMPLEX #90 tab atorvastatin 20 mg tablet 20 mg PO DAILY #90 tab 12/26/21 gabapentin 600 mg tablet See Rx Instructions .ROUTE 12/26/21 .COMPLEX #540 tab glipizide 5 mg tablet See Rx Instructions .ROUTE 12/26/21 .COMPLEX #90 tab metoprolol succinate 50 mg See Rx Instructions .ROUTE 12/26/21 tablet,extended release 24 hr .COMPLEX #180 tab tamsulosin 0.4 mg capsule See Rx Instructions .ROUTE 12/26/21 .COMPLEX #180 cap Allergies Allergy/AdvReac Type Severity Reaction Status Date / Time latex Allergy Mild RASH/ITCH Verified 12/14/21 13:43 (tape) pollen extracts Allergy Mild SINUS AND Verified 12/14/21 13:43 [POLLEN EXTRACTS] CHEST CONGESTION adhesive tape [ADHESIVE TAPE] AdvReac Unknown ITCHY Verified 12/14/21 13:43 Review of Systems Review of Systems Narrative: GENERAL: Denies chills, fatigue, malaise, fever, sweats. HEENT: Denies sinus pain, ear pain, sore throat, difficulty swallowing, dizziness. RESPIRATORY: Denies dyspnea, cough, wheezing, hemoptysis, sputum. CARDIOVASCULAR: See HPI GASTROINTESTINAL: See HPI : Denies dysuria, frequency, incontinence, hematuria, urinary retention. MUSCULOSKELETAL: denies weakness, joint pain, or bony pain SKIN: Denies rash, skin lesions, or other NEUROLOGIC: Denies weakness, headache, numbness, change in speech, confusion, seizures, incoordination. PSYCHIATRIC: No concerning psychosocial issues. 12 point review of systems is negative except for those stated above Patient History Medical History Acute ankle pain Ankle fracture Anxiety (Unknown) Aortic stenosis Ascending aorta dilatation Bilateral carotid artery disease (~09/2018) Bilateral carpal tunnel syndrome BPH (benign prostatic hyperplasia) (Unknown) BPH w urinary obs/LUTS Cervical somatic dysfunction Chest pressure Chronic back pain Chronic kidney disease Chronic pain of right ankle Chronic pain syndrome (Unknown) Chronic renal insufficiency (Unknown) Coronary artery disease (Unknown) Cranial somatic dysfunction Depression (Unknown) Diabetes (Unknown) Diabetic neuropathy associated with type 2 diabetes mellitus Dyspnea on exertion Enlarged prostate Erectile dysfunction Erectile dysfunction GERD (gastroesophageal reflux disease) (Unknown) History of ETOH abuse (Unknown) Hyperlipemia (Unknown) Hypertension (Unknown) Hypertensive crisis Leg cramps, sleep related Low back pain (Unknown) Lumbar back pain with radiculopathy affecting right lower extremity Nonallopathic lesion of lumbar region, not elsewhere classified Pain in knee region after replacement of knee joint Pancreatitis Pancreatitis, acute Pelvic somatic dysfunction Peripheral neuropathy (Unknown) Plantar fasciitis of left foot Rheumatoid arthritis (Unknown) Rheumatoid arthritis Right ankle swelling Sacral region somatic dysfunction Salivary gland swelling Seasonal allergic rhinitis Segmental and somatic dysfunction of abdomen and other regions Segmental and somatic dysfunction of rib cage Seroma after procedure Sleep initiation dysfunction Somatic dysfunction of lower extremity Stiff neck Thoracic region somatic dysfunction Trigger finger, left ring finger Trigger finger, right ring finger Upper extremity somatic dysfunction Urine retention Surgical History History of back surgery (~2012) History of lumbar spinal fusion (01/06/20) History of surgery History of surgical removal of skin lesion Hx of cholecystectomy S/P cervical spinal fusion Status post hernia repair Status post knee surgery Vasectomy status Family History Mother Stroke Father Cancer Social History household members: none Smoking Status: Former smoker alcohol intake: current Smoking Status: Former smoker alcohol intake frequency: holidays/special occasions only Alcohol type: beer and wine Substance Use Type: marijuana Exam Narrative Exam Narrative: GENERAL: [71 year old patient appears stated age. Well-developed patient, in obvious distress, complaining of pain, actively vomiting into emesis bag HEAD: Atraumatic. Normocephalic. EYES: Pupils equal round and reactive. Extraocular motions intact. No scleral icterus. No injection or drainage. ENT: Nose without bleeding, purulent drainage. Throat without erythema, tonsillar hypertrophy or exudate. Airway patent. NECK: Trachea midline. Non tender CARDIOVASCULAR: Regular rate and rhythm without murmurs, gallops, or rubs. RESPIRATORY: Clear to auscultation. Breath sounds equal bilaterally. No wheezes, rales, or rhonchi. GASTROINTESTINAL: Abdomen soft, generalized and, nondistended. EXTREMITIES: No edema or joint tenderness. BACK: Nontender without deformity or crepitance. No flank tenderness. NEURO: AOx3. SKIN: No rash or erythema of visible areas Initial Vital Signs Initial Vital Signs: Vital Signs Blood Pressure 248/123 H 12/26/21 16:48 Course Orders Ordered: Amlodipine Besylate (Amlodipine 5 Mg Tablet) 10 mg PO DAILY [facility] Last Admin: 12/27/21 11:00 Dose: 10 mg Documented by: MARIO ALBERTOTO Aspirin (Aspirin Ec 81 Mg Tablet) 81 mg PO DAILY [facility] Last Admin: 12/27/21 11:00 Dose: 81 mg Documented by: HORTENCIA Atorvastatin Calcium (Atorvastatin 20 Mg Tablet) 20 mg PO DAILY [facility] Last Admin: 12/27/21 10:59 Dose: 20 mg Documented by: HORTENCIA Duloxetine HCl (Duloxetine 30 Mg Capsule) 30 mg PO BID [facility] Last Admin: 12/27/21 11:01 Dose: 30 mg Documented by: Admin: 12/26/21 22:16 Dose: 30 mg Documented by: TIM Enoxaparin Sodium (Enoxaparin 40 Mg/0.4 Ml Syringe) 40 mg SUBCUT DAILY [facility] Last Admin: 12/27/21 10:56 Dose: 40 mg Documented by: HORTENCIA Gabapentin (Gabapentin 600 Mg Tablet) 600 mg PO TID [facility] Last Admin: 12/27/21 14:32 Dose: 600 mg Documented by: Admin: 12/27/21 11:00 Dose: 600 mg Documented by: Admin: 12/26/21 22:15 Dose: 600 mg Documented by: TIM Insulin Human Lispro (Insulin Lispro 100 Unit/Ml 3ml Vial) 0 unit SUBCUT ACHS [facility]; Protocol Last Admin: 12/27/21 17:13 Dose: 1 unit Documented by: MARYJANE Cosigned by: LOC Admin: 12/27/21 12:32 Dose: Not Given Documented by: Admin: 12/27/21 10:33 Dose: Not Given Documented by: Admin: 12/26/21 22:15 Dose: Not Given Documented by: TIM Isosorbide Mononitrate (Isosorbide Mononitrate Er 30 Mg Tablet) 60 mg PO DAILY [facility] Last Admin: 12/27/21 10:58 Dose: 60 mg Documented by: HORTENCIA Metoclopramide HCl (Metoclopramide 10 Mg/2 Ml Inj) 10 mg IV Q6HR PRN PRN Reason: Nausea And Vomiting Metoprolol Succinate (Metoprolol Er 50 Mg Tablet) 50 mg PO BID [facility] Last Admin: 12/27/21 10:58 Dose: 50 mg Documented by: Admin: 12/26/21 23:47 Dose: 50 mg Documented by: TIM Naloxone HCl (Naloxone 0.4 Mg/Ml Vial) 0.2 mg IV Q2MIN PRN PRN Reason: Opiate Reversal Oxycodone HCl (Oxycodone Ir 10 Mg Tablet) 10 mg PO Q4HR PRN PRN Reason: Pain, Severe (7-10) Last Admin: 12/27/21 18:34 Dose: 10 mg Documented by: Admin: 12/27/21 11:01 Dose: 10 mg Documented by: Admin: 12/26/21 22:23 Dose: 10 mg Documented by: TIM Pantoprazole Sodium (Pantoprazole 40 Mg Vial) 40 mg IV DAILY [facility] Last Admin: 12/27/21 11:06 Dose: 40 mg Documented by: HORTNECIA Tamsulosin HCl (Tamsulosin 0.4 Mg Capsule) 0.4 mg PO BEDTIME [facility] Last Admin: 12/26/21 23:48 Dose: 0.4 mg Documented by: TIM Discontinued Medications Amlodipine Besylate (Amlodipine 5 Mg Tablet) 10 mg PO NOW ONE Stop: 12/26/21 18:20 Last Admin: 12/26/21 18:45 Dose: 10 mg Documented by: SANDOVAL Amlodipine Besylate (Amlodipine 5 Mg Tablet) 10 mg PO DAILY [facility] Dextrose (Dextrose 50 % In Water 25 Gm/50 Ml Syringe) 25 gm IV PRN PRN PRN Reason: Hypoglycemia Sodium Chloride (Normal Saline 0.9%) 1,000 mls @ 150 mls/hr IV CONT [facility] Last Infusion: 12/26/21 19:26 Dose: 0 mls/hr Documented by: Admin: 12/26/21 17:05 Dose: 150 mls/hr Documented by: SANDOVAL Nicardipine HCl 25 mg/ Sodium (Chloride) 250 mls @ 50 mls/hr IV TITRATE [facility]; Protocol Last Titration: 12/27/21 12:33 Dose: 0 mg/hr, 0 mls/hr Documented by: Titration: 12/27/21 00:06 Dose: 0 mg/hr, 0 mls/hr Documented by: Titration: 12/26/21 22:06 Dose: 5 mg/hr, 50 mls/hr Documented by: Admin: 12/26/21 21:20 Dose: 5 mg/hr, 50 mls/hr Documented by: Titration: 12/26/21 21:20 Dose: 5 mg/hr, 50 mls/hr Documented by: Titration: 12/26/21 19:23 Dose: 5 mg/hr, 50 mls/hr Documented by: Titration: 12/26/21 17:35 Dose: 7.5 mg/hr, 75 mls/hr Documented by: Admin: 12/26/21 17:15 Dose: 5 mg/hr, 50 mls/hr Documented by: SANDOVAL Sodium Chloride (Normal Saline 0.9%) 1,000 mls @ 100 mls/hr IV CONT [facility] Last Admin: 12/27/21 10:56 Dose: 100 mls/hr Documented by: Infusion: 12/27/21 08:21 Dose: 100 mls/hr Documented by: Admin: 12/26/21 22:21 Dose: 100 mls/hr Documented by: TIM Influenza Virus Vaccine (Influenza Hd Vaccine 0.7 Ml Syringe) 0.7 ml IM .ONCE ONE Stop: 12/27/21 09:01 Last Admin: 12/27/21 14:36 Dose: 0.7 ml Documented by: HORTENCIA Labetalol HCl (Labetalol 20 Mg/4 Ml Syringe) 20 mg IV NOW ONE Stop: 12/26/21 16:53 Last Admin: 12/26/21 17:04 Dose: Not Given Documented by: SANDOVAL Ondansetron HCl (Ondansetron 4 Mg/2 Ml Inj) 4 mg IV NOW ONE Stop: 12/26/21 16:46 Last Admin: 12/26/21 17:05 Dose: 4 mg Documented by: SANDOVAL Ondansetron HCl (Ondansetron 4 Mg/2 Ml Inj) 4 mg IV NOW ONE Stop: 12/26/21 20:54 Last Admin: 12/26/21 21:11 Dose: Not Given Documented by: SANDOVAL Ondansetron HCl (Ondansetron 4 Mg/2 Ml Inj) 4 mg IV Q6HR PRN PRN Reason: Nausea And Vomiting Oxycodone HCl (Oxycodone Ir 5 Mg Tablet) 10 mg PO Q4HR PRN PRN Reason: Pain, Severe (7-10) Oxycodone HCl (Oxycodone Ir 10 Mg Tablet) 10 mg PO Q4HR PRN PRN Reason: Pain, Severe (7-10) Vital Signs Vital signs: Vital Signs - 8 hr 12/26/21 16:48 12/26/21 16:49 12/26/21 16:50 Temperature Pulse Rate 100 H 102 H Respiratory Rate 16 20 Blood Pressure 248/123 H Pulse Oximetry 99 99 12/26/21 16:51 12/26/21 16:52 12/26/21 17:00 Temperature 98.4 F Pulse Rate 110 H 95 H 90 Respiratory Rate 22 22 21 Blood Pressure 254/143 H 248/120 H 259/120 H Pulse Oximetry 98 97 98 12/26/21 17:10 12/26/21 17:13 12/26/21 17:18 Temperature Pulse Rate 102 H 95 H 100 H Respiratory Rate 25 H 25 H 29 H Blood Pressure 253/116 H 235/109 H Pulse Oximetry 96 96 96 12/26/21 17:20 12/26/21 17:30 12/26/21 17:31 Temperature Pulse Rate 101 H 109 H 108 H Respiratory Rate 24 36 H 24 Blood Pressure 216/98 H 207/93 H Pulse Oximetry 97 98 99 12/26/21 17:40 12/26/21 17:49 12/26/21 17:50 Temperature Pulse Rate 104 H 106 H 108 H Respiratory Rate 21 34 H 30 H Blood Pressure 212/100 H 193/92 H 185/84 H Pulse Oximetry 95 97 98 12/26/21 18:00 12/26/21 18:10 12/26/21 18:20 Temperature Pulse Rate 104 H 116 H 110 H Respiratory Rate 25 H 38 H 22 Blood Pressure 185/90 H 177/88 H 185/85 H Pulse Oximetry 96 97 97 12/26/21 18:30 12/26/21 18:40 12/26/21 18:41 Temperature Pulse Rate 111 H 114 H 116 H Respiratory Rate 34 H 38 H Blood Pressure 208/80 H 170/77 H Pulse Oximetry 97 12/26/21 18:50 Temperature Pulse Rate 113 H Respiratory Rate 23 Blood Pressure 153/71 H Pulse Oximetry MDM - Nausea/Vomiting/Diarrhea Lab Data Result diagrams: 12/27/21 05:46 12/27/21 05:46 Labs: Lab Results 12/26/21 12/26/21 12/26/21 Range/Units 16:30 16:45 17:16 WBC (4.5-11.0) X10^3/uL RBC (4.5-5.9) X10^6/uL Hgb (13.5-17.5) g/dL Hct (41-53) % MCV (80-100) fL MCH (26-34) PG MCHC (30-36) % RDW (11.6-14.8) % Plt Count (150-400) X10^3/uL Neut % (Auto) (50-75) % Lymph % (Auto) (25-40) % Wolfe % (Auto) (3-14) % Eos % (Auto) (2-4) % Baso % (Auto) (0-2) % Neut # (Auto) (2640-6800) /uL Lymph # (Auto) (9817-6416) /uL Wolfe # (Auto) (0-900) /uL Eos # (Auto) (0-450) /uL Baso # (Auto) (0-100) /uL PT 11.7 (10.1-12.7) SECONDS INR 1.0 (0.9-1.3) Sodium (137-145) mmol/L Potassium (3.4-5.1) mmol/L Chloride (98-107) mmol/L Carbon Dioxide (22-32) mmol/L BUN (9-20) mg/dL Creatinine (0.66-1.25) mg/dL Estimated GFR (>60) mL/min BUN/Creatinine Ratio (6-22) Glucose (80-110) mg/dL Hemoglobin A1c (4.0-6.0) % Calcium (8.4-10.2) mg/dL Total Bilirubin (0.2-1.3) mg/dL AST (17-59) IU/L ALT (<50) IU/L Alkaline Phosphatase (38-126) U/L Total Creatine Kinase (55-170) U/L CK-MB (CK-2) (<2.37) ng/mL CK-MB (CK-2) Rel Index (1.5-5.0) % Troponin I (0.01-0.034) ng/mL NT-Pro-B Natriuret Pep 870 H (<125) pg/mL Total Protein (6.3-8.2) g/dL Albumin (3.5-5.0) g/dL Globulin (1.7-4.1) g/dL Albumin/Globulin Ratio (1.0-2.8) Lipase (23-300) U/L TSH (0.47-4.68) uIU/mL SARS-CoV-2 (PCR) Negative (Negative) 12/26/21 12/26/21 12/26/21 Range/Units 17:16 17:16 17:16 WBC 6.8 (4.5-11.0) X10^3/uL RBC 3.94 L (4.5-5.9) X10^6/uL Hgb 12.7 L (13.5-17.5) g/dL Hct 36.9 L (41-53) % MCV 93.6 (80-100) fL MCH 32.2 (26-34) PG MCHC 34.4 (30-36) % RDW 14.3 (11.6-14.8) % Plt Count 193 (150-400) X10^3/uL Neut % (Auto) 65.6 (50-75) % Lymph % (Auto) 28.0 (25-40) % Wolfe % (Auto) 5.8 (3-14) % Eos % (Auto) 0.4 L (2-4) % Baso % (Auto) 0.2 (0-2) % Neut # (Auto) 4500 (1202-2374) /uL Lymph # (Auto) 1900 (2753-0553) /uL Wolfe # (Auto) 400 (0-900) /uL Eos # (Auto) 0 (0-450) /uL Baso # (Auto) 0 (0-100) /uL PT (10.1-12.7) SECONDS INR (0.9-1.3) Sodium 137 (137-145) mmol/L Potassium 4.2 (3.4-5.1) mmol/L Chloride 103 (98-107) mmol/L Carbon Dioxide 25 (22-32) mmol/L BUN 22 H (9-20) mg/dL Creatinine 1.16 (0.66-1.25) mg/dL Estimated GFR > 60.0 (>60) mL/min BUN/Creatinine Ratio 19.0 (6-22) Glucose 156 H (80-110) mg/dL Hemoglobin A1c (4.0-6.0) % Calcium 9.0 (8.4-10.2) mg/dL Total Bilirubin 1.1 (0.2-1.3) mg/dL AST 46 (17-59) IU/L ALT 20 (<50) IU/L Alkaline Phosphatase 97 (38-126) U/L Total Creatine Kinase 174 H (55-170) U/L CK-MB (CK-2) 2.94 H (<2.37) ng/mL CK-MB (CK-2) Rel Index 1.7 (1.5-5.0) % Troponin I 0.027 (0.01-0.034) ng/mL NT-Pro-B Natriuret Pep (<125) pg/mL Total Protein 7.9 (6.3-8.2) g/dL Albumin 4.6 (3.5-5.0) g/dL Globulin 3.3 (1.7-4.1) g/dL Albumin/Globulin Ratio 1.4 (1.0-2.8) Lipase 107 (23-300) U/L TSH 1.89 (0.47-4.68) uIU/mL SARS-CoV-2 (PCR) (Negative) 12/26/21 Range/Units 17:16 WBC (4.5-11.0) X10^3/uL RBC (4.5-5.9) X10^6/uL Hgb (13.5-17.5) g/dL Hct (41-53) % MCV (80-100) fL MCH (26-34) PG MCHC (30-36) % RDW (11.6-14.8) % Plt Count (150-400) X10^3/uL Neut % (Auto) (50-75) % Lymph % (Auto) (25-40) % Wolfe % (Auto) (3-14) % Eos % (Auto) (2-4) % Baso % (Auto) (0-2) % Neut # (Auto) (4128-4262) /uL Lymph # (Auto) (7323-5098) /uL Wolfe # (Auto) (0-900) /uL Eos # (Auto) (0-450) /uL Baso # (Auto) (0-100) /uL PT (10.1-12.7) SECONDS INR (0.9-1.3) Sodium (137-145) mmol/L Potassium (3.4-5.1) mmol/L Chloride (98-107) mmol/L Carbon Dioxide (22-32) mmol/L BUN (9-20) mg/dL Creatinine (0.66-1.25) mg/dL Estimated GFR (>60) mL/min BUN/Creatinine Ratio (6-22) Glucose (80-110) mg/dL Hemoglobin A1c 5.9 (4.0-6.0) % Calcium (8.4-10.2) mg/dL Total Bilirubin (0.2-1.3) mg/dL AST (17-59) IU/L ALT (<50) IU/L Alkaline Phosphatase (38-126) U/L Total Creatine Kinase (55-170) U/L CK-MB (CK-2) (<2.37) ng/mL CK-MB (CK-2) Rel Index (1.5-5.0) % Troponin I (0.01-0.034) ng/mL NT-Pro-B Natriuret Pep (<125) pg/mL Total Protein (6.3-8.2) g/dL Albumin (3.5-5.0) g/dL Globulin (1.7-4.1) g/dL Albumin/Globulin Ratio (1.0-2.8) Lipase (23-300) U/L TSH (0.47-4.68) uIU/mL SARS-CoV-2 (PCR) (Negative) Point of Care Testing Glucose POC 179 Imaging Data Chest x-ray: Radiologist's Impression: [address] [address] XRay Report Signed Patient: Hector Harper MR#: [id number] : 1950 Acct:[id number] Age/Sex: 71 / M Date of Service: 12/26/21 Loc: ED Accession Number: [id number] ?? Procedure: XR chest 1V Ordering Provider: Jesús Hooper D.O. PROCEDURE:? XR CHEST 1V ? INDICATIONS:? chest / abdominal pain ? TECHNIQUE:? One view of the chest was acquired.? ? COMPARISON:? [facility], CR, XR CHEST 1V, 05/13/2021, 15:10. ? FINDINGS:? ? Surgical changes and devices:? Cervical and lumbar spinal fixation hardware are partially imaged. ? Lungs and pleura:? Lungs are clear.? No pleural effusions or pneumothorax.? ? Mediastinum:? Mediastinal contours appear normal.? Heart size is normal.? Moderate aortic atherosclerotic calcifications. ? Bones and chest wall:? No suspicious bony lesions.? Overlying soft tissues appear unremarkable.? No free air is seen into the diaphragm. ? IMPRESSION:? No acute cardiopulmonary abnormality. ? ? Dictated by: Severiano Guerrero M.D. on 12/26/2021 at 17:04 ? ? Approved by: Severiano Guerrero M.D. on 12/26/2021 at 17:05?? Abdominal x-ray: Radiologist's Impression: Launch?Image [address] [address] XRay Report Signed Patient: Hector Harper MR#: [id number] : 1950 Acct:[id number] Age/Sex: 71 / M Date of Service: 12/26/21 Loc: ED Accession Number: [id number] ?? Procedure: XR abdomen 1V Ordering Provider: Jesús Hooper D.O. PROCEDURE:? XR ABDOMEN 1V ? INDICATIONS:? severe abdominal pain, N/V ? TECHNIQUE:? One view of the abdomen acquired.? ? COMPARISON:? Former[facility], , ABDOMEN 2 VIEW, 02/03/2018, 10:50. ? FINDINGS:? ? Surgical changes and devices:? Postsurgical changes are seen in the lumbar spine.? Cholecystectomy clips are present. ? Bowel:? The colon is mildly distended with air and stool.? No dilated small bowel loops are seen. ? Soft tissues:? No suspicious abdominal calcifications.? Visualized solid organ contours appear normal in size.? ? Bones:? No suspicious bony lesions.? ? IMPRESSION:? Moderate colonic stool and colonic gas.? No signs of small bowel obstruction. ? ? Dictated by: Severiano Guerrreo M.D. on 12/26/2021 at 17:05 ? ? Approved by: Severiano Guerrero M.D. on 12/26/2021 at 17:07 ? MDM Narrative Medical decision making narrative: Patient with severe nausea, vomiting and abdominal pain presents with significantly elevated blood pressure. Labs and imaging have been very reassuring. Symptoms greatly improved with control of his blood pressure. Initially labetalol ordered but none is available due to a national shortage. Given severity of his symptoms and elevated blood pressure nicardipine drip ordered, 1st at 5 then advanced a 7.5 minutes with controlled blood pressure down to the 170s his symptoms have greatly improved and he is resting comfortably. Patient will require admission until he can be stabilized on oral medications and will have access to these meds at home. Discharge Plan Departure Patient Disposition: Admitted As Inpatient Clinical Impression: Hypertensive crisis Admit Date/Time: 12/26/21 20:02 Admit Provider: Gege Ruiz
[2021-12-26] MEDS: SODIUM CHLORIDE 0.9% 1,000 ML 150 ML IV (17:05)
[2021-12-26] MEDS: ONDANSETRON 4 MG/2 ML INJ IV (17:05)
[2021-12-26] MEDS: NICARDIPINE 25 MG in SODIUM CHLORIDE 0.9% 240 ML 50 ML IV ×2 (17:15→21:20)
[2021-12-26 17:25] LABS: NT-proBNP (BNP-Adult 18+) 870 pg/mL (<125)
[2021-12-26 17:29] LABS: Add Manual Diff / Slide Review NO; Basophils Absolute Auto 0 /uL (0-100); Basophils Percent Auto 0.2 % (0-2); Eosinophils Absolute Auto 0 /uL (0-450); Eosinophils Percent Auto 0.4 % (2-4); Hematocrit 36.9 % (41-53); Hemoglobin 12.7 g/dL (13.5-17.5); Lymphocytes Absolute Auto 1900 /uL (1100-4500); Mean Corpuscular HGB Conc 34.4 % (30-36); Mean Corpuscular Hemoglobin 32.2 PG (26-34); Mean Corpuscular Volume 93.6 fL (80-100); Monocytes Absolute Auto 400 /uL (0-900); Monocytes Percent Auto 5.8 % (3-14); Neutrophils Absolute Auto 4500 /uL (1500-7000); Neutrophils Percent Auto 65.6 % (50-75); Platelet Count 193 X10^3/uL (150-400); Red Blood Cell Count 3.94 X10^6/uL (4.5-5.9); Red Cell Distribution Width 14.3 % (11.6-14.8); White Blood Cell Count 6.8 X10^3/uL (4.5-11.0)
[2021-12-26 17:30] LABS: Prothrombin Time 11.7 SECONDS (10.1-12.7)
[2021-12-26 17:39] LABS: Alanine Aminotransferase 20 IU/L (<50); Albumin 4.6 g/dL (3.5-5.0); Albumin Globulin Ratio 1.4 (1.0-2.8); Alkaline Phosphatase 97 U/L (38-126); Aspartate Aminotransferase 46 IU/L (17-59); Bilirubin Total 1.1 mg/dL (0.2-1.3); Blood Urea Nitrogen 22 mg/dL (9-20); Carbon Dioxide 25 mmol/L (22-32); Chloride 103 mmol/L (98-107); Creatine Kinase 174 U/L (55-170); Estimated Glomerular Filt Rate > 60.0 mL/min (>60); Globulin 3.3 g/dL (1.7-4.1); Glucose 156 mg/dL (80-110); HEMOLYSIS 31 (0-50); Lipase 107 U/L (23-300); Potassium 4.2 mmol/L (3.4-5.1); Sodium 137 mmol/L (137-145); Total Protein 7.9 g/dL (6.3-8.2)
[2021-12-26 17:50] LABS: COVID19 -Nasal RAPID Negative (Negative)
[2021-12-26 17:51] LABS: Troponin I 0.027 ng/mL (0.01-0.034)
[2021-12-26 17:55] LABS: CKMB % Relative Index 1.7 % (1.5-5.0); Creatine Kinase MB 2.94 ng/mL (<2.37)
[2021-12-26] MEDS: AMLODIPINE 5 MG TABLET 10 MG PO (18:45)
--- NOTE | 2021-12-26 20:04 | PC.NURSE ---
On arrival pt nauseated and vomiting which started suddenly around noon today. extensive cardiac history with recent NSTEMI in may. BP 240-250/systolic on arrival. was given 324mg ASA and 12.5 phenergan in ambulance. states he has been out of all his meds x 6 weeks due to issues with his medicare however the problem was resolved and the pt had his home meds delivered today shortly before getting sick. He denies CP, SOB. Endorses mild headache and abdominal pain in the epigastric area. AAOx4, NSR-ST w/ HR 95-118. RR equal and unlabored, hypertensive and placed on nicardipine gtt at 5mg/hr with goal of BP under 180/systolic. Also given PO amlodopine per JAN. BP 158/80 at this time. Resting on stretcher attempting to sleep. appears more comfortable. remains on cardiac monitoring. NAD. Awaiting ICU admission.
[2021-12-26 20:48] LABS: Hemoglobin A1C% w Est Avg Glu 5.9 % (4.0-6.0)
[2021-12-26] MEDS: ONDANSETRON 4 MG/2 ML INJ (21:11)
[2021-12-26 21:12] LABS: Thyroid Stimulating Hormone 1.89 uIU/mL (0.47-4.68)
[2021-12-26] MEDS: GABAPENTIN 600 MG TABLET PO (22:15)
[2021-12-26] MEDS: DULOXETINE 30 MG CAPSULE PO (22:16)
[2021-12-26] MEDS: SODIUM CHLORIDE 0.9% 1,000 ML 100 ML IV (22:21)
[2021-12-26] MEDS: OXYCODONE IR 10 MG TABLET PO (22:23)
--- NOTE | 2021-12-26 22:41 | P.HP_ITS ---
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 States has not been eating for 24 hours, endorses having chills and not being able to take in a full breath. He has chronic diabetic neuropathy of both hands and feet. Denies dysurea or changes in bowel habits. He denies any obvious provocation or palliation.? Denies any chest pain, dizziness, weakness or lightheadedness.? He states that he has not had access to his medications in about 6 weeks due to insurance issues.? He denies any headache or blurred vision.? He denies chest pain or shortness of breath.? He denies any fevers.? EMS was activated and had given some Zofran and Phenergan and route with little success.? On arrival to the ED, his blood pressures were in the 250s over 130s while actively vomiting. Chest x-ray and abdominal series were ordered by the emergency department both of which were negative though the abdominal x-ray did indicate air and gas in his colon. Patient has a low-grade fever of 99.2, blood pressure 182/79, heart rate 105, respiratory rate 13, oxygen saturation of 99% on room air he weighs 75 kg with a BMI of 22.4. Is mildly anemic with a hemoglobin of 12.7 and hemato crit of 36.9 glucose is 156 with a hemoglobin A1c of 5.9, proBNP was 870, initial troponin drawn at 5:00 p.m. was within normal limits and the 2nd 1 is pending, TSH is 1.89 and COVID-19 PCR is negative. Patient History Medical History Acute ankle pain Ankle fracture Anxiety (Unknown) Aortic stenosis Ascending aorta dilatation Bilateral carotid artery disease (~09/2018) Bilateral carpal tunnel syndrome BPH (benign prostatic hyperplasia) (Unknown) BPH w urinary obs/LUTS Cervical somatic dysfunction Chest pressure Chronic back pain Chronic kidney disease Chronic pain of right ankle Chronic pain syndrome (Unknown) Chronic renal insufficiency (Unknown) Coronary artery disease (Unknown) Cranial somatic dysfunction Depression (Unknown) Diabetes (Unknown) Diabetic neuropathy associated with type 2 diabetes mellitus Dyspnea on exertion Enlarged prostate Erectile dysfunction Erectile dysfunction GERD (gastroesophageal reflux disease) (Unknown) History of ETOH abuse (Unknown) Hyperlipemia (Unknown) Hypertension (Unknown) Hypertensive crisis Leg cramps, sleep related Low back pain (Unknown) Lumbar back pain with radiculopathy affecting right lower extremity Nonallopathic lesion of lumbar region, not elsewhere classified Pain in knee region after replacement of knee joint Pancreatitis Pancreatitis, acute Pelvic somatic dysfunction Peripheral neuropathy (Unknown) Plantar fasciitis of left foot Rheumatoid arthritis (Unknown) Rheumatoid arthritis Right ankle swelling Sacral region somatic dysfunction Salivary gland swelling Seasonal allergic rhinitis Segmental and somatic dysfunction of abdomen and other regions Segmental and somatic dysfunction of rib cage Seroma after procedure Sleep initiation dysfunction Somatic dysfunction of lower extremity Stiff neck Thoracic region somatic dysfunction Trigger finger, left ring finger Trigger finger, right ring finger Upper extremity somatic dysfunction Urine retention Surgical History History of back surgery (~2012) History of lumbar spinal fusion (01/06/20) History of surgery History of surgical removal of skin lesion Hx of cholecystectomy S/P cervical spinal fusion Status post hernia repair Status post knee surgery Vasectomy status Family & Social History Family History Mother Stroke Father Cancer Social History: household members none Prior Living Arrangements House Safety & Behavioral: Feels Safe in Current Yes Environment Been Physically Hurt or No Threatened By a Person Suicidal Ideation Description None Suicide Plan Description No Plan Tobacco & Substance use: Tobacco type cannabis/marijuana Smoking Status Former smoker alcohol intake current alcohol intake frequency holiday/special occasion Substance Use Type marijuana Meds Home Medications and Allergies Home Medications Medication Instructions Recorded Confirmed Type aspirin 81 mg tablet,delayed 81 mg PO DAILY #90 tab 11/29/21 12/26/21 Rx release acetaminophen 325 mg capsule 975 mg PO TID PRN 12/26/21 12/26/21 History (Tylenol) amlodipine 10 mg tablet See Rx Instructions .ROUTE 12/26/21 12/26/21 Rx .COMPLEX #90 tab atorvastatin 20 mg tablet 20 mg PO DAILY #90 tab 12/26/21 12/26/21 Rx duloxetine 30 mg capsule,delayed 30 mg PO BID 12/26/21 12/26/21 History release gabapentin 600 mg tablet See Rx Instructions .ROUTE 12/26/21 12/26/21 Rx .COMPLEX #540 tab glipizide 5 mg tablet See Rx Instructions .ROUTE 12/26/21 12/26/21 Rx .COMPLEX #90 tab isosorbide mononitrate 60 mg 60 mg PO DAILY 12/26/21 12/26/21 History tablet,extended release 24 hr metoprolol succinate 50 mg See Rx Instructions .ROUTE 12/26/21 12/26/21 Rx tablet,extended release 24 hr .COMPLEX #180 tab tamsulosin 0.4 mg capsule See Rx Instructions .ROUTE 12/26/21 12/26/21 Rx .COMPLEX #180 cap Allergies Allergy/AdvReac Type Severity Reaction Status Date / Time latex Allergy Mild RASH/ITCH Verified 12/14/21 13:43 (tape) pollen extracts Allergy Mild SINUS AND Verified 12/14/21 13:43 [POLLEN EXTRACTS] CHEST CONGESTION adhesive tape [ADHESIVE TAPE] AdvReac Unknown ITCHY Verified 12/14/21 13:43 Review of Systems Review of Systems ROS: Yes All systems reviewed with the patient and are negative except as otherwise documented Exam Vital Signs (past 8 hours): - 12/26/21 16:48 12/26/21 16:49 12/26/21 16:50 Temperature Pulse Rate 100 H 102 H Respiratory Rate 16 20 Blood Pressure 248/123 H Pulse Oximetry 99 99 12/26/21 16:51 12/26/21 16:52 12/26/21 17:00 Temperature 98.4 F Pulse Rate 110 H 95 H 90 Respiratory Rate 22 22 21 Blood Pressure 254/143 H 248/120 H 259/120 H Pulse Oximetry 98 97 98 12/26/21 17:10 12/26/21 17:13 12/26/21 17:18 Temperature Pulse Rate 102 H 95 H 100 H Respiratory Rate 25 H 25 H 29 H Blood Pressure 253/116 H 235/109 H Pulse Oximetry 96 96 96 12/26/21 17:20 12/26/21 17:30 12/26/21 17:31 Temperature Pulse Rate 101 H 109 H 108 H Respiratory Rate 24 36 H 24 Blood Pressure 216/98 H 207/93 H Pulse Oximetry 97 98 99 12/26/21 17:40 12/26/21 17:49 12/26/21 17:50 Temperature Pulse Rate 104 H 106 H 108 H Respiratory Rate 21 34 H 30 H Blood Pressure 212/100 H 193/92 H 185/84 H Pulse Oximetry 95 97 98 12/26/21 18:00 12/26/21 18:10 12/26/21 18:20 Temperature Pulse Rate 104 H 116 H 110 H Respiratory Rate 25 H 38 H 22 Blood Pressure 185/90 H 177/88 H 185/85 H Pulse Oximetry 96 97 97 12/26/21 18:30 12/26/21 18:40 12/26/21 18:41 Temperature Pulse Rate 111 H 114 H 116 H Respiratory Rate 34 H 38 H Blood Pressure 208/80 H 170/77 H Pulse Oximetry 97 12/26/21 18:50 12/26/21 19:00 12/26/21 19:11 Temperature Pulse Rate 113 H 108 H 116 H Respiratory Rate 23 25 H 27 H Blood Pressure 153/71 H 165/72 H 155/81 H Pulse Oximetry 99 96 12/26/21 19:20 12/26/21 19:30 12/26/21 19:51 Temperature Pulse Rate 124 H 108 H 116 H Respiratory Rate 39 H 24 40 H Blood Pressure 146/76 H 186/77 H 149/77 H Pulse Oximetry 97 96 97 12/26/21 20:00 12/26/21 20:10 12/26/21 20:20 Temperature Pulse Rate 109 H 105 H 108 H Respiratory Rate 24 22 21 Blood Pressure 139/62 158/80 H 167/78 H Pulse Oximetry 96 98 97 12/26/21 20:30 12/26/21 20:40 12/26/21 20:50 Temperature Pulse Rate 108 H 115 H 107 H Respiratory Rate 28 H 26 H 15 Blood Pressure 155/87 H 160/77 H 167/79 H Pulse Oximetry 97 99 99 12/26/21 21:00 12/26/21 21:10 12/26/21 21:20 Temperature Pulse Rate 99 H 101 H 106 H Respiratory Rate 19 16 26 H Blood Pressure 174/81 H 164/77 H 162/72 H Pulse Oximetry 95 96 98 12/26/21 21:30 12/26/21 21:40 12/26/21 21:50 Temperature 99.2 F Pulse Rate 102 H 102 H 105 H Respiratory Rate 22 16 17 Blood Pressure 153/69 H 156/70 H 182/79 H Pulse Oximetry 96 95 99 12/26/21 22:00 12/26/21 22:01 Temperature Pulse Rate 106 H 105 H Respiratory Rate 20 13 Blood Pressure 182/79 H Pulse Oximetry 99 99 Oxygen Delivery Method Room Air Narrative Exam Narrative: Gen: Alert, oriented, thin 71 y.o. male, retching and dry heaving HEENT: normocephalic, atraumatic, conjunctiva clear, sclera non-icteric, oral mucosa pink and moist Neck: supple, full ROM, no JVD, trachea is midline Resp: Lungs CTA, non-labored breathing CV: RRR, no murmur or rubs Abd: soft, non-tender, normoactive BTs Skin: no lesions or rashes, dry and intact Neuro: Alert and oriented X 4 w/no focal deficits. Speech clear and coherent. Extremities: moves all 4 extremities, is ambulatory, negative Brice?s sign Psyche: normal mood and affect. Objective Labs Result Diagrams: 12/26/21 17:16 12/26/21 17:16 Labs: Laboratory Results - last 24 hr 12/26/21 12/26/21 12/26/21 16:30 16:45 17:16 WBC RBC Hgb Hct MCV MCH MCHC RDW Plt Count Neut % (Auto) Lymph % (Auto) Fannin % (Auto) Eos % (Auto) Baso % (Auto) Neut # (Auto) Lymph # (Auto) Fannin # (Auto) Eos # (Auto) Baso # (Auto) PT 11.7 INR 1.0 Sodium Potassium Chloride Carbon Dioxide BUN Creatinine Estimated GFR BUN/Creatinine Ratio Glucose Hemoglobin A1c Calcium Total Bilirubin AST ALT Alkaline Phosphatase Total Creatine Kinase CK-MB (CK-2) CK-MB (CK-2) Rel Index Troponin I NT-Pro-B Natriuret Pep 870 H Total Protein Albumin Globulin Albumin/Globulin Ratio Lipase TSH SARS-CoV-2 (PCR) Negative 12/26/21 12/26/21 12/26/21 17:16 17:16 17:16 WBC 6.8 RBC 3.94 L Hgb 12.7 L Hct 36.9 L MCV 93.6 MCH 32.2 MCHC 34.4 RDW 14.3 Plt Count 193 Neut % (Auto) 65.6 Lymph % (Auto) 28.0 Fannin % (Auto) 5.8 Eos % (Auto) 0.4 L Baso % (Auto) 0.2 Neut # (Auto) 4500 Lymph # (Auto) 1900 Fannin # (Auto) 400 Eos # (Auto) 0 Baso # (Auto) 0 PT INR Sodium 137 Potassium 4.2 Chloride 103 Carbon Dioxide 25 BUN 22 H Creatinine 1.16 Estimated GFR > 60.0 BUN/Creatinine Ratio 19.0 Glucose 156 H Hemoglobin A1c Calcium 9.0 Total Bilirubin 1.1 AST 46 ALT 20 Alkaline Phosphatase 97 Total Creatine Kinase 174 H CK-MB (CK-2) 2.94 H CK-MB (CK-2) Rel Index 1.7 Troponin I 0.027 NT-Pro-B Natriuret Pep Total Protein 7.9 Albumin 4.6 Globulin 3.3 Albumin/Globulin Ratio 1.4 Lipase 107 TSH 1.89 SARS-CoV-2 (PCR) 12/26/21 17:16 WBC RBC Hgb Hct MCV MCH MCHC RDW Plt Count Neut % (Auto) Lymph % (Auto) Fannin % (Auto) Eos % (Auto) Baso % (Auto) Neut # (Auto) Lymph # (Auto) Fannin # (Auto) Eos # (Auto) Baso # (Auto) PT INR Sodium Potassium Chloride Carbon Dioxide BUN Creatinine Estimated GFR BUN/Creatinine Ratio Glucose Hemoglobin A1c 5.9 Calcium Total Bilirubin AST ALT Alkaline Phosphatase Total Creatine Kinase CK-MB (CK-2) CK-MB (CK-2) Rel Index Troponin I NT-Pro-B Natriuret Pep Total Protein Albumin Globulin Albumin/Globulin Ratio Lipase TSH SARS-CoV-2 (PCR) Assessment & Plan Assessment & Plan narrative: Hector Harper will be admitted for hypertensive urgency likely secondary to lack of access to his medications. 1. Hypertensive urgency, acute, present on admission * Patient is currently on a nicardipine drip * Home oral high antihypertensives will be provided to the patient tomorrow, including amlodipine 10 mg, metoprolol succinate 50 mg once daily start tonight * 1st troponin was 0.027 and a 2nd one will be drawn and is pending 2. Coronary artery disease, chronic * Patient had a recent STEMI in May of 2021 * Continue home dose of aspirin 81 mg p.o. daily and isosorbide mononitrate 60 mg p.o. daily 3. Nausea and vomiting, acute, present on admission * Given that the patient may have not had access to his normal medications, it is concerning for possible opioid withdrawal * He will receive alternating doses of Reglan and Zofran for nausea and vomiting * Consider contrast CT of the abdomen of no improvement by the am 4. Diabetes type 2 well controlled with an A1c of 5.9 * Low-dose correctional scale insulin * Carb controlled diet * Holding oral medications for now 5. Hyperlipidemia, chronic * Continue home dose of atorvastatin 20 mg p.o. daily * Fasting lipid panel pending 6. Diabetic polyneuropathy, chronic * Continue home dose of duloxetine 30 mg p.o. b.i.d. and gabapentin 600 mg p.o. t.i.d. * Continue home dose of oxycodone 10 mg q.4 hours as needed for severe pain VTE Prophylaxis: Wells risk score 1.5 Enoxaparin 40 mg subQ once daily Patient is admitted to the inpatient ICU service due to the severity of disease, risks of further disease progression and this stay is expected to exceed 2 midnights. FEN: IV fluids: NS at 100 ml/hour, diet: carb controlled diet, labs: CBC, C/BMP, liver enzymes, Mag, PT/INR Clinical Veterinarian: [facility] ICU, care and involvement in the patient?s care is appreciated. Dispo: probable discharge to home Code status: DNR/DNI as discussed with the patient. [X] I have utilized all available immediate resources to obtain, update, or review of the patient's current medications COVID-19 COVID-19 status: Negative Result date/Date tested (Pos, Neg/Pending): 12/26/21 Scores Wells' Criteria for PE Clinical signs and symptoms of DVT: No PE is #1 Dx or equally likely: No Heart rate > 100: Yes Immobilization at least 3 days or surg in previous 4 weeks: No History of PE or DVT: No Hemoptysis: No Malignancy w/Treatment within 6 months or palliative: No Wells' PE Score total: 1.5 Quality VTE Deep Vein Thrombosis/Pulmonary Embolism Present on Admission: No MIPS - Admit I confirm the patient?s Advance Care Plan is present, Code status is documented, Surrogate decision maker is in patient?s record [If Yes, STOP here]: Yes MIPS - DC The patient has current or prior documentation of left ventricular ejection fraction (LVEF) less than 40%, or moderate or severely depressed left ventricular systolic function.: No
[2021-12-26] MEDS: METOPROLOL ER 50 MG TABLET PO (23:47)
[2021-12-26] MEDS: TAMSULOSIN 0.4 MG CAPSULE PO (23:48)
[2021-12-27] VITALS (26 sets, daily range): BP systolic 112–138; BP diastolic 58–76; PULSE 64–115; RESP 15–32; TEMP 36.6–36.9; O2SAT 92–99
--- NOTE | 2021-12-27 06:10 | PC.NURSE ---
Shift Note: Pt admitted with hypertensive crisis on nicardipine drip initially. After first dose of Metoprolol, Nicardipine paused then dc'd at MN. SPB in the 120's and 130s the remainder of the night. Alert and conversant, cooperative with care, denies pain or nausea at this time.
[2021-12-27 06:24] LABS: Add Manual Diff / Slide Review NO; Basophils Absolute Auto 0 /uL (0-100); Basophils Percent Auto 0.3 % (0-2); Eosinophils Absolute Auto 0 /uL (0-450); Eosinophils Percent Auto 0.4 % (2-4); Hematocrit 33.4 % (41-53); Hemoglobin 11.6 g/dL (13.5-17.5); Lymphocytes Absolute Auto 2600 /uL (1100-4500); Lymphocytes Percent Auto 37.5 % (25-40); Mean Corpuscular HGB Conc 34.7 % (30-36); Mean Corpuscular Hemoglobin 32.4 PG (26-34); Mean Corpuscular Volume 93.5 fL (80-100); Monocytes Absolute Auto 600 /uL (0-900); Monocytes Percent Auto 8.1 % (3-14); Neutrophils Absolute Auto 3700 /uL (1500-7000); Neutrophils Percent Auto 53.7 % (50-75); Platelet Count 174 X10^3/uL (150-400); Red Blood Cell Count 3.58 X10^6/uL (4.5-5.9); Red Cell Distribution Width 14.3 % (11.6-14.8)
[2021-12-27 06:36] LABS: Alanine Aminotransferase 21 IU/L (<50); Albumin 3.7 g/dL (3.5-5.0); Albumin Globulin Ratio 1.4 (1.0-2.8); Alkaline Phosphatase 71 U/L (38-126); Aspartate Aminotransferase 38 IU/L (17-59); Bilirubin Total 0.9 mg/dL (0.2-1.3); Bilirubin Unconjugated 0.9 mg/dL (0.0-1.1); Globulin 2.7 g/dL (1.7-4.1); HEMOLYSIS 19 (0-50); Total Protein 6.4 g/dL (6.3-8.2)
[2021-12-27 06:37] LABS: Cholesterol 166 mg/dL (140-199); HDL Cholesterol 67 mg/dL (40-60); LDL Cholesterol Calculated 83 mg/dL (<100); Triglycerides 82 mg/dL (35-150)
[2021-12-27 06:38] LABS: Blood Urea Nitrogen 20 mg/dL (9-20); Calcium 8.3 mg/dL (8.4-10.2); Carbon Dioxide 27 mmol/L (22-32); Chloride 105 mmol/L (98-107); Estimated Glomerular Filt Rate > 60.0 mL/min (>60); Glucose 143 mg/dL (80-110); HEMOLYSIS 19 (0-50); Magnesium 1.9 mg/dL (1.6-2.3); Potassium 4.2 mmol/L (3.4-5.1); Sodium 135 mmol/L (137-145)
[2021-12-27 07:08] LABS: Troponin I 0.057 ng/mL (0.01-0.034)
[2021-12-27] MEDS: ENOXAPARIN 40 MG/0.4 ML SYRINGE SUBCUT (10:56)
[2021-12-27] MEDS: SODIUM CHLORIDE 0.9% 1,000 ML 100 ML IV (10:56)
[2021-12-27] MEDS: METOPROLOL ER 50 MG TABLET PO ×2 (10:58→20:55)
[2021-12-27] MEDS: ISOSORBIDE MONONITRATE ER 30 MG TABLET 60 MG PO (10:58)
[2021-12-27] MEDS: ATORVASTATIN 20 MG TABLET PO (10:59)
[2021-12-27] MEDS: AMLODIPINE 5 MG TABLET 10 MG PO (11:00)
[2021-12-27] MEDS: ASPIRIN EC 81 MG TABLET PO (11:00)
[2021-12-27] MEDS: GABAPENTIN 600 MG TABLET PO ×3 (11:00→20:54)
[2021-12-27] MEDS: OXYCODONE IR 10 MG TABLET PO ×2 (11:01→18:34)
[2021-12-27] MEDS: DULOXETINE 30 MG CAPSULE PO ×2 (11:01→20:55)
[2021-12-27] MEDS: PANTOPRAZOLE 40 MG VIAL IV (11:06)
--- NOTE | 2021-12-27 11:43 | DI.ECHO.S_ITS ---
[facility]---------+ [facility] +---------+ : : [address] : : : : [id number] : : : : Phone: [phone]+ Echocardiogram Report + + :Name: BHASKAR QUIÑONES Study Date: 12/28/2021 Height: 72 in : :[facility] ReadingLocation: Weight: 165 lb : : Gender: Male BSA: 2.0 m2 : :: 1950 Age: 71 yrs BP: 131/63 mmHg: :Reason For Study: RULE OUT PE : :Ordering Physician: HOMAR JOY : : Performed By: Karina Damico : :Referring: HOMAR JOY MD : + + Interpretation Summary There is mild concentric left ventricular hypertrophy. The ejection fraction is estimated to be 65-70%. Diastolic parameters suggest probable normal left ventricular diastolic function and normal filling pressures. The right ventricle is normal in size and function. There is moderate aortic stenosis. There is mild aortic regurgitation. There is mild tricuspid regurgitation. PASP is approximately 27-31 mmHg. Compared to the prior studies dated 03/30/2021 and 05/15/2021, no significant change. Procedure: A two-dimensional transthoracic echocardiogram with color flow and Doppler was performed. The study quality was technically adequate. Comparison is made with the echocardiogram of 05/15/2021. The patient was in sinus rhythm with heart rates between 65-73 bpm during the exam. Left Ventricle: The left ventricle is normal in size. There is mild concentric left ventricular hypertrophy. The ejection fraction is estimated to be 65-70%. There is a borderline dyssynchronous contraction pattern, consistent with a conduction abnormality. Diastolic parameters suggest probable normal left ventricular diastolic function and normal filling pressures. Right Ventricle: The right ventricle is normal in size and function. Atria: The left atrial size is normal. Right atrial size is normal. There is no Doppler evidence for an interatrial shunt. Mitral Valve: There is mild mitral annular calcification. The mitral valve leaflets appear mildly thickened, but open well. There is trace mitral regurgitation. Aortic Valve: The aortic valve is moderately calcified. There is moderately reduced leaflet mobility. The peak aortic velocity is 3.5 m/sec. The aortic valve mean gradient is 27 mmHg. The calculated aortic valve area is 1.4 cm2. There is moderate aortic stenosis. There is mild aortic regurgitation. Tricuspid Valve: The tricuspid valve is normal in structure and function. There is mild tricuspid regurgitation. PASP is approximately 27-31 mmHg. Pulmonic Valve: The pulmonic valve is not well seen, but is grossly normal. There is no pulmonic valvular regurgitation. Great Vessels: The aortic root is normal size. The ascending aorta is at the upper limits of normal in size. The IVC is of normal diameter and collapses greater than 50% with a sniff. This suggests a low right atrial pressure of 3 mm Hg. Pericardium/ Pleura There is no pericardial effusion. There is no pleural effusion. MMode/2D Measurements & Calculations LVIDd: 4.7 cm LVOT diam: 2.2 cm LVIDs: 3.1 cm Ao root diam: 3.4 cm FS: 34.6 % asc Aorta Diam: 3.6 cm IVSd: 1.1 cm Ao Arch Diam (Prox Trans): 2.6 cm LVPWd: 1.0 cm LV parikh. diameter/BSA (cm/m^2): 2.4 LV sys. diameter/BSA (cm/m^2): 1.6 LA A2 area: 22.0 cm2 RA long axis: 4.5 cm LA A4 area: 15.1 cm2 RA area: 13.8 cm2 LA length (vol): 4.5 cm RA vol: 36.0 ml LA vol: 62.3 ml RA : 18.3 ml/m2 LA vol index: 31.7 ml/m2 IVC diam: 0.95 cm RVD1 (basal): 3.2 cm RVD2 (mid): 2.7 cm TAPSE: 1.9 cm Doppler Measurements & Calculations Ao V2 max: 354.3 cm/sec LVOT Max Alex: 119.0 cm/sec Ao V2 mean: 226.4 cm/sec LV V1 max P.7 mmHg Ao max P.3 mmHg LV V1 VTI: 24.5 cm Ao mean P.6 mmHg ROBERTO(I,D): 1.4 cm2 Ao V2 VTI: 67.3 cm ROBERTO(V,D): 1.3 cm2 sev ratio: 0.36 ROBERTO indexed to BSA (cm^2/m^2): 0.70 MV E max alex: 87.5 cm/sec TR max alex: 245.4 cm/sec MV A max alex: 107.7 cm/sec TR max P.1 mmHg MV E/A: 0.81 PA V2 max: 83.6 cm/sec Med Peak E' Alex: 6.1 cm/sec PA V2 mean: 60.7 cm/sec E/E' med: 14.3 PA mean P.6 mmHg Lat Peak E' Alex: 7.2 cm/sec PA pr(Accel): 34.5 mmHg E/E' lat: 12.2 E/e' average: 13.3 MV dec time: 0.21 sec SV(LVOT): 92.7 ml Reading Physician:09:00 AM
[2021-12-27] MEDS: INFLUENZA HD VACCINE 0.7 ML SYRINGE IM (14:36)
--- NOTE | 2021-12-27 15:20 | PC.NURSE ---
Pt moved from ICU at 1500, this nurse assumed care at that time. Pt is A&Ox4, no chest pain, no SOB, lungs CTA. C/o neuropathy to bilat UE and LE at baseline, with decreased sensation in fingers and toes. Wrist brace to R wrist for carpel tunnel, + radial pulses bilat. + Bowel sounds, last BM 12/26, normal per Pt. No difficulty voiding, adequate urine output. + pedal pulses, tape to R ankle. PIV L forearm, SL per MD orders. C/o chronic pain to back, pt does not want pain meds at this time. Pt oriented to new room, urinal and call light within reach. Will continue to monitor.
--- NOTE | 2021-12-27 15:20 | CM.DANOTE ---
Patient is a 71 yo male who was admitted on 12/26/21 for Abd Pain and SOB. Pt has MCR and REG [place] for insurance and his PCP is Dr. Cesar Bar at [facility]. EMR was reviewed. Per , pt with recent NSTEMI in May 2021 last year and chronic neuropathy in his feet and hands at baseline and admitted for Hypertensive Urgency. Per RN, pt was off his medications for about 6 weeks due to Medicare insurance issue but was just resolved and pt now has his medications and was just starting back on his doses when admitted to the hospital. Likely Echo and Stress test today. SW met bedside with pt and explained role and he confirms he lives in [place] alone but has very supportive neighbor friends and they all look out for each other and we help whenever needed. Pt denies any local family but states his two sons are supportive and one lives in [place] and one in [place]. 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 Pt is independent with ADL's and drives but less now since his ankle surgery. Pt does not anticipate any needs at d/c and neighbor plans to provide transport at d/c. Plan: SW to follow closely after possible stress test/echo towards confirming safe plan of home and r/o any further identified discharge planning needs. ROBERT Pearl Discharge Planning/Care Management CM Discharge Assessment Start: 12/27/21 15:19 Freq: Status: Active Protocol: Document 12/27/21 15:19 BF (Rec: 12/27/21 15:20 [id number]) Discharge Planning Assessment Assigned Brim Rounder ROBERT Eugene DPOA/Assigned Designee Name none Advance Directives? Yes Advance Directives on File No History Provided By Patient,Medical Record Has Patient been admitted in last 30 No days? Prior Living Arrangements House Household Members none Type of transporation used prior to Drives own vehicle admit Independent with ADL's Yes Is patient alert and oriented? Yes Caregiver for Another No Community Services used prior to Physical Therapy admission: DME Already Rented / Owned Other Comment knee scooter Barriers to Discharge No Comment Short term memory loss Discharge Plan Home Community Services Physical Therapy Transportation Arrangement Friend Referrals Initiated None needed Additional Comment R/o HH upon DC Whiteboard Updated in Patient Room with Yes name and ext. # of Brim Rounder Review Status In Process Please Provide Date Initial DC 12/27/21 Assessment Was Performed Next Review Type Continued Stay Review
[2021-12-27] MEDS: INSULIN LISPRO 100 UNIT/ML 3ML VIAL SUBCUT (17:13)
--- NOTE | 2021-12-27 19:26 | P.PN_ITS ---
Subjective Subjective Interval history: The patient reports general improvement of his symptoms. He does endorse recent issues with his insurance, meaning he hasn't had his BP meds in a few weeks. Exam Vital Signs (past 8 hours): - 12/27/21 12:00 12/27/21 12:21 12/27/21 17:00 Temperature 97.9 F Pulse Rate 81 115 H 72 Respiratory Rate 29 H 18 Blood Pressure 112/59 L 130/70 Pulse Oximetry 96 98 Oxygen Delivery Method Room Air Oxygen Flow Rate 0 Const Other: Sitting up in bed comfortably upon my entering the room, in no apparent acute distress Eyes Other: No scleral icterus appreciated Neck Other: No carotid bruits noted Resp Other: Lungs clear to auscultation bilaterally Cardio Other: RRR, S1 and S2 heart sounds normal, with no extra heart sounds appreciated, and faint systolic murmur heard best over left upper sternal border with no radiation GI Other: Soft, non-distended, non-tender, bowel sounds present Skin Other: No grossly abnormal skin lesions noted Extrem Other: Palpable and equally steady radial and dorsalis pedis pulses bilaterally Objective Labs Result Diagrams: 12/27/21 05:46 12/27/21 05:46 Labs: Laboratory Results - last 24 hr 12/26/21 12/26/21 12/26/21 17:16 17:16 22:00 WBC RBC Hgb Hct MCV MCH MCHC RDW Plt Count Neut % (Auto) Lymph % (Auto) [place] % (Auto) Eos % (Auto) Baso % (Auto) Neut # (Auto) Lymph # (Auto) [place] # (Auto) Eos # (Auto) Baso # (Auto) Sodium Potassium Chloride Carbon Dioxide BUN Creatinine Estimated GFR BUN/Creatinine Ratio Glucose Hemoglobin A1c 5.9 Calcium Magnesium Total Bilirubin Conjugated Bilirubin Unconjugated Bilirubin AST ALT Alkaline Phosphatase Troponin I Total Protein Albumin Globulin Albumin/Globulin Ratio Triglycerides Cholesterol LDL Cholesterol, Calc HDL Cholesterol TSH 1.89 Nasal Screen MRSA (PCR) Negative for mrsa 12/26/21 12/27/21 12/27/21 23:29 05:46 05:46 WBC 7.0 RBC 3.58 L Hgb 11.6 L Hct 33.4 L MCV 93.5 MCH 32.4 MCHC 34.7 RDW 14.3 Plt Count 174 Neut % (Auto) 53.7 Lymph % (Auto) 37.5 [place] % (Auto) 8.1 Eos % (Auto) 0.4 L Baso % (Auto) 0.3 Neut # (Auto) 3700 Lymph # (Auto) 2600 [place] # (Auto) 600 Eos # (Auto) 0 Baso # (Auto) 0 Sodium 135 L Potassium 4.2 Chloride 105 Carbon Dioxide 27 BUN 20 Creatinine 1.05 Estimated GFR > 60.0 BUN/Creatinine Ratio 19.0 Glucose 143 H Hemoglobin A1c Calcium 8.3 L Magnesium 1.9 Total Bilirubin Conjugated Bilirubin Unconjugated Bilirubin AST ALT Alkaline Phosphatase Troponin I 0.070 H Total Protein Albumin Globulin Albumin/Globulin Ratio Triglycerides Cholesterol LDL Cholesterol, Calc HDL Cholesterol TSH Nasal Screen MRSA (PCR) 12/27/21 12/27/21 12/27/21 05:46 05:46 05:46 WBC RBC Hgb Hct MCV MCH MCHC RDW Plt Count Neut % (Auto) Lymph % (Auto) [place] % (Auto) Eos % (Auto) Baso % (Auto) Neut # (Auto) Lymph # (Auto) [place] # (Auto) Eos # (Auto) Baso # (Auto) Sodium Potassium Chloride Carbon Dioxide BUN Creatinine Estimated GFR BUN/Creatinine Ratio Glucose Hemoglobin A1c Calcium Magnesium Total Bilirubin 0.9 Conjugated Bilirubin 0.0 Unconjugated Bilirubin 0.9 AST 38 ALT 21 Alkaline Phosphatase 71 Troponin I 0.057 H Total Protein 6.4 Albumin 3.7 Globulin 2.7 Albumin/Globulin Ratio 1.4 Triglycerides 82 Cholesterol 166 LDL Cholesterol, Calc 83 HDL Cholesterol 67 H TSH Nasal Screen MRSA (PCR) [facility] Medical History Acute ankle pain Ankle fracture Anxiety (Unknown) Aortic stenosis Ascending aorta dilatation Bilateral carotid artery disease (~09/2018) Bilateral carpal tunnel syndrome BPH (benign prostatic hyperplasia) (Unknown) BPH w urinary obs/LUTS Cervical somatic dysfunction Chest pressure Chronic back pain Chronic kidney disease Chronic pain of right ankle Chronic pain syndrome (Unknown) Chronic renal insufficiency (Unknown) Coronary artery disease (Unknown) Cranial somatic dysfunction Depression (Unknown) Diabetes (Unknown) Diabetic neuropathy associated with type 2 diabetes mellitus Dyspnea on exertion Enlarged prostate Erectile dysfunction Erectile dysfunction GERD (gastroesophageal reflux disease) (Unknown) History of ETOH abuse (Unknown) Hyperlipemia (Unknown) Hypertension (Unknown) Hypertensive crisis Leg cramps, sleep related Low back pain (Unknown) Lumbar back pain with radiculopathy affecting right lower extremity Nonallopathic lesion of lumbar region, not elsewhere classified Pain in knee region after replacement of knee joint Pancreatitis Pancreatitis, acute Pelvic somatic dysfunction Peripheral neuropathy (Unknown) Plantar fasciitis of left foot Rheumatoid arthritis (Unknown) Rheumatoid arthritis Right ankle swelling Sacral region somatic dysfunction Salivary gland swelling Seasonal allergic rhinitis Segmental and somatic dysfunction of abdomen and other regions Segmental and somatic dysfunction of rib cage Seroma after procedure Sleep initiation dysfunction Somatic dysfunction of lower extremity Stiff neck Thoracic region somatic dysfunction Trigger finger, left ring finger Trigger finger, right ring finger Upper extremity somatic dysfunction Urine retention Surgical History History of back surgery (~2012) History of lumbar spinal fusion (01/06/20) History of surgery History of surgical removal of skin lesion Hx of cholecystectomy S/P cervical spinal fusion Status post hernia repair Status post knee surgery Vasectomy status Family History Mother Stroke Father Cancer Social History household members: none Smoking Status: Former smoker alcohol intake: current Assessment & Plan Assessment & Plan narrative: Hector Harper will be admitted for hypertensive urgency likely secondary to lack of access to his medications. 1. Hypertensive emergency, acute, present on admission * Home oral high antihypertensives will be provided, including amlodipine 10 mg, metoprolol succinate 50 mg once daily 2. Myocardial injury * Troponin leak is likely secondary to myocardial injury due to prohibitive afterload of hypertensive emergency, rather than NSTEMI 3. Coronary artery disease, chronic * Continue home dose of aspirin 81 mg p.o. daily and isosorbide mononitrate 60 mg p.o. daily * Echocardiogram pending 4. Nausea and vomiting, acute, present on admission * Given that the patient may have not had access to his normal medications, it is concerning for possible opioid withdrawal 5. Diabetes type 2 well controlled with an A1c of 5.9 * Low-dose correctional scale insulin 6. Hyperlipidemia, chronic * Continue home dose of atorvastatin 20 mg p.o. daily 7. Diabetic polyneuropathy, chronic * Continue home dose of duloxetine 30 mg p.o. b.i.d. and gabapentin 600 mg p.o. t.i.d. * Continue home dose of oxycodone 10 mg q.4 hours as needed for severe pain VTE Prophylaxis: Lovenox 40 mg daily Code status: DNR/DNI I have utilized all available immediate resources to obtain, update, or review of the patient's current medications Time Spent With Patient Critical Care time: I spent a total of [] minutes of critical care time on this patient's care today; this time is exclusive of procedural time. Quality VTE Deep Vein Thrombosis/Pulmonary Embolism Present on Admission: No MIPS - Admit I confirm the patient?s Advance Care Plan is present, Code status is documented, Surrogate decision maker is in patient?s record [If Yes, STOP here]: Yes
[2021-12-27] MEDS: TAMSULOSIN 0.4 MG CAPSULE PO (20:55)
[2021-12-28 05:00] VITALS: BP 139/88; PULSE 70; RESP 18; TEMP 36.7; O2SAT 96
[2021-12-28] MEDS: OXYCODONE IR 10 MG TABLET PO (05:07)
[2021-12-28 06:40] LABS: Add Manual Diff / Slide Review NO; Basophils Absolute Auto 0 /uL (0-100); Basophils Percent Auto 0.4 % (0-2); Eosinophils Absolute Auto 200 /uL (0-450); Eosinophils Percent Auto 3.2 % (2-4); Hematocrit 33.6 % (41-53); Hemoglobin 11.5 g/dL (13.5-17.5); Lymphocytes Absolute Auto 2600 /uL (1100-4500); Lymphocytes Percent Auto 34.9 % (25-40); Mean Corpuscular HGB Conc 34.2 % (30-36); Mean Corpuscular Hemoglobin 32.2 PG (26-34); Monocytes Absolute Auto 500 /uL (0-900); Monocytes Percent Auto 6.7 % (3-14); Neutrophils Absolute Auto 4100 /uL (1500-7000); Neutrophils Percent Auto 54.8 % (50-75); Platelet Count 168 X10^3/uL (150-400); Red Blood Cell Count 3.57 X10^6/uL (4.5-5.9); Red Cell Distribution Width 14.3 % (11.6-14.8); White Blood Cell Count 7.5 X10^3/uL (4.5-11.0)
[2021-12-28 06:50] LABS: BUN Creatinine Ratio 17.3 (6-22); Blood Urea Nitrogen 19 mg/dL (9-20); Calcium 8.5 mg/dL (8.4-10.2); Carbon Dioxide 30 mmol/L (22-32); Chloride 102 mmol/L (98-107); Estimated Glomerular Filt Rate > 60.0 mL/min (>60); Glucose 147 mg/dL (80-110); HEMOLYSIS < 15 (0-50); Magnesium 1.7 mg/dL (1.6-2.3); Potassium 4.6 mmol/L (3.4-5.1); Sodium 133 mmol/L (137-145)
[2021-12-28 06:55] LABS: Alanine Aminotransferase 18 IU/L (<50); Albumin 3.7 g/dL (3.5-5.0); Albumin Globulin Ratio 1.3 (1.0-2.8); Alkaline Phosphatase 82 U/L (38-126); Aspartate Aminotransferase 32 IU/L (17-59); Bilirubin Total 0.9 mg/dL (0.2-1.3); Bilirubin Unconjugated 0.9 mg/dL (0.0-1.1); Globulin 2.9 g/dL (1.7-4.1); HEMOLYSIS < 15 (0-50); Total Protein 6.6 g/dL (6.3-8.2)
[2021-12-28 08:27] VITALS: BP 144/83; PULSE 65
[2021-12-28] MEDS: METOPROLOL ER 50 MG TABLET PO (08:27)
[2021-12-28] MEDS: GABAPENTIN 600 MG TABLET PO (08:27)
[2021-12-28] MEDS: ATORVASTATIN 20 MG TABLET PO (08:27)
[2021-12-28] MEDS: ASPIRIN EC 81 MG TABLET PO (08:27)
[2021-12-28] MEDS: ENOXAPARIN 40 MG/0.4 ML SYRINGE SUBCUT (08:27)
[2021-12-28] MEDS: DULOXETINE 30 MG CAPSULE PO (08:27)
[2021-12-28] MEDS: AMLODIPINE 5 MG TABLET 10 MG PO (08:29)
[2021-12-28] MEDS: ISOSORBIDE MONONITRATE ER 30 MG TABLET 60 MG PO (08:29)
[2021-12-28] MEDS: PANTOPRAZOLE 40 MG VIAL IV (08:30)
[2021-12-28] MEDS: INSULIN LISPRO 100 UNIT/ML 3ML VIAL SUBCUT (08:48)
[2021-12-28 09:00] VITALS: BP 144/83; PULSE 65; RESP 18; O2SAT 96
[2021-12-28 13:00] VITALS: BP 111/55; PULSE 74; RESP 18; TEMP 36.8; O2SAT 97
--- NOTE | 2021-12-28 13:46 | P.PN_ITS ---
Subjective Subjective Interval history: Patient reports feeling well this morning. He denies any acute complaints. He says that his home anti-HTN regimen was actually delivered to him recently, so he has his medications at home. He voices wanting to go home today. Exam Vital Signs (past 8 hours): - 12/28/21 08:27 12/28/21 09:00 12/28/21 13:00 Temperature 98.2 F Pulse Rate 65 65 74 Respiratory Rate 18 18 Blood Pressure 144/83 H 144/83 H 111/55 L Pulse Oximetry 96 97 Oxygen Delivery Method Room Air Oxygen Flow Rate 0 Narrative Exam Narrative: Const Other: Sitting up in bed comfortably upon my entering the room, in no apparent acute distress Eyes Other: No scleral icterus appreciated Neck Other: No carotid bruits noted Resp Other: Lungs clear to auscultation bilaterally Cardio Other: RRR, S1 and S2 heart sounds normal, with no extra heart sounds appreciated, and grade III/ systolic ejection murmur heard best over right upper sternal border, with no carotid radiation GI Other: Soft, non-distended, non-tender, bowel sounds present Skin Other: No grossly abnormal skin lesions noted Extrem Other: Palpable and equally steady radial and dorsalis pedis pulses bilaterally Objective Labs Result Diagrams: 12/28/21 06:14 12/28/21 06:14 Labs: Laboratory Results - last 24 hr 12/28/21 12/28/21 12/28/21 06:14 06:14 06:14 WBC 7.5 RBC 3.57 L Hgb 11.5 L Hct 33.6 L MCV 94.0 MCH 32.2 MCHC 34.2 RDW 14.3 Plt Count 168 Neut % (Auto) 54.8 Lymph % (Auto) 34.9 [place] % (Auto) 6.7 Eos % (Auto) 3.2 Baso % (Auto) 0.4 Neut # (Auto) 4100 Lymph # (Auto) 2600 [place] # (Auto) 500 Eos # (Auto) 200 Baso # (Auto) 0 Sodium 133 L Potassium 4.6 Chloride 102 Carbon Dioxide 30 BUN 19 Creatinine 1.10 Estimated GFR > 60.0 BUN/Creatinine Ratio 17.3 Glucose 147 H Calcium 8.5 Magnesium 1.7 Total Bilirubin 0.9 Conjugated Bilirubin 0.0 Unconjugated Bilirubin 0.9 AST 32 ALT 18 Alkaline Phosphatase 82 Total Protein 6.6 Albumin 3.7 Globulin 2.9 Albumin/Globulin Ratio 1.3 [facility] Medical History Acute ankle pain Ankle fracture Anxiety (Unknown) Aortic stenosis Ascending aorta dilatation Bilateral carotid artery disease (~09/2018) Bilateral carpal tunnel syndrome BPH (benign prostatic hyperplasia) (Unknown) BPH w urinary obs/LUTS Cervical somatic dysfunction Chest pressure Chronic back pain Chronic kidney disease Chronic pain of right ankle Chronic pain syndrome (Unknown) Chronic renal insufficiency (Unknown) Coronary artery disease (Unknown) Cranial somatic dysfunction Depression (Unknown) Diabetes (Unknown) Diabetic neuropathy associated with type 2 diabetes mellitus Dyspnea on exertion Enlarged prostate Erectile dysfunction Erectile dysfunction GERD (gastroesophageal reflux disease) (Unknown) History of ETOH abuse (Unknown) Hyperlipemia (Unknown) Hypertension (Unknown) Hypertensive crisis Leg cramps, sleep related Low back pain (Unknown) Lumbar back pain with radiculopathy affecting right lower extremity Nonallopathic lesion of lumbar region, not elsewhere classified Pain in knee region after replacement of knee joint Pancreatitis Pancreatitis, acute Pelvic somatic dysfunction Peripheral neuropathy (Unknown) Plantar fasciitis of left foot Rheumatoid arthritis (Unknown) Rheumatoid arthritis Right ankle swelling Sacral region somatic dysfunction Salivary gland swelling Seasonal allergic rhinitis Segmental and somatic dysfunction of abdomen and other regions Segmental and somatic dysfunction of rib cage Seroma after procedure Sleep initiation dysfunction Somatic dysfunction of lower extremity Stiff neck Thoracic region somatic dysfunction Trigger finger, left ring finger Trigger finger, right ring finger Upper extremity somatic dysfunction Urine retention Surgical History History of back surgery (~2012) History of lumbar spinal fusion (01/06/20) History of surgery History of surgical removal of skin lesion Hx of cholecystectomy S/P cervical spinal fusion Status post hernia repair Status post knee surgery Vasectomy status Family History Mother Stroke Father Cancer Social History household members: none Smoking Status: Former smoker alcohol intake: current Assessment & Plan Assessment & Plan narrative: Hector Harper is here for hypertensive emergency likely secondary to lack of access to his medications. 1. Hypertensive emergency, acute, present on admission * Home oral high antihypertensives to be continued, including amlodipine 10 mg, metoprolol succinate 50 mg once daily * Holding home Imdur on discharge given problem 2 2. Aortic stenosis, moderate * Will stop home Imdur 60 mg daily, given patient's preload-dependent state from aortic stenosis * Lisinopril can potentially be added outpatient to help with afterload, if his BP starts to increase again 3. Myocardial injury * Troponin leak is likely secondary to myocardial injury due to prohibitive afterload of hypertensive emergency, rather than NSTEMI 4. Coronary artery disease, chronic * Continue home dose of aspirin 81 mg daily and atorvastatin 20 mg daily * Echocardiogram revealed no wall motion abnormalities 5. Nausea and vomiting, acute, present on admission, resolved * Likely due to hypertensive emergency, and resolved 6. Diabetes type 2, well-controlled with an A1c of 5.9 * Low-dose correctional scale insulin 7. Hyperlipidemia, chronic * Continue home dose of atorvastatin 20 mg p.o. daily 8. Chronic pain due to multiple surgeries * Continue home dose of duloxetine 30 mg p.o. b.i.d. and gabapentin 600 mg p.o. t.i.d. * Continue home dose of oxycodone 10 mg q.4 hours as needed for severe pain 9. BPH, chronic * Continue home tamsulosin, likely having a small effect on lowering BP, too VTE Prophylaxis: Lovenox 40 mg daily Time Spent With Patient Critical Care time: I spent a total of [] minutes of critical care time on this patient's care today; this time is exclusive of procedural time. Quality VTE Deep Vein Thrombosis/Pulmonary Embolism Present on Admission: No
--- NOTE | 2021-12-28 13:53 | P.DS_ITS ---
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 States has not been eating for 24 hours, endorses having chills and not being able to take in a full breath. He has chr onic diabetic neuropathy of both hands and feet. Denies dysurea or changes in bowel habits. He denies any obvious provocation or palliation.? Denies any chest pain, dizziness, weakness or lightheadedness.? He states that he has not had access to his medications in about 6 weeks due to insurance issues.? He denies any headache or blurred vision.? He denies chest pain or shortness of breath.? He denies any fevers.? EMS was activated and had given some Zofran and Phenergan and route with little success.? On arrival to the ED, his blood pressures were in the 250s over 130s while actively vomiting. Chest x-ray and abdominal series were ordered by the emergency department both of which were negative though the abdominal x-ray did indicate air and gas in his colon.? Patient has a low-grade fever of 99.2, blood pressure 182/79, heart rate 105, respiratory rate 13, oxygen saturation of 99% on room air he weighs 75 kg with a BMI of 22.4.? Is mildly anemic with a hemoglobin of 12.7 and hematocri t of 36.9 glucose is 156 with a hemoglobin A1c of 5.9, proBNP was 870, initial troponin drawn at 5:00 p.m. was within normal limits and the 2nd 1 is pending, TSH is 1.89 and COVID-19 PCR is negative. Written by the admitting provider. Discharge Providers Provider Date of admission: 12/26/21 20:02 Discharge Date: 12/28/21 Primary care physician: Cesar Bar DO Consults: 12/26/21 20:18 Consult to Tele-natural foods clerk Routine Comment: Consulting Provider: [employer] Reason for consultation: Consumer Marketing Specialist services Has provider been notified: Yes Discharge provider: Shay Bowens MD Summary Hospital Course Discharge Diagnosis: Hector Harper is here for hypertensive emergency likely secondary to lack of access to his medications. 1. Hypertensive emergency, acute, present on admission ? Home oral high antihypertensives to be continued, including amlodipine 10 mg, metoprolol succinate 50 mg once daily ? Holding home Imdur on discharge given problem 2 2. Aortic stenosis, moderate ? Will stop home Imdur 60 mg daily, given patient's preload-dependent state from aortic stenosis ? Lisinopril can potentially be added outpatient to help with afterload, if his BP starts to increase again 3. Myocardial injury ? Troponin leak is likely secondary to myocardial injury due to prohibitive afterload of hypertensive emergency, rather than NSTEMI 4. Coronary artery disease, chronic ? Continue home dose of aspirin 81 mg daily and atorvastatin 20 mg daily ? Echocardiogram revealed no wall motion abnormalities 5. Nausea and vomiting, acute, present on admission, resolved ? Likely due to hypertensive emergency, and resolved 6. Diabetes type 2, well-controlled with an A1c of 5.9 ? Low-dose correctional scale insulin 7. Hyperlipidemia, chronic ? Continue home dose of atorvastatin 20 mg p.o. daily 8. Chronic pain due to multiple surgeries ? Continue home dose of duloxetine 30 mg p.o. b.i.d. and gabapentin 600 mg p.o. t.i.d. ? Continue home dose of oxycodone 10 mg q.4 hours as needed for severe pain 9. BPH, chronic ? Continue home tamsulosin, likely having a small effect on lowering BP, too Exam Vital Signs (past 8 hours): - 12/28/21 08:27 12/28/21 09:00 12/28/21 13:00 Temperature 98.2 F Pulse Rate 65 65 74 Respiratory Rate 18 18 Blood Pressure 144/83 H 144/83 H 111/55 L Pulse Oximetry 96 97 Oxygen Delivery Method Room Air Oxygen Flow Rate 0 Objective Labs Result Diagrams: 12/28/21 06:14 12/28/21 06:14 Labs: Laboratory Results - last 24 hr 12/28/21 12/28/21 12/28/21 06:14 06:14 06:14 WBC 7.5 RBC 3.57 L Hgb 11.5 L Hct 33.6 L MCV 94.0 MCH 32.2 MCHC 34.2 RDW 14.3 Plt Count 168 Neut % (Auto) 54.8 Lymph % (Auto) 34.9 [place] % (Auto) 6.7 Eos % (Auto) 3.2 Baso % (Auto) 0.4 Neut # (Auto) 4100 Lymph # (Auto) 2600 [place] # (Auto) 500 Eos # (Auto) 200 Baso # (Auto) 0 Sodium 133 L Potassium 4.6 Chloride 102 Carbon Dioxide 30 BUN 19 Creatinine 1.10 Estimated GFR > 60.0 BUN/Creatinine Ratio 17.3 Glucose 147 H Calcium 8.5 Magnesium 1.7 Total Bilirubin 0.9 Conjugated Bilirubin 0.0 Unconjugated Bilirubin 0.9 AST 32 ALT 18 Alkaline Phosphatase 82 Total Protein 6.6 Albumin 3.7 Globulin 2.9 Albumin/Globulin Ratio 1.3 [facility] Medical History Acute ankle pain Ankle fracture Anxiety (Unknown) Aortic stenosis Ascending aorta dilatation Bilateral carotid artery disease (~09/2018) Bilateral carpal tunnel syndrome BPH (benign prostatic hyperplasia) (Unknown) BPH w urinary obs/LUTS Cervical somatic dysfunction Chest pressure Chronic back pain Chronic kidney disease Chronic pain of right ankle Chronic pain syndrome (Unknown) Chronic renal insufficiency (Unknown) Coronary artery disease (Unknown) Cranial somatic dysfunction Depression (Unknown) Diabetes (Unknown) Diabetic neuropathy associated with type 2 diabetes mellitus Dyspnea on exertion Enlarged prostate Erectile dysfunction Erectile dysfunction GERD (gastroesophageal reflux disease) (Unknown) History of ETOH abuse (Unknown) Hyperlipemia (Unknown) Hypertension (Unknown) Hypertensive crisis Leg cramps, sleep related Low back pain (Unknown) Lumbar back pain with radiculopathy affecting right lower extremity Nonallopathic lesion of lumbar region, not elsewhere classified Pain in knee region after replacement of knee joint Pancreatitis Pancreatitis, acute Pelvic somatic dysfunction Peripheral neuropathy (Unknown) Plantar fasciitis of left foot Rheumatoid arthritis (Unknown) Rheumatoid arthritis Right ankle swelling Sacral region somatic dysfunction Salivary gland swelling Seasonal allergic rhinitis Segmental and somatic dysfunction of abdomen and other regions Segmental and somatic dysfunction of rib cage Seroma after procedure Sleep initiation dysfunction Somatic dysfunction of lower extremity Stiff neck Thoracic region somatic dysfunction Trigger finger, left ring finger Trigger finger, right ring finger Upper extremity somatic dysfunction Urine retention Surgical History History of back surgery (~2012) History of lumbar spinal fusion (01/06/20) History of surgery History of surgical removal of skin lesion Hx of cholecystectomy S/P cervical spinal fusion Status post hernia repair Status post knee surgery Vasectomy status Family History Mother Stroke Father Cancer Social History household members: none Smoking Status: Former smoker alcohol intake: current Discharge Assessment & Plan Assessment and Plan Assessment: Hector Harper is here for hypertensive emergency likely secondary to lack of access to his medications. 1. Hypertensive emergency, acute, present on admission ? Home oral high antihypertensives to be continued, including amlodipine 10 mg, metoprolol succinate 50 mg once daily ? Holding home Imdur on discharge given problem 2 2. Aortic stenosis, moderate ? Will stop home Imdur 60 mg daily, given patient's preload-dependent state from aortic stenosis ? Lisinopril can potentially be added outpatient to help with afterload, if his BP starts to increase again 3. Myocardial injury ? Troponin leak is likely secondary to myocardial injury due to prohibitive af terload of hypertensive emergency, rather than NSTEMI 4. Coronary artery disease, chronic ? Continue home dose of aspirin 81 mg daily and atorvastatin 20 mg daily ? Echocardiogram revealed no wall motion abnormalities 5. Nausea and vomiting, acute, present on admission, resolved ? Likely due to hypertensive emergency, and resolved 6. Diabetes type 2, well-controlled with an A1c of 5.9 ? Low-dose correctional scale insulin 7. Hyperlipidemia, chronic ? Continue home dose of atorvastatin 20 mg p.o. daily 8. Chronic pain due to multiple surgeries ? Continue home dose of duloxetine 30 mg p.o. b.i.d. and gabapentin 600 mg p.o. t.i.d. ? Continue home dose of oxycodone 10 mg q.4 hours as needed for severe pain 9. BPH, chronic ? Continue home tamsulosin, likely having a small effect on lowering BP, too Discharge Plan Discharge Plan Patient Disposition: Home Discharge orders & Medications Prescriptions: Continued aspirin 81 mg tablet,delayed release (DR/EC) 81 mg PO DAILY Qty: 90 3RF amlodipine 10 mg tablet See Rx Instructions .ROUTE .COMPLEX Qty: 90 0RF Dose Instruction: TAKE 1 TABLET BY MOUTH EVERY DAY Rx Instructions: TAKE 1 TABLET BY MOUTH EVERY DAY atorvastatin 20 mg tablet 20 mg PO DAILY Qty: 90 3RF gabapentin 600 mg tablet See Rx Instructions .ROUTE .COMPLEX Qty: 540 0RF Dose Instruction: TAKE 3 TABLETS BY MOUTH TWICE DAILY Rx Instructions: TAKE 3 TABLETS BY MOUTH TWICE DAILY glipizide 5 mg tablet See Rx Instructions .ROUTE .COMPLEX Qty: 90 0RF Dose Instruction: TAKE 1/2 TABLET BY MOUTH TWICE DAILY Rx Instructions: TAKE 1/2 TABLET BY MOUTH TWICE DAILY metoprolol succinate 50 mg tablet extended release 24 hr See Rx Instructions .ROUTE .COMPLEX Qty: 180 3RF Dose Instruction: TAKE 1 TABLET BY MOUTH 2 TIMES A DAY Rx Instructions: TAKE 1 TABLET BY MOUTH 2 TIMES A DAY tamsulosin 0.4 mg capsule See Rx Instructions .ROUTE .COMPLEX Qty: 180 0RF Dose Instruction: TAKE 2 CAPSULES BY MOUTH EVERY EVENING Rx Instructions: TAKE 2 CAPSULES BY MOUTH EVERY EVENING duloxetine 30 mg Capsule,Delayed Release(Dr/Ec) 30 mg PO BID 0RF acetaminophen [Tylenol] 325 mg Capsule 975 mg PO TID PRN (Reason: Pain, Moderate) 0RF Discontinued isosorbide mononitrate 60 mg tablet extended release 24 hr 60 mg PO DAILY 0RF Rx Instructions: TAKE 1 TABLET BY MOUTH EVERY MORNING Follow up/Referrals: Cesar Bar DO [Primary Care Provider] - Discharge Data Primary Care Provider: Cesar Bar Quality VTE Deep Vein Thrombosis/Pulmonary Embolism Present on Admission: No
--- NOTE | 2021-12-28 15:52 | CM.DPNOTE ---
DC Note DC home today. Dr Bowens concerned that patient cannot secure his BP meds upon DC d/t insurance coverage ? Met w/patient; reviewed DCP and reviewed Rx carrier. Patient states he signed up for a Rx plan called [employer] through an agent that I could never get a hold of. Patient states he just got his prescriptions delivered yesterday and so does not anticipate a problem in medication compliance upon DC Patient indp and active at functional baseline; states he will have a friend transport him home this afternoon, denies needs from this [employer] Later received VM from Zabrina Bradley's neighbor stating someone needs to meet with him and help him, he has really bad dementia P# [phone] This [employer] unable to discuss w/patient and/or return this call d/t caseload demands Patient gave staff no reason to question his readiness or abilities in returning home w/friends to assist as needed JW
== END 2021-12-28 14:00 | disposition home or self-care (01) | DRG 305 ==
LOC: ED 19:33 → AC 20:03 → ICU 21:44 → AC 12-27 14:22
PROVIDERS: Admitting Provider Nurse Practitioner Family; Emergency Provider Emergency Medicine; Family Provider Family Medicine; PCP Family Medicine; Referring Provider Emergency Medicine; Visit Provider Nurse Practitioner Family
DX: I16.1 Hypertensive emergency (principal); I5A Non-ischemic myocardial injury (non-traumatic); F11.20 Opioid dependence, uncomplicated; E11.42 Type 2 diabetes mellitus with diabetic polyneuropathy; T46.1X6A Underdosing of calcium-channel blockers, initial encounter; T44.7X6A Underdosing of beta-adrenoreceptor antagonists, initial encounter; T40.2X6A Underdosing of other opioids, initial encounter; I25.10 Atherosclerotic heart disease of native coronary artery without angina pectoris; E78.5 Hyperlipidemia, unspecified; I35.0 Nonrheumatic aortic (valve) stenosis; N40.0 Benign prostatic hyperplasia without lower urinary tract symptoms; G89.4 Chronic pain syndrome; F32.A Depression, unspecified; Z91.120 Patient's intentional underdosing of medication regimen due to financial hardship; Z87.891 Personal history of nicotine dependence; Z66 Do not resuscitate; Z20.822 Contact with and (suspected) exposure to COVID-19; Z79.84 Long term (current) use of oral hypoglycemic drugs; Z23 Encounter for immunization
CPT/HCPCS: 36415; 71045; 74018; 80048; 80053; 80061; 80076; 82550; 82553; 82962; 83036; 83690; 83735; 83880; 84443; 84484; 85025; 85610; 87635; 87797; 90471; 90662; 93005; 93010; 93306; 96365; 96366; 96375; 97110; 97116; 97140; 99284; C9803; C9113; J1650; J1815; J2405

== ENCOUNTER 2022-02-20 08:15 | Outpatient (RCR) | payer MEDICARE, OTHER, SELFPAY ==
[2021-04-11 08:55] VITALS: BMI 23.6
--- NOTE | 2021-12-21 10:25 | PT.OIE ---
Current Diagnoses Post-traumatic osteoarthritis, right ankle and foot (12/21/21) Past Medical History (Last Reviewed 10/20/21 @ 06:35 by Chayo Guerra, RN) Acute ankle pain Ankle fracture Anxiety (Unknown) Aortic stenosis Ascending aorta dilatation Bilateral carotid artery disease (~09/2018) Bilateral carpal tunnel syndrome BPH (benign prostatic hyperplasia) (Unknown) BPH w urinary obs/LUTS Cervical somatic dysfunction Chest pressure Chronic back pain Chronic kidney disease Chronic pain of right ankle Chronic pain syndrome (Unknown) Chronic renal insufficiency (Unknown) Coronary artery disease (Unknown) Cranial somatic dysfunction Depression (Unknown) Diabetes (Unknown) Diabetic neuropathy associated with type 2 diabetes mellitus Dyspnea on exertion Enlarged prostate Erectile dysfunction Erectile dysfunction GERD (gastroesophageal reflux disease) (Unknown) History of back surgery (~2012) History of ETOH abuse (Unknown) History of lumbar spinal fusion (01/06/20) History of surgery History of surgical removal of skin lesion Hx of cholecystectomy Hyperlipemia (Unknown) Hypertension (Unknown) Hypertensive crisis Leg cramps, sleep related Low back pain (Unknown) Lumbar back pain with radiculopathy affecting right lower extremity Nonallopathic lesion of lumbar region, not elsewhere classified Pain in knee region after replacement of knee joint Pancreatitis Pancreatitis, acute Pelvic somatic dysfunction Peripheral neuropathy (Unknown) Plantar fasciitis of left foot Rheumatoid arthritis (Unknown) Rheumatoid arthritis Right ankle swelling S/P cervical spinal fusion Sacral region somatic dysfunction Salivary gland swelling Seasonal allergic rhinitis Segmental and somatic dysfunction of abdomen and other regions Segmental and somatic dysfunction of rib cage Seroma after procedure Sleep initiation dysfunction Somatic dysfunction of lower extremity Stiff neck Thoracic region somatic dysfunction Trigger finger, left ring finger Trigger finger, right ring finger Upper extremity somatic dysfunction Urine retention Vasectomy status Past Surgical History (Last Reviewed 10/20/21 @ 06:35 by Chayo Guerra, DONALD) History of back surgery (~2012) History of lumbar spinal fusion (01/06/20) History of surgery History of surgical removal of skin lesion Hx of cholecystectomy S/P cervical spinal fusion Status post hernia repair Status post knee surgery Vasectomy status Visit Care Team Role Provider Type Cesar Bar DO Family Provider Physician Primary Care Provider Specialty: Family Practice Address: [address] [place] [address], [id number] Email: Corrina Rowan MD Attending Provider Physician Referring Provider Specialty: Orthopedics Address: [address] [place] [address], [id number] Email: [email or web address] Physical Therapy Initial Evaluation PT-OP-A Visit Information Start: 12/20/21 16:26 Freq: Status: Active Protocol: Document 12/21/21 09:00 [facility] (Rec: 12/21/21 10:25 [facility] [id number]) Out-Patient Physical Therapy Visit Information Visit Information Visit Type Initial Evaluation Visit Note 8 weeks post-op Visit Start Time 09:00 Visit Stop Time 09:56 Total Visit Minutes 56 Visit Number 1 Evaluation Information Evaluation Date 12/21/21 Precautions Precautions per protocol in EMR. PMH: Diabetic neuropathy associated with type 2 diabetes mellitus Lumbar back pain with radiculopathy affecting right lower extremity Nonallopathic lesion of lumbar region, not elsewhere classified Pain in knee region after replacement of knee joint Plantar fasciitis of left foot Rheumatoid arthritis neck pain Thoracic region somatic dysfunction Trigger finger, left ring finger Trigger finger, right ring finger carpal tunnel coleen PT-OP-B Current Condition Start: 12/20/21 16:26 Freq: Status: Active Protocol: Document 12/21/21 09:00 [facility] (Rec: 12/21/21 10:25 [facility] [id number]) Current Condition History of Current Condition Onset Date 10/20/21 Current Complaints right ankle weakness and decreased range of motion, gait difficulty History of Current Condition right ankle hardware removed and 2nd fusion. Wearing walking boot and using knee scooter. Pain currently 10. Has done partial weight- bearing both in and out of the boot. Saw Dr. Rowan last week; only doing light-walking wearing boot. Has gone to park a couple times using walking stick level surfaces. Prior Treatments and Tests prior right ankle fusion Future Testing and Treatments Planned Sees Dr. Jin 01/23 or 01/24 Prior Functional Status Baseline Function- ADL's Modified Independent Baseline Function- Gait modfied independent, difficulty using assistive device d/t pn hands and shl Baseline Function- Recreation/Hobbies fishing, fly tying, walking his dog Personal Factors Other Personal Factors That May Effect history of depression, neck Therapy/Recovery pain, shoulder pain coleen, coleen wrist pain, history TKA PT-OP-F Manual Assessment Start: 12/20/21 16:26 Freq: Status: Active Protocol: Document 12/21/21 09:00 [facility] (Rec: 12/21/21 10:25 [facility] [id number]) Manual Assessments Soft Tissue Assessment Soft Tissue Mobility Assessment decreased scar mobility right PT-OP-G Mobility & Gait Start: 12/20/21 16:26 Freq: Status: Active Protocol: Document 12/21/21 09:00 [facility] (Rec: 12/21/21 10:25 [facility] [id number]) OP Mobility Evaluation Bed Mobility Rolling indep Transfers Sit to Stand indep, wearing boot OP Gait Assessment Gait Gait Assistance Required: Independent Distance (Feet) 50 Able to Maintain Weight Bearing Status Yes During Gait Assistive Devices Assistive Device Front Wheeled Walker Orthotic/Prosthetic Devices or Brace: Yes Gait Deviations General Gait Pattern Antalgic,Decreased Stride Length,Decreased Feet Clearance Factors Limiting Gait Function Factors Limiting Gait Function Decreased Strength,Limited Range of Motion,Pain PT-OP-H Neuro Start: 12/20/21 16:26 Freq: Status: Active Protocol: Document 12/21/21 09:00 [facility] (Rec: 12/21/21 10:25 [facility] [id number]) Sensation Evaluation Gross Sensation Gross Sensation Left LE Impaired,Right LE Impaired Sensation Description Numbness Comments Summary Comments peripheral neuropathy PT-OP-J Posture/Palpation/Skin Start: 12/20/21 16:26 Freq: Status: Active Protocol: Document 12/21/21 09:00 [facility] (Rec: 12/21/21 10:25 [facility] [id number]) Palpation Assessment Location right ankle Palpation Findings Edema,Soft Tissue Tightness Palpation Details decreased scar mobility right foot/ankle PT-OP-K Range of Motion Start: 12/20/21 16:26 Freq: Status: Active Protocol: Document 12/21/21 09:00 [facility] (Rec: 12/21/21 10:25 [facility] [id number]) Ankle and Foot Goniometric Range of Motion Ankle and Foot Right Active Ankle/Foot ROM WFL No Dorsiflexion with Knee Flexed 0 Plantarflexion 12 Inversion 9 Eversion 11 Comments -5 deg with knee extended left Ankle/Foot ROM WFL Yes PT-OP-M Strength Start: 12/20/21 16:26 Freq: Status: Active Protocol: Document 12/21/21 09:00 [facility] (Rec: 12/21/21 10:25 [facility] [id number]) Ankle/Foot Strength Ankle and Foot Manual Muscle Testing Right Dorsiflexion (L4) 3+ Fair+ Plantarflexion (S1) 3+ Fair+ Inversion 3+ Fair+ Eversion (S1) 3+ Fair+ Comments limited MMT due to recentl surgery Left Dorsiflexion (L4) 5 Normal Plantarflexion (S1) 5 Normal Inversion 5 Normal Eversion (S1) 5 Normal PT-OP-Q Treatments Start: 12/20/21 16:26 Freq: Status: Active Protocol: Document 12/21/21 09:00 [facility] (Rec: 12/21/21 10:25 [facility] [id number]) Gait Training Gait Activity 1 Description level surface Device Used FWW Level of Assistance verbal cues Distance/Duration 30 Treatment Focus upright posture, small steps, heel/toe gait Manual Therapy Treatment Taping right foot and ankle Treatment Focus edema reduction Type of Tape Kinesio Tape Skin Inspection intact Comments 2 fan strips Self-Care/Home Management Treatment Education Patient Education Home Exercise Program,Joint Protection,Safety Caregiver Education post-op protocol, wear boot at all times when up, gradually increase weight-bearing as tolerated . PT-OP-R Modalities Start: 12/20/21 16:26 Freq: Status: Active Protocol: Document 12/21/21 09:00 [facility] (Rec: 12/21/21 10:25 [facility] [id number]) Hot Pack/Cold Pack Treatment right foot/ankle Patient Position Hooklying Treatment Duration (minutes) 10 Patient Tolerance Good Comments cryocuff PT-OP-T Assessment and Plan Start: 12/20/21 16:26 Freq: Status: Active Protocol: Document 12/21/21 09:00 [facility] (Rec: 12/21/21 10:25 [facility] [id number]) Physical Therapy Assessment Rehab Potential Rehabilitation Potential Good Evaluation Complexity Number of Personal Factors/Comorbidities 3 or More Number of Body Systems Impaired 3 Clinical Presentation at Evaluation Evolving Impairments Impairments Gait,ROM,Soft Tissue Mobility, Strength Goals Three Impairment decreased ROM and strength right ankle Short Term Goal (STG) patient to be independent with HEP for purposes of ROM and strengthening right ankle STG Duration 01/18/22 Personnel Arbitrator Goal (LTG) Patient ROM WFL, and strength right ankle at least 4+/5 to allow him to return to usual activities LTG Duration 03/21/22 Two Impairment swelling right foot and ankle Short Term Goal (STG) Patient to demonstrate good understanding of edema reduction to include elevation , ice, compression STG Duration 01/18/22 Assisted Goal (LTG) Decrease swelling to withing 2 cm measurements of right for improved right ankle function for all usual activities LTG Duration 03/21/22 One Impairment ambulating with walking boot, antalgic gait with walker household gait Short Term Goal (STG) Progress to full weight- bearing in boot per protocol with min to no increase in pain STG Duration 01/18/22 Assisted Goal (LTG) Patient will be able to ambulate with normal shoe with minimal to no limp with least restrictive assistive device to allow him to return to walking his dog, going fishing . LTG Duration 03/21/22 Assessment Summary Assessment Patient presents to PT s/p right ankle hardware removal and fusion (2nd fusion on that ankle). He is ambulating to PT using knee scooter NWB right LE wearing walking boot. He has been doing some walking at home wearing the boot using cane, states at night goes to the bathroom with no walking boot; urged to wear boot at all times when weight-bearing at this time per protocol. He has significant edema in his foot and ankle and was urged to elevate and ice, kinesiotape was applied today for edema reduction, and PT recommended patient obtain compression stocking for edema control. Complicating factors in his recovery will be prior ankle fusion, TKA, bilateral wrist and shoulder pain, neuropathy. He would benefit from PT to help him rehab his right ankle s/p fusion and help him return to prior level of function. Physical Therapy Plan Frequency and Duration Frequency of Treatment 2x/Week Duration of Treatment 12 weeks Plan of Care Start Date 12/21/21 Plan of Care End Date 03/21/22 Therapeutic Interventions Therapeutic Interventions Aquatic Therapy,Balance Training,Gait Training,Home Exercise Program,Manual Therapy,Neuromuscular Re- education,Patient/Caregiver Education,Self-Care/Home Management,Soft Tissue Mobilization,Taping, Therapeutic Activities, Therapeutic Exercises Modalities Cold Pack/Ice Massage Next Visit Focus/Plan Next Note Type Treatment Note Next Visit Plan Gait training, use scale for % weight-bearing education. Ex bike/recumbant elliptical. Scar mobilization, gentle ROM and strengthening.
--- NOTE | 2021-12-21 10:25 | PT.OPPOC ---
Physical, Occupational & Speech Therapy At [facility] Current Diagnoses Post-traumatic osteoarthritis, right ankle and foot (12/21/21) Visit Care Team Role Provider Type Cesar Bar DO Family Provider Physician Primary Care Provider Specialty: Family Practice Address: [address] [place] [address], [id number] Email: Corrina Rowan MD Attending Provider Physician Referring Provider Specialty: Orthopedics Address: [address] [place] [address], [id number] Email: [email or web address] Plan Of Care PT-OP-T Assessment and Plan Start: 12/20/21 16:26 Freq: Status: Active Protocol: Document 12/21/21 09:00 [facility] (Rec: 12/21/21 10:25 [facility] [id number]) Physical Therapy Assessment Rehab Potential Rehabilitation Potential Good Evaluation Complexity Number of Personal Factors/Comorbidities 3 or More Number of Body Systems Impaired 3 Clinical Presentation at Evaluation Evolving Impairments Impairments Gait,ROM,Soft Tissue Mobility, Strength Goals Three Impairment decreased ROM and strength right ankle Short Term Goal (STG) patient to be independent with HEP for purposes of ROM and strengthening right ankle STG Duration 01/18/22 Supervisor [employer] Goal (LTG) Patient ROM WFL, and strength right ankle at least 4+/5 to allow him to return to usual activities LTG Duration 03/21/22 Two Impairment swelling right foot and ankle Short Term Goal (STG) Patient to demonstrate good understanding of edema reduction to include elevation , ice, compression STG Duration 01/18/22 Supervisor [employer] Goal (LTG) Decrease swelling to withing 2 cm measurements of right for improved right ankle function for all usual activities LTG Duration 03/21/22 One Impairment ambulating with walking boot, antalgic gait with walker household gait Short Term Goal (STG) Progress to full weight- bearing in boot per protocol with min to no increase in pain STG Duration 01/18/22 Supervisor [employer] Goal (LTG) Patient will be able to ambulate with normal shoe with minimal to no limp with least restrictive assistive device to allow him to return to walking his dog, going fishing . LTG Duration 03/21/22 Assessment Summary Assessment Patient presents to PT s/p right ankle hardware removal and fusion (2nd fusion on that ankle). He is ambulating to PT using knee scooter NWB right LE wearing walking boot. He has been doing some walking at home wearing the boot using cane, states at night goes to the bathroom with no walking boot; urged to wear boot at all times when weight-bearing at this time per protocol. He has significant edema in his foot and ankle and was urged to elevate and ice, kinesiotape was applied today for edema reduction, and PT recommended patient obtain compression stocking for edema control. Complicating factors in his recovery will be prior ankle fusion, TKA, bilateral wrist and shoulder pain, neuropathy. He would benefit from PT to help him rehab his right ankle s/p fusion and help him return to prior level of function. Physical Therapy Plan Frequency and Duration Frequency of Treatment 2x/Week Duration of Treatment 12 weeks Plan of Care Start Date 12/21/21 Plan of Care End Date 03/21/22 Therapeutic Interventions Therapeutic Interventions Aquatic Therapy,Balance Training,Gait Training,Home Exercise Program,Manual Therapy,Neuromuscular Re- education,Patient/Caregiver Education,Self-Care/Home Management,Soft Tissue Mobilization,Taping, Therapeutic Activities, Therapeutic Exercises Modalities Cold Pack/Ice Massage Next Visit Focus/Plan Next Note Type Treatment Note Next Visit Plan Gait training, use scale for % weight-bearing education. Ex bike/recumbant elliptical. Scar mobilization, gentle ROM and strengthening. Plan of Care Dates Plan of Care Start Date 12/21/21 Plan of Care End Date 03/21/22 Electronically Signed by: Simin Mahan, PT 12/21/21 [id number] Please Sign and Return: I have reviewed this Plan of Care and certify that the skilled therapy services above are required to meet the patient?s needs. Physician Signature Date Printed Name and Credentials Clinical Instructor Signature Printed Name and Credentials
--- NOTE | 2021-12-26 16:34 | PT.OIE ---
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 (12/26/21) Post-traumatic osteoarthritis, right ankle and foot (12/26/21) Difficulty in walking, not elsewhere classified (12/26/21) Weakness (12/26/21) Past Medical History (Last Reviewed 10/20/21 @ 06:35 by Chayo Guerra RN) Acute ankle pain Ankle fracture Anxiety (Unknown) Aortic stenosis Ascending aorta dilatation Bilateral carotid artery disease (~09/2018) Bilateral carpal tunnel syndrome BPH (benign prostatic hyperplasia) (Unknown) BPH w urinary obs/LUTS Cervical somatic dysfunction Chest pressure Chronic back pain Chronic kidney disease Chronic pain of right ankle Chronic pain syndrome (Unknown) Chronic renal insufficiency (Unknown) Coronary artery disease (Unknown) Cranial somatic dysfunction Depression (Unknown) Diabetes (Unknown) Diabetic neuropathy associated with type 2 diabetes mellitus Dyspnea on exertion Enlarged prostate Erectile dysfunction Erectile dysfunction GERD (gastroesophageal reflux disease) (Unknown) History of back surgery (~2012) History of ETOH abuse (Unknown) History of lumbar spinal fusion (01/06/20) History of surgery History of surgical removal of skin lesion Hx of cholecystectomy Hyperlipemia (Unknown) Hypertension (Unknown) Hypertensive crisis Leg cramps, sleep related Low back pain (Unknown) Lumbar back pain with radiculopathy affecting right lower extremity Nonallopathic lesion of lumbar region, not elsewhere classified Pain in knee region after replacement of knee joint Pancreatitis Pancreatitis, acute Pelvic somatic dysfunction Peripheral neuropathy (Unknown) Plantar fasciitis of left foot Rheumatoid arthritis (Unknown) Rheumatoid arthritis Right ankle swelling S/P cervical spinal fusion Sacral region somatic dysfunction Salivary gland swelling Seasonal allergic rhinitis Segmental and somatic dysfunction of abdomen and other regions Segmental and somatic dysfunction of rib cage Seroma after procedure Sleep initiation dysfunction Somatic dysfunction of lower extremity Stiff neck Thoracic region somatic dysfunction Trigger finger, left ring finger Trigger finger, right ring finger Upper extremity somatic dysfunction Urine retention Vasectomy status Past Surgical History (Last Reviewed 10/20/21 @ 06:35 by Chayo Guerra RN) History of back surgery (~2012) History of lumbar spinal fusion (01/06/20) History of surgery History of surgical removal of skin lesion Hx of cholecystectomy S/P cervical spinal fusion Status post hernia repair Status post knee surgery Vasectomy status Visit Care Team Role Provider Type Cesar Bar DO Family Provider Physician Primary Care Provider Specialty: Family Practice Address: [address] [place] [address], [id number] Email: Corrina Rowan MD Attending Provider Physician Referring Provider Specialty: Orthopedics Address: [address] [place] [address], [place], [address] Email: [email or web address] Physical Therapy Initial Evaluation PT-OP-A Visit Information Start: 12/20/21 16:26 Freq: Status: Active Protocol: Document 12/26/21 08:10 [facility] (Rec: 12/26/21 09:02 [facility] [id number]) Out-Patient Physical Therapy Visit Information Visit Information Visit Type Treatment Note Visit Note ankle fusion 10/20/21 8 1/2 weeks post-op Visit Start Time 08:15 Visit Number 2 Evaluation Information Evaluation Date 12/21/21 Precautions Precautions per protocol in EMR. PMH: Diabetic neuropathy associated with type 2 diabetes mellitus Lumbar back pain with radiculopathy affecting right lower extremity Nonallopathic lesion of lumbar region, not elsewhere classified Pain in knee region after replacement of knee joint Plantar fasciitis of left foot Rheumatoid arthritis neck pain Thoracic region somatic dysfunction Trigger finger, left ring finger Trigger finger, right ring finger carpal tunnel coleen PT-OP-B Current Condition Start: 12/20/21 16:26 Freq: Status: Active Protocol: Document 12/26/21 08:10 [facility] (Rec: 12/26/21 09:02 [facility] [id number]) Current Condition History of Current Condition Onset Date 10/20/21 Current Complaints right ankle weakness and decreased range of motion, gait difficulty History of Current Condition right ankle hardware removed and 2nd fusion. Wearing walking boot and using knee scooter. Pain currently 01/18. Has done partial weight- bearing both in and out of the boot. Saw Dr. Rowan last week; only doing light-walking wearing boot. Has gone to park a couple times using walking stick level surfaces. Prior Treatments and Tests prior right ankle fusion Future Testing and Treatments Planned Sees Dr. Jin 01/23 or 01/24 Personal Factors Other Personal Factors That May Effect history of depression, neck Therapy/Recovery pain, shoulder pain coleen, coleen wrist pain, history TKA PT-OP-F Manual Assessment Start: 12/20/21 16:26 Freq: Status: Active Protocol: Document 12/21/21 09:00 [facility] (Rec: 12/21/21 10:25 [facility] [id number]) Manual Assessments Soft Tissue Assessment Soft Tissue Mobility Assessment decreased scar mobility right PT-OP-G Mobility & Gait Start: 12/20/21 16:26 Freq: Status: Active Protocol: Document 12/21/21 09:00 [facility] (Rec: 12/21/21 10:25 [facility] [id number]) OP Mobility Evaluation Bed Mobility Rolling indep Transfers Sit to Stand indep, wearing boot OP Gait Assessment Gait Gait Assistance Required: Independent Distance (Feet) 50 Able to Maintain Weight Bearing Status Yes During Gait Assistive Devices Assistive Device Front Wheeled Walker Orthotic/Prosthetic Devices or Brace: Yes Gait Deviations General Gait Pattern Antalgic,Decreased Stride Length,Decreased Feet Clearance Factors Limiting Gait Function Factors Limiting Gait Function Decreased Strength,Limited Range of Motion,Pain PT-OP-H Neuro Start: 12/20/21 16:26 Freq: Status: Active Protocol: Document 12/21/21 09:00 [facility] (Rec: 12/21/21 10:25 [facility] [id number]) Sensation Evaluation Gross Sensation Gross Sensation Left LE Impaired,Right LE Impaired Sensation Description Numbness Comments Summary Comments peripheral neuropathy PT-OP-J Posture/Palpation/Skin Start: 12/20/21 16:26 Freq: Status: Active Protocol: Document 12/21/21 09:00 [facility] (Rec: 12/21/21 10:25 [facility] [id number]) Palpation Assessment Location right ankle Palpation Findings Edema,Soft Tissue Tightness Palpation Details decreased scar mobility right foot/ankle PT-OP-K Range of Motion Start: 12/20/21 16:26 Freq: Status: Active Protocol: Document 12/21/21 09:00 [facility] (Rec: 12/21/21 10:25 [facility] [id number]) Ankle and Foot Goniometric Range of Motion Ankle and Foot Right Active Ankle/Foot ROM WFL No Dorsiflexion with Knee Flexed 0 Plantarflexion 12 Inversion 9 Eversion 11 Comments -5 deg with knee extended left Ankle/Foot ROM WFL Yes PT-OP-M Strength Start: 12/20/21 16:26 Freq: Status: Active Protocol: Document 12/21/21 09:00 [facility] (Rec: 12/21/21 10:25 [facility] [id number]) Ankle/Foot Strength Ankle and Foot Manual Muscle Testing Right Dorsiflexion (L4) 3+ Fair+ Plantarflexion (S1) 3+ Fair+ Inversion 3+ Fair+ Eversion (S1) 3+ Fair+ Comments limited MMT due to recentl surgery Left Dorsiflexion (L4) 5 Normal Plantarflexion (S1) 5 Normal Inversion 5 Normal Eversion (S1) 5 Normal PT-OP-Q Treatments Start: 12/20/21 16:26 Freq: Status: Active Protocol: Document 12/26/21 08:10 [facility] (Rec: 12/26/21 09:02 [facility] [id number]) Cardio Equipment Recumbent Elliptical (Biodex) Duration (Minutes) 10 Resistance 1 Seat Position 13 Gait Training Gait Activity 1 Device Used FWW with platform attachments Level of Assistance verbal cues Distance/Duration 20' Treatment Focus upright posture, small steps, heel/toe gait Comments safe use of platform Self-Care/Home Management Treatment Education Patient Education Home Exercise Program,Joint Protection,Safety Caregiver Education post-op protocol, wear boot at all times when up, gradually increase weight-bearing as tolerated . PT-OP-R Modalities Start: 12/20/21 16:26 Freq: Status: Active Protocol: Document 12/21/21 09:00 [facility] (Rec: 12/21/21 10:25 [facility] [id number]) Hot Pack/Cold Pack Treatment right foot/ankle Patient Position Hooklying Treatment Duration (minutes) 10 Patient Tolerance Good Comments cryocuff PT-OP-T Assessment and Plan Start: 12/20/21 16:26 Freq: Status: Active Protocol: Document 12/26/21 08:10 [facility] (Rec: 12/26/21 09:02 [facility] [id number]) Physical Therapy Assessment Goals Three Impairment decreased ROM and strength right ankle Short Term Goal (STG) patient to be independent with HEP for purposes of ROM and strengthening right ankle STG Duration 01/18/22 Medical Research Tech Goal (LTG) Patient ROM WFL, and strength right ankle at least 4+/5 to allow him to return to usual activities LTG Duration 03/21/22 Two Impairment swelling right foot and ankle Short Term Goal (STG) Patient to demonstrate good understanding of edema reduction to include elevation , ice, compression STG Duration 01/18/22 Medical Research Tech Goal (LTG) Decrease swelling to withing 2 cm measurements of right for improved right ankle function for all usual activities LTG Duration 03/21/22 One Impairment ambulating with walking boot, antalgic gait with walker household gait Short Term Goal (STG) Progress to full weight- bearing in boot per protocol with min to no increase in pain STG Duration 01/18/22 Medical Research Tech Goal (LTG) Patient will be able to ambulate with normal shoe with minimal to no limp with least restrictive assistive device to allow him to return to walking his dog, going fishing . LTG Duration 03/21/22 Physical Therapy Plan Frequency and Duration Frequency of Treatment 2x/Week Duration of Treatment 12 weeks Plan of Care Start Date 12/21/21 Plan of Care End Date 03/21/22 Therapeutic Interventions Therapeutic Interventions Aquatic Therapy,Balance Training,Gait Training,Home Exercise Program,Manual Therapy,Neuromuscular Re- education,Patient/Caregiver Education,Self-Care/Home Management,Soft Tissue Mobilization,Taping, Therapeutic Activities, Therapeutic Exercises Modalities Cold Pack/Ice Massage Next Visit Focus/Plan Next Note Type Treatment Note
--- NOTE | 2021-12-27 10:25 | PT-OP ANOTE ---
cancelled due to hospital admission .
--- NOTE | 2022-01-01 13:55 | PT.OTN ---
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 (01/01/22) Post-traumatic osteoarthritis, right ankle and foot (01/01/22) Difficulty in walking, not elsewhere classified (01/01/22) Weakness (01/01/22) Physical Therapy Treatment Note PT-OP-A Visit Information Start: 12/20/21 16:26 Freq: Status: Active Protocol: Document 01/01/22 08:24 [facility] (Rec: 01/01/22 09:05 [facility] [id number]) Out-Patient Physical Therapy Visit Information Visit Information Visit Type Treatment Note Visit Note 9 1/2 weeks post-op. Was in hospital due to hypertensive episode related to not having medications. Now has medications, feeling better. Follow-up appointment next month. Got platform rolling walker at [employer]. Patient not wearing boot today due to reported misunderstanding of protocol. Visit Start Time 08:15 Visit Stop Time 09:10 Total Visit Minutes 55 Visit Number 3 Evaluation Information Evaluation Date 12/21/21 Precautions Precautions per protocol in EMR. PMH: Diabetic neuropathy associated with type 2 diabetes mellitus Lumbar back pain with radiculopathy affecting right lower extremity Nonallopathic lesion of lumbar region, not elsewhere classified Pain in knee region after replacement of knee joint Plantar fasciitis of left foot Rheumatoid arthritis neck pain Thoracic region somatic dysfunction Trigger finger, left ring finger Trigger finger, right ring finger carpal tunnel coleen PT-OP-B Current Condition Start: 12/20/21 16:26 Freq: Status: Active Protocol: Document 01/01/22 08:24 SAK (Rec: 01/01/22 09:05 [facility] [id number]) Current Condition History of Current Condition Onset Date 10/20/21 Current Complaints right ankle weakness and decreased range of motion, gait difficulty History of Current Condition right ankle hardware removed and 2nd fusion. Wearing walking boot and using knee scooter. Pain currently 01/18. Has done partial weight- bearing both in and out of the boot. Saw Dr. Rowan last week; only doing light-walking wearing boot. Has gone to park a couple times using walking stick level surfaces. Prior Treatments and Tests prior right ankle fusion Future Testing and Treatments Planned Sees Dr. Jin 01/23 or 01/24 Personal Factors Other Personal Factors That May Effect history of depression, neck Therapy/Recovery pain, shoulder pain coleen, coleen wrist pain, history TKA PT-OP-C Subjective Start: 12/20/21 16:26 Freq: Status: Active Protocol: Document 01/01/22 08:24 [facility] (Rec: 01/01/22 13:55 [facility] [id number]) OP-PT Subjective Patient Comments Patient Comments 9 1/2 weeks post-op. Was in hospital due to hypertensive episode related to not having medications. Now has medications, feeling better. Follow-up appointment next month with surgeon. Got platform rolling walker at [facility]; brand new. Patient not wearing boot today due to reported misunderstanding of protocol/ forgot [ End ] PT-OP-F Manual Assessment Start: 12/20/21 16:26 Freq: Status: Active Protocol: Document 12/21/21 09:00 [facility] (Rec: 12/21/21 10:25 [facility] [id number]) Manual Assessments Soft Tissue Assessment Soft Tissue Mobility Assessment decreased scar mobility right PT-OP-G Mobility & Gait Start: 12/20/21 16:26 Freq: Status: Active Protocol: Document 12/21/21 09:00 [facility] (Rec: 12/21/21 10:25 [facility] [id number]) OP Mobility Evaluation Bed Mobility Rolling indep Transfers Sit to Stand indep, wearing boot OP Gait Assessment Gait Gait Assistance Required: Independent Distance (Feet) 50 Able to Maintain Weight Bearing Status Yes During Gait Assistive Devices Assistive Device Front Wheeled Walker Orthotic/Prosthetic Devices or Brace: Yes Gait Deviations General Gait Pattern Antalgic,Decreased Stride Length,Decreased Feet Clearance Factors Limiting Gait Function Factors Limiting Gait Function Decreased Strength,Limited Range of Motion,Pain PT-OP-H Neuro Start: 12/20/21 16:26 Freq: Status: Active Protocol: Document 12/21/21 09:00 [facility] (Rec: 12/21/21 10:25 [facility] [id number]) Sensation Evaluation Gross Sensation Gross Sensation Left LE Impaired,Right LE Impaired Sensation Description Numbness Comments Summary Comments peripheral neuropathy PT-OP-J Posture/Palpation/Skin Start: 12/20/21 16:26 Freq: Status: Active Protocol: Document 12/21/21 09:00 [facility] (Rec: 12/21/21 10:25 [facility] [id number]) Palpation Assessment Location right ankle Palpation Findings Edema,Soft Tissue Tightness Palpation Details decreased scar mobility right foot/ankle PT-OP-K Range of Motion Start: 02/09/22 16:26 Freq: Status: Active Protocol: Document 12/21/21 09:00 [facility] (Rec: 12/21/21 10:25 [facility] [id number]) Ankle and Foot Goniometric Range of Motion Ankle and Foot Right Active Ankle/Foot ROM WFL No Dorsiflexion with Knee Flexed 0 Plantarflexion 12 Inversion 9 Eversion 11 Comments -5 deg with knee extended left Ankle/Foot ROM WFL Yes PT-OP-M Strength Start: 12/20/21 16:26 Freq: Status: Active Protocol: Document 12/21/21 09:00 [facility] (Rec: 12/21/21 10:25 [facility] [id number]) Ankle/Foot Strength Ankle and Foot Manual Muscle Testing Right Dorsiflexion (L4) 3+ Fair+ Plantarflexion (S1) 3+ Fair+ Inversion 3+ Fair+ Eversion (S1) 3+ Fair+ Comments limited MMT due to recentl surgery Left Dorsiflexion (L4) 5 Normal Plantarflexion (S1) 5 Normal Inversion 5 Normal Eversion (S1) 5 Normal PT-OP-Q Treatments Start: 12/20/21 16:26 Freq: Status: Active Protocol: Document 01/01/22 08:24 [facility] (Rec: 01/01/22 09:05 [facility] [id number]) Cardio Equipment Recumbent Elliptical ([employer]) Duration (Minutes) 10 Resistance 1 Seat Position 13 Other shoe Therapeutic Exercises Supine Exercises SAQ Reps/Minutes 10x SLR Reps/Minutes 8x Comments cues for core activation/stab HC stretch Reps/Minutes 2x30 ankle pumps Reps/Minutes 10x Sidelying Exercises hip abduction Reps/Minutes 5x Comments cues for alignment, core stab Sitting Exercises BAPS Sitting Exercise Name df,pf, inv,ev Equipment Used L1 Reps/Minutes 10x ea Comments gentle, pain-free Gait Training Gait Activity 2 Description pre-gait weight shift with scale for %WB Device Used parallel bars, shoe Level of Assistance verbal cues, visual cues of scale Treatment Focus 25% weight-bearing Comments use of wood block for left LE for equal height related to scale under right LE. Brief practice then no further gait training due to patient not wearing boot today. 4WW with platform height raised up for patient height. Manual Therapy Treatment Taping right foot and ankle Treatment Focus edema reduction Type of Tape Kinesio Tape Skin Inspection intact Comments 2 fan strips + anchoring strip along ends Self-Care/Home Management Treatment Education Patient Education Home Exercise Program,Joint Protection,Safety Caregiver Education Reviewed post-op protocol, wear boot at all times when up , gradually increase weight- bearing as tolerated . PT-OP-R Modalities Start: 12/20/21 16:26 Freq: Status: Active Protocol: Document 12/26/21 08:10 [facility] (Rec: 12/26/21 16:48 [facility] [id number]) Hot Pack/Cold Pack Treatment right foot/ankle Patient Position Hooklying Treatment Duration (minutes) 10 Patient Tolerance Good Comments cryocuff PT-OP-T Assessment and Plan Start: 12/20/21 16:26 Freq: Status: Active Protocol: Document 01/01/22 08:24 [facility] (Rec: 01/01/22 09:05 [facility] [id number]) Physical Therapy Assessment Goals Three Impairment decreased ROM and strength right ankle Short Term Goal (STG) patient to be independent with HEP for purposes of ROM and strengthening right ankle STG Duration 01/18/22 Correction Goal (LTG) Patient ROM WFL, and strength right ankle at least 4+/5 to allow him to return to usual activities LTG Duration 03/21/22 Two Impairment swelling right foot and ankle Short Term Goal (STG) Patient to demonstrate good understanding of edema reduction to include elevation , ice, compression STG Duration 01/18/22 Cartoon Artist Goal (LTG) Decrease swelling to withing 2 cm measurements of right for improved right ankle function for all usual activities LTG Duration 03/21/22 One Impairment ambulating with walking boot, antalgic gait with walker household gait Short Term Goal (STG) Progress to full weight- bearing in boot per protocol with min to no increase in pain STG Duration 01/18/22 Correction Goal (LTG) Patient will be able to ambulate with normal shoe with minimal to no limp with least restrictive assistive device to allow him to return to walking his dog, going fishing . LTG Duration 03/21/22 Assessment Summary Assessment Patient not wearing boot as instructed last session to be worn at all times when standing or walking; states he misunderstood/forgot and is wearing his shoe today. Has been wearing his shoe at home, boot in the community. Reviewed post-op protocol with him, importance of wearing post-op boot when standing or walking, recommending 50% WB this week. Patient taken back to his vehicle by aide in w/c to avoid further gait without brace. Physical Therapy Plan Frequency and Duration Frequency of Treatment 2x/Week Duration of Treatment 12 weeks Plan of Care Start Date 12/21/21 Plan of Care End Date 03/21/22 Therapeutic Interventions Therapeutic Interventions Aquatic Therapy,Balance Training,Gait Training,Home Exercise Program,Manual Therapy,Neuromuscular Re- education,Patient/Caregiver Education,Self-Care/Home Management,Soft Tissue Mobilization,Taping, Therapeutic Activities, Therapeutic Exercises Modalities Cold Pack/Ice Massage Next Visit Focus/Plan Next Visit Plan Trial aquatic PT with emphasis on gait training with 25-50% weight-bearing per protocol, gentle strengthening,ROM, and balance
--- NOTE | 2022-01-03 16:23 | PT.OTN ---
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 (01/03/22) Post-traumatic osteoarthritis, right ankle and foot (01/03/22) Difficulty in walking, not elsewhere classified (01/03/22) Weakness (01/03/22) Physical Therapy Treatment Note PT-OP-A Visit Information Start: 12/20/21 16:26 Freq: Status: Active Protocol: Document 01/03/22 16:14 [facility] (Rec: 01/03/22 16:23 [facility] [id number]) Out-Patient Physical Therapy Visit Information Visit Information Visit Type Treatment Note Visit Note 9 1/2 weeks post-op. Visit Start Time 08:15 Visit Stop Time 09:10 Total Visit Minutes 55 Visit Number 4 Evaluation Information Evaluation Date 12/21/21 Precautions Precautions per protocol in EMR. PMH: Diabetic neuropathy associated with type 2 diabetes mellitus Lumbar back pain with radiculopathy affecting right lower extremity Nonallopathic lesion of lumbar region, not elsewhere classified Pain in knee region after replacement of knee joint Plantar fasciitis of left foot Rheumatoid arthritis neck pain Thoracic region somatic dysfunction Trigger finger, left ring finger Trigger finger, right ring finger carpal tunnel coleen PT-OP-B Current Condition Start: 12/20/21 16:26 Freq: Status: Active Protocol: Document 01/01/22 08:24 [facility] (Rec: 01/01/22 09:05 [facility] [id number]) Current Condition History of Current Condition Onset Date 10/20/21 Current Complaints right ankle weakness and decreased range of motion, gait difficulty History of Current Condition right ankle hardware removed and 2nd fusion. Wearing walking boot and using knee scooter. Pain currently 01/18. Has done partial weight- bearing both in and out of the boot. Saw Dr. Rowan last week; only doing light-walking wearing boot. Has gone to park a couple times using walking stick level surfaces. Prior Treatments and Tests prior right ankle fusion Future Testing and Treatments Planned Sees Dr. Jin 01/23 or 01/24 Personal Factors Other Personal Factors That May Effect history of depression, neck Therapy/Recovery pain, shoulder pain coleen, coleen wrist pain, history TKA PT-OP-C Subjective Start: 12/20/21 16:26 Freq: Status: Active Protocol: Document 01/03/22 16:14 [facility] (Rec: 01/03/22 16:23 [facility] [id number]) OP-PT Subjective Patient Comments Patient Comments To aquatic PT wearing boot all the way to aquatic lift, using 4WW platform walker. Reports has been wearing walking boot at all times when up as instructed, has been doing 25% weight-bearing. Reminded he can now do 50% weight-bearing in boot. denies pain PT-OP-F Manual Assessment Start: 12/20/21 16:26 Freq: Status: Active Protocol: Document 12/21/21 09:00 [facility] (Rec: 12/21/21 10:25 [facility] [id number]) Manual Assessments Soft Tissue Assessment Soft Tissue Mobility Assessment decreased scar mobility right PT-OP-G Mobility & Gait Start: 12/20/21 16:26 Freq: Status: Active Protocol: Document 12/21/21 09:00 [facility] (Rec: 12/21/21 10:25 [facility] [id number]) OP Mobility Evaluation Bed Mobility Rolling indep Transfers Sit to Stand indep, wearing boot OP Gait Assessment Gait Gait Assistance Required: Independent Distance (Feet) 50 Able to Maintain Weight Bearing Status Yes During Gait Assistive Devices Assistive Device Front Wheeled Walker Orthotic/Prosthetic Devices or Brace: Yes Gait Deviations General Gait Pattern Antalgic,Decreased Stride Length,Decreased Feet Clearance Factors Limiting Gait Function Factors Limiting Gait Function Decreased Strength,Limited Range of Motion,Pain PT-OP-H Neuro Start: 12/20/21 16:26 Freq: Status: Active Protocol: Document 12/21/21 09:00 [facility] (Rec: 12/21/21 10:25 [facility] [id number]) Sensation Evaluation Gross Sensation Gross Sensation Left LE Impaired,Right LE Impaired Sensation Description Numbness Comments Summary Comments peripheral neuropathy PT-OP-J Posture/Palpation/Skin Start: 12/20/21 16:26 Freq: Status: Active Protocol: Document 12/21/21 09:00 [facility] (Rec: 12/21/21 10:25 [facility] [id number]) Palpation Assessment Location right ankle Palpation Findings Edema,Soft Tissue Tightness Palpation Details decreased scar mobility right foot/ankle PT-OP-K Range of Motion Start: 12/20/21 16:26 Freq: Status: Active Protocol: Document 12/21/21 09:00 [facility] (Rec: 12/21/21 10:25 [facility] [id number]) Ankle and Foot Goniometric Range of Motion Ankle and Foot Right Active Ankle/Foot ROM WFL No Dorsiflexion with Knee Flexed 0 Plantarflexion 12 Inversion 9 Eversion 11 Comments -5 deg with knee extended left Ankle/Foot ROM WFL Yes PT-OP-M Strength Start: 12/20/21 16:26 Freq: Status: Active Protocol: Document 12/21/21 09:00 [facility] (Rec: 12/21/21 10:25 [facility] [id number]) Ankle/Foot Strength Ankle and Foot Manual Muscle Testing Right Dorsiflexion (L4) 3+ Fair+ Plantarflexion (S1) 3+ Fair+ Inversion 3+ Fair+ Eversion (S1) 3+ Fair+ Comments limited MMT due to recentl surgery Left Dorsiflexion (L4) 5 Normal Plantarflexion (S1) 5 Normal Inversion 5 Normal Eversion (S1) 5 Normal PT-OP-Q Treatments Start: 12/20/21 16:26 Freq: Status: Active Protocol: Document 01/01/22 08:24 [facility] (Rec: 01/01/22 09:05 [facility] [id number]) Cardio Equipment Recumbent Elliptical ([employer] Duration (Minutes) 10 Resistance 1 Seat Position 13 Other shoe Therapeutic Exercises Supine Exercises SAQ Reps/Minutes 10x SLR Reps/Minutes 8x Comments cues for core activation/stab HC stretch Reps/Minutes 2x30 ankle pumps Reps/Minutes 10x Sidelying Exercises hip abduction Reps/Minutes 5x Comments cues for alignment, core stab Sitting Exercises BAPS Sitting Exercise Name df,pf, inv,ev Equipment Used L1 Reps/Minutes 10x ea Comments gentle, pain-free Gait Training Gait Activity 2 Description pre-gait weight shift with scale for %WB Device Used parallel bars, shoe Level of Assistance verbal cues, visual cues of scale Treatment Focus 25% weight-bearing Comments use of wood block for left LE for equal height related to scale under right LE. Brief practice then no further gait training due to patient not wearing boot today. 4WW with platform height raised up for patient height. Manual Therapy Treatment Taping right foot and ankle Treatment Focus edema reduction Type of Tape Kinesio Tape Skin Inspection intact Comments 2 fan strips + anchoring strip along ends Self-Care/Home Management Treatment Education Patient Education Home Exercise Program,Joint Protection,Safety Caregiver Education Reviewed post-op protocol, wear boot at all times when up , gradually increase weight- bearing as tolerated . PT-OP-R Modalities Start: 12/20/21 16:26 Freq: Status: Active Protocol: Document 12/26/21 08:10 [facility] (Rec: 12/26/21 16:48 [facility] [id number]) Hot Pack/Cold Pack Treatment right foot/ankle Patient Position Hooklying Treatment Duration (minutes) 10 Patient Tolerance Good Comments cryocuff PT-OP-S Aquatic Treatment Start: 12/20/21 16:26 Freq: Status: Active Protocol: Document 01/03/22 16:14 [facility] (Rec: 01/03/22 16:23 [facility] [id number]) Aquatics Treatment Pool Entry/Exit Pool Entry/Exit Method Lift Assistance Minimal Assistance Water Walking forward Water Level Chest Level Walking Equipment Large Noodle Level of Assistance Verbal Cues Sideways Water Level Chest Level Level of Assistance Verbal Cues Comments large noodle Lower Extremity Exercises knee flex/ext Body Position Standing Water Level Chest Level Reps/Duration 10x2 ankle df/pf Body Position Standing Water Level Chest Level Reps/Duration 10x2 Upper Extremity Exercises should hor ab/ad Water Level Chest Level Reps/Duration 10x Comments cues for balance on both feet Spinal Exercises DKTC Body Position Standing Water Level [place] Equipment [place] Float Comments med barbells [place] Activities [place] Activities Bicycle,Cross [place],Hip Abduction/Adduction Equipment lower [place] float Duration 22 min Comments slow speed, encouraging full available ROM at ankle Swim Strokes Flutter Other Equipment Used lower [place] float Laps/Duration 5' Comments gentle PT-OP-T Assessment and Plan Start: 12/20/21 16:26 Freq: Status: Active Protocol: Document 01/03/22 16:14 [facility] (Rec: 01/03/22 16:23 [facility] [id number]) Physical Therapy Assessment Rehab Potential Rehabilitation Potential Good Evaluation Complexity Number of Personal Factors/Comorbidities 3 or More Number of Body Systems Impaired 3 Clinical Presentation at Evaluation Evolving Impairments Impairments Gait,ROM,Soft Tissue Mobility, Strength Goals Three Impairment decreased ROM and strength right ankle Short Term Goal (STG) patient to be independent with HEP for purposes of ROM and strengthening right ankle STG Duration 01/18/22 Usp Goal (LTG) Patient ROM WFL, and strength right ankle at least 4+/5 to allow him to return to usual activities LTG Duration 03/21/22 Two Impairment swelling right foot and ankle Short Term Goal (STG) Patient to demonstrate good understanding of edema reduction to include elevation , ice, compression STG Duration 01/18/22 Regulated Program Manager Goal (LTG) Decrease swelling to withing 2 cm measurements of right for improved right ankle function for all usual activities LTG Duration 03/21/22 One Impairment ambulating with walking boot, antalgic gait with walker household gait Short Term Goal (STG) Progress to full weight- bearing in boot per protocol with min to no increase in pain STG Duration 01/18/22 Usp Goal (LTG) Patient will be able to ambulate with normal shoe with minimal to no limp with least restrictive assistive device to allow him to return to walking his dog, going fishing . LTG Duration 03/21/22 Assessment Summary Assessment Following precautions well, denies pain. Good tolerance for gentle aquatic therapy primarily in deep water plus chest level at 25% weight- bearing. Physical Therapy Plan Frequency and Duration Frequency of Treatment 2x/Week Duration of Treatment 12 weeks Plan of Care Start Date 12/21/21 Plan of Care End Date 03/21/22 Therapeutic Interventions Therapeutic Interventions Aquatic Therapy,Balance Training,Gait Training,Home Exercise Program,Manual Therapy,Neuromuscular Re- education,Patient/Caregiver Education,Self-Care/Home Management,Soft Tissue Mobilization,Taping, Therapeutic Activities, Therapeutic Exercises Modalities Cold Pack/Ice Massage
--- NOTE | 2022-01-09 09:02 | PT.OTN ---
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 (01/09/22) Post-traumatic osteoarthritis, right ankle and foot (01/09/22) Difficulty in walking, not elsewhere classified (01/09/22) Weakness (01/09/22) Physical Therapy Treatment Note PT-OP-A Visit Information Start: 12/20/21 16:26 Freq: Status: Active Protocol: Document 01/09/22 08:13 SAK (Rec: 01/09/22 09:01 SAK [id number]) Out-Patient Physical Therapy Visit Information Visit Information Visit Type Treatment Note Visit Note 10 1/2 weeks post-op Visit Start Time 08:14 Visit Stop Time 09:10 Total Visit Minutes 56 Visit Number 5 Evaluation Information Evaluation Date 12/21/21 Precautions Precautions per protocol in EMR. PMH: Diabetic neuropathy associated with type 2 diabetes mellitus Lumbar back pain with radiculopathy affecting right lower extremity Nonallopathic lesion of lumbar region, not elsewhere classified Pain in knee region after replacement of knee joint Plantar fasciitis of left foot Rheumatoid arthritis neck pain Thoracic region somatic dysfunction Trigger finger, left ring finger Trigger finger, right ring finger carpal tunnel coleen PT-OP-B Current Condition Start: 12/20/21 16:26 Freq: Status: Active Protocol: Document 01/01/22 08:24 SAK (Rec: 01/01/22 09:05 SAK [id number]) Current Condition History of Current Condition Onset Date 10/20/21 Current Complaints right ankle weakness and decreased range of motion, gait difficulty History of Current Condition right ankle hardware removed and 2nd fusion. Wearing walking boot and using knee scooter. Pain currently 01/18. Has done partial weight- bearing both in and out of the boot. Saw Dr. Rowan last week; only doing light-walking wearing boot. Has gone to park a couple times using walking stick level surfaces. Prior Treatments and Tests prior right ankle fusion Future Testing and Treatments Planned Sees Dr. Jin 01/23 or 01/24 Personal Factors Other Personal Factors That May Effect history of depression, neck Therapy/Recovery pain, shoulder pain coleen, coleen wrist pain, history TKA PT-OP-C Subjective Start: 12/20/21 16:26 Freq: Status: Active Protocol: Document 01/09/22 08:13 SAK (Rec: 01/09/22 09:01 SAK [id number]) OP-PT Subjective Patient Comments Patient Comments Patient comes to PT not wearing his boot despite firm instruction including written per protocol to wear boot at all times when up. States he hasn't been following that guideline, forgot. Denies pain. Has been doing gentle stretching of foot and ankle without pain. Sees Dr. Rowan 01/24/22 (approx 12 weeks) PT-OP-F Manual Assessment Start: 12/20/21 16:26 Freq: Status: Active Protocol: Document 12/21/21 09:00 [facility] (Rec: 12/21/21 10:25 [facility] [id number]) Manual Assessments Soft Tissue Assessment Soft Tissue Mobility Assessment decreased scar mobility right PT-OP-G Mobility & Gait Start: 12/20/21 16:26 Freq: Status: Active Protocol: Document 12/21/21 09:00 [facility] (Rec: 12/21/21 10:25 [facility] [id number]) OP Mobility Evaluation Bed Mobility Rolling indep Transfers Sit to Stand indep, wearing boot OP Gait Assessment Gait Gait Assistance Required: Independent Distance (Feet) 50 Able to Maintain Weight Bearing Status Yes During Gait Assistive Devices Assistive Device Front Wheeled Walker Orthotic/Prosthetic Devices or Brace: Yes Gait Deviations General Gait Pattern Antalgic,Decreased Stride Length,Decreased Feet Clearance Factors Limiting Gait Function Factors Limiting Gait Function Decreased Strength,Limited Range of Motion,Pain PT-OP-H Neuro Start: 12/20/21 16:26 Freq: Status: Active Protocol: Document 12/21/21 09:00 [facility] (Rec: 12/21/21 10:25 [facility] [id number]) Sensation Evaluation Gross Sensation Gross Sensation Left LE Impaired,Right LE Impaired Sensation Description Numbness Comments Summary Comments peripheral neuropathy PT-OP-J Posture/Palpation/Skin Start: 12/20/21 16:26 Freq: Status: Active Protocol: Document 12/21/21 09:00 [facility] (Rec: 12/21/21 10:25 [facility] [id number]) Palpation Assessment Location right ankle Palpation Findings Edema,Soft Tissue Tightness Palpation Details decreased scar mobility right foot/ankle PT-OP-K Range of Motion Start: 12/20/21 16:26 Freq: Status: Active Protocol: Document 12/21/21 09:00 [facility] (Rec: 12/21/21 10:25 [facility] [id number]) Ankle and Foot Goniometric Range of Motion Ankle and Foot Right Active Ankle/Foot ROM WFL No Dorsiflexion with Knee Flexed 0 Plantarflexion 12 Inversion 9 Eversion 11 Comments -5 deg with knee extended left Ankle/Foot ROM WFL Yes PT-OP-M Strength Start: 12/20/21 16:26 Freq: Status: Active Protocol: Document 12/21/21 09:00 [facility] (Rec: 12/21/21 10:25 [facility] [id number]) Ankle/Foot Strength Ankle and Foot Manual Muscle Testing Right Dorsiflexion (L4) 3+ Fair+ Plantarflexion (S1) 3+ Fair+ Inversion 3+ Fair+ Eversion (S1) 3+ Fair+ Comments limited MMT due to recentl surgery Left Dorsiflexion (L4) 5 Normal Plantarflexion (S1) 5 Normal Inversion 5 Normal Eversion (S1) 5 Normal PT-OP-Q Treatments Start: 12/20/21 16:26 Freq: Status: Active Protocol: Document 01/09/22 08:13 [facility] (Rec: 01/09/22 09:01 [facility] [id number]) Cardio Equipment Recumbent Elliptical ([employer]) Duration (Minutes) 10 Resistance 1 Seat Position 13 Other shoe Therapeutic Exercises Supine Exercises bridge Reps/Minutes 10x LAQ Supine Exercise Name knees on bolster for no WB thru right LE Reps/Minutes 10x SAQ Reps/Minutes 10x SLR Reps/Minutes 8x Comments cues for core activation/stab ankle pumps Reps/Minutes 10x Sidelying Exercises hip abduction Reps/Minutes 5x Comments cues for alignment, core stab Sitting Exercises BAPS Sitting Exercise Name df,pf, inv,ev Equipment Used L1 Reps/Minutes 10x ea Comments gentle, pain-free Gait Training Gait Activity 2 Description Gait training with boot, WBAT Device Used parallel bars, trekking poles, boot Level of Assistance verbal cues Treatment Focus may be 100% WB at this time per protocol Manual Therapy Treatment Taping right foot and ankle Treatment Focus edema reduction Type of Tape Kinesio Tape Skin Inspection intact Comments 2 fan strips + anchoring strip along ends Self-Care/Home Management Treatment Education Patient Education Home Exercise Program,Joint Protection,Safety Caregiver Education Reviewed post-op protocol, wear boot at all times when up , may be full weight-bearing per protocol as tolerated. Progress distance slowly. PT-OP-R Modalities Start: 12/20/21 16:26 Freq: Status: Active Protocol: Document 01/09/22 08:13 [facility] (Rec: 01/09/22 09:01 [facility] [id number]) Hot Pack/Cold Pack Treatment right foot/ankle Patient Position Hooklying Treatment Duration (minutes) 10 Patient Tolerance Good Comments cryocuff PT-OP-S Aquatic Treatment Start: 12/20/21 16:26 Freq: Status: Active Protocol: Document 01/03/22 16:14 [facility] (Rec: 01/03/22 16:23 [facility] [id number]) Aquatics Treatment Pool Entry/Exit Pool Entry/Exit Method Lift Assistance Minimal Assistance Water Walking forward Water Level Chest Level Walking Equipment Large Noodle Level of Assistance Verbal Cues Sideways Water Level Chest Level Level of Assistance Verbal Cues Comments large noodle Lower Extremity Exercises knee flex/ext Body Position Standing Water Level Chest Level Reps/Duration 10x2 ankle df/pf Body Position Standing Water Level Chest Level Reps/Duration 10x2 Upper Extremity Exercises should hor ab/ad Water Level Chest Level Reps/Duration 10x Comments cues for balance on both feet Spinal Exercises DKTC Body Position Standing Water Level [place] Equipment [place] Float Comments med barbells [place] Activities [place] Activities Bicycle,Cross [place],Hip Abduction/Adduction Equipment chinik float Duration 22 min Comments slow speed, encouraging full available ROM at ankle Swim Strokes Flutter Other Equipment Used [place] float Laps/Duration 5' Comments gentle PT-OP-T Assessment and Plan Start: 12/20/21 16:26 Freq: Status: Active Protocol: Document 01/09/22 08:13 [facility] (Rec: 01/09/22 09:01 [facility] [id number]) Physical Therapy Assessment Goals Three Impairment decreased ROM and strength right ankle Short Term Goal (STG) patient to be independent with HEP for purposes of ROM and strengthening right ankle STG Duration 01/18/22 [facility] Goal (LTG) Patient ROM WFL, and strength right ankle at least 4+/5 to allow him to return to usual activities LTG Duration 03/21/22 Two Impairment swelling right foot and ankle Short Term Goal (STG) Patient to demonstrate good understanding of edema reduction to include elevation , ice, compression STG Duration 01/18/22 [facility] Goal (LTG) Decrease swelling to withing 2 cm measurements of right for improved right ankle function for all usual activities LTG Duration 03/21/22 One Impairment ambulating with walking boot, antalgic gait with walker household gait Short Term Goal (STG) Progress to full weight- bearing in boot per protocol with min to no increase in pain STG Duration 01/18/22 [facility] Goal (LTG) Patient will be able to ambulate with normal shoe with minimal to no limp with least restrictive assistive device to allow him to return to walking his dog, going fishing . LTG Duration 03/21/22 Assessment Summary Assessment Patient now able to be full weight-bearing in his boot per protocol. Continue hip, knee , and core strengthening. At 12 weeks can start strength training and balance training. Physical Therapy Plan Frequency and Duration Frequency of Treatment 2x/Week Duration of Treatment 12 weeks Plan of Care Start Date 12/21/21 Plan of Care End Date 03/21/22 Therapeutic Interventions Therapeutic Interventions Aquatic Therapy,Balance Training,Gait Training,Home Exercise Program,Manual Therapy,Neuromuscular Re- education,Patient/Caregiver Education,Self-Care/Home Management,Soft Tissue Mobilization,Taping, Therapeutic Activities, Therapeutic Exercises Modalities Cold Pack/Ice Massage Next Visit Focus/Plan Next Note Type Treatment Note Next Visit Plan Continue to progress
--- NOTE | 2022-01-10 14:51 | PT.OTN ---
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 (01/10/22) Post-traumatic osteoarthritis, right ankle and foot (01/10/22) Difficulty in walking, not elsewhere classified (01/10/22) Weakness (01/10/22) Physical Therapy Treatment Note PT-OP-A Visit Information Start: 12/20/21 16:26 Freq: Status: Active Protocol: Document 01/10/22 14:36 LJ (Rec: 01/10/22 14:51 LJ [id number]) Out-Patient Physical Therapy Visit Information Visit Information Visit Type Aquatic Treatment Note Visit Start Time 10:15 Visit Stop Time 11:45 Total Visit Minutes 45 Visit Number 6 Number of [employer] CLERK Visits 1 Evaluation Information Evaluation Date 12/21/21 Precautions Precautions per protocol in EMR. PMH: Diabetic neuropathy associated with type 2 diabetes mellitus Lumbar back pain with radiculopathy affecting right lower extremity Nonallopathic lesion of lumbar region, not elsewhere classified Pain in knee region after replacement of knee joint Plantar fasciitis of left foot Rheumatoid arthritis neck pain Thoracic region somatic dysfunction Trigger finger, left ring finger Trigger finger, right ring finger carpal tunnel coleen PT-OP-B Current Condition Start: 12/20/21 16:26 Freq: Status: Active Protocol: Document 01/01/22 08:24 SAK (Rec: 01/01/22 09:05 SAK [id number]) Current Condition History of Current Condition Onset Date 10/20/21 Current Complaints right ankle weakness and decreased range of motion, gait difficulty History of Current Condition right ankle hardware removed and 2nd fusion. Wearing walking boot and using knee scooter. Pain currently 10. Has done partial weight- bearing both in and out of the boot. Saw Dr. Rowan last week; only doing light-walking wearing boot. Has gone to park a couple times using walking stick level surfaces. Prior Treatments and Tests prior right ankle fusion Future Testing and Treatments Planned Sees Dr. Jin 01/23 or 01/24 Personal Factors Other Personal Factors That May Effect history of depression, neck Therapy/Recovery pain, shoulder pain coleen, coleen wrist pain, history TKA PT-OP-C Subjective Start: 12/20/21 16:26 Freq: Status: Active Protocol: Document 01/10/22 14:36 [facility] (Rec: 01/10/22 14:51 LJ [id number]) OP-PT Subjective Patient Comments Patient Comments Pt wore boot to therapy this session but removed it before walking to the lift chair ~10' . States he has been walking on RLE. He states he doesn't walk on it much but has to get around. He reports no swelling and being strict with a stretching routine. PT-OP-F Manual Assessment Start: 12/20/21 16:26 Freq: Status: Active Protocol: Document 12/21/21 09:00 [facility] (Rec: 12/21/21 10:25 [facility] [id number]) Manual Assessments Soft Tissue Assessment Soft Tissue Mobility Assessment decreased scar mobility right PT-OP-G Mobility & Gait Start: 12/20/21 16:26 Freq: Status: Active Protocol: Document 12/21/21 09:00 [facility] (Rec: 12/21/21 10:25 [facility] [id number]) OP Mobility Evaluation Bed Mobility Rolling indep Transfers Sit to Stand indep, wearing boot OP Gait Assessment Gait Gait Assistance Required: Independent Distance (Feet) 50 Able to Maintain Weight Bearing Status Yes During Gait Assistive Devices Assistive Device Front Wheeled Walker Orthotic/Prosthetic Devices or Brace: Yes Gait Deviations General Gait Pattern Antalgic,Decreased Stride Length,Decreased Feet Clearance Factors Limiting Gait Function Factors Limiting Gait Function Decreased Strength,Limited Range of Motion,Pain PT-OP-H Neuro Start: 12/20/21 16:26 Freq: Status: Active Protocol: Document 12/21/21 09:00 [facility] (Rec: 12/21/21 10:25 [facility] [id number]) Sensation Evaluation Gross Sensation Gross Sensation Left LE Impaired,Right LE Impaired Sensation Description Numbness Comments Summary Comments peripheral neuropathy PT-OP-J Posture/Palpation/Skin Start: 12/20/21 16:26 Freq: Status: Active Protocol: Document 12/21/21 09:00 [facility] (Rec: 12/21/21 10:25 [facility] [id number]) Palpation Assessment Location right ankle Palpation Findings Edema,Soft Tissue Tightness Palpation Details decreased scar mobility right foot/ankle PT-OP-K Range of Motion Start: 12/20/21 16:26 Freq: Status: Active Protocol: Document 12/21/21 09:00 [facility] (Rec: 12/21/21 10:25 [facility] [id number]) Ankle and Foot Goniometric Range of Motion Ankle and Foot Right Active Ankle/Foot ROM WFL No Dorsiflexion with Knee Flexed 0 Plantarflexion 12 Inversion 9 Eversion 11 Comments -5 deg with knee extended left Ankle/Foot ROM WFL Yes PT-OP-M Strength Start: 12/20/21 16:26 Freq: Status: Active Protocol: Document 12/21/21 09:00 [facility] (Rec: 12/21/21 10:25 [facility] [id number]) Ankle/Foot Strength Ankle and Foot Manual Muscle Testing Right Dorsiflexion (L4) 3+ Fair+ Plantarflexion (S1) 3+ Fair+ Inversion 3+ Fair+ Eversion (S1) 3+ Fair+ Comments limited MMT due to recentl surgery Left Dorsiflexion (L4) 5 Normal Plantarflexion (S1) 5 Normal Inversion 5 Normal Eversion (S1) 5 Normal PT-OP-Q Treatments Start: 12/20/21 16:26 Freq: Status: Active Protocol: Document 01/09/22 08:13 [facility] (Rec: 01/09/22 09:01 [facility] [id number]) Cardio Equipment Recumbent Elliptical ([place]) Duration (Minutes) 10 Resistance 1 Seat Position 13 Other shoe Therapeutic Exercises Supine Exercises bridge Reps/Minutes 10x LAQ Supine Exercise Name knees on bolster for no WB thru right LE Reps/Minutes 10x SAQ Reps/Minutes 10x SLR Reps/Minutes 8x Comments cues for core activation/stab ankle pumps Reps/Minutes 10x Sidelying Exercises hip abduction Reps/Minutes 5x Comments cues for alignment, core stab Sitting Exercises BAPS Sitting Exercise Name df,pf, inv,ev Equipment Used L1 Reps/Minutes 10x ea Comments gentle, pain-free Gait Training Gait Activity 2 Description Gait training with boot, WBAT Device Used parallel bars, trekking poles, boot Level of Assistance verbal cues Treatment Focus may be 100% WB at this time per protocol Manual Therapy Treatment Taping right foot and ankle Treatment Focus edema reduction Type of Tape Kinesio Tape Skin Inspection intact Comments 2 fan strips + anchoring strip along ends Self-Care/Home Management Treatment Education Patient Education Home Exercise Program,Joint Protection,Safety Caregiver Education Reviewed post-op protocol, wear boot at all times when up , may be full weight-bearing per protocol as tolerated. Progress distance slowly. PT-OP-R Modalities Start: 12/20/21 16:26 Freq: Status: Active Protocol: Document 01/09/22 08:13 [facility] (Rec: 01/09/22 09:01 SAK [id number]) Hot Pack/Cold Pack Treatment right foot/ankle Patient Position Hooklying Treatment Duration (minutes) 10 Patient Tolerance Good Comments cryocuff PT-OP-S Aquatic Treatment Start: 12/20/21 16:26 Freq: Status: Active Protocol: Document 01/10/22 14:36 [facility] (Rec: 01/10/22 14:51 [id number]) Aquatics Treatment Pool Entry/Exit Pool Entry/Exit Method Lift Assistance Minimal Assistance Water Walking frward holding lg BB at hip level Water Level Chest Level Level of Assistance Verbal Cues Comments cues for shoulder depression forward Water Level Chest Level Walking Equipment belt, sm noodle Level of Assistance Verbal Cues Backwards Water Level Chest Level Walking Equipment belt, sm noodle Level of Assistance Verbal Cues Comments forward BS Sideways Water Level Chest Level Walking Equipment belt, sm noodle Level of Assistance Verbal Cues Lower Extremity Exercises knee flex/ext Body Position Standing Water Level Chest Level Equipment belt, sm noodle Reps/Duration 10x2 ankle df/pf Body Position Standing Water Level Chest Level Reps/Duration 10x2 Upper Extremity Exercises should hor ab/ad Water Level Chest Level Reps/Duration 10x Comments cues for balance on both feet Unilateral pull downs Body Position Standing Water Level Chest Level Equipment lg BB Reps/Duration 8x2 bilat Comments cues for core stabilization lat pull downs Details braced at wall Body Position Sitting Water Level Chest Level Equipment lg BB Reps/Duration 8 Comments core stabilization Spinal Exercises trunk rotation Details braced at wall Body Position Sitting Water Level Neck Level Equipment Lg BB Reps/Duration 8 B Comments submerging noodle with oblique pull down [place] Activities [place] Activities Bicycle,Cross [place],Hip Abduction/Adduction Other Activities abdominal pull down corner pendulum hips 90 degrees reclining torso rotation Equipment belt, sm noodle Duration 25 min Comments slow speed, encouraging full available ROM at ankle Swim Strokes Flutter Other Equipment Used [place] float Laps/Duration 5' Comments gentle PT-OP-T Assessment and Plan Start: 12/20/21 16:26 Freq: Status: Active Protocol: Document 01/10/22 14:36 [facility] (Rec: 01/10/22 14:51 [id number]) Physical Therapy Assessment Rehab Potential Rehabilitation Potential Good Evaluation Complexity Number of Personal Factors/Comorbidities 3 or More Number of Body Systems Impaired 3 Clinical Presentation at Evaluation Evolving Impairments Impairments Gait,ROM,Soft Tissue Mobility, Strength Goals Three Impairment decreased ROM and strength right ankle Short Term Goal (STG) patient to be independent with HEP for purposes of ROM and strengthening right ankle STG Duration 01/18/22 [facility] Goal (LTG) Patient ROM WFL, and strength right ankle at least 4+/5 to allow him to return to usual activities LTG Duration 03/21/22 Two Impairment swelling right foot and ankle Short Term Goal (STG) Patient to demonstrate good understanding of edema reduction to include elevation , ice, compression STG Duration 01/18/22 [facility] Goal (LTG) Decrease swelling to withing 2 cm measurements of right for improved right ankle function for all usual activities LTG Duration 03/21/22 One Impairment ambulating with walking boot, antalgic gait with walker household gait Short Term Goal (STG) Progress to full weight- bearing in boot per protocol with min to no increase in pain STG Duration 01/18/22 [facility] Goal (LTG) Patient will be able to ambulate with normal shoe with minimal to no limp with least restrictive assistive device to allow him to return to walking his dog, going fishing . LTG Duration 03/21/22 Assessment Summary Assessment Patient now able to be full weight-bearing in his boot per protocol. Continue hip, knee , and core strengthening. At 12 weeks can start strength training and balance training. Aquatic therapy focus on core stabilization and gentle deep water exercises with intermittent walking Physical Therapy Plan Frequency and Duration Frequency of Treatment 2x/Week Duration of Treatment 12 weeks Plan of Care Start Date 12/21/21 Plan of Care End Date 03/21/22 Therapeutic Interventions Therapeutic Interventions Aquatic Therapy,Balance Training,Gait Training,Home Exercise Program,Manual Therapy,Neuromuscular Re- education,Patient/Caregiver Education,Self-Care/Home Management,Soft Tissue Mobilization,Taping, Therapeutic Activities, Therapeutic Exercises Modalities Cold Pack/Ice Massage Next Visit Focus/Plan Next Note Type Treatment Note Next Visit Plan Continue to progress
--- NOTE | 2022-01-16 11:25 | PT.OTN ---
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 (01/16/22) Post-traumatic osteoarthritis, right ankle and foot (01/16/22) Difficulty in walking, not elsewhere classified (01/16/22) Weakness (01/16/22) Physical Therapy Treatment Note PT-OP-A Visit Information Start: 12/20/21 16:26 Freq: Status: Active Protocol: Document 01/16/22 10:32 SAK (Rec: 01/16/22 11:25 SAK [id number]) Out-Patient Physical Therapy Visit Information Visit Information Visit Type Treatment Note Visit Start Time 10:30 Visit Stop Time 11:22 Total Visit Minutes 52 Visit Number 7 Number of BEAR KEEPER Visits 0 Evaluation Information Evaluation Date 12/21/21 Precautions Precautions per protocol in EMR. PMH: Diabetic neuropathy associated with type 2 diabetes mellitus Lumbar back pain with radiculopathy affecting right lower extremity Nonallopathic lesion of lumbar region, not elsewhere classified Pain in knee region after replacement of knee joint Plantar fasciitis of left foot Rheumatoid arthritis neck pain Thoracic region somatic dysfunction Trigger finger, left ring finger Trigger finger, right ring finger carpal tunnel coleen PT-OP-B Current Condition Start: 12/20/21 16:26 Freq: Status: Active Protocol: Document 01/01/22 08:24 SAK (Rec: 01/01/22 09:05 SAK [id number]) Current Condition History of Current Condition Onset Date 10/20/21 Current Complaints right ankle weakness and decreased range of motion, gait difficulty History of Current Condition right ankle hardware removed and 2nd fusion. Wearing walking boot and using knee scooter. Pain currently 10. Has done partial weight- bearing both in and out of the boot. Saw Dr. Rowan last week; only doing light-walking wearing boot. Has gone to park a couple times using walking stick level surfaces. Prior Treatments and Tests prior right ankle fusion Future Testing and Treatments Planned Sees Dr. Jin 01/23 or 01/24 Personal Factors Other Personal Factors That May Effect history of depression, neck Therapy/Recovery pain, shoulder pain coleen, coleen wrist pain, history TKA PT-OP-C Subjective Start: 12/20/21 16:26 Freq: Status: Active Protocol: Document 01/16/22 10:32 SAK (Rec: 01/16/22 11:25 SAK [id number]) OP-PT Subjective Patient Comments Patient Comments Reports onset of right ankle pain 2 days ago; was using scooter at the park, then started walking with 2 [address] [place], on way back started to hurt medial side of foot/arch, couldn't put any weight on his foot, then pain moved up toward his above his ankle. All yesterday couldn't put weight on foot. When questioned PT-OP-F Manual Assessment Start: 12/20/21 16:26 Freq: Status: Active Protocol: Document 12/21/21 09:00 [facility] (Rec: 12/21/21 10:25 [facility] [id number]) Manual Assessments Soft Tissue Assessment Soft Tissue Mobility Assessment decreased scar mobility right PT-OP-G Mobility & Gait Start: 12/20/21 16:26 Freq: Status: Active Protocol: Document 12/21/21 09:00 [facility] (Rec: 12/21/21 10:25 [facility] [id number]) OP Mobility Evaluation Bed Mobility Rolling indep Transfers Sit to Stand indep, wearing boot OP Gait Assessment Gait Gait Assistance Required: Independent Distance (Feet) 50 Able to Maintain Weight Bearing Status Yes During Gait Assistive Devices Assistive Device Front Wheeled Walker Orthotic/Prosthetic Devices or Brace: Yes Gait Deviations General Gait Pattern Antalgic,Decreased Stride Length,Decreased Feet Clearance Factors Limiting Gait Function Factors Limiting Gait Function Decreased Strength,Limited Range of Motion,Pain PT-OP-H Neuro Start: 12/20/21 16:26 Freq: Status: Active Protocol: Document 12/21/21 09:00 [facility] (Rec: 12/21/21 10:25 [facility] [id number]) Sensation Evaluation Gross Sensation Gross Sensation Left LE Impaired,Right LE Impaired Sensation Description Numbness Comments Summary Comments peripheral neuropathy PT-OP-J Posture/Palpation/Skin Start: 12/20/21 16:26 Freq: Status: Active Protocol: Document 12/21/21 09:00 [facility] (Rec: 12/21/21 10:25 [facility] [id number]) Palpation Assessment Location right ankle Palpation Findings Edema,Soft Tissue Tightness Palpation Details decreased scar mobility right foot/ankle PT-OP-K Range of Motion Start: 12/20/21 16:26 Freq: Status: Active Protocol: Document 12/21/21 09:00 [facility] (Rec: 12/21/21 10:25 [facility] [id number]) Ankle and Foot Goniometric Range of Motion Ankle and Foot Right Active Ankle/Foot ROM WFL No Dorsiflexion with Knee Flexed 0 Plantarflexion 12 Inversion 9 Eversion 11 Comments -5 deg with knee extended left Ankle/Foot ROM WFL Yes PT-OP-M Strength Start: 12/20/21 16:26 Freq: Status: Active Protocol: Document 12/21/21 09:00 [facility] (Rec: 12/21/21 10:25 [facility] [id number]) Ankle/Foot Strength Ankle and Foot Manual Muscle Testing Right Dorsiflexion (L4) 3+ Fair+ Plantarflexion (S1) 3+ Fair+ Inversion 3+ Fair+ Eversion (S1) 3+ Fair+ Comments limited MMT due to recentl surgery Left Dorsiflexion (L4) 5 Normal Plantarflexion (S1) 5 Normal Inversion 5 Normal Eversion (S1) 5 Normal PT-OP-Q Treatments Start: 12/20/21 16:26 Freq: Status: Active Protocol: Document 01/16/22 10:32 [facility] (Rec: 01/16/22 11:25 [facility] [id number]) Cardio Equipment Recumbent Elliptical ([employer]) Duration (Minutes) 6 Resistance 1 Seat Position 13 Other shoe Therapeutic Exercises Supine Exercises bridge Supine Exercise Name knees on bolster for no WB thru right LE Reps/Minutes 10x LAQ Reps/Minutes 10x SAQ Reps/Minutes 10x SLR Supine Exercise Name knee on bolster for no WB thru right LE Reps/Minutes 8x Comments cues for core activation/stab Gait Training Gait Activity use scooter Comments use scooter at this time to allow pain to decrease Manual Therapy Treatment Soft Tissue Mobilization tib post Mobilization Type Myofascial Release Taping right foot and ankle Treatment Focus edema reduction, inhibition post tib Type of Tape Kinesio Tape Skin Inspection intact Comments I strip insertion to origin paper off tension post tib, 2 fan strips + anchoring I strip along ends paper off tension, I strip arch support 50-75% off tension Self-Care/Home Management Treatment Education Patient Education Home Exercise Program,Joint Protection,Safety Other Education Minimize weight-bearing, ice foot and ankle. Educated on anatomy of posterior tibialis, its function, and symptoms of irritation are patient symptoms. PT-OP-R Modalities Start: 12/20/21 16:26 Freq: Status: Active Protocol: Document 01/16/22 10:32 SAK (Rec: 01/16/22 11:25 SAK [id number]) Hot Pack/Cold Pack Treatment right foot/ankle Patient Position Hooklying Treatment Duration (minutes) 13 Patient Tolerance Good Comments ice massage posterior tib prior to soft tissue mobilization, cryocuff at end of session PT-OP-S Aquatic Treatment Start: 12/20/21 16:26 Freq: Status: Active Protocol: Document 01/10/22 14:36 LJ (Rec: 01/10/22 14:51 LJ [id number]) Aquatics Treatment Pool Entry/Exit Pool Entry/Exit Method Lift Assistance Minimal Assistance Water Walking frward holding lg BB at hip level Water Level Chest Level Level of Assistance Verbal Cues Comments cues for shoulder depression forward Water Level Chest Level Walking Equipment belt, sm noodle Level of Assistance Verbal Cues Backwards Water Level Chest Level Walking Equipment belt, sm noodle Level of Assistance Verbal Cues Comments forward BS Sideways Water Level Chest Level Walking Equipment belt, sm noodle Level of Assistance Verbal Cues Lower Extremity Exercises knee flex/ext Body Position Standing Water Level Chest Level Equipment belt, sm noodle Reps/Duration 10x2 ankle df/pf Body Position Standing Water Level Chest Level Reps/Duration 10x2 Upper Extremity Exercises should hor ab/ad Water Level Chest Level Reps/Duration 10x Comments cues for balance on both feet Unilateral pull downs Body Position Standing Water Level Chest Level Equipment lg BB Reps/Duration 8x2 bilat Comments cues for core stabilization lat pull downs Details braced at wall Body Position Sitting Water Level Chest Level Equipment lg BB Reps/Duration 8 Comments core stabilization Spinal Exercises trunk rotation Details braced at wall Body Position Sitting Water Level Neck Level Equipment Lg BB Reps/Duration 8 B Comments submerging noodle with oblique pull down [place] Activities [place] Activities Bicycle,Cross Country,Hip Abduction/Adduction Other Activities abdominal pull down corner pendulum hips 90 degrees reclining torso rotation Equipment belt, sm noodle Duration 25 min Comments slow speed, encouraging full available ROM at ankle Swim Strokes Flutter Other Equipment Used council float Laps/Duration 5' Comments gentle PT-OP-T Assessment and Plan Start: 12/20/21 16:26 Freq: Status: Active Protocol: Document 01/16/22 10:32 SAK (Rec: 01/16/22 11:25 SAK [id number]) Physical Therapy Assessment Rehab Potential Rehabilitation Potential Good Evaluation Complexity Number of Personal Factors/Comorbidities 3 or More Number of Body Systems Impaired 3 Clinical Presentation at Evaluation Evolving Impairments Impairments Gait,ROM,Soft Tissue Mobility, Strength Goals Three Impairment decreased ROM and strength right ankle Short Term Goal (STG) patient to be independent with HEP for purposes of ROM and strengthening right ankle STG Duration 01/18/22 Parts Administrator Goal (LTG) Patient ROM WFL, and strength right ankle at least 4+/5 to allow him to return to usual activities LTG Duration 03/21/22 Two Impairment swelling right foot and ankle Short Term Goal (STG) Patient to demonstrate good understanding of edema reduction to include elevation , ice, compression STG Duration 01/18/22 Parts Administrator Goal (LTG) Decrease swelling to withing 2 cm measurements of right for improved right ankle function for all usual activities LTG Duration 03/21/22 One Impairment ambulating with walking boot, antalgic gait with walker household gait Short Term Goal (STG) Progress to full weight- bearing in boot per protocol with min to no increase in pain STG Duration 01/18/22 Retirement Goal (LTG) Patient will be able to ambulate with normal shoe with minimal to no limp with least restrictive assistive device to allow him to return to walking his dog, going fishing . LTG Duration 03/21/22 Assessment Summary Assessment Patient new painful symptoms consistent with posterior tibialis tendonitis likely due to increase in walking. Symptoms experienced also after walking without kinesiotape for arch support. Patient demonstrated good understanding of decreased weight-bearing, and increased elevation and icing to treat. Physical Therapy Plan Frequency and Duration Frequency of Treatment 2x/Week Duration of Treatment 12 weeks Plan of Care Start Date 12/21/21 Plan of Care End Date 03/21/22 Therapeutic Interventions Therapeutic Interventions Aquatic Therapy,Balance Training,Gait Training,Home Exercise Program,Manual Therapy,Neuromuscular Re- education,Patient/Caregiver Education,Self-Care/Home Management,Soft Tissue Mobilization,Taping, Therapeutic Activities, Therapeutic Exercises Modalities Cold Pack/Ice Massage Next Visit Focus/Plan Next Note Type Treatment Note Next Visit Plan Aquatic therapy next session, focus NWB in deep water.
--- NOTE | 2022-01-17 14:43 | PT.OTN ---
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 (01/17/22) Post-traumatic osteoarthritis, right ankle and foot (01/17/22) Difficulty in walking, not elsewhere classified (01/17/22) Weakness (01/17/22) Physical Therapy Treatment Note PT-OP-A Visit Information Start: 12/20/21 16:26 Freq: Status: Active Protocol: Document 01/17/22 14:25 LJ (Rec: 01/17/22 14:43 LJ [id number]) Out-Patient Physical Therapy Visit Information Visit Information Visit Type Aquatic Treatment Note Visit Start Time 10:30 Visit Stop Time 11:45 Total Visit Minutes 45 Visit Number 8 Number of ELECTROLYTIC ETCHER Visits 1 Evaluation Information Evaluation Date 12/21/21 Precautions Precautions per protocol in EMR. PMH: Diabetic neuropathy associated with type 2 diabetes mellitus Lumbar back pain with radiculopathy affecting right lower extremity Nonallopathic lesion of lumbar region, not elsewhere classified Pain in knee region after replacement of knee joint Plantar fasciitis of left foot Rheumatoid arthritis neck pain Thoracic region somatic dysfunction Trigger finger, left ring finger Trigger finger, right ring finger carpal tunnel coleen PT-OP-B Current Condition Start: 12/20/21 16:26 Freq: Status: Active Protocol: Document 01/01/22 08:24 SAK (Rec: 01/01/22 09:05 SAK [id number]) Current Condition History of Current Condition Onset Date 10/20/21 Current Complaints right ankle weakness and decreased range of motion, gait difficulty History of Current Condition right ankle hardware removed and 2nd fusion. Wearing walking boot and using knee scooter. Pain currently 3/10. Has done partial weight- bearing both in and out of the boot. Saw Dr. Rowan last week; only doing light-walking wearing boot. Has gone to park a couple times using walking stick level surfaces. Prior Treatments and Tests prior right ankle fusion Future Testing and Treatments Planned Sees Dr. Jin 01/23 or 01/24 Personal Factors Other Personal Factors That May Effect history of depression, neck Therapy/Recovery pain, shoulder pain coleen, coleen wrist pain, history TKA PT-OP-C Subjective Start: 12/20/21 16:26 Freq: Status: Active Protocol: Document 01/17/22 14:25 LJ (Rec: 01/17/22 14:43 LJ [id number]) OP-PT Subjective Patient Comments Patient Comments Pt reports he stretched his RLE at home this morning prior to going to [place]. States he does not have the pain he had earlier in the week. PT-OP-F Manual Assessment Start: 12/20/21 16:26 Freq: Status: Active Protocol: Document 12/21/21 09:00 [facility] (Rec: 12/21/21 10:25 [facility] [id number]) Manual Assessments Soft Tissue Assessment Soft Tissue Mobility Assessment decreased scar mobility right PT-OP-G Mobility & Gait Start: 12/20/21 16:26 Freq: Status: Active Protocol: Document 12/21/21 09:00 [facility] (Rec: 12/21/21 10:25 [facility] [id number]) OP Mobility Evaluation Bed Mobility Rolling indep Transfers Sit to Stand indep, wearing boot OP Gait Assessment Gait Gait Assistance Required: Independent Distance (Feet) 50 Able to Maintain Weight Bearing Status Yes During Gait Assistive Devices Assistive Device Front Wheeled Walker Orthotic/Prosthetic Devices or Brace: Yes Gait Deviations General Gait Pattern Antalgic,Decreased Stride Length,Decreased Feet Clearance Factors Limiting Gait Function Factors Limiting Gait Function Decreased Strength,Limited Range of Motion,Pain PT-OP-H Neuro Start: 12/20/21 16:26 Freq: Status: Active Protocol: Document 12/21/21 09:00 [facility] (Rec: 12/21/21 10:25 [facility] [id number]) Sensation Evaluation Gross Sensation Gross Sensation Left LE Impaired,Right LE Impaired Sensation Description Numbness Comments Summary Comments peripheral neuropathy PT-OP-J Posture/Palpation/Skin Start: 12/20/21 16:26 Freq: Status: Active Protocol: Document 12/21/21 09:00 [facility] (Rec: 12/21/21 10:25 [facility] [id number]) Palpation Assessment Location right ankle Palpation Findings Edema,Soft Tissue Tightness Palpation Details decreased scar mobility right foot/ankle PT-OP-K Range of Motion Start: 12/20/21 16:26 Freq: Status: Active Protocol: Document 12/21/21 09:00 [facility] (Rec: 12/21/21 10:25 [facility] [id number]) Ankle and Foot Goniometric Range of Motion Ankle and Foot Right Active Ankle/Foot ROM WFL No Dorsiflexion with Knee Flexed 0 Plantarflexion 12 Inversion 9 Eversion 11 Comments -5 deg with knee extended left Ankle/Foot ROM WFL Yes PT-OP-M Strength Start: 12/20/21 16:26 Freq: Status: Active Protocol: Document 12/21/21 09:00 [facility] (Rec: 12/21/21 10:25 [facility] [id number]) Ankle/Foot Strength Ankle and Foot Manual Muscle Testing Right Dorsiflexion (L4) 3+ Fair+ Plantarflexion (S1) 3+ Fair+ Inversion 3+ Fair+ Eversion (S1) 3+ Fair+ Comments limited MMT due to recentl surgery Left Dorsiflexion (L4) 5 Normal Plantarflexion (S1) 5 Normal Inversion 5 Normal Eversion (S1) 5 Normal PT-OP-Q Treatments Start: 12/20/21 16:26 Freq: Status: Active Protocol: Document 01/16/22 10:32 [facility] (Rec: 01/16/22 11:25 [facility] [id number]) Cardio Equipment Recumbent Elliptical ([employer]) Duration (Minutes) 6 Resistance 1 Seat Position 13 Other shoe Therapeutic Exercises Supine Exercises bridge Supine Exercise Name knees on bolster for no WB thru right LE Reps/Minutes 10x LAQ Reps/Minutes 10x SAQ Reps/Minutes 10x SLR Supine Exercise Name knee on bolster for no WB thru right LE Reps/Minutes 8x Comments cues for core activation/stab Gait Training Gait Activity use scooter Comments use scooter at this time to allow pain to decrease Manual Therapy Treatment Soft Tissue Mobilization tib post Mobilization Type Myofascial Release Taping right foot and ankle Treatment Focus edema reduction, inhibition post tib Type of Tape Kinesio Tape Skin Inspection intact Comments I strip insertion to origin paper off tension post tib, 2 fan strips + anchoring I strip along ends paper off tension, I strip arch support 50-75% off tension Self-Care/Home Management Treatment Education Patient Education Home Exercise Program,Joint Protection,Safety Other Education Minimize weight-bearing, ice foot and ankle. Educated on anatomy of posterior tibialis, its function, and symptoms of irritation are patient symptoms. PT-OP-R Modalities Start: 12/20/21 16:26 Freq: Status: Active Protocol: Document 01/16/22 10:32 [facility] (Rec: 01/16/22 11:25 [facility] [id number]) Hot Pack/Cold Pack Treatment right foot/ankle Patient Position Hooklying Treatment Duration (minutes) 13 Patient Tolerance Good Comments ice massage posterior tib prior to soft tissue mobilization, cryocuff at end of session PT-OP-S Aquatic Treatment Start: 12/20/21 16:26 Freq: Status: Active Protocol: Document 01/17/22 14:25 [facility] (Rec: 01/17/22 14:43 [id number]) Aquatics Treatment Pool Entry/Exit Pool Entry/Exit Method Lift Assistance Contact Guard Assistance Water Walking Toe Walk Water Level Neck Level Level of Assistance Verbal Cues forward Water Level Chest Level Level of Assistance Verbal Cues Backwards Water Level Chest Level Level of Assistance Verbal Cues Comments forward BS [place] January Water Level Chest Level Comments arms HABD/ADD january kick Water Level Chest Level Level of Assistance Verbal Cues march Water Level Chest Level Level of Assistance Verbal Cues Comments reaching to opp side Sideways Water Level Chest Level Level of Assistance Verbal Cues Lower Extremity Exercises 4 way hip Body Position Standing Water Level Chest Level Reps/Duration 15 all directions B knee flex/ext Body Position Standing Water Level Chest Level Reps/Duration 10x2 ankle df/pf Body Position Standing Water Level Chest Level Reps/Duration 10x2 Lower Extremity Stretches SKTC Details at wall Body Position Standing Water Level Chest Level Reps/Duration 2 x 30 B HS, Gastroc, Soleus Body Position Standing Water Level Chest Level Reps/Duration 2 x 30 ea B Upper Extremity Exercises should hor ab/ad Water Level Chest Level Reps/Duration 10x Comments cues for balance on both feet Unilateral pull downs Body Position Standing Water Level Chest Level Equipment lg BB Reps/Duration 8x2 bilat Comments cues for core stabilization lat pull downs Details braced at wall Body Position Sitting Water Level Chest Level Equipment lg BB Reps/Duration 8 Comments core stabilization Spinal Exercises trunk rotation Details braced at wall Body Position Sitting Water Level Neck Level Equipment Lg BB Reps/Duration 8 B Comments submerging noodle with oblique pull down Balance SLS Body Position Standing Water Level Chest Level Reps/Duration 3 B 30 Comments holding onto wall [place] Activities [place] Activities Bicycle,Bicycle Backwards, Cross Country,Running Other Activities abdominal pull down corner pendulum hips 90 degrees reclining torso rotation Equipment belt, BBs Duration 15 Comments slow speed, encouraging full available ROM at ankle PT-OP-T Assessment and Plan Start: 12/20/21 16:26 Freq: Status: Active Protocol: Document 01/17/22 14:25 [facility] (Rec: 01/17/22 14:43 [id number]) Physical Therapy Assessment Rehab Potential Rehabilitation Potential Good Evaluation Complexity Number of Personal Factors/Comorbidities 3 or More Number of Body Systems Impaired 3 Clinical Presentation at Evaluation Evolving Impairments Impairments Gait,ROM,Soft Tissue Mobility, Strength Goals Three Impairment decreased ROM and strength right ankle Short Term Goal (STG) patient to be independent with HEP for purposes of ROM and strengthening right ankle STG Duration 01/18/22 Nursing Home Goal (LTG) Patient ROM WFL, and strength right ankle at least 4+/5 to allow him to return to usual activities LTG Duration 03/21/22 Two Impairment swelling right foot and ankle Short Term Goal (STG) Patient to demonstrate good understanding of edema reduction to include elevation , ice, compression STG Duration 01/18/22 Nursing Home Goal (LTG) Decrease swelling to withing 2 cm measurements of right for improved right ankle function for all usual activities LTG Duration 03/21/22 One Impairment ambulating with walking boot, antalgic gait with walker household gait Short Term Goal (STG) Progress to full weight- bearing in boot per protocol with min to no increase in pain STG Duration 01/18/22 Nursing Home Goal (LTG) Patient will be able to ambulate with normal shoe with minimal to no limp with least restrictive assistive device to allow him to return to walking his dog, going fishing . LTG Duration 03/21/22 Assessment Summary Assessment Pt able to ambulate in pool without assist from noodle. Demonstrated improved balance with most movement activities. States he will go to pool to exercise on his own during the week. Physical Therapy Plan Frequency and Duration Frequency of Treatment 2x/Week Duration of Treatment 12 weeks Plan of Care Start Date 12/21/21 Plan of Care End Date 03/21/22 Therapeutic Interventions Therapeutic Interventions Aquatic Therapy,Balance Training,Gait Training,Home Exercise Program,Manual Therapy,Neuromuscular Re- education,Patient/Caregiver Education,Self-Care/Home Management,Soft Tissue Mobilization,Taping, Therapeutic Activities, Therapeutic Exercises Modalities Cold Pack/Ice Massage Next Visit Focus/Plan Next Note Type Treatment Note Next Visit Plan Aquatic therapy next session, focus NWB in deep water.
--- NOTE | 2022-01-23 09:45 | PT.OTN ---
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 (01/23/22) Post-traumatic osteoarthritis, right ankle and foot (01/23/22) Difficulty in walking, not elsewhere classified (01/23/22) Weakness (01/23/22) Physical Therapy Treatment Note PT-OP-A Visit Information Start: 12/20/21 16:26 Freq: Status: Active Protocol: Document 01/23/22 08:15 SP (Rec: 01/23/22 08:59 SP [id number]) Out-Patient Physical Therapy Visit Information Visit Information Visit Type Treatment Note Visit Start Time 08:15 Visit Stop Time 09:45 Total Visit Minutes 45 Visit Number 9 Number of ACCOUNTING CLERK Visits 2 Evaluation Information Evaluation Date 12/21/21 Precautions Precautions per protocol in EMR. PMH: Diabetic neuropathy associated with type 2 diabetes mellitus Lumbar back pain with radiculopathy affecting right lower extremity Nonallopathic lesion of lumbar region, not elsewhere classified Pain in knee region after replacement of knee joint Plantar fasciitis of left foot Rheumatoid arthritis neck pain Thoracic region somatic dysfunction Trigger finger, left ring finger Trigger finger, right ring finger carpal tunnel coleen PT-OP-B Current Condition Start: 12/20/21 16:26 Freq: Status: Active Protocol: Document 01/01/22 08:24 SAK (Rec: 01/01/22 09:05 SAK [id number]) Current Condition History of Current Condition Onset Date 10/20/21 Current Complaints right ankle weakness and decreased range of motion, gait difficulty History of Current Condition right ankle hardware removed and 2nd fusion. Wearing walking boot and using knee scooter. Pain currently 3/10. Has done partial weight- bearing both in and out of the boot. Saw Dr. Rowan last week; only doing light-walking wearing boot. Has gone to park a couple times using walking stick level surfaces. Prior Treatments and Tests prior right ankle fusion Future Testing and Treatments Planned Sees Dr. Jin 01/23 or 01/24 Personal Factors Other Personal Factors That May Effect history of depression, neck Therapy/Recovery pain, shoulder pain coleen, coleen wrist pain, history TKA PT-OP-C Subjective Start: 12/20/21 16:26 Freq: Status: Active Protocol: Document 01/23/22 08:15 SP (Rec: 01/23/22 08:59 SP [id number]) OP-PT Subjective Patient Comments Patient Comments Pt arrived with sneaker donned RLE with boot in basket of knee scooter. Pt stated I have to take my boot off when get here so didn't make sense to just to have it off again when got here. Pt states see orthopedic tomorrow at 0945 then pool appt 1145. Pt stated had to take the K taping off due to feeling scratchy. Pt reports the exercises and use of TB is getting more moving. Pt states doesn't have the motion to drive with RLE so uses his LLE. Pt stated had EMG last Th ordered Dr Rowan and has some neuropathy in B hands, today L wrist donned due to pain. Pt reports does his exercises on floor, able to get on/off floor safe. PT-OP-F Manual Assessment Start: 12/20/21 16:26 Freq: Status: Active Protocol: Document 12/21/21 09:00 [facility] (Rec: 12/21/21 10:25 [facility] [id number]) Manual Assessments Soft Tissue Assessment Soft Tissue Mobility Assessment decreased scar mobility right PT-OP-G Mobility & Gait Start: 12/20/21 16:26 Freq: Status: Active Protocol: Document 12/21/21 09:00 [facility] (Rec: 12/21/21 10:25 [facility] [id number]) OP Mobility Evaluation Bed Mobility Rolling indep Transfers Sit to Stand indep, wearing boot OP Gait Assessment Gait Gait Assistance Required: Independent Distance (Feet) 50 Able to Maintain Weight Bearing Status Yes During Gait Assistive Devices Assistive Device Front Wheeled Walker Orthotic/Prosthetic Devices or Brace: Yes Gait Deviations General Gait Pattern Antalgic,Decreased Stride Length,Decreased Feet Clearance Factors Limiting Gait Function Factors Limiting Gait Function Decreased Strength,Limited Range of Motion,Pain PT-OP-H Neuro Start: 12/20/21 16:26 Freq: Status: Active Protocol: Document 12/21/21 09:00 [facility] (Rec: 12/21/21 10:25 [facility] [id number]) Sensation Evaluation Gross Sensation Gross Sensation Left LE Impaired,Right LE Impaired Sensation Description Numbness Comments Summary Comments peripheral neuropathy PT-OP-J Posture/Palpation/Skin Start: 12/20/21 16:26 Freq: Status: Active Protocol: Document 12/21/21 09:00 [facility] (Rec: 12/21/21 10:25 [facility] [id number]) Palpation Assessment Location right ankle Palpation Findings Edema,Soft Tissue Tightness Palpation Details decreased scar mobility right foot/ankle PT-OP-K Range of Motion Start: 12/20/21 16:26 Freq: Status: Active Protocol: Document 12/21/21 09:00 [facility] (Rec: 12/21/21 10:25 [facility] [id number]) Ankle and Foot Goniometric Range of Motion Ankle and Foot Right Active Ankle/Foot ROM WFL No Dorsiflexion with Knee Flexed 0 Plantarflexion 12 Inversion 9 Eversion 11 Comments -5 deg with knee extended left Ankle/Foot ROM WFL Yes PT-OP-M Strength Start: 12/20/21 16:26 Freq: Status: Active Protocol: Document 12/21/21 09:00 [facility]AK (Rec: 12/21/21 10:25 [facility] [id number]) Ankle/Foot Strength Ankle and Foot Manual Muscle Testing Right Dorsiflexion (L4) 3+ Fair+ Plantarflexion (S1) 3+ Fair+ Inversion 3+ Fair+ Eversion (S1) 3+ Fair+ Comments limited MMT due to recentl surgery Left Dorsiflexion (L4) 5 Normal Plantarflexion (S1) 5 Normal Inversion 5 Normal Eversion (S1) 5 Normal PT-OP-Q Treatments Start: 12/20/21 16:26 Freq: Status: Active Protocol: Document 01/23/22 08:15 SP (Rec: 01/23/22 08:59 SP [id number]) Cardio Equipment Recumbent Elliptical (Biodex) Duration (Minutes) 8 Resistance 3 Seat Position 13 Other shoe Therapeutic Exercises Supine Exercises bridge Supine Exercise Name knees bent, B feet flat ontable Reps/Minutes 10x Comments cued TA fac, painfree range- good response LAQ Side right Reps/Minutes x20 Comments good for painfree SAQ Reps/Minutes x20 Comments good form pain free SLR Supine Exercise Name knee on bolster for no WB thru right LE Reps/Minutes x15 Comments cues for core activation and quad fac stab ankle pumps Supine Exercise Name PF, DF, EV, IV Reps/Minutes x15 each direction Gait Training Gait Activity 2 Description Gait training with boot, WBAT Device Used trekking poles, cam boot w/ orthotic Level of Assistance SBA, gait belt for safety Surface firm Distance/Duration 100 ft Treatment Focus may be 100% WB at this time per protocol Comments good feedback response, painfree, stable Manual Therapy Treatment Soft Tissue Mobilization tib post Body Location R Mobilization Type Myofascial Release Taping right foot and ankle Treatment Focus edema reduction, inhibition post tib Type of Tape Kinesio Tape Skin Inspection intact Comments I strip insertion to origin paper off tension post tib, 2 fan strips + anchoring I strip along ends paper off tension, I strip arch support 50-75% off tension Self-Care/Home Management Treatment Education Patient Education Safety Other Education Reviewed cam boot donned during all gait, even to PT then will don shoe for bike. Pt verbalized understanding. PT-OP-R Modalities Start: 12/20/21 16:26 Freq: Status: Active Protocol: Document 01/16/22 10:32 SAK (Rec: 01/16/22 11:25 [facility] [id number]) Hot Pack/Cold Pack Treatment right foot/ankle Patient Position Hooklying Treatment Duration (minutes) 13 Patient Tolerance Good Comments ice massage posterior tib prior to soft tissue mobilization, cryocuff at end of session PT-OP-S Aquatic Treatment Start: 12/20/21 16:26 Freq: Status: Active Protocol: Document 01/17/22 14:25 LJ (Rec: 01/17/22 14:43 LJ [id number]) Aquatics Treatment Pool Entry/Exit Pool Entry/Exit Method Lift Assistance Contact Guard Assistance Water Walking Toe Walk Water Level Neck Level Level of Assistance Verbal Cues forward Water Level Chest Level Level of Assistance Verbal Cues Backwards Water Level Chest Level Level of Assistance Verbal Cues Comments forward BS [place] January Water Level Chest Level Comments arms HABD/ADD march kick Water Level Chest Level Level of Assistance Verbal Cues march Water Level Chest Level Level of Assistance Verbal Cues Comments reaching to opp side Sideways Water Level Chest Level Level of Assistance Verbal Cues Lower Extremity Exercises 4 way hip Body Position Standing Water Level Chest Level Reps/Duration 15 all directions B knee flex/ext Body Position Standing Water Level Chest Level Reps/Duration 10x2 ankle df/pf Body Position Standing Water Level Chest Level Reps/Duration 10x2 Lower Extremity Stretches SKTC Details at wall Body Position Standing Water Level Chest Level Reps/Duration 2 x 30 B HS, Gastroc, Soleus Body Position Standing Water Level Chest Level Reps/Duration 2 x 30 ea B Upper Extremity Exercises should hor ab/ad Water Level Chest Level Reps/Duration 10x Comments cues for balance on both feet Unilateral pull downs Body Position Standing Water Level Chest Level Equipment lg BB Reps/Duration 8x2 bilat Comments cues for core stabilization lat pull downs Details braced at wall Body Position Sitting Water Level Chest Level Equipment lg BB Reps/Duration 8 Comments core stabilization Spinal Exercises trunk rotation Details braced at wall Body Position Sitting Water Level Neck Level Equipment Lg BB Reps/Duration 8 B Comments submerging noodle with oblique pull down Balance SLS Body Position Standing Water Level Chest Level Reps/Duration 3 B 30 Comments holding onto wall [place] Activities [place] Activities Bicycle,Bicycle Backwards, Cross Country,Running Other Activities abdominal pull down corner pendulum hips 90 degrees reclining torso rotation Equipment belt, BBs Duration 15 Comments slow speed, encouraging full available ROM at ankle PT-OP-T Assessment and Plan Start: 12/20/21 16:26 Freq: Status: Active Protocol: Document 01/23/22 08:15 SP (Rec: 01/23/22 08:59 SP [id number]) Physical Therapy Assessment Goals Three Impairment decreased ROM and strength right ankle Short Term Goal (STG) patient to be independent with HEP for purposes of ROM and strengthening right ankle STG Duration 01/18/22 [employer] Goal (LTG) Patient ROM WFL, and strength right ankle at least 4+/5 to allow him to return to usual activities LTG Duration 03/21/22 Two Impairment swelling right foot and ankle Short Term Goal (STG) Patient to demonstrate good understanding of edema reduction to include elevation , ice, compression STG Duration 01/18/22 Senior Living Goal (LTG) Decrease swelling to withing 2 cm measurements of right for improved right ankle function for all usual activities LTG Duration 03/21/22 One Impairment ambulating with walking boot, antalgic gait with walker household gait Short Term Goal (STG) Progress to full weight- bearing in boot per protocol with min to no increase in pain STG Duration 01/18/22 Senior Living Goal (LTG) Patient will be able to ambulate with normal shoe with minimal to no limp with least restrictive assistive device to allow him to return to walking his dog, going fishing . LTG Duration 03/21/22 Assessment Summary Assessment Pt declined modalities I feel ok, no discomfort/ pain issues today, even no pain meds needed. Pt required min cuse for set up anf proepr form HEP. Education for cam boot wear during all WB activities. Retaped for Tib posterior, arch support and swelling med/ lateral R ankle. Pt has follow up with ortho tomorrow, ACCOUNTING CLERK asked they give him something written if any change in cam boot wearing time and bring to next tx. Physical Therapy Plan Frequency and Duration Frequency of Treatment 2x/Week Duration of Treatment 12 weeks Plan of Care Start Date 12/21/21 Plan of Care End Date 03/21/22 Therapeutic Interventions Therapeutic Interventions Aquatic Therapy,Balance Training,Gait Training,Home Exercise Program,Manual Therapy,Neuromuscular Re- education,Patient/Caregiver Education,Self-Care/Home Management,Soft Tissue Mobilization,Taping, Therapeutic Activities, Therapeutic Exercises Modalities Cold Pack/Ice Massage Next Visit Focus/Plan Next Note Type Treatment Note Next Visit Plan Ask feedback from am ortho appt: any change WB w/ boot. Aquatic therapy next session, focus NWB in deep water. NExt land: recheck HEP, progress ther ex as toleranted and safety ed WB status.
--- NOTE | 2022-01-30 09:00 | PT.OTN ---
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 Visit Start Time 08:17 Visit Stop Time 09:00 Total Visit Minutes 42 Visit Number 10 Number of INSTRUMENT DESIGNER Visits 3 Evaluation Information Evaluation Date 12/21/21 Precautions Precautions per protocol in EMR. PMH: Diabetic neuropathy associated with type 2 diabetes mellitus Lumbar back pain with radiculopathy affecting right lower extremity Nonallopathic lesion of lumbar region, not elsewhere classified Pain in knee region after replacement of knee joint Plantar fasciitis of left foot Rheumatoid arthritis neck pain Thoracic region somatic dysfunction Trigger finger, left ring finger Trigger finger, right ring finger carpal tunnel coleen PT-OP-B Current Condition Start: 12/20/21 16:26 Freq: Status: Active Protocol: Document 01/01/22 08:24 SAK (Rec: 01/01/22 09:05 SAK [id number]) Current Condition History of Current Condition Onset Date 10/20/21 Current Complaints right ankle weakness and decreased range of motion, gait difficulty History of Current Condition right ankle hardware removed and 2nd fusion. Wearing walking boot and using knee scooter. Pain currently 01/18. Has done partial weight- bearing both in and out of the boot. Saw Dr. Rowan last week; only doing light-walking wearing boot. Has gone to park a couple times using walking stick level surfaces. Prior Treatments and Tests prior right ankle fusion Future Testing and Treatments Planned Sees Dr. Jin 01/23 or 01/24 Personal Factors Other Personal Factors That May Effect history of depression, neck Therapy/Recovery pain, shoulder pain coleen, coleen wrist pain, history TKA PT-OP-C Subjective Start: 12/20/21 16:26 Freq: Status: Active Protocol: Document 01/30/22 08:17 SP (Rec: 01/30/22 09:12 SP [id number]) OP-PT Subjective Patient Comments Patient Comments Pt reports saw ortho follow up and told can DC camboot/ no need use upright walker and scooter, was provided order for lace up R ankle brace and told to get a hiking boot for increased stability. Pt report walks his dog w/ trekk poles (not on leash) with no pain. He states K taping causes itching onskin so removed. PT-OP-F Manual Assessment Start: 12/20/21 16:26 Freq: Status: Active Protocol: Document 12/21/21 09:00 [facility] (Rec: 12/21/21 10:25 [facility] [id number]) Manual Assessments Soft Tissue Assessment Soft Tissue Mobility Assessment decreased scar mobility right PT-OP-G Mobility & Gait Start: 12/20/21 16:26 Freq: Status: Active Protocol: Document 12/21/21 09:00 [facility] (Rec: 12/21/21 10:25 [facility] [id number]) OP Mobility Evaluation Bed Mobility Rolling indep Transfers Sit to Stand indep, wearing boot OP Gait Assessment Gait Gait Assistance Required: Independent Distance (Feet) 50 Able to Maintain Weight Bearing Status Yes During Gait Assistive Devices Assistive Device Front Wheeled Walker Orthotic/Prosthetic Devices or Brace: Yes Gait Deviations General Gait Pattern Antalgic,Decreased Stride Length,Decreased Feet Clearance Factors Limiting Gait Function Factors Limiting Gait Function Decreased Strength,Limited Range of Motion,Pain PT-OP-H Neuro Start: 12/20/21 16:26 Freq: Status: Active Protocol: Document 12/21/21 09:00 [facility] (Rec: 12/21/21 10:25 [facility] [id number]) Sensation Evaluation Gross Sensation Gross Sensation Left LE Impaired,Right LE Impaired Sensation Description Numbness Comments Summary Comments peripheral neuropathy PT-OP-J Posture/Palpation/Skin Start: 12/20/21 16:26 Freq: Status: Active Protocol: Document 12/21/21 09:00 [facility] (Rec: 12/21/21 10:25 [facility] [id number]) Palpation Assessment Location right ankle Palpation Findings Edema,Soft Tissue Tightness Palpation Details decreased scar mobility right foot/ankle PT-OP-K Range of Motion Start: 12/20/21 16:26 Freq: Status: Active Protocol: Document 12/21/21 09:00 [facility] (Rec: 12/21/21 10:25 [facility] [id number]) Ankle and Foot Goniometric Range of Motion Ankle and Foot Right Active Ankle/Foot ROM WFL No Dorsiflexion with Knee Flexed 0 Plantarflexion 12 Inversion 9 Eversion 11 Comments -5 deg with knee extended left Ankle/Foot ROM WFL Yes PT-OP-M Strength Start: 12/20/21 16:26 Freq: Status: Active Protocol: Document 12/21/21 09:00 SAK (Rec: 12/21/21 10:25 SAK [id number]) Ankle/Foot Strength Ankle and Foot Manual Muscle Testing Right Dorsiflexion (L4) 3+ Fair+ Plantarflexion (S1) 3+ Fair+ Inversion 3+ Fair+ Eversion (S1) 3+ Fair+ Comments limited MMT due to recentl surgery Left Dorsiflexion (L4) 5 Normal Plantarflexion (S1) 5 Normal Inversion 5 Normal Eversion (S1) 5 Normal PT-OP-Q Treatments Start: 12/20/21 16:26 Freq: Status: Active Protocol: Document 01/30/22 08:17 SP (Rec: 01/30/22 09:12 SP [id number]) Cardio Equipment Recumbent Elliptical ([employer]) Duration (Minutes) 8 Resistance 3 Seat Position 11 Other shoe: 696 steps Therapeutic Exercises Sidelying Exercises ankle [address] way Sidelying Exercise Name added to HEP Side right Resistance TB #1 Equipment Used pt required demo for assist. Reps/Minutes x10 each Comments max cues for set up and direction performance- gave HO today recall follow Sitting Exercises BAPS Sitting Exercise Name df,pf, inv,ev Equipment Used L3 Reps/Minutes 10x ea Comments gentle, pain-free just of range challenge with PF Gait Training Gait Activity 2 Description Gait training with sneaker, WBAT Device Used [employer] Level of Assistance S Surface firm Distance/Duration 100 ft x2 Treatment Focus 100% wB w/ shoe, stability 2pt gait Comments good feedback response, painfree, stable. Instructe fill script for lace up ankle brace reported when arrived received at ortho F/U. Neuro Re-Education Treatment Balance Activities corner balance Details NBOS, stagger Comments NBOS: EC 30s- small sway self recoveries. Stagger 1 space between BLE: Self-Care/Home Management Treatment Education Patient Education Safety Other Education education on fill script R ankle lace up brace. 2x10 reps only ankle TB HEP. PT-OP-R Modalities Start: 12/20/21 16:26 Freq: Status: Active Protocol: Document 01/16/22 10:32 SAK (Rec: 01/16/22 11:25 SAK [id number]) Hot Pack/Cold Pack Treatment right foot/ankle Patient Position Hooklying Treatment Duration (minutes) 13 Patient Tolerance Good Comments ice massage posterior tib prior to soft tissue mobilization, cryocuff at end of session PT-OP-S Aquatic Treatment Start: 12/20/21 16:26 Freq: Status: Active Protocol: Document 01/17/22 14:25 LJ (Rec: 01/17/22 14:43 LJ [id number]) Aquatics Treatment Pool Entry/Exit Pool Entry/Exit Method Lift Assistance Contact Guard Assistance Water Walking Toe Walk Water Level Neck Level Level of Assistance Verbal Cues forward Water Level Chest Level Level of Assistance Verbal Cues Backwards Water Level Chest Level Level of Assistance Verbal Cues Comments forward BS [place] January Water Level Chest Level Comments arms HABD/ADD january kick Water Level Chest Level Level of Assistance Verbal Cues march Water Level Chest Level Level of Assistance Verbal Cues Comments reaching to opp side Sideways Water Level Chest Level Level of Assistance Verbal Cues Lower Extremity Exercises 4 way hip Body Position Standing Water Level Chest Level Reps/Duration 15 all directions B knee flex/ext Body Position Standing Water Level Chest Level Reps/Duration 10x2 ankle df/pf Body Position Standing Water Level Chest Level Reps/Duration 10x2 Lower Extremity Stretches SKTC Details at wall Body Position Standing Water Level Chest Level Reps/Duration 2 x 30 B HS, Gastroc, Soleus Body Position Standing Water Level Chest Level Reps/Duration 2 x 30 ea B Upper Extremity Exercises should hor ab/ad Water Level Chest Level Reps/Duration 10x Comments cues for balance on both feet Unilateral pull downs Body Position Standing Water Level Chest Level Equipment lg BB Reps/Duration 8x2 bilat Comments cues for core stabilization lat pull downs Details braced at wall Body Position Sitting Water Level Chest Level Equipment lg BB Reps/Duration 8 Comments core stabilization Spinal Exercises trunk rotation Details braced at wall Body Position Sitting Water Level Neck Level Equipment Lg BB Reps/Duration 8 B Comments submerging noodle with oblique pull down Balance SLS Body Position Standing Water Level Chest Level Reps/Duration 3 B 30 Comments holding onto wall [place] Activities [place] Activities Bicycle,Bicycle Backwards, Cross [place],Running Other Activities abdominal pull down corner pendulum hips 90 degrees reclining torso rotation Equipment belt, BBs Duration 15 Comments slow speed, encouraging full available ROM at ankle PT-OP-T Assessment and Plan Start: 12/20/21 16:26 Freq: Status: Active Protocol: Document 01/30/22 08:17 SP (Rec: 01/30/22 09:12 SP [id number]) Physical Therapy Assessment Goals Three Impairment decreased ROM and strength right ankle Short Term Goal (STG) patient to be independent with HEP for purposes of ROM and strengthening right ankle 01/30/22: pt requires max cuing for set up and directioning with TB ankle HEP and allowable reps comfort not over do it 2x10, painfree. STG Duration 01/18/22 (progressing 01/30/22) Fpc Goal (LTG) Patient ROM WFL, and strength right ankle at least 4+/5 to allow him to return to usual activities LTG Duration 03/21/22 Two Impairment swelling right foot and ankle Short Term Goal (STG) Patient to demonstrate good understanding of edema reduction to include elevation , ice, compression 01/30/22: pt education CP after HEP to allow swelling reduction. STG Duration 01/18/22 Fpc Goal (LTG) Decrease swelling to withing 2 cm measurements of right for improved right ankle function for all usual activities LTG Duration 03/21/22 One Impairment ambulating with walking boot, antalgic gait with walker household gait Short Term Goal (STG) Progress to full weight- bearing in boot per protocol with min to no increase in pain 01/30/22: Goal MET: pt told last Th ok to DC boot, get hiking boot and given script for lace up R ankle brace for added stability. STG Duration 01/18/22 -Goal Met Fpc Goal (LTG) Patient will be able to ambulate with normal shoe with minimal to no limp with least restrictive assistive device to allow him to return to walking his dog, going fishing . 01/30/22: progressing: Pt wearing shoe upon arrival. states able to walk about 1 hr with walk sticks dog with no pain, careful walking, not need leash, demonstrates antalgic gait limp. LTG Duration 03/21/22 (progressing 01/30/22) Assessment Summary Assessment Pt requires max cuing for set up and proper form with ankle HEP, provided HOs. Extra time spent with education on filling script give last week for R ankle brace to provide ankle stability with WB, per reported follow up feedback when arrived. Pt stable use of trekk poles during gait, ed for filling ortho script was told at last week appt for R ankle stability. Pt will acquire physican notes for EMR. Physical Therapy Plan Frequency and Duration Frequency of Treatment 2x/Week Duration of Treatment 12 weeks Plan of Care Start Date 12/21/21 Plan of Care End Date 03/21/22 Therapeutic Interventions Therapeutic Interventions Aquatic Therapy,Balance Training,Gait Training,Home Exercise Program,Manual Therapy,Neuromuscular Re- education,Patient/Caregiver Education,Self-Care/Home Management,Soft Tissue Mobilization,Taping, Therapeutic Activities, Therapeutic Exercises Modalities Cold Pack/Ice Massage Next Visit Focus/Plan Next Note Type Treatment Note Next Visit Plan PN needed next tx (11th visit) *check R ankle lace up brace donned. Aquatic therapy next session, focus NWB in deep water. NExt land: recheck HEP, progress ther ex as toleranted and safety ed WB status.
--- NOTE | 2022-01-31 10:15 | PT.OTN ---
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 (01/31/22) Post-traumatic osteoarthritis, right ankle and foot (01/31/22) Difficulty in walking, not elsewhere classified (01/31/22) Weakness (01/31/22) Physical Therapy Treatment Note PT-OP-A Visit Information Start: 12/20/21 16:26 Freq: Status: Active Protocol: Document 01/31/22 10:15 SAK (Rec: 02/01/22 08:37 [facility] [id number]) Out-Patient Physical Therapy Visit Information Visit Information Visit Type Treatment Note Visit Note PN next visit. Visit Start Time 08:17 Visit Stop Time 09:00 Total Visit Minutes 42 Visit Number 11 Number of MILITARY NURSE Visits 0 Evaluation Information Evaluation Date 12/21/21 Precautions Precautions per protocol in EMR. PMH: Diabetic neuropathy associated with type 2 diabetes mellitus Lumbar back pain with radiculopathy affecting right lower extremity Nonallopathic lesion of lumbar region, not elsewhere classified Pain in knee region after replacement of knee joint Plantar fasciitis of left foot Rheumatoid arthritis neck pain Thoracic region somatic dysfunction Trigger finger, left ring finger Trigger finger, right ring finger carpal tunnel coleen PT-OP-B Current Condition Start: 12/20/21 16:26 Freq: Status: Active Protocol: Document 01/01/22 08:24 SAK (Rec: 01/01/22 09:05 SAK [id number]) Current Condition History of Current Condition Onset Date 10/20/21 Current Complaints right ankle weakness and decreased range of motion, gait difficulty History of Current Condition right ankle hardware removed and 2nd fusion. Wearing walking boot and using knee scooter. Pain currently 01/18. Has done partial weight- bearing both in and out of the boot. Saw Dr. Rowan last week; only doing light-walking wearing boot. Has gone to park a couple times using walking stick level surfaces. Prior Treatments and Tests prior right ankle fusion Future Testing and Treatments Planned Sees Dr. Jin 01/23 or 01/24 Personal Factors Other Personal Factors That May Effect history of depression, neck Therapy/Recovery pain, shoulder pain coleen, coleen wrist pain, history TKA PT-OP-C Subjective Start: 12/20/21 16:26 Freq: Status: Active Protocol: Document 01/31/22 10:15 SAK (Rec: 02/01/22 08:37 [facility] [id number]) OP-PT Subjective Patient Comments Patient Comments No new c/o. Doesn't have ankle brace yet; didn't get ankle brace due to not having prescription with him, will get today right after PT. Denies pain, mild ache behind ankle in am, but otherwise no pain. PT-OP-F Manual Assessment Start: 12/20/21 16:26 Freq: Status: Active Protocol: Document 12/21/21 09:00 [facility] (Rec: 12/21/21 10:25 [facility] [id number]) Manual Assessments Soft Tissue Assessment Soft Tissue Mobility Assessment decreased scar mobility right PT-OP-G Mobility & Gait Start: 12/20/21 16:26 Freq: Status: Active Protocol: Document 12/21/21 09:00 [facility] (Rec: 12/21/21 10:25 [facility] [id number]) OP Mobility Evaluation Bed Mobility Rolling indep Transfers Sit to Stand indep, wearing boot OP Gait Assessment Gait Gait Assistance Required: Independent Distance (Feet) 50 Able to Maintain Weight Bearing Status Yes During Gait Assistive Devices Assistive Device Front Wheeled Walker Orthotic/Prosthetic Devices or Brace: Yes Gait Deviations General Gait Pattern Antalgic,Decreased Stride Length,Decreased Feet Clearance Factors Limiting Gait Function Factors Limiting Gait Function Decreased Strength,Limited Range of Motion,Pain PT-OP-H Neuro Start: 12/20/21 16:26 Freq: Status: Active Protocol: Document 12/21/21 09:00 [facility] (Rec: 12/21/21 10:25 [facility] [id number]) Sensation Evaluation Gross Sensation Gross Sensation Left LE Impaired,Right LE Impaired Sensation Description Numbness Comments Summary Comments peripheral neuropathy PT-OP-J Posture/Palpation/Skin Start: 12/20/21 16:26 Freq: Status: Active Protocol: Document 12/21/21 09:00 [facility] (Rec: 12/21/21 10:25 [facility] [id number]) Palpation Assessment Location right ankle Palpation Findings Edema,Soft Tissue Tightness Palpation Details decreased scar mobility right foot/ankle PT-OP-K Range of Motion Start: 12/20/21 16:26 Freq: Status: Active Protocol: Document 12/21/21 09:00 [facility] (Rec: 12/21/21 10:25 [facility] [id number]) Ankle and Foot Goniometric Range of Motion Ankle and Foot Right Active Ankle/Foot ROM WFL No Dorsiflexion with Knee Flexed 0 Plantarflexion 12 Inversion 9 Eversion 11 Comments -5 deg with knee extended left Ankle/Foot ROM WFL Yes PT-OP-M Strength Start: 12/20/21 16:26 Freq: Status: Active Protocol: Document 12/21/21 09:00 SAK (Rec: 12/21/21 10:25 SAK [id number]) Ankle/Foot Strength Ankle and Foot Manual Muscle Testing Right Dorsiflexion (L4) 3+ Fair+ Plantarflexion (S1) 3+ Fair+ Inversion 3+ Fair+ Eversion (S1) 3+ Fair+ Comments limited MMT due to recentl surgery Left Dorsiflexion (L4) 5 Normal Plantarflexion (S1) 5 Normal Inversion 5 Normal Eversion (S1) 5 Normal PT-OP-Q Treatments Start: 12/20/21 16:26 Freq: Status: Active Protocol: Document 01/30/22 08:17 SP (Rec: 01/30/22 09:12 SP [id number]) Cardio Equipment Recumbent Elliptical ([employer]) Duration (Minutes) 8 Resistance 3 Seat Position 11 Other shoe: 696 steps Therapeutic Exercises Sidelying Exercises ankle [address] way Sidelying Exercise Name added to HEP Side right Resistance TB #1 Equipment Used pt required demo for assist. Reps/Minutes x10 each Comments max cues for set up and direction performance- gave HO today recall follow Sitting Exercises BAPS Sitting Exercise Name df,pf, inv,ev Equipment Used L3 Reps/Minutes 10x ea Comments gentle, pain-free just of range challenge with PF Gait Training Gait Activity 2 Description Gait training with sneaker, WBAT Device Used [employer] Level of Assistance S Surface firm Distance/Duration 100 ft x2 Treatment Focus 100% wB w/ shoe, stability 2pt gait Comments good feedback response, painfree, stable. Instructe fill script for lace up ankle brace reported when arrived received at ortho F/U. Neuro Re-Education Treatment Balance Activities corner balance Details NBOS, stagger Comments NBOS: EC 30s- small sway self recoveries. Stagger 1 space between BLE: Self-Care/Home Management Treatment Education Patient Education Safety Other Education education on fill script R ankle lace up brace. 2x10 reps only ankle TB HEP. PT-OP-R Modalities Start: 12/20/21 16:26 Freq: Status: Active Protocol: Document 01/16/22 10:32 SAK (Rec: 03/08/22 11:25 [facility] [id number]) Hot Pack/Cold Pack Treatment right foot/ankle Patient Position Hooklying Treatment Duration (minutes) 13 Patient Tolerance Good Comments ice massage posterior tib prior to soft tissue mobilization, cryocuff at end of session PT-OP-S Aquatic Treatment Start: 12/20/21 16:26 Freq: Status: Active Protocol: Document 01/31/22 10:15 [facility] (Rec: 02/01/22 08:37 [facility] [id number]) Aquatics Treatment Pool Entry/Exit Pool Entry/Exit Method Stairs Assistance Independent Water Walking forward Water Level Chest Level Level of Assistance Verbal Cues Backwards Water Level Chest Level Level of Assistance Verbal Cues [place] January Water Level Chest Level Comments arms HABD/ADD january kick Water Level Chest Level Level of Assistance Verbal Cues march Water Level Chest Level Level of Assistance Verbal Cues Comments reaching to opp side Lower Extremity Exercises 4 way hip Body Position Standing Water Level Chest Level Reps/Duration 15 all directions B knee flex/ext Body Position Standing Water Level Chest Level Reps/Duration 10x2 ankle df/pf Body Position Standing Water Level Chest Level Reps/Duration 10x2 Lower Extremity Stretches HS, Gastroc, Soleus Body Position Standing Water Level Chest Level Reps/Duration 2 x 30 ea B [place] Activities [place] Activities Bicycle,Bicycle Backwards, Cross [place],Running Other Activities abdominal pull down corner pendulum hips 90 degrees reclining torso rotation Equipment belt, BBs Duration 15 Comments encouraging full available ROM at ankle PT-OP-T Assessment and Plan Start: 12/20/21 16:26 Freq: Status: Active Protocol: Document 01/31/22 10:15 [facility] (Rec: 02/01/22 08:37 [facility] [id number]) Physical Therapy Assessment Goals Three Impairment decreased ROM and strength right ankle Short Term Goal (STG) patient to be independent with HEP for purposes of ROM and strengthening right ankle 01/30/22: pt requires max cuing for set up and directioning with TB ankle HEP and allowable reps comfort not over do it 2x10, painfree. STG Duration 01/18/22 (progressing 01/30/22) Coater Associate Goal (LTG) Patient ROM WFL, and strength right ankle at least 4+/5 to allow him to return to usual activities LTG Duration 03/21/22 Two Impairment swelling right foot and ankle Short Term Goal (STG) Patient to demonstrate good understanding of edema reduction to include elevation , ice, compression 01/30/22: pt education CP after HEP to allow swelling reduction. STG Duration 01/18/22 Coater Associate Goal (LTG) Decrease swelling to withing 2 cm measurements of right for improved right ankle function for all usual activities LTG Duration 03/21/22 One Impairment ambulating with walking boot, antalgic gait with walker household gait Short Term Goal (STG) Progress to full weight- bearing in boot per protocol with min to no increase in pain 01/30/22: Goal MET: pt told last Th ok to DC boot, get hiking boot and given script for lace up R ankle brace for added stability. STG Duration 01/18/22 -Goal Met Coater Associate Goal (LTG) Patient will be able to ambulate with normal shoe with minimal to no limp with least restrictive assistive device to allow him to return to walking his dog, going fishing . 01/30/22: progressing: Pt wearing shoe upon arrival. states able to walk about 1 hr with walk sticks dog with no pain, careful walking, not need leash, demonstrates antalgic gait limp. LTG Duration 03/21/22 (progressing 01/30/22) Assessment Summary Assessment Good tolerance for all aquatiac therapy activities, steady progress with minimal pain, improved walking tolerance, now walking with shoe, plans to get ankle brace today. Physical Therapy Plan Frequency and Duration Frequency of Treatment 2x/Week Duration of Treatment 12 weeks Plan of Care Start Date 12/21/21 Plan of Care End Date 03/21/22 Therapeutic Interventions Therapeutic Interventions Aquatic Therapy,Balance Training,Gait Training,Home Exercise Program,Manual Therapy,Neuromuscular Re- education,Patient/Caregiver Education,Self-Care/Home Management,Soft Tissue Mobilization,Taping, Therapeutic Activities, Therapeutic Exercises Modalities Cold Pack/Ice Massage Next Visit Focus/Plan Next Note Type Treatment Note Next Visit Plan Check ankle brace for fit and function. Continue gait training, ther ex for ankle ROM and strengthening.
--- NOTE | 2022-02-06 11:06 | PT.OTN ---
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 PMH: Diabetic neuropathy associated with type 2 diabetes mellitus Lumbar back pain with radiculopathy affecting right lower extremity Nonallopathic lesion of lumbar region, not elsewhere classified Pain in knee region after replacement of knee joint Plantar fasciitis of left foot Rheumatoid arthritis neck pain Thoracic region somatic dysfunction Trigger finger, left ring finger Trigger finger, right ring finger carpal tunnel coleen PT-OP-B Current Condition Start: 12/20/21 16:26 Freq: Status: Active Protocol: Document 01/01/22 08:24 SAK (Rec: 01/01/22 09:05 SAK [id number]) Current Condition History of Current Condition Onset Date 10/20/21 Current Complaints right ankle weakness and decreased range of motion, gait difficulty History of Current Condition right ankle hardware removed and 2nd fusion. Wearing walking boot and using knee scooter. Pain currently 3/10. Has done partial weight- bearing both in and out of the boot. Saw Dr. Rowan last week; only doing light-walking wearing boot. Has gone to park a couple times using walking stick level surfaces. Prior Treatments and Tests prior right ankle fusion Future Testing and Treatments Planned Sees Dr. Jin 01/23 or 01/24 Personal Factors Other Personal Factors That May Effect history of depression, neck Therapy/Recovery pain, shoulder pain coleen, coleen wrist pain, history TKA PT-OP-C Subjective Start: 12/20/21 16:26 Freq: Status: Active Protocol: Document 02/06/22 08:14 SAK (Rec: 02/06/22 09:01 SAK [id number]) OP-PT Subjective Patient Comments Patient Comments Reports not wearing ankle brace because his insurance won't cover it and he can't afford on his own. Agreeable to contact physician by end of day if doesn't hear from them , also agreeable to wear boot until able to obtain ASO per physician and to problem solve that with then. PT-OP-F Manual Assessment Start: 12/20/21 16:26 Freq: Status: Active Protocol: Document 12/21/21 09:00 [facility] (Rec: 12/21/21 10:25 [facility] [id number]) Manual Assessments Soft Tissue Assessment Soft Tissue Mobility Assessment decreased scar mobility right PT-OP-G Mobility & Gait Start: 12/20/21 16:26 Freq: Status: Active Protocol: Document 12/21/21 09:00 [facility] (Rec: 12/21/21 10:25 [facility] [id number]) OP Mobility Evaluation Bed Mobility Rolling indep Transfers Sit to Stand indep, wearing boot OP Gait Assessment Gait Gait Assistance Required: Independent Distance (Feet) 50 Able to Maintain Weight Bearing Status Yes During Gait Assistive Devices Assistive Device Front Wheeled Walker Orthotic/Prosthetic Devices or Brace: Yes Gait Deviations General Gait Pattern Antalgic,Decreased Stride Length,Decreased Feet Clearance Factors Limiting Gait Function Factors Limiting Gait Function Decreased Strength,Limited Range of Motion,Pain PT-OP-H Neuro Start: 12/20/21 16:26 Freq: Status: Active Protocol: Document 12/21/21 09:00 [facility] (Rec: 12/21/21 10:25 [facility] [id number]) Sensation Evaluation Gross Sensation Gross Sensation Left LE Impaired,Right LE Impaired Sensation Description Numbness Comments Summary Comments peripheral neuropathy PT-OP-J Posture/Palpation/Skin Start: 12/20/21 16:26 Freq: Status: Active Protocol: Document 12/21/21 09:00 [facility] (Rec: 12/21/21 10:25 [facility] [id number]) Palpation Assessment Location right ankle Palpation Findings Edema,Soft Tissue Tightness Palpation Details decreased scar mobility right foot/ankle PT-OP-K Range of Motion Start: 12/20/21 16:26 Freq: Status: Active Protocol: Document 12/21/21 09:00 [facility] (Rec: 12/21/21 10:25 [facility] [id number]) Ankle and Foot Goniometric Range of Motion Ankle and Foot Right Active Ankle/Foot ROM WFL No Dorsiflexion with Knee Flexed 0 Plantarflexion 12 Inversion 9 Eversion 11 Comments -5 deg with knee extended left Ankle/Foot ROM WFL Yes PT-OP-M Strength Start: 12/20/21 16:26 Freq: Status: Active Protocol: Document 12/21/21 09:00 [facility] (Rec: 12/21/21 10:25 [facility] [id number]) Ankle/Foot Strength Ankle and Foot Manual Muscle Testing Right Dorsiflexion (L4) 3+ Fair+ Plantarflexion (S1) 3+ Fair+ Inversion 3+ Fair+ Eversion (S1) 3+ Fair+ Comments limited MMT due to recentl surgery Left Dorsiflexion (L4) 5 Normal Plantarflexion (S1) 5 Normal Inversion 5 Normal Eversion (S1) 5 Normal PT-OP-Q Treatments Start: 12/20/21 16:26 Freq: Status: Active Protocol: Document 02/06/22 08:14 [facility] (Rec: 02/06/22 09:01 [facility] [id number]) Cardio Equipment Recumbent Elliptical (Cool Containers) Duration (Minutes) 8 Resistance 3 Seat Position 11 Therapeutic Exercises Supine Exercises ankle 4-way Equipment Used L2 TB Reps/Minutes 10x ea ankle damian Reps/Minutes 5x ea Sitting Exercises BAPS Sitting Exercise Name df,pf, inv,ev Equipment Used L3 Reps/Minutes 10x ea Comments gentle, pain-free just of range challenge with PF Manual Therapy Treatment Soft Tissue Mobilization right ankle Body Location R ankle Mobilization Type Myofascial Release,Other Intensity/Depth Deep Body Position Supine Comments R anterior tibialis, post tib, extensor digitorium, scar Self-Care/Home Management Treatment Education Patient Education Safety Other Education PT contacted doctor Harpal's office, patient to wear boot for weight-bearing until obtains ASO, call Dr. Zee 's office if doesn't hear from them by end of day. PT-OP-R Modalities Start: 12/20/21 16:26 Freq: Status: Active Protocol: Document 01/16/22 10:32 [facility] (Rec: 01/16/22 11:25 [facility] [id number]) Hot Pack/Cold Pack Treatment right foot/ankle Patient Position Hooklying Treatment Duration (minutes) 13 Patient Tolerance Good Comments ice massage posterior tib prior to soft tissue mobilization, cryocuff at end of session PT-OP-S Aquatic Treatment Start: 12/20/21 16:26 Freq: Status: Active Protocol: Document 01/31/22 10:15 [facility] (Rec: 02/01/22 08:37 [facility] [id number]) Aquatics Treatment Pool Entry/Exit Pool Entry/Exit Method Stairs Assistance Independent Water Walking forward Water Level Chest Level Level of Assistance Verbal Cues Backwards Water Level Chest Level Level of Assistance Verbal Cues Sarah January Water Level Chest Level Comments arms HABD/ADD january kick Water Level Chest Level Level of Assistance Verbal Cues january Water Level Chest Level Level of Assistance Verbal Cues Comments reaching to opp side Lower Extremity Exercises 4 way hip Body Position Standing Water Level Chest Level Reps/Duration 15 all directions B knee flex/ext Body Position Standing Water Level Chest Level Reps/Duration 10x2 ankle df/pf Body Position Standing Water Level Chest Level Reps/Duration 10x2 Lower Extremity Stretches HS, Gastroc, Soleus Body Position Standing Water Level Chest Level Reps/Duration 2 x 30 ea B [place] Activities [place] Activities Bicycle,Bicycle Backwards, Cross [place],Running Other Activities abdominal pull down corner pendulum hips 90 degrees reclining torso rotation Equipment belt, BBs Duration 15 Comments encouraging full available ROM at ankle PT-OP-T Assessment and Plan Start: 12/20/21 16:26 Freq: Status: Active Protocol: Document 02/06/22 08:14 [facility] (Rec: 02/06/22 09:01 [facility] [id number]) Physical Therapy Assessment Goals Three Impairment decreased ROM and strength right ankle Short Term Goal (STG) patient to be independent with HEP for purposes of ROM and strengthening right ankle 01/30/22: pt requires max cuing for set up and directioning with TB ankle HEP and allowable reps comfort not over do it 2x10, painfree. STG Duration 01/18/22 (progressing 01/30/22) Vat Packer Goal (LTG) Patient ROM WFL, and strength right ankle at least 4+/5 to allow him to return to usual activities LTG Duration 03/21/22 Two Impairment swelling right foot and ankle Short Term Goal (STG) Patient to demonstrate good understanding of edema reduction to include elevation , ice, compression 01/30/22: pt education CP after HEP to allow swelling reduction. STG Duration 01/18/22 Vat Packer Goal (LTG) Decrease swelling to withing 2 cm measurements of right for improved right ankle function for all usual activities LTG Duration 03/21/22 One Impairment ambulating with walking boot, antalgic gait with walker household gait Short Term Goal (STG) Progress to full weight- bearing in boot per protocol with min to no increase in pain 01/30/22: Goal MET: pt told last Th ok to DC boot, get hiking boot and given script for lace up R ankle brace for added stability. STG Duration 01/18/22 -Goal Met Halfway Goal (LTG) Patient will be able to ambulate with normal shoe with minimal to no limp with least restrictive assistive device to allow him to return to walking his dog, going fishing . 01/30/22: progressing: Pt wearing shoe upon arrival. states able to walk about 1 hr with walk sticks dog with no pain, careful walking, not need leash, demonstrates antalgic gait limp. LTG Duration 03/21/22 (progressing 01/30/22) Assessment Summary Assessment Contacted Dr. Rowan's office who stated no walking without boot until patient obtains ASO as prescribed; patient to follow-up with Dr. Rowan's office. Physical Therapy Plan Frequency and Duration Frequency of Treatment 2x/Week Duration of Treatment 12 weeks Plan of Care Start Date 12/21/21 Plan of Care End Date 03/21/22 Therapeutic Interventions Therapeutic Interventions Aquatic Therapy,Balance Training,Gait Training,Home Exercise Program,Manual Therapy,Neuromuscular Re- education,Patient/Caregiver Education,Self-Care/Home Management,Soft Tissue Mobilization,Taping, Therapeutic Activities, Therapeutic Exercises Modalities Cold Pack/Ice Massage Next Visit Focus/Plan Next Note Type Treatment Note Next Visit Plan Proceed with PT per physician recommendations; asked for updated prescription with precautions if different from post-op. At this time no weight-bearing exercises without boot or brace (ASO).
--- NOTE | 2022-02-07 17:31 | PT.OTN ---
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 (02/07/22) Post-traumatic osteoarthritis, right ankle and foot (02/07/22) Difficulty in walking, not elsewhere classified (02/07/22) Weakness (02/07/22) Physical Therapy Treatment Note PT-OP-A Visit Information Start: 12/20/21 16:26 Freq: Status: Active Protocol: Document 02/07/22 17:25 SAK (Rec: 02/07/22 17:31 SAK [id number]) Out-Patient Physical Therapy Visit Information Visit Information Visit Type Aquatic Treatment Note Visit Start Time 10:15 Visit Stop Time 11:00 Total Visit Minutes 45 Visit Number 13 Evaluation Information Evaluation Date 12/21/21 Precautions Precautions per protocol in EMR. PMH: Diabetic neuropathy associated with type 2 diabetes mellitus Lumbar back pain with radiculopathy affecting right lower extremity Nonallopathic lesion of lumbar region, not elsewhere classified Pain in knee region after replacement of knee joint Plantar fasciitis of left foot Rheumatoid arthritis neck pain Thoracic region somatic dysfunction Trigger finger, left ring finger Trigger finger, right ring finger carpal tunnel coleen PT-OP-B Current Condition Start: 12/20/21 16:26 Freq: Status: Active Protocol: Document 01/01/22 08:24 SAK (Rec: 01/01/22 09:05 SAK [id number]) Current Condition History of Current Condition Onset Date 10/20/21 Current Complaints right ankle weakness and decreased range of motion, gait difficulty History of Current Condition right ankle hardware removed and 2nd fusion. Wearing walking boot and using knee scooter. Pain currently 10. Has done partial weight- bearing both in and out of the boot. Saw Dr. Rowan last week; only doing light-walking wearing boot. Has gone to park a couple times using walking stick level surfaces. Prior Treatments and Tests prior right ankle fusion Future Testing and Treatments Planned Sees Dr. Jin 01/23 or 01/24 Personal Factors Other Personal Factors That May Effect history of depression, neck Therapy/Recovery pain, shoulder pain coleen, coleen wrist pain, history TKA PT-OP-C Subjective Start: 12/20/21 16:26 Freq: Status: Active Protocol: Document 02/07/22 17:25 SAK (Rec: 02/07/22 17:31 SAK [id number]) OP-PT Subjective Patient Comments Patient Comments Patient still hasn't obtained ankle brace, isn't as worried about it as PT but promises to speak further with physician for options today. Doesn't wear boot out to pool deck but reports is wearing at home. PT-OP-F Manual Assessment Start: 12/20/21 16:26 Freq: Status: Active Protocol: Document 12/21/21 09:00 [facility] (Rec: 12/21/21 10:25 [facility] [id number]) Manual Assessments Soft Tissue Assessment Soft Tissue Mobility Assessment decreased scar mobility right PT-OP-G Mobility & Gait Start: 12/20/21 16:26 Freq: Status: Active Protocol: Document 12/21/21 09:00 [facility] (Rec: 12/21/21 10:25 [facility] [id number]) OP Mobility Evaluation Bed Mobility Rolling indep Transfers Sit to Stand indep, wearing boot OP Gait Assessment Gait Gait Assistance Required: Independent Distance (Feet) 50 Able to Maintain Weight Bearing Status Yes During Gait Assistive Devices Assistive Device Front Wheeled Walker Orthotic/Prosthetic Devices or Brace: Yes Gait Deviations General Gait Pattern Antalgic,Decreased Stride Length,Decreased Feet Clearance Factors Limiting Gait Function Factors Limiting Gait Function Decreased Strength,Limited Range of Motion,Pain PT-OP-H Neuro Start: 12/20/21 16:26 Freq: Status: Active Protocol: Document 12/21/21 09:00 [facility] (Rec: 12/21/21 10:25 [facility] [id number]) Sensation Evaluation Gross Sensation Gross Sensation Left LE Impaired,Right LE Impaired Sensation Description Numbness Comments Summary Comments peripheral neuropathy PT-OP-J Posture/Palpation/Skin Start: 12/20/21 16:26 Freq: Status: Active Protocol: Document 12/21/21 09:00 [facility] (Rec: 12/21/21 10:25 [facility] [id number]) Palpation Assessment Location right ankle Palpation Findings Edema,Soft Tissue Tightness Palpation Details decreased scar mobility right foot/ankle PT-OP-K Range of Motion Start: 12/20/21 16:26 Freq: Status: Active Protocol: Document 12/21/21 09:00 [facility] (Rec: 12/21/21 10:25 [facility] [id number]) Ankle and Foot Goniometric Range of Motion Ankle and Foot Right Active Ankle/Foot ROM WFL No Dorsiflexion with Knee Flexed 0 Plantarflexion 12 Inversion 9 Eversion 11 Comments -5 deg with knee extended left Ankle/Foot ROM WFL Yes PT-OP-M Strength Start: 12/20/21 16:26 Freq: Status: Active Protocol: Document 12/21/21 09:00 [facility] (Rec: 12/21/21 10:25 [facility] [id number]) Ankle/Foot Strength Ankle and Foot Manual Muscle Testing Right Dorsiflexion (L4) 3+ Fair+ Plantarflexion (S1) 3+ Fair+ Inversion 3+ Fair+ Eversion (S1) 3+ Fair+ Comments limited MMT due to recentl surgery Left Dorsiflexion (L4) 5 Normal Plantarflexion (S1) 5 Normal Inversion 5 Normal Eversion (S1) 5 Normal PT-OP-Q Treatments Start: 12/20/21 16:26 Freq: Status: Active Protocol: Document 02/06/22 08:14 [facility] (Rec: 02/06/22 09:01 [facility] [id number]) Cardio Equipment Recumbent Elliptical ([place]) Duration (Minutes) 8 Resistance 3 Seat Position 11 Therapeutic Exercises Supine Exercises ankle 4-way Equipment Used L2 TB Reps/Minutes 10x ea ankle damian Reps/Minutes 5x ea Sitting Exercises BAPS Sitting Exercise Name df,pf, inv,ev Equipment Used L3 Reps/Minutes 10x ea Comments gentle, pain-free just of range challenge with PF Manual Therapy Treatment Soft Tissue Mobilization right ankle Body Location R ankle Mobilization Type Myofascial Release,Other Intensity/Depth Deep Body Position Supine Comments R anterior tibialis, post tib, extensor digitorium, scar Self-Care/Home Management Treatment Education Patient Education Safety Other Education PT contacted doctor Harpal's office, patient to wear boot for weight-bearing until obtains ASO, call Dr. Zee 's office if doesn't hear from them by end of day. PT-OP-R Modalities Start: 12/20/21 16:26 Freq: Status: Active Protocol: Document 01/16/22 10:32 [facility] (Rec: 01/16/22 11:25 [facility] [id number]) Hot Pack/Cold Pack Treatment right foot/ankle Patient Position Hooklying Treatment Duration (minutes) 13 Patient Tolerance Good Comments ice massage posterior tib prior to soft tissue mobilization, cryocuff at end of session PT-OP-S Aquatic Treatment Start: 12/20/21 16:26 Freq: Status: Active Protocol: Document 02/07/22 17:25 [facility] (Rec: 02/07/22 17:31 [facility] [id number]) Aquatics Treatment Pool Entry/Exit Pool Entry/Exit Method Stairs Assistance Independent Water Walking forward Water Level Chest Level Walking Equipment flotation belt Level of Assistance Verbal Cues Backwards Water Level Chest Level Walking Equipment flotation belt Level of Assistance Verbal Cues [place] January Water Level Chest Level Walking Equipment flotation belt Comments arms HABD/ADD january kick Water Level Chest Level Walking Equipment flotation belt Level of Assistance Verbal Cues january Water Level Chest Level Walking Equipment flotation belt Level of Assistance Verbal Cues Comments reaching to opp side Sideways Water Level Chest Level Walking Equipment flotation belt Level of Assistance Verbal Cues Lower Extremity Exercises 4 way hip Body Position Standing Water Level Chest Level Equipment flotation belt Reps/Duration 15 all directions B knee flex/ext Body Position Standing Water Level Chest Level Equipment flotation belt Reps/Duration 10x2 ankle df/pf Details heel raise, toe raise Body Position Standing Water Level Chest Level Equipment flotation belt Reps/Duration 10x2 Lower Extremity Stretches HS, Gastroc, Soleus Body Position Standing Water Level Chest Level Reps/Duration 2 x 30 ea B [place] Activities [place] Activities Bicycle,Bicycle Backwards, Cross [place],Running Other Activities abdominal pull down corner pendulum hips 90 degrees reclining torso rotation Equipment belt, BBs Duration 15 Comments encouraging full available ROM at ankle PT-OP-T Assessment and Plan Start: 12/20/21 16:26 Freq: Status: Active Protocol: Document 02/07/22 17:25 [facility] (Rec: 02/07/22 17:31 [facility] [id number]) Physical Therapy Assessment Goals Three Impairment decreased ROM and strength right ankle Short Term Goal (STG) patient to be independent with HEP for purposes of ROM and strengthening right ankle 01/30/22: pt requires max cuing for set up and directioning with TB ankle HEP and allowable reps comfort not over do it 2x10, painfree. STG Duration 01/18/22 (progressing 01/30/22) Ob/Gyn Nurse Goal (LTG) Patient ROM WFL, and strength right ankle at least 4+/5 to allow him to return to usual activities LTG Duration 03/21/22 Two Impairment swelling right foot and ankle Short Term Goal (STG) Patient to demonstrate good understanding of edema reduction to include elevation , ice, compression 01/30/22: pt education CP after HEP to allow swelling reduction. STG Duration 01/18/22 Ob/Gyn Nurse Goal (LTG) Decrease swelling to withing 2 cm measurements of right for improved right ankle function for all usual activities LTG Duration 03/21/22 One Impairment ambulating with walking boot, antalgic gait with walker household gait Short Term Goal (STG) Progress to full weight- bearing in boot per protocol with min to no increase in pain 01/30/22: Goal MET: pt told last Th ok to DC boot, get hiking boot and given script for lace up R ankle brace for added stability. STG Duration 01/18/22 -Goal Met Intermediate Goal (LTG) Patient will be able to ambulate with normal shoe with minimal to no limp with least restrictive assistive device to allow him to return to walking his dog, going fishing . 01/30/22: progressing: Pt wearing shoe upon arrival. states able to walk about 1 hr with walk sticks dog with no pain, careful walking, not need leash, demonstrates antalgic gait limp. LTG Duration 03/21/22 (progressing 01/30/22) Assessment Summary Assessment Good tolerance for all aquatic therapy activities with no greater than 20% WB activities . Stressed again importance of wearing boot and consulting with doctor Rowan about ASO brace. Physical Therapy Plan Frequency and Duration Frequency of Treatment 2x/Week Duration of Treatment 12 weeks Plan of Care Start Date 12/21/21 Plan of Care End Date 03/21/22 Therapeutic Interventions Therapeutic Interventions Aquatic Therapy,Balance Training,Gait Training,Home Exercise Program,Manual Therapy,Neuromuscular Re- education,Patient/Caregiver Education,Self-Care/Home Management,Soft Tissue Mobilization,Taping, Therapeutic Activities, Therapeutic Exercises Modalities Cold Pack/Ice Massage Next Visit Focus/Plan Next Note Type Treatment Note Next Visit Plan continue land and aquatic PT per POC.
--- NOTE | 2022-02-13 08:52 | PT.OTN ---
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 (02/13/22) Post-traumatic osteoarthritis, right ankle and foot (02/13/22) Difficulty in walking, not elsewhere classified (02/13/22) Weakness (02/13/22) Physical Therapy Treatment Note PT-OP-A Visit Information Start: 12/20/21 16:26 Freq: Status: Active Protocol: Document 02/13/22 08:12 SP (Rec: 02/13/22 09:02 SP [id number]) Out-Patient Physical Therapy Visit Information Visit Information Visit Type Treatment Note Visit Start Time 08:07 Visit Stop Time 08:52 Total Visit Minutes 45 Visit Number 14 Number of AMF MECHANIC Visits 1 Evaluation Information Evaluation Date 12/21/21 Precautions Precautions per protocol in EMR. PMH: Diabetic neuropathy associated with type 2 diabetes mellitus Lumbar back pain with radiculopathy affecting right lower extremity Nonallopathic lesion of lumbar region, not elsewhere classified Pain in knee region after replacement of knee joint Plantar fasciitis of left foot Rheumatoid arthritis neck pain Thoracic region somatic dysfunction Trigger finger, left ring finger Trigger finger, right ring finger carpal tunnel coleen PT-OP-B Current Condition Start: 12/20/21 16:26 Freq: Status: Active Protocol: Document 01/01/22 08:24 SAK (Rec: 01/01/22 09:05 SAK [id number]) Current Condition History of Current Condition Onset Date 10/20/21 Current Complaints right ankle weakness and decreased range of motion, gait difficulty History of Current Condition right ankle hardware removed and 2nd fusion. Wearing walking boot and using knee scooter. Pain currently 3/10. Has done partial weight- bearing both in and out of the boot. Saw Dr. Rowan last week; only doing light-walking wearing boot. Has gone to park a couple times using walking stick level surfaces. Prior Treatments and Tests prior right ankle fusion Future Testing and Treatments Planned Sees Dr. Jin 01/23 or 01/24 Personal Factors Other Personal Factors That May Effect history of depression, neck Therapy/Recovery pain, shoulder pain coleen, coleen wrist pain, history TKA PT-OP-C Subjective Start: 12/20/21 16:26 Freq: Status: Active Protocol: Document 02/13/22 08:12 SP (Rec: 02/13/22 09:02 SP [id number]) OP-PT Subjective Patient Comments Patient Comments Pt arrives without ASO brace or camboot walking with trek poles and stated having pain over 1-2 MTPs when walking and not sure why. 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 Pt states compliant with band exercises and use of cold pack. PT-OP-F Manual Assessment Start: 12/20/21 16:26 Freq: Status: Active Protocol: Document 12/21/21 09:00 [facility] (Rec: 12/21/21 10:25 [facility] [id number]) Manual Assessments Soft Tissue Assessment Soft Tissue Mobility Assessment decreased scar mobility right PT-OP-G Mobility & Gait Start: 12/20/21 16:26 Freq: Status: Active Protocol: Document 12/21/21 09:00 [facility] (Rec: 12/21/21 10:25 [facility] [id number]) OP Mobility Evaluation Bed Mobility Rolling indep Transfers Sit to Stand indep, wearing boot OP Gait Assessment Gait Gait Assistance Required: Independent Distance (Feet) 50 Able to Maintain Weight Bearing Status Yes During Gait Assistive Devices Assistive Device Front Wheeled Walker Orthotic/Prosthetic Devices or Brace: Yes Gait Deviations General Gait Pattern Antalgic,Decreased Stride Length,Decreased Feet Clearance Factors Limiting Gait Function Factors Limiting Gait Function Decreased Strength,Limited Range of Motion,Pain PT-OP-H Neuro Start: 12/20/21 16:26 Freq: Status: Active Protocol: Document 12/21/21 09:00 [facility] (Rec: 12/21/21 10:25 [facility] [id number]) Sensation Evaluation Gross Sensation Gross Sensation Left LE Impaired,Right LE Impaired Sensation Description Numbness Comments Summary Comments peripheral neuropathy PT-OP-J Posture/Palpation/Skin Start: 12/20/21 16:26 Freq: Status: Active Protocol: Document 12/21/21 09:00 [facility] (Rec: 12/21/21 10:25 [facility] [id number]) Palpation Assessment Location right ankle Palpation Findings Edema,Soft Tissue Tightness Palpation Details decreased scar mobility right foot/ankle PT-OP-K Range of Motion Start: 12/20/21 16:26 Freq: Status: Active Protocol: Document 12/21/21 09:00 [facility] (Rec: 12/21/21 10:25 [facility] [id number]) Ankle and Foot Goniometric Range of Motion Ankle and Foot Right Active Ankle/Foot ROM WFL No Dorsiflexion with Knee Flexed 0 Plantarflexion 12 Inversion 9 Eversion 11 Comments -5 deg with knee extended left Ankle/Foot ROM WFL Yes PT-OP-M Strength Start: 12/20/21 16:26 Freq: Status: Active Protocol: Document 12/21/21 09:00 SAK (Rec: 12/21/21 10:25 SAK [id number]) Ankle/Foot Strength Ankle and Foot Manual Muscle Testing Right Dorsiflexion (L4) 3+ Fair+ Plantarflexion (S1) 3+ Fair+ Inversion 3+ Fair+ Eversion (S1) 3+ Fair+ Comments limited MMT due to recentl surgery Left Dorsiflexion (L4) 5 Normal Plantarflexion (S1) 5 Normal Inversion 5 Normal Eversion (S1) 5 Normal PT-OP-Q Treatments Start: 12/20/21 16:26 Freq: Status: Active Protocol: Document 02/13/22 08:12 SP (Rec: 02/13/22 09:02 SP [id number]) Cardio Equipment Recumbent Elliptical ([employer]) Duration (Minutes) 10 Resistance 4 Seat Position 11 Other 814 steps, shoe donned Therapeutic Exercises Supine Exercises bridge Supine Exercise Name knees bent, B feet flat on table Resistance HEP reviewed Reps/Minutes 10x 2 Comments cued TA fac, painfree range- good response LAQ Supine Exercise Name added to HEP withTB Side right Resistance TB loop #1 Reps/Minutes x20 Comments good for painfree Sidelying Exercises ankle [address] way Sidelying Exercise Name HEP reviewed (performed in sitting) Side right Resistance TB #2 Reps/Minutes x15 each direction Comments Cued for IV set up, and need to do DF hip abduction Sidelying Exercise Name HEP reviewed Side right Reps/Minutes 2x10 Comments cues for stacked on side alignment, R knee straight, core stab Sitting Exercises arch lift Sitting Exercise Name added to HEP Side right Reps/Minutes 2x10 Comments cued lift arch hold 2 sec x10- support ankle stability BAPS Sitting Exercise Name df,pf, inv,ev, CW, CCW Side right Resistance AROM Equipment Used L3 Reps/Minutes 10x ea Comments gentle, pain-free just of range challenge with PF Manual Therapy Treatment Soft Tissue Mobilization scar mobility Body Location R Comments manual, states performs at home- good mobilitiy. Joint Mobilizations MTPs PA Joint R Comments manual 1st MTP PA, instruction on self and manual plantarfascia STMs. Self-Care/Home Management Treatment Education Patient Education Joint Protection,Safety Other Education AMF MECHANIC educated pt PT contacted Dr Rowan's office and directed to continue to educate use of cam boot if not acquired ASO brace and no WB ther ex without brace donned for safety healing, pt verbalized understanding. Initiated RLE LAQ withTB for quad strengthening, arch lift to support foot/ ankle strengthening during WB. PT-OP-R Modalities Start: 12/20/21 16:26 Freq: Status: Active Protocol: Document 01/16/22 10:32 SAK (Rec: 01/16/22 11:25 [facility] [id number]) Hot Pack/Cold Pack Treatment right foot/ankle Patient Position Hooklying Treatment Duration (minutes) 13 Patient Tolerance Good Comments ice massage posterior tib prior to soft tissue mobilization, cryocuff at end of session PT-OP-S Aquatic Treatment Start: 12/20/21 16:26 Freq: Status: Active Protocol: Document 02/07/22 17:25 SAK (Rec: 02/07/22 17:31 [facility] [id number]) Aquatics Treatment Pool Entry/Exit Pool Entry/Exit Method Stairs Assistance Independent Water Walking forward Water Level Chest Level Walking Equipment flotation belt Level of Assistance Verbal Cues Backwards Water Level Chest Level Walking Equipment flotation belt Level of Assistance Verbal Cues [place] March Water Level Chest Level Walking Equipment flotation belt Comments arms HABD/ADD march kick Water Level Chest Level Walking Equipment flotation belt Level of Assistance Verbal Cues march Water Level Chest Level Walking Equipment flotation belt Level of Assistance Verbal Cues Comments reaching to opp side Sideways Water Level Chest Level Walking Equipment flotation belt Level of Assistance Verbal Cues Lower Extremity Exercises 4 way hip Body Position Standing Water Level Chest Level Equipment flotation belt Reps/Duration 15 all directions B knee flex/ext Body Position Standing Water Level Chest Level Equipment flotation belt Reps/Duration 10x2 ankle df/pf Details heel raise, toe raise Body Position Standing Water Level Chest Level Equipment flotation belt Reps/Duration 10x2 Lower Extremity Stretches HS, Gastroc, Soleus Body Position Standing Water Level Chest Level Reps/Duration 2 x 30 ea B [place] Activities [place] Activities Bicycle,Bicycle Backwards, Cross Country,Running Other Activities abdominal pull down corner pendulum hips 90 degrees reclining torso rotation Equipment belt, BBs Duration 15 Comments encouraging full available ROM at ankle PT-OP-T Assessment and Plan Start: 12/20/21 16:26 Freq: Status: Active Protocol: Document 02/13/22 08:12 SP (Rec: 02/13/22 09:02 SP [id number]) Physical Therapy Assessment Goals Three Impairment decreased ROM and strength right ankle Short Term Goal (STG) patient to be independent with HEP for purposes of ROM and strengthening right ankle 01/30/22: pt requires max cuing for set up and directioning with TB ankle HEP and allowable reps comfort not over do it 2x10, painfree. STG Duration 01/18/22 (progressing 01/30/22) [employer] Goal (LTG) Patient ROM WFL, and strength right ankle at least 4+/5 to allow him to return to usual activities LTG Duration 03/21/22 Two Impairment swelling right foot and ankle Short Term Goal (STG) Patient to demonstrate good understanding of edema reduction to include elevation , ice, compression 01/30/22: pt education CP after HEP to allow swelling reduction. STG Duration 01/18/22 [facility] Goal (LTG) Decrease swelling to withing 2 cm measurements of right for improved right ankle function for all usual activities LTG Duration 03/21/22 One Impairment ambulating with walking boot, antalgic gait with walker household gait Short Term Goal (STG) Progress to full weight- bearing in boot per protocol with min to no increase in pain 01/30/22: Goal MET: pt told last Th ok to DC boot, get hiking boot and given script for lace up R ankle brace for added stability. STG Duration 01/18/22 -Goal Met [facility] Goal (LTG) Patient will be able to ambulate with normal shoe with minimal to no limp with least restrictive assistive device to allow him to return to walking his dog, going fishing . 01/30/22: progressing: Pt wearing shoe upon arrival. states able to walk about 1 hr with walk sticks dog with no pain, careful walking, not need leash, demonstrates antalgic gait limp. LTG Duration 03/21/22 (progressing 01/30/22) Assessment Summary Assessment Pt limited in BAPS L3 PF transition PF> EV, EV to DF, DF to IV during CW, CCW end range to complete full ROM. Cued slow control in to eversion. Occasional cues for recall rest of ther ex. Pt reported feels muscles with arch lift little discomfort but not painful, will add to his HEP for strengthening, provided HO for recall. REviewed end tx when WB R foot wearing camboot or ASO brace. Physical Therapy Plan Frequency and Duration Frequency of Treatment 2x/Week Duration of Treatment 12 weeks Plan of Care Start Date 12/21/21 Plan of Care End Date 03/21/22 Therapeutic Interventions Therapeutic Interventions Aquatic Therapy,Balance Training,Gait Training,Home Exercise Program,Manual Therapy,Neuromuscular Re- education,Patient/Caregiver Education,Self-Care/Home Management,Soft Tissue Mobilization,Taping, Therapeutic Activities, Therapeutic Exercises Modalities Cold Pack/Ice Massage Next Visit Focus/Plan Next Note Type Treatment Note Next Visit Plan Recheck wearing cam boot or ASO R ankle brace next appt. Revisit cheaper similar ASO brace given HO online and if purchased. At this time no weight-bearing exercises without boot or brace (ASO). Continue per POC.
--- NOTE | 2022-02-14 10:04 | PT-OP ANOTE ---
Patient cancelled due to illness.
--- NOTE | 2022-02-20 09:09 | PT.OTN ---
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 (02/20/22) Post-traumatic osteoarthritis, right ankle and foot (02/20/22) Difficulty in walking, not elsewhere classified (02/20/22) Weakness (02/20/22) Physical Therapy Treatment Note PT-OP-A Visit Information Start: 12/20/21 16:26 Freq: Status: Active Protocol: Document 02/20/22 08:20 SAK (Rec: 02/20/22 08:47 [facility] [id number]) Out-Patient Physical Therapy Visit Information Visit Information Visit Type Treatment Note Visit Start Time 08:16 Visit Stop Time 09:06 Total Visit Minutes 50 Visit Number 15 Number of DETAIL SERGEANT Visits 0 Evaluation Information Evaluation Date 02/20/22 PT-OP-B Current Condition Start: 12/20/21 16:26 Freq: Status: Active Protocol: Document 01/01/22 08:24 SAK (Rec: 01/01/22 09:05 [facility] [id number]) Current Condition History of Current Condition Onset Date 10/20/21 Current Complaints right ankle weakness and decreased range of motion, gait difficulty History of Current Condition right ankle hardware removed and 2nd fusion. Wearing walking boot and using knee scooter. Pain currently 01/18. Has done partial weight- bearing both in and out of the boot. Saw Dr. Rowan last week; only doing light-walking wearing boot. Has gone to park a couple times using walking stick level surfaces. Prior Treatments and Tests prior right ankle fusion Future Testing and Treatments Planned Sees Dr. Jin 01/23 or 01/24 Personal Factors Other Personal Factors That May Effect history of depression, neck Therapy/Recovery pain, shoulder pain coleen, coleen wrist pain, history TKA PT-OP-C Subjective Start: 12/20/21 16:26 Freq: Status: Active Protocol: Document 02/20/22 08:20 SAK (Rec: 02/20/22 08:47 [facility] [id number]) OP-PT Subjective Patient Comments Patient Comments Patient arrives wearing camboot, no assistive device. States he has walked level on sidewalk without his boot up to a mile. Continues to report brace too expensive, despite given information for cheaper location to obtain brace. Again urged to obtain ASO, given information. Follow-up with Dr. Rowan next week. PT-OP-F Manual Assessment Start: 12/20/21 16:26 Freq: Status: Active Protocol: Document 12/21/21 09:00 [facility] (Rec: 12/21/21 10:25 [facility] [id number]) Manual Assessments Soft Tissue Assessment Soft Tissue Mobility Assessment decreased scar mobility right PT-OP-G Mobility & Gait Start: 12/20/21 16:26 Freq: Status: Active Protocol: Document 12/21/21 09:00 [facility] (Rec: 12/21/21 10:25 [facility] [id number]) OP Mobility Evaluation Bed Mobility Rolling indep Transfers Sit to Stand indep, wearing boot OP Gait Assessment Gait Gait Assistance Required: Independent Distance (Feet) 50 Able to Maintain Weight Bearing Status Yes During Gait Assistive Devices Assistive Device Front Wheeled Walker Orthotic/Prosthetic Devices or Brace: Yes Gait Deviations General Gait Pattern Antalgic,Decreased Stride Length,Decreased Feet Clearance Factors Limiting Gait Function Factors Limiting Gait Function Decreased Strength,Limited Range of Motion,Pain PT-OP-H Neuro Start: 12/20/21 16:26 Freq: Status: Active Protocol: Document 12/21/21 09:00 [facility] (Rec: 12/21/21 10:25 [facility] [id number]) Sensation Evaluation Gross Sensation Gross Sensation Left LE Impaired,Right LE Impaired Sensation Description Numbness Comments Summary Comments peripheral neuropathy PT-OP-J Posture/Palpation/Skin Start: 12/20/21 16:26 Freq: Status: Active Protocol: Document 12/21/21 09:00 [facility] (Rec: 12/21/21 10:25 [facility] [id number]) Palpation Assessment Location right ankle Palpation Findings Edema,Soft Tissue Tightness Palpation Details decreased scar mobility right foot/ankle PT-OP-K Range of Motion Start: 12/20/21 16:26 Freq: Status: Active Protocol: Document 12/21/21 09:00 [facility] (Rec: 12/21/21 10:25 [facility] [id number]) Ankle and Foot Goniometric Range of Motion Ankle and Foot Right Active Ankle/Foot ROM WFL No Dorsiflexion with Knee Flexed 0 Plantarflexion 12 Inversion 9 Eversion 11 Comments -5 deg with knee extended left Ankle/Foot ROM WFL Yes PT-OP-M Strength Start: 12/20/21 16:26 Freq: Status: Active Protocol: Document 12/21/21 09:00 [facility] (Rec: 12/21/21 10:25 [facility] [id number]) Ankle/Foot Strength Ankle and Foot Manual Muscle Testing Right Dorsiflexion (L4) 3+ Fair+ Plantarflexion (S1) 3+ Fair+ Inversion 3+ Fair+ Eversion (S1) 3+ Fair+ Comments limited MMT due to recentl surgery Left Dorsiflexion (L4) 5 Normal Plantarflexion (S1) 5 Normal Inversion 5 Normal Eversion (S1) 5 Normal PT-OP-Q Treatments Start: 12/20/21 16:26 Freq: Status: Active Protocol: Document 02/20/22 08:20 [facility] (Rec: 02/20/22 08:47 [facility] [id number]) Therapeutic Exercises Supine Exercises bridge Supine Exercise Name knees bent, B feet flat on table Resistance HEP reviewed Reps/Minutes 10x 2 Comments cued TA fac, painfree range- good response LAQ Supine Exercise Name added to HEP withTB Side right Resistance TB loop #1 Reps/Minutes x20 Comments good for painfree Sidelying Exercises ankle [address] way Sidelying Exercise Name HEP reviewed (performed in sitting) Side right Resistance TB #2 Reps/Minutes x15 each direction Comments Cued for IV set up, and need to do DF hip abduction Sidelying Exercise Name HEP reviewed Side right Reps/Minutes 2x10 Comments cues for stacked on side alignment, R knee straight, core stab Sitting Exercises LAQ Resistance L3 TB Reps/Minutes 10x arch lift Side right Reps/Minutes 2x10 Comments cued lift arch hold 2 sec x10- support ankle stability BAPS Sitting Exercise Name df,pf, inv,ev, CW, CCW Side right Resistance AROM Equipment Used L3 Reps/Minutes 10x ea Comments gentle, pain-free just of range challenge with PF Manual Therapy Treatment Soft Tissue Mobilization scar mobility Body Location R Comments manual, states performs at home- good mobilitiy. tib post Body Location R Mobilization Type Myofascial Release plantar fascia Mobilization Type Strumming Intensity/Depth Deep Body Position Supine Comments Irritation medial base of heel . Self-Care/Home Management Treatment Education Patient Education Joint Protection,Safety Other Education Again urged patient to obtain ASO, directed to continue to educate use of cam boot if not acquired ASO brace and no WB ther ex without brace donned for safety healing, pt verbalized understanding. PT-OP-R Modalities Start: 12/20/21 16:26 Freq: Status: Active Protocol: Document 01/16/22 10:32 [facility] (Rec: 01/16/22 11:25 [facility] [id number]) Hot Pack/Cold Pack Treatment right foot/ankle Patient Position Hooklying Treatment Duration (minutes) 13 Patient Tolerance Good Comments ice massage posterior tib prior to soft tissue mobilization, cryocuff at end of session PT-OP-S Aquatic Treatment Start: 12/20/21 16:26 Freq: Status: Active Protocol: Document 02/07/22 17:25 [facility] (Rec: 02/07/22 17:31 [facility] [id number]) Aquatics Treatment Pool Entry/Exit Pool Entry/Exit Method Stairs Assistance Independent Water Walking forward Water Level Chest Level Walking Equipment flotation belt Level of Assistance Verbal Cues Backwards Water Level Chest Level Walking Equipment flotation belt Level of Assistance Verbal Cues [place] January Water Level Chest Level Walking Equipment flotation belt Comments arms HABD/ADD january kick Water Level Chest Level Walking Equipment flotation belt Level of Assistance Verbal Cues march Water Level Chest Level Walking Equipment flotation belt Level of Assistance Verbal Cues Comments reaching to opp side Sideways Water Level Chest Level Walking Equipment flotation belt Level of Assistance Verbal Cues Lower Extremity Exercises 4 way hip Body Position Standing Water Level Chest Level Equipment flotation belt Reps/Duration 15 all directions B knee flex/ext Body Position Standing Water Level Chest Level Equipment flotation belt Reps/Duration 10x2 ankle df/pf Details heel raise, toe raise Body Position Standing Water Level Chest Level Equipment flotation belt Reps/Duration 10x2 Lower Extremity Stretches HS, Gastroc, Soleus Body Position Standing Water Level Chest Level Reps/Duration 2 x 30 ea B [place] Activities [place] Activities Bicycle,Bicycle Backwards, Cross [place],Running Other Activities abdominal pull down corner pendulum hips 90 degrees reclining torso rotation Equipment belt, BBs Duration 15 Comments encouraging full available ROM at ankle PT-OP-T Assessment and Plan Start: 12/20/21 16:26 Freq: Status: Active Protocol: Document 02/20/22 08:20 [facility] (Rec: 02/20/22 08:47 [facility] [id number]) Physical Therapy Assessment Goals Three Impairment decreased ROM and strength right ankle Short Term Goal (STG) patient to be independent with HEP for purposes of ROM and strengthening right ankle 01/30/22: pt requires max cuing for set up and directioning with TB ankle HEP and allowable reps comfort not over do it 2x10, painfree. STG Duration 01/18/22 (progressing 01/30/22) [facility] Goal (LTG) Patient ROM WFL, and strength right ankle at least 4+/5 to allow him to return to usual activities LTG Duration 03/21/22 Two Impairment swelling right foot and ankle Short Term Goal (STG) Patient to demonstrate good understanding of edema reduction to include elevation , ice, compression 01/30/22: pt education CP after HEP to allow swelling reduction. STG Duration 01/18/22 [facility] Goal (LTG) Decrease swelling to withing 2 cm measurements of right for improved right ankle function for all usual activities LTG Duration 03/21/22 One Impairment ambulating with walking boot, antalgic gait with walker household gait Short Term Goal (STG) Progress to full weight- bearing in boot per protocol with min to no increase in pain 01/30/22: Goal MET: pt told last Th ok to DC boot, get hiking boot and given script for lace up R ankle brace for added stability. STG Duration 01/18/22 -Goal Met [facility] Goal (LTG) Patient will be able to ambulate with normal shoe with minimal to no limp with least restrictive assistive device to allow him to return to walking his dog, going fishing . 01/30/22: progressing: Pt wearing shoe upon arrival. states able to walk about 1 hr with walk sticks dog with no pain, careful walking, not need leash, demonstrates antalgic gait limp. LTG Duration 03/21/22 (progressing 01/30/22) Assessment Summary Assessment Patient tolerating ex without pain. ankle inv,ev, pf 4/5, df 4-/5. Has handouts for all HEP ex but has not been doing df per his report. Wearing cam boot today but has not been wearing for his walks despite continued instruction to wear if doesn't have ASO. Dr. Rowan has been informed . Physical Therapy Plan Frequency and Duration Frequency of Treatment 2x/Week Duration of Treatment 12 weeks Plan of Care Start Date 12/21/21 Plan of Care End Date 03/21/22 Therapeutic Interventions Therapeutic Interventions Aquatic Therapy,Balance Training,Gait Training,Home Exercise Program,Manual Therapy,Neuromuscular Re- education,Patient/Caregiver Education,Self-Care/Home Management,Soft Tissue Mobilization,Taping, Therapeutic Activities, Therapeutic Exercises Modalities Cold Pack/Ice Massage Next Visit Focus/Plan Next Note Type Treatment Note Next Visit Plan aquatic therapy next session, last scheduled appointment at this time. Will await Dr. Rowan's recommendation. Patient promises to check at [employer] or [employer] for ASO brace or order from [employer].
--- NOTE | 2022-02-21 08:07 | PT-OP ANOTE ---
cancelled due to upset stomach. Await further recommendations from Dr. Rowan after patient's appointment next week. Will consider discharge to home program.
--- NOTE | 2022-09-19 11:20 | PT.OPDS ---
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 (02/20/22) Post-traumatic osteoarthritis, right ankle and foot (02/20/22) Difficulty in walking, not elsewhere classified (02/20/22) Weakness (02/20/22) Visit Care Team Role Provider Type Tommie Bar DO Family Provider Physician Primary Care Provider Specialty: Family Practice Address: [address] [place] [address], [id number] Email: Corrina Rowan MD Attending Provider Physician Referring Provider Specialty: Orthopedics Orthopedic Surgery Address: [address] [place] [address], [id number] Email: [email or web address] Visit Number Visit Number 15 Discharge Summary PT-OP-B Current Condition Start: 12/20/21 16:26 Freq: Status: Active Protocol: Document 01/01/22 08:24 [facility] (Rec: 01/01/22 09:05 [facility] [id number]) Current Condition History of Current Condition Onset Date 10/20/21 Current Complaints right ankle weakness and decreased range of motion, gait difficulty History of Current Condition right ankle hardware removed and 2nd fusion. Wearing walking boot and using knee scooter. Pain currently 01/18. Has done partial weight- bearing both in and out of the boot. Saw Dr. Rowan last week; only doing light-walking wearing boot. Has gone to park a couple times using walking stick level surfaces. Prior Treatments and Tests prior right ankle fusion Future Testing and Treatments Planned Sees Dr. Jin 01/23 or 01/24 Personal Factors Other Personal Factors That May Effect history of depression, neck Therapy/Recovery pain, shoulder pain coleen, coleen wrist pain, history TKA PT-OP-C Subjective Start: 12/20/21 16:26 Freq: Status: Active Protocol: Document 02/20/22 08:20 [facility] (Rec: 02/20/22 08:47 [facility] [id number]) OP-PT Subjective Patient Comments Patient Comments Patient arrives wearing camboot, no assistive device. States he has walked level on sidewalk without his boot up to a mile. Continues to report brace too expensive, despite given information for cheaper location to obtain brace. Again urged to obtain ASO, given information. Follow-up with Dr. Rowan next week. PT-OP-F Manual Assessment Start: 12/20/21 16:26 Freq: Status: Active Protocol: Document 12/21/21 09:00 [facility] (Rec: 12/21/21 10:25 [facility] [id number]) Manual Assessments Soft Tissue Assessment Soft Tissue Mobility Assessment decreased scar mobility right PT-OP-G Mobility & Gait Start: 12/20/21 16:26 Freq: Status: Active Protocol: Document 12/21/21 09:00 [facility] (Rec: 12/21/21 10:25 [facility] [id number]) OP Mobility Evaluation Bed Mobility Rolling indep Transfers Sit to Stand indep, wearing boot OP Gait Assessment Gait Gait Assistance Required: Independent Distance (Feet) 50 Able to Maintain Weight Bearing Status Yes During Gait Assistive Devices Assistive Device Front Wheeled Walker Orthotic/Prosthetic Devices or Brace: Yes Gait Deviations General Gait Pattern Antalgic,Decreased Stride Length,Decreased Feet Clearance Factors Limiting Gait Function Factors Limiting Gait Function Decreased Strength,Limited Range of Motion,Pain PT-OP-H Neuro Start: 12/20/21 16:26 Freq: Status: Active Protocol: Document 12/21/21 09:00 [facility] (Rec: 12/21/21 10:25 [facility] [id number]) Sensation Evaluation Gross Sensation Gross Sensation Left LE Impaired,Right LE Impaired Sensation Description Numbness Comments Summary Comments peripheral neuropathy PT-OP-J Posture/Palpation/Skin Start: 12/20/21 16:26 Freq: Status: Active Protocol: Document 12/21/21 09:00 [facility] (Rec: 12/21/21 10:25 [facility] [id number]) Palpation Assessment Location right ankle Palpation Findings Edema,Soft Tissue Tightness Palpation Details decreased scar mobility right foot/ankle PT-OP-K Range of Motion Start: 12/20/21 16:26 Freq: Status: Active Protocol: Document 12/21/21 09:00 [facility] (Rec: 12/21/21 10:25 [facility] [id number]) Ankle and Foot Goniometric Range of Motion Ankle and Foot Right Active Ankle/Foot ROM WFL No Dorsiflexion with Knee Flexed 0 Plantarflexion 12 Inversion 9 Eversion 11 Comments -5 deg with knee extended left Ankle/Foot ROM WFL Yes PT-OP-M Strength Start: 12/20/21 16:26 Freq: Status: Active Protocol: Document 12/21/21 09:00 [facility] (Rec: 12/21/21 10:25 [facility] [id number]) Ankle/Foot Strength Ankle and Foot Manual Muscle Testing Right Dorsiflexion (L4) 3+ Fair+ Plantarflexion (S1) 3+ Fair+ Inversion 3+ Fair+ Eversion (S1) 3+ Fair+ Comments limited MMT due to recentl surgery Left Dorsiflexion (L4) 5 Normal Plantarflexion (S1) 5 Normal Inversion 5 Normal Eversion (S1) 5 Normal PT-OP-T Assessment and Plan Start: 12/20/21 16:26 Freq: Status: Active Protocol: Document 09/19/22 11:19 [facility] (Rec: 09/19/22 11:20 [facility] [id number]) Physical Therapy Plan Discharge Physical Therapy Discharge Reasons No Longer Attending PT
== END 2022-09-20 10:52 | disposition home or self-care (01) ==
LOC: PHYS 08:15
PROVIDERS: Family Provider Family Medicine; PCP Family Medicine; Referring Provider Orthopaedic Surgery Foot and Ankle Surgery; Visit Provider Orthopaedic Surgery Foot and Ankle Surgery
DX: M19.171 Post-traumatic osteoarthritis, right ankle and foot (principal); R53.1 Weakness; R26.2 Difficulty in walking, not elsewhere classified; E08.21 Diabetes mellitus due to underlying condition with diabetic nephropathy
CPT/HCPCS: 97110; 97112; 97113; 97116; 97140; 97162; 97535

== ENCOUNTER → 2022-04-11 11:11 | Outpatient (CLI) | payer MEDICARE, OTHER, SELFPAY ==
[2021-12-26 21:16] VITALS: BMI 22.4
[2022-04-11 13:25] LABS: Alanine Aminotransferase 14 IU/L (<50); Albumin 4.2 g/dL (3.5-5.0); Albumin Globulin Ratio 1.6 (1.0-2.8); Alkaline Phosphatase 79 U/L (38-126); Aspartate Aminotransferase 29 IU/L (17-59); BUN Creatinine Ratio 18.9 (6-22); Bilirubin Total 0.9 mg/dL (0.2-1.3); Blood Urea Nitrogen 24 mg/dL (9-20); Calcium 8.8 mg/dL (8.4-10.2); Carbon Dioxide 29 mmol/L (22-32); Chloride 98 mmol/L (98-107); Estimated Glomerular Filt Rate > 60 mL/min (>60); Globulin 2.6 g/dL (1.7-4.1); Glucose 163 mg/dL (80-110); HEMOLYSIS < 15 (0-50); Potassium 4.2 mmol/L (3.4-5.1); Sodium 135 mmol/L (137-145); Total Protein 6.8 g/dL (6.3-8.2)
[2022-04-11 13:57] LABS: Prostate Specific Antigen 1.73 ng/mL (0.10-4.00)
[2022-04-11 14:41] LABS: Hemoglobin A1C% w Est Avg Glu 6.3 % (4.0-6.0)
== END ==
PROVIDERS: Family Provider Family Medicine; PCP Family Medicine; Referring Provider Specialist; Visit Provider Specialist
DX: R97.20 Elevated prostate specific antigen [PSA] (principal); E11.42 Type 2 diabetes mellitus with diabetic polyneuropathy; I10 Essential (primary) hypertension
CPT/HCPCS: 36415; 80053; 83036; 84153

== ENCOUNTER 2022-05-17 19:47 | Emergency (ER) | payer MEDICARE, OTHER, SELFPAY ==
[2021-12-26 21:16] VITALS: BMI 22.4
[2022-05-17] VITALS (15 sets, daily range): BP systolic 166–235; BP diastolic 80–107; PULSE 68–83; RESP 16–20; TEMP 36.6; O2SAT 95–100
--- NOTE | 2022-05-17 | DI.CT.S_ITS ---
PROCEDURE: CT ABDOMEN PELVIS W CON INDICATIONS: Upper abdominal pain with intractable vomiting TECHNIQUE: After the administration of IV contrast, axial sections were acquired from the lung bases to the pubic symphysis. Coronal and sagittal reformats were performed. For radiation dose reduction, the following was used: automated exposure control, adjustment of mA and/or kV according to patient size. COMPARISON: [facility], CT, CT ANGIO CHEST ABDOMEN PELVIS, 05/13/2021, 16:01. [facility], MR, MR ABDOMEN MRCP, 05/17/2021, 8:06. [facility], CT, CT ABDOMEN PELVIS W CON, 02/10/2020, 18:15. FINDINGS: Image quality: There is metallic streak artifact secondary to patient's surgical hardware in the lumbar spine limiting evaluation. Lung bases: Unremarkable. Heart: Heart is normal in size. ABDOMEN: Liver: No mass lesion. Gallbladder: Surgically absent. Biliary ducts: There is mild biliary ductal dilatation which appears similar to the prior studies. Pancreas: There is peripancreatic fat stranding and fluid along the length of the pancreas consistent with acute pancreatitis. No definite areas of hypoenhancement to suggest necrosis. No pancreatic duct dilatation. No acute loculated peripancreatic fluid collections. Spleen: Normal in size. Adrenal Glands: No adrenal nodules. Kidneys and Ureters: No hydronephrosis. There are bilateral small renal cysts as well as smaller low-density foci likely representing cysts. Nonspecific perinephric stranding is redemonstrated bilaterally. Stomach and Bowel: There is mild gastric wall thickening most prominent in the antrum. Mild wall thickening also demonstrated involving the distal ileum. The findings may represent reactive changes or mild gastritis/enteritis. There is also mild segmental wall thickening involving the descending and sigmoid colon which may be reactive secondary to free fluid but may also represent a mild infectious or inflammatory colitis. There are surgical sutures along the cecum likely related to prior appendectomy. Peritoneum: There is peripancreatic free fluid as well as free fluid bilaterally in the upper quadrants. A minimal amount of free fluid also extends in the paracolic gutters inferiorly into the pelvis. No free air. Ventral Wall: No hernia. Abdominal Nodes: No retroperitoneal or mesenteric adenopathy by size criteria. Vessels: Aorta and inferior vena cava are normal in size. PELVIS: Pelvic Organs: Unremarkable. Bladder: Unremarkable. Pelvic Nodes: No enlarged lymph nodes. Miscellaneous: No inguinal hernias are seen. Bones: Postsurgical changes are redemonstrated in the lower lumbar spine status post posterior fixation at L2 through S1. Intervertebral spaces are also demonstrated at these levels. Findings are similar to the prior study. Visualized osseous structures demonstrate no suspicious focal lesions. IMPRESSION: 1. Findings consistent with acute pancreatitis without definite evidence of necrosis, pancreatic duct dilatation, or loculated peripancreatic fluid collections. 2. Small amount of intraperitoneal free fluid likely secondary to pancreatitis extending into the pelvis. 3. Mild wall thickening involving the stomach, distal small bowel, and distal colon. The findings may be reactive secondary to free fluid and peritonitis or represent other mild infectious or inflammatory processes. Dictated by: Aydin Dixon M.D. on 05/17/2022 at 22:28 Approved by: Aydin Dixon M.D. on 05/17/2022 at 22:37
[2022-05-17 20:12] LABS: Add Manual Diff / Slide Review NO; Basophils Absolute Auto 0 /uL (0-100); Basophils Percent Auto 0.3 % (0-2); Eosinophils Absolute Auto 0 /uL (0-450); Hematocrit 43.7 % (41-53); Lymphocytes Absolute Auto 2300 /uL (1100-4500); Lymphocytes Percent Auto 19.2 % (25-40); Mean Corpuscular HGB Conc 34.3 % (30-36); Mean Corpuscular Hemoglobin 31.2 PG (26-34); Monocytes Absolute Auto 500 /uL (0-900); Monocytes Percent Auto 4.3 % (3-14); Neutrophils Absolute Auto 8900 /uL (1500-7000); Neutrophils Percent Auto 76.2 % (50-75); Platelet Count 175 X10^3/uL (150-400); Red Blood Cell Count 4.81 X10^6/uL (4.5-5.9); Red Cell Distribution Width 15.1 % (11.6-14.8); White Blood Cell Count 11.7 X10^3/uL (4.5-11.0)
[2022-05-17 20:54] LABS: Appearance Urine UA CLEAR; Bilirubin Urine UA NEGATIVE (NEGATIVE); Color Urine UA YELLOW; Glucose Urine UA TRACE g/dL (Negative); Ketones Urine UA 1+ (NEGATIVE); Leukocyte Esterase Urine UA NEGATIVE (NEGATIVE); Nitrite Urine UA NEGATIVE (Negative); Occult Blood Urine UA 2+ (Negative); Protein Urine UA 3+ (Negative); Specific Gravity Urine UA 1.015 (1.000-1.035); Urobilinogen Urine UA 0.2 E.U./dL (0.2); pH Urine UA 7.5 (4.5-8.0)
--- NOTE | 2022-05-17 20:55 | ED_ITS ---
HPI - Nausea/Vomiting/Diarrhea General Chief complaint: Nausea/Vomiting/Diarrhea Stated complaint: N/V/Cramping Time Seen by Provider: 05/17/22 20:49 Source: patient and EMS Mode of arrival: EMS History of Present Illness HPI Narrative: 71-year-old gentleman with history of diabetes, hypertension, hyperlipidemia, BPH, neuropathic pain who presents with 24 hours of abdominal pain. Initially started in epigastric area the last night with a bit of nausea. By this morning he noticed that it was worse he has been vomiting all day long with persistent right upper abdominal pain. He notes that he has had his gallbladder removed. Did take all of his blood pressure medications this morning however probably vomited them all up. He describes a normal formed bowel movement this morning with no diarrhea. He has not noticed any blood or coffee-ground emesis with all of the vomiting and dry heaves he is having. Describes no headache he notes that he had from upper chest tightness after a particularly violent episode of dry heaving this morning. He has had no additional chest pain or palpitations since. He describes no fevers. He has not had similar pain. Related Data Home Medications Medication Instructions Recorded Confirmed duloxetine 30 mg capsule,delayed 30 mg PO BID 12/26/21 04/17/22 release Previous Rx's Medication Instructions Recorded amlodipine 10 mg tablet See Rx Instructions .Route 12/26/21 .COMPLEX #90 tabs atorvastatin 20 mg tablet 20 mg PO DAILY #90 tabs 12/26/21 gabapentin 600 mg tablet See Rx Instructions .Route 12/26/21 .COMPLEX #540 tabs glipizide 5 mg tablet See Rx Instructions .Route 12/26/21 .COMPLEX #90 tabs metoprolol succinate 50 mg See Rx Instructions .Route 12/26/21 tablet,extended release 24 hr .COMPLEX #180 tabs tamsulosin 0.4 mg capsule See Rx Instructions .Route 12/26/21 .COMPLEX #180 caps Allergies Allergy/AdvReac Type Severity Reaction Status Date / Time latex Allergy Mild RASH/ITCH Verified 04/17/22 07:50 (tape) pollen extracts Allergy Mild SINUS AND Verified 04/17/22 07:50 [POLLEN EXTRACTS] CHEST CONGESTION adhesive tape [ADHESIVE TAPE] AdvReac Unknown ITCHY Verified 04/17/22 07:50 Review of Systems Review of Systems Narrative: Remainder of complete review of systems is otherwise unremarkable except for that included in the HPI. Patient History Medical History (Updated 05/18/22 @ 03:48 by Beth Mcgowan MD) Ankle fracture Anxiety (Unknown) Aortic stenosis, moderate Ascending aorta dilatation Bilateral carotid artery disease (~09/2018) Bilateral carpal tunnel syndrome BPH w urinary obs/LUTS Cervical somatic dysfunction Chronic back pain Chronic kidney disease Chronic pain of right ankle Chronic pain syndrome (Unknown) Coronary artery disease (Unknown) Cranial somatic dysfunction Depression (Unknown) Diabetes (Unknown) Diabetic neuropathy associated with type 2 diabetes mellitus Dyspnea on exertion Erectile dysfunction GERD (gastroesophageal reflux disease) (Unknown) History of ETOH abuse (Unknown) Hyperlipemia (Unknown) Hypertension (Unknown) Leg cramps, sleep related Low back pain (Unknown) Pain in knee region after replacement of knee joint Pancreatitis Pelvic somatic dysfunction Peripheral neuropathy (Unknown) Plantar fasciitis of left foot Rheumatoid arthritis (Unknown) Sacral region somatic dysfunction Seasonal allergic rhinitis Segmental and somatic dysfunction of abdomen and other regions Segmental and somatic dysfunction of rib cage Shoulder pain, bilateral Sleep initiation dysfunction Somatic dysfunction of lower extremity Thoracic region somatic dysfunction Trigger finger, left ring finger Trigger finger, right ring finger Surgical History History of back surgery (~2012) History of lumbar spinal fusion (01/06/20) History of surgery History of surgical removal of skin lesion Hx of cholecystectomy S/P cervical spinal fusion Status post hernia repair Status post knee surgery Vasectomy status Family History Mother Stroke Father Cancer Social History household members: none Smoking Status: Former smoker alcohol intake: current Smoking Status: Former smoker alcohol intake frequency: holidays/special occasions only Alcohol type: beer and wine Substance Use Type: marijuana Exam Initial Vital Signs Initial Vital Signs: Vital Signs Temperature 98 F 05/17/22 19:57 Pulse Rate 80 05/17/22 19:57 Respiratory Rate 20 05/17/22 19:57 Blood Pressure 213/101 H 05/17/22 19:57 Pulse Oximetry 100 05/17/22 19:57 Oxygen Delivery Method 05/17/22 19:57 General: Appears to feel unwell and is in moderate distress secondary to nausea and abdominal pain. Able to give a complete history. HEENT: Dry mucous membranes, normal sclera with reactive pupils, Neck: No JVD, supple Respiratory: Lungs are clear to auscultation, no wheezing no rales no rhonchi. Full and symmetrical air movement Cardiac: Regular rate and rhythm no murmurs no bruits Abdomen: Soft, tender in the epigastrium without rebound or guarding,, good bowel tones, no flank pain Skin: Warm and dry, erythematous almost hive-like rash over the upper chest and anterior shoulders the patient had not noticed previously. It is in a non sun- exposed area Neurologic: Grossly neurologically intact with no obvious asymmetries or abnormalities Extremities: No trauma, well perfused Psych: Cooperative, appropriate insight and affect Course Orders Ordered: ED Orders 05/17/22 19:35 Complete Blood Count AUTO DIFF Stat Comprehensive Metabolic Panel Stat Lipase Stat Troponin I Stat 05/17/22 20:44 Urinalysis and Microscopic Stat Hydromorphone HCl (Hydromorphone 0.5 Mg Inj) 0.5 mg IV Q15MIN PRN PRN Reason: Pain, Last Admin: 05/17/22 22:02 Dose: 0.5 mg Documented By: Admin: 05/17/22 21:18 Dose: 0.5 mg Documented By: NR Discontinued Medications Amlodipine Besylate (Amlodipine 5 Mg Tablet) 10 mg PO NOW ONE Stop: 05/17/22 21:51 Last Admin: 05/17/22 22:02 Dose: 10 mg Documented By: NR Sodium Chloride (Normal Saline 0.9%) 1,000 mls @ 1,000 mls/hr IV BOLUS ONE Stop: 05/17/22 22:07 Last Infusion: 05/18/22 02:29 Dose: 0 mls/hr Documented By: Admin: 05/17/22 21:18 Dose: 1,000 mls/hr Documented By: NR Metoclopramide HCl (Metoclopramide 10 Mg/2 Ml Inj) 10 mg IV NOW ONE Stop: 05/17/22 21:51 Last Admin: 05/17/22 22:02 Dose: 10 mg Documented By: NR Metoprolol Tartrate (Metoprolol Ir 25 Mg Tablet) 50 mg PO NOW ONE Stop: 05/17/22 21:51 Last Admin: 05/17/22 22:02 Dose: 50 mg Documented By: NR Ondansetron HCl (Ondansetron 4 Mg/2 Ml Inj) 4 mg IV NOW ONE Stop: 05/17/22 20:55 Last Admin: 05/17/22 21:03 Dose: 4 mg Documented By: NR Vital Signs Vital signs: Vital Signs - 8 hr 05/17/22 19:57 05/17/22 20:17 05/17/22 20:52 Temperature 98 F Pulse Rate 80 75 83 Respiratory Rate 20 Blood Pressure 213/101 H Pulse Oximetry 100 98 99 Oxygen Delivery Method Room Air 05/17/22 21:00 05/17/22 21:01 05/17/22 21:01 Temperature Pulse Rate 81 83 Respiratory Rate Blood Pressure 201/95 H Pulse Oximetry 99 99 Oxygen Delivery Method 05/17/22 21:43 05/17/22 21:44 05/17/22 21:44 Temperature Pulse Rate 80 78 Respiratory Rate Blood Pressure 231/106 H Pulse Oximetry 99 99 Oxygen Delivery Method 05/17/22 21:46 05/17/22 21:46 Temperature Pulse Rate 76 Respiratory Rate Blood Pressure 212/100 H Pulse Oximetry 98 Oxygen Delivery Method MDM - Nausea/Vomiting/Diarrhea Lab Data Result diagrams: 05/17/22 19:35 05/17/22 19:35 Labs: Lab Results 05/17/22 05/17/22 05/17/22 Range/Units 19:35 19:35 19:35 WBC 11.7 H (4.5-11.0) X10^3/uL RBC 4.81 (4.5-5.9) X10^6/uL Hgb 15.0 (13.5-17.5) g/dL Hct 43.7 (41-53) % MCV 91.0 (80-100) fL MCH 31.2 (26-34) PG MCHC 34.3 (30-36) % RDW 15.1 H (11.6-14.8) % Plt Count 175 (150-400) X10^3/uL Neut % (Auto) 76.2 H (50-75) % Lymph % (Auto) 19.2 L (25-40) % [place] % (Auto) 4.3 (3-14) % Eos % (Auto) 0.0 L (2-4) % Baso % (Auto) 0.3 (0-2) % Neut # (Auto) 8900 H (6272-1745) /uL Lymph # (Auto) 2300 (1337-8530) /uL [place] # (Auto) 500 (0-900) /uL Eos # (Auto) 0 (0-450) /uL Baso # (Auto) 0 (0-100) /uL Sodium 137 (137-145) mmol/L Potassium 4.1 (3.4-5.1) mmol/L Chloride 99 (98-107) mmol/L Carbon Dioxide 21 L (22-32) mmol/L BUN 28 H (9-20) mg/dL Creatinine 1.09 (0.66-1.25) mg/dL Estimated GFR > 60 (>60) mL/min BUN/Creatinine Ratio 25.7 H (6-22) Glucose 213 H (80-110) mg/dL Calcium 8.8 (8.4-10.2) mg/dL Total Bilirubin 1.2 (0.2-1.3) mg/dL AST 45 (17-59) IU/L ALT 27 (<50) IU/L Alkaline Phosphatase 115 (38-126) U/L Troponin I 0.020 (0.01-0.034) ng/mL Total Protein 8.1 (6.3-8.2) g/dL Albumin 4.6 (3.5-5.0) g/dL Globulin 3.5 (1.7-4.1) g/dL Albumin/Globulin Ratio 1.3 (1.0-2.8) Lipase 100 (23-300) U/L Urine Color Urine Appearance Urine pH (4.5-8.0) Ur Specific [place] (1.000-1.035) Urine Protein (Negative) Urine Glucose (UA) (Negative) g/dL Urine Ketones (NEGATIVE) Urine Occult Blood (Negative) Urine Nitrate (Negative) Urine Bilirubin (NEGATIVE) Urine Urobilinogen (0.2) E.U./dL Ur Leukocyte Esterase (NEGATIVE) Urine RBC (0-5/HPF) Urine WBC (0-5/HPF) Ur Squamous Epith Cells (0-5/HPF) Amorphous Sediment Urine Bacteria (None) Hyaline Casts (None) Granular Casts (None) Ur Culture Indicated? 05/17/22 Range/Units 20:44 WBC (4.5-11.0) X10^3/uL RBC (4.5-5.9) X10^6/uL Hgb (13.5-17.5) g/dL Hct (41-53) % MCV (80-100) fL MCH (26-34) PG MCHC (30-36) % RDW (11.6-14.8) % Plt Count (150-400) X10^3/uL Neut % (Auto) (50-75) % Lymph % (Auto) (25-40) % [place] % (Auto) (3-14) % Eos % (Auto) (2-4) % Baso % (Auto) (0-2) % Neut # (Auto) (1464-6125) /uL Lymph # (Auto) (0990-8516) /uL [place] # (Auto) (0-900) /uL Eos # (Auto) (0-450) /uL Baso # (Auto) (0-100) /uL Sodium (137-145) mmol/L Potassium (3.4-5.1) mmol/L Chloride (98-107) mmol/L Carbon Dioxide (22-32) mmol/L BUN (9-20) mg/dL Creatinine (0.66-1.25) mg/dL Estimated GFR (>60) mL/min BUN/Creatinine Ratio (6-22) Glucose (80-110) mg/dL Calcium (8.4-10.2) mg/dL Total Bilirubin (0.2-1.3) mg/dL AST (17-59) IU/L ALT (<50) IU/L Alkaline Phosphatase (38-126) U/L Troponin I (0.01-0.034) ng/mL Total Protein (6.3-8.2) g/dL Albumin (3.5-5.0) g/dL Globulin (1.7-4.1) g/dL Albumin/Globulin Ratio (1.0-2.8) Lipase (23-300) U/L Urine Color Yellow Urine Appearance Clear Urine pH 7.5 (4.5-8.0) Ur Specific [place] 1.015 (1.000-1.035) Urine Protein 3+ H (Negative) Urine Glucose (UA) Trace H (Negative) g/dL Urine Ketones 1+ H (NEGATIVE) Urine Occult Blood 2+ H (Negative) Urine Nitrate Negative (Negative) Urine Bilirubin Negative (NEGATIVE) Urine Urobilinogen 0.2 (0.2) E.U./dL Ur Leukocyte Esterase Negative (NEGATIVE) Urine RBC 1-5/hpf (0-5/HPF) Urine WBC None seen (0-5/HPF) Ur Squamous Epith Cells 0-1 /hpf (0-5/HPF) Amorphous Sediment 1+ Urine Bacteria Few (2-10) H (None) Hyaline Casts 0-1/lpf (None) Granular Casts 0-1/lpf (None) Ur Culture Indicated? Cult not indicated Imaging Data CT scan - abdomen/pelvis: Radiologist's Impression: FINDINGS:? Image quality:? There is metallic streak artifact secondary to patient's surgical hardware in the lumbar spine limiting evaluation.? ? Lung bases:? Unremarkable.? ? Heart:? Heart is normal in size. ? ? ABDOMEN: Liver:? No mass lesion. Gallbladder:? Surgically absent. Biliary ducts:? There is mild biliary ductal dilatation which appears similar to the prior studies. Pancreas:? There is peripancreatic fat stranding and fluid along the length of the pancreas consistent with acute pancreatitis.? No definite areas of hypoenhancement to suggest necrosis.? No pancreatic duct dilatation.? No acute loculated peripancreatic fluid collections. Spleen:? Normal in size.? ? Adrenal Glands:? No adrenal nodules.? ? Kidneys and Ureters:? No hydronephrosis.? There are bilateral small renal cysts as well as smaller low-density foci likely representing cysts.? Nonspecific perinephric stranding is redemonstrated bilaterally. ? ? Stomach and Bowel:? There is mild gastric wall thickening most prominent in the antrum.? Mild wall thickening also demonstrated involving the distal ileum.? The findings may represent reactive changes or mild gastritis/enteritis.? There is also mild segmental wall thickening involving the descending and sigmoid colon which may be reactive secondary to free fluid but may also represent a mild infectious or inflammatory colitis. ?There are surgical sutures along the cecum likely related to prior appendectomy. Peritoneum:? There is peripancreatic free fluid as well as free fluid bilaterally in the upper quadrants.? A minimal amount of free fluid also extends in the paracolic gutters inferiorly into the pelvis.? No free air.? ? Ventral Wall: ? No hernia.? Abdominal Nodes:? No retroperitoneal or mesenteric adenopathy by size criteria.? Vessels:? Aorta and inferior vena cava are normal in size.? ? PELVIS: Pelvic Organs:? Unremarkable.? ? Bladder:? Unremarkable.? ? Pelvic Nodes: No enlarged lymph nodes.? Miscellaneous: No inguinal hernias are seen. ? ? ? Bones:? Postsurgical changes are redemonstrated in the lower lumbar spine status post posterior fixation at L2 through S1.? Intervertebral spaces are also demonstrated at these levels.? Findings are similar to the prior study.? Visualized osseous structures demonstrate no suspicious focal lesions. ? IMPRESSION:? ? 1. Findings consistent with acute pancreatitis without definite evidence of necrosis, pancreatic duct dilatation, or loculated peripancreatic fluid collections. ? 2. Small amount of intraperitoneal free fluid likely secondary to pancreatitis extending into the pelvis. ? 3. Mild wall thickening involving the stomach, distal small bowel, and distal colon.? The findings may be reactive secondary to free fluid and peritonitis or represent other mild infectious or inflammatory processes. ? ? Dictated by: Aydin Dixon M.D. on 05/17/2022 at 22:28 ? ? MDM Narrative Medical decision making narrative: 71-year-old gentleman presents with abdominal pain in the upper quadrants with vomiting. He has responded nicely to fluids. Lipase is normal however CT scan suggests acute pancreatitis with fluid around the pancreas but no evidence of abscess. On re-examination his pain is significantly improved nausea has resolved he is tolerating juanita sera without difficulty. With shared decision making and in light of the normal lipase but abnormal CT findings, significantly improved pain and tolerance of juanita sera we opted to plan for home discharge with clear liquid diet for 1-2 days recognizing that if his symptoms worsen, he develops a fever or new findings he needs to return to the emergency department. At this point there is no evidence of sepsis, acute coronary syndrome, GI bleeding, choledocholithiasis or hepatic abnormalities. Given his inconsistencies between lab, clinical exam and CT scan it is unclear pancreatitis truly is his diagnosis simply has some inflammation secondary to all the emesis. At this time he is clinically stable, pain-free able to drink liquids without difficulty and safe for home discharge. Discharge Plan Departure Patient Disposition: Home Clinical Impression: Vomiting Abdominal pain Qualifiers: Abdominal location: left upper quadrant Qualified Code(s): R10.12 - Left upper quadrant pain Instructions: DI for Pancreatitis, DI for Vomiting -- Adult Activity Restrictions/Additional Instructions: Thank you for coming in today You were given IV fluids as well as nausea medicine and years clinical exam is significantly improved. You tolerated the edge injury on nicely. Your lab work was reassuring however the CT scan of your abdomen suggested that you had inflammation around your pancreas. At this time, you do not clinically have acute pancreatitis however treating this as a developing pancreatitis may prevent the need for re-evaluation in the emergency department. For the next 1-2 days I would suggest a clear liquid diet that does not include any alcohol. If you have fevers, recurrent vomiting, increasing abdominal pain or new findings of concern, please have a very low threshold for returning to the emergency department for further evaluation I wish you the best Prescriptions: No Action amlodipine 10 mg tablet See Rx Instructions .ROUTE .COMPLEX Qty: 90 0RF Dose Instruction: TAKE 1 TABLET BY MOUTH EVERY DAY Rx Instructions: TAKE 1 TABLET BY MOUTH EVERY DAY atorvastatin 20 mg tablet 20 mg PO DAILY Qty: 90 3RF gabapentin 600 mg tablet See Rx Instructions .ROUTE .COMPLEX Qty: 540 0RF Dose Instruction: TAKE 3 TABLETS BY MOUTH TWICE DAILY Rx Instructions: TAKE 3 TABLETS BY MOUTH TWICE DAILY glipizide 5 mg tablet See Rx Instructions .ROUTE .COMPLEX Qty: 90 0RF Dose Instruction: TAKE 1/2 TABLET BY MOUTH TWICE DAILY Rx Instructions: TAKE 1/2 TABLET BY MOUTH TWICE DAILY metoprolol succinate 50 mg tablet extended release 24 hr See Rx Instructions .ROUTE .COMPLEX Qty: 180 3RF Dose Instruction: TAKE 1 TABLET BY MOUTH 2 TIMES A DAY Rx Instructions: TAKE 1 TABLET BY MOUTH 2 TIMES A DAY tamsulosin 0.4 mg capsule See Rx Instructions .ROUTE .COMPLEX Qty: 180 0RF Dose Instruction: TAKE 2 CAPSULES BY MOUTH EVERY EVENING Rx Instructions: TAKE 2 CAPSULES BY MOUTH EVERY EVENING duloxetine 30 mg Capsule,Delayed Release(Dr/Ec) 30 mg PO BID Referrals: Cesar Bar DO [Primary Care Provider] -
[2022-05-17 20:58] LABS: Alanine Aminotransferase 27 IU/L (<50); Albumin 4.6 g/dL (3.5-5.0); Albumin Globulin Ratio 1.3 (1.0-2.8); Alkaline Phosphatase 115 U/L (38-126); Aspartate Aminotransferase 45 IU/L (17-59); BUN Creatinine Ratio 25.7 (6-22); Bilirubin Total 1.2 mg/dL (0.2-1.3); Blood Urea Nitrogen 28 mg/dL (9-20); Calcium 8.8 mg/dL (8.4-10.2); Carbon Dioxide 21 mmol/L (22-32); Chloride 99 mmol/L (98-107); Estimated Glomerular Filt Rate > 60 mL/min (>60); Globulin 3.5 g/dL (1.7-4.1); Glucose 213 mg/dL (80-110); HEMOLYSIS 36 (0-50); Lipase 100 U/L (23-300); Potassium 4.1 mmol/L (3.4-5.1); Sodium 137 mmol/L (137-145); Total Protein 8.1 g/dL (6.3-8.2)
[2022-05-17] MEDS: ONDANSETRON 4 MG/2 ML INJ IV (21:03)
--- NOTE | 2022-05-17 21:03 | PC.NURSE ---
pt has redness across chest, asked pt about having rash or sun exposure. pt said he did not have sun exposure.
[2022-05-17] MEDS: HYDROMORPHONE 0.5 MG INJ IV ×2 (21:18→22:02)
[2022-05-17] MEDS: SODIUM CHLORIDE 0.9% 1,000 ML 1000 ML IV (21:18)
[2022-05-17 21:23] LABS: Amorphous Sediment Urine 1+; Bacteria Urine Few (2-10); Culture Indicated Urine Cult Not Indicated; Granular Casts Urine 0-1/LPF; Hyaline Casts Urine 0-1/LPF; RBC Urine 1-5/HPF (0-5/HPF); Squamous Epithelial Cell Urine 0-1 /HPF (0-5/HPF); WBC Urine None Seen (0-5/HPF)
[2022-05-17] MEDS: METOCLOPRAMIDE 10 MG/2 ML INJ IV (22:02)
[2022-05-17] MEDS: AMLODIPINE 5 MG TABLET 10 MG PO (22:02)
[2022-05-17] MEDS: METOPROLOL IR 25 MG TABLET 50 MG PO (22:02)
[2022-05-18] VITALS (17 sets, daily range): BP systolic 125–238; BP diastolic 52–111; PULSE 70–89; RESP 10–23; O2SAT 88–98
== END 2022-05-18 04:28 | disposition home or self-care (01) ==
PROVIDERS: Emergency Provider Emergency Medicine; Family Provider Family Medicine; PCP Family Medicine
DX: R11.10 Vomiting, unspecified (principal); R10.12 Left upper quadrant pain; R10.11 Right upper quadrant pain
CPT/HCPCS: 74177; 80053; 81001; 83690; 84484; 85025; 96361; 96374; 96375; 96376; 99284; J1170; J2405; J2765; Q9967

== ENCOUNTER 2022-07-06 16:16 | Emergency (ER) | payer MEDICARE, OTHER, SELFPAY ==
[2021-12-26 21:16] VITALS: BMI 22.4
[2022-07-06 16:30] VITALS: BP 188/91; PULSE 69; RESP 18; TEMP 36.3; O2SAT 95; BMI 22.8
--- NOTE | 2022-07-06 17:17 | PC.NURSE ---
Patient approached social sciences professor in [facility] reports he is concerned he is having a stroke. This RN spoke with patient, negative FAST exam. Removed C-Collar that patient had worn into department to palpate spine. Patient tender to any touch on neck, shoulder or scalp. I am just freaking out, there is something wrong, my head is going to explode reassured patient and updated patient on wait time. Patient declined any oral pain medication while waiting
--- NOTE | 2022-07-06 17:30 | DI.CT.S_ITS ---
PROCEDURE: CT HEAD/BRAIN WO CON INDICATIONS: severe neck and head pain without recent injury TECHNIQUE: Noncontrast 4.5 mm thick angled axial sections acquired from the foramen magnum to the vertex, with coronal and sagittal reformats. For radiation dose reduction, the following was used: automated exposure control, adjustment of mA and/or kV according to patient size. COMPARISON: [facility], CT, HEAD WITHOUT CONTRAST, 08/30/2017, 13:55. [facility], CT, HEAD WITHOUT CONTRAST, 02/02/2018, 20:53. [facility], CT, CT CERVICAL SPINE WO CON, 07/06/2022, 17:37. [facility], CT, CT HEAD/BRAIN WO CON, 05/13/2021, 15:18. FINDINGS: Image quality: Excellent. CSF spaces: Basal cisterns are patent. No extra-axial fluid collections. The ventricles are symmetric in size and shape. Brain: No intracranial bleeds or masses. There is cerebral volume loss for age, with resultant ventricular and sulcal prominence. There are periventricular and deep white matter chronic small vessel ischemic changes. There is intracranial internal carotid artery atherosclerosis. Skull and face: Calvarium and visualized facial bones appear intact, without suspicious lesions. Sinuses: Visualized sinuses and mastoids are clear. IMPRESSION: No acute intracranial process is seen. No acute intracranial hemorrhage is seen. Dictated by: Vikas Adam M.D. on 07/06/2022 at 17:01 Approved by: Vikas Adam M.D. on 07/06/2022 at 17:06
--- NOTE | 2022-07-06 17:30 | DI.CT.S_ITS ---
PROCEDURE: CT CERVICAL SPINE WO CON INDICATIONS: severe neck and head pain without recent injury TECHNIQUE: Noncontrast 3 mm thick sections acquired from the skull base to the T4 level. Sagittal and coronal reformats were then constructed. For radiation dose reduction, the following was used: automated exposure control, adjustment of mA and/or kV according to patient size. COMPARISON: [facility], MR, MR CERVICAL SPINE WO CON, 09/11/2018, 11:08. [facility], CT, CT HEAD/BRAIN WO CON, 07/06/2022, 17:37. FINDINGS: Image quality: This examination is somewhat limited by quantum mottle artifact. There is artifact associated with the metallic hardware. Bones: No fractures or dislocations. Visualized superior ribs are intact. Extensive postoperative hardware can be seen C3 through C7. Disc spacers are seen throughout the fused region. No findings of hardware failure or hardware loosening are seen. Soft tissues: Prevertebral soft tissues are normal in thickness. No paravertebral hematomas. No apical pneumothoraces. IMPRESSION: No acute abnormality is seen on this CT study. Unremarkable extensive anterior fixation hardware. Dictated by: Vikas Adam M.D. on 07/06/2022 at 17:07 Approved by: Vikas Adam M.D. on 07/06/2022 at 17:09
--- NOTE | 2022-07-06 18:16 | ED.NECK ---
HPI - Neck Pain/Injury General Chief Complaint: Neck Pain/Injury Stated Complaint: Bit by bug last week, sweeling in hands neck Time Seen by Provider: 07/06/22 18:10 Mode of arrival: Ambulatory History of Present Illness HPI Narrative: 71-year-old male former smoker with extensive medical history including prior cervical radiculopathy with surgical repair about 4 years ago presents with a chief complaint of worsening neck pain that radiates into bilateral shoulders after the past few days. He denies any recent trauma, fall or injury. He states that moving his neck seems to worsen his pain. He denies any numbness or tingling extending into his extremities. Denies any extremity weakness. He has no fever or chills and takes no blood thinners. He has his cervical collar on that he was given post operatively a few years ago and says this helps. He is beginning to develop a generalized headache. He denies any light sensitivity, vomiting. Related Data Home Medications Medication Instructions Recorded Confirmed duloxetine 30 mg capsule,delayed 30 mg PO BID 12/26/21 04/17/22 release Previous Rx's Medication Instructions Recorded amlodipine 10 mg tablet See Rx Instructions .Route 12/26/21 .COMPLEX #90 tabs atorvastatin 20 mg tablet 20 mg PO DAILY #90 tabs 12/26/21 gabapentin 600 mg tablet See Rx Instructions .Route 12/26/21 .COMPLEX #540 tabs glipizide 5 mg tablet See Rx Instructions .Route 12/26/21 .COMPLEX #90 tabs metoprolol succinate 50 mg See Rx Instructions .Route 12/26/21 tablet,extended release 24 hr .COMPLEX #180 tabs tamsulosin 0.4 mg capsule See Rx Instructions .Route 12/26/21 .COMPLEX #180 caps amoxicillin 500 mg capsule 1,000 mg PO Q8H 5 days #30 caps 07/06/22 cyclobenzaprine 10 mg tablet 10 mg PO TID PRN muscle spasm #14 07/06/22 tabs methylprednisolone 4 mg tablets in See Rx Instructions PO .COMPLEX 07/06/22 a dose pack (Medrol (Patric)) #21 ea oxycodone 5 mg tablet 5 mg PO Q4-6H PRN pain #10 tabs 07/06/22 Allergies Allergy/AdvReac Type Severity Reaction Status Date / Time latex Allergy Mild RASH/ITCH Verified 07/06/22 16:37 (tape) pollen extracts Allergy Mild SINUS AND Verified 07/06/22 16:37 [POLLEN EXTRACTS] CHEST CONGESTION adhesive tape [ADHESIVE TAPE] AdvReac Unknown ITCHY Verified 07/06/22 16:37 Review of Systems Review of Systems Narrative: GENERAL: Denies chills, fatigue, malaise, fever, sweats. HEENT: Denies sinus pain, ear pain, sore throat, difficulty swallowing, dizziness. RESPIRATORY: Denies dyspnea, cough, wheezing, hemoptysis, sputum. CARDIOVASCULAR: Denies chest pain, palpitations, orthopnea, edema, GASTROINTESTINAL: Denies nausea, vomiting, abdominal pain, diarrhea, constipation, melena. : Denies dysuria, frequency, incontinence, hematuria, urinary retention. MUSCULOSKELETAL: See HPI SKIN: Denies rash, skin lesions, or other NEUROLOGIC: See HPI. PSYCHIATRIC: No concerning psychosocial issues. 12 point review of systems is negative except for those stated above Patient History Medical History Ankle fracture Anxiety (Unknown) Aortic stenosis, moderate Ascending aorta dilatation Bilateral carotid artery disease (~09/2018) Bilateral carpal tunnel syndrome BPH w urinary obs/LUTS Cervical somatic dysfunction Chronic back pain Chronic kidney disease Chronic pain of right ankle Chronic pain syndrome (Unknown) Coronary artery disease (Unknown) Cranial somatic dysfunction Depression (Unknown) Diabetes (Unknown) Diabetic neuropathy associated with type 2 diabetes mellitus Dyspnea on exertion Erectile dysfunction GERD (gastroesophageal reflux disease) (Unknown) History of ETOH abuse (Unknown) Hyperlipemia (Unknown) Hypertension (Unknown) Leg cramps, sleep related Low back pain (Unknown) Pain in knee region after replacement of knee joint Pancreatitis Pelvic somatic dysfunction Peripheral neuropathy (Unknown) Plantar fasciitis of left foot Rheumatoid arthritis (Unknown) Sacral region somatic dysfunction Seasonal allergic rhinitis Segmental and somatic dysfunction of abdomen and other regions Segmental and somatic dysfunction of rib cage Shoulder pain, bilateral Sleep initiation dysfunction Somatic dysfunction of lower extremity Thoracic region somatic dysfunction Trigger finger, left ring finger Trigger finger, right ring finger Surgical History History of back surgery (~2012) History of lumbar spinal fusion (01/06/20) History of surgery History of surgical removal of skin lesion Hx of cholecystectomy S/P cervical spinal fusion Status post hernia repair Status post knee surgery Vasectomy status Family History Mother Stroke Father Cancer Social History household members: none Smoking Status: Former smoker alcohol intake: current Smoking Status: Former smoker alcohol intake frequency: holidays/special occasions only Alcohol type: beer and wine Substance Use Type: marijuana Exam Narrative Exam Narrative: GENERAL: [71] year old patient appears stated age. Well-developed patient, in mild distress. HEAD: Atraumatic. Normocephalic. EYES: Pupils equal round and reactive. Extraocular motions intact. No scleral icterus. No injection or drainage. ENT: Nose without bleeding, purulent drainage. Throat without erythema, tonsillar hypertrophy or exudate. Airway patent. NECK: Trachea midline. Non tender. No pain on palpation, however axial loading worsens the pain that he reports and his shoulders. Patient has 5/5 strength in bilateral upper extremities with no numbness or tingling. CARDIOVASCULAR: Regular rate and rhythm without murmurs, gallops, or rubs. RESPIRATORY: Clear to auscultation. Breath sounds equal bilaterally. No wheezes, rales, or rhonchi. GASTROINTESTINAL: Abdomen soft, non-tender, nondistended. EXTREMITIES: No edema or joint tenderness. BACK: Nontender without deformity or crepitance. No flank tenderness. NEURO: AOx3. Bilateral lower extremities with 5/5 strength, sensation intact, no saddle anesthesia SKIN: No rash or erythema of visible areas Initial Vital Signs Initial Vital Signs: Vital Signs Temperature 97.3 F L 07/06/22 16:30 Pulse Rate 69 07/06/22 16:30 Respiratory Rate 18 07/06/22 16:30 Blood Pressure 188/91 H 07/06/22 16:30 Pulse Oximetry 95 07/06/22 16:30 Oxygen Delivery Method 07/06/22 16:30 Course Orders Ordered: ED Orders 07/06/22 17:30 CT cervical spine wo con Stat CT head/brain wo con Stat Discontinued Medications Cyclobenzaprine HCl (Cyclobenzaprine 10 Mg Prepack) 1 bottle MISC SEEINSTR ONE Stop: 07/06/22 19:43 Last Admin: 07/06/22 20:01 Dose: 1 bottle Documented By: EB Oxycodone/Acetaminophen (Oxycodone/Apap 5/325 Prepack) 1 bottle MISC SEEINSTR ONE Stop: 07/06/22 19:43 Last Admin: 07/06/22 20:01 Dose: 1 bottle Documented By: NANCY Prednisone (Prednisone 20 Mg Tablet) 40 mg PO NOW ONE Stop: 07/06/22 19:43 Last Admin: 07/06/22 20:01 Dose: 40 mg Documented By: NANCY Vital Signs Vital signs: Vital Signs - 8 hr 07/06/22 16:30 07/06/22 20:02 Temperature 97.3 F L Pulse Rate 69 76 Respiratory Rate 18 18 Blood Pressure 188/91 H 180/89 H Pulse Oximetry 95 97 Oxygen Delivery Method Room Air Room Air MDM - Neck Pain/Injury Imaging Data CT scan - head: Radiologist's Impression: Hector Harper?(Kirk)??71??M??1950 ? Allergy/Adv: latex, pollen extracts, adhesive tape (More??) Close Head CT (Signed) Vikas Adam - 07/06/[address] (Signed) Vikas Adam - 07/06/22 Abdomen/Pelvis CT (Signed) Aydin Dixon - 05/17/22 Echocardiogram Ultrasound (Signed) Mary Gerber - 12/27/21 Telemetry Strips 12/26/21 Telemetry Strips 12/26/21 Chest X-Ray (Signed) Severiano Guerrero - 12/26/21 Abdomen X-Ray (Signed) Severiano Guerrero - 12/26/21 Telemetry Strips 10/20/21 Ankle X-Ray (Signed) Garry Middleton - 10/20/21 Myocardial Perfusion Scan Nuc Med (Signed) Janis Rico - 07/04/21 Abdomen Ultrasound (Signed) Uzair Parra - 05/13/21 Chest/Abdomen/Pelvis CTA (Signed) Garry Middleton - 05/13/21 Chest X-Ray (Signed) Garry Middleton - 05/13/[address] (Signed) Garry Middleton - 05/13/21 Echocardiogram Ultrasound (Signed) Veronica Farias - 03/30/21 Knee X-Ray (Signed) Marek Sands - 09/20/20 Foot MRI (Signed) Marek Sands - 09/02/20 Foot X-Ray (Signed) Leena Cadena - 08/23/20 Ankle X-Ray (Signed) Leena Cadena - 08/23/[address] (Signed) Keith Raya - 05/04/20 Lumbar Spine MRI (Signed) Vikas Adam - 02/16/20 Abdomen/Pelvis CT (Signed) Leena Cadena - 02/10/20 Lumbar Spine X-Ray (Signed) Uzair Parra - 01/06/20 Outside EKG 12/18/[address] (Signed) KirillSohail - 07/09/19 Modified Barium Swallow (Signed) Uzair Parra - 05/08/19 Echocardiogram Ultrasound (Signed) Veronica Farias - 12/30/18 Vascular Ultrasound (Signed) Chrissy Young - 12/26/18 Chest X-Ray (Signed) CynMendoza - 12/26/18 Carotid Doppler Study (Signed) Chrissy Young - 09/18/18 Orbits/Face/Neck MRI (Signed) Connie Gasca - 09/11/18 Telemetry Strips 04/30/18 Chest X-Ray (Signed) Uzair Parra - 04/29/18 Telemetry Strips 02/02/18 Telemetry Strips 08/30/17 Launch?[place] [address] CT Scan Report Signed Patient: Hector Harper MR#: [id number] : 1950 Acct:[id number] Age/Sex: 71 / M Date of Service: 07/06/22 Loc: ED Accession Number: [id number] ?? Procedure: CT head/brain wo con Ordering Provider: Ale Hu D.O. PROCEDURE:? CT HEAD/BRAIN WO CON ? INDICATIONS:? severe neck and head pain without recent injury ? TECHNIQUE:? Noncontrast 4.5 mm thick angled axial sections acquired from the foramen magnum to the vertex, with coronal and sagittal reformats.? For radiation dose reduction, the following was used:? automated exposure control, adjustment of mA and/or kV according to patient size.? ? COMPARISON:? [facility], CT, HEAD WITHOUT CONTRAST, 08/30/2017, 13:55.? [facility], CT, HEAD WITHOUT CONTRAST, 02/02/2018, 20:53.? [facility], CT, CT CERVICAL SPINE WO CON, 07/06/2022, 17:37.? [facility], CT, CT HEAD/BRAIN WO CON, 05/13/2021, 15:18. ? FINDINGS:? Image quality:? Excellent.? ? CSF spaces:? Basal cisterns are patent.? No extra-axial fluid collections.? The ventricles are symmetric in size and shape.? ? Brain:? No intracranial bleeds or masses.? There is cerebral volume loss for age, with resultant ventricular and sulcal prominence.? There are periventricular and deep white matter chronic small vessel ischemic changes.? There is intracranial internal carotid artery atherosclerosis.? ? Skull and face:? Calvarium and visualized facial bones appear intact, without suspicious lesions.? ? Sinuses:? Visualized sinuses and mastoids are clear.? ? IMPRESSION:? ? No acute intracranial process is seen.? ? No acute intracranial hemorrhage is seen.? ? ? Dictated by: Vikas Adam M.D. on 07/06/2022 at 17:01 ? ? Approved by: Vikas Adam M.D. on 07/06/2022 at 17:06 ? CT - cervical spine: Radiologist's Impression: Hector Harper?(Kirk)??71??M??1950 ? Allergy/Adv: latex, pollen extracts, adhesive tape (More??) Close Head CT (Signed) Vikas Adam - 07/06/[address] (Signed) Vikas Adam - 07/06/22 Abdomen/Pelvis CT (Signed) Aydin Dixon - 05/17/22 Echocardiogram Ultrasound (Signed) Mary Gerber - 12/27/21 Telemetry Strips 12/26/21 Telemetry Strips 12/26/21 Chest X-Ray (Signed) Severiano Guerrero - 12/26/21 Abdomen X-Ray (Signed) Severiano Guerrero - 12/26/21 Telemetry Strips 10/20/21 Ankle X-Ray (Signed) Garry Middleton - 10/20/21 Myocardial Perfusion Scan Nuc Med (Signed) Janis Rico - 07/04/21 Abdomen Ultrasound (Signed) Uzair Parra - 05/13/21 Chest/Abdomen/Pelvis CTA (Signed) Daryn Middletonderic - 05/13/21 Chest X-Ray (Signed) [place] - 05/13/[address] (Signed) Garry Middleton - 05/13/21 Echocardiogram Ultrasound (Signed) Veronica Farias - 03/30/21 Knee X-Ray (Signed) Marek Sands - 09/20/20 Foot MRI (Signed) Marek Sands - 09/02/20 Foot X-Ray (Signed) Leena Cadena - 08/23/20 Ankle X-Ray (Signed) Leena Cadena - 08/23/[address] (Signed) Keith Raya - 05/04/20 Lumbar Spine MRI (Signed) Vikas Adam - 02/16/20 Abdomen/Pelvis CT (Signed) Leena Cadena - 02/10/20 Lumbar Spine X-Ray (Signed) Uzair Parra - 01/06/20 Outside EKG 12/18/[address] (Signed) Sohail Roy - 07/09/19 Modified Barium Swallow (Signed) Uzair Parra - 05/08/19 Echocardiogram Ultrasound (Signed) Veronica Farias - 12/30/18 Vascular Ultrasound (Signed) Chrissy Young - 12/26/18 Chest X-Ray (Signed) Mendoza Addison - 12/26/18 Carotid Doppler Study (Signed) Chrissy Young - 09/18/18 Orbits/Face/Neck MRI (Signed) Connie Gasca - 09/11/18 Telemetry Strips 04/30/18 Chest X-Ray (Signed) Uzair Parra - 04/29/18 Telemetry Strips 02/02/18 Telemetry Strips 08/30/17 Launch?[address] [address] [address] Scan Report Signed Patient: Hector Harper MR#: [id number] : 1950 Acct:[id number] Age/Sex: 71 / M Date of Service: 07/06/22 Loc: ED Accession Number: [id number] ?? Procedure: CT cervical spine wo con Ordering Provider: Ale Hu D.O. PROCEDURE:? CT CERVICAL SPINE WO CON ? INDICATIONS:? severe neck and head pain without recent injury ? TECHNIQUE:? Noncontrast 3 mm thick sections acquired from the skull base to the T4 level.? Sagittal and coronal reformats were then constructed.? For radiation dose reduction, the following was used:? automated exposure control, adjustment of mA and/or kV according to patient size.? ? COMPARISON:? [facility], MR, MR CERVICAL SPINE WO CON, 09/11/2018, 11:08.? [facility], CT, CT HEAD/BRAIN WO CON, 07/06/2022, 17:37. ? FINDINGS:? Image quality:? This examination is somewhat limited by quantum mottle artifact.? There is artifact associated with the metallic hardware. ? ? Bones:? No fractures or dislocations.? Visualized superior ribs are intact.? ? Extensive postoperative hardware can be seen C3 through C7.? Disc spacers are seen throughout the fused region.? No findings of hardware failure or hardware loosening are seen.? ? Soft tissues:? Prevertebral soft tissues are normal in thickness.? No paravertebral hematomas.? No apical pneumothoraces.? ? ? IMPRESSION: ? No acute abnormality is seen on this CT study. ? Unremarkable extensive anterior fixation hardware. ? ? ? Dictated by: Vikas Adam M.D. on 07/06/2022 at 17:07 ? ? Approved by: Vikas Adam M.D. on 07/06/2022 at 17:09 ? Discharge Plan Departure Patient Disposition: Home Clinical Impression: Cervical radicular pain Instructions: DI for Neck Pain Activity Restrictions/Additional Instructions: *You have been diagnosed with [cervical pain with radiculopathy. As we discussed your history and physical exam is reassuring. The CT scan would suggest against any hardware failure or loosening.] *What to do: *Please continue to take your regular medications as directed. [ x] New medication prescriptions sent to your pharmacy: [[facility] ] [ ] New medication written as a paper prescription [ ] No new medications given *Please follow up with your primary care provider in 2-3 days, call for an appointment. Let them know you were seen in the Emergency Department and that we ask that you be seen in follow up. We will electronically transmit a record of today's note if your PCP is in our system *I have given you contact info for the local back doctor here in [place], please call the office Saturday morning, let them know that you were seen in the emergency department and we would like you seen in follow-up *Return to Emergency Department if you should have any new, worsening or concerning symptoms, such as [fever greater than 101 F, shaking chills, worsening pain, persistent vomiting, weakness of your arms, legs or other bothersome symptoms] You have been prescribed a short course of narcotic medications. These are potentially dangerous and addictive medications that should be used carefully. While on these medications you cannot drive or operate heavy machinery. Additionally, you cannot sign legal documents or perform any duties such as this. Many people get constipated on narcotic medications so it would be advisable to discuss stool softeners with the pharmacist when you pickup driver your prescription. Please understand that we cannot provide further refills of narcotics or controlled substances through the ED and your pain management will need to be through your Primary Care Provider Prescriptions: New cyclobenzaprine 10 mg tablet 10 mg PO TID PRN (Reason: muscle spasm) Qty: 14 0RF amoxicillin 500 mg capsule 1,000 mg PO Q8H 5 Days Qty: 30 0RF methylprednisolone [Medrol (Ptaric)] 4 mg tablets,dose pack See Rx Instructions .ROUTE .COMPLEX Qty: 21 0RF Rx Instructions: orally per package directions oxycodone 5 mg tablet 5 mg PO Q4-6H PRN (Reason: pain) Qty: 10 0RF No Action amlodipine 10 mg tablet See Rx Instructions .ROUTE .COMPLEX Qty: 90 0RF Dose Instruction: TAKE 1 TABLET BY MOUTH EVERY DAY Rx Instructions: TAKE 1 TABLET BY MOUTH EVERY DAY atorvastatin 20 mg tablet 20 mg PO DAILY Qty: 90 3RF gabapentin 600 mg tablet See Rx Instructions .ROUTE .COMPLEX Qty: 540 0RF Dose Instruction: TAKE 3 TABLETS BY MOUTH TWICE DAILY Rx Instructions: TAKE 3 TABLETS BY MOUTH TWICE DAILY glipizide 5 mg tablet See Rx Instructions .ROUTE .COMPLEX Qty: 90 0RF Dose Instruction: TAKE 1/2 TABLET BY MOUTH TWICE DAILY Rx Instructions: TAKE 1/2 TABLET BY MOUTH TWICE DAILY metoprolol succinate 50 mg tablet extended release 24 hr See Rx Instructions .ROUTE .COMPLEX Qty: 180 3RF Dose Instruction: TAKE 1 TABLET BY MOUTH 2 TIMES A DAY Rx Instructions: TAKE 1 TABLET BY MOUTH 2 TIMES A DAY tamsulosin 0.4 mg capsule See Rx Instructions .ROUTE .COMPLEX Qty: 180 0RF Dose Instruction: TAKE 2 CAPSULES BY MOUTH EVERY EVENING Rx Instructions: TAKE 2 CAPSULES BY MOUTH EVERY EVENING duloxetine 30 mg Capsule,Delayed Release(Dr/Ec) 30 mg PO BID Referrals: Lashonda Cain MD [Physician] - Tommie Bar DO [Primary Care Provider] - Visit Report Forms: Patient Portal/API
[2022-07-06] MEDS: CYCLOBENZAPRINE 10 MG PREPACK 1 BOTTLE MISC (20:01)
[2022-07-06] MEDS: OXYCODONE/APAP 5/325 PREPACK 1 BOTTLE MISC (20:01)
[2022-07-06] MEDS: predniSONE 20 MG TABLET 40 MG PO (20:01)
[2022-07-06 20:02] VITALS: BP 180/89; PULSE 76; RESP 18; O2SAT 97
== END 2022-07-06 20:07 | disposition home or self-care (01) ==
PROVIDERS: Emergency Provider Emergency Medicine; Family Provider Family Medicine; PCP Family Medicine
DX: M54.12 Radiculopathy, cervical region (principal)
CPT/HCPCS: 70450; 72125; 99283

== ENCOUNTER 2022-08-04 12:44 | Emergency (ER) | payer MEDICARE, OTHER, SELFPAY ==
[2021-12-26 21:16] VITALS: BMI 22.4
[2022-08-04] VITALS (16 sets, daily range): BP systolic 164–240; BP diastolic 76–109; PULSE 83–109; RESP 14–24; TEMP 37.1; O2SAT 87–99
--- NOTE | 2022-08-04 13:52 | ED.NAVMDI ---
HPI - Nausea/Vomiting/Diarrhea <Vince Terrell PA-C - Last Filed: 08/04/22 17:33> General Chief complaint: Nausea/Vomiting/Diarrhea Stated complaint: vomitting for 36 hrs, can't hold meds, stomachache Time Seen by Provider: 08/04/22 13:38 Source: patient Mode of arrival: Family Vehicle History of Present Illness HPI Narrative: Patient is a 71-year-old male who presents to the emergency room today with complaint of nausea vomiting diarrhea and abdominal pain started about 36 hours ago. Describes the pain as being about 810 and at this time. Denies any blood in the vomit. Also states his bowel or bladder functions have been okay and also nausea no blood in his diarrhea. States she had this same type of nausea vomiting diarrhea and abdominal pain about 4 months ago where he was seen in this ER for it. Admits to shortness of breath but denies any chest pain associated with this incident. Related Data Home Medications Medication Instructions Recorded Confirmed duloxetine 30 mg capsule,delayed 30 mg PO BID 12/26/21 04/17/22 release Previous Rx's Medication Instructions Recorded amlodipine 10 mg tablet See Rx Instructions .Route 12/26/21 .COMPLEX #90 tabs atorvastatin 20 mg tablet 20 mg PO DAILY #90 tabs 12/26/21 gabapentin 600 mg tablet See Rx Instructions .Route 12/26/21 .COMPLEX #540 tabs glipizide 5 mg tablet See Rx Instructions .Route 12/26/21 .COMPLEX #90 tabs metoprolol succinate 50 mg See Rx Instructions .Route 12/26/21 tablet,extended release 24 hr .COMPLEX #180 tabs tamsulosin 0.4 mg capsule See Rx Instructions .Route 12/26/21 .COMPLEX #180 caps cyclobenzaprine 10 mg tablet 10 mg PO TID PRN muscle spasm #14 07/06/22 tabs methylprednisolone 4 mg tablets in See Rx Instructions PO .COMPLEX 07/06/22 a dose pack (Medrol (Patric)) #21 ea oxycodone 5 mg tablet 5 mg PO Q4-6H PRN pain #10 tabs 07/06/22 ondansetron HCl 4 mg tablet 4 mg PO Q8H #20 tabs 08/04/22 Allergies Allergy/AdvReac Type Severity Reaction Status Date / Time latex Allergy Mild RASH/ITCH Verified 07/06/22 16:37 (tape) pollen extracts Allergy Mild SINUS AND Verified 07/06/22 16:37 [POLLEN EXTRACTS] CHEST CONGESTION adhesive tape [ADHESIVE TAPE] AdvReac Unknown ITCHY Verified 07/06/22 16:37 Review of Systems <Vince Terrell PA-C - Last Filed: 08/04/22 17:33> Review of Systems Narrative: R.O.S.: General: No fever, chills or fatigue. Cardiovascular: No chest pain or palpitations Respiratory: No S.O.B. HEENT: No congestion, ear pain, rhinorrhea, sore throat or tinnitus Gastrointestinal: Nausea and vomiting; diarrhea and abdominal pain for 36 hours Skin: No rash or associated abnormalities Musculoskeletal: No pain in muscles or joints, no limitation of range of motion, no paresthesia or numbness. ?? Neurological: Awake, alert and in not apparent distress. No Headaches, changes in vision or other related neurological concerns. Patient History <Vince Terrell PA-C - Last Filed: 08/04/22 17:33> Medical History Ankle fracture Anxiety (Unknown) Aortic stenosis, moderate Ascending aorta dilatation Bilateral carotid artery disease (~09/2018) Bilateral carpal tunnel syndrome BPH w urinary obs/LUTS Cervical somatic dysfunction Chronic back pain Chronic kidney disease Chronic pain of right ankle Chronic pain syndrome (Unknown) Coronary artery disease (Unknown) Cranial somatic dysfunction Depression (Unknown) Diabetes (Unknown) Diabetic neuropathy associated with type 2 diabetes mellitus Dyspnea on exertion Erectile dysfunction GERD (gastroesophageal reflux disease) (Unknown) History of ETOH abuse (Unknown) Hyperlipemia (Unknown) Hypertension (Unknown) Leg cramps, sleep related Low back pain (Unknown) Pain in knee region after replacement of knee joint Pancreatitis Pelvic somatic dysfunction Peripheral neuropathy (Unknown) Plantar fasciitis of left foot Rheumatoid arthritis (Unknown) Sacral region somatic dysfunction Seasonal allergic rhinitis Segmental and somatic dysfunction of abdomen and other regions Segmental and somatic dysfunction of rib cage Shoulder pain, bilateral Sleep initiation dysfunction Somatic dysfunction of lower extremity Thoracic region somatic dysfunction Trigger finger, left ring finger Trigger finger, right ring finger Surgical History History of back surgery (~2012) History of lumbar spinal fusion (01/06/20) History of surgery History of surgical removal of skin lesion Hx of cholecystectomy S/P cervical spinal fusion Status post hernia repair Status post knee surgery Vasectomy status Family History Mother Stroke Father Cancer Social History household members: none Smoking Status: Former smoker alcohol intake: current Smoking Status: Former smoker alcohol intake frequency: holidays/special occasions only Alcohol type: beer and wine Substance Use Type: marijuana Exam <Vince Terrell PA-C - Last Filed: 08/04/22 17:33> Initial Vital Signs Initial Vital Signs: Vital Signs Blood Pressure 181/107 H 08/04/22 13:02 <Beth Mcgowan MD - Last Filed: 08/06/22 11:39> Initial Vital Signs Initial Vital Signs: Vital Signs Blood Pressure 181/107 H 08/04/22 13:02 Course <Vince Terrell PA-C - Last Filed: 08/04/22 17:33> Orders Ordered: Discontinued Medications Hydromorphone HCl (Hydromorphone 0.5 Mg Inj) 0.5 mg IV NOW ONE Stop: 08/04/22 13:58 Last Admin: 08/04/22 14:03 Dose: 0.5 mg Documented By: BT Sodium Chloride (Normal Saline 0.9%) 1,000 mls @ 1,000 mls/hr IV BOLUS ONE Stop: 08/04/22 14:39 Last Infusion: 08/04/22 15:38 Dose: 0 mls/hr Documented By: Admin: 08/04/22 14:02 Dose: 1,000 mls/hr Documented By: BT Sodium Chloride (Normal Saline 0.9%) 1,000 mls @ 1,000 mls/hr IV BOLUS ONE Stop: 08/04/22 15:34 Last Infusion: 08/04/22 17:51 Dose: 0 mls/hr Documented By: Admin: 08/04/22 15:39 Dose: 1,000 mls/hr Documented By: BT Ondansetron HCl (Ondansetron 4 Mg/2 Ml Inj) 4 mg IV NOW ONE Stop: 08/04/22 13:41 Last Admin: 08/04/22 14:02 Dose: 4 mg Documented By: BT Ondansetron HCl (Ondansetron 8 Mg Tablet) 8 mg PO NOW ONE Stop: 08/04/22 17:29 Last Admin: 08/04/22 17:51 Dose: Not Given Documented By: SARAH Ondansetron HCl (Ondansetron 4 Mg Odt Prepack) 1 bottle MISC SEEINSTR ONE Stop: 08/04/22 17:54 Last Admin: 08/04/22 17:59 Dose: 1 bottle Documented By: SARAH Vital Signs Vital signs: Vital Signs - 8 hr 08/04/22 13:06 08/04/22 13:02 08/04/22 13:03 Temperature 98.7 F Pulse Rate 109 H 107 H Respiratory Rate 24 Blood Pressure 181/107 H 181/107 H Pulse Oximetry 98 98 Oxygen Delivery Method Room Air 08/04/22 13:30 08/04/22 13:54 08/04/22 13:54 Temperature Pulse Rate 98 H 96 H Respiratory Rate 14 Blood Pressure 225/108 H Pulse Oximetry 98 99 Oxygen Delivery Method 08/04/22 14:00 08/04/22 14:00 08/04/22 14:08 Temperature Pulse Rate 92 H 103 H Respiratory Rate 18 19 Blood Pressure 240/109 H Pulse Oximetry 98 99 Oxygen Delivery Method 08/04/22 14:08 08/04/22 14:15 08/04/22 14:15 Temperature Pulse Rate 91 H Respiratory Rate 17 Blood Pressure 205/105 H 166/76 H Pulse Oximetry 97 Oxygen Delivery Method 08/04/22 14:30 08/04/22 14:30 08/04/22 14:45 Temperature Pulse Rate 87 84 Respiratory Rate 18 18 Blood Pressure 164/86 H Pulse Oximetry 95 94 Oxygen Delivery Method 08/04/22 14:45 08/04/22 15:00 08/04/22 15:00 Temperature Pulse Rate 85 Respiratory Rate 15 Blood Pressure 176/84 H 177/84 H Pulse Oximetry 93 Oxygen Delivery Method 08/04/22 15:15 08/04/22 15:15 08/04/22 15:30 Temperature Pulse Rate 87 Respiratory Rate 17 Blood Pressure 174/88 H Pulse Oximetry 96 87 L Oxygen Delivery Method 08/04/22 16:00 08/04/22 16:30 Temperature Pulse Rate 83 86 Respiratory Rate 17 15 Blood Pressure Pulse Oximetry 96 98 Oxygen Delivery Method <Beth Mcgowan MD - Last Filed: 08/06/22 11:39> Orders Ordered: Discontinued Medications Hydromorphone HCl (Hydromorphone 0.5 Mg Inj) 0.5 mg IV NOW ONE Stop: 08/04/22 13:58 Last Admin: 08/04/22 14:03 Dose: 0.5 mg Documented By: WILLA Sodium Chloride (Normal Saline 0.9%) 1,000 mls @ 1,000 mls/hr IV BOLUS ONE Stop: 08/04/22 14:39 Last Infusion: 08/04/22 15:38 Dose: 0 mls/hr Documented By: Admin: 08/04/22 14:02 Dose: 1,000 mls/hr Documented By: BT Sodium Chloride (Normal Saline 0.9%) 1,000 mls @ 1,000 mls/hr IV BOLUS ONE Stop: 08/04/22 15:34 Last Infusion: 08/04/22 17:51 Dose: 0 mls/hr Documented By: Admin: 08/04/22 15:39 Dose: 1,000 mls/hr Documented By: WILLA Ondansetron HCl (Ondansetron 4 Mg/2 Ml Inj) 4 mg IV NOW ONE Stop: 08/04/22 13:41 Last Admin: 08/04/22 14:02 Dose: 4 mg Documented By: WILLA Ondansetron HCl (Ondansetron 8 Mg Tablet) 8 mg PO NOW ONE Stop: 08/04/22 17:29 Last Admin: 08/04/22 17:51 Dose: Not Given Documented By: SARAH Ondansetron HCl (Ondansetron 4 Mg Odt Prepack) 1 bottle MISC SEEINSTR ONE Stop: 08/04/22 17:54 Last Admin: 08/04/22 17:59 Dose: 1 bottle Documented By: SARAH Vital Signs Vital signs: Vital Signs - 8 hr 08/04/22 13:06 08/04/22 13:02 08/04/22 13:03 Temperature 98.7 F Pulse Rate 109 H 107 H Respiratory Rate 24 Blood Pressure 181/107 H 181/107 H Pulse Oximetry 98 98 Oxygen Delivery Method Room Air 08/04/22 13:30 08/04/22 13:54 08/04/22 13:54 Temperature Pulse Rate 98 H 96 H Respiratory Rate 14 Blood Pressure 225/108 H Pulse Oximetry 98 99 Oxygen Delivery Method 08/04/22 14:00 08/04/22 14:00 08/04/22 14:08 Temperature Pulse Rate 92 H 103 H Respiratory Rate 18 19 Blood Pressure 240/109 H Pulse Oximetry 98 99 Oxygen Delivery Method 08/04/22 14:08 08/04/22 14:15 08/04/22 14:15 Temperature Pulse Rate 91 H Respiratory Rate 17 Blood Pressure 205/105 H 166/76 H Pulse Oximetry 97 Oxygen Delivery Method 08/04/22 14:30 08/04/22 14:30 08/04/22 14:45 Temperature Pulse Rate 87 84 Respiratory Rate 18 18 Blood Pressure 164/86 H Pulse Oximetry 95 94 Oxygen Delivery Method 08/04/22 14:45 08/04/22 15:00 08/04/22 15:00 Temperature Pulse Rate 85 Respiratory Rate 15 Blood Pressure 176/84 H 177/84 H Pulse Oximetry 93 Oxygen Delivery Method 08/04/22 15:15 08/04/22 15:15 08/04/22 15:30 Temperature Pulse Rate 87 Respiratory Rate 17 Blood Pressure 174/88 H Pulse Oximetry 96 87 L Oxygen Delivery Method 08/04/22 16:00 08/04/22 16:30 Temperature Pulse Rate 83 86 Respiratory Rate 17 15 Blood Pressure Pulse Oximetry 96 98 Oxygen Delivery Method MDM - Nausea/Vomiting/Diarrhea <Vince Terrell PA-C - Last Filed: 08/04/22 17:33> Lab Data Result diagrams: 08/04/22 13:39 08/04/22 13:39 Labs: Lab Results 08/04/22 08/04/22 08/04/22 Range/Units 13:20 13:39 13:39 WBC 12.0 H (4.5-11.0) X10^3/uL RBC 4.79 (4.5-5.9) X10^6/uL Hgb 15.2 (13.5-17.5) g/dL Hct 43.8 (41-53) % MCV 91.4 (80-100) fL MCH 31.7 (26-34) PG MCHC 34.7 (30-36) % RDW 15.2 H (11.6-14.8) % Plt Count 145 L (150-400) X10^3/uL Neut % (Auto) 65.5 (50-75) % Lymph % (Auto) 28.0 (25-40) % [place] % (Auto) 6.2 (3-14) % Eos % (Auto) 0.1 L (2-4) % Baso % (Auto) 0.2 (0-2) % Neut # (Auto) 7900 H (9654-4362) /uL Lymph # (Auto) 3400 (2715-4963) /uL [place] # (Auto) 700 (0-900) /uL Eos # (Auto) 0 (0-450) /uL Baso # (Auto) 0 (0-100) /uL Sodium 132 L (137-145) mmol/L Potassium 4.5 (3.4-5.1) mmol/L Chloride 96 L (98-107) mmol/L Carbon Dioxide 22 (22-32) mmol/L BUN 31 H (9-20) mg/dL Creatinine 1.55 H (0.66-1.25) mg/dL Estimated GFR 48 L (>60) mL/min BUN/Creatinine Ratio 20.0 (6-22) Glucose 173 H (80-110) mg/dL Calcium 9.1 (8.4-10.2) mg/dL Total Bilirubin 1.5 H (0.2-1.3) mg/dL AST 53 (17-59) IU/L ALT 28 (<50) IU/L Alkaline Phosphatase 89 (38-126) U/L Total Protein 8.3 H (6.3-8.2) g/dL Albumin 4.7 (3.5-5.0) g/dL Globulin 3.6 (1.7-4.1) g/dL Albumin/Globulin Ratio 1.3 (1.0-2.8) Lipase (23-300) U/L SARS-CoV-2 (PCR) Negative (Negative) 08/04/22 Range/Units 13:39 WBC (4.5-11.0) X10^3/uL RBC (4.5-5.9) X10^6/uL Hgb (13.5-17.5) g/dL Hct (41-53) % MCV (80-100) fL MCH (26-34) PG MCHC (30-36) % RDW (11.6-14.8) % Plt Count (150-400) X10^3/uL Neut % (Auto) (50-75) % Lymph % (Auto) (25-40) % [place] % (Auto) (3-14) % Eos % (Auto) (2-4) % Baso % (Auto) (0-2) % Neut # (Auto) (2618-9011) /uL Lymph # (Auto) (6529-1588) /uL [place] # (Auto) (0-900) /uL Eos # (Auto) (0-450) /uL Baso # (Auto) (0-100) /uL Sodium (137-145) mmol/L Potassium (3.4-5.1) mmol/L Chloride (98-107) mmol/L Carbon Dioxide (22-32) mmol/L BUN (9-20) mg/dL Creatinine (0.66-1.25) mg/dL Estimated GFR (>60) mL/min BUN/Creatinine Ratio (6-22) Glucose (80-110) mg/dL Calcium (8.4-10.2) mg/dL Total Bilirubin (0.2-1.3) mg/dL AST (17-59) IU/L ALT (<50) IU/L Alkaline Phosphatase (38-126) U/L Total Protein (6.3-8.2) g/dL Albumin (3.5-5.0) g/dL Globulin (1.7-4.1) g/dL Albumin/Globulin Ratio (1.0-2.8) Lipase 66 (23-300) U/L SARS-CoV-2 (PCR) (Negative) Imaging Data Chest x-ray: Radiologist's Impression: PROCEDURE:? XR CHEST 2V ? INDICATIONS:? N/V with increased WBC ? TECHNIQUE:? 2 views of the chest were acquired.? ? COMPARISON:? [facility], CR, XR CHEST 1V, 05/13/2021, 15:10.? [facility], CT, CT ABDOMEN PELVIS WO CON, 08/04/2022, 15:22.? [facility], CT, CT CERVICAL SPINE WO CON, 07/06/2022, 17:37.? [facility], CR, XR CHEST 1V, 12/26/2021, 16:50. ? FINDINGS:? ? Surgical changes and devices:? Cervical spine fixation hardware and lumbar spine fixation hardware can be partially seen. Cholecystectomy clips are seen.? ? Lungs and pleura:? Lungs are clear.? No pleural effusions or pneumothorax.? ? Mediastinum:? The cardiac contours are within normal limits. The aorta demonstrates calcification and tortuosity. ? Bones and chest wall:? No suspicious bony abnormalities.? Age-appropriate bony degenerative changes are seen.? Soft tissues appear unremarkable.? IMPRESSION:? Negative for infiltrate. ? Postoperative and degenerative changes are seen.? ? ? Dictated by: Vikas Adam M.D. on 08/04/2022 at 14:52 ? ? Approved by: Vikas Adam M.D. on 08/04/2022 at 14:53 ? CT scan - abdomen/pelvis: Radiologist's Impression: PROCEDURE:? CT ABDOMEN PELVIS WO CON ? INDICATIONS:? Abdominal Pain ? TECHNIQUE:? Noncontrast 5 mm thick sections acquired from the diaphragms to the symphysis.? 5 mm coronal and sagittal reformats were then performed.? For radiation dose reduction, the following was used:? automated exposure control, adjustment of mA and/or kV according to patient size.? ? COMPARISON:? [facility], CR, XR CHEST 2V, 08/04/2022, 15:08.? [facility], CT, CT ABDOMEN PELVIS W CON, 05/17/2022, 21:24. ? FINDINGS:? Image quality:? There is artifact associated with the metallic hardware. ? ? ABDOMEN:? Lung bases:? Lung bases are clear.? Heart size is normal.? ? Solid organs:? Liver is normal in size.? Gallbladder has been removed.? Pancreas is normal in contours.? The previously seen peripancreatic inflammatory change is not definitely seen on the current study.? Spleen is normal in size.? No adrenal nodules.? Kidneys are normal in size, without hydronephrosis or nephrolithiasis.? ? Peritoneum and bowel:? Generalized prominence of small bowel loops can be seen with loops measuring up to 2.2 cm.? There is a gaseous prominence of the proximal colon, with the transverse colon7 measuring 9.5 cm. ? Potential prior appendectomy clips can be seen.? Colonic diverticulosis is seen, without findings of active diverticulitis. ? Nodes and vessels:? No retroperitoneal or mesenteric adenopathy by size criteria.? Aorta and inferior vena cava are normal in caliber.? Atherosclerotic calcification is noted.? ? Miscellaneous:? No ventral hernias.? ? ? PELVIS:? Genitourinary:? Bladder wall thickness is normal.? ? Miscellaneous:? No inguinal hernias or adenopathy.? ? Bones:? No suspicious bony lesions.? No vertebral body compression fractures.? Lumbar spine fixation hardware is seen.? Degenerative changes are seen throughout, which are worst involving the lumbar spine. ? ? ? IMPRESSION:? Gaseous prominence of the colon and small bowel, without frankly dilated loops identified. ? A cause of colonic obstruction is not seen on this study. ? Colonic diverticulosis is seen, without findings of active diverticulitis. ? Resolution of the previously seen peripancreatic inflammatory change. ? ? Incidental note is made of: Cholecystectomy Potential prior appendectomy Lumbar spine fixation hardware ? ? Dictated by: Vikas Adam M.D. on 08/04/2022 at 14:54 ? ? Approved by: Vikas Adam M.D. on 08/04/2022 at 14:58 ? MDM Narrative Medical decision making narrative: Patient is a 71-year-old male who presents to the emergency room today with complaint nausea vomiting diarrhea and abdominal pain for 36 hours. Labs ordered to rule out any emergent concerns. Labs revealed slightly elevated WBC so chest found ordered to try and locate source of possible infection. Creatinine was 1.55 a 2 L of fluid ordered. Blood glucose was 173 and this was to be expected since patient has not Taking diabetic meds and last 2 days. Evaluation patient chart revealed patient was seen at this emergency room in May for abdominal pain also. Patient was unable to produce urine at this visit. Patient was discharged because of the likelihood positive urinary tract infection leading to his current condition. This provider discussed urinary related to the patient and advised patient to return emergency room should any emergent concerns arise. Patient agrees plan <Beth Mcgowan MD - Last Filed: 08/06/22 11:39> Lab Data Labs: Lab Results 08/04/22 08/04/22 08/04/22 Range/Units 13:20 13:39 13:39 WBC 12.0 H (4.5-11.0) X10^3/uL RBC 4.79 (4.5-5.9) X10^6/uL Hgb 15.2 (13.5-17.5) g/dL Hct 43.8 (41-53) % MCV 91.4 (80-100) fL MCH 31.7 (26-34) PG MCHC 34.7 (30-36) % RDW 15.2 H (11.6-14.8) % Plt Count 145 L (150-400) X10^3/uL Neut % (Auto) 65.5 (50-75) % Lymph % (Auto) 28.0 (25-40) % [place] % (Auto) 6.2 (3-14) % Eos % (Auto) 0.1 L (2-4) % Baso % (Auto) 0.2 (0-2) % Neut # (Auto) 7900 H (3277-5471) /uL Lymph # (Auto) 3400 (4960-2736) /uL [place] # (Auto) 700 (0-900) /uL Eos # (Auto) 0 (0-450) /uL Baso # (Auto) 0 (0-100) /uL Sodium 132 L (137-145) mmol/L Potassium 4.5 (3.4-5.1) mmol/L Chloride 96 L (98-107) mmol/L Carbon Dioxide 22 (22-32) mmol/L BUN 31 H (9-20) mg/dL Creatinine 1.55 H (0.66-1.25) mg/dL Estimated GFR 48 L (>60) mL/min BUN/Creatinine Ratio 20.0 (6-22) Glucose 173 H (80-110) mg/dL Calcium 9.1 (8.4-10.2) mg/dL Total Bilirubin 1.5 H (0.2-1.3) mg/dL AST 53 (17-59) IU/L ALT 28 (<50) IU/L Alkaline Phosphatase 89 (38-126) U/L Total Protein 8.3 H (6.3-8.2) g/dL Albumin 4.7 (3.5-5.0) g/dL Globulin 3.6 (1.7-4.1) g/dL Albumin/Globulin Ratio 1.3 (1.0-2.8) Lipase (23-300) U/L SARS-CoV-2 (PCR) Negative (Negative) 09/24/22 Range/Units 13:39 WBC (4.5-11.0) X10^3/uL RBC (4.5-5.9) X10^6/uL Hgb (13.5-17.5) g/dL Hct (41-53) % MCV (80-100) fL MCH (26-34) PG MCHC (30-36) % RDW (11.6-14.8) % Plt Count (150-400) X10^3/uL Neut % (Auto) (50-75) % Lymph % (Auto) (25-40) % [place] % (Auto) (3-14) % Eos % (Auto) (2-4) % Baso % (Auto) (0-2) % Neut # (Auto) (8261-1332) /uL Lymph # (Auto) (5372-0495) /uL [place] # (Auto) (0-900) /uL Eos # (Auto) (0-450) /uL Baso # (Auto) (0-100) /uL Sodium (137-145) mmol/L Potassium (3.4-5.1) mmol/L Chloride (98-107) mmol/L Carbon Dioxide (22-32) mmol/L BUN (9-20) mg/dL Creatinine (0.66-1.25) mg/dL Estimated GFR (>60) mL/min BUN/Creatinine Ratio (6-22) Glucose (80-110) mg/dL Calcium (8.4-10.2) mg/dL Total Bilirubin (0.2-1.3) mg/dL AST (17-59) IU/L ALT (<50) IU/L Alkaline Phosphatase (38-126) U/L Total Protein (6.3-8.2) g/dL Albumin (3.5-5.0) g/dL Globulin (1.7-4.1) g/dL Albumin/Globulin Ratio (1.0-2.8) Lipase 66 (23-300) U/L SARS-CoV-2 (PCR) (Negative) Discharge Plan Departure Patient Disposition: Home Clinical Impression: Nausea and vomiting, Diarrhea Instructions: Diarrhea, Nausea and Vomiting-Adult Activity Restrictions/Additional Instructions: *You have been diagnosed with nausea vomiting and associated diarrhea. Labs and diagnostics did not reveal any acute emergent concerns. Advised follow-up with your primary care provider should any on additional nonemergent concerns arise. Please return to the emergency room for any emergent concerns arise. I have also ordered some medications with your nausea he should use the prescription.. [ ] *What to do: *Please continue to take your regular medications as directed. [ ] New medication prescriptions sent to your pharmacy: [ ] [x] New medication written as a paper prescription [ ] No new medications given *Please follow up with your primary care provider in 2-3 days, call for an appointment. Let them know you were seen in the Emergency Department and that we ask that you be seen in follow up. We will electronically transmit a record of today's note if your PCP is in our system *If you do not have a primary care provider please contact the [facility] Resource line at [phone]. They will ask some questions about your medical history and help get you set up with a doctor in the community. *Return to Emergency Department if you should have any new, worsening or concerning symptoms, such as [fever greater than 101 F, shaking chills, worsening pain, persistent vomiting or other bothersome symptoms] Prescriptions: New ondansetron HCl 4 mg tablet 4 mg PO Q8H Qty: 20 0RF No Action amlodipine 10 mg tablet See Rx Instructions .ROUTE .COMPLEX Qty: 90 0RF Dose Instruction: TAKE 1 TABLET BY MOUTH EVERY DAY Rx Instructions: TAKE 1 TABLET BY MOUTH EVERY DAY atorvastatin 20 mg tablet 20 mg PO DAILY Qty: 90 3RF gabapentin 600 mg tablet See Rx Instructions .ROUTE .COMPLEX Qty: 540 0RF Dose Instruction: TAKE 3 TABLETS BY MOUTH TWICE DAILY Rx Instructions: TAKE 3 TABLETS BY MOUTH TWICE DAILY glipizide 5 mg tablet See Rx Instructions .ROUTE .COMPLEX Qty: 90 0RF Dose Instruction: TAKE 1/2 TABLET BY MOUTH TWICE DAILY Rx Instructions: TAKE 1/2 TABLET BY MOUTH TWICE DAILY metoprolol succinate 50 mg tablet extended release 24 hr See Rx Instructions .ROUTE .COMPLEX Qty: 180 3RF Dose Instruction: TAKE 1 TABLET BY MOUTH 2 TIMES A DAY Rx Instructions: TAKE 1 TABLET BY MOUTH 2 TIMES A DAY tamsulosin 0.4 mg capsule See Rx Instructions .ROUTE .COMPLEX Qty: 180 0RF Dose Instruction: TAKE 2 CAPSULES BY MOUTH EVERY EVENING Rx Instructions: TAKE 2 CAPSULES BY MOUTH EVERY EVENING cyclobenzaprine 10 mg tablet 10 mg PO TID PRN (Reason: muscle spasm) Qty: 14 0RF methylprednisolone [Medrol (Patric)] 4 mg tablets,dose pack See Rx Instructions .ROUTE .COMPLEX Qty: 21 0RF Rx Instructions: orally per package directions oxycodone 5 mg tablet 5 mg PO Q4-6H PRN (Reason: pain) Qty: 10 0RF duloxetine 30 mg Capsule,Delayed Release(Dr/Ec) 30 mg PO BID Referrals: Tommie Bar DO [Primary Care Provider] - Visit Report Forms: Patient Portal/API <Beth cMgowan MD - Last Filed: 08/06/22 11:39> Cosign ED Attending Cosignature Attestation: I was immediately available in the department for consultation throughout this patient's visit. I agree with documentation as above. Beth Mcgowan MD
[2022-08-04 13:57] LABS: Add Manual Diff / Slide Review NO; Basophils Absolute Auto 0 /uL (0-100); Basophils Percent Auto 0.2 % (0-2); Eosinophils Absolute Auto 0 /uL (0-450); Eosinophils Percent Auto 0.1 % (2-4); Hematocrit 43.8 % (41-53); Hemoglobin 15.2 g/dL (13.5-17.5); Lymphocytes Absolute Auto 3400 /uL (1100-4500); Mean Corpuscular HGB Conc 34.7 % (30-36); Mean Corpuscular Hemoglobin 31.7 PG (26-34); Mean Corpuscular Volume 91.4 fL (80-100); Monocytes Absolute Auto 700 /uL (0-900); Monocytes Percent Auto 6.2 % (3-14); Neutrophils Absolute Auto 7900 /uL (1500-7000); Neutrophils Percent Auto 65.5 % (50-75); Platelet Count 145 X10^3/uL (150-400); Red Blood Cell Count 4.79 X10^6/uL (4.5-5.9); Red Cell Distribution Width 15.2 % (11.6-14.8)
[2022-08-04] MEDS: ONDANSETRON 4 MG/2 ML INJ IV (14:02)
[2022-08-04] MEDS: SODIUM CHLORIDE 0.9% 1,000 ML 1000 ML IV ×2 (14:02→15:39)
[2022-08-04] MEDS: HYDROMORPHONE 0.5 MG INJ IV (14:03)
[2022-08-04 14:05] LABS: Alanine Aminotransferase 28 IU/L (<50); Albumin 4.7 g/dL (3.5-5.0); Albumin Globulin Ratio 1.3 (1.0-2.8); Alkaline Phosphatase 89 U/L (38-126); Aspartate Aminotransferase 53 IU/L (17-59); Bilirubin Total 1.5 mg/dL (0.2-1.3); Blood Urea Nitrogen 31 mg/dL (9-20); Calcium 9.1 mg/dL (8.4-10.2); Carbon Dioxide 22 mmol/L (22-32); Chloride 96 mmol/L (98-107); Estimated Glomerular Filt Rate 48 mL/min (>60); Globulin 3.6 g/dL (1.7-4.1); Glucose 173 mg/dL (80-110); Lipase 66 U/L (23-300); Sodium 132 mmol/L (137-145); Total Protein 8.3 g/dL (6.3-8.2)
[2022-08-04 14:06] LABS: HEMOLYSIS 97 (0-50); Potassium 4.5 mmol/L (3.4-5.1)
[2022-08-04 14:40] LABS: COVID19 -Nasal RAPID Negative (Negative)
--- NOTE | 2022-08-04 14:44 | DI.CT.S_ITS ---
PROCEDURE: CT ABDOMEN PELVIS WO CON INDICATIONS: Abdominal Pain TECHNIQUE: Noncontrast 5 mm thick sections acquired from the diaphragms to the symphysis. 5 mm coronal and sagittal reformats were then performed. For radiation dose reduction, the following was used: automated exposure control, adjustment of mA and/or kV according to patient size. COMPARISON: [facility], CR, XR CHEST 2V, 08/04/2022, 15:08. [facility], CT, CT ABDOMEN PELVIS W CON, 05/17/2022, 21:24. FINDINGS: Image quality: There is artifact associated with the metallic hardware. ABDOMEN: Lung bases: Lung bases are clear. Heart size is normal. Solid organs: Liver is normal in size. Gallbladder has been removed. Pancreas is normal in contours. The previously seen peripancreatic inflammatory change is not definitely seen on the current study. Spleen is normal in size. No adrenal nodules. Kidneys are normal in size, without hydronephrosis or nephrolithiasis. Peritoneum and bowel: Generalized prominence of small bowel loops can be seen with loops measuring up to 2.2 cm. There is a gaseous prominence of the proximal colon, with the transverse colon7 measuring 9.5 cm. Potential prior appendectomy clips can be seen. Colonic diverticulosis is seen, without findings of active diverticulitis. Nodes and vessels: No retroperitoneal or mesenteric adenopathy by size criteria. Aorta and inferior vena cava are normal in caliber. Atherosclerotic calcification is noted. Miscellaneous: No ventral hernias. PELVIS: Genitourinary: Bladder wall thickness is normal. Miscellaneous: No inguinal hernias or adenopathy. Bones: No suspicious bony lesions. No vertebral body compression fractures. Lumbar spine fixation hardware is seen. Degenerative changes are seen throughout, which are worst involving the lumbar spine. IMPRESSION: Gaseous prominence of the colon and small bowel, without frankly dilated loops identified. A cause of colonic obstruction is not seen on this study. Colonic diverticulosis is seen, without findings of active diverticulitis. Resolution of the previously seen peripancreatic inflammatory change. Incidental note is made of: Cholecystectomy Potential prior appendectomy Lumbar spine fixation hardware Dictated by: Vikas Adam M.D. on 08/04/2022 at 14:54 Approved by: Vikas Adam M.D. on 08/04/2022 at 14:58
--- NOTE | 2022-08-04 14:47 | DI.RAD.S_ITS ---
PROCEDURE: XR CHEST 2V INDICATIONS: N/V with increased WBC TECHNIQUE: 2 views of the chest were acquired. COMPARISON: [facility], CR, XR CHEST 1V, 05/13/2021, 15:10. [facility], CT, CT ABDOMEN PELVIS WO CON, 08/04/2022, 15:22. [facility], CT, CT CERVICAL SPINE WO CON, 07/06/2022, 17:37. [facility], CR, XR CHEST 1V, 12/26/2021, 16:50. FINDINGS: Surgical changes and devices: Cervical spine fixation hardware and lumbar spine fixation hardware can be partially seen. Cholecystectomy clips are seen. Lungs and pleura: Lungs are clear. No pleural effusions or pneumothorax. Mediastinum: The cardiac contours are within normal limits. The aorta demonstrates calcification and tortuosity. Bones and chest wall: No suspicious bony abnormalities. Age-appropriate bony degenerative changes are seen. Soft tissues appear unremarkable. IMPRESSION: Negative for infiltrate. Postoperative and degenerative changes are seen. Dictated by: Vikas Adam M.D. on 08/04/2022 at 14:52 Approved by: Vikas Adam M.D. on 08/04/2022 at 14:53
--- NOTE | 2022-08-04 16:42 | PC.NURSE ---
pt states ill for about 3 days. unable to eat or drink.
[2022-08-04] MEDS: ONDANSETRON 4 MG ODT PREPACK 1 BOTTLE MISC (17:59)
== END 2022-08-04 18:05 | disposition home or self-care (01) ==
PROVIDERS: Emergency Provider Physician Assistant; Family Provider Family Medicine; PCP Family Medicine
DX: R11.2 Nausea with vomiting, unspecified (principal); R19.7 Diarrhea, unspecified; R06.02 Shortness of breath; Z20.822 Contact with and (suspected) exposure to COVID-19
CPT/HCPCS: 71046; 74176; 80053; 83690; 85025; 87635; 93005; 96361; 96374; 96375; 99283; 99284; C9803; J1170; J2405

== ENCOUNTER 2023-03-17 10:00 | Emergency (ER) | payer MEDICARE, OTHER, SELFPAY ==
[2023-03-15 09:23] VITALS: BMI 22.4
[2023-03-17 10:15] VITALS: BP 222/119; PULSE 84; RESP 16; TEMP 37.1; O2SAT 96; BMI 23.7
--- NOTE | 2023-03-17 10:26 | DI.RAD.S_ITS ---
PROCEDURE: XR ANKLE RT MIN 3V INDICATIONS: fall TECHNIQUE: 3 views of the ankle were acquired. COMPARISON: [facility] [place], CR, XR ANKLE 3+ VIEWS RIGHT, 01/28/2020, 9:20. [facility], CR, ANKLE 3 VIEWS RIGHT, 09/04/2016, 13:27. FINDINGS: Bones: Postsurgical tibiotalar fusion revisions are present. Superimposed arthritic changes are present. There is lucency inferior screw system lateral view. Soft tissues: No tibiotalar joint effusion. Achilles tendon appears normal. IMPRESSION: Tibiotalar fusion lucency identified in inferior screw seen lateral view. Partial hardware fracture be excluded. Visualized osseous fracture. Dictated by: Leena Cadena M.D. on 03/17/2023 at 11:13 Approved by: Leena Cadena M.D. on 03/17/2023 at 11:15
--- NOTE | 2023-03-17 10:26 | DI.RAD.S_ITS ---
PROCEDURE: XR CHEST 2V INDICATIONS: fall TECHNIQUE: 2 views of the chest were acquired. COMPARISON: [facility], , CHEST 1 VIEW, 11/23/2013, 15:30. FINDINGS: Surgical changes and devices: Cervical fixation plate is present. Lungs and pleura: Lungs are clear. No pleural effusions or pneumothorax. Mediastinum: Mediastinal contours are normal. Heart size is enlarged. Bones and chest wall: No suspicious bony abnormalities. Soft tissues appear unremarkable. IMPRESSION: No acute pulmonary process. Dictated by: Leena Cadena M.D. on 03/17/2023 at 11:16 Approved by: Leena Cadena M.D. on 03/17/2023 at 11:16
--- NOTE | 2023-03-17 10:26 | DI.RAD.S_ITS ---
PROCEDURE: XR HUMERUS RT 2V INDICATIONS: fall TECHNIQUE: 2 views of the humerus were acquired. COMPARISON: None. FINDINGS: Bones: No fractures or dislocations. No suspicious bony lesions. Soft tissues: No suspicious soft tissue calcifications. IMPRESSION: No visualized acute fracture or dislocation. However, if clinical concern and/or pain persist, short interval imaging followup in 7-10 days is recommended, as occult injury cannot be definitively excluded. Dictated by: Leena Cadena M.D. on 03/17/2023 at 11:16 Approved by: Leena Cadena M.D. on 03/17/2023 at 11:17
--- NOTE | 2023-03-17 12:12 | DI.CT.S_ITS ---
PROCEDURE: CT LE RT WO CON INDICATIONS: ? hardware fx, right ankle TECHNIQUE: Noncontrast 1-1.5 mm axial sections acquired from above the tibiotalar joint to the bottom of the calcaneus, with coronal and sagittal reformats. COMPARISON: [facility], CR, XR HUMERUS RT 2V, 03/17/2023, 10:45. [facility], CR, XR ANKLE RT MIN 3V, 03/17/2023, 10:45. [facility] [place], CR, XR ANKLE 3 VIEWS WEIGHT BEARING RIGHT, 03/14/2022, 9:09. FINDINGS: Image quality: Excellent. Bones: ORIF of the distal tibia extending into the talus with syndesmotic screw fixation. Ghost tract lines from prior fixation. Advanced tibiotalar osteoarthritic changes. Moderate fibulotalar osteoarthritic changes. Soft tissues: Prominent lower extremity soft tissue edema most prominent near the tibia talar joint with small effusion. Vascular calcifications are present. IMPRESSION: 1. Soft tissue edema without fracture. 2. ORIF of the distal tibia and talus. 3. Syndesmotic fixation of the tibiotalar joint with small effusion. Dictated by: Ray Raya M.D. on 03/17/2023 at 12:00 Approved by: Ray Raya M.D. on 03/17/2023 at 12:05
[2023-03-17] MEDS: OXYCODONE/ACETAMINOPHEN 5/325 TABLET 2 TAB PO (12:22)
[2023-03-17 14:06] VITALS: BP 213/98; PULSE 67; RESP 14; O2SAT 99
--- NOTE | 2023-03-17 14:06 | PC.NURSE ---
patient complains of pain after fall in neck and has tenderness in his C-spine. King gaston MD notified
--- NOTE | 2023-03-17 15:14 | ED_ITS ---
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 most prominent near the tibia talar joint with small effusion.? Vascular calcifications are present. ? IMPRESSION:? 1. Soft tissue edema without fracture. 2. ORIF of the distal tibia and talus. 3. Syndesmotic fixation of the tibiotalar joint with small effusion.? ? Dictated by: Ray Raya M.D. on 03/17/2023 at 12:00 ? ? Approved by: Ray Raya M.D. on 03/17/2023 at 12:05?? Extremity x-ray #1: Radiologist's Impression: [address] [address] XRay Report Signed Patient: Hector Harper MR#: [id number] : 1950 Acct:[id number] Age/Sex: 72 / M Date of Service: 03/17/23 Loc: ED Accession Number: [id number] ?? Procedure: XR humerus RT 2V Ordering Provider: Ale Hu D.O. PROCEDURE:? XR HUMERUS RT 2V ? INDICATIONS:? fall ? TECHNIQUE:? 2 views of the humerus were acquired.? ? COMPARISON:? None. ? FINDINGS:? ? Bones:? No fractures or dislocations.? No suspicious bony lesions.? ? Soft tissues:? No suspicious soft tissue calcifications.? ? IMPRESSION:? No visualized acute fracture or dislocation. However, if clinical concern and/or pain persist, short interval imaging followup in 7-10 days is recommended, as occult injury cannot be definitively excluded. ? ? Dictated by: Leena Cadena M.D. on 03/17/2023 at 11:16 ? ? Approved by: Leena Cadena M.D. on 03/17/2023 at 11:17?? Chest x-ray: Radiologist's Impression: Close Head CT (Signed) Rya Raya - 03/17/23 Chest/Abdomen/Pelvis CT (Signed) Ray Raya - 03/17/[address] (Signed) Ray Raya - 03/17/[address] (Signed) Ray Raya - 03/17/23 Humerus X-Ray (Signed) Leena Cadena - 03/17/23 Chest X-Ray (Signed) Leena Cadena - 03/17/23 Ankle X-Ray (Signed) Leena Cadena - 03/17/23 Chest X-Ray (Signed) Vikas Adam - 08/04/22 Abdomen/Pelvis CT (Signed) Anuradha Adame - 08/04/[address] (Signed) Jair,Vikas - 07/06/[address] (Signed) Adolfo Adamsse - 07/06/22 Abdomen/Pelvis CT (Signed) Aydin Dixon - 05/17/22 Echocardiogram Ultrasound (Signed) Mary Gerber - 12/27/21 Telemetry Strips 12/26/21 Telemetry Strips 12/26/21 Chest X-Ray (Signed) Severiano Guerrero - 12/26/21 Abdomen X-Ray (Signed) Severiano Guerrero - 12/26/21 Telemetry Strips 10/20/21 Ankle X-Ray (Signed) Garry Middleton - 10/20/21 Myocardial Perfusion Scan Nuc Med (Signed) Janis Rico - 07/04/21 Abdomen Ultrasound (Signed) Uzair Parra - 05/13/21 Chest/Abdomen/Pelvis CTA (Signed) Garry Middleton - 05/13/21 Chest X-Ray (Signed) Shanti Middletonic - 05/13/[address] (Signed) Daryn Middletonderic - 05/13/21 Echocardiogram Ultrasound (Signed) Veronica Farias - 03/30/21 Knee X-Ray (Signed) WichoMarek - 09/20/20 Foot MRI (Signed) Marek Sands - 09/02/20 Foot X-Ray (Signed) Leena Cadena - 08/23/20 Ankle X-Ray (Signed) Leena Cadena - 08/23/[address] (Signed) Keith Raya - 05/04/20 Lumbar Spine MRI (Signed) Adolfo Adamsse - 02/16/20 Abdomen/Pelvis CT (Signed) Leena Cadena - 02/10/20 Lumbar Spine X-Ray (Signed) Uzair Parra - 01/06/20 Outside EKG 12/18/[address] (Signed) Sohail Roy - 07/09/19 Modified Barium Swallow (Signed) Uzair Parra - 05/08/19 Echocardiogram Ultrasound (Signed) Veronica Farias - 12/30/18 Vascular Ultrasound (Signed) Chrissy Young - 12/26/18 Chest X-Ray (Signed) Mendoza Addison - 12/26/18 Carotid Doppler Study (Signed) Chrissy Young - 09/18/18 Orbits/Face/Neck MRI (Signed) Connie Gasca - 09/11/18 Telemetry Strips 04/30/18 Chest X-Ray (Signed) Uzair Parra - 04/29/18 Telemetry Strips 02/02/18 Telemetry Strips 08/30/17 Launch?[address] [address] XRay Report Signed Patient: Hector Harper MR#: [id number] : 1950 Acct:[id number] Age/Sex: 72 / M Date of Service: 03/17/23 Loc: ED Accession Number: [id number] ?? Procedure: XR chest 2V Ordering Provider: Ale Hu D.O. PROCEDURE:? XR CHEST 2V ? INDICATIONS:? fall ? TECHNIQUE:? 2 views of the chest were acquired.? ? COMPARISON:? [facility], CR, CHEST 1 VIEW, 11/23/2013, 15:30. ? FINDINGS:? ? Surgical changes and devices:? Cervical fixation plate is present. ? Lungs and pleura:? Lungs are clear.? No pleural effusions or pneumothorax.? ? Mediastinum:? Mediastinal contours are normal.? Heart size is enlarged. ? Bones and chest wall:? No suspicious bony abnormalities.? Soft tissues appear unremarkable.? ? IMPRESSION:? No acute pulmonary process. ? ? Dictated by: Leena Cadena M.D. on 03/17/2023 at 11:16 ? ? Approved by: Leena Cadena M.D. on 03/17/2023 at 11:16?? Extremity x-ray #2: Radiologist's Impression: Close Head CT (Signed) Ray Raya - 03/17/23 Chest/Abdomen/Pelvis CT (Signed) Ray Raya - 03/17/[address] (Signed) Ray Raya - 03/17/[address] (Signed) Ray Raya - 03/17/23 Humerus X-Ray (Signed) Leena Cadena - 03/17/23 Chest X-Ray (Signed) Leena Cadena - 03/17/23 Ankle X-Ray (Signed) Leena Cadena - 03/17/23 Chest X-Ray (Signed) Vikas Adam - 08/04/22 Abdomen/Pelvis CT (Signed) Anuradha Adame - 08/04/[address] (Signed) Anuradha Adame - 07/06/[address] (Signed) Vikas Adam - 07/06/22 Abdomen/Pelvis CT (Signed) Aydin Dixon - 05/17/22 Echocardiogram Ultrasound (Signed) Mary Gerber - 12/27/21 Telemetry Strips 12/26/21 Telemetry Strips 12/26/21 Chest X-Ray (Signed) Severiano Guerrero - 12/26/21 Abdomen X-Ray (Signed) Severiano Guerrero - 12/26/21 Telemetry Strips 10/20/21 Ankle X-Ray (Signed) Garry Middleton - 10/20/21 Myocardial Perfusion Scan Nuc Med (Signed) Janis Rico - 07/04/21 Abdomen Ultrasound (Signed) Uzair Parra - 05/13/21 Chest/Abdomen/Pelvis CTA (Signed) KaneGarry - 05/13/21 Chest X-Ray (Signed) KaneGarry - 05/13/[address] (Signed) Daryn Middletonderic - 05/13/21 Echocardiogram Ultrasound (Signed) Veronica Farias - 03/30/21 Knee X-Ray (Signed) Marek Sands - 09/20/20 Foot MRI (Signed) Marek Sands - 09/02/20 Foot X-Ray (Signed) Leena Cadena - 08/23/20 Ankle X-Ray (Signed) Leena Cadena - 08/23/[address] (Signed) Keith Raya - 05/04/20 Lumbar Spine MRI (Signed) Vikas Adam - 02/16/20 Abdomen/Pelvis CT (Signed) CadenaLeena silva - 02/10/20 Lumbar Spine X-Ray (Signed) Uzair Parra - 01/06/20 Outside EKG 12/18/[address] (Signed) Sohail Roy - 07/09/19 Modified Barium Swallow (Signed) Uzair Parra - 05/08/19 Echocardiogram Ultrasound (Signed) Veronica Farias - 12/30/18 Vascular Ultrasound (Signed) Chrissy Young - 12/26/18 Chest X-Ray (Signed) Mendoza Addison - 12/26/18 Carotid Doppler Study (Signed) Chrissy Young - 09/18/18 Orbits/Face/Neck MRI (Signed) Connie Gasca - 09/11/18 Telemetry Strips 04/30/18 Chest X-Ray (Signed) Uzair Parra - 04/29/18 Telemetry Strips 02/02/18 Telemetry Strips 08/30/17 Launch?[address] [address] XRay Report Signed Patient: Hector Harper MR#: [id number] : 1950 Acct:[id number] Age/Sex: 72 / M Date of Service: 03/17/23 Loc: ED Accession Number: [id number] ?? Procedure: XR ankle RT min 3V Ordering Provider: Ale Hu D.O. PROCEDURE:? XR ANKLE RT MIN 3V ? INDICATIONS:? fall ? TECHNIQUE:? 3 views of the ankle were acquired.? ? COMPARISON:? [facility], CR, XR ANKLE 3+ VIEWS RIGHT, 01/28/2020, 9:20.? [facility], CR, ANKLE 3 VIEWS RIGHT, 09/04/2016, 13:27. ? FINDINGS:? ? Bones:? 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 Superimposed arthritic changes are present.? There is lucency inferior screw system lateral view. ? Soft tissues:? No tibiotalar joint effusion.? Achilles tendon appears normal.? ? ? IMPRESSION:? Tibiotalar fusion lucency identified in inferior screw seen lateral view.? Partial hardware fracture be excluded.? Visualized osseous fracture. ? Dictated by: Leena Cadena M.D. on 03/17/2023 at 11:13 ? ? Approved by: Leena Cadena M.D. on 03/17/2023 at 11:15?? MDM Narrative Medical decision making narrative: This is a 72-year-old male who had a fall several days ago he describes as summer salting after tripping on rock and over his puppy patient has pain and swelling in his right ankle and right upper extremity. Right upper extremity changes seem most consistent with a proximal biceps tendon rupture. And patient's ankle quite a bit of bruising x-ray showed possible issue with the hardware in CT was obtained which was negative. Based on the patient's mechanism he is had some persistent headache, neck pain and abdominal discomfort so CT head, C-spine and chest abdomen pelvis were obtained no acute changes no fracture or other intra-abdominal or chest process were noted. Patient's pain was somewhat improved some pain medication case was discussed with Orthopedic surgery plan for ortho boot for with weight-bearing as tolerated as CT lower extremity did not show fracture. Also reviewed patient's changes to his right upper extremity concern for biceps tendon rupture and recommend follow-up shortly with Orthopedic surgery. She notes patient is less likely to be surgical candidate as it is more proximal injury but should see the upper extremity dark. Patient is established with Dr. Zee already. Patient will call for an appointment. He feels comfortable and able to get around even with a sling with his right upper extremity. Discussed decreased activity particularly for his right upper extremity, weight-bearing as tolerated for his ankle and return precautions. Discharge Plan Departure Patient Disposition: Home Clinical Impression: Biceps tendon rupture, Effusion of right ankle, Right ankle sprain, Fall Activity Restrictions/Additional Instructions: Follow-up with orthopedic surgery, call tomorrow morning to set up an appointment. I would recommend follow-up with their shoulders/upper extremity orthopedic surgeon for your biceps tendon rupture. Dr. Rowan is probably appropriate for follow-up for your ankle. You can use the sling as needed for your right upper extremity but no lifting your right arm. Splint Care: Keep splint clean and dry. Elevated affected body part to decrease swelling. OK to use ice pack on the affected body part. Use for 15-20 minutes each time, for 5-6x per day. If you develop worsening pain, numbness, tingling, discoloration of the affected body part, loosen the splint by loosening the CANDICE wrap, and either see your doctor for an urgent re-assessment, or return to the Emergency Department. Return to the Emergency Department for any new or worsening symptoms. You may take Tylenol up to a 1000 mg every 6 hours as needed for pain. You can take oxycodone 1-2 tablets every 6 hours as needed in addition for uncontrolled pain. This medication can make you sleepy do not drive, perform hazardous activities or make any major decisions while taking it. This medication will make you constipated please take a stool softener once to twice daily until stools are soft and regular. Prescription sent to [facility]. Please return for rapidly worsening symptoms, new or worsening swelling, numbness or tingling or weakness of your extremities, lightheadedness or passing out, rapidly worsening neck, back, chest pain or shortness of breath, persistent vomiting or other new or concerning changes. Prescriptions: New oxycodone 5 mg tablet 5 mg PO QID PRN (Reason: pain) Qty: 10 0RF gabapentin 300 mg capsule 900 mg PO BID Qty: 30 0RF No Action amlodipine 10 mg tablet See Rx Instructions .ROUTE .COMPLEX Qty: 90 0RF Dose Instruction: TAKE 1 TABLET BY MOUTH EVERY DAY Rx Instructions: TAKE 1 TABLET BY MOUTH EVERY DAY glipizide 5 mg tablet See Rx Instructions .ROUTE .COMPLEX Qty: 90 0RF Dose Instruction: TAKE 1/2 TABLET BY MOUTH TWICE DAILY Rx Instructions: TAKE 1/2 TABLET BY MOUTH TWICE DAILY duloxetine 30 mg capsule,delayed release(DR/EC) See Rx Instructions .ROUTE .COMPLEX Qty: 180 3RF Dose Instruction: TAKE 1 CAPSULE TWICE DAILY Rx Instructions: TAKE 1 CAPSULE TWICE DAILY atorvastatin 20 mg tablet 20 mg PO DAILY Qty: 90 0RF metoprolol succinate 50 mg tablet extended release 24 hr 50 mg PO BID Qty: 180 0RF gabapentin 600 mg tablet 1,800 mg PO BID Qty: 540 0RF tamsulosin 0.4 mg capsule See Rx Instructions .ROUTE .COMPLEX Qty: 180 0RF Dose Instruction: TAKE 2 CAPSULES BY MOUTH EVERY EVENING Rx Instructions: TAKE 2 CAPSULES BY MOUTH EVERY EVENING Referrals: Corrina Rowan MD [Physician] - Tommie Bar DO [Primary Care Provider] - Stand Alone Forms: Patient Portal/API
--- NOTE | 2023-03-17 15:36 | DI.CT.S_ITS ---
PROCEDURE: CT CERVICAL SPINE WO CON INDICATIONS: fall, likely biceps tear/ankle, neck/back pain, occured thur TECHNIQUE: Noncontrast 3 mm thick sections acquired from the skull base to the T4 level. Sagittal and coronal reformats were then constructed. For radiation dose reduction, the following was used: automated exposure control, adjustment of mA and/or kV according to patient size. COMPARISON: None. FINDINGS: Image quality: Excellent. Bones: No fractures or dislocations. Visualized superior ribs are intact. Anterior fixation of C3 through C7. Soft tissues: Prevertebral soft tissues are normal in thickness. No paravertebral hematomas. No apical pneumothoraces. IMPRESSION: No cervical fracture. Dictated by: Ray Raya M.D. on 03/17/2023 at 15:29 Approved by: Ray Raya M.D. on 03/17/2023 at 15:37
--- NOTE | 2023-03-17 15:36 | DI.CT.S_ITS ---
PROCEDURE: CT CHEST ABD PEL W CON INDICATIONS: fall, likely biceps tear/ankle, neck/back pain, occured thur TECHNIQUE: After the administration of intravenous contrast, 5 mm thick sections acquired from the lung apices to the symphysis. 2.5 mm thick coronal and sagittal reformats were acquired. Additional 7 mm thick coronal maximum intensity projection (MIP) reformats acquired through the lungs. Optional 10-minute delayed imaging may be performed from the kidneys to the bladder. For radiation dose reduction, the following was used: automated exposure control, adjustment of mA and/or kV according to patient size. COMPARISON: None. FINDINGS: Image quality: Excellent. CHEST: Lungs: No pulmonary contusions or lacerations. No acute airspace opacities. No pneumothorax or hemothorax. Central and peripheral airways appear patent and normal in caliber. Mediastinum: No mediastinal hematomas. Heart size is normal. No pericardial effusion. Thoracic aorta and pulmonary arteries demonstrate normal size and enhancement. No mediastinal or hilar adenopathy. Esophagus is normal in caliber. No hiatal hernia. Chest wall: No rib fractures. No subcutaneous emphysema. No axillary or supraclavicular adenopathy. Thyroid gland is normal. ABDOMEN: Solid organs: Liver is normal in size and enhancement, without lacerations. Gallbladder is absent. Biliary system is non-dilated. Pancreas enhances normally, without transection. Spleen is normal in size and enhancement, without lacerations. No adrenal hematomas. Both kidneys enhance normally, without hydronephrosis or lacerations. Peritoneum and bowel: No free fluid or air. Unenhanced bowel loops demonstrate normal wall thickness and caliber. Nodes and vessels: No retroperitoneal or mesenteric adenopathy. Aorta and inferior vena cava are normal in size and enhancement. Miscellaneous: No ventral hernias. PELVIS: Genitourinary: Bladder wall thickness is normal. Miscellaneous: No inguinal hernias or adenopathy. Bones: Pelvic ring and hip joints appear intact. No vertebral compression fractures. Posterior fixation of L2 through S1. IMPRESSION: No traumatic findings within the chest, abdomen, and pelvis. Dictated by: Ray Raya M.D. on 03/17/2023 at 15:43 Approved by: Ray Raya M.D. on 03/17/2023 at 15:47
--- NOTE | 2023-03-17 15:36 | DI.CT.S_ITS ---
PROCEDURE: CT HEAD/BRAIN WO CON INDICATIONS: fall, likely biceps tear/ankle, neck/back pain, occured thur TECHNIQUE: Noncontrast 4.5 mm thick angled axial sections acquired from the foramen magnum to the vertex, with coronal and sagittal reformats. For radiation dose reduction, the following was used: automated exposure control, adjustment of mA and/or kV according to patient size. COMPARISON: [facility], CT, HEAD WITHOUT CONTRAST, 02/02/2018, 20:53. FINDINGS: Image quality: Excellent. CSF spaces: Basal cisterns are patent. No extra-axial fluid collections. Ventricles are normal in size and shape. Brain: No midline shift. No intracranial masses or hemorrhage. Villavicencio-white matter interface is normal. Skull and face: Calvarium and visualized facial bones are intact, without suspicious lesions. Sinuses: Visualized sinuses and mastoids are clear. IMPRESSION: No intracranial hemorrhage or skull fracture identified. Dictated by: Ray Raya M.D. on 03/17/2023 at 15:23 Approved by: Ray Raya M.D. on 03/17/2023 at 15:28
[2023-03-17] MEDS: MORPHINE 4 MG/ML INJ IV (15:48)
[2023-03-17] MEDS: GABAPENTIN 300 MG CAPSULE 900 MG PO (15:48)
[2023-03-17 16:04] LABS: Add Manual Diff / Slide Review NO; Basophils Absolute Auto 0 /uL (0-100); Basophils Percent Auto 0.6 % (0-2); Eosinophils Absolute Auto 100 /uL (0-450); Eosinophils Percent Auto 1.2 % (2-4); Hematocrit 35.3 % (41-53); Hemoglobin 12.3 g/dL (13.5-17.5); Lymphocytes Absolute Auto 3000 /uL (1100-4500); Lymphocytes Percent Auto 44.2 % (25-40); Mean Corpuscular HGB Conc 34.7 % (30-36); Mean Corpuscular Hemoglobin 33.5 PG (26-34); Mean Corpuscular Volume 96.5 fL (80-100); Monocytes Absolute Auto 600 /uL (0-900); Monocytes Percent Auto 9.1 % (3-14); Neutrophils Absolute Auto 3000 /uL (1500-7000); Neutrophils Percent Auto 44.9 % (50-75); Platelet Count 154 X10^3/uL (150-400); Red Blood Cell Count 3.66 X10^6/uL (4.5-5.9); Red Cell Distribution Width 13.6 % (11.6-14.8); White Blood Cell Count 6.8 X10^3/uL (4.5-11.0)
[2023-03-17 16:10] LABS: Prothrombin Time 11.4 SECONDS (10.1-12.7)
[2023-03-17 16:13] LABS: Lactate (Lactic Acid) 0.9 mmol/L (0.7-2.1); PTT Partial Thromboplastin Tim 22 SECONDS (26-36)
[2023-03-17 16:15] LABS: Alanine Aminotransferase 26 IU/L (<50); Albumin 3.7 g/dL (3.5-5.0); Albumin Globulin Ratio 1.2 (1.0-2.8); Alkaline Phosphatase 134 U/L (38-126); Aspartate Aminotransferase 45 IU/L (17-59); BUN Creatinine Ratio 20.1 (6-22); Bilirubin Total 1.6 mg/dL (0.2-1.3); Blood Urea Nitrogen 29 mg/dL (9-20); Calcium 8.7 mg/dL (8.4-10.2); Carbon Dioxide 24 mmol/L (22-32); Chloride 101 mmol/L (98-107); Estimated Glomerular Filt Rate 52 mL/min (>60); Ethanol (ETOH) < 10 mg/dL; Globulin 3.1 g/dL (1.7-4.1); Glucose 120 mg/dL (80-110); HEMOLYSIS 22 (0-50); Lipase 85 U/L (23-300); Potassium 4.3 mmol/L (3.4-5.1); Sodium 133 mmol/L (137-145); Total Protein 6.8 g/dL (6.3-8.2)
[2023-03-17 17:00] LABS: UR Morphine/Opiate cutoff 300 Negative (Negative); Ur Creatinine Normal (Normal); Ur Specific Gravity Normal (Normal); Urine Amphetamines Negative (Negative); Urine Barbiturates Negative (Negative); Urine Benzodiazepines Negative (Negative); Urine Cocaine Negative (Negative); Urine MDMA Negative (Negative); Urine Methadone Negative (Negative); Urine Methamphetamines Negative (Negative); Urine Oxycodone Positive (Negative); Urine Phencyclidine Negative (Negative); Urine Tetrahydrocannabinol Positive (Negative); Urine Tricyclic Antidepressant Negative (Negative); Urine pH Normal (Normal)
[2023-03-17 17:38] VITALS: BP 234/112; PULSE 80; O2SAT 95
[2023-03-17] MEDS: OXYCODONE/APAP 5/325 PREPACK 1 BOTTLE MISC (17:40)
== END 2023-03-17 17:53 | disposition home or self-care (01) ==
PROVIDERS: Emergency Provider Emergency Medicine; Family Provider Family Medicine; PCP Family Medicine
DX: S46.211A Strain of muscle, fascia and tendon of other parts of biceps, right arm, initial encounter (principal); M25.471 Effusion, right ankle; S93.401A Sprain of unspecified ligament of right ankle, initial encounter; S09.90XA Unspecified injury of head, initial encounter; M54.2 Cervicalgia; W18.30XA Fall on same level, unspecified, initial encounter
CPT/HCPCS: 36415; 70450; 71046; 71260; 72125; 73060; 73610; 73700; 74177; 80053; 80305; 80320; 83605; 83690; 85025; 85610; 85730; 96374; 99284; J2270; Q9967

== ENCOUNTER → 2023-03-25 11:46 | Outpatient (CLI) | payer MEDICARE, OTHER, SELFPAY ==
[2023-03-15 09:23] VITALS: BMI 22.4
[2023-03-25 12:17] LABS: Add Manual Diff / Slide Review NO; Basophils Absolute Auto 0 /uL (0-100); Basophils Percent Auto 0.4 % (0-2); Eosinophils Absolute Auto 100 /uL (0-450); Eosinophils Percent Auto 1.9 % (2-4); Lymphocytes Absolute Auto 2200 /uL (1100-4500); Lymphocytes Percent Auto 43.8 % (25-40); Mean Corpuscular HGB Conc 34.3 % (30-36); Mean Corpuscular Hemoglobin 33.7 PG (26-34); Mean Corpuscular Volume 98.3 fL (80-100); Monocytes Absolute Auto 400 /uL (0-900); Monocytes Percent Auto 8.4 % (3-14); Neutrophils Absolute Auto 2300 /uL (1500-7000); Neutrophils Percent Auto 45.5 % (50-75); Platelet Count 162 X10^3/uL (150-400); Red Blood Cell Count 3.25 X10^6/uL (4.5-5.9)
[2023-03-25 12:34] LABS: Alanine Aminotransferase 30 IU/L (<50); Albumin 3.7 g/dL (3.5-5.0); Albumin Globulin Ratio 1.3 (1.0-2.8); Alkaline Phosphatase 169 U/L (38-126); Aspartate Aminotransferase 49 IU/L (17-59); BUN Creatinine Ratio 20.8 (6-22); Bilirubin Total 0.7 mg/dL (0.2-1.3); Blood Urea Nitrogen 36 mg/dL (9-20); Calcium 8.4 mg/dL (8.4-10.2); Carbon Dioxide 26 mmol/L (22-32); Chloride 102 mmol/L (98-107); Cholesterol 155 mg/dL (140-199); Estimated Glomerular Filt Rate 42 mL/min (>60); Globulin 2.8 g/dL (1.7-4.1); Glucose 149 mg/dL (80-110); HDL Cholesterol 109 mg/dL (40-60); HEMOLYSIS < 15 (0-50); LDL Cholesterol Calculated 37 mg/dL (<100); Potassium 5.3 mmol/L (3.4-5.1); Sodium 134 mmol/L (137-145); Total Protein 6.5 g/dL (6.3-8.2); Triglycerides 44 mg/dL (35-150)
[2023-03-25 13:10] LABS: Creatinine Urine Random 122.8 mg/dL
[2023-03-26 08:35] LABS: Labcorp Hemoglobin (Hb) A1c 6.2 % (4.8-5.6)
== END ==
PROVIDERS: Family Provider Family Medicine; PCP Family Medicine; Referring Provider Family Medicine; Visit Provider Family Medicine
DX: E11.42 Type 2 diabetes mellitus with diabetic polyneuropathy (principal); I10 Essential (primary) hypertension
CPT/HCPCS: 36415; 80053; 80061; 82043; 82570; 83036; 84443; 85025

== ENCOUNTER → 2023-04-17 10:37 | Outpatient (CLI) | payer MEDICARE, OTHER, SELFPAY ==
[2023-03-15 09:23] VITALS: BMI 22.4
[2023-04-17 12:01] LABS: Prostate Specific Antigen 1.97 ng/mL (0.10-4.00)
== END ==
PROVIDERS: Family Provider Family Medicine; PCP Family Medicine; Referring Provider Specialist; Visit Provider Specialist
DX: N40.1 Benign prostatic hyperplasia with lower urinary tract symptoms (principal); N13.8 Other obstructive and reflux uropathy
CPT/HCPCS: 36415; 84153

== ENCOUNTER → 2023-04-29 14:23 | Outpatient (CLI) | payer MEDICARE, OTHER, SELFPAY ==
[2023-03-15 09:23] VITALS: BMI 22.4
[2023-04-29 16:59] LABS: BUN Creatinine Ratio 17.6 (6-22); Blood Urea Nitrogen 31 mg/dL (9-20); Estimated Glomerular Filt Rate 41 mL/min (>60)
[2023-04-29 18:16] LABS: Creatinine Urine Random 114.3 mg/dL
[2023-04-29 19:18] LABS: Microalbumi Creatinin Ratio Ur 3560.8 ug/mg CR (<30)
== END ==
PROVIDERS: Family Provider Family Medicine; PCP Family Medicine; Referring Provider Family Medicine; Visit Provider Family Medicine
DX: N18.9 Chronic kidney disease, unspecified (principal)
CPT/HCPCS: 36415; 82043; 82565; 82570; 84520

== ENCOUNTER 2023-07-03 09:34 | Emergency (ER) | payer MEDICARE, OTHER, SELFPAY ==
[2023-03-15 09:23] VITALS: BMI 22.4
[2023-07-03] VITALS (23 sets, daily range): BP systolic 193–247; BP diastolic 87–115; PULSE 57–81; RESP 13–22; TEMP 37.4–38.3; O2SAT 94–98; BMI 24.4
--- NOTE | 2023-07-03 10:03 | DI.RAD.S_ITS ---
PROCEDURE: XR CHEST 1V INDICATIONS: suspected sepsis TECHNIQUE: One view of the chest was acquired. COMPARISON: [facility], CR, XR CHEST 2V, 03/17/2023, 10:45. FINDINGS: Surgical changes and devices: Lower cervical fusion hardware. Lungs and pleura: Lungs are clear. No pleural effusions or pneumothorax. Mediastinum: Mediastinal contours appear normal. Heart size is normal. Bones and chest wall: No suspicious bony lesions. Overlying soft tissues appear unremarkable. IMPRESSION: No evidence acute pulmonary process. Dictated by: Garry Middleton M.D. on 07/03/2023 at 11:40 Approved by: Garry Middleton M.D. on 07/03/2023 at 11:41
[2023-07-03 11:15] LABS: Add Manual Diff / Slide Review NO; Basophils Absolute Auto 0 /uL (0-100); Basophils Percent Auto 0.4 % (0-2); Eosinophils Absolute Auto 100 /uL (0-450); Eosinophils Percent Auto 1.1 % (2-4); Hematocrit 31.8 % (41-53); Hemoglobin 11.1 g/dL (13.5-17.5); Lymphocytes Absolute Auto 1700 /uL (1100-4500); Lymphocytes Percent Auto 22.5 % (25-40); Mean Corpuscular Hemoglobin 34.7 PG (26-34); Monocytes Absolute Auto 900 /uL (0-900); Monocytes Percent Auto 11.8 % (3-14); Neutrophils Absolute Auto 5000 /uL (1500-7000); Neutrophils Percent Auto 64.2 % (50-75); Platelet Count 145 X10^3/uL (150-400); Red Blood Cell Count 3.21 X10^6/uL (4.5-5.9); Red Cell Distribution Width 14.4 % (11.6-14.8); White Blood Cell Count 7.7 X10^3/uL (4.5-11.0)
[2023-07-03 11:34] LABS: Prothrombin Time 11.9 SECONDS (10.1-12.7)
[2023-07-03 11:37] LABS: Lactate (Lactic Acid) 1.1 mmol/L (0.7-2.1); PTT Partial Thromboplastin Tim 26 SECONDS (26-36)
[2023-07-03 11:39] LABS: Alanine Aminotransferase 22 IU/L (<50); Albumin 4.1 g/dL (3.5-5.0); Albumin Globulin Ratio 1.2 (1.0-2.8); Alkaline Phosphatase 122 U/L (38-126); Aspartate Aminotransferase 32 IU/L (17-59); BUN Creatinine Ratio 11.4 (6-22); Bilirubin Total 1.1 mg/dL (0.2-1.3); Blood Urea Nitrogen 19 mg/dL (9-20); Calcium 8.9 mg/dL (8.4-10.2); Carbon Dioxide 28 mmol/L (22-32); Chloride 95 mmol/L (98-107); Estimated Glomerular Filt Rate 44 mL/min (>60); Globulin 3.3 g/dL (1.7-4.1); Glucose 194 mg/dL (80-110); HEMOLYSIS 15 (0-50); Lipase 62 U/L (23-300); Potassium 3.8 mmol/L (3.4-5.1); Sodium 130 mmol/L (137-145); Total Protein 7.4 g/dL (6.3-8.2)
[2023-07-03] MEDS: SODIUM CHLORIDE 0.9% 1,000 ML 1000 ML IV (11:52)
[2023-07-03 11:55] LABS: Procalcitonin 0.14 ng/mL (<0.5)
--- NOTE | 2023-07-03 12:24 | ED_ITS ---
HPI - Sepsis <Jody Concepcion PA-C - Last Filed: 07/03/23 15:02> General Chief Complaint: Fever Evaluation Sepsis Screen: No Definite Risk Sepsis Infection Criteria Present: None Narrative: Patient is a 72-year-old male who presents with acute onset of left wrist pain since 7:00 p.m. last night. He endorses swelling, pain, redness to the left wrist. He denies any injury to that wrist, does have a history of carpal tunnel syndrome. He has significant pain that is radiating up into his shoulder. Temperature in triage noted to be 101 temporally, 99.6 orally. He did not realize he had a fever until the nurse told him. Concern for possible sepsis at that time given swollen painful joint an elevated temperature. 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 Cervical somatic dysfunction Chronic back pain Chronic kidney disease Chronic pain of right ankle Chronic pain syndrome (Unknown) Coronary artery disease (Unknown) Cranial somatic dysfunction Depression (Unknown) Diabetes (Unknown) Diabetic neuropathy associated with type 2 diabetes mellitus Dyspnea on exertion Erectile dysfunction GERD (gastroesophageal reflux disease) (Unknown) History of ETOH abuse (Unknown) Hyperlipemia (Unknown) Hypertension (Unknown) Leg cramps, sleep related Low back pain (Unknown) Pain in knee region after replacement of knee joint Pancreatitis Pelvic somatic dysfunction Peripheral neuropathy (Unknown) Plantar fasciitis of left foot Rheumatoid arthritis (Unknown) Sacral region somatic dysfunction Seasonal allergic rhinitis Segmental and somatic dysfunction of abdomen and other regions Segmental and somatic dysfunction of rib cage Shoulder pain, bilateral Sleep initiation dysfunction Somatic dysfunction of lower extremity Thoracic region somatic dysfunction Trigger finger, left ring finger Trigger finger, right ring finger Urge incontinence Surgical History History of back surgery (~2012) History of lumbar spinal fusion (01/06/20) History of surgery History of surgical removal of skin lesion Hx of cholecystectomy S/P cervical spinal fusion Status post hernia repair Status post knee surgery Vasectomy status Family History Mother Stroke Father Cancer Social History household members: none Smoking Status: Former smoker alcohol intake: current Smoking Status: Former smoker alcohol intake frequency: holidays/special occasions only Alcohol type: beer and wine Substance Use Type: marijuana Exam <Jody Concepcion PA-C - Last Filed: 07/03/23 15:02> Narrative Exam Narrative: GENERAL: 72 year old patient appears stated age. Well-developed patient, in moderate distress. NEURO: AOx3. CARDIOVASCULAR: Regular rate and rhythm without murmurs, gallops, or rubs. RESPIRATORY: Clear to auscultation. Breath sounds equal bilaterally. No wheezes, rales, or rhonchi. EXTREMITIES: Edema, erythema of left wrist noted, significant pain with palpation of left wrist. Patient unable to move left fingers due to pain. Left radial pulse present, compartments of the forearm soft, mild tenderness with palpation of forearm. SKIN: No rash, erythema of left wrist Initial Vital Signs Initial Vital Signs: Vital Signs Temperature 101.0 F H 07/03/23 09:57 Pulse Rate 72 07/03/23 09:57 Respiratory Rate 16 07/03/23 09:57 Blood Pressure 194/87 H 07/03/23 09:57 Pulse Oximetry 96 07/03/23 09:57 Oxygen Delivery Method Room Air 07/03/23 09:57 <Jesús Hooper DO - Last Filed: 07/05/23 08:04> Initial Vital Signs Initial Vital Signs: Vital Signs Temperature 101.0 F H 07/03/23 09:57 Pulse Rate 72 07/03/23 09:57 Respiratory Rate 16 07/03/23 09:57 Blood Pressure 194/87 H 07/03/23 09:57 Pulse Oximetry 96 07/03/23 09:57 Oxygen Delivery Method Room Air 07/03/23 09:57 Course <Jody Concepcion PA-C - Last Filed: 07/03/23 15:02> Orders Ordered: Discontinued Medications Colchicine (Colchicine 0.6 Mg Tablet) 0.6 mg PO NOW ONE Stop: 07/03/23 13:51 Last Admin: 07/03/23 14:43 Dose: 0.6 mg Documented By: SHAYE Colchicine (Colchicine 0.6 Mg Tablet) 1.2 mg PO NOW ONE Stop: 07/03/23 13:52 Last Admin: 07/03/23 14:06 Dose: 1.2 mg Documented By: VANESSA Hydromorphone HCl (Hydromorphone 0.5 Mg Inj) 0.5 mg IV NOW ONE Stop: 07/03/23 12:17 Last Admin: 07/03/23 12:32 Dose: 0.5 mg Documented By: ELIZABETH Sodium Chloride (Normal Saline 0.9%) 1,000 mls @ 1,000 mls/hr IV BOLUS ONE Stop: 07/03/23 11:02 Last Infusion: 07/03/23 13:07 Dose: 0 mls/hr Documented By: Admin: 07/03/23 11:52 Dose: 1,000 mls/hr Documented By: JIMMIE Labetalol HCl (Labetalol 20 Mg/4 Ml Syringe) 10 mg IV NOW ONE Stop: 07/03/23 13:14 Last Admin: 07/03/23 13:23 Dose: 10 mg Documented By: VANESSA Labetalol HCl (Labetalol 20 Mg/4 Ml Syringe) 10 mg IV NOW ONE Stop: 07/03/23 13:51 Last Admin: 07/03/23 14:05 Dose: 10 mg Documented By: VANESSA Ondansetron HCl (Ondansetron 4 Mg/2 Ml Inj) 4 mg IV NOW PRN PRN Reason: Nausea And Vomiting Ondansetron HCl (Ondansetron 4 Mg Odt) 4 mg SL NOW PRN PRN Reason: Nausea And Vomiting Prednisone (Prednisone 20 Mg Tablet) 40 mg PO NOW ONE Stop: 07/03/23 13:52 Last Admin: 07/03/23 14:05 Dose: 40 mg Documented By: VANESSA Vital Signs Vital signs: Vital Signs - 8 hr 07/03/23 09:57 07/03/23 11:43 07/03/23 11:47 Temperature 101.0 F H Pulse Rate 72 66 Respiratory Rate 16 Blood Pressure 194/87 H 215/95 H Pulse Oximetry 96 96 Oxygen Delivery Method Room Air 07/03/23 11:47 07/03/23 12:00 07/03/23 12:16 Temperature 99.3 F Pulse Rate 60 57 L 68 Respiratory Rate 13 21 Blood Pressure Pulse Oximetry 96 97 97 Oxygen Delivery Method 07/03/23 12:16 07/03/23 12:30 07/03/23 12:31 Temperature Pulse Rate 69 67 Respiratory Rate 18 22 Blood Pressure 247/108 H Pulse Oximetry 97 98 Oxygen Delivery Method 07/03/23 12:31 07/03/23 12:46 07/03/23 12:46 Temperature Pulse Rate 60 Respiratory Rate 17 Blood Pressure 215/100 H 230/111 H Pulse Oximetry 97 Oxygen Delivery Method 07/03/23 13:00 07/03/23 13:01 07/03/23 13:01 Temperature Pulse Rate 59 L 63 Respiratory Rate 20 20 Blood Pressure 234/101 H Pulse Oximetry 94 Oxygen Delivery Method 07/03/23 13:06 07/03/23 13:06 07/03/23 13:18 Temperature 99.3 F Pulse Rate 71 Respiratory Rate 20 Blood Pressure 230/112 H Pulse Oximetry 95 Oxygen Delivery Method 07/03/23 13:23 07/03/23 13:57 07/03/23 14:05 Temperature Pulse Rate 64 81 78 Respiratory Rate Blood Pressure 237/112 H 207/94 H 219/88 H Pulse Oximetry Oxygen Delivery Method 07/03/23 13:15 07/03/23 13:15 07/03/23 13:30 Temperature Pulse Rate 63 64 Respiratory Rate 22 20 Blood Pressure 227/108 H Pulse Oximetry 94 94 Oxygen Delivery Method 07/03/23 13:31 07/03/23 13:31 07/03/23 13:46 Temperature Pulse Rate 65 Respiratory Rate 21 Blood Pressure 203/89 H 207/94 H Pulse Oximetry 95 Oxygen Delivery Method 07/03/23 13:46 07/03/23 14:00 07/03/23 14:01 Temperature Pulse Rate 75 62 Respiratory Rate 18 21 Blood Pressure 219/98 H Pulse Oximetry 96 Oxygen Delivery Method 07/03/23 14:01 Temperature Pulse Rate 63 Respiratory Rate 21 Blood Pressure Pulse Oximetry Oxygen Delivery Method <Jesús Hooper, DO - Last Filed: 07/05/23 08:04> Orders Ordered: Discontinued Medications Colchicine (Colchicine 0.6 Mg Tablet) 0.6 mg PO NOW ONE Stop: 07/03/23 13:51 Last Admin: 07/03/23 14:43 Dose: 0.6 mg Documented By: SHAYE Colchicine (Colchicine 0.6 Mg Tablet) 1.2 mg PO NOW ONE Stop: 07/03/23 13:52 Last Admin: 07/03/23 14:06 Dose: 1.2 mg Documented By: VANESSA Hydromorphone HCl (Hydromorphone 0.5 Mg Inj) 0.5 mg IV NOW ONE Stop: 07/03/23 12:17 Last Admin: 07/03/23 12:32 Dose: 0.5 mg Documented By: ELIZABETH Sodium Chloride (Normal Saline 0.9%) 1,000 mls @ 1,000 mls/hr IV BOLUS ONE Stop: 07/03/23 11:02 Last Infusion: 07/03/23 13:07 Dose: 0 mls/hr Documented By: Admin: 07/03/23 11:52 Dose: 1,000 mls/hr Documented By: JIMMIE Labetalol HCl (Labetalol 20 Mg/4 Ml Syringe) 10 mg IV NOW ONE Stop: 07/03/23 13:14 Last Admin: 07/03/23 13:23 Dose: 10 mg Documented By: VANESSA Labetalol HCl (Labetalol 20 Mg/4 Ml Syringe) 10 mg IV NOW ONE Stop: 07/03/23 13:51 Last Admin: 07/03/23 14:05 Dose: 10 mg Documented By: VANESSA Ondansetron HCl (Ondansetron 4 Mg/2 Ml Inj) 4 mg IV NOW PRN PRN Reason: Nausea And Vomiting Ondansetron HCl (Ondansetron 4 Mg Odt) 4 mg SL NOW PRN PRN Reason: Nausea And Vomiting Prednisone (Prednisone 20 Mg Tablet) 40 mg PO NOW ONE Stop: 07/03/23 13:52 Last Admin: 07/03/23 14:05 Dose: 40 mg Documented By: VANESSA Vital Signs Vital signs: Vital Signs - 8 hr 07/03/23 09:57 07/03/23 11:43 07/03/23 11:47 Temperature 101.0 F H Pulse Rate 72 66 Respiratory Rate 16 Blood Pressure 194/87 H 215/95 H Pulse Oximetry 96 96 Oxygen Delivery Method Room Air 07/03/23 11:47 07/03/23 12:00 07/03/23 12:16 Temperature 99.3 F Pulse Rate 60 57 L 68 Respiratory Rate 13 21 Blood Pressure Pulse Oximetry 96 97 97 Oxygen Delivery Method 07/03/23 12:16 07/03/23 12:30 07/03/23 12:31 Temperature Pulse Rate 69 67 Respiratory Rate 18 22 Blood Pressure 247/108 H Pulse Oximetry 97 98 Oxygen Delivery Method 07/03/23 12:31 07/03/23 12:46 07/03/23 12:46 Temperature Pulse Rate 60 Respiratory Rate 17 Blood Pressure 215/100 H 230/111 H Pulse Oximetry 97 Oxygen Delivery Method 07/03/23 13:00 07/03/23 13:01 07/03/23 13:01 Temperature Pulse Rate 59 L 63 Respiratory Rate 20 20 Blood Pressure 234/101 H Pulse Oximetry 94 Oxygen Delivery Method 07/03/23 13:06 07/03/23 13:06 07/03/23 13:18 Temperature 99.3 F Pulse Rate 71 Respiratory Rate 20 Blood Pressure 230/112 H Pulse Oximetry 95 Oxygen Delivery Method 07/03/23 13:23 07/03/23 13:57 07/03/23 14:05 Temperature Pulse Rate 64 81 78 Respiratory Rate Blood Pressure 237/112 H 207/94 H 219/88 H Pulse Oximetry Oxygen Delivery Method 07/03/23 13:15 07/03/23 13:15 07/03/23 13:30 Temperature Pulse Rate 63 64 Respiratory Rate 22 20 Blood Pressure 227/108 H Pulse Oximetry 94 94 Oxygen Delivery Method 07/03/23 13:31 07/03/23 13:31 07/03/23 13:46 Temperature Pulse Rate 65 Respiratory Rate 21 Blood Pressure 203/89 H 207/94 H Pulse Oximetry 95 Oxygen Delivery Method 07/03/23 13:46 07/03/23 14:00 07/03/23 14:01 Temperature Pulse Rate 75 62 Respiratory Rate 18 21 Blood Pressure 219/98 H Pulse Oximetry 96 Oxygen Delivery Method 07/03/23 14:01 Temperature Pulse Rate 63 Respiratory Rate 21 Blood Pressure Pulse Oximetry Oxygen Delivery Method Sepsis Evaluation (ED) <Jody Concepcion PA-C - Last Filed: 07/03/23 15:02> Triage Screening Sepsis Screen: No Definite Risk Level 1 - Infection Sepsis Infection Criteria Present: None Response It is my opinion that his patient have a likely infectious etiology for meeting sepsis criteria: Does Not Fluid calculation based on 30 mL/kg within 1hr of criteria: N/A Antibiotics initiated within 1 hr of Sepis dx: No Tissue Perfusion Reassessed within 6 hrs of infusion start time: No (n/a) MDM - Sepsis <Jody Concepcion PA-C - Last Filed: 07/03/23 15:02> Lab Data 07/03/23 11:00 07/03/23 11:00 Labs: Lab Results 07/03/23 07/03/23 07/03/23 Range/Units 11:00 11:00 11:00 WBC 7.7 (4.5-11.0) X10^3/uL RBC 3.21 L (4.5-5.9) X10^6/uL Hgb 11.1 L (13.5-17.5) g/dL Hct 31.8 L (41-53) % MCV 99.0 (80-100) fL MCH 34.7 H (26-34) PG MCHC 35.0 (30-36) % RDW 14.4 (11.6-14.8) % Plt Count 145 L (150-400) X10^3/uL Neut % (Auto) 64.2 (50-75) % Lymph % (Auto) 22.5 L (25-40) % [place] % (Auto) 11.8 (3-14) % Eos % (Auto) 1.1 L (2-4) % Baso % (Auto) 0.4 (0-2) % Neut # (Auto) 5000 (3633-3742) /uL Lymph # (Auto) 1700 (6741-6180) /uL [place] # (Auto) 900 (0-900) /uL Eos # (Auto) 100 (0-450) /uL Baso # (Auto) 0 (0-100) /uL ESR (0-15) MM/HR PT 11.9 (10.1-12.7) SECONDS INR 1.0 (0.9-1.3) APTT 26 (26-36) SECONDS Sodium 130 L (137-145) mmol/L Potassium 3.8 (3.4-5.1) mmol/L Chloride 95 L (98-107) mmol/L Carbon Dioxide 28 (22-32) mmol/L BUN 19 (9-20) mg/dL Creatinine 1.67 H (0.66-1.25) mg/dL Estimated GFR 44 L (>60) mL/min BUN/Creatinine Ratio 11.4 (6-22) Glucose 194 H (80-110) mg/dL Lactate (0.7-2.1) mmol/L Uric Acid (3.5-8.5) mg/dL Calcium 8.9 (8.4-10.2) mg/dL Total Bilirubin 1.1 (0.2-1.3) mg/dL AST 32 (17-59) IU/L ALT 22 (<50) IU/L Alkaline Phosphatase 122 (38-126) U/L C-Reactive Protein (<1.0) mg/dL Total Protein 7.4 (6.3-8.2) g/dL Albumin 4.1 (3.5-5.0) g/dL Globulin 3.3 (1.7-4.1) g/dL Albumin/Globulin Ratio 1.2 (1.0-2.8) Lipase 62 (23-300) U/L Procalcitonin 0.14 (<0.5) ng/mL Urine RBC (0-5/HPF) Urine WBC (0-5/HPF) Ur Squamous Epith Cells (0-5/HPF) Urine Bacteria (None) Ur Culture Indicated? 07/03/23 07/03/23 07/03/23 Range/Units 11:00 11:00 11:00 WBC (4.5-11.0) X10^3/uL RBC (4.5-5.9) X10^6/uL Hgb (13.5-17.5) g/dL Hct (41-53) % MCV (80-100) fL MCH (26-34) PG MCHC (30-36) % RDW (11.6-14.8) % Plt Count (150-400) X10^3/uL Neut % (Auto) (50-75) % Lymph % (Auto) (25-40) % [place] % (Auto) (3-14) % Eos % (Auto) (2-4) % Baso % (Auto) (0-2) % Neut # (Auto) (1726-6375) /uL Lymph # (Auto) (9459-1135) /uL [place] # (Auto) (0-900) /uL Eos # (Auto) (0-450) /uL Baso # (Auto) (0-100) /uL ESR 70 H (0-15) MM/HR PT (10.1-12.7) SECONDS INR (0.9-1.3) APTT (26-36) SECONDS Sodium (137-145) mmol/L Potassium (3.4-5.1) mmol/L Chloride (98-107) mmol/L Carbon Dioxide (22-32) mmol/L BUN (9-20) mg/dL Creatinine (0.66-1.25) mg/dL Estimated GFR (>60) mL/min BUN/Creatinine Ratio (6-22) Glucose (80-110) mg/dL Lactate 1.1 (0.7-2.1) mmol/L Uric Acid (3.5-8.5) mg/dL Calcium (8.4-10.2) mg/dL Total Bilirubin (0.2-1.3) mg/dL AST (17-59) IU/L ALT (<50) IU/L Alkaline Phosphatase (38-126) U/L C-Reactive Protein 2.9 H (<1.0) mg/dL Total Protein (6.3-8.2) g/dL Albumin (3.5-5.0) g/dL Globulin (1.7-4.1) g/dL Albumin/Globulin Ratio (1.0-2.8) Lipase (23-300) U/L Procalcitonin (<0.5) ng/mL Urine RBC (0-5/HPF) Urine WBC (0-5/HPF) Ur Squamous Epith Cells (0-5/HPF) Urine Bacteria (None) Ur Culture Indicated? 07/03/23 07/03/23 Range/Units 11:00 14:12 WBC (4.5-11.0) X10^3/uL RBC (4.5-5.9) X10^6/uL Hgb (13.5-17.5) g/dL Hct (41-53) % MCV (80-100) fL MCH (26-34) PG MCHC (30-36) % RDW (11.6-14.8) % Plt Count (150-400) X10^3/uL Neut % (Auto) (50-75) % Lymph % (Auto) (25-40) % [place] % (Auto) (3-14) % Eos % (Auto) (2-4) % Baso % (Auto) (0-2) % Neut # (Auto) (6622-5277) /uL Lymph # (Auto) (6115-5874) /uL [place] # (Auto) (0-900) /uL Eos # (Auto) (0-450) /uL Baso # (Auto) (0-100) /uL ESR (0-15) MM/HR PT (10.1-12.7) SECONDS INR (0.9-1.3) APTT (26-36) SECONDS Sodium (137-145) mmol/L Potassium (3.4-5.1) mmol/L Chloride (98-107) mmol/L Carbon Dioxide (22-32) mmol/L BUN (9-20) mg/dL Creatinine (0.66-1.25) mg/dL Estimated GFR (>60) mL/min BUN/Creatinine Ratio (6-22) Glucose (80-110) mg/dL Lactate (0.7-2.1) mmol/L Uric Acid 8.8 H (3.5-8.5) mg/dL Calcium (8.4-10.2) mg/dL Total Bilirubin (0.2-1.3) mg/dL AST (17-59) IU/L ALT (<50) IU/L Alkaline Phosphatase (38-126) U/L C-Reactive Protein (<1.0) mg/dL Total Protein (6.3-8.2) g/dL Albumin (3.5-5.0) g/dL Globulin (1.7-4.1) g/dL Albumin/Globulin Ratio (1.0-2.8) Lipase (23-300) U/L Procalcitonin (<0.5) ng/mL Urine RBC None seen (0-5/HPF) Urine WBC None seen (0-5/HPF) Ur Squamous Epith Cells None seen (0-5/HPF) Urine Bacteria None seen (None) Ur Culture Indicated? Cult not indicated Urine Dip Bedside Urine Glucose Negative Bedside Urine Bilirubin - Negative Bedside Urine Ketone - Negative Urine Specific [place] 1.015 Bedside Urine Occult Blood - Negative Bedside Urine pH 6.0 Bedside Urine Protein ++ 100 Bedside Urine Urobilinogen - Negative Bedside Urine Nitrite - Negative Bedside Urine Leukocytes - Negative Esterase Imaging Data Extremity x-ray #1: Radiologist's Impression: PROCEDURE:? XR WRIST LT MIN 3V ? INDICATIONS: left wrist pain, swelling, fever ? TECHNIQUE:? 4 views of the wrist were acquired.? ? COMPARISON:? None. ? FINDINGS:? ? Bones:? No fractures or dislocations.? No suspicious bony lesions.? Subchondral cystic change is present in the distal radius at the radiocarpal joint, in the scaphoid bone, and in the base of the 1st metacarpal.? This is nonspecific.? However, it can possibly represent evidence of an inflammatory arthritis.? There is severe degenerative arthritis at the base of the thumb.? ? Scaphoid view:? Scaphoid intact.? However, it has nonspecific subchondral cyst formation. ? Soft tissues:? No suspicious soft tissue calcifications.? ? IMPRESSION:? ? 1. No acute fracture or dislocation. ? 2. Subchondral cystic changes.? Nonspecific finding, but potentially may indicate evidence of an inflammatory arthritis. ? 3. Severe degenerative change at the base of the thumb. ? Comment:? If suspect septic joint, consider either MRI with without contrast or potential joint aspiration.? ? ? Dictated by: Garry Middleton M.D. on 07/03/2023 at 13:22 ? ? Approved by: Garry Middleton M.D. on 07/03/2023 at 13:24 ? MDM Narrative Medical decision making narrative: Multiple etiologies for patient's symptoms considered including, but not limited to: Septic joint, gout, traumatic injury. Further discussion with triage nurse elucidates that initial temperature 101? was temporal, but oral at the same time was 99.6. Patient not febrile in the emergency room despite no antipyretic being given, calling into question whether he initially had a fever. His labs do not show any leukocytosis but do show elevated inflammatory markers and elevated uric acid, making gout more likely. X-ray with subchondral cystic changes which support the diagnosis of inflammatory arthritis. Pain controlled in the emergency department with a total of 1 mg hydromorphone. Patient quite hypertensive while in emergency department, treated with a total of 20 mg of labetalol mild improvement. Patient denies any headache, chest pain, shortness of breath. Discussed importance of close follow-up with primary care for hypertension. Prescribed colchicine, indomethacin, prednisone for gout flare. Renal function at baseline today, we will treat with lowest possible dose of these medications. Advised patient to return if develops true fever greater than 100.4, follow up with primary care for gout prevention. Patient's symptoms improved over duration of stay with above-stated therapies. Findings and discharge diagnosis discussed with patient/family followed by verbalization of understanding Return precautions discussed with patient/family whom verbalize understanding of diagnosis and plan <Jesús Hooper DO - Last Filed: 07/05/23 08:04> Lab Data Labs: Lab Results 07/03/23 07/03/23 07/03/23 Range/Units 11:00 11:00 11:00 WBC 7.7 (4.5-11.0) X10^3/uL RBC 3.21 L (4.5-5.9) X10^6/uL Hgb 11.1 L (13.5-17.5) g/dL Hct 31.8 L (41-53) % MCV 99.0 (80-100) fL MCH 34.7 H (26-34) PG MCHC 35.0 (30-36) % RDW 14.4 (11.6-14.8) % Plt Count 145 L (150-400) X10^3/uL Neut % (Auto) 64.2 (50-75) % Lymph % (Auto) 22.5 L (25-40) % [place] % (Auto) 11.8 (3-14) % Eos % (Auto) 1.1 L (2-4) % Baso % (Auto) 0.4 (0-2) % Neut # (Auto) 5000 (1860-4850) /uL Lymph # (Auto) 1700 (5683-5056) /uL [place] # (Auto) 900 (0-900) /uL Eos # (Auto) 100 (0-450) /uL Baso # (Auto) 0 (0-100) /uL ESR (0-15) MM/HR PT 11.9 (10.1-12.7) SECONDS INR 1.0 (0.9-1.3) APTT 26 (26-36) SECONDS Sodium 130 L (137-145) mmol/L Potassium 3.8 (3.4-5.1) mmol/L Chloride 95 L (98-107) mmol/L Carbon Dioxide 28 (22-32) mmol/L BUN 19 (9-20) mg/dL Creatinine 1.67 H (0.66-1.25) mg/dL Estimated GFR 44 L (>60) mL/min BUN/Creatinine Ratio 11.4 (6-22) Glucose 194 H (80-110) mg/dL Lactate (0.7-2.1) mmol/L Uric Acid (3.5-8.5) mg/dL Calcium 8.9 (8.4-10.2) mg/dL Total Bilirubin 1.1 (0.2-1.3) mg/dL AST 32 (17-59) IU/L ALT 22 (<50) IU/L Alkaline Phosphatase 122 (38-126) U/L C-Reactive Protein (<1.0) mg/dL Total Protein 7.4 (6.3-8.2) g/dL Albumin 4.1 (3.5-5.0) g/dL Globulin 3.3 (1.7-4.1) g/dL Albumin/Globulin Ratio 1.2 (1.0-2.8) Lipase 62 (23-300) U/L Procalcitonin 0.14 (<0.5) ng/mL Urine RBC (0-5/HPF) Urine WBC (0-5/HPF) Ur Squamous Epith Cells (0-5/HPF) Urine Bacteria (None) Ur Culture Indicated? 07/03/23 07/03/23 07/03/23 Range/Units 11:00 11:00 11:00 WBC (4.5-11.0) X10^3/uL RBC (4.5-5.9) X10^6/uL Hgb (13.5-17.5) g/dL Hct (41-53) % MCV (80-100) fL MCH (26-34) PG MCHC (30-36) % RDW (11.6-14.8) % Plt Count (150-400) X10^3/uL Neut % (Auto) (50-75) % Lymph % (Auto) (25-40) % [place] % (Auto) (3-14) % Eos % (Auto) (2-4) % Baso % (Auto) (0-2) % Neut # (Auto) (4634-1554) /uL Lymph # (Auto) (4803-1180) /uL [place] # (Auto) (0-900) /uL Eos # (Auto) (0-450) /uL Baso # (Auto) (0-100) /uL ESR 70 H (0-15) MM/HR PT (10.1-12.7) SECONDS INR (0.9-1.3) APTT (26-36) SECONDS Sodium (137-145) mmol/L Potassium (3.4-5.1) mmol/L Chloride (98-107) mmol/L Carbon Dioxide (22-32) mmol/L BUN (9-20) mg/dL Creatinine (0.66-1.25) mg/dL Estimated GFR (>60) mL/min BUN/Creatinine Ratio (6-22) Glucose (80-110) mg/dL Lactate 1.1 (0.7-2.1) mmol/L Uric Acid (3.5-8.5) mg/dL Calcium (8.4-10.2) mg/dL Total Bilirubin (0.2-1.3) mg/dL AST (17-59) IU/L ALT (<50) IU/L Alkaline Phosphatase (38-126) U/L C-Reactive Protein 2.9 H (<1.0) mg/dL Total Protein (6.3-8.2) g/dL Albumin (3.5-5.0) g/dL Globulin (1.7-4.1) g/dL Albumin/Globulin Ratio (1.0-2.8) Lipase (23-300) U/L Procalcitonin (<0.5) ng/mL Urine RBC (0-5/HPF) Urine WBC (0-5/HPF) Ur Squamous Epith Cells (0-5/HPF) Urine Bacteria (None) Ur Culture Indicated? 07/03/23 07/03/23 Range/Units 11:00 14:12 WBC (4.5-11.0) X10^3/uL RBC (4.5-5.9) X10^6/uL Hgb (13.5-17.5) g/dL Hct (41-53) % MCV (80-100) fL MCH (26-34) PG MCHC (30-36) % RDW (11.6-14.8) % Plt Count (150-400) X10^3/uL Neut % (Auto) (50-75) % Lymph % (Auto) (25-40) % [place] % (Auto) (3-14) % Eos % (Auto) (2-4) % Baso % (Auto) (0-2) % Neut # (Auto) (0456-0432) /uL Lymph # (Auto) (6476-7958) /uL [place] # (Auto) (0-900) /uL Eos # (Auto) (0-450) /uL Baso # (Auto) (0-100) /uL ESR (0-15) MM/HR PT (10.1-12.7) SECONDS INR (0.9-1.3) APTT (26-36) SECONDS Sodium (137-145) mmol/L Potassium (3.4-5.1) mmol/L Chloride (98-107) mmol/L Carbon Dioxide (22-32) mmol/L BUN (9-20) mg/dL Creatinine (0.66-1.25) mg/dL Estimated GFR (>60) mL/min BUN/Creatinine Ratio (6-22) Glucose (80-110) mg/dL Lactate (0.7-2.1) mmol/L Uric Acid 8.8 H (3.5-8.5) mg/dL Calcium (8.4-10.2) mg/dL Total Bilirubin (0.2-1.3) mg/dL AST (17-59) IU/L ALT (<50) IU/L Alkaline Phosphatase (38-126) U/L C-Reactive Protein (<1.0) mg/dL Total Protein (6.3-8.2) g/dL Albumin (3.5-5.0) g/dL Globulin (1.7-4.1) g/dL Albumin/Globulin Ratio (1.0-2.8) Lipase (23-300) U/L Procalcitonin (<0.5) ng/mL Urine RBC None seen (0-5/HPF) Urine WBC None seen (0-5/HPF) Ur Squamous Epith Cells None seen (0-5/HPF) Urine Bacteria None seen (None) Ur Culture Indicated? Cult not indicated Urine Dip Bedside Urine Glucose Negative Bedside Urine Bilirubin - Negative Bedside Urine Ketone - Negative Urine Specific [place] 1.015 Bedside Urine Occult Blood - Negative Bedside Urine pH 6.0 Bedside Urine Protein ++ 100 Bedside Urine Urobilinogen - Negative Bedside Urine Nitrite - Negative Bedside Urine Leukocytes - Negative Esterase Discharge Plan Departure Patient Disposition: Home Clinical Impression: Gout Instructions: DI for Gout Activity Restrictions/Additional Instructions: *You have been diagnosed with gout. Gout is a very painful type of arthritis, often preceded by intake of shellfish, red meat, and alcohol, especially beer. We will be treating you today with prednisone, colchicine, indomethacin. If you develop a true fever at home, which is greater than 100.4? F, or develop more symptoms, you should return to the emergency department. You can talk to your primary care doctor about things you can do to prevent gout flares in the future. Your blood pressure is also very high today. Please find your home blood pressure monitoring cuff and take your blood pressure once a day and record it. Take the log with you to see your primary care doctor to discuss if you need additional medications. You should return to the emergency department if your blood pressure is high and you have chest pain, headache, or shortness of breath. *What to do: *Please continue to take your regular medications as directed. [ x] New medication prescriptions sent to your pharmacy: [[facility]] [ ] New medication written as a paper prescription [ ] No new medications given *Please follow up with your primary care provider in 2-3 days, call for an appointment. Let them know you were seen in the Emergency Department and that we ask that you be seen in follow up. We will electronically transmit a record of today's note if your PCP is in our system *If you do not have a primary care provider please contact the [facility] Resource line at [phone]. They will ask some questions about your medical history and help get you set up with a doctor in the community. *Return to Emergency Department if you should have any new, worsening or concerning symptoms, such as [fever greater than 101 F, shaking chills, wor sening pain, persistent vomiting or other bothersome symptoms] Prescriptions: New prednisone 20 mg tablet 40 mg PO DAILY Qty: 6 0RF colchicine (gout) 0.6 mg tablet 0.6 mg PO DAILY Qty: 30 0RF Rx Instructions: at the first sign of a gout flare, take two pills and then one more one hour later. Take one pill daily until pain is gone. indomethacin 50 mg capsule 50 mg PO TID Qty: 10 0RF Rx Instructions: administer with food or milk No Action duloxetine 30 mg capsule,delayed release(DR/EC) See Rx Instructions .ROUTE .COMPLEX Qty: 180 3RF Dose Instruction: TAKE 1 CAPSULE TWICE DAILY Rx Instructions: TAKE 1 CAPSULE TWICE DAILY gabapentin 600 mg tablet 1,800 mg PO BID Qty: 540 0RF Gemtesa 75 mg tablet 75 mg PO DAILY Qty: 90 3RF amlodipine 10 mg tablet See Rx Instructions .ROUTE .COMPLEX Qty: 90 3RF Dose Instruction: TAKE 1 TABLET BY MOUTH EVERY DAY Rx Instructions: TAKE 1 TABLET BY MOUTH EVERY DAY atorvastatin 20 mg tablet 20 mg PO DAILY Qty: 90 3RF glipizide 5 mg tablet See Rx Instructions .ROUTE .COMPLEX Qty: 90 3RF Dose Instruction: TAKE 1/2 TABLET BY MOUTH TWICE DAILY Rx Instructions: TAKE 1/2 TABLET BY MOUTH TWICE DAILY metoprolol succinate 50 mg tablet extended release 24 hr 50 mg PO BID Qty: 180 3RF tamsulosin 0.4 mg capsule See Rx Instructions .ROUTE .COMPLEX Qty: 180 3RF Dose Instruction: TAKE 2 CAPSULES BY MOUTH EVERY EVENING Rx Instructions: TAKE 2 CAPSULES BY MOUTH EVERY EVENING Referrals: Tommie Bar DO [Primary Care Provider] - Stand Alone Forms: Patient Portal/API <Jesús Hooper DO - Last Filed: 07/05/23 08:04> Cosign ED Attending Harriet Attestation: I was immediately available in the department for consultation. Documentation has been reviewed. I agree with assessment and plan.
--- NOTE | 2023-07-03 12:26 | DI.RAD.S_ITS ---
PROCEDURE: XR WRIST LT MIN 3V INDICATIONS: left wrist pain, swelling, fever TECHNIQUE: 4 views of the wrist were acquired. COMPARISON: None. FINDINGS: Bones: No fractures or dislocations. No suspicious bony lesions. Subchondral cystic change is present in the distal radius at the radiocarpal joint, in the scaphoid bone, and in the base of the 1st metacarpal. This is nonspecific. However, it can possibly represent evidence of an inflammatory arthritis. There is severe degenerative arthritis at the base of the thumb. Scaphoid view: Scaphoid intact. However, it has nonspecific subchondral cyst formation. Soft tissues: No suspicious soft tissue calcifications. IMPRESSION: 1. No acute fracture or dislocation. 2. Subchondral cystic changes. Nonspecific finding, but potentially may indicate evidence of an inflammatory arthritis. 3. Severe degenerative change at the base of the thumb. Comment: If suspect septic joint, consider either MRI with without contrast or potential joint aspiration. Dictated by: Garry Middleton M.D. on 07/03/2023 at 13:22 Approved by: Garry Middleton M.D. on 07/03/2023 at 13:24
[2023-07-03] MEDS: HYDROMORPHONE 0.5 MG INJ IV (12:32)
[2023-07-03 12:35] LABS: Uric Acid 8.8 mg/dL (3.5-8.5)
[2023-07-03 12:38] LABS: C-Reactive Protein Quant 2.9 mg/dL (<1.0)
[2023-07-03 12:43] LABS: Erythrocyte Sedimentation Rate 70 MM/HR (0-15)
[2023-07-03] MEDS: LABETALOL 20 MG/4 ML SYRINGE 10 MG IV ×2 (13:23→14:05)
[2023-07-03] MEDS: predniSONE 20 MG TABLET 40 MG PO (14:05)
[2023-07-03] MEDS: COLCHICINE 0.6 MG TABLET 1.2 MG PO (14:06)
--- NOTE | 2023-07-03 14:13 | PC.NURSE ---
Provider has 2 separate Colchicine orders. Provider ordered this RN verbally to give 1.2mg dose now and 0.6mg 1 hour from administration. Patient moved to room 3 for blood pressure recheck in 30mins prior to discharge. Pharmacy tubed down the colchicine. This RN gave report to RN that was charted in record. This RN also gave the remaining dose of colchcine to Deangelo after giving that RN report.
[2023-07-03 14:38] LABS: Bacteria Urine None Seen; Culture Indicated Urine Cult Not Indicated; RBC Urine None Seen (0-5/HPF); Squamous Epithelial Cell Urine None Seen (0-5/HPF); WBC Urine None Seen (0-5/HPF)
[2023-07-03] MEDS: COLCHICINE 0.6 MG TABLET PO (14:43)
== END 2023-07-03 14:52 | disposition home or self-care (01) ==
PROVIDERS: Emergency Medicine; Emergency Provider Physician Assistant; Family Provider Family Medicine; PCP Family Medicine
DX: M10.9 Gout, unspecified (principal); R50.9 Fever, unspecified
CPT/HCPCS: 36415; 71045; 73110; 80053; 81003; 81015; 83605; 83690; 84145; 84550; 85025; 85610; 85651; 85730; 86140; 87040; 96361; 96374; 96375; 96376; 99284; J1170

== ENCOUNTER → 2023-10-09 06:54 | Outpatient (CLI) | payer MEDICARE, OTHER, SELFPAY ==
[2023-03-15 09:23] VITALS: BMI 22.4
[2023-10-09 08:00] LABS: Add Manual Diff / Slide Review NO; Basophils Absolute Auto 0 /uL (0-100); Basophils Percent Auto 0.7 % (0-2); Eosinophils Absolute Auto 200 /uL (0-450); Eosinophils Percent Auto 4.2 % (2-4); Hematocrit 31.7 % (41-53); Lymphocytes Absolute Auto 2000 /uL (1100-4500); Lymphocytes Percent Auto 45.3 % (25-40); Mean Corpuscular HGB Conc 34.7 % (30-36); Mean Corpuscular Hemoglobin 32.7 PG (26-34); Mean Corpuscular Volume 94.5 fL (80-100); Monocytes Absolute Auto 500 /uL (0-900); Monocytes Percent Auto 11.6 % (3-14); Neutrophils Absolute Auto 1700 /uL (1500-7000); Neutrophils Percent Auto 38.2 % (50-75); Platelet Count 157 X10^3/uL (150-400); Red Blood Cell Count 3.35 X10^6/uL (4.5-5.9); Red Cell Distribution Width 13.8 % (11.6-14.8); White Blood Cell Count 4.5 X10^3/uL (4.5-11.0)
[2023-10-09 08:15] LABS: Hemoglobin A1C% w Est Avg Glu 6.6 % (4.0-6.0)
[2023-10-09 08:34] LABS: Alanine Aminotransferase 16 IU/L (<50); Albumin 3.8 g/dL (3.5-5.0); Albumin Globulin Ratio 1.4 (1.0-2.8); Alkaline Phosphatase 90 U/L (38-126); Aspartate Aminotransferase 28 IU/L (17-59); Bilirubin Total 0.7 mg/dL (0.2-1.3); Blood Urea Nitrogen 31 mg/dL (9-20); Calcium 9.7 mg/dL (8.4-10.2); Carbon Dioxide 26 mmol/L (22-32); Chloride 102 mmol/L (98-107); Estimated Glomerular Filt Rate 54 mL/min (>60); Globulin 2.8 g/dL (1.7-4.1); Glucose 139 mg/dL (80-110); HEMOLYSIS < 15 (0-50); Potassium 4.6 mmol/L (3.4-5.1); Sodium 136 mmol/L (137-145); Total Protein 6.6 g/dL (6.3-8.2)
[2023-10-09 08:36] LABS: Creatinine Urine Random 99.6 mg/dL
[2023-10-09 09:24] LABS: Microalbumi Creatinin Ratio Ur 1144.5 ug/mg CR (<30); Microalbumin Urine Random > 114.0 mg/dL (0-1.6)
== END ==
PROVIDERS: Family Provider Family Medicine; PCP Family Medicine; Referring Provider Family Medicine; Visit Provider Family Medicine
DX: E11.40 Type 2 diabetes mellitus with diabetic neuropathy, unspecified (principal); I10 Essential (primary) hypertension
CPT/HCPCS: 36415; 80053; 82043; 82570; 83036; 85025

== ENCOUNTER → 2024-02-17 06:51 | Outpatient (CLI) | payer MEDICARE, OTHER, SELFPAY ==
[2023-03-15 09:23] VITALS: BMI 22.4
[2024-02-20 12:08] LABS: Prostate Specific Antigen 2.93 ng/mL (0.10-4.00)
== END ==
LOC: LAB 06:53
PROVIDERS: Family Provider Family Medicine; PCP Family Medicine; Referring Provider Specialist; Visit Provider Specialist
DX: N40.1 Benign prostatic hyperplasia with lower urinary tract symptoms (principal); N13.8 Other obstructive and reflux uropathy
CPT/HCPCS: 36415; 84153

== ENCOUNTER 2024-02-22 19:23 | Emergency (ER) | payer MEDICARE, OTHER, SELFPAY ==
[2023-03-15 09:23] VITALS: BMI 22.4
--- NOTE | 2024-02-22 19:28 | ED.FALL ---
HPI - Fall General Chief Complaint: Fall Stated Complaint: Intoxication Time Seen by Provider: 02/22/24 19:24 History of Present Illness HPI Narrative: 73-year-old male presents by EMS from home for evaluation after a fall. EMS was called because the patient was intoxicated and yelling on the ground on his porch. Patient told EMS ?I'm too fucked up to stand. Patient arrived obviously intoxicated, singing to ED staff. Related Data Home Medications Medication Instructions Recorded Confirmed colchicine 0.6 mg tablet 0.6 mg PO DAILY 10/10/23 10/10/23 indomethacin 50 mg capsule 50 mg PO TID 10/10/23 10/10/23 Previous Rx's Medication Instructions Recorded duloxetine 30 mg capsule,delayed See Rx Instructions .Route 12/10/22 release .COMPLEX #180 caps amlodipine 10 mg tablet See Rx Instructions .Route 04/30/23 .COMPLEX #90 tabs atorvastatin 20 mg tablet 20 mg PO DAILY #90 tabs 04/30/23 glipizide 5 mg tablet See Rx Instructions .Route 04/30/23 .COMPLEX #90 tabs metoprolol succinate 50 mg 50 mg PO BID #180 tabs 04/30/23 tablet,extended release 24 hr tamsulosin 0.4 mg capsule See Rx Instructions .Route 04/30/23 .COMPLEX #180 caps prednisone 20 mg tablet 40 mg (2 x 20 mg) PO DAILY #6 tabs 07/03/23 allopurinol 300 mg tablet 300 mg PO DAILY #90 tabs 09/12/23 colchicine 0.6 mg tablet 0.6 mg PO DAILY #30 tabs 09/12/23 cyclobenzaprine 10 mg tablet 10 mg PO TID PRN muscle spasm #30 09/12/23 tabs gabapentin 600 mg tablet 1,800 mg (3 x 600 mg) PO BID #90 09/12/23 tabs indomethacin 50 mg capsule 50 mg PO TID gout #10 caps 09/12/23 vibegron 75 mg tablet (Gemtesa) 75 mg PO DAILY #90 tabs 10/01/23 Allergies Allergy/AdvReac Type Severity Reaction Status Date / Time latex Allergy Mild RASH/ITCH Verified 10/10/23 09:38 (tape) pollen extracts Allergy Mild SINUS AND Verified 10/10/23 09:38 [POLLEN EXTRACTS] CHEST CONGESTION adhesive tape [ADHESIVE TAPE] AdvReac Unknown ITCHY Verified 10/10/23 09:38 Review of Systems Review of Systems Narrative: Limited Patient History Medical History Incontinence of urine Urge incontinence Plantar fasciitis, right Acute pain of right shoulder BPH w urinary obs/LUTS Biceps tendon rupture, traumatic Shoulder pain, bilateral Aortic stenosis, moderate Chronic pain of right ankle Dyspnea on exertion Trigger finger, right ring finger Trigger finger, left ring finger Sleep initiation dysfunction Plantar fasciitis of left foot Thoracic region somatic dysfunction Cranial somatic dysfunction Segmental and somatic dysfunction of abdomen and other regions Somatic dysfunction of lower extremity Pain in knee region after replacement of knee joint Segmental and somatic dysfunction of rib cage BPH w urinary obs/LUTS Sacral region somatic dysfunction Pelvic somatic dysfunction Leg cramps, sleep related Seasonal allergic rhinitis Diabetic neuropathy associated with type 2 diabetes mellitus Erectile dysfunction Ankle fracture Cervical somatic dysfunction Chronic back pain Pancreatitis Chronic kidney disease Bilateral carotid artery disease (~09/2018) Ascending aorta dilatation Bilateral carpal tunnel syndrome Coronary artery disease (Unknown) GERD (gastroesophageal reflux disease) (Unknown) History of ETOH abuse (Unknown) Chronic pain syndrome (Unknown) Depression (Unknown) Anxiety (Unknown) Low back pain (Unknown) Rheumatoid arthritis (Unknown) Peripheral neuropathy (Unknown) Diabetes (Unknown) Hypertension (Unknown) Hyperlipemia (Unknown) Surgical History History of lumbar spinal fusion (01/06/20) Vasectomy status Hx of cholecystectomy History of surgical removal of skin lesion History of surgery S/P cervical spinal fusion History of back surgery (~2012) Status post knee surgery Status post hernia repair Family History Mother Stroke Father Cancer Social History household members: none Smoking Status: Former smoker alcohol intake: current Smoking Status: Former smoker alcohol intake frequency: holidays/special occasions only Alcohol type: beer and wine Substance Use Type: marijuana Exam Initial Vital Signs Initial Vital Signs: Vital Signs Temperature 98.2 F 02/22/24 20:05 Pulse Rate 82 02/22/24 20:05 Respiratory Rate 21 02/22/24 20:05 Blood Pressure 159/80 H 02/22/24 20:05 Pulse Oximetry 95 02/22/24 20:05 Oxygen Delivery Method Room Air 02/22/24 20:05 Const: Awake, alert, no acute distress, intoxicated MSK: Atraumatic, full range of motion, pulses equal Skin: Warm, Dry, intact, no rashes Neuro: AO x3, CN II-XII grossly intact, moves all extremities Course Orders Ordered: ED Orders 02/22/24 19:28 CT head/brain wo con Stat 02/22/24 19:37 CT cervical spine wo con Stat Vital Signs Vital signs: Vital Signs - 8 hr 02/22/24 20:05 Temperature 98.2 F Pulse Rate 82 Respiratory Rate 21 Blood Pressure 159/80 H Pulse Oximetry 95 Oxygen Delivery Method Room Air MDM - Fall Differential Diagnosis Differential diagnosis: Likely syncope, concussion with loss of consciousness and concussion without loss of consciousness MDM Narrative Medical decision making narrative: Possible GLF, patient is obviously intoxicated. Denies pain or injury. Due to ETOH will order order CT brain/C-spine Patient repeatedly refusing CT scan. He states he was calling his friend to pick him up and does not want anything else done. Discharge Plan Departure Patient Disposition: Elopement Clinical Impression: Refusal of treatment by patient Alcohol intoxication Qualifiers: Complication of substance-induced condition: uncomplicated Qualified Code(s): F10.920 - Alcohol use, unspecified with intoxication, uncomplicated Prescriptions: No Action duloxetine 30 mg capsule,delayed release(DR/EC) See Rx Instructions .ROUTE .COMPLEX Qty: 180 3RF Dose Instruction: TAKE 1 CAPSULE TWICE DAILY Rx Instructions: TAKE 1 CAPSULE TWICE DAILY amlodipine 10 mg tablet See Rx Instructions .ROUTE .COMPLEX Qty: 90 3RF Dose Instruction: TAKE 1 TABLET BY MOUTH EVERY DAY Rx Instructions: TAKE 1 TABLET BY MOUTH EVERY DAY atorvastatin 20 mg tablet 20 mg PO DAILY Qty: 90 3RF glipizide 5 mg tablet See Rx Instructions .ROUTE .COMPLEX Qty: 90 3RF Dose Instruction: TAKE 1/2 TABLET BY MOUTH TWICE DAILY Rx Instructions: TAKE 1/2 TABLET BY MOUTH TWICE DAILY metoprolol succinate 50 mg tablet extended release 24 hr 50 mg PO BID Qty: 180 3RF tamsulosin 0.4 mg capsule See Rx Instructions .ROUTE .COMPLEX Qty: 180 3RF Dose Instruction: TAKE 2 CAPSULES BY MOUTH EVERY EVENING Rx Instructions: TAKE 2 CAPSULES BY MOUTH EVERY EVENING allopurinol 300 mg tablet 300 mg PO DAILY Qty: 90 3RF indomethacin 50 mg capsule 50 mg PO TID Qty: 10 0RF Rx Instructions: administer with food or milk colchicine 0.6 mg tablet 0.6 mg PO DAILY Qty: 30 0RF Rx Instructions: at the first sign of a gout flare, take two pills and then one more one hour later. Take one pill daily until pain is gone. gabapentin 600 mg tablet 1,800 mg PO BID Qty: 90 0RF cyclobenzaprine 10 mg tablet 10 mg PO TID PRN (Reason: muscle spasm) Qty: 30 0RF colchicine 0.6 mg tablet 0.6 mg PO DAILY indomethacin 50 mg capsule 50 mg PO TID Rx Instructions: administer with food or milk prednisone 20 mg tablet 40 mg PO DAILY Qty: 6 0RF Gemtesa 75 mg tablet 75 mg PO DAILY Qty: 90 3RF Referrals: Tommie Bar DO [Primary Care Provider] -
[2024-02-22 20:05] VITALS: BP 159/80; PULSE 82; RESP 21; TEMP 36.8; O2SAT 95; BMI 22.4
== END 2024-02-22 21:10 | disposition left against medical advice (07) ==
PROVIDERS: Emergency Provider Emergency Medicine; Family Provider Family Medicine; PCP Family Medicine
DX: F10.920 Alcohol use, unspecified with intoxication, uncomplicated (principal)
CPT/HCPCS: 70450; 72125; 99281

== ENCOUNTER 2024-09-05 07:36 | Emergency (ER) | payer MEDICARE, OTHER, SELFPAY ==
[2023-03-15 09:23] VITALS: BMI 22.4
[2024-09-05] VITALS (8 sets, daily range): BP systolic 136–167; BP diastolic 74–101; PULSE 65–81; RESP 18; O2SAT 91–98; BMI 21.7
--- NOTE | 2024-09-05 08:08 | ED.GENADULT ---
HPI - General Adult General Chief complaint: Extremity Injury, Upper Stated complaint: L hand swelling t-4 Time Seen by Provider: 09/05/24 07:50 Source: patient Mode of arrival: Ambulatory History of Present Illness HPI narrative: 73-year-old gentleman who is 1 of the original extreme stent scares with multiple orthopedic issues as a result of that additional history includes type 2 diabetes, hypertension, hyperlipidemia, BPH. In reviewing his med list at points he has been on indomethacin, colchicine and prednisone as well as allopurinol patient does not recall ever being told that he had gout. Also listed in his medical problems include rheumatoid arthritis. Patient is not aware of this diagnosis either. He presents today complaining of left upper extremity pain and swelling. Started near his elbow and is now localizing near the wrist with slight erythema and warmth around the radial styloid. Hand is significantly swollen to the point he has not able to make a fist. He has not able to move his wrist secondary to pain. He has not having a low shoulder pain. There was no swelling proximal to the elbow. He describes no recent fevers or chills. He has not taking any medication for this. He has been watching it over the last 4 days assuming that it would improve, it is not, the pain is getting worse and he comes in for further evaluation. There was no reports of fevers, other joint pain beyond his chronic orthopedic problems in joints with prior surgeries, no palpitations, chest pain, shortness for breath, lower extremity edema Related Data Home Medications Medication Instructions Recorded Confirmed colchicine 0.6 mg tablet 0.6 mg PO DAILY 10/10/23 10/10/23 indomethacin 50 mg capsule 50 mg PO TID 10/10/23 10/10/23 Previous Rx's Medication Instructions Recorded duloxetine 30 mg capsule,delayed See Rx Instructions .Route 12/10/22 release .COMPLEX #180 caps amlodipine 10 mg tablet See Rx Instructions .Route 04/30/23 .COMPLEX #90 tabs atorvastatin 20 mg tablet 20 mg PO DAILY #90 tabs 04/30/23 glipizide 5 mg tablet See Rx Instructions .Route 04/30/23 .COMPLEX #90 tabs metoprolol succinate 50 mg 50 mg PO BID #180 tabs 04/30/23 tablet,extended release 24 hr tamsulosin 0.4 mg capsule See Rx Instructions .Route 04/30/23 .COMPLEX #180 caps prednisone 20 mg tablet 40 mg (2 x 20 mg) PO DAILY #6 tabs 07/03/23 allopurinol 300 mg tablet 300 mg PO DAILY #90 tabs 09/12/23 colchicine 0.6 mg tablet 0.6 mg PO DAILY #30 tabs 09/12/23 cyclobenzaprine 10 mg tablet 10 mg PO TID PRN muscle spasm #30 09/12/23 tabs gabapentin 600 mg tablet 1,800 mg (3 x 600 mg) PO BID #90 09/12/23 tabs indomethacin 50 mg capsule 50 mg PO TID gout #10 caps 09/12/23 vibegron 75 mg tablet (Gemtesa) 75 mg PO DAILY #90 tabs 10/01/23 colchicine 0.6 mg tablet 0.6 mg PO BID #60 tabs 09/05/24 prednisone 20 mg tablet 40 mg (2 x 20 mg) PO DAILY #20 tabs 09/05/24 Allergies Allergy/AdvReac Type Severity Reaction Status Date / Time latex Allergy Mild RASH/ITCH Verified 10/10/23 09:38 (tape) pollen extracts Allergy Mild SINUS AND Verified 10/10/23 09:38 [POLLEN EXTRACTS] CHEST CONGESTION adhesive tape [ADHESIVE TAPE] AdvReac Unknown ITCHY Verified 10/10/23 09:38 Review of Systems Review of Systems Narrative: Pertinent positive and negative findings as per HPI Patient History Medical History Incontinence of urine Urge incontinence Plantar fasciitis, right Acute pain of right shoulder BPH w urinary obs/LUTS Biceps tendon rupture, traumatic Shoulder pain, bilateral Aortic stenosis, moderate Chronic pain of right ankle Dyspnea on exertion Trigger finger, right ring finger Trigger finger, left ring finger Sleep initiation dysfunction Plantar fasciitis of left foot Thoracic region somatic dysfunction Cranial somatic dysfunction Segmental and somatic dysfunction of abdomen and other regions Somatic dysfunction of lower extremity Pain in knee region after replacement of knee joint Segmental and somatic dysfunction of rib cage BPH w urinary obs/LUTS Sacral region somatic dysfunction Pelvic somatic dysfunction Leg cramps, sleep related Seasonal allergic rhinitis Diabetic neuropathy associated with type 2 diabetes mellitus Erectile dysfunction Ankle fracture Cervical somatic dysfunction Chronic back pain Pancreatitis Chronic kidney disease Bilateral carotid artery disease (~09/2018) Ascending aorta dilatation Bilateral carpal tunnel syndrome Coronary artery disease (Unknown) GERD (gastroesophageal reflux disease) (Unknown) History of ETOH abuse (Unknown) Chronic pain syndrome (Unknown) Depression (Unknown) Anxiety (Unknown) Low back pain (Unknown) Rheumatoid arthritis (Unknown) Peripheral neuropathy (Unknown) Diabetes (Unknown) Hypertension (Unknown) Hyperlipemia (Unknown) Surgical History History of lumbar spinal fusion (01/06/20) Vasectomy status Hx of cholecystectomy History of surgical removal of skin lesion History of surgery S/P cervical spinal fusion History of back surgery (~2012) Status post knee surgery Status post hernia repair Family History Mother Stroke Father Cancer Social History household members: none Smoking Status: Former smoker alcohol intake: current Smoking Status: Former smoker alcohol intake frequency: 3 or more drinks per day Alcohol type: beer and wine Substance Use Type: marijuana Exam Initial Vital Signs Initial Vital Signs: Vital Signs Pulse Oximetry 91 09/05/24 07:41 General: Healthy appearing, in no acute distress. Able to give a complete and coherent history. Well-nourished well-developed HEENT: Moist mucous membranes, normal sclera with reactive pupils, Respiratory: Lungs are clear to auscultation, no wheezing no rales no rhonchi. Full and symmetrical air movement Cardiac: Regular rate and rhythm with 306 systolic ejection murmur Abdomen: Soft, nontender, good bowel tones, no flank pain Skin: Warm and dry, Neurologic: Grossly neurologically intact with no obvious asymmetries or abnormalities Extremities: Left forearm wrist and hand are significantly edematous. Tenderness over the radial styloid with mild erythema no lymphangitic streaking. Extremities do not show sequelae of rheumatoid arthritis. No other joints or extremities are involved he is neurovascularly intact in the upper extremity Psych: Cooperative, appropriate insight and affect Course Vital Signs Vital signs: Vital Signs - 8 hr 09/05/24 07:41 09/05/24 07:42 09/05/24 07:42 Pulse Rate 81 Pulse Rate [Left Radial] Respiratory Rate Blood Pressure 136/101 H Pulse Oximetry 91 98 Oxygen Delivery Method 09/05/24 07:43 09/05/24 07:46 Pulse Rate 75 Pulse Rate [Left Radial] 80 Respiratory Rate 18 Blood Pressure 136/101 H Pulse Oximetry 98 Oxygen Delivery Method Room Air Medical Decision Making Imaging Data Left wrist x-ray: Radiologist's Impression: PROCEDURE: XR WRIST LT MIN 3V INDICATIONS: wrist pain TECHNIQUE: 3 views of the wrist were acquired. COMPARISON: [facility], CR, XR WRIST LT MIN 3V, 07/03/2023, 12:32. (Additional prior imaging is not available for review from the archive at the time of this dictation.) FINDINGS: Bones: Prominent degenerative changes can be seen involving the radial aspect of the carpus, with moderate to severe joint space narrowing involving the 1st carpometacarpal joint. Cyst formation can be seen within several bones, including within the scaphoid. There is at least moderate joint space narrowing seen within the radiocarpal joint. Soft tissues: Generalized soft tissue swelling is seen. Atherosclerotic calcification is noted. IMPRESSION: Prominent degenerative changes are seen. Soft tissue swelling can be seen. If it would be helpful for clinical management decision making, please consider a dedicated, scheduled wrist MRI for further evaluation (assuming that there is no contraindication). If there is strong clinical concern for a ligamentous abnormality, this should be performed according to the MR arthrogram protocol. Dictated by: Vikas Adam M.D. on 09/05/2024 at 7:47 MDM Narrative Medical decision making narrative: CC: Left upper extremity pain and swelling Complicating co-morbidities: Diabetes, hypertension, hyperlipidemia, medical records indicate possibility of gout and rheumatoid arthritis, patient does not confirm this Data collected from: patient Medical records reviewed: Recent family practice notes reviewed Patient did have a positive rheumatoid factor in December of 2019 elevated at 17.8 Differential considered: Upper extremity DVT, cellulitis, gout to the wrist, rheumatoid arthritis flare, Exam documented above, pertinent findings include: Aside from the left forearm wrist and hand swelling, pain and tenderness around the ulnar styloid exam is benign. Other joints do not show any active synovitis or tenderness Lab Test results independently reviewed as above. Pertinent findings: CBC shows no leukocytosis and chronic stable anemia Chemistries show hyponatremia at 129, creatinine improved over his baseline at 1.34 Uric acid is elevated at 9.4 C-reactive protein elevated at 4.0 Sed rate is elevated at 51, he does have a chronically elevated sed rate Procalcitonin is not elevated Imaging studies independently reviewed: X-ray shows chronic degenerative changes with cyst formation within several bones including scaphoid. No mention of sequelae of rheumatoid joint degeneration Ultrasound of the upper extremity does not show DVT Treatments: IV Toradol, parenteral Solu-Medrol Discussion: 73-year-old gentleman with 4 days of increasing upper extremity pain seems to be localized at the wrist with associated hand edema. Given the overall edema, global tenderness rather than exquisite tenderness only with joint movement I do not think that this is septic joint. With the elevated uric acid as well as inflammatory factors I suspect that this is gout flare. Slight improvement only with Toradol, given his chronic kidney disease I am going to place him on colchicine 0.6 mg b.i.d. until he feels that the flare has resolved. I have also given him 40 mg of prednisone to take daily to help with the acute inflammation. I did give him a total of 10 days but we talked about using it for 2 or 3 more days based on symptoms. He understands how it will affect his diabetes. Briefly discussed with him the hyponatremia and suggested that he cut his current water intake in half. He states that he purposely drinks L of water a day. I have asked him to follow up with his primary care physician. At this point there is no indication for additional imaging, lab work or hospitalization he is safe for discharge Discharge Plan Departure Patient Disposition: Home Clinical Impression: Acute hyponatremia Gout Qualifiers: Gout site: wrist Gout etiology: unspecified cause Chronicity: acute Laterality: left Qualified Code(s): M10.9 - Gout, unspecified Chronic kidney disease Qualifiers: Chronic kidney disease stage: unspecified stage Qualified Code(s): N18.9 - Chronic kidney disease, unspecified Acute wrist pain Qualifiers: Laterality: left Qualified Code(s): M25.532 - Pain in left wrist Instructions: DI for Gout Activity Restrictions/Additional Instructions: Thank you for coming in today I think that you are having a gout flare in your left wrist. You do not have a blood clot, I do not think that there is infection. The question of whether you have rheumatoid arthritis or not still needs to be answered by your outpatient physicians but this too may be contributing to the pain You do have chronic kidney disease and all the water that you are forcing yourself to drink is actually making your sodium level too low. I would recommend cutting the large volume of water and half. To treat gout pain we frequently use medications like indomethacin, ibuprofen or Alleve. With your kidney dysfunction I would like to avoid these medications I am going to give you a prescription for colchicine. Please use 0.6 mg orally twice a day until the pain in your wrist is significantly improved. Similarly, I am going to suggest that you take 40 mg of prednisone daily to help with the pain and inflammation. This can be discontinued when you feel that you are starting to improve, continue the colchicine for a couple of more days to make sure that entirely resolves. The prednisone will likely increase your blood sugars The prescriptions have been electronically transmitted to [facility] in [place]. You do not need to start the prednisone until tomorrow. You do need a dose of colchicine before bed this evening You need to follow up with your primary care physician in about a week. Prescriptions: New colchicine 0.6 mg tablet 0.6 mg PO BID Qty: 60 0RF prednisone 20 mg tablet 40 mg PO DAILY Qty: 20 0RF No Action duloxetine 30 mg capsule,delayed release(/EC) See Rx Instructions .ROUTE .COMPLEX Qty: 180 3RF Dose Instruction: TAKE 1 CAPSULE TWICE DAILY Rx Instructions: TAKE 1 CAPSULE TWICE DAILY amlodipine 10 mg tablet See Rx Instructions .ROUTE .COMPLEX Qty: 90 3RF Dose Instruction: TAKE 1 TABLET BY MOUTH EVERY DAY Rx Instructions: TAKE 1 TABLET BY MOUTH EVERY DAY atorvastatin 20 mg tablet 20 mg PO DAILY Qty: 90 3RF glipizide 5 mg tablet See Rx Instructions .ROUTE .COMPLEX Qty: 90 3RF Dose Instruction: TAKE 1/2 TABLET BY MOUTH TWICE DAILY Rx Instructions: TAKE 1/2 TABLET BY MOUTH TWICE DAILY metoprolol succinate 50 mg tablet extended release 24 hr 50 mg PO BID Qty: 180 3RF tamsulosin 0.4 mg capsule See Rx Instructions .ROUTE .COMPLEX Qty: 180 3RF Dose Instruction: TAKE 2 CAPSULES BY MOUTH EVERY EVENING Rx Instructions: TAKE 2 CAPSULES BY MOUTH EVERY EVENING allopurinol 300 mg tablet 300 mg PO DAILY Qty: 90 3RF indomethacin 50 mg capsule 50 mg PO TID Qty: 10 0RF Rx Instructions: administer with food or milk colchicine 0.6 mg tablet 0.6 mg PO DAILY Qty: 30 0RF Rx Instructions: at the first sign of a gout flare, take two pills and then one more one hour later. Take one pill daily until pain is gone. gabapentin 600 mg tablet 1,800 mg PO BID Qty: 90 0RF cyclobenzaprine 10 mg tablet 10 mg PO TID PRN (Reason: muscle spasm) Qty: 30 0RF colchicine 0.6 mg tablet 0.6 mg PO DAILY indomethacin 50 mg capsule 50 mg PO TID Rx Instructions: administer with food or milk prednisone 20 mg tablet 40 mg PO DAILY Qty: 6 0RF Gemtesa 75 mg tablet 75 mg PO DAILY Qty: 90 3RF Referrals: Tommie Bar DO [Primary Care Provider] - Stand Alone Forms: Patient Portal/API
--- NOTE | 2024-09-05 08:18 | DI.RAD.S_ITS ---
PROCEDURE: XR WRIST LT MIN 3V INDICATIONS: wrist pain TECHNIQUE: 3 views of the wrist were acquired. COMPARISON: [facility], CR, XR WRIST LT MIN 3V, 07/03/2023, 12:32. (Additional prior imaging is not available for review from the archive at the time of this dictation.) FINDINGS: Bones: Prominent degenerative changes can be seen involving the radial aspect of the carpus, with moderate to severe joint space narrowing involving the 1st carpometacarpal joint. Cyst formation can be seen within several bones, including within the scaphoid. There is at least moderate joint space narrowing seen within the radiocarpal joint. Soft tissues: Generalized soft tissue swelling is seen. Atherosclerotic calcification is noted. IMPRESSION: Prominent degenerative changes are seen. Soft tissue swelling can be seen. If it would be helpful for clinical management decision making, please consider a dedicated, scheduled wrist MRI for further evaluation (assuming that there is no contraindication). If there is strong clinical concern for a ligamentous abnormality, this should be performed according to the MR arthrogram protocol. Dictated by: Vikas Adam M.D. on 09/05/2024 at 7:47 Approved by: Vikas Adam M.D. on 09/05/2024 at 7:49
--- NOTE | 2024-09-05 08:18 | DI.US.S_ITS ---
PROCEDURE: US PERIPH VENOUS UP EXTREM LT INDICATIONS: asymmetric edema TECHNIQUE: Real-time imaging, as well as color and pulse Doppler interrogation, was performed of the upper extremity deep veins from the inferior neck to the antecubital fossa. COMPARISON: None. FINDINGS: The internal jugular vein, visualized portions of the subclavian vein, axillary, and brachial veins are free of intraluminal thrombus. Where physically possible, the veins are normally compressible. Color and pulse Doppler demonstrate normal intraluminal flow, with expected phasicity and pulsatility. Additional scanning of the cephalic and basilic veins of the superficial system demonstrates normal compressibility, without thrombus. IMPRESSION: No findings of upper extremity deep venous thrombosis can be seen. Dictated by: Vikas Adam M.D. on 09/05/2024 at 8:34 Approved by: Vikas Adam M.D. on 09/05/2024 at 8:34
[2024-09-05 08:26] LABS: Add Manual Diff / Slide Review NO; Basophils Absolute Auto 0 /uL (0-100); Basophils Percent Auto 0.4 % (0-2); Eosinophils Absolute Auto 100 /uL (0-450); Eosinophils Percent Auto 1.4 % (2-4); Hematocrit 33.5 % (41-53); Hemoglobin 11.6 g/dL (13.5-17.5); Lymphocytes Absolute Auto 2200 /uL (1100-4500); Lymphocytes Percent Auto 30.7 % (25-40); Mean Corpuscular HGB Conc 34.7 % (30-36); Mean Corpuscular Hemoglobin 32.7 PG (26-34); Mean Corpuscular Volume 94.3 fL (80-100); Monocytes Absolute Auto 900 /uL (0-900); Monocytes Percent Auto 13.4 % (3-14); Neutrophils Absolute Auto 3800 /uL (1500-7000); Neutrophils Percent Auto 54.1 % (50-75); Platelet Count 222 X10^3/uL (150-400); Red Blood Cell Count 3.56 X10^6/uL (4.5-5.9); Red Cell Distribution Width 15.4 % (11.6-14.8)
[2024-09-05] MEDS: KETOROLAC 30 MG/ML VIAL 15 MG IV (08:27)
[2024-09-05 08:35] LABS: Alanine Aminotransferase 18 IU/L (<50); Albumin Globulin Ratio 1.4 (1.0-2.8); Alkaline Phosphatase 107 U/L (38-126); Aspartate Aminotransferase 29 IU/L (17-59); BUN Creatinine Ratio 19.4 (6-22); Blood Urea Nitrogen 27 mg/dL (9-20); Calcium 8.9 mg/dL (8.4-10.2); Carbon Dioxide 24 mmol/L (22-32); Chloride 96 mmol/L (98-107); Estimated Glomerular Filt Rate 54 mL/min (>60); Globulin 2.9 g/dL (1.7-4.1); Glucose 219 mg/dL (80-110); HEMOLYSIS < 15 (0-50); Potassium 4.4 mmol/L (3.4-5.1); Sodium 129 mmol/L (137-145); Total Protein 6.9 g/dL (6.3-8.2); Uric Acid 9.4 mg/dL (3.5-8.5)
[2024-09-05 08:44] LABS: Erythrocyte Sedimentation Rate 51 MM/HR (0-15)
[2024-09-05 08:49] LABS: Procalcitonin 0.107 ng/mL (<0.5)
[2024-09-05] MEDS: methylPREDNISolone 125 MG/2 ML VIAL 40 MG IV (09:32)
[2024-09-05] MEDS: COLCHICINE 0.6 MG TABLET 1.2 MG PO (09:34)
== END 2024-09-05 10:04 | disposition home or self-care (01) ==
PROVIDERS: Emergency Provider Emergency Medicine; Family Provider Family Medicine; PCP Family Medicine
DX: M10.9 Gout, unspecified (principal); N18.9 Chronic kidney disease, unspecified; E87.1 Hypo-osmolality and hyponatremia; M25.532 Pain in left wrist; I10 Essential (primary) hypertension
CPT/HCPCS: 36415; 73110; 80053; 84145; 84550; 85025; 85651; 86140; 93971; 96374; 96375; 99284; J1885; J2919

== ENCOUNTER 2024-10-05 08:47 | Emergency (ER) | payer MEDICARE, OTHER, SELFPAY ==
[2023-03-15 09:23] VITALS: BMI 22.4
[2024-10-05] VITALS (19 sets, daily range): BP systolic 138–237; BP diastolic 72–104; PULSE 68–91; RESP 17–20; TEMP 36.6–37.4; O2SAT 92–99; BMI 24.4
--- NOTE | 2024-10-05 09:17 | DI.RAD.S_ITS ---
PROCEDURE: XR WRIST LT MIN 3V INDICATIONS: fall/ deformity TECHNIQUE: 5 views of the wrist were acquired. COMPARISON: [facility], , XR WRIST LT MIN 3V, 09/05/2024, 8:28. FINDINGS: Bones: Osteoarthritic changes are noted throughout wrist joints. Nonspecific intraosseous cyst formation in distal radius, mid to distal scaphoid and proximal triquetrum are seen. No radiographic evidence of avascular necrosis. Soft tissues: Dorsal wrist soft tissue swelling is noted. No suspicious soft tissue calcifications. IMPRESSION: No gross acute left wrist fracture or dislocation. Moderate osteoarthritis throughout wrist joints and significant dorsal soft tissue swelling. Intraosseous cyst formation in distal radius and multiple carpal bones as above. Dictated by: Marek Sands M.D. on 10/05/2024 at 10:05 Approved by: Marek Sands M.D. on 10/05/2024 at 10:08
[2024-10-05] MEDS: HYDROCODONE/ACET 5/325 TABLET 1 TAB PO (09:25)
--- NOTE | 2024-10-05 11:48 | ED.UPPEXIN ---
HPI - Extremity Injury (Upper) General Chief Complaint: Extremity Injury, Upper Stated Complaint: Left wrist pain Time Seen by Provider: 10/05/24 11:47 Source: patient Mode of arrival: Ambulatory History of Present Illness HPI narrative: Patient is a 73-year-old male history of alcohol use disorder gout chronic pain rheumatoid arthritis hypertension diabetes presenting today with left wrist pain. He reports that he fell down while walking the dog and used his wrist to catch him. It is significantly swollen erythematous over the ulnar area. He was seen and evaluated here about 1 month ago for the same. He was diagnosed with gout at that time sent home with prednisone and colchicine and pain started to improve. Today he fell denies any head injury neck pain no anticoagulation. Significantly tender on palpation Related Data Previous Rx's Medication Instructions Recorded duloxetine 30 mg capsule,delayed See Rx Instructions .Route 12/10/22 release .COMPLEX #180 caps amlodipine 10 mg tablet See Rx Instructions .Route 04/30/23 .COMPLEX #90 tabs atorvastatin 20 mg tablet 20 mg PO DAILY #90 tabs 04/30/23 glipizide 5 mg tablet See Rx Instructions .Route 04/30/23 .COMPLEX #90 tabs metoprolol succinate 50 mg 50 mg PO BID #180 tabs 04/30/23 tablet,extended release 24 hr tamsulosin 0.4 mg capsule See Rx Instructions .Route 04/30/23 .COMPLEX #180 caps prednisone 20 mg tablet 40 mg (2 x 20 mg) PO DAILY #6 tabs 07/03/23 cyclobenzaprine 10 mg tablet 10 mg PO TID PRN muscle spasm #30 09/12/23 tabs prednisone 20 mg tablet 40 mg (2 x 20 mg) PO DAILY #20 tabs 09/05/24 gabapentin 600 mg tablet 1,800 mg (3 x 600 mg) PO BID #180 09/10/24 tabs hydrocodone 5 mg-acetaminophen 325 1 tab PO Q6H PRN pain #8 tabs 10/05/24 mg tablet Allergies Allergy/AdvReac Type Severity Reaction Status Date / Time latex Allergy Mild RASH/ITCH Verified 09/30/24 08:54 (tape) pollen extracts Allergy Mild SINUS AND Verified 09/30/24 08:54 [POLLEN EXTRACTS] CHEST CONGESTION adhesive tape [ADHESIVE TAPE] AdvReac Unknown ITCHY Verified 09/30/24 08:54 Patient History Medical History (Updated 10/05/24 @ 15:23 by Sammi Tony DO) Rheumatoid arthritis Uncomplicated opioid dependence (12/21/15) Opioid type dependence in remission Incontinence of urine Urge incontinence Plantar fasciitis, right Acute pain of right shoulder BPH w urinary obs/LUTS Biceps tendon rupture, traumatic Shoulder pain, bilateral Aortic stenosis, moderate Chronic pain of right ankle Dyspnea on exertion Trigger finger, right ring finger Trigger finger, left ring finger Sleep initiation dysfunction Plantar fasciitis of left foot Thoracic region somatic dysfunction Cranial somatic dysfunction Segmental and somatic dysfunction of abdomen and other regions Somatic dysfunction of lower extremity Pain in knee region after replacement of knee joint Segmental and somatic dysfunction of rib cage BPH w urinary obs/LUTS Sacral region somatic dysfunction Pelvic somatic dysfunction Leg cramps, sleep related Seasonal allergic rhinitis Diabetic neuropathy associated with type 2 diabetes mellitus Erectile dysfunction Ankle fracture Cervical somatic dysfunction Chronic back pain Pancreatitis Chronic kidney disease Bilateral carotid artery disease (~09/2018) Ascending aorta dilatation Bilateral carpal tunnel syndrome Coronary artery disease (Unknown) GERD (gastroesophageal reflux disease) (Unknown) History of ETOH abuse (Unknown) Chronic pain syndrome (Unknown) Depression (Unknown) Anxiety (Unknown) Low back pain (Unknown) Rheumatoid arthritis (Unknown) Peripheral neuropathy (Unknown) Diabetes (Unknown) Hypertension (Unknown) Hyperlipemia (Unknown) Surgical History History of lumbar spinal fusion (01/06/20) Vasectomy status Hx of cholecystectomy History of surgical removal of skin lesion History of surgery S/P cervical spinal fusion History of back surgery (~2012) Status post knee surgery Status post hernia repair Family History Mother Stroke Father Cancer Social History household members: none Smoking Status: Former smoker alcohol intake: current Smoking Status: Former smoker alcohol intake frequency: 3 or more drinks per day Alcohol type: beer and wine Substance Use Type: marijuana Exam Initial Vital Signs Initial Vital Signs: Vital Signs Pulse Oximetry 92 10/05/24 09:10 GENERAL: Alert 73-year-old male HEENT: Head atraumatic,EOMI, pupils reactive, face symmetric, moist mucous membranes Neck supple no vertebral tenderness full range of CARDIOVASCULAR: Regular rate and rhythm without murmurs, rubs or gallops. RESPIRATORY: Breath sounds equal bilaterally, no wheezes rales or rhonchi. ABDOMEN: Soft, nontender. Normoactive bowel sounds all 4 quadrants. No guarding or rebound. EXTREMITIES: Normal range of motion, no clubbing or edema. Left upper extremity significant swelling erythema over left ulnar area distal radial pulse intact decreased supination and pronation decreased flexion and extension. Nontender at elbow clavicle or shoulder. Lower extremity Chronic venous stasis greater in right than left NEUROLOGICAL: Alert and oriented x4.Normal gait and speech. SKIN: Warm, dry, no laceration, no petechiae, no rashes or lesions. Course Orders Ordered: Discontinued Medications Hydrocodone Bitart/Acetaminophen (Hydrocodone/Acet 5/325 Tablet) 1 tab PO NOW ONE Stop: 10/05/24 09:18 Last Admin: 10/05/24 09:25 Dose: 1 tab Documented By: MYRA Amlodipine Besylate (Amlodipine 5 Mg Tablet) 10 mg PO NOW ONE Stop: 10/05/24 12:24 Last Admin: 10/05/24 12:31 Dose: 10 mg Documented By: VANESSA Ibuprofen (Ibuprofen 400 Mg Tablet) 800 mg PO NOW ONE Stop: 10/05/24 11:49 Last Admin: 10/05/24 12:31 Dose: 800 mg Documented By: RB Metoprolol Succinate (Metoprolol Er 50 Mg Tablet) 50 mg PO NOW ONE Stop: 10/05/24 12:25 Last Admin: 10/05/24 12:48 Dose: 50 mg Documented By: RB Naloxone HCl (Naloxone 0.4 Mg/Ml Vial) 0.4 mg IV Q2MIN PRN PRN Reason: Opiate Reversal Vital Signs Vital signs: Vital Signs - 8 hr 10/05/24 13:18 10/05/24 13:19 10/05/24 13:44 Temperature Pulse Rate 86 86 69 Pulse Rate [Bilateral Radial] Respiratory Rate 20 Blood Pressure 182/80 H 182/80 H 177/84 H Pulse Oximetry 99 97 Oxygen Delivery Method Room Air Room Air 10/05/24 14:03 10/05/24 14:40 10/05/24 15:39 Temperature 97.9 F Pulse Rate 69 80 Pulse Rate [Bilateral Radial] 80 Respiratory Rate 17 18 Blood Pressure 149/72 H 138/72 Pulse Oximetry 97 99 Oxygen Delivery Method Room Air Room Air MDM - Extremity Injury (Upper) Imaging Data Extremity x-ray #1: Radiologist's Impression: PROCEDURE: XR WRIST LT MIN 3V INDICATIONS: fall/ deformity TECHNIQUE: 5 views of the wrist were acquired. COMPARISON: [facility], , XR WRIST LT MIN 3V, 09/05/2024, 8:28. FINDINGS: Bones: Osteoarthritic changes are noted throughout wrist joints. Nonspecific intraosseous cyst formation in distal radius, mid to distal scaphoid and proximal triquetrum are seen. No radiographic evidence of avascular necrosis. Soft tissues: Dorsal wrist soft tissue swelling is noted. No suspicious soft tissue calcifications. IMPRESSION: No gross acute left wrist fracture or dislocation. Moderate osteoarthritis throughout wrist joints and significant dorsal soft tissue swelling. Intraosseous cyst formation in distal radius and multiple carpal bones as above. Dictated by: Marek Sands M.D. on 10/05/2024 at 10:05 Extremity x-ray #2: Radiologist's Impression: PROCEDURE: XR ELBOW LT MIN 3V INDICATIONS: pain fall TECHNIQUE: 3 views of the elbow were acquired. COMPARISON: None. FINDINGS: Bones: No fractures or dislocations. No suspicious bony lesions. Soft tissues: No elbow joint effusion. No suspicious soft tissue calcifications. IMPRESSION: No acute bony abnormality or significant joint effusion. Dictated by: Sohail Roy M.D. on 10/05/2024 at 13:00 MR Wrist: Radiologist's Impression: Ordering Provider: Sammi Tony D.O. PROCEDURE: MR WRIST LT WO CON INDICATIONS: pain ongoing swelling - left TECHNIQUE: Noncontrast coronal proton density fast spin echo and T2 fast spin echo with fat saturation; coronal 3-D gradient echo, axial T1 spin echo and T2 fast spin echo with fat saturation, sagittal T1 spin echo through the wrist. COMPARISON: [facility], , XR WRIST LT MIN 3V, 10/05/2024, 9:15. FINDINGS: Image quality: Excellent. Bones and cartilage: Severe degenerative changes of the 1st carpometacarpal joint, with associated subchondral cystic changes and mild marrow edema. Mild degenerative changes of the triscaphe joint with associated mild marrow edema. Large subchondral cystic changes at the distal scaphoid, favoring degenerative as well. Severe degenerative changes of the radiocarpal joint, with mild subchondral cystic changes and marrow edema. Diffuse marrow edema at the 1st proximal phalangeal base, extending into the diaphysis, favoring degenerative. There is short segment of marrow edema at the 3rd and the 4th metacarpal proximal diaphysis, nonspecific. Moderate intercarpal joint effusion. Carpal ligaments: Sprain of the scapholunate ligament, without full-thickness tear. Widening of the scapholunate interval. The lunotriquetral ligament is intact. Triangular fibrocartilage complex: Near complete maceration of the central disc. The fovea attachment is not visualized, likely secondary to full-thickness tear. Full-thickness tear of the ulnar styloid attachment. Moderate effusion of the distal radioulnar joint. Tendons and soft tissues: The carpal tunnel structures appear normal, including the median nerve. The ulnar nerve appears normal within Guyon's canal. Mild tenosynovitis of the extensor carpi ulnaris, at the level of the distal ulna. Mild tenosynovitis of the 2nd, 3rd, and 4th extensor tendon compartment. No ganglion cyst. Diffuse subcutaneous edema of the dorsal wrist. IMPRESSION: 1. Near complete maceration of the central disc of the triangular fibrocartilage. Full-thickness tear of the fovea and the ulnar styloid attachment. 2. Widening of the scapholunate interval with sprain of the scapholunate ligament. 3. Degenerative changes in the wrist, most pronounced and severe at the 1st carpal metacarpal, and the radiocarpal joint. 4. Short segment of mild marrow edema at the 3rd and 4th metacarpal proximal diaphysis, nonspecific. 5. Mild tenosynovitis of the extensor tendons. 6. Diffuse subcutaneous edema of the dorsal wrist. Dictated by: Shabana Garcia M.D. on 10/05/2024 at 14:42 MDM Narrative Medical decision making narrative: Patient is 73-year-old male history of gout chronic ongoing left wrist pain presents today after fall. He has tenderness over all in a other some mild erythema and he has some mild swelling he is neurovascularly intact. X-ray is read as negative but reviewed by myself and does seem a little abnormal. Dr. Zee on-call orthopedic has been updated on x-ray results request that he have an emergent wrist MRI today She is updated on MRI results which show near complete maceration of central disc of the triangular fibrocartilage and full-thickness tear of the vulva in the ulnar styloid attachment. At this time ortho recommends wrist splint pain medication and follow-up. This is unlikely to be gout related. He was given [place] and Motrin here in the ED he is feeling a bit better Discharge Plan Departure Patient Disposition: Home Clinical Impression: Left wrist sprain Instructions: DI for Wrist Sprain Activity Restrictions/Additional Instructions: *You have been diagnosed with left wrist sprain *What to do: At this time please keep arm elevated apply ice 20-30 minutes at a time. He will also need to follow up Dr. Sanchez and Orthopedics. Wear splint as needed for comfort *Continue to take medications as directed [place] 1 tablet every 6 hours if needed for severe pain *Follow up with your primary care provider in 2-3 days or call [phone] Dr. Sanchez with [facility] *Return to ER if you should have increasing pain fever swelling or any new, worsening or concerning symptoms CONTROLLED SUBSTANCE DISCHARGE (Narcotoic/benzodiazepine/Flexeril/Phenergan) 1. You have been prescribed narcotic medications, it does have acetaminophen/Tylenol/paracetamol in it, DO NOT TAKE MORE THAN 4,00mg in 24 hours of Tylenol. TRAMADOL DOES NOT CONTAIN TYLENOL 2. Please understand that we cannot provide further refills of narcotics, benzodiazepines or controlled substances through the ED and her pain management will need to be through your provider. 3. While on these medications you cannot drive or operate heavy machinery. 4. You cannot sign legal documents or perform any duties such as this. 5. As long as you're taking opiate pain medications he should also be taking a stool softener such as Colace, Dulcolax, MiraLAX or prune juice, to help avoid constipation. Prescriptions: New hydrocodone-acetaminophen 5-325 mg tablet 1 tab PO Q6H PRN (Reason: pain) Qty: 8 0RF No Action duloxetine 30 mg capsule,delayed release(DR/EC) See Rx Instructions .ROUTE .COMPLEX Qty: 180 3RF Dose Instruction: TAKE 1 CAPSULE TWICE DAILY Rx Instructions: TAKE 1 CAPSULE TWICE DAILY amlodipine 10 mg tablet See Rx Instructions .ROUTE .COMPLEX Qty: 90 3RF Dose Instruction: TAKE 1 TABLET BY MOUTH EVERY DAY Rx Instructions: TAKE 1 TABLET BY MOUTH EVERY DAY atorvastatin 20 mg tablet 20 mg PO DAILY Qty: 90 3RF glipizide 5 mg tablet See Rx Instructions .ROUTE .COMPLEX Qty: 90 3RF Dose Instruction: TAKE 1/2 TABLET BY MOUTH TWICE DAILY Rx Instructions: TAKE 1/2 TABLET BY MOUTH TWICE DAILY metoprolol succinate 50 mg tablet extended release 24 hr 50 mg PO BID Qty: 180 3RF tamsulosin 0.4 mg capsule See Rx Instructions .ROUTE .COMPLEX Qty: 180 3RF Dose Instruction: TAKE 2 CAPSULES BY MOUTH EVERY EVENING Rx Instructions: TAKE 2 CAPSULES BY MOUTH EVERY EVENING cyclobenzaprine 10 mg tablet 10 mg PO TID PRN (Reason: muscle spasm) Qty: 30 0RF gabapentin 600 mg tablet 1,800 mg PO BID Qty: 180 12RF prednisone 20 mg tablet 40 mg PO DAILY Qty: 6 0RF prednisone 20 mg tablet 40 mg PO DAILY Qty: 20 0RF Referrals: Tommie Bar DO [Primary Care Provider] - Stand Alone Forms: Patient Portal/API/Survey
--- NOTE | 2024-10-05 11:56 | DI.MRI.S_ITS ---
PROCEDURE: MR WRIST LT WO CON INDICATIONS: pain ongoing swelling - left TECHNIQUE: Noncontrast coronal proton density fast spin echo and T2 fast spin echo with fat saturation; coronal 3-D gradient echo, axial T1 spin echo and T2 fast spin echo with fat saturation, sagittal T1 spin echo through the wrist. COMPARISON: [facility], CR, XR WRIST LT MIN 3V, 10/05/2024, 9:15. FINDINGS: Image quality: Excellent. Bones and cartilage: Severe degenerative changes of the 1st carpometacarpal joint, with associated subchondral cystic changes and mild marrow edema. Mild degenerative changes of the triscaphe joint with associated mild marrow edema. Large subchondral cystic changes at the distal scaphoid, favoring degenerative as well. Severe degenerative changes of the radiocarpal joint, with mild subchondral cystic changes and marrow edema. Diffuse marrow edema at the 1st proximal phalangeal base, extending into the diaphysis, favoring degenerative. There is short segment of marrow edema at the 3rd and the 4th metacarpal proximal diaphysis, nonspecific. Moderate intercarpal joint effusion. Carpal ligaments: Sprain of the scapholunate ligament, without full-thickness tear. Widening of the scapholunate interval. The lunotriquetral ligament is intact. Triangular fibrocartilage complex: Near complete maceration of the central disc. The fovea attachment is not visualized, likely secondary to full-thickness tear. Full-thickness tear of the ulnar styloid attachment. Moderate effusion of the distal radioulnar joint. Tendons and soft tissues: The carpal tunnel structures appear normal, including the median nerve. The ulnar nerve appears normal within Guyon's canal. Mild tenosynovitis of the extensor carpi ulnaris, at the level of the distal ulna. Mild tenosynovitis of the 2nd, 3rd, and 4th extensor tendon compartment. No ganglion cyst. Diffuse subcutaneous edema of the dorsal wrist. IMPRESSION: 1. Near complete maceration of the central disc of the triangular fibrocartilage. Full-thickness tear of the fovea and the ulnar styloid attachment. 2. Widening of the scapholunate interval with sprain of the scapholunate ligament. 3. Degenerative changes in the wrist, most pronounced and severe at the 1st carpal metacarpal, and the radiocarpal joint. 4. Short segment of mild marrow edema at the 3rd and 4th metacarpal proximal diaphysis, nonspecific. 5. Mild tenosynovitis of the extensor tendons. 6. Diffuse subcutaneous edema of the dorsal wrist. Dictated by: Shabana Garcia M.D. on 10/05/2024 at 14:42 Approved by: Shabana Garcia M.D. on 10/05/2024 at 14:54
--- NOTE | 2024-10-05 12:07 | PC.NURSE ---
This patient transferred into a room this RN is responsible for without any report being given to this RN. This RN notes patient last blood pressure is 222/100 and called to discuss with cupola charger insulation nurse. Charge notes that this has been similar blood pressures that were present over in previous room and that ED provider is aware. This RN places patient on mobile vitals monitor.
--- NOTE | 2024-10-05 12:20 | PC.NURSE ---
This RN talked to patient and confirmed that normally takes metoprolol succinate 50mg twice daily and amlodipine 10mg daily. Patient states that he hasn't taken them since Saturday morning. This RN went and talked to Dr. Tony who gave verbal order to give patient these medications.
[2024-10-05] MEDS: AMLODIPINE 5 MG TABLET 10 MG PO (12:31)
[2024-10-05] MEDS: IBUPROFEN 400 MG TABLET 800 MG PO (12:31)
--- NOTE | 2024-10-05 12:35 | PC.NURSE ---
This RN administered ordered medications available in Pyxis and called Obed from pharmacy for remaining medications.
[2024-10-05] MEDS: METOPROLOL ER 50 MG TABLET PO (12:48)
--- NOTE | 2024-10-05 14:05 | PC.NURSE ---
Patient left department with DI physician assistant surgery in Wheelchair for MRI.
--- NOTE | 2024-10-05 14:36 | PC.NURSE ---
Patient back from MRI, in room
== END 2024-10-05 15:39 | disposition home or self-care (01) ==
PROVIDERS: Emergency Provider Emergency Medicine; Family Provider Family Medicine; PCP Family Medicine
DX: S63.502A Unspecified sprain of left wrist, initial encounter (principal); M25.522 Pain in left elbow; W18.30XA Fall on same level, unspecified, initial encounter
CPT/HCPCS: 73080; 73110; 73221; 99283

== ENCOUNTER 2025-05-20 16:38 | Emergency (ER) | payer MEDICARE, OTHER, SELFPAY ==
[2023-03-15 09:23] VITALS: BMI 22.4
[2025-05-20 16:53] VITALS: BP 170/91; PULSE 112; RESP 20; TEMP 38; O2SAT 95; BMI 23.7
[2025-05-20 16:58] VITALS: BP 168/79; PULSE 98; RESP 22; O2SAT 96
--- NOTE | 2025-05-20 16:59 | DI.RAD.S_ITS ---
PROCEDURE: XR WRIST LT MIN 3V INDICATIONS: fall 2 months ago with limited range of motion and pain TECHNIQUE: 4 views of the wrist were acquired. COMPARISON: [facility], CR, XR WRIST LT MIN 3V, 10/05/2024, 9:15. [facility], CR, XR WRIST LT MIN 3V, 09/05/2024, 8:28. FINDINGS: Bones: No fractures or dislocations. Redemonstration of degenerative changes, most pronounced involving the distal interphalangeal joints and 1st CMC joint. Cystic change within the distal radius and multiple carpal bones. No suspicious bony lesions. Soft tissues: No suspicious soft tissue calcifications. IMPRESSION: No acute osseous abnormality. If pain persists with conservative management, consider repeat x-ray in 10-14 days or cross-sectional imaging. Dictated by: Pierce Ruiz M.D. on 05/20/2025 at 17:26 Approved by: Pierce Ruiz M.D. on 05/20/2025 at 17:27
--- NOTE | 2025-05-20 17:06 | ED_ITS ---
HPI - Extremity Injury (Upper) General Chief Complaint: Extremity Injury, Upper Stated Complaint: Fall; L Wrist Injury Time Seen by Provider: 05/20/25 16:58 Source: patient Mode of arrival: Ambulatory History of Present Illness HPI narrative: This is a 74-year-old male presenting to the emergency department due to Related Data Previous Rx's ?Medication ?Instructions ?Recorded duloxetine 30 mg capsule,delayed See Rx Instructions . Route 12/10/22 release .COMPLEX #180 caps tamsulosin 0.4 mg capsule See Rx Instructions .Route 0 04/30/23 .COMPLEX #180 caps cyclobenzaprine 10 mg tablet 10 mg PO TID PRN muscle s pasm #30 09/12/23 tabs gabapentin 600 mg tablet 1,800 mg (3 x 600 mg) PO BID #180 09/10/24 tabs hydrocodone 5 mg-acetaminophen 325 1 tab PO Q6H PRN pa in #8 tabs 10/05/24 mg tablet amlodipine 10 mg tablet See Rx Instructions .Route 1 12/14/23 .COMPLEX #90 tabs atorvastatin 20 mg tablet 20 mg PO DAILY #90 tabs 12/0 02/01 furosemide 20 mg tablet 20 mg PO DAILY PRN edema #90 tabs 10/13/24 glipizide 5 mg tablet See Rx Instructions .Route 1 12/14/23 .COMPLEX #90 tabs metoprolol succinate 50 mg 50 mg PO BID #180 tabs 12/0 02/01 tablet,extended release 24 hr Allergies Allergy/AdvReac Type Severity Reaction Status Date / Time latex Allergy Mild RASH/ITCH Verified 05/20/25 16:54 (tape) pollen extracts (POLLEN Allergy Mild SINUS AND Verified 05/20/25 16:54 EXTRACTS) CHEST CONGESTION adhesive tape (ADHESIVE TAPE) AdvReac Unknown ITCHY Verified 05/20/25 16:54 Review of Systems Review of Systems Narrative: GENERAL: Denies chills, fatigue, malaise, fever, sweats. HEENT: Denies sinus pain, ear pain, sore throat, difficulty swallowing, dizziness. RESPIRATORY: Denies dyspnea, cough, wheezing, hemoptysis, sputum. CARDIOVASCULAR: Denies chest pain, palpitations, orthopnea, edema, GASTROINTESTINAL: Denies nausea, vomiting, abdominal pain, diarrhea, constipation, melena. : Denies dysuria, frequency, incontinence, hematuria, urinary retention. MUSCULOSKELETAL: denies weakness, joint pain, or bony pain SKIN: Denies rash, skin lesions, or other NEUROLOGIC: Denies weakness, headache, numbness, change in speech, confusion, seizures, incoordination. PSYCHIATRIC: No concerning psychosocial issues. 12 point review of systems is negative except for those stated above Patient History Medical History (Updated 10/20/24 @ 00:00 by ) Bilateral lower extremity edema Rheumatoid arthritis Uncomplicated opioid dependence (12/21/15) Opioid type dependence in remission Plantar fasciitis, right Acute pain of right shoulder BPH w urinary obs/LUTS Biceps tendon rupture, traumatic Shoulder pain, bilateral Aortic stenosis, moderate Chronic pain of right ankle Dyspnea on exertion Trigger finger, right ring finger Trigger finger, left ring finger Sleep initiation dysfunction Plantar fasciitis of left foot Thoracic region somatic dysfunction Cranial somatic dysfunction Segmental and somatic dysfunction of abdomen and other regions Somatic dysfunction of lower extremity Pain in knee region after replacement of knee joint Segmental and somatic dysfunction of rib cage BPH w urinary obs/LUTS Sacral region somatic dysfunction Pelvic somatic dysfunction Leg cramps, sleep related Seasonal allergic rhinitis Diabetic neuropathy associated with type 2 diabetes mellitus Erectile dysfunction Ankle fracture Cervical somatic dysfunction Chronic back pain Pancreatitis Chronic kidney disease Bilateral carotid artery disease (~09/2018) Ascending aorta dilatation Bilateral carpal tunnel syndrome Coronary artery disease (Unknown) GERD (gastroesophageal reflux disease) (Unknown) History of ETOH abuse (Unknown) Chronic pain syndrome (Unknown) Depression (Unknown) Anxiety (Unknown) Low back pain (Unknown) Rheumatoid arthritis (Unknown) Peripheral neuropathy (Unknown) Diabetes (Unknown) Hypertension (Unknown) Hyperlipemia (Unknown) Surgical History History of lumbar spinal fusion (01/06/20) Vasectomy status Hx of cholecystectomy History of surgical removal of skin lesion History of surgery S/P cervical spinal fusion History of back surgery (~2012) Status post knee surgery Status post hernia repair Family History Mother Stroke Father Cancer Social History household members: none Smoking Status: Former smoker alcohol intake: current Smoking Status: Former smoker alcohol intake frequency: 3 or more drinks per day Alcohol type: beer and wine Exam Narrative Exam Narrative: GENERAL: Well-developed patient, in mild distress. HEAD: Atraumatic. Normocephalic. EYES: Pupils equal round and reactive. Extraocular motions intact. No scleral icterus. No injection or drainage. ENT: Nose without bleeding, purulent drainage. Throat without erythema, tonsillar hypertrophy or exudate. Airway patent. NECK: Trachea midline. Non tender EXTREMITIES: No edema or joint tenderness. NEURO: AOx3. SKIN: No rash or erythema of visible areas Initial Vital Signs Initial Vital Signs: Vital Signs Temperature 100.4 F H 05/20/25 16:53 Pulse Rate 112 H 05/20/25 16:53 Respiratory Rate 20 05/20/25 16:53 Blood Pressure 170/91 H 05/20/25 16:53 Pulse Oximetry 95 05/20/25 16:53 Oxygen Delivery Method Room Air 05/20/25 16:53 Course Orders Ordered: ED Orders 05/20/25 16:59 XR wrist LT min 3V Stat Vital Signs Vital signs: Vital Signs - 8 hr 05/20/25 16:53 05/20/25 16:58 Temperature 100.4 F H Pulse Rate 112 H 98 H Respiratory Rate 20 22 Blood Pressure 170/91 H 168/79 H Pulse Oximetry 95 96 Oxygen Delivery Method Room Air Room Air MDM - Extremity Injury (Upper) MDM Narrative Medical decision making narrative: ED course: [ ] CC: [ ] Complicating co-morbidities: [ ] Data collected from: Previous notes Medical records reviewed: Patient was last seen in this emergency department 8 months ago due to left wrist pain. History of alcohol use disorder, gout, chronic pain, rheumatoid arthritis, hypertension, diabetes. Patient was seen a month prior to that for this similar issue. At that time he was discharged with prescriptions for gout including prednisone and colchicine. X-rays were ordered which showed no fractures. Showed moderate osteoarthritis as well as intraosseous cyst formation. Patient also received MRI of the wrist which showed near-complete maceration central disc of the triangular fibrocartilage as well as a full-thickness tear of the fovea in the ulnar styloid attachment as well as widening of the scapholunate interval with sprain of the scapholunate ligament. Orthopedics was broken to who had requested the emergent wrist MRI. Orthopedics recommended a wrist splint and follow up. During the visit a month prior patient has noted was have elevated temperature but lab work did not show any leukocytosis. Treated for gout. Differential considered, but not limited to: [ ] Exam documented above, pertinent findings include: [ ] Lab Test results independently reviewed as above. Pertinent findings: [ ] Imaging studies independently reviewed: [ ] Scores Used: None MIPS Elements: None Consultations: None Treatments: [ ] Re-evaluations: [ ] Discussion: Discussed plan with the patient was comfortable with the plan Diagnosis: [ ] Disposition: see below, along with detailed discharge instructions that have been reviewed with patient as well as indications for ED re-evaluation and additional outpatient follow up Discharge Plan Departure Prescriptions: No Action duloxetine 30 mg capsule,delayed release(DR/EC) See Rx Instructions .ROUTE .COMPLEX Qty: 180 3RF Dose Instruction: TAKE 1 CAPSULE TWICE DAILY Rx Instructions: TAKE 1 CAPSULE TWICE DAILY tamsulosin 0.4 mg capsule See Rx Instructions .ROUTE .COMPLEX Qty: 180 3RF Dose Instruction: TAKE 2 CAPSULES BY MOUTH EVERY EVENING Rx Instructions: TAKE 2 CAPSULES BY MOUTH EVERY EVENING cyclobenzaprine 10 mg tablet 10 mg PO TID PRN (Reason: muscle spasm) Qty: 30 0RF gabapentin 600 mg tablet 1,800 mg PO BID Qty: 180 12RF furosemide 20 mg tablet 20 mg PO DAILY PRN (Reason: edema) Qty: 90 3RF amlodipine 10 mg tablet See Rx Instructions .ROUTE .COMPLEX Qty: 90 3RF Dose Instruction: TAKE 1 TABLET BY MOUTH EVERY DAY Rx Instructions: TAKE 1 TABLET BY MOUTH EVERY DAY atorvastatin 20 mg tablet 20 mg PO DAILY Qty: 90 3RF glipizide 5 mg tablet See Rx Instructions .ROUTE .COMPLEX Qty: 90 3RF Dose Instruction: TAKE 1/2 TABLET BY MOUTH TWICE DAILY Rx Instructions: TAKE 1/2 TABLET BY MOUTH TWICE DAILY metoprolol succinate 50 mg tablet extended release 24 hr 50 mg PO BID Qty: 180 3RF hydrocodone-acetaminophen 5-325 mg tablet 1 tab PO Q6H PRN (Reason: pain) Qty: 8 0RF Referrals: Tommie Bar DO [Primary Care Provider, Family Practice]
[2025-05-20 17:47] VITALS: PULSE 92; O2SAT 97
[2025-05-20 17:48] VITALS: BP 166/81; PULSE 91; O2SAT 98
--- NOTE | 2025-05-20 17:58 | ED_ITS ---
HPI - Extremity Injury (Upper) General Chief Complaint: Extremity Injury, Upper Stated Complaint: Fall; L Wrist Injury Time Seen by Provider: 05/20/25 16:58 Source: patient Mode of arrival: Ambulatory History of Present Illness HPI narrative: Patient with pmhx of htn , hld, DM comes into the Ed from home for eval of lt wrist pain. pt had mechanical trip and fall x2 months ago and landed on lt wrist, has had persistent pain since then, states using ski wrist guard. No numbness weakness or tingling to UE, but due to persistent symptoms came into the ED for further eval and treatment. Patient states that he has not been taking any medications to help with his pain, he states that he has just has been having persistent pain to the left wrist. No new trauma or falls, Related Data Previous Rx's ?Medication ?Instructions ?Recorded duloxetine 30 mg capsule,delayed See Rx Instructions . Route 12/10/22 release .COMPLEX #180 caps tamsulosin 0.4 mg capsule See Rx Instructions .Route 0 04/30/23 .COMPLEX #180 caps cyclobenzaprine 10 mg tablet 10 mg PO TID PRN muscle s pasm #30 09/12/23 tabs gabapentin 600 mg tablet 1,800 mg (3 x 600 mg) PO BID #180 09/10/24 tabs hydrocodone 5 mg-acetaminophen 325 1 tab PO Q6H PRN pa in #8 tabs 10/05/24 mg tablet amlodipine 10 mg tablet See Rx Instructions .Route 1 12/14/23 .COMPLEX #90 tabs atorvastatin 20 mg tablet 20 mg PO DAILY #90 tabs 02/01 furosemide 20 mg tablet 20 mg PO DAILY PRN edema #90 tabs 10/13/24 glipizide 5 mg tablet See Rx Instructions .Route 1 12/14/23 .COMPLEX #90 tabs metoprolol succinate 50 mg 50 mg PO BID #180 tabs 02/01 tablet,extended release 24 hr naproxen 500 mg tablet (Naprosyn) 500 mg PO BID PRN pa in 1 week #14 05/20/25 tabs oxycodone-acetaminophen 5 mg-325 1 tab PO Q8H PRN pain 3 days #9 05/20/25 mg tablet (Percocet) tabs Allergies Allergy/AdvReac Type Severity Reaction Status Date / Time latex Allergy Mild RASH/ITCH Verified 05/20/25 16:54 (tape) pollen extracts (POLLEN Allergy Mild SINUS AND Verified 05/20/25 16:54 EXTRACTS) CHEST CONGESTION adhesive tape (ADHESIVE TAPE) AdvReac Unknown ITCHY Verified 05/20/25 16:54 Review of Systems Review of Systems Narrative: General: Denies fever, chills, weight loss HEENT: Denies headache, eye drainage, eye irritation, head trauma, sore throat, voice change Cardiovascular: Denies any chest pain, palpitations, tachycardia Respiratory: Denies any shortness of breath, cough, wheeze, stridor GI/: Denies any abdominal pain, nausea, vomiting, diarrhea, bright red blood per rectum, melanotic stools, urinary frequency, urinary retention, dysuria, hematuria MSK: Positive left wrist pain Skin: Denies any rashes, lesions, discoloration Neuro: Denies any headache, lightheadedness, dizziness, fainting, weakness Psych: Denies SI/HI Patient History Medical History (Updated 05/20/25 @ 18:01 by Hector Santoyo DO) Bilateral lower extremity edema Rheumatoid arthritis Uncomplicated opioid dependence (12/21/15) Opioid type dependence in remission Plantar fasciitis, right Acute pain of right shoulder BPH w urinary obs/LUTS Biceps tendon rupture, traumatic Shoulder pain, bilateral Aortic stenosis, moderate Chronic pain of right ankle Dyspnea on exertion Trigger finger, right ring finger Trigger finger, left ring finger Sleep initiation dysfunction Plantar fasciitis of left foot Thoracic region somatic dysfunction Cranial somatic dysfunction Segmental and somatic dysfunction of abdomen and other regions Somatic dysfunction of lower extremity Pain in knee region after replacement of knee joint Segmental and somatic dysfunction of rib cage BPH w urinary obs/LUTS Sacral region somatic dysfunction Pelvic somatic dysfunction Leg cramps, sleep related Seasonal allergic rhinitis Diabetic neuropathy associated with type 2 diabetes mellitus Erectile dysfunction Ankle fracture Cervical somatic dysfunction Chronic back pain Pancreatitis Chronic kidney disease Bilateral carotid artery disease (~09/2018) Ascending aorta dilatation Bilateral carpal tunnel syndrome Coronary artery disease (Unknown) GERD (gastroesophageal reflux disease) (Unknown) History of ETOH abuse (Unknown) Chronic pain syndrome (Unknown) Depression (Unknown) Anxiety (Unknown) Low back pain (Unknown) Rheumatoid arthritis (Unknown) Peripheral neuropathy (Unknown) Diabetes (Unknown) Hypertension (Unknown) Hyperlipemia (Unknown) Surgical History History of lumbar spinal fusion (01/06/20) Vasectomy status Hx of cholecystectomy History of surgical removal of skin lesion History of surgery S/P cervical spinal fusion History of back surgery (~2012) Status post knee surgery Status post hernia repair Family History Mother Stroke Father Cancer Social History household members: none Smoking Status: Former smoker alcohol intake: current Smoking Status: Former smoker alcohol intake frequency: 3 or more drinks per day Alcohol type: beer and wine Exam Narrative Exam Narrative: General: Cooperative, well-developed, not in acute distress HEENT: Normocephalic, atraumatic, PERRLA, normal sclera, eyelids normal Neck: Active full range of motion, atraumatic Chest: Normal to inspection, negative crepitus, no overlying erythema ecchymosis Respiratory: Normal respiratory effort, not in acute respiratory distress, clear to auscultation bilaterally negative cough, wheeze, tachypnea, rhonchi, rales Cardiology: Regular rate rhythm negative gallop, murmur, rubs GI/: No tenderness to palpation, soft, non rigid, normal to inspection, e xam deferred MSK: There is minor tenderness to palpation of the left wrist, however there is no overlying erythema no micro motion tenderness to palpation, no edema no streaking neurovascularly intact mild decreased range of motion secondary to pain of the left wrist Skin: No rashes or lesions noted Neuro: Alert awake oriented x3, moves all 4 extremities spontaneously, cranial nerves intact, able to answer all questions appropriately follows commands appropriately Psych: Cooperative, negative suicidal or homicidal ideations Initial Vital Signs Initial Vital Signs: Vital Signs Temperature 100.4 F H 05/20/25 16:53 Pulse Rate 112 H 05/20/25 16:53 Respiratory Rate 20 05/20/25 16:53 Blood Pressure 170/91 H 05/20/25 16:53 Pulse Oximetry 95 05/20/25 16:53 Oxygen Delivery Method Room Air 05/20/25 16:53 Course Orders Ordered: ED Orders 05/20/25 16:59 XR wrist LT min 3V Stat Discontinued Medications Dexamethasone (Dexamethasone 10 Mg/Ml Vial) 10 mg IM NOW ONE Stop: 05/20/25 18:13 Last Admin: 05/20/25 18:22 Dose: 10 mg Documented By: JOSIE Ketorolac Tromethamine (Ketorolac 30 Mg/Ml Vial) 30 mg IM NOW ONE Stop: 05/20/25 18:13 Last Admin: 05/20/25 18:22 Dose: 30 mg Documented By: JOSIE Oxycodone/Acetaminophen (Oxycodone/Apap 5/325 Prepack) 1 bottle MISC DIRECTED ONE Stop: 05/20/25 18:13 Last Admin: 05/20/25 18:24 Dose: 1 bottle Documented By: JOSIE Vital Signs Vital signs: Vital Signs - 8 hr 05/20/25 16:53 05/20/25 16:58 05/20/25 17:47 Temperature 100.4 F H Pulse Rate 112 H 98 H 92 H Respiratory Rate 20 22 Blood Pressure 170/91 H 168/79 H Pulse Oximetry 95 96 97 Oxygen Delivery Method Room Air Room Air 05/20/25 17:48 05/20/25 17:48 05/20/25 18:00 Temperature Pulse Rate 91 H 94 H Respiratory Rate 16 Blood Pressure 166/81 H Pulse Oximetry 98 98 Oxygen Delivery Method 05/20/25 18:00 Temperature Pulse Rate Respiratory Rate Blood Pressure 188/81 H Pulse Oximetry Oxygen Delivery Method MDM - Extremity Injury (Upper) Differential Diagnosis Differential diagnosis: Likely sprain and strain of wrist, fracture of wrist, finger sprain, dislocation of finger, Colles' fracture and fracture of hand Imaging Data Extremity x-ray #1: Radiologist's Impression: [address] [address] XRay Report Signed Patient: Hector Harper MR#: [id number] : 1950 Acct:[id number] Age/Sex: 74 / M Date of Service: 05/20/25 Loc: ED Accession Number: [id number] Procedure: XR wrist LT min 3V Ordering Provider: Semaj Gunn D.O. PROCEDURE: XR WRIST LT MIN 3V INDICATIONS: fall 2 months ago with limited range of motion and pain TECHNIQUE: 4 views of the wrist were acquired. COMPARISON: [facility], CR, XR WRIST LT MIN 3V, 10/05/2024, 9:15. [facility], CR, XR WRIST LT MIN 3V, 09/05/2024, 8:28. FINDINGS: Bones: No fractures or dislocations. Redemonstration of degenerative changes, most pronounced involving the distal interphalangeal joints and 1st CMC joint. Cystic change within the distal radius and multiple carpal bones. No suspicious bony lesions. Soft tissues: No suspicious soft tissue calcifications. IMPRESSION: No acute osseous abnormality. If pain persists with conservative management, consider repeat x-ray in 10-14 days or cross-sectional imaging. [facility] Narrative Medical decision making narrative: 74-year-old male with a past medical history of hypertension hyperlipidemia comes into the ED from home for evaluation of left wrist pain has been ongoing persistent for the past 2 months, states it started after he fell over his dog. He states that he landed primarily on his left side, states that he has only been using a ski wrist guard and has not been taking any medication help with his pain, he states that due to persistent pain decided come into the ED for further evaluation treatment. Patient on exam has tenderness to palpation to the left wrist but no micro motion tenderness no overlying erythema edema neurovascularly intact, no streaking, patient will be discharged home with velcro splint and analgesics, informed patient to follow up with Orthopedic surgery in outpatient setting, he verbalized understanding of this and agrees to being discharged home with outpatient follow up Discharge Plan Departure Patient Disposition: Home Clinical Impression: Wrist pain, left Instructions: DI for Wrist Sprain, DI for Wrist Pain Activity Restrictions/Additional Instructions: Please follow up with pcp and orthopaedic surgery as needed Prescriptions: New naproxen [Naprosyn] 500 mg tablet 500 mg PO BID PRN (Reason: pain) 7 Days Qty: 14 0RF oxycodone-acetaminophen [Percocet] 5-325 mg tablet 1 tab PO Q8H PRN (Reason: pain) 3 Days Qty: 9 0RF No Action duloxetine 30 mg capsule,delayed release(DR/EC) See Rx Instructions .ROUTE .COMPLEX Qty: 180 3RF Dose Instruction: TAKE 1 CAPSULE TWICE DAILY Rx Instructions: TAKE 1 CAPSULE TWICE DAILY tamsulosin 0.4 mg capsule See Rx Instructions .ROUTE .COMPLEX Qty: 180 3RF Dose Instruction: TAKE 2 CAPSULES BY MOUTH EVERY EVENING Rx Instructions: TAKE 2 CAPSULES BY MOUTH EVERY EVENING cyclobenzaprine 10 mg tablet 10 mg PO TID PRN (Reason: muscle spasm) Qty: 30 0RF gabapentin 600 mg tablet 1,800 mg PO BID Qty: 180 12RF furosemide 20 mg tablet 20 mg PO DAILY PRN (Reason: edema) Qty: 90 3RF amlodipine 10 mg tablet See Rx Instructions .ROUTE .COMPLEX Qty: 90 3RF Dose Instruction: TAKE 1 TABLET BY MOUTH EVERY DAY Rx Instructions: TAKE 1 TABLET BY MOUTH EVERY DAY atorvastatin 20 mg tablet 20 mg PO DAILY Qty: 90 3RF glipizide 5 mg tablet See Rx Instructions .ROUTE .COMPLEX Qty: 90 3RF Dose Instruction: TAKE 1/2 TABLET BY MOUTH TWICE DAILY Rx Instructions: TAKE 1/2 TABLET BY MOUTH TWICE DAILY metoprolol succinate 50 mg tablet extended release 24 hr 50 mg PO BID Qty: 180 3RF hydrocodone-acetaminophen 5-325 mg tablet 1 tab PO Q6H PRN (Reason: pain) Qty: 8 0RF Referrals: Austin Carmen MD [Physician, Orthopedic Surgery] Tommie Bar DO [Primary Care Provider, Family Practice] Stand Alone Forms: Patient Portal/API
[2025-05-20 18:00] VITALS: BP 188/81; PULSE 94; RESP 16; O2SAT 98
[2025-05-20] MEDS: DEXAMETHASONE 10 MG/ML VIAL IM (18:22)
[2025-05-20] MEDS: KETOROLAC 30 MG/ML VIAL IM (18:22)
[2025-05-20] MEDS: OXYCODONE/APAP 5/325 PREPACK 1 BOTTLE MISC (18:24)
== END 2025-05-20 18:45 | disposition home or self-care (01) ==
PROVIDERS: Emergency Provider Student in an Organized Health Care Education/Training Program; Family Provider Family Medicine; PCP Family Medicine
DX: M25.532 Pain in left wrist (principal)
CPT/HCPCS: 73110; 96372; 99283; J1100; J1885

== ENCOUNTER 2025-07-27 19:37 | Emergency (ER) | payer MEDICARE, OTHER, SELFPAY ==
[2023-03-15 09:23] VITALS: BMI 22.4
[2025-07-27] VITALS (11 sets, daily range): BP systolic 133–173; BP diastolic 68–81; PULSE 94–116; RESP 18–42; TEMP 37; O2SAT 93–96; BMI 23.7
--- NOTE | 2025-07-27 20:05 | PC.NURSE ---
provider made aware of patient having unwitnessed fall with unknown loss of consciousness, and altered mental status, unable to recall events prior or after fall and right neck pain. asked provider for eval at bedside at this time.
--- NOTE | 2025-07-27 20:12 | EKG_ITS ---
[facility] [address] [place] [address] Test Date: 2025-07-27 Pat Name: Hector Harper Department: [facility] Room: Gender: Male [employer]: ABENA : 1950 Requested By: Order Number: [id number] Reading MD: Edwardo Hill Measurements Intervals [place] Rate: 108 P: 73 UT: 168 QRS: -41 QRSD: 88 T: 69 QT: 362 QTc: 485 Interpretive Statements Sinus tachycardia Left axis deviation Minimal voltage criteria for LVH, may be normal variant ( [place] product ) Septal infarct , age undetermined Electronically Signed On 07-28-2025 7:24:49 PDT by Edwardo Hill
--- NOTE | 2025-07-27 20:12 | DI.RAD.S_ITS ---
PROCEDURE: XR CHEST 1V INDICATIONS: altered mental status TECHNIQUE: One view of the chest was acquired. COMPARISON: [facility], CR, XR CHEST 1V, 07/03/2023, 10:26. FINDINGS: Surgical changes and devices: Postsurgical changes are noted in included portion of cervical spine. Lungs and pleura: Lungs are clear. No pleural effusions or pneumothorax. Mediastinum: Mediastinal contours appear normal. Heart size is normal. Bones and chest wall: No suspicious bony lesions. Overlying soft tissues appear unremarkable. IMPRESSION: No acute cardiopulmonary pathology. Dictated by: Marek Sands M.D. on 07/27/2025 at 20:35 Approved by: Marek Sands M.D. on 07/27/2025 at 20:35
[2025-07-27 20:47] LABS: Add Manual Diff / Slide Review NO; Hematocrit 38.2 % (41-53); Hemoglobin 13.0 g/dL (13.5-17.5); Lymphocytes Absolute Auto 2200 /uL (1100-4500); Mean Corpuscular HGB Conc 34.0 % (30-36); Mean Corpuscular Hemoglobin 33.1 PG (26-34); Mean Corpuscular Volume 97.3 fL (80-100); Platelet Count 241 X10^3/uL (150-400)
[2025-07-27 20:54] LABS: Alanine Aminotransferase 25 IU/L (<50); Albumin 4.7 g/dL (3.5-5.0); Albumin Globulin Ratio 1.4 (1.0-2.8); Alkaline Phosphatase 132 U/L (38-126); Blood Urea Nitrogen 26 mg/dL (9-20); Calcium 9.1 mg/dL (8.4-10.2); Carbon Dioxide 13 mmol/L (22-32); Chloride 106 mmol/L (98-107); Creatine Kinase 164 U/L (55-170); Estimated Glomerular Filt Rate 32 mL/min (>60); Globulin 3.4 g/dL (1.7-4.1); Glucose 134 mg/dL (70-99); Potassium 4.8 mmol/L (3.4-5.1); Sodium 142 mmol/L (137-145); Total Protein 8.1 g/dL (6.3-8.2)
[2025-07-27 20:56] LABS: Lactate (Lactic Acid) 6.5 mmol/L (0.7-2.1)
--- NOTE | 2025-07-27 20:59 | PC.NURSE ---
critical lctate of 6.5 reported to provider at this time
--- NOTE | 2025-07-27 21:00 | ED.GENADULT ---
HPI - General Adult <Beth Mcgowan MD - Last Filed: 07/30/25 14:57> General Chief complaint: Altered Mental Status Stated complaint: Fall Time Seen by Provider: 07/27/25 19:50 Source: patient and EMS Mode of arrival: EMS History of Present Illness HPI narrative: 74-year-old gentleman with a history of hypertension, hyperlipidemia, diabetes, coronary artery diseas, rheumatoid arthritis found face down on his porch for unclear reasons. He was incontinent of urine. 911 was called and he is transported to the emergency department. He does not remember events. States he takes no medication, has not had any alcohol for a number of weeks but does continue to use marijuana. Related Data Previous Rx's ?Medication ?Instructions ?Recorded duloxetine 30 mg capsule,delayed See Rx Instructions .Route 12/10/22 release .COMPLEX #180 caps tamsulosin 0.4 mg capsule See Rx Instructions .Route 04/30/23 .COMPLEX #180 caps cyclobenzaprine 10 mg tablet 10 mg PO TID PRN muscle spasm #30 09/12/23 tabs gabapentin 600 mg tablet 1,800 mg (3 x 600 mg) PO BID #180 09/10/24 tabs hydrocodone 5 mg-acetaminophen 325 1 tab PO Q6H PRN pain #8 tabs 10/05/24 mg tablet amlodipine 10 mg tablet See Rx Instructions .Route 10/13/24 .COMPLEX #90 tabs atorvastatin 20 mg tablet 20 mg PO DAILY #90 tabs 10/13/24 furosemide 20 mg tablet 20 mg PO DAILY PRN edema #90 tabs 10/13/24 glipizide 5 mg tablet See Rx Instructions .Route 10/13/24 .COMPLEX #90 tabs metoprolol succinate 50 mg 50 mg PO BID #180 tabs 10/13/24 tablet,extended release 24 hr Allergies Allergy/AdvReac Type Severity Reaction Status Date / Time latex Allergy Mild RASH/ITCH Verified 07/27/25 19:47 (tape) pollen extracts (POLLEN Allergy Mild SINUS AND Verified 07/27/25 19:47 EXTRACTS) CHEST CONGESTION adhesive tape (ADHESIVE TAPE) AdvReac Unknown ITCHY Verified 07/27/25 19:47 Review of Systems <Beth Mcgowan MD - Last Filed: 07/30/25 14:57> Review of Systems Narrative: Pertinent positive and negative findings as per HPI Patient History <Beth Mcgowan MD - Last Filed: 07/30/25 14:57> Medical History Bilateral lower extremity edema Rheumatoid arthritis Uncomplicated opioid dependence (12/21/15) Opioid type dependence in remission Plantar fasciitis, right Acute pain of right shoulder BPH w urinary obs/LUTS Biceps tendon rupture, traumatic Shoulder pain, bilateral Aortic stenosis, moderate Chronic pain of right ankle Dyspnea on exertion Trigger finger, right ring finger Trigger finger, left ring finger Sleep initiation dysfunction Plantar fasciitis of left foot Thoracic region somatic dysfunction Cranial somatic dysfunction Segmental and somatic dysfunction of abdomen and other regions Somatic dysfunction of lower extremity Pain in knee region after replacement of knee joint Segmental and somatic dysfunction of rib cage BPH w urinary obs/LUTS Sacral region somatic dysfunction Pelvic somatic dysfunction Leg cramps, sleep related Seasonal allergic rhinitis Diabetic neuropathy associated with type 2 diabetes mellitus Erectile dysfunction Ankle fracture Cervical somatic dysfunction Chronic back pain Pancreatitis Chronic kidney disease Bilateral carotid artery disease (~09/2018) Ascending aorta dilatation Bilateral carpal tunnel syndrome Coronary artery disease (Unknown) GERD (gastroesophageal reflux disease) (Unknown) History of ETOH abuse (Unknown) Chronic pain syndrome (Unknown) Depression (Unknown) Anxiety (Unknown) Low back pain (Unknown) Rheumatoid arthritis (Unknown) Peripheral neuropathy (Unknown) Diabetes (Unknown) Hypertension (Unknown) Hyperlipemia (Unknown) Surgical History History of lumbar spinal fusion (01/06/20) Vasectomy status Hx of cholecystectomy History of surgical removal of skin lesion History of surgery S/P cervical spinal fusion History of back surgery (~2012) Status post knee surgery Status post hernia repair Family History Mother Stroke Father Cancer Social History household members: none Smoking Status: Former smoker alcohol intake: current Smoking Status: Former smoker alcohol intake frequency: 3 or more drinks per day Alcohol type: beer and wine Exam <Beth Mcgowan MD - Last Filed: 07/30/25 14:57> Initial Vital Signs Initial Vital Signs: Vital Signs Temperature 98.6 F 07/27/25 19:47 Pulse Rate 116 H 07/27/25 19:47 Respiratory Rate 18 07/27/25 19:47 Blood Pressure 133/75 07/27/25 19:47 Pulse Oximetry 95 07/27/25 19:47 Oxygen Delivery Method Room Air 07/27/25 19:47 General: Slightly disheveled, abrasion to the right cheek HEENT: Moist mucous membranes, normal sclera with reactive pupils, Neck: No JVD, no midline cervical spine tenderness Respiratory: Lungs are clear to auscultation, no wheezing no rales no rhonchi. Full and symmetrical air movement Cardiac: Regular rate and rhythm,3/6 murmur Abdomen: Soft, nontender, no rebound or guarding, no flank pain Skin: Warm and dry, no rashes Neurologic: Moving all extremities, retrograde amnesia with perseveration Extremities: No trauma, bilateral lower extremity edema +1 nonpitting Psych: Cooperative, fluent speech, perseveration <Semaj Gunn DO - Last Filed: 07/28/25 01:19> Initial Vital Signs Initial Vital Signs: Vital Signs Temperature 98.6 F 07/27/25 19:47 Pulse Rate 116 H 07/27/25 19:47 Respiratory Rate 18 07/27/25 19:47 Blood Pressure 133/75 07/27/25 19:47 Pulse Oximetry 95 07/27/25 19:47 Oxygen Delivery Method Room Air 07/27/25 19:47 Course <Beth Mcgowan MD - Last Filed: 07/30/25 14:57> Orders Ordered: Discontinued Medications Heparin Sodium (Porcine) (Heparin 5,000 Unit/Ml Vial) 5,000 unit 60 unit/kg (5000 unit) IV NOW ONE Stop: 07/27/25 22:46 Last Admin: 07/27/25 23:11 Dose: 5,000 unit Documented By: SBF Sodium Chloride (Normal Saline 0.9%) 2,397 mls @ 799 mls/hr 30 ml/kg infuse over 3 hr (2397 ml) IV NOW ONE Stop: 07/28/25 00:06 Last Admin: 07/27/25 21:37 Dose: 799 mls/hr Documented By: SBF Vancomycin HCl (Vancomycin) 1,000 mg in 200 mls @ 200 mls/hr IV NOW ONE Stop: 07/27/25 22:06 Last Infusion: 07/27/25 22:37 Dose: Infused Documented By: Admin: 07/27/25 21:37 Dose: 200 mls/hr Documented By: CHLOÉ Ceftriaxone Sodium 2,000 mg/ (Sodium Chloride) 100 mls @ 200 mls/hr IV NOW ONE Stop: 07/27/25 21:08 Last Infusion: 07/27/25 22:06 Dose: Infused Documented By: Admin: 07/27/25 21:36 Dose: 200 mls/hr Documented By: CHLOÉ Heparin Sodium/Dextrose (Heparin Drip) 25,000 unit in 500 mls @ 19.595 mls/hr IV CONT MINA; Protocol Last Admin: 07/27/25 23:28 Dose: 11.51 units/kg/hr, 18.8 mls/hr Documented By: CHLOÉ Co-signed By: AIDAN Phenobarbital (Phenobarbital 65 Mg/Ml Vial) 260 mg IV NOW ONE Stop: 07/28/25 02:13 Last Admin: 07/28/25 02:32 Dose: 260 mg Documented By: CHLOÉ Vital Signs Vital signs: Vital Signs - 8 hr 07/27/25 19:47 07/27/25 20:02 07/27/25 20:30 Temperature 98.6 F Pulse Rate 116 H 110 H 108 H Respiratory Rate 18 30 H 28 H Blood Pressure 133/75 Pulse Oximetry 95 93 94 Oxygen Delivery Method Room Air 07/27/25 20:30 07/27/25 21:00 07/27/25 21:00 Temperature Pulse Rate 104 H Respiratory Rate 30 H Blood Pressure 138/69 134/73 Pulse Oximetry 93 Oxygen Delivery Method 07/27/25 21:30 07/27/25 21:44 07/27/25 21:44 Temperature Pulse Rate 104 H 113 H Respiratory Rate 26 H Blood Pressure 140/73 Pulse Oximetry 94 95 Oxygen Delivery Method 07/27/25 22:00 07/27/25 22:01 07/27/25 22:01 Temperature Pulse Rate 100 H 100 H Respiratory Rate 42 H 28 H Blood Pressure 168/76 H Pulse Oximetry 95 95 Oxygen Delivery Method 07/27/25 22:30 07/27/25 22:30 07/27/25 23:00 Temperature Pulse Rate 94 H 97 H Respiratory Rate 21 23 Blood Pressure 173/81 H Pulse Oximetry 96 94 Oxygen Delivery Method 07/27/25 23:00 07/27/25 23:30 07/27/25 23:30 Temperature Pulse Rate 98 H Respiratory Rate 25 H Blood Pressure 165/77 H 153/68 H Pulse Oximetry 93 Oxygen Delivery Method 07/28/25 00:00 07/28/25 00:00 Temperature Pulse Rate 97 H Respiratory Rate 31 H Blood Pressure 163/72 H Pulse Oximetry 88 L Oxygen Delivery Method <Semaj Gunn, DO - Last Filed: 07/28/25 01:19> Orders Ordered: Discontinued Medications Heparin Sodium (Porcine) (Heparin 5,000 Unit/Ml Vial) 5,000 unit 60 unit/kg (5000 unit) IV NOW ONE Stop: 07/27/25 22:46 Last Admin: 07/27/25 23:11 Dose: 5,000 unit Documented By: CHLOÉ Sodium Chloride (Normal Saline 0.9%) 2,397 mls @ 799 mls/hr 30 ml/kg infuse over 3 hr (2397 ml) IV NOW ONE Stop: 07/28/25 00:06 Last Admin: 07/27/25 21:37 Dose: 799 mls/hr Documented By: CHLOÉ Vancomycin HCl (Vancomycin) 1,000 mg in 200 mls @ 200 mls/hr IV NOW ONE Stop: 07/27/25 22:06 Last Infusion: 07/27/25 22:37 Dose: Infused Documented By: Admin: 07/27/25 21:37 Dose: 200 mls/hr Documented By: CHLOÉ Ceftriaxone Sodium 2,000 mg/ (Sodium Chloride) 100 mls @ 200 mls/hr IV NOW ONE Stop: 07/27/25 21:08 Last Infusion: 07/27/25 22:06 Dose: Infused Documented By: Admin: 07/27/25 21:36 Dose: 200 mls/hr Documented By: CHLOÉ Heparin Sodium/Dextrose (Heparin Drip) 25,000 unit in 500 mls @ 19.595 mls/hr IV CONT MINA; Protocol Last Admin: 07/27/25 23:28 Dose: 11.51 units/kg/hr, 18.8 mls/hr Documented By: CHLOÉ Co-signed By: AIDAN Phenobarbital (Phenobarbital 65 Mg/Ml Vial) 260 mg IV NOW ONE Stop: 07/28/25 02:13 Last Admin: 07/28/25 02:32 Dose: 260 mg Documented By: SBF Vital Signs Vital signs: Vital Signs - 8 hr 07/27/25 19:47 07/27/25 20:02 07/27/25 20:30 Temperature 98.6 F Pulse Rate 116 H 110 H 108 H Respiratory Rate 18 30 H 28 H Blood Pressure 133/75 Pulse Oximetry 95 93 94 Oxygen Delivery Method Room Air 07/27/25 20:30 07/27/25 21:00 07/27/25 21:00 Temperature Pulse Rate 104 H Respiratory Rate 30 H Blood Pressure 138/69 134/73 Pulse Oximetry 93 Oxygen Delivery Method 07/27/25 21:30 07/27/25 21:44 07/27/25 21:44 Temperature Pulse Rate 104 H 113 H Respiratory Rate 26 H Blood Pressure 140/73 Pulse Oximetry 94 95 Oxygen Delivery Method 07/27/25 22:00 07/27/25 22:01 07/27/25 22:01 Temperature Pulse Rate 100 H 100 H Respiratory Rate 42 H 28 H Blood Pressure 168/76 H Pulse Oximetry 95 95 Oxygen Delivery Method 07/27/25 22:30 07/27/25 22:30 07/27/25 23:00 Temperature Pulse Rate 94 H 97 H Respiratory Rate 21 23 Blood Pressure 173/81 H Pulse Oximetry 96 94 Oxygen Delivery Method 07/27/25 23:00 07/27/25 23:30 07/27/25 23:30 Temperature Pulse Rate 98 H Respiratory Rate 25 H Blood Pressure 165/77 H 153/68 H Pulse Oximetry 93 Oxygen Delivery Method 07/28/25 00:00 07/28/25 00:00 Temperature Pulse Rate 97 H Respiratory Rate 31 H Blood Pressure 163/72 H Pulse Oximetry 88 L Oxygen Delivery Method Medical Decision Making <Beth Mcgowan MD - Last Filed: 07/30/25 14:57> Lab Data 07/27/25 19:35 07/27/25 19:35 Labs: Lab Results 07/27/25 07/27/25 07/27/25 Range/Units 19:35 20:52 21:30 WBC 10.5 (4.5-11.0) X10^3/uL RBC 3.92 L (4.5-5.9) X10^6/uL Hgb 13.0 L (13.5-17.5) g/dL Hct 38.2 L (41-53) % MCV 97.3 (80-100) fL MCH 33.1 (26-34) PG MCHC 34.0 (30-36) % RDW 16.7 H (11.6-14.8) % Plt Count 241 (150-400) X10^3/uL Neut % (Auto) 73.6 (50-75) % Lymph % (Auto) 20.9 L (25-40) % [place] % (Auto) 4.6 (3-14) % Eos % (Auto) 0.4 L (2-4) % Baso % (Auto) 0.5 (0-2) % Neut # (Auto) 7700 H (0997-0050) /uL Lymph # (Auto) 2200 (0134-0761) /uL [place] # (Auto) 500 (0-900) /uL Eos # (Auto) 0 (0-450) /uL Baso # (Auto) 100 (0-100) /uL Sodium 142 (137-145) mmol/L Potassium 4.8 (3.4-5.1) mmol/L Chloride 106 (98-107) mmol/L Carbon Dioxide 13 L (22-32) mmol/L BUN 26 H (9-20) mg/dL Creatinine 2.15 H (0.66-1.25) mg/dL Estimated GFR 32 L (>60) mL/min BUN/Creatinine Ratio 12.1 (6-22) Glucose 134 H (70-99) mg/dL POC Whole Bld Glucose (70-99) mg/dL Lactate 6.5 H* (0.7-2.1) mmol/L Calcium 9.1 (8.4-10.2) mg/dL Total Bilirubin 0.9 (0.2-1.3) mg/dL AST 66 H (17-59) IU/L ALT 25 (<50) IU/L Alkaline Phosphatase 132 H (38-126) U/L Ammonia < 9 L (9-30) umol/L Total Creatine Kinase 164 (55-170) U/L Troponin I 0.083 H (0.01-0.034) ng/mL NT-Pro-B Natriuret Pep (<125) pg/mL Total Protein 8.1 (6.3-8.2) g/dL Albumin 4.7 (3.5-5.0) g/dL Globulin 3.4 (1.7-4.1) g/dL Albumin/Globulin Ratio 1.4 (1.0-2.8) Procalcitonin 0.105 (<0.5) ng/mL Urine Color Yellow Urine Appearance Clear Urine pH 5.5 (4.5-8.0) Ur Specific [place] 1.025 (1.000-1.035) Urine Protein 3+ H (Negative) Urine Glucose (UA) Negative (Negative) g/dL Urine Ketones Trace H (NEGATIVE) Urine Occult Blood 1+ H (Negative) Urine Nitrate Negative (Negative) Urine Bilirubin Negative (NEGATIVE) Urine Urobilinogen 0.2 (0.2) E.U./dL Ur Leukocyte Esterase Negative (NEGATIVE) Urine RBC 0-1/hpf (0-5/HPF) Urine WBC 0-1/hpf (0-5/HPF) Ur Squamous Epith Cells 1-5 /hpf (0-5/HPF) Amorphous Sediment 2+ Urine Bacteria Few (2-10) H (None) Hyaline Casts 5-10/lpf (None) Ur Culture Indicated? Cult not indicated Vol Urine Centrifuged 10ml (spun) U Opiates 300ng/mL cut Negative (Negative) Ur Oxycodone Screen Negative (Negative) Urine Methadone Screen Negative (Negative) Ur Barbiturates Screen Negative (Negative) U Tricyclic Antidepress Negative (Negative) Ur Phencyclidine Scrn Negative (Negative) Ur Amphetamines Screen Negative (Negative) U Methamphetamines Scrn Negative (Negative) Ur MDMA Scrn (Ecstasy) Negative (Negative) U Benzodiazepines Scrn Negative (Negative) Urine Cocaine Screen Negative (Negative) U Marijuana (THC) Screen Positive H (Negative) Urine Specific [place] (Normal) Ethyl Alcohol 169 H (<10) mg/dL Ur Creatinine (Normal) Chlamy pneumoniae PCR (Not Detect) Adenovirus (PCR) (Not Detect) B. pertussis DNA (PCR) (Not Detect) B.parapertussis DNA PCR (Not Detecte) Coronavirus OC43 (PCR) (Not Detect) Coronavirus HKU1 (PCR) (Not Detect) Coronavirus 229E (PCR) (Not Detect) SARS-CoV-2 (PCR) (Not Detecte) Coronavirus NL63 (PCR) (Not Detect) Human Metapneumovir PCR (Not Detect) Influenza Type A (PCR) (Not Detect) Influenza Type B (PCR) (Not Detect) M. pneumoniae (PCR) (Not Detect) Parainfluenza 1 (PCR) (Not Detect) Parainfluenza 2 (PCR) (Not Detect) Parainfluenza 3 (PCR) (Not Detect) Parainfluenza 4 (PCR) (Not Detect) RSV (PCR) (Not Detect) Entero/Rhino (PCR) (Not Detect) 07/27/25 07/27/25 07/27/25 Range/Units 21:30 21:35 22:00 WBC (4.5-11.0) X10^3/uL RBC (4.5-5.9) X10^6/uL Hgb (13.5-17.5) g/dL Hct (41-53) % MCV (80-100) fL MCH (26-34) PG MCHC (30-36) % RDW (11.6-14.8) % Plt Count (150-400) X10^3/uL Neut % (Auto) (50-75) % Lymph % (Auto) (25-40) % [place] % (Auto) (3-14) % Eos % (Auto) (2-4) % Baso % (Auto) (0-2) % Neut # (Auto) (8061-4100) /uL Lymph # (Auto) (2966-8129) /uL [place] # (Auto) (0-900) /uL Eos # (Auto) (0-450) /uL Baso # (Auto) (0-100) /uL Sodium (137-145) mmol/L Potassium (3.4-5.1) mmol/L Chloride (98-107) mmol/L Carbon Dioxide (22-32) mmol/L BUN (9-20) mg/dL Creatinine (0.66-1.25) mg/dL Estimated GFR (>60) mL/min BUN/Creatinine Ratio (6-22) Glucose (70-99) mg/dL POC Whole Bld Glucose (70-99) mg/dL Lactate (0.7-2.1) mmol/L Calcium (8.4-10.2) mg/dL Total Bilirubin (0.2-1.3) mg/dL AST (17-59) IU/L ALT (<50) IU/L Alkaline Phosphatase (38-126) U/L Ammonia (9-30) umol/L Total Creatine Kinase 384 H D (55-170) U/L Troponin I 0.104 H (0.01-0.034) ng/mL NT-Pro-B Natriuret Pep 3060 H (<125) pg/mL Total Protein (6.3-8.2) g/dL Albumin (3.5-5.0) g/dL Globulin (1.7-4.1) g/dL Albumin/Globulin Ratio (1.0-2.8) Procalcitonin (<0.5) ng/mL Urine Color Urine Appearance Urine pH Normal (4.5-8.0) Ur Specific [place] (1.000-1.035) Urine Protein (Negative) Urine Glucose (UA) (Negative) g/dL Urine Ketones (NEGATIVE) Urine Occult Blood (Negative) Urine Nitrate (Negative) Urine Bilirubin (NEGATIVE) Urine Urobilinogen (0.2) E.U./dL Ur Leukocyte Esterase (NEGATIVE) Urine RBC (0-5/HPF) Urine WBC (0-5/HPF) Ur Squamous Epith Cells (0-5/HPF) Amorphous Sediment Urine Bacteria (None) Hyaline Casts (None) Ur Culture Indicated? Vol Urine Centrifuged U Opiates 300ng/mL cut (Negative) Ur Oxycodone Screen (Negative) Urine Methadone Screen (Negative) Ur Barbiturates Screen (Negative) U Tricyclic Antidepress (Negative) Ur Phencyclidine Scrn (Negative) Ur Amphetamines Screen (Negative) U Methamphetamines Scrn (Negative) Ur MDMA Scrn (Ecstasy) (Negative) U Benzodiazepines Scrn (Negative) Urine Cocaine Screen (Negative) U Marijuana (THC) Screen (Negative) Urine Specific [place] Normal (Normal) Ethyl Alcohol (<10) mg/dL Ur Creatinine Normal (Normal) Chlamy pneumoniae PCR Not detected (Not Detect) Adenovirus (PCR) Not detected (Not Detect) B. pertussis DNA (PCR) Not detected (Not Detect) B.parapertussis DNA PCR Not detected (Not Detecte) Coronavirus OC43 (PCR) Not detected (Not Detect) Coronavirus HKU1 (PCR) Not detected (Not Detect) Coronavirus 229E (PCR) Not detected (Not Detect) SARS-CoV-2 (PCR) Not detected (Not Detecte) Coronavirus NL63 (PCR) Not detected (Not Detect) Human Metapneumovir PCR Not detected (Not Detect) Influenza Type A (PCR) Not detected (Not Detect) Influenza Type B (PCR) Not detected (Not Detect) M. pneumoniae (PCR) Not detected (Not Detect) Parainfluenza 1 (PCR) Not detected (Not Detect) Parainfluenza 2 (PCR) Not detected (Not Detect) Parainfluenza 3 (PCR) Not detected (Not Detect) Parainfluenza 4 (PCR) Not detected (Not Detect) RSV (PCR) Not detected (Not Detect) Entero/Rhino (PCR) Not detected (Not Detect) 07/27/25 07/27/25 07/28/25 Range/Units 22:49 22:50 01:05 WBC (4.5-11.0) X10^3/uL RBC (4.5-5.9) X10^6/uL Hgb (13.5-17.5) g/dL Hct (41-53) % MCV (80-100) fL MCH (26-34) PG MCHC (30-36) % RDW (11.6-14.8) % Plt Count (150-400) X10^3/uL Neut % (Auto) (50-75) % Lymph % (Auto) (25-40) % [place] % (Auto) (3-14) % Eos % (Auto) (2-4) % Baso % (Auto) (0-2) % Neut # (Auto) (0637-6580) /uL Lymph # (Auto) (5379-8368) /uL [place] # (Auto) (0-900) /uL Eos # (Auto) (0-450) /uL Baso # (Auto) (0-100) /uL Sodium (137-145) mmol/L Potassium (3.4-5.1) mmol/L Chloride (98-107) mmol/L Carbon Dioxide (22-32) mmol/L BUN (9-20) mg/dL Creatinine (0.66-1.25) mg/dL Estimated GFR (>60) mL/min BUN/Creatinine Ratio (6-22) Glucose (70-99) mg/dL POC Whole Bld Glucose 140 H (70-99) mg/dL Lactate 4.7 H* 4.7 H* (0.7-2.1) mmol/L Calcium (8.4-10.2) mg/dL Total Bilirubin (0.2-1.3) mg/dL AST (17-59) IU/L ALT (<50) IU/L Alkaline Phosphatase (38-126) U/L Ammonia (9-30) umol/L Total Creatine Kinase (55-170) U/L Troponin I (0.01-0.034) ng/mL NT-Pro-B Natriuret Pep (<125) pg/mL Total Protein (6.3-8.2) g/dL Albumin (3.5-5.0) g/dL Globulin (1.7-4.1) g/dL Albumin/Globulin Ratio (1.0-2.8) Procalcitonin (<0.5) ng/mL Urine Color Urine Appearance Urine pH (4.5-8.0) Ur Specific [place] (1.000-1.035) Urine Protein (Negative) Urine Glucose (UA) (Negative) g/dL Urine Ketones (NEGATIVE) Urine Occult Blood (Negative) Urine Nitrate (Negative) Urine Bilirubin (NEGATIVE) Urine Urobilinogen (0.2) E.U./dL Ur Leukocyte Esterase (NEGATIVE) Urine RBC (0-5/HPF) Urine WBC (0-5/HPF) Ur Squamous Epith Cells (0-5/HPF) Amorphous Sediment Urine Bacteria (None) Hyaline Casts (None) Ur Culture Indicated? Vol Urine Centrifuged U Opiates 300ng/mL cut (Negative) Ur Oxycodone Screen (Negative) Urine Methadone Screen (Negative) Ur Barbiturates Screen (Negative) U Tricyclic Antidepress (Negative) Ur Phencyclidine Scrn (Negative) Ur Amphetamines Screen (Negative) U Methamphetamines Scrn (Negative) Ur MDMA Scrn (Ecstasy) (Negative) U Benzodiazepines Scrn (Negative) Urine Cocaine Screen (Negative) U Marijuana (THC) Screen (Negative) Urine Specific [place] (Normal) Ethyl Alcohol (<10) mg/dL Ur Creatinine (Normal) Chlamy pneumoniae PCR (Not Detect) Adenovirus (PCR) (Not Detect) B. pertussis DNA (PCR) (Not Detect) B.parapertussis DNA PCR (Not Detecte) Coronavirus OC43 (PCR) (Not Detect) Coronavirus HKU1 (PCR) (Not Detect) Coronavirus 229E (PCR) (Not Detect) SARS-CoV-2 (PCR) (Not Detecte) Coronavirus NL63 (PCR) (Not Detect) Human Metapneumovir PCR (Not Detect) Influenza Type A (PCR) (Not Detect) Influenza Type B (PCR) (Not Detect) M. pneumoniae (PCR) (Not Detect) Parainfluenza 1 (PCR) (Not Detect) Parainfluenza 2 (PCR) (Not Detect) Parainfluenza 3 (PCR) (Not Detect) Parainfluenza 4 (PCR) (Not Detect) RSV (PCR) (Not Detect) Entero/Rhino (PCR) (Not Detect) MDM Narrative Medical decision making narrative: CC: Found down on his porch Complicating co-morbidities: Unknown details run events of today, diabetes, hypertension, hyperlipidemia Medical records reviewed: Last cardiology visit was August of 2021. That note indicates that he had an NSTEMI in December of 2026 with treatment at [facility] and echocardiogram showing preserved LV function. In December of 2017 he was admitted to [facility] because of elevated troponin, dehydration with acute renal insufficiency. Data collected from: patient Differential considered: Cardiac syncope, orthostatic syncope, electrolyte abnormality, stroke, intracranial hemorrhage, concussion Exam documented above, pertinent findings include: Minor abrasion to the left cheek remainder of exam is actually relatively benign. He was incontinent of urine with his fall. Lungs are essentially clear, belly is soft has 1+ bilateral lower extremity edema. Retrograde amnesia with perseverating questions but otherwise normal neurologic exam Lab Test results independently reviewed as above. Pertinent findings: CBC shows slightly elevated hemoglobin likely due to hemoconcentration. No leukocytosis Chemistries show acute kidney injury with creatinine at 2.15. AST minimally elevated at 66, bili normal, ALT normal, alk-phos slightly elevated Lactic acid is elevated at 6.5 Troponin retrospectively added to initial blood work and initial troponin was slightly positive at 0.83. On repeat is 0.104 BNP is 3060 Procalcitonin is not elevated Independently reviewed EKG: Sinus tachycardia, rate of 108 no significant ischemic changes Imaging studies independently reviewed: Chest x-ray is unremarkable CT scan of the head shows no intracranial hemorrhage CT scan of the spine shows no loosened hardware and no new fractures Treatments: Re-evaluations: 9:00 p.m. When lactic acid returns elevated workup is expanded to include infectious etiology. Patient is not hypotensive, afebrile, not requiring oxygen, slightly tachycardic Discussion: 74-year-old gentleman found passed out on his front porch, the neighbor called 911. He has no recollection of events. No obvious infectious source identified, lactic acid is elevated unclear this is sepsis or simply dehydration. With concern for sepsis he was given fluids as well as ceftriaxone and vancomycin. Workup still does not suggest an infectious etiology with absence of pneumonia, no abdominal pain, urine does not suggest urinary tract infection. He does not still have a headache no nuchal rigidity, I do not suspect meningitis Acute kidney injury with creatinine at 2.5. Remainder of electrolytes are unremarkable. Initial troponin elevated repeat increased elevated. No chest pain. No acute ST-elevation on EKG. Heparin will be started after normal head CT is confirmed Head and neck CT scans done for unwitnessed fall did not show evidence of mass, stroke, intracranial hemorrhage or new cervical spine injury. Positive concussion based on retrograde amnesia and continued perseverating questions At a time care is transferred to , transfer discussions indicate no beds at [facility], currently on wait list at [facility] in [address], still waiting to contact Corine izaguirre and after the [facility] <Semaj Gunn, DO - Last Filed: 07/28/25 01:19> Lab Data Labs: Lab Results 07/27/25 07/27/25 07/27/25 Range/Units 19:35 20:52 21:30 WBC 10.5 (4.5-11.0) X10^3/uL RBC 3.92 L (4.5-5.9) X10^6/uL Hgb 13.0 L (13.5-17.5) g/dL Hct 38.2 L (41-53) % MCV 97.3 (80-100) fL MCH 33.1 (26-34) PG MCHC 34.0 (30-36) % RDW 16.7 H (11.6-14.8) % Plt Count 241 (150-400) X10^3/uL Neut % (Auto) 73.6 (50-75) % Lymph % (Auto) 20.9 L (25-40) % [place] % (Auto) 4.6 (3-14) % Eos % (Auto) 0.4 L (2-4) % Baso % (Auto) 0.5 (0-2) % Neut # (Auto) 7700 H (1707-9843) /uL Lymph # (Auto) 2200 (0987-8988) /uL [place] # (Auto) 500 (0-900) /uL Eos # (Auto) 0 (0-450) /uL Baso # (Auto) 100 (0-100) /uL Sodium 142 (137-145) mmol/L Potassium 4.8 (3.4-5.1) mmol/L Chloride 106 (98-107) mmol/L Carbon Dioxide 13 L (22-32) mmol/L BUN 26 H (9-20) mg/dL Creatinine 2.15 H (0.66-1.25) mg/dL Estimated GFR 32 L (>60) mL/min BUN/Creatinine Ratio 12.1 (6-22) Glucose 134 H (70-99) mg/dL POC Whole Bld Glucose (70-99) mg/dL Lactate 6.5 H* (0.7-2.1) mmol/L Calcium 9.1 (8.4-10.2) mg/dL Total Bilirubin 0.9 (0.2-1.3) mg/dL AST 66 H (17-59) IU/L ALT 25 (<50) IU/L Alkaline Phosphatase 132 H (38-126) U/L Ammonia < 9 L (9-30) umol/L Total Creatine Kinase 164 (55-170) U/L Troponin I 0.083 H (0.01-0.034) ng/mL NT-Pro-B Natriuret Pep (<125) pg/mL Total Protein 8.1 (6.3-8.2) g/dL Albumin 4.7 (3.5-5.0) g/dL Globulin 3.4 (1.7-4.1) g/dL Albumin/Globulin Ratio 1.4 (1.0-2.8) Procalcitonin 0.105 (<0.5) ng/mL Urine Color Yellow Urine Appearance Clear Urine pH 5.5 (4.5-8.0) Ur Specific [place] 1.025 (1.000-1.035) Urine Protein 3+ H (Negative) Urine Glucose (UA) Negative (Negative) g/dL Urine Ketones Trace H (NEGATIVE) Urine Occult Blood 1+ H (Negative) Urine Nitrate Negative (Negative) Urine Bilirubin Negative (NEGATIVE) Urine Urobilinogen 0.2 (0.2) E.U./dL Ur Leukocyte Esterase Negative (NEGATIVE) Urine RBC 0-1/hpf (0-5/HPF) Urine WBC 0-1/hpf (0-5/HPF) Ur Squamous Epith Cells 1-5 /hpf (0-5/HPF) Amorphous Sediment 2+ Urine Bacteria Few (2-10) H (None) Hyaline Casts 5-10/lpf (None) Ur Culture Indicated? Cult not indicated Vol Urine Centrifuged 10ml (spun) U Opiates 300ng/mL cut Negative (Negative) Ur Oxycodone Screen Negative (Negative) Urine Methadone Screen Negative (Negative) Ur Barbiturates Screen Negative (Negative) U Tricyclic Antidepress Negative (Negative) Ur Phencyclidine Scrn Negative (Negative) Ur Amphetamines Screen Negative (Negative) U Methamphetamines Scrn Negative (Negative) Ur MDMA Scrn (Ecstasy) Negative (Negative) U Benzodiazepines Scrn Negative (Negative) Urine Cocaine Screen Negative (Negative) U Marijuana (THC) Screen Positive H (Negative) Urine Specific [place] (Normal) Ethyl Alcohol 169 H (<10) mg/dL Ur Creatinine (Normal) Chlamy pneumoniae PCR (Not Detect) Adenovirus (PCR) (Not Detect) B. pertussis DNA (PCR) (Not Detect) B.parapertussis DNA PCR (Not Detecte) Coronavirus OC43 (PCR) (Not Detect) Coronavirus HKU1 (PCR) (Not Detect) Coronavirus 229E (PCR) (Not Detect) SARS-CoV-2 (PCR) (Not Detecte) Coronavirus NL63 (PCR) (Not Detect) Human Metapneumovir PCR (Not Detect) Influenza Type A (PCR) (Not Detect) Influenza Type B (PCR) (Not Detect) M. pneumoniae (PCR) (Not Detect) Parainfluenza 1 (PCR) (Not Detect) Parainfluenza 2 (PCR) (Not Detect) Parainfluenza 3 (PCR) (Not Detect) Parainfluenza 4 (PCR) (Not Detect) RSV (PCR) (Not Detect) Entero/Rhino (PCR) (Not Detect) 07/27/25 07/27/25 07/27/25 Range/Units 21:30 21:35 22:00 WBC (4.5-11.0) X10^3/uL RBC (4.5-5.9) X10^6/uL Hgb (13.5-17.5) g/dL Hct (41-53) % MCV (80-100) fL MCH (26-34) PG MCHC (30-36) % RDW (11.6-14.8) % Plt Count (150-400) X10^3/uL Neut % (Auto) (50-75) % Lymph % (Auto) (25-40) % [place] % (Auto) (3-14) % Eos % (Auto) (2-4) % Baso % (Auto) (0-2) % Neut # (Auto) (8725-7536) /uL Lymph # (Auto) (4154-5107) /uL [place] # (Auto) (0-900) /uL Eos # (Auto) (0-450) /uL Baso # (Auto) (0-100) /uL Sodium (137-145) mmol/L Potassium (3.4-5.1) mmol/L Chloride (98-107) mmol/L Carbon Dioxide (22-32) mmol/L BUN (9-20) mg/dL Creatinine (0.66-1.25) mg/dL Estimated GFR (>60) mL/min BUN/Creatinine Ratio (6-22) Glucose (70-99) mg/dL POC Whole Bld Glucose (70-99) mg/dL Lactate (0.7-2.1) mmol/L Calcium (8.4-10.2) mg/dL Total Bilirubin (0.2-1.3) mg/dL AST (17-59) IU/L ALT (<50) IU/L Alkaline Phosphatase (38-126) U/L Ammonia (9-30) umol/L Total Creatine Kinase 384 H D (55-170) U/L Troponin I 0.104 H (0.01-0.034) ng/mL NT-Pro-B Natriuret Pep 3060 H (<125) pg/mL Total Protein (6.3-8.2) g/dL Albumin (3.5-5.0) g/dL Globulin (1.7-4.1) g/dL Albumin/Globulin Ratio (1.0-2.8) Procalcitonin (<0.5) ng/mL Urine Color Urine Appearance Urine pH Normal (4.5-8.0) Ur Specific [place] (1.000-1.035) Urine Protein (Negative) Urine Glucose (UA) (Negative) g/dL Urine Ketones (NEGATIVE) Urine Occult Blood (Negative) Urine Nitrate (Negative) Urine Bilirubin (NEGATIVE) Urine Urobilinogen (0.2) E.U./dL Ur Leukocyte Esterase (NEGATIVE) Urine RBC (0-5/HPF) Urine WBC (0-5/HPF) Ur Squamous Epith Cells (0-5/HPF) Amorphous Sediment Urine Bacteria (None) Hyaline Casts (None) Ur Culture Indicated? Vol Urine Centrifuged U Opiates 300ng/mL cut (Negative) Ur Oxycodone Screen (Negative) Urine Methadone Screen (Negative) Ur Barbiturates Screen (Negative) U Tricyclic Antidepress (Negative) Ur Phencyclidine Scrn (Negative) Ur Amphetamines Screen (Negative) U Methamphetamines Scrn (Negative) Ur MDMA Scrn (Ecstasy) (Negative) U Benzodiazepines Scrn (Negative) Urine Cocaine Screen (Negative) U Marijuana (THC) Screen (Negative) Urine Specific [place] Normal (Normal) Ethyl Alcohol (<10) mg/dL Ur Creatinine Normal (Normal) Chlamy pneumoniae PCR Not detected (Not Detect) Adenovirus (PCR) Not detected (Not Detect) B. pertussis DNA (PCR) Not detected (Not Detect) B.parapertussis DNA PCR Not detected (Not Detecte) Coronavirus OC43 (PCR) Not detected (Not Detect) Coronavirus HKU1 (PCR) Not detected (Not Detect) Coronavirus 229E (PCR) Not detected (Not Detect) SARS-CoV-2 (PCR) Not detected (Not Detecte) Coronavirus NL63 (PCR) Not detected (Not Detect) Human Metapneumovir PCR Not detected (Not Detect) Influenza Type A (PCR) Not detected (Not Detect) Influenza Type B (PCR) Not detected (Not Detect) M. pneumoniae (PCR) Not detected (Not Detect) Parainfluenza 1 (PCR) Not detected (Not Detect) Parainfluenza 2 (PCR) Not detected (Not Detect) Parainfluenza 3 (PCR) Not detected (Not Detect) Parainfluenza 4 (PCR) Not detected (Not Detect) RSV (PCR) Not detected (Not Detect) Entero/Rhino (PCR) Not detected (Not Detect) 07/27/25 07/27/25 07/28/25 Range/Units 22:49 22:50 01:05 WBC (4.5-11.0) X10^3/uL RBC (4.5-5.9) X10^6/uL Hgb (13.5-17.5) g/dL Hct (41-53) % MCV (80-100) fL MCH (26-34) PG MCHC (30-36) % RDW (11.6-14.8) % Plt Count (150-400) X10^3/uL Neut % (Auto) (50-75) % Lymph % (Auto) (25-40) % [place] % (Auto) (3-14) % Eos % (Auto) (2-4) % Baso % (Auto) (0-2) % Neut # (Auto) (3228-0721) /uL Lymph # (Auto) (4264-7988) /uL [place] # (Auto) (0-900) /uL Eos # (Auto) (0-450) /uL Baso # (Auto) (0-100) /uL Sodium (137-145) mmol/L Potassium (3.4-5.1) mmol/L Chloride (98-107) mmol/L Carbon Dioxide (22-32) mmol/L BUN (9-20) mg/dL Creatinine (0.66-1.25) mg/dL Estimated GFR (>60) mL/min BUN/Creatinine Ratio (6-22) Glucose (70-99) mg/dL POC Whole Bld Glucose 140 H (70-99) mg/dL Lactate 4.7 H* 4.7 H* (0.7-2.1) mmol/L Calcium (8.4-10.2) mg/dL Total Bilirubin (0.2-1.3) mg/dL AST (17-59) IU/L ALT (<50) IU/L Alkaline Phosphatase (38-126) U/L Ammonia (9-30) umol/L Total Creatine Kinase (55-170) U/L Troponin I (0.01-0.034) ng/mL NT-Pro-B Natriuret Pep (<125) pg/mL Total Protein (6.3-8.2) g/dL Albumin (3.5-5.0) g/dL Globulin (1.7-4.1) g/dL Albumin/Globulin Ratio (1.0-2.8) Procalcitonin (<0.5) ng/mL Urine Color Urine Appearance Urine pH (4.5-8.0) Ur Specific [place] (1.000-1.035) Urine Protein (Negative) Urine Glucose (UA) (Negative) g/dL Urine Ketones (NEGATIVE) Urine Occult Blood (Negative) Urine Nitrate (Negative) Urine Bilirubin (NEGATIVE) Urine Urobilinogen (0.2) E.U./dL Ur Leukocyte Esterase (NEGATIVE) Urine RBC (0-5/HPF) Urine WBC (0-5/HPF) Ur Squamous Epith Cells (0-5/HPF) Amorphous Sediment Urine Bacteria (None) Hyaline Casts (None) Ur Culture Indicated? Vol Urine Centrifuged U Opiates 300ng/mL cut (Negative) Ur Oxycodone Screen (Negative) Urine Methadone Screen (Negative) Ur Barbiturates Screen (Negative) U Tricyclic Antidepress (Negative) Ur Phencyclidine Scrn (Negative) Ur Amphetamines Screen (Negative) U Methamphetamines Scrn (Negative) Ur MDMA Scrn (Ecstasy) (Negative) U Benzodiazepines Scrn (Negative) Urine Cocaine Screen (Negative) U Marijuana (THC) Screen (Negative) Urine Specific [place] (Normal) Ethyl Alcohol (<10) mg/dL Ur Creatinine (Normal) Chlamy pneumoniae PCR (Not Detect) Adenovirus (PCR) (Not Detect) B. pertussis DNA (PCR) (Not Detect) B.parapertussis DNA PCR (Not Detecte) Coronavirus OC43 (PCR) (Not Detect) Coronavirus HKU1 (PCR) (Not Detect) Coronavirus 229E (PCR) (Not Detect) SARS-CoV-2 (PCR) (Not Detecte) Coronavirus NL63 (PCR) (Not Detect) Human Metapneumovir PCR (Not Detect) Influenza Type A (PCR) (Not Detect) Influenza Type B (PCR) (Not Detect) M. pneumoniae (PCR) (Not Detect) Parainfluenza 1 (PCR) (Not Detect) Parainfluenza 2 (PCR) (Not Detect) Parainfluenza 3 (PCR) (Not Detect) Parainfluenza 4 (PCR) (Not Detect) RSV (PCR) (Not Detect) Entero/Rhino (PCR) (Not Detect) MDM Narrative Medical decision making narrative: CC: Found down on his porch Complicating co-morbidities: Unknown details run events of today, diabetes, hypertension, hyperlipidemia Medical records reviewed: Last cardiology visit was August of 2021. That note indicates that he had an NSTEMI in December of 2026 with treatment at [facility] and echocardiogram showing preserved LV function. In December of 2017 he was admitted to [facility] because of elevated troponin, dehydration with acute renal insufficiency. Data collected from: patient Differential considered: Cardiac syncope, orthostatic syncope, electrolyte abnormality, stroke, intracranial hemorrhage, concussion Exam documented above, pertinent findings include: Minor abrasion to the left cheek remainder of exam is actually relatively benign. He was incontinent of urine with his fall. Lungs are essentially clear, belly is soft has 1+ bilateral lower extremity edema. Retrograde amnesia with perseverating questions but otherwise normal neurologic exam Lab Test results independently reviewed as above. Pertinent findings: CBC shows slightly elevated hemoglobin likely due to hemoconcentration. No leukocytosis Chemistries show acute kidney injury with creatinine at 2.15. AST minimally elevated at 66, bili normal, ALT normal, alk-phos slightly elevated Lactic acid is elevated at 6.5 Troponin retrospectively added to initial blood work and initial troponin was slightly positive at 0.83. On repeat is 0.104 BNP is 3060 Procalcitonin is not elevated Independently reviewed EKG: Sinus tachycardia, rate of 108 no significant ischemic changes Imaging studies independently reviewed: Chest x-ray is unremarkable CT scan of the head shows no intracranial hemorrhage CT scan of the spine shows no loosened hardware and no new fractures Treatments: Re-evaluations: 9:00 p.m. When lactic acid returns elevated workup is expanded to include infectious etiology. Patient is not hypotensive, afebrile, not requiring oxygen, slightly tachycardic Discussion: 74-year-old gentleman found passed out on his front porch, the neighbor called 911. He has no recollection of events. No obvious infectious source identified, lactic acid is elevated unclear this is sepsis or simply dehydration. With concern for sepsis he was given fluids as well as ceftriaxone and vancomycin. Workup still does not suggest an infectious etiology with absence of pneumonia, no abdominal pain, urine does not suggest urinary tract infection. He does not still have a headache no nuchal rigidity, I do not suspect meningitis Acute kidney injury with creatinine at 2.5. Remainder of electrolytes are unremarkable. Initial troponin elevated repeat increased elevated. No chest pain. No acute ST-elevation on EKG. Heparin will be started after normal head CT is confirmed Head and neck CT scans done for unwitnessed fall did not show evidence of mass, stroke, intracranial hemorrhage or new cervical spine injury. Positive concussion based on retrograde amnesia and continued perseverating questions At a time care is transferred to , transfer discussions indicate no beds at [facility], currently on wait list at [facility] in [address], still waiting to contact Corine izaguirre and after the [facility] Patient has been accepted for transfer to [facility] with Dr. Herbert Hines hospitalist who has graciously accepted the patient for inpatient admission. Discharge Plan Departure Patient Disposition: [facility] Clinical Impression: Syncope and collapse, Non-ST elevation OK (NSTEMI) Acute kidney failure Qualifiers: Acute renal failure type: unspecified Qualified Code(s): N17.9 - Acute kidney failure, unspecified Concussion Qualifiers: Encounter type: initial encounter Loss of consciousness presence/duration: with LOC of 30 min or less Qualified Code(s): S06.0X1A - Concussion with loss of consciousness of 30 minutes or less, initial encounter Prescriptions: No Action duloxetine 30 mg capsule,delayed release(DR/EC) See Rx Instructions .ROUTE .COMPLEX Qty: 180 3RF Dose Instruction: TAKE 1 CAPSULE TWICE DAILY Rx Instructions: TAKE 1 CAPSULE TWICE DAILY tamsulosin 0.4 mg capsule See Rx Instructions .ROUTE .COMPLEX Qty: 180 3RF Dose Instruction: TAKE 2 CAPSULES BY MOUTH EVERY EVENING Rx Instructions: TAKE 2 CAPSULES BY MOUTH EVERY EVENING cyclobenzaprine 10 mg tablet 10 mg PO TID PRN (Reason: muscle spasm) Qty: 30 0RF gabapentin 600 mg tablet 1,800 mg PO BID Qty: 180 12RF furosemide 20 mg tablet 20 mg PO DAILY PRN (Reason: edema) Qty: 90 3RF amlodipine 10 mg tablet See Rx Instructions .ROUTE .COMPLEX Qty: 90 3RF Dose Instruction: TAKE 1 TABLET BY MOUTH EVERY DAY Rx Instructions: TAKE 1 TABLET BY MOUTH EVERY DAY atorvastatin 20 mg tablet 20 mg PO DAILY Qty: 90 3RF glipizide 5 mg tablet See Rx Instructions .ROUTE .COMPLEX Qty: 90 3RF Dose Instruction: TAKE 1/2 TABLET BY MOUTH TWICE DAILY Rx Instructions: TAKE 1/2 TABLET BY MOUTH TWICE DAILY metoprolol succinate 50 mg tablet extended release 24 hr 50 mg PO BID Qty: 180 3RF hydrocodone-acetaminophen 5-325 mg tablet 1 tab PO Q6H PRN (Reason: pain) Qty: 8 0RF Referrals: Tommie Bar DO [Primary Care Provider, Family Practice]
[2025-07-27 21:05] LABS: Troponin I 0.083 ng/mL (0.01-0.034)
--- NOTE | 2025-07-27 21:07 | DI.CT.S_ITS ---
PROCEDURE: CT HEAD/BRAIN WO CON INDICATIONS: altered mental status TECHNIQUE: Noncontrast 4.5 mm thick angled axial sections acquired from the foramen magnum to the vertex, with coronal and sagittal reformats. For radiation dose reduction, the following was used: automated exposure control, adjustment of mA and/or kV according to patient size. COMPARISON: [facility], CT, CT HEAD/BRAIN WO CON, 03/17/2023, 15:42. FINDINGS: Image quality: Diagnostic. CSF spaces: Basal cisterns are patent. No extra-axial fluid collections. The ventricles are symmetric in size and shape. Brain: No intracranial bleeds or mass effect. There is cerebral volume loss, with resultant ventricular and sulcal prominence. There are periventricular and deep white matter chronic small vessel ischemic changes. There is intracranial internal carotid artery atherosclerosis. Skull and face: Calvarium and visualized facial bones appear intact, without suspicious lesions. Sinuses: Visualized sinuses and mastoids are clear. IMPRESSION: No acute intracranial pathology. Dictated by: Marek Sands M.D. on 07/27/2025 at 21:43 Approved by: Marek Sands M.D. on 07/27/2025 at 21:44
--- NOTE | 2025-07-27 21:07 | DI.CT.S_ITS ---
PROCEDURE: CT CERVICAL SPINE WO CON INDICATIONS: fall TECHNIQUE: Noncontrast 3 mm thick sections acquired from the skull base to the T4 level. Sagittal and coronal reformats were then constructed. For radiation dose reduction, the following was used: automated exposure control, adjustment of mA and/or kV according to patient size. COMPARISON: [facility], CT, CT CERVICAL SPINE WO CON, 03/17/2023, 15:42. FINDINGS: Image quality: Excellent. Bones: Extensive surgical fusion of cervical spine from C3 through C6 level is seen . There is straightening of normal cervical lordosis. No gross hardware loosening or failure. No fractures or dislocations. Loss of disc height, degenerative endplate changes and bilateral facet hypertrophic changes are noted at C2-3 and C6-7 levels. Visualized superior ribs are intact. Soft tissues: Prevertebral soft tissues are normal in thickness. No paravertebral hematomas. No apical pneumothoraces. IMPRESSION: 1. No displaced fracture or traumatic subluxation. 2. Extensive ACDF changes in cervical spine. No gross hardware loosening or failure. Spondylitic changes at C2-3 and C6-7 levels. Dictated by: Marek Sands M.D. on 07/27/2025 at 21:44 Approved by: Marek Sands M.D. on 07/27/2025 at 21:46
[2025-07-27 21:10] LABS: Ammonia (NH3) < 9 umol/L (9-30)
[2025-07-27 21:10] LABS: Procalcitonin 0.105 ng/mL (<0.5)
[2025-07-27 21:14] LABS: Ethanol (ETOH) 169 mg/dL (<10); HEMOLYSIS < 15 (0-50)
[2025-07-27] MEDS: cefTRIAXone 2,000 MG in SODIUM CHLORIDE 0.9% 100 ML 200 MG IV (21:36)
[2025-07-27] MEDS: SODIUM CHLORIDE 0.9% 799 ML IV (21:37)
[2025-07-27] MEDS: VANCOMYCIN 1,000 MG/200 ML PIGGYBACK 200 MG IV (21:37)
[2025-07-27 21:55] LABS: Creatine Kinase 384 U/L (55-170)
[2025-07-27 22:08] LABS: NT-proBNP (BNP-Adult 18+) 3060 pg/mL (<125); Troponin I 0.104 ng/mL (0.01-0.034)
[2025-07-27 22:17] LABS: Reflexed Lactate in 2 Hours Y
[2025-07-27 22:33] LABS: Appearance Urine UA CLEAR; Bilirubin Urine UA NEGATIVE (NEGATIVE); Color Urine UA YELLOW; Glucose Urine UA NEGATIVE (Negative); Ketones Urine UA TRACE (NEGATIVE); Leukocyte Esterase Urine UA NEGATIVE (NEGATIVE); Nitrite Urine UA NEGATIVE (Negative); Occult Blood Urine UA 1+ (Negative); Protein Urine UA 3+ (Negative); Specific Gravity Urine UA 1.025 (1.000-1.035); Urobilinogen Urine UA 0.2 E.U./dL (0.2); pH Urine UA 5.5 (4.5-8.0)
[2025-07-27 22:38] LABS: Culture Indicated Urine Cult Not Indicated; Ur Creatinine Normal (Normal); Ur Specific Gravity Normal (Normal); Urine MDMA Negative (Negative); Urine Methamphetamines Negative (Negative); Urine THC Positive (Negative); Urine Tricyclic Antidepressant Negative (Negative); Urine pH Normal (Normal)
[2025-07-27] MEDS: HEPARIN 5,000 UNIT/ML VIAL 5000 UNIT IV (23:11)
[2025-07-27 23:13] LABS: Lactate 2HR (Lactic Acid Rflx) 4.7 mmol/L (0.7-2.1)
[2025-07-27 23:28] LABS: Coronavirus NL 63 Not Detected (Not Detect); SARS- CoV-2 Not Detected (Not Detecte)
[2025-07-27] MEDS: HEPARIN DRIP 25,000 UNIT/500 ML IV.SOLN 18.8 UNIT IV (23:28)
[2025-07-28] VITALS (9 sets, daily range): BP systolic 163–200; BP diastolic 72–97; PULSE 97–112; RESP 22–34; O2SAT 88–98
[2025-07-28 01:22] LABS: Lactate (Lactic Acid) 4.7 mmol/L (0.7-2.1)
[2025-07-28 02:43] LABS: Reflexed Lactate in 2 Hours Y
--- NOTE | 2025-07-28 02:59 | PC.NURSE ---
care and reort to ems at this time. summer the receiving nurse given report and notified of pt departure from unit
== END 2025-07-28 03:22 | disposition short-term general hospital (02) ==
PROVIDERS: Emergency Medicine; Emergency Provider Family Medicine; Family Provider Family Medicine; PCP Family Medicine
DX: S06.0X1A Concussion with loss of consciousness of 30 minutes or less, initial encounter (principal); R55 Syncope and collapse; I21.4 Non-ST elevation (NSTEMI) myocardial infarction; N17.9 Acute kidney failure, unspecified; S00.81XA Abrasion of other part of head, initial encounter; R00.0 Tachycardia, unspecified
CPT/HCPCS: 36415; 70450; 71045; 72125; 80053; 80305; 80320; 81001; 82140; 82550; 82962; 83605; 83880; 84145; 84484; 85025; 87040; 87633; 93005; 96365; 96367; 96375; 99284; 99285; J0696; J1644; J2560; J3375